=== PATIENT | female | born 1970 | race Caucasian/White ===

== ENCOUNTER 2025-04-30 09:41 | Outpatient (CLI) | payer MEDICARE, SELFPAY ==
--- OUTSIDE RECORDS SUMMARY | 2024-11-13 07:30 | XMS_ITS ---
Author Organization [employer] [facility] Address [address] [place] [address] Care Team Providers Care Food Service Manager Name Role Phone Marvel Grayson MD Unavailable [phone] REASON FOR VISIT B12 Medications Medication SIG [...] Active Encounters Encounter Location Date Provider Diagnosis [address] [address] 11/13/2024 Marvel Grayson Vitamin B12 deficien cy [...] Notes * Tiffanie SHABAZZDOB:1970 (54 yo F)Acc No.[id number]:11/13/2024 Progress Note Patient: Tiffanie Marinelli Provider: Mendoza Grayson M.D. :1970 A ge:54 Y S ex:Female Date:11/13/2024 Address:[address] [place], [place] [id number] Subjective: * Chief Complaints: * B 12 [...] deltoid * Procedure Codes: J 3420 Vitamin B-[id number] Therapeutic Injection * Follow Up: p clinton Billing Information: * Procedure Codes: J3420 Vitamin B-12. 59387 Therapeutic Injection. * Electronic signature of Alisson Grayson MD, MD on 04/30/2025 at 09:50 AM EDT Sign off status: Pending * Provider: Mendoza Grayson M.D. Date: 11/13/2024 Generated for Sarabjit zavala/Taisha/Abelino on: 0 04/30/2025 09:50 AM EDT
--- OUTSIDE RECORDS SUMMARY | 2025-02-07 17:30 | XMS_ITS ---
Author Organization [employer] [facility] Address [address] [place] [address] Care Team Providers Care Reel Repairer Name Role Phone Migration, Provider Unavailable Unavailable [...] Activ e REASON FOR VISIT [facility] Encounter Medications Medication SIG (Take, [...] review and pick correct strength-formulat ion from [facility]. If intended option is not shown, discontinue and re-order from Quick Search* 01/23/2023 Not-Taking/ PRN Vitamin D3 125 MCG CAPSULE 1 CAP(S) ORALLY ONCE A DAY; Duration: 90 DAYS *Please review and pick correct strength-formulat ion from [email or web address] options. If intended option is not shown, [...] review and pick correct strength-formulat ion from [email or web address] options. If intended option is not shown, [...] Active Encounters Encounter Location Date Provider Diagnosis [address] [place] [address] 02/07/2025 Provider Migration Plan Of Treatment No Information Progress Notes * Tiffanie GRANTDOB:1970 (54 yo F)Acc No.[id number]:02/07/2025 Patient: Tiffanie Marinelli Provider: :1970 A ge:54 Y S ex:Female Date:02/07/2025 Address:[address] [place] [address] Subjective: * Chief Complaints: * [facility] En[facility] * Medications: T akingBudesonide [...] *Please review and pick correct strength-formulation from [employer] options. If intended option is not shown, [...] *Please review and pick correct strength-formulation from [employer] options. If intended option is not shown, [...] *Please review and pick correct strength-formulation from [email or web address] options. If intended option is not shown, [...] *Please review and pick correct strength-formulation from [email or web address] options. If intended option is not shown, [...] *Please review and pick correct strength-formulation from [email or web address] options. If intended option is not shown, discontinue and re-order from Quick Search*Albuterol Sulfate (2.5 MG/3ML) 0.083% Nebulization Solution 3 mL by nebulizer every 6 hours Not-Taking/PRN tiZANidine HCl 2 MG Tablet 1 tab orally bedtime prn Not-Taking/PRN Proventil HFA 90 MCG/INH AEROSOL 2 PUFF(S) INHALED EVERY 6 HOURS , Notes to Pharmacist: *Please review and pick correct strength-formulation from [employer] options. If intended option is not shown, discontinue and re-order from Quick Search*Not-Taking/PRN Albuterol Sulfate (2.5 MG/3ML) 0.083% Nebulization Solution 3 mL by nebulizer every 6 hours * Allergies: C odeine: anaphylaxisUltram: anaphylaxisHaldol: anaphylaxisCymbalta: Side EffectsVraylar: Side EffectsDoxycycline: stomach upset * Electronic signature of Prov ider Migration on 04/30/2025 at 09:50 AM EDT Sign off status: Pending * Provider: Date: 0 02/07/2025 Generated for Sarabjit zavala/Taisha/Roseanneitting on: 04/30/2025 09:50 AM EDT
--- NOTE | 2025-04-30 09:47 | MR_ITS ---
FINAL REPORT TECHNIQUE: Multiplanar and multisequence MR imaging was obtained through the thoracic spine. CLINICAL HISTORY: STENT ARCHANA SCREWS L5-S1 THORACIC PAIN FINDINGS: There is normal alignment of the thoracic vertebral bodies in the sagittal plane. Vertebral body height is preserved. There is no bone marrow edema or pathologic marrow replacement. Signal intensity within the substance of the spinal cord is normal. Limited images of the lungs bilaterally show upper lobe predominant pulmonary nodules. Nodule in the left upper lobe measures 10 mm. There is a right paracentral T12-L1 disc protrusion with mild central stenosis and mild right neuroforaminal narrowing. There is a small left paracentral T6-7 disc protrusion with mild central stenosis. There is a right paracentral T7-8 disc protrusion with mass effect upon the thecal sac and right side of the spinal cord. There is mild central stenosis. IMPRESSION: Pulmonary nodules could be infectious, inflammatory, or neoplastic. Recommend chest CT follow-up. Multilevel disc protrusions as detailed above. Reviewed, Interpreted and Dictated by Nory Cobos MD Transcribed by Alise Miller Authenticated and [facility]
--- OUTSIDE RECORDS SUMMARY | 2025-04-30 09:49 | XMS_ITS | Clinical Summary ---
Author Organization [employer] [facility] Address [address] [place] [address] Phone Care Team Providers Care Sales Representative Metals Name Role Phone Becky CORONADO, Amie Primary Care Physician [phone] Conditions or Problems Problem Name Problem Code Onset Date Status Entry Date Provider Comment Standard Description Annotate Counseling for nutrition Z71.3 (ICD-10-CM ) 05/15 Inactive 05/20 Amie Pena MD Dietary counseling and surveillance Body mass index (BMI) 26.0-26.9; adult Z68.26 (ICD-10-CM ) 05/15 Active 05/20 Amie Pena MD Body mass index [BMI] 26.0-26.9, adult Body mass index (BMI) 26.0-26.9; adult Z68.26 (ICD-10-CM ) 05/06 Correction 05/06 Amie Pena MD Body mass index [BMI] 26.0-26.9, adult Body mass index (BMI) 26.0-26.9; adult Z68.26 (ICD-10-CM ) 05/06 Removed 05/06 Rea Saavedra APRN Body mass index [BMI] 26.0-26.9, adult Body mass index (BMI) 27.0-27.9; adult Z68.27 (ICD-10-CM ) 12/26 Correction 12/30 Rea Saavedra APRN Body mass index [BMI] 27.0-27.9, adult Bronchitis, acute 84267230 (SNOMED CT) 05/06 Inactive 05/06 Rea Saavdera APRN Acute bronchitis Herpes simplex, oral 683685619 (SNOMED CT) 05/06 Active 05/06 Rea Saavedra APRN Oral herpes simplex infection Body mass index (BMI) 27.0-27.9; adult Z68.27 (ICD-10-CM ) 12/26 Removed 12/30 Amie Pena MD Body mass index [BMI] 27.0-27.9, adult Body mass index (BMI) 26.0-26.9; adult Z68.26 (ICD-10-CM ) 11/01 Correction 11/01 Amie Pena MD Body mass index [BMI] 26.0-26.9, adult Tobacco User 939175004 (SNOMED CT) 12/26 Active 12/26 Amie Pena MD Tobacco user Body mass index (BMI) 26.0-26.9; adult Z68.26 (ICD-10-CM ) 11/01 Removed 11/01 Amie Pena MD Body mass index [BMI] 26.0-26.9, adult Counseling for nutrition Z71.3 (ICD-10-CM ) 11/01 Inactive 11/01 Amie Pena MD Dietary counseling and surveillance Body mass index (BMI) 28.0-28.9; adult Z68.28 (ICD-10-CM ) Correction Amie Pena MD Body mass index [BMI] 28.0-28.9, adult Hx of STEMI 986732866 (SNOMED CT) 10/24 Active 10/26 Charissa Breen APRN History of artificial heart valve S/P STENT Health maintenance 16549081 (SNOMED CT) Resolved Charissa Breen APRN History AND physical examination Health maintenance 30198224 (SNOMED CT) Removed Amie Pena MD History AND physical examination Body mass index (BMI) 28.0-28.9; adult Z68.28 (ICD-10-CM ) Removed Amie Pena MD Body mass index [BMI] 28.0-28.9, adult Counseling for nutrition Z71.3 (ICD-10-CM ) Inactive Amie Pena MD Dietary counseling and surveillance Body mass index (BMI) 27.0-27.9; adult Z68.27 (ICD-10-CM ) 05/13 Correction 05/14 Amie Pena MD Body mass index [BMI] 27.0-27.9, adult Counseling for nutrition Z71.3 (ICD-10-CM ) 05/13 Inactive 05/14 Nora Borrero APRN PMHNP Dietary counseling and surveillance Body mass index (BMI) 27.0-27.9; adult Z68.27 (ICD-10-CM ) 05/13 Removed 05/14 Nora Borrero APRN PMHNP Body mass index [BMI] 27.0-27.9, adult Body mass index (BMI) 27.0-27.9; adult Z68.27 (ICD-10-CM ) 04/08 Correction 04/08 Nora Borrero APRN, PMHNP Body mass index [BMI] 27.0-27.9, adult Body mass index (BMI) 27.0-27.9; adult Z68.27 (ICD-10-CM ) 04/08 Removed 04/08 Nora Borrero APRN, PMHNP Body mass index [BMI] 27.0-27.9, adult Body mass index (BMI) 28.0-28.9; adult Z68.28 (ICD-10-CM ) 02/08 Correction 02/09 Nora Borrero APRN, PMHNP Body mass index [BMI] 28.0-28.9, adult Vitamin deficiency 87714453 (SNOMED CT) 04/08 Active 04/08 Nora Borrero APRN PMHNP Vitamin deficiency Body mass index (BMI) 28.0-28.9; adult Z68.28 (ICD-10-CM ) 02/08 Removed 02/09 Nora Feck STUDIO OPERATIONS MANAGER, PMHNP Body mass index [BMI] 28.0-28.9, adult Body mass index (BMI) 29.0-29.9; adult Z68.29 (ICD-10-CM ) 10/29 Correction 10/30 Nora Feck STUDIO OPERATIONS MANAGER, PMHNP Body mass index [BMI] 29.0-29.9, adult High risk medication management 026813682 (SNOMED CT) 02/08 Active 02/08 Nora Feck STUDIO OPERATIONS MANAGER, PMHNP High risk drug monitoring Anxiety disorder 733059512 (SNOMED CT) 02/08 Active 02/08 Nora Feck STUDIO OPERATIONS MANAGER, PMHNP Anxiety disorder PTSD 44988276 (SNOMED CT) 02/08 Active 02/08 Nora Feck STUDIO OPERATIONS MANAGER, PMHNP Posttraumatic stress disorder Bipolar 1 disorder, mixed 46615024 (SNOMED CT) 02/08 Active 02/08 Nora Feck STUDIO OPERATIONS MANAGER, PMHNP Mixed bipolar I disorder Axillary mass 763509086 (SNOMED CT) 01/24 Active 01/25 Amie Pena MD Mass of axilla Palpitation s, recurrent 06946532 (SNOMED CT) 10/29 Resolved 10/29 Charissa Breen APRN Palpitations Cough 61063564 (SNOMED CT) 09/18 Resolved 09/18 Charissa Breen APRN Cough Acquired absence of both cervix and uterus 360211119 (SNOMED CT) 03/02 Resolved 02/05 Charissa Breen APRN Total hysterectomy Health maintenance 19024237 (SNOMED CT) 02/05 Resolved 02/05 Charissa Breen APRN History AND physical examination Body mass index (BMI) 29.0-29.9; adult Z68.29 (ICD-10-CM ) 10/29 Removed 10/30 Amie Pena MD Body mass index [BMI] 29.0-29.9, adult Subcutaneou s mass of back 676323410 (SNOMED CT) 10/29 Active 10/30 Amie Pena MD Mass of skin Palpitation s, recurrent 99291531 (SNOMED CT) 10/29 Active 10/30 Amie Pena MD Palpitations Family hx of coronary arterioscle rosis (CAD) 342217513 (SNOMED CT) 10/29 Active 10/29 Amie Pena MD Family history of coronary arterioscleros is Cancer, family hx 207527533 (SNOMED CT) 10/29 Active 10/29 Amie Pena MD Family history of malignant neoplasm Palpitation s, recurrent 70007763 (SNOMED CT) 10/29 Removed 10/29 Amie Pena MD Palpitations Body mass index (BMI) 29.0-29.9; adult Z68.29 (ICD-10-CM ) 09/30 Correction 09/30 Amie Pena MD Body mass index [BMI] 29.0-29.9, adult Joint pain, hand 792379138 (SNOMED CT) 10/29 Active 10/29 Amie Pena MD Pain of joint of hand Localized swelling on back 035914109 (SNOMED CT) 10/29 Active 10/29 Amie Pena MD Finding of back Body mass index (BMI) 29.0-29.9; adult Z68.29 (ICD-10-CM ) 09/30 Removed 09/30 Amie Pena MD Body mass index [BMI] 29.0-29.9, adult Body mass index (BMI) 29.0-29.9; adult Z68.29 (ICD-10-CM ) 05/03 Correction 05/03 Amie Pena MD Body mass index [BMI] 29.0-29.9, adult Cough 52571107 (SNOMED CT) 09/18 Removed 09/18 Amie Pena MD Cough Body mass index (BMI) 29.0-29.9; adult Z68.29 (ICD-10-CM ) 05/03 Removed 05/03 Amie Pena MD Body mass index [BMI] 29.0-29.9, adult Body mass index (BMI) 28.0-28.9; adult Z68.28 (ICD-10-CM ) 02/05 Correction 02/05 Amie Pena MD Body mass index [BMI] 28.0-28.9, adult Chronic pain 89560877 (SNOMED CT) 05/03 Active 05/03 Amie Pena MD Chronic pain 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 05/03 Amie Pena 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 850338298 (SNOMED CT) 03/02 Active 02/05 Amie Pena MD Total hysterectomy Acquired absence of both cervix and uterus 356691525 (SNOMED CT) 03/02 Removed 02/05 Amie Pena MD Total hysterectomy Body mass index (BMI) 28.0-28.9; adult Z68.28 (ICD-10-CM ) 02/05 Removed 02/05 Amie Pena MD Body mass index [BMI] 28.0-28.9, adult Health maintenance 17393006 (SNOMED CT) 02/05 Removed 02/05 Amie Pena MD History AND physical examination Exposure to hepatitis C 057640148 (SNOMED CT) 02/05 Active 02/05 Amie Pena MD Exposure to Hepatitis C virus COPD 41870899 (SNOMED CT) 02/05 Active 02/05 Amie Pena MD Chronic obstructive pulmonary disease Asthma 196031878 (SNOMED CT) 02/05 Active 02/05 Amie Pena MD Asthma Medications Medication Instructions Start Date Stop Date Generic Name NDC Provider CEPHALEXIN 500 MG CAPS Take 1 capsule by mouth three times a day cephalexin 07890730441 Amie Pena MD ACYCLOVIR 5 % CREA Apply 1 a small amount to affected area five times a day for four days. START SOON POSSIBLE AFTER ONSET OF COLD SORES. acyclovir 72251398175 Rea Saavedra APRN ZITHROMAX Z-KISHAN 250 MG TABS Take 2 tablet by mouth once a day as directed 2 tablets for 1 day then 1 tablet once a day for 4 days. TAKE WITH FOOD. azithromycin 18494199991 Rea Saavedra APRN TIZANIDINE HCL 2 MG TABS TAKE 1 TABLET BY MOUTH THREE TIMES A DAY NEEDED FOR MUSCLE PAIN. 02/13 tizanidine 05588011438 Mickie Florence APRN TIZANIDINE HCL 2 MG TABS TAKE 1 TABLET BY MOUTH 3 TIMES A DAY NEEDED FOR MUSCLE PAIN tizanidine 58647213104 Amie Pena MD TIZANIDINE HCL 2 MG TABS TAKE 1 TABLET BY MOUTH THREE TIMES A DAY NEEDED FOR MUSCLE PAIN. tizanidine 77992106814 Amie Pena MD ATIVAN 0.5 MG TABS Take half or 1 tablet twice a day as needed for anxiety. lorazepam 09963541862 Amie Pena MD ISOSORBIDE MONONITRATE ER 60 MG [id number] Take 1 tablet by mouth every morning isosorbide mononitrate 42173658639 Rea Saavedra APRN ALBUTEROL SULFATE HFA 108 (90 Base) MCG/ACT AERS Inhale 2-4 puff every four hours as needed albuterol sulfate 56627105554 Amie Pena MD TRAZODONE HCL 50 MG TABS 0.5-2 tablet by mouth at bedtime as directed : take approx 30min prior to bedtime as needed 11/01 trazodone 26197773974 Nora Borrero APRN, PMHNP LINZESS 145 MCG CAPS Take 1 capsule by mouth once a day 11/01 linaclotide 32326829635 Amie Pena MD SHINGRIX 50 MCG/0.5ML SUSR Inject 1/2 ml intramuscularly single dose 11/01 varicella-zoster ge-as01b (pf) 71040239079 Amie Pena MD LATUDA 40 MG TABS Take 1 tablet by mouth every night with meals take with at least 250 calories 11/01 lurasidone 56168580466 Nora Feck STUDIO OPERATIONS MANAGER, PMHNP ALBUTEROL SULFATE HFA 108 (90 Base) MCG/ACT AERS Take 2 puff every four hours as needed 11/01 albuterol sulfate 77464710944 Erinn Casanova CMA TOPIRAMATE 25 MG TABS topiramate 74506238964 Na Son MA NITROGLYCERIN 0.4 MG SUBL nitroglycerin 39649094927 Na paiz MA IBUPROFEN 800 MG TABS TAKE 1 TABLET BY MOUTH EVERY 8 HOURS NEEDED 10/26 ibuprofen 78644406711 Amie Pena MD METOPROLOL TARTRATE 25 MG TABS metoprolol tartrate 72908201541 Charissa Breen APRN ATORVASTATIN CALCIUM 80 MG TABS atorvastatin 94038584030 Charissa Breen APRN BRILINTA 90 MG TABS BID ticagrelor 16339200107 Charissa Breen APRN TIZANIDINE HCL 2 MG TABS Take 1 tablet by mouth three times a day as needed for pain TAKE 1 TABS THREE TIMES A DAY NEEDED FOR MUSCLE PAIN. 10/23 tizanidine 11463026108 Amie Pena MD TIZANIDINE HCL 2 MG TABS TAKE 1 TABLET BY MOUTH THREE TIMES A DAY NEEDED FOR MUSCLE PAIN. tizanidine 67580063432 Amie Pena MD LORATADINE 10 MG TABS TAKE 1 TABLET BY MOUTH 1 TIME A DAY NEEDED FOR ALLERGIES loratadine 15436434994 Amie Pena MD IBUPROFEN 800 MG TABS TAKE 1 TABLET BY MOUTH EVERY 8 HOURS NEEDED ibuprofen 33276374098 Amie Pena MD IBUPROFEN 800 MG TABS TAKE 1 TABLET BY MOUTH EVERY 8 HOURS NEEDED ibuprofen 02119391756 Amie Pena MD CLARITIN 10 MG TABS Take 1 tablet by mouth once a day as needed 09/25 loratadine 16662386472 Ernin Casanova MICROCOMPUTER SUPPORT SPECIALIST LORATADINE 10 MG TABS TAKE 1 TABLET BY MOUTH 1 TIME A DAY NEEDED FOR ALLERGIES loratadine 23836037290 Amie Pena MD VITAMIN B-12 1000 MCG TABS Take 1 tablet by mouth once a day cyanocobalamin (vitamin b-12) 65680732046 Amie Pena MD TIZANIDINE HCL 2 MG TABS TAKE 1 TABS THREE TIMES A DAY NEEDED FOR MUSCLE PAIN. tizanidine 99488649988 mAie Pena MD SHINGRIX 50 MCG/0.5ML SUSR Inject 1/2 ml intramuscularly single dose varicella-zoster ge-as01b (pf) 26211611630 Amie Pena MD TIZANIDINE HCL 2 MG TABS Take 1 tablet by mouth three times a day as needed for pain TAKE 1 TABS THREE TIMES A DAY NEEDED FOR MUSCLE PAIN. tizanidine 14949343225 Amie Pena MD LINZESS 145 MCG CAPS Take 1 capsule by mouth once a day linaclotide 03896251472 Amie Pena MD VITAMIN B-12 1000 MCG TABS Take 1 tablet by mouth once a day cyanocobalamin (vitamin b-12) 56795145165 Amie Pena MD HYDROCODONE-KIRSTIE TAMINOPHEN 7.5-325 MG TABS Take 1 tablet by mouth every six hours as needed hydrocodone-acet aminophen 33690933207 Garima Fitzpatrick MA GABAPENTIN 300 MG CAPS Take 1 capsule by mouth twice a day as needed for pain gabapentin 21488303295 Garima Fitzpatrick MA TRAZODONE HCL 50 MG TABS 0.5-2 tablet by mouth at bedtime as directed : take approx 30min prior to bedtime as needed trazodone 73485273676 Nora Feck STUDIO OPERATIONS MANAGER, PMHNP QUETIAPINE FUMARATE 50 MG TABS 0.5-2 tablet by mouth at bedtime as needed 05/05 quetiapine 45849153114 Nora Feck STUDIO OPERATIONS MANAGER, PMHNP QUETIAPINE FUMARATE 50 MG TABS TAKE 0.5-2 TABLET BY MOUTH AT BEDTIME NEEDED quetiapine 43147780547 Nora Feck STUDIO OPERATIONS MANAGER, PMHNP GABAPENTIN 300 MG CAPS Take 1 capsule by mouth twice a day as needed for pain gabapentin 69646432455 Allison Wild MA HYDROCODONE-KIRSTIE TAMINOPHEN 7.5-325 MG TABS Take 1 tablet by mouth every six hours as needed hydrocodone-acet aminophen 69729779274 Allison Wild MA TIZANIDINE HCL 2 MG TABS Take 1 tablet by mouth three times a day as needed 03/04 tizanidine 43438542684 Charissa Breen APRN TIZANIDINE HCL 2 MG TABS TAKE 1 TABS THREE TIMES A DAY NEEDED FOR MUSCLE PAIN. tizanidine 12727081885 Amie Pena MD QUETIAPINE FUMARATE 50 MG TABS 0.5-2 tablet by mouth at bedtime as needed quetiapine 41199983694 Nora Jesúskyara STUDIO OPERATIONS MANAGER, PMHNP LATUDA 40 MG TABS Take 1 tablet by mouth every night with meals take with at least 250 calories lurasidone 61951269148 Nora Jesúskyara STUDIO OPERATIONS MANAGER, PMHNP IBUPROFEN 800 MG TABS Take 1 tablet by mouth every eight hours as needed 01/24 ibuprofen 90777678021 Amie Pena MD IBUPROFEN 800 MG TABS TAKE 1 TABLET BY MOUTH EVERY 8 HOURS NEEDED ibuprofen 43689525510 Amie Pena MD INCRUSE ELLIPTA 62.5 MCG/ACT AEPB Use 1 once a day umeclidinium 99379771480 Amie Pena MD TIZANIDINE HCL 2 MG TABS Take 1 tablet by mouth three times a day as needed tizanidine 56050379850 Charissa Breen APRN SYMBICORT 160-4.5 MCG/ACT AERO Use 2 twice a day budesonide-formo terol 03092799911 Amie Pena MD CLARITIN 10 MG TABS Take 1 tablet by mouth once a day as needed loratadine 15622214347 [facility] ALBUTEROL SULFATE HFA 108 (90 Base) MCG/ACT AERS Take 2 puff every four hours as needed albuterol sulfate 95064667492 Erinn Edilberto CMA IBUPROFEN 800 MG TABS Take 1 tablet by mouth every eight hours as needed ibuprofen 07444705902 Amie Pena MD HYDROCODONE-KIRSTIE TAMINOPHEN 5-325 MG TABS Take 1 tablet by mouth every six hours as needed hydrocodone-acet aminophen 24385933373 Amie Pena MD GABAPENTIN 300 MG CAPS Take 1 capsule by mouth at bedtime as needed for pain gabapentin 88026861348 Erinn Casanova [facility] TIZANIDINE HCL 2 MG TABS TAKE 1 TABS THREE TIMES A DAY NEEDED FOR MUSCLE PAIN. TIZANIDINE HCL 03425794058 Amie Pena MD TIZANIDINE HCL 2 MG TABS take 1 capsule three times a day as needed for muscle pain. TIZANIDINE HCL 91909274231 Amie Pena MD IBUPROFEN 800 MG TABS TAKE 1 TABLET BY MOUTH EVERY 8 HOURS NEEDED IBUPROFEN 72511585817 Amie Pena MD ZANAFLEX 4 MG ORAL CAPSULE take 1 capsule three times a day as needed for muscle pain. TIZANIDINE HCL 02849014260 Amie Pena MD SYMBICORT 160-4.5 MCG/ACT AERO USE 2 INHALATIONS TWICE A DAY BUDESONIDE-FORMO TEROL FUMARATE 72051093022 Amie Pena MD INCRUSE ELLIPTA 62.5 MCG/ACT AEPB USE 1 INHALATION ONCE A DAY UMECLIDINIUM BROMIDE 79007916571 Amie Pena MD SPIRIVA HANDIHALER 18 MCG CAPS USE 1 INHALATION ONCE A DAY 09/30 TIOTROPIUM BROMIDE MONOHYDRATE 30864789186 Amie Pena MD BREO ELLIPTA 100-25 MCG/ACT AEPB USE 1 INHALATION ONCE A DAY 09/30 FLUTICASONE FUROATE-VILANTER OL 07660329701 Amie Pena MD ZITHROMAX Z-KISHAN 250 MG TABS TAKE 2 TABLETS BY MOUTH ON DAY 1 THEN 1 TABLET BY MOUTH DAILY FOR 4 DAYS (DAY 2-5) 09/23 AZITHROMYCIN 30531706049 Amie Pena MD HYDROCODONE-KIRSTIE TAMINOPHEN 5-325 MG TABS take 1 tablet every 6 hours as needed for pain. HYDROCODONE-ACET AMINOPHEN 46686356137 Amie Pena MD ALBUTEROL SULFATE HFA 108 (90 Base) MCG/ACT AERS TAKE 2 PUFFS EVERY 4 HOURS NEEDED FOR WHEEZING ALBUTEROL SULFATE 59665185447 Amie Pena MD NYSTATIN 393900 UNIT/GM CREA APPLY THIN FILM 3 TIMES A DAY FOR 2 WEEKS 02/19 NYSTATIN 29640852343 Amie Pena MD CLARITIN 10 MG TABS TAKE 1 TABLET BY MOUTH 1 TIME A DAY NEEDED FOR ALLERGIES LORATADINE 89025196423 Amie Pena MD SPIRIVA HANDIHALER 18 MCG CAPS USE 1 INHALATION ONCE A DAY TIOTROPIUM BROMIDE MONOHYDRATE 79919809531 Amie Pena MD BREO ELLIPTA 100-25 MCG/ACT AEPB USE 1 INHALATION ONCE A DAY FLUTICASONE FUROATE-VILANTER OL 37449792183 Amie Pena MD Medications Administered No information available. Allergies, Adverse Reactions, Alerts Allergy Name Reaction Description Start Date Severity Statu s Provider DOXYCYCLINE Critical Active Amie evans MD PENICILLIN Critical Active Amie angeles MD ULTRAM Critical Active Amie garcia MD VRAYLAR Critical Active Amie garcia MD HALDOL Critical Active Amie garcia MD CODEINE Critical Active Amie garcia MD Results Date Name Value Unit Range Flag Description Lab Report: LIPID PANEL WITH REFLEX TO DIRECT LDL, LIPID PANEL WITH REFL ... HEP C AB NON-REACTIVE NON-REACTIV E N Hepatitis C virus Ab [Presence] in Serum HB CORE IGM NON-REACTIVE NON-REACTIV E N Hepatitis B virus core IgM Ab [Presence] in Serum HBSAG NON-REACTIVE NON-REACTIV E N Hepatitis B virus surface Ag [Units/volume] in Serum ANTI-HAV IGM NON-REACTIVE NON-REACTI V E N Hepatitis A virus IgM Ab [Presence] in Serum Lab Report: COMPREHENSIVE ME TABOLIC PANEL, SED RATE BY MODIFIED WESTERGR ... RA FACTOR <14 IU/mL [iU]/mL <14 N Rheumatoi d factor [Units/volume] in Serum or Plasma TORRES HOMO PAT NEGATIVE NEGATIVE N TORRES (a ntinuclear antibody) pattern, homogeneous ESR 11 mm/h < OR = 30 N Erythrocyte sedimentation rate by Westergren method Lab Report: LIPID PANEL WITH REFLEX TO DIRECT LDL, LIPID PANEL WITH REFL ... HGBA1C 5.5 % OF TOTAL HGB % <5.7 N Hemoglobin A1c/Hemoglobin, total in Blood - % VITAMIN D3 44 pg/mL 1,25-calci trol, serum VIT D 1,25OH 44 18-72 vitamin D 1,25-dihydroxy, serum FOLATE 9.3 ng/mL N Folate [Mass/volume] in Serum or Plasma BILI INDIREC 0.4 MG/DL (CALC) mg/dL 0.2-1.2 N bilirubin, serum , indirect BILI DIRECT 0.1 mg/dL < OR = 0.2 N Biliru bin.direct [Mass/volume] in Serum or Plasma TSH 0.81 u[iU]/m L N Thyrotropin [Units/volume] in Serum or Plasma B12 369 pg/mL 200-1100 N Cobalamin (V itamin B12) [Mass/volume] in Serum or Plasma BASO % MANU 0.5 % N basophils as percent of blood leukocytes, manual count EOS % MANU 2.3 % N eosinophil s as percent of blood leukocytes, manual count MONOCYTE % 6.7 % N Monocytes/ 100 leukocytes in Blood by Automated count LYMPH% P BLD 32.6 % N lymphocy pat as percent of blood leukocytes PMN % 57.9 % N Neutrophils/1 00 leukocytes in Blood by Automated count ABS BASOS 48 {Cells} /uL 0-200 N Basophils [#/volume] in Blood ABS EOS 221 {Cells} /uL 15-500 N Eosinophils [#/volume] in Blood ABS MONOS 643 {Cells} /uL 200-950 N Monocytes [#/volume] in Blood ABSLYMPHCT 3130 {Cells} /uL 850-3900 N Lymphocytes [#/volume] in Blood ABS NEUTROPH 5558 CELLS/UL 10*3/uL 6531-2958 N Neutrophils [#/volume] in Blood MPV 9.8 fL 7.5-12.5 N Platelet anette n volume [Entitic volume] in Blood by Sarah PLATELETK/UL 411 THOUSAND/UL 10*3/uL 140-400 H platelet count RDW 13.2 % 11.0-15.0 N Erythrocyte distribution width [Ratio] by Automated count OL-MCHC 33.3 g/dL 32.0-36.0 N mean corpus cular hemoglobin concentration, rbc MCH 29.6 pg 27.0-33.0 N MCH [Entiti c mass] by Automated count MCV 88.7 fL 80.0-100.0 N MCV [Entit ic volume] by Automated count HCT 40.8 % 35.0-45.0 N Hematocrit [Volume Fraction] of Blood by Automated count HGB 13.6 g/dL 11.7-15.5 N Hemoglobin [Mass/volume] in Blood RBC M/UL 4.60 MILLION/UL 10*6/uL 3.80-5.10 N red blood count WBC CT BLOOD 9.6 10*3/uL 3.8-10.8 N leukocy te count, blood SGPT (ALT) 16 U/L 6-29 N Alanine aminotransferase [Enzymatic activity/volume] in Serum or Plasma SGOT (AST) 19 U/L 10-35 N Aspartate aminotransferase [Enzymatic activity/volume] in Serum or Plasma ALK PHOS 106 U/L 37-153 N Alkaline phosphatase [Enzymatic activity/volume] in Blood BILI TOTAL 0.5 mg/dL 0.2-1.2 N Bilirubin. total [Mass/volume] in Serum or Plasma A/G RATIO 1.7 (calc) 1.0-2.5 N Albumin/ Globulin [Mass Ratio] in Serum or Plasma GLOBULIN TOT 2.5 G/DL (CALC) g/dL 1.9-3.7 N Globulin [Mass/volume] in Serum ALBUMIN EOP 4.3 g/dL 3.6-5.1 N Albumin [Mass/volume] in Serum or Plasma by Electrophoresis PROTEIN, TOT 6.8 g/dL 6.1-8.1 N Protein [Mass/volume] in Serum or Plasma CALCIUM 9.3 mg/dL 8.6-10.4 N Calcium [Moles/volume] in Serum or Plasma CO2 23 mmol/L 20-32 N Carbon dioxid e, total [Moles/volume] in Venous blood CHLORIDE BLD 108 mmol/L 98-110 N chloride , blood POTASSIUM 4.3 mmol/L 3.5-5.3 N Potassium [Moles/volume] in Serum or Plasma SODIUM 140 mmol/L 135-146 N Sodium [Moles/volume] in Serum or Plasma BUN/CREAT NOT APPLICABLE (calc) 6-22 Urea nitrogen/Creatinine [Mass Ratio] in Serum or Plasma EGFR IF AFA 116 mL/min/ 1.73m2 >OR = 60 N Glomerular filtration rate/1.73 sq M.predicted among blacks [Volume Rate/Area] in Serum, Plasma or Blood by Creatinine-based formula (MDRD) EGFR 100 mL/min/ 1.73m2 >OR = 60 N Glomerular filtration rate/1.73 sq M.predicted [Volume Rate/Area] in Serum, Plasma or Blood by Creatinine-based formula (MDRD) CREATININE 0.67 mg/dL 0.50-1.05 N Creatini ne [Mass/volume] in Serum or Plasma BUN 9 mg/dL 7-25 N Urea nitrogen [Mass/volume] in Serum or Plasma GLUCOSE SER 76 mg/dL 65-99 N Glucose [Mass/volume] in Serum or Plasma NON-HDL CHOL 90 MG/DL (CALC) mg/dL <130 N cholesterol, non-HDL, total CHOL/HDL % 3.0 (calc) <5.0 N cholest ja/HDL ratio, serum, percent LDL 70 MG/DL (CALC) mg/dL N Cholesterol in L DL [Mass/volume] in Serum or Plasma - mg/dL TRIGLYC TOT 122 mg/dL <150 N Triglycer margarita [Mass/volume] in Serum or Plasma - mg/dL HDL 46 mg/dL >OR = 50 L Cholesterol in HDL [Mass/volume] in Serum or Plasma - mg/dL CHOLESTEROL 136 mg/dL <200 N Cholester ol [Mass/volume] in Serum or Plasma - mg/dL Lab Report: DRUG MONITOR, PA BRIDGETT 1, SCREEN, URINE, DRUG MONITOR, BUP, SCR ... PHENCYCLIDIN NEGATIVE ng/mL <25 N Phencyc lidine [Presence] in Urine OXYCODONE NEGATIVE <100 N Oxycodone urine screening METHADONEURN NEGATIVE <100 N Methado ne [Presence] in Urine by Screen method MARIJUANAURN POSITIVE <20 A Marijua na, cannabinoid screen Urine COCAINE UR NEGATIVE <150 N cocaine, urine BENZODIAZ UR NEGATIVE <100 N Benzodi azepines [Presence] in Urine AMPHETAMI UR NEGATIVE <500 N Ampheta mines [Presence] in Urine Plan of Care Type Date Detail Referral [employer] ([employer]) Referral General Surgery Referral General Referral excluded fr om report: Referral Cardiology Refer ral General Referral Pain Management Referral General Referral excluded fr om report: Referral Pain Management Referral General Referral excluded fr om report: Pending order T1 Drug Screen S TANDARD-Urine w/o Confirmation Pending order T1 B12 Pending order T1 CBC with diff Pending order T1 CMP Pending order T1 Lipid Panel Pending order T1 TSH reflex to free T4 Pending order T1 B12 Pending order T1 CBC with diff Pending order T1 CMP Pending order T1 Folic Acid Pending order T1 Hepatic Funct ion Panel Pending order T1 HGBA1c Pending order T1 Lipid Panel Pending order T1 TSH reflex to free T4 Pending order T2 Vitamin D 25 Dihydroxy Pending order T1 CBC with diff Pending order T1 CMP Pending order T2 TORRES Pending order T2 Rheumatoid Fa ctor Quant Pending order T1 Sedimentation Rate RBC Pending order X-Ray Thoracic S pine Pending Order exclud ed from report: Pending order T1 CBC with diff Pending order T1 CMP Pending order T1 HGBA1c Pending order T1 Lipid Panel Pending order T1 TSH reflex to free T4 Pending order T1 Acute Hepatit s Panel Pending order Injection(s) Ord ered Pending order Patient Pay- COV [id number] Pending order X-Ray Chest Pending order T1 Drug Screen S TANDARD-Urine w/o Confirmation Pending order T1 CBC with diff Pending order T1 CMP Pending order T1 Acute Hepatit s Panel Pending order T1 Lipid Panel Pending order T1 TSH reflex to free T4 Patient education Patient Educat ion Given Patient education Patient Educat ion Given Patient education Patient Educat ion Given Patient education Patient Educat ion Given Patient education Patient Educat ion Given Patient education Patient Educat ion Given Patient education Patient Educat ion Given Patient education Patient Educat ion Given Patient education Patient Educat ion Given Patient education Patient Educat ion Given Procedures Code Procedure Name Date Entry Date [facility][id number] Medication Reconciliation Inj Order Injection(s) Ordered [id number] 340B Depo medrol 80mg/ml Injection 2021/05/15 CPT-3074F Most recent systolic blood pressure <130 mm Hg CPT-3078F Most recent diastoli c blood pressure <80 mm Hg [id number] Medication Reconciliation CPT-3074F Most recent systolic blood pressure <130 mm Hg CPT-3078F Most recent diastoli c blood pressure <80 mm Hg [id number] Giving encouragement to exercise [id number] Dietary management education/guidance/counseling [place]PT II 4004F Patient screened for tobacco use and received tobacco cessation intervention [id number] Medication Reconciliation CPT-1159F Medication list docu mented in medical record CPT-1160F Review of all medica tions by a prescribing practitioner [facility] G1543 T1 Drug Screen STAND RACHELE-Urine w/o Confirmation [id number] Giving encouragement to exercise SCT-[id number] Medication Reconciliation CPT-3074F Most recent systolic blood pressure <130 mm Hg CPT-3078F Most recent diastoli c blood pressure <80 mm Hg CPT-1159F Medication list docu mented in medical record CPT-1160F Review of all medica tions by a prescribing practitioner [facility] 927 T1 B12 [facility] 6399 T1 CBC with diff [facility] 40922 T1 CMP [facility] 10885 T1 Lipid Panel [facility] 12549 T1 TSH reflex to free T4 202 10/06/00 Inj Order Injection(s) Ordered [id number] 340B Vitamin B-12 Injection CPT-84435 Cologuard 51840 Fluzone Quadrivalent CPT-99129 IMADM >18YR IM ROUTE 1ST VAC/TOXOID 06/17 SCT-[id number] Medication Reconciliation CPT-3074F Most recent systolic blood pressure <130 mm Hg CPT-3078F Most recent diastoli c blood pressure <80 mm Hg CPT-1159F Medication list docu mented in medical record CPT-1160F Review of all medica tions by a prescribing practitioner SCT-[id number] Medication Reconciliation CPT-3075F Most recent systolic blood pressure 130-139 mm Hg CPT-3079F Most recent diastoli c blood pressure 80-89 mm Hg CPT-3075F Most recent systolic blood pressure 130-139 mm Hg CPT-3079F Most recent diastoli c blood pressure 80-89 mm Hg CPT-1159F Medication list docu mented in medical record SCT-[id number] Medication Reconciliation [facility] 927 T1 B12 [facility] 6399 T1 CBC with diff [facility] 69991 T1 CMP [facility] 466 T1 Folic Acid [facility] 32114 T1 Hepatic Function Panel 20 23/04/06 [facility] 496 T1 HGBA1c [facility] 21256 T1 Lipid Panel [facility] 67176 T1 TSH reflex to free T4 202 09/10/05 [facility] 59798 T2 Vitamin D 25 Dihydroxy 20 23/04/06 CPT-3075F Most recent systolic blood pressure 130-139 mm Hg CPT-3078F Most recent diastoli c blood pressure <80 mm Hg SCT-[id number] Medication Reconciliation GEN SX GEN General Surgery Referral General SCT-[id number] Medication Reconciliation CPT-3074F Most recent systolic blood pressure <130 mm Hg CPT-3079F Most recent diastoli c blood pressure 80-89 mm Hg CPT-1159F Medication list docu mented in medical record CPT-1160F Review of all medica tions by a prescribing practitioner SCT-[id number] Giving encouragement to exercise SCT-[id number] Current every day smoker 20 22/01/04 SCT-[id number] Smoking cessation education CPT-3075F Most recent systolic blood pressure 130-139 mm Hg CPT-3079F Most recent diastoli c blood pressure 80-89 mm Hg SCT-[id number] Medication Reconciliation SCT-[id number] Giving encouragement to exercise CPT-1159F Medication list docu mented in medical record X-Ray Hand Right X-Ray Hand Right CPT-1160F Review of all medica tions by a prescribing practitioner PAIN GEN Pain Management Referral General X-Ray Thoracic Spine X-Ray Thoracic Spine [facility] 6399 T1 CBC with diff [facility] 18787 T1 CMP [facility] 249 T2 TORRES [facility] 4418 T2 Rheumatoid Factor Quant 2 [facility] 809 T1 Sedimentation Rate RBC 20 24/10/25 CARD GEN Cardiology Referral General CPT-3075F Most recent systolic blood pressure 130-139 mm Hg CPT-3079F Most recent diastoli c blood pressure 80-89 mm Hg SCT-[id number] Medication Reconciliation SCT-[id number] Giving encouragement to exercise CPT-1159F Medication list docu mented in medical record CPT-1160F Review of all medica tions by a prescribing practitioner SCT-[id number] Current every day smoker 20 23/09/27 SCT-[id number] Smoking cessation education SCT-[id number] Smoking cessation education 55868 Flulaval Quadrivalent 09/30 CPT-39500 IMADM >18YR IM ROUTE 1ST VAC/TOXOID 09/30 [id number] 340B Depo medrol 80mg/ml Injection 09/30 Inj Order Injection(s) Ordered [facility] 6399 T1 CBC with diff [facility] 41903 T1 CMP [facility] 496 T1 HGBA1c [facility] 33543 T1 Lipid Panel [facility] 69909 T1 TSH reflex to free T4 202 09/03/27 [facility] 08282 T1 Acute Hepatits Panel 2020 CPT-1159F Medication list docu mented in medical record SCT-[id number] Medication Reconciliation SCT-[id number] Giving encouragement to exercise [facility] 82592 Patient Pay- COVID-19 09/18 X-Ray Chest X-Ray Chest SCT-[id number] Medication Reconciliation SCT-[id number] Giving encouragement to exercise CPT-3074F Most recent systolic blood pressure <130 mm Hg CPT-3078F Most recent diastoli c blood pressure <80 mm Hg PAIN GEN Pain Management Referral General CPT-1159F Medication list docu mented in medical record CPT-1160F Review of all medica tions by a prescribing practitioner [facility] F8318 T1 Drug Screen STAND RACHELE-Urine w/o Confirmation SCT-[id number] Medication Reconciliation Mammo ANAND Mammogram SCT-[id number] Giving encouragement to exercise [facility] 6399 T1 CBC with diff [facility] 96920 T1 CMP [facility] 32383 T1 Acute Hepatits Panel 2019 [facility] 65690 T1 Lipid Panel [facility] 68679 T1 TSH reflex to free T4 202 [id number] Colonoscopy Vital Signs Date Name Value Unit Description BMI (Body Mass Index) 26.74 kg/m2 Bod y Mass Index (Ratio) Body Temperature 98.0 [degF] temperat ure E&M Body Temperature 36.67 Carmelina temperat ure in centigrade E&M BP Diastolic 76 mm[Hg] blood pressu re, diastolic BP Systolic 113 mm[Hg] blood pressur e, systolic BSA (Body Surface Area) 2.09 b harjit surface area Heart Rate 89 /min pulse rate Height 71 [in_us] height E&M Height 180.34 cm height in cent imeters E&M Respiratory Rate 16 /min respirat ory rate E&M Weight Measured 86.82 kg weight in kilograms E&M Weight Measured 191 [lb_av] weight E& M Weight Measured 191 [lb_av] weight E& M Immunizations Vaccine Administration Date Standard Description CVX Co de Dose PRIVATE Flulaval Quadrivalent Prefilled Syringe 0.5 ML 6 mos - 64 years PRIVATE Flulaval Quadrivalent Prefilled Syringe 0.5 ML 6 mos - 64 years 150 0.5 mL COVID-19 mRNA (MOD) COVID-19 mRNA (MOD) 207 Unknown COVID-19 mRNA (MOD) COVID-19 mRNA (MOD) 207 Unknown Influenza Quad Inj Influenza Quad Inj 150 Unknown PPV23 PPV23 33 Unknown PRIVATE Fluzone Quadrivalent Intramuscular Suspension Prefilled Syringe 0.5 ML 6mos-64yrs PRIVATE Fluzone Quadrivalent Intramuscular Suspension Prefilled Syringe 0.5 ML 6mos-64yrs 150 0.5 mL COVID-19 mRNA (MOD) COVID-19 mRNA (MOD) 207 Unknown PRIVATE Fluzone Quadrivalent Intramuscular Suspension Prefilled Syringe 0.5 ML 6mos-64yrs PRIVATE Fluzone Quadrivalent Intramuscular Suspension Prefilled Syringe 0.5 ML 6mos-64yrs 150 0.5 mL PRIVATE Fluzone Quadrivalent Intramuscular Suspension Prefilled Syringe 0.5 ML 6mos-64yrs PRIVATE Fluzone Quadrivalent Intramuscular Suspension Prefilled Syringe 0.5 ML 6mos-64yrs 150 0.5 mL Advance Directives No information available.
--- OUTSIDE RECORDS SUMMARY | 2025-04-30 09:50 | XMS_ITS | Clinical Summary ---
Author Organization [facility] Address [address] [place] [address] Care Team Providers Care Bar Roller Name Role Phone Marvel Grayson MD Primary Care Provider [phone] Allergies Active Allergy Reactions Criticality Noted Date Comments Adhesive Tape Rash Low 07/03/2023 blisters Codeine Rash Low 07/31/2011 Duloxetine Hcl Mental Status Change Medium 10/25/2016 Doxycycline Nausea Only Low 04/04/2023 Haloperidol Lactate Rash Low 07/31/2011 Levofloxacin Unknown - Low Severity Low 04/04/2023 Nsaids GI Bleeding Medium 04/04/2023 Can tolerate if off blood thinners Penicillins Rash Low 07/31/2011 Tramadol Rash Low 10/02/2012 Cariprazine Unknown - High Severity High 10/25/2016 Medications omeprazole (PriLOSEC) 20 MG capsule Take 1 capsule by mouth As Needed. 09/27/2015 Active albuterol sulfate HFA 108 (90 Base) MCG/ACT inhaler Inhale 1-2 puffs. every 4 to 6 hours as needed 06/25/2014 Active tiZANidine (ZANAFLEX) 2 MG tablet TAKE 1 TO 2 TABLETS BY MOUTH EVERY 6 TO 8 HOURS NEEDED 60 tablet 07/17/2017 Active atorvastatin (LIPITOR) 80 MG tablet Take 1 tablet by mouth Every Night. 03/08/2023 Active gabapentin (NEURONTIN) 300 MG capsule Take 1 capsule by mouth 3 (Three) Times a Day. 03/08/2023 Active loratadine (CLARITIN) 10 MG tablet Take 1 tablet by mouth Daily. 02/05/2023 Active topiramate (TOPAMAX) 25 MG tablet Take 1 tablet by mouth Daily. 03/08/2023 Active metoprolol tartrate (LOPRESSOR) 25 MG tablet Take 1 tablet by mouth 2 (Two) Times a Day. Active HYDROcodone-alyson taminophen (NORCO) 7.5-325 MG per tablet Take 1 tablet by mouth Every 6 (Six) Hours As Needed for Moderate Pain. Active Fluticasone-Ume clidin-Vilant (Trelegy Ellipta) 100-62.5-25 MCG/ACT inhaler Inhale 1 puff Daily. Active varenicline (CHANTIX) 0.5 MG tablet Take 1 tablet by mouth 2 (Two) Times a Day. Active aspirin 81 MG EC tablet Take 1 tablet by mouth Daily. Active nitroglycerin (NITROSTAT) 0.[address] 1 tablet under the tongue Every 5 (Five) Minutes As Needed for Chest Pain. Take no more than 3 doses in 15 minutes. Active doxazosin (Cardura) 2 MG tablet Take 1 tablet by mouth Every Night. 30 tablet 1 04/04/2023 Active Methylnaltrexon e [place] (Relistor) 150 MG tablet Take 1 tablet by mouth Daily. Three tablets Active docusate sodium 100 MG capsule Take 1 capsule by mouth Daily. Active Naloxegol Oxalate (Movantik) 12.5 MG tablet Take 1 tablet by mouth Daily. 06/26/2023 Active ondansetron (ZOFRAN) 4 MG tablet Take 1 tablet by mouth As Needed. 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 04/04/2023 Hyperlipidemia LDL goal <70 04/04/2023 Tobacco use 10/25/2016 Chest pain 01/18/2016 Chronic low back pain 01/18/2016 Fibromyalgia 01/18/2016 Palpitations 01/18/2016 Spasm 01/18/2016 Osteoarthritis 01/18/2016 Sciatica 01/18/2016 Shortness of breath 01/18/2016 Immunizations Immunization Administration Dates Next Due Fluzone (or Fluarix & Flulaval for VFC) >6mos ,07/07/2019 Pneumococcal Polysaccharide (PPSV23) 03/30/2015 Family History Medical History Relation Name Comments Congenital heart disease Brother 1 Heart attack Brother 2 Lung cancer Brother 3 Heart failure Father Stroke Father Congenital heart disease Mother Diabetes Mother Breast cancer Sister 1 Breast cancer Sister 2 Cervical cancer Sister 3 Anuerysm Sister 4 Relation Name Status Comments Brother 1 Brother 2 Brother 3 Father Mother Sister 1 Sister 2 Alive Sister 3 Alive Sister 4 Social History Tobacco Use Types Packs/Day Years Used Date Smoking Tobacco: Every Day Cigarettes 1 49 Passive Smoke Exposure: Current Smokeless Tobacco: Never Alcohol Use Standard Drinks/Week Comments Not Currently 0 (1 standard drink = 0.6 oz pur e alcohol) Abuse Screen Answer Date Recorded Unsafe at Home or Work/School Not on file Feels Threatened by Someone? Not on file 05/2023 Does Anyone Keep You from Co ntacting Others or Doint Things Outside the Home? Not on file 06/11/2023 Physical Sign of Abuse Present Not on file 1 Housing Stability Answer Date Recorded Current Living Arrangements Not on file 05/2023 Potentially Unsafe Housing Conditions Not on wilmer e 06/11/2023 Family and Community Support Answer Desean e Recorded Help with Day-to-Day Activities Not on file 06/11/2023 Lonely or Isolated Not on file 06/11/2023 Employment Answer Date Recorded Do you want help finding or keeping work or a minerva b? Not on file 06/11/2023 Disabilities Answer Date Recorded Concentrating, Remembering, or Making Decisions Difficulty Not on file 06/11/2023 Doing Errands Independently Difficulty Not on fi le 06/11/2023 Education Answer Date Recorded Help with school or training? Not on file Preferred Language Not on file 06/11/2023 Comments Unknown Sex and Gender Information Value Date Recorded Sex Assigned at Not on file Legal Sex Female 11:58 AM EDT Gender Identity Not on file Sexual Orientation Not on file Last Filed Vital Signs Vital Sign Reading Time Taken Comments Blood Pressure 94/58 07/04/2023 2:49 PM EDT Pulse 63 07/04/2023 2:49 PM EDT Temperature 36.7 C (98 F) 10/25/2016 1:16 PM EST Respiratory Rate 18 04/04/2023 8:25 AM EDT Oxygen Saturation 91% 07/04/2023 2:49 PM EDT Inhaled Oxygen Concentration - - Weight 86.3 kg (190 lb 3.2 oz) 07/04/2023 2:49 P M EDT Height 175.3 cm (5' 9.02 ) 07/04/2023 2:49 PM ED T Body Mass Index 28.07 07/04/2023 2:49 PM EDT Plan of Treatment Health Maintenance Due Date Last Done Comments Annual Gynecologic Pelvic an d Breast Exam 1968 TDAP/TD VACCINES (1 - Tdap) 1987 COLOGUARD 2013 COLON CANCER SCREENING 5 YEA R SIGMOIDOSCOPY 2013 COLONOSCOPY 2013 [address]AL CANCER SCREENING 2013 CT COLONOGRAPHY 2013 FECAL OCCULT BLOOD TEST 2013 FIT Testing (1 year) 2013 ANNUAL WELLNESS VISIT 02/03/2016 HEPATITIS C SCREENING 02/03/2016 LIPID PANEL 10/25/2017 10/25/2016 ZOSTER VACCINE (2 of 2) 07/24/2023 05/29/2023 COVID-19 Vaccine (4 - 2023-2 5 season) 2024 07/15/2021, 12/27/2020, 11/30/2020 INFLUENZA VACCINE 06/03/2025 05/29/2023, , 07/07/2019 MAMMOGRAM 11/07/2025 11/08/2023, 07/0 09/2020, 02/26/2020 LUNG CANCER SCREENING Discontinued 05/16/2023 , 02/26/2020, 11/18/2018 Pneumococcal Vaccine 50+ Completed 05/29/2023, 03/04 Procedures Procedure Name Priority Date/Time Associated Diagnosis Comments SCANNED - MAMMO 11/08/2023 LIPID PANEL Routine 10/25/2016 2:01 PM EST Screening for cholesterol level from Last 3 Months or Most Recently Relevant to Health Maintenance Results * MAMMO Scan (11/08/2023) Anatomical Region Laterality Modality Other us Marvel Grayson MD CHART REVIEW TABS Final Resu lt * (ABNORMAL) Lipid Panel (10/25/2016 2:01 PM EST) Total Cholesterol 234(H) 100 - 199 mg/dL [facility] Triglycerides 84 0 - 149 mg/dL [facility] HDL Cholesterol 68 >39 mg/dL [facility] VLDL Cholesterol 17 5 - 40 mg/dL [facility] LDL Cholesterol 149(H) 0 - 99 mg/dL [facility] Blood Left upper arm structure / Unknown 10/25/2016 2:01 PM EST 10/26/2016 Comment:ARM L Narrative [facility] - 10/26/2016 11:12 AM EST Performed at: 01 - [facility] [address] [place] [address] [id number] Assistant Professor Of Education: Dhiraj Awad PhD, Phone: [phone] Iona Craig PA-C LAB BLOOD ORDERABLES Final Result [facility] ([facility]) [address] [place] [address], [place] [phone] [facility] [address] [place] [address], [place] [phone] from Last 3 Months or Most Recently Relevant to Health Maintenance Insurance [employer] ADV[employer]AGE [facility] HMO NON PAR Care Teams Bar Roller Relationship Specialty Start Date End Date Marvel Grayson MD [address] [place] [address] PCP - General Family Medicine 03/14/23
--- OUTSIDE RECORDS SUMMARY | 2025-04-30 09:51 | XMS_ITS | Patient Health Record ---
Author Organization [facility] Address [address] [place] [address] Care Team Providers Care Talent Director Name Role Phone Marvel Grayson MD Unavailable [phone] Belkys Vargas Unavailable [phone] Migration, Provider Unavailable Unavailable Allergies Allergen (clinical drug ingredient) Drug/Non Drug Allergy documented on EMR Reaction Allergy Type Onset Date Status cariprazine Vraylar Unknown Drug Allergy Activ e duloxetine Cymbalta Unknown Drug Allergy Active doxycycline Doxycycline stomach upset Drug Allergy Active codeine Codeine anaphylaxis Drug Allergy Activ e Haldol anaphylaxis Drug Allergy Activ e tramadol Ultram anaphylaxis Drug Allergy Activ e Results Component Value Reference Range Flag Notes CBC (INCLUDES DIFF/PLT) Reviewed date:09/24/2024 09:26:01 AM Interpretation: Performing Lab:, [facility] Yadira Brandt, EjxujjlnwmBN[address] Walter Carias Notes/Report: Received Date: [id number] 0 0 0 0 0 0 0 WHITE BLOOD CELL COUNT 11.0 3.8-10.8 Thousand/uL H RED BLOOD CELL COUNT 4.62 3.80-5.10 Million/uL N HEMOGLOBIN 14.0 11.7-15.5 g/dL N HEMATOCRIT 43.9 35.0-45.0 % N MCV 95.0 80.0-100.0 fL N MCH 30.3 27.0-33.0 pg N MCHC 31.9 32.0-36.0 g/dL L For adults, a slight decrease in the calculated MCHC value (in the range of 30 to 32 g/dL) is most likely not clinically significant; however, it should be interpreted with caution in correlation with other red cell parameters and the patient's clinical condition. RDW 14.1 11.0-15.0 % N PLATELET COUNT 379 140-400 Thousand/uL N MPV 10.2 7.5-12.5 fL N ABSOLUTE NEUTROPHILS 6721 7147-6892 cells/uL N ABSOLUTE LYMPHOCYTES 3465 850-3900 cells/uL N ABSOLUTE MONOCYTES 572 200-950 cells/uL N ABSOLUTE EOSINOPHILS 187 15-500 cells/uL N ABSOLUTE BASOPHILS 55 0-200 cells/uL N NEUTROPHILS 61.1 N LYMPHOCYTES 31.5 N MONOCYTES 5.2 N EOSINOPHILS 1.7 N BASOPHILS 0.5 N URINALYSIS, REFLEX TO MICROS COPIC Reviewed date:09/24/2024 09:26:01 AM Interpretation: Performing Lab:ELODIA [facility]Iowotdtqkm4893 Yadira Brandt, VmryahwxndGB[address] Walter Carias Notes/Report: Received Date: 0 0 0 0 0 0 0 COLOR YELLOW YELLOW N APPEARANCE CLEAR CLEAR N SPECIFIC GRAVITY 1.010 1.001-1.035 N PH 5.5 5.0-8.0 N GLUCOSE NEGATIVE NEGATIVE N BILIRUBIN NEGATIVE NEGATIVE N KETONES NEGATIVE NEGATIVE N OCCULT BLOOD NEGATIVE NEGATIVE N PROTEIN NEGATIVE NEGATIVE N NITRITE NEGATIVE NEGATIVE N LEUKOCYTE ESTERASE NEGATIVE NEGATIVE N BASIC METABOLIC PANEL W/EGFR Reviewed date:09/24/2024 09:26:01 AM Interpretation: Performing Lab:ELODIA [facility] CenterAwdtqslnps4712 Yadira Brandt FcjwaxsdqjDI[address] Walter Carias Notes/Report: Received Date: 0 0 0 0 0 0 0 GLUCOSE 81 65-99 mg/dL N Fasting reference interval UREA NITROGEN (BUN) 10 7-25 mg/dL N CREATININE 0.62 0.50-1.03 mg/dL N EGFR 105 > OR = 60 mL/min/1.73m2 N BUN/CREATININE RATIO SEE NOTE: 6-22 (calc) Not Reported: BUN and Creatinine are within reference range. SODIUM 139 135-146 mmol/L N POTASSIUM 4.7 3.5-5.3 mmol/L N CHLORIDE 107 98-110 mmol/L N CARBON DIOXIDE 21 20-32 mmol/L N CALCIUM 9.7 8.6-10.4 mg/dL N TSH, 3RD GENERATION W/REFLEX TO FT4 Reviewed date:09/24/2024 09:26:01 AM Interpretation: Performing Lab:ELODIA [facility]-Pdbizzcyki0155 Yadira Brandt, EkvusrhhsqVW[address] Walter Jamaal Jv Notes/Report: Received Date: 0 0 0 0 0 0 0 TSH W/REFLEX TO FT4 1.40 N Reference Range > or = 20 Years 0.40-4.50 Ranges First trimester 0.26-2.66 Second trimester 0.55-2.73 Third trimester 0.43-2.91 TORRES SCREEN IFA W/REFL TITER IFA Reviewed date:09/24/2024 09:26:01 AM Interpretation: Performing Lab:LESA [facility] Ithx[address] [employer] [place] QeikUI[address] Sadiq White Notes/Report: Received Date: 0 0 0 0 0 0 0 TORRES SCREEN, IFA NEGATIVE NEGATIVE N TORRES IFA is a first line screen for detecting the presence of up to approximately 150 autoantibodies in various autoimmune diseases. A negative TORRES IFA result suggests an TORRES-associated autoimmune disease is not present at this time, and does not reflex further. If there is high clinical suspicion for Sjogren's syndrome, testing for anti-SS-A/Ro antibody should be considered. Anti-Garima-1 antibody should be considered for clinically suspected inflammatory myopathies. AC-0: Negative International Consensus on TORRES Patterns (https://doi.org/10.1515 /rjop-0859-4011) For additional information, please refer to http://education.[employer]/faq/DEI750 (This link is being provided for informational/ educational purposes only.) C-REACTIVE PROTEIN Reviewed date:09/24/2024 09:26:01 AM Interpretation: Performing Lab:LESA AcustreamMarcial Jaimese[address] [place] RyyoSL[address] Sadiq White Notes/Report: Received Date: [id number] 0 0 0 0 0 0 0 C-REACTIVE PROTEIN <3.0 <8.0 mg/L N Urine Drug Screen Reviewed date:09/16/2024 09:46:32 PM Interpretation: Performing Lab: Notes/Report: benzodiazepine neg cocaine neg opiates pos methadone neg oxycodone neg Suboxone neg Amphetamine neg THC neg barbiturates neg MET (methamphetamines) neg MDMA neg PCP neg TSH, 3RD GENERATION W/REFLEX TO FT4 Reviewed date:06/27/2024 08:22:52 AM Interpretation: Performing Lab:ELODIA, [facility] HospitalQzuyjgbdqd8737 Yadira Brandt, TrjeszxpthJK[address] Walter Carias Notes/Report: Received Date: 0 0 0 0 0 0 0 0 0 0 0 TSH W/REFLEX TO FT4 2.48 N Reference Range > or = 20 Years 0.40-4.50 Ranges First trimester 0.26-2.66 Second trimester 0.55-2.73 Third trimester 0.43-2.91 VITAMIN D, 25-HYDROXY, LC/MS /MS Reviewed date:06/27/2024 08:22:52 AM Interpretation: Performing Lab:ELODIA [facility]reamR[place] [address] Yadira Brandt, RqrcjkjnnpLI[address] Walter Carias Notes/Report: Received Date: 0 0 0 0 0 0 0 0 0 0 0 VITAMIN D,25-OH,TOTAL,IA 10 30-100 ng/mL L Vitamin D Status 25-OH Vitamin D: Deficiency: <20 ng/mL Insufficiency: 20 - 29 ng/mL Optimal: > or = 30 ng/mL For 25-OH Vitamin D testing on patients on D2-supplementation and patients for whom quantitation of D2 and D3 fractions is required, the QuestAssureD() 25-OH VIT D, (D2,D3), LC/MS/MS is recommended: order code [id number] (patients >2yrs). See Note 1 Note 1 For additional information, please refer to http://education.[employer]/faq/BYQ208 (This link is being provided for informational/ educational purposes only.) COMPREHENSIVE METABOLIC PANE L W/EGFR Reviewed date:06/27/2024 08:22:52 AM Interpretation: Performing Lab:ELODIA, [facility]ream[facility] HospitalDkjazsrczk8985 Yadira Brandt, NxgfvrqvmvKR[address] Walter Carias Notes/Report: Received Date: 0 0 0 0 0 0 0 0 0 0 0 GLUCOSE 90 65-99 mg/dL N Fasting reference interval UREA NITROGEN (BUN) 8 7-25 mg/dL N CREATININE 0.65 0.50-1.03 mg/dL N EGFR 104 > OR = 60 mL/min/1.73m2 N BUN/CREATININE RATIO SEE NOTE: 6- (calc) Not Reported: BUN and Creatinine are within reference range. SODIUM 137 135-146 mmol/L N POTASSIUM 4.6 3.5-5.3 mmol/L N CHLORIDE 103 98-110 mmol/L N CARBON DIOXIDE 21 20-32 mmol/L N CALCIUM 9.3 8.6-10.4 mg/dL N PROTEIN, TOTAL 6.8 6.1-8.1 g/dL N ALBUMIN 4.2 3.6-5.1 g/dL N GLOBULIN 2.6 1.9-3.7 g/dL (calc) N ALBUMIN/GLOBULIN RATIO 1.6 1.0-2.5 (calc) N BILIRUBIN, TOTAL 0.5 0.2-1.2 mg/dL N ALKALINE PHOSPHATASE 77 37-153 U/L N AST 16 10-35 U/L N ALT 12 6-29 U/L N LIPID PANEL Reviewed date:06/27/2024 08:22:52 AM Interpretation: Performing Lab:ELODIA, [facility]reamMain[facility]eral Medical CenterVkesgbauez3680 Yadira BrandtMad[place] [address]RgnhfuaoqcOF[address] Walter Carias Notes/Report: Received Date: 0 0 0 0 0 0 0 0 0 0 0 CHOLESTEROL, TOTAL 122 <200 mg/dL N HDL CHOLESTEROL 48 > OR = 50 mg/dL L TRIGLYCERIDES 105 <150 mg/dL N LDL-CHOLESTEROL 55 N Reference range: <100 Desirable range <100 mg/dL for primary prevention; <70 mg/dL for patients with CHD or diabetic patients with > or = 2 CHD risk factors. LDL-C is now calculated using the Adolfo calculation, which is a validated novel method providing better accuracy than the Friedewald equation in the estimation of LDL-C. Robbin VAZQUEZ et al. JULIO. 2013;310(19): 8572-4101 (http://education.[employer]/faq/FAQ16 4) CHOL/HDLC RATIO 2.5 <5.0 (calc) N NON HDL CHOLESTEROL 74 <130 mg/dL (calc) N For patients with diabetes plus 1 major ASCVD risk factor, treating to a non-HDL-C goal of <100 mg/dL (LDL-C of <70 mg/dL) is considered a therapeutic option. VITAMIN B12/FOLATE, SERUM PA BRIDGETT Reviewed date:06/27/2024 08:22:52 AM Interpretation: Performing Lab:ELODIA [facility]reamMainegeneral Medical CenterTidlatfmrj1656 Yadira Brandt, OjzupqwswuEM[address] Walter Carias Notes/Report: Received Date: 0 0 0 0 0 0 0 0 0 0 0 VITAMIN B12 226 970-5224 pg/mL N Please Note: Although the reference range for vitamin B12 is 200-1100 pg/mL, it has been reported that between 5 and 10% of patients with values between 200 and 400 pg/mL may experience neuropsychiatric and hematologic abnormalities due to occult B12 deficiency; less than 1% of patients with values above 400 pg/mL will have symptoms. FOLATE, SERUM 3.7 L Reference Range Low: <3.4 Borderline: 3.4-5.4 Normal: >5.4 CBC (INCLUDES DIFF/PLT) Reviewed date:06/27/2024 08:22:52 AM Interpretation: Performing Lab:ELODIA [facility]reamMain[facility] CenterFajssvqulw7269 Yadira Brandt, OdyyyzbnuwYX[address] Walter Carias Notes/Report: Received Date: 0 0 0 0 0 0 0 0 0 0 0 WHITE BLOOD CELL COUNT 8.5 3.8-10.8 Thousand/uL N RED BLOOD CELL COUNT 4.73 3.80-5.10 Million/uL N HEMOGLOBIN 13.9 11.7-15.5 g/dL N HEMATOCRIT 43.8 35.0-45.0 % N MCV 92.6 80.0-100.0 fL N MCH 29.4 27.0-33.0 pg N MCHC 31.7 32.0-36.0 g/dL L For adults, a slight decrease in the calculated MCHC value (in the range of 30 to 32 g/dL) is most likely not clinically significant; however, it should be interpreted with caution in correlation with other red cell parameters and the patient's clinical condition. RDW 12.2 11.0-15.0 % N PLATELET COUNT 378 140-400 Thousand/uL N MPV 10.6 7.5-12.5 fL N ABSOLUTE NEUTROPHILS 4165 5425-5404 cells/uL N ABSOLUTE LYMPHOCYTES 3494 850-3900 cells/uL N ABSOLUTE MONOCYTES 502 200-950 cells/uL N ABSOLUTE EOSINOPHILS 272 15-500 cells/uL N ABSOLUTE BASOPHILS 68 0-200 cells/uL N NEUTROPHILS 49 N LYMPHOCYTES 41.1 N MONOCYTES 5.9 N EOSINOPHILS 3.2 N BASOPHILS 0.8 N URINALYSIS, COMPLETE W/REFLE X TO CULTURE Reviewed date:06/27/2024 08:22:52 AM Interpretation: Performing Lab:ELODIA, NumberPicture DiagnosticsMary Washington HospitalKvaaygsomi6060 Yadira Brandt, EbwoipzrrcQU[address] Walter Carias Notes/Report: Received Date: 0 0 0 0 0 0 0 0 0 0 0 Received Date: 0 0 0 0 0 0 0 0 0 0 0 COLOR DARK YELLOW YELLOW N APPEARANCE CLEAR CLEAR N SPECIFIC GRAVITY 1.025 1.001-1.035 N PH 5.5 5.0-8.0 N GLUCOSE NEGATIVE NEGATIVE N BILIRUBIN 1+ NEGATIVE A Presumptive positive bilirubin. Consider confirmation by serum bilirubin if clinically indicated. KETONES TRACE NEGATIVE A OCCULT BLOOD NEGATIVE NEGATIVE N PROTEIN NEGATIVE NEGATIVE N NITRITE NEGATIVE NEGATIVE N LEUKOCYTE ESTERASE NEGATIVE NEGATIVE N SQUAMOUS EPITHELIAL CELLS 0-5 < OR = 5 /HPF BACTERIA FEW NONE SEEN /HPF A COMMENTS FEW MUCOUS THREADS NOTE See Note This urine was analyzed for the presence of WBC, RBC, bacteria, casts, and other formed elements. Only those elements seen were reported. REFLEXIVE URINE CULTURE See Note N O CULTURE INDICATED MAGNESIUM Reviewed date:06/27/2024 08:22:52 AM Interpretation: Performing Lab:OW, NumberPicture DiagnosticsMainegeneral Medical CenterCjadnljzne9759 Yadira Brandt, YcawsocdbdLO[address] Walter Carias Notes/Report: Received Date: 0 0 0 0 0 0 0 0 0 0 0 MAGNESIUM 2.1 1.5-2.5 mg/dL N IRON, TOTAL Reviewed date:06/27/2024 08:22:52 AM Interpretation: Performing Lab:CB, [facility] [address], [facility] HospitalIfflCR[address] Sadiq White Notes/Report: Received Date: 0 0 0 0 0 0 0 0 0 0 0 IRON, TOTAL 91 45-160 mcg/dL N Urine Drug Screen Reviewed date:06/27/2024 08:22:52 AM Interpretation: Performing Lab:LESA Gayatri [facility] Hospitale1355 [facility], [facility] HospitalKxfnHC[address] Sadiq White Notes/Report: Received Date: [id number] 0 0 0 0 0 0 0 0 0 0 0 Hemoglobin A1c Reviewed date:06/27/2024 08:22:52 AM Interpretation: Performing Lab:ELODIA [facility]reamMain[facility]eral [facility] CenterBeizxbglsd3552 Yadira Brandt, VilxwkgilwVJ[address] Walter Carias Notes/Report: Received Date: [id number] 0 0 0 0 0 0 0 0 0 0 0 HEMOGLOBIN A1c 6.1 <5.7 % of total Hgb H For someone without known diabetes, a hemoglobin A1c value between 5.7% and 6.4% is consistent with prediabetes and should be confirmed with a follow-up test. For someone with known diabetes, a value <7% indicates that their diabetes is well controlled. A1c targets should be individualized based on duration of diabetes, age, comorbid conditions, and other considerations. This assay result is consistent with an increased risk of diabetes. Currently, no consensus exists regarding use of hemoglobin A1c for diagnosis of diabetes for children. Urine Drug Screen Reviewed date:09/24/2024 09:26:01 AM Interpretation: Performing Lab:LESA [facility]1355 [facility] Sadiq White Notes/Report: Received Date: [id number] 0 0 0 0 0 0 URINALYSIS, REFLEX TO MICROS COPIC Reviewed date:07/08/2024 11:14:31 AM Interpretation: Performing Lab:ELODIA [facility]reamMain[facility]eral Medical CenterGazelznehk5916 Yadira Brandt, OzkntyyypsUJ[address] Walter Carias Notes/Report: Received Date: [id number] 0 0 COLOR YELLOW YELLOW N APPEARANCE CLEAR CLEAR N SPECIFIC GRAVITY 1.015 1.001-1.035 N PH 7.0 5.0-8.0 N GLUCOSE NEGATIVE NEGATIVE N BILIRUBIN NEGATIVE NEGATIVE N KETONES NEGATIVE NEGATIVE N OCCULT BLOOD NEGATIVE NEGATIVE N PROTEIN NEGATIVE NEGATIVE N NITRITE NEGATIVE NEGATIVE N LEUKOCYTE ESTERASE NEGATIVE NEGATIVE N CULTURE, URINE, ROUTINE Reviewed date:07/08/2024 11:14:31 AM Interpretation: Performing Lab:OW, [facility]-Yxictusdwp7353 Yadira Brandt, QvfdrrthbcVI[address] Walter Carias Notes/Report: Received Date: 0 0 CULTURE, URINE, ROUTINE See Note CULTURE, URINE, ROUTINE Micro Number: [id number] Test Status: Final Specimen Source: Urine Specimen Quality: Adequate Result: Mixed genital sigifredo isolated. These superficial bacteria are not indicative of a urinary tract infection. No further organism identification is warranted on this specimen. If clinically indicated, recollect clean-catch, mid-stream urine and transfer immediately to Urine Culture Transport Tube. Reason For Referral No Information Medications Medication SIG (Take, Route, Frequency, Duration) Notes Start Date End Date Status Aspirin 81 MG Tablet Chewable 1 tab(s) chewed once a day; Duration: 30 day(s) Active Atorvastatin Calcium 80 MG Tablet 1 tab(s) orally once a day; Duration: 90 days Active Trelegy Ellipta 100 MCG-62.5 MCG-25 MCG/INH POWDER 1 PUFF(S) INHALED ONCE A DAY; Duration: 90 DAYS *Please review and pick correct strength-formulat ion from Quality Practice options. If intended option is not shown, discontinue and re-order from Quick Search* Active Promethazine-DM 6.25-15 MG/5ML Syrup 5 mL orally every 6 hours; Duration: 15 days 09/16/2024 Active Budesonide 1 MG/2ML Suspension 2 mL by nebulizer 2 times a day; Duration: 30 days 09/16/2024 Active Omeprazole 40 MG Capsule Delayed Release 1 cap(s) orally once a day; Duration: 90 days 10/30/2023 Active Gabapentin 300 MG Capsule 1 cap(s) orally 4 times a day Active tiZANidine HCl 2 MG Tablet 1 tab orally bedtime prn; Duration: 90 days Not-Taking/ PRN Metoprolol Tartrate 25 MG Tablet 1/2 tab(s) orally 2 times a day Active Vitamin D3 125 MCG CAPSULE 1 CAP(S) ORALLY ONCE A DAY; Duration: 90 DAYS *Please review and pick correct strength-formulat ion from Quality Practice options. If intended option is not shown, discontinue and re-order from Quick Search* 06/24/2024 Active Nitrostat 0.4 MG Tablet Sublingual 1 tab(s) sublingually every 5 minutes Active Albuterol Sulfate (2.5 MG/3ML) 0.083% Nebulization Solution 3 mL by nebulizer every 6 hours; Duration: 30 day(s) 02/14/2023 Not-Taking/ PRN Topiramate 25 MG Tablet 1 tab(s) orally once a day Active Proventil HFA 90 MCG/INH AEROSOL 2 PUFF(S) INHALED EVERY 6 HOURS; Duration: 30 DAYS *Please review and pick correct strength-formulat ion from Quality Practice options. If intended option is not shown, discontinue and re-order from Quick Search* 01/23/2023 Not-Taking/ PRN clonazePAM 0.5 MG Tablet 0.5 tab(s) orally 2 times a day; Duration: 28 days 09/16/2024 Active Ondansetron 4 MG Tablet Disintegrating 1 tab(s) orally every 6 hours; Duration: 10 days alternate with the phenergan 07/31/2023 Active Loratadine 10 MG Tablet 1 tab(s) orally once a day; Duration: 90 days Active Meloxicam 15 MG Tablet 1 tab(s) orally once a day Active Folic Acid 1 MG Tablet 1 tab(s) orally once a day; Duration: 90 days 06/24/2024 Active OXYGEN CONCENTRATOR 3 LITER, 1 OVERNIGHT, 2-3 LITERS VIA NC *Please review for potential replacement for e-prescription and drug interaction check* Active HYDROcodone-Acetamin ophen 10-325 MG Tablet 1 tab(s) orally every 6 hours Active Immunizations Vaccine Route Administration Date Status Comme nts FLUZONE SDV 6M-64Y ([id number]) IM Intramuscular 06/19/2024 Administered Influenza IM Intramuscular 05/29/2023 Administered Prevnar 20 IM Intramuscular 05/29/2023 Administered ShingRix IM Intramuscular 05/29/2023 Administered ShingRix IM Intramuscular 06/19/2024 Administered Social History Social History Social History Social Info Question Answer Notes Tobacco Use Current smoking status: Current Smoker How often do you smoke?: Every day PPD < .5 Interested in quitting? Thinking about quitting Number of years? >25 years Additional Details Category Social Info Options Details Social History Occupation disabled Occupational exposure no Travel outside [place] no Alcohol no Sexually active yes Drug use no Exercise no Home smoke detector use: yes Caffeine yes Marital Status Children yes, 1 Pets yes [employer] spiritual Problems Problem Type SNOMED Code ICD Code Onset Dates Problem Status W/U Status Risk Notes Problem Anemia (307736843) Anemia, unspecified (D64.9) Active confirmed Problem Vitamin D deficiency (83708290) Vitamin D deficiency, unspecified (E55.9) Active confirmed Problem Tobacco user (081587873) Nicotine dependence, cigarettes, uncomplicated (F17.210) Active confirmed Problem Anxiety disorder (227602237) Anxiety disorder, unspecified (F41.9) Active confirmed Problem Atherosclerosis of coronary artery (891300202) Coronary atherosclerosis due to calcified coronary lesion (I25.84) Active confirmed Problem Spinal stenosis in cervical region (53673791) 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) Active confirmed Problem Chronic fatigue syndrome (disorder) (55656813) Chronic fatigue, unspecified (R53.82) Active confirmed Problem Solitary pulmonary nodule (009295999) Solitary pulmonary nodule (R91.1) Active confirmed Problem Long-term current use of antiplatelet drug (297463228841457) long term care social worker (current) use of aspirin (Z79.82) Active confirmed Problem Vitamin B>12< deficiency anaemia (31593225) Vitamin B12 deficiency anemia, unspecified (D51.9) Active confirmed Problem Allergic rhinitis caused by pollen (disorder) (87259117) Allergic rhinitis due to pollen (J30.1) Active confirmed Problem Chronic obstructive pulmonary disease (42751257) Chronic obstructive pulmonary disease, unspecified (J44.9) Active confirmed Problem Gastro-esophageal reflux disease without esophagitis (757926655) Gastro-esophageal reflux disease without esophagitis (K21.9) Active confirmed Problem Spasm (42868082) Contracture of muscle, unspecified site (M62.40) Active confirmed Problem Obstructive sleep apnea syndrome (disorder) (64499851) Obstructive sleep apnea (adult) (pediatric) (G47.33) Active confirmed Problem Old myocardial infarction (1259033) Old myocardial infarction (I25.2) Active confirmed Vital Signs Heart Rate 74 /min 09/16/2024 Temperature 97.8 degrees Fahrenheit 09/16/2024 Oximetry 93 09/16/2024 Blood pressure diastolic 70 mm Hg 09/16/2024 Height 71.0 in 09/16/2024 Blood pressure systolic 138 mm Hg 09/16/2024 Weight 168.8 lbs 09/16/2024 BMI 23.54 09/16/2024 Encounters Encounter Location Date Provider Diagnosis [address] [address] 06/26/2024 Marvel Grayson Biliuria R82.2 and Vitamin B12 deficiency 266.[address] [address] 07/02/2024 Marvel Grayson Vitamin B12 deficien cy anemia, unspecified D51.[address] [address] 07/17/2024 Marvel Grayson Vitamin B12 deficien cy anemia due to intrinsic factor deficiency D51.[address] [address] 07/21/2024 Marvel Grayson Vitamin B12 deficien cy anemia, unspecified D51.[address] [address] 11/13/2024 Marvel Grayson Vitamin B12 deficien cy anemia, unspecified D51.[address] [address] 02/07/2025 Provider Migration [address] [address] 06/19/2024 Belkys Vargas Other alf (current) drug therapy Z79.899 ; Anxiety disorder, unspecified F41.9 ; Intervertebral disc stenosis of neural canal of cervical region M99.51 ; Chronic obstructive pulmonary disease, unspecified J44.9 ; Coronary atherosclerosis due to calcified coronary lesion I25.84 ; Solitary pulmonary nodule R91.1 ; Anemia, unspecified D64.9 ; Vitamin D deficiency, unspecified E55.9 ; Hyperglycemia, unspecified R73.9 and Encounter for immunization Z23 [address] [address] 09/16/2024 Marvel Grayson Chronic obstructive pulmonary disease, unspecified J44.9 ; Nicotine dependence, cigarettes, uncomplicated F17.210 ; Coronary atherosclerosis due to calcified coronary lesion I25.84 ; Solitary pulmonary nodule R91.1 ; Other alf (current) drug therapy Z79.899 and Chronic fatigue, unspecified R53.[address] [address] 06/09/2024 Marvel Grayson Old myocardial infarction I25.2 [facility] [address] [place] [address] 06/19/2024 Belkys Vargas [facility] [address] [place] [address] 06/19/2024 Marvel Grayson [facility] [address] [place] [address] 06/24/2024 Belkys Vargas Assessments Encounter Date Diagnosis (ICD Code) Assessment Notes Treatment Notes Treatment Clinical Notes Section Notes 06/09/2024 Old myocardial infarction (ICD-10 - I25.2) 06/19/2024 Anxiety disorder, unspecified (ICD-10 - F41.9) Will discuss med management with Dr. Grayson 06/19/2024 Other ad terminal makeup operator (current) drug therapy (ICD-10 - Z79.899) *dip only 06/26/2024 Vitamin B12 deficiency (ICD9-CM - 266.2) 06/26/2024 Biliuria (ICD-10 - R82.2) 07/02/2024 Vitamin B12 deficiency anemia, unspecified (ICD-10 - D51.9) 07/17/2024 Vitamin B12 deficiency anemia due to intrinsic factor deficiency (ICD-10 - D51.0) 07/21/2024 Vitamin B12 deficiency anemia, unspecified (ICD-10 - D51.9) 09/16/2024 Nicotine dependence, cigarettes, uncomplicated (ICD-10 - F17.210) 09/16/2024 Chronic obstructive pulmonary disease, unspecified (ICD-10 - J44.9) 11/13/2024 Vitamin B12 deficiency anemia, unspecified (ICD-10 - D51.9) 09/16/2024 Coronary atherosclerosis due to calcified coronary lesion (ICD-10 - I25.84) 06/19/2024 Intervertebral disc stenosis of neural canal of cervical region (ICD-10 - M99.51) 06/19/2024 Chronic obstructive pulmonary disease, unspecified (ICD-10 - J44.9) Followed by pulmonology 09/16/2024 Solitary pulmonary nodule (ICD-10 - R91.1) 09/16/2024 Other ad terminal makeup operator (current) drug therapy (ICD-10 - Z79.899) 06/19/2024 Coronary atherosclerosis due to calcified coronary lesion (ICD-10 - I25.84) Followed by cardiology 09/16/2024 Chronic fatigue, unspecified (ICD-10 - R53.82) 06/19/2024 Solitary pulmonary nodule (ICD-10 - R91.1) Followed by pulmonology 06/19/2024 Anemia, unspecified (ICD-10 - D64.9) 06/19/2024 Vitamin D deficiency, unspecified (ICD-10 - E55.9) 06/19/2024 Hyperglycemia, unspecified (ICD-10 - R73.9) 06/19/2024 Encounter for immunization (ICD-10 - Z23) Plan Of Treatment Pending Test Test Name Order Date Renin, Serum 02/27/2023 Aldosterone 02/27/2023 Cologuard 03/11/2024 Insurance Providers Payer Name Payer Address Payer Phone Subscriber Number Group Number Insured Name Patient Relationship to Insured Coverage Start Date Coverage End Date [employer] [address] [address] [place] [address] [id number] Tiffanie Shabazz Self - patient is the insured [employer] Medicaid Attn Claims Department [address] [address] [place] [address] [id number] Tiffanie Shabazz Self - patient is the insured Medications Administered Medication Instructions Date of Administration Dosage Notes Vitamin B 12 Injection 06/26/2024 1 mL Vitamin B 12 Injection 07/02/2024 1 mL Vitamin B 12 Injection 07/17/2024 1 mL Vitamin B 12 Injection 07/21/2024 1 mL Vitamin B 12 Injection 11/13/2024 1 mL Medical (General) History Medical History History ICD Code COPD Asthma Hyperlipidemia Fibromyalgia Degenerative disc disease Neuropathy Migraines Surgical History Surgery Date(Month/Year) L5-S1 Decompression 04/2018 Hysterectomy 2015 BTL 2014 D & C 2014 I & D 2014 Fatty Tumor removed 2014 Ablasion 2014 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
[2025-04-30 11:33] LABS: Cholesterol 148 mg/dl (140-200); HDL Cholesterol 64 mg/dl (40-60); Triglycerides 91 mg/dl (30-150)
== END 2025-04-30 23:59 | disposition home or self-care (01) ==
LOC: RAD 09:42
PROVIDERS: PCP Anesthesiology; Visit Provider Anesthesiology
DX: M51.24 Other intervertebral disc displacement, thoracic region (principal); R91.8 Other nonspecific abnormal finding of lung field; Z98.890 Other specified postprocedural states
CPT/HCPCS: 36415; 72146; 80061

== ENCOUNTER 2025-05-21 16:49 | Outpatient (CLI) | payer MEDICARE, MEDICAID, SELFPAY ==
--- OUTSIDE RECORDS SUMMARY | 2025-05-21 16:51 | XMS_ITS | Clinical Summary ---
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 Inspector Name Role Phone Becky CORONADO, Amie Primary Care Physician [phone] Conditions or Problems Problem Name Problem Code [...] mass index [BMI] 27.0-27.9, adult Bronchitis, acute 50323813 (SNOMED CT) 05/06 Inactive 05/06 Rea Saavedra APRN Acute bronchitis Herpes simplex, oral 661196302 (SNOMED CT) 05/06 Active 05/06 Rea Saavedra APRN Oral herpes simplex infection Body mass index (BMI) 27.0-27.9; adult Z68.27 (ICD-10-CM ) 12/26 Removed 12/30 Amie Pena MD Body mass index [BMI] 27.0-27.9, adult Body mass index (BMI) 26.0-26.9; adult Z68.26 (ICD-10-CM ) 11/01 Correction 11/01 Amie Pena MD Body mass index [BMI] 26.0-26.9, adult Tobacco User 773464374 (SNOMED CT) 12/26 Active 12/26 Amie Pena [...] index [BMI] 28.0-28.9, adult Hx of STEMI 238765820 (SNOMED CT) 10/24 Active 10/26 Charissa Breen APRN History of artificial heart valve S/P STENT Health maintenance 91202892 (SNOMED CT) Resolved Charissa Breen APRN History AND physical examination Health maintenance 85203311 (SNOMED CT) Removed Amie Pena MD History [...] nutrition Z71.3 (ICD-10-CM ) 05/13 Inactive 05/14 oNra Borrero APRN PMHNP Dietary counseling and surveillance [...] mass index [BMI] 28.0-28.9, adult Vitamin deficiency 92307309 (SNOMED CT) 04/08 Active 04/08 Nora Borrero APRN PMHNP Vitamin deficiency Body mass index (BMI) 28.0-28.9; adult Z68.28 (ICD-10-CM ) 02/08 Removed 02/09 Nora Feck RN ANESTHETIST, PMHNP Body mass index [BMI] 28.0-28.9, adult Body mass index (BMI) 29.0-29.9; adult Z68.29 (ICD-10-CM ) 10/29 Correction 10/30 Nora Feck RN ANESTHETIST, PMHNP Body mass index [BMI] 29.0-29.9, adult High risk medication management 542811148 (SNOMED CT) 02/08 Active 02/08 Nora Feck RN ANESTHETIST, PMHNP High risk drug monitoring Anxiety disorder 593095591 (SNOMED CT) 02/08 Active 02/08 Nora Feck RN ANESTHETIST, PMHNP Anxiety disorder PTSD 93818279 (SNOMED CT) 02/08 Active 02/08 Nora Feck RN ANESTHETIST, PMHNP Post-traumatic stress disorder Bipolar 1 disorder, mixed 60283722 (SNOMED CT) 02/08 Active 02/08 Nora Feck RN ANESTHETIST, PMHNP Mixed bipolar I disorder Axillary mass 742735315 (SNOMED CT) 01/24 Active 01/25 Amie Pena MD Mass of axilla Palpitation s, recurrent 75027135 (SNOMED CT) 10/29 Resolved 10/29 Charissa Breen APRN Palpitations Cough 09695421 (SNOMED CT) 09/18 Resolved 09/18 Charissa Breen APRN Cough Acquired absence of both cervix and uterus 690264445 (SNOMED CT) 03/02 Resolved 02/05 Charissa Breen APRN Total hysterectomy Health maintenance 48264833 (SNOMED CT) 02/05 Resolved 02/05 Charissa Breen APRN History AND physical examination Body mass index (BMI) 29.0-29.9; adult Z68.29 (ICD-10-CM ) 10/29 Removed 10/30 Amie Pena MD Body mass index [BMI] 29.0-29.9, adult Subcutaneou s mass of back 932950652 (SNOMED CT) 10/29 Active 10/30 Amie Pena MD Mass of skin Palpitation s, recurrent 84855099 (SNOMED CT) 10/29 Active 10/30 Amie Pena MD Palpitations Family hx of coronary arterioscle rosis (CAD) 312153696 (SNOMED CT) 10/29 Active 10/29 Amie Pena MD Family history of coronary arterioscleros is Cancer, family hx 142392716 (SNOMED CT) 10/29 Active 10/29 Amie Pena MD Family history of malignant neoplasm Palpitation s, recurrent 96165974 (SNOMED CT) 10/29 Removed 10/29 Amie Pena MD Palpitations Body mass index (BMI) 29.0-29.9; adult Z68.29 (ICD-10-CM ) 09/30 Correction 09/30 Amie Pena MD Body mass index [BMI] 29.0-29.9, adult Joint pain, hand 429791279 (SNOMED CT) 10/29 Active 10/29 Amie Pena MD Pain of joint of hand Localized swelling on back 379213044 (SNOMED CT) 10/29 Active 10/29 Amie Pena MD Finding of back Body mass index (BMI) 29.0-29.9; adult Z68.29 (ICD-10-CM ) 09/30 Removed 09/30 Amie Pena MD Body mass index [BMI] 29.0-29.9, adult Body mass index (BMI) 29.0-29.9; adult Z68.29 (ICD-10-CM ) 05/03 Correction 05/03 Amie Pena MD Body mass index [BMI] 29.0-29.9, adult Cough 65489584 (SNOMED CT) 09/18 Removed 09/18 Amie Pena MD Cough Body mass index (BMI) 29.0-29.9; adult Z68.29 (ICD-10-CM ) 05/03 Removed 05/03 Amie Pena MD Body mass index [BMI] 29.0-29.9, adult Body mass index (BMI) 28.0-28.9; adult Z68.28 (ICD-10-CM ) 02/05 Correction 02/05 Amie Pena MD Body mass index [BMI] 28.0-28.9, adult Chronic pain 45955822 (SNOMED CT) 05/03 Active 05/03 Amie Pena MD Chronic pain Fibromyalgi a 23480254 (SNOMED CT) 05/03 Active 05/03 Amie Pena 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 281057469 (SNOMED CT) 03/02 Active 02/05 Amie Pena MD Total hysterectomy Acquired absence of both cervix and uterus 982049707 (SNOMED CT) 03/02 Removed 02/05 Amie Pena MD Total hysterectomy Body mass index (BMI) 28.0-28.9; adult Z68.28 (ICD-10-CM ) 02/05 Removed 02/05 Amie Pena MD Body mass index [BMI] 28.0-28.9, adult Health maintenance 32444989 (SNOMED CT) 02/05 Removed 02/05 Amie Pena MD History AND physical examination Exposure to hepatitis C 860165473 (SNOMED CT) 02/05 Active 02/05 Amie Pena MD Exposure to Hepatitis C virus COPD 98960123 (SNOMED CT) 02/05 Active 02/05 Amie Pena MD Chronic obstructive pulmonary disease Asthma 116118342 (SNOMED CT) 02/05 Active 02/05 Amie Pena MD Asthma Medications Medication Instructions Start Date Stop Date Generic Name NDC Provider CEPHALEXIN 500 MG CAPS Take 1 capsule by mouth three times a day cephalexin 61413500883 Amie Pena MD ACYCLOVIR 5 % CREA Apply 1 a small amount to affected area five times a day for four days. START SOON POSSIBLE AFTER ONSET OF COLD SORES. acyclovir 10826722478 Rea Saavedra APRN ZITHROMAX Z-KISHAN 250 MG TABS Take 2 tablet by mouth once a day as directed 2 tablets for 1 day then 1 tablet once a day for 4 days. TAKE WITH FOOD. azithromycin 74109534498 Rea Saavedra APRN TIZANIDINE HCL 2 MG TABS TAKE 1 TABLET BY MOUTH THREE TIMES A DAY NEEDED FOR MUSCLE PAIN. 02/13 tizanidine 54703230763 Mickie Florence APRN TIZANIDINE HCL 2 MG TABS TAKE 1 TABLET BY MOUTH 3 TIMES A DAY NEEDED FOR MUSCLE PAIN tizanidine 99492058320 Amie Pena MD TIZANIDINE HCL 2 MG TABS TAKE 1 TABLET BY MOUTH THREE TIMES A DAY NEEDED FOR MUSCLE PAIN. tizanidine 34468076042 Amie Pena MD ATIVAN 0.5 MG TABS Take half or 1 tablet twice a day as needed for anxiety. lorazepam 26295283246 Amie Pena MD ISOSORBIDE MONONITRATE ER 60 MG KH86H-PBC Take 1 tablet by mouth every morning isosorbide mononitrate 45992044137 Rea Saavedra APRN ALBUTEROL SULFATE HFA 108 (90 Base) MCG/ACT AERS Inhale 2-4 puff every four hours as needed albuterol sulfate 79352652160 Amie Pena MD TRAZODONE HCL 50 MG TABS 0.5-2 tablet by mouth at bedtime as directed : take approx 30min prior to bedtime as needed 11/01 trazodone 55986266051 Nora Borrero APRN, PMHNP LINZESS 145 MCG CAPS Take 1 capsule by mouth once a day 11/01 linaclotide 05008738919 Amie Pena MD SHINGRIX 50 MCG/0.5ML SUSR Inject 1/2 ml intramuscularly single dose 11/01 varicella-zoster ge-as01b (pf) 81458198861 Amie Pena MD LATUDA 40 MG TABS Take 1 tablet by mouth every night with meals take with at least 250 calories 11/01 lurasidone 39451407133 Nora Feck RN ANESTHETIST, PMHNP ALBUTEROL SULFATE HFA 108 (90 Base) MCG/ACT AERS Take 2 puff every four hours as needed 11/01 albuterol sulfate 66435988465 Erinn Edilberto CORBIN TOPIRAMATE 25 MG TABS topiramate 16114725779 Na Son MA NITROGLYCERIN 0.4 MG SUBL nitroglycerin 97911279840 Na paiz MA IBUPROFEN 800 MG TABS TAKE 1 TABLET BY MOUTH EVERY 8 HOURS NEEDED 10/26 ibuprofen 79237447712 Amie Pena MD METOPROLOL TARTRATE 25 MG TABS metoprolol tartrate 58394241676 Charissa Breen APRN ATORVASTATIN CALCIUM 80 MG TABS atorvastatin 84456535624 Charissa Breen APRN BRILINTA 90 MG TABS BID ticagrelor 62994958540 Charissa Breen APRN TIZANIDINE HCL 2 MG TABS Take 1 tablet by mouth three times a day as needed for pain TAKE 1 TABS THREE TIMES A DAY NEEDED FOR MUSCLE PAIN. 10/23 tizanidine 13669129528 Amie Pena MD TIZANIDINE HCL 2 MG TABS TAKE 1 TABLET BY MOUTH THREE TIMES A DAY NEEDED FOR MUSCLE PAIN. tizanidine 54386670850 Amie Pena MD LORATADINE 10 MG TABS TAKE 1 TABLET BY MOUTH 1 TIME A DAY NEEDED FOR ALLERGIES loratadine 94696353784 Amie Pena MD IBUPROFEN 800 MG TABS TAKE 1 TABLET BY MOUTH EVERY 8 HOURS NEEDED ibuprofen 57899560784 Amie Pena MD IBUPROFEN 800 MG TABS TAKE 1 TABLET BY MOUTH EVERY 8 HOURS NEEDED ibuprofen 66697730595 Amie Pena MD CLARITIN 10 MG TABS Take 1 tablet by mouth once a day as needed 09/25 loratadine 58593722150 Erinn Casanova CMA LORATADINE 10 MG TABS TAKE 1 TABLET BY MOUTH 1 TIME A DAY NEEDED FOR ALLERGIES loratadine 26664656662 Amie Pena MD VITAMIN B-12 1000 MCG TABS Take 1 tablet by mouth once a day cyanocobalamin (vitamin b-12) 45365482889 Amie Pena MD TIZANIDINE HCL 2 MG TABS TAKE 1 TABS THREE TIMES A DAY NEEDED FOR MUSCLE PAIN. tizanidine 71929099096 Amie Pena MD SHINGRIX 50 MCG/0.5ML SUSR Inject 1/2 ml intramuscularly single dose varicella-zoster ge-as01b (pf) 40146733188 Amie Pena MD TIZANIDINE HCL 2 MG TABS Take 1 tablet by mouth three times a day as needed for pain TAKE 1 TABS THREE TIMES A DAY NEEDED FOR MUSCLE PAIN. tizanidine 27578564443 Aime Pena MD LINZESS 145 MCG CAPS Take 1 capsule by mouth once a day linaclotide 39722215876 Amie Pena MD VITAMIN B-12 1000 MCG TABS Take 1 tablet by mouth once a day cyanocobalamin (vitamin b-12) 81702440667 Amie Pena MD HYDROCODONE-KIRSTIE TAMINOPHEN 7.5-325 MG TABS Take 1 tablet by mouth every six hours as needed hydrocodone-acet aminophen 85560402360 Garima Fitzpatrick MA GABAPENTIN 300 MG CAPS Take 1 capsule by mouth twice a day as needed for pain gabapentin 31254646810 Garima Fitzpatrick MA TRAZODONE HCL 50 MG TABS 0.5-2 tablet by mouth at bedtime as directed : take approx 30min prior to bedtime as needed trazodone 66217994688 Nora Feck RN ANESTHETIST, PMHNP QUETIAPINE FUMARATE 50 MG TABS 0.5-2 tablet by mouth at bedtime as needed 05/05 quetiapine 62296827706 Nora Feck RN ANESTHETIST, PMHNP QUETIAPINE FUMARATE 50 MG TABS TAKE 0.5-2 TABLET BY MOUTH AT BEDTIME NEEDED quetiapine 98556747434 Nora Feck RN ANESTHETIST, PMHNP GABAPENTIN 300 MG CAPS Take 1 capsule by mouth twice a day as needed for pain gabapentin 68866773127 Allison Wild MA HYDROCODONE-KIRSTIE TAMINOPHEN 7.5-325 MG TABS Take 1 tablet by mouth every six hours as needed hydrocodone-acet aminophen 63292455229 Allison Wild MA TIZANIDINE HCL 2 MG TABS Take 1 tablet by mouth three times a day as needed 03/04 tizanidine 66798416975 Charissa Breen APRN TIZANIDINE HCL 2 MG TABS TAKE 1 TABS THREE TIMES A DAY NEEDED FOR MUSCLE PAIN. tizanidine 88172775182 Amie Pena MD QUETIAPINE FUMARATE 50 MG TABS 0.5-2 tablet by mouth at bedtime as needed quetiapine 49112886329 Nora Espinosakyara RN ANESTHETIST, PMHNP LATUDA 40 MG TABS Take 1 tablet by mouth every night with meals take with at least 250 calories lurasidone 97925104079 Nora Jesúskyara RN ANESTHETIST, PMHNP IBUPROFEN 800 MG TABS Take 1 tablet by mouth every eight hours as needed 01/24 ibuprofen 29876792892 Amie Pena MD IBUPROFEN 800 MG TABS TAKE 1 TABLET BY MOUTH EVERY 8 HOURS NEEDED ibuprofen 62883049393 Amie Pena MD INCRUSE ELLIPTA 62.5 MCG/ACT AEPB Use 1 once a day umeclidinium 05079055035 Amie Pena MD TIZANIDINE HCL 2 MG TABS Take 1 tablet by mouth three times a day as needed tizanidine 12007725795 Charissa Breen APRN SYMBICORT 160-4.5 MCG/ACT AERO Use 2 twice a day budesonide-formo terol 32148006860 Amie Pena MD CLARITIN 10 MG TABS Take 1 tablet by mouth once a day as needed loratadine 05613082163 Erinn Casanova VACUUM METALIZING SUPERVISOR ALBUTEROL SULFATE HFA 108 (90 Base) MCG/ACT AERS Take 2 puff every four hours as needed albuterol sulfate 31240574486 Erinn Edilberto VACUUM METALIZING SUPERVISOR IBUPROFEN 800 MG TABS Take 1 tablet by mouth every eight hours as needed ibuprofen 53537518501 Amie Pena MD HYDROCODONE-KIRSTIE TAMINOPHEN 5-325 MG TABS Take 1 tablet by mouth every six hours as needed hydrocodone-acet aminophen 75354870164 Amie Pena MD GABAPENTIN 300 MG CAPS Take 1 capsule by mouth at bedtime as needed for pain gabapentin 26445602630 Erinn Casanova VACUUM METALIZING SUPERVISOR TIZANIDINE HCL 2 MG TABS TAKE 1 TABS THREE TIMES A DAY NEEDED FOR MUSCLE PAIN. TIZANIDINE HCL 21454678822 Amie Pena MD TIZANIDINE HCL 2 MG TABS take 1 capsule three times a day as needed for muscle pain. TIZANIDINE HCL 50660440998 Amie Pena MD IBUPROFEN 800 MG TABS TAKE 1 TABLET BY MOUTH EVERY 8 HOURS NEEDED IBUPROFEN 93110957534 Amie Pena MD ZANAFLEX 4 MG ORAL CAPSULE take 1 capsule three times a day as needed for muscle pain. TIZANIDINE HCL 70505650614 Amie Pena MD SYMBICORT 160-4.5 MCG/ACT AERO USE 2 INHALATIONS TWICE A DAY BUDESONIDE-FORMO TEROL FUMARATE 03883778861 Amie Pena MD INCRUSE ELLIPTA 62.5 MCG/ACT AEPB USE 1 INHALATION ONCE A DAY UMECLIDINIUM BROMIDE 55831023351 Amie Pena MD SPIRIVA HANDIHALER 18 MCG CAPS USE 1 INHALATION ONCE A DAY 09/30 TIOTROPIUM BROMIDE MONOHYDRATE 58066218021 Amie Pena MD BREO ELLIPTA 100-25 MCG/ACT AEPB USE 1 INHALATION ONCE A DAY 09/30 FLUTICASONE FUROATE-VILANTER OL 91823845920 Amie Pena MD ZITHROMAX Z-KISHAN 250 MG TABS TAKE 2 TABLETS BY MOUTH ON DAY 1 THEN 1 TABLET BY MOUTH DAILY FOR 4 DAYS (DAY 2-5) 09/23 AZITHROMYCIN 35881354400 Amie Pena MD HYDROCODONE-KIRSTIE TAMINOPHEN 5-325 MG TABS take 1 tablet every 6 hours as needed for pain. HYDROCODONE-ACET AMINOPHEN 73053238998 Amie Pena MD ALBUTEROL SULFATE HFA 108 (90 Base) MCG/ACT AERS TAKE 2 PUFFS EVERY 4 HOURS NEEDED FOR WHEEZING ALBUTEROL SULFATE 31239689894 Amie Pena MD NYSTATIN 251167 UNIT/GM CREA APPLY THIN FILM 3 TIMES A DAY FOR 2 WEEKS 02/19 NYSTATIN 54118725815 Amie Pena MD CLARITIN 10 MG TABS TAKE 1 TABLET BY MOUTH 1 TIME A DAY NEEDED FOR ALLERGIES LORATADINE 71995086585 Amie ePna MD SPIRIVA HANDIHALER 18 MCG CAPS USE 1 INHALATION ONCE A DAY TIOTROPIUM BROMIDE MONOHYDRATE 70238590865 Amie Pena MD BREO ELLIPTA 100-25 MCG/ACT AEPB USE 1 INHALATION ONCE A DAY FLUTICASONE FUROATE-VILANTER OL 07212189325 Amie Pena MD Medications Administered No information [...] NON-REACTIV E N Hepatitis B virus core IgG+IgM Ab [Presence] in Serum or Plasma by Immunoassay HBSAG NON-REACTIVE NON-REACTIV E N Hepatitis B [...] in Blood ABS NEUTROPH 5558 CELLS/UL 10*3/uL 7221-3765 N Neutrophils [#/volume] in Blood MPV 9.8 [...] Plan of Care Type Date Detail Referral [employer] Referral General Surgery Referral General Referral excluded [...] Procedures Code Procedure Name Date Entry Date [facility]-[id number] Medication Reconciliation Inj Order Injection(s) Ordered [id number] 340B Depo medrol 80mg/ml Injection 2021/05/15 CPT-3074F Most recent systolic blood pressure <130 mm Hg CPT-3078F Most recent diastoli c blood pressure <80 mm Hg [facility]-[id number] Medication Reconciliation CPT-3074F Most recent systolic blood pressure <130 mm Hg CPT-3078F Most recent diastoli c blood pressure <80 mm Hg SCT-013369335 Giving encouragement to exercise SCT-346109060 Dietary management education/guidance/counseling [place] 4004F Patient screened for tobacco use and received tobacco cessation intervention SCT-[id number] Medication Reconciliation CPT-1159F Medication list docu mented in medical record CPT-1160F Review of all medica tions by a prescribing practitioner [facility] G1543 T1 Drug Screen STAND RACHELE-Urine w/o Confirmation SCT-771072593 Giving encouragement to exercise SCT-[id number] Medication Reconciliation CPT-3074F Most recent systolic blood pressure <130 mm Hg CPT-3078F Most recent diastoli c blood pressure <80 mm Hg CPT-1159F Medication list docu mented in medical record CPT-1160F Review of all medica tions by a prescribing practitioner [facility] 927 T1 B12 [facility] 6399 T1 CBC with diff [facility] 77451 T1 CMP [facility] 75033 T1 Lipid Panel [facility] 22448 T1 TSH reflex to free T4 202 10/06/00 Inj Order Injection(s) Ordered [id number] 340B Vitamin B-12 Injection CPT-69350 Cologuard 88389 Fluzone Quadrivalent CPT-46346 IMADM >18YR IM ROUTE 1ST VAC/TOXOID 06/17 SCT-[id number] Medication Reconciliation CPT-3074F Most recent systolic blood pressure <130 mm Hg CPT-3078F Most recent diastoli c blood pressure <80 mm Hg CPT-1159F Medication list docu mented in medical record CPT-1160F Review of all medica tions by a prescribing practitioner SCT-[id number] Medication Reconciliation CPT-3075F Most recent systolic blood pressure 130-139 mm Hg CPT-3079F Most recent diastoli c blood pressure 80-89 mm Hg CPT-3075F Most recent systolic blood pressure 130-139 mm Hg CPT-3079F Most recent diastoli c blood pressure 80-89 mm Hg CPT-1159F Medication list docu mented in medical record SCT-[id number] Medication Reconciliation [facility] 927 T1 B12 [facility] 6399 T1 CBC with diff [facility] 57985 T1 CMP [facility] 466 T1 Folic Acid [facility] 44779 T1 Hepatic Function Panel 20 23/04/06 [facility] 496 T1 HGBA1c [facility] 24413 T1 Lipid Panel [facility] 19500 T1 TSH reflex to free T4 202 09/10/05 [facility] 93113 T2 Vitamin D 25 Dihydroxy 20 23/04/06 CPT-3075F Most recent systolic blood pressure 130-139 mm Hg CPT-3078F Most recent diastoli c blood pressure <80 mm Hg SCT-344005210154031 Medication Reconciliation GEN SX GEN General Surgery Referral General SCT-[id number] Medication Reconciliation CPT-3074F Most recent systolic blood pressure <130 mm Hg CPT-3079F Most recent diastoli c blood pressure 80-89 mm Hg CPT-1159F Medication list docu mented in medical record CPT-1160F Review of all medica tions by a prescribing practitioner SCT-203127389 Giving encouragement to exercise SCT-314891455 Current every day smoker 20 22/01/04 SCT-008076707 Smoking cessation education CPT-3075F Most recent systolic blood pressure 130-139 mm Hg CPT-3079F Most recent diastoli c blood pressure 80-89 mm Hg SCT-809008465616492 Medication Reconciliation SCT-987381437 Giving encouragement to exercise CPT-1159F Medication list docu mented in medical record X-Ray Hand Right X-Ray Hand Right CPT-1160F Review of all medica tions by a prescribing practitioner PAIN GEN Pain Management Referral General X-Ray Thoracic Spine X-Ray Thoracic Spine [facility] 6399 T1 CBC with diff [facility] 55453 T1 CMP [facility] 249 T2 TORRES [facility] 4418 T2 Rheumatoid Factor Quant 2 [facility] 809 T1 Sedimentation Rate RBC 20 24/10/25 CARD GEN Cardiology Referral General CPT-3075F Most recent systolic blood pressure 130-139 mm Hg CPT-3079F Most recent diastoli c blood pressure 80-89 mm Hg SCT-938548591375495 Medication Reconciliation SCT-353204320 Giving encouragement to exercise CPT-1159F Medication list docu mented in medical record CPT-1160F Review of all medica tions by a prescribing practitioner SCT-562521873 Current every day smoker 20 23/09/27 SCT-603578576 Smoking cessation education SCT-293078101 Smoking cessation education 35220 Flulaval Quadrivalent 09/30 CPT-45489 IMADM >18YR IM R[address] 1ST VAC/TOXOID 09/30 [id number] 340B Depo medrol 80mg/ml Injection 09/30 Inj Order Injection(s) Ordered [facility] 6399 T1 CBC with diff [facility] 76293 T1 CMP [facility] 496 T1 HGBA1c [facility] 06398 T1 Lipid Panel [facility] 99728 T1 TSH reflex to free T4 09/03/27 [facility] 74264 T1 Acute Hepatits Panel 2020 CPT-1159F Medication list docu mented in medical record SCT-[id number] Medication Reconciliation SCT-255597451 Giving encouragement to exercise [facility] 06685 Patient Pay- COVID-19 09/18 X-Ray Chest X-Ray Chest SCT-[id number] Medication Reconciliation SCT-132049628 Giving encouragement to exercise CPT-3074F Most recent systolic blood pressure <130 mm Hg CPT-3078F Most recent diastoli c blood pressure <80 mm Hg PAIN GEN Pain Management Referral General CPT-1159F Medication list docu mented in medical record CPT-1160F Review of all medica tions by a prescribing practitioner [facility] F8318 T1 Drug Screen STAND RACHELE-Urine w/o Confirmation SCT-[id number] Medication Reconciliation Mammo ANAND Mammogram SCT-127005130 Giving encouragement to exercise [facility] 6399 T1 CBC with diff [facility] 40426 T1 CMP [facility] 38491 T1 Acute Hepatits Panel 2019 [facility] 14127 T1 Lipid Panel [facility] 63574 T1 TSH reflex to free T4 202 [facility]-[id number] [facility] Vital Signs Date Name Value Unit Description [...]
--- OUTSIDE RECORDS SUMMARY | 2025-05-21 16:52 | XMS_ITS | Clinical Summary ---
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 04/04/2023 Hyperlipidemia LDL [...] ZOSTER VACCINE (2 of 2) 07/24/2023 05/29/2023 INFLUENZA VACCINE 04/03/2025 05/29/2023, , 07/07/2019 MAMMOGRAM 11/07/2025 11/08/2023, 07/0 [...] PM EST 10/26/2016 Comment:ARM L Narrative [facility] ([facility]) - 10/26/2016 11:12 AM EST Performed at: 01 - [facility] [address] [place], [place] [id number] Wax Pattern Coater: Dhiraj Awad PhD, Phone: [phone] us Iona Craig PAAmanda LAB BLOOD ORDERABLES Final Result [facility] ([facility]) [address] [place] [address], [place] [phone] [facility] [address] [place] [address], [place] [phone] from Last 3 Months or Most Recently Relevant to Health Maintenance Insurance [employer] [facility] HMO NON PAR Care Teams Solar Energy Systems Designer Relationship Specialty Start Date End Date Marvel Grayson MD [address] [place] [address] PCP - General Family Medicine 03/14/23
--- OUTSIDE RECORDS SUMMARY | 2025-05-21 16:52 | XMS_ITS ---
Author Organization Unknown [facility] Start Date Provider Encounter for Check-up [id number] [facility]
--- NOTE | 2025-05-21 17:00 | MM_ITS ---
PROCEDURE INFORMATION: Exam: MG Bilateral Screening 3D Mammography Exam date and time: 05/21/2025 4:52 PM Age: 54 years old Clinical indication: Pain. Her sister had breast cancer. TECHNIQUE: Imaging protocol: Bilateral Screening tomosynthesis and 2D mammography including computer-aided detection (CAD) when performed. COMPARISON: MG Breast Tomosynthesis Bilateral 11/08/2023 11:24 AM FINDINGS: MAMMOGRAPHY: Breast composition: There are scattered areas of fibroglandular density. Mass: Question 0.5 cm mass/circumscribed asymmetry in the left upper breast posterior 3rd, 9-11 cm from the nipple, better seen in the MLO frame 16 then CC frame 27. Architectural distortion: None. Calcifications: No suspicious calcifications. Asymmetric density: None. Skin thickening: None. Axillary adenopathy: None. IMPRESSION: Patient will be recalled for left diagnostic mammography with spot compression CC and MLO and left sonography for further evaluation of a questionable mass. ASSESSMENT: BI-RADS Category 0: Incomplete: Need Additional Imaging Evaluation.
== END 2025-05-21 23:59 | disposition home or self-care (01) ==
LOC: RAD 16:50
PROVIDERS: PCP Internal Medicine; Visit Provider Internal Medicine
DX: Z12.31 Encounter for screening mammogram for malignant neoplasm of breast (principal); R92.323 Mammographic fibroglandular density, bilateral breasts; R92.8 Other abnormal and inconclusive findings on diagnostic imaging of breast; Z80.3 Family history of malignant neoplasm of breast
CPT/HCPCS: 77063; 77067

== ENCOUNTER 2025-07-02 13:49 | Outpatient (CLI) | payer MEDICARE, MEDICAID, SELFPAY ==
--- OUTSIDE RECORDS SUMMARY | 2024-06-03 12:20 | XMS_ITS ---
Author Organization [facility] Address [address] [place] [address] Care Team Providers Care Cp Bleacher Operator Name Role Phone Kenan CORONADO, Marvel Doyle [phone] REASON FOR VISIT 3 mon f/u Encounters Encounter Location Date Provider Diagnosis [address] [address] 06/03/2024 Marvel Grayson Plan Of Treatment No Information Progress Notes * Tiffanie SHABAZZDOB:1970 (54 yo F)Acc No.[id number]:06/03/2024 Progress Note Patient: Tiffanie Marinelli Provider: Mendoza Grayson M.D. :1970 A ge:53 Y S ex:Female Date:06/03/2024 Address:[address] [place], [place] [phone] Subjective: * Chief Complaints: * 3 mon f/u Care Plan Details* * Electronic signature of Alisson Grayson MD, MD on 07/02/2025 at 02:06 PM EDT Sign off status: Pending * Provider: Mendoza Grayson M.D. Date: Generated for Sarabjit zavala/Taisha/eTransmitting on: 02:06 PM EDT
--- OUTSIDE RECORDS SUMMARY | 2024-06-26 09:30 | XMS_ITS ---
Author Organization [facility] Address [address] [place] [address] Care Team Providers Care Butcher'S Assistant Name Role Phone Kenan CORONADO Marvel Unavailable [phone] Results Component Value Reference Range Flag Notes CULTURE, URINE, ROUTINE Reviewed date:07/08/2024 11:14:31 AM Interpretation: Performing Lab:[id number], [id number] Walter Carias Notes/Report: Received Date: [id number] 0 0 CULTURE, URINE, ROUTINE See Note CULTURE, URINE, ROUTINE Micro Number: [id number] Test Status: Final Specimen Source: Urine Specimen Quality: Adequate Result: Mixed genital sigifredo isolated. These superficial bacteria are not indicative of a urinary tract infection. No further organism identification is warranted on this specimen. If clinically indicated, recollect clean-catch, mid-stream urine and transfer immediately to Urine Culture Transport Tube. URINALYSIS, REFLEX TO MICROS COPIC Reviewed date:07/08/2024 11:14:31 AM Interpretation: Performing Lab:[facility]-[id number], [id number] Walter Carias Notes/Report: Received Date: [id number] 0 0 COLOR YELLOW YELLOW N APPEARANCE [...] Active Encounters Encounter Location Date Provider Diagnosis [address] [address] 06/26/2024 Marvel Grayson Biliuria R82.2 and Vitamin [...] * SHABAZZ Tiffanie ArreguinDOB:1970 (54 yo F)Acc No.[id number]:06/26/2024 Progress Note Patient: Tiffanie Marinelli Provider: Mendoza Grayson M.D. :1970 A ge:53 Y S ex:Female Date:06/26/2024 Address:[address] [place] [address] Subjective: * Chief Complaints: * B 12 [...] - * Procedure Codes: J 3420 Vitamin B-3905405 Therapeutic Injection * Follow Up: [facility] Billing Information: * Procedure Codes: J3420 Vitamin B-12. 18242 Therapeutic Injection. * Electronic signature of Alisson Grayson MD, on 07/02/2025 at 02:04 PM EDT Sign off status: Pending * Provider: Mendoza Grayson M.D. Date: Generated for Sarabjit zavala/Taisha/Angelicaransmitting on: 02:04 PM EDT
--- OUTSIDE RECORDS SUMMARY | 2024-07-02 10:20 | XMS_ITS ---
Author Organization [employer] [facility] Address [address] [place] [address] Care Team Providers Care Matrix Plater Name Role Phone Marvel Grayson MD Unavailable [phone] REASON FOR VISIT B12 Medications Medication SIG [...] Active Encounters Encounter Location Date Provider Diagnosis [address] [address] 07/02/2024 Marvel Grayson Vitamin B12 deficien cy [...] Notes * Tiffanie SHABAZZDOB:1970 (54 yo F)Acc No.[id number]:07/02/2024 Progress Note Patient: Tiffanie Marinelli Provider: Mendoza Grayson M.D. :1970 A ge:53 Y S ex:Female Date:07/02/2024 Address:[address] [place], [place] [phone] Subjective: * Chief Complaints: * B 12 [...] deltoid * Procedure Codes: J 3420 Vitamin B-1792540 Therapeutic Injection * Follow Up: 1 Week Billing Information: * Procedure Codes: J3420 Vitamin B-12. 29580 Therapeutic Injection. * Electronic signature of Alisson Grayson MD, on 07/02/2025 at 02:05 PM EDT Sign off status: Pending * Provider: Mendoza Grayson M.D. Date: Generated for Sarabjit zavala/Taisha/Abelino on: 02:05 PM EDT
--- OUTSIDE RECORDS SUMMARY | 2024-07-17 10:10 | XMS_ITS ---
Author Organization [facility] Address [address] [place] [address] Care Team Providers Care Topper Packer Name Role Phone Marvel Grayson MD Unavailable [phone] REASON FOR VISIT B12 Medications Medication SIG [...] Active Encounters Encounter Location Date Provider Diagnosis [address] [address] 07/17/2024 Marvel Grayson Vitamin B12 deficiency anemia [...] Notes * Tiffanie SHABAZZDOB:1970 (54 yo F)Acc No.[id number]:07/17/2024 Progress Note Patient: Tiffanie Marinelli Provider: Mendoza Grayson M.D. :1970 A ge:53 Y S ex:Female Date:07/17/2024 Address:[address] [place], [place] [phone] Subjective: * Chief Complaints: * B 12 [...] deltoid * Procedure Codes: J 3420 Vitamin B-7042104 Therapeutic Injection * Follow Up: [facility] Billing Information: * Procedure Codes: J3420 Vitamin B-12. 57088 Therapeutic Injection. * Electronic signature of Alisson Grayson MD, on 07/02/2025 at 02:06 PM EDT Sign off status: Pending * Provider: Mendoza Grayson M.D. Date: 09/16/2023 Generated for Sarabjit zavala/Taisha/Abelino on: 02:06 PM EDT
--- OUTSIDE RECORDS SUMMARY | 2024-07-21 11:30 | XMS_ITS ---
Author Organization [employer] [facility] Address [address] [place] [address] Care Team Providers Care Ciaio Counter Molder Name Role Phone Marvel Grayson MD Unavailable [phone] REASON FOR VISIT b12 Medications Medication SIG [...] Risk Notes Problem Vitamin B>12< deficiency anaemia (16820998) Vitamin B12 deficiency anemia, unspecified (D51.9) Active confirmed Encounters Encounter Location Date Provider Diagnosis [address] [address] 07/21/2024 Marvel Grayson Vitamin B12 deficien cy [...] Notes * Tiffanie SHABAZZDOB:1970 (54 yo F)Acc No.[id number]:07/21/2024 Progress Note Patient: Tiffanie Marinelli Provider: Mendoza Grayson M.D. :1970 A ge:53 Y S ex:Female Date:07/21/2024 Address:[address] [place], [place] [id number] Subjective: * Chief Complaints: * B 12 [...] deltoid * Procedure Codes: J 3420 Vitamin B-0201588 Therapeutic Injection * Follow Up: p rn Billing Information: * Procedure Codes: J3420 Vitamin B-12. 99262 Therapeutic Injection. * Electronic signature of Alisson Grayson MD, MD on 07/02/2025 at 02:02 PM EDT Sign off status: Pending * Provider: Mendoza Grayson M.D. Date: 09/20/2023 Generated for Sarabjit zavala/Taisha/Abelino on: 02:02 PM EDT
--- OUTSIDE RECORDS SUMMARY | 2024-11-13 07:30 | XMS_ITS ---
Author Organization [facility] Address [address] [place] [address] Care Team Providers Care Car Wash Attendant Name Role Phone Marvel Grayson MD Unavailable [phone] REASON FOR VISIT B12 Medications Medication SIG [...] Active Encounters Encounter Location Date Provider Diagnosis [address] [address] 11/13/2024 Marvel Grayson Vitamin B12 deficien cy [...] Notes * Tiffanie SHABAZZDOB:1970 (54 yo F)Acc No.[id number]:11/13/2024 Progress Note Patient: Tiffanie Marinelli Provider: Mendoza Grayson M.D. :1970 A ge:54 Y S ex:Female Date:11/13/2024 Address:[address] [place], [place] [id number] Subjective: * Chief Complaints: * B 12 [...] deltoid * Procedure Codes: J 3420 Vitamin B-[id number] Therapeutic Injection * Follow Up: p clinton Billing Information: * Procedure Codes: J3420 Vitamin B-12. 45266 Therapeutic Injection. * Electronic signature of Alisson Grayson MD, MD on 07/02/2025 at 02:06 PM EDT Sign off status: Pending * Provider: Mendoza Grayson M.D. Date: 11/13/2024 Generated for Sarabjit zavala/Taisha/Abelino on: 1 02:06 PM EDT
--- OUTSIDE RECORDS SUMMARY | 2025-02-07 17:30 | XMS_ITS ---
Author Organization [employer] [facility] Address [address] [place] [address] Care Team Providers Care Community Arts Officer Name Role Phone Migration, Provider Unavailable Unavailable [...] Activ e REASON FOR VISIT [facility] Encounter Medications Medication SIG (Take, Route, [...] review and pick correct strength-formulat ion from [facility]. If intended option is not shown, discontinue and re-order from Quick Search* 01/23/2023 Not-Taking/ PRN Vitamin D3 125 MCG CAPSULE 1 CAP(S) ORALLY ONCE A DAY; Duration: 90 DAYS *Please review and pick correct strength-formulat ion from [employer] options. If intended option is not shown, [...] review and pick correct strength-formulat ion from [employer] options. If intended option is not shown, [...] Active Encounters Encounter Location Date Provider Diagnosis [address] [place] [address] 02/07/2025 Provider Migration Plan Of Treatment No Information Progress Notes * Tiffanie GRANTDOB:1970 (54 yo F)Acc No.[id number]:02/07/2025 Patient: Tiffanie Marinelli Provider: :1970 A ge:54 Y S ex:Female Date:02/07/2025 Address:[address] [place] [address] Subjective: * Chief Complaints: * [facility] En[facility] * Medications: T akingBudesonide 1 [...] *Please review and pick correct strength-formulation from [employer] options. If intended option is not shown, [...] *Please review and pick correct strength-formulation from [employer] options. If intended option is not shown, [...] *Please review and pick correct strength-formulation from [employer] options. If intended option is not shown, [...] *Please review and pick correct strength-formulation from [employer] options. If intended option is not shown, [...] *Please review and pick correct strength-formulation from [employer] options. If intended option is not shown, discontinue and re-order from Quick Search*Albuterol Sulfate (2.5 MG/3ML) 0.083% Nebulization Solution 3 mL by nebulizer every 6 hours Not-Taking/PRN tiZANidine HCl 2 MG Tablet 1 tab orally bedtime prn Not-Taking/PRN Proventil HFA 90 MCG/INH AEROSOL 2 PUFF(S) INHALED EVERY 6 HOURS , Notes to Pharmacist: *Please review and pick correct strength-formulation from [employer] options. If intended option is not shown, discontinue and re-order from Quick Search*Not-Taking/PRN Albuterol Sulfate (2.5 MG/3ML) 0.083% Nebulization Solution 3 mL by nebulizer every 6 hours * Allergies: C odeine: anaphylaxisUltram: anaphylaxisHaldol: anaphylaxisCymbalta: Side EffectsVraylar: Side EffectsDoxycycline: stomach upset * Electronic signature of Prov ider Migration on 07/02/2025 at 02:00 PM EDT Sign off status: Pending * Provider: Date: 0 02/07/2025 Generated for Sarabjit zavala/Taisha/Abelino on: 02:00 PM EDT
--- OUTSIDE RECORDS SUMMARY | 2025-05-28 13:45 | XMS_ITS | Encounter Summary ---
Author Organization [employer] ([place], [place], [place], [place]) Address [address] [place] [address] Care Team Providers Care Block Hacker Name Role Phone Marvel Grayson MD Primary Care Provider [phone] Reason for Referral * Diagnostic X-Ray (Routine) - Closed Specialty Diagnoses / Procedures Referred By Cherelle balderas Referred To Contact Radiology Diagnoses Community acquired bacterial pneumonia Procedures X-ray chest PA and lateral Ben Barrios MD [address] [facility] [address] [place] [address] Phone: tel: fax: [facility] Diagnostic Imaging - [facility] [address] [facility] [address] [place] [address] Phone: tel: fax: Referral ID Status Reason Start Date Expiration Date Visits Re quested Visits Authorized [id number] Closed 05/28/2025 05/28/2026 1 1 * CAT Scan (Routine) - New Request Specialty Diagnoses / Procedures Referred By Cherelle balderas Referred To Contact Radiology Diagnoses Pulmonary nodules/lesions, multiple Procedures CT CHEST WITHOUT IV CONTRAST Ben Barrios MD [address] [facility] [address] [place] [address] Phone: tel: fax: [facility] Imaging CT - [facility] [address] [facility] [address] [place] [address] Phone: tel: fax: Referral ID Status Reason Start Date Expiration Date V isits Requested Visits Authorized [id number] New Request 11/02/2025 11/18/2026 1 1 Reason for Visit * Reason Comments Shortness of Breath Cough Chest Pain Patient returns for COPD and nodule f/u. She uses 2 liters of Oxygen at night. Today she isn't feeling well, has cough/soa/chest discomfort/wheezing some. Encounter Details Date Type Department Care Team (Late st Contact Info) Description 05/28/2025 1:45 PM EDT Office Visit [facility] Pulmonology - [facility] [address] [facility] [address] [place] [address] Ben Barrios MD [address] [facility] [address] [place] [address] Solitary pulmonary nodule (Primary Dx); Pulmonary nodules/lesions, [...] Date Thanh rded Speak language other than Danish at home Not on file 09/21/2023 Want [...] 2:19 PM EDT Oxygen Saturation 90% 05/28/2025 2:1 9 PM EDT RA Inhaled Oxygen Concentration - [...] albuterol. - Patient also had history of [place] s/p stent LAD and was on Brilinta and it was stopped recently because she finish for a year. Currently she is only on aspirin. 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 Patient had elective procedure for adrenalectomy with Dr. Avila in [facility] She has tachycardia status post pheochromocytoma resection. She is currently taking metoprolol and will see a new cane loader because of her insurance change. She used to see [facility]. Chamorro at [facility]. She was referred to Dr. White at [...] and I have recommended to follow-up with cane loader. She saw 2 weeks ago ADMITTING CLERK Candy Loredo, was told echo was wnl, [...] discharge from hospital. Patient admitted 08/16/2024) for [facility] for shortness of breath with low-grade fever [...] was treated for acute COPD exacerbation in [facility]. Flu and COVID-negative. Patient just finished prednisone [...] I, Dr. Barrios have personally performed a xyec-xk-hazy diagnostic evaluation on this patient. I have reviewed labs, radiologic data and created the care plan. Clinical condition and plan discussed with patient. Answered all questions. documented in this encounter Plan of Treatment Upcoming Encounters Date Type Department Care Team (Late st Contact Info) Description 11/03/2025 12:45 PM EST Office Visit [facility] Pulmonology - [address] [place] [address] Ben Barrios MD [address] [place] [address] Scheduled Orders Name Type Priority [...] pneumonia documented in this encounter Care Teams Block Hacker Relationship Specialty Start Date End Date Marvel Grayson MD PCP - General Family Medicine 05/17/23 Marvel Grayson [address] [place] [address] Family Practice 04/09/23 documented as of this encounter
--- OUTSIDE RECORDS SUMMARY | 2025-05-28 15:24 | XMS_ITS | Encounter Summary ---
Author Organization [facility] ([place], [place], [place], [place]) Address [address] [place] [address] Care Team Providers Care Electrical Construction Project Manager Name Role Phone Marvel Grayson MD Primary Care Provider [phone] Reason for Referral * Diagnostic X-Ray (Routine) - Closed Specialty Diagnoses / Procedures Referred By Cherelle t Referred To Contact Radiology Diagnoses Community acquired bacterial pneumonia Procedures X-ray chest PA and lateral Ben Barrios MD [address] [facility] [address] [place] [address] Phone: tel: fax: [facility] - [facility] [address] [place] [address] Phone: tel: fax: Referral ID Status Reason Start Date Expiration Date Visits Re quested Visits Authorized [id number] Closed 05/28/2025 05/28/2026 1 1 Reason for Visit * Diagnostic X-Ray (Routine) - Closed Specialty Diagnoses / Procedures Referred By Cherelle t Referred To Contact Radiology Diagnoses Community acquired bacterial pneumonia Procedures X-ray chest PA and lateral Ben Barrios MD [address] [facility] [address] [place] [address] Phone: tel: fax: [facility] - [address] [place] [address] Phone: tel: fax: Referral ID Status Reason Start Date Expiration Date Visits Re quested Visits Authorized [id number] Closed 05/28/2025 05/28/2026 1 1 Encounter Details Date Type Department Care Team (Latest Contact Info) Description 05/28/2025 3:24 PM EDT - 05/28/2025 11:59 PM EDT Hospital Encounter [facility] - [address] [place] [address] Ben Barrios MD [address] [place] [address] Community acquired bacterial pneumonia Discharge Disposition: Home [...] Date Thanh rded Speak language other than Romanian at home Not on file 09/21/2023 Want [...] mcg/actuation inhalerIndications: COPD (chronic obstructive pulmonary disease) ([facility]) Inhale 2 puffs by mouth every 4 [...] (two) times daily. 4 miscellaneous medical supply [facility] 11/13/19 2 5 nitroglycerin (NITROSTAT) 0.4 MG SL tablet 1 Tab, SubLINgual, Tab, Q5Min, PRN Chest Pain, # 100 Tab, 0 Refill(s), Pharmacy: [facility]/pharmacy #[id number], 180.34, cm, 10/23/21 13:50:00 EST, CLINICALHEIGHT, 88.64, kg, 10/23/21 13:50:00 EST, CLINICALWEIGHT 2 ondansetron (ZOFRAN-ODT) 4 MG disintegrating tablet Take 1 tablet (4 mg total) by mouth. 4 promethazine-DM (PROMETHAZINE-DM) 6.25-15 mg/5 mL syrup 5 mL orally every 6 hours for 15 days 5 roflumilast (DALIRESP) 250 mcg tabletIndications:C OPD (chronic obstructive pulmonary disease) (HCC),Chronic bronchitis, unspecified chronic bronchitis type (HCC),Pulmonary emphysema, unspecified emphysema type Take 1 tablet (250 mcg total) by mouth daily. 30 tablet 5 5 tiZANidine (ZANAFLEX) 2 MG tablet 1 [...] onic obstructive pulmonary disease, unspecified COPD type (HCC) Inhale 1 puff by mouth daily. 60 each 2 05/29/20 25 documented as of this encounter Plan of Treatment Upcoming Encounters Date Type Department Care Team (Late st Contact Info) Description 11/03/2025 12:45 PM EST Office Visit [facility] Pulmonology - [address] [place] [address] Ben Barrios MD [address] [place] [address] documented as of this encounter Procedures Procedure [...] pneumonia documented in this encounter Care Teams Electrical Construction Project Manager Relationship Specialty Start Date End Date Marvel Grayson MD PCP - General Family Medicine 05/17/23 Marvel Grayson [address] [place] [address] Family Practice 04/09/23 documented as of this encounter
--- NOTE | 2025-07-02 14:00 | MM_ITS ---
PROCEDURE INFORMATION: Exam: US Left Breast, Complete MG Left Diagnostic Breast Tomosynthesis Exam date and time: 07/02/2025 1:54 PM Age: 54 years old Clinical indication: Patient recalled on the basis of left breast finding on screening. TECHNIQUE: Imaging protocol: Complete ultrasound of all four quadrants of the left breast and the retroareolar regions, including ultrasound of the axilla when performed. Left Diagnostic tomosynthesis and 2D mammography including computer-aided detection (CAD) when performed. Unilateral or bilateral exam. COMPARISON: MG MM DIG SCREENING MAMM BI W/CAD 05/21/2025 4:52 PM FINDINGS: MAMMOGRAPHY: Breast composition: There are scattered areas of fibroglandular density. Breast mammogram findings: Spot compression views demonstrate a 0.7 cm oval asymmetry in the lateral aspect of the left breast at the middle to posterior depth, believed to be in the upper outer quadrant. ULTRASOUND: Breast ultrasound findings: In the left breast 2 o'clock axis, 8 cm from the nipple, there is a questionable indistinct mass measuring 0.5 x 0.5 x 0.5 cm. There is questionable associated shadowing. This appears to correlate to the mammogram finding. There is no lymphadenopathy by size or morphologic criteria. IMPRESSION: Indeterminate mass in the left breast 2 o'clock axis, 8 cm from the nipple that is believed to correlate to the mammogram finding. Ultrasound-guided needle biopsy is recommended. ASSESSMENT: BI-RADS Category 4: Suspicious.
--- OUTSIDE RECORDS SUMMARY | 2025-07-02 14:00 | XMS_ITS | Encounter Summary ---
Author Organization [employer] ([place], [place], [place], [place]) Address [address] [place] [address] Care Team Providers Care Solderer Barrel Ribs Name Role Phone Amie Pena MD Primary Care Provider [phone] Marvel Grayson MD Primary Care Provider [phone] Encounter Details Date Type Department Care Team (Late st Contact Info) Description 07/17/2019 Transcribed Document [facility] [place] [address] [place] [address] ProviderMik MD [address] [place] [address] Social History Tobacco Use Types Packs/Day Years Used Date Smoking Tobacco: Never Assessed Comments Unknown Sex and Gender Information Value Date Recorded Sex Assigned at Not on file Legal Sex Female 6:09 PM CDT Gender Identity Not on file Sexual Orientation Not on file documented as of this encounter Miscellaneous Notes * Cerner Conversion Note - Mik Thorne MD - 07/17/2019 1:53 PM CREDIT INTERVIEWER UM Authorization Entered On: 07/17/2019 13:53 EST Performed On: 07/17/2019 13:53 EST by FREDERIC PHAM RN-Utilization Review Primary Insurance Authorization Authorization and Policy Numbers : Insurance 1 Health Plan: [employer] Policy Number: [id number] Authorization Number: Insurance Primary Name : [employer] Authorization Status-Primary : Awaiting callback Reference Number-Primary : [id number] Number of Days Authorized-Primary : 1 Day(s) Authorized Service Begin Date-Primary : 07/05/2019 EDT Authorized Service End Date-Primary : 07/06/2019 EDT Authorization Comments-Primary : [facility] approved per website Historical Authorization Comments-Primary : Comment 1: UHC auth still pending per website (FREDERIC PHAM RN-Utilization Review 07/15/2019 12:33) Comment 2: [employer]HC auth still pending per website (FREDERIC PHAM RN-Utilization Review 07/11/2019 12:51) Comment 3: Per DM, initial clinicals requested despite clinicals having been attached to auth on [facility] Portal. Clinicals faxed via [employer]. (SHAAN RICHTER Rn-Utilization Review 07/10/2019 15:26) Comment 4: C auth still pending per website (FREDERIC PHAM RN-Utilization Review 07/10/2019 10:04) Comment 5: C auth still pending per website (FREDERIC PHAM RN-Utilization Review 07/09/2019 09:54) Comment 6: C auth still pending per website (FREDERIC PHAM RN-Utilization Review 07/08/2019 13:30) Comment 7: C auth still pending per website (FREDERIC PHAM RN-Utilization Review 07/07/2019 13:48) Comment 8: Clinicals submitted via [facility] portal. (SHAAN RICHTER Rn-Utilization Review 07/06/2019 09:45) Comment 9: Reference number retrieved from [facility] portal. (SHAAN RICHTER Rn-Utilization Review 07/06/2019 09:37) FREDERIC PHAM RN-Utilization Review - 07/17/2019 13:53 EST documented in this encounter Plan of Treatment Upcoming Encounters Date Type Department Care Team (Late st Contact Info) Description 11/03/2025 12:45 PM EST Office Visit [facility] Pulmonology - [address] [place] [address] Ben Barrios MD [address] [place] [address] documented as of this encounter Visit Diagnoses Not on filedocumented in this encounter Care Teams Solderer Barrel Ribs Relationship Specialty Start Date End Date Amie Pena MD [address] [place] [address] [place] [address] PCP - General Family Medicine 10/31/22 04/08/23 Marvel Grayson MD [address] [place] [address] [place] [address] PCP - General Family Medicine 05/17/23 Marvel Grayson [address] [place], [place] [id number] Family Practice 04/09/23 documented as of this encounter
--- OUTSIDE RECORDS SUMMARY | 2025-07-02 14:00 | XMS_ITS | Encounter Summary ---
Author Organization [employer] ([place], [place], [place], [place]) Address [address] [place] [address] Care Team Providers Care Engagement Engineer Name Role Phone Amie Pena MD Primary Care Provider [phone] Marvel Grayson MD Primary Care Provider [phone] Encounter Details Date Type Department Care Team (Late st Contact Info) Description 07/17/2019 Transcribed Document [facility] [place] [address] [place] [address] ProviderMik MD [address] [place] [address] Social History Tobacco Use Types Packs/Day [...] Mik Thorne MD - 07/17/2019 1:53 PM FIRE OFFICIAL UM Authorization Entered On: 07/17/2019 13:53 EST Performed On: 07/17/2019 13:53 EST by FREDERIC PHAM RN-Utilization Review Primary Insurance Authorization Authorization and Policy Numbers : Insurance 1 Health Plan: [employer] Policy Number: [id number] Authorization Number: Insurance Primary Name : [facility] [id number] Authorization Status-Primary : Awaiting callback Reference Number-Primary : [id number] Authorization Number-Primary : [id number] Number of Days Authorized-Primary : 1 Day(s) Authorized Service Begin Date-Primary : 07/05/2019 EDT Authorized Service End Date-Primary : 07/06/2019 EDT Historical Authorization Comments-Primary : Comment 1: [employer] approved per website (FREDERIC PHAM RN-Utilization Review 07/17/2019 13:53) Comment 2: UHC auth still pending per website (FREDERIC PHAM RN-Utilization Review 07/15/2019 12:33) Comment 3: UHC auth still pending per website (FREDERIC PHAM RN-Utilization Review 07/11/2019 12:51) Comment 4: Per DM, initial clinicals requested despite clinicals having been attached to auth on [facility] Portal. Clinicals faxed via [employer]. (SHAAN RICHTER Rn-Utilization Review 07/10/2019 15:26) Comment 5: C auth still pending per website (FREDERIC PHAM RN-Utilization Review 07/10/2019 10:04) Comment 6: UHC auth still pending per website (FREDERIC PHAM RN-Utilization Review 07/09/2019 09:54) Comment 7: UHC auth still pending per website (FREDERIC PHAM RN-Utilization Review 07/08/2019 13:30) Comment 8: UHC auth still pending per website (FREDERIC PHAM RN-Utilization Review 07/07/2019 13:48) Comment 9: Clinicals submitted via [facility] portal. (SHAAN RICHTER Rn-Utilization Review 07/06/2019 09:45) Comment 10: Reference number retrieved from [facility] portal. (SHAAN RICHTER Rn-Utilization Review 07/06/2019 09:37) FREDERIC PHAM RN-Utilization Review - 07/17/2019 13:53 EST documented in this encounter Plan of Treatment Upcoming Encounters Date Type Department Care Team (Late st Contact Info) Description 11/03/2025 12:45 PM EST Office Visit [facility] Pulmonology - [address] [place] [address] Ben Barrios MD [address] [facility] [address] [place] [address] documented as of this encounter Visit Diagnoses Not on filedocumented in this encounter Care Teams Engagement Engineer Relationship Specialty Start Date End Date Amie Pena MD [address] [place] [address] PCP - General Family Medicine 10/31/22 04/08/23 Marvel Grayson MD [address] [place] [address] PCP - General Family Medicine 05/17/23 Marvel Grayson [address] [place] [address] Family Practice 04/09/23 documented as of this encounter
--- OUTSIDE RECORDS SUMMARY | 2025-07-02 14:00 | XMS_ITS | Encounter Summary ---
Author Organization [employer] ([place], [place], [place], [place]) Address [address] [place] [address] Care Team Providers Care Construction Services Technician Name Role Phone Amie Pena MD Primary Care Provider [phone] Marvel Grayson MD Primary Care Provider [phone] Encounter Details Date Type Department Care Team (Late st Contact Info) Description 07/15/2019 Transcribed Document [facility] [place] [address] [place] [address] ProviderMik MD [address] [place] [address] Social History Tobacco Use Types Packs/Day Years Used Date Smoking Tobacco: Never Assessed Comments Unknown Sex and Gender Information Value Date Recorded Sex Assigned at Not on file Legal Sex Female 6:09 PM CDT Gender Identity Not on file Sexual Orientation Not on file documented as of this encounter Miscellaneous Notes * Cerner Conversion Note - Mik Thorne MD - 07/15/2019 12:33 PM PERISHABLE FRUIT INSPECTOR UM Authorization Entered On: 07/15/2019 12:33 EST Performed On: 07/15/2019 12:33 EST by FREDERIC PHAM RN-Utilization Review Primary Insurance Authorization Authorization and Policy Numbers : Insurance 1 Health Plan: [employer] Policy Number: [id number] Authorization Number: Insurance Primary Name : [facility] Authorization Status-Primary : Awaiting callback Reference Number-Primary : [id number] Authorized Service Begin Date-Primary : 07/05/2019 EDT Authorization Comments-Primary : [facility] auth still pending per website Historical Authorization Comments-Primary : Comment 1: C auth still pending per website (FREDERIC PHAM RN-Utilization Review 07/11/2019 12:51) Comment 2: Per DM, initial clinicals requested despite clinicals having been attached to auth on [facility] Portal. Clinicals faxed via [employer]. (SHAAN RICHTER Rn-Utilization Review 07/10/2019 15:26) Comment 3: C auth still pending per website (FREDERIC PHAM RN-Utilization Review 07/10/2019 10:04) Comment 4: C auth still pending per website (FREDERIC PHAM RN-Utilization Review 07/09/2019 09:54) Comment 5: C auth still pending per website (FREDERIC PHAM RN-Utilization Review 07/08/2019 13:30) Comment 6: C auth still pending per website (FREDERIC PHAM RN-Utilization Review 07/07/2019 13:48) Comment 7: Clinicals submitted via [facility] portal. (SHAAN RICHTER Rn-Utilization Review 07/06/2019 09:45) Comment 8: Reference number retrieved from [facility] portal. (SHAAN RICHTER Rn-Utilization Review 07/06/2019 09:37) FREDERIC PHAM RN-Utilization Review - 07/15/2019 12:33 EST documented in this encounter Plan of Treatment Upcoming Encounters Date Type Department Care Team (Late st Contact Info) Description 11/03/2025 12:45 PM EST Office Visit [facility] Pulmonology - [address] [place] [address] Ben Barrios MD [address] [place] [address] documented as of this encounter Visit Diagnoses Not on filedocumented in this encounter Care Teams Construction Services Technician Relationship Specialty Start Date End Date Amie Pena MD [address] [place] [address] [place] [address] PCP - General Family Medicine 10/31/22 04/08/23 Marvel Grayson MD [address] [place] [address] [place] [address] PCP - General Family Medicine 05/17/23 Marvel Grayson [address] [place] [address] Family Practice 04/09/23 documented as of this encounter
--- OUTSIDE RECORDS SUMMARY | 2025-07-02 14:00 | XMS_ITS | Encounter Summary ---
Author Organization [employer] ([place], [place], [place], [place]) Address [address] [place] [address] Care Team Providers Care Senior Data Developer Name Role Phone Amie Pena MD Primary Care Provider [phone] Marvel Grayson MD Primary Care Provider [phone] Encounter Details Date Type Department Care Team (Late st Contact Info) Description 10/29/2019 Transcribed Document [facility] [place] Family Medicine [address] [place] [address] ProviderMik MD [address] [place] [address] Social History Tobacco Use Types Packs/Day Years Used Date Smoking Tobacco: Never Assessed Comments Unknown Sex and Gender Information Value Date Recorded Sex Assigned at Not on file Legal Sex Female 6:09 PM CDT Gender Identity Not on file Sexual Orientation Not on file documented as of this encounter Miscellaneous Notes * Cerner Conversion Note - Historical ProviderMD - 10/29/2019 5:39 PM EMG TECHNICIAN Electronically signed by Karthikeyan Bean Conversion Interventional Neuroradiologist Cerner at 12/16/2022 10:37 AM CDT documented in this encounter Plan of Treatment Upcoming Encounters Date Type Department Care Team (Late st Contact Info) Description 11/03/2025 12:45 PM EST Office Visit [facility] Pulmonology - [address] [place] [address] Ben Barrios MD [address] [facility] [address] [place] [address] documented as of this encounter Visit Diagnoses Not on filedocumented in this encounter Care Teams Senior Data Developer Relationship Specialty Start Date End Date Amie Pena MD [address] [place] [address] PCP - General Family Medicine 10/31/22 04/08/23 Marvel Grayson MD [address] [place] [address] PCP - General Family Medicine 05/17/23 Marvel Grayson [address] [place] [address] Family Practice 04/09/23 documented as of this encounter
--- OUTSIDE RECORDS SUMMARY | 2025-07-02 14:01 | XMS_ITS | Encounter Summary ---
Author Organization [employer] ([place], [place], [place]) Address [address] [place] [address] Care Team Providers Care Material Mixer Name Role Phone Amie Pena MD Primary Care Provider [phone] Marvel Grayson MD Primary Care Provider [phone] Encounter Details Date Type Department Care Team (Late st Contact Info) Description 07/06/2019 Transcribed Document [facility] [place] [address] [place] [address] ProviderMik MD [address] [place] [address] Social History Tobacco Use Types Packs/Day Years Used Date Smoking Tobacco: Never Assessed Comments Unknown Sex and Gender Information Value Date Recorded Sex Assigned at Not on file Legal Sex Female 6:09 PM CDT Gender Identity Not on file Sexual Orientation Not on file documented as of this encounter Miscellaneous Notes * Cerner Conversion Note - Mik ProviderMD - 07/06/2019 2:27 PM HOT DIE PICKER Pain Assessment Entered On: 07/07/2019 12:53 EST Performed On: 07/07/2019 12:26 EST by Vy Salazar RN Intervention Information: acetaminophen-HYDROcodone Performed by Vy Salazar RN on 07/07/2019 11:26:00 EST acetaminophen-HYDROcodone,1Tab Oral,Pain (Moderate 4-6) Pain Assessment Pain Assessment : Follow-up assessment Pain Scale Goal : 4 Pain Scale Used : 0-10 Scale Vy Salazar RN - 07/07/2019 12:53 EST Pain Scale Intensity : 3 Vy Salazar RN - 07/07/2019 12:53 EST Image 4 - Images currently included in the form version of this document have not been included in the text rendition version of the form. Electronically signed by [place], [facility] Conversion Stockroom Selector Cerner at 12/16/2022 10:51 AM CDT documented in this encounter Plan of Treatment Upcoming Encounters Date Type Department Care Team (Late st Contact Info) Description 11/03/2025 12:45 PM EST Office Visit [facility] Pulmonology - [address] [place] [address] Ben Barrios MD [address] [place] [address] documented as of this encounter Visit Diagnoses Not on filedocumented in this encounter Care Teams Material Mixer Relationship Specialty Start Date End Date Amie Pena MD [address] [place] [address] [place] [address] PCP - General Family Medicine 10/31/22 04/08/23 Marvel Grayson MD [address] [place] [address] [place] [address] PCP - General Family Medicine 05/17/23 Marvel Grayson [address] [place] [address] Family Practice 04/09/23 documented as of this encounter
--- OUTSIDE RECORDS SUMMARY | 2025-07-02 14:01 | XMS_ITS | Encounter Summary ---
Author Organization [employer] ([place], [place], [place]) Address [address] [place] [address] Care Team Providers Care Manager Functional Name Role Phone Amie Pena MD Primary Care Provider [phone] Marvel Grayson MD Primary Care Provider [phone] Encounter Details Date Type Department Care Team (Late st Contact Info) Description 07/10/2019 Transcribed Document [facility] [place] [address] [place] [address] ProviderMik MD [address] [place] [address] Social History Tobacco Use Types Packs/Day Years Used Date Smoking Tobacco: Never Assessed Comments Unknown Sex and Gender Information Value Date Recorded Sex Assigned at Not on file Legal Sex Female 6:09 PM CDT Gender Identity Not on file Sexual Orientation Not on file documented as of this encounter Miscellaneous Notes * Cerner Conversion Note - Historical ProviderMD - 07/10/2019 3:25 PM FIRE CHIEF'S AIDE floor cleaner Form Entered On: 07/10/2019 15:25 EST Performed On: 07/10/2019 15:25 EST by SHAAN RICHTER Rn-Utilization Review UM Additional Information UM Additional Comment : REFAX OF CLINICALS. CLINICALS ORIGINALLY ATTACHED TO AUTH REQUEST IN [facility] PORTAL ON 07/06/19 SHAAN RICHTER Rn-Utilization Review - 07/10/2019 15:25 EST documented in this encounter Plan of Treatment Upcoming Encounters Date Type Department Care Team (Late st Contact Info) Description 11/03/2025 12:45 PM EST Office Visit [facility] Pulmonology - [address] [place] [address] Ben Barrios MD [address] [place] [address] documented as of this encounter Visit Diagnoses Not on filedocumented in this encounter Care Teams Manager Functional Relationship Specialty Start Date End Date Amie Pean MD [address] [place], [place] [address] [place] [address] PCP - General Family Medicine 10/31/22 04/08/23 Marvel Grayson MD [facility] [place] [address] PCP - General Family Medicine 05/17/23 Marvel Grayson [address] [place] [address] Family Practice 04/09/23 documented as of this encounter
--- OUTSIDE RECORDS SUMMARY | 2025-07-02 14:01 | XMS_ITS | Encounter Summary ---
Author Organization [employer] ([place], [place], [place], [place]) Address [address] [place] [address] Care Team Providers Care Sound Recording Technician Name Role Phone Amie Pena MD Primary Care Provider [phone] Marvel Grayson MD Primary Care Provider [phone] Encounter Details Date Type Department Care Team (Late st Contact Info) Description 07/06/2019 Transcribed Document [facility] [place] [address] [place] [address] ProviderMik MD [address] [place] [address] Social History Tobacco Use Types Packs/Day Years Used Date Smoking Tobacco: Never Assessed Comments Unknown Sex and Gender Information Value Date Recorded Sex Assigned at Not on file Legal Sex Female 6:09 PM CDT Gender Identity Not on file Sexual Orientation Not on file documented as of this encounter Miscellaneous Notes * Cerner Conversion Note - Mik Thorne MD - 07/06/2019 9:45 AM COTTAGE CHEESE MAKER UM Authorization Entered On: 07/06/2019 9:45 EST Performed On: 07/06/2019 9:45 EST by SHAAN RICHTER Rn-Utilization Review Primary Insurance Authorization Authorization and Policy Numbers : Insurance 1 Health Plan: [employer] Policy Number: [id number] Authorization Number: Insurance Primary Name : [employer] Authorization Status-Primary : Awaiting callback Reference Number-Primary : [id number] Authorized Service Begin Date-Primary : 07/05/2019 EDT Authorization Comments-Primary : Clinicals submitted via [facility] portal. Historical Authorization Comments-Primary : Comment 1: Reference number retrieved from [facility] portal. (SHAAN RICHTER Rn-Utilization Review 07/06/2019 09:37) SHAAN RICHTER Rn-Utilization Review - 07/06/2019 9:45 EST Electronically signed by [facility], [facility] Conversion Holistic Nutritionist Cerner at 12/16/2022 10:49 AM CDT documented in this encounter Plan of Treatment Upcoming Encounters Date Type Department Care Team (Late st Contact Info) Description 11/03/2025 12:45 PM EST Office Visit [facility] Pulmonology - [address] [place] [address] Ben Barrios MD [address] [place], [place] [address] documented as of this encounter Visit Diagnoses Not on filedocumented in this encounter Care Teams Sound Recording Technician Relationship Specialty Start Date End Date Amie Pena MD [address] [place] [address] [place] [address] PCP - General Family Medicine 10/31/22 04/08/23 Marvel Grayson MD [address] [place] [address] PCP - General Family Medicine 05/17/23 Marvel Grayson [address] [place] [address] Family Practice 04/09/23 documented as of this encounter
--- OUTSIDE RECORDS SUMMARY | 2025-07-02 14:01 | XMS_ITS | Encounter Summary ---
Author Organization [employer] ([place], [place]) Address [address] [place] [address] Care Team Providers Care Algorithm Developer Name Role Phone Amie Pena MD Primary Care Provider [phone] Marvel Grayson MD Primary Care Provider [phone] Encounter Details Date Type Department Care Team (Late st Contact Info) Description 10/29/2019 Transcribed Document [facility] [place] [address] [place] [address] ProviderMik MD [address] [place] [address] Social History Tobacco Use Types Packs/Day Years Used Date Smoking Tobacco: Never Assessed Comments Unknown Sex and Gender Information Value Date Recorded Sex Assigned at Not on file Legal Sex Female 6:09 PM CDT Gender Identity Not on file Sexual Orientation Not on file documented as of this encounter Miscellaneous Notes * Cerner Conversion Note - Historical ProviderMD - 10/29/2019 5:47 PM RESIDENT MANAGER CR Chest 1 Vw Portable Ordered: 10/29/2019 Modified Reason for Exam: chest pain 10/29/2019 16:38 10/29/2019 17:47 (WARD NICK) No further action required documented in this encounter Plan of Treatment Upcoming Encounters Date Type Department Care Team (Late st Contact Info) Description 11/03/2025 12:45 PM EST Office Visit [facility] Pulmonology - [address] [place] [address] Ben Barrios MD [address] [place] [address] documented as of this encounter Visit Diagnoses Not on filedocumented in this encounter Care Teams Algorithm Developer Relationship Specialty Start Date End Date Amie Pena MD [address] [place] [address] [place] [address] PCP - General Family Medicine 10/31/22 04/08/23 Marvel Grayson MD [address] [place] [address] [place] [address] PCP - General Family Medicine 05/17/23 Marvel Grayson [address] [place] [address] Family Practice 04/09/23 documented as of this encounter
--- OUTSIDE RECORDS SUMMARY | 2025-07-02 14:01 | XMS_ITS | Encounter Summary ---
Author Organization [employer] ([place], [place], [place], [place]) Address [address] [place] [address] Care Team Providers Care Machine Tool Dresser Name Role Phone Amie Pena MD Primary Care Provider [phone] Marvel Grayson MD Primary Care Provider [phone] Encounter Details Date Type Department Care Team (Late st Contact Info) Description 07/07/2019 Transcribed Document [facility] Family Medicine [address] [place] [address] ProviderMik MD [address] [place] [address] Social History Tobacco Use Types Packs/Day Years Used Date Smoking Tobacco: Never Assessed Comments Unknown Sex and Gender Information Value Date Recorded Sex Assigned at Not on file Legal Sex Female 6:09 PM CDT Gender Identity Not on file Sexual Orientation Not on file documented as of this encounter Miscellaneous Notes * Cerner Conversion Note - Historical ProviderMD - 07/07/2019 5:00 AM WATCH DIAL MAKER Chart Check - Review Order Profile Entered On: 07/07/2019 5:29 EST Performed On: 07/07/2019 5:00 EST by Max Pereyra, RN Chart Check Powerplans Initiated/Discontinued as Appropriate : Yes All Active Orders Reviewed : Yes Max Pereyra, RN - 07/07/2019 5:29 EST Electronically signed by [place] [facility] Conversion Drain Technician Cerner at 12/16/2022 10:46 AM CDT documented in this encounter Plan of Treatment Upcoming Encounters Date Type Department Care Team (Late st Contact Info) Description 11/03/2025 12:45 PM EST Office Visit [facility] Pulmonology - [address] [place] [address] Ben Barrios MD [address] [place] [address] documented as of this encounter Visit Diagnoses Not on filedocumented in this encounter Care Teams Machine Tool Dresser Relationship Specialty Start Date End Date Amie Pena MD [facility] [place] [address] PCP - General Family Medicine 10/31/22 04/08/23 Marvel Grayson MD [address] [place] [address] PCP - General Family Medicine 05/17/23 Marvel Grayson [address] [place] [address] Family Practice 04/09/23 documented as of this encounter
--- OUTSIDE RECORDS SUMMARY | 2025-07-02 14:01 | XMS_ITS | Encounter Summary ---
Author Organization [employer] ([place], [place], [place], [place]) Address [address] [place] [address] Care Team Providers Care Clinical Education Academic Coordinator Name Role Phone Amie Pena MD Primary Care Provider [phone] Marvel Grayson MD Primary Care Provider [phone] Encounter Details Date Type Department Care Team (Late st Contact Info) Description 10/29/2019 Transcribed Document [facility] Family Medicine [address] [place] [address] ProviderMik MD [address] [place] [address] Social History Tobacco Use Types Packs/Day Years Used Date Smoking Tobacco: Never Assessed Comments Unknown Sex and Gender Information Value Date Recorded Sex Assigned at Not on file Legal Sex Female 6:09 PM CDT Gender Identity Not on file Sexual Orientation Not on file documented as of this encounter Miscellaneous Notes * Cerner Conversion Note - Mik ProviderMD - 10/29/2019 5:54 PM ECHO VASCULAR TECH ED Discharge Entered On: 10/29/2019 17:54 EST Performed On: 10/29/2019 17:54 EST by Candy Forman RN Discharge Process Patient Disposition : Discharge Personal Belongings With Patient : Yes Patient Education Completed : Yes Teaching Evaluation : Verbalizes understanding IV Discontinued : Yes Nursing Documentation Completed : Yes Candy Forman RN - 10/29/2019 17:54 EST ED Discharge Discharge To : Home without planned follow-up Mode Of Departure : Private vehicle Accompanied By : Spouse Discharge Instructions Reviewed With, Opportunity For Questions Given : Patient, Spouse Prescriptions Given to Patient : No Medications Given to Patient : Candy Estevez, RN - 10/29/2019 17:54 EST Electronically signed by [place] [facility] Conversion Account Review Specialist Cerner at 12/16/2022 10:40 AM CDT documented in this encounter Plan of Treatment Upcoming Encounters Date Type Department Care Team (Late st Contact Info) Description 11/03/2025 12:45 PM EST Office Visit [facility] Pulmonology - [address] [place] [address] Ben Barrios MD [address] [place] [address] documented as of this encounter Visit Diagnoses Not on filedocumented in this encounter Care Teams Clinical Education Academic Coordinator Relationship Specialty Start Date End Date Amie Pena MD [address] [place] [address] [place] [address] PCP - General Family Medicine 10/31/22 04/08/23 Marvel Grayson MD [address] [place] [address] PCP - General Family Medicine 05/17/23 Marvel Grayson [address] [place] [address] Family Practice 04/09/23 documented as of this encounter
--- OUTSIDE RECORDS SUMMARY | 2025-07-02 14:01 | XMS_ITS | Encounter Summary ---
Author Organization [employer] ([place], [place], [place], [place]) Address [address] [place] [address] Care Team Providers Care Protection Consultant Name Role Phone Amie Pena MD Primary Care Provider Marvel Grayson MD Primary Care Provider [phone] Encounter Details Date Type Department Care Team (Late st Contact Info) Description 07/07/2019 Transcribed Document [facility] [place] [address] [place] [address] ProviderMik MD [address] [place] [address] Social History Tobacco Use Types Packs/Day Years Used Date Smoking Tobacco: Never Assessed Comments Unknown Sex and Gender Information Value Date Recorded Sex Assigned at Not on file Legal Sex Female 6:09 PM CDT Gender Identity Not on file Sexual Orientation Not on file documented as of this encounter Miscellaneous Notes * Cerner Conversion Note - Historical ProviderMD - 07/07/2019 11:23 AM MEDIA RELATIONS SPECIALIST CR Chest 1 Vw Portable Ordered: 07/05/2019 Modified Reason for Exam: SOA 07/06/2019 14:34 CR Spine Lumbar 2 or 3 Vws Ordered: 07/05/2019 Auth (Verified) Reason for Exam: Pain 07/06/2019 13:57 07/07/2019 11:23 (XOCHITL SHIELDS PA-C) Reviewed by Provider, No further action required x1 documented in this encounter Plan of Treatment Upcoming Encounters Date Type Department Care Team (Late st Contact Info) Description 11/03/2025 12:45 PM EST Office Visit [facility] Pulmonology - [address] [place] [id number] Ben Barrios MD [address] [place] [address] documented as of this encounter Visit Diagnoses Not on filedocumented in this encounter Care Teams Protection Consultant Relationship Specialty Start Date End Date Amie Pena MD [address] [place], [place] [address] [address] PCP - General Family Medicine 10/31/22 04/08/23 Marvel Grayson MD [facility] [place] [address] PCP - General Family Medicine 05/17/23 Marvel Grayson [address] [place] [address] Family Practice 04/09/23 documented as of this encounter
--- OUTSIDE RECORDS SUMMARY | 2025-07-02 14:01 | XMS_ITS | Encounter Summary ---
Author Organization [employer] ([place], [place], [place], [place]) Address [address] [place] [address] Care Team Providers Care Regulator Pin Inserter Name Role Phone Amie Pena MD Primary Care Provider [phone] Marvel Grayson MD Primary Care Provider [phone] Encounter Details Date Type Department Care Team (Late st Contact Info) Description 07/07/2019 Transcribed Document [facility] [place] Family Medicine [address] [place] [address] ProviderMik MD [address] [place] [address] Social History Tobacco Use Types Packs/Day Years Used Date Smoking Tobacco: Never Assessed Comments Unknown Sex and Gender Information Value Date Recorded Sex Assigned at Not on file Legal Sex Female 6:09 PM CDT Gender Identity Not on file Sexual Orientation Not on file documented as of this encounter Miscellaneous Notes * Cerner Conversion Note - Mik ProviderMD - 07/07/2019 1:27 PM YARD SWITCH OPERATOR Final Discharge Planning Entered On: 07/07/2019 13:27 EST Performed On: 07/07/2019 13:27 EST by Desiree Bennett, Bottle Selector-Gallery Or Museum Attendant Final Discharge Planning Discharge Arrangements : Patient Post-Acute Information Patient Name: PRATIK SHABAZZ Gender: Female : [birth year] Age: 48 Years No Post-Acute Placement(s) Listed No Post-Acute Service(s) Listed No Cur[place] Referral(s) Listed Transportation Needs : Family/Friend Follow Up Appointment Scheduled : Yes Is Patient High/Moderate Readmission Risk? : Yes Patient/Family Notified of Plan : Yes Is Patient Ready for Discharge? : Yes Physician Notified Patient is Ready for Discharge? : Yes Discharge To Care Management : Home/Residential/Halfway or Self Care -01 Desiree Bennett, Bottle Selector-Gallery Or Museum Attendant - 07/07/2019 13:27 EST Electronically signed by [facility], [facility] Conversion Fitting Room Maintenance Mechanic Cerner at 12/16/2022 10:42 AM CDT documented in this encounter Plan of Treatment Upcoming Encounters Date Type Department Care Team (Late st Contact Info) Description 11/03/2025 12:45 PM EST Office Visit [facility] Pulmonology - [address] [place] [address] Ben Barrios MD [address] [place] [address] documented as of this encounter Visit Diagnoses Not on filedocumented in this encounter Care Teams Regulator Pin Inserter Relationship Specialty Start Date End Date Amie Pena MD [address] [place] [address] [place] [address] PCP - General Family Medicine 10/31/22 04/08/23 Marvel Grayson MD [address] [place] [address] PCP - General Family Medicine 05/17/23 Marvel Grayson [address] [place] [address] Family Practice 04/09/23 documented as of this encounter
--- OUTSIDE RECORDS SUMMARY | 2025-07-02 14:01 | XMS_ITS | Encounter Summary ---
Author Organization [employer] ([place], [place], [place], [place]) Address [address] [place] [address] Care Team Providers Care Education Research Analyst Name Role Phone Amie Pena MD Primary Care Provider [phone] Marvel Grayson MD Primary Care Provider [phone] Encounter Details Date Type Department Care Team (Late st Contact Info) Description 07/07/2019 Transcribed Document [facility] Family Medicine [address] [place] [id number] ProviderMik MD [address] [place] [id number] Social History Tobacco Use Types Packs/Day Years Used Date Smoking Tobacco: Never Assessed Comments Unknown Sex and Gender Information Value Date Recorded Sex Assigned at Not on file Legal Sex Female 6:09 PM CDT Gender Identity Not on file Sexual Orientation Not on file documented as of this encounter Miscellaneous Notes * [employer]ner Conversion Note - Mik Thorne MD - 07/07/2019 12:52 PM [employer] Patient Education Materials Follows: Spinal Fusion, Adult, Care After This sheet gives you information about how to care for yourself after your procedure. Your doctor may also give you more specific instructions. If you have problems or questions, contact your doctor. Follow these instructions at home: Medicines ??? Take vood-xco-qgqykgb and prescription medicines only as told by your doctor. These include any medicines for pain or blood-thinning medicines (anticoagulants). ??? If you were prescribed an antibiotic medicine, take it as told by your doctor. Do not stop taking the antibiotic even if you start to feel better. ??? Do not drive for 24 hours if you were given a medicine to help you relax (sedative) during your procedure. ??? Do not drive or use heavy machinery while taking prescription pain medicine. If you have a brace: ??? Wear the brace as told by your doctor. Take it off only as told by your doctor. ??? Keep the brace clean. Managing pain, stiffness, and swelling ??? If directed, put ice on the surgery area: ? If you have a removable brace, take it off as told by your doctor. ? Put ice in a plastic bag. ? Place a towel between your skin and the bag. ? Leave the ice on for 20 minutes, 2?3 times a day. Surgery cut care ??? Follow instructions from your doctor about how to take care of your cut from surgery (incision). Make sure you: ? Wash your hands with soap and water before you change your bandage (dressing). If you cannot use soap and water, use hand manager training. ? Change your bandage as told by your doctor. ? Leave stitches (sutures), skin glue, or skin tape (adhesive) strips in place. They may need to stay in place for 2 weeks or longer. If tape strips get loose and curl up, you may trim the loose edges. Do not remove tape strips completely unless your doctor says it is okay. ??? Keep your cut from surgery clean and dry. ? Do not take baths, swim, or use a hot tub until your doctor says it is okay. ? Ask your doctor if you can take showers. You may only be allowed to take sponge baths. ??? Every day, check your cut from surgery and the area around it for: ? More redness, swelling, or pain. ? Fluid or blood. ? Warmth. ? Pus or a bad smell. ??? If you have a drain tube, follow instructions from your doctor about caring for it. Do not take out the drain tube or any bandages unless your doctor says it is okay. Physical activity ??? Rest and protect your back as much as possible. ??? Follow instructions from your doctor about how to move. Use good posture to help your spine heal. ??? Do not lift anything that is heavier than 8 lb (3.6 kg), or the limit that you are told, until your doctor says that it is safe. ??? Do not twist or bend at the waist until your doctor says it is okay. ??? It is best if you: ? Do not make pushing and pulling motions. ? Do not sit or lie down in the same position for a long time. ? Do not raise your hands or arms above your head. ??? Return to your normal activities as told by your doctor. Ask your doctor what activities are safe for you. Rest and protect your back as much as you can. ??? Do not start to exercise until your doctor says it is okay. Ask your doctor what kinds of exercise you can do to make your back stronger. General instructions ??? To prevent blood clots and lessen swelling in your legs: ? Wear compression stockings as told. ? Walk one or more times every few hours as told by your doctor. ??? Do not use any products that contain nicotine or tobacco, such as cigarettes and e-cigarettes. These can delay bone healing. If you need help quitting, ask your doctor. ??? To prevent or treat constipation while you are taking prescription pain medicine, your doctor may suggest that you: ? Drink enough fluid to keep your pee (urine) pale yellow. ? Take rwdd-hso-bzmwmpj or prescription medicines. ? Eat foods that are high in fiber. These include fresh fruits and vegetables, whole grains, and beans. ? Limit foods that are high in fat and processed sugars, such as fried and sweet foods. ??? Keep all follow-up visits as told by your doctor. This is important. Contact a doctor if: ??? Your pain gets worse. ??? Your medicine does not help your pain. ??? Your legs or feet get painful or swollen. ??? Your cut from surgery is more red, swollen, or painful. ??? Your cut from surgery feels warm to the touch. ??? You have: ? Fluid or blood coming from your cut from surgery. ? Pus or a bad smell coming from your cut from surgery. ? A fever. ? Weakness or loss of feeling (numbness) in your legs that is new or getting worse. ? Trouble controlling when you pee (urinate) or poop (have a bowel movement). ??? You feel sick to your stomach (nauseous). ??? You throw up (vomit). Get help right away if: ??? Your pain is very bad. ??? You have chest pain. ??? You have trouble breathing. ??? You start to have a cough. These symptoms may be an emergency. Do not wait to see if the symptoms will go away. Get medical help right away. Call your local emergency services (911 in the [place] Do not drive yourself to the hospital. Summary ??? After the procedure, it is common to have pain in your back and pain by your surgery cut(s). ??? Icing and pain medicines may help to control the pain. Follow directions from your doctor. ??? Rest and protect your back as much as possible. Do not twist or bend at the waist. ??? Get up and walk one or more times every few hours as told by your doctor. This information is not intended to replace advice given to you by your health care provider. Make sure you discuss any questions you have with your health care provider. Document Released: 12/14/2011 Document Revised: 12/04/2017 Document Reviewed: 12/04/2017 [employer] Interactive Patient Education ? 2019 [employer] Sciatica Sciatica is pain, numbness, weakness, or tingling along your sciatic nerve. The sciatic nerve starts in the lower back and goes down the back of each leg. Sciatica happens when this nerve is pinched or has pressure put on it. Sciatica usually goes away on its own or with treatment. Sometimes, sciatica may keep coming back (recur). Follow these instructions at home: Medicines ??? Take rsex-oqk-ejmxeyj and prescription medicines only as told by your doctor. ??? Do not drive or use heavy machinery while taking prescription pain medicine. Managing pain ??? If directed, put ice on the affected area. ? Put ice in a plastic bag. ? Place a towel between your skin and the bag. ? Leave the ice on for 20 minutes, 2?3 times a day. ??? After icing, apply heat to the affected area before you exercise or as often as told by your doctor. Use the heat source that your doctor tells you to use, such as a moist heat pack or a heating pad. ? Place a towel between your skin and the heat source. ? Leave the heat on for 20?30 minutes. ? Remove the heat if your skin turns bright red. This is especially important if you are unable to feel pain, heat, or cold. You may have a greater risk of getting burned. Activity ??? Return to your normal activities as told by your doctor. Ask your doctor what activities are safe for you. ? Avoid activities that make your sciatica worse. ??? Take short rests during the day. Rest in a lying or standing position. This is usually better than sitting to rest. ? When you rest for a long time, do some physical activity or stretching between periods of rest. ? Avoid sitting for a long time without moving. Get up and move around at least one time each hour. ??? Exercise and stretch regularly, as told by your doctor. ??? Do not lift anything that is heavier than 10 lb (4.5 kg) while you have symptoms of sciatica. ? Avoid lifting heavy things even when you do not have symptoms. ? Avoid lifting heavy things over and over. ??? When you lift objects, always lift in a way that is safe for your body. To do this, you should: ? Bend your knees. ? Keep the object close to your body. ? Avoid twisting. General instructions ??? Use good posture. ? Avoid leaning forward when you are sitting. ? Avoid hunching over when you are standing. ??? Stay at a healthy weight. ??? Wear comfortable shoes that support your feet. Avoid wearing high heels. ??? Avoid sleeping on a mattress that is too soft or too hard. You might have less pain if you sleep on a mattress that is firm enough to support your back. ??? Keep all follow-up visits as told by your doctor. This is important. Contact a doctor if: ??? You have pain that: ? Wakes you up when you are sleeping. ? Gets worse when you lie down. ? Is worse than the pain you have had in the past. ? Lasts longer than 4 weeks. ??? You lose weight for without trying. Get help right away if: ??? You cannot control when you pee (urinate) or poop (have a bowel movement). ??? You have weakness in any of these areas and it gets worse. ? Lower back. ? Lower belly (pelvis). ? Butt (buttocks). ? Legs. ??? You have redness or swelling of your back. ??? You have a burning feeling when you pee. This information is not intended to replace advice given to you by your health care provider. Make sure you discuss any questions you have with your health care provider. Document Released: 05/29/2009 Document Revised: 01/25/2017 Document Reviewed: 04/28/2016 [employer] Interactive Patient Education ? 2019 [employer] Peripheral Neuropathy Peripheral neuropathy is a type of nerve damage. It affects nerves that carry signals between the spinal cord and the arms, legs, and the rest of the body (peripheral nerves). It does not affect nerves in the spinal cord or brain. In peripheral neuropathy, one nerve or a group of nerves may be damaged. Peripheral neuropathy is a broad category that includes many specific nerve disorders, like diabetic neuropathy, hereditary neuropathy, and carpal tunnel syndrome. What are the causes? This condition may be caused by: ??? Diabetes. This is the most common cause of peripheral neuropathy. ??? Nerve injury. ??? Pressure or stress on a nerve that lasts a long time. ??? Lack (deficiency) of B vitamins. This can result from alcoholism, poor diet, or a restricted diet. ??? Infections. ??? Autoimmune diseases, such as rheumatoid arthritis and systemic lupus erythematosus. ??? Nerve diseases that are passed from parent to child (inherited). ??? Some medicines, such as cancer medicines (chemotherapy). ??? Poisonous (toxic) substances, such as lead and mercury. ??? Too little blood flowing to the legs. ??? Kidney disease. ??? Thyroid disease. In some cases, the cause of this condition is not known. What are the signs or symptoms? Symptoms of this condition depend on which of your nerves is damaged. Common symptoms include: ??? Loss of feeling (numbness) in the feet, hands, or both. ??? Tingling in the feet, hands, or both. ??? Burning pain. ??? Very sensitive skin. ??? Weakness. ??? Not being able to move a part of the body (paralysis). ??? Muscle twitching. ??? Clumsiness or poor coordination. ??? Loss of balance. ??? Not being able to control your bladder. ??? Feeling dizzy. ??? Sexual problems. How is this diagnosed? Diagnosing and finding the cause of peripheral neuropathy can be difficult. Your health care provider will take your medical history and do a physical exam. A neurological exam will also be done. This involves checking things that are affected by your brain, spinal cord, and nerves (nervous system). For example, your health care provider will check your reflexes, how you move, and what you can feel. You may have other tests, such as: ??? Blood tests. ??? Electromyogram (EMG) and nerve conduction tests. These tests check nerve function and how well the nerves are controlling the muscles. ??? Imaging tests, such as CT scans or MRI to rule out other causes of your symptoms. ??? Removing a small piece of nerve to be examined in a lab (nerve biopsy). This is rare. ??? Removing and examining a small amount of the fluid that surrounds the brain and spinal cord (lumbar puncture). This is rare. How is this treated? Treatment for this condition may involve: ??? Treating the underlying cause of the neuropathy, such as diabetes, kidney disease, or vitamin deficiencies. ??? Stopping medicines that can cause neuropathy, such as chemotherapy. ??? Medicine to relieve pain. Medicines may include: ? Prescription or hjzv-qoy-tjxlgjc pain medicine. ? Antiseizure medicine. ? Antidepressants. ? Pain-relieving patches that are applied to painful areas of skin. ??? Surgery to relieve pressure on a nerve or to destroy a nerve that is causing pain. ??? Physical therapy to help improve movement and balance. ??? Devices to help you move around (assistive devices). Follow these instructions at home: Medicines ??? Take jwgp-gao-fbcybcz and prescription medicines only as told by your health care provider. Do not take any other medicines without first asking your health care provider. ??? Do not drive or use heavy machinery while taking prescription pain medicine. Lifestyle ??? Do not use any products that contain nicotine or tobacco, such as cigarettes and e-cigarettes. Smoking keeps blood from reaching damaged nerves. If you need help quitting, ask your health care provider. ??? Avoid or limit alcohol. Too much alcohol can cause a vitamin B deficiency, and vitamin B is needed for healthy nerves. ??? Eat a healthy diet. This includes: ? Eating foods that are high in fiber, such as fresh fruits and vegetables, whole grains, and beans. ? Limiting foods that are high in fat and processed sugars, such as fried or sweet foods. General instructions ??? If you have diabetes, work closely with your health care provider to keep your blood sugar under control. ??? If you have numbness in your feet: ? Check every day for signs of injury or infection. Watch for redness, warmth, and swelling. ? Wear padded socks and comfortable shoes. These help protect your feet. ??? Develop a good support system. Living with peripheral neuropathy can be stressful. Consider talking with a mental health specialist or joining a support group. ??? Use assistive devices and attend physical therapy as told by your health care provider. This may include using a walker or a cane. ??? Keep all follow-up visits as told by your health care provider. This is important. Contact a health care provider if: ??? You have new signs or symptoms of peripheral neuropathy. ??? You are struggling emotionally from dealing with peripheral neuropathy. ??? Your pain is not well-controlled. Get help right away if: ??? You have an injury or infection that is not healing normally. ??? You develop new weakness in an arm or leg. ??? You fall frequently. Summary ??? Peripheral neuropathy is when the nerves in the arms, or legs are damaged, resulting in numbness, weakness, or pain. ??? There are many causes of peripheral neuropathy, including diabetes, pinched nerves, vitamin deficiencies, autoimmune disease, and hereditary conditions. ??? Diagnosing and finding the cause of peripheral neuropathy can be difficult. Your health care provider will take your medical history, do a physical exam, and do tests, including blood tests and nerve function tests. ??? Treatment involves treating the underlying cause of the neuropathy and taking medicines to help control pain. Physical therapy and assistive devices may also help. This information is not intended to replace advice given to you by your health care provider. Make sure you discuss any questions you have with your health care provider. Document Released: 08/10/2003 Document Revised: 10/29/2017 Document Reviewed: 10/29/2017 [employer] Interactive Patient Education ? 2019 [employer] Immunology Asthma Action Plan, Adult Introduction An asthma action plan helps you understand how to manage your asthma and what to do when you have an asthma attack. The action plan is a color-coded plan that lists the symptoms that indicate whether or not your condition is under control and what actions to take. ??? If you have symptoms in the green zone, it means you are doing well. ??? If you have symptoms in the yellow zone, it means you are having problems. ??? If you have symptoms in the red zone, you need medical care right away. Follow the plan that you and your health care provider develop. Review your plan with your health care provider at each visit. What triggers your asthma? Knowing the things that can trigger an asthma attack or make your asthma symptoms worse is very important. Talk to your health care provider about your asthma triggers and how to avoid them. Record your known asthma triggers here: What is your personal best peak flow reading? If you use a peak flow meter, determine your personal best reading. Record it here: Red zone Symptoms in this zone mean that you should get medical help right away. You will likely feel distressed and have symptoms at rest that restrict your activity. You are in the red zone if: ??? You are breathing hard and quickly. ??? Your nose opens wide, your ribs show, and your neck muscles become visible when you breathe in. ??? Your lips, fingers, or toes are a bluish color. ??? You have trouble speaking in full sentences. ??? Your peak flow reading is less than (less than 50% of your personal best). ??? Your symptoms do not improve within 15?20 minutes after you use your reliever or rescue medicine (bronchodilator). If you have any of these symptoms: ??? Call your local emergency services (911 in the [place] or go to the nearest emergency room. ??? Use your reliever or rescue medicine. ? Start a nebulizer treatment or take 2?4 puffs from a metered-dose inhaler with a spacer. ? Repeat this action every 15?20 minutes until help arrives. Yellow zone Symptoms in this zone mean that your condition may be getting worse. You may have symptoms that interfere with exercise, are noticeably worse after exposure to triggers, or are worse at the first sign of a cold (upper respiratory infection). These may include: ??? Waking from sleep. ??? Coughing, especially at night or first thing in the morning. ??? Mild wheezing. ??? Chest tightness. ??? A peak flow reading that is to (50?79% of your personal best). If you have any of these symptoms: ??? Add the following medicine to the ones that you use daily: ? Reliever or rescue medicine and dosage: ? Additional medicine and dosage: Call your health care provider if: ??? You remain in the yellow zone for hours. ??? You are using a reliever or rescue medicine more than 2?3 times a week. Green zone This zone means that your asthma is under control. You may not have any symptoms while you are in the green zone. This means that you: ??? Have no coughing or wheezing, even while you are working or playing. ??? Sleep through the night. ??? Are breathing well. ??? Have a peak flow reading that is above (80% of your personal best or greater). If you are in the green zone, continue to manage your asthma as directed: ??? Take these medicines every day: ? Controller medicine and dosage: ? Controller medicine and dosage: ? Controller medicine and dosage: ? Controller medicine and dosage: ??? Before exercise, use this reliever or rescue medicine: Call your health care provider if you are using a reliever or rescue medicine more than 2?3 times a week. Where to find more information You can find more information about asthma from: ??? Centers for Disease Control and Prevention: www.cdc.gov/asthma ??? [place] [employer]: www.lung.org This information is not intended to replace advice given to you by your health care provider. Make sure you discuss any questions you have with your health care provider. Document Released: 06/17/2010 Document Revised: 05/01/2018 Document Reviewed: 05/01/2018 [employer] Interactive Patient Education ? 2019 [employer] Pulmonary Medicine Chronic Obstructive Pulmonary Disease Chronic obstructive pulmonary disease (COPD) is a long-term (chronic) condition that affects the lungs. COPD is a general term that can be used to describe many different lung problems that cause lung swelling (inflammation) and limit airflow, including chronic bronchitis and emphysema. If you have COPD, your lung function will probably never return to normal. In most cases, it gets worse over time. However, there are steps you can take to slow the progression of the disease and improve your quality of life. What are the causes? This condition may be caused by: ??? Smoking. This is the most common cause. ??? Certain genes passed down through families. What increases the risk? The following factors may make you more likely to develop this condition: ??? Secondhand smoke from cigarettes, pipes, or cigars. ??? Exposure to chemicals and other irritants such as fumes and dust in the work environment. ??? Chronic lung conditions or infections. What are the signs or symptoms? Symptoms of this condition include: ??? Shortness of breath, especially during physical activity. ??? Chronic cough with a large amount of thick mucus. Sometimes the cough may not have any mucus (dry cough). ??? Wheezing. ??? Rapid breaths. ??? [place] or bluish discoloration (cyanosis) of the skin, especially in your fingers, toes, or lips. ??? Feeling tired (fatigue). ??? Weight loss. ??? Chest tightness. ??? Frequent infections. ??? Episodes when breathing symptoms become much worse (exacerbations). ??? Swelling in the ankles, feet, or legs. This may occur in later stages of the disease. How is this diagnosed? This condition is diagnosed based on: ??? Your medical history. ??? A physical exam. You may also have tests, including: ??? Lung (pulmonary) function tests. This may include a spirometry test, which measures your ability to exhale properly. ??? Chest X-ray. ??? CT scan. ??? Blood tests. How is this treated? This condition may be treated with: ??? Medicines. These may include inhaled rescue medicines to treat acute exacerbations as well as long-term, or maintenance, medicines to prevent flare-ups of COPD. ? Bronchodilators help treat COPD by dilating the airways to allow increased airflow and make your breathing more comfortable. ? Steroids can reduce airway inflammation and help prevent exacerbations. ??? Smoking cessation. If you smoke, your health care provider may ask you to quit, and may also recommend therapy or replacement products to help you quit. ??? Pulmonary rehabilitation. This may involve working with a team of health care providers and specialists, such as respiratory, occupational, and physical therapists. ??? Exercise and physical activity. These are beneficial for nearly all people with COPD. ??? Nutrition therapy to gain weight, if you are underweight. ??? Oxygen. Supplemental oxygen therapy is only helpful if you have a low oxygen level in your blood (hypoxemia). ??? Lung surgery or transplant. ??? Palliative care. This is to help people with COPD feel comfortable when treatment is no longer working. Follow these instructions at home: Medicines ??? Take rthd-tie-gpwtmml and prescription medicines (inhaled or pills) only as told by your health care provider. ??? Talk to your health care provider before taking any cough or allergy medicines. You may need to avoid certain medicines that dry out your airways. Lifestyle ??? If you are a smoker, the most important thing that you can do is to stop smoking. Do not use any products that contain nicotine or tobacco, such as cigarettes and e-cigarettes. If you need help quitting, ask your health care provider. Continuing to smoke will cause the disease to progress faster. ??? Avoid exposure to things that irritate your lungs, such as smoke, chemicals, and fumes. ??? Stay active, but balance activity with periods of rest. Exercise and physical activity will help you maintain your ability to do things you want to do. ??? Learn and use relaxation techniques to manage stress and to control your breathing. ??? Get the right amount of sleep and get quality sleep. Most adults need 7 or more hours per night. ??? Eat healthy foods. Eating smaller, more frequent meals and resting before meals may help you maintain your strength. Controlled breathing Learn and use controlled breathing techniques as directed by your health care provider. Controlled breathing techniques include: ??? Pursed lip breathing. Start by breathing in (inhaling) through your nose for 1 second. Then, purse your lips as if you were going to whistle and breathe out (exhale) through the pursed lips for 2 seconds. ??? Diaphragmatic breathing. Start by putting one hand on your abdomen just above your waist. Inhale slowly through your nose. The hand on your abdomen should move out. Then purse your lips and exhale slowly. You should be able to feel the hand on your abdomen moving in as you exhale. Controlled coughing Learn and use controlled coughing to clear mucus from your lungs. Controlled coughing is a series of short, progressive coughs. The steps of controlled coughing are: 1. Lean your head slightly forward. 2. Breathe in deeply using diaphragmatic breathing. 3. Try to hold your breath for 3 seconds. 4. Keep your mouth slightly open while coughing twice. 5. Spit any mucus out into a tissue. 6. Rest and repeat the steps once or twice as needed. General instructions ??? Make sure you receive all the vaccines that your health care provider recommends, especially the pneumococcal and influenza vaccines. Preventing infection and hospitalization is very important when you have COPD. ??? Use oxygen therapy and pulmonary rehabilitation if directed to by your health care provider. If you require home oxygen therapy, ask your health care provider whether you should purchase a pulse oximeter to measure your oxygen level at home. ??? Work with your health care provider to develop a COPD action plan. This will help you know what steps to take if your condition gets worse. ??? Keep other chronic health conditions under control as told by your health care provider. ??? Avoid extreme temperature and humidity changes. ??? Avoid contact with people who have an illness that spreads from person to person (is contagious), such as viral infections or pneumonia. ??? Keep all follow-up visits as told by your health care provider. This is important. Contact a health care provider if: ??? You are coughing up more mucus than usual. ??? There is a change in the color or thickness of your mucus. ??? Your breathing is more labored than usual. ??? Your breathing is faster than usual. ??? You have difficulty sleeping. ??? You need to use your rescue medicines or inhalers more often than expected. ??? You have trouble doing routine activities such as getting dressed or walking around the house. Get help right away if: ??? You have shortness of breath while you are resting. ??? You have shortness of breath that prevents you from: ? Being able to talk. ? Performing your usual physical activities. ??? You have chest pain lasting longer than 5 minutes. ??? Your skin color is more blue (cyanotic) than usual. ??? You measure low oxygen saturations for longer than 5 minutes with a pulse oximeter. ??? You have a fever. ??? You feel too tired to breathe normally. Summary ??? Chronic obstructive pulmonary disease (COPD) is a long-term (chronic) condition that affects the lungs. ??? Your lung function will probably never return to normal. In most cases, it gets worse over time. However, there are steps you can take to slow the progression of the disease and improve your quality of life. ??? Treatment for COPD may include taking medicines, quitting smoking, pulmonary rehabilitation, and changes to diet and exercise. As the disease progresses, you may need oxygen therapy, a lung transplant, or palliative care. ??? To help manage your condition, do not smoke, avoid exposure to things that irritate your lungs, stay up to date on all vaccines, and follow your health care provider's instructions for taking medicines. This information is not intended to replace advice given to you by your health care provider. Make sure you discuss any questions you have with your health care provider. Document Released: 05/30/2006 Document Revised: 02/13/2018 Document Reviewed: 09/24/2017 [employer] Interactive Patient Education ? 2019 [employer] Chronic Obstructive Pulmonary Disease Exacerbation Chronic obstructive pulmonary disease (COPD) is a long-term (chronic) condition that affects the lungs. COPD is a general term that can be used to describe many different lung problems that cause lung swelling (inflammation) and limit airflow, including chronic bronchitis and emphysema. COPD exacerbations are episodes when breathing symptoms become much worse and require extra treatment. COPD exacerbations are usually caused by infections. Without treatment, COPD exacerbations can be severe and even life threatening. Frequent COPD exacerbations can cause further damage to the lungs. What are the causes? This condition may be caused by: ??? Respiratory infections, including viral and bacterial infections. ??? Exposure to smoke. ??? Exposure to air pollution, chemical fumes, or dust. ??? Things that give you an allergic reaction (allergens). ??? Not taking your usual COPD medicines as directed. ??? Underlying medical problems, such as congestive heart failure or infections not involving the lungs. In many cases, the cause (trigger) of this condition is not known. What increases the risk? The following factors may make you more likely to develop this condition: ??? Smoking cigarettes. ??? Old age. ??? Frequent prior COPD exacerbations. What are the signs or symptoms? Symptoms of this condition include: ??? Increased coughing. ??? Increased production of mucus from your lungs (sputum). ??? Increased wheezing. ??? Increased shortness of breath. ??? Rapid or labored breathing. ??? Chest tightness. ??? Less energy than usual. ??? Sleep disruption from symptoms. ??? Confusion or increased sleepiness. Often these symptoms happen or get worse even with the use of medicines. How is this diagnosed? This condition is diagnosed based on: ??? Your medical history. ??? A physical exam. You may also have tests, including: ??? A chest X-ray. ??? Blood tests. ??? Lung (pulmonary) function tests. How is this treated? Treatment for this condition depends on the severity and cause of the symptoms. You may need to be admitted to a hospital for treatment. Some of the treatments commonly used to treat COPD exacerbations are: ??? Antibiotic medicines. These may be used for severe exacerbations caused by a lung infection, such as pneumonia. ??? Bronchodilators. These are inhaled medicines that expand the air passages and allow increased airflow. ??? Steroid medicines. These act to reduce inflammation in the airways. They may be given with an inhaler, taken by mouth, or given through an IV tube inserted into one of your veins. ??? Supplemental oxygen therapy. ??? Airway clearing techniques, such as noninvasive ventilation (NIV) and positive expiratory pressure (PEP). These provide respiratory support through a mask or other noninvasive device. An example of this would be using a continuous positive airway pressure (CPAP) machine to improve delivery of oxygen into your lungs. Follow these instructions at home: Medicines ??? Take [id number] and prescription medicines only as told by your health care provider. It is important to use correct technique with inhaled medicines. ??? If you were prescribed an antibiotic medicine or oral steroid, take it as told by your health care provider. Do not stop taking the medicine even if you start to feel better. Lifestyle ??? Eat a healthy diet. ??? Exercise regularly. ??? Get plenty of sleep. ??? Avoid exposure to all substances that irritate the airway, especially to tobacco smoke. ??? Wash your hands often with soap and water to reduce the risk of infection. If soap and water are not available, use hand manager training. ??? During flu season, avoid enclosed spaces that are crowded with people. General instructions ??? Drink enough fluid to keep your urine clear or pale yellow (unless you have a medical condition that requires fluid restriction). ??? Use a cool mist vaporizer. This humidifies the air and makes it easier for you to clear your chest when you cough. ??? If you have a home nebulizer and oxygen, continue to use them as told by your health care provider. ??? Keep all follow-up visits as told by your health care provider. This is important. How is this prevented? Stay up-to-date on pneumococcal and influenza (flu) vaccines. A flu shot is recommended every year to help prevent exacerbations. ??? Do not use any products that contain nicotine or tobacco, such as cigarettes and e-cigarettes. Quitting smoking is very important in preventing COPD from getting worse and in preventing exacerbations from happening as often. If you need help quitting, ask your health care provider. ??? Follow all instructions for pulmonary rehabilitation after a recent exacerbation. This can help prevent future exacerbations. ??? Work with your health care provider to develop and follow an action plan. This tells you what steps to take when you experience certain symptoms. Contact a health care provider if: ??? You have a worsening of your regular COPD symptoms. Get help right away if: ??? You have worsening shortness of breath, even when resting. ??? You have trouble talking. ??? You have severe chest pain. ??? You cough up blood. ??? You have a fever. ??? You have weakness, vomit repeatedly, or faint. ??? You feel confused. ??? You are not able to sleep because of your symptoms. ??? You have trouble doing daily activities. Summary ??? COPD exacerbations are episodes when breathing symptoms become much worse and require extra treatment above your normal treatment. ??? Exacerbations can be severe and even life threatening. Frequent COPD exacerbations can cause further damage to your lungs. ??? COPD exacerbations are usually triggered by infections such as the flu, colds, and even pneumonia. ??? Treatment for this condition depends on the severity and cause of the symptoms. You may need to be admitted to a hospital for treatment. ??? Quitting smoking is very important to prevent COPD from getting worse and to prevent exacerbations from happening as often. This information is not intended to replace advice given to you by your health care provider. Make sure you discuss any questions you have with your health care provider. Document Released: 06/16/2008 Document Revised: 02/13/2018 Document Reviewed: 09/24/2017 [employer] Interactive Patient Education ? 2019 [employer] documented in this encounter Plan of Treatment Upcoming Encounters Date Type Department Care Team (Late st Contact Info) Description 11/03/2025 12:45 PM EST Office Visit [facility] Pulmonology - [address] [place] [address] Ben Barrios MD [address] [place] [address] documented as of this encounter Visit Diagnoses Not on filedocumented in this encounter Care Teams Education Research Analyst Relationship Specialty Start Date End Date Amie Pena MD [address] [place] [address] [place] [address] PCP - General Family Medicine 10/31/22 04/08/23 Marvel Grayson MD [address] [place] [address] [place] [address] PCP - General Family Medicine 05/17/23 Marvel Grayson [address] [place] [address] Family Practice 04/09/23 documented as of this encounter
--- OUTSIDE RECORDS SUMMARY | 2025-07-02 14:01 | XMS_ITS | Encounter Summary ---
Author Organization [employer] ([place], [place], [place], [place]) Address [address] [place] [address] Care Team Providers Care Medical Billing Clerk Name Role Phone Amie Pena MD Primary Care Provider [phone] Marvel Grayson MD Primary Care Provider [phone] Encounter Details Date Type Department Care Team (Late st Contact Info) Description 10/29/2019 Transcribed Document [facility] [place] [facility] [place] [address] ProviderMik MD [address] [place] [address] Social History Tobacco Use Types Packs/Day Years Used Date Smoking Tobacco: Never Assessed Comments Unknown Sex and Gender Information Value Date Recorded Sex Assigned at Not on file Legal Sex Female 6:09 PM CDT Gender Identity Not on file Sexual Orientation Not on file documented as of this encounter Miscellaneous Notes * [employer] Conversion Note - Historical ProviderMD - 10/29/2019 5:47 PM PORT PATROL OFFICER Javy [address] [address] Visit Date/Time: 10/29/2019 17:47:26 PRATIK SHABAZZ The above patient was seen in the hospital today and needs to be excused from work/school until Return to Work/School Date:10/31/2019 documented in this encounter Plan of Treatment Upcoming Encounters Date Type Department Care Team (Late st Contact Info) Description 11/03/2025 12:45 PM EST Office Visit [facility] Pulmonology - [address] [place] [address] Ben Barrios MD [address] [place] [address] documented as of this encounter Visit Diagnoses Not on filedocumented in this encounter Care Teams Medical Billing Clerk Relationship Specialty Start Date End Date Amie Pena MD [address] [place] [address] [place] [address] PCP - General Family Medicine 10/31/22 04/08/23 Marvel Grayson MD [address] [place] [address] [place] [address] PCP - General Family Medicine 05/17/23 Marvel Grayson [address] [place], [place] [id number] Family Practice 04/09/23 documented as of this encounter
--- OUTSIDE RECORDS SUMMARY | 2025-07-02 14:01 | XMS_ITS | Encounter Summary ---
Author Organization [employer] ([place], [place], [place], [place]) Address [address] [place] [address] Care Team Providers Care Medical Detailist Name Role Phone Amie Pena MD Primary Care Provider [phone] Marvel Grayson MD Primary Care Provider [phone] Encounter Details Date Type Department Care Team (Late st Contact Info) Description 10/29/2019 Transcribed Document [facility] [place] [address] [place] [address] ProviderMik MD [address] [place] [address] Social History Tobacco Use Types Packs/Day Years Used Date Smoking Tobacco: Never Assessed Comments Unknown Sex and Gender Information Value Date Recorded Sex Assigned at Not on file Legal Sex Female 6:09 PM CDT Gender Identity Not on file Sexual Orientation Not on file documented as of this encounter Miscellaneous Notes * [employer] Conversion Note - Historical ProviderMD - 10/29/2019 2:14 PM DRUPAL DEVELOPER [place] Suicide Severity Rating Scale (C-SSRS) Entered On: 10/29/2019 14:30 EST Performed On: 10/29/2019 14:29 EST by Candy Forman RN [place] Suicide Severity Rating Scale (C-SSRS) CSSRS Past Month Wish to be : No CSSRS Past Month Suicidal Thoughts : No CSSRS Lifetime Suicide Behavior : No Suicide Severity Rating Score : 0 Suicide Severity Rating : No Additional Care Required at this time Candy Forman, RN - 10/29/2019 14:29 EST Electronically signed by [facility] Conversion Senior Product Integrity Engineer [employer] at 12/16/2022 10:44 AM CDT documented in this encounter Plan of Treatment Upcoming Encounters Date Type Department Care Team (Late st Contact Info) Description 11/03/2025 12:45 PM EST Office Visit [facility] Pulmonology - [address] [place] [id number] Ben Barrios MD [address] [place] [address] documented as of this encounter Visit Diagnoses Not on filedocumented in this encounter Care Teams Medical Detailist Relationship Specialty Start Date End Date Amie Pena MD [address] [facility] [place] [address] PCP - General Family Medicine 10/31/22 04/08/23 Marvel Grayson MD [address] [place] [address] PCP - General Family Medicine 05/17/23 Marvel Grayson [address] [place] [address] Family Practice 04/09/23 documented as of this encounter
--- OUTSIDE RECORDS SUMMARY | 2025-07-02 14:01 | XMS_ITS | Encounter Summary ---
Author Organization [employer] ([place], [place], [place], [place]) Address [address] [place] [address] Care Team Providers Care Verifying Machine Operator Name Role Phone Amie Pena MD Primary Care Provider [phone] Marvel Grayson MD Primary Care Provider [phone] Encounter Details Date Type Department Care Team (Late st Contact Info) Description 07/07/2019 Transcribed Document [facility] [place] Medicine [address] [place] [address] ProviderMik MD [address] [place] [address] Social History Tobacco Use Types Packs/Day Years Used Date Smoking Tobacco: Never Assessed Comments Unknown Sex and Gender Information Value Date Recorded Sex Assigned at Not on file Legal Sex Female 6:09 PM CDT Gender Identity Not on file Sexual Orientation Not on file documented as of this encounter Miscellaneous Notes * [employer] Conversion Note - Historical ProviderMD - 07/07/2019 12:55 PM FUNERAL DIRECTOR/EMBALMER Event Note Entered On: 07/07/2019 13:06 EST Performed On: 07/07/2019 12:55 EST by Vy Salazar RN Event Note Description of Event : Discharge delay-- Dr Lane brought written Rx for Atrovent to RN, patient discharge paperwork is complete. Patient asked RN to request a couple days continued lortab. Aundrea CORONADO, pending response. Vy Salazar RN - 07/07/2019 13:05 EST Electronically signed by Karthikeyan Bean Conversion Financial Services Counselor [employer] at 12/16/2022 10:47 AM CDT documented in this encounter Plan of Treatment Upcoming Encounters Date Type Department Care Team (Late st Contact Info) Description 11/03/2025 12:45 PM EST Office Visit [facility] Pulmonology - [address] [place] [phone] Ben Barrios MD [address] [place] [address] documented as of this encounter Visit Diagnoses Not on filedocumented in this encounter Care Teams Verifying Machine Operator Relationship Specialty Start Date End Date Amie Pena MD [address] [place] [address] [place] [address] PCP - General Family Medicine 10/31/22 04/08/23 Marvel Grayson MD [address] [place] [address] [place] [address] PCP - General Family Medicine 05/17/23 Marvel Grayson [address] [place] [address] Family Practice 04/09/23 documented as of this encounter
--- OUTSIDE RECORDS SUMMARY | 2025-07-02 14:01 | XMS_ITS | Encounter Summary ---
Author Organization [employer] ([place], [place], [place], [place]) Address [address] [place] [address] Care Team Providers Care Assistant Finance Director Name Role Phone Marbella Pena MD Primary Care Provider [phone] Marvel Grayson MD Primary Care Provider [phone] Encounter Details Date Type Department Care Team (Late st Contact Info) Description 08/06/2020 Transcribed Document [facility] [place] [address] [place] [address] ProviderMik MD [address] [place] [address] Social History Tobacco Use Types Packs/Day Years Used Date Smoking Tobacco: Never Assessed Comments Unknown Sex and Gender Information Value Date Recorded Sex Assigned at Not on file Legal Sex Female 6:09 PM CDT Gender Identity Not on file Sexual Orientation Not on file documented as of this encounter Miscellaneous Notes * Cerner Conversion Note - Mik Thorne MD - 08/06/2020 2:44 PM CONVEYOR WORKER Patient: PRATIK SHABAZZ Age: 49 years Sex: Female : 1970 Associated Diagnoses: Sprain, low back Author: TRISH MICHELLE MD-EMR Basic Information Additional information: Chief Complaint from Nursing Triage Note : Chief Complaint 08/06/2020 14:01 EST Chief Complaint pt co back pain and right arm and shoulder pain after fall yesterday . History of Present Illness The patient presents following fall. The onset was just prior to arrival. The occurrence was single episode. The fall was described as tripped. The location where the incident occurred was at home. Location: Right back upper extremity. The character of symptoms is pain. The degree at present is moderate. The exacerbating factor is movement. The relieving factor is none. Risk factors consist of age. The patient's dominant hand is the right hand. Therapy today: none. Preceding symptoms none. Associated symptoms: none. Review of Systems Constitutional symptoms: Negative except as documented in HPI. Skin symptoms: Negative except as documented in HPI. Eye symptoms: Negative except as documented in HPI. ENMT symptoms: Negative except as documented in HPI. Respiratory symptoms: Negative except as documented in HPI. Cardiovascular symptoms: Negative except as documented in HPI. Gastrointestinal symptoms: Negative except as documented in HPI. Genitourinary symptoms: Negative except as documented in HPI. Musculoskeletal symptoms: Negative except as documented in HPI. Neurologic symptoms: Negative except as documented in HPI. Psychiatric symptoms: Negative except as documented in HPI. Endocrine symptoms: Negative except as documented in HPI. Hematologic/Lymphatic symptoms: Negative except as documented in HPI. Allergy/immunologic symptoms: Negative except as documented in HPI. Additional review of systems information: All other systems reviewed and otherwise negative. Health Status Allergies: Allergic Reactions (Selected) Low Levaquin- No reactions were documented. Severity Not Documented Cymbalta- Suicidal. Doxycycline- Vomiting. Haldol- Hives. Penicillin- Headache. Ultram- Hives. Vraylar- Suicidal thoughts. Nonallergic Reactions (Selected) Severity Not Documented Codeine- Respiratory depression.. Past Medical/ Family/ Social History Surgical history: BTL / uterine ablation in the month of 02/2014 at 43 Years. D&C (sp Ab) in the month of 12/2013 at 43 Years. removal fatty tumor left upper back in 2010 at 40 Years. Removal of ovarian cyst ([id number]). I&D to left finger. Hysterectomy ([id number]).. Family history: No family history items have been selected or recorded.. Social history: Social & Psychosocial Habits Alcohol 04/11/2019 Alcohol Use History, Social Habits No Home/Environment 07/19/2016 Lives with: Significant other Nutrition/Health 02/13/2014 Caffeine intake amount: pot of coffee daily Substance Abuse 04/11/2019 Recreational Drug Use History No Tobacco 03/29/2015 Tobacco Use Within Last Twelve Months Cigarettes Smoking Status Current every day smoker Years of Tobacco Use 30 Packs/Tins Daily 1 . Physical Examination Vital Signs Vital Signs/Vital Measures 08/06/2020 14:01 EST Systolic Blood Pressure 162 mmHg HI Diastolic Blood Pressure 89 mmHg Temperature Source Oral Temperature Mode Fahrenheit Temperature, Fahrenheit 98.7 Deg F Clinical Temperature, C 37.1 Deg C Peripheral Pulse Rate 102 bpm HI Respiratory Rate 16 Breaths/Min Oxygen Saturation 94 % Oxygen Therapy Mode Room air . Measurements 08/06/2020 14:01 EST Height Source Estimated Height Entry Format [place] Height/Length, ISRAELI (ft) 5 ft Height/Length ISRAELI 11 Inch CLINICALHEIGHT 180.34 cm Freedom Body Weight 70.31 kg Weight Source, ED Critical estimated dosing weight Weight Entry Format [place] Weight Malagasy lb 200 lb CLINICALWEIGHT 90.91 kg Body Surface Area (BSA) 2.11 m2 Body Mass Index 28 kg/m2 HI . Oxygen Saturation 08/06/2020 14:01 EST Oxygen Saturation 94 % . General: Alert, mild distress. Meridian coma scale: Total score: Total score: 15. Neurological: Alert and oriented to person, place, time, and situation, No focal neurological deficit observed, CN II-XII intact, normal sensory observed, normal motor observed, normal speech observed, normal coordination observed. Skin: Warm, dry, pink. Head: Normocephalic, atraumatic. Neck: Supple. Eye: Pupils are equal, round and reactive to light, extraocular movements are intact, normal conjunctiva. Cardiovascular: Regular rate and rhythm, No murmur. Respiratory: Lungs are clear to auscultation, respirations are non-labored, breath sounds are equal, Symmetrical chest wall expansion. Gastrointestinal: Soft, Nontender, Non distended, Normal bowel sounds, No organomegaly. Back: Nontender. Musculoskeletal: Normal ROM. Medical Decision Making Differential Diagnosis: Fall, contusion, closed fracture. Chest X-Ray: Time reported 08/06/2020 14:46:00, no acute disease process, interpretation by Emergency Physician. Radiology results: X-ray, shoulder/ L spine, reveals no acute disease process. Impression and Plan Diagnosis Sprain, low back - Discharge, Emergency medicine, Medical Plan Condition: Stable. Disposition: Discharged Admit/Transfer/Discharge: Discharge (Order): Start: 08/06/2020 14:47 EST, Discharge to: Home. Prescriptions: Prescription Capsule Inspector Pharmacy: [facility] 7.5 mg-325 mg oral tablet (Prescribe): 1 Tab, Oral, Q4H, for 3 Day(s), PRN: as needed for pain, 18 Tab, 0 Refill(s). Patient was given the following educational materials: Back Injury Prevention. Limitations: Limited activity. Follow up with: MARBELLA PENA Within 2 to 3 days. Counseled: Patient, Regarding diagnosis, Regarding diagnostic results, Regarding treatment plan, Regarding prescription. documented in this encounter Plan of Treatment Upcoming Encounters Date Type Department Care Team (Late st Contact Info) Description 11/03/2025 12:45 PM EST Office Visit [facility] Pulmonology - [address] [place] [id number] Ben Barrios MD [address] [place] [address] documented as of this encounter Visit Diagnoses Not on filedocumented in this encounter Care Teams Assistant Finance Director Relationship Specialty Start Date End Date Marbella Pena MD [address] [place] [address] [place] [address] PCP - General Family Medicine 10/31/22 04/08/23 Marvel Grayson MD [facility] [place] [address] PCP - General Family Medicine 05/17/23 Marvel Grayson [address] [place] [address] Family Practice 04/09/23 documented as of this encounter
--- OUTSIDE RECORDS SUMMARY | 2025-07-02 14:01 | XMS_ITS | Encounter Summary ---
Author Organization [employer] ([place], [place], [place], [place]) Address [address] [place] [address] Care Team Providers Care Project Admin Name Role Phone Amie Pena MD Primary Care Provider [phone] Marvel Grayson MD Primary Care Provider [phone] Encounter Details Date Type Department Care Team (Late st Contact Info) Description 07/06/2019 Transcribed Document [facility] [place] [address] [place] [address] ProviderMik MD [address] [place] [address] Social History Tobacco Use Types Packs/Day Years Used Date Smoking Tobacco: Never Assessed Comments Unknown Sex and Gender Information Value Date Recorded Sex Assigned at Not on file Legal Sex Female 6:09 PM CDT Gender Identity Not on file Sexual Orientation Not on file documented as of this encounter Miscellaneous Notes * Cerner Conversion Note - Historical ProviderMD - 07/06/2019 5:00 AM NETWORK CABLER Chart Check - Review Order Profile Entered On: 07/06/2019 3:00 EST Performed On: 07/06/2019 5:00 EST by Max Pereyra, RN Chart Check Powerplans Initiated/Discontinued as Appropriate : Yes All Active Orders Reviewed : Yes Max Pereyra, RN - 07/06/2019 3:00 EST Electronically signed by [facility] Conversion Hogshead Inspector Cerner at 12/16/2022 10:47 AM CDT documented in this encounter Plan of Treatment Upcoming Encounters Date Type Department Care Team (Late st Contact Info) Description 11/03/2025 12:45 PM EST Office Visit [facility] Pulmonology - [address] [place] [address] Ben Barrios MD [address] [place] [address] documented as of this encounter Visit Diagnoses Not on filedocumented in this encounter Care Teams Project Admin Relationship Specialty Start Date End Date Amie Pena MD [facility] [place] [address] PCP - General Family Medicine 10/31/22 04/08/23 Marvel Grayson MD [address] [place] [address] PCP - General Family Medicine 05/17/23 Mravel Grayson [address] [place] [address] Family Practice 04/09/23 documented as of this encounter
--- OUTSIDE RECORDS SUMMARY | 2025-07-02 14:01 | XMS_ITS | Encounter Summary ---
Author Organization [employer] ([place], [place], [place], [place]) Address [address] [place] [address] Care Team Providers Care Skein Mercerizing Machine Operator Name Role Phone Amie Pena MD Primary Care Provider [phone] Marvel Grayson MD Primary Care Provider [phone] Encounter Details Date Type Department Care Team (Late st Contact Info) Description 07/07/2019 Transcribed Document [facility] [place] [address] ProviderMik MD [address] [place] [address] Social History Tobacco Use Types Packs/Day Years Used Date Smoking Tobacco: Never Assessed Comments Unknown Sex and Gender Information Value Date Recorded Sex Assigned at Not on file Legal Sex Female 6:09 PM CDT Gender Identity Not on file Sexual Orientation Not on file documented as of this encounter Miscellaneous Notes * Cerner Conversion Note - Historical ProviderMD - 07/07/2019 12:56 PM TAX SPECIALIST Javy [address] [address] Visit Date/Time: 07/07/2019 12:56:55 PRATIK SHABAZZ The above patient was seen in the hospital today and needs to be excused from work/school until Return to Work/School Date: 07/10/2019 documented in this encounter Plan of Treatment Upcoming Encounters Date Type Department Care Team (Late st Contact Info) Description 11/03/2025 12:45 PM EST Office Visit [facility] Pulmonology - [address] [place] [address] Ben Barrios MD [address] [place] [address] documented as of this encounter Visit Diagnoses Not on filedocumented in this encounter Care Teams Skein Mercerizing Machine Operator Relationship Specialty Start Date End Date Amie Pena MD [address] [place] [address] [place] [address] PCP - General Family Medicine 10/31/22 04/08/23 Marvel Grayson MD [address] [place] [address] [place] [address] PCP - General Family Medicine 05/17/23 Marvel Grayson [address], [place] [id number] Family Practice 04/09/23 documented as of this encounter
--- OUTSIDE RECORDS SUMMARY | 2025-07-02 14:01 | XMS_ITS | Clinical Summary ---
Author Organization [facility], [place] Address [address] [place] [address] Phone Care Team Providers Care [employer] 7 And 8 Teacher Name Role Phone Becky CORONADO, Amie Primary Care Physician [phone] Conditions or Problems Problem Name Problem Code [...] mass index [BMI] 27.0-27.9, adult Bronchitis, acute 66685612 (SNOMED CT) 05/06 Inactive 05/06 Rea Saavedra APRN Acute bronchitis Herpes simplex, oral 443937626 (SNOMED CT) 05/06 Active 05/06 Rea Saavedra APRN Oral herpes simplex infection Body mass index (BMI) 27.0-27.9; adult Z68.27 (ICD-10-CM ) 12/26 Removed 12/30 Amie Pena MD Body mass index [BMI] 27.0-27.9, adult Body mass index (BMI) 26.0-26.9; adult Z68.26 (ICD-10-CM ) 11/01 Correction 11/01 Amie Pena MD Body mass index [BMI] 26.0-26.9, adult Tobacco User 426183580 (SNOMED CT) 12/26 Active 12/26 Amie Pena [...] index [BMI] 28.0-28.9, adult Hx of STEMI 661038745 (SNOMED CT) 10/24 Active 10/26 Charissa Breen APRN History of artificial heart valve S/P STENT Health maintenance 57101455 (SNOMED CT) Resolved Charissa Breen APRN History AND physical examination Health maintenance 96834444 (SNOMED CT) Removed Amie Pena MD History [...] mass index [BMI] 28.0-28.9, adult Vitamin deficiency 83899005 (SNOMED CT) 04/08 Active 04/08 Nora Borrero APRN PMHNP Vitamin deficiency Body mass index (BMI) 28.0-28.9; adult Z68.28 (ICD-10-CM ) 02/08 Removed 02/09 Nora Feck EQUIPMENT SERVICES ASSOCIATE, PMHNP Body mass index [BMI] 28.0-28.9, adult Body mass index (BMI) 29.0-29.9; adult Z68.29 (ICD-10-CM ) 10/29 Correction 10/30 Nora Feck EQUIPMENT SERVICES ASSOCIATE, PMHNP Body mass index [BMI] 29.0-29.9, adult High risk medication management 019373376 (SNOMED CT) 02/08 Active 02/08 Nora Feck EQUIPMENT SERVICES ASSOCIATE, PMHNP High risk drug monitoring Anxiety disorder 845807351 (SNOMED CT) 02/08 Active 02/08 Nora Feck EQUIPMENT SERVICES ASSOCIATE, PMHNP Anxiety disorder PTSD 05427468 (SNOMED CT) 02/08 Active 02/08 Nora Feck EQUIPMENT SERVICES ASSOCIATE, PMHNP Post-traumatic stress disorder Bipolar 1 disorder, mixed 93890080 (SNOMED CT) 02/08 Active 02/08 Nora Feck EQUIPMENT SERVICES ASSOCIATE, PMHNP Mixed bipolar I disorder Axillary mass 062146364 (SNOMED CT) 01/24 Active 01/25 Amie Pena MD Mass of axilla Palpitation s, recurrent 61835754 (SNOMED CT) 10/29 Resolved 10/29 Charissa Breen APRN Palpitations Cough 97720791 (SNOMED CT) 09/18 Resolved 09/18 Charissa Breen APRN Cough Acquired absence of both cervix and uterus 529914901 (SNOMED CT) 03/02 Resolved 02/05 Charissa Breen APRN Total hysterectomy Health maintenance 18191650 (SNOMED CT) 02/05 Resolved 02/05 Charissa Breen APRN History AND physical examination Body mass index (BMI) 29.0-29.9; adult Z68.29 (ICD-10-CM ) 10/29 Removed 10/30 Amie Pena MD Body mass index [BMI] 29.0-29.9, adult Subcutaneou s mass of back 131105412 (SNOMED CT) 10/29 Active 10/30 Amie Pena MD Mass of skin Palpitation s, recurrent 50121410 (SNOMED CT) 10/29 Active 10/30 Amie Pena MD Palpitations Family hx of coronary arterioscle rosis (CAD) 093817346 (SNOMED CT) 10/29 Active 10/29 Amie Pena MD Family history of coronary arterioscleros is Cancer, family hx 340647388 (SNOMED CT) 10/29 Active 10/29 Amie Pena MD Family history of malignant neoplasm Palpitation s, recurrent 04101888 (SNOMED CT) 10/29 Removed 10/29 Amie Pena MD Palpitations Body mass index (BMI) 29.0-29.9; adult Z68.29 (ICD-10-CM ) 09/30 Correction 09/30 Amie Pena MD Body mass index [BMI] 29.0-29.9, adult Joint pain, hand 478282786 (SNOMED CT) 10/29 Active 10/29 Amie Pena MD Pain of joint of hand Localized swelling on back 051579164 (SNOMED CT) 10/29 Active 10/29 Amie Pena MD Finding of back Body mass index (BMI) 29.0-29.9; adult Z68.29 (ICD-10-CM ) 09/30 Removed 09/30 Amie Pena MD Body mass index [BMI] 29.0-29.9, adult Body mass index (BMI) 29.0-29.9; adult Z68.29 (ICD-10-CM ) 05/03 Correction 05/03 Amie Pena MD Body mass index [BMI] 29.0-29.9, adult Cough 19161430 (SNOMED CT) 09/18 Removed 09/18 Amie Pena MD Cough Body mass index (BMI) 29.0-29.9; adult Z68.29 (ICD-10-CM ) 05/03 Removed 05/03 Amie Pena MD Body mass index [BMI] 29.0-29.9, adult Body mass index (BMI) 28.0-28.9; adult Z68.28 (ICD-10-CM ) 02/05 Correction 02/05 Amie Pena MD Body mass index [BMI] 28.0-28.9, adult Chronic pain 46786254 (SNOMED CT) 05/03 Active 05/03 Amie Pena MD Chronic pain Fibromyalgi a 83402965 (SNOMED CT) 05/03 Active 05/03 Amie Pena 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 749003285 (SNOMED CT) 03/02 Active 02/05 Amie Pena MD Total hysterectomy Acquired absence of both cervix and uterus 413763235 (SNOMED CT) 03/02 Removed 02/05 Amie Pena MD Total hysterectomy Body mass index (BMI) 28.0-28.9; adult Z68.28 (ICD-10-CM ) 02/05 Removed 02/05 Amie Pena MD Body mass index [BMI] 28.0-28.9, adult Health maintenance 13092184 (SNOMED CT) 02/05 Removed 02/05 Amie Pena MD History AND physical examination Exposure to hepatitis C 462652841 (SNOMED CT) 02/05 Active 02/05 Amie Pena MD Exposure to Hepatitis C virus COPD 47764675 (SNOMED CT) 02/05 Active 02/05 Amie Pena MD Chronic obstructive pulmonary disease Asthma 599748823 (SNOMED CT) 02/05 Active 02/05 Amie Pena MD Asthma Medications Medication Instructions Start Date Stop Date Generic Name NDC Provider CEPHALEXIN 500 MG CAPS Take 1 capsule by mouth three times a day cephalexin 58740204631 Amie Pena MD ACYCLOVIR 5 % CREA Apply 1 a small amount to affected area five times a day for four days. START SOON POSSIBLE AFTER ONSET OF COLD SORES. acyclovir 19578535846 Rea Saavedra APRN ZITHROMAX Z-KISHAN 250 MG TABS Take 2 tablet by mouth once a day as directed 2 tablets for 1 day then 1 tablet once a day for 4 days. TAKE WITH FOOD. azithromycin 07383768779 Rea Saavedra APRN TIZANIDINE HCL 2 MG TABS TAKE 1 TABLET BY MOUTH THREE TIMES A DAY NEEDED FOR MUSCLE PAIN. 02/13 tizanidine 46162387302 Mickie Florence APRN TIZANIDINE HCL 2 MG TABS TAKE 1 TABLET BY MOUTH 3 TIMES A DAY NEEDED FOR MUSCLE PAIN tizanidine 26543286682 Amie Pena MD TIZANIDINE HCL 2 MG TABS TAKE 1 TABLET BY MOUTH THREE TIMES A DAY NEEDED FOR MUSCLE PAIN. tizanidine 12907366079 Amie Pena MD ATIVAN 0.5 MG TABS Take half or 1 tablet twice a day as needed for anxiety. lorazepam 70408825532 Amie Pena MD ISOSORBIDE MONONITRATE ER 60 MG [id number] Take 1 tablet by mouth every morning isosorbide mononitrate 65769431075 Rea Saavedra APRN ALBUTEROL SULFATE HFA 108 (90 Base) MCG/ACT AERS Inhale 2-4 puff every four hours as needed albuterol sulfate 30922162079 Amie Pena MD TRAZODONE HCL 50 MG TABS 0.5-2 tablet by mouth at bedtime as directed : take approx 30min prior to bedtime as needed 11/01 trazodone 66881691663 Nora Borrero APRN, PMHNP LINZESS 145 MCG CAPS Take 1 capsule by mouth once a day 11/01 linaclotide 48824407382 Amie Pena MD SHINGRIX 50 MCG/0.5ML SUSR Inject 1/2 ml intramuscularly single dose 11/01 varicella-zoster ge-as01b (pf) 19426850699 Amie Pena MD LATUDA 40 MG TABS Take 1 tablet by mouth every night with meals take with at least 250 calories 11/01 lurasidone 99715478449 Nora Feck EQUIPMENT SERVICES ASSOCIATE, PMHNP ALBUTEROL SULFATE HFA 108 (90 Base) MCG/ACT AERS Take 2 puff every four hours as needed 11/01 albuterol sulfate 54936709214 Erinn Edilberto CORBIN TOPIRAMATE 25 MG TABS topiramate 64124855550 Na Son MA NITROGLYCERIN 0.4 MG SUBL nitroglycerin 51563920364 Na paiz MA IBUPROFEN 800 MG TABS TAKE 1 TABLET BY MOUTH EVERY 8 HOURS NEEDED 10/26 ibuprofen 67265439295 Amie Pena MD METOPROLOL TARTRATE 25 MG TABS metoprolol tartrate 47117328184 Charissa Breen APRN ATORVASTATIN CALCIUM 80 MG TABS atorvastatin 27230934802 Charissa Breen APRN BRILINTA 90 MG TABS BID ticagrelor 85480707600 Charissa Breen APRN TIZANIDINE HCL 2 MG TABS Take 1 tablet by mouth three times a day as needed for pain TAKE 1 TABS THREE TIMES A DAY NEEDED FOR MUSCLE PAIN. 10/23 tizanidine 89605886571 Amie Pena MD TIZANIDINE HCL 2 MG TABS TAKE 1 TABLET BY MOUTH THREE TIMES A DAY NEEDED FOR MUSCLE PAIN. tizanidine 26660488295 Amie Pena MD LORATADINE 10 MG TABS TAKE 1 TABLET BY MOUTH 1 TIME A DAY NEEDED FOR ALLERGIES loratadine 18309241442 Amie Pena MD IBUPROFEN 800 MG TABS TAKE 1 TABLET BY MOUTH EVERY 8 HOURS NEEDED ibuprofen 92731779315 Amie Pena MD IBUPROFEN 800 MG TABS TAKE 1 TABLET BY MOUTH EVERY 8 HOURS NEEDED ibuprofen 78900159536 Amie Pena MD CLARITIN 10 MG TABS Take 1 tablet by mouth once a day as needed 09/25 loratadine 32326282980 Erinn Casanova CMA LORATADINE 10 MG TABS TAKE 1 TABLET BY MOUTH 1 TIME A DAY NEEDED FOR ALLERGIES loratadine 43064608728 Amie Pena MD VITAMIN B-12 1000 MCG TABS Take 1 tablet by mouth once a day cyanocobalamin (vitamin b-12) 89292671774 Amie Pena MD TIZANIDINE HCL 2 MG TABS TAKE 1 TABS THREE TIMES A DAY NEEDED FOR MUSCLE PAIN. tizanidine 61649715934 Amie Pena MD SHINGRIX 50 MCG/0.5ML SUSR Inject 1/2 ml intramuscularly single dose varicella-zoster ge-as01b (pf) 35973723377 Amie Pena MD TIZANIDINE HCL 2 MG TABS Take 1 tablet by mouth three times a day as needed for pain TAKE 1 TABS THREE TIMES A DAY NEEDED FOR MUSCLE PAIN. tizanidine 75658888049 Amie Pena MD LINZESS 145 MCG CAPS Take 1 capsule by mouth once a day linaclotide 11683391978 Amie Pena MD VITAMIN B-12 1000 MCG TABS Take 1 tablet by mouth once a day cyanocobalamin (vitamin b-12) 90284268424 Amie Pena MD HYDROCODONE-KIRSTIE TAMINOPHEN 7.5-325 MG TABS Take 1 tablet by mouth every six hours as needed hydrocodone-acet aminophen 13768677311 Garima Fitzpatrick MA GABAPENTIN 300 MG CAPS Take 1 capsule by mouth twice a day as needed for pain gabapentin 14533709055 Garima Fitzpatrick MA TRAZODONE HCL 50 MG TABS 0.5-2 tablet by mouth at bedtime as directed : take approx 30min prior to bedtime as needed trazodone 26558675022 Nora Feck EQUIPMENT SERVICES ASSOCIATE, PMHNP QUETIAPINE FUMARATE 50 MG TABS 0.5-2 tablet by mouth at bedtime as needed 05/05 quetiapine 73077582422 Nora Feck EQUIPMENT SERVICES ASSOCIATE, PMHNP QUETIAPINE FUMARATE 50 MG TABS TAKE 0.5-2 TABLET BY MOUTH AT BEDTIME NEEDED quetiapine 88314919338 Nora Feck EQUIPMENT SERVICES ASSOCIATE, PMHNP GABAPENTIN 300 MG CAPS Take 1 capsule by mouth twice a day as needed for pain gabapentin 52081479916 Allison Wild MA HYDROCODONE-KIRSTIE TAMINOPHEN 7.5-325 MG TABS Take 1 tablet by mouth every six hours as needed hydrocodone-acet aminophen 45233116647 Allison Wild MA TIZANIDINE HCL 2 MG TABS Take 1 tablet by mouth three times a day as needed 03/04 tizanidine 70553485899 Charissa Breen APRN TIZANIDINE HCL 2 MG TABS TAKE 1 TABS THREE TIMES A DAY NEEDED FOR MUSCLE PAIN. tizanidine 65208092084 Amie Pena MD QUETIAPINE FUMARATE 50 MG TABS 0.5-2 tablet by mouth at bedtime as needed quetiapine 48403956897 Nora Espinosakyara EQUIPMENT SERVICES ASSOCIATE, PMHNP LATUDA 40 MG TABS Take 1 tablet by mouth every night with meals take with at least 250 calories lurasidone 57424268442 Nora Jesúskyara EQUIPMENT SERVICES ASSOCIATE, PMHNP IBUPROFEN 800 MG TABS Take 1 tablet by mouth every eight hours as needed 01/24 ibuprofen 37564912337 Amie Pena MD IBUPROFEN 800 MG TABS TAKE 1 TABLET BY MOUTH EVERY 8 HOURS NEEDED ibuprofen 79280396127 Amie Pena MD INCRUSE ELLIPTA 62.5 MCG/ACT AEPB Use 1 once a day umeclidinium 69625213133 Amie Pena MD TIZANIDINE HCL 2 MG TABS Take 1 tablet by mouth three times a day as needed tizanidine 85163719503 Charissa Breen APRN SYMBICORT 160-4.5 MCG/ACT AERO Use 2 twice a day budesonide-formo terol 55004741825 Amie Pena MD CLARITIN 10 MG TABS Take 1 tablet by mouth once a day as needed loratadine 19515521441 Erinn Casanova SENIOR WINDOWS SYSTEMS ENGINEER ALBUTEROL SULFATE HFA 108 (90 Base) MCG/ACT AERS Take 2 puff every four hours as needed albuterol sulfate 67238488523 Erinn Edilberto SENIOR WINDOWS SYSTEMS ENGINEER IBUPROFEN 800 MG TABS Take 1 tablet by mouth every eight hours as needed ibuprofen 77608408677 Amie Pena MD HYDROCODONE-KIRSTIE TAMINOPHEN 5-325 MG TABS Take 1 tablet by mouth every six hours as needed hydrocodone-acet aminophen 11274546527 Amie Pena MD GABAPENTIN 300 MG CAPS Take 1 capsule by mouth at bedtime as needed for pain gabapentin 12456021766 Erinn Casanova SENIOR WINDOWS SYSTEMS ENGINEER TIZANIDINE HCL 2 MG TABS TAKE 1 TABS THREE TIMES A DAY NEEDED FOR MUSCLE PAIN. TIZANIDINE HCL 58769528843 Amie Pena MD TIZANIDINE HCL 2 MG TABS take 1 capsule three times a day as needed for muscle pain. TIZANIDINE HCL 09813660513 Amie Pena MD IBUPROFEN 800 MG TABS TAKE 1 TABLET BY MOUTH EVERY 8 HOURS NEEDED IBUPROFEN 04712979768 Amie Pena MD ZANAFLEX 4 MG ORAL CAPSULE take 1 capsule three times a day as needed for muscle pain. TIZANIDINE HCL 45291310475 Amie Pena MD SYMBICORT 160-4.5 MCG/ACT AERO USE 2 INHALATIONS TWICE A DAY BUDESONIDE-FORMO TEROL FUMARATE 51483192475 Amie Pena MD INCRUSE ELLIPTA 62.5 MCG/ACT AEPB USE 1 INHALATION ONCE A DAY UMECLIDINIUM BROMIDE 53106860037 Amie Pena MD SPIRIVA HANDIHALER 18 MCG CAPS USE 1 INHALATION ONCE A DAY 09/30 TIOTROPIUM BROMIDE MONOHYDRATE 27588500401 Amie Pena MD BREO ELLIPTA 100-25 MCG/ACT AEPB USE 1 INHALATION ONCE A DAY 09/30 FLUTICASONE FUROATE-VILANTER OL 90438405085 Amie Pena MD ZITHROMAX Z-KISHAN 250 MG TABS TAKE 2 TABLETS BY MOUTH ON DAY 1 THEN 1 TABLET BY MOUTH DAILY FOR 4 DAYS (DAY 2-5) 09/23 AZITHROMYCIN 58195295721 Amie Pena MD HYDROCODONE-KIRSTIE TAMINOPHEN 5-325 MG TABS take 1 tablet every 6 hours as needed for pain. HYDROCODONE-ACET AMINOPHEN 98274575670 Amie Pena MD ALBUTEROL SULFATE HFA 108 (90 Base) MCG/ACT AERS TAKE 2 PUFFS EVERY 4 HOURS NEEDED FOR WHEEZING ALBUTEROL SULFATE 30022576108 Amie Pena MD NYSTATIN 660297 UNIT/GM CREA APPLY THIN FILM 3 TIMES A DAY FOR 2 WEEKS 02/19 NYSTATIN 10924396567 Amie Pena MD CLARITIN 10 MG TABS TAKE 1 TABLET BY MOUTH 1 TIME A DAY NEEDED FOR ALLERGIES LORATADINE 30358136656 Amie Pena MD SPIRIVA HANDIHALER 18 MCG CAPS USE 1 INHALATION ONCE A DAY TIOTROPIUM BROMIDE MONOHYDRATE 95261225722 Amie Pena MD BREO ELLIPTA 100-25 MCG/ACT AEPB USE 1 INHALATION ONCE A DAY FLUTICASONE FUROATE-VILANTER OL 16437911960 Amie Pena MD Medications Administered No information [...] in Blood ABS NEUTROPH 5558 CELLS/UL 10*3/uL 4504-5484 N Neutrophils [#/volume] in Blood MPV 9.8 [...] Plan of Care Type Date Detail Referral Jaman Referral General Surgery Referral General Referral excluded [...] Procedures Code Procedure Name Date Entry Date [facility]-[id number] Medication Reconciliation Inj Order Injection(s) Ordered [id number] 340B Depo medrol 80mg/ml Injection 2021/05/15 CPT-3074F Most recent systolic blood pressure <130 mm Hg CPT-3078F Most recent diastoli c blood pressure <80 mm Hg [facility]-[id number] Medication Reconciliation CPT-3074F Most recent systolic blood pressure <130 mm Hg CPT-3078F Most recent diastoli c blood pressure <80 mm Hg SCT-123530172 Giving encouragement to exercise SCT-594003636 Dietary management education/guidance/counseling CPT II 4004F Patient screened for tobacco use and received tobacco cessation intervention SCT-[id number] Medication Reconciliation CPT-1159F Medication list docu mented in medical record CPT-1160F Review of all medica tions by a prescribing practitioner [facility] G1543 T1 Drug Screen STAND RACHELE-Urine w/o Confirmation SCT-756028819 Giving encouragement to exercise SCT-[id number] Medication Reconciliation CPT-3074F Most recent systolic blood pressure <130 mm Hg CPT-3078F Most recent diastoli c blood pressure <80 mm Hg CPT-1159F Medication list docu mented in medical record CPT-1160F Review of all medica tions by a prescribing practitioner [facility] 927 T1 B12 [facility] 6399 T1 CBC with diff [facility] 61215 T1 CMP [facility] 80124 T1 Lipid Panel [facility] 49714 T1 TSH reflex to free T4 202 10/06/00 Inj Order Injection(s) Ordered [id number] 340B Vitamin B-12 Injection CPT-33276 Cologuard 59190 Fluzone Quadrivalent CPT-71674 IMADM >18YR IM ROUTE 1ST VAC/TOXOID 06/17 SCT-910103912128430 Medication Reconciliation CPT-3074F Most recent systolic blood pressure <130 mm Hg CPT-3078F Most recent diastoli c blood pressure <80 mm Hg CPT-1159F Medication list docu mented in medical record CPT-1160F Review of all medica tions by a prescribing practitioner SCT-570609944698248 Medication Reconciliation CPT-3075F Most recent systolic blood pressure 130-139 mm Hg CPT-3079F Most recent diastoli c blood pressure 80-89 mm Hg CPT-3075F Most recent systolic blood pressure 130-139 mm Hg CPT-3079F Most recent diastoli c blood pressure 80-89 mm Hg CPT-1159F Medication list docu mented in medical record SCT-528403775227568 Medication Reconciliation [facility] 927 T1 B12 [facility] 6399 T1 CBC with diff [facility] 10028 T1 CMP [facility] 466 T1 Folic Acid [facility] 75904 T1 Hepatic Function Panel 20 23/04/06 [facility] 496 T1 HGBA1c [facility] 22929 T1 Lipid Panel [facility] 50327 T1 TSH reflex to free T4 202 09/10/05 [facility] 67819 T2 Vitamin D 25 Dihydroxy 20 23/04/06 CPT-3075F Most recent systolic blood pressure 130-139 mm Hg CPT-3078F Most recent diastoli c blood pressure <80 mm Hg SCT-544363546107034 Medication Reconciliation GEN SX GEN General Surgery Referral General SCT-[id number] Medication Reconciliation CPT-3074F Most recent systolic blood pressure <130 mm Hg CPT-3079F Most recent diastoli c blood pressure 80-89 mm Hg CPT-1159F Medication list docu mented in medical record CPT-1160F Review of all medica tions by a prescribing practitioner SCT-917045672 Giving encouragement to exercise SCT-964700301 Current every day smoker 20 22/01/04 SCT-363909378 Smoking cessation education CPT-3075F Most recent systolic blood pressure 130-139 mm Hg CPT-3079F Most recent diastoli c blood pressure 80-89 mm Hg SCT-309567101494871 Medication Reconciliation SCT-070108103 Giving encouragement to exercise CPT-1159F Medication list docu mented in medical record X-Ray Hand Right X-Ray Hand Right CPT-1160F Review of all medica tions by a prescribing practitioner PAIN GEN Pain Management Referral General X-Ray Thoracic Spine X-Ray Thoracic Spine [facility] 6399 T1 CBC with diff [facility] 50465 T1 CMP [facility] 249 T2 TORRES [facility] 4418 T2 Rheumatoid Factor Quant 2 [facility] 809 T1 Sedimentation Rate RBC 20 24/10/25 CARD GEN Cardiology Referral General CPT-3075F Most recent systolic blood pressure 130-139 mm Hg CPT-3079F Most recent diastoli c blood pressure 80-89 mm Hg SCT-015118418454710 Medication Reconciliation SCT-019129240 Giving encouragement to exercise CPT-1159F Medication list docu mented in medical record CPT-1160F Review of all medica tions by a prescribing practitioner SCT-825176057 Current every day smoker 20 23/09/27 SCT-027421497 Smoking cessation education SCT-632387458 Smoking cessation education 04905 Flulaval Quadrivalent 09/30 CPT-68570 IMADM >18YR IM R[address]TE 1ST VAC/TOXOID 09/30 [id number] 340B Depo medrol 80mg/ml Injection 09/30 Inj Order Injection(s) Ordered [facility] 6399 T1 CBC with diff [facility] 52411 T1 CMP [facility] 496 T1 HGBA1c [facility] 03308 T1 Lipid Panel [facility] 63638 T1 TSH reflex to free T4 09/03/27 [facility] 04942 T1 Acute Hepatits Panel 2020 CPT-1159F Medication list docu mented in medical record SCT-[id number] Medication Reconciliation SCT-323749388 Giving encouragement to exercise [facility] 71001 Patient Pay- COVID-19 09/18 X-Ray Chest X-Ray Chest SCT-[id number] Medication Reconciliation SCT-217642903 Giving encouragement to exercise CPT-3074F Most recent systolic blood pressure <130 mm Hg CPT-3078F Most recent diastoli c blood pressure <80 mm Hg PAIN GEN Pain Management Referral General CPT-1159F Medication list docu mented in medical record CPT-1160F Review of all medica tions by a prescribing practitioner [facility] F8318 T1 Drug Screen STAND RACHELE-Urine w/o Confirmation SCT-[id number] Medication Reconciliation Mammo ANAND Mammogram SCT-179310525 Giving encouragement to exercise [facility] 6399 T1 CBC with diff [facility] 42905 T1 CMP [facility] 38660 T1 Acute Hepatits Panel 2019 [facility] 96969 T1 Lipid Panel [facility] 70037 T1 TSH reflex to free T4 202 [facility]-[id number] [facility] Vital Signs Date Name Value Unit Description [...]
--- OUTSIDE RECORDS SUMMARY | 2025-07-02 14:01 | XMS_ITS | Encounter Summary ---
Author Organization [employer] ([place], [place], [place], [place]) Address [address] [place] [address] Care Team Providers Care Roadmaster Name Role Phone Amie Pena MD Primary Care Provider [phone] Marvel Grayson MD Primary Care Provider [phone] Encounter Details Date Type Department Care Team (Late st Contact Info) Description 07/08/2019 Transcribed Document [facility] [place] [address] [place] [address] ProviderMik MD [address] [place] [address] Social History Tobacco Use Types Packs/Day Years Used Date Smoking Tobacco: Never Assessed Comments Unknown Sex and Gender Information Value Date Recorded Sex Assigned at Not on file Legal Sex Female 6:09 PM CDT Gender Identity Not on file Sexual Orientation Not on file documented as of this encounter Miscellaneous Notes * [employer]ner Conversion Note - Mik Thorne MD - 07/08/2019 1:30 PM [facility] Authorization Entered On: 07/08/2019 13:30 EST Performed On: 07/08/2019 13:30 EST by FREDERIC PHAM RN-Utilization Review Primary Insurance Authorization Authorization and Policy Numbers : Insurance 1 Health Plan: [employer] Policy Number: [id number] Authorization Number: Insurance Primary Name : [facility] Authorization Status-Primary : Awaiting callback Reference Number-Primary : [id number] Authorized Service Begin Date-Primary : 07/05/2019 EDT Authorization Comments-Primary : [facility] auth still pending per website Historical Authorization Comments-Primary : Comment 1: [facility] auth still pending per website (FREDERIC PHAM RN-Utilization Review 07/07/2019 13:48) Comment 2: Clinicals submitted via [facility] portal. (SHAAN RICHTER Rn-Utilization Review 07/06/2019 09:45) Comment 3: Reference number retrieved from [facility] portal. (SHAAN RICHTER Rn-Utilization Review 07/06/2019 09:37) FREDERIC PHAM RN-Utilization Review - 07/08/2019 13:30 EST Electronically signed by [facility], [facility] Conversion Sales Manager [employer] at 12/16/2022 10:49 AM CDT documented in this encounter Plan of Treatment Upcoming Encounters Date Type Department Care Team (Late st Contact Info) Description 11/03/2025 12:45 PM EST Office Visit [facility] Pulmonology - [address] [place] [id number] Ben Barrios MD [address] [place] [address] documented as of this encounter Visit Diagnoses Not on filedocumented in this encounter Care Teams Roadmaster Relationship Specialty Start Date End Date Amie Pena MD [address] [place], [place] [address] [address] PCP - General Family Medicine 10/31/22 04/08/23 Marvel Grayson MD [address] [place] [address] PCP - General Family Medicine 05/17/23 Marvel Grayson [address] [place] [address] Family Practice 04/09/23 documented as of this encounter
--- OUTSIDE RECORDS SUMMARY | 2025-07-02 14:01 | XMS_ITS | Encounter Summary ---
Author Organization [facility] ([place], [place], [place], [place]) Address [address] [place] [address] Care Team Providers Care Miner Pick Name Role Phone Amie Pena MD Primary Care Provider [phone] Marvel Grayson MD Primary Care Provider [phone] Encounter Details Date Type Department Care Team (Late st Contact Info) Description 10/29/[address] [facility] Family Medicine [address] [place] [id number] ProviderMik MD [address] [place] [address] Social History Tobacco Use Types Packs/Day Years Used Date Smoking Tobacco: Never Assessed Comments Unknown Sex and Gender Information Value Date Recorded Sex Assigned at Not on file Legal Sex Female 6:09 PM CDT Gender Identity Not on file Sexual Orientation Not on file documented as of this encounter Miscellaneous Notes * Cerner Conversion Note - Mik ProviderMD - 10/29/2019 2:14 PM DIRECTOR LIFE ED Triage Entered On: 10/29/2019 14:18 EST Performed On: 10/29/2019 14:15 EST by Candy Forman, RESIDENTIAL INSURANCE INSPECTOR Triage Across the Room ED Vital Signs : Document Candy Forman RN - 10/29/2019 14:19 EST Chief Complaint : pt c/o left sided CP that goes to L shoulder , pt states its a constant dull pain. pt given 324mg ASA + 1 nitro en route Triage Date/Time : 10/29/2019 14:15 EST Candy Forman RN - 10/29/2019 14:15 EST DCP GENERIC CODE Tracking Group : [facility] Tracking Acuity : 2 - Emergent Candy Forman RN - 10/29/2019 14:15 EST Mode of Arrival : Ambulatory Transported to ED by : Ambulance/ALS EMS Service : [facility] [place] To Room Via : Ambulate Accompanied By : Unaccompanied Height & Weight : Document ED Allergies : Document ED Reason for Visit : Document Tetanus Immunization : Greater than 10 years Candy Forman RN - 10/29/2019 14:15 EST Infectious Disease History Physical contact outside [place] in the last 30 days : No Infectious Disease History : Chicken pox/Shingles, Influenza, Measles, Mumps, Other: staph LLF 02/2014 Tuberculosis Symptoms : None Candy Forman RN - 10/29/2019 14:15 EST Vital Signs ED Temperature Source : Oral Temperature Mode : Fahrenheit Temperature, Fahrenheit : 97.7 Deg F Clinical Temperature, C : 36.5 Deg C Oxygen Therapy Mode : Room air Peripheral Pulse Rate : 90 bpm Respiratory Rate : 18 Breaths/Min Systolic Blood Pressure : 121 mmHg Diastolic Blood Pressure : 78 mmHg Oxygen Saturation : 94 % Candy Forman RN - 10/29/2019 14:19 EST Allergy (As Of: 10/29/2019 14:18:32 EST) Allergies (Active) codeine Estimated Onset Date: Unspecified ; Reactions: Respiratory depression ; Comments: Comment 1: Patient has had hydromorphone and tolerated without problem ; Created By: ALBERTO PHELPS, PharmD; Reaction Status: Active ; Category: Drug ; Substance: codeine ; Type: Side Effect ; Updated By: ALBERTO PHELPS, PharmD; Reviewed Date: 10/29/2019 14:17 EST Cymbalta Estimated Onset Date: Unspecified ; Reactions: suicidal ; Created By: Ariella Hammer Rn; Reaction Status: Active ; Category: Drug ; Substance: Cymbalta ; Type: Allergy ; Updated By: Ariella Hammer Rn; Reviewed Date: 10/29/2019 14:17 EST doxycycline Estimated Onset Date: Unspecified ; Reactions: Vomiting ; Created By: ALLA ZAPATA RN; Reaction Status: Active ; Category: Drug ; Substance: doxycycline ; Type: Allergy ; Updated By: ALLA ZAPATA RN; Reviewed Date: 10/29/2019 14:17 EST Haldol Estimated Onset Date: Unspecified ; Reactions: Hives ; Created By: ALBERTO PHELPS PharmD; Reaction Status: Active ; Category: Drug ; Substance: Haldol ; Type: Allergy ; Updated By: ALBERTO PHELPS, PharmJasmine; Reviewed Date: 10/29/2019 14:17 EST Levaquin Estimated Onset Date: <not entered> 07/05/2018 ; Created By: Nasreen Fishman RN; Reaction Status: Active ; Category: Drug ; Substance: Levaquin ; Type: Allergy ; Severity: Low ; Updated By: Nasreen Fishman RN; Source: Patient ; Reviewed Date: 10/29/2019 14:17 EST penicillin Estimated Onset Date: Unspecified ; Reactions: Headache ; Created By: ALLA ZAPATA RN; Reaction Status: Active ; Category: Drug ; Substance: penicillin ; Type: Allergy ; Updated By: ALLA ZAPATA RN; Reviewed Date: 10/29/2019 14:17 EST Ultram Estimated Onset Date: Unspecified ; Reactions: Hives ; Created By: ALLA ZAPATA RN; Reaction Status: Active ; Category: Drug ; Substance: Ultram ; Type: Allergy ; Updated By: ALLA ZAPATA RN; Reviewed Date: 10/29/2019 14:17 EST Vraylar Estimated Onset Date: Unspecified ; Reactions: Suicidal thoughts ; Created By: ALLA ZAPATA RN; Reaction Status: Active ; Category: Drug ; Substance: Vraylar ; Type: Allergy ; Updated By: ALLA ZAPATA RN; Reviewed Date: 10/29/2019 14:17 EST Diagnosis Control ED (As Of: 10/29/2019 14:18:32 EST) Problems(Active) Arthritis (SNOMED CT :8836596 ) Name of Problem: Arthritis ; Recorder: LASHANDA WEBER RN; Confirmation: Confirmed ; Classification: Patient Stated ; Code: [id number] ; Contributor System: PowerChart ; Last Updated: 02/13/2014 15:57 EDT ; Life Cycle Date: 02/13/2014 ; Life Cycle Status: Active ; Vocabulary: SNOMED CT Asthma (SNOMED CT :[id number] ) Name of Problem: Asthma ; Recorder: PANCHO SAEED RN; Confirmation: Confirmed ; Classification: Medical ; Code: [id number] ; Contributor System: PowerChart ; Last Updated: 02/12/2014 19:24 EDT ; Life Cycle Date: 11/28/2013 ; Life Cycle Status: Active ; Vocabulary: SNOMED CT Back pain (SNOMED CT :229746245 ) Name of Problem: Back pain ; Recorder: DENNISE ALVAREZ RN; Confirmation: Confirmed ; Classification: Medical ; Code: [id number] ; Contributor System: PowerChart ; Last Updated: 07/13/2014 14:28 EST ; Life Cycle Date: 07/13/2014 ; Life Cycle Status: Active ; Vocabulary: SNOMED CT COPD (chronic obstructive pulmonary disease) (SNOMED CT :44292384 ) Name of Problem: COPD (chronic obstructive pulmonary disease) ; Recorder: ALLA ZAPATA RN; Confirmation: Confirmed ; Classification: Medical ; Code: [id number] ; Contributor System: PowerChart ; Last Updated: 04/11/2019 13:15 EDT ; Life Cycle Date: 04/11/2019 ; Life Cycle Status: Active ; Vocabulary: SNOMED CT COPD exacerbation (SNOMED CT :379306154 ) Name of Problem: COPD exacerbation ; Recorder: YURIY CASEY MD; Confirmation: Confirmed ; Classification: Medical ; Code: [id number] ; Contributor System: PowerChart ; Last Updated: 07/07/2019 11:33 EST ; Life Cycle Status: Active ; Responsible Provider: YURIY CASEY MD; Vocabulary: SNOMED CT Fibromyalgia (SNOMED CT :[id number] ) Name of Problem: Fibromyalgia ; Recorder: PANCHO SAEED RN; Confirmation: Confirmed ; Classification: Medical ; Code: [id number] ; Contributor System: PowerChart ; Last Updated: 02/12/2014 19:24 EDT ; Life Cycle Date: 11/28/2013 ; Life Cycle Status: Active ; Vocabulary: SNOMED CT H/O: hysterectomy (SNOMED CT :977091201 ) Name of Problem: H/O: hysterectomy ; Recorder: HOWARD HU RN; Confirmation: Confirmed ; Classification: Medical ; Code: [id number] ; Contributor System: PowerChart ; Last Updated: 12/29/2016 21:54 EDT ; Life Cycle Date: 12/29/2016 ; Life Cycle Status: Active ; Vocabulary: SNOMED CT heart burn (SNOMED CT :69816272 ) Name of Problem: heart burn ; Recorder: MARIAN YAO RN; Confirmation: Confirmed ; Classification: Medical ; Code: [id number] ; Contributor System: PowerChart ; Last Updated: 01/20/2019 18:21 EDT ; Life Cycle Date: 03/29/2015 ; Life Cycle Status: Active ; Vocabulary: SNOMED CT Irritable bowel syndrome (SNOMED CT :79544559 ) Name of Problem: Irritable bowel syndrome ; Recorder: Yi Hardy Rn; Confirmation: Confirmed ; Classification: Medical ; Code: [id number] ; Contributor System: PowerChart ; Last Updated: 04/18/2019 6:31 EDT ; Life Cycle Date: 04/18/2019 ; Life Cycle Status: Active ; Vocabulary: SNOMED CT Migraine (SNOMED CT :07097534 ) Name of Problem: Migraine ; Recorder: Yi Hardy Rn; Confirmation: Confirmed ; Classification: Medical ; Code: [id number] ; Contributor System: PowerChart ; Last Updated: 04/18/2019 6:30 EDT ; Life Cycle Date: 04/18/2019 ; Life Cycle Status: Active ; Vocabulary: SNOMED CT Peripheral neuropathy (SNOMED CT :980758621 ) Name of Problem: Peripheral neuropathy ; Recorder: Yi Hardy Rn; Confirmation: Confirmed ; Classification: Medical ; Code: [id number] ; Contributor System: PowerChart ; Last Updated: 04/18/2019 6:32 EDT ; Life Cycle Date: 04/18/2019 ; Life Cycle Status: Active ; Vocabulary: SNOMED CT PTSD (post-traumatic stress disorder) (SNOMED CT :23565495 ) Name of Problem: PTSD (post-traumatic stress disorder) ; Recorder: MARIAN YAO RN; Confirmation: Confirmed ; Classification: Medical ; Code: [id number] ; Contributor System: SyntricityChart ; Last Updated: 03/29/2015 21:19 EDT ; Life Cycle Date: 03/29/2015 ; Life Cycle Status: Active ; Vocabulary: SNOMED CT Sciatica (SNOMED CT :96665866 ) Name of Problem: Sciatica ; Recorder: TRISH MCMAHON RN; Confirmation: Confirmed ; Classification: Medical ; Code: [id number] ; Contributor System: Gourmant ; Last Updated: 05/24/2015 17:38 EDT ; Life Cycle Date: 05/24/2015 ; Life Cycle Status: Active ; Vocabulary: SNOMED CT Diagnoses(Active) Chest pain Date: 10/29/2019 ; Diagnosis Type: Reason For Visit ; Confirmation: Complaint of ; Clinical Dx: Chest pain ; Classification: Medical ; Clinical Service: Non-Specified ; Code: PNED ; Probability: 0 ; Diagnosis Code: [id number] ED Height and Weight Height Source : Estimated Height Entry Format : [place] Height, Feet : 5 ft(Converted to: 152 cm, 60 Inch) Height, Inches : 11 Inch(Converted to: 0 ft 11 Inch, 27.94 cm) Clinical Height : 180.34 cm Weight Source, ED : Critical estimated dosing weight Weight Entry Format : [place] Weight, Pounds : 200 lb Clinical Dosing Weight : 90.91 kg Body Surface Area (BSA) : 2.11 m2 Body Mass Index : 28 kg/m2 (HI) [place] Body Weight (IBW) : 70.31 kg Candy Forman RN - 10/29/2019 14:15 EST ED Influenza/Pneumoccocal Vaccine Influenza Immunization, Current Season : Yes Previous Vaccines from Immunization Schedule : Previous Vaccines and Immunizations influenza virus vaccine, inactivated: 0.5 mL (07/07/19 13:28:00) Candy Forman RN - 10/29/2019 14:15 EST documented in this encounter Plan of Treatment Upcoming Encounters Date Type Department Care Team (Late st Contact Info) Description 11/03/2025 12:45 PM EST Office Visit [facility] Pulmonology - [address] [place] [id number] Ben Barrios MD [address] [place] [address] documented as of this encounter Visit Diagnoses Not on filedocumented in this encounter Care Teams Miner Pick Relationship Specialty Start Date End Date Amie Pena MD [address] [place] [address] [place] [address] PCP - General Family Medicine 10/31/22 04/08/23 Marvel Grayson MD [address] [place] [address] [place] [address] PCP - General Family Medicine 05/17/23 Marvel Grayson [address] [place] [address] Family Practice 04/09/23 documented as of this encounter
--- OUTSIDE RECORDS SUMMARY | 2025-07-02 14:01 | XMS_ITS | Encounter Summary ---
Author Organization [facility] ([place], [place], [place], [place]) Address [address] [place] [address] Care Team Providers Care Hearing Dog Trainer Name Role Phone Amie Pena MD Primary Care Provider [phone] Marvel Grayson MD Primary Care Provider [phone] Encounter Details Date Type Department Care Team (Late st Contact Info) Description 07/07/2019 Transcribed Document [facility] Family Medicine [facility] [place] [address] ProviderMik MD [address] [place] [id number] Social History Tobacco Use Types Packs/Day Years Used Date Smoking Tobacco: Never Assessed Comments Unknown Sex and Gender Information Value Date Recorded Sex Assigned at Not on file Legal Sex Female 6:09 PM CDT Gender Identity Not on file Sexual Orientation Not on file documented as of this encounter Miscellaneous Notes * Cerner Conversion Note - Mik Thorne MD - 07/07/2019 12:59 PM [facility] [address] [address] PRATIK SHABAZZ :1970 Visit Time:07/05/2019 Your Visit Summary Your Care Team Admitting Physician - LI LUEVANO MD-INT Attending Physician - LI LUEVANO MD-INT Primary Care Physician - ELENO, UNKNOWN Referring Physician - RENÉE MIXON MD-EMR Your Diagnosis COPD exacerbation Pneumonia, unspecified organism, Pneumonia, unspecified organism Discharge Vitals Temperature 36.4 ??C Heart Rate (Monitored) 104 Respiratory Rate 18 Blood Pressure 115/70 What to do next Instructions From Your Care Team Discharge Activity: Discharge Activity: Activity as tolerated Diet: Discharge Diet: Resume usual diet as tolerated Follow-Up Appointments Follow Up with TAMARA VICTORIA When 07/16/2019 03:00 PM EST Comments Please arrive 30 minutes before appointment, bring photo ID, proof of insurance, new patient paperwork and your discharge summary. Please confirm appointment with office prior to your arrival date. If you do not call to confirm, or if office cannot reach you to confirm, office may cancel your appointment. Office may charge a fee for not attending scheduled appointment. Any questions please contact the Patient [facility] at [phone]. Where: [address] [place] [address] [facility] (1) Follow Up with Follow up with primary care provider When Within 1 to 2 weeks Medications What How Much When Instructions Next Dose albuterol-ipratropium (DuoNeb 0.5 mg-2.5 mg/ 3 mL inhalation solution) 3 Milliliter(s) Nebulized Inhalation Every 4 Hours this afternoon 07/07/2019, if needed azithromycin (azithromycin 250 mg oral tablet) 1 Tablet(s) Oral Every Day Duration: 3 Day(s) Pickup at [facility] #[id number] tomorrow morning 07/08/2019 cefdinir (cefdinir 300 mg oral capsule) 1 Capsule(s) Oral Every 12 hours Duration: 10 Day(s) Pickup at [facility] #[id number] this evening 07/07/2019 formoterol-mometasone (Dulera 100 mcg-5 mcg/ inh inhalation aerosol) 2 Puff(s) Inhalation Two Times A Day Duration: 21 Day(s) Pickup at [facility] #[id number] this evening 07/07/2019 ipratropium (Atrovent 0.02% inhalation solution) 2.5 Milliliter(s) Nebulized Inhalation Every 4 Hours Printed Prescription this afternoon 07/07/2019, if needed methylPREDNISolone (Medrol 4 mg oral tablet) 1 Packet(s) Oral One Time Order as directed on package labeling Pickup at [facility] #[id number] follow the taper instructions from the pharmacy albuterol (albuterol 2.5 mg/ 3 mL (0.083%) inhalation solution) this afternoon 07/07/2019, if needed gabapentin (gabapentin 300 mg oral capsule) 1 Capsule(s) Two Times A Day this evening 07/07/2019 Pharmacy Information [facility] #[id number]: [address] [place], [place] [id number] [phone] Take your medications faithfully. Do NOT skip medication. Do NOT stop taking medications without the direction of a physician. Carry a list of your medications with you at all times, and take this medication list with you to your first follow up visit. Report any side effects. Avoid herbal remedies unless discussed with your physician. As part of your treatment plan, your physician may have prescribed a limited course of a controlled substance. This medication may be given to help people with moderate or severe pain or for other medical conditions, but there are risks involved with treatment. Common side effects may include nausea, constipation, drowsiness, sweating, itching, dry mouth, and rash. More serious side effects may include cognitive and motor impairment, like problems with thinking, concentrating, alertness, and movement (e.g. slowed reflexes), and driving and operating heavy machinery can be dangerous. It is important for you to talk to your physician if you have these side effects or questions. These controlled substances can produce physical dependence and be habit-forming if taken for an extended period of time, which means that the body has gotten used to them and may experience withdrawal symptoms if they are abruptly stopped. Withdrawal symptoms can include runny nose, sweating, goose bumps, diarrhea, abdominal cramping, rapid heartbeat, difficulty sleeping, and nervousness. Please dispose of unused and medications per your retail pharmacy guidance. Allergies Levaquin Cymbalta (suicidal) Haldol (Hives) Ultram (Hives) Vraylar (Suicidal thoughts) codeine (Respiratory depression) doxycycline (Vomiting) penicillin (Headache) Immunizations This Visit No Immunizations Found Education Materials Spinal Fusion, Adult, Care After This sheet gives you information about how to care for yourself after your procedure. Your doctor may also give you more specific instructions. If you have problems or questions, contact your doctor. Follow these instructions at home: Medicines ??? Take jhdt-unt-juzmbhj and prescription medicines only as told by [...] Leave the ice on for 20 minutes, 2???3 times a day. Surgery cut care ??? Follow instructions from your doctor about how to take care of your cut from surgery (incision). Make sure you: ? Wash your hands with soap and water before you change your bandage (dressing). If you cannot use soap and water, use hand business law instructor. ? Change your bandage as told by [...] your pee (urine) pale yellow. ? Take mpco-ssd-avrjcox or prescription medicines. ? Eat foods that [...] 12/14/2011 Document Revised: 12/04/2017 Document Reviewed: 12/04/2017 [employer] Patient Education ?? 2019 [employer] Sciatica Sciatica is pain, numbness, weakness, [...] these instructions at home: Medicines ??? Take yjqm-hxu-gcudaye and prescription medicines only as told by your doctor. ??? Do not drive or use heavy machinery while taking prescription pain medicine. Managing pain ??? If directed, put ice on the affected area. ? Put ice in a plastic bag. ? Place a towel between your skin and the bag. ? Leave the ice on for 20 minutes, 2???3 times a day. ??? After icing, apply heat to the affected area before you exercise or as often as told by your doctor. Use the heat source that your doctor tells you to use, such as a moist heat pack or a heating pad. ? Place a towel between your skin and the heat source. ? Leave the heat on for 20???30 minutes. ? Remove the heat if your [...] 05/29/2009 Document Revised: 01/25/2017 Document Reviewed: 04/28/2016 [employer] Patient Education ?? 2019 [employer]. Peripheral Neuropathy Peripheral neuropathy is a type [...] pain. Medicines may include: ? Prescription or uegm-jaz-ofgafhs pain medicine. ? Antiseizure medicine. ? Antidepressants. ? Pain-relieving patches that are applied to painful areas of skin. ??? Surgery to relieve pressure on a nerve or to destroy a nerve that is causing pain. ??? Physical therapy to help improve movement and balance. ??? Devices to help you move around (assistive devices). Follow these instructions at home: Medicines ??? Take vwtb-bit-cekmdkj and prescription medicines only as told by [...] 08/10/2003 Document Revised: 10/29/2017 Document Reviewed: 10/29/2017 [employer] Patient Education ?? 2019 [employer] Asthma Action Plan, Adult Introduction An asthma [...] ??? Your symptoms do not improve within 15???20 minutes after you use your reliever or rescue medicine (bronchodilator). If you have any of these symptoms: ??? Call your local emergency services (911 in the [place] or go to the nearest emergency room. ??? Use your reliever or rescue medicine. ? Start a nebulizer treatment or take 2???4 puffs from a metered-dose inhaler with a spacer. ? Repeat this action every 15???20 minutes until help arrives. Yellow zone Symptoms [...] A peak flow reading that is to (50???79% of your personal best). If you have any of these symptoms: ??? Add the following medicine to the ones that you use daily: ? Reliever or rescue medicine and dosage: ? Additional medicine and dosage: Call your health care provider if: ??? You remain in the yellow zone for hours. ??? You are using a reliever or rescue medicine more than 2???3 times a week. Green zone This zone [...] a reliever or rescue medicine more than 2???3 times a week. Where to find more information You can find more information about asthma from: ??? Centers for Disease Control and Prevention: www.cdc.gov/asthma ??? [place] [employer]: www.lung.org This information is not intended to replace advice given to you by your health care provider. Make sure you discuss any questions you have with your health care provider. Document Released: 06/17/2010 Document Revised: 05/01/2018 Document Reviewed: 05/01/2018 [employer] Interactive Patient Education ?? 2019 [employer] Chronic Obstructive Pulmonary Disease Chronic obstructive pulmonary [...] these instructions at home: Medicines ??? Take rgzg-lui-zbrrtgq and prescription medicines (inhaled or pills) only [...] 05/30/2006 Document Revised: 02/13/2018 Document Reviewed: 09/24/2017 [employer] Patient Education ?? 2019 [employer] Chronic Obstructive Pulmonary Disease Exacerbation Chronic [...] these instructions at home: Medicines ??? Take fivm-jbx-iedafrh and prescription medicines only as told by [...] and water are not available, use hand business law instructor. ??? During flu season, avoid enclosed spaces [...] 06/16/2008 Document Revised: 02/13/2018 Document Reviewed: 09/24/2017 [employer] Patient Education ?? 2019 [employer]. formoterol and mometasone (for ÁNGEL tovar and ángel irene) Luz What is the most important information I should know about formoterol and mometasone? Formoterol and mometasone is not a rescue medicine for asthma attacks. Seek medical attention if your breathing problems get worse quickly, or if you think your asthma medications are not working as well. What is formoterol and mometasone? Formoterol is a long-acting bronchodilator. Mometasone is a steroid. Formoterol and mometasone is a combination medicine used to control and prevent the symptoms of asthma in adults and children at least 12 years old. This medicine is not for use in treating an asthma or bronchospasm attack. Formoterol when used alone may increase the risk of in people with asthma. However, this risk is not increased when formoterol and mometasone are used together as a combination product. Formoterol and mometasone may also be used for purposes not listed in this medication guide. What should I discuss with my healthcare provider before using formoterol and mometasone? You should not use this medicine if you are allergic to formoterol or mometasone. Mometasone can weaken your immune system. Tell your doctor about any illness or infection you've had within the past several weeks. Tell your doctor if you have ever had: ?? heart disease, high blood pressure; ?? a seizure; ?? a weak immune system; ?? liver disease; ?? osteoporosis; ?? glaucoma, cataracts, or other vision problems; ?? diabetes; ?? a drug allergy; ?? pheochromocytoma (tumor of the adrenal gland); ?? a thyroid disorder; or ?? an aneurysm (a weakened or damaged blood vessel that could tear and cause severe bleeding). Tell your doctor if you are or . Formoterol and mometasone is not approved for use by anyone younger than 12 years old. How should I use formoterol and mometasone? Follow all directions on your prescription label and read all medication guides. Use the medicine exactly as directed. Using too much of this medicine can cause life-threatening side effects. Formoterol and mometasone is not a rescue medicine for asthma attacks. Use only fast-acting inhalation medicine for an attack. Seek medical attention if your breathing problems get worse quickly, or if you think your asthma medications are not working as well. Read and carefully follow any Instructions for Use provided with your medicine. Ask your doctor or pharmacist if you do not understand these instructions. Rinse your mouth with water after each use of your inhaler. It may take up to 1 week before your symptoms improve. Keep using the medication as directed and tell your doctor if your symptoms do not improve. Your doctor may tell you to stop using formoterol and mometasone once your asthma is well controlled. If you use a peak flow meter at home, tell your doctor if your numbers are lower than normal. Store at room temperature away from moisture and high heat. The canister may explode if it gets too hot. Do not puncture or burn an empty inhaler canister. Store the 60-inhalation canister on its side, or with the mouthpiece down. What happens if I miss a dose? Skip the missed dose and use your next dose at the regular time. Do not use two doses at one time. What happens if I overdose? Seek emergency medical attention or call the Poison Help line at . Overdose symptoms may include chest pain, fast heart rate, and feeling shaky or short of breath. What should I avoid while using formoterol and mometasone? Do not use a second inhaled bronchodilator that contains formoterol or a similar medicine (such as arformoterol, indacaterol, olodaterol, salmeterol, or vilanterol). Avoid being near people who are sick or have infections. Call your doctor for preventive treatment if you are exposed to chickenpox or measles. These conditions can be serious or even fatal in people who are using a medicine that contains mometasone (a steroid). What are the possible side effects of formoterol and mometasone? Get emergency medical help if you have signs of an allergic reaction: hives; difficulty breathing; swelling of your face, lips, tongue, or throat. Call your doctor at once if you have: ?? worsening asthma symptoms; ?? sores or white patches in your mouth and throat, pain when swallowing; ?? tremors, nervousness, chest pain, fast or pounding heartbeats; ?? fever, chills, cough with mucus, feeling short of breath; ?? wheezing, choking, or other breathing problems after using this medication; ?? blurred vision, tunnel vision, eye pain or redness, or seeing halos around lights; ?? high blood sugar--increased thirst, increased urination, dry mouth, fruity breath odor; ?? low potassium level--leg cramps, constipation, irregular heartbeats, fluttering in your chest, numbness or tingling, muscle weakness or limp feeling; or ?? signs of a hormonal disorder--tiredness or weakness, feeling light-headed, nausea, vomiting. Mometasone can affect growth in children. Tell your doctor if your child is not growing at a normal rate while using this medicine. Common side effects may include: ?? runny or stuffy nose, sinus pain; ?? headache; or ?? cough, sore throat. This is not a complete list of side effects and others may occur. Call your doctor for medical advice about side effects. You may report side effects to FDA at 4-467-SQW-7543. What other drugs will affect formoterol and mometasone? Sometimes it is not safe to use certain medications at the same time. Some drugs can affect your blood levels of other drugs you take, which may increase side effects or make the medications less effective. Tell your doctor about all your other medicines, especially: ?? antifungal medicine such as ketoconazole; or ?? medicine to treat HIV (especially if it contains cobicistat, lopinavir, or ritonavir). This list is not complete. Other drugs may affect formoterol and mometasone, including prescription and pkkv-gku-ytmlthr medicines, vitamins, and herbal products. Not all possible drug interactions are listed here. Where can I get more information? Your pharmacist can provide more information about formoterol and mometasone. Remember, keep this and all other medicines out of the reach of children, never share your medicines with others, and use this medication only for the indication prescribed. Every effort has been made to ensure that the information provided by [employer] is accurate, up-to-date, and complete, but no guarantee is made to that effect. Drug information contained herein may be time sensitive. [employer] information has been compiled for use by healthcare practitioners and consumers in the [place] and therefore [employer] does not warrant that uses outside of the [place] are appropriate, unless specifically indicated otherwise. [employer]'s drug information does not endorse drugs, diagnose patients or recommend therapy. [employer] drug information is an informational resource designed to assist licensed healthcare practitioners in caring for their patients and/or to serve consumers viewing this service as a supplement to, and not a substitute for, the expertise, skill, knowledge and judgment of healthcare practitioners. The absence of a warning for a given drug or drug combination in no way should be construed to indicate that the drug or drug combination is safe, effective or appropriate for any given patient. [employer] does not assume any responsibility for any aspect of healthcare administered with the aid of information [facility] provides. The information contained herein is not intended to cover all possible uses, directions, precautions, warnings, drug interactions, allergic reactions, or adverse effects. If you have questions about the drugs you are taking, check with your doctor, nurse or pharmacist. Copyright 3596-1809 [facility]. Version: 07.04. Revision Date: 02/03/2019. azithromycin (oral/injection) (a LAURENSCOTT BEJARANO sin) Azithromycin 3 Day Dose Pack, Azithromycin 5 Day Dose Pack, Zithromax, Zithromax IV, Zithromax TRI-KISHAN, Zithromax Z-Kishan What is the most important information I should know about azithromycin? You should not use azithromycin if you have ever had an allergic reaction, jaundice, or liver problems while taking this medicine. You should not use azithromycin if you have ever had a severe allergic reaction to similar drugs such as clarithromycin, erythromycin, or telithromycin. What is azithromycin? Azithromycin is used to treat many different types of infections caused by bacteria, including infections of the lungs, sinus, throat, tonsils, skin, urinary tract, cervix, or genitals. Azithromycin may also be used for purposes not listed in this medication guide. What should I discuss with my healthcare provider before using azithromycin? You should not use azithromycin if you are allergic to it, or if you have ever had: ?? jaundice or liver problems caused by taking azithromycin; or ?? a severe allergic reaction to similar drugs such as clarithromycin, erythromycin, or telithromycin. Azithromycin oral should not be used to treat pneumonia in people who have: ?? cystic fibrosis; ?? an infection after being in a hospital; ?? an infection in the blood; ?? a weak immune system (caused by diseases such as HIV/AIDS or cancer); or ?? in older adults and those who are ill or debilitated. Tell your doctor if you have ever had: ?? pneumonia; ?? liver or kidney disease; ?? myasthenia gravis; ?? low levels of potassium in your blood; ?? a heart rhythm disorder; or ?? long QT syndrome (in you or a family member). It is not known whether this medicine is effective in treating genital ulcers in women. Tell your doctor if you are or . Taking azithromycin while may cause diarrhea, vomiting, or rash in the nursing baby. Azithromycin is not approved for use by anyone younger than 6 months old. Azithromycin should not be used to treat a throat or tonsil infection in a child younger than 2 years old. How should I take azithromycin? Follow all directions on your prescription label and read all medication guides or instruction sheets. Use the medicine exactly as directed. Azithromycin oral is taken by mouth. Azithromycin injection is given as an infusion into a vein, usually for 2 days before you switch to azithromycin oral. A healthcare provider will give you this injection. You may take azithromycin oral with or without food. Shake the oral suspension (liquid) before you measure a dose. Use the dosing syringe provided, or use a medicine dose-measuring device (not a kitchen spoon). Use this medicine for the full prescribed length of time, even if your symptoms quickly improve. Skipping doses can increase your risk of infection that is resistant to medication. Azithromycin will not treat a viral infection such as the flu or a common cold. Store at room temperature away from moisture and heat. Throw away any unused liquid medicine after 10 days. What happens if I miss a dose? Take the medicine as soon as you can, but skip the missed dose if it is almost time for your next dose. Do not take two doses at one time. What happens if I overdose? Seek emergency medical attention or call the Poison Help line at . What should I avoid while taking azithromycin? Antibiotic medicines can cause diarrhea, which may be a sign of a new infection. If you have diarrhea that is watery or bloody, call your doctor before using anti-diarrhea medicine. Azithromycin could make you sunburn more easily. Avoid sunlight or tanning beds. Wear protective clothing and use sunscreen (SPF 30 or higher) when you are outdoors. What are the possible side effects of azithromycin? Get emergency medical help if you have signs of an allergic reaction (hives, difficult breathing, swelling in your face or throat) or a severe skin reaction (fever, sore throat, burning in your eyes, skin pain, red or purple skin rash that spreads and causes blistering and peeling). Seek medical treatment if you have a serious drug reaction that can affect many parts of your body. Symptoms may include: skin rash, fever, swollen glands, muscle aches, severe weakness, unusual bruising, or yellowing of your skin or eyes. Call your doctor at once if you have: ?? severe stomach pain, diarrhea that is watery or bloody; ?? fast or pounding heartbeats, fluttering in your chest, shortness of breath, and sudden dizziness (like you might pass out); or ?? liver problems--nausea, vomiting, loss of appetite, stomach pain (upper right side), tiredness, itching, dark urine, colby-colored stools, jaundice (yellowing of the skin or eyes); Call your doctor right away if a baby taking azithromycin becomes irritable or vomits while eating or nursing. Older adults may be more likely to have side effects on heart rhythm, including a life-threatening fast heart rate. Common side effects may include: ?? nausea, vomiting; or ?? stomach pain. This is not a complete list of side effects and others may occur. Call your doctor for medical advice about side effects. You may report side effects to FDA at 6-000-FJV-4878. What other drugs will affect azithromycin? Tell your doctor about all your other medicines, especially: ?? colchicine; ?? digoxin; ?? nelfinavir; ?? phenytoin; ?? an antacid that contains aluminum or magnesium--Acid Gone, Gaviscon, Gelusil, Maalox, Milk of Magnesia, Mylanta, Pepcid Complete, Rolaids, Rulox, and others; or ?? a blood thinner--warfarin, Coumadin, Jantoven. This list is not complete. Other drugs may affect azithromycin, including prescription and kbut-hrz-nwxvgqz medicines, vitamins, and herbal products. Not all possible drug interactions are listed here. Where can I get more information? Your pharmacist can provide more information about azithromycin. Remember, keep this and all other medicines out of the reach of children, never share your medicines with others, and use this medication only for the indication prescribed. Every effort has been made to ensure that the information provided by [employer] ('[employer]') is accurate, up-to-date, and complete, but no guarantee is made to that effect. Drug information contained herein may be time sensitive. [employer] information has been compiled for use by healthcare practitioners and consumers in the [place] and therefore [employer] does not warrant that uses outside of the [place] are appropriate, unless specifically indicated otherwise. [employer]'s drug information does not endorse drugs, diagnose patients or recommend therapy. [employer] drug information is an informational resource designed to assist licensed healthcare practitioners in caring for their patients and/or to serve consumers viewing this service as a supplement to, and not a substitute for, the expertise, skill, knowledge and judgment of healthcare practitioners. The absence of a warning for a given drug or drug combination in no way should be construed to indicate that the drug or drug combination is safe, effective or appropriate for any given patient. [facility] does not assume any responsibility for any aspect of healthcare administered with the aid of information [facility] provides. The information contained herein is not intended to cover all possible uses, directions, precautions, warnings, drug interactions, allergic reactions, or adverse effects. If you have questions about the drugs you are taking, check with your doctor, nurse or pharmacist. Copyright 4041-0549 [employer] Version: 18.01. Revision Date: 01/02/2019. cefdinir (SE jennifer maría) Omnicef, Omnicef Omni-Pac What is the most important information I should know about cefdinir? Do not take this medicine if you are allergic to cefdinir, or to similar antibiotics, such as Ceftin, Cefzil, Keflex, and others. What is cefdinir? Cefdinir is a cephalosporin (SEF a low spor in) antibiotic that is used to treat many different types of infections caused by bacteria. Cefdinir may also be used for purposes not listed in this medication guide. What should I discuss with my healthcare provider before taking cefdinir? You should not take this medicine if you are allergic to cefdinir or to other cephalosporin antibiotics, such as: ?? cefaclor; ?? cefadroxil; ?? cefazolin; ?? cefditoren; ?? cefpodoxime; ?? cefprozil; ?? ceftibuten; ?? cefuroxime; ?? cephalexin; or ?? cephradine, and others. Tell your doctor if you have ever had: ?? kidney disease (or if you are on dialysis); ?? intestinal problems, such as colitis; or ?? an allergy to any drugs (especially penicillins). Cefdinir suspension (liquid) contains sucrose. Talk to your doctor before using this form of cefdinir if you have diabetes. It is not known whether this medicine will harm an unborn baby. Tell your doctor if you are . How should I take cefdinir? Follow all directions on your prescription label and read all medicine guides or instruction sheets. Use the medicine exactly as directed. Shake the oral suspension (liquid) before you measure a dose. Use the dosing syringe provided, or use a medicine dose-measuring device (not a kitchen spoon). You may take cefdinir with or without food. Use this medicine for the full prescribed length of time, even if your symptoms quickly improve. Skipping doses can increase your risk of infection that is resistant to medication. Cefdinir will not treat a viral infection such as the flu or a common cold. Cefdinir can affect the results of certain medical tests. Tell any doctor who treats you that you are using cefdinir. Store at room temperature away from moisture and heat. Throw away any unused cefdinir liquid that is older than 10 days. What happens if I miss a dose? Electronically signed by Karthikeyan Bean Conversion Portable Power Tool Repairer Cerner at 12/16/2022 10:40 AM CDT documented in this encounter Plan of Treatment Upcoming Encounters Date Type Department Care Team (Late st Contact Info) Description 11/03/2025 12:45 PM EST Office Visit [facility] Pulmonology - [address] [place] [id number] Ben Barrios MD [address] [place] [address] documented as of this encounter Visit Diagnoses Not on filedocumented in this encounter Care Teams Hearing Dog Trainer Relationship Specialty Start Date End Date Amie Pena MD [facility] [place] [address] PCP - General Family Medicine 10/31/22 04/08/23 Marvel Grayson MD [address] [place] [address] PCP - General Family Medicine 05/17/23 Marvel Grayson [address] [facility], [place] [id number] Family Practice 04/09/23 documented as of this encounter
--- OUTSIDE RECORDS SUMMARY | 2025-07-02 14:01 | XMS_ITS | Encounter Summary ---
Author Organization [employer] ([place], [place], [place], [place]) Address [address] [place] [address] Care Team Providers Care Leasing Professional Name Role Phone Amie Pena MD Primary Care Provider [phone] Marvel Grayson MD Primary Care Provider [phone] Encounter Details Date Type Department Care Team (Late st Contact Info) Description 07/10/2019 Transcribed Document [facility] Radiology [address] [place] [address] Provider, Karthikeyan Houser MD Social History Tobacco Use Types Packs/Day Years Used Date Smoking Tobacco: Never Assessed Comments Unknown Sex and Gender Information Value Date Recorded Sex Assigned at Not on file Legal Sex Female 6:09 PM CDT Gender Identity Not on file Sexual Orientation Not on file documented as of this encounter Miscellaneous Notes * [employer]ner Conversion Note - Karthikeyan Thorne MD - 07/10/2019 4:26 PM EST UM Authorization Entered On: 07/10/2019 15:27 EST Performed On: 07/10/2019 15:26 EST by SHAAN RICHTER Rn-Utilization Review Primary Insurance Authorization Authorization and Policy Numbers : Insurance 1 Health Plan: [employer] Policy Number: [id number] Authorization Number: Insurance Primary Name : [facility] Authorization Status-Primary : Awaiting callback Reference Number-Primary : [id number] Authorized Service Begin Date-Primary : 07/05/2019 EDT Authorization Comments-Primary : Per DM, initial clinicals requested despite clinicals having been attached to auth on [facility] Portal. Clinicals faxed via [employer]. Historical Authorization Comments-Primary : Comment 1: [facility] auth still pending per website (FREDERIC PHAM RN-Utilization Review 07/10/2019 10:04) Comment 2: [facility] auth still pending per website (FREDERIC PHAM RN-Utilization Review 07/09/2019 09:54) Comment 3: [facility] auth still pending per website (FREDERIC PHAM RN-Utilization Review 07/08/2019 13:30) Comment 4: [facility] auth still pending per website (FREDERIC PHAM RN-Utilization Review 07/07/2019 13:48) Comment 5: Clinicals submitted via [facility] portal. (SHAAN RICHTER Rn-Utilization Review 07/06/2019 09:45) Comment 6: Reference number retrieved from [facility] portal. (SHAAN RICHTER Rn-Utilization Review 07/06/2019 09:37) SHAAN RICHTER Rn-Utilization Review - 07/10/2019 15:26 EST Electronically signed by Karthikeyan Bean Conversion Director [employer] Cerner at 01/24/2023 10:58 AM CDT documented in this encounter Plan of Treatment Upcoming Encounters Date Type Department Care Team (Late st Contact Info) Description 11/03/2025 12:45 PM EST Office Visit [facility] Pulmonology - [address] [place] [phone] Ben Barrios MD [address] [place] [address] documented as of this encounter Visit Diagnoses Not on filedocumented in this encounter Care Teams Leasing Professional Relationship Specialty Start Date End Date Amie Pena MD [address] [place] [address] PCP - General Family Medicine 10/31/22 04/08/23 Marvel Grayson MD [address] [place] [address] PCP - General Family Medicine 05/17/23 Marvel rGayson [facility] [place] [address] Family Practice 04/09/23 documented as of this encounter
--- OUTSIDE RECORDS SUMMARY | 2025-07-02 14:01 | XMS_ITS | Encounter Summary ---
Author Organization [employer] ([place], [place], [place], [place]) Address [address] [place] [address] Care Team Providers Care Industrial Relations Specialist Name Role Phone Amie Pena MD Primary Care Provider [phone] Marvel Grayson MD Primary Care Provider [phone] Encounter Details Date Type Department Care Team (Late st Contact Info) Description 07/07/2019 Transcribed Document [facility] [place] [address] [place] [address] ProviderMik MD [address] [place] [address] Social History Tobacco Use Types Packs/Day Years Used Date Smoking Tobacco: Never Assessed Comments Unknown Sex and Gender Information Value Date Recorded Sex Assigned at Not on file Legal Sex Female 6:09 PM CDT Gender Identity Not on file Sexual Orientation Not on file documented as of this encounter Miscellaneous Notes * [employer]ner Conversion Note - Mik ProviderMD - 07/07/2019 2:00 AM CEMENT LOADER Film Rental Clerk Details Entered On: 07/07/2019 0:54 EST Performed On: 07/07/2019 2:00 EST by Max Pereyra RN Order Details Transport Mode Order Detail : Wheelchair Isolation Precautions Order Detail : Contact precautions Order Detail : 0 IV Order Detail : 1 Oxygen Order Detail : 1 Nurse Collect Order Detail : 0 Lift/Transfer : Independent Central Line Order Detail : No Room Service : Appropriate Arterial Line : No Max Pereyra RN - 07/07/2019 0:54 EST Electronically signed by [facility], [facility] Conversion Director [employer] at 12/16/2022 10:36 AM CDT documented in this encounter Plan of Treatment Upcoming Encounters Date Type Department Care Team (Late st Contact Info) Description 11/03/2025 12:45 PM EST Office Visit [facility] Pulmonology - [address] [place] [phone] Ben Barrios MD [address] [place] [address] documented as of this encounter Visit Diagnoses Not on filedocumented in this encounter Care Teams Industrial Relations Specialist Relationship Specialty Start Date End Date Amie Pena MD [address] [place] [address] [place] [address] PCP - General Family Medicine 10/31/22 04/08/23 Marvel Grayson MD [address] [place] [address] [place] [address] PCP - General Family Medicine 05/17/23 Marvel Grayson [address] [place] [address] Family Practice 04/09/23 documented as of this encounter
--- OUTSIDE RECORDS SUMMARY | 2025-07-02 14:01 | XMS_ITS | Encounter Summary ---
Author Organization [employer] ([place], [place], [place], [place]) Address [address] [place] [address] Care Team Providers Care Swing Manager Name Role Phone Amie Pena MD Primary Care Provider [phone] Marvel Grayson MD Primary Care Provider [phone] Encounter Details Date Type Department Care Team (Late st Contact Info) Description 07/10/2019 Transcribed Document [facility] [place] [address] [place] [address] ProviderMik MD [address] [place] [address] Social History Tobacco Use Types Packs/Day Years Used Date Smoking Tobacco: Never Assessed Comments Unknown Sex and Gender Information Value Date Recorded Sex Assigned at Not on file Legal Sex Female 6:09 PM CDT Gender Identity Not on file Sexual Orientation Not on file documented as of this encounter Miscellaneous Notes * [employer]ner Conversion Note - Mik Thorne MD - 07/10/2019 10:04 AM PROVIDER NETWORK MANAGER UM Authorization Entered On: 07/10/2019 10:04 EST Performed On: 07/10/2019 10:04 EST by FREDERIC PHAM RN-Utilization Review Primary Insurance Authorization Authorization and Policy Numbers : Insurance 1 Health Plan: [employer] Policy Number: [id number] Authorization Number: Insurance Primary Name : [facility] Authorization Status-Primary : Awaiting callback Reference Number-Primary : [id number] Authorized Service Begin Date-Primary : 07/05/2019 EDT Authorization Comments-Primary : [facility] auth still pending per website Historical Authorization Comments-Primary : Comment 1: [facility] auth still pending per website (FREDERIC PHAM RN-Utilization Review 07/09/2019 09:54) Comment 2: [facility] auth still pending per website (FREDERIC PHAM RN-Utilization Review 07/08/2019 13:30) Comment 3: [facility] auth still pending per website (FREDERIC PHAM RN-Utilization Review 07/07/2019 13:48) Comment 4: Clinicals submitted via [facility] portal. (SHAAN RICHTER, Rn-Utilization Review 07/06/2019 09:45) Comment 5: Reference number retrieved from [facility] portal. (SHAAN RICHTER, Rn-Utilization Review 07/06/2019 09:37) FREDERIC PHAM RN-Utilization Review - 07/10/2019 10:04 EST Electronically signed by [facility], [facility] Conversion Last Picker Cerner at 12/16/2022 10:41 AM CDT documented in this encounter Plan of Treatment Upcoming Encounters Date Type Department Care Team (Late st Contact Info) Description 11/03/2025 12:45 PM EST Office Visit [facility] Pulmonology - [address] [place] [address] Ben Barrios MD [address] [place] [address] documented as of this encounter Visit Diagnoses Not on filedocumented in this encounter Care Teams Swing Manager Relationship Specialty Start Date End Date Amie Pena MD [facility] [place] [address] PCP - General Family Medicine 10/31/22 04/08/23 Marvel Grayson MD [facility] [place] [address] PCP - General Family Medicine 05/17/23 Marvel Grayson [address] [place] [address] Family Practice 04/09/23 documented as of this encounter
--- OUTSIDE RECORDS SUMMARY | 2025-07-02 14:01 | XMS_ITS | Encounter Summary ---
Author Organization [employer] ([place], [place], [place], [place]) Address [address] [place] [address] Care Team Providers Care Tariff Expert Name Role Phone Amie Pena MD Primary Care Provider [phone] Marvel Grayson MD Primary Care Provider [phone] Encounter Details Date Type Department Care Team (Late st Contact Info) Description 07/07/2019 Transcribed Document [facility] [place] [address] [place] [address] ProviderMik MD [address] [place] [address] Social History Tobacco Use Types Packs/Day Years Used Date Smoking Tobacco: Never Assessed Comments Unknown Sex and Gender Information Value Date Recorded Sex Assigned at Not on file Legal Sex Female 6:09 PM CDT Gender Identity Not on file Sexual Orientation Not on file documented as of this encounter Miscellaneous Notes * [employer]ner Conversion Note - Historical ProviderMD - 07/07/2019 3:13 PM DIRECTOR OF CORPORATE SPONSORSHIPS Nursing Discharge Summary Entered On: 07/07/2019 15:13 EST Performed On: 07/07/2019 15:13 EST by Vy Salazar wrinkle chaser Documentation Discharge Date/Time : 07/07/2019 13:47 EST Patient Disposition, General : Discharge Discharge To : Home with ambulatory/outpatient follow-up Mode Of Departure, General Discharge : Ambulatory Accompanied By, Discharge : Spouse IV Discontinued : Yes Personal Belongings With Patient : Yes Prescriptions Given to Patient : Yes Discharge Instructions Reviewed With, Opportunity For Questions Given : Patient Patient Education Completed : Yes Number of Prescriptions Given : 2 Teaching Method : Demonstration, Explanation, Printed materials Teaching Evaluation : Verbalizes understanding Vy Salazar RN - 07/07/2019 15:13 EST Electronically signed by [facility], [facility] Conversion Biological Sciences Instructor Cerner at 12/16/2022 10:50 AM CDT documented in this encounter Plan of Treatment Upcoming Encounters Date Type Department Care Team (Late st Contact Info) Description 11/03/2025 12:45 PM EST Office Visit [facility] Pulmonology - [address] [place] [phone] Ben Barrios MD [address] [place] [address] documented as of this encounter Visit Diagnoses Not on filedocumented in this encounter Care Teams Tariff Expert Relationship Specialty Start Date End Date Amie Pena MD [address] [place] [address] [place] [address] PCP - General Family Medicine 10/31/22 04/08/23 Marvel Grayson MD [address] [place] [address] [place] [address] PCP - General Family Medicine 05/17/23 Marvel Grayson [address] [place] [address] Family Practice 04/09/23 documented as of this encounter
--- OUTSIDE RECORDS SUMMARY | 2025-07-02 14:01 | XMS_ITS | Encounter Summary ---
Author Organization [employer] ([place], [place], [place], [place]) Address [address] [place] [address] Care Team Providers Care Manager Of Change Name Role Phone Amie Pena MD Primary Care Provider [phone] Marvel Grayson MD Primary Care Provider [phone] Encounter Details Date Type Department Care Team (Late st Contact Info) Description 07/07/2019 Transcribed Document [facility] [place] [address] [place] [address] ProviderMik MD [address] [place] [address] Social History Tobacco Use Types Packs/Day Years Used Date Smoking Tobacco: Never Assessed Comments Unknown Sex and Gender Information Value Date Recorded Sex Assigned at Not on file Legal Sex Female 6:09 PM CDT Gender Identity Not on file Sexual Orientation Not on file documented as of this encounter Miscellaneous Notes * [employer]ner Conversion Note - Mik Thorne MD - 07/07/2019 1:48 PM CHANGE OVER UM Authorization Entered On: 07/07/2019 13:48 EST Performed On: 07/07/2019 13:48 EST by FREDERIC PHAM RN-Utilization Review Primary Insurance Authorization Authorization and Policy Numbers : Insurance 1 Health Plan: [employer] Policy Number: [id number] Authorization Number: Insurance Primary Name : [facility] Authorization Status-Primary : Awaiting callback Reference Number-Primary : [id number] Authorized Service Begin Date-Primary : 07/05/2019 EDT Authorization Comments-Primary : [facility] auth still pending per website Historical Authorization Comments-Primary : Comment 1: Clinicals submitted via [facility] portal. (SHAAN RICHTER, Rn-Utilization Review 07/06/2019 09:45) Comment 2: Reference number retrieved from [facility] portal. (SHAAN RICHTER, Rn-Utilization Review 07/06/2019 09:37) FREDERIC PHAM RN-Utilization Review - 07/07/2019 13:48 EST Electronically signed by [place], [facility] Conversion Log Handling Equipment Operator Cerner at 12/16/2022 10:52 AM CDT documented in this encounter Plan of Treatment Upcoming Encounters Date Type Department Care Team ([facility] st Contact Info) Description 11/03/2025 12:45 PM EST Office Visit [facility] Pulmonology - [address] [place] [phone] Ben Barrios MD [address] [place] [address] documented as of this encounter Visit Diagnoses Not on filedocumented in this encounter Care Teams Manager Of Change Relationship Specialty Start Date End Date Amie Pena MD [address] [place] [address] [place] [address] PCP - General Family Medicine 10/31/22 04/08/23 Marvel Grayson MD [address] [place] [address] [place] [address] PCP - General Family Medicine 05/17/23 Marvel Grayson [address] [place], [place] [phone] Family Practice 04/09/23 documented as of this encounter
--- OUTSIDE RECORDS SUMMARY | 2025-07-02 14:01 | XMS_ITS | Encounter Summary ---
Author Organization [employer] ([place], [place], [place], [place]) Address [address] [place] [address] Care Team Providers Care Facility Manager Name Role Phone Amie Pena MD Primary Care Provider [phone] Marvel Grayson MD Primary Care Provider [phone] Encounter Details Date Type Department Care Team (Late st Contact Info) Description 10/29/2019 Transcribed Document [facility] [place] [address] [place] [address] ProviderMik MD [address] [place] [address] Social History Tobacco Use Types Packs/Day Years Used Date Smoking Tobacco: Never Assessed Comments Unknown Sex and Gender Information Value Date Recorded Sex Assigned at Not on file Legal Sex Female 6:09 PM CDT Gender Identity Not on file Sexual Orientation Not on file documented as of this encounter Miscellaneous Notes * Cerner Conversion Note - Historical ProviderMD - 10/29/2019 2:27 PM CHARGE LPN Patient: PRATIK SHABAZZ Age: 49 years Sex: Female : 1970 Associated Diagnoses: Chest pain Author: EARL STACK, PIPE FOREMAN-EMR Basic Information Time seen: Date & time 10/29/2019 14:24:00. History source: Patient. Arrival mode: Private vehicle. History limitation: None. Additional information: Chief Complaint from Nursing Triage Note : Chief Complaint 10/29/2019 14:15 EST Chief Complaint pt c/o left sided CP that goes to L shoulder , pt states its a constant dull pain. pt given 324mg ASA + 1 nitro en route . History of Present Illness The patient presents with chest pain and see note. 49 year old female with past medical hx of asthma, fibromyalgia, arthritis, and copd presents to ED c/o left sided cp radiating into left shouler and neck. Reports pain at first was sharp but now its like a dull ache. Denies soa or nausea. EMS gave aspirin 324 and 1 SL nitro. States is under a lot of stress. . Review of Systems Constitutional symptoms: No fever, no chills, no weakness. Skin symptoms: No rash, no breakdown, no lesion. Eye symptoms: no recent vision change, no discharge, no blurred vision. ENMT symptoms: No sore throat, no nasal congestion. Respiratory symptoms: No shortness of breath, no cough. Cardiovascular symptoms: Chest pain, no palpitations, no syncope, no diaphoresis, no peripheral edema. Gastrointestinal symptoms: No abdominal pain, no nausea, no vomiting, no diarrhea, no rectal bleeding. Genitourinary symptoms: No dysuria, Musculoskeletal symptoms: No back pain, no Muscle pain, no Joint pain. Neurologic symptoms: No headache, no dizziness, no altered level of consciousness, no numbness, no tingling, no weakness. Psychiatric symptoms: No anxiety, Endocrine symptoms: No polyuria, no polydipsia. Hematologic/Lymphatic symptoms: Bleeding tendency negative, bruising tendency negative. Allergy/immunologic symptoms: No seasonal allergies, Health Status Allergies: Allergic Reactions (Selected) Low Levaquin- No reactions were documented. Severity Not Documented Cymbalta- Suicidal. Doxycycline- Vomiting. Haldol- Hives. Penicillin- Headache. Ultram- Hives. Vraylar- Suicidal thoughts. Nonallergic Reactions (Selected) Severity Not Documented Codeine- Respiratory depression.. Medications: (Selected) Prescriptions Prescribed Atrovent 0.02% inhalation solution: 2.5 mL, Nebulized Inhalation, Q4H, 450 mL, 0 Refill(s) Dulera 100 mcg-5 mcg/inh inhalation aerosol: 2 Puff, Inhalation, RT_BID, for 21 Day(s), 13 Gram, 0 Refill(s) Medrol 4 mg oral tablet: 1 Packet, Oral, 1-Time, as directed on package labeling, 21 Tab, 0 Refill(s) azithromycin 250 mg oral tablet: 1 Tab, Oral, Daily, for 3 Day(s), 3 Tab, 0 Refill(s) Documented Medications Documented DuoNeb 0.5 mg-2.5 mg/3 mL inhalation solution: 3 mL, Nebulized Inhalation, RT_Q4H, 0 Refill(s) albuterol 2.5 mg/3 mL (0.083%) inhalation solution: 0 Refill(s) gabapentin 300 mg oral capsule: 1 Cap, BID, 0 Refill(s), per nurse's notes. Immunizations: Per nurse's notes. Menstrual history: Per nurse's notes. Past Medical/ Family/ Social History Medical history Reviewed as documented in chart. Surgical history: BTL / uterine ablation in the month of 02/2014 at 43 Years. D&C (sp Ab) in the month of 12/2013 at 43 Years. removal fatty tumor left upper back in 2010 at 40 Years. Removal of ovarian cyst ([id number]). I&D to left finger. Hysterectomy ([id number])., Reviewed as documented in chart. Family history: No family history items have been selected or recorded., Reviewed as documented in chart. Social history: Social & Psychosocial Habits Alcohol 04/11/2019 Alcohol Use History, Social Habits No Home/Environment 07/19/2016 Lives with: Significant other Nutrition/Health 02/13/2014 Caffeine intake amount: pot of coffee daily Substance Abuse 04/11/2019 Recreational Drug Use History No Tobacco 03/29/2015 Tobacco Use Within Last Twelve Months Cigarettes Smoking Status Current every day smoker Years of Tobacco Use 30 Packs/Tins Daily 1 , Reviewed as documented in chart. Problem list: Active Problems (13) Arthritis Asthma Back pain COPD (chronic obstructive pulmonary disease) COPD exacerbation Fibromyalgia H/O: hysterectomy heart burn Irritable bowel syndrome Migraine Peripheral neuropathy PTSD (post-traumatic stress disorder) Sciatica . Physical Examination Vital Signs Vital Signs/Vital Measures 10/29/2019 14:15 EST Systolic Blood Pressure 121 mmHg Diastolic Blood Pressure 78 mmHg Temperature Source Oral Temperature Mode Fahrenheit Temperature, Fahrenheit 97.7 Deg F Clinical Temperature, C 36.5 Deg C Peripheral Pulse Rate 90 bpm Respiratory Rate 18 Breaths/Min Oxygen Saturation 94 % Oxygen Therapy Mode Room air . Measurements 10/29/2019 14:15 EST Height Source Estimated Height Entry Format [place] Height/Length, CUBAN (ft) 5 ft Height/Length CUBAN 11 Inch CLINICALHEIGHT 180.34 cm [place] Body Weight 70.31 kg Weight Source, ED Critical estimated dosing weight Weight Entry Format [place] Weight Mexican lb 200 lb CLINICALWEIGHT 90.91 kg Body Surface Area (BSA) 2.11 m2 Body Mass Index 28 kg/m2 HI . Oxygen Saturation 10/29/2019 14:15 EST Oxygen Saturation 94 % . General: Alert, no acute distress. Skin: Warm, intact, no rash. Head: Normocephalic, atraumatic. Neck: Supple, trachea midline. Eye: Pupils are equal, round and reactive to light, vision unchanged. Ears, nose, mouth and throat: Oral mucosa moist, no pharyngeal erythema or exudate. Cardiovascular: Regular rate and rhythm, No murmur, Normal peripheral perfusion, No edema. Respiratory: Lungs are clear to auscultation, respirations are non-labored, breath sounds are equal, Symmetrical chest wall expansion. Chest wall: No deformity. Back: Normal range of motion, Normal alignment. Musculoskeletal: Normal ROM, no swelling, no deformity. Gastrointestinal: Soft, Nontender, Non distended, No organomegaly. Neurological: Alert and oriented to person, place, time, and situation, No focal neurological deficit observed, CN II-XII intact, normal motor observed, normal speech observed. Lymphatics Psychiatric: Cooperative, appropriate mood & affect, normal judgment. Medical Decision Making Differential Diagnosis: Unstable angina, angina, anxiety, pulmonary embolism, atypical chest pain, aortic dissection, pneumonia, gastroesophageal reflux disease, pleurisy. Documents reviewed: Emergency department nurses' notes. Orders Include Previous Orders (Selected) Inpatient Orders Ordered EKG: Cancelled (Canceled) MRI Spine Lumbar WO: MY Digital Screen BILAT: Completed .Automated Differential: CBC w/ Auto Diff: CMP Comprehensive Metabolic Panel: CR Chest 1 Vw Portable: Cardiac Monitoring: ED Adult Fall Risk Assessment: ED Adult Triage: ED C-SSRS: ED Clinical Reconciliation: ED real estate loan processor: PT/INR Prothrombin Time: Saline Lock Insert: Troponin I Ultra: Troponin I Ultra: . Electrocardiogram: Time 10/29/2019 14:18:00, rate 94, normal sinus rhythm, No ST changes. Results review: Lab results : Lab Results 10/29/2019 16:16 EST Troponin I Ultra <0.015 ng/mL 10/29/2019 14:27 EST Sodium Level 142 mmol/L Potassium Level 3.6 mmol/L Chloride Level 106 mmol/L Carbon Dioxide Level 26 mmol/L Anion Gap 14 Glucose Level 94 mg/dL Blood Urea Nitrogen 9 mg/dL Creatinine Level 0.75 mg/dL eGFR >60 mL/min/1.73m2 eGFR NonAfrican >60 mL/min/1.73m2 Bun/Creatinine 12.0 Calcium Level 9.0 mg/dL Protein Total 7.1 Gram/dL Albumin Level 3.7 Gram/dL Globulin 3.4 Gram/dL A/G Ratio 1.1 Bilirubin Total 0.2 mg/dL Alk Phos 87 Units/Liter AST 18 Units/Liter ALT 28 Units/Liter Troponin I Ultra <0.015 ng/mL WBC 9.7 K/uL RBC 4.48 Million/uL Hgb 13.3 Gram/dL Hct 41.0 % MCV 91.5 fL MCH 29.7 pg MCHC 32.4 Gram/dL Platelet Count 339 K/uL MPV 10.5 fL RDW 12.7 % Neut % 42.5 % Neut # 4.13 K/uL Lymph % 44.7 % Lymph # 4.34 K/uL HI [place] % 7.4 % [place] # 0.72 K/uL Eos % 4.3 % Eos # 0.42 K/uL Baso % 0.8 % Baso # 0.08 K/uL Slide Review No IG# 0 x10(3)/uL IG% 0 % PT 10.3 Second(s) INR 1.0 . Radiology results: Radiology Results (Last 48 hours) [id number] -- 10/29/2019 14:14 CR Chest 1 Vw Portable (10/29/2019 15:00) Result: PORTABLE CHEST 10/29/2019 1:22 PMHISTORY: Left-sided chest painCOMPARISON: July 05, 2019FINDINGS: The cardiac silhouette is normal in size. There is ectasiaof the aorta. The lungs are well expanded. There is no pneumothorax.There is no effusion, edema, or infiltrate. The visualized osseousstructures demonstrate no acute abnormalities.IMPRESSION: No acute cardiopulmonary process. Images reviewed, interpreted, and dictated by Dr. Franklin Palafox.Transcribed by Divina Gonzalez (R).I have personally viewed, interpreted and dictated the examination. Ihave read and agree with the above final transcribed report. . Notes: Wells Criteria for Pulmonary Embolism Clinical signs & Symptoms of DVT? Yes+3 PE is #1 Diagnosis, or Equally Likely Yes+3 Heart Rate ?100? Yes+1.5 Immobilization at least 3 days, or Surgery in the previous 4 weeks Yes+1.5 Previous, Objectively diagnosed PE or DVT? Yes +1.5 Hemoptysis? Yes +1 Malignancy w/Treatment within 6 mo, or Palliative? Yes +1 Total Score 0 0-1.5 Low Risk Group: 1.3% chance of PE in ED population. Another study assigned scores ?4 as 'PE Unlikely' and had a 3% incidence of PE. 2-6 Moderate risk group: 16.2% chance of PE in an ED population. Another study assigned scores >4 as 'PE Likely' and had a 28% incidence of PE. 6.5-12 High risk group: 40.6% chance of PE in an ED population. Another study assigned scores >4 as 'PE Likely' and had a 28% incidence of PE. . Reexamination/ Reevaluation Time: 10/29/2019 17:37:00 . Course: resolved. Procedure Heart Score Heart History: Slightly suspicious: Yes 0. EKG: Normal: Yes 0. Age: 45 - 65: Yes +1. Risk Factors: Risk Factors include: Cigarette smoking, 1 - 2 risk factors: Yes +1. Troponin: Less than or equal to normal limit: Yes 0. Scorin to 3: 1.6% risk of MACE. Impression and Plan Diagnosis Chest pain - Discharge, Emergency medicine, Medical Plan Condition: Stable. Disposition: Medically cleared, Discharged Admit/Transfer/Discharge: Discharge (Order): Start: 10/29/2019 17:38 EST, Discharge to: Home. Patient was given the following educational materials: Nonspecific Chest Pain. Follow up with: [facility] As needed Patient stated she was not wanting to be scheduled today with a primary care physician. Patient was provided with printed information on Dr. Candy Swanson and Dr. Tato Hayden as well as a [facility] business card to reach out to us if assistance is needed. Feel free to contact us with any other physician scheduling needs at [phone]. Rest, fluids, follow up with pcp in 1-2 days for recheck. Return to ER as needed. . Counseled: Patient, Regarding diagnosis, Regarding diagnostic results, Regarding treatment plan, Regarding prescription, Patient indicated understanding of instructions. Electronically signed by Geneva, Karthikeyan Conversion Inner Tube Tuber Machine Operator Cerner at 12/16/2022 10:46 AM CDT documented in this encounter Plan of Treatment Upcoming Encounters Date Type Department Care Team (Late st Contact Info) Description 11/03/2025 12:45 PM EST Office Visit [facility] Pulmonology - [address] [place] [id number] Ben Barrios MD [address] [place] [address] documented as of this encounter Visit Diagnoses Not on filedocumented in this encounter Care Teams Facility Manager Relationship Specialty Start Date End Date Amie Pena MD [address] [place] [address] [place] [address] PCP - General Family Medicine 10/31/22 04/08/23 Marvel Grayson MD [address] [place] [address] [place] [address] PCP - General Family Medicine 05/17/23 Marvel Grayson [address] [place] [address] Family Practice 04/09/23 documented as of this encounter
--- OUTSIDE RECORDS SUMMARY | 2025-07-02 14:01 | XMS_ITS | Encounter Summary ---
Author Organization [employer] ([place], [place], [place], [place]) Address [address] [place] [address] Care Team Providers Care Senior Qa Analyst Name Role Phone Amie Pena MD Primary Care Provider [phone] Marvel Grayson MD Primary Care Provider [phone] Encounter Details Date Type Department Care Team (Late st Contact Info) Description 07/13/2019 Transcribed Document [facility] [place] [address] [place] [address] ProviderMik MD [address] [place] [address] Social History Tobacco Use Types Packs/Day Years Used Date Smoking Tobacco: Never Assessed Comments Unknown Sex and Gender Information Value Date Recorded Sex Assigned at Not on file Legal Sex Female 6:09 PM CDT Gender Identity Not on file Sexual Orientation Not on file documented as of this encounter Miscellaneous Notes * Cerner Conversion Note - Mik Thorne MD - 07/13/2019 8:55 AM PHOTO MANAGER Patient: PRATIK SHABAZZ Age: 48 years Sex: Female : 1970 Associated Diagnoses: None Author: YURIY CASEY MD Admit Date 07/05/2019 21:24 Discharge Date 07/07/2019 14:44 Discharge Diagnosis COPD exacerbation 07/07/2019 J44.1 ICD-10-CM Acute hypoxic respiratory failure Likely secondary to known pneumonia and COPD exacerbation Chest x-ray noted Cough, shortness of breath, fever, leukocytosis Breathing treatment IV steroid IV antibiotic Sputum culture Community acquired pneumonia Productive cough, shortness of breath, fever, leukocytosis Respiratory PCR Sputum culture Blood culture Continue IV Levaquin Acute COPD exacerbation Respiratory PCR IV steroid Breathing treatment IV antibiotic Fibromyalgia Continue home medication Discharge Medications (7) Active albuterol 2.5 mg/3 mL (0.083%) inhalation solution Atrovent 0.02% inhalation solution 2.5 mL, Nebulized Inhalation, Q4H azithromycin 250 mg oral tablet 250 mg = 1 Tab, Oral, Daily Dulera 100 mcg-5 mcg/inh inhalation aerosol 2 Puff, Inhalation, RT_BID DuoNeb 0.5 mg-2.5 mg/3 mL inhalation solution 3 mL, Nebulized Inhalation, RT_Q4H gabapentin 300 mg oral capsule 300 mg = 1 Cap, BID Medrol 4 mg oral tablet 1 Packet, Oral, 1-Time Discharge Follow Up Follow up with primary care provider - Within 1 to 2 weeks TAMARA VICTORIA - 07/16/2019 15:00 Hospital Course Ms. Carmen, 48 years old female with past medical history of COPD and fibromyalgia who was transferred from [facility] ER because of pneumonia. Patient states that since she started to have productive cough with thick meza sputum associated with worsening shortness of breath and fever of 103. Also patient was complaining of left pleuritic chest pain. Also she was complaining of hypoxia at home and her oxygen saturation was 80. 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 Patient was in the hospital in April because of back surgery. No recent antibiotic. At [facility], she was tachycardic and sats 88 and 2 L of oxygen which is improved to 92 on 3 L of oxygen. Labs showed a leukocytosis of 14.8. Chest x-ray showed pneumonia. Patient received IV steroids and Levaquin.Patient improved clinially on steroid, dulera, duoneb and antibiotics. Supportive care was provided. she improved gradually to a point where it was felt that she has gained maximum benefit from hospital stay. discharged robert on steroid, antibiotics. she has nebulizer at home and will continue breathing treatment at home for 3 days. Follow up with PCP in 1 week to monitor progress. POC discussed with patient she verbalized understanding and agreed to it. discharged in stable confition back to home. ACC: [id number] ORDER: Culture MRSA Surveillance DATE: 07/06/2019 01:56 SOURCE: Nasal SITE: Reports Final 07/07/2019 11:36 No MRSA isolated For Infection Control surveillance only. == Condition on Discharge Vitals Signs (last 24 hrs) Last Charted Minimum Maximum Temp 97.7 (JUL 06 10:36) 97.7 (JUL 06 10:36) 98.3 (JUL 05 21:35) Mon HR 84 (JUL 06 11:46) 78 (JUL 06 04:06) 97 (JUL 05 21:35) Resp Rate 18 (JUL 06 11:46) 16 (JUL 06 01:09) 20 (JUL 05 21:35) SBP 103 (JUL 06 10:36) 103 (JUL 06 10:36) 112 (JUL 05 21:35) DBP L 57 (JUL 06 10:36) L 57 (JUL 06 10:36) 70 (JUL 05 21:35) MAP 70 (JUL 06 10:36) 70 (JUL 06 10:36) 80 (JUL 05 21:35) SpO2 96 (JUL 06 11:46) L 93 (JUL 06 05:28) 97 (JUL 05 23:36) General: Alert and oriented, No acute distress. Eye: Extraocular movements are intact, Normal conjunctiva. HENT: Normocephalic, Oral mucosa is moist. Neck: Supple, Non-tender, No jugular venous distention. Respiratory: wheezing improved Cardiovascular: Normal rate, Regular rhythm, No murmur, Normal peripheral perfusion, No edema. Gastrointestinal: Soft, Non-tender, Normal bowel sounds. Genitourinary: No costovertebral angle tenderness. Musculoskeletal: Normal range of motion. Integumentary: Intact. Neurologic: Alert, Oriented, No focal deficits. Psychiatric: Cooperative, Appropriate mood & affect. PT/OT Recommended Discharge Location Home independently (07/07/2019) time spent 35 min documented in this encounter Plan of Treatment Upcoming Encounters Date Type Department Care Team (Late st Contact Info) Description 11/03/2025 12:45 PM EST Office Visit [facility] Pulmonology - [address] [place] [phone] Ben Barrios MD [address] [place] [address] documented as of this encounter Visit Diagnoses Not on filedocumented in this encounter Care Teams Senior Qa Analyst Relationship Specialty Start Date End Date Amie Pena MD [address] [place] [address] [place] [address] PCP - General Family Medicine 10/31/22 04/08/23 Marvel Grayson MD [address] [place] [address] [place] [address] PCP - General Family Medicine 05/17/23 Marvel Grayson [address] [place] [address] Family Practice 04/09/23 documented as of this encounter
--- OUTSIDE RECORDS SUMMARY | 2025-07-02 14:01 | XMS_ITS | Encounter Summary ---
Author Organization [employer] ([place], [place], [place], [place]) Address [address] [place] [address] Care Team Providers Care Technical Support Internship Name Role Phone Amie Pena MD Primary Care Provider [phone] Marvel Grayson MD Primary Care Provider [phone] Encounter Details Date Type Department Care Team (Late st Contact Info) Description 07/07/2019 Transcribed Document [facility] [place] [address] [place] [address] ProviderMik MD [address] [place] [address] Social History Tobacco Use Types Packs/Day Years Used Date Smoking Tobacco: Never Assessed Comments Unknown Sex and Gender Information Value Date Recorded Sex Assigned at Not on file Legal Sex Female 6:09 PM CDT Gender Identity Not on file Sexual Orientation Not on file documented as of this encounter Miscellaneous Notes * Cerner Conversion Note - Historical ProviderMD - 07/07/2019 12:52 PM KENO TERMINAL OPERATOR Stroke/Warfarin Instructions Entered On: 07/07/2019 12:52 EST Performed On: 07/07/2019 12:52 EST by Vy Salazar RN Stroke/Warfarin Instructions Stroke/TIA Discharge Ins : N/A Warfarin Discharge Ins : N/A Vy Salazar RN - 07/07/2019 12:52 EST documented in this encounter Plan of Treatment Upcoming Encounters Date Type Department Care Team (Late st Contact Info) Description 11/03/2025 12:45 PM EST Office Visit [facility] Pulmonology - [address] [place] [address] Ben Barrios MD [address] [place] [address] documented as of this encounter Visit Diagnoses Not on filedocumented in this encounter Care Teams Technical Support Internship Relationship Specialty Start Date End Date Amie Pena MD [facility] [address] [place] [address] PCP - General Family Medicine 10/31/22 04/08/23 Marvel Grayson MD [address] [place] [address] PCP - General Family Medicine 05/17/23 Marvel Grayson [address] [place] [address] Family Practice 04/09/23 documented as of this encounter
--- OUTSIDE RECORDS SUMMARY | 2025-07-02 14:01 | XMS_ITS | Encounter Summary ---
Author Organization [employer] ([place], [place], [place], [place]) Address [address] [place] [address] Care Team Providers Care Bench Worker Name Role Phone Amie Pena MD Primary Care Provider [phone] Marvel Grayson MD Primary Care Provider [phone] Encounter Details Date Type Department Care Team (Late st Contact Info) Description 07/07/[address] [facility] [place] Family Medicine [address] [place] [address] ProviderMik MD [address] [place] [address] Social History Tobacco Use Types Packs/Day Years Used Date Smoking Tobacco: Never Assessed Comments Unknown Sex and Gender Information Value Date Recorded Sex Assigned at Not on file Legal Sex Female 6:09 PM CDT Gender Identity Not on file Sexual Orientation Not on file documented as of this encounter Miscellaneous Notes * Cerner Conversion Note - Mik ProviderMD - 07/07/2019 12:30 PM NEON SIGN SERVICER Care Management Assessment/Plan Entered On: 07/07/2019 12:31 EST Performed On: 07/07/2019 12:30 EST by Ana Duran Scheduler Care Management Note Documentation Status Complete : Yes Ana Duran Scheduler - 07/07/2019 12:30 EST Patient History Emergency Contact #1 : rommel Harika Emergency Contact #1 Phone Number : [phone] Emergency Contact #1 Relationship : Emergency Contact #2 : Rebeca Emergency Contact #2 Phone Number : [phone] Emergency Contact #2 Relationship : sister Living Situation : Home Patient Lives With : Sibling(s), Spouse Mobility Assistance Prior to Admission : Independent Professional Skilled Services : None Current Home Treatments : Nebulizer treatments Home Equipment : None 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 Took appt reminder and scruff worker pw to pt's room. Put appt info in discharge summary Follow-up Appointment Date #1 : 07/16/2019 14:00 EST Ana Duran, Plastics Nurse - 07/07/2019 12:30 EST Electronically signed by Geneva [facility] Conversion Joint Cutter Machine Cerner at 12/16/2022 10:37 AM CDT documented in this encounter Plan of Treatment Upcoming Encounters Date Type Department Care Team (Late st Contact Info) Description 11/03/2025 12:45 PM EST Office Visit [facility] Pulmonology - [address] [place] [address] Ben Barrios MD [address] [place] [address] documented as of this encounter Visit Diagnoses Not on filedocumented in this encounter Care Teams Bench Worker Relationship Specialty Start Date End Date Amie Pena MD [facility] [place] [address] PCP - General Family Medicine 10/31/22 04/08/23 Marvel Grayson MD [address] [place] [address] PCP - General Family Medicine 05/17/23 Marvel Grayson [address] [place] [address] Family Practice 04/09/23 documented as of this encounter
--- OUTSIDE RECORDS SUMMARY | 2025-07-02 14:01 | XMS_ITS | Encounter Summary ---
Author Organization [employer] ([place], [place], [place], [place]) Address [address] [place] [address] Care Team Providers Care Press Tender Smoke Signal Name Role Phone Amie Pena MD Primary Care Provider [phone] Marvel Grayson MD Primary Care Provider [phone] Encounter Details Date Type Department Care Team (Late st Contact Info) Description 07/05/2019 Transcribed Document [facility] Family Medicine [address] [place] [address] ProviderMik MD [address] [place] [address] Social History Tobacco Use Types Packs/Day Years Used Date Smoking Tobacco: Never Assessed Comments Unknown Sex and Gender Information Value Date Recorded Sex Assigned at Not on file Legal Sex Female 6:09 PM CDT Gender Identity Not on file Sexual Orientation Not on file documented as of this encounter Miscellaneous Notes * Cerner Conversion Note - Mik Thorne MD - 07/05/2019 8:58 PM CDT ED Discharge Entered On: 07/05/2019 21:02 EDT Performed On: 07/05/2019 20:58 EDT by Marisol Panchal aquatics group fitness instructor Process Patient Disposition : Admit/Observe, Transfer Personal Belongings With Patient : Yes IV Discontinued : No Nursing Documentation Completed : Yes Marisol Panchal RN - 07/05/2019 20:58 EDT ED Discharge Discharge To : Acute care facility Name of Receiving Facility/Provider : [facility] [place] Of Departure : Ambulance/ALS Accompanied By : php website developer, Spouse Prescriptions Given to Patient : No Marisol Panchal RN - 07/05/2019 20:58 EDT Admission, ED Nurse Report Accepted By : Max Pereyra RN/ given by Leah Valentine RN Nurse Report Acceptance Time : 07/05/2019 19:48 EDT `Nurse Report (Hand Off) : Called Accompanied By, Discharge : php website developer Mode Of Departure : Ambulance/ALS Marisol Panchal RN - 07/05/2019 20:58 EDT documented in this encounter Plan of Treatment Upcoming Encounters Date Type Department Care Team (Late st Contact Info) Description 11/03/2025 12:45 PM EST Office Visit [facility] Pulmonology - [address] [place] [id number] Ben Barrios MD [address] [place] [address] documented as of this encounter Visit Diagnoses Not on filedocumented in this encounter Care Teams Press Tender Smoke Signal Relationship Specialty Start Date End Date Amie Pena MD [address] [place] [address] [place] [address] PCP - General Family Medicine 10/31/22 04/08/23 Marvel Grayson MD [address] [place] [address] [place] [address] PCP - General Family Medicine 05/17/23 Marvel Grayson [address] [place] [address] Family Practice 04/09/23 documented as of this encounter
--- OUTSIDE RECORDS SUMMARY | 2025-07-02 14:01 | XMS_ITS | Encounter Summary ---
Author Organization [employer] ([place], [place], [place], [place]) Address [address] [place] [address] Care Team Providers Care Train Conductor Name Role Phone Amie Pena MD Primary Care Provider [phone] Marvel Grayson MD Primary Care Provider [phone] Encounter Details Date Type Department Care Team (Late st Contact Info) Description 09/25/2018 Transcribed Document [facility] Radiology [address] [place] [address] Christina Carmen MD [facility] Dept of [place] [address] Social History Tobacco Use Types Packs/Day Years Used Date Smoking Tobacco: Never Assessed Comments Unknown Sex and Gender Information Value Date Recorded Sex Assigned at Not on file Legal Sex Female 6:09 PM CDT Gender Identity Not on file Sexual Orientation Not on file documented as of this encounter Miscellaneous Notes * Cerner Conversion Note - Christina Carmen MD - 09/25/2018 6:22 PM EST Patient: TIFFANIE SHABAZZ Age: 47 years Sex: Female : 1970 Associated Diagnoses: Acute bacterial tonsillitis Author: PAMELA IRELAND PA Basic Information Additional information: Chief Complaint from Nursing Triage Note : Chief Complaint 09/25/2018 16:55 EST Chief Complaint sorethoat, no fever, nausea. . History of Present Illness 47 yo WF with COPD stage III, on PRN home oxygent presents to ED c/o sudden onset sore throat, swollen tonsils. Pt has an occasional dry cough, denies runny nose; c/o ear pain. Denies fever. VS stable, pt states she has slightly lower RA sats at baseline; states she is compliant with her pulmonary medication; denies recent antibiotics. Review of Systems Constitutional symptoms: Negative except as documented in HPI. Skin symptoms: Negative except as documented in HPI. Eye symptoms: Negative except as documented in HPI. ENMT symptoms: Negative except as documented in HPI. Respiratory symptoms: Negative except as documented in HPI. Cardiovascular symptoms: Negative except as documented in HPI. Gastrointestinal symptoms: Negative except as documented in HPI. Genitourinary symptoms Musculoskeletal symptoms: Negative except as documented in HPI. Neurologic symptoms: Negative except as documented in HPI. Psychiatric symptoms: Negative except as documented in HPI. Health Status Allergies: Allergic Reactions (Selected) Severity Not Documented Cymbalta- Suicidal. Doxycycline- No reactions were documented. Haldol- Hives. Penicillin- No reactions were documented. Ultram- No reactions were documented. Vraylar- No reactions were documented. Nonallergic Reactions (Selected) Severity Not Documented Codeine- Respiratory depression.. Medications: (Selected) Documented Medications Documented Breo Ellipta: Inhalation, Daily, 0 Refill(s) Claritin: Daily, 0 Refill(s) PriLOSEC: 20 mg, Oral, Daily, 0 Refill(s) Spiriva: mcg, Inhalation, Daily, 0 Refill(s). Past Medical/ Family/ Social History Surgical history: BTL / uterine ablation in the month of 02/2014 at 43 Years. D&C (sp Ab) in the month of 12/2013 at 43 Years. removal fatty tumor left upper back in 2010 at 40 Years. Removal of ovarian cyst (SNOMED CT [id number]). I&D to left finger.. Family history: No family history items have been selected or recorded.. Social history: Social & Psychosocial Habits Alcohol 11/28/2013 Alcohol Use in Last Twelve Months No 09/17/2014 Alcohol Use History, Social Habits Yes Alcohol Use Comment states very rarely Home/Environment 07/19/2016 Lives with: Significant other Nutrition/Health 02/13/2014 Caffeine intake amount: pot of coffee daily Substance Abuse 11/28/2013 Recreational Drug Use History No Tobacco 03/29/2015 Tobacco Use Within Last Twelve Months Cigarettes Smoking Status Current every day smoker Years of Tobacco Use 30 Packs/Tins Daily 1 09/25/2018 Smoking Status 10 or more cigarettes (1/ . Problem list: Active Problems (8) Arthritis Asthma Back pain Fibromyalgia H/O: hysterectomy heart burn PTSD (post-traumatic stress disorder) Sciatica . Physical Examination Vital Signs Vital Signs/Vital Measures 09/25/2018 16:55 EST Temperature Source Oral Temperature Mode Fahrenheit Temperature, Fahrenheit 98 Deg F Clinical Temperature, C 36.7 Deg C Peripheral Pulse Rate 103 bpm HI Respiratory Rate 14 Breaths/Min Systolic Blood Pressure 122 mmHg Diastolic Blood Pressure 80 mmHg Oxygen Saturation 94 % Oxygen Therapy Mode Room air . Measurements 09/25/2018 16:55 EST Height Source Stated Height Entry Format Dundy Height/Length, LITHUANIAN (ft) 5 ft Height/Length LITHUANIAN 1 Inch CLINICALHEIGHT 154.94 cm [place] Body Weight 47.45 kg Weight Source, ED Critical estimated dosing weight Weight Entry Format Dundy Weight Mauritian lb 205 lb CLINICALWEIGHT 93.18 kg Body Surface Area (BSA) 1.91 m2 Body Mass Index 38.8 kg/m2 HI . Oxygen Saturation 09/25/2018 16:55 EST Oxygen Saturation 94 % . General: Alert, no acute distress. Skin: Warm, dry, pink. Head: Normocephalic, atraumatic. Eye: Pupils are equal, round and reactive to light, extraocular movements are intact. Ears, nose, mouth and throat: Oral mucosa moist, Tympanic membrane: Right, dullness. Cardiovascular: Regular rate and rhythm. Respiratory: Breath sounds are equal, Breath sounds: Bilateral, diminished, Retractions: None. Gastrointestinal: Soft, Nontender, Non distended, Normal bowel sounds. Back: Nontender, Normal range of motion. Musculoskeletal: Normal ROM, normal strength. Neurological: Alert and oriented to person, place, time, and situation, No focal neurological deficit observed, CN II-XII intact. Psychiatric: Cooperative, appropriate mood & affect. Medical Decision Making Differential Diagnosis: Viral pharyngitis, streptococcal pharyngitis, exudative pharyngitis, viral syndrome. Documents reviewed: Emergency department nurses' notes, emergency department records. Orders Include Previous Orders (Selected) Inpatient Orders Ordered Discharge: Ordered (In Transit) .Strep A Confirmation: Cancelled (Canceled) MY Digital Screen BILAT: Completed ED Adult Fall Risk Assessment: ED Adult Triage: ED Clinical Reconciliation: ED wood flour miller: Rapid Strep Screen: Prescriptions Prescribed azithromycin 500 mg oral tablet: 2 Tab, Oral, Daily, for 5 Day(s), 10 Tab, 0 Refill(s). Results review: Lab results : Lab Results 09/25/2018 17:06 EST Rapid Strep Test See Result . Impression and Plan Diagnosis Acute bacterial tonsillitis - Discharge, Medical Plan Condition: Stable. Disposition: Discharged Admit/Transfer/Discharge: Discharge (Order): Start: 09/25/2018 17:23 EST, Discharge to: Home. Prescriptions: Prescription [facility]: azithromycin 500 mg oral tablet (Prescribe): 2 Tab, Oral, Daily, for 5 Day(s), 10 Tab, 0 Refill(s), Prescription [facility]: azithromycin 500 mg oral tablet (Prescribe): 1 Tab, Oral, Daily, for 5 Day(s), 5 Tab, 0 Refill(s) azithromycin 500 mg oral tablet (Discontinue): 2 Tab, Oral, Daily, for 5 Day(s), 10 Tab, 0 Refill(s). Patient was given the following educational materials: Tonsillitis, Tonsillitis. Follow up with: [facility] Within 2 to 3 days. Counseled: Patient, Family, Regarding diagnosis, Regarding diagnostic results, Regarding treatment plan, Regarding prescription, Patient indicated understanding of instructions. documented in this encounter Plan of Treatment Upcoming Encounters Date Type Department Care Team (Late st Contact Info) Description 11/03/2025 12:45 PM EST Office Visit [facility] Pulmonology - [address] [place] [address] Ben Barrios MD [address] [place] [address] documented as of this encounter Visit Diagnoses Not on filedocumented in this encounter Care Teams Train Conductor Relationship Specialty Start Date End Date Amie Pena MD [address] [place] [address] PCP - General Family Medicine 10/31/22 04/08/23 Marvel Grayson MD [address] [place] [address] PCP - General Family Medicine 05/17/23 Marvel Grayson [address] [place] [address] Family Practice 04/09/23 documented as of this encounter
--- OUTSIDE RECORDS SUMMARY | 2025-07-02 14:01 | XMS_ITS | Encounter Summary ---
Author Organization [employer] ([place], [place], [place], [place]) Address [address] [place] [address] Care Team Providers Care Media/Instructional Designer Name Role Phone Amie Pena MD Primary Care Provider [phone] Marvel Grayson MD Primary Care Provider [phone] Encounter Details Date Type Department Care Team (Late st Contact Info) Description 07/07/2019 Transcribed Document [facility] [place] [address] [place] [address] ProviderMik MD [address] [place] [address] Social History Tobacco Use Types Packs/Day Years Used Date Smoking Tobacco: Never Assessed Comments Unknown Sex and Gender Information Value Date Recorded Sex Assigned at Not on file Legal Sex Female 6:09 PM CDT Gender Identity Not on file Sexual Orientation Not on file documented as of this encounter Miscellaneous Notes * Cerner Conversion Note - Historical ProviderMD - 07/07/2019 3:47 PM RN DIABETES Discharge Summary, PT Entered On: 07/07/2019 15:48 EST Performed On: 07/07/2019 15:47 EST by IKE ARIAS PTA Discharge Summary Discharge Summary Provider Notified : Nursing, Referring provider Reason for Discharge : Discharged from hospital Discharged to, Therapy : Other: Home IKE ARIAS PTA - 07/07/2019 15:47 EST Discharge Summary Comment, PT : At time of discharge, patient was Modified Independent with supine<=>sit and Independent with sit<=>stand transfers. She ambulated ~295' with pushing her own IV pole with CGA/SBA and O2 follow. She met 0/2 acute care PT goals and discharged the day after PT eval to home. I have reviewed this discharge summary and I concur. Tahira Andres, PT TAHIRA ANDRES, PT - 07/07/2019 15:49 EST Snf Goals Other PT LTG Grid Goal #1 Goal #2 Other : Pt to ambulate 200 feet with O2 sats remaining above 92%, and SBA, to allow for home access upon her d/c. Pt to ambulate 200 feet without AD support (including IV pole) with SBA to assist with home access upon d/c. Date to Meet : 07/13/2019 EST 07/13/2019 EST Goal Status : Not met Not met IKE ARIAS, STRAW HAT MACHINE OPERATOR - 07/07/2019 15:47 EST IKE ARIAS STRAW HAT MACHINE OPERATOR - 07/07/2019 15:47 EST Electronically signed by [place] [facility] Conversion Goat Farmer Cerner at 12/16/2022 10:41 AM CDT documented in this encounter Plan of Treatment Upcoming Encounters Date Type Department Care Team (Late st Contact Info) Description 11/03/2025 12:45 PM EST Office Visit [facility] Pulmonology - [address] [place] [address] Ben Barrios MD [address] [place] [address] documented as of this encounter Visit Diagnoses Not on filedocumented in this encounter Care Teams Media/Instructional Designer Relationship Specialty Start Date End Date Amie Pena MD [facility] [place] [address] PCP - General Family Medicine 10/31/22 04/08/23 Marvel Grayson MD [address] [place] [address] PCP - General Family Medicine 05/17/23 Marvel Grayson [address] , [place] [address] Family Practice 04/09/23 documented as of this encounter
--- OUTSIDE RECORDS SUMMARY | 2025-07-02 14:01 | XMS_ITS | Encounter Summary ---
Author Organization [employer] ([place], [place], [place], [place]) Address [address] [place] [address] Care Team Providers Care Senior Statistician Name Role Phone Amie Pena MD Primary Care Provider [phone] Marvel Grayson MD Primary Care Provider [phone] Encounter Details Date Type Department Care Team (Late st Contact Info) Description 07/07/2019 Transcribed Document [facility] Family Medicine [address] [place] [address] ProviderMik MD [address] [place] [address] Social History Tobacco Use Types Packs/Day Years Used Date Smoking Tobacco: Never Assessed Comments Unknown Sex and Gender Information Value Date Recorded Sex Assigned at Not on file Legal Sex Female 6:09 PM CDT Gender Identity Not on file Sexual Orientation Not on file documented as of this encounter Miscellaneous Notes * Cerner Conversion Note - Historical ProviderMD - 07/07/2019 11:16 AM DEHYDROGENATION OPERATOR Initial Discharge Planning Entered On: 07/07/2019 11:21 EST Performed On: 07/07/2019 11:16 EST by Desiree Bennett, Licensed Audiologist-Pediatric Sports Medicine Specialist Initial Assessment I Previously Documented Living Environment : No qualifying data available. Living Situation : Home Patient Lives With : Sibling(s), Spouse Is the Patient a Caregiver at Home? 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 : Yes Does Patient have PCP Listed? : No Legal Guardian : No Desiree Bennett Social Worker-Pediatric Sports Medicine Specialist - 07/07/2019 11:16 EST Initial Assessment II Sensory and Motor Deficits : None Current Home Treatments and Equipment : Cane, Nebulizer, Oxygen therapy Services and Community Resources Addl Comments : [facility] [phone] Desiree Bennett Social Worker-[facility] - 07/07/2019 11:16 EST Discharge Needs I Anticipated Discharge To, CM : Home independently Current Home Treatment/Equipment : Current Home Treatment/Equipment No qualifying data available. Post Acute/Home Treatments : None Documentation Status Complete : Yes Desiree Bennett Social Worker-Pediatric Sports Medicine Specialist - 07/07/2019 11:16 EST Discharge Needs II Professional Skilled Services : Professional Skilled Services No qualifying data available. Needs Assistance with Transportation : No Desiree Bennett Social Worker-Pediatric Sports Medicine Specialist - 07/07/2019 11:16 EST Narrative Note Narrative Note : 07/07 Met with pt at the bedside. Pt reports she resides with her and sister. 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 Pt confirms she has home oxygen with portables provided by [facility]. Pt reports she plans to return home at discharge. Pt was agreeable to [facility] referral for assistance with obtaining PCP. Contacted [facility] and made referral. Desiree Bennett Social Worker-[facility] - 07/07/2019 11:16 EST Electronically signed by Karthikeyan Bean Conversion Semiautomatic Taper Operator Cerner at 12/16/2022 10:44 AM CDT documented in this encounter Plan of Treatment Upcoming Encounters Date Type Department Care Team (Late st Contact Info) Description 11/03/2025 12:45 PM EST Office Visit [facility] Pulmonology - [address] [place] [address] Ben Barrios MD [address] [place] [address] documented as of this encounter Visit Diagnoses Not on filedocumented in this encounter Care Teams Senior Statistician Relationship Specialty Start Date End Date Amie Pena MD [address] [place] [address] [place] [address] PCP - General Family Medicine 10/31/22 04/08/23 Marvel Grayson MD [address] [place] [address] PCP - General Family Medicine 05/17/23 Marvel Grayson [address] [place] [address] Family Practice 04/09/23 documented as of this encounter
--- OUTSIDE RECORDS SUMMARY | 2025-07-02 14:01 | XMS_ITS | Encounter Summary ---
Author Organization [employer] ([place], [place], [place], [place]) Address [address] [place] [address] Care Team Providers Care Munitions Worker Name Role Phone Amie Pena MD Primary Care Provider [phone] Marvel Grayson MD Primary Care Provider [phone] Encounter Details Date Type Department Care Team (Late st Contact Info) Description 07/09/2019 Transcribed Document [facility] [place] [address] [place] [address] ProviderMik MD [address] [place] [address] Social History Tobacco Use Types Packs/Day Years Used Date Smoking Tobacco: Never Assessed Comments Unknown Sex and Gender Information Value Date Recorded Sex Assigned at Not on file Legal Sex Female 6:09 PM CDT Gender Identity Not on file Sexual Orientation Not on file documented as of this encounter Miscellaneous Notes * Cerner Conversion Note - Mik Thorne MD - 07/09/2019 9:54 AM EDUCATIONAL AID UM Authorization Entered On: 07/09/2019 9:54 EST Performed On: 07/09/2019 9:54 EST by FREDERIC PHAM RN-Utilization Review Primary Insurance Authorization Authorization and Policy Numbers : Insurance 1 Health Plan: [employer] Policy Number: [id number] Authorization Number: Insurance Primary Name : [facility] Authorization Status-Primary : Awaiting callback Reference Number-Primary : [id number] Authorized Service Begin Date-Primary : 07/05/2019 EDT Authorization Comments-Primary : [facility] auth still pending per website Historical Authorization Comments-Primary : Comment 1: [facility] auth still pending per website (FREDERIC PHAM RN-Utilization Review 07/08/2019 13:30) Comment 2: [facility] auth still pending per website (FREDERIC PHAM RN-Utilization Review 07/07/2019 13:48) Comment 3: Clinicals submitted via [facility] portal. (SHAAN RICHTER Rn-Utilization Review 07/06/2019 09:45) Comment 4: Reference number retrieved from [facility] portal. (SHAAN RICHTER, Rn-Utilization Review 07/06/2019 09:37) FREDERIC PHAM RN-Utilization Review - 07/09/2019 9:54 EST Electronically signed by [place] [facility] Conversion Gas Plant Technician Cerner at 12/16/2022 10:41 AM CDT documented in this encounter Plan of Treatment Upcoming Encounters Date Type Department Care Team (Late st Contact Info) Description 11/03/2025 12:45 PM EST Office Visit [facility] Pulmonology - [address] [place] [address] Ben Barrios MD [address] [place] [address] documented as of this encounter Visit Diagnoses Not on filedocumented in this encounter Care Teams Munitions Worker Relationship Specialty Start Date End Date Amie Pena MD [facility] [place] [address] PCP - General Family Medicine 10/31/22 04/08/23 Marvel Grayson MD [address] [place] [address] PCP - General Family Medicine 05/17/23 Marvel Grayson [address] [place] [address] Family Practice 04/09/23 documented as of this encounter
--- OUTSIDE RECORDS SUMMARY | 2025-07-02 14:01 | XMS_ITS | Encounter Summary ---
Author Organization [employer] ([place], [place], [place], [place]) Address [address] [place] [address] Care Team Providers Care Manager Reimbursement Name Role Phone Amie Pena MD Primary Care Provider [phone] Marvel Grayson MD Primary Care Provider [phone] Encounter Details Date Type Department Care Team (Late st Contact Info) Description 10/29/2019 Transcribed Document [facility] [address] [place] [address] Provider, Karthikeyan Houser MD Social History Tobacco Use Types Packs/Day Years Used Date Smoking Tobacco: Never Assessed Comments Unknown Sex and Gender Information Value Date Recorded Sex Assigned at Not on file Legal Sex Female 6:09 PM CDT Gender Identity Not on file Sexual Orientation Not on file documented as of this encounter Miscellaneous Notes * Cerner Conversion Note - [facility] Mik Thorne MD - 10/29/2019 6:47 PM EST [facility] [address] [place] [address] PRATIK SHABAZZ :1970 Visit Time:10/29/2019 Your Visit Summary Your Care Team Primary Provider: EARL STACK APRN-EMR Secondary Provider: Your Diagnosis Chest pain, Chest pain Chest pain Medical Information You may obtain a copy of your Emergency Department visit from Medical Records by calling the hospital phone number listed above and asking to be directed to the Medical Records Department. If you had special tests, such as EKG???s or X-rays, the interpretation of your tests given to you by the Emergency Department Physician is a preliminary report. Some fractures and illnesses fail to show up on preliminary tests. These will be reviewed again and we will call you if there are any new suggestions. If your symptoms continue notify your physician. After you leave, you should follow the instructions provided. What to do next Follow-Up Appointments Follow Up with [facility] When Within As needed Comments Patient stated she was not wanting to be scheduled today with a primary care physician. Patient was provided with printed information on Dr. Candy Swanson and Dr. Tato Hayden as well as a [facility] business card to reach out to us if assistance is needed. Feel free to contact us with any other physician scheduling needs at [phone]. Rest, fluids, follow up with pcp in 1-2 days for recheck. Return to ER as needed. Allergies Levaquin Cymbalta (suicidal) Haldol (Hives) Ultram (Hives) Vraylar (Suicidal thoughts) codeine (Respiratory depression) doxycycline (Vomiting) penicillin (Headache) Immunizations This Visit No Immunizations Found Medications What How Much When Instructions Next Dose The home medications listed are only as accurate as the information you provided. Please continue taking all of your medications prescribed by your Primary Care Provider unless specifically told to change or discontinue the medication. Please direct any questions regarding your home medications to your Primary Care Provider. Take your medications faithfully. Do NOT skip [...] Please dispose of unused and medications per pharmacy guidance. Test Results Laboratory or Other Results This Visit (last charted value for your 10/29/2019 visit) Hematology 10/29/2019 2:27 PM WBC: 9.7 K/uL -- Normal range between ( 3.9 and 10.0 ) RBC: 4.48 Million/uL -- Normal range between ( 3.93 and 5.22 ) Hct: 41.0 % -- Normal range between ( 34.1 and 44.9 ) Hgb: 13.3 Gram/dL -- Normal range between ( 11.2 and 15.7 ) Platelet Count: 339 K/uL -- Normal range between ( 163 and 369 ) MCH: 29.7 pg -- Normal range between ( 25.6 and 32.2 ) MCHC: 32.4 Gram/dL -- Normal range between ( 32.3 and 36.5 ) MCV: 91.5 fL -- Normal range between ( 79.0 and 94.8 ) Slide Review: No Eos %: 4.3 % -- Normal range between ( 1.0 and 7.0 ) Ness #: 0.72 K/uL -- Normal range between ( 0.24 and 0.82 ) Eos #: 0.42 K/uL -- Normal range between ( 0.04 and 0.54 ) Ness %: 7.4 % -- Normal range between ( 4.7 and 12.5 ) Baso %: 0.8 % -- Normal range between ( 0.0 and 1.0 ) Baso #: 0.08 K/uL -- Normal range between ( 0.01 and 0.08 ) RDW: 12.7 % -- Normal range between ( 11.6 and 14.4 ) Neut %: 42.5 % -- Normal range between ( 34.0 and 71.0 ) Neut #: 4.13 K/uL -- Normal range between ( 1.56 and 6.13 ) Lymph %: 44.7 % -- Normal range between ( 19.3 and 53.0 ) Lymph #: 4.34 K/uL -- Normal range between ( 1.18 and 3.74 ) MPV: 10.5 fL -- Normal range between ( 9.4 and 12.4 ) IG#: 0 x10(3)/uL IG%: 0 % -- Normal range between ( 0 and 1 ) General Chemistry 10/29/2019 2:27 PM Creatinine Level: 0.75 mg/dL -- Normal range between ( 0.55 and 1.02 ) Sodium Level: 142 mmol/L -- Normal range between ( 136 and 146 ) Potassium Level: 3.6 mmol/L -- Normal range between ( 3.5 and 5.1 ) Chloride Level: 106 mmol/L -- Normal range between ( 102 and 112 ) Carbon Dioxide Level: 26 mmol/L -- Normal range between ( 21 and 32 ) Anion Gap: 14 -- Normal range between ( 9 and 20 ) Bilirubin Total: 0.2 mg/dL -- Normal range between ( 0.2 and 1.3 ) A/G Ratio: 1.1 -- Normal range between ( 1.1 and 2.5 ) ALT: 28 Units/Liter -- Normal range between ( 12 and 78 ) AST: 18 Units/Liter -- Normal range between ( 5 and 37 ) Globulin: 3.4 Gram/dL -- Normal range between ( 1.5 and 4.5 ) Alk Phos: 87 Units/Liter -- Normal range between ( 27 and 136 ) Bun/Creatinine: 12.0 -- Normal range between ( 8.0 and 20.0 ) Calcium Level: 9.0 mg/dL -- Normal range between ( 8.5 and 10.1 ) eGFR : >60 mL/min/1.73m2 eGFR NonAfrican: >60 mL/min/1.73m2 Glucose Level: 94 mg/dL -- Normal range between ( 74 and 106 ) Blood Urea Nitrogen: 9 mg/dL -- Normal range between ( 7 and 22 ) Protein Total: 7.1 Gram/dL -- Normal range between ( 6.4 and 8.2 ) Albumin Level: 3.7 Gram/dL -- Normal range between ( 3.4 and 5.0 ) Cardiac Specific Markers 10/29/2019 4:16 PM Troponin I Ultra: <0.015 ng/mL -- Normal range between ( 0.015 and 0.045 ) Coagulation 10/29/2019 2:27 PM INR: 1.0 -- Normal range between ( 0.9 and 1.1 ) PT: 10.3 Second(s) -- Normal range between ( 9.6 and 11.5 ) Diagnostic Radiology 10/29/2019 3:00 PM CR Chest 1 Vw Portable: CR Chest 1 Vw Portable [employer] Nonspecific Chest Pain Chest pain can be caused by many different conditions. There is always a chance that your pain could be related to something serious, such as a heart attack or a blood clot in your lungs. Chest pain can also be caused by conditions that are not life-threatening. If you have chest pain, it is very important to follow up with your health care provider. What are the causes? Causes of this condition include: ??? Heartburn. ??? Pneumonia or bronchitis. ??? Anxiety or stress. ??? Inflammation around your heart (pericarditis) or lung (pleuritis or pleurisy). ??? A blood clot in your lung. ??? A collapsed lung (pneumothorax). This can develop suddenly on its own (spontaneous pneumothorax) or from trauma to the chest. ??? Shingles infection (varicella-zoster virus). ??? Heart attack. ??? Damage to the bones, muscles, and cartilage that make up your chest wall. This can include: ? Bruised bones due to injury. ? Strained muscles or cartilage due to frequent or repeated coughing or overwork. ? Fracture to one or more ribs. ? Sore cartilage due to inflammation (costochondritis). What increases the risk? Risk factors for this condition may include: ??? Activities that increase your risk for trauma or injury to your chest. ??? Respiratory infections or conditions that cause frequent coughing. ??? Medical conditions or overeating that can cause heartburn. ??? Heart disease or family history of heart disease. ??? Conditions or health behaviors that increase your risk of developing a blood clot. ??? Having had chicken pox (varicella zoster). What are the signs or symptoms? Chest pain can feel like: ??? Burning or tingling on the surface of your chest or deep in your chest. ??? Crushing, pressure, aching, or squeezing pain. ??? Dull or sharp pain that is worse when you move, cough, or take a deep breath. ??? Pain that is also felt in your back, neck, shoulder, or arm, or pain that spreads to any of these areas. Your chest pain may come and go, or it may stay constant. How is this diagnosed? Lab tests or other studies may be needed to find the cause of your pain. Your health care provider may have you take a test called an ECG (electrocardiogram). An ECG records your heartbeat patterns at the time the test is performed. You may also have other tests, such as: ??? Transthoracic echocardiogram (TTE). In this test, sound waves are used to create a picture of the heart structures and to look at how blood flows through your heart. ??? Transesophageal echocardiogram (DANIEL). This is a more advanced imaging test that takes images from inside your body. It allows your health care provider to see your heart in finer detail. ??? Cardiac monitoring. This allows your health care provider to monitor your heart rate and rhythm in real time. ??? Holter monitor. This is a portable device that records your heartbeat and can help to diagnose abnormal heartbeats. It allows your health care provider to track your heart activity for several days, if needed. ??? Stress tests. These can be done through exercise or by taking medicine that makes your heart beat more quickly. ??? Blood tests. ??? Other imaging tests. How is this treated? Treatment depends on what is causing your chest pain. Treatment may include: ??? Medicines. These may include: ? Acid blockers for heartburn. ? Anti-inflammatory medicine. ? Pain medicine for inflammatory conditions. ? Antibiotic medicine, if an infection is present. ? Medicines to dissolve blood clots. ? Medicines to treat coronary artery disease (CAD). ??? Supportive care for conditions that do not require medicines. This may include: ? Resting. ? Applying heat or cold packs to injured areas. ? Limiting activities until pain decreases. Follow these instructions at home: Medicines ??? If you were prescribed an antibiotic, take it as told by your health care provider. Do not stop taking the antibiotic even if you start to feel better. ??? Take [id number] and prescription medicines only as told by your health care provider. Lifestyle ??? Do not use any products that contain nicotine or tobacco, such as cigarettes and e-cigarettes. If you need help quitting, ask your health care provider. ??? Do not drink alcohol. ??? Make lifestyle changes as directed by your health care provider. These may include: ? Getting regular exercise. Ask your health care provider to suggest some activities that are safe for you. ? Eating a heart-healthy diet. A registered dietitian can help you to learn healthy eating options. ? Maintaining a healthy weight. ? Managing diabetes, if necessary. ? Reducing stress, such as with yoga or relaxation techniques. General instructions ??? Avoid any activities that bring on chest pain. ??? If heartburn is the cause for your chest pain, raise (elevate) the head of your bed about 6 inches (15 cm) by putting blocks under the legs. Sleeping with more pillows does not effectively relieve heartburn because it only changes the position of your head. ??? Keep all follow-up visits as told by your health care provider. This is important. This includes any further testing if your chest pain does not go away. Contact a health care provider if: ??? Your chest pain does not go away. ??? You have a rash with blisters on your chest. ??? You have a fever. ??? You have chills. Get help right away if: ??? Your chest pain is worse. ??? You have a cough that gets worse, or you cough up blood. ??? You have severe pain in your abdomen. ??? You have severe weakness. ??? You faint. ??? You have sudden, unexplained chest discomfort. ??? You have sudden, unexplained discomfort in your arms, back, neck, or jaw. ??? You have shortness of breath at any time. ??? You suddenly start to sweat, or your skin gets clammy. ??? You feel nauseous or you vomit. ??? You suddenly feel light-headed or dizzy. ??? Your heart begins to beat quickly, or it feels like it is skipping beats. These symptoms may represent a serious problem that is an emergency. Do not wait to see if the symptoms will go away. Get medical help right away. Call your local emergency services (911 in the [place] Do not drive yourself to the hospital. This information is not intended to replace advice given to you by your health care provider. Make sure you discuss any questions you have with your health care provider. Document Released: 05/30/2006 Document Revised: 05/14/2017 Document Reviewed: 05/14/2017 [employer] Patient Education ?? 2019 [employer]. Emergency Awareness and Preventative Care STROKE is an EMERGENCY Every Minute Counts Act FAST and Check for these signs: FACE Does the face look uneven? ARM Does one arm drift down? SPEECH Does their speech sound strange? TIME Call at any sign of stroke Stroke Risk Factors Atrial Fibrillation (irregular heartbeat) Diabetes Family history of stroke Heart Disease Heavy alcohol use High Blood Pressure High Cholesterol Physical inactivity and obesity Smoking Cigarette Smoking The facts are clear, cigarette smoking will shorten your life. Smoking can cause many illnesses along the way. As a healthcare provider, we recommend that you stop smoking. Assistance with quitting is available by contacting 6-504-OZBC-NOW. This is a free resource providing counseling, support, and referral. Or you may contact your personal physician. National Suicide Prevention Lifeline: The National Suicide Prevention Lifeline is a national network of local crisis centers that provides free and confidential emotional support to people in suicidal crisis or emotional distress 24 hours a day, 7 days a week. Don't Wait! Stop a Heart Attack Before it Starts What is a heart attack? A heart attack is damage or to a part of the heart from severely decreased or lack of blood flow to the heart. Over time, arteries can become narrow from the buildup of fat and cholesterol, which is called plaque. The plaque can rupture causing a blood clot to form. When the blood clot forms, the artery can become severely narrowed or completely blocked, causing a heart attack. Heart attack is the leading cause of in the [place]. 85% of muscle damage occurs within the first 2 hours. Delay in the recognition of heart attack symptoms increases the chances of . Know the early symptoms of a heart attack: Nausea Feeling of fullness in chest Jaw Pain Pain that travels down one or both arms Fatigue/being tired Anxiety Back Pain Chest pressure, squeezing, or discomfort Shortness of breath Sweating, or a cold sweat Feeling of impending doom There are unusual signs of a heart attack, too! Women, the elderly, and diabetics may present with atypical symptoms: Fainting/dizziness Weakness Confusion Risk Factors for a Heart Attack Some heart disease risk factors, such as age and family history, cannot be changed. Others, like smoking and lack of exercise, can be changed. Smoking High Cholesterol High Blood Pressure Family History Obesity Age Gender (Males are at higher risk) Lack of Exercise Diabetes Diet Stress Excessive Alcohol Intake If you or someone you know is experiencing the signs and symptoms of a heart attack, DON???T DELAY. Call immediately and seek help. If someone collapses, perform CPR! Do not attempt to drive if you are having symptoms of heart attack. Hands-Only CPR Why Hands-Only CPR? Hands-Only CPR has been shown to be as effective as conventional CPR for cardiac arrests that occur outside of a hospital. Survival depends on immediately receiving CPR from someone nearby. How do you perform Hands-Only CPR? There are two easy steps: Call if you see a teen or adult collapse Push hard and fast in the center of the chest at a beat of 100 beats per minute. Save a life! 4 WAYS TO GET AHEAD OF SEPSIS SEPSIS is a MEDICAL EMERGENCY. Time matters! Infections put you and your family at risk for a life-threatening condition called sepsis. Sepsis is the body's extreme response to an infection. It is life-threatening, and without timely treatment, sepsis can rapidly lead to tissue damage, organ failure, and . Sepsis happens when an infection you already have-in your skin, lungs, urinary tract or somewhere else-triggers a chain reaction throughout your body. 1 PREVENT INFECTIONS Take good care of chronic conditions. Talk to your doctor about getting the recommended vaccines. 2 PRACTICE GOOD HYGIENE Wash your hands frequently. Keep cuts or open sores clean and covered until they are healed. 3 KNOW THE SYMPTOMS Confusion or disorientation Shortness of breath High heart rate Fever, shivering, or feeling very cold Extreme pain or discomfort Clammy or sweaty skin 4 ACT FAST Get medical care IMMEDIATELY if you suspect sepsis or if you have an infection that is not getting better or is getting worse. To learn more about sepsis and how to prevent infections, visit www.cdc.gov/sepsis. The examination and treatment you have received in the Emergency Department has been done to provide an appropriate evaluation and stabilizing treatment on an emergency basis only. Given the limited resources, it is not meant to be a substitute for complete medical care. The follow-up doctor you named will receive a copy of your records and all test reports. IT IS IMPORTANT THAT YOU SCHEDULE A FOLLOW-UP APPOINTMENT AND ARE RE-EVALUATED. You should report any new complaints, symptoms, or remaining problems at that time. IT IS IMPOSSIBLE FOR THE EMERGENCY DEPARTMENT TO RECOGNIZE AND TREAT ALL ELEMENTS OF INJURY OR ILLNESS IN A SINGLE VISIT. If you have been referred to a specialist physician, it means that we believe you may have a condition that requires the expertise of a specialist. These physicians work in partnership with the hospital and have agreed to see referred patients in their office for further evaluation. KEEP IN MIND THAT THE SPECIALIST HAS HIS/HER OWN OFFICE POLICIES WHICH MAY REQUIRE PROPER INSURANCE OR PAYMENT UP FRONT BEFORE THE SPECIALIST WILL SEE YOU. It is your responsibility to call the specialist physician to make an appointment. We do not have the ability to refer patients to specialists/physicians that work with specific insurance companies. Please be advised that all financial charges or billing practices are determined by that practice, not the hospital. If your insurance company requires that you see a specialist from their approved list, it is your responsibility to contact your insurance company to make those arrangements. It is also your responsibility to follow any other requirements of your insurance company necessary to obtain coverage for claims submitted. We will bill your insurance; however, you are responsible today for any co-pay amounts. You will receive a separate bill for any services you may have received including: emergency, radiology, or pathology physicians. Patient Name:PRATIK SHABAZZ I have received this information and was given the opportunity to ask questions. 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 Date: documented in this encounter Plan of Treatment Upcoming Encounters Date Type Department Care Team (Late st Contact Info) Description 11/03/2025 12:45 PM EST Office Visit [facility] - [address] [place] [address] Ben Barrios MD [address] [place] [address] documented as of this encounter Visit Diagnoses Not on filedocumented in this encounter Care Teams Manager Reimbursement Relationship Specialty Start Date End Date Amie Pena MD [address] [place] [address] PCP - General Family Medicine 10/31/22 04/08/23 Marvel Grayson MD [address] [place] [address] [place] [address] PCP - General Family Medicine 05/17/23 Marvel Grayson [address] [place] [address] Family Practice 04/09/23 documented as of this encounter
--- OUTSIDE RECORDS SUMMARY | 2025-07-02 14:01 | XMS_ITS | Encounter Summary ---
Author Organization [employer] ([place], [place], [place], [place]) Address [address] [place] [address] Care Team Providers Care Auto Refinisher Name Role Phone Amie Pena MD Primary Care Provider [phone] Marvel Grayson MD Primary Care Provider [phone] Encounter Details Date Type Department Care Team (Late st Contact Info) Description 07/06/2019 Transcribed Document [facility] [place] Family Medicine [address] [place] [address] ProviderMik MD [address] [place] [address] Social History Tobacco Use Types Packs/Day Years Used Date Smoking Tobacco: Never Assessed Comments Unknown Sex and Gender Information Value Date Recorded Sex Assigned at Not on file Legal Sex Female 6:09 PM CDT Gender Identity Not on file Sexual Orientation Not on file documented as of this encounter Miscellaneous Notes * Cerner Conversion Note - Mik ProviderMD - 07/06/2019 10:30 AM HEAD PORTER Treatment Intervention, PT Entered On: 07/07/2019 11:10 EST Performed On: 07/07/2019 9:28 EST by IKE ARIAS PTA General Information, PT Visit Type, PT : Treatment Note IKE ARIAS PTA - 07/07/2019 11:06 EST Patient Orders : Order Date Order Ordering 07/05/2019 22:49 PT Evaluation and Treatment Ordered By: LI LUEVANO MD-INT 07/06/2019 10:30 PT Additional Treatment Ordered By: SANCHO POND, PT Active Diagnoses : No Qualifying Diagnoses IKE ARIAS FORESTRY SUPPORT SPECIALIST - 07/07/2019 12:23 EST Therapy Diagnosis, PT : Reduced Mobility IKE ARIAS [facility] - 07/07/2019 11:06 EST Admission Date : 07/05/2019 21:[address] [facility] 07/07/2019 12:23 EST Assisted by, PT : Occupational Therapist JUANA IKE [facility] 07/07/2019 11:06 EST Personal Devices : Personal Devices No Devices Recorded Assistive Devices : Assistive Devices No Devices Recorded IKE ARIAS [facility] 07/07/2019 12:23 EST General Status Patient Received Status : Long sitting in bed, Other: Needs in reach, O2 via nasal cannula 2L, IV, pulse oximeter, visitor present Treatment Start Time : 07/07/2019 9:28 EST Patient Left Status : Long sitting in bed, RN/PCT informed, All needs met and within reach, Other: O2 via nasal cannula 2L, IV, pulse oximeter, visitor present RN/PCT Informed Comment : RICKEY harrell physical therapy. Treatment End Time : 07/07/2019 9:41 EST Treatment Time : 13 Minute(s) JUANA ALEXANDER RAMIRES 07/07/2019 11:06 EST Intervention Summary O2 Pre-Intervention : O2 via nasal cannula 2L SpO2 Pre-Intervention : 95 % O2 During Intervention : O2 via nasal cannula 2L SpO2 During Intervention : 93 % Therapist Assessment During Intervention : 93% after gait. O2 Post-Intervention : O2 via nasal cannula 2L SpO2 Post-Intervention : 96 % IKE ARIAS PTA 07/07/2019 11:06 EST History and Environment Living Situation, Therapy : Home Patient Lives With : Sibling(s), Spouse Professional Skilled Services : None Persons Providing Information : Patient Home Equipment Therapy, PT : Cane Home Setup : Other: duplex Bedroom Location : Main level Bathroom #1 Location : Main level Stairs : Yes Stair Location(s) : Outside Outside Stairs, Number of Steps : 2 Outside Stairs Comment : 2 small steps to enter her home, with a stoop between the steps. Railing Outside : No IKE ARIAS PTA - 07/07/2019 11:06 EST Edu Topics Physical Therapy Education Grid Gait Training : Verbalizes understanding, Returns demonstration, Needs further teaching Safety : Verbalizes understanding, Returns demonstration Transfer Training : Verbalizes understanding, Returns demonstration IKE ARIAS, ALEXANDER - 07/07/2019 11:06 EST Plan of Care, PT PT Tx Plan/Goals Established w Patient : Yes IKE ARIAS, ALEXANDER - 07/07/2019 11:06 EST Mcfp Goals Other PT LTG Grid Goal #1 Goal #2 Other : Pt to ambulate 200 feet with O2 sats remaining above 92%, and SBA, to allow for home access upon her d/c. Pt to ambulate 200 feet without AD support (including IV pole) with SBA to assist with home access upon d/c. Date to Meet : 07/13/2019 EST 07/13/2019 EST Goal Status : Progressing, continue Initial goal IKE ARIASALEXANDER - 07/07/2019 11:06 EST IKE ARIAS FORESTRY SUPPORT SPECIALIST - 07/07/2019 11:06 EST Treatment Note Patient's Response to Treatment : Good Additional Objective Information : Patient was Modified Independent with supine<=>sit with HOB elevated. Sit<=>stand from EOB: Independent. Gait training 295' CGA/SBA with patient pushing own IV pole and O2 follow. She demonstrated an evep step length, reciprocal gait pattern, and verbal cues were given on PLB and rest breaks for energy conservation. SpO2 assessed on 2L via nasal cannula after gait 93% with reports of burning in her chest with rest SpO2 increased to 96%. She was in long sitting following session with needs in reach and visitor present. Assessment : Patient was willing to participate in therapy. She increased her gait distance without loss of balance and SpO2 after gait 93% on 2L via nasal cannula; no rest breaks required despite education on rest breaks for energy conservation with gait. She is making progress towards gait goal. Plan for Treatment : Continue with PT POC Subjective Comment : Patient was agreeable to physical therapy. She reported discomfort from sitting in bed. IKE ARIASALEXANDER - 07/07/2019 12:23 EST Pain Assessment Pain Scaled Used : 0-10 Pain scale Pain Score Pre-Intervention : 0 Pain Score During-Intervention : 0 Pain Score Post-Intervention. : 0 Pain Comment : Discomfort from sitting. IKE ARIASALEXANDER - 07/07/2019 11:06 EST Image 1 - Images currently included in the form version of this document have not been included in the text rendition version of the form. [facility] PT Charges Gait Training Each 15 Min : 1 IKE ARIAS, FORESTRY SUPPORT SPECIALIST - 07/07/2019 11:06 EST documented in this encounter Plan of Treatment Upcoming Encounters Date Type Department Care Team (Late st Contact Info) Description 11/03/2025 12:45 PM EST Office Visit [facility] Pulmonology - [address] [place] [id number] Ben Barrios MD [address] [place] [address] documented as of this encounter Visit Diagnoses Not on filedocumented in this encounter Care Teams Auto Refinisher Relationship Specialty Start Date End Date Amie Pena MD [address] [place] [address] PCP - General Family Medicine 10/31/22 04/08/23 Marvel Grayson MD [address] [place] [address] PCP - General Family Medicine 05/17/23 Marvel Grayson [address] [place] [address] Family Practice 04/09/23 documented as of this encounter
--- OUTSIDE RECORDS SUMMARY | 2025-07-02 14:01 | XMS_ITS | Encounter Summary ---
Author Organization [employer] ([place], [place], [place], [place]) Address [address] [place] [address] Care Team Providers Care Credit Control Administrator Name Role Phone Amie Pena MD Primary Care Provider [phone] Marvel Grayson MD Primary Care Provider [phone] Encounter Details Date Type Department Care Team (Late st Contact Info) Description 10/29/2019 Transcribed Document [facility] [place] [address] [place] [address] ProviderMik MD [address] [place] [address] Social History Tobacco Use Types Packs/Day Years Used Date Smoking Tobacco: Never Assessed Comments Unknown Sex and Gender Information Value Date Recorded Sex Assigned at Not on file Legal Sex Female 6:09 PM CDT Gender Identity Not on file Sexual Orientation Not on file documented as of this encounter Miscellaneous Notes * Cerner Conversion Note - Mik ProviderMD - 10/29/2019 2:14 PM PRESS PIPE INSPECTOR ED Assessment Entered On: 10/29/2019 14:34 EST Performed On: 10/29/2019 14:31 EST by Candy Forman RN ED Quick Look Assessment Level of Consciousness : Alert, Awake Affect/Behavior : Appropriate, Calm, Cooperative Orientation : Oriented x 4 Skin Temperature : Warm Skin Description : Normal for ethnicity, Dry Candy Forman RN - 10/29/2019 14:31 EST ED General-Functional Assess Information Obtained From : Patient Preferred Communication Mode : Verbal Communication Barrier : None Primary Language : Zimbabwean Any Spiritual/Cultural Needs or Requests : No Currently in Unsafe Situation : No Candy Forman RN - 10/29/2019 14:31 EST Social Habits Smoking Status : 10 or more cigarettes (1/2 pack or more)/day in last 30 days Smokeless Tobacco Status : Never Desires Tobacco Cessation Medication : No Reason for No Tobacco Cessation Medication : Refuses FDA approved medications Desires Tobacco Cessation Calc : 1 Candy Forman RN - 10/29/2019 14:31 EST Social History (As Of: 10/29/2019 14:34:02 EST) Tobacco: Use in Last 12 Months: Cigarettes. Smoking Status Current every day smoker. Years of Use: 30. Packs/Tins Daily: 1. (Last Updated: 03/29/2015 21:16:03 EDT by MARIAN YAO, RICKEY) Alcohol: Alcohol Use History No. (Last Updated: 04/11/2019 13:17:27 EDT by ALLA ZAPATA, RN) Substance Abuse: Drug Use Hx: No. (Last Updated: 04/11/2019 13:17:27 EDT by ALLA ZAPATA, RICKEY) Nutrition/Health: Caffeine intake amount: pot of coffee daily. (Last Updated: 02/13/2014 15:40:18 EDT by LASHNADA WEBER, RICKEY) Home/Environment: Lives with Significant other. (Last Updated: 07/19/2016 17:26:14 EST by PANCHO SAEED RN) Cardiovascular ASMT, ED Heart Rhythm : Regular Nail Bed Color : [place] Detailed Cardiovascular Assessment : Open Candy Forman RN - 10/29/2019 14:31 EST Cardiovascular ASMT, Detailed Cardiac Rhythm Comment : pt c/o left sided chest pain that radiates to her L shoulder. pt denies SOA. 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 no cardiac hx per pt. pt aaox4 (Comment: resps even&nonlabored. skinpwd. [Candy Forman RN - 10/29/2019 14:31 EST] ) Candy Forman RN - 10/29/2019 14:31 EST documented in this encounter Plan of Treatment Upcoming Encounters Date Type Department Care Team (Late st Contact Info) Description 11/03/2025 12:45 PM EST Office Visit [facility] Pulmonology - [address] [place] [id number] Ben Barrios MD [address] [place] [address] documented as of this encounter Visit Diagnoses Not on filedocumented in this encounter Care Teams Credit Control Administrator Relationship Specialty Start Date End Date Amie Pena MD [address] [place], [place] [address] [address] PCP - General Family Medicine 10/31/22 04/08/23 Marvel Grayson MD [facility] [place] [address] PCP - General Family Medicine 05/17/23 Marvel Grayson [address] [place] [address] Family Practice 04/09/23 documented as of this encounter
--- OUTSIDE RECORDS SUMMARY | 2025-07-02 14:01 | XMS_ITS | Encounter Summary ---
Author Organization [employer] ([place], [place], [place], [place]) Address [address] [place] [address] Care Team Providers Care School Physical Therapist Name Role Phone Marbella Pena MD Primary Care Provider [phone] Marvel Grayson MD Primary Care Provider [phone] Encounter Details Date Type Department Care Team (Late st Contact Info) Description 08/06/2020 Transcribed Document [facility] [place] [address] [place] [address] ProviderMik MD [address] [place] [address] Social History Tobacco Use Types Packs/Day Years Used Date Smoking Tobacco: Never Assessed Comments Unknown Sex and Gender Information Value Date Recorded Sex Assigned at Not on file Legal Sex Female 6:09 PM CDT Gender Identity Not on file Sexual Orientation Not on file documented as of this encounter Miscellaneous Notes * Cerner Conversion Note - Mik ProviderMD - 08/06/2020 2:52 PM SPECIAL WEAPONS UNIT OFFICER CHARAN Lowery [address] [place] [address] PRATIK SHABAZZ :1970 Visit Time:08/06/2020 Your Visit Summary Your Care Team Primary Provider: TRISH MICHELLE Secondary Provider: Your Diagnosis Fall Sprain, low back Medical Information You may obtain a copy [...] do next Follow-Up Appointments Follow Up with MARBELLA PENA When Within 2 to 3 days Where: [place] [address] Business (1) Allergies Levaquin Cymbalta (suicidal) Haldol (Hives) Ultram (Hives) Vraylar (Suicidal thoughts) codeine (Respiratory depression) doxycycline (Vomiting) penicillin (Headache) Immunizations This Visit No Immunizations Found Medications What How Much When Instructions Next Dose acetaminophen-hydrocodone (Lortab 5/ 325 oral tablet) Oral Every 6 Hours acetaminophen-hydrocodone (Coppell 7.5 mg-325 mg oral tablet) 1 Tablet(s) Oral Every 4 Hours as needed for as needed for pain Duration: 3 Day(s) Printed Prescription albuterol (albuterol 2.5 mg/ 3 mL (0.083%) inhalation solution) albuterol-ipratropium (DuoNeb 0.5 mg-2.5 mg/ 3 mL inhalation solution) 3 Milliliter(s) Nebulized Inhalation Every 4 Hours gabapentin (gabapentin 300 mg oral capsule) 1 Capsule(s) Two Times A Day The home medications listed are only as [...] This Visit (last charted value for your 08/06/2020 visit) No Laboratory or Other Results This Visit Education Materials Back Injury Prevention Back injuries can be very painful. They can also be difficult to heal. After having one back injury, you are more likely to have another one again. It is important to learn how to avoid injuring or re-injuring your back. The following tips can help you to prevent a back injury. What actions can I take to prevent back injuries? Nutrition changes Talk with your health care provider about your overall diet, and especially about foods that strengthen your bones. ??? Ask your health care provider how much calcium and vitamin D you need each day. These nutrients help to prevent weakening of the bones (osteoporosis). Osteoporosis can cause broken (fractured) bones, which lead to back pain. ??? Eat foods that are good sources of calcium. These include dairy products, green leafy vegetables, and products that have had calcium added to them (fortified). ??? Eat foods that are good sources of vitamin D. These include milk and foods that are fortified with vitamin D. ??? If needed, take supplements and vitamins as directed by your health care provider. Physical fitness Physical fitness strengthens your bones and your muscles. It also increases your balance and strength. ??? Exercise for 30 minutes per day on most days of the week, or as directed by your health care provider. Make sure to: ? Do aerobic exercises, such as walking, jogging, biking, or swimming. ? Do exercises that increase balance and strength, such as mukesh chi and yoga. These can decrease your risk of falling and injuring your back. ? Do stretching exercises to help with flexibility. ? Develop strong abdominal muscles. Your abdominal muscles provide a lot of the support that your back needs. ??? Maintain a healthy weight. This helps to decrease your risk of a back injury. Good posture Prevent back injuries by developing and maintaining a good posture. To do this successfully: ??? Sit up and stand up straight. Avoid leaning forward when you sit or hunching over when you stand. ??? Choose chairs that have good low-back (lumbar) support. ??? If you work at a desk, sit close to it so you do not need to lean over. Keep your chin tucked in. Keep your neck drawn back, and keep your elbows bent at a right angle. ??? Sit high and close to the steering wheel when you drive. Add a lumbar support to your car seat, if needed. ??? Avoid sitting or standing in one position for very long. Take breaks to get up, stretch, and walk around at least one time every hour. Take breaks every hour if you are driving for long periods of time. ??? Sleep on your side with your knees slightly bent, or sleep on your back with a pillow under your knees. Lifting, twisting, and reaching Back injuries are more likely to occur when carrying loads and twisting at the same time. When you bend and lift, or reach for items that are high up in shelves, use positions that put less stress on your back. ??? Heavy lifting ? Avoid heavy lifting, especially the kind of heavy lifting that is repetitive. If you must do heavy lifting: ? Stretch before lifting. ? Work slowly. ? Rest between lifts. ? Use a tool such as a cart or a eulogio to move objects. ? Make several small trips instead of carrying one heavy load. ? Ask for help when you need it, especially when moving big or heavy objects. ? Follow these steps when lifting: ? Stand with your feet shoulder-width apart. ? Get as close to the object as you can. Do not try to chicken picker a heavy object that is far from your body. ? Use handles or lifting straps if they are available. ? Bend at your knees. Squat down, but keep your heels off the floor. ? Keep your shoulders pulled back, your chin tucked in, and your back straight. ? Lift the object slowly while you tighten the muscles in your legs, abdomen, and buttocks. Keep the object as close to the center of your body as possible. ? Follow these steps when putting down a heavy load: ? Stand with your feet shoulder-width apart. ? Lower the object slowly while you tighten the muscles in your legs, abdomen, and buttocks. Keep the object as close to the center of your body as possible. ? Keep your shoulders pulled back, your chin tucked in, and your back straight. ? Bend at your knees. Squat down, but keep your heels off the floor. ? Use handles or lifting straps if they are available. ??? Twisting and reaching ? Avoid lifting heavy objects above your waist. ? Do not twist at your waist while you are lifting or carrying a load. If you need to turn, move your feet. ? Do not bend over without bending at your knees. ? Avoid reaching over your head, across a table, or for an object on a high surface. Other changes ??? Avoid wet floors and icy ground. Keep sidewalks clear of ice to prevent falls. ??? Do not sleep on a mattress that is too soft or too hard. ??? Put heavier objects on shelves at waist level, and put sustainable products marketing manager objects on lower or higher shelves. ??? Find ways to decrease your stress, such as by exercising, getting a massage, or practicing relaxation techniques. Stress can build up in your muscles. Tense muscles are more vulnerable to injury. ??? Talk with your health care provider if you feel anxious or depressed. These conditions can make back pain worse. ??? Wear flat heel shoes with cushioned soles. ??? Use both shoulder straps when carrying a backpack. ??? Do not use any products that contain nicotine or tobacco, such as cigarettes and e-cigarettes. If you need help quitting, ask your health care provider. Summary ??? Back injuries can be very painful and difficult to heal. ??? You can prevent injuring or re-injuring your back by making nutrition changes, working on being physically fit, developing a good posture, and lifting heavy objects in a safe way. ??? Making other changes can also help to prevent back injuries. These include eating a healthy diet, exercising regularly and maintaining a healthy weight. This information is not intended to replace advice given to you by your health care provider. Make sure you discuss any questions you have with your health care provider. Document Released: 09/27/2005 Document Revised: 10/05/2018 Document Reviewed: 10/05/2018 [employer] Patient Education ?? 2020 [employer]. Emergency Awareness and Preventative Care [employer]OKE is [...] Assistance with quitting is available by contacting 9-008-NTKS-NOW. This is a free resource providing counseling, [...] was given the opportunity to ask questions. Patient/Unbundler Name: Patient/Unbundler Signature: Relationship to Patient: Clinician/Hospital Unbundler Signature: Please Provide a Telephone Number Where You Can Be Reached: Is it Permissible To Leave a Message? Date: documented in this encounter Plan of Treatment Upcoming Encounters Date Type Department Care Team (Late st Contact Info) Description 11/03/2025 12:45 PM EST Office Visit [facility] Pulmonology - [address] [place] [address] Ben Barrios MD [address] [place] [address] documented as of this encounter Visit Diagnoses Not on filedocumented in this encounter Care Teams School Physical Therapist Relationship Specialty Start Date End Date Marbella Pena MD [address] [place] [address] [place] [address] PCP - General Family Medicine 10/31/22 04/08/23 Marvel Grayson MD [address] [place] [address] [place] [address] PCP - General Family Medicine 05/17/23 Marvel Grayson [address] [place] [address] Family Practice 04/09/23 documented as of this encounter
--- OUTSIDE RECORDS SUMMARY | 2025-07-02 14:01 | XMS_ITS | Encounter Summary ---
Author Organization [employer] ([place], [place], [place], [place]) Address [address] [place] [address] Care Team Providers Care Billboard Poster Name Role Phone Amie Pena MD Primary Care Provider [phone] Marvel Grayson MD Primary Care Provider [phone] Encounter Details Date Type Department Care Team (Late st Contact Info) Description 07/11/2019 Transcribed Document [facility] [place] Family Medicine [address] [place] [address] ProviderMik MD [address] [place] [address] Social History Tobacco Use Types Packs/Day Years Used Date Smoking Tobacco: Never Assessed Comments Unknown Sex and Gender Information Value Date Recorded Sex Assigned at Not on file Legal Sex Female 6:09 PM CDT Gender Identity Not on file Sexual Orientation Not on file documented as of this encounter Miscellaneous Notes * [employer]ner Conversion Note - Mik Thorne MD - 07/11/2019 12:51 PM SCREENING UNIT REGISTERED NURSE UM Authorization Entered On: 07/11/2019 12:52 EST Performed On: 07/11/2019 12:51 EST by FREDERIC PHAM RN-Utilization Review Primary Insurance Authorization Authorization and Policy Numbers : Insurance 1 Health Plan: [email or web address] Policy Number: [id number] Authorization Number: Insurance Primary Name : [facility] Authorization Status-Primary : Awaiting callback Reference Number-Primary : [id number] Authorized Service Begin Date-Primary : 07/05/2019 EDT Authorization Comments-Primary : [facility] auth still pending per website Historical Authorization Comments-Primary : Comment 1: Per DM, initial clinicals requested despite clinicals having been attached to auth on [facility] Portal. Clinicals faxed via [employer]. (SHAAN RICHTER Rn-Utilization Review 07/10/2019 15:26) Comment 2: [facility] auth still pending per website (FREDERIC PHAM RN-Utilization Review 07/10/2019 10:04) Comment 3: [facility] auth still pending per website (FREDERIC PHAM RN-Utilization Review 07/09/2019 09:54) Comment 4: [facility] auth still pending per website (FREDERIC PHAM RN-Utilization Review 07/08/2019 13:30) Comment 5: [facility] auth still pending per website (FREDERIC PHAM RN-Utilization Review 07/07/2019 13:48) Comment 6: Clinicals submitted via [facility] portal. (SHAAN RICHTER Rn-Utilization Review 07/06/2019 09:45) Comment 7: Reference number retrieved from [facility] portal. (SHAAN RICHTER Rn-Utilization Review 07/06/2019 09:37) FREDERIC PHAM RN-Utilization Review - 07/11/2019 12:51 EST documented in this encounter Plan of Treatment Upcoming Encounters Date Type Department Care Team (Late st Contact Info) Description 11/03/2025 12:45 PM EST Office Visit [facility] Pulmonology - [address] [place] [address] Ben Barrios MD [address] [place] [address] documented as of this encounter Visit Diagnoses Not on filedocumented in this encounter Care Teams Billboard Poster Relationship Specialty Start Date End Date Amie Pena MD [address] [place] [address] [place] [address] PCP - General Family Medicine 10/31/22 04/08/23 Marvel Grayson MD [address] [place] [address] [place] [address] PCP - General Family Medicine 05/17/23 Marvel Grayson [address] [place] [address] Family Practice 04/09/23 documented as of this encounter
--- OUTSIDE RECORDS SUMMARY | 2025-07-02 14:02 | XMS_ITS | Encounter Summary ---
Author Organization [employer] ([place], [place], [place], [place]) Address [address] [place] [address] Care Team Providers Care Gift Manager Name Role Phone Amie Pena MD Primary Care Provider [phone] Marvel Grayson MD Primary Care Provider [phone] Encounter Details Date Type Department Care Team (Late st Contact Info) Description 04/18/2019 Transcribed Document [facility] [place] Family Medicine [address] [place] [address] ProviderMik MD [address] [place] [address] Social History Tobacco Use Types Packs/Day Years Used Date Smoking Tobacco: Never Assessed Comments Unknown Sex and Gender Information Value Date Recorded Sex Assigned at Not on file Legal Sex Female 6:09 PM CDT Gender Identity Not on file Sexual Orientation Not on file documented as of this encounter Miscellaneous Notes * Cerner Conversion Note - Historical ProviderMD - 04/18/2019 6:33 AM CDT Pre Procedure Adult Entered On: 04/18/2019 6:37 EDT Performed On: 04/18/2019 6:33 EDT by Yi Hardy, Rn Height and Weight, Clinical Dosing Height Source : Stated Height Entry Format : [place] Height, Feet : 5 ft(Converted to: 152 cm, 60 Inch) Height, Inches : 11 Inch(Converted to: 0 ft 11 Inch, 27.94 cm) Clinical Height : 180.34 cm Weight Source : Standing scale Weight Entry Format : [place] Clinical Dosing Weight : 91.36 kg Weight, Pounds : 201 lb Body Surface Area (BSA) : 2.12 m2 Body Mass Index : 28.1 kg/m2 ([place]) [place] Body Weight : 70 kg Yi Hardy Rn - 04/18/2019 6:33 EDT Health Histories Smoking Status : 10 or more cigarettes (1/2 pack or more)/day in last 30 days Smokeless Tobacco Status : Never Desires Tobacco Cessation Medication : No Reason for No Tobacco Cessation Medication : Refuses FDA approved medications Implant/Device Type, Pile Trimmer and Model : none Yi Hardy Rn - 04/18/2019 6:33 EDT Social History (As Of: 04/18/2019 06:37:35 EDT) Tobacco: Use in Last 12 Months: Cigarettes. Smoking Status Current every day smoker. Years of Use: 30. Packs/Tins Daily: 1. (Last Updated: 03/29/2015 21:16:03 EDT by MARIAN YAO, RICKEY) 10 or more cigarettes (1/2 pack or more)/day in last 30 days Smoking Status. (Last Updated: 09/25/2018 17:08:54 EST by Tahira Coffey Rn) 10 or more cigarettes (1/2 pack or more)/day in last 30 days Smoking Status. Never Smokeless Tobacco Status. e-Cigarettes Alternative Nicotine Product Use. (Last Updated: 04/11/2019 13:17:27 EDT by ALLA ZAPATA RN) Alcohol: Use in Last 12 Months: No. (Last Updated: 11/28/2013 12:39:53 EDT by DIALLO MCKEON RN) Alcohol Use History Yes. Alcohol Use Comment states very rarely. (Last Updated: 09/17/2014 18:20:29 EST by Tyrone Lennon REGISTERED_NURSE_EMERGENCY_ROO) Alcohol Use History No. (Last Updated: 04/11/2019 13:17:27 EDT by ALLA ZAPATA RN) Substance Abuse: Drug Use Hx: No. (Last Updated: 11/28/2013 12:39:50 EDT by DIALLO MCKEON RN) Drug Use Hx: No. (Last Updated: 04/11/2019 13:17:27 EDT by ALLA ZAPATA, RN) Nutrition/Health: Caffeine intake amount: pot of coffee daily. (Last Updated: 02/13/2014 15:40:18 EDT by LASHANDA WEBER RN) Home/Environment: Lives with Significant other. (Last Updated: 07/19/2016 17:26:14 EST by PANCHO SAEED RN) Infectious Disease History Infectious Disease History : Chicken pox/Shingles, Influenza, Measles, Mumps, Other: staph LLF 02/2014 Fever/Chills Last 48 Hours : No Travel To Regions with Travel Advisories : No Travel Outside [place] Within Last 30 Days : No Contact With Traveler to Advisory Region : No Tuberculosis Symptoms : None Yi Hardy Rn - 04/18/2019 6:33 EDT Anesthesia/Transfusion History Family History of Anesthesia Reaction : No prior transfusion(s) Transfusion History : Prior anesthesia without reaction Family History of Anesthesia Reaction : None Yi Hardy Rn - 04/18/2019 6:33 EDT Functional Assessment Living Situation : Home Patient Lives With : Spouse Persons Assisting Patient at Home : Spouse Current Daily Living Assistance : None Sensory Deficits : None Mobility Assistance Prior to Admission : Independent ANDRADE Hx Falls Immediate/Within 3 Months : Yes Current Home Treatments : None Yi Hardy Rn - 04/18/2019 6:33 EDT Psychosocial History Do You Have a History of the Following? : Post Traumatic Stress Disorder Currently in Unsafe Situation : No Tried to Harm Yourself in the Past? : Yes Thoughts of Harming/Killing Yourself : No Yi Hardy Rn - 04/18/2019 6:33 EDT Advance Directive Patient has Advance Directive *Q : No, patient refuses Advance Directive information Yi Hardy Rn - 04/18/2019 6:33 EDT Spiritual/Cultural Needs Any Spiritual/Cultural Needs or Requests : No Spiritual/Cultural Needs Comment : pre-op prayer OR 03/30 Yi Hardy Rn - 04/18/2019 6:33 EDT Teaching/Learning Assessment Barriers To Learning : None evident Individuals Taught : Patient Readiness to Learn : Cooperative Readiness to Learn : Explanation Yi Hardy Rn - 04/18/2019 6:33 EDT Education Topics, Periop Preadmission Perioperative Education Grid Infection Control : Verbalizes understanding IV's : Verbalizes understanding NPO Status/Directions : Verbalizes understanding Pain Management : Verbalizes understanding Preprocedure Preparations : Verbalizes understanding Responsible Adult : Verbalizes understanding Yi Hardy Rn - 04/18/2019 6:33 EDT General Info Preferred Name : Tiffanie Dunn Arrived From : Home Mode of Arrival on Unit : Ambulatory Patient Arrival Date/Time : 04/18/2019 5:45 EDT Legal Guardian : Spouse Want Family/Rep/Phys Notified of Admit : No Emergency Contact #1 : rommel Emergency Contact #1 Emergency Contact #1 Relationship : spouse Emergency Contact #2 : - Emergency Contact #2 Phone Number : - Emergency Contact #2 Relationship : - Chief Complaint : none Information Obtained From : Patient Primary Language : Irish Preferred Communication Mode : Verbal Communication Barrier : None Status : Hysterectomy Yi Hardy Rn - 04/18/2019 6:33 EDT Sleep Apnea Risk Assmt Hx of Obstructive Sleep Apnea Diagnosis : No Snore Loudly : No Tired, Fatigued, or Sleepy During Day : No Observed Stopping Breathing During Sleep : No Have/Are Being Treated for Hypertension : No BMI Greater Than 35 kg/m2 : No Age over 50 Years Old : Yes Neck Circumference Greater Than 40 cm : No Gender Male : No STOP-BANG Sleep Apnea Risk Level Score : 1 Yi Hardy Rn - 04/18/2019 6:33 EDT Abdoulaye Scale Abdoulaye Sensory Perception : No impairment Abdoulaye Moisture : Rarely moist Abdoulaye Activity : Walks frequently Abdoulaye Mobility : No limitation Abdoulaye Nutrition : Adequate Abdoulaye Friction and Shear : No apparent problem Abdoulaye Score : 22 Yi Hardy Rn - 04/18/2019 6:33 EDT Oxygen Therapy Oxygen Therapy Mode : Room air Yi Hardy Rn - 04/18/2019 6:33 EDT Pain Assessment Pain Assessment : Initial assessment Pain Scale Goal : 4 Pain Scale Used : 0-10 Scale Location : Back, lower, Hip, left Onset : Chronic Yi Hardy Rn - 04/18/2019 6:33 EDT Fall Risk Scales ABCs Fall Injury Risk Identification : None ANDRADE Hx Falls Immediate/Within 3 Months : No Andrade Secondary Diagnosis : No ANDRADE Use of Ambulatory Aid : None ANDRADE IV Therapy or IV Access : Yes Andrade Gait/Transferring : Normal, bedrest, immobile Andrade Mental Status : Oriented to own ability Andrade Fall Risk Score : 20 ANDRADE Fall Scale Risk Level : 0-24 Low Risk [place] Fall Interventions : Adequate lighting, Bed in low position, Call device within reach, Non-slip footwear, Personal items within reach, Wheels locked Yi Hardy Rn - 04/18/2019 6:33 EDT Fall Risk Education Grid Call light use : Verbalizes understanding Night Light Use : Verbalizes understanding Nonskid Footwear Use : Verbalizes understanding Yi Hardy Rn - 04/18/2019 6:33 EDT Barriers to Learning : None evident Individuals Taught : Patient Readiness to Learn : Cooperative Teaching Method : Explanation Yi Hardy Rn - 04/18/2019 6:33 EDT Education Topics, Day of Surgery DayofSurgery Education Grid Anesthesia/Sedation : Verbalizes understanding IV's : Verbalizes understanding Pain Management : Verbalizes understanding Plan of Care : Verbalizes understanding Responsible Adult : Verbalizes understanding Yi Hardy Rn - 04/18/2019 6:33 EDT Valuables and Belongings Valuables and Belongings : Clothing, Personal items Clothing : Common streetwear Clothing Disposition : With family Personal Items : Cell phone Personal Items Disposition : With family Belongings Sent Home With : Yi Hardy Rn - 04/18/2019 6:33 EDT Pain Scale Intensity : 5 Yi Hardy Rn - 04/18/2019 6:33 EDT Image 4 - Images currently included in the form version of this document have not been included in the text rendition version of the form. Grant Coma Grant Best Motor Response : Obey commands Grant Best Verbal Response : Oriented Grant Eye Opening Response : Spontaneous Grant Coma Score : 15 Yi Hardy Rn - 04/18/2019 6:33 EDT documented in this encounter Plan of Treatment Upcoming Encounters Date Type Department Care Team (Late st Contact Info) Description 11/03/2025 12:45 PM EST Office Visit [facility] Pulmonology - [address] [place] [address] Ben Barrios MD [address] [facility] [address] [place] [address] documented as of this encounter Visit Diagnoses Not on filedocumented in this encounter Care Teams Gift Manager Relationship Specialty Start Date End Date Amie Pena MD [address] [place] [address] PCP - General Family Medicine 10/31/22 04/08/23 Marvel Grayson MD [address] [place] [address] PCP - General Family Medicine 05/17/23 Marvel Grayson [address] [place] [address] Family Practice 04/09/23 documented as of this encounter
--- OUTSIDE RECORDS SUMMARY | 2025-07-02 14:02 | XMS_ITS | Encounter Summary ---
Author Organization [employer] ([place], [place], [place], [place]) Address [address] [place] [address] Care Team Providers Care Pneumatic Tool Operator Name Role Phone Amie Pena MD Primary Care Provider [phone] Marvel Grayson MD Primary Care Provider [phone] Encounter Details Date Type Department Care Team (Late st Contact Info) Description 07/05/2019 Transcribed Document [facility] [place] [address] [place] [address] ProviderMik MD [address] [place] [address] Social History Tobacco Use Types Packs/Day Years Used Date Smoking Tobacco: Never Assessed Comments Unknown Sex and Gender Information Value Date Recorded Sex Assigned at Not on file Legal Sex Female 6:09 PM CDT Gender Identity Not on file Sexual Orientation Not on file documented as of this encounter Miscellaneous Notes * Cerner Conversion Note - Mik Thorne MD - 07/05/2019 5:31 PM CDT Patient: PRATIK SHABAZZ Age: 48 years Sex: Female : 1970 Associated Diagnoses: Pneumonia; Hypoxia Author: RENÉE MIXON MD-EMR Basic Information Time seen: Date 07/05/2019, Immediately upon arrival. History source: Patient. Arrival mode: Private vehicle, walking. History limitation: None. Additional information: Chief Complaint from Nursing Triage Note : Chief Complaint 07/05/2019 16:53 EDT Chief Complaint Pt states on she started having flu like sx and productive cough. . History of Present Illness The patient presents with difficulty breathing, cough and wheezing. The onset was 2 days ago. The course/duration of symptoms is constant. Degree at onset mild. Degree at present moderate. There are Exacerbating factorss including exertion and lying flat. There are Relieving factorss including sitting upright and oxygen. Risk factors consist of chronic obstructive pulmonary disease and pneumonia. Prior episodes: occasional. Therapy today: beta-agonist albuterol. Associated symptoms: fever, chills and cough. Review of Systems Constitutional symptoms: Fever, chills. Skin symptoms: Negative except as documented in HPI. Eye symptoms: Negative except as documented in HPI. ENMT symptoms: Negative except as documented in HPI. Respiratory symptoms: Shortness of breath, orthopnea, cough, Sputum production: Green. Cardiovascular symptoms: Negative except as documented in [...] negative. Health Status Allergies: Allergic Reactions (Selected) Severity Not Documented Cymbalta- Suicidal. Doxycycline- Vomiting. Haldol- Hives. Penicillin- Headache. Ultram- Hives. Vraylar- Suicidal thoughts. Nonallergic Reactions (Selected) Severity Not Documented Codeine- Respiratory depression.. Medications: (Selected) Inpatient Medications Ordered DuoNeb 0.5 mg-2.5 mg/3 mL inhalation solution: 3 mL, Nebulized Inhalation, 1-Time Sodium Chloride 0.9% bolus: 1,000 mL, 1,000 mL/Hr, IV Piggyback, 1-Time. Past Medical/ Family/ Social History Surgical history: BTL / uterine ablation in the month of 02/2014 at 43 Years. D&C (sp Ab) in the month of 12/2013 at 43 Years. removal fatty tumor left upper back in 2010 at 40 Years. Removal of ovarian cyst ([id number]). I&D to left finger. Hysterectomy ([id number]).. Family history: No family history items have been selected or recorded.. Social history: Social & Psychosocial Habits Alcohol 11/28/2013 Alcohol Use in Last Twelve Months No 09/17/2014 Alcohol Use History, Social Habits Yes Alcohol Use Comment states very rarely 04/11/2019 Alcohol Use History, Social Habits No Home/Environment 07/19/2016 Lives with: Significant other Nutrition/Health 02/13/2014 Caffeine intake amount: pot of coffee daily Substance Abuse 11/28/2013 Recreational Drug Use History No 04/11/2019 Recreational Drug Use History No Tobacco 03/29/2015 Tobacco Use Within Last Twelve Months Cigarettes Smoking Status Current every day smoker Years of Tobacco Use 30 Packs/Tins Daily 1 09/25/2018 Smoking Status 10 or more cigarettes (04/11/2019 Smoking Status 10 or more cigarettes (1/ Smokeless Tobacco Status Never Alternative Nicotine Product Use e-Cigarettes . Problem list: Active Problems (12) Arthritis Asthma Back pain COPD (chronic obstructive pulmonary disease) Fibromyalgia H/O: hysterectomy heart burn Irritable bowel syndrome Migraine Peripheral neuropathy PTSD (post-traumatic stress disorder) Sciatica . Physical Examination Vital Signs Vital Signs/Vital Measures 07/05/2019 17:02 EDT Peripheral Pulse Rate 120 bpm HI Respiratory Rate 20 Breaths/Min Oxygen Saturation 93 % LOW Oxygen Therapy Mode Nasal cannula 07/05/2019 16:53 EDT Systolic Blood Pressure 118 mmHg Diastolic Blood Pressure 77 mmHg Temperature Source Oral Temperature Mode Fahrenheit Temperature, Fahrenheit 99.3 Deg F Clinical Temperature, C 37.4 Deg C Peripheral Pulse Rate 124 bpm HI Respiratory Rate 20 Breaths/Min Oxygen Saturation 88 % LOW Oxygen Therapy Mode Room air . Measurements 07/05/2019 16:53 EDT Height Source Estimated Height Entry Format [place] Height/Length, RUSSIAN (ft) 5 ft Height/Length [place] 11 Inch CLINICALHEIGHT 180.34 cm [place] Body Weight 70.31 kg Weight Source, ED Critical estimated dosing weight Weight Entry Format [place] Weight [place] lb 200 lb CLINICALWEIGHT 90.91 kg Body Surface Area (BSA) 2.11 m2 Body Mass Index 28 kg/m2 HI . Oxygen Saturation 07/05/2019 17:02 EDT Oxygen Saturation 93 % LOW 07/05/2019 16:53 EDT Oxygen Saturation 88 % LOW . General: Alert, mild distress. Skin: Warm, dry, pink, intact. Head: Normocephalic, atraumatic. Neck: Supple, trachea midline, no tenderness, no JVD, no carotid bruit. Cardiovascular: No murmur, Normal peripheral perfusion, No edema, Tachycardia. Respiratory: Respirations: Tachypneic, respiratory distress mild, Breath sounds: Bilateral, anterior, posterior, wheezes present mild. Chest wall: No tenderness, No deformity. Musculoskeletal: Normal ROM, normal strength, no tenderness, no swelling, no deformity. Gastrointestinal: Soft, Nontender, Non distended, Normal bowel sounds, No organomegaly. Neurological: Alert and oriented to person, place, time, and situation, No focal neurological deficit observed. Lymphatics: No lymphadenopathy. Psychiatric: Cooperative. Medical Decision Making Differential Diagnosis: Pneumonia, congestive heart failure, chronic obstructive pulmonary disease, pulmonary edema, influenza. Documents reviewed: Emergency department nurses' notes. Electrocardiogram: Time 07/05/2019 17:34:00, rate 113, The Rhythm is sinus tachycardia. , The [place] is normal. , T wave No changes, Ectopy None, P wave and GA interval WNL, QT interval WNL, QRS interval WNL, Interpretation by Emergency Physician Interpreted by me contemporaneously with care. Results review: Lab results : Lab Results 07/05/2019 17:23 EDT Sodium Level 136 mmol/L Potassium Level 3.7 mmol/L Chloride Level 99 mmol/L Carbon Dioxide Level 27 mmol/L Anion Gap 14 Glucose Level 110 mg/dL HI Blood Urea Nitrogen 5 mg/dL LOW Creatinine Level 0.77 mg/dL eGFR 96 mL/min/1.73m2 eGFR NonAfrican 79 mL/min/1.73m2 Bun/Creatinine 6.494 NA Calcium Level 8.6 mg/dL Protein Total 7.2 Gram/dL Albumin Level 3.4 Gram/dL Globulin 3.8 Gram/dL A/G Ratio 0.9 LOW Bilirubin Total 0.5 mg/dL Alk Phos 74 Units/Liter AST 15 Units/Liter ALT 17 Units/Liter Lactic Acid Level 0.9 mmol/L Troponin I Ultra <0.017 ng/mL ProBNP 396 pg/mL HI WBC 14.8 K/uL HI RBC 4.43 Million/uL Hgb 13.4 Gram/dL Hct 40.7 % MCV 91.9 fL MCH 30.2 pg MCHC 32.9 Gram/dL Platelet Count 317 K/uL MPV 9.8 fL RDW 13.0 % Neut % 71.7 % HI Neut # 10.65 K/uL HI Lymph % 14.4 % LOW Lymph # 2.14 K/uL Piatt % 12.6 % HI [place] # 1.87 K/uL HI Eos % 0.6 % Eos # 0.09 K/uL Baso % 0.4 % Baso # 0.06 K/uL Slide Review No IG# 0 x10(3)/uL IG% 0 % Urine Type. U CleanCatch Urine Color Yellow Urine Appearance Hazy Urine Specific [place] 1.025 Urine pH Dipstick 5.5 LOW Urine Leukocyte Esterase Negative Urine Nitrite Negative Urine Protein Dipstick 30 Urine Glucose Dipstick Negative Urine Ketones Dipstick Trace Urine Urobilinogen Dipstick 0.2 EU/dL Urine Bilirubin Dipstick Small Urine Blood Dipstick Moderate Ur RBC 2-5 /HPF Ur WBC 2-5 /HPF Ur Bacteria Trace Ur Mucous 2+ Ur Squamous Epithelial Cells 5-10 /HPF . Chest X-Ray: Time reported 07/05/2019 18:56:00, interpretation by Emergency Physician, L perihilar infiltrate. Reexamination/ Reevaluation Time: 07/05/2019 18:57:00 . Notes: Evidence of pna on XR - given IV steroids, abx, IVF. Hospitalist at [facility] to accept. Impression and Plan Diagnosis Pneumonia - Discharge, Medical Hypoxia - Discharge, Medical Plan Condition: Stable. Disposition: Admit Admit/Transfer/Discharge: ED Transfer (Order): Start: 07/05/2019 19:00 EDT, For pneumonia, hypoxia, Unit Type: Other (use Special Instructions), [facility] Darci. Electronically signed by [place] [facility] [employer] Ii Assembler Cerner at 12/16/2022 10:50 AM CDT documented in this encounter Plan of Treatment Upcoming Encounters Date Type Department Care Team (Late st Contact Info) Description 11/03/2025 12:45 PM EST Office Visit [facility] Pulmonology - [address] [place] [address] Ben Barrios MD [address] [place] [address] documented as of this encounter Visit Diagnoses Not on filedocumented in this encounter Care Teams Pneumatic Tool Operator Relationship Specialty Start Date End Date Amie Pena MD [address] [place] [address] [place] [address] PCP - General Family Medicine 10/31/22 04/08/23 Marvel Grayson MD [address] [place] [address] [place] [address] PCP - General Family Medicine 05/17/23 Marvel Grayson [address] [place] [address] Family Practice 04/09/23 documented as of this encounter
--- OUTSIDE RECORDS SUMMARY | 2025-07-02 14:02 | XMS_ITS | Encounter Summary ---
Author Organization [employer] ([place], [place], [place], [place]) Address [address] [place] [address] Care Team Providers Care Lead Fabricator Name Role Phone Amie Pena MD Primary Care Provider [phone] Marvel Grayson MD Primary Care Provider [phone] Encounter Details Date Type Department Care Team (Late st Contact Info) Description 07/05/2019 Transcribed Document [facility] [place] Family Medicine [address] [place] [address] ProviderMik MD [address] [place] [address] Social History Tobacco Use Types Packs/Day Years Used Date Smoking Tobacco: Never Assessed Comments Unknown Sex and Gender Information Value Date Recorded Sex Assigned at Not on file Legal Sex Female 6:09 PM CDT Gender Identity Not on file Sexual Orientation Not on file documented as of this encounter Miscellaneous Notes * Cerner Conversion Note - Mik Thorne MD - 07/05/2019 10:38 PM CDT Patient: PRATIK SHABAZZ Age: 48 years Sex: Female : 1970 Associated Diagnoses: None Author: LI LUEVANO MD-INT Basic Information Source of history: Self. History limitation: None. Chief Complaint She transferred from [facility] because of shortness of breath, productive cough and fever History of Present Illness Ms. Carmen, 48 years old female with past medical history of COPD and fibromyalgia who was transferred from [facility] because of pneumonia. Patient states that since [...] of back surgery. No recent antibiotic. At [facility], she was tachycardic and sats 88 and 2 L of oxygen which is improved to 92 on 3 L of oxygen. Labs showed a leukocytosis of 14.8. Chest x-ray showed pneumonia. Patient received IV steroids and Levaquin. Review of Systems Constitutional: Fever, Chills, No sweats. Eye: No double vision. Ear/Nose/Mouth/Throat: No nasal congestion, No sore throat. Respiratory: Shortness of breath, Cough, Sputum production, Wheezing, No hemoptysis. Cardiovascular: Tachycardia, No chest pain, No palpitations, No bradycardia, No peripheral edema, No syncope. Gastrointestinal: No nausea, No vomiting, No diarrhea, No constipation, No heartburn, No abdominal pain. Genitourinary: No dysuria, No change in urine stream. Immunologic: No recurrent fevers. Musculoskeletal: No back pain, No neck pain, No joint pain. Integumentary: No rash, No pruritus, No petechiae. Neurologic: Alert and oriented X4, No confusion. Psychiatric: No anxiety, No depression. Health Status Current medications: Medications (1) Active Scheduled: (1) influenza virus vaccine, inactivated 0.5 mL, IntraMuscular, [id number] Continuous: (0) PRN: (0) Histories Past medical history COPD, she is on oxygen as needed Fibromyalgia Past surgical history Back surgery Hysterectomy D&C Family history Positive for heart disease Social history Smoker one packs per day for 41 years No alcohol or illicit drug use Physical Examination VS/Measurements Vital Signs/Vital Measures 07/05/2019 21:35 EDT Systolic Blood Pressure 112 mmHg Diastolic Blood Pressure 70 mmHg Mean Arterial Pressure (MAP)-BMDI 80 Temperature Source Oral Temperature Mode Fahrenheit Temperature, Fahrenheit 98.3 Deg F Clinical Temperature, C 36.8 Deg C Heart Rate Monitored 97 bpm Respiratory Rate 20 Breaths/Min Oxygen Saturation 95 % Oxygen Therapy Mode Nasal cannula Oxygen Flow Rate 3 Liter/Min 07/05/2019 19:44 EDT Systolic Blood Pressure 112 mmHg Diastolic Blood Pressure 59 mmHg LOW Peripheral Pulse Rate 103 bpm HI Heart Rate Monitored 103 bpm HI Respiratory Rate 18 Breaths/Min Oxygen Saturation 93 % LOW Oxygen Therapy Mode Nasal cannula Oxygen Flow Rate 3 Liter/Min 07/05/2019 19:00 EDT Peripheral Pulse Rate 118 bpm HI Heart Rate Monitored 118 bpm HI Oxygen Saturation 94 % Oxygen Therapy Mode Nasal cannula Oxygen Flow Rate 3 Liter/Min 07/05/2019 18:30 EDT Temperature Source Oral Temperature Mode Fahrenheit Temperature, Fahrenheit 99.0 Deg F Clinical Temperature, C 37.2 Deg C Peripheral Pulse Rate 114 bpm HI Heart Rate Monitored 118 bpm HI Oxygen Saturation 93 % LOW Oxygen Therapy Mode Nasal cannula Oxygen Flow Rate 3 Liter/Min 07/05/2019 18:00 EDT Systolic Blood Pressure 109 mmHg Diastolic Blood Pressure 61 mmHg Mean Arterial Pressure (MAP)-BMDI 80 Peripheral Pulse Rate 117 bpm HI Heart Rate Monitored 117 bpm HI Oxygen Saturation 95 % Oxygen Therapy Mode Nasal cannula Oxygen Flow Rate 3 Liter/Min 07/05/2019 17:30 EDT Systolic Blood Pressure 109 mmHg Diastolic Blood Pressure 61 mmHg Mean Arterial Pressure (MAP)-BMDI 80 Peripheral Pulse Rate 122 bpm HI Heart Rate Monitored 117 bpm HI Oxygen Saturation 91 % LOW Oxygen Flow Rate 3 Liter/Min 07/05/2019 17:02 EDT Peripheral Pulse Rate 120 [...] % LOW Oxygen Therapy Mode Room air General: Alert and oriented, Mild distress. Eye: Normal conjunctiva, Vision unchanged. HENT: Normocephalic. Neck: Supple. Respiratory: Respirations are non-labored, Symmetrical chest wall expansion, Decrease air entry bilateral.. Cardiovascular: Normal rate, Regular rhythm, No murmur, No edema. Gastrointestinal: Soft, Non-tender, Non-distended, Normal bowel sounds. Musculoskeletal: Normal range of motion, Normal strength, No swelling. Integumentary: Warm, No pallor, No rash. Neurologic: Alert, Oriented, No focal deficits. Cognition and Speech: Oriented, Speech clear and coherent. Psychiatric: Cooperative, Appropriate mood & affect. Review / Management Results review: No qualifying data available. No Radiology Results Found Impression and Plan Acute hypoxic respiratory failure Likely secondary to known pneumonia and COPD exacerbation Chest x-ray noted Cough, shortness of breath, fever, leukocytosis Breathing treatment IV steroid IV antibiotic Sputum culture Check pro-calcitonin Community acquired pneumonia Productive cough, shortness of breath, fever, leukocytosis Respiratory PCR Sputum culture Blood culture Continue IV Levaquin Acute COPD exacerbation Respiratory PCR IV steroid Breathing treatment IV antibiotic Fibromyalgia Continue home medication DVT prophylaxis, Lovenox She is full code Chart reviewed Labs reviewed Discussed with the patient Time spent is 47 minutes documented in this encounter Plan of Treatment Upcoming Encounters Date Type Department Care Team (Late st Contact Info) Description 11/03/2025 12:45 PM EST Office Visit [facility] Pulmonology - [address] [place] [id number] Ben Barrios MD [address] [place] [address] documented as of this encounter Visit Diagnoses Not on filedocumented in this encounter Care Teams Lead Fabricator Relationship Specialty Start Date End Date Amie Pena MD [facility] [place] [address] PCP - General Family Medicine 10/31/22 04/08/23 Marvel Grasyon MD [address] [place] [address] PCP - General Family Medicine 05/17/23 Marevl Grayson [address] [place] [address] Family Practice 04/09/23 documented as of this encounter
--- OUTSIDE RECORDS SUMMARY | 2025-07-02 14:02 | XMS_ITS | Encounter Summary ---
Author Organization [employer] ([place], [place], [place], [place]) Address [address] [place] [address] Care Team Providers Care Correctional Substance Abuse Counselor Name Role Phone Amie Pena MD Primary Care Provider [phone] Marvel Grayson MD Primary Care Provider [phone] Encounter Details Date Type Department Care Team (Late st Contact Info) Description 07/05/2019 Transcribed Document [facility] [place] [facility] [place] [address] ProviderMik MD [address] [place] [address] Social History Tobacco Use Types Packs/Day Years Used Date Smoking Tobacco: Never Assessed Comments Unknown Sex and Gender Information Value Date Recorded Sex Assigned at Not on file Legal Sex Female 6:09 PM CDT Gender Identity Not on file Sexual Orientation Not on file documented as of this encounter Miscellaneous Notes * Cerner Conversion Note - Mik ProviderMD - 07/05/2019 9:23 PM CDT Admission History, Adult Entered On: 07/05/2019 21:58 EDT Performed On: 07/05/2019 21:23 EDT by Max Pereyra, RN Advance Directive Patient has Advance Directive *Q : No, patient refuses Advance Directive information Max Pereyra RN - 07/05/2019 21:50 EDT Anesthesia/Transfusion History Family History of Anesthesia Reaction : No prior transfusion(s) Transfusion History : Prior anesthesia without reaction Family History of Anesthesia Reaction : None Max Pereyra RN - 07/05/2019 21:50 EDT Anticipated Discharge Needs Discharge To, Anticipated : Home Max Pereyra RN - 07/05/2019 21:50 EDT Education Topics, Admission Orientation DCP GENERIC CODE Advance Directives : Verbalizes understanding Assessment/Vital Signs : Verbalizes understanding Bed Control : Verbalizes understanding Call Light : Verbalizes understanding Diet/Room Service : Verbalizes understanding Rounding : Verbalizes understanding Siderails use/risks : Verbalizes understanding Television/Phone : Verbalizes understanding Max Pereyra RN - 07/05/2019 21:50 EDT Functional Assessment Living Situation : Home Patient Lives With : Sibling(s), Spouse Mobility Assistance Prior to Admission : Independent ANDRADE Hx Falls Immediate/Within 3 Months : No Current Home Treatments : Nebulizer treatments Home Equipment : None Max Pereyra RN - 07/05/2019 21:50 EDT General Info Preferred Name : Tiffanie or Tiffanie Dunn William Family/Rep/Phys Notified of Admit : No Emergency Contact #1 : rommel Shabazz Emergency Contact #1 Phone Number : [phone] Emergency Contact #1 Relationship : Emergency Contact #2 : Rebeca Emergency Contact #2 Phone Number : [phone] Emergency Contact #2 Relationship : sister Primary Language : Spanish Preferred Communication Mode : Verbal Communication Barrier : None Max Pereyra RN - 07/05/2019 21:50 EDT Fall Risk Scales ABCs Fall Injury Risk Identification : None ANDRADE Hx Falls Immediate/Within 3 Months : No Andrade Secondary Diagnosis : Yes ANDRADE Use of Ambulatory Aid : None ANDRADE IV Therapy or IV Access : Yes Andrade Gait/Transferring : Weak Andrade Mental Status : Oriented to own ability Andrade Fall Risk Score : 45 ANDRADE Fall Scale Risk Level : 25-45 Medium Risk [place] Fall Interventions : Adequate lighting, Assistive devices within reach, Bed in low position, Call device within reach, Fall prevention handout/education per facility policy, Frequent orientation to call device, Frequent orientation to surroundings, Hourly comfort/safety rounds, Non-slip footwear, Personal items within reach, Reinforced to call for assistance before getting out of bed, Room free of clutter/spills, Upper side-rails up, Wheels locked, Wires/Cords secured Max Pereyra RN - 07/05/2019 21:50 EDT Fall Risk Education Grid Alarms : Verbalizes understanding Assistive Equipment Use : Verbalizes understanding Bed Height/Stabilization : Verbalizes understanding Call light use : Verbalizes understanding Safety Aids : Verbalizes understanding Siderails use/risks : Verbalizes understanding Wait for Assistance : Verbalizes understanding Max Pereyra RN - 07/05/2019 21:50 EDT Health Histories Smoking Status : 10 or more cigarettes (1/2 pack or more)/day in last 30 days Smokeless Tobacco Status : Never Desires Tobacco Cessation Medication : No Reason for No Tobacco Cessation Medication : Refuses FDA approved medications Implant/Device Type, Manager Loss Prevention and Model : none Max Pereyra RN - 07/05/2019 21:50 EDT Social History (As Of: 07/05/2019 21:58:37 EDT) Tobacco: Use in Last 12 Months: Cigarettes. Smoking Status Current every day smoker. Years of Use: 30. Packs/Tins Daily: 1. (Last Updated: 03/29/2015 21:16:03 EDT by MARIAN YAO, RICKEY) 10 or more cigarettes (1/2 pack or more)/day in last 30 days Smoking Status. (Last Updated: 09/25/2018 17:08:54 EST by Tahira Coffey RN) 10 or more cigarettes (1/2 pack or [...] 04/11/2019 13:17:27 EDT by ALLA ZAPATA, RICKEY) Substance Abuse: Drug Use Hx: No. (Last Updated: 11/28/2013 12:39:50 EDT by DIALLO MCKEON RN) Drug Use Hx: No. (Last Updated: 04/11/2019 13:17:27 EDT by ALLA ZAPATA, RN) Nutrition/Health: Caffeine intake amount: pot of coffee daily. (Last Updated: 02/13/2014 15:40:18 EDT by LASHANDA WEBER RN) Home/Environment: Lives with Significant other. (Last Updated: 07/19/2016 17:26:14 EST by PANCHO SAEED RN) Height and Weight, Clinical Dosing Height Source : Chart Height Entry Format : Mathews Height, Feet : 5 ft(Converted to: 152 cm, 60 Inch) Height, Inches : 11 Inch(Converted to: 0 ft 11 Inch, 27.94 cm) Clinical Height : 180.34 cm Weight Source : Bed scale Weight Entry Format : Mathews Clinical Dosing Weight : 90.91 kg Weight, Pounds : 200 lb Body Surface Area (BSA) : 2.11 m2 Body Mass Index : 28 kg/m2 (HI) [place] Body Weight : 70 kg Max Pereyra RN - 07/05/2019 21:50 EDT Infectious Disease History Infectious Disease History : Chicken pox/Shingles, Influenza, Measles, Mumps, Other: staph LLF 02/2014 Fever/Chills Last 48 Hours : Yes Experiencing Infectious Disease Symptoms : Severe headache, Muscle pain, Weakness, Cough, Sore throat Travel To Regions with Travel Advisories : No Travel Outside [place] Within Last 30 Days : No Contact With Traveler to Advisory Region : No Tuberculosis Symptoms : Fever Max Pereyra RN - 07/05/2019 21:50 EDT Tetanus Immunization Status Previous Tetanus Immunizations : No qualifying data available. Tetanus Immunization : Greater than 10 years Max Pereyra RN - 07/05/2019 22:31 EDT Influenza Vaccine Asmt, Adult Previous Vaccines from Immunization Schedule : No qualifying data available. Influenza Immunization, Current Season : No Inactivated Flu Vaccine Contraindications : No contraindications to inactivated influenza vaccine Transplant Workup/Recent Transplant : No Order for Influenza Vaccine : Order for influenza vaccine sent to pharmacy Max Pereyra RN - 07/05/2019 22:31 EDT Pneumococcal Vaccine Previous Vaccines from Immunization Schedule : No qualifying data available. Pneumonia Immunization Received : Yes Max Pereyra RN - 07/05/2019 22:31 EDT Order Details Transport Mode Order Detail : Wheelchair Isolation Precautions Order Detail : Contact precautions Order Detail : 0 IV Order Detail : 1 Oxygen Order Detail : 1 Nurse Collect Order Detail : 0 Lift/Transfer : Independent Central Line Order Detail : No Room Service : Appropriate Arterial Line : No Max Pereyra RN - 07/05/2019 22:31 EDT Nutrition History Feeding Ability : Independent Adaptive Feeding Equipment : Regular Oral Medication Administration : By mouth Eating Poorly Due to Decreased Appetite : Yes Unplanned Weight Loss in Past 3-6 Months : No Malnutrition Screening Tool Total(mal) : 1 Malnutrition Screening Tool Risk Level : Patient not at risk Max Pereyra RN - 07/05/2019 22:31 EDT Psychosocial History Do You Have a History of the Following? : Anxiety, Depression, Post Traumatic Stress Disorder Currently in Unsafe Situation : No Tried to Harm Yourself in the Past? : No Thoughts of Harming/Killing Yourself : No Max Pereyra RN - 07/05/2019 22:31 EDT Sleep Apnea Risk Assmt Hx of [...] Sleep Apnea Risk Level Score : 1 Max Pereyra RN - 07/05/2019 22:31 EDT Valuables and Belongings Valuables and Belongings : Clothing, Personal items Clothing : Common streetwear Clothing Disposition : Bedside Personal Items : Cell phone Personal Items Disposition : Bedside Max Pereyra RN - 07/05/2019 22:31 EDT documented in this encounter Plan of Treatment Upcoming Encounters Date Type Department Care Team (Late st Contact Info) Description 11/03/2025 12:45 PM EST Office Visit [facility] Pulmonology - [address] [place] [address] Ben Barrios MD [address] [place] [address] documented as of this encounter Visit Diagnoses Not on filedocumented in this encounter Care Teams Correctional Substance Abuse Counselor Relationship Specialty Start Date End Date Amie Pena MD [address] [place] [address] PCP - General Family Medicine 10/31/22 04/08/23 Marvel Grayson MD [address] [place] [address] PCP - General Family Medicine 05/17/23 Marvel Grayson [address] [place] [address] Family Practice 04/09/23 documented as of this encounter
--- OUTSIDE RECORDS SUMMARY | 2025-07-02 14:02 | XMS_ITS | Encounter Summary ---
Author Organization [employer] ([place], [place], [place], [place]) Address [address] [place] [address] Care Team Providers Care Quality Control Inspector Heading Name Role Phone Amie Pena MD Primary Care Provider [phone] Marvel Grayson MD Primary Care Provider [phone] Encounter Details Date Type Department Care Team (Late st Contact Info) Description 07/06/2019 Transcribed Document [facility] [place] [address] [place] [address] ProviderMik MD [address] [place] [address] Social History Tobacco Use Types Packs/Day Years Used Date Smoking Tobacco: Never Assessed Comments Unknown Sex and Gender Information Value Date Recorded Sex Assigned at Not on file Legal Sex Female 6:09 PM CDT Gender Identity Not on file Sexual Orientation Not on file documented as of this encounter Miscellaneous Notes * Cerner Conversion Note - Historical ProviderMD - 07/06/2019 5:00 PM CONICAL MIXER Chart Check - Review Order Profile Entered On: 07/06/2019 17:44 EST Performed On: 07/06/2019 17:00 EST by Nasreen Fishman, RN Chart Check Powerplans Initiated/Discontinued as Appropriate : Yes All Active Orders Reviewed : Yes Nasreen Fishman RN - 07/06/2019 17:44 EST Electronically signed by Geneva Freeman [facility] Conversion Registered Art Therapist Cerner at 12/16/2022 10:40 AM CDT documented in this encounter Plan of Treatment Upcoming Encounters Date Type Department Care Team (Late st Contact Info) Description 11/03/2025 12:45 PM EST Office Visit [facility] Pulmonology - [address] [place] [address] Ben Barrios MD [address] [place] [address] documented as of this encounter Visit Diagnoses Not on filedocumented in this encounter Care Teams Quality Control Inspector Heading Relationship Specialty Start Date End Date Amie Pena MD [facility] [place] [address] PCP - General Family Medicine 10/31/22 04/08/23 Marvel Grayson MD [address] [place] [address] PCP - General Family Medicine 05/17/23 Marvel Grayson [address] [place] [address] Family Practice 04/09/23 documented as of this encounter
--- OUTSIDE RECORDS SUMMARY | 2025-07-02 14:02 | XMS_ITS | Patient Health Record ---
Author Organization [facility] Address [address] [place] [address] Care Team Providers Care Line O Scribe Operator Name Role Phone Marvel Grayson MD Unavailable [phone] Migration, Provider Unavailable Unavailable Allergies Allergen (clinical [...] Results Component Value Reference Range Flag Notes Urine Drug Screen Reviewed date:09/24/2024 09:26:01 AM Interpretation: Performing Lab:CB, [facility] [address], [facility] Sadiq White Notes/Report: Received Date: 0 0 0 0 0 0 0 TSH, 3RD GENERATION W/REFLEX TO FT4 Reviewed date:09/24/2024 09:26:01 AM Interpretation: Performing Lab:OW, [facility]Ogyvnwvjpf9769 Yadira Brandt, IqywvtfopfUD[address] Walter Carias Notes/Report: Received Date: 0 0 0 0 0 0 0 TSH W/REFLEX TO FT4 1.40 N Reference Range > or = 20 Years 0.40-4.50 Ranges First trimester 0.26-2.66 Second trimester 0.55-2.73 Third trimester 0.43-2.91 BASIC METABOLIC PANEL W/EGFR Reviewed date:09/24/2024 09:26:01 AM Interpretation: Performing Lab:[facility]ju2028 Yadira Brandt, CphyzbemorSP[address] Walter Carias Notes/Report: Received Date: 0 0 0 0 0 0 0 GLUCOSE 81 65-99 mg/dL N Fasting reference interval UREA NITROGEN (BUN) 10 7-25 mg/dL N CREATININE 0.62 0.50-1.03 mg/dL N EGFR 105 > OR = 60 mL/min/1.73m2 N BUN/CREATININE RATIO SEE NOTE: - (calc) Not Reported: BUN and Creatinine are within reference range. SODIUM 139 135-146 mmol/L N POTASSIUM 4.7 3.5-5.3 mmol/L N CHLORIDE 107 98-110 mmol/L N CARBON DIOXIDE 21 20-32 mmol/L N CALCIUM 9.7 8.6-10.4 mg/dL N CBC (INCLUDES DIFF/PLT) Reviewed date:09/24/2024 09:26:01 AM Interpretation: Performing Lab:[facility]Xijppihfjs9710 Yadira Brandt, CtdiaqfiueNZ[address] Walter Carias Notes/Report: Received Date: [id number] 0 0 0 0 0 0 0 [...] 10.2 7.5-12.5 fL N ABSOLUTE NEUTROPHILS 6721 0485-3649 cells/uL N ABSOLUTE LYMPHOCYTES 3465 850-3900 cells/uL N ABSOLUTE MONOCYTES 572 200-950 cells/uL N ABSOLUTE EOSINOPHILS 187 15-500 cells/uL N ABSOLUTE BASOPHILS 55 0-200 cells/uL N NEUTROPHILS 61.1 N LYMPHOCYTES 31.5 N MONOCYTES 5.2 N EOSINOPHILS 1.7 N BASOPHILS 0.5 N Urine Drug Screen Reviewed date:09/16/2024 09:46:32 PM Interpretation: Performing Lab: Notes/Report: benzodiazepine neg cocaine neg opiates pos methadone neg oxycodone neg Suboxone neg Amphetamine neg THC neg barbiturates neg MET (methamphetamines) neg MDMA neg PCP neg C-REACTIVE PROTEIN Reviewed date:09/24/2024 09:26:01 AM Interpretation: Performing Lab:, [facility]The [facility], [facility] ClinicAgghVP[address] Sadiq White Notes/Report: Received Date: [id number] 0 0 0 0 0 0 0 C-REACTIVE PROTEIN <3.0 <8.0 mg/L N URINALYSIS, REFLEX TO MICROS COPIC Reviewed date:09/24/2024 09:26:01 AM Interpretation: Performing Lab: [facility] Yadira Brandt, BgnjpbustcZA[address] Walter Carias Notes/Report: Received Date: [id number] 0 0 0 0 0 0 0 COLOR YELLOW YELLOW N APPEARANCE CLEAR CLEAR N SPECIFIC GRAVITY 1.010 1.001-1.035 N PH 5.5 5.0-8.0 N GLUCOSE NEGATIVE NEGATIVE N BILIRUBIN NEGATIVE NEGATIVE N KETONES NEGATIVE NEGATIVE N OCCULT BLOOD NEGATIVE NEGATIVE N PROTEIN NEGATIVE NEGATIVE N NITRITE NEGATIVE NEGATIVE N LEUKOCYTE ESTERASE NEGATIVE NEGATIVE N TORRES SCREEN IFA W/REFL TITER IFA Reviewed date:09/24/2024 09:26:01 AM Interpretation: Performing Lab: [facility] [place] [id number] [facility], [facility] ClinicNkvrYJ[address] Sadiq White Notes/Report: Received Date: [id number] 0 0 0 0 0 0 0 [...] AC-0: Negative International Consensus on TORRES Patterns (https://doi.org/10.1515/ jbrf-4066-6711) For additional information, please refer to http://SkyKick.BillGuard/faq/NHD374 (This link is being provided for informational/ educational purposes only.) Reason For Referral No Information Medications Medication [...] review and pick correct strength-formulat ion from Taaz options. If intended option is not shown, [...] review and pick correct strength-formulat ion from Taaz options. If intended option is not shown, [...] review and pick correct strength-formulat ion from Medispan options. If intended option is not shown, [...] Date Status Comme nts FLUZONE SDV 6M-64Y (3441-8302) IM Intramuscular 06/19/2024 Administered Influenza IM Intramuscular [...] Marital Status Children yes, 1 Pets yes [employer] Problems Problem Type SNOMED Code ICD Code Onset Dates Problem Status W/U Status Risk Notes Problem Anemia (491877135) Anemia, unspecified (D64.9) Active confirmed Problem Vitamin D deficiency (74315331) Vitamin D deficiency, unspecified (E55.9) Active confirmed Problem Tobacco user (399582397) Nicotine dependence, cigarettes, uncomplicated (F17.210) Active confirmed Problem Anxiety disorder (343731117) Anxiety disorder, unspecified (F41.9) Active confirmed Problem Atherosclerosis of coronary artery (527481407) Coronary atherosclerosis due to calcified coronary lesion (I25.84) Active confirmed Problem Spinal stenosis in cervical region (69495218) 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) Active confirmed Problem Chronic fatigue syndrome (disorder) (72985730) Chronic fatigue, unspecified (R53.82) Active confirmed Problem Solitary pulmonary nodule (829691456) Solitary pulmonary nodule (R91.1) Active confirmed Problem Long-term current use of antiplatelet drug (076425437336915) FDC (current) use of aspirin (Z79.82) Active confirmed Problem Vitamin B>12< deficiency anaemia (99031634) Vitamin B12 deficiency anemia, unspecified (D51.9) Active confirmed Problem Allergic rhinitis caused by pollen (disorder) (14305093) Allergic rhinitis due to pollen (J30.1) Active confirmed Problem Chronic obstructive pulmonary disease (55822703) Chronic obstructive pulmonary disease, unspecified (J44.9) Active confirmed Problem Gastro-esophageal reflux disease without esophagitis (640488603) Gastro-esophageal reflux disease without esophagitis (K21.9) Active confirmed Problem Spasm (52564408) Contracture of muscle, unspecified site (M62.40) Active confirmed Problem Obstructive sleep apnea syndrome (disorder) (90010746) Obstructive sleep apnea (adult) (pediatric) (G47.33) Active confirmed Problem Old myocardial infarction (1746337) Old myocardial infarction (I25.2) Active confirmed Vital Signs Heart Rate 74 /min 09/16/2024 Temperature 97.8 degrees Fahrenheit 09/16/2024 Oximetry 93 09/16/2024 Blood pressure diastolic 70 mm Hg 09/16/2024 Height 71.0 in 09/16/2024 Blood pressure systolic 138 mm Hg 09/16/2024 Weight 168.8 lbs 09/16/2024 BMI 23.54 09/16/2024 Encounters Encounter Location Date Provider Diagnosis [address] [address] 07/02/2024 Marvel Grayson Vitamin B12 deficien cy anemia, unspecified D51.9 [facility] [address] [place] [address] 07/17/2024 Marvel Grayson Vitamin B12 deficien cy anemia due to intrinsic factor deficiency D51.0 [facility] [address] [place] [address] 07/21/2024 Marvel Grayson Vitamin B12 deficien cy anemia, unspecified D51.9 [facility] [address] [place] [address] 11/13/2024 Marvel Grayson Vitamin B12 deficien cy anemia, unspecified D51.[address] [address] 02/07/2025 Provider Migration [facility] [address] [place] [address] 09/16/2024 Marvel Grayson Chronic obstructive pulmonary disease, unspecified J44.9 ; Nicotine dependence, cigarettes, uncomplicated F17.210 ; Coronary atherosclerosis due to calcified coronary lesion I25.84 ; Solitary pulmonary nodule R91.1 ; Other retirement (current) drug therapy Z79.899 and Chronic fatigue, unspecified R53.82 Assessments Encounter Date Diagnosis (ICD Code) Assessment [...] to calcified coronary lesion (ICD-10 - I25.84) 09/16/2024 Solitary pulmonary nodule (ICD-10 - R91.1) 09/16/2024 Other retirement (current) drug therapy (ICD-10 - Z79.899) 09/16/2024 Chronic fatigue, unspecified (ICD-10 - R53.82) Plan Of Treatment Pending Test Test Name Order Date Renin, Serum 02/27/2023 Aldosterone 02/27/2023 Cologuard 03/11/2024 Insurance Providers Payer Name Payer Address Payer Phone Subscriber Number Group Number Insured Name Patient Relationship to Insured Coverage Start Date Coverage End Date [employer] [address] [address] [place] [address] [id number] Tiffanie Shabazz Self - patient is the insured [employer] Attn Claims Department [address] [address] [place] [address] [id number] Tiffanie Shabazz Self - patient is the [...]
--- OUTSIDE RECORDS SUMMARY | 2025-07-02 14:02 | XMS_ITS | Encounter Summary ---
Author Organization [employer] ([place], [place], [place], [place]) Address [address] [place] [address] Care Team Providers Care Teamcenter Solution Architect Name Role Phone Amie Pena MD Primary Care Provider [phone] Marvel Grayson MD Primary Care Provider [phone] Encounter Details Date Type Department Care Team (Late st Contact Info) Description 07/05/2019 Transcribed Document [facility] Family Medicine [address] [place] [address] ProviderMik MD [address] [place] [address] Social History Tobacco Use Types Packs/Day Years Used Date Smoking Tobacco: Never Assessed Comments Unknown Sex and Gender Information Value Date Recorded Sex Assigned at Not on file Legal Sex Female 6:09 PM CDT Gender Identity Not on file Sexual Orientation Not on file documented as of this encounter Miscellaneous Notes * Cerner Conversion Note - Mik Thorne MD - 07/05/2019 8:38 PM CDT ED Event Note Entered On: 07/05/2019 20:39 EDT Performed On: 07/05/2019 20:38 EDT by Leah Valentine RN ED Event Note ED Event Date/Time : 07/05/2019 20:38 EDT ED Event Location : Assigned room ED Description of Event : Right arm became red, painful and itching while LEvaquin infusing. notified. Benadryl given. some improvement but pain, swelling and redness returned. MD notified. Order to stop Levaquin given. Leah Valentine RN - 07/05/2019 20:38 EDT Electronically signed by [place] [facility] Conversion Ingot Stripper Cerner at 12/16/2022 10:38 AM CDT documented in this encounter Plan of Treatment Upcoming Encounters Date Type Department Care Team (Late st Contact Info) Description 11/03/2025 12:45 PM EST Office Visit [facility] Pulmonology - [address] [place] [phone] Ben Barrios MD [address] [place] [address] documented as of this encounter Visit Diagnoses Not on filedocumented in this encounter Care Teams Teamcenter Solution Architect Relationship Specialty Start Date End Date Amie Pena MD [address] [place] [address] PCP - General Family Medicine 10/31/22 04/08/23 Marvel Grayson MD [address] [place] [address] PCP - General Family Medicine 05/17/23 Marvel Grayson [address] [place] [address] Family Practice 04/09/23 documented as of this encounter
--- OUTSIDE RECORDS SUMMARY | 2025-07-02 14:02 | XMS_ITS | Encounter Summary ---
Author Organization [employer] ([place], [place], [place], [place]) Address [address] [place] [address] Care Team Providers Care Fixture Relamper Name Role Phone Amie Pena MD Primary Care Provider [phone] Marvel Grayson MD Primary Care Provider [phone] Encounter Details Date Type Department Care Team (Late st Contact Info) Description 07/05/2019 Transcribed Document [facility] Family Medicine [address] [place] [address] ProviderMik MD [address] [place] [address] Social History Tobacco Use Types Packs/Day Years Used Date Smoking Tobacco: Never Assessed Comments Unknown Sex and Gender Information Value Date Recorded Sex Assigned at Not on file Legal Sex Female 6:09 PM CDT Gender Identity Not on file Sexual Orientation Not on file documented as of this encounter Miscellaneous Notes * Cerner Conversion Note - Historical ProviderMD - 07/05/2019 10:49 PM CDT Education-(VTE) / (DVT) Entered On: 07/06/2019 3:01 EST Performed On: 07/05/2019 22:49 EDT by Max Pereyra, RN Teaching/Learning Assessment Barriers To Learning : None evident Individuals Taught : Patient Readiness to Learn : Cooperative Readiness to Learn : Demonstration, Explanation Max Pereyra RN - 07/06/2019 3:01 EST Electronically signed by [facility] Conversion Bale Tie Machine Operator Cerner at 12/16/2022 10:37 AM CDT documented in this encounter Plan of Treatment Upcoming Encounters Date Type Department Care Team (Late st Contact Info) Description 11/03/2025 12:45 PM EST Office Visit [facility] Pulmonology - [address] [place] [phone] Ben Barrios MD [address] [place] [address] documented as of this encounter Visit Diagnoses Not on filedocumented in this encounter Care Teams Fixture Relamper Relationship Specialty Start Date End Date Amie Pena MD [address] [place] [address] [place] [address] PCP - General Family Medicine 10/31/22 04/08/23 Marvel Grayson MD [address] [place] [address] [place] [address] PCP - General Family Medicine 05/17/23 Marvel Grayson [address] [place] [address] Family Practice 04/09/23 documented as of this encounter
--- OUTSIDE RECORDS SUMMARY | 2025-07-02 14:02 | XMS_ITS | Encounter Summary ---
Author Organization [employer] ([place], [place], [place], [place]) Address [address] [place] [address] Care Team Providers Care Supervisor Last Model Department Name Role Phone Amie Pena MD Primary Care Provider [phone] Marvel Grayson MD Primary Care Provider [phone] Encounter Details Date Type Department Care Team (Late st Contact Info) Description 04/18/2019 Transcribed Document [facility] Radiology [address] [place] [address] Provider, Karthikeyan Houser MD Social History Tobacco Use Types Packs/Day Years Used Date Smoking Tobacco: Never Assessed Comments Unknown Sex and Gender Information Value Date Recorded Sex Assigned at Not on file Legal Sex Female 6:09 PM CDT Gender Identity Not on file Sexual Orientation Not on file documented as of this encounter Miscellaneous Notes * Cerner Conversion Note - oralia Thorne MD - 04/18/2019 3:22 PM EDT Patient Education Materials Follows: What to expect after the Procedure: After the procedure, it is common to have: ?? Pain and swelling. ?? A small amount of blood or clear fluid coming from your incision for up to 7 days ?? It is normal to have a moderate amount of bleeding from the site of the drain that was pulled on the morning after surgery. You can hold pressure on the area for 3-5 minutes and cover with a bandage as needed. Diet: ?? Resume usual diet ?? No alcoholic beverages while taking pain medication ?? Drink 8-10 glasses of water a day to prevent constipation from pain medication ?? Increase fiber to help prevent constipation. Straining can cause increased pressure and pain in your incision area ?? Increase protein to promote healing Driving: ?? Do not drive until your health care provider approves. Ask your health care provider when it is safe to drive if you have an immobilizer on your knee. ?? Do not drive or operate heavy machinery while taking prescription pain medicine. ?? Do not drive for 24 hours if you received a sedative. Activity: ??? No strenuous activity ??? Avoid high-impact activities, including running, jumping rope, and jumping jacks. ??? Avoid sitting for a long time without moving. Get up and move around at least every few hours. ?? Keep legs elevated while seated and place surgery leg on 2-3 pillows, this will decrease swelling ?? Continue using walker until cleared by physical therapy Back Activity ?? Minimize bending, twisting, and lifting. Bathing: ??? May shower ?? Do not take baths, swim, or use a hot tub for one month after surgery. Other: ?? Use ice therapy for 20-30 minutes at a time and leave off for 20-30 minutes at a time. Always keep a towel or cloth between the ice pack and your skin ?? Continue to use Incentive Spirometer 10 times an hour while awake for one month to help prevent pneumonia Contact a health care provider if: ??? You have more redness, swelling, or pain around your incision. ??? You have more fluid or blood coming from your incision. ??? Your incision or drain site feels warm to the touch. ??? You have pus or a bad smell coming from your incision. ??? You have a fever. ??? Your incision breaks open after your health care provider removes your sutures, skin glue, or adhesive tape. ??? Your prosthesis feels loose. ??? You have knee pain that does not go away. DVT: Blood Clot Blood clots are a common risk after an orthopedic surgery Symptoms: ?? Swelling of your leg or arm, especially if one side is much worse. ?? Warmth and redness of your leg or arm, especially if one side is much worse. ?? Pain in your arm or leg. If the clot is in your leg, symptoms may be more noticeable or worse when you stand or walk. ?? A feeling of pins and needles, if the clot is in the arm. The symptoms of a DVT that has traveled to the lungs (pulmonary embolism, PE) usually start suddenly and include: ??? Shortness of breath while active or at rest. ??? Coughing or coughing up blood or blood-tinged mucus. ??? Chest pain that is often worse with deep breaths. ??? Rapid or irregular heartbeat. ??? Feeling light-headed or dizzy. ??? Fainting. ??? Feeling anxious. ??? Sweating. There may also be pain and swelling in a leg if that is where the blood clot started. How is this prevented? Exercise regularly. For at least 30 minutes every day, engage in: ? Activity that involves moving your arms and legs. ? Activity that encourages good blood flow through your body by increasing your heart rate. ??? Exercise your arms and legs every hour during long-distance travel (over 4 hours). Drink plenty of water and avoid drinking alcohol while traveling. ??? Avoid sitting or lying in bed for long periods of time without moving your legs. ??? Maintain a weight that is appropriate for your height. Ask your health care provider what weight is healthy for you. ??? If you are a woman who is over 35 years of age, avoid unnecessary use of medicines that contain estrogen. These include control pills. ??? Do not smoke, especially if you take estrogen medicines. If you need help quitting, ask your health care provider. ??? Wear compression stockings (if told by your health care provider) to help prevent blood clots from forming. High Fiber/High Protein Diet High fiber foods: To prevent constipation ?? Grains Whole-grain breads. Multigrain cereal. Oats and oatmeal. Brown rice. Barley. Bulgur wheat. Millet. Bran muffins. Popcorn. Malott wafer crackers. ?? Vegetables Sweet potatoes. Spinach. Kale. Artichokes. Cabbage. Broccoli. Green peas. Carrots. Squash. ?? Fruits Berries. Pears. Apples. Oranges. Avocados. Prunes and raisins. Dried figs. ?? Meats and Other Protein Sources [place], kidney, preciado, and soy beans. Split peas. Lentils. Nuts and seeds. ?? Dairy Fiber-fortified yogurt. ?? Beverages Fiber-fortified soy milk. Fiber-fortified orange juice. ?? Other Fiber bars. High-protein foods: To promote healing High-protein foods contain 4 grams (4 g) or more of protein per serving. They include: ??? Beef, ground sirloin (cooked) - 3 oz have 24 g of protein. ??? Cheese (hard) - 1 oz has 7 g of protein. ??? Chicken breast, boneless and skinless (cooked) - 3 oz have 13.4 g of protein. ??? Cottage cheese - 1/2 cup has 13.4 g of protein. ??? Egg - 1 egg has 6 g of protein. ??? Fish, filet (cooked) - 1 oz has 6-7 g of protein. ??? Garbanzo beans (canned or cooked) - 1/2 cup has 6-7 g of protein. ??? Kidney beans (canned or cooked) - 1/2 cup has 6-7 g of protein. ??? Catherine (cooked) - 3 oz has 24 g of protein. ??? Milk - 1 cup (8 oz) has 8 g of protein. ??? Nuts (peanuts, pistachios, almonds) - 1 oz has 6 g of protein. ??? Peanut butter - 1 oz has 7-8 g of protein. ??? Pork tenderloin (cooked) - 3 oz has 18.4 g of protein. ??? Pumpkin seeds - 1 oz has 8.5 g of protein. ??? Soybeans (roasted) - 1 oz has 8 g of protein. ??? Soybeans (cooked) - 1/2 cup has 11 g of protein. ??? Soy milk - 1 cup (8 oz) has 5-10 g of protein. ??? Soy or vegetable analilia - 1 analilia has 11 g of protein. ??? Morton seeds - 1 oz has 5.5 g of protein. ??? Tofu (firm) - 1/2 cup has 20 g of protein. ??? Tuna (canned in water) - 3 oz has 20 g of protein. ?? Yogurt - 6 oz has 8 g of protein. Fall Prevention ?? Use night lights. ?? Install grab bars by the toilet and in the tub and shower. Do not use towel bars as grab bars. ?? Use non-skid mats or decals on the floor of the tub or shower. ?? If you need to sit down while you are in the shower, use a plastic, non-slip stool. ?? Keep the floor dry. Immediately clean up any water that spills on the floor. ?? Remove soap buildup in the tub or shower on a regular basis. ?? Remove throw rugs and other tripping hazards from the floor. ?? Place frequently used items in [id number] places ?? Keep electrical cables out of the way. ?? Do not leave any items on the stairs. ?? Make sure that there are handrails on both sides of the stairs. Fix handrails that are broken or loose. Make sure that handrails are as long as the stairways. ?? Check any carpeting to make sure that it is firmly attached to the stairs. Fix any carpet that is loose or worn. ?? Avoid having throw rugs at the top or bottom of stairways, or secure the rugs with carpet tape to prevent them from moving. ?? Wear closed-toe shoes that fit well and support your feet. Wear shoes that have rubber soles or low heels. ?? Use mobility aids as needed, such as canes, walkers, scooters, and crutches. ?? Turn on lights if it is dark. Replace any light bulbs that burn out. ?? Set up furniture so that there are clear paths. Keep the furniture in the same spot. ?? Be aware of any and all pets. ?? Review your medicines with your healthcare provider. Some medicines can cause dizziness or changes in blood pressure, which increase your risk of falling. Hand Washing You should wash your hands whenever you think they are dirty. You should also wash your hands: ??? After: ? Working or playing outside. ? Touching an animal or its toys or leash. ? Handling livestock. ? Using the bathroom. ? Using household sew on operator or toxic chemicals. ? Touching or taking out the garbage. ? Touching anything dirty around your home. ? Handling soiled clothes or rags. ? Taking care of a sick child. This includes touching used tissues, toys, and clothes. ? Sneezing, coughing, or blowing your nose. ? Using public transportation. ? Shaking hands. ? Using a phone, including your mobile phone. ? Touching money. ??? Before and after: ? Preparing food. ? Feeding a baby or young child. ? Eating. ? Visiting or taking care of someone who is sick. ? Changing a diaper. ? Changing a bandage (dressing) or taking care of an injury or wound. ? Giving or taking medicine. If soap and clean water are not available, use an alcohol-based wipe, spray, or hand gel. Use a hand-sanitizing agent that contains at least 60% alcohol. If you are preparing food, hand sanitizers are not recommended as a substitute for hand washing. documented in this encounter Plan of Treatment Upcoming Encounters Date Type Department Care Team (Late st Contact Info) Description 11/03/2025 12:45 PM EST Office Visit [facility] Pulmonology - [address] [place] [id number] Ben Barrios MD [address] [place] [address] documented as of this encounter Visit Diagnoses Not on filedocumented in this encounter Care Teams Supervisor Last Model Department Relationship Specialty Start Date End Date Amie Pena MD [facility] [address] [place] [address] PCP - General Family Medicine 10/31/22 04/08/23 Marvel Grayson MD [address] [place] [address] PCP - General Family Medicine 05/17/23 Marvel Grayson [address] [id number] Family Practice 04/09/23 documented as of this encounter
--- OUTSIDE RECORDS SUMMARY | 2025-07-02 14:02 | XMS_ITS | Encounter Summary ---
Author Organization [employer] ([place], [place], [place], [place]) Address [address] [place] [address] Care Team Providers Care Therapeutic Recreation Specialist Name Role Phone Amie Pena MD Primary Care Provider [phone] Marvel Grayson MD Primary Care Provider [phone] Encounter Details Date Type Department Care Team (Late st Contact Info) Description 07/05/2019 Transcribed Document [facility] Family Medicine [address] [place] [address] ProviderMik MD [address] [place] [address] Social History Tobacco Use Types Packs/Day Years Used Date Smoking Tobacco: Never Assessed Comments Unknown Sex and Gender Information Value Date Recorded Sex Assigned at Not on file Legal Sex Female 6:09 PM CDT Gender Identity Not on file Sexual Orientation Not on file documented as of this encounter Miscellaneous Notes * Cerner Conversion Note - Mik ProviderMD - 07/05/2019 10:49 PM CDT Evaluation, Physical Therapy Entered On: 07/06/2019 9:13 EST Performed On: 07/06/2019 9:05 EST by SANCHO POND, PT General Information, PT Visit Type, PT : Initial evaluation SANCHO POND, PT - 07/06/2019 9:09 EST Patient Orders : Order Date Order Ordering 07/05/2019 22:49 PT Evaluation and Treatment Ordered By: LI LUEVANO MD-INT Active Diagnoses : No Qualifying Diagnoses DEJAH SANCHO Cowart, PT - 07/06/2019 10:21 EST Therapy Diagnosis, PT : reduced mobility JOSE ALEJANDRO PONDACE ChuyitaZach, PT - 07/06/2019 9:09 EST Admission Date : 07/05/2019 21:24 Personal Devices : Personal Devices No Devices Recorded Assistive Devices : Assistive Devices No Devices Recorded SANCHO PONDZach, PT - 07/06/2019 10:21 EST General Information Comment, PT : Pt was admitted due to PNA. She also struggles with back pain, arthritis, COPD, Fibromyalgia, PTSD, and notes a lumbar fusion (by pt description) in April which remains tender on the L side. SANCHO POND, PT - 07/06/2019 9:09 EST General Status Patient Left Status : Up in chair, RN/PCT informed, Family/Visitors at bedside, Communication board completed, All needs met and within reach, Other: IV pole, O2 donned, Tele, O2 sat. Treatment End Time : 07/06/2019 9:28 EST Treatment Time : 23 Minute(s) Actual Treatment Time : 23 Minute(s) Patient Received Status : Supine in bed, Other: IV pole, O2 not donned, Tele, O2 sat. SANCHO POND, PT - 07/06/2019 10:21 EST Treatment Start Time : 07/06/2019 9:05 EST SANCHO POND, PT - 07/06/2019 9:09 EST History and Environment Living Situation, Therapy : Home Patient Lives With : Sibling(s), Spouse Professional Skilled Services : None Persons Providing Information : Patient Home Equipment Therapy, PT : Cane Cane : Cane, single point Home Setup : Other: duplex Bedroom Location : Main level Bathroom #1 Location : Main level Stairs : Yes Stair Location(s) : Outside Outside Stairs, Number of Steps : 2 Outside Stairs Comment : 2 small steps to enter her home, with a stoop between the steps. 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 Only uses the cane on days when she feels weak or unstable as if she might fall. Has home O2, and uses a O2 sat monitor at home to assess her O2 levels. SANCHO POND, PT - 07/06/2019 9:09 EST Intervention Summary Heart Rate/Pulse Pre-intervention : 110 bpm SpO2 Pre-Intervention : 90 % Therapist Assessment Pre-intervention : Pt on RA not wearing her O2. Heart Rate/Pulse During Intervention : 117 bpm SpO2 During Intervention : 90 % Therapist Assessment During Intervention : 2 L O2 via NC throughout gait. Heart Rate/Pulse Post-intervention : 104 bpm SpO2 Post-Intervention : 94 % Therapist Assessment Post-intervention : On NC at 2L at wall. SANCHO POND, PT - 07/06/2019 10:21 EST Upper Extremity Right UE Active ROM : WFL Right UE Strength : WFL Left UE Active ROM : WFL Left UE Strength : WFL SANCHO POND, PT - 07/06/2019 10:21 EST Lower Extremity RLE Active ROM : WFL Right LE Strength : WFL LLE Active ROM : WFL Left LE Strength : WFL SANCHO POND, PT - 07/06/2019 10:21 EST Functional Mobility Mobility Grid Supine to Sit : Supervision/set-up Sit to Stand : Rehab Minimal assistance (Comment: CGA [SANCHO POND, PT - 07/06/2019 10:21 EST] ) Stand to Sit : Rehab Minimal assistance (Comment: CGA [SANCHO POND, PT - 07/06/2019 10:21 EST] ) SANCHO POND, PT - 07/06/2019 10:21 EST Functional MobilityComment : O2 sats remained at 90% at EOB until pt donned O2 when they quickly improved to 95% at EOB. SANCHO POND, PT - 07/06/2019 10:21 EST Gait Training/Assessment, PT Gait Assistance Level : Assist, minimal Walking Distance : Pt using IV pole for support, PT with O2 and O2 sat monitor. Pt ambulated 75 feet with CGA, O2 sats slowly reducing from 95% at EOB to 90% as she ambulated (pt was also talking during ambulation depsite cuing to focus on breathing). Ambulatory Devices : Gait belt Left Lower Gait Deviation : Step length, decreased, Other: ER at B hip Right Lower Gait Deviation : Step length, decreased, Other: ER at B hips SANCHO POND, PT - 07/06/2019 10:21 EST Neurological/Sensory Light Touch Response : Intact Light Touch Comment : SANCHO WILSON, PT - 07/06/2019 10:21 EST Cognition Assessment, PT Orientation : Oriented x 4 SANCHO POND, PT - 07/06/2019 9:09 EST Plan of Care, PT PT Tx Plan/Goals Established w Patient : Yes PT Frequency Rehab : Daily PT Duration Rehab : Seven Days PT Treatments Planned : Gait training, Safety education, Therapeutic exercises, Transfer training SANCHO POND, PT - 07/06/2019 10:21 EST Senior Living Goals Other PT LTG Grid Goal #1 Goal #2 Other : Pt to ambulate 200 feet with O2 sats remaining above 92%, and SBA, to allow for home access upon her d/c. Pt to ambulate 200 feet without AD support (including IV pole) with SBA to assist with home access upon d/c. Date to Meet : 07/13/2019 EST 07/13/2019 EST Goal Status : Initial goal Initial goal SANCHO POND, PT - 07/06/2019 10:21 EST SANCHO POND, PT - 07/06/2019 10:21 EST Treatment Note Subjective Comment : Agreeable to PT treatment. Patient's Response to Treatment : Good Additional Objective Information : Pt educated on goals and PT treatment [place] [facility] Advised pt remain in chair until staff assistance with activity due to lines/tubes and fall risk. Pt with family present. No bed alarm activated before or after therapy. Educated on pursed lips breathing during gait. Assessment : Pt is a good rehab candidate to improve safe mobility impaired by her current cardiopulmonary status. Goals have been established. Increasing focus more on O2 sats with mobility than gait distance. Plan for Treatment : Begin daily therapy. SANCHO POND, PT - 07/06/2019 10:21 EST Pain Assessment Pain Score Post-Intervention. : 4 SANCHO POND, PT - 07/06/2019 9:09 EST Image 1 - Images currently included in the form version of this document have not been included in the text rendition version of the form. [facility] PT Charges PT Eval Moderate Complexity : 1 SANCHO POND, PT - 07/06/2019 10:21 EST documented in this encounter Plan of Treatment Upcoming Encounters Date Type Department Care Team (Late st Contact Info) Description 11/03/2025 12:45 PM EST Office Visit [facility] Pulmonology - [address] [place] [phone] Ben Barrios MD [address] [place] [address] documented as of this encounter Visit Diagnoses Not on filedocumented in this encounter Care Teams Therapeutic Recreation Specialist Relationship Specialty Start Date End Date Amie Pena MD [address] [place] [address] [place] [address] PCP - General Family Medicine 10/31/22 04/08/23 Marvel Grayson MD [address] [place] [address] PCP - General Family Medicine 05/17/23 Marvel Grayson [address] [place] [address] Family Practice 04/09/23 documented as of this encounter
--- OUTSIDE RECORDS SUMMARY | 2025-07-02 14:02 | XMS_ITS | Encounter Summary ---
Author Organization [employer] ([place], [place], [place], [place]) Address [address] [place] [address] Care Team Providers Care Top Lift Scourer Name Role Phone Amie Pena MD Primary Care Provider [phone] Marvel Grayson MD Primary Care Provider [phone] Encounter Details Date Type Department Care Team (Late st Contact Info) Description 07/05/2019 Transcribed Document [facility] Family Medicine [address] [place] [address] ProviderMik MD [address] [place] [address] Social History Tobacco Use Types Packs/Day Years Used Date Smoking Tobacco: Never Assessed Comments Unknown Sex and Gender Information Value Date Recorded Sex Assigned at Not on file Legal Sex Female 6:09 PM CDT Gender Identity Not on file Sexual Orientation Not on file documented as of this encounter Miscellaneous Notes * Cerner Conversion Note - Historical ProviderMD - 07/05/2019 7:06 PM CDT documented in this encounter Plan of Treatment Upcoming Encounters Date Type Department Care Team (Late st Contact Info) Description 11/03/2025 12:45 PM EST Office Visit [facility] Pulmonology - [address] [place] [phone] Ben Barrios MD [address] [place] [address] documented as of this encounter Visit Diagnoses Not on filedocumented in this encounter Care Teams Top Lift Scourer Relationship Specialty Start Date End Date Amie Pena MD [address] [place] [address] PCP - General Family Medicine 10/31/22 04/08/23 Marvel Grayson MD [address] [place] [address] PCP - General Family Medicine 05/17/23 Marvel Grayson [address] [place] [address] Family Practice 04/09/23 documented as of this encounter
--- OUTSIDE RECORDS SUMMARY | 2025-07-02 14:02 | XMS_ITS | Encounter Summary ---
Author Organization [employer] ([place], [place], [place], [place]) Address [address] [place] [address] Care Team Providers Care Audio/Visual Manager Name Role Phone Amie Pena MD Primary Care Provider [phone] Marvel Grayson MD Primary Care Provider [phone] Encounter Details Date Type Department Care Team (Late st Contact Info) Description 07/06/2019 Transcribed Document [facility] [place] [address] [place] [address] ProviderMik MD [address] [place] [address] Social History Tobacco Use Types Packs/Day Years Used Date Smoking Tobacco: Never Assessed Comments Unknown Sex and Gender Information Value Date Recorded Sex Assigned at Not on file Legal Sex Female 6:09 PM CDT Gender Identity Not on file Sexual Orientation Not on file documented as of this encounter Miscellaneous Notes * Cerner Conversion Note - Mik Thorne MD - 07/06/2019 9:37 AM [employer] Authorization Entered On: 07/06/2019 9:38 EST Performed On: 07/06/2019 9:37 EST by SHAAN RICHTER Rn-Utilization Review Primary Insurance Authorization Authorization and Policy Numbers : Insurance 1 Health Plan: [employer] Policy Number: [id number] Authorization Number: Insurance Primary Name : [employer] Authorization Status-Primary : Awaiting callback Reference Number-Primary : [id number] Authorized Service Begin Date-Primary : 07/05/2019 EDT Authorization Comments-Primary : Reference number retrieved from [facility] portal. Historical Authorization Comments-Primary : No Authorization Comments Found SHAAN RICHTER Rn-Utilization Review - 07/06/2019 9:37 EST Electronically signed by [place], [facility] Conversion Farmworker [employer] at 12/16/2022 10:37 AM CDT documented in this encounter Plan of Treatment Upcoming Encounters Date Type Department Care Team (Late st Contact Info) Description 11/03/2025 12:45 PM EST Office Visit [facility] Pulmonology - [address] [place] [phone] Ben Barrios MD [address] [place] [address] documented as of this encounter Visit Diagnoses Not on filedocumented in this encounter Care Teams Audio/Visual Manager Relationship Specialty Start Date End Date Amie Pena MD [address] [place], [place] [address] [address] PCP - General Family Medicine 10/31/22 04/08/23 Marvel Grayson MD [address] [place] [address] [place] [address] PCP - General Family Medicine 05/17/23 Marvel Grayson [address] [place] [address] Family Practice 04/09/23 documented as of this encounter
--- OUTSIDE RECORDS SUMMARY | 2025-07-02 14:02 | XMS_ITS | Encounter Summary ---
Author Organization [employer] ([place], [place], [place], [place]) Address [address] [place] [address] Care Team Providers Care Chief Scientist Name Role Phone Amie Pena MD Primary Care Provider [phone] Marvel Grayson MD Primary Care Provider [phone] Encounter Details Date Type Department Care Team (Late st Contact Info) Description 07/06/2019 Transcribed Document [facility] [place] Family Medicine [address] [place] [address] ProviderMik MD [address] [place] [address] Social History Tobacco Use Types Packs/Day Years Used Date Smoking Tobacco: Never Assessed Comments Unknown Sex and Gender Information Value Date Recorded Sex Assigned at Not on file Legal Sex Female 6:09 PM CDT Gender Identity Not on file Sexual Orientation Not on file documented as of this encounter Miscellaneous Notes * Cerner Conversion Note - Mik Thorne MD - 07/06/2019 12:03 PM BUYER AGENT Patient: PRATIK SHABAZZ Age: 48 years Sex: Female : 1970 Associated Diagnoses: None Author: YURIY CASEY MD Basic Information feels better this am still wheezing audibly family at bedside Review of Systems Constitutional: No fever, No chills. Eye: No visual disturbances. Ear/Nose/Mouth/Throat: No sore throat. Respiratory: Shortness of breath, Cough, Sputum production, Wheezing. Cardiovascular: No chest pain. Gastrointestinal: No nausea. Genitourinary: No dysuria. Endocrine: No cold intolerance. Immunologic: No recurrent fevers. Musculoskeletal: No back pain. Integumentary: No rash. Neurologic: Alert and oriented X4. Psychiatric: No anxiety. Health Status Current medications: Medications by Classification Antimicrobials cefTRIAXone + Sodium Chloride 0.9% intravenous solution 50 m - 1 Gram, IV Piggyback, [id number], infuse over 30 Minute(s), Routine azithromycin + Sodium Chloride 0.9% intravenous solution 250 - 500 mg, IV Piggyback, [id number], infuse over 120 Minute(s), Routine Immunology methylPREDNISolone (SOLU-Medrol) - 40 mg, IV Push, Inj, Q6H, Routine Anticoagulant enoxaparin (Lovenox) - 40 mg, SubCutaneous, Inj, [id number], Routine Respiratory albuterol-ipratropium (DuoNeb 0.5 mg-2.5 mg/3 mL inhalation - 3 mL, Nebulized Inhalation, Inh, RT_Q4H, Routine GI ondansetron (Zofran) - 4 mg, IV Push, Inj, Q4H, PRN for Nausea, Routine docusate (Colace) - 100 mg, Oral, Cap, BID, Routine polyethylene glycol 3350 (MiraLax) - 17 Gram, Oral, Powder, Daily, PRN for Constipation, Routine Pain Meds acetaminophen (Tylenol) - 650 mg, Oral, Tab, Q4H, PRN for Pain (Mild 1-3), Routine Problem list: Active Problems (12) Arthritis Asthma Back pain COPD (chronic obstructive pulmonary disease) Fibromyalgia H/O: hysterectomy heart burn Irritable bowel syndrome Migraine Peripheral neuropathy PTSD (post-traumatic stress disorder) Sciatica Physical Examination VS/Measurements Vitals Signs (last 24 hrs) Last Charted [...] Non-tender, No jugular venous distention. Respiratory: wheezing bilaterally. poor air entry. Cardiovascular: Normal rate, Regular rhythm, No murmur, Normal peripheral perfusion, No edema. Gastrointestinal: Soft, Non-tender, Normal bowel sounds. Genitourinary: No costovertebral angle tenderness. Musculoskeletal: Normal range of motion. Integumentary: Intact. Neurologic: Alert, Oriented, No focal deficits. Psychiatric: Cooperative, Appropriate mood & affect. Review / Management Results review: Labs (Last four charted values) WBC H 10.6 (JUL 06) HB 12.3 (JUL 06) HCT 39.4 (JUL 06) Plt 282 (JUL 06) Na 141 (JUL 06) K 4.4 (JUL 06) Cl 109 (JUL 06) CO2 25 (JUL 06) BUN 9 (JUL 06) Cr 0.64 (JUL 06) Glu R H 152 (JUL 06) Ca 8.7 (JUL 06) . Radiology results No Radiology Results Found Impression and Plan [...] reviewed Labs reviewed Discussed with the patient anticipate discharge soon in 1-2 days recommended to ambulate more and OOB in chair dulera added will monitor for improvement Time spent 35 minutes documented in this encounter Plan of Treatment Upcoming Encounters Date Type Department Care Team (Late st Contact Info) Description 11/03/2025 12:45 PM EST Office Visit [facility] Pulmonology - [address] [place] [id number] Ben Barrios MD [address] [place] [address] documented as of this encounter Visit Diagnoses Not on filedocumented in this encounter Care Teams Chief Scientist Relationship Specialty Start Date End Date Amie Pena MD [address] [place] [address] [place] [address] PCP - General Family Medicine 10/31/22 04/08/23 Marvel Grayson MD [facility] [place] [address] PCP - General Family Medicine 05/17/23 Marvel Grayson [address] [place] [address] Family Practice 04/09/23 documented as of this encounter
--- OUTSIDE RECORDS SUMMARY | 2025-07-02 14:02 | XMS_ITS | Encounter Summary ---
Author Organization [employer] ([place], [place], [place], [place]) Address [address] [place] [address] Care Team Providers Care Quality Measurement Specialist Name Role Phone Amie Pena MD Primary Care Provider [phone] Marvel Grayson MD Primary Care Provider [phone] Encounter Details Date Type Department Care Team (Late st Contact Info) Description 07/05/2019 Transcribed Document [facility] [place] [address] [place] [address] ProviderMik MD [address] [place] [address] Social History Tobacco Use Types Packs/Day [...] Mik ProviderMD - 07/05/2019 10:49 PM CDT Pain Assessment Entered On: 07/06/2019 10:58 EST Performed On: 07/06/2019 10:36 EST by Nasreen Fishman RN Intervention Information: acetaminophen Performed by Nasreen Fishman, RN on 07/06/2019 09:36:00 EST acetaminophen,650mg Oral,Pain (Mild 1-3) Pain Assessment Pain Assessment : Follow-up assessment Pain Scale Goal : 4 Pain Scale Used : 0-10 Scale Nasreen Fishman RN - 07/06/2019 10:58 EST Pain Scale Intensity : 3 Nasreen Fishman RN - 07/06/2019 10:58 EST Image 4 - Images currently included in the form version of this document have not been included in the text rendition version of the form. documented in this encounter Plan of Treatment Upcoming Encounters Date Type Department Care Team (Late st Contact Info) Description 11/03/2025 12:45 PM EST Office Visit [facility] Pulmonology - [address] [place] [address] Ben Barrios MD [address] [place] [address] documented as of this encounter Visit Diagnoses Not on filedocumented in this encounter Care Teams Quality Measurement Specialist Relationship Specialty Start Date End Date Amie Pena MD [address] [place] [address] [place] [address] PCP - General Family Medicine 10/31/22 04/08/23 Marvel Grayson MD [address] [place] [address] [place] [address] PCP - General Family Medicine 05/17/23 Marvel Grayson [address] [place] [address] Family Practice 04/09/23 documented as of this encounter
--- OUTSIDE RECORDS SUMMARY | 2025-07-02 14:02 | XMS_ITS | Encounter Summary ---
Author Organization [employer] ([place], [place], [place], [place]) Address [address] [place] [address] Care Team Providers Care Placement Manager Name Role Phone Amie Pena MD Primary Care Provider [phone] Marvel Grayson MD Primary Care Provider [phone] Encounter Details Date Type Department Care Team (Late st Contact Info) Description 04/19/2019 Transcribed Document [facility] [place] [address] [place] [address] ProviderMik MD [address] [place] [address] Social History Tobacco Use Types Packs/Day Years Used Date Smoking Tobacco: Never Assessed Comments Unknown Sex and Gender Information Value Date Recorded Sex Assigned at Not on file Legal Sex Female 6:09 PM CDT Gender Identity Not on file Sexual Orientation Not on file documented as of this encounter Miscellaneous Notes * Cerner Conversion Note - Mik ProviderMD - 04/19/2019 7:42 AM CDT UM Authorization Entered On: 04/19/2019 7:42 EDT Performed On: 04/19/2019 7:42 EDT by LESLY LEOS RN-Utilization Review Primary Insurance Authorization Authorization and Policy Numbers : Insurance 1 Health Plan: [employer] Policy Number: [id number] Authorization Number: [id number] Insurance Primary Name : [employer] Policy Number: [id number] Authorization Status-Primary : Admit approved Authorization Number-Primary : [id number] Number of Days Authorized-Primary : 1 Authorized Service Begin Date-Primary : 04/18/2019 EDT Authorized Service End Date-Primary : 04/18/2019 EDT Historical Authorization Comments-Primary : Comment 1: [employer] approved per availity for inpt 1 day -- Jesenia will f/u for clinicals herself (FREDERIC PHAM, RN-Utilization Review 04/09/2019 16:00) LESLY LEOS, RICKEY-Utilization Review - 04/19/2019 7:42 EDT Electronically signed by [facility] Conversion Seed Corn Manager Production Cerner at 12/16/2022 10:37 AM CDT documented in this encounter Plan of Treatment Upcoming Encounters Date Type Department Care Team (Late st Contact Info) Description 11/03/2025 12:45 PM EST Office Visit [facility] Pulmonology - [address] [place] [phone] Ben Barrios MD [address] [place] [address] documented as of this encounter Visit Diagnoses Not on filedocumented in this encounter Care Teams Placement Manager Relationship Specialty Start Date End Date Amie Pena MD [address] [place] [address] [place] [address] PCP - General Family Medicine 10/31/22 04/08/23 Marvel Grayson MD [address] [place] [address] PCP - General Family Medicine 05/17/23 Marvel Grayson [address] [place] [address] Family Practice 04/09/23 documented as of this encounter
--- OUTSIDE RECORDS SUMMARY | 2025-07-02 14:02 | XMS_ITS | Encounter Summary ---
Author Organization [employer] ([place], [place], [place], [place]) Address [address] [place] [address] Care Team Providers Care Tenon Machine Operator Name Role Phone Amie Pena MD Primary Care Provider [phone] Marvel Grayson MD Primary Care Provider [phone] Encounter Details Date Type Department Care Team (Late st Contact Info) Description 07/05/2019 Transcribed Document [facility] [place] [address] [place] [address] ProviderMik MD [address] [place] [address] Social History Tobacco Use Types Packs/Day Years Used Date Smoking Tobacco: Never Assessed Comments Unknown Sex and Gender Information Value Date Recorded Sex Assigned at Not on file Legal Sex Female 6:09 PM CDT Gender Identity Not on file Sexual Orientation Not on file documented as of this encounter Miscellaneous Notes * Cerner Conversion Note - Mik ProviderMD - 07/05/2019 4:49 PM CDT ED Assessment Entered On: 07/05/2019 17:21 EDT Performed On: 07/05/2019 17:18 EDT by Leah Valentine SUPERVISOR [employer]ANTS Quick Look Assessment Level of Consciousness : Alert, Awake Affect/Behavior : Appropriate, Calm, Cooperative Orientation : Oriented x 4 Skin Temperature : Warm Skin Description : Normal for ethnicity, Dry Leah Valentine RN - 07/05/2019 17:18 EDT ED General-Functional Assess Information Obtained From : Patient Preferred Communication Mode : Verbal Communication Barrier : None Primary Language : Austrian Any Spiritual/Cultural Needs or Requests : No Currently in Unsafe Situation : No Leah Valentine RN - 07/05/2019 17:18 EDT Patient/Family Door Manager Communication Primary Language : Austrian Leah Valentine RN - 07/05/2019 17:18 EDT Social Habits Smoking Status : 10 or more cigarettes (1/2 pack or more)/day in last 30 days Smokeless Tobacco Status : Never Desires Tobacco Cessation Medication : No Reason for No Tobacco Cessation Medication : Refuses FDA approved medications Desires Tobacco Cessation Calc : 1 Leah Valentine RN - 07/05/2019 17:18 EDT Social History (As Of: 07/05/2019 17:21:23 EDT) Tobacco: Use in Last 12 Months: Cigarettes. Smoking Status Current every day smoker. Years of Use: 30. Packs/Tins Daily: 1. (Last Updated: 03/29/2015 21:16:03 EDT by MARIAN YAO, RN) 10 or more cigarettes (1/2 pack [...] (Last Updated: 02/13/2014 15:40:18 EDT by LASHANDA WEBER, RN) Home/Environment: Lives with Significant other. (Last Updated: 07/19/2016 17:26:14 EST by PANCHO SAEED, RN) Respiratory Respiratory Assessment WDL : WDL with exceptions Cough : Congested Leah Valentine RN - 07/05/2019 17:18 EDT Breath Sounds Assessment Grid RAJAN : Clear LLL : Diminished RUL : Clear RML : Diminished RLL : Diminished Leah Valentine RN - 07/05/2019 17:18 EDT Respiratory Pattern Description : Regular Respiratory Assessment Comment : Pt c/o fever at home and low O2 saturations. Pt denies wearing O2 at home. C/o SOA. breathing even nonlabored.skinwdp. diminished bases noted.CTA upper lobes. HR reg.Pt requirin O2 via nasal cannula. states pain in chest with deep breath, Leah Valentine RN - 07/05/2019 17:18 EDT documented in this encounter Plan of Treatment Upcoming Encounters Date Type Department Care Team (Late st Contact Info) Description 11/03/2025 12:45 PM EST Office Visit [facility] Pulmonology - [address] [place] [phone] Ben Barrios MD [address] [place] [address] documented as of this encounter Visit Diagnoses Not on filedocumented in this encounter Care Teams Tenon Machine Operator Relationship Specialty Start Date End Date Amie Pena MD [address] [place] [address] PCP - General Family Medicine 10/31/22 04/08/23 Marvel Grayson MD [address] [place] [address] [place] [address] PCP - General Family Medicine 05/17/23 Marvel Grayson [address] [place] [address] Family Practice 04/09/23 documented as of this encounter
--- OUTSIDE RECORDS SUMMARY | 2025-07-02 14:02 | XMS_ITS | Encounter Summary ---
Author Organization [employer] ([place], [place], [place], [place]) Address [address] [place] [address] Care Team Providers Care Drive Thru Order Taker Name Role Phone Amie Pena MD Primary Care Provider [phone] Marvel Grayson MD Primary Care Provider [phone] Encounter Details Date Type Department Care Team (Late st Contact Info) Description 07/06/2019 Transcribed Document [facility] [place] Family Medicine [address] [place] [address] ProviderMik MD [address] [place] [address] Social History Tobacco Use Types Packs/Day Years Used Date Smoking Tobacco: Never Assessed Comments Unknown Sex and Gender Information Value Date Recorded Sex Assigned at Not on file Legal Sex Female 6:09 PM CDT Gender Identity Not on file Sexual Orientation Not on file documented as of this encounter Miscellaneous Notes * Cerner Conversion Note - Mik ProviderMD - 07/06/2019 2:00 AM SOLUTIONS OPERATOR Fruit And Vegetable Packer Details Entered On: 07/06/2019 2:59 EST Performed On: 07/06/2019 2:00 EST by Max Pereyra RN Order Details Transport Mode Order Detail : Wheelchair Isolation Precautions Order Detail : Contact precautions Order Detail : 0 IV Order Detail : 1 Oxygen Order Detail : 1 Nurse Collect Order Detail : 0 Lift/Transfer : Independent Central Line Order Detail : No Room Service : Appropriate Arterial Line : No Max Pereyra RN - 07/06/2019 2:59 EST Electronically signed by [facility] Conversion Force Variation Equipment Tender Cerner at 12/16/2022 10:46 AM CDT documented in this encounter Plan of Treatment Upcoming Encounters Date Type Department Care Team (Late st Contact Info) Description 11/03/2025 12:45 PM EST Office Visit [facility] Pulmonology - [address] [place] [phone] Ben Barrios MD [address] [place] [address] documented as of this encounter Visit Diagnoses Not on filedocumented in this encounter Care Teams Drive Thru Order Taker Relationship Specialty Start Date End Date Amie Pena MD [address] [place] [address] [place] [address] PCP - General Family Medicine 10/31/22 04/08/23 Marvel Grayson MD [address] [place] [address] [place] [address] PCP - General Family Medicine 05/17/23 Marvel Grayson [address] [place] [address] Family Practice 04/09/23 documented as of this encounter
--- OUTSIDE RECORDS SUMMARY | 2025-07-02 14:02 | XMS_ITS | Encounter Summary ---
Author Organization [employer] ([place], [place], [place], [place]) Address [address] [place] [address] Care Team Providers Care Jde Developer Name Role Phone Amie Pena MD Primary Care Provider [phone] Marvel Grayson MD Primary Care Provider [phone] Encounter Details Date Type Department Care Team (Late st Contact Info) Description 04/22/2019 Transcribed Document [facility] [place] Family [place] [address] [place] [address] ProviderMik MD [address] [place] [address] Social History Tobacco Use Types Packs/Day Years Used Date Smoking Tobacco: Never Assessed Comments Unknown Sex and Gender Information Value Date Recorded Sex Assigned at Not on file Legal Sex Female 6:09 PM CDT Gender Identity Not on file Sexual Orientation Not on file documented as of this encounter Miscellaneous Notes * Cerner Conversion Note - Mik ProviderMD - 04/22/2019 12:14 PM CDT Post Visit Phone Call Entered On: 04/22/2019 12:15 EDT Performed On: 04/22/2019 12:14 EDT by Nora Jha Rn Post Visit Phone Call Post Visit Phone Call History : First call, No answer Nora Jha Rn - 04/22/2019 12:14 EDT documented in this encounter Plan of Treatment Upcoming Encounters Date Type Department Care Team (Late st Contact Info) Description 11/03/2025 12:45 PM EST Office Visit [facility] Pulmonology - [address] [place] [phone] Ben Barrios MD [address] [place] [address] documented as of this encounter Visit Diagnoses Not on filedocumented in this encounter Care Teams Jde Developer Relationship Specialty Start Date End Date Amie Pena MD [address] [place], [place] [address] [address] PCP - General Family Medicine 10/31/22 04/08/23 Marvel Gryason MD [facility] [place] [address] PCP - General Family Medicine 05/17/23 Marvel Grayson [address] [place] [address] Family Practice 04/09/23 documented as of this encounter
--- OUTSIDE RECORDS SUMMARY | 2025-07-02 14:02 | XMS_ITS | Encounter Summary ---
Author Organization [employer] ([place], [place], [place], [place]) Address [address] [place] [address] Care Team Providers Care Chief Operator Name Role Phone Amie Pena MD Primary Care Provider [phone] Marvel Grayson MD Primary Care Provider [phone] Encounter Details Date Type Department Care Team (Late st Contact Info) Description 07/05/2019 Transcribed Document [facility] [place] [facility] [address] [place] [id number] ProviderMik MD [address] [place] [id number] Social History Tobacco Use Types Packs/Day [...] Historical ProviderMD - 07/05/2019 10:49 PM CDT Evaluation, Occupational Therapy Entered On: 07/07/2019 12:07 EST Performed On: 07/07/2019 12:03 EST by SOLA SHEARER OTR/Kevan General Information, OT Visit Type, OT : Initial evaluation SOLA SHEARER OTR/L - 07/07/2019 12:03 EST Patient Orders : Order Date Order Ordering 07/05/2019 22:49 OT Evaluation and Treatment Ordered By: LI LUEVANO MD-INT Active Diagnoses : 07/07/2019 12:00 Chronic obstructive pulmonary disease with (acute) exacerbation SOLA SHEARER OTR/Kevan - 07/07/2019 12:08 EST Therapy Diagnosis, OT : generalized weakness SOLA SHEARER OTR/Kevan - 07/07/2019 12:03 EST Admission Date : 07/05/2019 21:24 SOLA SHEARER OTR/Kevan - 07/07/2019 12:08 EST Assisted by, OT : Physical Therapist, Other: PT student SOLA SHEARER OTR/Kevan - 07/07/2019 12:03 EST Personal Devices : Personal Devices No Devices Recorded Assistive Devices : Assistive Devices No Devices Recorded SOLA SHEARER OTR/Kevan - 07/07/2019 12:08 EST General Information Comment, OT : pt is a pleasant 48 y.o. female admitted with acute hypoxic respiratory failure, pneumonia, COPD exacerbation, fibromyalgia. SOLA SHEARER OTR/Kevan - 07/07/2019 12:03 EST General Status Patient Received Status : Long sitting in bed, Other: O2, tele , IV Treatment Start Time : 07/07/2019 9:25 EST Patient Left Status : Up in chair, All needs met and within reach, Other: O2, tele, PILLOW FILLER/PCT Informed Comment : RN Ok'd to tx, ID and verified Treatment End Time : 07/07/2019 9:41 EST Treatment Time : 16 Minute(s) SOLA SHEARER OTR/Kevan - 07/07/2019 12:03 EST History and Environment, OT Home Equipment, Therapy : Cane Cane : Cane, single point SOLA SHEARER OTR/Kevan - 07/07/2019 12:08 EST Prior LOF Bathing, OT : Independent Prior LOF Bed Mobility : Independent Prior LOF Upper Body Dressing, OT : Independent Prior LOF Lower Body Dressing, OT : Independent Prior LOF Toileting : Independent Prior LOF Transfer : Independent Prior LOF Grooming, OT : Independent Prior LOF for IADLs, OT : Independent SOLA SHEARER OTR/Kevan - 07/07/2019 12:08 EST History and Environment Comment, OT : 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 Railing Outside : No SOLA SHEARER OTR/Kevan - 07/07/2019 12:03 EST Upper Extremity Right UE Active ROM : WFL Right UE Strength : WFL Left UE Active ROM : WFL Left UE Strength : WFL SOLA SHEARER OTR/Kevan 07/07/2019 12:08 EST Self Care/Home Management, OT Upper Body Dressing Assist Level, OT : Independent, complete Lower Body Dressing Assist Level, OT : Independent, modified Lower Body Dressing Device Comment, OT : seated to don socks Bed/Chair/WC Transfer Assist Level : Independent, modified Bed/Chair/WC Transfer Device : Belt, gait Bed/Chair/WC Device Comment : pushing IV pole SOLA SHEARER OTR/Kevan 07/07/2019 12:08 EST Mobility Device/Prosthesis/Wt Bearing Weight Bearing Status : As tolerated SOLA SHEARER OTR/Kevan 07/07/2019 12:08 EST Functional Mobility Mobility Grid Supine to Sit : Rehab Modified independence (Comment: HOB raised [SOLA SHEARER OTR/Kevan 07/07/2019 12:08 EST] ) Sit to Stand : Rehab Modified independence Bed to Chair : Rehab Modified independence Stand to Sit : Rehab Modified independence SOLA SHEARER OTR/Kevan 07/07/2019 12:08 EST Functional MobilityComment : gait belt, pt pushing IV pole mod I/S around unit, no LOB observed, pt demo good use of pacing self with activity and reports she monitors her O2 levels at home . mod I transfer back to bed SOLA SHEARER OTR/Kevan 07/07/2019 12:08 EST Activity Tolerance, OT Activity Comment : >2 minutes standing tolerance , paces self, O2 sats >90% throughout SOLA SHEARER OTR/Kevan - 07/07/2019 12:08 EST Intervention Summary O2 Pre-Intervention : on O2 SpO2 Pre-Intervention : 95 % O2 Post-Intervention : on O2 SpO2 Post-Intervention : 96 % SOLA SHEARER DORA/Kevan - 07/07/2019 12:08 EST Neurological/Sensory Overall Sensory Response : Intact SOLA SHEARER DORA/Kevan - 07/07/2019 12:08 EST Cognition Assessment, OT Orientation : Oriented x 4 SOLA SHEARER DORA/Kevan - 07/07/2019 12:08 EST Education OT Occupational Therapy Education Grid Activity of Daily Living Training : Verbalizes understanding, Returns demonstration Functional Mobility Training : Verbalizes understanding, Returns demonstration SOLA SHEARER DORA/Kevan - 07/07/2019 12:08 EST Indication Assessment, OT Occupational Therapy Indicated : No Occupational Therapy Not Indicated : No skilled services indicated SOLA SHEARER DORA/Kevan - 07/07/2019 12:08 EST Plan of Care, OT OT Tx Plan/Goals Established w Patient : No Reason OT Treatment/Plan Not Established : no further acute care OT needs at this time Other OT Treatment Provided This Date : ADL, pt education SOLA SHEARERDORA/Kevan - 07/07/2019 12:08 EST Treatment Note Subjective Comment : pt agrees to tx Additional Objective Information : eval 8 ADL 8 minutes Assessment : no further acute care OT needs at this time, pt close to her functional baseline, demo good understanding of energy conservation techniques for ADL/mobility Plan for Treatment : no further acute care Ot needs at this time, followed by PT SOLA SHEARERDORA/Kevan - 07/07/2019 12:08 EST Pain Assessment Pain Scaled Used : FACES Pain Score Pre-Intervention : 0 SOLA SHEARERDORA/Kevan - 07/07/2019 12:08 EST Image 1 - Images currently included in the form version of this document have not been included in the text rendition version of the form. [facility] OT Charges OT Selfcare/Hm Mgmt Ea 15 Min : 1 OT Eval Low Complexity : 1 SOLA SHEARERDORA/L - 07/07/2019 12:08 EST documented in this encounter Plan of Treatment Upcoming Encounters Date Type Department Care Team (Late st Contact Info) Description 11/03/2025 12:45 PM EST Office Visit [facility] Pulmonology - [address] [place] [address] Ben Barrios MD [address] [place], [place] [id number] documented as of this encounter Visit Diagnoses Not on filedocumented in this encounter Care Teams Chief Operator Relationship Specialty Start Date End Date Amie Pena MD [address] [place] [address] PCP - General Family Medicine 10/31/22 04/08/23 Marvel Grayson MD [address] [place] [address] [place] [address] PCP - General Family Medicine 05/17/23 Marvel Grayson [address] [place] [address] Family Practice 04/09/23 documented as of this encounter
--- OUTSIDE RECORDS SUMMARY | 2025-07-02 14:03 | XMS_ITS | Encounter Summary ---
Author Organization [employer] ([place], [place], [place], [place]) Address [address] [place] [address] Care Team Providers Care Deputy Assessor Name Role Phone Amie Pena MD Primary Care Provider [phone] Marvel Grayson MD Primary Care Provider [phone] Encounter Details Date Type Department Care Team (Late st Contact Info) Description 04/18/2019 Transcribed Document [facility] Family Medicine [address] [place] [id number] ProviderMik MD [address] [place] [id number] Social History Tobacco Use Types Packs/Day Years Used Date Smoking Tobacco: Never Assessed Comments Unknown Sex and Gender Information Value Date Recorded Sex Assigned at Not on file Legal Sex Female 6:09 PM CDT Gender Identity Not on file Sexual Orientation Not on file documented as of this encounter Miscellaneous Notes * Cerner Conversion Note - Historical ProviderMD - 04/18/2019 8:10 AM CDT SE[facility] Main OR IntraOp Summary Primary Physician: VU HAYS MD-ORT Finalized Date/Time: 07/16/20 14:19:44 Pt. Name: SHABAZZ TIFFANIE /Sex: 1970 Female Med Rec #: [id number] Physician: TASHA ROLDAN MD-INT Financial #: [id number] Pt. Type: I Room/Bed: [facility] Admit/Disch: 04/18/19 04:50:00 - 04/18/19 15:04:00 Institution: [facility] IntraOp Case Attendance Entry 1 Entry 2 Entry 3 Case Attendee VU HAYS MD-CARITO MEJIA PA ABNEY, MARSHALL, AIRCRAFT SKIN BURNISHER Role Performed Surgeon/Proceduralist, Physician front end assistant AIRCRAFT SKIN BURNISHER/Nurse Hair Or Beauty Salon Assistant First Time In 04/18/19 07:36:00 04/18/19 07:36:00 04/18/19 07:36:00 Time Out 04/18/19 09:19:00 04/18/19 09:19:00 04/18/19 09:19:00 Procedure Lumbar Fusion Posterior Lumbar Fusion Posterior Lumbar Fusion Posterior Other Attendee Superficial Wound Closed By: Last Modified By: GERMAIN CHRISTIAN, GERMAIN FOY, GERMAIN FOY RN 04/18/19 09:19:38 04/18/19 09:19:38 04/18/19 09:19:38 Entry 4 Entry 5 Entry 6 Case Attendee GERMAIN CHRISTIAN, BARRY CLAY, OR OTHER, ATTENDEE #1 TECH Role Performed Gunstock Spray Unit Adjuster, First Scrub, First Border Inspector, Ancillary Time In 04/18/19 07:36:00 04/18/19 07:36:00 04/18/19 07:36:00 Time Out 04/18/19 09:19:00 04/18/19 09:19:00 04/18/19 09:19:00 Procedure Lumbar Fusion Posterior Lumbar Fusion Posterior Lumbar Fusion Posterior Other Attendee NAILA PFLUGHAUPT Superficial Wound Closed By: Last Modified By: GERMAIN CHRISTIAN, GERMAIN FOY, GERMAIN FOY RN 04/18/19 09:19:38 04/18/19 09:19:38 04/18/19 09:19:38 Entry 7 Entry 8 Entry 9 Case Attendee OTHER, ATTENDEE #2 Iona Landa, OTHER, ATTENDEE #3 Sales And Operations Trainee Role Performed Vendor Lead Pressman Vendor Time In 04/18/19 07:36:00 04/18/19 07:36:00 04/18/19 07:36:00 Time Out 04/18/19 09:19:00 04/18/19 09:19:00 04/18/19 09:19:00 Procedure Lumbar Fusion Posterior Lumbar Fusion Posterior Lumbar Fusion Posterior Other Attendee JIMMIE MENDOZA Superficial Wound Closed By: Last Modified By: GERMAIN CHRISTIAN, GERMAIN FOY, GERMAIN FOY RN 04/18/19 09:19:38 04/18/19 09:19:38 04/18/19 09:19:38 Entry 10 Entry 11 Case Attendee OMA BRAVO CRNA Warner, Missy M, Rn Role Performed AIRCRAFT SKIN BURNISHER/Nurse Hair Or Beauty Salon Assistant Gunstock Spray Unit Adjuster, First Time In 04/18/19 08:40:00 04/18/19 08:55:00 Time Out 04/18/19 08:55:00 04/18/19 09:19:00 Procedure Lumbar Fusion Posterior Lumbar Fusion Posterior Other Attendee BREAK BREAK Superficial Wound Closed By: Last Modified By: GERMAIN CHRISTIAN, GERMAIN FOY RN 04/18/19 09:19:38 04/18/19 09:19:38 [facility] IntraOp Case Attendance Audit 04/18/19 09:19:38 Eyeglass Frames Inspector: CRMOSS Modifier: CRMOSS 1 <+> Time Out 1 <*> Procedure Lumbar Fusion Posterior 2 <+> Time Out 2 <*> Procedure Lumbar Fusion Posterior 3 <+> Time Out 3 <*> Procedure Lumbar Fusion Posterior 4 <+> Time Out 4 <*> Procedure Lumbar Fusion Posterior 5 <+> Time Out 5 <*> Procedure Lumbar Fusion Posterior 6 <+> Time Out 6 <*> Procedure Lumbar Fusion Posterior 7 <+> Time Out 7 <*> Procedure Lumbar Fusion Posterior 8 <+> Time Out 8 <*> Procedure Lumbar Fusion Posterior 9 <+> Time Out 9 <*> Procedure Lumbar Fusion Posterior 10 <*> Procedure Lumbar Fusion Posterior 11 <+> Time Out 11 <*> Procedure Lumbar Fusion Posterior 04/18/19 08:55:27 Eyeglass Frames Inspector: CRMOSS Modifier: CRMOSS 10 <+> Time Out 10 <*> Procedure Lumbar Fusion Posterior <+> 11 Case Attendee <+> 11 Role Performed <+> 11 Time In <+> 11 Procedure <+> 11 Other Attendee 04/18/19 08:44:23 Eyeglass Frames Inspector: CRMOSS Modifier: CRMOSS 1 <*> Procedure Lumbar Fusion Posterior 2 <*> Procedure Lumbar Fusion Posterior 3 <*> Procedure Lumbar Fusion Posterior 4 <*> Procedure Lumbar Fusion Posterior 5 <*> Procedure Lumbar Fusion Posterior 6 <*> Procedure Lumbar Fusion Posterior 7 <*> Procedure Lumbar Fusion Posterior 8 <*> Procedure Lumbar Fusion Posterior 9 <+> Time In 9 <*> Procedure Lumbar Fusion Posterior <+> 10 Case Attendee <+> 10 Role Performed <+> 10 Time In <+> 10 Procedure <+> 10 Other Attendee 04/18/19 08:04:43 Eyeglass Frames Inspector: CRMOSS Modifier: CRMOSS 1 <*> Procedure Lumbar Fusion Posterior 2 <*> Procedure Lumbar Fusion Posterior 3 <*> Procedure Lumbar Fusion Posterior 4 <*> Procedure Lumbar Fusion Posterior 5 <*> Procedure Lumbar Fusion Posterior 6 <*> Procedure Lumbar Fusion Posterior 7 <*> Procedure Lumbar Fusion Posterior 8 <+> Time In 8 <*> Procedure Lumbar Fusion Posterior <+> 9 Case Attendee <+> 9 Role Performed <+> 9 Procedure <+> 9 Other Attendee 04/18/19 07:58:01 Eyeglass Frames Inspector: CRMOSS Modifier: CRMOSS 1 <+> Time In 1 <*> Procedure Lumbar Fusion Posterior 2 <+> Time In 2 <*> Procedure Lumbar Fusion Posterior 3 <+> Time In 3 <*> Procedure Lumbar Fusion Posterior 4 <+> Time In 4 <*> Procedure Lumbar Fusion Posterior 5 <+> Time In 5 <*> Procedure Lumbar Fusion Posterior 6 <+> Time In 6 <*> Procedure Lumbar Fusion Posterior 7 <+> Time In 7 <*> Procedure Lumbar Fusion Posterior <+> 8 Case Attendee <+> 8 Role Performed <+> 8 Procedure [facility] IntraOp Case Times Entry 1 Patient In Room Time 04/18/19 07:36:00 Out Room Time 04/18/19 09:19:00 Anesthesia Start Time 04/18/19 07:36:00 Stop Time 04/18/19 09:19:00 Anesthesia Ready 04/18/19 07:36:00 Surgery / Procedure Times Start Time 04/18/19 08:10:00 Stop Time 04/18/19 09:08:00 Last Modified By: GERMAIN CHRISTIAN RN 04/18/19 09:19:33 [facility] IntraOp Case Times Audit 04/18/19 09:19:33 Eyeglass Frames Inspector: CRMOSS Modifier: CRMOSS <+> 1 Out Room Time <+> 1 Stop Time 04/18/19 09:12:31 Eyeglass Frames Inspector: CRMOSS Modifier: CRMOSS <+> 1 Stop Time 04/18/19 08:11:46 Eyeglass Frames Inspector: CRMOSS Modifier: CRMOSS <+> 1 Start Time [facility] IntraOp Communication Entry 1 Communication To Family/Significant other Comment START OF PROCEDURE Communication By GERMAIN CHRISTIAN RN Date and Time 04/18/19 08:12:00 Last Modified By: GERMAIN CHRISTIAN RN 04/18/19 08:12:18 [facility] IntraOp Communication Audit 04/18/19 08:12:18 Eyeglass Frames Inspector: CRMOSS Modifier: CRMOSS <+> 1 Date and Time [facility] IntraOp Counts Verification Entry 1 Procedure Lumbar Fusion Posterior Count Info Count Type Sponge, Sharps, Miscellaneous Counts Verification Baseline/pre-procedure Sequence Count Results Correct, surgeon notified Counts Performed By Count Performed By BARRY MOYER, OR (Scrub) TECH Count Performed By GERMAIN CHRISTIAN RN (RN) Last Modified By: GERMAIN CHRISTIAN RN 04/18/19 07:58:24 [facility] IntraOp Counts Final Entry 1 Procedure Lumbar Fusion Posterior Final Count Info Count Type Sponge, Sharps Counts Verification Skin Closure/end of Sequence procedure Count Results Correct, surgeon notified Counts Performed By Count Performed By BARRY MOYER, OR (Scrub) TECH Count Performed By Maria Krishna Rn (RN) Last Modified By: GERMAIN CHRISTIAN RN 04/18/19 09:03:42 [facility] IntraOp Cultures and Spec Summary Entry 1 Cultrures and Specimens Specimen Ordered: Yes Test(s) Routine/Path-Lab Requested/Final Disposition Last Modified By: GERMAIN CHRISTIAN RN 04/18/19 08:55:39 [facility] IntraOp Delays Entry 1 Delay Reason Other Duration 6 Minute(s) Comment SURGEON TALKING WITH PATIENT Last Modified By: GERMAIN CHRISTIAN RN 04/18/19 07:58:58 [facility] IntraOp Departure from OR Entry 1 Integumentary Assessment Integumentary WDL Assessment WDL Transfer/Handoff Transfer to PACU Phase I Handoff Method Bedside/Face to face Post-op Transport Bed (including Via specialty) Patient Transport GERMAIN CHRISTIAN RN, Accompanied by JODI FLORES CRNA Last Modified By: GERMAIN CHRISTIAN RN 04/18/19 07:59:05 [facility] IntraOp Dressing and Packing Entry 1 Type Dressing Wound Dressing Item Occlusive dressing, Skin Closure Glue Applied By CARITO WONG PA Other Comments AQUACEL AND COVADERM DRESSINGS APPLIED, DERMABOND PRINEO APPLIED Last Modified By: GERMAIN CHRISTIAN RN 04/18/19 07:59:17 [facility] IntraOp Fire Risk Assessment Entry 1 Fire Info Surgical Site or 0- No Incision Above the Xyphoid Open O2 Source 0- No (Mask or Cannula) Available Ignition 1- Yes (ESU, Laser, Light Source) Fire Risk 1 Assessment Score Fire Score Fire Risk Yes Assessment Complete Fire Risk GERMAIN CHRISTIAN RN Assessment Verified By Fire Risk 04/18/19 07:36:00 Assessment Verified Date/Time Fire Risk Standard Fire Yes Safety Precautions Followed Last Modified By: GERMAIN CHRISTIAN RN 04/18/19 07:59:46 [facility] IntraOp General Case Steel Placer 1 Case Information OR OR 01 [facility] Case Level 1 Room Verified Yes Wound Class I - Clean Specialty SN Neurosurgery Anesthesia Type General ASA Class 3 Diagnosis Preop Diagnosis L5-S1 STENOSIS, DDD Postop Same As Preop No Postop Diagnosis DICTATED BY MD Last Modified By: GERMAIN CHRISTIAN RN 04/18/19 08:04:09 [facility] IntraOp Implant Log Entry 1 Entry 2 Entry 3 Type Implant (Synthetic) Implant (Synthetic) Implant (Synthetic) Implant Log Implant Type Other Other Other Tissue Implant Type Implant TB DIVERTED 1 ALLGRFT TB DIVERTED 1 ALLGRFT TB STRAIGHT 1 ALLGRFT Identification [id number] Description Implant Quantity 2 1 1 Implant Site L5-S1 L5-S1 L5-S1 Implant Identification Model Number Implant [id number] Identification Serial Number Implant Identification Lot Number Implant Musculoskeletal Musculoskeletal Musculoskeletal Identification Transplant Fnd Transplant Fnd Transplant Fnd Ordnance Truck Installation Supervisor Name: Implant [id number] Identification Catalog Number Implant Size Implant Has an Yes Yes Yes Expiration Date Implant Expiration 11/14/20 10/16/20 06/29/20 Date Wasted Radioactive Material Time Implanted Tissue Implant Continue for Tissue Implant Documentation Tissue Identification Number Graft Prep Per Ordnance Truck Installation Supervisor Instructions: Tissue Preparation Method: Reconstitution Solution: Reconstitution Solution Lot Number Reconstitution Solution Expiration Date: Thawing Solution Thawing Solution Lot Number Thawing Solution Expiration Date Preparation Materials, Other Preparation Materials, Other Lot Number Preparation Materials, Other Expiration Date Tissue Prepared/Processed By Ordnance Truck Installation Supervisor Paperwork Completed Implant Type Comment Last Modified By: GERMAIN CHRISTIAN RN MOSS, CHRISTY, RN MOSS, CHRISTY, RN 04/18/19 08:25:52 04/18/19 09:12:10 04/18/19 09:12:10 Entry 4 Entry 5 Entry 6 Type Implant (Synthetic) Implant (Synthetic) Implant (Synthetic) Implant Log Implant Type Mesh Hardware Hardware Tissue Implant Type Implant IMP OPTIMESH SCR PEDICLE SCR SET [id number] Identification [id number] Description Implant Quantity 1 3 3 Implant Site L5-S1 L5 -S1 L5 - S1 Implant Identification Model Number Implant Identification Serial Number Implant [id number] Identification Lot Number Implant Spineology Spineology Spineology Identification Ordnance Truck Installation Supervisor Name: Implant [id number] Identification Catalog Number Implant Size Implant Has an Yes Yes Yes Expiration Date Implant Expiration 01/02/24 08/03/23 08/03/23 Date Wasted Radioactive Material Time Implanted Tissue Implant Continue for Tissue Implant Documentation Tissue Identification Number Graft Prep Per Ordnance Truck Installation Supervisor Instructions: Tissue Preparation Method: Reconstitution Solution: Reconstitution Solution Lot Number Reconstitution Solution Expiration Date: Thawing Solution Thawing Solution Lot Number Thawing Solution Expiration Date Preparation Materials, Other Preparation Materials, Other Lot Number Preparation Materials, Other Expiration Date Tissue Prepared/Processed By Ordnance Truck Installation Supervisor Paperwork Completed Implant Type Comment Last Modified By: GERMAIN CHRISTIAN RN MOSS, CHRISTY, RN MOSS, CHRISTY, RN 04/18/19 08:25:52 04/18/19 08:25:52 04/18/19 08:53:45 Entry 7 Entry 8 Entry 9 Type Implant (Synthetic) Implant (Synthetic) Implant (Synthetic) Implant Log Implant Type Hardware Hardware Hardware Tissue Implant Type Implant SCR SET [id number] SCR PEDICLE ARCHANA PERC FIX [id number] Identification [id number] Description Implant Quantity 1 1 1 Implant Site L5 - S1 L5- S1 L 5- S1 Implant Identification Model Number Implant Identification Serial Number Implant [id number] Identification Lot Number Implant Spineology Spineology Spineology Identification Ordnance Truck Installation Supervisor Name: Implant [id number] Identification Catalog Number Implant Size Implant Has an Yes Yes Yes Expiration Date Implant Expiration 1107/04/23 03/03/23 Date Wasted Radioactive Material Time Implanted Tissue Implant Continue for Tissue Implant Documentation Tissue Identification Number Graft Prep Per Ordnance Truck Installation Supervisor Instructions: Tissue Preparation Method: Reconstitution Solution: Reconstitution Solution Lot Number Reconstitution Solution Expiration Date: Thawing Solution Thawing Solution Lot Number Thawing Solution Expiration Date Preparation Materials, Other Preparation Materials, Other Lot Number Preparation Materials, Other Expiration Date Tissue Prepared/Processed By Ordnance Truck Installation Supervisor Paperwork Completed Implant Type Comment Last Modified By: GERMAIN CHRISTIAN RN MOSS, CHRISTY, RN MOSS, CHRISTY, RN 04/18/19 09:02:46 04/18/19 09:02:46 04/18/19 09:02:46 Entry 10 Entry 11 Type Implant (Synthetic) Implant (Synthetic) Implant Log Implant Type Hardware Hardware Tissue Implant Type Implant ARCHANA PERC FIX [id number] ARCHANA PERC FIX [id number] Identification Description Implant Quantity 1 1 Implant Site L 5- S1 L 5- S1 Implant Identification Model Number Implant Identification Serial Number Implant [id number] Identification Lot Number Implant Spineology Spineology Identification Ordnance Truck Installation Supervisor Name: Implant [id number] Identification Catalog Number Implant Size Implant Has an Yes Yes Expiration Date Implant Expiration 07/04/23 09/03/23 Date Wasted Radioactive Material Time Implanted Tissue Implant Continue for Tissue Implant Documentation Tissue Identification Number Graft Prep Per Ordnance Truck Installation Supervisor Instructions: Tissue Preparation Method: Reconstitution Solution: Reconstitution Solution Lot Number Reconstitution Solution Expiration Date: Thawing Solution Thawing Solution Lot Number Thawing Solution Expiration Date Preparation Materials, Other Preparation Materials, Other Lot Number Preparation Materials, Other Expiration Date Tissue Prepared/Processed By Ordnance Truck Installation Supervisor Paperwork Completed Implant Type Comment Last Modified By: GERMAIN CHRISTIAN RN MOSS, CHRISTY, RN 04/18/19 09:02:46 04/18/19 09:12:10 [facility] IntraOp Implant Log Audit 04/18/19 09:12:10 Eyeglass Frames Inspector: CRMOSS Modifier: CRMOSS <+> 9 Implant Identification Description <+> 9 Implant Identification Lot Number <+> 9 Implant Identification Ordnance Truck Installation Supervisor Name: <+> 9 Implant Expiration Date <+> 9 Implant Site <+> 9 Implant Quantity <+> 9 Implant Identification Catalog Number <+> 9 Implant Type <+> 9 Implant Has an Expiration Date <+> 9 Type <+> 10 Implant Identification Description <+> 10 Implant Identification Lot Number <+> 10 Implant Identification Ordnance Truck Installation Supervisor Name: <+> 10 Implant Expiration Date <+> 10 Implant Site <+> 10 Implant Quantity <+> 10 Implant Identification Catalog Number <+> 10 Implant Type <+> 10 Implant Has an Expiration Date <+> 10 Type <+> 11 Implant Identification Description <+> 11 Implant Identification Lot Number <+> 11 Implant Identification Ordnance Truck Installation Supervisor Name: <+> 11 Implant Expiration Date <+> 11 Implant Site <+> 11 Implant Quantity <+> 11 Implant Identification Catalog Number <+> 11 Implant Type <+> 11 Implant Has an Expiration Date <+> 11 Type 04/18/19 09:02:46 Eyeglass Frames Inspector: CRMOSS Modifier: CRMOSS <+> 5 Implant Identification Description <+> 5 Implant Identification Lot Number <+> 5 Implant Identification Ordnance Truck Installation Supervisor Name: <+> 5 Implant Expiration Date <+> 5 Implant Site <+> 5 Implant Quantity <+> 5 Implant Identification Catalog Number <+> 5 Implant Type <+> 5 Implant Has an Expiration Date <+> 5 Type <+> 6 Implant Identification Description <+> 6 Implant Identification Lot Number <+> 6 Implant Identification Ordnance Truck Installation Supervisor Name: <+> 6 Implant Expiration Date <+> 6 Implant Site <+> 6 Implant Quantity <+> 6 Implant Identification Catalog Number <+> 6 Implant Type <+> 6 Implant Has an Expiration Date <+> 6 Type <+> 7 Implant Identification Description <+> 7 Implant Identification Lot Number <+> 7 Implant Identification Ordnance Truck Installation Supervisor Name: <+> 7 Implant Expiration Date <+> 7 Implant Site <+> 7 Implant Quantity <+> 7 Implant Identification Catalog Number <+> 7 Implant Type <+> 7 Implant Has an Expiration Date <+> 7 Type <+> 8 Implant Identification Description <+> 8 Implant Identification Lot Number <+> 8 Implant Identification Ordnance Truck Installation Supervisor Name: <+> 8 Implant Expiration Date <+> 8 Implant Site <+> 8 Implant Quantity <+> 8 Implant Identification Catalog Number <+> 8 Implant Type <+> 8 Implant Has an Expiration Date <+> 8 Type 04/18/19 08:53:45 Eyeglass Frames Inspector: CRMOSS Modifier: CRMOSS <+> 4 Implant Identification Description <+> 4 Implant Identification Lot Number <+> 4 Implant Identification Ordnance Truck Installation Supervisor Name: <+> 4 Implant Expiration Date <+> 4 Implant Site <+> 4 Implant Quantity <+> 4 Implant Identification Catalog Number <+> 4 Implant Type <+> 4 Implant Has an Expiration Date <+> 4 Type [facility] IntraOp Intraoperative Assessment Entry 1 Handoff Method Bedside/Face to face Valid History / Yes Physical in Chart Preoperative Yes Checklist Reviewed/Evaluated Allergies Reviewed Yes Patient is Latex No Sensitive Isolation Not applicable Precautions Noted Level of WDL Consciousness (WDL = Alert, Oriented to Person, Place, and Time) Skin Assessment Yes Verified Present Upon IVs Arrival to OR Last Modified By: GERMAIN CHRISTIAN RN 04/18/19 08:04:50 [facility] IntraOp Intraoperative Equipment Entry 1 Type Equipment Equipment Equipment Gonzalez Suction System ID Number [id number] Setting HIGH Intraop Monitoring Electrocardiogram Three lead placement (ECG) Electrode Placement Blood Pressure Non-Invasive BP Device Source Blood Pressure Arm, left upper Location Pulse Oximeter Hand, right Probe Site Antiembolic Devices Antiembolic Devices Sequential compression device, knee high Antiembolic Device Bilateral Location Antiembolic Device 5750 ID Number Scopes Photo/Video Documentation Last Modified By: GERMAIN CHRISTIAN RN 04/18/19 08:11:18 [facility] IntraOp Medication Admin Entry 1 Entry 2 Medication/Irrigant PB irrigation 1000ml ANESTHETIC solution - [id number] JAVY-LIS Combo Med List Time Administered Route of IRRIGANT LOCAL Administration Dose Dose 1000 120 Unit of Measure ml ml Volume 1000ML Administered By VU HAYS MD-ORT VU HAYS MD-ORT Procedure Irrigation Irrigant Volume In Irrigant Volume Out Last Modified By: GERMAIN CHRISTIAN RN MOSS, CHRISTY, RN 04/18/19 08:12:51 04/18/19 08:12:51 [facility] IntraOp Patient Positioning Entry 1 Procedure Lumbar Fusion Posterior Body Position Prone Left Arm Position Secured on padded arm board Right Arm Position Secured on padded arm board Left Leg Position Uncrossed, parallel Right Leg Position Uncrossed, parallel Feet Uncrossed Yes Pressure Points Yes Checked Positioning Devices Jassi Table, Asher Frame, Arm Board, Safety Strap, Leg(s), Pillows, Head Rest Device Position PRONE VIEW HEAD REST USED BY ANESTHESIA, GEL PADS TO BOTH ARMS, PILLOWS UNDER LOWER LEGS Positioned By GERMAIN CHRISTIAN, RICKEY, JODI FLORES, GIANNI, CARTIO WONG PA, VU HAYS MD-ORT Position Verified Positioning Yes Verified by Anesthesia Positioning Yes Verified by Surgeon Last Modified By: GERMAIN CHRISTIAN RN 04/18/19 08:13:15 [facility] IntraOp Sign In Entry 1 Patient, Site, Yes Procedure Identified Surgical Consent Yes Confirmed Relevant Surgical Yes Documents Available Surgical Site Yes Marked by person performing procedure Anesthesia Machine Yes Check Completed Medication Checks Yes Completed Allergies Yes Airway Difficult No Airway/Aspiration Risk Difficult Yes Airway/Aspiration Intervention Equipment Available Blood Loss Risk No Blood Loss Yes Intervention Equipment Prepared and Ready Blood Identifiers Not applicable Verified Per Policy Hypothermia Risk Yes Warming Measures Yes Taken Last Modified By: GERMAIN CHRISTIAN RN 04/18/19 08:13:23 [facility] Intra Op Sign Out Entry 1 RN Confirmation Surgical Yes Procedure(s) Identified Instrument, Sponge Yes and Sharps Counts Correct/Documented Equipment Problems N/A Documented Specimen Labeled Yes Correctly Urinary Catheter N/A Documented in IView Safety Checklist Yes Elements Complete? RN Sign Out GERMAIN CHRISTIAN RN Signature RN Sign Out 04/18/19 09:19:00 Signature Date/Time Plan of Care Outcome - Fire Risk OUTCOME STATEMENT: Goal met Patient is free from injury related to surgical fire Plan of Care Outcome - Pt Positioning OUTCOME STATEMENT: Goal met Absence of signs and symptoms of positioning injury. Plan of Care Outcome - Skin Prep OUTCOME STATEMENT: Goal met Intraoperative care is consistent with measures to prevent infection Plan of Care Outcome - Xray/Images OUTCOME STATEMENT: Goal met Absence of observable signs or symptoms of radiation injury Plan of Care Outcome - Counts OUTCOME STATEMENT: Goal met Absence of signs and symptoms of injury related to extraneous objects Last Modified By: GERMAIN CHRISTIAN RN 04/18/19 09:19:28 [facility] IntraOp Skin Prep Entry 1 Procedure Lumbar Fusion Posterior Prescribed Yes Pre-Surgical Prep Completed Prep Area L5-S1 Intraop Prep Integumentary WDL Assessment WDL Prep Agents Chloraprep Prep by GERMAIN CHRISTIAN RN Hair Removal Methods No hair removal performed Last Modified By: GERMAIN CHRISTIAN RN 04/18/19 08:13:39 [facility] IntraOp Surgical Procedures Entry 1 Procedure Lumbar Fusion Posterior Additional L5-S1 LUMBAR POSTERIOR Procedure FUSION DECOMPRESSION Description Primary Procedure Yes Primary Surgeon VU HAYS MD-ORT Start 04/18/19 08:10:00 Stop 04/18/19 09:08:00 Anesthesia Type General Specialty SN Neurosurgery Wound Class I - Clean Last Modified By: GERMAIN CHRISTIAN RN 04/18/19 09:12:42 [facility] IntraOp Temp Regulation Devices Entry 1 Temp Regulation Temperature Forced Air Warming Regulation Device device Temperature Upper body Regulation Site Temperature JODI FLORES CRNA Regulation Device Applied by Last Modified By: GERMAIN CHRISTIAN RN 04/18/19 08:13:46 [facility] IntraOp Time Out Entry 1 Procedure to be Lumbar Fusion Posterior Performed Time Out Time Out Pause Time 04/18/19 08:09:00 All activity Yes suspended (unless life threatening emergency) Team Verbally Correct patient Confirms Information identity, Correct side and site are marked, Consent form is present and accurate, Agreement on the procedure to be done, Correct patient position, Relevant images/results properly labeled/appropriately displayed, Confirm antibiotics have been administered, Confirm the skin prep has dried, Confirm prosthesis/implant/devic e is present, Performed in location of procedure after prepped/draped Antibiotic Yes Prophylaxis Administered Or In Progress Within the Last 60 Minutes Beta Delaney N/A Administered Venous Yes Thromboembolism Prophylaxis Required Anticipated Critical Events Surgeon None expected Anesthesia Provider None expected Nursing Assures Sterility of instruments, Equipment concerns or issues, Implant Availability Essential Imaging Yes Labeled and Displayed Last Modified By: GERMAIN CHRISTIAN RN 04/18/19 08:14:32 [facility] IntraOp X-Ray and Images Entry 1 X-Ray/Imaging Type Fluoroscopy Fluoroscopy Type C-Arm Site L5-S1 Paranormal Investigator Name Gabriel Landasspat Snider, Sales And Operations Trainee Protective Devices Yes Used Last Modified By: GERMAIN CHRISTIAN RN 04/18/19 08:16:54 Case Comments <None> Finalized By: Ariella Desouza RN Document Signatures Signed By: GERMAIN CHRISTIAN RN 04/18/19 09:20 Ariella Desouza RN 07/16/20 14:19 Unfinalized History Date/Time Username Reason for Unfinalizing F[employer]ext Reason for Unfinalizing 07/16/20 14:19 REGINA Chart Audit Electronically signed by Karthikeyan Bean Conversion Health And Safety Coordinator Cerner at 12/16/2022 10:44 AM CDT documented in this encounter Plan of Treatment Upcoming Encounters Date Type Department Care Team (Late st Contact Info) Description 11/03/2025 12:45 PM EST Office Visit [facility] Pulmonology - [address] [place] [address] Ben Barrios MD [address] [place] [address] documented as of this encounter Visit Diagnoses Not on filedocumented in this encounter Care Teams Deputy Assessor Relationship Specialty Start Date End Date Amie Pena MD [address] [place] [address] PCP - General Family Medicine 10/31/22 04/08/23 Marvel Grayson MD [address] [place] [address] PCP - General Family Medicine 05/17/23 Marvel Grayson [address] [place] [address] Family Practice 04/09/23 documented as of this encounter
--- OUTSIDE RECORDS SUMMARY | 2025-07-02 14:03 | XMS_ITS | Encounter Summary ---
Author Organization [employer] ([place], [place], [place], [place]) Address [address] [place] [address] Care Team Providers Care Optical Model Maker And Tester Name Role Phone Amie Pena MD Primary Care Provider [phone] Marvel Grayson MD Primary Care Provider [phone] Encounter Details Date Type Department Care Team (Late st Contact Info) Description 04/14/2019 Transcribed Document [facility] [place] Medicine [address] [place] [address] ProviderMik MD [address] [place] [address] Social History Tobacco Use Types Packs/Day Years Used Date Smoking Tobacco: Never Assessed Comments Unknown Sex and Gender Information Value Date Recorded Sex Assigned at Not on file Legal Sex Female 6:09 PM CDT Gender Identity Not on file Sexual Orientation Not on file documented as of this encounter Miscellaneous Notes * Cerner Conversion Note - Mik ProviderMD - 04/14/2019 8:03 PM CDT ED Assessment Entered On: 04/14/2019 20:37 EDT Performed On: 04/14/2019 20:36 EDT by Radha Sherwood RN ED Quick Look Assessment Level of Consciousness : Alert Affect/Behavior : Appropriate Orientation : Oriented x 4 Skin Temperature : Warm Skin Description : Dry Radha Sherwood RN - 04/14/2019 20:36 EDT ED General-Functional Assess Information Obtained From : Patient Preferred Communication Mode : Verbal Communication Barrier : None Primary Language : Georgian Any Spiritual/Cultural Needs or Requests : No Currently in Unsafe Situation : No Radha Sherwood RN - 04/14/2019 20:36 EDT Social Habits Smoking Status : 10 or more cigarettes (1/2 pack or more)/day in last 30 days Smokeless Tobacco Status : Never Desires Tobacco Cessation Medication : No Reason for No Tobacco Cessation Medication : ED/procedural patient only Desires Tobacco Cessation Calc : 1 Radha Sherwood RN - 04/14/2019 20:36 EDT Social History (As Of: 04/14/2019 20:37:22 EDT) Tobacco: Use in Last 12 Months: [...] Updated: 07/19/2016 17:26:14 EST by PANCHO SAEED, RICKEY) documented in this encounter Plan of Treatment Upcoming Encounters Date Type Department Care Team (Late st Contact Info) Description 11/03/2025 12:45 PM EST Office Visit [facility] Pulmonology - [address] [place] [id number] Ben Barrios MD [address] [place] [address] documented as of this encounter Visit Diagnoses Not on filedocumented in this encounter Care Teams Optical Model Maker And Tester Relationship Specialty Start Date End Date Amie Pena MD [address] [place] [address] [place] [address] PCP - General Family Medicine 10/31/22 04/08/23 Marvel Grayson MD [address] [place] [address] [place] [address] PCP - General Family Medicine 05/17/23 Marvel Grayson [address] [place] [address] Family Practice 04/09/23 documented as of this encounter
--- OUTSIDE RECORDS SUMMARY | 2025-07-02 14:03 | XMS_ITS | Encounter Summary ---
Author Organization [employer] ([place], [place], [place], [place]) Address [address] [place] [address] Care Team Providers Care Land Reclamation Specialist Name Role Phone Amie Pena MD Primary Care Provider [phone] Marvel Grayson MD Primary Care Provider [phone] Encounter Details Date Type Department Care Team (Late st Contact Info) Description 04/18/2019 Transcribed Document [facility] [place] Family Medicine [address] [place] [address] ProviderMik MD [address] [place] [address] Social History Tobacco Use Types Packs/Day Years Used Date Smoking Tobacco: Never Assessed Comments Unknown Sex and Gender Information Value Date Recorded Sex Assigned at Not on file Legal Sex Female 6:09 PM CDT Gender Identity Not on file Sexual Orientation Not on file documented as of this encounter Miscellaneous Notes * Cerner Conversion Note - Mik ProviderMD - 04/18/2019 8:10 AM CDT [facility] Main OR PACU Summary Primary Physician: VU HAYS MD-ROCIO Finalized Date/Time: 04/18/19 10:33:55 Pt. Name: PRATIK SHABAZZ D.O.B./Sex: 1970 Female Med Rec #: [id number] Physician: VU HAYS MD-ORAgatha Financial #: [id number] Pt. Type: I Room/Bed: [facility] Admit/Disch: 04/18/19 04:50:00 - Institution: E Main OR PACU Case Times Entry 1 In PACU I 04/18/19 09:20:00 Ready for PACU 04/18/19 09:50:00 Discharge Discharge from PACU 04/18/19 10:30:00 I Last Modified By: Tati Galvez Rn 04/18/19 10:33:37 [facility] Main OR PACU Case Times Audit 04/18/19 10:33:37 Director Of Mobile Marketing: HALLEY Modifier: CARRIEC <+> 1 Discharge from PACU I [facility] Main OR PACU Acuity Entry 1 Start Time 04/18/19 09:50:00 Stop Time 04/18/19 10:30:00 Acuity Level [facility] PACU Acuity I Last Modified By: Tati Galvez Rn 04/18/19 10:33:54 [facility] Main OR PACU Acuity Audit 04/18/19 10:33:54 Director Of Mobile Marketing: CARRIEC Modifier: CARRIEC 1 <+> Start Time 1 <+> Stop Time 1 <*> Acuity Level [facility] PACU Acuity I 2 <-> Start Time 04/18/19 09:50:00 2 <-> Stop Time 04/18/19 10:30:00 2 <-> Acuity Level [facility] PACU Acuity I 04/18/19 10:33:49 Director Of Mobile Marketing: CARRIEC Modifier: CARRIEC <+> 2 Start Time <+> 2 Stop Time <+> 2 Acuity Level Finalized By: Tati Galvez Rn Document Signatures Signed By: Tati Galvez Rn 04/18/19 10:33 documented in this encounter Plan of Treatment Upcoming Encounters Date Type Department Care Team (Late st Contact Info) Description 11/03/2025 12:45 PM EST Office Visit [facility] Pulmonology - [address] [place] [id number] Ben Barrios MD [address] [place] [address] documented as of this encounter Visit Diagnoses Not on filedocumented in this encounter Care Teams Land Reclamation Specialist Relationship Specialty Start Date End Date Amie Pena MD [address] [place] [address] [place] [address] PCP - General Family Medicine 10/31/22 04/08/23 Marvel Grayson MD [address] [place] [address] [place] [address] PCP - General Family Medicine 05/17/23 Marvel Grayson [address], [place] [id number] Family Practice 04/09/23 documented as of this encounter
--- OUTSIDE RECORDS SUMMARY | 2025-07-02 14:03 | XMS_ITS | Encounter Summary ---
Author Organization [employer] ([place], [place], [place], [place]) Address [address] [place] [address] Care Team Providers Care Assistive Technology Trainer Name Role Phone Amie Pena MD Primary Care Provider [phone] Marvel Grayson MD Primary Care Provider [phone] Encounter Details Date Type Department Care Team (Late st Contact Info) Description 04/14/2019 Transcribed Document [facility] [place] [address] [place] [address] ProviderMik MD [address] [place] [address] Social History Tobacco Use Types Packs/Day Years Used Date Smoking Tobacco: Never Assessed Comments Unknown Sex and Gender Information Value Date Recorded Sex Assigned at Not on file Legal Sex Female 6:09 PM CDT Gender Identity Not on file Sexual Orientation Not on file documented as of this encounter Miscellaneous Notes * Cerner Conversion Note - Mik ProviderMD - 04/14/2019 9:39 PM CDT Patient: PRATIK SHABAZZ Age: 48 years Sex: Female : 1970 Associated Diagnoses: Swelling of joint, wrist, right; Phlebitis of left upper extremity Author: XOCHITL SHIELDS PA Basic Information Time seen: Date 04/14/2019. History source: Patient. Arrival mode: Private vehicle. History limitation: None. Additional information: Chief Complaint from Nursing Triage Note : Chief Complaint 04/14/2019 20:14 EDT Chief Complaint Pt had bllod drawn on 04/11/2019 on left hand/ wrist area and has noticed a knot below draw site. Pt states it hurt really bad when the needle was removed. . History of Present Illness The patient presents with left, wrist swelling. The character of symptoms is swelling. The patient's dominant hand is the right hand. Therapy today: none. Additional history: Patient underwent a blood draw 3 days ago because she is to undergo surgery on her back on Sunday by Dr. Herrera she complains of swelling to a vein on the dorsum of her left wrist where blood was drawn. She states that she is concerned that there is something in there. She states that the site is not painful but just feels swollen. She denies any pain in her left hand or proximal aspect of the arm. No chest pain or shortness of air.. Review of Systems Constitutional symptoms: Negative except [...] Medications: (Selected) Documented Medications Documented Breo Ellipta: 1 Puff, Inhalation, Daily, 0 Refill(s) Winchester 5 mg-325 mg oral tablet: 1 Tab, Oral, BID, 0 Refill(s) Spiriva Respimat 2.5 mcg/inh inhalation aerosol: 2 Puff, Inhalation, At Bedtime, 0 Refill(s) Ventolin HFA 90 mcg/inh inhalation aerosol: 2 Puff, Inhalation, QID, 0 Refill(s) albuterol continuous neb: 2.5 mg, Inhalation, At Bedtime, 0 Refill(s) gabapentin 300 mg oral capsule: 1 Cap, Oral, TID, 0 Refill(s). Past Medical/ Family/ Social History Medical history Reviewed as documented in chart. Surgical history: BTL / uterine ablation in the month of 02/2014 at 43 Years. D&C (sp Ab) in the month of 12/2013 at 43 Years. removal fatty tumor left upper back in 2010 at 40 Years. Removal of ovarian cyst (SNOMED CT 6822024249). I&D to left finger. Hysterectomy (SNOMED CT 061948018).. Family history: No family history items have [...] Use e-Cigarettes . Problem list: Active Problems (9) Arthritis Asthma Back pain COPD (chronic obstructive pulmonary disease) Fibromyalgia H/O: hysterectomy heart burn PTSD (post-traumatic stress disorder) Sciatica . Physical Examination Vital Signs Vital Signs/Vital Measures 04/14/2019 20:14 EDT Blood Pressure Location Arm, right upper Blood Pressure Source Non-Invasive BP Device Systolic Blood Pressure 140 mmHg Diastolic Blood Pressure 75 mmHg Temperature Source Oral Temperature Mode Fahrenheit Temperature, Fahrenheit 97.8 Deg F Clinical Temperature, C 36.6 Deg C Peripheral Pulse Rate 100 bpm Respiratory Rate 20 Breaths/Min Oxygen Saturation 94 % Oxygen Therapy Mode Room air . Measurements 04/14/2019 20:14 EDT Height Source Stated Height Entry Format [place] Height/Length, GAMBIAN (ft) 5 ft Height/Length GAMBIAN 11 Inch CLINICALHEIGHT 180.34 cm [place] Body Weight 70.31 kg Weight Source, ED Standing scale Weight Entry Format [place] Weight Yemeni lb 210 lb CLINICALWEIGHT 95.45 kg Body Surface Area (BSA) 2.15 m2 Body Mass Index 29.3 kg/m2 HI . Oxygen Saturation 04/14/2019 20:14 EDT Oxygen Saturation 94 % . General: Alert, no acute distress. Skin: Warm, dry. Cardiovascular: Regular rate and rhythm, No murmur, Arterial pulses: Left, radial, ulnar, normal, Capillary refill: Left, upper extremity, < 2 seconds. Respiratory: Lungs are clear to auscultation, respirations are non-labored, breath sounds are equal, Symmetrical chest wall expansion. Musculoskeletal: No tenderness or swelling noted to proximal aspect of right arm, Distal upper extremity: Left, wrist, range of motion normal, no tenderness, no erythema, no ecchymosis. Neurological: Alert and oriented to person, place, time, and situation. Psychiatric: Cooperative, appropriate mood & affect. Medical Decision Making Differential Diagnosis: Wrist pain, Superficial thrombophlebitis. Documents reviewed: Emergency department nurses' notes. Wrist x-ray findings No fracture, interpretation by Emergency Physician (No FB, reviewed by Dr Deleon). Notes: Disposition discussed with Dr. Deleon who agrees with plan of care.. Impression and Plan Diagnosis Phlebitis of left upper extremity - Discharge, Emergency medicine, Medical Plan Condition: Stable. Disposition: Medically cleared, Discharged Admit/Transfer/Discharge: Discharge (Order): Start: 04/14/2019 22:04 EDT, Discharge to: Home. Patient was given the following educational materials: Phlebitis. Follow up with: ; Follow up with primary care provider Within 2 to 3 days Apply warm compresses to site.; Return to Emergency Department Within As needed, Return to Emergency Department Within As needed; Follow up with primary care provider Within 2 to 3 days Apply warm compresses to site.; NO PRIM DR JOHANSEN Within 2 to 3 days. Counseled: Patient, Regarding diagnosis, Regarding diagnostic results, Regarding treatment plan, Patient indicated understanding of instructions. Notes: I certify that the MLP/PARA PROFESSIONAL performed the services as delegated. I agree with the assessment, treatment plan and disposition of the patient as recorded by the MLP.. documented in this encounter Plan of Treatment Upcoming Encounters Date Type Department Care Team (Late st Contact Info) Description 11/03/2025 12:45 PM EST Office Visit [facility] Pulmonology - [address] [place] [address] Ben Barrios MD [address] [place] [address] documented as of this encounter Visit Diagnoses Not on filedocumented in this encounter Care Teams Assistive Technology Trainer Relationship Specialty Start Date End Date Amie Pena MD [address] [facility] [address] PCP - General Family Medicine 10/31/22 04/08/23 Marvel Grayson MD [address] [place] [address] PCP - General Family Medicine 05/17/23 Marvel Grayson [address] [place] [address] Family Practice 04/09/23 documented as of this encounter
--- OUTSIDE RECORDS SUMMARY | 2025-07-02 14:03 | XMS_ITS | Encounter Summary ---
Author Organization [employer] ([place], [place], [place], [place]) Address [address] [place] [address] Care Team Providers Care Spray Drier Name Role Phone Amie Pena MD Primary Care Provider [phone] Marvel Grayson MD Primary Care Provider [phone] Encounter Details Date Type Department Care Team (Late st Contact Info) Description 04/14/2019 Transcribed Document [facility] [place] [address] [place] [address] ProviderMik MD [address] [place] [address] Social History Tobacco Use Types Packs/Day [...] ProviderMD - 04/14/2019 8:03 PM CDT ED Triage Entered On: 04/14/2019 20:20 EDT Performed On: 04/14/2019 20:14 EDT by GURDEEP HIGGINS RN ED Triage Across the Room Triage Date/Time : 04/14/2019 20:14 EDT Trauma Room Arrival Date and Time : 04/14/2019 20:14 EDT Chief Complaint : Pt had bllod drawn on 04/11/2019 on left hand/ wrist area and has noticed a knot below draw site. Pt states it hurt really bad when the needle was removed. GURDEEP HIGGINS RN - 04/14/2019 20:14 EDT DCP GENERIC CODE Tracking Acuity : 5 - Minor Tracking Group : [facility] ED [place] GURDEEP HIGGINS RN - 04/14/2019 20:14 EDT Mode of Arrival : Ambulatory Transported to ED by : Private vehicle To Room Via : Ambulate Accompanied By : Sibling ED Vital Signs : Document Height & Weight : Document ED Allergies : Document ED Infection Control : No ED Reason for Visit : Document Status : Hysterectomy Tetanus Immunization : Greater than 10 years GURDEEP HIGGINS RN - 04/14/2019 20:14 EDT Infectious Disease History Infectious Disease History : Chicken pox/Shingles, Influenza, Measles, Mumps, Other: staph LLF 02/2014 Fever/Chills Last 48 Hours : No Travel To Regions with Travel Advisories : No Travel Outside [place] Within Last 30 Days : No Contact With Traveler to Advisory Region : No Tuberculosis Symptoms : None GURDEEP HIGGINS RN - 04/14/2019 20:14 EDT Vital Signs ED Temperature Source : Oral Temperature Mode : Fahrenheit Temperature, Fahrenheit : 97.8 Deg F ED Pain : Yes Clinical Temperature, C : 36.6 Deg C Oxygen Therapy Mode : Room air Peripheral Pulse Rate : 100 bpm Respiratory Rate : 20 Breaths/Min Blood Pressure Location : Arm, right upper Blood Pressure Source : Non-Invasive BP Device Systolic Blood Pressure : 140 mmHg Diastolic Blood Pressure : 75 mmHg Oxygen Saturation : 94 % GURDEEP HIGGINS RN - 04/14/2019 20:14 EDT Allergy (As Of: 04/14/2019 20:20:52 EDT) Allergies (Active) codeine Estimated Onset Date: Unspecified ; Reactions: Respiratory depression ; Comments: Comment 1: Patient has had hydromorphone and tolerated without problem ; Created By: ALBERTO PHELPS, PharmD; Reaction Status: Active ; Category: Drug ; Substance: codeine ; Type: Side Effect ; Updated By: ALBERTO PHELPS, PharmD; Reviewed Date: 04/14/2019 20:19 EDT Cymbalta Estimated Onset Date: Unspecified ; Reactions: suicidal ; Created By: Ariella Hammer Rn; Reaction Status: Active ; Category: Drug ; Substance: Cymbalta ; Type: Allergy ; Updated By: Ariella Hammer Rn; Reviewed Date: 04/14/2019 20:19 EDT doxycycline Estimated Onset Date: Unspecified ; Reactions: Vomiting ; Created By: ALLA ZAPATA RN; Reaction Status: Active ; Category: Drug ; Substance: doxycycline ; Type: Allergy ; Updated By: ALLA ZAPATA RN; Reviewed Date: 04/14/2019 20:19 EDT Haldol Estimated Onset Date: Unspecified ; Reactions: Hives ; Created By: ALBERTO PHELPS, PharmJasmine; Reaction Status: Active ; Category: Drug ; Substance: Haldol ; Type: Allergy ; Updated By: ALBERTO PHELPS, PharmJasmine; Reviewed Date: 04/14/2019 20:19 EDT penicillin Estimated Onset Date: Unspecified ; Reactions: Headache ; Created By: ALLA ZAPATA RN; Reaction Status: Active ; Category: Drug ; Substance: penicillin ; Type: Allergy ; Updated By: ALLA ZAPATA RN; Reviewed Date: 04/14/2019 20:19 EDT Ultram Estimated Onset Date: Unspecified ; Reactions: Hives ; Created By: ALLA ZAPATA RN; Reaction Status: Active ; Category: Drug ; Substance: Ultram ; Type: Allergy ; Updated By: ALLA ZAPATA RN; Reviewed Date: 04/14/2019 20:19 EDT Vraylar Estimated Onset Date: Unspecified ; Reactions: Suicidal thoughts ; Created By: ALLA ZAPATA RN; Reaction Status: Active ; Category: Drug ; Substance: Vraylar ; Type: Allergy ; Updated By: ALLA ZAPATA RN; Reviewed Date: 04/14/2019 20:19 EDT Diagnosis Control ED (As Of: 04/14/2019 20:20:52 EDT) Problems(Active) Arthritis (SNOMED CT :7899045 ) Name of Problem: Arthritis ; Recorder: LASHANDA WEBER RN; Confirmation: Confirmed ; Classification: Patient Stated ; Code: [id number] ; Contributor System: Profig ; Last Updated: 02/13/2014 15:57 EDT ; Life Cycle Date: 02/13/2014 ; Life Cycle Status: Active ; Vocabulary: SNOMED CT Asthma (SNOMED CT :[id number] ) Name of Problem: Asthma ; Recorder: PANCHO SAEED RN; Confirmation: Confirmed ; Classification: Medical ; Code: [id number] ; Contributor System: PowerChart ; Last Updated: 02/12/2014 19:24 EDT ; Life Cycle Date: 11/28/2013 ; Life Cycle Status: Active ; Vocabulary: SNOMED CT Back pain (SNOMED CT :514754446 ) Name of Problem: Back pain ; Recorder: DENNISE ALVAREZ RN; Confirmation: Confirmed ; Classification: Medical ; Code: [id number] ; Contributor System: PowerChart ; Last Updated: 07/13/2014 14:28 EST ; Life Cycle Date: 07/13/2014 ; Life Cycle Status: Active ; Vocabulary: SNOMED CT COPD (chronic obstructive pulmonary disease) (SNOMED CT :68227061 ) Name of Problem: COPD (chronic obstructive pulmonary disease) ; Recorder: ALLA ZAPATA RN; Confirmation: Confirmed ; Classification: Medical ; Code: [id number] ; Contributor System: PowerChart ; Last Updated: 04/11/2019 13:15 EDT ; Life Cycle Date: 04/11/2019 ; Life Cycle Status: Active ; Vocabulary: SNOMED CT Fibromyalgia (SNOMED CT :[id number] ) Name of Problem: Fibromyalgia ; Recorder: PANCHO SAEED RN; Confirmation: Confirmed ; Classification: Medical ; Code: [id number] ; Contributor System: PowerChart ; Last Updated: 02/12/2014 19:24 EDT ; Life Cycle Date: 11/28/2013 ; Life Cycle Status: Active ; Vocabulary: SNOMED CT H/O: hysterectomy (SNOMED CT :453739124 ) Name of Problem: H/O: hysterectomy ; Recorder: HOWARD HU RN; Confirmation: Confirmed ; Classification: Medical ; Code: [id number] ; Contributor System: PowerChart ; Last Updated: 12/29/2016 21:54 EDT ; Life Cycle Date: 12/29/2016 ; Life Cycle Status: Active ; Vocabulary: SNOMED CT heart burn (SNOMED CT :59541821 ) Name of Problem: heart burn ; Recorder: MARIAN YAO, RICKEY; Confirmation: Confirmed ; Classification: Medical ; Code: [id number] ; Contributor System: Profig ; Last Updated: 01/20/2019 18:21 EDT ; Life Cycle Date: 03/29/2015 ; Life Cycle Status: Active ; Vocabulary: SNOMED CT PTSD (post-traumatic stress disorder) (SNOMED CT :15101628 ) Name of Problem: PTSD (post-traumatic stress disorder) ; Recorder: MARIAN YAO RN; Confirmation: Confirmed ; Classification: Medical ; Code: 46138203 ; Contributor System: Profig ; Last Updated: 03/29/2015 21:19 EDT ; Life Cycle Date: 03/29/2015 ; Life Cycle Status: Active ; Vocabulary: SNOMED CT Sciatica (SNOMED CT :84091146 ) Name of Problem: Sciatica ; Recorder: TRISH MCMAHON RN; Confirmation: Confirmed ; Classification: Medical ; Code: 75326500 ; Contributor System: Profig ; Last Updated: 05/24/2015 17:38 EDT ; Life Cycle Date: 05/24/2015 ; Life Cycle Status: Active ; Vocabulary: SNOMED CT Diagnoses(Active) Medical problem - minor Date: 04/14/2019 ; Diagnosis Type: Reason For Visit ; Confirmation: Complaint of ; Clinical Dx: Medical problem - minor ; Classification: Medical ; Clinical Service: Non-Specified ; Code: PNED ; Probability: 0 ; Diagnosis Code: [id number] ED Height and Weight Height Source : Stated Height Entry Format : Tyrrell Height, Feet : 5 ft(Converted to: 152 cm, 60 Inch) Height, Inches : 11 Inch(Converted to: 0 ft 11 Inch, 27.94 cm) Clinical Height : 180.34 cm Weight Source, ED : Standing scale Weight Entry Format : Tyrrell Weight, Pounds : 210 lb Clinical Dosing Weight : 95.45 kg Body Surface Area (BSA) : 2.15 m2 Body Mass Index : 29.3 kg/m2 (HI) Rebuck Body Weight (IBW) : 70.31 kg GURDEEP HIGGINS RN - 04/14/2019 20:14 EDT Pain Assessment Pain Assessment : Initial assessment Pain Scale Used : 0-10 Scale Location : Hand, right Onset : Constant Quality : Aching Pain Radiation : No GURDEEP HIGGINS RN - 04/14/2019 20:14 EDT Pain Scale Intensity : 2 GURDEEP HIGGINSRICKEY - 04/14/2019 20:14 EDT Image 4 - Images currently included in the form version of this document have not been included in the text rendition version of the form. documented in this encounter Plan of Treatment Upcoming Encounters Date Type Department Care Team (Late st Contact Info) Description 11/03/2025 12:45 PM EST Office Visit [facility] Pulmonology - [address] [place] [id number] Ben Barrios MD [address] [place] [address] documented as of this encounter Visit Diagnoses Not on filedocumented in this encounter Care Teams Spray Drier Relationship Specialty Start Date End Date Amie Pena MD [address] [place] [address] [place] [address] PCP - General Family Medicine 10/31/22 04/08/23 Marvel Gryason MD [facility] [place] [address] PCP - General Family Medicine 05/17/23 Marvel Grayson [address] [place] [address] Family Practice 04/09/23 documented as of this encounter
--- OUTSIDE RECORDS SUMMARY | 2025-07-02 14:03 | XMS_ITS | Encounter Summary ---
Author Organization [employer] ([place], [place], [place], [place]) Address [address] [place] [address] Care Team Providers Care Programmer Analyst Name Role Phone Amie Pena MD Primary Care Provider [phone] Marvel Grayson MD Primary Care Provider [phone] Encounter Details Date Type Department Care Team (Late st Contact Info) Description 04/18/2019 Transcribed Document [facility] [place] [address] [place] [address] ProviderMik MD [address] [place] [address] Social History Tobacco Use Types Packs/Day Years Used Date Smoking Tobacco: Never Assessed Comments Unknown Sex and Gender Information Value Date Recorded Sex Assigned at Not on file Legal Sex Female 6:09 PM CDT Gender Identity Not on file Sexual Orientation Not on file documented as of this encounter Miscellaneous Notes * Cerner Conversion Note - Mik ProviderMD - 04/18/2019 2:05 PM CDT Final Discharge Planning Entered On: 04/18/2019 14:05 EDT Performed On: 04/18/2019 14:05 EDT by GENNARO THOMAS, Care Management-Insurance Administrator Final Discharge Planning Discharge Arrangements : Patient Post-Acute Information Patient Name: PRATIK SHABAZZ Gender: Female : [birth year] Age: 48 Years No Post-Acute Placement(s) Listed No Post-Acute Service(s) Listed No [place] Referral(s) Listed Discharge To Care Management : Home/Residential/Residential or Self Care -01 GENNARO THOMAS, Care Management-Insurance Administrator - 04/18/2019 14:05 EDT documented in this encounter Plan of Treatment Upcoming Encounters Date Type Department Care Team (Late st Contact Info) Description 11/03/2025 12:45 PM EST Office Visit [facility] Pulmonology - [address] [place] [address] Ben Barrios MD [address] [place] [address] documented as of this encounter Visit Diagnoses Not on filedocumented in this encounter Care Teams Programmer Analyst Relationship Specialty Start Date End Date Amie Pena MD [address] [place], [place] [address]al[place] [address] PCP - General Family Medicine 10/31/22 04/08/23 Marvel Grayson MD [address] [place] [address] PCP - General Family Medicine 05/17/23 Marvel Grayson [address] [place] [address] Family Practice 04/09/23 documented as of this encounter
--- OUTSIDE RECORDS SUMMARY | 2025-07-02 14:03 | XMS_ITS | Clinical Summary ---
Author Organization [employer] ([place], [place], [place], [place]) Address [address] [place] [address] Care Team Providers Care Retail Warehouse Associate Name Role Phone Marvel Grayson MD Primary Care Provider [phone] Allergies Active Allergy Reactions Criticality Noted Date Comments Adhesive Other (See Comments) 07/03/2023 blisters Adhesive Tape Rash Low 07/03/2023 blisters Capsaicin-Methyl Bryce-Menthol Other (See Comments) 05/28/2025 Cariprazine High 10/25/2016 Other reaction(s): Suicidal thoughts Codeine Rash High 07/31/2011 Other reaction(s): Respiratory depression 1Patient has had hydromorphone and tolerated without problem Doxycycline Nausea And Vomiting High 02/05/2020 Duloxetine Other (See Comments) 10/25/2016 Other reaction(s): suicidal Haloperidol Rash,Anaphylaxis High 07/31/2011 Other reaction(s): Hives Levofloxacin Low 07/05/2018 Other reaction(s): Unknown - Low Severity Penicillins Other (See Comments) High 07/31/2011 Other reaction(s): Headache Tramadol Rash High 10/02/2012 Other reaction(s): Hives Medications aspirin 81 MG EC tablet 1 Tab, Oral, Chew Tab, Daily, 0 Refill(s) 10/25/19 Active nitroglycerin (NITROSTAT) 0.4 MG SL tablet 1 Tab, SubLINgual, Tab, Q5Min, PRN Chest Pain, # 100 Tab, 0 Refill(s), Pharmacy: [facility]/pharmacy #[id number], 180.34, cm, 10/23/21 13:50:00 EST, CLINICALHEIGHT, 88.64, kg, 10/23/21 13:50:00 EST, CLINICALWEIGHT 10/25/19 22 Active tiZANidine (ZANAFLEX) 2 MG tablet 1 Tab, Oral, Tab, Q8H, PRN as needed for muscle spasm, # 90 Tab, 0 Refill(s) 10/24/19 22 Active gabapentin (NEURONTIN) 300 MG capsule Take 1 capsule (300 mg total) by mouth 4 (four) times daily. Active loratadine (CLARITIN) 10 mg tablet TAKE 1 TABLET BY MOUTH EVERY DAY 30 tablet 1 02/06/20 23 Active HYDROcodone-aceta minophen (NORCO 7.5-325) 7.5-325 mg per tablet Take 1 tablet by mouth every 4 (four) hours as needed. 03/24/20 21 Active topiramate (TOPAMAX) 25 MG tablet Take 1 tablet (25 mg total) by mouth daily. 07/30/20 23 Active clonazePAM (KlonoPIN) 0.5 MG tablet 0.5 tab(s) orally 2 times a day for 28 days 06/20/20 24 Active metoprolol tartrate (LOPRESSOR) 25 MG tablet Take 1 tablet (25 mg total) by mouth 2 (two) times daily. 06/11/20 24 Active ondansetron (ZOFRAN-ODT) 4 MG disintegrating tablet Take 1 tablet (4 mg total) by mouth. 06/19/20 24 Active folic acid (FOLVITE) 1 MG tablet 1 tab(s) orally once a day for 90 days 06/24/20 24 Active cholecalciferol (Vitamin D3) 125 mcg (5,000 unit) tablet 1 cap(s) orally once a day for 90 days 06/24/20 24 Active meloxicam (MOBIC) 15 MG tablet Take 1 tablet (15 mg total) by mouth daily. 09/05/19 25 Active miscellaneous medical supply [facility] 11/13/19 25 Active budesonide (PULMICORT) 1 mg/2 mL nebulizer solution 2 mL by nebulizer 2 times a day for 30 days 09/16/19 25 Active promethazine-DM (PROMETHAZINE-DM) 6.25-15 mg/5 mL syrup 5 mL orally every 6 hours for 15 days 09/16/19 25 Active albuterol 90 mcg/actuation inhalerIndication s:COPD (chronic obstructive pulmonary disease) (HCC) Inhale 2 puffs by mouth every 4 (four) hours as needed for wheezing. 1 Inhaler 11/28/19 25 026 Active ipratropium-albut [place] (DUO-NEB) 0.5 mg-3 mg(2.5 mg base)/3 mL nebulizer solutionIndicatio ns:COPD with acute exacerbation (HCC) Inhale 3 mLs by nebulization every 4 (four) hours as needed for wheezing or shortness of breath. 240 mL 11/28/19 25 026 Active roflumilast (DALIRESP) 250 mcg tabletIndications :COPD (chronic obstructive pulmonary disease) (HCC),Chronic bronchitis, unspecified chronic bronchitis type (HCC),Pulmonary emphysema, unspecified emphysema type Take 1 tablet (250 mcg total) by mouth daily. 30 tablet 01/13/20 25 Active HYDROcodone-aceta minophen (NORCO) 10-325 mg per tablet Take 1 tablet by mouth every 6 (six) hours EVERY 6 HOURS. Active atorvastatin (LIPITOR) 40 MG tablet Take 1 tablet (40 mg total) by mouth daily ONCE A. Active cefdinir (OMNICEF) 300 mg capsuleIndication s:Community acquired bacterial pneumonia Take 1 capsule (300 mg total) by mouth 2 (two) times daily. 14 capsule 05/28/20 25 Active fluticasone-umecl idin-vilanter (Trelegy Ellipta) 100-62.5-25 mcg dsdvIndications:C hronic obstructive pulmonary disease, unspecified COPD type (HCC) Inhale 1 puff by mouth daily. 60 each 05/29/20 25 Active predniSONE (DELTASONE) 20 MG tabletIndications :Community acquired bacterial pneumonia Take 3 tablets (60 mg total) by mouth daily for 7 days Look-alike/Soun d-alike medication. 21 tablet 05/28/20 25 025 Active Problems Problem Noted Date Diagnosed Date Megaloblastic anemia due to vitamin B12 deficien cy 08/21/2024 Acute exacerbation of chronic obstructive airway s disease 08/17/2024 Acute exacerbation of chronic obstructive pulmon sarah disease 08/17/2024 Cervical stenosis of spinal canal 03/14/2024 03/14/2024 Gastro-esophageal reflux disease without esophag itis 03/10/2024 03/10/2024 Malignant tumor of adrenal gland 08/29/2023 08/29/2023 Pheochromocytoma of right adrenal gland 07/24/20 Righttotal adrenalectomy 07/24/2023 Tobacco use disorder, continuous 07/24/2023 Coronary artery disease invo lving coronary bypass 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 04/04/2023 Hyperlipidemia LDL goal <70 04/04/2023 History of chronic obstructive airway disease Dyspnea 02/13/2023 At risk for sleep apnea 10/24/2022 Fibromyositis 10/24/2022 H/O: hysterectomy 10/24/2022 Heart burn 10/24/2022 Irritable bowel syndrome 10/24/2022 Migraine 10/24/2022 Peripheral neuropathy 10/24/2022 Adult body mass index 26.0-26.9 05/14/2022 Oral herpes simplex infection 05/05/2022 Old myocardial infarction 10/23/2021 Vitamin deficiency 04/07/2021 Posttraumatic stress disorder 02/07/2021 Other correction (current) drug therapy 08/29/2023 Axillary mass 01/23/2021 Family history of ischemic heart disease (IHD) 0 10/28/2020 Family history of malignant neoplasm 10/28/2020 Localized swelling, mass and lump, trunk 021 Pain in joint involving hand 10/28/2020 Subcutaneous mass of back 10/28/2020 Solitary pulmonary nodule 03/02/2020 Tobacco abuse counseling 03/02/2020 Asthma 02/05/2020 Other specified chronic obstructive pulmonary di sease 02/05/2020 Absence of both cervix and uterus, acquired 02/02 Tobacco user 10/25/2016 Chest pain 01/18/2016 Sciatica 01/18/2016 Palpitations 01/18/2016 Shortness of breath 01/18/2016 Spasm 01/18/2016 Osteoarthritis 10/31/2011 Fibromyalgia 10/31/2011 Resolved Problems Problem Noted Date Diagnosed Date Resolved Date Suicide risk 10/24/2022 08/29/2023 Bipolar 1 disorder, mixed 02/07/2021 Encounters Date Type Department Care Team Description 05/29/2025 Refill [facility] [address] [place] [address] Ben Barrios MD Chronic obstructive pulmonary disease, unspecified COPD type (HCC) 05/29/2025 Orders Only [facility] [address] [place] [address] Alejandra Giraldo, PAD CUTTER Chronic obstructive pulmonary disease, unspecified COPD type (HCC) 05/28/2025 3:24 PM EDT - 05/28/2025 11:59 PM EDT Hospital Encounter [facility] Diagnostic Imaging - [address] [place] [address] Ben Barrios MD Community acquired bacterial pneumonia Discharge Disposition: Home or Self Care 05/28/2025 1:45 PM EDT Office Visit [facility] [address] [place] [address] Ben Barrios MD Solitary pulmonary nodule (Primary Dx); Pulmonary nodules/lesions, multiple; Community acquired bacterial pneumonia 05/28/2025 Travel 04/16/2025 Telephone [facility] [address] [place] [address] Ben Barrios MD Illness from Last 3 Months Family History Medical History Relation Name Comments Cancer Brother Lung cancer Brother Coronary artery disease Mother Cancer Other COPD Sister Relation Name Status Comments Brother Mother Other Sister Social History Tobacco Use Types Packs/Day Years [...] Date Thanh rded Speak language other than [place] at home Not on file 09/21/2023 Want [...] Pulse 101 05/28/2025 2:19 PM EDT Temperature 36.4 C (97.6 F) 11/27/2024 2:36 PM EDT Respiratory Rate 16 05/28/2025 2:19 PM EDT Oxygen Saturation 90% 05/28/2025 2:1 9 PM EDT RA Inhaled Oxygen Concentration - - Weight 68 kg (150 lb) 05/28/2025 2:19 PM EDT down 20 lbs in six months Height 180.3 cm (5' 11 ) 05/28/2025 2:1 9 PM EDT Body Mass Index 20.92 05/28/2025 2:19 PM EDT Plan of Treatment Upcoming Encounters Date Type Department Care Team (Late st Contact Info) Description 11/03/2025 12:45 PM EST Office Visit [facility] Pulmonology - [address] [place] [address] Ben Barrios MD [address] [place] [address] Health Maintenance Due Date Last Done Comments CT Colonography 1968 Colonoscopy 1968 Colorectal Cancer Screening 1968 FOBT/FIT 1968 Fit-DNA (Cologuard) 1968 Sigmoidoscopy 1968 Depression Screening (12+) 1980 HIV Screening 1983 Hepatitis C Screening 1986 DTAP/TDAP/TD VACCINES (1 - Tdap) 1987 Breast Cancer Screening 03/03/2023 03/03/2021, 02/25 Medicare Initial AWV [id number] 05/05/2023 Tobacco Cessation Counseling and Screening (12+) 07/30/2024 07/30/2023 Lipid Panel 01/24/2025 01/24/2022, 10/24/2021 COVID-19 VACCINE (4 - 2024-2 6 season) 2025 07/15/2021, 12/27/2020, 11/30/2020 Influenza Vaccine (#1) 2025 Lung Cancer Screening 11/25/2025 11/25/2024 , 06/23/2024, 03/13/2024, Additional history exists Pneumococcal 50+ years Completed , 03/30/2015, 03/29/2015 Shingles Vaccine (Zoster) Completed 06/19/2024, Procedures Procedure Name Priority Date/Time Associated Diagnosis Comments XR CHEST PA AND LATERAL Routine 05/28/2025 3:35 PM EDT Community acquired bacterial pneumonia CT CHEST WITHOUT IV CONTRAST Routine 11/25/2024 12:06 PM EDT Pulmonary nodules/lesions, multiple LIPID PANEL Routine 01/24/2022 2:40 PM EDT MM DIGITAL MAMMO SCREEN BILATERAL Routine 03/03/2021 5:10 PM EDT from Last 3 Months or Most Recently Relevant to Health Maintenance Results * X-ray chest PA and lateral [...] by Chen Graves PA-C. Ben Barrios MD IM DIAGNOSTIC IMAGING ORDERABLE S Final Result * CT chest without contrast (11/25/2024 12:06 PM EDT) Anatomical Region Laterality Modality Chest, Lung Computed Tomogra phy (CT) 11/25/2024 12:5 4 PM EDT Impressions 11/25/2024 1:11 PM EDT Multiple nodules are either improved or stable. Recommend 6 month follow-up chest CT. Images reviewed, interpreted, and dictated by Dr. Lin Dhillon. Transcribed by Mabel Stokes PA-C. Narrative 11/25/2024 1:[address] SCAN OF THE CHEST WITHOUT CONTRAST. [...] images of the upper abdomen are unremarkable. Procedure Note Jamaal Dhillon MD - 11/25/2024 CT SCAN OF THE CHEST WITHOUT CONTRAST. [...] images of the upper abdomen are unremarkable. IMPRESSION: Multiple nodules are either improved or stable. Recommend 6 month follow-up chest CT. Images reviewed, interpreted, and dictated by Dr. Lin Dhillon. Transcribed by Mabel Stokes PA-C. Ben Barrios MD IMG CT ORDERABLES Final Result * LIPID PANEL (01/24/2022 2:40 PM EDT) Triglyceride 127 0 - 249 mg/dL 01/25/2022 12:53 AM EDT Cholesterol HDL 53.0 mg/dL 12:53 AM EDT Comment: Desirable > 60 mg/dl Increased Risk < 40 mg/dl Cholesterol Total 164 0 - 199 mg/dL 01/25/2022 12:53 AM EDT Comment: 200 to 239 mg/dL Moderate (borderline) >239 mg/dL High Cholesterol VLDL Calculation 25.4 5.0 - 40.0 mg/dL 01/25/2022 12:58 AM EDT Comment:Calculated by Discer n Rule GL_CHEM_TRIG_CMNT Cholesterol LDL Calculation 85.6 0.0 - 99.0 mg/dL 01/25/2022 12:58 AM EDT Comment: Calculated by Discern Rule GL_CHEM_TRIG_CMNTDESIRABLE <130 BORDERLINE 130 to 159 HIGH >=160 Cholesterol/HDL Ratio 3.1 0.0 - 3.2 01/25/2022 12:53 AM EDT LDL/HDL Ratio 1.6 0.0 - 3.2 01/25/2022 12:58 AM EDT Comment:Calculated by Discer n Rule GL_CHEM_TRIG_CMNT Blood 01/24/2022 2:40 PM EDT 01/25/2022 12:28 AM EDT [facility] Historical Provider PATHOLOGY/CYTOLOGY MAURICIO THOMAS Edited Result - Final [facility] [address] [phone] * MM digital mammo screen bilateral (03/03/2021 5:10 PM EDT) Anatomical Region Laterality Modality Breast Bilateral Mammography 03/03/2021 5:10 PM EDT Narrative 03/04/2021 2:22 PM EDT PROCEDURE: Bilateral digital screening mammogram. REASON FOR EXAM: Routine screening. FAMILY HISTORY: Intermediate family history of breast cancer COMPARISON STUDY: [facility] 2015 and 2019 FINDINGS: Craniocaudal and mediolateral oblique images of both breasts were obtained. There are scattered areas of fibroglandular density. There is no evidence of dominant mass, architectural distortion, or suspicious calcifications. No significant interval change noted. This examination was reviewed with the benefit of computer-aided detection (CAD). FINAL IMPRESSION: ACR BI-RADS 1: Negative. RECOMMENDATIONS: Routine annual screening mammography. A letter including results and recommendations was sent to the patient. Density notification was provided to patients with type 3 or 4 breast tissue pattern. Patient information entered into a reminder system with a target due date for the next mammogram. At our facility, a bill moore[place] slough marker is positioned over a visible skin lesion and a linear marker is used to indicate a scar. A triangular marker is placed on a self reported palpable finding. cc: Procedure Note Oscar Elizondo MD - 12/19/2022 PROCEDURE: Bilateral digital screening mammogram. REASON FOR EXAM: Routine screening. FAMILY HISTORY: Intermediate family history of breast cancer COMPARISON STUDY: [facility] 2015 and 2019 FINDINGS: Craniocaudal and mediolateral oblique images of both breasts were obtained. There are scattered areas of fibroglandular density. There is no evidence of dominant mass, architectural distortion, or suspicious calcifications. No significant interval change noted. This examination was reviewed with the benefit of computer-aided detection (CAD). FINAL IMPRESSION: ACR BI-RADS 1: Negative. RECOMMENDATIONS: Routine annual screening mammography. A letter including results and recommendations was sent to the patient. Density notification was provided to patients with type 3 or 4 breast tissue pattern. Patient information entered into a reminder system with a target due date for the next mammogram. At our facility, a bill moore's slough marker is positioned over a visible skin lesion and a linear marker is used to indicate a scar. A triangular marker is placed on a self reported palpable finding. cc: Oscar Elizondo MD [facility] MAMMOGRAPHY ORDERABLES Kesiha l Result from Last 3 Months or Most Recently Relevant to Health Maintenance Insurance [facility] ADV Advance Directives For more information, please contact: [phone] * Full Code (Latest Code Status on File) Date Activated Date Inactivated Comments 07/24/2023 1:02 PM 07/25/2023 2:38 PM If no puls e: No intervention If has pulse: Use intubation, mechanical ventilation, defibrillation, ACLS medications, or cardioversion as indicated. Call CAR REPAIRER * Full Code Date Activated Date Inactivated Comments 07/24/2023 11:31 AM 07/24/2023 1:02 PM * Full Code Date Activated Date Inactivated Comments 07/24/2023 7:21 AM 07/24/2023 11:31 AM Care Teams Retail Warehouse Associate Relationship Specialty Start Date End Date Marvel Grayson MD PCP - General Family Medicine 05/17/23 Marvel Grayson [address] [place] [address] Family Practice 04/09/23
--- OUTSIDE RECORDS SUMMARY | 2025-07-02 14:03 | XMS_ITS | Referral Summary ---
Author Organization [employer] ([place], [place], [place], [place]) Address [address] [place] [address] Care Team Providers Care Text Transcriber Name Role Phone Marvel Grayson MD Primary Care Provider [phone] Encounters Date Type Department Care Team Description 05/29/2025 Refill [facility] Pul[facility] - [facility] [address] [place] [address] Ben Barrios MD Chronic obstructive pulmonary disease, unspecified COPD type (HCC) 05/29/2025 Orders Only [facility] Pulmonology - [facility] [address] [place] [address] Alejandra Giraldo, SHEEP AND WHEAT FARMER Chronic obstructive pulmonary disease, unspecified COPD type (HCC) 05/28/2025 3:24 PM EDT - 05/28/2025 11:59 PM EDT Hospital Encounter [facility] - [facility] [address] [place] [address] Ben Barrios MD Community acquired bacterial pneumonia Discharge Disposition: Home or Self Care 05/28/2025 Travel 05/28/2025 1:45 PM EDT Office Visit [facility] [address] [place] [address] Ben Barrios MD Solitary pulmonary nodule (Primary Dx); Pulmonary nodules/lesions, multiple; Community acquired bacterial pneumonia 04/16/2025 Telephone [facility] Pulmonology - [address] [place] [address] Ben Barrios MD Illness from Last 3 Months Allergies Active Allergy Reactions Criticality Noted Date [...] Pain, # 100 Tab, 0 Refill(s), Pharmacy: [facility]/pharmacy #[id number], 180.34, cm, 10/23/21 13:50:00 EST, CLINICALHEIGHT, 88.64, kg, 10/23/21 13:50:00 EST, CLINICALWEIGHT 10/25/19 Active tiZANidine (ZANAFLEX) 2 MG tablet 1 Tab, Oral, Tab, Q8H, PRN as needed for muscle spasm, # 90 Tab, 0 Refill(s) 10/24/19 Active gabapentin (NEURONTIN) 300 MG capsule Take [...] daily. 09/05/19 25 Active miscellaneous medical supply mis 11/13/19 25 Active budesonide (PULMICORT) 1 mg/2 [...] as needed for wheezing. 1 Inhaler 11 11/28/19 25 026 Active ipratropium-albut Svaana (DUO-NEB) 0.5 mg-3 mg(2.5 mg base)/3 mL nebulizer solutionIndicatio ns:COPD with acute exacerbation (HCC) Inhale 3 mLs by nebulization every 4 (four) hours as needed for wheezing or shortness of breath. 240 mL 6 11/28/19 25 026 Active roflumilast (DALIRESP) 250 mcg tabletIndications :COPD (chronic obstructive pulmonary disease) (HCC),Chronic bronchitis, unspecified chronic bronchitis type (HCC),Pulmonary emphysema, unspecified emphysema type Take 1 tablet (250 mcg total) by mouth daily. 30 tablet 5 01/13/20 25 Active HYDROcodone-aceta minophen (NORCO) 10-325 [...] 1 puff by mouth daily. 60 each 11 05/29/20 25 Active predniSONE (DELTASONE) 20 MG [...] 08/29/2023 Pheochromocytoma of right adrenal gland 07/24/20 23 Righttotal adrenalectomy 07/24/2023 Tobacco use disorder, continuous 07/24/2023 Coronary artery disease invo lving coronary bypass graft of [place] heart with angina pectoris 04/04/2023 Hyperlipidemia LDL [...] deficiency 04/07/2021 Posttraumatic stress disorder 02/07/2021 Other fdc (current) drug therapy 08/29/2023 Axillary mass 01/23/2021 [...] 10/24/2022 08/29/2023 Bipolar 1 disorder, mixed 02/07/2021 Social History Tobacco Use Types Packs/Day Years [...] Date Thanh rded Speak language other than [place] Citizen at home Not on file 09/21/2023 Want [...] Description 11/03/2025 12:45 PM EST Office Visit [facility] Pulmonology - [address] [address] [place] [address] Ben Barrios MD [address] [place] [address] Procedures Procedure Name Priority Date/Time Associated Diagnosis [...] IMG DIAGNOSTIC IMAGING ORDERABLE S Final Result * [...] by Mabel Stokes PA-C. Ben Barrios MD IM CT ORDERABLES Final Result * LIPID PANEL [...] 2:40 PM EDT 01/25/2022 12:28 AM EDT [facility] Historical Provider PATHOLOGY/CYTOLOGY KRISTALJavy THOMAS Edited Result - Final [facility] [id number], [facility] [phone] * MM digital mammo screen bilateral (03/03/2021 5:10 PM EDT) Anatomical Region Laterality Modality Breast Bilateral Mammography 03/03/2021 5:10 PM EDT Narrative 03/04/2021 2:22 PM EDT PROCEDURE: Bilateral digital screening mammogram. REASON FOR EXAM: Routine screening. FAMILY HISTORY: Intermediate family history of breast cancer COMPARISON STUDY: [facility] 2015 and 2019 FINDINGS: Craniocaudal and [...] the next mammogram. At our facility, a [place] marker is positioned over a visible skin lesion and a linear marker is used to indicate a scar. A triangular marker is placed on a self reported palpable finding. cc: Procedure Note Oscar Elizondo MD - 12/19/2022 PROCEDURE: Bilateral digital screening mammogram. REASON FOR EXAM: Routine screening. FAMILY HISTORY: Intermediate family history of breast cancer COMPARISON STUDY: [facility] 2015 and 2019 FINDINGS: Craniocaudal and [...] the next mammogram. At our facility, a [place] marker is positioned over a visible skin lesion and a linear marker is used to indicate a scar. A triangular marker is placed on a self reported palpable finding. cc: Oscar Elizondo MD IMG MAMMOGRAPHY ORDERABLES Keshia l Result from Last 3 Months or Most Recently Relevant to Health Maintenance Insurance [employer] [facility] ADV Advance Directives For more information, please contact: [phone] * Full Code (Latest Code Status on File) Date Activated Date Inactivated Comments 07/24/2023 1:02 PM 07/25/2023 2:38 PM If no puls e: No intervention If has pulse: Use intubation, mechanical ventilation, defibrillation, ACLS medications, or cardioversion as indicated. Call RESIDENTIAL LEASING AGENT * Full Code Date Activated Date Inactivated Comments 07/24/2023 11:31 AM 07/24/2023 1:02 PM * Full Code Date Activated Date Inactivated Comments 07/24/2023 7:21 AM 07/24/2023 11:31 AM Care Teams Text Transcriber Relationship Specialty Start Date End Date Marvel Grayson MD PCP - General Family Medicine 05/17/23 Marvel Grayson [address] [place] [address] Family Practice 04/09/23
--- OUTSIDE RECORDS SUMMARY | 2025-07-02 14:03 | XMS_ITS | Encounter Summary ---
Author Organization [employer] ([place], [place], [place], [place]) Address [address] [place] [address] Care Team Providers Care Endless Belt Finisher Name Role Phone Amie Pena MD Primary Care Provider [phone] Marvel Grayson MD Primary Care Provider [phone] Encounter Details Date Type Department Care Team (Late st Contact Info) Description 04/14/2019 Transcribed Document [facility] [place] [address] [place] [address] ProviderMik MD [address] [place] [address] Social History Tobacco Use Types Packs/Day Years Used Date Smoking Tobacco: Never Assessed Comments Unknown Sex and Gender Information Value Date Recorded Sex Assigned at Not on file Legal Sex Female 6:09 PM CDT Gender Identity Not on file Sexual Orientation Not on file documented as of this encounter Miscellaneous Notes * Cerner Conversion Note - Mik ProviderMD - 04/14/2019 10:23 PM CDT ED Discharge Entered On: 04/14/2019 22:23 EDT Performed On: 04/14/2019 22:23 EDT by Leah Valentine it consulting director Process Patient Disposition : Discharge Personal Belongings With Patient : Yes Patient Education Completed : Yes Teaching Evaluation : Verbalizes understanding IV Discontinued : Not applicable Nursing Documentation Completed : Yes Leah Valentine RN - 04/14/2019 22:23 EDT ED Discharge Discharge To : Home with ambulatory/outpatient follow-up Mode Of Departure : Ambulatory, Private vehicle Accompanied By : Friend Discharge Instructions Reviewed With, Opportunity For Questions Given : Patient Prescriptions Given to Patient : Karli Leah Valentine RN - 04/14/2019 22:23 EDT Electronically signed by [facility] Conversion Audiovisual Lead Technician Cerner at 12/16/2022 10:45 AM CDT documented in this encounter Plan of Treatment Upcoming Encounters Date Type Department Care Team (Late st Contact Info) Description 11/03/2025 12:45 PM EST Office Visit [facility] Pulmonology - [address] [place] [address] Ben Barrios MD [address] [place] [address] documented as of this encounter Visit Diagnoses Not on filedocumented in this encounter Care Teams Endless Belt Finisher Relationship Specialty Start Date End Date Amie Pena MD [address] [place] [address] [place] [address] PCP - General Family Medicine 10/31/22 04/08/23 Marvel Grayson MD [address] [place] [address] [place] [address] PCP - General Family Medicine 05/17/23 Marvel Grayson [address] [place] [address] Family Practice 04/09/23 documented as of this encounter
--- OUTSIDE RECORDS SUMMARY | 2025-07-02 14:03 | XMS_ITS | Encounter Summary ---
Author Organization [employer] ([place], [place], [place], [place]) Address [address] [place] [address] Care Team Providers Care Customer Service Officer Name Role Phone Marbella Pena MD Primary Care Provider [phone] Marvel Grayson MD Primary Care Provider [phone] Encounter Details Date Type Department Care Team (Late st Contact Info) Description 04/18/2019 Transcribed Document [facility] [place] [address] [place] [address] ProviderMik MD [address] [place] [address] Social History Tobacco Use Types Packs/Day Years Used Date Smoking Tobacco: Never Assessed Comments Unknown Sex and Gender Information Value Date Recorded Sex Assigned at Not on file Legal Sex Female 6:09 PM CDT Gender Identity Not on file Sexual Orientation Not on file documented as of this encounter Miscellaneous Notes * Cerner Conversion Note - Mik ProviderMD - 04/18/2019 10:48 AM CDT Evaluation, Occupational Therapy Entered On: 04/18/2019 12:03 EDT Performed On: 04/18/2019 11:42 EDT by MARBELLA MARIANO, OTR/L General Information, OT Visit Type, OT : Initial evaluation Patient Orders : Order Date Order Ordering 04/18/2019 10:48 OT Evaluation and Treatment Ordered By: VU HAYS MD-ORT Active Diagnoses : No Qualifying Diagnoses Therapy Diagnosis, OT : reduced moblity Admission Date : 04/18/2019 04:50 Assisted by, OT : Physical Therapist Personal Devices : Personal Devices No Devices Recorded Assistive Devices : Assistive Devices No Devices Recorded Precautions in Place : Fall prevention measures MARBELLA MARIANO OTR/Kevan - 04/18/2019 11:58 EDT General Status Patient Received Status : Long sitting in bed, Bed alarm activated, HOB elevated Treatment Start Time : 04/18/2019 11:42 EDT Patient Left Status : Up in chair, Chair alarm activated, RN/PCT informed, Family/Visitors at bedside, Communication board completed, All needs met and within reach RN/PCT Informed Comment : nursing ok'd tx. id and verified. Treatment End Time : 04/18/2019 11:58 EDT Treatment Time : 16 Minute(s) MARBELLA MARIANO OTR/Kevan - 04/18/2019 11:58 EDT History and Environment, OT Living Situation, Therapy : Home Patient Lives With : Spouse Persons Assisting Patient at Home : Spouse Persons Providing Information : Patient Home Equipment, Therapy : Walker Walker : Walker, standard Home Setup : One story Stairs : Yes Stair Location(s) : Outside Outside Stairs, Number of Steps : 2 Railing Outside : No MARBELLA MARIANO OTR/Kevan - 04/18/2019 11:58 EDT Prior LOF Bathing, OT : Independent Prior LOF Bed Mobility : Independent Prior LOF Upper Body Dressing, OT : Independent Prior LOF Lower Body Dressing, OT : Independent Prior LOF Toileting : Independent Prior LOF Transfer : Independent Prior LOF Grooming, OT : Independent Prior LOF for IADLs, OT : Independent MARBELLA MARIANO OTR/Kevan - 04/18/2019 11:58 EDT Upper Extremity Upper Extremity Dominance : Right Right UE Active ROM : WFL Right UE Strength : WFL Left UE Active ROM : WFL Left UE Strength : WFL Upper Extremity Strength Impaired : No Fine Motor Coordination Impaired : No MARBELLA MARIANO OTR/Kevan - 04/18/2019 11:58 EDT Self Care/Home Management, OT Self Feeding Assist Level, OT : Independent, complete Grooming Assist Level, OT : Independent, complete Bathing Assist Level, OT : Supervision or set-up Upper Body Dressing Assist Level, OT : Independent, complete Lower Body Dressing Assist Level, OT : Independent, modified Toileting Assist Level : Independent, modified Toileting Device : [id number] commode Toilet Transfer Assist Level : Independent, modified Toilet Transfer Device : Belt, gait MARBELLA MARIANO OTR/Kevan Macias 04/18/2019 11:58 EDT Mobility Device/Prosthesis/Wt Bearing Weight Bearing Status Maintained : Yes Weight Bearing Status : As tolerated Functional Mobility Device : Gait belt MARBELLA MARIANO OTR/Kevan 04/18/2019 11:58 EDT Functional Mobility Mobility Grid Supine to Sit : Rehab Modified independence Sit to Stand : Supervision/set-up Bed to Chair : Supervision/set-up Stand to Sit : Supervision/set-up MARBELLA MARIANO OTR/Kevan 04/18/2019 11:58 EDT AM PAC Daily Activity Putting On/Taking Off Lower Body Clothes : None Bathing (Washing, Rinsing, Drying) : A little Toileting Includes Toilet, Bedpan, Urinal : None Putting On/Taking Off Upper Clothing : None Taking Care of Grooming : None Eating Meals : None AM-PAC Daily Activity Raw Score : 23 MARBELLA MARIANO OTR/Kevan 04/18/2019 11:58 EDT Image 3 - Images currently included in the form version of this document have not been included in the text rendition version of the form. Activity Tolerance, OT Activity Comment : GOOD MARBELLA MARIANO OTR/Kevan 04/18/2019 11:58 EDT Cognition Assessment, OT Orientation : Oriented x 4 MARBELLA MARIANO OTR/Kevan 04/18/2019 11:58 EDT Education OT Occupational Therapy Education Grid Activity of Daily Living Training : Verbalizes understanding, Returns demonstration Functional Mobility Training : Verbalizes understanding, Returns demonstration Role of Occupational Therapy : Verbalizes understanding MARBELLA MARIANO OTR/Kevan 04/18/2019 11:58 EDT Indication Assessment, OT Occupational Therapy Indicated : No Occupational Therapy Not Indicated : Other: pt is scheduled to DC home today. MARBELLA MARIANO OTR/Kevan Macias 04/18/2019 11:58 EDT Plan of Care, OT OT Tx Plan/Goals Established w Patient : No Reason OT Treatment/Plan Not Established : see OT eval. Plan of Care Comment, OT : see OT eval. MARBELLA MARIANO OTR/L - 04/18/2019 11:58 EDT Treatment Note Subjective Comment : pt ok'd tx. Additional Objective Information : EVAL = 8 min ADL = 8 min Pt educated on back precautions in relation to ADL performance: no bending/lifting/twisting. Assessment : Pt is I/supervision with ADL transfers and LB self care tasks. Pt is scheduled to DC home today. No further skilled OT needs at this level of care. Plan for Treatment : OT eval only. MARBELLA MARIANO OTR/Kevan - 04/18/2019 11:58 EDT Pain Assessment Pain Scaled Used : 0-10 Pain scale Pain Score Pre-Intervention : 8 Pain Score During-Intervention : 8 Pain Score Post-Intervention. : 8 Location : Incisional Pain Comment : nurse aware MARBELLA MARIANO OTR/Kevan - 04/18/2019 11:58 EDT Image 1 - Images currently included in the form version of this document have not been included in the text rendition version of the form. Anticipated Discharge Needs, OT/PT Anticipated Discharge to : Home, with home health Recommend Continued Therapy at Discharge : No MARBELLA MARIANO OTR/Kevan - 04/18/2019 11:[address] [facility] OT Charges OT Selfcare/Hm Mgmt Ea 15 Min : 1 OT Eval Low Complexity : 1 MARBELLA MARIANO OTR/Kevan - 04/18/2019 11:58 EDT documented in this encounter Plan of Treatment Upcoming Encounters Date Type Department Care Team (Late st Contact Info) Description 11/03/2025 12:45 PM EST Office Visit [facility] Pulmonology - [address] [place] [address] Ben Barrios MD [address] [place] [address] documented as of this encounter Visit Diagnoses Not on filedocumented in this encounter Care Teams Customer Service Officer Relationship Specialty Start Date End Date Marbella Pena MD [address] [place] [address] [place] [address] PCP - General Family Medicine 10/31/22 04/08/23 Marvel Grayson MD [address] [place] [address] PCP - General Family Medicine 05/17/23 Marvel Grayson [address] [place] [address] Family Practice 04/09/23 documented as of this encounter
--- OUTSIDE RECORDS SUMMARY | 2025-07-02 14:03 | XMS_ITS | Encounter Summary ---
Author Organization [employer] ([place], [place], [place], [place]) Address [address] [place] [address] Care Team Providers Care Infantry Senior Sergeant Name Role Phone Amie Pena MD Primary Care Provider [phone] Marvel Grayson MD Primary Care Provider [phone] Encounter Details Date Type Department Care Team (Late Contact Info) Description 04/15/2019 Transcribed Document [facility] [place] [address] [place] [address] ProviderMik MD [address] [place] [address] Social History Tobacco Use Types Packs/Day Years Used Date Smoking Tobacco: Never Assessed Comments Unknown Sex and Gender Information Value Date Recorded Sex Assigned at Not on file Legal Sex Female 6:09 PM CDT Gender Identity Not on file Sexual Orientation Not on file documented as of this encounter Miscellaneous Notes * Cerner Conversion Note - Historical ProviderMD - 04/15/2019 9:30 AM CDT CR Wrist Min 3 Vws LT Ordered: 04/14/2019 Auth (Verified) Reason for Exam: Rule out foreign body 04/15/2019 08:47 04/15/2019 09:30 (IRLANDA ALVAREZ) No further action required documented in this encounter Plan of Treatment Upcoming Encounters Date Type Department Care Team (Late st Contact Info) Description 11/03/2025 12:45 PM EST Office Visit [facility] Pulmonology - [address] [place] [address] Ben Barrios MD [address] [place] [address] documented as of this encounter Visit Diagnoses Not on filedocumented in this encounter Care Teams Infantry Senior Sergeant Relationship Specialty Start Date End Date Amie Pena MD [address] [place] [address] PCP - General Family Medicine 10/31/22 04/08/23 Marvel Grayson MD [address] [place] [address] PCP - General Family Medicine 05/17/23 Marvel Grayson [address] [place] [address] Family Practice 04/09/23 documented as of this encounter
--- OUTSIDE RECORDS SUMMARY | 2025-07-02 14:03 | XMS_ITS | Encounter Summary ---
Author Organization [employer] ([place], [place], [place], [place]) Address [address] [place] [address] Care Team Providers Care School Psychologist Assistant Name Role Phone Amie Pena MD Primary Care Provider [phone] Marvel Grayson MD Primary Care Provider [phone] Encounter Details Date Type Department Care Team (Late st Contact Info) Description 04/18/2019 Transcribed Document [facility] [place] [address] [place] [address] ProviderMik MD [address] [place] [address] Social History Tobacco Use Types Packs/Day Years Used Date Smoking Tobacco: Never Assessed Comments Unknown Sex and Gender Information Value Date Recorded Sex Assigned at Not on file Legal Sex Female 6:09 PM CDT Gender Identity Not on file Sexual Orientation Not on file documented as of this encounter Miscellaneous Notes * Cerner Conversion Note - Mik ProviderMD - 04/18/2019 6:41 PM CDT Nursing Discharge Summary Entered On: 04/18/2019 18:42 EDT Performed On: 04/18/2019 18:41 EDT by Nasreen Fishman, burlap spreader Documentation Patient Disposition, General : Discharge Discharge To : Home with ambulatory/outpatient follow-up Mode Of Departure, General Discharge : Private vehicle Accompanied By, Discharge : Spouse IV Discontinued : Yes Personal Belongings With Patient : Yes Prescriptions Given to Patient : Yes Discharge Instructions Reviewed With, Opportunity For Questions Given : Patient Patient Education Completed : Yes Number of Prescriptions Given : 3 Teaching Method : Explanation Teaching Evaluation : Verbalizes understanding Nasreen Fishman, RN - 04/18/2019 18:41 EDT documented in this encounter Plan of Treatment Upcoming Encounters Date Type Department Care Team (Late st Contact Info) Description 11/03/2025 12:45 PM EST Office Visit [facility] Pulmonology - [address] [place] [id number] Ben Barrios MD [address] [place] [address] documented as of this encounter Visit Diagnoses Not on filedocumented in this encounter Care Teams School Psychologist Assistant Relationship Specialty Start Date End Date Amie Pena MD [address] [place] [address] PCP - General Family Medicine 10/31/22 04/08/23 Marvel Grayson MD [address] [place] [address] PCP - General Family Medicine 05/17/23 Marvel Grayson [address] [place] [address] Family Practice 04/09/23 documented as of this encounter
--- OUTSIDE RECORDS SUMMARY | 2025-07-02 14:03 | XMS_ITS | Encounter Summary ---
Author Organization [employer] ([place], [place], [place], [place]) Address [address] [place] [address] Care Team Providers Care Assembly Line Leader Name Role Phone Marvel Grayson MD Primary Care Provider [phone] Encounter Details Date Type Department Care Team (Late st Contact Info) Description 05/29/2025 Orders Only [facility] Pulmonology - [address] [place] [address] Alejandra Giraldo Y, LUSTER APPLICATOR Chronic obstructive pulmonary disease, unspecified COPD type (HCC) Social History Tobacco Use Types Packs/Day Years [...] Date Thanh rded Speak language other than Israeli at home Not on file 09/21/2023 Want [...] on file documented as of this encounter Plan of Treatment Upcoming Encounters Date Type Department Care Team (Late st Contact Info) Description 11/03/2025 12:45 PM EST Office Visit [facility] Pulmonology - [address] [place] [address] Ben Barrios MD [address] [place] [address] documented as of this encounter Visit Diagnoses Diagnosis Chronic obstructive pulmonary disease, unspecified COPD type (HCC) documented in this encounter Care Teams Assembly Line Leader Relationship Specialty Start Date End Date Marvel Grayson MD PCP - General Family Medicine 05/17/23 Marvel Grayson [address] [place] [address] Family Practice 04/09/23 documented as of this encounter
--- OUTSIDE RECORDS SUMMARY | 2025-07-02 14:03 | XMS_ITS | Encounter Summary ---
Author Organization [employer] ([place], [place], [place], [place]) Address [address] [place] [address] Care Team Providers Care Paper Cup Machine Operator Name Role Phone Marvel Grayson MD Primary Care Provider [phone] Reason for Visit * Reason Onset Date Comments Medication Refill 05/29/2025 Encounter Details Date Type Department Care Team (Late st Contact Info) Description 05/29/2025 Refill [facility] Pulmonology - [address] [place] [address] Ben Barrios MD [address] [place] [address] Chronic obstructive pulmonary disease, unspecified COPD type [...] Date Thanh rded Speak language other than Italian at home Not on file 09/21/2023 Want [...] as of this encounter Miscellaneous Notes * Telephone Encounter - Lv Barrygis - 05/29/2025 11:31 AM EDT Re-sending Trelegy to correct pharmacy. documented in this encounter Plan of Treatment Upcoming Encounters Date Type Department Care Team (Late st Contact Info) Description 11/03/2025 12:45 PM EST Office Visit [facility] Pulmonology - [address] [place] [address] Ben Barrios MD [address] [place] [address] documented as of this encounter Visit Diagnoses Diagnosis Chronic obstructive pulmonary disease, unspecified COPD type (HCC) documented in this encounter Care Teams Paper Cup Machine Operator Relationship Specialty Start Date End Date Marvel Grayson MD PCP - General Family Medicine 05/17/23 Marvel Grayson [address] [place] [address] Family Practice 04/09/23 documented as of this encounter
--- OUTSIDE RECORDS SUMMARY | 2025-07-02 14:04 | XMS_ITS | Encounter Summary ---
Author Organization [employer] ([place], [place], [place], [place]) Address [address] [place] [address] Care Team Providers Care Clinical Resource Nurse Name Role Phone Amie Pena MD Primary Care Provider [phone] Marvel Grayson MD Primary Care Provider [phone] Encounter Details Date Type Department Care Team (Late st Contact Info) Description 04/18/2019 Transcribed Document [facility] [place] [address] [place] [address] ProviderMik MD [address] [place] [address] Social History Tobacco Use Types Packs/Day [...] Mik ProviderMD - 04/18/2019 10:48 AM CDT Education-Smoking Cessation Entered On: 04/18/2019 11:01 EDT Performed On: 04/18/2019 10:48 EDT by Nasreen Fishman, RN Teaching/Learning Assessment Barriers To Learning : None evident Nasreen Fishman, RN - 04/18/2019 11:01 EDT Education: Smoking/Tobacco Cessation Topics Smoking Cess Educatin Grid Advice Given to Stop Smoking : Verbalizes understanding Risks/Benefits of Smoking : Verbalizes understanding Second Hand Smoke : Verbalizes understanding Ed-Smoking Cessation Programs : Verbalizes understanding Ed-Smoking Cessation, Other : Verbalizes understanding Nasreen Fishman RN - 04/18/2019 11:01 EDT Tobacco Cessation Counseling Grid Recognizing Danger Situations : Verbalizes understanding Negative Moods and/or Stress : Verbalizes understanding Being Around Other Tobacco Users : Verbalizes understanding Drinking Alcohol : Verbalizes understanding Experiencing Urges : Verbalizes understanding Tobacco Cues and Availability : Verbalizes understanding Developing Coping Skills : Verbalizes understanding Anticipate/Avoid Temptation/Triggers : Verbalizes understanding Strategies to Reduce Negative Moods : Verbalizes understanding Reduce Stress/Exposure to Tobacco Cues : Verbalizes understanding Activities to Dupo With Smoking Urges : Verbalizes understanding Basic Information About Quitting : Verbalizes understanding Tobacco Use Increases Chance of Relapse : Verbalizes understanding Withdrawal Symptoms Peak After Quitting : Verbalizes understanding Addictive Nature of Tobacco : Verbalizes understanding Nasreen Fishman RN - 04/18/2019 11:01 EDT documented in this encounter Plan of Treatment Upcoming Encounters Date Type Department Care Team (Late st Contact Info) Description 11/03/2025 12:45 PM EST Office Visit [facility] Pulmonology - [address] [place] [address] Ben Barrios MD [address] [place] [address] documented as of this encounter Visit Diagnoses Not on filedocumented in this encounter Care Teams Clinical Resource Nurse Relationship Specialty Start Date End Date Amie Pena MD [facility] [place] [address] PCP - General Family Medicine 10/31/22 04/08/23 Marvel Grayson MD [facility] [place] [address] PCP - General Family Medicine 05/17/23 Marvel Grayson [facility] [address] Family Practice 04/09/23 documented as of this encounter
--- OUTSIDE RECORDS SUMMARY | 2025-07-02 14:04 | XMS_ITS | Encounter Summary ---
Author Organization [employer] ([place], [place], [place], [place]) Address [address] [place] [address] Care Team Providers Care [employer] Name Role Phone Amie Pena MD Primary Care Provider [phone] Marvel Grayson MD Primary Care Provider [phone] Encounter Details Date Type Department Care Team (Late st Contact Info) Description 04/18/2019 Transcribed Document [facility] Family Medicine [address] [place] [id number] ProviderMik MD [address] [place] [id number] Social History Tobacco Use Types Packs/Day Years Used Date Smoking Tobacco: Never Assessed Comments Unknown Sex and Gender Information Value Date Recorded Sex Assigned at Not on file Legal Sex Female 6:09 PM CDT Gender Identity Not on file Sexual Orientation Not on file documented as of this encounter Miscellaneous Notes * Cerner Conversion Note - Mik Thorne MD - 04/18/2019 9:41 AM CDT Patient: PRATIK SHABAZZ Age: 48 years Sex: Female : 1970 Associated Diagnoses: None Author: VU HAYS MD-ORT Operative Report DATE OF PROCEDURE. April 18, 2019 PROCEDURE: [id number] level interbody arthrodesis, posterolateral technique, single space, including [id number] placement of interbody mechanical structural bone graft, structural bone,-L5-S1, additional primary procedure [id number] level, segmental instrumentation, L5-S1, dual rods and screws. Additional primary procedure [id number] graft harvest for spine surgery, autograft, right iliac crest, structural graft. [id number], structural bone graft, for spine surgery. PREOPERATIVE DIAGNOSIS(ES): Spinal stenosis. Posterior spondylolisthesis. Disc degeneration. Facet joint spondylosis. L5-S1 POSTOPERATIVE DIAGNOSIS(ES): Posterior Spondylolisthesis. Spinal stenosis. Disc degeneration. Facet joint spondylosis. L5-S1 SURGEON: Vu Hays MD. CONTROL PANEL OPERATOR CRUDE UNIT: Mr. Johnny Flores The duties of the assistant professor of education are to assist in transferring the patient in the preoperative stretcher, onto the operating room table. Carefully positioning the patient, padding, During surgery, assisting with careful retraction, suctioning, allowing for safe visualization of the neurovascular structures. At the end of surgery, assistance with closure, and then transfer the patient off the operating room table onto the postoperative stretcher. ANESTHESIA: General. ESTIMATED BLOOD LOSS: Less than 20 mL COMPLICATIONS: None. Intraoperative EMG nerve conduction studies normal FINDINGS: Severe spinal stenosis, L5-S1, severe foraminal stenosis Spondylolisthesis, 5 mm [id number], posteriorly, L5 and S1 SURGICAL INDICATORS: Symptoms-severe pain, pleuritic constantly at 8 out of 10, with activity becomes 10 out of 10. Back pain with leg pain. Intermittent numbness and weakness. Symptom duration-progressive times years, severe ??1 year, L5 and S1 radiculopathy both lower extremities. Numbness and weakness. Function-symptoms of numbness so severe that the patient has not been able to work. Has been off work, for nearly 6 months now. Cannot work secondary to severe pain numbness and weakness. Previous treatment-physical therapy, nonsteroidals. Exercise program. Pain medication. Cortisone injections. Neurontin. High-dose pain medication. Epidural injection. Neuropathic agents. Modification of activity, weight loss, IMAGING STUDIES T-hvwq-iyumf 1 spondylolisthesis L5-S1, slippage L5 on S1, 5 mm. Severe foraminal stenosis L5-S1 MRI study--L5-S1, complete loss of disc space, resulting in severe L5-S1 neural foraminal stenosis, compressing the exiting nerve roots. Spondylolisthesis, resulting in severe compression of the S1 nerve root. CT scan-CT scan confirming grade 1 spondylolisthesis L5 on S1, slippage of at least 4 mm. Diagnostic block-epidural injection temporary improvement, spondylolytic block-relieving symptoms temporarily, Diagnostic SI blocks-no improvement in symptoms. Surgical otoyrbmb-ofnnnc-urg evidence is consistent that the patient's symptoms are coming from the spondylolisthesis. Failing conservative management. Surgical intervention is appropriate, to open up the neural foramina at L5-S1 right and left side, with decompression, allowing for decompression of the L5 nerve root. Decompression of the traversing S1 nerve roots. RECOMMENDATION: As the patient has failed conservative management, the next logical treatment would be separation for some form of snf, institutionalization patient etc., or surgical treatment. I believe there is a reasonable chance that surgical treatment should help this patient. Pain medication. Epidural injection, anti-inflammatory medication, neuropathic agents, weight loss, physical therapy, has failed. The patient pain has become unbearable. . Alternative treatments including chronic pain medication, epidural pump, pain management. Patient states, that he does not want to use those treatments at this time. The plan is to decompress and fuse L5-S1 RISKS Risk will be minimized. These were reviewed with the patient, minimize sedation of risk with the following, not limited just these. Infection-sterile technique, superficial surgical technique, antibiotics. Antibiotic dressing antibiotic and wounds. Nerve damage-use of x-ray to identify correct level, biplane, EMG nerve conduction studies. 4 power magnification were needed. Repeat surgery-minimized that using minimal invasive surgical techniques, to minimize the chance of damaging structural support. Bleeding and transfusion-rarely occurs with this operation. Meticulous hemostasis. Nonunion-delayed union-patient will avoid any type of tobacco products, and nonsteroidals. CSF leakage-staying away as much as possible from the dural structures. Careful retraction. COMORBIDITIES Chronic pain Asthma Chronic back pain COPD Discontinuation of smoking GERD Irritable bowel syndrome Migraines Peripheral neuropathy PTSD Sciatica FLUOROSCOPY TIME- 2.1 minutes SPECIMEN: Degenerative disc, L5-S1. ESTIMATED BLOOD LOSS: Less than 20 mL COMPLICATIONS: None. Intraoperative EMG nerve conduction studies normal FINDINGS: Spondylolisthesis, spondylolysis, L5-S1 PHYSICIAN QUALITY REPORTING SYSTEM,/PAYMENT FOR PERFORMANCE SERVICES. Antibiotics administered within 1 hour of incision Antibiotics [id number]-[id number]-tjtyaqjwmw cephalosporin, Ancef Antibiotics are discontinued within 24 hours of surgery Mechanical DVT prophylaxis Catheter not placed. DESCRIPTION OF PROCEDURE: Patient brought into the operating room. General anesthesia. Catheter. DVT protocol. Teds and sequential compression devices legs. The patient was transferred onto the operating table onto the Asher frame. Very carefully, padding all pressure areas. careful positioning. With the patient appropriate position, 2 plane fluoroscopy was brought into the operating room. Preoperative MRI and imaging evaluation, creating blueprint for the patient. This blueprint, with 2 plane fluoroscopy was carefully transferred onto the patient skin. Wash and prep. sterile prep. Sterile draping. Sterile draping. Neurophysiological monitoring. EMG nerve conduction studies. Timeout., antibiotics Approach to the spine-the disc space was approached to the far lateral approach, approximately 13 cm off the midline. Through a separate incision, right and left side, posterior instrumentation and posterior fusion performed. Level of the spine identified radiographically. Local filtration, L5-S1, both on the right and on the left side, with long-acting anesthetic, and to the far lateral incision. Infiltration, from L3 down to S1 right and left side, and discectomy site. Interbody arthrodesis L5-S1, TLIF approach-[id number] far lateral approach, 12 cm off the midline. Far lateral incision was made, approximately 11 centimeters off the midline. Through this small incision, history of plane fluoroscopy, EMG nerve conduction studies, very carefully directing the guide pin, towards the pedicle of S1. Once encountering the pedicle of S1, gently walking the guidepin, and a cephalad direction, to come into the safe zone, and then walking this anteriorly, entering the guidepin into the disc. Careful monitoring with x-ray, EMG nerve conduction study. Carefully avoiding any irritation to the lumbosacral plexus. The guide was advanced 6 very slowly being very careful, that if any firing occurred on neural monitoring, the guide was immediately moved away from that position to the spot where there was no firing. With careful positioning of the guidepin, and monitoring of the EMG nerve conduction studies. If there was any activity on EMG nerve conduction studies, the probe was gently moved, away from the irritable source until the EMG nerve conduction studies returned to normal. And then gentle progression on with the surgery after that. Entry point is anterior and lateral to the facet joint and to the transverse process. With this properly docked in this position incision was enlarged, the soft tissue dilators were used to dilate the soft tissues, and she would create a working channel with the place a tubular retractor through the soft tissues, onto the surface of the disc, and advancing into the disc. This allowed for very careful visualization, and for careful protection of the exiting exiting L5 nerve root traversing S1 nerve An aggressive discectomy for arthrodesis was then performed by drilling across the disc with 6 mm drill bit followed with the articulating curettes and straight curettes, and aggressively remove the disc material scraping the endplates. This was followed with a wire brushes, cleaning out the endplates. Multiple passes were made to make certain that there is no more disc material on the endplates for arthrodesis preparation. . And the cartilaginous endplate had been removed. The disc space and washed out with pulse lavage. Suctioning. Being very carefully not to disrupt the stability of the endplate. Making special effort, to keep the annulus intact. This allowing for opening up of the neural foramina, increasing foraminal size by at least 50%, confirmation with x-ray, achieving decompression of the exiting L5 nerve root and the traversing S1 nerve root, right and left side. Autograft harvest iliac crest right side- Separate incision was made over the right posterior superior iliac crest. Through this small incision, carefully dissecting onto the posterior suprailiac spine. Osteotomizing the posterior superior iliac spine. A cone of bone was removed, which measured 5 mm, proximally, 1.5 cm distally, by 1.2 cm in length. This bone was taken and mixed with the allograft bone on the back table. This was taken through the left iliac crest Allograft preparation- The allograft products-division, was opened on the back table, and soaked with normal saline. The autograft, there was taken with the allograft, and mixed together to create an autograft allograft mixture. This mixture, was used. Fusion, within the disc space. Further augmented, with compact bone grafting. Interbody fusion-with placement of interbody structural bone graft -[id number] Interbody fusion was performed by placement of the structural autograft allograft mixture, into the disc space. With the tubular retractor, carefully protecting the neural elements, L5 root and S1 root. Compact bone graft this into the disc and into the periphery of the disc. Allowing for good contact, between the structural auto/allograft mixture against the endplates. L5 above, and S1 below. Compact bone grafting. Structural grafting. The bone graft was contained within the synthetic mesh device, the mesh device keeps the bone graft from migrating into the canal L5-S1 disc space. The mesh device is not is not a fusion device, areas of bone graft containment device. The bone graft is what does the fusion. The structural bone graft also give stability within the disc space. Bone graft was taken, placed into the working channel, and the tubular retractor. This then was placed into the interbody mesh device, and compact bone grafting, with with bone into the disc space, until the disc space was elevated, and structural stability was given, to stabilize the disc space,, and getting a good solid surface of structural support, in the interbody space. This allowed for some reduction of the spondylolisthesis. I also allow me to visualize and neural foramina, and make certain that the neural foramen were noted were decompression of the exiting traversing nerve root. Neural foraminal decompression and spinal canal decompression. With placement of the interbody mesh device and the structural graft, and reduction of the spondylolisthesis, this allowed for decompression of the exiting nerve root, and the traversing nerve roots. This was carefully confirmed, with fluoroscopy. An direct visualization.Exiting and traversing nerve root. Confirming EMG nerve conduction studies, normal. Confirming, that the neural foraminal decompressed at least 50% compared to the preoperative evaluation. With placement of the screws, and distraction, further decompression of the nerve roots. Decompression exiting L5 nerve root, and traversing S1 nerve root. Posterior instrumentation L5-S1 nonsegmental.-[id number] screw instrumentation through separate incisions, right and left side, L5-S1. Small incisions were made, approximately 1-1/2 inches right and left side overlying the L5-S1 level, approximately 6 cm off the midline. Very carefully dissected the skin and subcutaneous tissue, down onto the juncture of the transverse process with the pedicle, L5 and S1, right and left side. Jamshidi needle and placed down the longitudinal axis, L5 and S1 right and left side. Follow with the guidewire, 2 plane fluoroscopy. Tapping, each pedicle, with the tap, and measured for screw length. Pedicle screws and placed into L5 and S1. S1 pedicle screw kept proud compared to L5. Neuroforaminal visualization. subsequent placement of posterior lateral bone graft, along the lateral margins of the instrumentation. Then carefully measured and the interpedicular distance of the screws, between L5-S1. Talon lenghth was measured, and corrective mathematics used to select talon length. The talon then was very carefully placed to L5-S1 with direct visualization, an fluoroscopy. The talon was set screw locked into position, at S1, leaving it proud at L5 Then slowly tightening the screw, L5 right and left side to help reduced the spondylolisthesis.Furthe canal and foramen decompression. With the screws locked in position and the rods locked in position, grasping the talon, again stressing of the L4-5 disc space through the L5-S1 construct, show that no motion occurred through L4-5, confirming the L4-5 is stable at this time. Wound closure The wound was closed in the standard fashion. This was done by first irrigation of the wound with antibiotic solution. Deep fascia repaired with #1 Vicryl subcutaneous tissue with 2 Vicryl. The skin was closed, with azucena, followed by antibiotic ointment, and antibiotic dressing.Wound sealed with dermabond. Sponge count was correct. Postoperative x-ray showing placement of the interbody spacer, rods and screws, decompression. Transferred to recovery room The patient was very gently transferred on postop recovery bed, and to recovery room. Sincerely, Dr. Vu Hays, April 18, 2019, 947 Eastern standard time Vu Hays M.D. Electronically signed by [facility] Conversion Health Science Specialist Cerner at 12/16/2022 10:48 AM CDT documented in this encounter Plan of Treatment Upcoming Encounters Date Type Department Care Team (Late st Contact Info) Description 11/03/2025 12:45 PM EST Office Visit [facility] Pulmonology - [address] [place] [address] Ben Barrios MD [address] [place] [address] documented as of this encounter Visit Diagnoses Not on filedocumented in this encounter Care Teams [employer] Relationship Specialty Start Date End Date Amie Pena MD [address] [place] [address] [place] [address] PCP - General Family Medicine 10/31/22 04/08/23 Marvel Grayson MD [address] [place] [address] [place] [address] PCP - General Family Medicine 05/17/23 Marvel Grayson [address] [place] [address] Family Practice 04/09/23 documented as of this encounter
--- OUTSIDE RECORDS SUMMARY | 2025-07-02 14:04 | XMS_ITS | Encounter Summary ---
Author Organization [employer] ([place], [place], [place], [place]) Address [address] [place] [address] Care Team Providers Care Resident Advisor Name Role Phone Amie Pena MD Primary Care Provider [phone] Marvel Grayson MD Primary Care Provider [phone] Encounter Details Date Type Department Care Team (Late st Contact Info) Description 03/10/2019 Transcribed Document [facility] [place] [address] [place] [id number] ProviderMik MD [address] [place] [id number] Social History Tobacco Use Types Packs/Day Years Used Date Smoking Tobacco: Never Assessed Comments Unknown Sex and Gender Information Value Date Recorded Sex Assigned at Not on file Legal Sex Female 6:09 PM CDT Gender Identity Not on file Sexual Orientation Not on file documented as of this encounter Miscellaneous Notes * Cerner Conversion Note - Mik ProviderMD - 03/10/2019 4:18 PM CDT [address] [address] PRATIK SHABAZZ :1970 Visit Time:03/10/2019 Your Visit Summary Your Care Team Admitting Physician - BERNABE NOBLE MD-EMR Attending Physician - BERNABE NOBLE MD-EMR Primary Care Physician - ELENO, ELOY JENKINS Referring Physician - ELENO, SELF REFERRED Your Diagnosis Back pain Sacroiliitis Medical Information You may obtain a copy [...] do next Follow-Up Appointments Follow Up with [facility] When Within 2 to 3 days Where: [address] [place] [address] [address] [place] [address]- Business (1) Follow Up with FOLLOW UP WITH DR [facility] LIGHT DUTY NO LIFTING/TWISTING TILL SEEN BY MD ON SUNDAY. FURTHER RESTRICTION PER HIS ORDER. When Within 2 to 3 days Follow Up with [facility] When Within As needed Comments Patient stated she would like to wait until after her procedure to establish a primary care physician. Whenever you are ready, feel free to contact our Patient [facility] at [phone] for assistance establishing with a primary care physician. Follow Up with NO [facility] DR JOHANSEN When Within 2 to 3 days Allergies Cymbalta (suicidal) Haldol (Hives) Ultram Vraylar codeine (Respiratory depression) doxycycline penicillin Immunizations This Visit No Immunizations Found Medications What How Much When Instructions Next Dose New acetaminophen-hydrocodone (Daisetta 5 mg-325 mg oral tablet) 1 Tablet(s) Oral Every 6 Hours as needed for for pain Duration: 3 Day(s) Printed Prescription New lidocaine topical (Lidoderm 5% topical film) 1 Patch(es) TransDermal Every Day as needed for BACK PAIN Duration: 5 Day(s) remove patches after 12 hours Printed Prescription New tiZANidine (Zanaflex 4 mg oral capsule) 1 Capsule(s) Oral Three Times A Day as needed for 15 Duration: 5 Day(s) not to exceed 3 doses/ day Printed Prescription The home medications listed are only as [...] This Visit (last charted value for your 03/10/2019 visit) No Laboratory or Other Results This Visit Education Materials Sacroiliac Joint Dysfunction Sacroiliac joint dysfunction is a condition that causes inflammation on one or both sides of the sacroiliac (SI) joint. The SI joint connects the lower part of the spine (sacrum) with the two upper portions of the pelvis (ilium). This condition causes deep aching or burning pain in the low back. In some cases, the pain may also spread into one or both buttocks or hips or spread down the legs. What are the causes? This condition may be caused by: ??? . During , extra stress is put on the SI joints because the pelvis widens. ??? Injury, such as: ? Car accidents. ? Sport-related injuries. ? Work-related injuries. ??? Having one leg that is shorter than the other. ??? Conditions that affect the joints, such as: ? Rheumatoid arthritis. ? Gout. ? Psoriatic arthritis. ? Joint infection (septic arthritis). Sometimes, the cause of SI joint dysfunction is not known. What are the signs or symptoms? Symptoms of this condition include: ??? Aching or burning pain in the lower back. The pain may also spread to other areas, such as: ? Buttocks. ? Groin. ? Thighs and legs. ??? Muscle spasms in or around the painful areas. ??? Increased pain when standing, walking, running, stair climbing, bending, or lifting. How is this diagnosed? Your health care provider will do a physical exam and take your medical history. During the exam, the health care provider may move one or both of your legs to different positions to check for pain. Various tests may be done to help verify the diagnosis, including: ??? Imaging tests to look for other causes of pain. These may include: ? MRI. ? CT scan. ? Bone scan. ??? Diagnostic injection. A numbing medicine is injected into the SI joint using a needle. If the pain is temporarily improved or stopped after the injection, this can indicate that SI joint dysfunction is the problem. How is this treated? Treatment may vary depending on the cause and severity of your condition. Treatment options may include: ??? Applying ice or heat to the lower back area. This can help to reduce pain and muscle spasms. ??? Medicines to relieve pain or inflammation or to relax the muscles. ??? Wearing a back brace (sacroiliac brace) to help support the joint while your back is healing. ??? Physical therapy to increase muscle strength around the joint and flexibility at the joint. This may also involve learning proper body positions and ways of moving to relieve stress on the joint. ??? Direct manipulation of the SI joint. ??? Injections of steroid medicine into the joint in order to reduce pain and swelling. ??? Radiofrequency ablation to burn away nerves that are carrying pain messages from the joint. ??? Use of a device that provides electrical stimulation in order to reduce pain at the joint. ??? Surgery to put in screws and plates that limit or prevent joint motion. This is rare. Follow these instructions at home: ??? Rest as needed. Limit your activities as directed by your health care provider. ??? Take medicines only as directed by your health care provider. ??? If directed, apply ice to the affected area: ? Put ice in a plastic bag. ? Place a towel between your skin and the bag. ? Leave the ice on for 20 minutes, 2???3 times per day. ??? Use a heating pad or a moist heat pack as directed by your health care provider. ??? Exercise as directed by your health care provider or physical therapist. ??? Keep all follow-up visits as directed by your health care provider. This is important. Contact a health care provider if: ??? Your pain is not controlled with medicine. ??? You have a fever. ??? You have increasingly severe pain. Get help right away if: ??? You have weakness, numbness, or tingling in your legs or feet. ??? You lose control of your bladder or bowel. This information is not intended to replace advice given to you by your health care provider. Make sure you discuss any questions you have with your health care provider. Document Released: 11/16/2009 Document Revised: 01/25/2017 Document Reviewed: 04/27/2015 [employer] Interactive Patient Education ?? 2019 [employer]. Emergency Awareness and Preventative Care STROKE is [...] Assistance with quitting is available by contacting 1-503-VGKS-NOW. This is a free resource providing counseling, [...] was given the opportunity to ask questions. Patient/Consulting Sales Manager Name: Patient/Consulting Sales Manager Signature: Relationship to Patient: Clinician/Hospital Consulting Sales Manager Signature: Please Provide a Telephone Number Where You Can Be Reached: Is it Permissible To Leave a Message? Date: Electronically signed by Karthikeyan Bean Conversion Soil Conservation Teacher [place] at 12/16/2022 10:36 AM CDT documented in this encounter Plan of Treatment Upcoming Encounters Date Type Department Care Team (Late st Contact Info) Description 11/03/2025 12:45 PM EST Office Visit [facility] Pulmonology - [address] [place] [id number] Ben Barrios MD [address] [place] [address] documented as of this encounter Visit Diagnoses Not on filedocumented in this encounter Care Teams Resident Advisor Relationship Specialty Start Date End Date Amie Pena MD [address] [place] [address] [place] [address] PCP - General Family Medicine 10/31/22 04/08/23 Marvel Grayson MD [address] [place] [address] [place] [address] PCP - General Family Medicine 05/17/23 Marvel Grayson [address] [place] [address] Family Practice 04/09/23 documented as of this encounter
--- OUTSIDE RECORDS SUMMARY | 2025-07-02 14:04 | XMS_ITS | Encounter Summary ---
Author Organization [employer] ([place], [place], [place], [place]) Address [address] [place] [address] Care Team Providers Care Medical Detail Representative Name Role Phone Amie Pena MD Primary Care Provider [phone] Marvel Grayson MD Primary Care Provider [phone] Encounter Details Date Type Department Care Team (Late st Contact Info) Description 04/18/2019 Transcribed Document [facility] [address] [place] [id number] ProviderMik MD [address] [place] [id number] Social History Tobacco Use Types Packs/Day Years Used Date Smoking Tobacco: Never Assessed Comments Unknown Sex and Gender Information Value Date Recorded Sex Assigned at Not on file Legal Sex Female 6:09 PM CDT Gender Identity Not on file Sexual Orientation Not on file documented as of this encounter Miscellaneous Notes * Cerner Conversion Note - Mik Thorne MD - 04/18/2019 2:31 PM CDT [address] [address] PRATIK SHABAZZ :1970 Visit Time:04/18/2019 Your Visit Summary Your Care Team Admitting Physician - TASHA ORLDAN MD-[facility] Attending Physician - VU HAYS MD-ORT Primary Care Physician - ELOY JOHANSEN DR Referring Physician - COLLEEN SHEPARD MD-[facility] Your Diagnosis Other intervertebral disc degeneration, lumbar region, Other intervertebral disc degeneration, lumbar region Discharge Vitals Temperature 36.3 ??C Heart Rate (Monitored) 85 Respiratory Rate 18 Blood Pressure 101/58 What to do next Instructions From Your Care Team Discharge Follow Up Instructions: as per sx. booking sheet/order on chart- office, [facility], 10-14 days Activity: , minimize bending and twisting. Discharge Activity: No strenuous activities, no heavy lifting over 10 lbs Diet: Discharge Diet: Regular diet as tolerated Wound/Incision Care Instructions: Keep operative site/wound clean and dry, patient may shower daily, if has waterproof dressing.Check dressing prior to discharge, if any soiling, change dressing. Showering/Bathing Instructions: May shower, has waterproof dressing. Follow-Up Appointments Follow Up with VU HAYS MD-ORAgatha When 05/01/2019 09:15 AM EDT Comments Appointment has been made Where: [address] [place] [address]- Medications Take your medications faithfully. Do NOT skip [...] medications per your retail pharmacy guidance. Allergies Cymbalta (suicidal) Haldol (Hives) Ultram (Hives) Vraylar (Suicidal thoughts) codeine (Respiratory depression) doxycycline (Vomiting) penicillin (Headache) Education Materials What to expect after the Procedure: After the procedure, it is common to have: ??? Pain and swelling. ??? A small amount of blood or clear fluid coming from your incision for up to 7 days ??? It is normal to have a moderate amount of bleeding from the site of the drain that was pulled on the morning after surgery. You can hold pressure on the area for 3-5 minutes and cover with a bandage as needed. Diet: ??? Resume usual diet ??? No alcoholic beverages while taking pain medication ??? Drink 8-10 glasses of water a day to prevent constipation from pain medication ??? Increase fiber to help prevent constipation. Straining can cause increased pressure and pain in your incision area ??? Increase protein to promote healing Driving: ??? Do not drive until your health care provider approves. Ask your health care provider when it is safe to drive if you have an immobilizer on your knee. ??? Do not drive or operate heavy machinery while taking prescription pain medicine. ??? Do not drive for 24 hours if you received a sedative. Activity: ??? No strenuous activity ??? Avoid high-impact activities, including running, jumping rope, and jumping jacks. ??? Avoid sitting for a long time without moving. Get up and move around at least every few hours. ??? Keep legs elevated while seated and place surgery leg on 2-3 pillows, this will decrease swelling ??? Continue using walker until cleared by physical therapy Back Activity ??? Minimize bending, twisting, and lifting. Bathing: ??? May shower ??? Do not take baths, swim, or use a hot tub for one month after surgery. Other: ??? Use ice therapy for 20-30 minutes at a time and leave off for 20-30 minutes at a time. Always keep a towel or cloth between the ice pack and your skin ??? Continue to use Incentive Spirometer 10 times [...] common risk after an orthopedic surgery Symptoms: ??? Swelling of your leg or arm, especially if one side is much worse. ??? Warmth and redness of your leg or arm, especially if one side is much worse. ??? Pain in your arm or leg. If the clot is in your leg, symptoms may be more noticeable or worse when you stand or walk. ??? A feeling of pins and needles, if [...] Diet High fiber foods: To prevent constipation ??? Grains Whole-grain breads. Multigrain cereal. Oats and oatmeal. Brown rice. Barley. Bulgur wheat. Millet. Bran muffins. Popcorn. [place] wafer crackers. ??? Vegetables Sweet potatoes. Spinach. Kale. Artichokes. Cabbage. Broccoli. Green peas. Carrots. Squash. ??? Fruits Berries. Pears. Apples. Oranges. Avocados. Prunes and raisins. Dried figs. ??? Meats and Other Protein Sources [place], kidney, preciado, and soy beans. Split peas. Lentils. Nuts and seeds. ??? Dairy Fiber-fortified yogurt. ??? Beverages Fiber-fortified soy milk. Fiber-fortified orange juice. ??? Other Fiber bars. High-protein foods: To promote healing High-protein foods contain 4 grams (4 g) or more of protein per serving. They include: ??? Beef, ground sirloin (cooked) ??? 3 oz have 24 g of protein. ??? Cheese (hard) ??? 1 oz has 7 g of protein. ??? Chicken breast, boneless and skinless (cooked) ??? 3 oz have 13.4 g of protein. ??? Cottage cheese ??? 1/2 cup has 13.4 g of protein. ??? Egg ??? 1 egg has 6 g of protein. ??? Fish, filet (cooked) ??? 1 oz has 6???7 g of protein. ??? Garbanzo beans (canned or cooked) ??? 1/2 cup has 6???7 g of protein. ??? Kidney beans (canned or cooked) ??? 1/2 cup has 6???7 g of protein. ??? Catherine (cooked) ??? 3 oz has 24 g of protein. ??? Milk ??? 1 cup (8 oz) has 8 g of protein. ??? Nuts (peanuts, pistachios, almonds) ??? 1 oz has 6 g of protein. ??? Peanut butter ??? 1 oz has 7???8 g of protein. ??? Pork tenderloin (cooked) ??? 3 oz has 18.4 g of protein. ??? Pumpkin seeds ??? 1 oz has 8.5 g of protein. ??? Soybeans (roasted) ??? 1 oz has 8 g of protein. ??? Soybeans (cooked) ??? 1/2 cup has 11 g of protein. ??? Soy milk ??? 1 cup (8 oz) has 5???10 g of protein. ??? Soy or vegetable analilia ??? 1 analilia has 11 g of protein. ??? [place] seeds ??? 1 oz has 5.5 g of protein. ??? Tofu (firm) ??? 1/2 cup has 20 g of protein. ??? Tuna (canned in water) ??? 3 oz has 20 g of protein. ??? Yogurt ??? 6 oz has 8 g of protein. Fall Prevention ??? Use night lights. ??? Install grab bars by the toilet and in the tub and shower. Do not use towel bars as grab bars. ??? Use non-skid mats or decals on the floor of the tub or shower. ??? If you need to sit down while you are in the shower, use a plastic, non-slip stool. ??? Keep the floor dry. Immediately clean up any water that spills on the floor. ??? Remove soap buildup in the tub or shower on a regular basis. ??? Remove throw rugs and other tripping hazards from the floor. ??? Place frequently used items in [id number] places ??? Keep electrical cables out of the way. ??? Do not leave any items on the stairs. ??? Make sure that there are handrails on both sides of the stairs. Fix handrails that are broken or loose. Make sure that handrails are as long as the stairways. ??? Check any carpeting to make sure that it is firmly attached to the stairs. Fix any carpet that is loose or worn. ??? Avoid having throw rugs at the top or bottom of stairways, or secure the rugs with carpet tape to prevent them from moving. ??? Wear closed-toe shoes that fit well and support your feet. Wear shoes that have rubber soles or low heels. ??? Use mobility aids as needed, such as canes, walkers, scooters, and crutches. ??? Turn on lights if it is dark. Replace any light bulbs that burn out. ??? Set up furniture so that there are clear paths. Keep the furniture in the same spot. ??? Be aware of any and all pets. ??? Review your medicines with your healthcare provider. [...] ? Using the bathroom. ? Using household assistant hvac mechanic or toxic chemicals. ? Touching or taking [...] recommended as a substitute for hand washing. acetaminophen and oxycodone (a SEET a MIN oh fen and OX i KOE done) Endocet 10/325, Endocet 2.5/325, Endocet 5/325, Endocet 7.5/325, Nalocet, Percocet 10/325, Percocet 2.5/325, Percocet 5/325, Percocet 7.5/325, Primalev, Primlev, Roxicet, Xartemis XR What is the most important information I should know about acetaminophen and oxycodone? MISUSE OF OPIOID MEDICINE CAN CAUSE ADDICTION, OVERDOSE, OR . Keep the medication in a place where others cannot get to it. An overdose of acetaminophen can damage your liver or cause . Call your doctor at once if you have pain in your upper stomach, loss of appetite, dark urine, or jaundice (yellowing of your skin or eyes). Taking opioid medicine during may cause life-threatening withdrawal symptoms in the . Fatal side effects can occur if you use opioid medicine with alcohol, or with other drugs that cause drowsiness or slow your breathing. Stop taking this medicine and call your doctor right away if you have skin redness or a rash that spreads and causes blistering and peeling. What is acetaminophen and oxycodone? Oxycodone is an opioid pain medication, sometimes called a narcotic. Acetaminophen is a less potent pain reliever that increases the effects of oxycodone. Acetaminophen and oxycodone is a combination medicine used to relieve moderate to severe pain. Acetaminophen and oxycodone may also be used for purposes not listed in this medication guide. What should I discuss with my healthcare provider before taking acetaminophen and oxycodone? You should not use this medicine if you are allergic to acetaminophen or oxycodone, or if you have: ?? severe asthma or breathing problems; or ?? a blockage in your stomach or intestines. Tell your doctor if you have ever had: ?? liver disease; ?? a drug or alcohol addiction; ?? kidney disease; ?? a head injury or seizures; ?? urination problems; or ?? problems with your thyroid, pancreas, or gallbladder. If you use opioid medicine while you are , your baby could become dependent on the drug. This can cause life-threatening withdrawal symptoms in the baby after it is born. Babies born dependent on opioids may need medical treatment for several weeks. Do not breast-feed. This medicine can pass into breast milk and cause drowsiness, breathing problems, or in a nursing baby. How should I take acetaminophen and oxycodone? Follow all directions on your prescription label. Never take this medicine in larger amounts, or for longer than prescribed. An overdose can damage your liver or cause . Tell your doctor if the medicine seems to stop working as well in relieving your pain. Never share this medicine with another person, especially someone with a history of drug abuse or addiction. MISUSE CAN CAUSE ADDICTION, OVERDOSE, OR . Keep the medicine in a place where others cannot get to it. Selling or giving away acetaminophen and oxycodone is against the law. Measure liquid medicine carefully. Use the dosing syringe provided, or use a medicine dose-measuring device (not a kitchen spoon). If you need surgery or medical tests, tell the doctor ahead of time that you are using this medicine. You should not stop using this medicine suddenly. Follow your doctor's instructions about tapering your dose. Store at room temperature away from moisture and heat. Keep track of your medicine. You should be aware if anyone is using it improperly or without a prescription. Do not keep leftover opioid medication. Just one dose can cause in someone using this medicine accidentally or improperly. Ask your pharmacist where to locate a drug take-back disposal program. If there is no take-back program, flush the unused medicine down the toilet. What happens if I miss a dose? Since this medicine is used for pain, you are not likely to miss a dose. Skip any missed dose if it is almost time for your next dose. Do not use two doses at one time. What happens if I overdose? Seek emergency medical attention or call the Poison Help line at . An overdose of acetaminophen and oxycodone can be fatal. The first signs of an acetaminophen overdose include loss of appetite, nausea, vomiting, stomach pain, sweating, and confusion or weakness. Later symptoms may include pain in your upper stomach, dark urine, and yellowing of your skin or the whites of your eyes. Overdose can also cause severe muscle weakness, pinpoint pupils, very slow breathing, extreme drowsiness, or coma. What should I avoid while taking acetaminophen and oxycodone? Avoid driving or operating machinery until you know how this medicine will affect you. Dizziness or drowsiness can cause falls, accidents, or severe injuries. Do not drink alcohol. Dangerous side effects or could occur. Ask a doctor or pharmacist before using any other medicine that may contain acetaminophen (sometimes abbreviated as APAP). Taking certain medications together can lead to a fatal overdose. What are the possible side effects of acetaminophen and oxycodone? Get emergency medical help if you have signs of an allergic reaction: hives; difficulty breathing; swelling of your face, lips, tongue, or throat. Opioid medicine can slow or stop your breathing, and may occur. A person caring for you should seek emergency medical attention if you have slow breathing with long pauses, blue colored lips, or if you are hard to wake up. In rare cases, acetaminophen may cause a severe skin reaction that can be fatal. This could occur even if you have taken acetaminophen in the past and had no reaction. Stop taking this medicine and call your doctor right away if you have skin redness or a rash that spreads and causes blistering and peeling. Call your doctor at once if you have: ?? noisy breathing, sighing, shallow breathing; ?? a light-headed feeling, like you might pass out; ?? weakness, tiredness, fever, unusual bruising or bleeding; ?? confusion, unusual thoughts or behavior; ?? problems with urination; ?? liver problems--nausea, upper stomach pain, tiredness, loss of appetite, dark urine, colby-colored stools, jaundice (yellowing of the skin or eyes); or ?? low cortisol levels-- nausea, vomiting, loss of appetite, dizziness, worsening tiredness or weakness. Seek medical attention right away if you have symptoms of serotonin syndrome, such as: agitation, hallucinations, fever, sweating, shivering, fast heart rate, muscle stiffness, twitching, loss of coordination, nausea, vomiting, or diarrhea. Serious side effects may be more likely in older adults and those who are overweight, malnourished, or debilitated. Long-term use of opioid medication may affect fertility (ability to have children) in men or women. It is not known whether opioid effects on fertility are permanent. Common side effects include: ?? dizziness, drowsiness, feeling tired; ?? feelings of extreme happiness or sadness; ?? nausea, vomiting, stomach pain; ?? constipation; or ?? headache. This is not a complete list of side effects and others may occur. Call your doctor for medical advice about side effects. You may report side effects to FDA at 8-647-MTX-2320. What other drugs will affect acetaminophen and oxycodone? You may have breathing problems or withdrawal symptoms if you start or stop taking certain other medicines. Tell your doctor if you also use an antibiotic, antifungal medication, heart or blood pressure medication, seizure medication, or medicine to treat HIV or hepatitis C. Opioid medication can interact with many other drugs and cause dangerous side effects or . Be sure your doctor knows if you also use: ?? cold or allergy medicines, bronchodilator asthma/COPD medication, or a diuretic ('water pill'); ?? medicines for motion sickness, irritable bowel syndrome, or overactive bladder; ?? other narcotic medications--opioid pain medicine or prescription cough medicine; ?? a sedative like Valium--diazepam, alprazolam, lorazepam, Xanax, Klonopin, Versed, and others; ?? drugs that make you sleepy or slow your breathing--a sleeping pill, muscle relaxer, medicine to treat mood disorders or mental illness; ?? drugs that affect serotonin levels in your body--a stimulant, or medicine for depression, Parkinson's disease, migraine headaches, serious infections, or nausea and vomiting. This list is not complete. Other drugs may affect acetaminophen and oxycodone, including prescription and qpbr-doj-abhamuc medicines, vitamins, and herbal products. Not all possible interactions are listed here. Where can I get more information? Your doctor or pharmacist can provide more information about acetaminophen and oxycodone. Remember, keep this and all other medicines out of the reach of children, never share your medicines with others, and use this medication only for the indication prescribed. Every effort has been made to ensure that the information provided by [employer]. ('[employer]') is accurate, up-to-date, and complete, but no guarantee is made to that effect. Drug information contained herein may be time sensitive. [employer] information has been compiled for use by healthcare practitioners and consumers in the [place] and therefore [employer] does not warrant that uses outside of the [place] are appropriate, unless specifically indicated otherwise. [employer] drug information does not endorse drugs, diagnose patients or recommend therapy. [employer] drug information is an informational resource designed [...] effective or appropriate for any given patient. [employer] does not assume any responsibility for any aspect of healthcare administered with the aid of information [employer] provides. The information contained herein is not intended to cover all possible uses, directions, precautions, warnings, drug interactions, allergic reactions, or adverse effects. If you have questions about the drugs you are taking, check with your doctor, nurse or pharmacist. Copyright 3205-2058 [employer]. Version: 18.02. Revision Date: 07/31/2018. acetaminophen and oxycodone (a SEET a MIN oh fen and OX i KOE done) Endocet 10/325, Endocet 2.5/325, Endocet 5/325, Endocet 7.5/325, Nalocet, Percocet 10/325, Percocet 2.5/325, Percocet 5/325, Percocet 7.5/325, Primalev, Primlev, Roxicet, Xartemis XR What is the most important information I should know about acetaminophen and oxycodone? MISUSE OF OPIOID MEDICINE CAN CAUSE ADDICTION, OVERDOSE, OR . Keep the medication in a place where others cannot get to it. An overdose of acetaminophen can damage your liver or cause . Call your doctor at once if you have pain in your upper stomach, loss of appetite, dark urine, or jaundice (yellowing of your skin or eyes). Taking opioid medicine during may cause life-threatening withdrawal symptoms in the . Fatal side effects can occur if you use opioid medicine with alcohol, or with other drugs that cause drowsiness or slow your breathing. Stop taking this medicine and call your doctor right away if you have skin redness or a rash that spreads and causes blistering and peeling. What is acetaminophen and oxycodone? Oxycodone is an opioid pain medication, sometimes called a narcotic. Acetaminophen is a less potent pain reliever that increases the effects of oxycodone. Acetaminophen and oxycodone is a combination medicine used to relieve moderate to severe pain. Acetaminophen and oxycodone may also be used for purposes not listed in this medication guide. What should I discuss with my healthcare provider before taking acetaminophen and oxycodone? You should not use this medicine if you are allergic to acetaminophen or oxycodone, or if you have: ?? severe asthma or breathing problems; or ?? a blockage in your stomach or intestines. Tell your doctor if you have ever had: ?? liver disease; ?? a drug or alcohol addiction; ?? kidney disease; ?? a head injury or seizures; ?? urination problems; or ?? problems with your thyroid, pancreas, or gallbladder. If you use opioid medicine while you are , your baby could become dependent on the drug. This can cause life-threatening withdrawal symptoms in the baby after it is born. Babies born dependent on opioids may need medical treatment for several weeks. Do not breast-feed. This medicine can pass into breast milk and cause drowsiness, breathing problems, or in a nursing baby. How should I take acetaminophen and oxycodone? Follow all directions on your prescription label. Never take this medicine in larger amounts, or for longer than prescribed. An overdose can damage your liver or cause . Tell your doctor if the medicine seems to stop working as well in relieving your pain. Never share this medicine with another person, especially someone with a history of drug abuse or addiction. MISUSE CAN CAUSE ADDICTION, OVERDOSE, OR . Keep the medicine in a place where others cannot get to it. Selling or giving away acetaminophen and oxycodone is against the law. Measure liquid medicine carefully. Use the dosing syringe provided, or use a medicine dose-measuring device (not a kitchen spoon). If you need surgery or medical tests, tell the doctor ahead of time that you are using this medicine. You should not stop using this medicine suddenly. Follow your doctor's instructions about tapering your dose. Store at room temperature away from moisture and heat. Keep track of your medicine. You should be aware if anyone is using it improperly or without a prescription. Do not keep leftover opioid medication. Just one dose can cause in someone using this medicine accidentally or improperly. Ask your pharmacist where to locate a drug take-back disposal program. If there is no take-back program, flush the unused medicine down the toilet. What happens if I miss a dose? Since this medicine is used for pain, you are not likely to miss a dose. Skip any missed dose if it is almost time for your next dose. Do not use two doses at one time. What happens if I overdose? Seek emergency medical attention or call the Poison Help line at . An overdose of acetaminophen and oxycodone can be fatal. The first signs of an acetaminophen overdose include loss of appetite, nausea, vomiting, stomach pain, sweating, and confusion or weakness. Later symptoms may include pain in your upper stomach, dark urine, and yellowing of your skin or the whites of your eyes. Overdose can also cause severe muscle weakness, pinpoint pupils, very slow breathing, extreme drowsiness, or coma. What should I avoid while taking acetaminophen and oxycodone? Avoid driving or operating machinery until you know how this medicine will affect you. Dizziness or drowsiness can cause falls, accidents, or severe injuries. Do not drink alcohol. Dangerous side effects or could occur. Ask a doctor or pharmacist before using any other medicine that may contain acetaminophen (sometimes abbreviated as APAP). Taking certain medications together can lead to a fatal overdose. What are the possible side effects of acetaminophen and oxycodone? Get emergency medical help if you have signs of an allergic reaction: hives; difficulty breathing; swelling of your face, lips, tongue, or throat. Opioid medicine can slow or stop your breathing, and may occur. A person caring for you should seek emergency medical attention if you have slow breathing with long pauses, blue colored lips, or if you are hard to wake up. In rare cases, acetaminophen may cause a severe skin reaction that can be fatal. This could occur even if you have taken acetaminophen in the past and had no reaction. Stop taking this medicine and call your doctor right away if you have skin redness or a rash that spreads and causes blistering and peeling. Call your doctor at once if you have: ?? noisy breathing, sighing, shallow breathing; ?? a light-headed feeling, like you might pass out; ?? weakness, tiredness, fever, unusual bruising or bleeding; ?? confusion, unusual thoughts or behavior; ?? problems with urination; ?? liver problems--nausea, upper stomach pain, tiredness, loss of appetite, dark urine, colby-colored stools, jaundice (yellowing of the skin or eyes); or ?? low cortisol levels-- nausea, vomiting, loss of appetite, dizziness, worsening tiredness or weakness. Seek medical attention right away if you have symptoms of serotonin syndrome, such as: agitation, hallucinations, fever, sweating, shivering, fast heart rate, muscle stiffness, twitching, loss of coordination, nausea, vomiting, or diarrhea. Serious side effects may be more likely in older adults and those who are overweight, malnourished, or debilitated. Long-term use of opioid medication may affect fertility (ability to have children) in men or women. It is not known whether opioid effects on fertility are permanent. Common side effects include: ?? dizziness, drowsiness, feeling tired; ?? feelings of extreme happiness or sadness; ?? nausea, vomiting, stomach pain; ?? constipation; or ?? headache. This is not a complete list of side effects and others may occur. Call your doctor for medical advice about side effects. You may report side effects to FDA at 1-911-NKI-1841. What other drugs will affect acetaminophen and oxycodone? You may have breathing problems or withdrawal symptoms if you start or stop taking certain other medicines. Tell your doctor if you also use an antibiotic, antifungal medication, heart or blood pressure medication, seizure medication, or medicine to treat HIV or hepatitis C. Opioid medication can interact with many other drugs and cause dangerous side effects or . Be sure your doctor knows if you also use: ?? cold or allergy medicines, bronchodilator asthma/COPD medication, or a diuretic ('water pill'); ?? medicines for motion sickness, irritable bowel syndrome, or overactive bladder; ?? other narcotic medications--opioid pain medicine or prescription cough medicine; ?? a sedative like Valium--diazepam, alprazolam, lorazepam, Xanax, Klonopin, Versed, and others; ?? drugs that make you sleepy or slow your breathing--a sleeping pill, muscle relaxer, medicine to treat mood disorders or mental illness; ?? drugs that affect serotonin levels in your body--a stimulant, or medicine for depression, Parkinson's disease, migraine headaches, serious infections, or nausea and vomiting. This list is not complete. Other drugs may affect acetaminophen and oxycodone, including prescription and kaaf-ibh-xarqkkl medicines, vitamins, and herbal products. Not all possible interactions are listed here. Where can I get more information? Your doctor or pharmacist can provide more information about acetaminophen and oxycodone. Remember, keep this and all other medicines out of the reach of children, never share your medicines with others, and use this medication only for the indication prescribed. Every effort has been made to ensure that the information provided by [employer]. ('[employer]') is accurate, up-to-date, and complete, but no guarantee is made to that effect. Drug information contained herein may be time sensitive. [employer] information has been compiled for use by healthcare practitioners and consumers in the [place] and therefore [employer] does not warrant that uses outside of the [place] are appropriate, unless specifically indicated otherwise. [employer] drug information does not endorse drugs, diagnose patients or recommend therapy. [employer] drug information is an informational resource designed [...] effective or appropriate for any given patient. [employer] does not assume any responsibility for any aspect of healthcare administered with the aid of information [employer]You provides. The information contained herein is not intended to cover all possible uses, directions, precautions, warnings, drug interactions, allergic reactions, or adverse effects. If you have questions about the drugs you are taking, check with your doctor, nurse or pharmacist. Copyright 8835-4551 [employer]. Version: 18.02. Revision Date: 07/31/2018. gabapentin (GA ba PEN tin) Gralise, Horizant, Neurontin What is the most important information I should know about gabapentin? Some people have thoughts about suicide while taking this medicine. Children taking gabapentin may have behavior changes. Stay alert to changes in your mood or symptoms. Report any new or worsening symptoms to your doctor. Do not stop using gabapentin suddenly, even if you feel fine. What is gabapentin? Gabapentin is an anti-epileptic drug, also called an anticonvulsant. It affects chemicals and nerves in the body that are involved in the cause of seizures and some types of pain. Gabapentin is used in adults to treat nerve pain caused by herpes virus or shingles (herpes zoster). The Horizant brand of gabapentin is also used to treat restless legs syndrome (RLS). The Neurontin brand of gabapentin is also used to treat seizures in adults and children who are at least 3 years old. Use only the brand and form of gabapentin your doctor has prescribed. Check your medicine each time you get a refill to make sure you receive the correct form. Gabapentin may also be used for purposes not listed in this medication guide. What should I discuss with my healthcare provider before taking gabapentin? You should not use gabapentin if you are allergic to it. To make sure gabapentin is safe for you, tell your doctor if you have ever had: ?? kidney disease (or if you are on dialysis); ?? diabetes; ?? depression, a mood disorder, or suicidal thoughts or actions; ?? a seizure (unless you take gabapentin to treat seizures); ?? liver disease; ?? heart disease; or ?? (for patients with RLS) if you are a day sleeper or work a assembler 1st shift. Some people have thoughts about suicide while taking this medicine. Your doctor should check your progress at regular visits. Your family or other caregivers should also be alert to changes in your mood or symptoms. It is not known whether this medicine will harm an unborn baby. Tell your doctor if you are or plan to become . Seizure control is very important during , and having a seizure could harm both mother and baby. Do not start or stop taking gabapentin for seizures without your doctor's advice, and tell your doctor right away if you become . Gabapentin can pass into breast milk, but effects on the nursing baby are not known. Tell your doctor if you are breast-feeding. How should I take gabapentin? Follow all directions on your prescription label. Do not take this medicine in larger or smaller amounts or for longer than recommended. The Horizant brand of gabapentin should not be taken during the day. For best results, take Horizant with food at about 5:00 in the evening. Both Gralise and Horizant should be taken with food. Neurontin can be taken with or without food. If you break a Neurontin tablet and take only half of it, take the other half at your next dose. Any tablet that has been broken should be used as soon as possible or within a few days. Do not crush, chew, or break an extended-release tablet. Swallow it whole. Measure liquid medicine with the dosing syringe provided, or with a special dose-measuring spoon or medicine cup. If you do not have a dose-measuring device, ask your pharmacist for one. If your doctor changes your brand, strength, or type of gabapentin, your dosage needs may change. Ask your pharmacist if you have any questions about the new kind of gabapentin you receive at the pharmacy. Do not stop using gabapentin suddenly, even if you feel fine. Stopping suddenly may cause increased seizures. Follow your doctor's instructions about tapering your dose. Wear a medical alert tag or carry an ID card stating that you have seizures. Any medical care provider who treats you should know that you take seizure medication. This medicine can cause unusual results with certain medical tests. Tell any doctor who treats you that you are using gabapentin. Store gabapentin tablets and capsules at room temperature away from light and moisture. Store the liquid medicine in the refrigerator. Do not freeze. What happens if I miss a dose? Take the missed dose as soon as you remember. Be sure to take the medicine with food. Skip the missed dose if it is almost time for your next scheduled dose. Do not take extra medicine to make up the missed dose. What happens if I overdose? Seek emergency medical attention or call the Poison Help line at . What should I avoid while taking gabapentin? This medicine may impair your thinking or reactions. Be careful if you drive or do anything that requires you to be alert. Avoid taking an antacid within 2 hours before or after you take gabapentin. Antacids can make it harder for your body to absorb gabapentin. Drinking alcohol with this medicine can cause side effects. What are the possible side effects of gabapentin? Get emergency medical help if you have signs of an allergic reaction: hives; difficult breathing; swelling of your face, lips, tongue, or throat. Seek medical treatment if you have a serious drug reaction that can affect many parts of your body. Symptoms may include: skin rash, fever, swollen glands, flu-like symptoms, muscle aches, severe weakness, unusual bruising, or yellowing of your skin or eyes. This reaction may occur several weeks after you began using gabapentin. Report any new or worsening symptoms to your doctor, such as: mood or behavior changes, anxiety, panic attacks, trouble sleeping, or if you feel impulsive, irritable, agitated, hostile, aggressive, restless, hyperactive (mentally or physically), depressed, or have thoughts about suicide or hurting yourself. Call your doctor at once if you have: ?? increased seizures; ?? severe weakness or tiredness; ?? problems with balance or muscle movement; ?? upper stomach pain; ?? chest pain, new or worsening cough with fever, trouble breathing; ?? severe tingling or numbness; ?? rapid eye movement; or ?? kidney problems--little or no urination, painful or difficult urination, swelling in your feet or ankles. Some side effects are more likely in children taking gabapentin. Contact your doctor if the child taking this medicine has any of the following side effects: ?? changes in behavior; ?? memory problems; ?? trouble concentrating; or ?? acting restless, hostile, or aggressive. Common side effects may include: ?? headache, dizziness, drowsiness, tiredness; ?? swelling in your hands or feet; ?? problems with your eyes; ?? coordination problems; or ?? (in children) fever, nausea, vomiting. This is not a complete list of side effects and others may occur. Call your doctor for medical advice about side effects. You may report side effects to FDA at 7-518-FOZ-7490. What other drugs will affect gabapentin? Taking gabapentin with other drugs that make you sleepy can worsen this effect. Ask your doctor before taking a sleeping pill, narcotic medication, muscle relaxer, or medicine for anxiety, depression, or seizures. Other drugs may interact with gabapentin, including prescription and dzkr-din-zkgvlqg medicines, vitamins, and herbal products. Tell your doctor about all your current medicines and any medicine you start or stop using. Where can I get more information? Your pharmacist can provide more information about gabapentin. Remember, keep this and all other medicines out of the reach of children, never share your medicines with others, and use this medication only for the indication prescribed. Every effort has been made to ensure that the information provided by [employer]. ('[employer]') is accurate, up-to-date, and complete, but no guarantee is made to that effect. Drug information contained herein may be time sensitive. [employer] information has been compiled for use by healthcare practitioners and consumers in the [place] and therefore [employer]You does not warrant that uses outside of the [place] are appropriate, unless specifically indicated otherwise. [employer] drug information does not endorse drugs, diagnose patients or recommend therapy. [employer] drug information is an informational resource designed [...] effective or appropriate for any given patient. [employer] does not assume any responsibility for any aspect of healthcare administered with the aid of information BetterYou provides. The information contained herein is not intended to cover all possible uses, directions, precautions, warnings, drug interactions, allergic reactions, or adverse effects. If you have questions about the drugs you are taking, check with your doctor, nurse or pharmacist. Copyright 7946-4877 [employer]. Version: 14.01. Revision Date: 06/12/2017. Emergency Awareness and Preventative Care STROKE is [...] Assistance with quitting is available by contacting 3-761-MCGO-NOW. This is a free resource providing counseling, [...] and how to prevent infections, visit www.cdc.gov/sepsis. Test Results Laboratory or Other Results This Visit (last charted value for your 04/18/2019 visit) Hematology 04/11/19 13:15:00 WBC: 10.0 K/uL -- Normal range between ( 3.9 and 10.0 ) RBC: 4.40 Million/uL -- Normal range between ( 3.93 and 5.22 ) Hct: 41.0 % -- Normal range between ( 34.1 and 44.9 ) Hgb: 13.4 Gram/dL -- Normal range between ( 11.2 and 15.7 ) Platelet Count: 344 K/uL -- Normal range between ( 163 and 369 ) MCH: 30.5 pg -- Normal range between ( 25.6 and 32.2 ) MCHC: 32.7 Gram/dL -- Normal range between ( 32.3 and 36.5 ) MCV: 93.2 fL -- Normal range between ( 79.0 and 94.8 ) Slide Review: No Eos %: 4.6 % -- Normal range between ( 1.0 and 7.0 ) [place] #: 0.78 K/uL -- Normal range between ( 0.24 and 0.82 ) Eos #: 0.46 K/uL -- Normal range between ( 0.04 and 0.54 ) [place] %: 7.8 % -- Normal range between ( 4.7 and 12.5 ) Baso %: 0.8 % -- Normal range between ( 0.0 and 1.0 ) Baso #: 0.08 K/uL -- Normal range between ( 0.01 and 0.08 ) RDW: 12.9 % -- Normal range between ( 11.6 and 14.4 ) Neut %: 51.1 % -- Normal range between ( 34.0 and 71.0 ) Neut #: 5.14 K/uL -- Normal range between ( 1.56 and 6.13 ) Lymph %: 35.5 % -- Normal range between ( 19.3 and 53.0 ) Lymph #: 3.57 K/uL -- Normal range between ( 1.18 and 3.74 ) MPV: 11.3 fL -- Normal range between ( 9.4 and 12.4 ) IG#: 0 x10(3)/uL IG%: 0 % -- Normal range between ( 0 and 1 ) Urinalysis 04/11/19 13:15:00 Ur RBC: 0-2 /HPF Urine Nitrite: Negative Urine Leukocyte Esterase: Negative Urine Appearance: Clear Urine Glucose Dipstick: Negative Urine Blood Dipstick: Negative Urine Urobilinogen Dipstick: 0.2 EU/dL -- Normal range between ( 0.2 and 1.0 ) Urine Protein Dipstick: Negative Ur Squamous Epithelial Cells: 2-5 /HPF Urine Color: Yellow Ur WBC: None Seen Urine Ketones Dipstick: Negative Ur Mucous: Trace Urine pH Dipstick: 6.0 -- Normal range between ( 6.0 and 8.0 ) Urine Bilirubin Dipstick: Negative mg/dL Urine Specific [place]: 1.019 -- Normal range between ( 1.005 and 1.030 ) [facility] Type.: [facility] 04/11/19 13:15:00 Creatinine Level: 0.64 mg/dL -- Normal range between ( 0.55 and 1.02 ) Sodium Level: 138 mmol/L -- Normal range between ( 136 and 146 ) Potassium Level: 4.0 mmol/L -- Normal range between ( 3.5 and 5.1 ) Chloride Level: 105 mmol/L -- Normal range between ( 102 and 112 ) Carbon Dioxide Level: 26 mmol/L -- Normal range between ( 21 and 32 ) Anion Gap: 11 -- Normal range between ( 9 and 20 ) Bilirubin Total: 0.2 mg/dL -- Normal range between ( 0.2 and 1.3 ) A/G Ratio: 1.1 -- Normal range between ( 1.1 and 2.5 ) ALT: 26 Units/Liter -- Normal range between ( 12 and 78 ) AST: 20 Units/Liter -- Normal range between ( 5 and 37 ) Globulin: 3.3 Gram/dL -- Normal range between ( 1.5 and 4.5 ) Alk Phos: 81 Units/Liter -- Normal range between ( 27 and 136 ) Bun/Creatinine: 17.2 -- Normal range between ( 8.0 and 20.0 ) Calcium Level: 8.7 mg/dL -- Normal range between ( 8.5 and 10.1 ) eGFR : >60 mL/min/1.73m2 eGFR NonAfrican: >60 mL/min/1.73m2 Glucose Level: 95 mg/dL -- Normal range between ( 74 and 106 ) Blood Urea Nitrogen: 11 mg/dL -- Normal range between ( 7 and 22 ) Protein Total: 6.9 Gram/dL -- Normal range between ( 6.4 and 8.2 ) Albumin Level: 3.6 Gram/dL -- Normal range between ( 3.4 and 5.0 ) Coagulation 04/11/19 13:15:00 INR: 1.0 -- Normal range between ( 0.9 and 1.1 ) PT: 10.0 Second(s) -- Normal range between ( 9.6 and 11.5 ) Patient Name:PRATIK SHABAZZ I have received and understand this information and was given the opportunity to ask questions. Patient/Leather Belt Shaper Name: Patient/Leather Belt Shaper Signature: Relationship to Patient: Clinician/Hospital Leather Belt Shaper Signature: Date: documented in this encounter Plan of Treatment Upcoming Encounters Date Type Department Care Team (Late st Contact Info) Description 11/03/2025 12:45 PM EST Office Visit [facility] Pulmonology - [address] [place] [address] Ben Barrios MD [address] [place], [place] [id number] documented as of this encounter Visit Diagnoses Not on filedocumented in this encounter Care Teams Medical Detail Representative Relationship Specialty Start Date End Date Amie Pena MD [facility] [place] [address] PCP - General Family Medicine 10/31/22 04/08/23 Marvle Grayson MD [address] [place] [address] PCP - General Family Medicine 05/17/23 Marvel Grayson [address] [place] [address] Family Practice 04/09/23 documented as of this encounter
--- OUTSIDE RECORDS SUMMARY | 2025-07-02 14:04 | XMS_ITS | Encounter Summary ---
Author Organization [employer] ([place], [place], [place], [place]) Address [address] [place] [address] Care Team Providers Care Ornamental Iron Worker Name Role Phone Amie Pena MD Primary Care Provider [phone] Marvel Grayson MD Primary Care Provider [phone] Encounter Details Date Type Department Care Team (Late st Contact Info) Description 03/10/2019 Transcribed Document [facility] Family Medicine [address] [place] [address] ProviderMik MD [address] [place] [address] Social History Tobacco Use Types Packs/Day Years Used Date Smoking Tobacco: Never Assessed Comments Unknown Sex and Gender Information Value Date Recorded Sex Assigned at Not on file Legal Sex Female 6:09 PM CDT Gender Identity Not on file Sexual Orientation Not on file documented as of this encounter Miscellaneous Notes * Cerner Conversion Note - Mik ProviderMD - 03/10/2019 4:00 PM CDT [address] [address] PRATIK SHABAZZ :1970 Visit Time:03/10/2019 [...] When Within 2 to 3 days Where: [address] [place] [address] [address] [place] [address]- Business (1) Follow Up with FOLLOW UP [...] to contact our Patient Resource Center at [phone] for assistance establishing with a primary care physician. Follow Up with NO [facility] DR JOHANSEN When Within 2 to 3 days Allergies Cymbalta (suicidal) Haldol (Hives) Ultram Vraylar codeine (Respiratory depression) doxycycline penicillin Immunizations This Visit No Immunizations Found Medications What How Much When Instructions Next Dose New acetaminophen-hydrocodone (Register 5 mg-325 mg oral tablet) 1 Tablet(s) [...] 11/16/2009 Document Revised: 01/25/2017 Document Reviewed: 04/27/2015 [employer] Patient Education ?? 2019 [employer]. Emergency Awareness and Preventative Care STROKE is [...] Assistance with quitting is available by contacting 4-707-GQPO-NOW. This is a free resource providing counseling, [...] was given the opportunity to ask questions. Patient/Corporate Legal Manager Name: Patient/Corporate Legal Manager Signature: Relationship to Patient: Clinician/Hospital Corporate Legal Manager Signature: Please Provide a Telephone Number Where You Can Be Reached: Is it Permissible To Leave a Message? Date: documented in this encounter Plan of Treatment Upcoming Encounters Date Type Department Care Team (Late st Contact Info) Description 11/03/2025 12:45 PM EST Office Visit [facility] Pulmonology - [address] [place] [id number] Ben Barrios MD [address] [place] [address] documented as of this encounter Visit Diagnoses Not on filedocumented in this encounter Care Teams Ornamental Iron Worker Relationship Specialty Start Date End Date Amie Pena MD [address] [place] [address] [place] [address] PCP - General Family Medicine 10/31/22 04/08/23 Marvel Grayson MD [address] [place] [address] [place] [address] PCP - General Family Medicine 05/17/23 Marvel Grayson [address] [place] [address] Family Practice 04/09/23 documented as of this encounter
--- OUTSIDE RECORDS SUMMARY | 2025-07-02 14:04 | XMS_ITS | Encounter Summary ---
Author Organization [employer] ([place], [place], [place], [place]) Address [address] [place] [address] Care Team Providers Care Supervisor Sign Shop Name Role Phone Amie Pena MD Primary Care Provider [phone] Marvel Grayson MD Primary Care Provider [phone] Encounter Details Date Type Department Care Team (Late st Contact Info) Description 04/09/2019 Transcribed Document [facility] [place] [address] [place] [address] ProviderMik MD [address] [place] [address] Social History Tobacco Use Types Packs/Day Years Used Date Smoking Tobacco: Never Assessed Comments Unknown Sex and Gender Information Value Date Recorded Sex Assigned at Not on file Legal Sex Female 6:09 PM CDT Gender Identity Not on file Sexual Orientation Not on file documented as of this encounter Miscellaneous Notes * Cerner Conversion Note - Mik ProviderMD - 04/09/2019 4:00 PM CDT UM Authorization Entered On: 04/09/2019 16:04 EDT Performed On: 04/09/2019 16:00 EDT by FREDERIC PHAM RN-Utilization Review Primary Insurance Authorization Authorization and Policy Numbers : Insurance 1 Health Plan: [employer] Policy Number: [id number] Authorization Number: Insurance Primary Name : [employer] Policy Number: [id number] Authorization Status-Primary : Admit approved Authorization Number-Primary : [id number] Number of Days Authorized-Primary : 1 Authorized Service Begin Date-Primary : 04/18/2019 EDT Authorized Service End Date-Primary : 04/18/2019 EDT Authorization Comments-Primary : [employer] approved per availity for inpt 1 day -- Jesenia will f/u for clinicals herself Historical Authorization Comments-Primary : No Authorization Comments Found FREDERIC PHAM RN-Utilization Review - 04/09/2019 16:00 EDT Electronically signed by [facility] Conversion Slurry Man Cerner at 12/16/2022 10:42 AM CDT documented in this encounter Plan of Treatment Upcoming Encounters Date Type Department Care Team (Late st Contact Info) Description 11/03/2025 12:45 PM EST Office Visit [facility] Pulmonology - [address] [place] [address] Ben Barrios MD [address] [place] [address] documented as of this encounter Visit Diagnoses Not on filedocumented in this encounter Care Teams Supervisor Sign Shop Relationship Specialty Start Date End Date Amie Pena [facility] [address] [facility] [place] [address] PCP - General Family Medicine 10/31/22 04/08/23 Marvel Grayson MD [address] [place] [address] PCP - General Family Medicine 05/17/23 Marvel Grayson [address] [place], [place] [id number] Family Practice 04/09/23 documented as of this encounter
--- OUTSIDE RECORDS SUMMARY | 2025-07-02 14:04 | XMS_ITS | Encounter Summary ---
Author Organization [employer] ([place], [place], [place], [place]) Address [address] [place] [address] Care Team Providers Care Polymer Engineer Name Role Phone Amie Pena MD Primary Care Provider [phone] Marvel Grayson MD Primary Care Provider [phone] Encounter Details Date Type Department Care Team (Late st Contact Info) Description 09/25/2018 Transcribed Document [facility] [place] Family [place] [address] [place] [address] ProviderMik MD [address] [place] [address] Social History Tobacco Use Types Packs/Day Years Used Date Smoking Tobacco: Never Assessed Comments Unknown Sex and Gender Information Value Date Recorded Sex Assigned at Not on file Legal Sex Female 6:09 PM CDT Gender Identity Not on file Sexual Orientation Not on file documented as of this encounter Miscellaneous Notes * Cerner Conversion Note - Mik ProviderMD - 09/25/2018 4:52 PM TRANSIT PLANNER ED Triage Entered On: 09/25/2018 16:58 EST Performed On: 09/25/2018 16:55 EST by PANCHO SAEED BEAD STRINGER Triage Across the Room Triage Date/Time : 09/25/2018 16:52 EST Chief Complaint : sorethoat, no fever, nausea. PANCHO SAEED RN - 09/25/2018 16:55 EST DCP GENERIC CODE Tracking Acuity : 4 - Non - Urgent Tracking Group : [facility] ED Sebastián PANCHO SAEED RN - 09/25/2018 16:55 EST Mode of Arrival : Ambulatory Transported to ED by : Private vehicle To Room Via : Ambulate Accompanied By : Spouse ED Vital Signs : Document Height & Weight : Document ED Allergies : Document ED Reason for Visit : Document Tetanus Immunization : Greater than 10 years PANCHO SAEED RN - 09/25/2018 16:55 EST Infectious Disease History Infectious Disease History : Chicken pox/Shingles, Measles, Mumps, Other: staph LLF 02/2014 Fever/Chills Last 48 Hours : No Travel To Regions with Travel Advisories : No Travel Outside [place] Within Last 30 Days : No Contact With Traveler to Advisory Region : No Tuberculosis Symptoms : None PANCHO SAEED RN - 09/25/2018 16:55 EST Vital Signs ED Temperature Source : Oral Temperature Mode : Fahrenheit Temperature, Fahrenheit : 98 Deg F Clinical Temperature, C : 36.7 Deg C Oxygen Therapy Mode : Room air Peripheral Pulse Rate : 103 bpm (HI) Respiratory Rate : 14 Breaths/Min Systolic Blood Pressure : 122 mmHg Diastolic Blood Pressure : 80 mmHg Oxygen Saturation : 94 % PANCHO SAEED RN - 09/25/2018 16:55 EST Allergy (As Of: 09/25/2018 16:58:08 EST) Allergies (Active) codeine Estimated Onset Date: Unspecified ; Reactions: Respiratory depression ; Comments: Comment 1: Patient has had hydromorphone and tolerated without problem ; Created By: ALBERTO PHELPS PharmD; Reaction Status: Active ; Category: Drug ; Substance: codeine ; Type: Side Effect ; Updated By: ALBERTO PHELPS, [place]; Reviewed Date: 09/25/2018 16:57 EST Cymbalta Estimated Onset Date: Unspecified ; Reactions: suicidal ; Created By: Ariella Hammer Rn; Reaction Status: Active ; Category: Drug ; Substance: Cymbalta ; Type: Allergy ; Updated By: Ariella Hammer Rn; Reviewed Date: 09/25/2018 16:57 EST doxycycline Estimated Onset Date: Unspecified ; Created By: RACHELLE LEA Rn; Reaction Status: Active ; Category: Drug ; Substance: doxycycline ; Type: Allergy ; Updated By: RACHELLE LEA Rn; Reviewed Date: 09/25/2018 16:57 EST Haldol Estimated Onset Date: Unspecified ; Reactions: Hives ; Created By: ALBERTO PHELPS, PharmJasmine; Reaction Status: Active ; Category: Drug ; Substance: Haldol ; Type: Allergy ; Updated By: ALBERTO PHELPS, PharmD; Reviewed Date: 09/25/2018 16:57 EST penicillin Estimated Onset Date: Unspecified ; Created By: CARLOS RAMOS; Reaction Status: Active ; Category: Drug ; Substance: penicillin ; Type: Allergy ; Updated By: CARLOS RAMOS; Reviewed Date: 09/25/2018 16:57 EST Ultram Estimated Onset Date: Unspecified ; Created By: CARLOS RAMOS; Reaction Status: Active ; Category: Drug ; Substance: Ultram ; Type: Allergy ; Updated By: CARLOS RAMOS; Reviewed Date: 09/25/2018 16:57 EST Vraylar Estimated Onset Date: Unspecified ; Created By: Ariella Hammer Rn; Reaction Status: Active ; Category: Drug ; Substance: Vraylar ; Type: Allergy ; Updated By: Ariella Hammer Rn; Reviewed Date: 09/25/2018 16:57 EST Diagnosis Control ED (As Of: 09/25/2018 16:58:08 EST) Problems(Active) Arthritis (SNOMED CT :9488658 ) Name of Problem: Arthritis ; Recorder: LASHANDA WEBER RN; Confirmation: Confirmed ; Classification: Patient Stated ; Code: [id number] ; Contributor System: [employer] ; Last Updated: 02/13/2014 15:57 EDT ; Life Cycle Date: 02/13/2014 ; Life Cycle Status: Active ; Vocabulary: SNOMED CT Asthma (SNOMED CT :[id number] ) Name of Problem: Asthma ; Recorder: PANCHO SAEED RN; Confirmation: Confirmed ; Classification: Medical ; Code: [id number] ; Contributor System: [employer] ; Last Updated: 02/12/2014 19:24 EDT ; Life Cycle Date: 11/28/2013 ; Life Cycle Status: Active ; Vocabulary: SNOMED CT Back pain (SNOMED CT :715339590 ) Name of Problem: Back pain ; Recorder: DENNISE ALVAREZ RN; Confirmation: Confirmed ; Classification: Medical ; Code: [id number] ; Contributor System: [employer] ; Last Updated: 07/13/2014 14:28 EST ; Life Cycle Date: 07/13/2014 ; Life Cycle Status: Active ; Vocabulary: SNOMED CT Fibromyalgia (SNOMED CT :[id number] ) Name of Problem: Fibromyalgia ; Recorder: PANCHO SAEED RN; Confirmation: Confirmed ; Classification: Medical ; Code: [id number] ; Contributor System: [employer] ; Last Updated: 02/12/2014 19:24 EDT ; Life Cycle Date: 11/28/2013 ; Life Cycle Status: Active ; Vocabulary: SNOMED CT H/O: hysterectomy (SNOMED CT :201331570 ) Name of Problem: H/O: hysterectomy ; Recorder: HOWARD HU RN; Confirmation: Confirmed ; Classification: Medical ; Code: [id number] ; Contributor System: [employer] ; Last Updated: 12/29/2016 21:54 EDT ; Life Cycle Date: 12/29/2016 ; Life Cycle Status: Active ; Vocabulary: SNOMED CT heart burn ( : ) Name of Problem: heart burn ; Recorder: MARIAN YAO RN; Confirmation: Confirmed ; Classification: Medical ; Contributor System: [employer] ; Last Updated: 03/29/2015 21:11 EDT ; Life Cycle Date: 03/29/2015 ; Life Cycle Status: Active PTSD (post-traumatic stress disorder) (SNOMED CT :07507327 ) Name of Problem: PTSD (post-traumatic stress disorder) ; Recorder: MARIAN YAO RN; Confirmation: Confirmed ; Classification: Medical ; Code: [id number] ; Contributor System: [employer] ; Last Updated: 03/29/2015 21:19 EDT ; Life Cycle Date: 03/29/2015 ; Life Cycle Status: Active ; Vocabulary: SNOMED CT Sciatica (SNOMED CT :29641270 ) Name of Problem: Sciatica ; Recorder: TRISH MCMAHON RN; Confirmation: Confirmed ; Classification: Medical ; Code: [id number] ; Contributor System: [employer] ; Last Updated: 05/24/2015 17:38 EDT ; Life Cycle Date: 05/24/2015 ; Life Cycle Status: Active ; Vocabulary: SNOMED CT Diagnoses(Active) Nausea Date: 09/25/2018 ; Diagnosis Type: Reason For Visit ; Confirmation: Complaint of ; Clinical Dx: Nausea ; Classification: Medical ; Clinical Service: Emergency medicine ; Code: PNED ; Probability: 0 ; Diagnosis Code: [id number] Throat pain - Adult Date: 09/25/2018 ; Diagnosis Type: Reason For Visit ; Confirmation: Complaint of ; Clinical Dx: Throat pain - Adult ; Classification: Medical ; Clinical Service: Emergency medicine ; Code: PNED ; Probability: 0 ; Diagnosis Code: [id number] ED Height and Weight Height Source : Stated Height Entry Format : [place] Height, Feet : 5 ft(Converted to: 152 cm, 60 Inch) Height, Inches : 1 Inch(Converted to: 0 ft 1 Inch, 2.54 cm) Clinical Height : 154.94 cm Weight Source, ED : Critical estimated dosing weight Weight Entry Format : [place] Weight, Pounds : 205 lb Clinical Dosing Weight : 93.18 kg Body Surface Area (BSA) : 1.91 m2 Body Mass Index : 38.8 kg/m2 (HI) Brick Body Weight (IBW) : 47.45 kg PANCHO SAEED RN - 09/25/2018 16:55 EST documented in this encounter Plan of Treatment Upcoming Encounters Date Type Department Care Team (Late st Contact Info) Description 11/03/2025 12:45 PM EST Office Visit [facility] Pulmonology - [address] [place] [address] Ben Barrios MD [address] [place] [address] documented as of this encounter Visit Diagnoses Not on filedocumented in this encounter Care Teams Polymer Engineer Relationship Specialty Start Date End Date Amie Pena MD [address] [place] [address] [place] [address] PCP - General Family Medicine 10/31/22 04/08/23 Marvel Grayson MD [address] [place] [address] [place] [address] PCP - General Family Medicine 05/17/23 Marvel Grayson [address] [place], [place] [id number] Family Practice 04/09/23 documented as of this encounter
--- OUTSIDE RECORDS SUMMARY | 2025-07-02 14:04 | XMS_ITS | Encounter Summary ---
Author Organization [employer] ([place], [place], [place], [place]) Address [address] [place] [address] Care Team Providers Care Director Of Health Care Marketing Name Role Phone Amie Pena MD Primary Care Provider [phone] Marvel Grayson MD Primary Care Provider [phone] Encounter Details Date Type Department Care Team (Late st Contact Info) Description 03/10/2019 Transcribed Document [facility] [place] [address] [place] [address] ProviderMik MD [address] [place] [address] Social History Tobacco Use Types Packs/Day Years Used Date Smoking Tobacco: Never Assessed Comments Unknown Sex and Gender Information Value Date Recorded Sex Assigned at Not on file Legal Sex Female 6:09 PM CDT Gender Identity Not on file Sexual Orientation Not on file documented as of this encounter Miscellaneous Notes * Cerner Conversion Note - Historical ProviderMD - 03/10/2019 3:54 PM CDT documented in this encounter Plan of Treatment Upcoming Encounters Date Type Department Care Team (Late st Contact Info) Description 11/03/2025 12:45 PM EST Office Visit [facility] Pulmonology - [address] [place] [phone] Ben Barrios MD [address] [place] [address] documented as of this encounter Visit Diagnoses Not on filedocumented in this encounter Care Teams Director Of Health Care Marketing Relationship Specialty Start Date End Date Amie Pena MD [address] [place] [address] PCP - General Family Medicine 10/31/22 04/08/23 Marvel Grayson MD [address] [place] [address] PCP - General Family Medicine 05/17/23 Marvel Grayson [address] [place] [address] Family Practice 04/09/23 documented as of this encounter
--- OUTSIDE RECORDS SUMMARY | 2025-07-02 14:04 | XMS_ITS | Encounter Summary ---
Author Organization [employer] ([place], [place], [place], [place]) Address [address] [place] [address] Care Team Providers Care Hand Alterations Seamstress Name Role Phone Amie Pena MD Primary Care Provider [phone] Marvel Grayson MD Primary Care Provider [phone] Encounter Details Date Type Department Care Team (Late st Contact Info) Description 03/10/2019 Transcribed Document [facility] [place] [address] [place] [address] ProviderMik MD [address] [place] [address] Social History Tobacco Use Types Packs/Day Years Used Date Smoking Tobacco: Never Assessed Comments Unknown Sex and Gender Information Value Date Recorded Sex Assigned at Not on file Legal Sex Female 6:09 PM CDT Gender Identity Not on file Sexual Orientation Not on file documented as of this encounter Miscellaneous Notes * Cerner Conversion Note - Mik ProviderMD - 03/10/2019 12:23 PM CDT ED Assessment Entered On: 03/10/2019 15:55 EDT Performed On: 03/10/2019 15:51 EDT by David Rivas, cd mixer Quick Look Assessment Level of Consciousness : Alert, Awake Affect/Behavior : Appropriate, Calm, Cooperative Orientation : Oriented x 4 Skin Temperature : Warm Skin Description : Normal for ethnicity, [place] David Rivas, Rn - 03/10/2019 15:51 EDT ED General-Functional Assess Information Obtained From : Patient Preferred Communication Mode : Verbal Communication Barrier : None Primary Language : Sammarinese Any Spiritual/Cultural Needs or Requests : No Currently in Unsafe Situation : No David Rivas Rn - 03/10/2019 15:51 EDT Social Habits Smoking Status : 10 or more cigarettes (1/2 pack or more)/day in last 30 days Smokeless Tobacco Status : Never Desires Tobacco Cessation Medication : No Reason for No Tobacco Cessation Medication : ED/procedural patient only Desires Tobacco Cessation Calc : 1 David Rivas Rn - 03/10/2019 15:51 EDT Social History (As Of: 03/10/2019 15:55:25 EDT) Tobacco: Use in Last 12 Months: Cigarettes. Smoking Status Current every day smoker. Years of Use: 30. Packs/Tins Daily: 1. (Last Updated: 03/29/2015 21:16:03 EDT by MARIAN YAO, RN) 10 or more cigarettes (1/2 pack or more)/day in last 30 days Smoking Status. (Last Updated: 09/25/2018 17:08:54 EST by Tahira Coffey, Rickey) Alcohol: Use in Last 12 Months: No. (Last Updated: 11/28/2013 12:39:53 EDT by DIALLO MCKEON RN) Alcohol Use History Yes. Alcohol Use Comment states very rarely. (Last Updated: 09/17/2014 18:20:29 EST by Tyrone Lennon REGISTERED_NURSE_EMERGENCY_ROO) Substance Abuse: Drug Use Hx: No. (Last Updated: 11/28/2013 12:39:50 EDT by DIALLO MCKEON RN) Nutrition/Health: Caffeine intake amount: pot of coffee daily. (Last Updated: 02/13/2014 15:40:18 EDT by LASHANDA WEBER, RICKEY) Home/Environment: Lives with Significant other. (Last Updated: 07/19/2016 17:26:14 EST by PANCHO SAEED RN) Pain Assessment Pain Assessment : Initial assessment Pain Scale Used : 0-10 Scale Location : Back, lower Quality : Aching, Shooting Pain Radiation : Yes Pain Radiation Location : Other: Leg Pain Improved by : Repositioning Pain Worsened by : Movement Pain Intervention, Drug : Medicated David Rivas Rn - 03/10/2019 15:51 EDT Pain Scale Intensity : 7 David Rivas Rn - 03/10/2019 15:51 EDT Image 4 - Images currently included in the form version of this document have not been included in the text rendition version of the form. Electronically signed by Karthikeyan Bean Conversion Business Services Associate Cerner at 12/16/2022 10:45 AM CDT documented in this encounter Plan of Treatment Upcoming Encounters Date Type Department Care Team (Late st Contact Info) Description 11/03/2025 12:45 PM EST Office Visit [facility] Pulmonology - [address] [place] [address] Ben Barrios MD [address] [place] [address] documented as of this encounter Visit Diagnoses Not on filedocumented in this encounter Care Teams Hand Alterations Seamstress Relationship Specialty Start Date End Date Amie Pena MD [address] [place] [address] [place] [address] PCP - General Family Medicine 10/31/22 04/08/23 Marvel Grayson MD [address] [place] [address] [place] [address] PCP - General Family Medicine 05/17/23 Marvel Grayson [address] [place] [address] Family Practice 04/09/23 documented as of this encounter
--- OUTSIDE RECORDS SUMMARY | 2025-07-02 14:04 | XMS_ITS | Encounter Summary ---
Author Organization [employer] ([place], [place], [place], [place]) Address [address] [place] [address] Care Team Providers Care Hospital Admissions Officer Name Role Phone Amie Pena MD Primary Care Provider [phone] Marvel Grayson MD Primary Care Provider [phone] Encounter Details Date Type Department Care Team (Late st Contact Info) Description 09/25/[address] [facility] [place] Family Medicine [address] [place] [address] ProviderMik MD [address] [place] [address] Social History Tobacco Use Types Packs/Day Years Used Date Smoking Tobacco: Never Assessed Comments Unknown Sex and Gender Information Value Date Recorded Sex Assigned at Not on file Legal Sex Female 6:09 PM CDT Gender Identity Not on file Sexual Orientation Not on file documented as of this encounter Miscellaneous Notes * Cerner Conversion Note - Mik ProviderMD - 09/25/2018 4:52 PM CONTAINER FILLER ED Assessment Entered On: 09/25/2018 17:09 EST Performed On: 09/25/2018 17:08 EST by Tahira Coffey Rn ED Quick Look Assessment Level of Consciousness : Alert, Awake Affect/Behavior : Appropriate Orientation : Oriented x 4 Skin Temperature : Warm Skin Description : Dry Thaira Coffey Rn - 09/25/2018 17:08 EST ED General-Functional Assess Information Obtained From : Patient Preferred Communication Mode : Verbal Communication Barrier : None Primary Language : Barbadian Any Spiritual/Cultural Needs or Requests : No Currently in Unsafe Situation : No Tahira Coffey Rn - 09/25/2018 17:08 EST Social Habits Smoking Status : 10 or more cigarettes (1/2 pack or more)/day in last 30 days Smokeless Tobacco Status : Never Desires Tobacco Cessation Medication : No Reason for No Tobacco Cessation Medication : Refuses FDA approved medications Desires Tobacco Cessation Calc : 1 Tahira Coffey Rn - 09/25/2018 17:08 EST Social History (As Of: 09/25/2018 17:09:03 EST) Tobacco: Use in Last 12 Months: Cigarettes. Smoking Status Current every day smoker. Years of Use: 30. Packs/Tins Daily: 1. (Last Updated: 03/29/2015 21:16:03 EDT by MARIAN YAO, RN) 10 or more cigarettes (1/2 pack or more)/day in last 30 days Smoking Status. (Last Updated: 09/25/2018 17:08:54 EST by Tahira Coffey, Rn) Alcohol: Use in Last 12 Months: No. (Last Updated: 11/28/2013 12:39:53 EDT by DIALLO MCKEON RN) Alcohol Use History Yes. Alcohol Use Comment states very rarely. (Last Updated: 09/17/2014 18:20:29 EST by Tyrone Lennon, REGISTERED_NURSE_EMERGENCY_ROO) Substance Abuse: Drug Use Hx: No. (Last Updated: 11/28/2013 12:39:50 EDT by DIALLO MCKEON, RN) Nutrition/Health: Caffeine intake amount: pot of coffee daily. (Last Updated: 02/13/2014 15:40:18 EDT by LASHANDA WEBER, RN) Home/Environment: Lives with Significant other. (Last Updated: 07/19/2016 17:26:14 EST by PANCHO SAEED RN) documented in this encounter Plan of Treatment Upcoming Encounters Date Type Department Care Team (Late st Contact Info) Description 11/03/2025 12:45 PM EST Office Visit [facility] Pulmonology - [address] [place] [phone] Ben Barrios MD [address] [place] [address] documented as of this encounter Visit Diagnoses Not on filedocumented in this encounter Care Teams Hospital Admissions Officer Relationship Specialty Start Date End Date Amie Pena MD [address] [place] [address] PCP - General Family Medicine 10/31/22 04/08/23 Marvel Grayson MD [address] [place] [address] PCP - General Family Medicine 05/17/23 Marvel Grayson [address] [place] [address] Family Practice 04/09/23 documented as of this encounter
--- OUTSIDE RECORDS SUMMARY | 2025-07-02 14:04 | XMS_ITS | Encounter Summary ---
Author Organization [employer] ([place], [place], [place], [place]) Address [address] [place] [address] Care Team Providers Care Reproduction Technician Name Role Phone Amie Pena MD Primary Care Provider [phone] Marvel Grayson MD Primary Care Provider [phone] Encounter Details Date Type Department Care Team (Late st Contact Info) Description 04/18/2019 Transcribed Document [facility] [place] [address] [place] [address] ProviderMik MD [address] [place] [address] Social History Tobacco Use Types Packs/Day [...] ProviderMD - 04/18/2019 10:48 AM CDT Evaluation, Physical Therapy Entered On: 04/18/2019 12:18 EDT Performed On: 04/18/2019 12:10 EDT by CECILIO MUÑOZ PT General Information, PT Visit Type, PT : Initial evaluation Patient Orders : Order Date Order Ordering 04/18/2019 10:48 PT Evaluation and Treatment Ordered By: VU HAYS MD-ORT Active Diagnoses : No Qualifying Diagnoses Therapy Diagnosis, PT : aftercare following lumbar fusion Admission Date : 04/18/2019 04:50 Personal Devices : Personal Devices No Devices Recorded Assistive Devices : Assistive Devices No Devices Recorded Precautions in Place : Fall prevention measures CECILIO MUÑOZ, PT - 04/18/2019 12:10 EDT General Status Patient Received Status : Supine in bed, Bed alarm activated, Other: SCDs applied. Treatment Start Time : 04/18/2019 11:45 EDT Patient Left Status : Up in chair, Chair alarm activated, RN/PCT informed, Family/Visitors at bedside, Communication board completed, All needs met and within reach, Other: SCDs applied. RN/PCT Informed Comment : RN and patient consenting to treatment this date. Treatment End Time : 04/18/2019 12:05 EDT Treatment Time : 20 Minute(s) CECILIO MUÑOZ, PT - 04/18/2019 12:10 EDT History and Environment Living Situation, Therapy : Home Patient Lives With : Spouse Persons Assisting Patient at Home : Spouse Persons Providing Information : Patient Home Setup : One story Stairs : Yes Stair Location(s) : Outside Outside Stairs, Number of Steps : 2 Railing Outside : No Prior LOF Assist with ADL Comment : Patient was fully independent without AD prior to surgery. History and Environment Comment, PT : Patient lives with and sister in single story home with 1 step to enter. Owns no DME. CECILIO MUÑOZ, PT - 04/18/2019 12:10 EDT Upper Extremity Upper Extremity Dominance : Right Right UE Active ROM : WFL Right UE Strength : WFL Left UE Active ROM : WFL Left UE Strength : [facility] CECILIO MUÑOZ, PT - 04/18/2019 12:10 EDT Lower Extremity RLE Active ROM : WFL Right LE Strength : WF LLE Active ROM : WFL Left LE Strength : [facility] CECILIO MUÑOZ PT - 04/18/2019 12:10 EDT Functional Mobility Mobility Grid Bed Roll Left : Rehab Complete independence Bed Roll Right : Rehab Complete independence Bed Scooting : Rehab Complete independence Supine to Sit : Rehab Complete independence Sit to Stand : Supervision/set-up Bed to Chair : Supervision/set-up Chair to Bed : Supervision/set-up Stand to Sit : Supervision/set-up Sit to Supine : Rehab Complete independence CECILIO MUÑOZ PT - 04/18/2019 12:10 EDT AM PAC Basic Mobility Turning Over in Bed : None Sit Down On/Stand Up From Chair w/ Arms : None Move Back Lying to Sitting Side of Bed : None Moving To/From a Bed to Chair : A little Need to Walk in Hospital Room : A little Climbing 3-5 Steps with a Railing : A little AM[facility] Basic Mobility Raw Score : 21 AM-[facility] Basic Mobility Standardized Score : 50.25 AM-[facility] Basic Mobility CMS 0-100% Score : 28.97 % CECILIO MUÑOZ PT - 04/18/2019 12:10 EDT Image 1 - Images currently included in the form version of this document have not been included in the text rendition version of the form. Gait Training/Assessment, PT Weight Bearing Order Status : WBAT Gait Assistance Level : Supervision Walking Distance : 150 feet Ambulatory Devices : None Gait Deviations : No Stair(s) Ascend/Descend Training : Yes Number of Stairs : 4 steps Stair Height : 6 inches Stair(s) Assist Devices : Rails, one Stair Assist : Supervision CECILIO MUÑOZ PT - 04/18/2019 12:10 EDT Neuromuscular Reeducation, PT Balance Comment : Normal sitting balance and Fair + standing balance without AD. CECILIO MUÑOZ PT - 04/18/2019 12:10 EDT Neurological/Sensory Overall Sensory Response : Intact Response to Pain : Intact CECILIO MUÑOZ PT - 04/18/2019 12:10 EDT Cognition Assessment, PT Orientation : Oriented x 4 CECILIO MUÑOZ PT - 04/18/2019 12:10 EDT [facility] Topics Physical Therapy Education Grid Balance Training : Verbalizes understanding Bed Mobility Training : Verbalizes understanding Caregiver Training : Verbalizes understanding Gait Training : Verbalizes understanding Home Program/Exercises : Verbalizes understanding Home Safety : Verbalizes understanding Role of Physical Therapy : Verbalizes understanding Safety : Verbalizes understanding Stair Training : Verbalizes understanding Transfer Training : Verbalizes understanding Use of Assistive Device : Verbalizes understanding CECILIO MUÑOZ PT - 04/18/2019 12:10 EDT Indication Assesessment, PT Physical Therapy Indicated : No Physical Therapy Not Indicated : No skilled services ind. Interdisciplinary Consultation(s) Needed : No CECILIO MUÑOZ PT - 04/18/2019 12:10 EDT Plan of Care, PT PT Tx Plan/Goals Established w Patient : No Reason Tx/Plan Not Established W/ Pt PT : Evaluation only. CECILIO MUÑOZ, PT - 04/18/2019 12:10 EDT Treatment Note Subjective Comment : Patient was pleasant and cooperative with treatment this date. Patient's Response to Treatment : No adverse reactions to treatment this date. Additional Objective Information : See Evaluaiton. Assessment : Safe to DC home with family to assist. Plan for Treatment : Family to assist x 2-3 days for safety. CECILIO UMÑOZ, PT - 04/18/2019 12:10 EDT Pain Assessment Pain Scaled Used : 0-10 Pain scale Pain Goal, Rehab PT : 3 Pain Score Pre-Intervention : 5 Pain Score During-Intervention : 6 Pain Score Post-Intervention. : 5 Pain Comment : RN notified. CECILIO MUÑOZ, PT - 04/18/2019 12:10 EDT Image 1 - Images currently included in the form version of this document have not been included in the text rendition version of the form. Anticipated Discharge Needs, OT/PT Anticipated Discharge to : Home, with family care Anticipated Home Equipment : None Anticipated D/C Provider Notified : Nursing CECILIO MUÑOZ, PT - 04/18/2019 12:[address] [facility] PT Charges Gait Training Each 15 Min : 1 PT Eval Low Complexity : 1 TONI CECILIO, PT - 04/18/2019 12:10 EDT documented in this encounter Plan of Treatment Upcoming Encounters Date Type Department Care Team (Late st Contact Info) Description 11/03/2025 12:45 PM EST Office Visit [facility] Pulmonology - [address] [place] [address] Ben Barrios MD [address] [place] [address] documented as of this encounter Visit Diagnoses Not on filedocumented in this encounter Care Teams Reproduction Technician Relationship Specialty Start Date End Date Amie Pena MD [address] [place] [address] PCP - General Family Medicine 10/31/22 04/08/23 Marvel Grayson MD [address] [place] [address] PCP - General Family Medicine 05/17/23 Marvel Grayson [address] [place] [address] Family Practice 04/09/23 documented as of this encounter
--- OUTSIDE RECORDS SUMMARY | 2025-07-02 14:04 | XMS_ITS | Encounter Summary ---
Author Organization [employer] ([place], [place], [place], [place]) Address [address] [place] [address] Care Team Providers Care Post Acute Care Registered Nurse Name Role Phone Amie Pena MD Primary Care Provider [phone] Marvel Grayson MD Primary Care Provider [phone] Encounter Details Date Type Department Care Team (Late st Contact Info) Description 04/18/2019 Transcribed Document [facility] [place] Medicine [address] [place] [address] ProviderMik MD [address] [place] [address] Social History Tobacco Use Types Packs/Day Years Used Date Smoking Tobacco: Never Assessed Comments Unknown Sex and Gender Information Value Date Recorded Sex Assigned at Not on file Legal Sex Female 6:09 PM CDT Gender Identity Not on file Sexual Orientation Not on file documented as of this encounter Miscellaneous Notes * [employer] Conversion Note - Historical ProviderMD - 04/18/2019 6:17 AM CDT Pediatric Growth Entered On: 04/18/2019 6:17 EDT Performed On: 04/18/2019 6:17 EDT by Terri Jon Care Asst-Health Unit Coord Height and Weight, Clinical Dosing Height Source : Stated Height Entry Format : [place] Height, Feet : 5 ft(Converted to: 152 cm, 60 Inch) Height, Inches : 11 Inch(Converted to: 0 ft 11 Inch, 27.94 cm) Clinical Height : 180.34 cm Weight Source : Standing scale Weight Entry Format : [place] Clinical Dosing Weight : 91.36 kg Weight, Pounds : 201 lb Body Surface Area (BSA) : 2.12 m2 Body Mass Index : 28.1 kg/m2 (HI) [place] Body Weight : 70 kg Terri Jon Care Asst-Health Unit Coord - 04/18/2019 6:17 EDT Electronically signed by [facility], [facility] Conversion Warehouse Person Cerner at 12/16/2022 10:48 AM CDT documented in this encounter Plan of Treatment Upcoming Encounters Date Type Department Care Team (Late st Contact Info) Description 11/03/2025 12:45 PM EST Office Visit [facility] Pulmonology - [address] [place] [address] Ben Barrios MD [address] [place] [address] documented as of this encounter Visit Diagnoses Not on filedocumented in this encounter Care Teams Post Acute Care Registered Nurse Relationship Specialty Start Date End Date Amie Pena MD [address] [place] [address] PCP - General Family Medicine 10/31/22 04/08/23 Marvel Grayson MD [address] [place] [address] PCP - General Family Medicine 05/17/23 Marvel Grayson [address] [place] [address] Family Practice 04/09/23 documented as of this encounter
--- OUTSIDE RECORDS SUMMARY | 2025-07-02 14:04 | XMS_ITS | Encounter Summary ---
Author Organization [employer] ([place], [place], [place], [place]) Address [address] [place] [address] Care Team Providers Care Ups Driver Name Role Phone Amie Pena MD Primary Care Provider [phone] Marvel Grayson MD Primary Care Provider [phone] Encounter Details Date Type Department Care Team (Late st Contact Info) Description 04/18/2019 Transcribed Document [facility] [place] [address] [place] [address] ProviderMik MD [address] [place] [address] Social History Tobacco Use Types Packs/Day Years Used Date Smoking Tobacco: Never Assessed Comments Unknown Sex and Gender Information Value Date Recorded Sex Assigned at Not on file Legal Sex Female 6:09 PM CDT Gender Identity Not on file Sexual Orientation Not on file documented as of this encounter Miscellaneous Notes * [employer]ner Conversion Note - Mik ProviderMD - 04/18/2019 11:40 AM CDT Pain Assessment Entered On: 04/18/2019 18:24 EDT Performed On: 04/18/2019 13:07 EDT by Nasreen Fishman, RN Intervention Information: acetaminophen-oxyCODONE Performed by Nasreen Fishman, RICKEY on 04/18/2019 12:07:00 EDT acetaminophen-oxyCODONE,1.5Tab Oral,Pain (Moderate 4-6) Pain Assessment Pain Assessment : Follow-up assessment Pain Scale Goal : 4 Pain Scale Used : 0-10 Scale Nasreen Fishman RN - 04/18/2019 18:23 EDT Pain Scale Intensity : 4 Nasreen Fishman RN - 04/18/2019 18:23 EDT Image 4 - Images currently included in the form version of this document have not been included in the text rendition version of the form. documented in this encounter Plan of Treatment Upcoming Encounters Date Type Department Care Team (Late st Contact Info) Description 11/03/2025 12:45 PM EST Office Visit [facility] Pulmonology - [address] [place] [address] Ben Barrios MD [address] [place], [place] [id number] documented as of this encounter Visit Diagnoses Not on filedocumented in this encounter Care Teams Ups Driver Relationship Specialty Start Date End Date Amie Pena MD [address] [place] [address] [place] [address] PCP - General Family Medicine 10/31/22 04/08/23 Marvel Grayson MD [address] [place] [address] PCP - General Family Medicine 05/17/23 Marvel Grayson [address] [place] [address] Family Practice 04/09/23 documented as of this encounter
--- OUTSIDE RECORDS SUMMARY | 2025-07-02 14:04 | XMS_ITS | Encounter Summary ---
Author Organization [employer] ([place], [place], [place], [place]) Address [address] [place] [address] Care Team Providers Care Aircraft Technician Name Role Phone Amie Pena MD Primary Care Provider [phone] Marvel Grayson MD Primary Care Provider [phone] Encounter Details Date Type Department Care Team (Late st Contact Info) Description 04/18/[address] [facility] [place] [address] [place] [address] ProviderMik MD [address] [place] [address] Social History Tobacco Use Types Packs/Day [...] Mik ProviderMD - 04/18/2019 8:10 AM CDT [facility] OR PreOp Summary Primary Physician: VU HAYS MD-ORT Finalized Date/Time: 04/22/19 10:37:16 Pt. Name: PRATIK SHABAZZ Kallie Gonsales/Sex: 1970 Female Med Rec #: [id number] Physician: TASHA ROLDAN MD-INT Financial #: [id number] Pt. Type: I Room/Bed: 526/1 Admit/Disch: 04/18/19 04:50:00 - 04/18/19 15:04:00 Institution: [facility] PreOp Case Times Entry 1 In Preop 04/18/19 06:00:00 Ready for Holding n/a Room Patient Ready for 04/18/19 06:54:00 Surgery Patient Out of Preop 04/18/19 07:28:00 Patient Out of n/a Holding Room Last Modified By: LACEY VELAZQUEZ 04/22/19 10:37:14 [facility] PreOp Case Times Audit 04/22/19 10:37:14 Disk Sharpener: [id number] Modifier: [id number] <+> 1 Patient Out of Preop 04/18/19 06:54:36 Disk Sharpener: [id number] Modifier: [id number] <+> 1 Patient Ready for Surgery Finalized By: LACEY VELAZQUEZ Document Signatures Signed By: LACEY VELAZQUEZ 04/22/19 10:37 documented in this encounter Plan of Treatment Upcoming Encounters Date Type Department Care Team (Late st Contact Info) Description 11/03/2025 12:45 PM EST Office Visit [facility] Pulmonology - [address] [place] [id number] Ben Barrios MD [address] [place] [address] documented as of this encounter Visit Diagnoses Not on filedocumented in this encounter Care Teams Aircraft Technician Relationship Specialty Start Date End Date Amie Pena MD [facility] [place] [address] PCP - General Family Medicine 10/31/22 04/08/23 Marvel Grayson MD [facility] [place] [address] PCP - General Family Medicine 05/17/23 Marvel Grayson [address] [facility] [place] [id number] Family Practice 04/09/23 documented as of this encounter
--- OUTSIDE RECORDS SUMMARY | 2025-07-02 14:04 | XMS_ITS | Encounter Summary ---
Author Organization [employer] ([place], [place], [place], [place]) Address [address] [place] [address] Care Team Providers Care Direct Of Real Estate Name Role Phone Amie Pena MD Primary Care Provider [phone] Marvel Grayson MD Primary Care Provider [phone] Encounter Details Date Type Department Care Team (Late st Contact Info) Description 08/06/2020 Transcribed Document [facility] [place] [address] [place] [address] ProviderMik MD [address] [place] [address] Social History Tobacco Use Types Packs/Day Years Used Date Smoking Tobacco: Never Assessed Comments Unknown Sex and Gender Information Value Date Recorded Sex Assigned at Not on file Legal Sex Female 6:09 PM CDT Gender Identity Not on file Sexual Orientation Not on file documented as of this encounter Miscellaneous Notes * Cerner Conversion Note - Mik ProviderMD - 08/06/2020 1:53 PM METAL MINE INSPECTOR ED Triage Entered On: 08/06/2020 14:04 EST Performed On: 08/06/2020 14:01 EST by RADHA BROOKS, TRANSFER WORKER Triage Across the Room Chief Complaint : pt co back pain and right arm and shoulder pain after fall yesterday Triage Date/Time : 08/06/2020 14:01 EST RADHA BROOKS RN - 08/06/2020 14:01 EST DCP GENERIC CODE Tracking Acuity : 4 - Non - Urgent Tracking Group : [facility] ED Sebastián RADHA BROOKS RN - 08/06/2020 14:01 EST Mode of Arrival : Ambulatory Transported to ED by : Private vehicle To Room Via : Ambulate Accompanied By : Unaccompanied ED Vital Signs : Document Height & Weight : Document ED Allergies : Document ED Reason for Visit : Document Tetanus Immunization : Greater than 10 years RADHA BROOKS RN - 08/06/2020 14:01 EST Infectious Disease History Has the patient ever been tested for COVID-19? : Yes, Patient stated results Negative Date of COVID-19 test known? : No Does patient have symptoms of COVID-19? : No COVID19 Screening : No Experiencing Infectious Disease Symptoms : No symptoms Physical contact outside [place] in the last 30 days : No Infectious Disease History : Chicken pox/Shingles, Influenza, Measles, Mumps, Other: staph LLF 02/2014 Tuberculosis Symptoms : None RADHA BROOKS RN - 08/06/2020 14:01 EST Vital Signs ED Temperature Source : Oral Temperature Mode : Fahrenheit Temperature, Fahrenheit : 98.7 Deg F Clinical Temperature, C : 37.1 Deg C Oxygen Therapy Mode : Room air Peripheral Pulse Rate : 102 bpm (HI) Respiratory Rate : 16 Breaths/Min Systolic Blood Pressure : 162 mmHg (HI) Diastolic Blood Pressure : 89 mmHg Oxygen Saturation : 94 % RADHA BROOKS RN - 08/06/2020 14:01 EST Allergy (As Of: 08/06/2020 14:04:52 EST) Allergies (Active) codeine Estimated Onset Date: Unspecified ; Reactions: Respiratory depression ; Comments: Comment 1: Patient has had hydromorphone and tolerated without problem ; Created By: ALBERTO PHELPS, PharmD; Reaction Status: Active ; Category: Drug ; Substance: codeine ; Type: Side Effect ; Updated By: ALBERTO PHELPS, PharmD; Reviewed Date: 08/06/2020 14:04 EST Cymbalta Estimated Onset Date: Unspecified ; Reactions: suicidal ; Created By: Ariella Hammer Rn; Reaction Status: Active ; Category: Drug ; Substance: Cymbalta ; Type: Allergy ; Updated By: Ariella Hammer Rn; Reviewed Date: 08/06/2020 14:04 EST doxycycline Estimated Onset Date: Unspecified ; Reactions: Vomiting ; Created By: ALLA ZAPATA RN; Reaction Status: Active ; Category: Drug ; Substance: doxycycline ; Type: Allergy ; Updated By: ALLA ZAPATA RN; Reviewed Date: 08/06/2020 14:04 EST Haldol Estimated Onset Date: Unspecified ; Reactions: Hives ; Created By: ALBERTO PHELPS PharmD; Reaction Status: Active ; Category: Drug ; Substance: Haldol ; Type: Allergy ; Updated By: ALBERTO PHELPS, PharmD; Reviewed Date: 08/06/2020 14:04 EST Levaquin Estimated Onset Date: <not entered> 07/05/2018 ; Created By: Nasreen Fishman RN; Reaction Status: Active ; Category: Drug ; Substance: Levaquin ; Type: Allergy ; Severity: Low ; Updated By: Nasreen Fishman RN; Source: Patient ; Reviewed Date: 08/06/2020 14:04 EST penicillin Estimated Onset Date: Unspecified ; Reactions: Headache ; Created By: ALLA ZAPATA RN; Reaction Status: Active ; Category: Drug ; Substance: penicillin ; Type: Allergy ; Updated By: ALLA ZAPATA RN; Reviewed Date: 08/06/2020 14:04 EST Ultram Estimated Onset Date: Unspecified ; Reactions: Hives ; Created By: ALLA ZAPATA RN; Reaction Status: Active ; Category: Drug ; Substance: Ultram ; Type: Allergy ; Updated By: ALLA ZAPATA RN; Reviewed Date: 08/06/2020 14:04 EST Vraylar Estimated Onset Date: Unspecified ; Reactions: Suicidal thoughts ; Created By: ALLA ZAPATA RN; Reaction Status: Active ; Category: Drug ; Substance: Vraylar ; Type: Allergy ; Updated By: ALLA ZAPATA RN; Reviewed Date: 08/06/2020 14:04 EST Diagnosis Control ED (As Of: 08/06/2020 14:04:52 EST) Problems(Active) Arthritis (SNOMED CT :5744213 ) Name of Problem: Arthritis ; Recorder: LASHANDA WEBER RN; Confirmation: Confirmed ; Classification: Patient Stated ; Code: [id number] ; Contributor System: PowerChart ; Last Updated: 02/13/2014 15:57 EDT ; Life Cycle Date: 02/13/2014 ; Life Cycle Status: Active ; Vocabulary: SNOMED CT Asthma (SNOMED CT :[id number] ) Name of Problem: Asthma ; Recorder: PANCHO SAEED RN; Confirmation: Confirmed ; Classification: Medical ; Code: [id number] ; Contributor System: PowerChart ; Last Updated: 02/12/2014 19:24 EDT ; Life Cycle Date: 11/28/2013 ; Life Cycle Status: Active ; Vocabulary: SNOMED CT Back pain (SNOMED CT :244124454 ) Name of Problem: Back pain ; Recorder: DENNISE ALVAREZ RN; Confirmation: Confirmed ; Classification: Medical ; Code: [id number] ; Contributor System: PowerChart ; Last Updated: 07/13/2014 14:28 EST ; Life Cycle Date: 07/13/2014 ; Life Cycle Status: Active ; Vocabulary: SNOMED CT COPD (chronic obstructive pulmonary disease) (SNOMED CT :02477635 ) Name of Problem: COPD (chronic obstructive pulmonary disease) ; Recorder: ALLA ZAPATA RN; Confirmation: Confirmed ; Classification: Medical ; Code: [id number] ; Contributor System: [employer] ; Last Updated: 04/11/2019 13:15 EDT ; Life Cycle Date: 04/11/2019 ; Life Cycle Status: Active ; Vocabulary: SNOMED CT COPD exacerbation (SNOMED CT :506200690 ) Name of Problem: COPD exacerbation ; Recorder: YURIY CASEY; Confirmation: Confirmed ; Classification: Medical ; Code: [id number] ; Contributor System: PowerChart ; Last Updated: 07/07/2019 11:33 EST ; Life Cycle Status: Active ; Responsible Provider: YURIY CASEY; Vocabulary: SNOMED CT Fibromyalgia (SNOMED CT :[id number] ) Name of Problem: Fibromyalgia ; Recorder: PANCHO SAEED RN; Confirmation: Confirmed ; Classification: Medical ; Code: [id number] ; Contributor System: PowerChart ; Last Updated: 02/12/2014 19:24 EDT ; Life Cycle Date: 11/28/2013 ; Life Cycle Status: Active ; Vocabulary: SNOMED CT H/O: hysterectomy (SNOMED CT :552145337 ) Name of Problem: H/O: hysterectomy ; Recorder: HOWARD HU RN; Confirmation: Confirmed ; Classification: Medical ; Code: [id number] ; Contributor System: PowerChart ; Last Updated: 12/29/2016 21:54 EDT ; Life Cycle Date: 12/29/2016 ; Life Cycle Status: Active ; Vocabulary: SNOMED CT heart burn (SNOMED CT :06226255 ) Name of Problem: heart burn ; Recorder: MARIAN YAO RN; Confirmation: Confirmed ; Classification: Medical ; Code: 94031212 ; Contributor System: PowerChart ; Last Updated: 01/20/2019 18:21 EDT ; Life Cycle Date: 03/29/2015 ; Life Cycle Status: Active ; Vocabulary: SNOMED CT Irritable bowel syndrome (SNOMED CT :88226840 ) Name of Problem: Irritable bowel syndrome ; Recorder: Yi Hardy Rn; Confirmation: Confirmed ; Classification: Medical ; Code: 64477456 ; Contributor System: PowerChart ; Last Updated: 04/18/2019 6:31 EDT ; Life Cycle Date: 04/18/2019 ; Life Cycle Status: Active ; Vocabulary: SNOMED CT Migraine (SNOMED CT :62441620 ) Name of Problem: Migraine ; Recorder: Yi Hardy Rn; Confirmation: Confirmed ; Classification: Medical ; Code: [id number] ; Contributor System: PowerChart ; Last Updated: 04/18/2019 6:30 EDT ; Life Cycle Date: 04/18/2019 ; Life Cycle Status: Active ; Vocabulary: SNOMED CT Peripheral neuropathy (SNOMED CT :650223256 ) Name of Problem: Peripheral neuropathy ; Recorder: Yi Hardy Rn; Confirmation: Confirmed ; Classification: Medical ; Code: [id number] ; Contributor System: PowerChart ; Last Updated: 04/18/2019 6:32 EDT ; Life Cycle Date: 04/18/2019 ; Life Cycle Status: Active ; Vocabulary: SNOMED CT PTSD (post-traumatic stress disorder) (SNOMED CT :80096549 ) Name of Problem: PTSD (post-traumatic stress disorder) ; Recorder: MARIAN YAO RN; Confirmation: Confirmed ; Classification: Medical ; Code: 75897037 ; Contributor System: [employer] ; Last Updated: 03/29/2015 21:19 EDT ; Life Cycle Date: 03/29/2015 ; Life Cycle Status: Active ; Vocabulary: SNOMED CT Sciatica (SNOMED CT :07262116 ) Name of Problem: Sciatica ; Recorder: TRISH MCMAHON RN; Confirmation: Confirmed ; Classification: Medical ; Code: 47923002 ; Contributor System: PowerChart ; Last Updated: 05/24/2015 17:38 EDT ; Life Cycle Date: 05/24/2015 ; Life Cycle Status: Active ; Vocabulary: SNOMED CT Diagnoses(Active) Fall Date: 08/06/2020 ; Diagnosis Type: Reason For Visit ; Confirmation: Complaint of ; Clinical Dx: Fall ; Classification: Medical ; Clinical Service: Emergency medicine ; Code: PNED ; Probability: 0 ; Diagnosis Code: [id number] ED Height and Weight Height Source : Estimated Height Entry Format : [place] Height, Feet : 5 ft(Converted to: 152 cm, 60 Inch) Height, Inches : 11 Inch(Converted to: 0 ft 11 Inch, 27.94 cm) Clinical Height : 180.34 cm Weight Source, ED : Critical estimated dosing weight Weight Entry Format : [place] Weight, Pounds : 200 lb Clinical Dosing Weight : 90.91 kg Body Surface Area (BSA) : 2.11 m2 Body Mass Index : 28 kg/m2 (HI) [place] Body Weight (IBW) : 70.31 kg RADHA BROOKS RN - 08/06/2020 14:01 EST documented in this encounter Plan of Treatment Upcoming Encounters Date Type Department Care Team (Late st Contact Info) Description 11/03/2025 12:45 PM EST Office Visit [facility] Pulmonology - [address] [place] [address] Ben Barrios MD [address] [place] [address] documented as of this encounter Visit Diagnoses Not on filedocumented in this encounter Care Teams Direct Of Real Estate Relationship Specialty Start Date End Date Amie Pena MD [address] [place] [address] PCP - General Family Medicine 10/31/22 04/08/23 Marvel Grayson MD [address] [place] [address] PCP - General Family Medicine 05/17/23 Marvel Grayson [address] [place] [address] Family Practice 04/09/23 documented as of this encounter
--- OUTSIDE RECORDS SUMMARY | 2025-07-02 14:04 | XMS_ITS | Encounter Summary ---
Author Organization [employer] ([place], [place], [place], [place]) Address [address] [place] [address] Care Team Providers Care Sharepoint Specialist Name Role Phone Amie Pena MD Primary Care Provider [phone] Marvel Grayson MD Primary Care Provider [phone] Encounter Details Date Type Department Care Team (Late st Contact Info) Description 04/18/2019 Transcribed Document [facility] [place] [address] [place] [address] ProviderMik MD [address] [place] [address] Social History Tobacco Use Types Packs/Day Years Used Date Smoking Tobacco: Never Assessed Comments Unknown Sex and Gender Information Value Date Recorded Sex Assigned at Not on file Legal Sex Female 6:09 PM CDT Gender Identity Not on file Sexual Orientation Not on file documented as of this encounter Miscellaneous Notes * Cerner Conversion Note - Mik ProviderMD - 04/18/2019 2:31 PM CDT Stroke/Warfarin Instructions Entered On: 04/18/2019 14:31 EDT Performed On: 04/18/2019 14:31 EDT by Nasreen Fishman RN Stroke/Warfarin Instructions Stroke/TIA Discharge Ins : N/A Warfarin Discharge Ins : N/A Nasreen Fishman RN - 04/18/2019 14:31 EDT documented in this encounter Plan of Treatment Upcoming Encounters Date Type Department Care Team (Late st Contact Info) Description 11/03/2025 12:45 PM EST Office Visit [facility] Pulmonology - [address] [place] [id number] Ben Barrios MD [address] [place] [address] documented as of this encounter Visit Diagnoses Not on filedocumented in this encounter Care Teams Sharepoint Specialist Relationship Specialty Start Date End Date Amie Pena MD [address] [place] [address] [place] [address] PCP - General Family Medicine 10/31/22 04/08/23 Marvel Grayson MD [address] [place] [address] [place] [address] PCP - General Family Medicine 05/17/23 Marvel Grayson [address] [place] [address] Family Practice 04/09/23 documented as of this encounter
--- OUTSIDE RECORDS SUMMARY | 2025-07-02 14:04 | XMS_ITS | Encounter Summary ---
Author Organization [employer] ([place], [place], [place], [place]) Address [address] [place] [address] Care Team Providers Care Adolescent Specialist Name Role Phone Amie Pena MD Primary Care Provider [phone] Marvel Grayson MD Primary Care Provider [phone] Encounter Details Date Type Department Care Team (Late st Contact Info) Description 03/10/2019 Transcribed Document [facility] [place] [address] [place] [address] ProviderMik MD [address] [place] [address] Social History Tobacco Use Types Packs/Day Years Used Date Smoking Tobacco: Never Assessed Comments Unknown Sex and Gender Information Value Date Recorded Sex Assigned at Not on file Legal Sex Female 6:09 PM CDT Gender Identity Not on file Sexual Orientation Not on file documented as of this encounter Miscellaneous Notes * Cerner Conversion Note - Historical ProviderMD - 03/10/2019 12:23 PM CDT ED Triage Entered On: 03/10/2019 12:29 EDT Performed On: 03/10/2019 12:26 EDT by FARIDA MARSH RAIL SWITCH OPERATOR Triage Across the Room Triage Date/Time : 03/10/2019 12:26 EDT Chief Complaint : c/o lower back pain , pt with hx of chronic back, has an injection scheduled for , pt slow to ambulate FARIDA MARSH RN - 03/10/2019 12:26 EDT DCP GENERIC CODE Tracking Acuity : 4 - Non - Urgent Tracking Group : [facility] [place] FARIDA MARSH RN - 03/10/2019 12:26 EDT Mode of Arrival : Ambulatory Transported to ED by : Private vehicle To Room Via : Ambulate Accompanied By : Unaccompanied ED Vital Signs : Document Height & Weight : Document ED Allergies : Document ED Reason for Visit : Document Tetanus Immunization : Greater than 10 years FARIDA MARSH RN - 03/10/2019 12:26 EDT Infectious Disease History Infectious Disease History : Chicken pox/Shingles, Measles, Mumps, Other: staph LLF 02/2014 Fever/Chills Last 48 Hours : No Travel To Regions with Travel Advisories : No Travel Outside [place] Within Last 30 Days : No Contact With Traveler to Advisory Region : No Tuberculosis Symptoms : None FARIDA MARSH RN - 03/10/2019 12:26 EDT Vital Signs ED Temperature Source : Tympanic Temperature Mode : Fahrenheit Temperature, Fahrenheit : 98.4 Deg F ED Pain : Yes Clinical Temperature, C : 36.9 Deg C Oxygen Therapy Mode : Room air Peripheral Pulse Rate : 95 bpm Respiratory Rate : 18 Breaths/Min Systolic Blood Pressure : 126 mmHg Diastolic Blood Pressure : 84 mmHg Oxygen Saturation : 95 % FARIDA MARSH RN - 03/10/2019 12:26 EDT Allergy (As Of: 03/10/2019 12:29:35 EDT) Allergies (Active) codeine Estimated Onset Date: Unspecified ; Reactions: Respiratory depression ; Comments: Comment 1: Patient has had hydromorphone and tolerated without problem ; Created By: ALBERTO PHELPS, [place]; Reaction Status: Active ; Category: Drug ; Substance: codeine ; Type: Side Effect ; Updated By: ALBERTO PHELPS, Xnea; Reviewed Date: 03/10/2019 12:27 EDT Cymbalta Estimated Onset Date: Unspecified ; Reactions: suicidal ; Created By: Ariella Hammer Rn; Reaction Status: Active ; Category: Drug ; Substance: Cymbalta ; Type: Allergy ; Updated By: Ariella Hammer Rn; Reviewed Date: 03/10/2019 12:27 EDT doxycycline Estimated Onset Date: Unspecified ; Created By: RACHELLE LEA Rn; Reaction Status: Active ; Category: Drug ; Substance: doxycycline ; Type: Allergy ; Updated By: RACHELLE LEA Rn; Reviewed Date: 03/10/2019 12:27 EDT Haldol Estimated Onset Date: Unspecified ; Reactions: Hives ; Created By: ALBERTO PHELPS, PharmD; Reaction Status: Active ; Category: Drug ; Substance: Haldol ; Type: Allergy ; Updated By: ALBERTO PHELPS, PharmD; Reviewed Date: 03/10/2019 12:27 EDT penicillin Estimated Onset Date: Unspecified ; Created By: CARLOS RAMOS; Reaction Status: Active ; Category: Drug ; Substance: penicillin ; Type: Allergy ; Updated By: CARLOS RAMOS; Reviewed Date: 03/10/2019 12:27 EDT Ultram Estimated Onset Date: Unspecified ; Created By: CARLOS RAMOS; Reaction Status: Active ; Category: Drug ; Substance: Ultram ; Type: Allergy ; Updated By: CARLOS RAMOS; Reviewed Date: 03/10/2019 12:27 EDT Vraylar Estimated Onset Date: Unspecified ; Created By: Ariella Hammer Rn; Reaction Status: Active ; Category: Drug ; Substance: Vraylar ; Type: Allergy ; Updated By: Ariella Hammer Rn; Reviewed Date: 03/10/2019 12:27 EDT Diagnosis Control ED (As Of: 03/10/2019 12:29:35 EDT) Problems(Active) Arthritis (SNOMED CT :0565353 ) Name of Problem: Arthritis ; Recorder: LASHANDA WEBER RN; Confirmation: Confirmed ; Classification: Patient Stated ; Code: 4130849 ; Contributor System: ByteActive ; Last Updated: 02/13/2014 15:57 EDT ; Life Cycle Date: 02/13/2014 ; Life Cycle Status: Active ; Vocabulary: SNOMED CT Asthma (SNOMED CT :[id number] ) Name of Problem: Asthma ; Recorder: PANCHO SAEED RN; Confirmation: Confirmed ; Classification: Medical ; Code: [id number] ; Contributor System: PowerChart ; Last Updated: 02/12/2014 19:24 EDT ; Life Cycle Date: 11/28/2013 ; Life Cycle Status: Active ; Vocabulary: SNOMED CT Back pain (SNOMED CT :629762493 ) Name of Problem: Back pain ; Recorder: DENNISE ALVAREZ RN; Confirmation: Confirmed ; Classification: Medical ; Code: 765698236 ; Contributor System: PowerChart ; Last Updated: 07/13/2014 14:28 EST ; Life Cycle Date: 07/13/2014 ; Life Cycle Status: Active ; Vocabulary: SNOMED CT Fibromyalgia (SNOMED CT :[id number] ) Name of Problem: Fibromyalgia ; Recorder: PANCHO SAEED RN; Confirmation: Confirmed ; Classification: Medical ; Code: [id number] ; Contributor System: PowerChart ; Last Updated: 02/12/2014 19:24 EDT ; Life Cycle Date: 11/28/2013 ; Life Cycle Status: Active ; Vocabulary: SNOMED CT H/O: hysterectomy (SNOMED CT :591219380 ) Name of Problem: H/O: hysterectomy ; Recorder: HOWARD HU RN; Confirmation: Confirmed ; Classification: Medical ; Code: [id number] ; Contributor System: [employer] ; Last Updated: 12/29/2016 21:54 EDT ; Life Cycle Date: 12/29/2016 ; Life Cycle Status: Active ; Vocabulary: SNOMED CT heart burn (SNOMED CT :12304513 ) Name of Problem: heart burn ; Recorder: MARIAN YAO RN; Confirmation: Confirmed ; Classification: Medical ; Code: 36354744 ; Contributor System: PowerChart ; Last Updated: 01/20/2019 18:21 EDT ; Life Cycle Date: 03/29/2015 ; Life Cycle Status: Active ; Vocabulary: SNOMED CT PTSD (post-traumatic stress disorder) (SNOMED CT :55480136 ) Name of Problem: PTSD (post-traumatic stress disorder) ; Recorder: MARIAN YAO RN; Confirmation: Confirmed ; Classification: Medical ; Code: 94663090 ; Contributor System: ByteActive ; Last Updated: 03/29/2015 21:19 EDT ; Life Cycle Date: 03/29/2015 ; Life Cycle Status: Active ; Vocabulary: SNOMED CT Sciatica (SNOMED CT :42740662 ) Name of Problem: Sciatica ; Recorder: TRISH MCMAHON RN; Confirmation: Confirmed ; Classification: Medical ; Code: 04888242 ; Contributor System: ByteActive ; Last Updated: 05/24/2015 17:38 EDT ; Life Cycle Date: 05/24/2015 ; Life Cycle Status: Active ; Vocabulary: SNOMED CT Diagnoses(Active) Back pain Date: 03/10/2019 ; Diagnosis Type: Reason For Visit ; Confirmation: Complaint of ; Clinical Dx: Back pain ; Classification: Medical ; Clinical Service: Emergency medicine ; Code: PNED ; Probability: 0 ; Diagnosis Code: [id number] ED Height and Weight Height Source : Stated Height Entry Format : [place] Height, Feet : 5 ft(Converted to: 152 cm, 60 Inch) Height, Inches : 11 Inch(Converted to: 0 ft 11 Inch, 27.94 cm) Clinical Height : 180.34 cm Weight Source, ED : Standing scale Weight Entry Format : [place] Weight, Pounds : 200 lb Clinical Dosing Weight : 90.91 kg Body Surface Area (BSA) : 2.11 m2 Body Mass Index : 28 kg/m2 (HI) [place] Body Weight (IBW) : 70.31 kg FARIDA MARSH RN - 03/10/2019 12:26 EDT Pain Assessment Pain Assessment : Initial assessment Pain Scale Used : 0-10 Scale Location : Back, lower FARIDA MARSH RN - 03/10/2019 12:26 EDT Pain Scale Intensity : 8 SALMAFARIDA Mena RN - 03/10/2019 12:26 EDT Image 4 - Images currently included in the form version of this document have not been included in the text rendition version of the form. documented in this encounter Plan of Treatment Upcoming Encounters Date Type Department Care Team (Late st Contact Info) Description 11/03/2025 12:45 PM EST Office Visit [facility] Pulmonology - [address] [place] [address] Ben Barrios MD [address] [place] [address] documented as of this encounter Visit Diagnoses Not on filedocumented in this encounter Care Teams Adolescent Specialist Relationship Specialty Start Date End Date Amie Pena MD [address] [place] [address] [place] [address] PCP - General Family Medicine 10/31/22 04/08/23 Marvel Grasyon MD [address] [place] [address] [place] [address] PCP - General Family Medicine 05/17/23 Marvel Grayson [address] [place] [address] Family Practice 04/09/23 documented as of this encounter
--- OUTSIDE RECORDS SUMMARY | 2025-07-02 14:05 | XMS_ITS | Encounter Summary ---
Author Organization [employer] ([place], [place], [place], [place]) Address [address] [place] [address] Care Team Providers Care Therapist Physical Name Role Phone Amie Pena MD Primary Care Provider [phone] Marvel Grayson MD Primary Care Provider [phone] Encounter Details Date Type Department Care Team (Late st Contact Info) Description 09/25/2018 Transcribed Document [facility] [place] [address] [place] [address] ProviderMik MD [address] [place] [address] Social History Tobacco Use Types Packs/Day Years Used Date Smoking Tobacco: Never Assessed Comments Unknown Sex and Gender Information Value Date Recorded Sex Assigned at Not on file Legal Sex Female 6:09 PM CDT Gender Identity Not on file Sexual Orientation Not on file documented as of this encounter Miscellaneous Notes * Cerner Conversion Note - Mik ProviderMD - 09/25/2018 5:36 PM LANDSCAPE NURSERYMAN ED Discharge Entered On: 09/25/2018 17:36 EST Performed On: 09/25/2018 17:36 EST by Tahira Coffey Rn Discharge Process Patient Disposition : Discharge Personal Belongings With Patient : Yes Patient Education Completed : Yes Teaching Evaluation : Verbalizes understanding IV Discontinued : Not applicable Nursing Documentation Completed : Yes Tahira Coffey Rn - 09/25/2018 17:36 EST ED Discharge Discharge To : Home with ambulatory/outpatient follow-up Mode Of Departure : Private vehicle Accompanied By : Significant other Discharge Instructions Reviewed With, Opportunity For Questions Given : Patient Prescriptions Given to Patient : Yes Number of Prescriptions Given : 1 Tahira Coffey, Rn - 09/25/2018 17:36 EST Electronically signed by [place], [facility] Conversion Cnmt Cerner at 12/16/2022 10:39 AM CDT documented in this encounter Plan of Treatment Upcoming Encounters Date Type Department Care Team (Late st Contact Info) Description 11/03/2025 12:45 PM EST Office Visit [facility] Pulmonology - [address] [place] [address] Ben Barrios MD [address] [place] [address] documented as of this encounter Visit Diagnoses Not on filedocumented in this encounter Care Teams Therapist Physical Relationship Specialty Start Date End Date Amie Pena MD [address] [place] [address] [place] [address] PCP - General Family Medicine 10/31/22 04/08/23 Marvel Grayson MD [address] [place] [address] [place] [address] PCP - General Family Medicine 05/17/23 Marvel Grayson [address] [place] [address] Family Practice 04/09/23 documented as of this encounter
--- OUTSIDE RECORDS SUMMARY | 2025-07-02 14:05 | XMS_ITS | Encounter Summary ---
Author Organization [employer] ([place], [place], [place], [place]) Address [address] [place] [address] Care Team Providers Care Purler Name Role Phone Amie Pena MD Primary Care Provider [phone] Marvel Grayson MD Primary Care Provider [phone] Encounter Details Date Type Department Care Team (Late st Contact Info) Description 09/25/2018 Transcribed Document [facility] [place] [address] ProviderMik MD [address] [place] [address] Social History Tobacco Use Types Packs/Day Years Used Date Smoking Tobacco: Never Assessed Comments Unknown Sex and Gender Information Value Date Recorded Sex Assigned at Not on file Legal Sex Female 6:09 PM CDT Gender Identity Not on file Sexual Orientation Not on file documented as of this encounter Miscellaneous Notes * Cerner Conversion Note - Mik ProviderMD - 09/25/2018 5:36 PM SUPERVISOR BROAD[employer] [facility] [address] [place] [address] PERSON INFORMATION Name PRATIK SHABAZZ Age 47 Years 1970 Sex Female Language Canadian PCP COLLEEN SHEPARD [facility] Marital Status Med Service Emergency Medicine Acct# Arrival 09/25/2018 16:52:00 Visit Reason Nausea; Throat pain - Adult; PT STATES POSS STREP Acuity 4 - Non - Urgent LOS 000 00:44 Depart Date: 09/25/18 05:35 PM [facility] [address] Comment: PROVIDER INFORMATION Provider Role Assigned Unassigned Tahira Coffey, chief radiation therapist Nurse 09/25/2018 16:58:53 PAMELA IRELAND PA ED Physician 09/25/2018 16:59:37 DIAGNOSIS Acute bacterial tonsillitis PHYS DOC NOTES VITALS INFORMATION Vital Sign Triage Latest Temp Source Oral Oral Temp Mode Fahrenheit Fahrenheit Temp Fahrenheit 98 Deg F 98 Deg F Temp Celsius 02 Sat 94 % 94 % Respiratory Rate 14 Breaths/Min 14 Breaths/Min Peripheral Pulse Rate 103 bpm 103 bpm Apical Heart Rate Blood Pressure 122 mmHg / 80 mmHg 122 mmHg / 80 mmHg Comment: MEDICAL INFORMATION Allergy Info: Vraylar; Cymbalta; Ultram; Haldol; penicillin; doxycycline; codeine Medications: Prescription Display azithromycin (azithromycin 500 mg oral tablet) 1 Tab, Oral, Tab, Daily, # 5 Tab, 0 Refill(s), Pharmacy: [facility] [id number] Comment: DISCHARGE INFORMATION Discharge Disposition: Home Discharge Location: PATIENT EDUCATION INFORMATION Instructions: Tonsillitis Follow up: With: Address: When: COLLEEN SHEPARD [address] [place] [address], [address] [place] [address] [facility] () Within 2 to 3 days Comment: documented in this encounter Plan of Treatment Upcoming Encounters Date Type Department Care Team (Late st Contact Info) Description 11/03/2025 12:45 PM EST Office Visit [facility] Pulmonology - [address] [place] [address] Ben Barrios MD [address] [place] [address] documented as of this encounter Visit Diagnoses Not on filedocumented in this encounter Care Teams Purler Relationship Specialty Start Date End Date Amie Pena MD [address] [place] [address] PCP - General Family Medicine 10/31/22 04/08/23 Marvel Grayson MD [address] [place] [address] PCP - General Family Medicine 05/17/23 Marvel Grayson [address] [place] [address] Family Practice 04/09/23 documented as of this encounter
--- OUTSIDE RECORDS SUMMARY | 2025-07-02 14:05 | XMS_ITS | Encounter Summary ---
Author Organization [employer] ([place], [place], [place], [place]) Address [address] [place] [address] Care Team Providers Care Health Services Manager Name Role Phone Amie Pena MD Primary Care Provider [phone] Marvel Grayson MD Primary Care Provider [phone] Encounter Details Date Type Department Care Team (Late st Contact Info) Description 11/22/2018 Transcribed Document [facility] [place] [address] ProviderMik MD [address] [place] [address] Social History Tobacco Use Types Packs/Day Years Used Date Smoking Tobacco: Never Assessed Comments Unknown Sex and Gender Information Value Date Recorded Sex Assigned at Not on file Legal Sex Female 6:09 PM CDT Gender Identity Not on file Sexual Orientation Not on file documented as of this encounter Miscellaneous Notes * Cerner Conversion Note - Historical ProviderMD - 11/22/2018 2:04 PM CDT [place] [address] [place] [address] PERSON INFORMATION Name PRATIK SHABAZZ Age 48 Years 1970 Sex Female Language Montenegrin PCP PHY, NOT LISTED Marital Status Med Service Emergency Medicine Acct# Arrival 11/22/2018 12:43:00 Visit Reason Back pain; SCIATICA OUT AGAIN Acuity 4 - Non - Urgent LOS 000 01:21 Depart Date: 11/22/18 02:03 PM Address: [place] [address] Comment: PROVIDER INFORMATION Provider Role Assigned Unassigned BRAYDEN MEDEIROS PA-[facility] ED Physician 11/22/2018 13:15:23 CATHIE ECHAVARRIA, CLOTH WASHER OPERATOR Nurse 11/22/2018 13:17:57 DIAGNOSIS Elevated blood pressure; Sciatica PHYS DOC NOTES VITALS INFORMATION Vital Sign Triage Latest Temp Source Oral Oral Temp Mode Fahrenheit Fahrenheit Temp Fahrenheit 97.8 Deg F 97.8 Deg F Temp Celsius 02 Sat 97 % 97 % Respiratory Rate 16 Breaths/Min 16 Breaths/Min Peripheral Pulse Rate 105 bpm 105 bpm Apical Heart Rate Blood Pressure 171 mmHg / 81 mmHg 171 mmHg / 81 mmHg Comment: MEDICAL INFORMATION Allergy Info: Vraylar; Cymbalta; Ultram; Haldol; penicillin; doxycycline; codeine Medications: Prescription Display baclofen (baclofen 10 mg oral tablet) 1 Tab, Oral, Tab, TID, # 20 Tab, 0 Refill(s), Pharmacy: [facility] [id number] diclofenac (diclofenac potassium 50 mg oral tablet) 1 Tab, Oral, Tab, TID, PRN as needed for pain, # 20 Tab, 0 Refill(s), Pharmacy: [facility] [id number] methylPREDNISolone (Medrol Dosepak 4 mg oral tablet) 1 Packet, Oral, Tab, Daily, as directed on package labeling, # 21 Tab, 0 Refill(s), Pharmacy: [facility] [id number] Comment: DISCHARGE INFORMATION Discharge Disposition: Home Discharge Location: PATIENT EDUCATION INFORMATION Instructions: Sciatica Follow up: With: Address: When: [facility] [address] [facility], [address] [place] [address] Business (1) Within 2 to 3 days With: Address: When: [facility] As needed Comments: Patient Has a primary care physician with [facility] For assistance in the future with finding a new primary care physician please contact the Patient Resource Center at [phone]. Comment: documented in this encounter Plan of Treatment Upcoming Encounters Date Type Department Care Team (Late st Contact Info) Description 11/03/2025 12:45 PM EST Office Visit [facility] Pulmonology - [address] [place] [address] Ben Barrios MD [address] [place] [address] documented as of this encounter Visit Diagnoses Not on filedocumented in this encounter Care Teams Health Services Manager Relationship Specialty Start Date End Date Amie Pena MD [address] [place] [address] [place] [address] PCP - General Family Medicine 10/31/22 04/08/23 Marvel Grayson MD [address] [place] [address] [place] [address] PCP - General Family Medicine 05/17/23 Marvel Grayson [address] [place] [address] Family Practice 04/09/23 documented as of this encounter
--- OUTSIDE RECORDS SUMMARY | 2025-07-02 14:05 | XMS_ITS | Encounter Summary ---
Author Organization [employer] ([place], [place], [place], [place]) Address [address] [place] [address] Care Team Providers Care Broker In Charge Name Role Phone Amie Pena MD Primary Care Provider [phone] Marvel Grayson MD Primary Care Provider [phone] Encounter Details Date Type Department Care Team (Late st Contact Info) Description 08/06/2020 Transcribed Document [facility] [place] [address] [place] [address] ProviderMik MD [address] [place] [address] Social History Tobacco Use Types Packs/Day Years Used Date Smoking Tobacco: Never Assessed Comments Unknown Sex and Gender Information Value Date Recorded Sex Assigned at Not on file Legal Sex Female 6:09 PM CDT Gender Identity Not on file Sexual Orientation Not on file documented as of this encounter Miscellaneous Notes * Cerner Conversion Note - Mik Thorne MD - 08/06/2020 2:59 PM HEAD MECHANIC ED Discharge Entered On: 08/06/2020 15:00 EST Performed On: 08/06/2020 14:59 EST by RADHA BROOKS, party demonstrator Process Patient Disposition : Discharge Personal Belongings With Patient : Yes Patient Education Completed : Yes Teaching Evaluation : Verbalizes understanding IV Discontinued : Not applicable Nursing Documentation Completed : Yes RADHA BROOKS RN - 08/06/2020 14:59 EST ED Discharge Vital Signs Peripheral Pulse Rate : 91 bpm Respiratory Rate : 16 Breaths/Min Systolic Blood Pressure : 144 mmHg (HI) Diastolic Blood Pressure : 76 mmHg Oxygen Saturation : 92 % (LOW) RADHA BROOKS RN - 08/06/2020 14:59 EST ED Discharge Discharge To : Home without planned follow-up Mode Of Departure : Ambulatory Accompanied By : Unaccompanied Discharge Instructions Reviewed With, Opportunity For Questions Given : Patient Prescriptions Given to Patient : Yes Number of Prescriptions Given : 1 RADHA BROOKS RN - 08/06/2020 14:59 EST Electronically signed by [facility], [facility] Conversion Digital Music Instructor Cerner at 12/16/2022 10:44 AM CDT documented in this encounter Plan of Treatment Upcoming Encounters Date Type Department Care Team (Late st Contact Info) Description 11/03/2025 12:45 PM EST Office Visit [facility] Pulmonology - [address] [place] [address] Ben Barrios MD [address] [place] [address] documented as of this encounter Visit Diagnoses Not on filedocumented in this encounter Care Teams Broker In Charge Relationship Specialty Start Date End Date Amie Pena MD [address] [place], [place] [address] [address] PCP - General Family Medicine 10/31/22 04/08/23 Marvel Grayson MD [address] [place] [address] PCP - General Family Medicine 05/17/23 Marvel Grayson [address] [place] [address] Family Practice 04/09/23 documented as of this encounter
--- OUTSIDE RECORDS SUMMARY | 2025-07-02 14:05 | XMS_ITS | Encounter Summary ---
Author Organization [employer] ([place], [place], [place], [place]) Address [address] [place] [address] Care Team Providers Care Shipping Agent Name Role Phone Amie Pena MD Primary Care Provider [phone] Marvel Grayson MD Primary Care Provider [phone] Encounter Details Date Type Department Care Team (Late st Contact Info) Description 08/06/2020 Transcribed Document [facility] [place] Family Medicine [address] [place] [address] ProviderMik MD [address] [place] [address] Social History Tobacco Use Types Packs/Day Years Used Date Smoking Tobacco: Never Assessed Comments Unknown Sex and Gender Information Value Date Recorded Sex Assigned at Not on file Legal Sex Female 6:09 PM CDT Gender Identity Not on file Sexual Orientation Not on file documented as of this encounter Miscellaneous Notes * Cerner Conversion Note - Historical ProviderMD - 08/06/2020 2:48 PM PETROLEUM REFINERY WORKER Electronically signed by Karthikeyan Bean Conversion Adjunct Psychology Instructor Cerner at 12/16/2022 10:48 AM CDT documented in this encounter Plan of Treatment Upcoming Encounters Date Type Department Care Team (Late st Contact Info) Description 11/03/2025 12:45 PM EST Office Visit [facility] Pulmonology - [address] [place] [address] Ben Barrios MD [address] [place] [address] documented as of this encounter Visit Diagnoses Not on filedocumented in this encounter Care Teams Shipping Agent Relationship Specialty Start Date End Date Amie Pena MD [address] [place] [address] PCP - General Family Medicine 10/31/22 04/08/23 Marvel Grayson MD [address] [place] [address] PCP - General Family Medicine 05/17/23 Marvel Grayson [address] [place] [address] Family Practice 04/09/23 documented as of this encounter
--- OUTSIDE RECORDS SUMMARY | 2025-07-02 14:05 | XMS_ITS | Encounter Summary ---
Author Organization [employer] ([place], [place], [place], [place]) Address [address] [place] [address] Care Team Providers Care Financial Examiner Name Role Phone Amie Pena MD Primary Care Provider [phone] Marvel Grayson MD Primary Care Provider [phone] Encounter Details Date Type Department Care Team (Late st Contact Info) Description 09/25/2018 Transcribed Document [facility] [place] [address] [place] [address] ProviderMik MD [address] [place] [address] Social History Tobacco Use Types Packs/Day Years Used Date Smoking Tobacco: Never Assessed Comments Unknown Sex and Gender Information Value Date Recorded Sex Assigned at Not on file Legal Sex Female 6:09 PM CDT Gender Identity Not on file Sexual Orientation Not on file documented as of this encounter Miscellaneous Notes * Cerner Conversion Note - Historical ProviderMD - 09/25/2018 5:36 PM DOOR LINER [address] [address] Patient Information Name: PRATIK SHABAZZ Age: 47 Years Date of : 1970 Arrival Time: 09/25/2018 16:52:00 Diagnosis Acute bacterial tonsillitis Primary Care Physician: COLLEEN SHEPARD [facility] Provider Information Primary Provider: PAMELA IRELAND Secondary Provider: PRATIK SHABAZZ has been given the following list of patient education materials, prescriptions and follow-up instructions: Follow-up Instructions: With: Address: When: COLLEEN SHEPARD [address] [facility], [address] [place], [place] [id number] Business (1) Within 2 to 3 days Patient Education Materials: Tonsillitis Tonsillitis is an infection of the throat that causes the tonsils to become red, tender, and swollen. Tonsils are collections of lymphoid tissue at the back of the throat. Each tonsil has crevices (crypts). Tonsils help fight nose and throat infections and keep infection from spreading to other parts of the body for the first 18 months of life. What are the causes? Sudden (acute) tonsillitis is usually caused by infection with streptococcal bacteria. Long-lasting (chronic) tonsillitis occurs when the crypts of the tonsils become filled with pieces of food and bacteria, which makes it easy for the tonsils to become repeatedly infected. What are the signs or symptoms? Symptoms of tonsillitis include: ??? A sore throat, with possible difficulty swallowing. ??? White patches on the tonsils. ??? Fever. ??? Tiredness. ??? New episodes of snoring during sleep, when you did not snore before. ??? Small, foul-smelling, yellowish-white pieces of material (tonsilloliths) that you occasionally cough up or spit out. The tonsilloliths can also cause you to have bad breath. How is this diagnosed? Tonsillitis can be diagnosed through a physical exam. Diagnosis can be confirmed with the results of lab tests, including a throat culture. How is this treated? The goals of tonsillitis treatment include the reduction of the severity and duration of symptoms and prevention of associated conditions. Symptoms of tonsillitis can be improved with the use of steroids to reduce the swelling. Tonsillitis caused by bacteria can be treated with antibiotic medicines. Usually, treatment with antibiotic medicines is started before the cause of the tonsillitis is known. However, if it is determined that the cause is not bacterial, antibiotic medicines will not treat the tonsillitis. If attacks of tonsillitis are severe and frequent, your health care provider may recommend surgery to remove the tonsils (tonsillectomy). Follow these instructions at home: ??? Rest as much as possible and get plenty of sleep. ??? Drink plenty of fluids. While the throat is very sore, eat soft foods or liquids, such as sherbet, soups, or instant breakfast drinks. ??? Eat frozen ice pops. ??? Gargle with a warm or cold liquid to help soothe the throat. Mix 1/4 teaspoon of salt and 1/4 teaspoon of baking soda in 8 oz of water. Contact a health care provider if: ??? Large, tender lumps develop in your neck. ??? A rash develops. ??? A green, yellow-brown, or bloody substance is coughed up. ??? You are unable to swallow liquids or food for 24 hours. ??? You notice that only one of the tonsils is swollen. Get help right away if: ??? You develop any new symptoms such as vomiting, severe headache, stiff neck, chest pain, or trouble breathing or swallowing. ??? You have severe throat pain along with drooling or voice changes. ??? You have severe pain, unrelieved with recommended medications. ??? You are unable to fully open the mouth. ??? You develop redness, swelling, or severe pain anywhere in the neck. ??? You have a fever. This information is not intended to replace advice given to you by your health care provider. Make sure you discuss any questions you have with your health care provider. Document Released: 05/30/2006 Document Revised: 01/25/2017 Document Reviewed: 02/06/2014 [employer] Patient Education ? 2017 [employer] Allergies: Vraylar; Cymbalta; Ultram; Haldol; penicillin; doxycycline; codeine Medication Information: Prescription Display azithromycin (azithromycin 500 mg oral tablet) 1 Tab, Oral, Tab, Daily, # 5 Tab, 0 Refill(s), [facility] [id number] Laboratory or Other Results This Visit (last charted value for your 09/25/2018 visit) Microbiology 09/25/18 17:06:05 Rapid Strep Test: See Result Medication Comment: Procedures: Laboratory Orders Name Status .STREP A CONF Ordered RAPID STREP Completed Radiology Orders No radiology orders were placed. Cardiology Orders No cardiology orders were placed. This statement is to verify that PRATIK SHABAZZ was seen at [facility] on ,09/25/2018 17:36:53. This is not a work excuse, if a work excuse was needed it will be in addition to this statement as a separate form. IMPORTANT: The examination and treatment you have received [...] that requires the expertise of a specialist. KEEP IN MIND THAT THE SPECIALIST HAS HIS/HER OWN OFFICE POLICIES WHICH MAY REQUIRE PROPER INSURANCE OR PAYMENT UP FRONT BEFORE THE SPECIALIST WILL SEE YOU. It is your responsibility to call the specialist physician to make an appointment. We do not have the ability to identify specialists/physicians that work with specific insurance companies. [...] necessary to obtain coverage for claims submitted. If you had special tests, such as EKG???s or X-rays, the interpretation of your tests given to you by the Emergency Dept. Physician is a preliminary report. Some fractures and illnesses fail to show up on preliminary tests. We will review them again within 24-48 hours. We will call you if there are any new suggestions. If your symptoms continue notify your physician. After you leave, you should follow the instructions below. In all events, you may obtain a copy of your Emergency Department visit from Medical Records. Please call to be directed to this department. We will bill your insurance; however, you are responsible today for any co-pay amounts. You will receive a separate bill for any services you may have received including: emergency, radiology, or pathology physicians. Please be sure we have an accurate contact phone number and address, should we need to call you for any reason. CIGARETTE SMOKING: The facts are clear; cigarette smoking will shorten your life. Smoking can cause many illnesses along the way. As a healthcare provider, CHARAN recommends that you stop smoking. Assistance with quitting is available by contacting 2-131-WJDF-NOW. This is a free resource providing counseling, support, and referral. Or you may contact your personal physician. As part of your treatment plan, [...] cramping, rapid heartbeat, difficulty sleeping, and nervousness. The home medications listed are only as accurate as the information you provided. Please continue taking all of your medications prescribed by your Primary Care Provider unless specifically told to change or discontinue the medication. Please direct any questions regarding your home medications to your Primary Care Provider. YOU ARE THE MOST IMPORTANT FACTOR IN YOUR RECOVERY. ?? Follow your instructions carefully ?? Take your medicines as prescribed ?? Most important, see a provider as discussed. If you do not have a provider, we can provide a list of clinics Confidential This message and accompanying documents are covered by Electronic Communications Privacy Act 18 U.S.C. ???Sections 6965-8409,?? and contain information intended for the specified individual(s) only. This information is confidential. If you are not the intended recipient or an agent responsible for delivering it to the intended recipient, you are hereby notified that you have received the document in error and that any review, dissemination, copying, or the taking of any action based on the contents of this information is strictly prohibited. If you have received this communication in error, please notify us immediately by email, and delete the original message. STROKE is an EMERGENCY [employer] F.A.S.T! FACE ?? Facial droop ?? Uneven smile ARM ?? Arm numbness ?? Arm weakness SPEECH ?? Slurred speech ?? Difficulty speaking or understanding TIME ?? Call 911 and get to the hospital immediately Have the ambulance go to the nearest stroke center. STROKE Risk Factors High blood pressure High cholesterol Heart Disease Diabetes Smoking Heavy alcohol use Physical inactivity and obesity Atrial Fibrillation (irregular heartbeat) Family history of stroke Reminder: Be sure to sign up for the [facility] patient portal, which gives you 26/03 access to your medical information ??? including these discharge instructions ??? using your computer, smartphone, or tablet. Just go to [employer] to get started. Questions? Call . Acknowledgment I hereby acknowledge receipt of these instructions and information above. I understand that I have received Emergency Treatment only which is not a substitute for complete medical care and acknowledge that all of my medical problems may not be known, identified, or treated prior to my release. I UNDERSTAND THE NEED TO ARRANGE FOLLOW-UP CARE WITH THE PHYSICIAN INDICATED. I UNDERSTAND THAT I SHOULD CONTACT MY PHYSICIAN IMMEDIATELY OR RETURN TO THE EMERGENCY DEPARTMENT IF MY CONDITION WORSENS, FAILS TO IMPROVE, OR NEW SYMPTOMS APPEAR. Vital Signs B/P PULSE RESP. RATE TEMPERATURE PULSE OX Signature of Emergency Provider Date / Time Signature of Emergency Nurse Date / Time Acknowledgment I hereby acknowledge receipt of these instructions and information above. I understand that I have received Emergency Treatment only which is not a substitute for complete medical care and acknowledge that all of my medical problems may not be known, identified, or treated prior to my release. I UNDERSTAND THE NEED TO ARRANGE FOLLOW-UP CARE WITH THE PHYSICIAN INDICATED. I UNDERSTAND THAT I SHOULD CONTACT MY PHYSICIAN IMMEDIATELY OR RETURN TO THE EMERGENCY DEPARTMENT IF MY CONDITION WORSENS, FAILS TO IMPROVE, OR NEW SYMPTOMS APPEAR. Signature of Patient / Responsible Person Date / Time Please provide a telephone number where you can be reached. The best time to call is between: It is permissible to leave a message if no answer: Yes____ No____ Nurse Providing Instructions: Emergency Physician: documented in this encounter Plan of Treatment Upcoming Encounters Date Type Department Care Team (Late st Contact Info) Description 11/03/2025 12:45 PM EST Office Visit [facility] Pulmonology - [address] [place] [phone] Ben Barrios MD [address] [place] [address] documented as of this encounter Visit Diagnoses Not on filedocumented in this encounter Care Teams Financial Examiner Relationship Specialty Start Date End Date Amie Pena MD [address] [place] [address] [place] [address] PCP - General Family Medicine 10/31/22 04/08/23 Marvel Grayson MD [address] [place] [address] [place] [address] PCP - General Family Medicine 05/17/23 Marvel Grayson [address] [place] [address] Family Practice 04/09/23 documented as of this encounter
--- OUTSIDE RECORDS SUMMARY | 2025-07-02 14:05 | XMS_ITS | Encounter Summary ---
Author Organization [employer] ([place], [place], [place], [place]) Address [address] [place] [address] Care Team Providers Care Bell Staff Name Role Phone Amie Pena MD Primary Care Provider [phone] Marvel Grayson MD Primary Care Provider [phone] Encounter Details Date Type Department Care Team (Late st Contact Info) Description 11/28/2018 Transcribed Document [facility] [place] [address] [place] [address] ProviderMik MD [address] [place] [address] Social History Tobacco Use Types Packs/Day Years Used Date Smoking Tobacco: Never Assessed Comments Unknown Sex and Gender Information Value Date Recorded Sex Assigned at Not on file Legal Sex Female 6:09 PM CDT Gender Identity Not on file Sexual Orientation Not on file documented as of this encounter Miscellaneous Notes * Cerner Conversion Note - Historical ProviderMD - 11/28/2018 1:04 PM CDT ED Triage Entered On: 11/28/2018 13:22 EDT Performed On: 11/28/2018 13:19 EDT by CATHIE ECHAVARRIA PANTOGRAPHER Triage Across the Room Triage Date/Time : 11/28/2018 13:19 EDT Chief Complaint : PT states, I have a migraine , started getting floaters in eyes last week w/o pain but pain started last night, resp even and unlabored CATHIE ECHAVARRIA RN - 11/28/2018 13:19 EDT DCP GENERIC CODE Tracking Acuity : 3 - Urgent Tracking Group : [facility] CATHIE ECHAVARRIA RN - 11/28/2018 13:19 EDT Mode of Arrival : Ambulatory Transported to ED by : Private vehicle To Room Via : Ambulate Accompanied By : Friend ED Vital Signs : Document Height & Weight : Document ED Allergies : Document ED Reason for Visit : Document Tetanus Immunization : Greater than 10 years CATHIE ECHAVARRIA RN - 11/28/2018 13:19 EDT Infectious Disease History Infectious Disease History : Chicken pox/Shingles, Measles, Mumps, Other: staph LLF 02/2014 Fever/Chills Last 48 Hours : No Travel To Regions with Travel Advisories : No Travel Outside [place] Within Last 30 Days : No Contact With Traveler to Advisory Region : No Tuberculosis Symptoms : None CATHIE ECHAVARRIA RN - 11/28/2018 13:19 EDT Vital Signs ED Temperature Source : Oral Temperature Mode : Fahrenheit Temperature, Fahrenheit : 97.8 Deg F Clinical Temperature, C : 36.6 Deg C Peripheral Pulse Rate : 92 bpm Respiratory Rate : 18 Breaths/Min Systolic Blood Pressure : 156 mmHg (HI) Diastolic Blood Pressure : 84 mmHg Oxygen Saturation : 97 % CATHIE ECHAVARRIA RN - 11/28/2018 13:19 EDT Allergy (As Of: 11/28/2018 13:22:54 EDT) Allergies (Active) codeine Estimated Onset Date: Unspecified ; Reactions: Respiratory depression ; Comments: Comment 1: Patient has had hydromorphone and tolerated without problem ; Created By: ALBERTO PHELPS, PharmJasmine; Reaction Status: Active ; Category: Drug ; Substance: codeine ; Type: Side Effect ; Updated By: ALBERTO PHELPS, PharmD; Reviewed Date: 11/28/2018 13:22 EDT Cymbalta Estimated Onset Date: Unspecified ; Reactions: suicidal ; Created By: Ariella Hammer Rn; Reaction Status: Active ; Category: Drug ; Substance: Cymbalta ; Type: Allergy ; Updated By: Ariella Hammer Rn; Reviewed Date: 11/28/2018 13:22 EDT doxycycline Estimated Onset Date: Unspecified ; Created By: RACHELLE LEA Rn; Reaction Status: Active ; Category: Drug ; Substance: doxycycline ; Type: Allergy ; Updated By: RACHELLE LEA Rn; Reviewed Date: 11/28/2018 13:22 EDT Haldol Estimated Onset Date: Unspecified ; Reactions: Hives ; Created By: ALBERTO PHELPS, PharmJasmine; Reaction Status: Active ; Category: Drug ; Substance: Haldol ; Type: Allergy ; Updated By: ALBERTO PHELPS, PharmD; Reviewed Date: 11/28/2018 13:22 EDT penicillin Estimated Onset Date: Unspecified ; Created By: CARLOS RAMOS; Reaction Status: Active ; Category: Drug ; Substance: penicillin ; Type: Allergy ; Updated By: CARLOS RAMOS; Reviewed Date: 11/28/2018 13:22 EDT Ultram Estimated Onset Date: Unspecified ; Created By: CARLOS RAMOS; Reaction Status: Active ; Category: Drug ; Substance: Ultram ; Type: Allergy ; Updated By: CARLOS RAMOS; Reviewed Date: 11/28/2018 13:22 EDT Vraylar Estimated Onset Date: Unspecified ; Created By: Ariella Hammer Rn; Reaction Status: Active ; Category: Drug ; Substance: Vraylar ; Type: Allergy ; Updated By: Ariella Hammer Rn; Reviewed Date: 11/28/2018 13:22 EDT Diagnosis Control ED (As Of: 11/28/2018 13:22:54 EDT) Problems(Active) Arthritis (SNOMED CT :4688222 ) Name of Problem: Arthritis ; Recorder: LASHANDA WEBER RN; Confirmation: Confirmed ; Classification: Patient Stated ; Code: [id number] ; Contributor System: [employer] ; Last Updated: 02/13/2014 15:57 EDT ; Life Cycle Date: 02/13/2014 ; Life Cycle Status: Active ; Vocabulary: SNOMED CT Asthma (SNOMED CT :[id number] ) Name of Problem: Asthma ; Recorder: PANCHO SAEED RN; Confirmation: Confirmed ; Classification: Medical ; Code: [id number] ; Contributor System: Power[employer] ; Last Updated: 02/12/2014 19:24 EDT ; Life Cycle Date: 11/28/2013 ; Life Cycle Status: Active ; Vocabulary: SNOMED CT Back pain (SNOMED CT :837325451 ) Name of Problem: Back pain ; Recorder: DENNISE ALVAREZ RN; Confirmation: Confirmed ; Classification: Medical ; Code: [id number] ; Contributor System: PowerChart ; Last Updated: 07/13/2014 14:28 EST ; Life Cycle Date: 07/13/2014 ; Life Cycle Status: Active ; Vocabulary: SNOMED CT Fibromyalgia (SNOMED CT :[id number] ) Name of Problem: Fibromyalgia ; Recorder: PANCHO SAEED RN; Confirmation: Confirmed ; Classification: Medical ; Code: [id number] ; Contributor System: PowerChart ; Last Updated: 02/12/2014 19:24 EDT ; Life Cycle Date: 11/28/2013 ; Life Cycle Status: Active ; Vocabulary: SNOMED CT H/O: hysterectomy (SNOMED CT :590804623 ) Name of Problem: H/O: hysterectomy ; Recorder: HOWARD HU RN; Confirmation: Confirmed ; Classification: Medical ; Code: [id number] ; Contributor System: PowerChart ; Last Updated: [...] Active PTSD (post-traumatic stress disorder) (SNOMED CT :08527681 ) Name of Problem: PTSD (post-traumatic stress disorder) ; Recorder: MARIAN YAO RN; Confirmation: Confirmed ; Classification: Medical ; Code: [id number] ; Contributor System: PowerChart ; Last Updated: 03/29/2015 21:19 EDT ; Life Cycle Date: 03/29/2015 ; Life Cycle Status: Active ; Vocabulary: SNOMED CT Sciatica (SNOMED CT :00749386 ) Name of Problem: Sciatica ; Recorder: TRISH MCMAHON RN; Confirmation: Confirmed ; Classification: Medical ; Code: [id number] ; Contributor System: [employer] ; Last Updated: 05/24/2015 17:38 EDT ; Life Cycle Date: 05/24/2015 ; Life Cycle Status: Active ; Vocabulary: SNOMED CT Diagnoses(Active) GRIJALVA - Headache Date: 11/28/2018 ; Diagnosis Type: Reason For Visit ; Confirmation: Complaint of ; Clinical Dx: GRIJALVA - Headache ; Classification: Medical ; Clinical Service: Emergency medicine ; Code: PNED ; Probability: 0 ; Diagnosis Code: [id number] ED Height and Weight Height Source : Stated Height Entry Format : [place] Height, Feet : 5 ft(Converted to: 152 cm, 60 Inch) Height, Inches : 10 Inch(Converted to: 0 ft 10 Inch, 25.40 cm) Clinical Height : 177.8 cm Weight Source, ED : Standing scale Weight Entry Format : [place] Weight, Pounds : 203 lb Clinical Dosing Weight : 92.27 kg Body Surface Area (BSA) : 2.1 m2 Body Mass Index : 29.2 kg/m2 (HI) [place] Body Weight (IBW) : 68.02 kg CATHIE ECHAVARRIA RN - 11/28/2018 13:19 EDT ED Influenza/Pneumoccocal Vaccine Influenza Immunization, Current Season : No Previous Vaccines from Immunization Schedule : No qualifying data available. CATHIE ECHAVARRIA RN - 11/28/2018 13:19 EDT documented in this encounter Plan of Treatment Upcoming Encounters Date Type Department Care Team (Late st Contact Info) Description 11/03/2025 12:45 PM EST Office Visit [facility] Pulmonology - [address] [place] [address] Ben Barrios MD [address] [place] [address] documented as of this encounter Visit Diagnoses Not on filedocumented in this encounter Care Teams Bell Staff Relationship Specialty Start Date End Date Amie Pena MD [address] [place] [address] [place] [address] PCP - General Family Medicine 10/31/22 04/08/23 Marvel Grayson MD [address] [place] [address] [place] [address] PCP - General Family Medicine 05/17/23 Marvel Grayson [address] [place], [place] [id number] Family Practice 04/09/23 documented as of this encounter
--- OUTSIDE RECORDS SUMMARY | 2025-07-02 14:05 | XMS_ITS | Encounter Summary ---
Author Organization [employer] ([place], [place], [place], [place]) Address [address] [place] [address] Care Team Providers Care Spa Director Name Role Phone Amie Pena MD Primary Care Provider [phone] Marvel Grayson MD Primary Care Provider [phone] Encounter Details Date Type Department Care Team (Late st Contact Info) Description 11/22/2018 Transcribed Document [facility] [place] [address] [place] [address] ProviderMik MD [address] [place] [address] Social History Tobacco Use Types Packs/Day Years Used Date Smoking Tobacco: Never Assessed Comments Unknown Sex and Gender Information Value Date Recorded Sex Assigned at Not on file Legal Sex Female 6:09 PM CDT Gender Identity Not on file Sexual Orientation Not on file documented as of this encounter Miscellaneous Notes * Cerner Conversion Note - Mik ProviderMD - 11/22/2018 2:02 PM CDT ED Discharge Entered On: 11/22/2018 14:03 EDT Performed On: 11/22/2018 14:02 EDT by CATHIE ECHAVARRIA fishing lure assembler Process Patient Disposition : Discharge Personal Belongings With Patient : Yes Patient Education Completed : Yes Teaching Evaluation : Verbalizes understanding Link to Valuables and Belongings form : No IV Discontinued : Not applicable Nursing Documentation Completed : No CATHIE ECHAVARRIA RN - 11/22/2018 14:02 EDT ED Discharge Discharge To : Home with ambulatory/outpatient follow-up Mode Of Departure : Ambulatory, Private vehicle Accompanied By : Son Discharge Instructions Reviewed With, Opportunity For Questions Given : Patient Prescriptions Given to Patient : Electronically sent Number of Prescriptions Given : 2 Work/school Release Given : Yes CATHIE ECHAVARRIA RN - 11/22/2018 14:02 EDT Electronically signed by [facility] Conversion Pipe Maker Cerner at 12/16/2022 10:43 AM CDT documented in this encounter Plan of Treatment Upcoming Encounters Date Type Department Care Team (Late st Contact Info) Description 11/03/2025 12:45 PM EST Office Visit [facility] Pulmonology - [address] [place] [address] Ben Barrios MD [address] [place] [address] documented as of this encounter Visit Diagnoses Not on filedocumented in this encounter Care Teams Spa Director Relationship Specialty Start Date End Date Amie Pena MD [address] [place] [address] [place], [place] [id number] PCP - General Family Medicine 10/31/22 04/08/23 Marvel Grayson MD [address] [place] [address] PCP - General Family Medicine 05/17/23 Marvel Grayson [address] [place] [address] Family Practice 04/09/23 documented as of this encounter
--- OUTSIDE RECORDS SUMMARY | 2025-07-02 14:05 | XMS_ITS | Encounter Summary ---
Author Organization [employer] ([place], [place], [place], [place]) Address [address] [place] [address] [address] Care Ct Scan Special Procedures Technologist Name Role Phone Amie Pena MD Primary Care Provider [phone] Marvel Grayson MD Primary Care Provider [phone] Encounter Details Date Type Department Care Team (Late st Contact Info) Description 11/28/2018 Transcribed Document [facility] [place] Family Medicine Formerly [facility] [place] [address] ProviderMik MD [address] [place] [address] Social History Tobacco Use Types Packs/Day Years Used Date Smoking Tobacco: Never Assessed Comments Unknown Sex and Gender Information Value Date Recorded Sex Assigned at Not on file Legal Sex Female 6:09 PM CDT Gender Identity Not on file Sexual Orientation Not on file documented as of this encounter Miscellaneous Notes * Cerner Conversion Note - Historical ProviderMD - 11/28/2018 3:01 PM CDT [place] [address] [place] [address] PERSON INFORMATION Name PRATIK SHABAZZ Age 48 Years 1970 Sex Female Language Kenyan PCP PHY, UNKNOWN Marital Status Med Service Emergency Medicine Acct# Arrival 11/28/2018 13:04:00 Visit Reason GRIJALVA - Headache; HEADACHE Acuity 3 - Urgent LOS 000 01:57 Depart Date: 11/28/18 03:01 PM Address: [place] [address] Comment: PROVIDER INFORMATION Provider Role Assigned Unassigned EARL STACK NURSE PRACT-EMERGENCY MEDICINE ED Physician 11/28/2018 13:29:51 Melonie Castaneda, SALES INTERN Nurse 11/28/2018 13:43:13 DIAGNOSIS Generalized headache PHYS DOC NOTES VITALS INFORMATION Vital Sign Triage Latest Temp Source Oral Oral Temp Mode Fahrenheit Fahrenheit Temp Fahrenheit 97.8 Deg F 97.8 Deg F Temp Celsius 02 Sat 97 % 97 % Respiratory Rate 18 Breaths/Min 18 Breaths/Min Peripheral Pulse Rate 92 bpm 92 bpm Apical Heart Rate Blood Pressure 156 mmHg / 84 mmHg 156 mmHg / 84 mmHg Comment: MEDICAL INFORMATION Allergy Info: Vraylar; Cymbalta; Ultram; Haldol; penicillin; doxycycline; codeine Medications: Prescription Display cyclobenzaprine (cyclobenzaprine 10 mg oral tablet) 1 Tab, Oral, Tab, TID, PRN as needed for spasm, # 30 Tab, 0 Refill(s), Pharmacy: [facility] [id number] Comment: DISCHARGE INFORMATION Discharge Disposition: Home Discharge Location: PATIENT EDUCATION INFORMATION Instructions: General Headache Without Cause Follow up: With: Address: When: LUBNA DANIELS [address] [place] [address], [address] [place] [address] [facility] (9) Within 2 to 3 days Comments: Please continue to monitor symptoms. If migraines continue follow up with dr. daniels. Return to ER as needed. Comment: documented in this encounter Plan of Treatment Upcoming Encounters Date Type Department Care Team (Late st Contact Info) Description 11/03/2025 12:45 PM EST Office Visit [facility] Pulmonology - [address] [place] [address] Ben Barrios MD [address] [place], [place] [id number] documented as of this encounter Visit Diagnoses Not on filedocumented in this encounter Care Teams Ct Scan Special Procedures Technologist Relationship Specialty Start Date End Date Amie Pena MD [address] [place] [address] [place] [address] PCP - General Family Medicine 10/31/22 04/08/23 Marvel Grayson MD [address] [place] [address] [place] [address] PCP - General Family Medicine 05/17/23 Marvel Grayson [address] [place], [place] [id number] Family Practice 04/09/23 documented as of this encounter
--- OUTSIDE RECORDS SUMMARY | 2025-07-02 14:05 | XMS_ITS | Encounter Summary ---
Author Organization [employer] ([place], [place], [place], [place]) Address [address] [place] [address] Care Team Providers Care Marine Designer Name Role Phone Amie Pena MD Primary Care Provider [phone] Marvel Grayson MD Primary Care Provider [phone] Encounter Details Date Type Department Care Team (Late st Contact Info) Description 11/22/2018 Transcribed Document [facility] [place] Family Medicine [address] [place] [address] ProviderMik MD [address] [place] [address] Social History Tobacco Use Types Packs/Day [...] Historical ProviderMD - 11/22/2018 2:04 PM CDT [address] [place] [address] Patient Information Name: PRATIK SHABAZZ Age: 48 Years Date of : 1970 Arrival Time: 11/22/2018 12:43:00 Diagnosis Elevated blood pressure; Sciatica Primary Care Physician: ELENO, NOT LISTED Provider Information Primary Provider: BRAYDEN MEDEIROS Secondary Provider: PRATIK SHABAZZ has been given the following list of patient education materials, prescriptions and follow-up instructions: Follow-up Instructions: With: Address: When: VU HAYS [address] [facility], [address] [place] [address] Business (1) Within 2 to 3 days With: Address: When: Patient Resource Center Within As needed Comments: Patient Has a primary care physician with [facility] For assistance in the future with finding a new primary care physician please contact the Patient Resource Center at [phone]. Patient Education Materials: Sciatica Sciatica is pain, numbness, weakness, or tingling along the path of the sciatic nerve. The sciatic nerve starts in the lower back and runs down the back of each leg. The nerve controls the muscles in the lower leg and in the back of the knee. It also provides feeling (sensation) to the back of the thigh, the lower leg, and the sole of the foot. Sciatica is a symptom of another medical condition that pinches or puts pressure on the sciatic nerve. Generally, sciatica only affects one side of the body. Sciatica usually goes away on its own or with treatment. In some cases, sciatica may keep coming back (recur). What are the causes? This condition is caused by pressure on the sciatic nerve, or pinching of the sciatic nerve. This may be the result of: ??? A disk in between the bones of the spine (vertebrae) bulging out too far (herniated disk). ??? Age-related changes in the spinal disks (degenerative disk disease). ??? A pain disorder that affects a muscle in the buttock (piriformis syndrome). ??? Extra bone growth (bone spur) near the sciatic nerve. ??? An injury or break (fracture) of the pelvis. ??? . ??? Tumor (rare). What increases the risk? The following factors may make you more likely to develop this condition: ??? Playing sports that place pressure or stress on the spine, such as football or weight lifting. ??? Having poor strength and flexibility. ??? A history of back injury. ??? A history of back surgery. ??? Sitting for long periods of time. ??? Doing activities that involve repetitive bending or lifting. ??? Obesity. What are the signs or symptoms? Symptoms can vary from mild to very severe, and they may include: ??? Any of these problems in the lower back, leg, hip, or buttock: ? Mild tingling or dull aches. ? Burning sensations. ? Sharp pains. ??? Numbness in the back of the calf or the sole of the foot. ??? Leg weakness. ??? Severe back pain that makes movement difficult. These symptoms may get worse when you cough, sneeze, or laugh, or when you sit or stand for long periods of time. Being overweight may also make symptoms worse. In some cases, symptoms may recur over time. How is this diagnosed? This condition may be diagnosed based on: ??? Your symptoms. ??? A physical exam. Your health care provider may ask you to do certain movements to check whether those movements trigger your symptoms. ??? You may have tests, including: ? Blood tests. ? X-rays. ? MRI. ? CT scan. How is this treated? In many cases, this condition improves on its own, without any treatment. However, treatment may include: ??? Reducing or modifying physical activity during periods of pain. ??? Exercising and stretching to strengthen your abdomen and improve the flexibility of your spine. ??? Icing and applying heat to the affected area. ??? Medicines that help: ? To relieve pain and swelling. ? To relax your muscles. ??? Injections of medicines that help to relieve pain, irritation, and inflammation around the sciatic nerve (steroids). ??? Surgery. Follow these instructions at home: Medicines ??? Take lyga-prp-aryxegt and prescription medicines only as told by your health care provider. ??? Do notdrive or operate heavy machinery while taking prescription pain medicine. Managing pain ??? If directed, apply ice to the affected area. ? Put ice in a plastic bag. ? Place a towel between your skin and the bag. ? Leave the ice on for 20 minutes, 2?3 times a day. ??? After icing, apply heat to the affected area before you exercise or as often as told by your health care provider. Use the heat source that your health care provider recommends, such as a moist heat pack or [...] your normal activities as told by your health care provider. Ask your health care provider what activities are safe for you. ? Avoid activities that make your symptoms worse. ??? Take brief periods of rest throughout the day. Resting in a lying or standing position is usually better than sitting to rest. ? When you rest for longer periods, mix in some mild activity or stretching between periods of rest. This will help to prevent stiffness and pain. ? Avoid sitting for long periods of time without moving. Get up and move around at least one time each hour. ??? Exercise and stretch regularly, as told by your health care provider. ??? Do notlift anything that is heavier than 10 lb (4.5 kg) while you have symptoms of sciatica. When you do not have symptoms, you should still avoid heavy lifting, especially repetitive heavy lifting. ??? When you lift objects, always use proper lifting technique, which includes: ? Bending your knees. ? Keeping the load close to your body. ? Avoiding twisting. General instructions ??? Use good posture. ? Avoid leaning forward while sitting. ? Avoid hunching over while standing. ??? Maintain a healthy weight. Excess weight puts extra stress on your back and makes it difficult to maintain good posture. ??? Wear supportive, comfortable shoes. Avoid wearing high heels. ??? Avoid sleeping on a mattress that is too soft or too hard. A mattress that is firm enough to support your back when you sleep may help to reduce your pain. ??? Keep all follow-up visits as told by your health care provider. This is important. Contact a health care provider if: ??? You have pain that wakes you up when you are sleeping. ??? You have pain that gets worse when you lie down. ??? Your pain is worse than you have experienced in the past. ??? Your pain lasts longer than 4 weeks. ??? You experience unexplained weight loss. Get help right away if: ??? You lose control of your bowel or bladder (incontinence). ??? You have: ? Weakness in your lower back, pelvis, buttocks, or legs that gets worse. ? Redness or swelling of your back. ? A burning sensation when you urinate. This information is not intended to replace advice given to you by your health care provider. Make sure you discuss any questions you have with your health care provider. Document Released: 08/14/2002 Document Revised: 01/23/2017 Document Reviewed: 04/28/2016 [employer] Interactive Patient Education ? 2017 [place]. Allergies: Vraylar; Cymbalta; Ultram; Haldol; penicillin; doxycycline; codeine Medication Information: Prescription Display baclofen (baclofen 10 mg oral tablet) 1 Tab, Oral, Tab, TID, # 20 Tab, 0 Refill(s), Pharmacy: [facility] [id number] diclofenac (diclofenac potassium 50 mg oral tablet) 1 Tab, Oral, Tab, TID, PRN as needed for pain, # 20 Tab, 0 Refill(s), Pharmacy: [facility] [id number] methylPREDNISolone (Medrol Dosepak 4 mg oral tablet) 1 Packet, Oral, Tab, Daily, as directed on package labeling, # 21 Tab, 0 Refill(s), Pharmacy: [facility] [id number] Laboratory or Other Results This Visit (last charted value for your 11/22/2018 visit) No Laboratory or Other Results This Visit Medication Comment: Procedures: Laboratory Orders No laboratory orders were placed. Radiology Orders No radiology orders were placed. Cardiology Orders No cardiology orders were placed. This statement is to verify that PRATIK SHABAZZ was seen at [facility] Emergency Department on ,11/22/2018 14:04:05. This is not a work excuse, if [...] along the way. As a healthcare provider, [facility] recommends that you stop smoking. Assistance with quitting is available by contacting 0-244-RKFH-NOW. This is a free resource providing counseling, [...] Electronic Communications Privacy Act 18 U.S.C. ???Sections 4390-6753,?? and contain information intended for the specified [...] by email, and delete the original message. 4 WAYS TO GET AHEAD OF SEPSIS SEPSIS is a MEDICAL EMERGENCY. Time matters! Infections put you and your family at risk for a life-threatening condition called sepsis. Sepsis is the body???s extreme response to an infection. It is life-threatening, and without timely treatment, sepsis can rapidly lead to tissue damage, organ failure, and . Sepsis happens when an infection you already have???in your skin, lungs, urinary tract or somewhere else???triggers a chain reaction throughout your body. 1 [...] sepsis or if you have an infection that???s not getting better or is getting worse. To learn more about sepsis and how to prevent infections, visit www.cdc.gov/sepsis. STROKE is an EMERGENCY Every Minute Counts [...] Fibrillation (irregular heartbeat) Family history of stroke Acknowledgment I hereby acknowledge receipt of these [...] Signature of Emergency Nurse Date / Time Reminder: Be sure to sign up for the [facility] patient portal, which gives you 26/03 access to your medical information ??? including these discharge instructions ??? using your computer, smartphone, or tablet. Just go to [employer] to get started. Questions? Call . Acknowledgment [...] Description 11/03/2025 12:45 PM EST Office Visit [facility] Pulmonology - [address] [place] [address] Ben Barrios MD [address] [place], [place] [id number] documented as of this encounter Visit Diagnoses Not on filedocumented in this encounter Care Teams Marine Designer Relationship Specialty Start Date End Date Amie Pena MD [address] [place] [address] PCP - General Family Medicine 10/31/22 04/08/23 Marvel Grayson MD [address] [place] [address] PCP - General Family Medicine 05/17/23 Marvel Grayson [address] [place] [address] Family Practice 04/09/23 documented as of this encounter
--- OUTSIDE RECORDS SUMMARY | 2025-07-02 14:05 | XMS_ITS | Encounter Summary ---
Author Organization [employer] ([place], [place], [place], [place]) Address [address] [place] [address] Care Team Providers Care Facilities Assistant Name Role Phone Amie Pena MD Primary Care Provider [phone] Marvel Grayson MD Primary Care Provider [phone] Encounter Details Date Type Department Care Team (Late st Contact Info) Description 11/28/2018 Transcribed Document [facility] Radiology [address] [place] [address] Provider, Karthikeyan Houser MD Social [...] Conversion Note - Karthikeyan Thorne MD - 11/28/2018 2:04 PM EDT ED Assessment Entered On: 11/28/2018 14:06 EDT Performed On: 11/28/2018 14:05 EDT by Melonie Castaneda RN ED Quick Look Assessment Level of Consciousness : Alert, Awake Affect/Behavior : Appropriate, Calm, Cooperative Orientation : Oriented x 4 Skin Temperature : Warm Melonie Castaneda RN - 11/28/2018 14:05 EDT ED General-Functional Assess Information Obtained From : Patient Preferred Communication Mode : Verbal Communication Barrier : None Primary Language : Honduran Any Spiritual/Cultural Needs or Requests : No Currently in Unsafe Situation : No Melonie Castaneda RN - 11/28/2018 14:05 EDT Social Habits Smoking Status : 10 or more cigarettes (1/2 pack or more)/day in last 30 days Smokeless Tobacco Status : Never Desires Tobacco Cessation Medication : No Reason for No Tobacco Cessation Medication : Refuses FDA approved medications Desires Tobacco Cessation Calc : 1 Melonie Castaneda RN - 11/28/2018 14:05 EDT Social History (As Of: 11/28/2018 14:06:10 EDT) Tobacco: Use in Last 12 Months: [...] 07/19/2016 17:26:14 EST by PANCHO SAEED RN) Gastrointestinal ED Gastrointestinal Assessment WDL : WDL with exceptions Gastrointestinal Symptoms : Nausea Melonie Castaneda RN - 11/28/2018 14:05 EDT Neurologic ASMT, ED Neurologic Assessment WDL : WDL with exceptions Neurological Symptoms : Headache Melonie Castaneda RN - 11/28/2018 14:05 EDT Electronically signed by [facility] Conversion Softball Core Molder Cerner at 01/24/2023 10:58 AM CDT documented in this encounter Plan of Treatment Upcoming Encounters Date Type Department Care Team (Late st Contact Info) Description 11/03/2025 12:45 PM EST Office Visit [facility] Pulmonology - [address] [place] [id number] Ben Barrios MD [address] [place] [address] documented as of this encounter Visit Diagnoses Not on filedocumented in this encounter Care Teams Facilities Assistant Relationship Specialty Start Date End Date Amie Pena MD [address] [place] [address] [place] [address] PCP - General Family Medicine 10/31/22 04/08/23 Marvel Grayson MD [address] [place] [address] [place] [address] PCP - General Family Medicine 05/17/23 Marvel Grayson [address] [place] [address] Family Practice 04/09/23 documented as of this encounter
--- OUTSIDE RECORDS SUMMARY | 2025-07-02 14:05 | XMS_ITS | Encounter Summary ---
Author Organization [employer] ([place], [place], [place], [place]) Address [address] [place] [address] Care Team Providers Care Twisting Frame Changer Name Role Phone Amie Pena MD Primary Care Provider [phone] Marvel Grayson MD Primary Care Provider [phone] Encounter Details Date Type Department Care Team (Late st Contact Info) Description 08/06/2020 Transcribed Document [facility] [place] [address] [place] [address] ProviderMik MD [address] [place] [address] Social History Tobacco Use Types Packs/Day Years Used Date Smoking Tobacco: Never Assessed Comments Unknown Sex and Gender Information Value Date Recorded Sex Assigned at Not on file Legal Sex Female 6:09 PM CDT Gender Identity Not on file Sexual Orientation Not on file documented as of this encounter Miscellaneous Notes * Cerner Conversion Note - Historical ProviderMD - 08/06/2020 6:13 PM TOLL RELIEF OPERATOR CR Spine Lumbar 2 or 3 Vws Ordered: 08/06/2020 Auth (Verified) Reason for Exam: trauma 08/06/2020 18:09 CR Shoulder Comp Min 2 Vws RT Ordered: 08/06/2020 Auth (Verified) Reason for Exam: trauma 08/06/2020 18:09 CR Chest 2 Vws Ordered: 08/06/2020 Auth (Verified) Reason for Exam: trauma 08/06/2020 18:09 08/06/2020 18:13 (XOCHITL SHIELDS PA) Reviewed by Provider, No further action required x1 documented in this encounter Plan of Treatment Upcoming Encounters Date Type Department Care Team (Late st Contact Info) Description 11/03/2025 12:45 PM EST Office Visit [facility] Pulmonology - [address] [place] [id number] Ben Barrios MD [address] [place] [address] documented as of this encounter Visit Diagnoses Not on filedocumented in this encounter Care Teams Twisting Frame Changer Relationship Specialty Start Date End Date Amie Pena MD [address] [place] [address] [place] [address] PCP - General Family Medicine 10/31/22 04/08/23 Marvel Grayson MD [address] [place] [address] [place] [address] PCP - General Family Medicine 05/17/23 Marvel Grayson [address] [place] [address] Family Practice 04/09/23 documented as of this encounter
--- OUTSIDE RECORDS SUMMARY | 2025-07-02 14:05 | XMS_ITS | Encounter Summary ---
Author Organization [employer] ([place], [place], [place], [place]) Address [address] [place] [address] Care Team Providers Care Dredge Captain Name Role Phone Amie Pena MD Primary Care Provider [phone] Marvel Grayson MD Primary Care Provider [phone] Encounter Details Date Type Department Care Team (Late st Contact Info) Description 09/25/2018 Transcribed Document [facility] [place] Family Medicine [address] [place] [address] ProviderMik MD [address] [place] [address] Social History Tobacco Use Types Packs/Day Years Used Date Smoking Tobacco: Never Assessed Comments Unknown Sex and Gender Information Value Date Recorded Sex Assigned at Not on file Legal Sex Female 6:09 PM CDT Gender Identity Not on file Sexual Orientation Not on file documented as of this encounter Miscellaneous Notes * Cerner Conversion Note - Historical ProviderMD - 09/25/2018 5:29 PM TEACHER EARLY CHILDHOOD DEVELOPMENT Electronically signed by Karthikeyan Bean Conversion Manager Business Intelligence Cerner at 12/16/2022 10:41 AM CDT documented in this encounter Plan of Treatment Upcoming Encounters Date Type Department Care Team (Late st Contact Info) Description 11/03/2025 12:45 PM EST Office Visit [facility] Pulmonology - [address] [place] [address] Ben Barrios MD [address] [facility] [address] [place] [address] documented as of this encounter Visit Diagnoses Not on filedocumented in this encounter Care Teams Dredge Captain Relationship Specialty Start Date End Date Amie Pena MD [address] [place] [address] PCP - General Family Medicine 10/31/22 04/08/23 Marvel Grayson MD [address] [place] [address] PCP - General Family Medicine 05/17/23 Marvel Grayson [address] [place] [address] Family Practice 04/09/23 documented as of this encounter
--- OUTSIDE RECORDS SUMMARY | 2025-07-02 14:05 | XMS_ITS | Encounter Summary ---
Author Organization [employer] ([place], [place], [place], [place]) Address [address] [place] [address] Care Team Providers Care Base Loader Name Role Phone Amie Pena MD Primary Care Provider Marvel Grayson MD Primary Care Provider [phone] Encounter Details Date Type Department Care Team (Late st Contact Info) Description 11/28/2018 Transcribed Document [facility] [place] [address] [place] [address] ProviderMik MD [address] [place] [address] Social History Tobacco Use Types Packs/Day Years Used Date Smoking Tobacco: Never Assessed Comments Unknown Sex and Gender Information Value Date Recorded Sex Assigned at Not on file Legal Sex Female 6:09 PM CDT Gender Identity Not on file Sexual Orientation Not on file documented as of this encounter Miscellaneous Notes * Cerner Conversion Note - Mik ProviderMD - 11/28/2018 1:43 PM CDT Patient: PRATIK SHABAZZ Age: 48 years Sex: Female : 1970 Associated Diagnoses: Generalized headache Author: EARL STACK, NURSE PRACT-EMERGENCY MEDICINE Basic Information Time seen: Date & time 11/28/2018 13:44:00. History source: Patient. Arrival mode: Private vehicle. History limitation: None. Additional information: Chief Complaint from Nursing Triage Note : Chief Complaint 11/28/2018 13:19 EDT Chief Complaint PT states, I have a migraine , started getting floaters in eyes last week w/o pain but pain started last night, resp even and unlabored . History of Present Illness The patient presents with headache and migraine . The onset was 1 weeks ago. The course/duration of symptoms is constant. Location: Left frontal. Radiating pain: left side of the neck. The character of symptoms is achy and pressure. The degree at onset was moderate. The degree at maximum was moderate. The degree at present is moderate. There are exacerbating factors including light, noise and neck motion. There are relieving factors including light avoidance and noise avoidance. Risk factors consist of none. Prior episodes: occasional. Therapy today: none. Preceding symptoms: visual disturbance. Associated symptoms: nausea. 48 year old female presents to ED complaining of migraine headache. hx of migraines. States started gettingeye floaters last week and could feel headache comingon. started today. complaints of light sensitivity and pain in left side of neck that is worse with movement. mild nausea but not vomiting. denies injury. Review of Systems Constitutional symptoms: No fever, no chills, no weakness. Skin symptoms: No rash, no breakdown, no lesion. Eye symptoms: no recent vision change, no discharge, no blurred vision. ENMT symptoms: No sore throat, no nasal congestion. Respiratory symptoms: No shortness of breath, no cough. Cardiovascular symptoms: No chest pain, no palpitations, no syncope, no diaphoresis, no peripheral edema. Gastrointestinal symptoms: Nausea, no abdominal pain, no vomiting, no diarrhea, no rectal bleeding. Genitourinary symptoms: No dysuria, Musculoskeletal symptoms: Muscle pain, no back pain, no Joint pain. Neurologic symptoms: Headache, no dizziness, no altered level of consciousness, no numbness, no tingling, no weakness. Psychiatric symptoms: No anxiety, Endocrine symptoms: No polyuria, no polydipsia. Hematologic/Lymphatic symptoms: Bleeding tendency negative, bruising tendency negative. Allergy/immunologic symptoms: No seasonal allergies, Health Status Allergies: Allergic Reactions (Selected) Severity Not Documented Cymbalta- Suicidal. Doxycycline- No reactions were documented. Haldol- Hives. Penicillin- No reactions were documented. Ultram- No reactions were documented. Vraylar- No reactions were documented. Nonallergic Reactions (Selected) Severity Not Documented Codeine- Respiratory depression.. Medications: (Selected) Inpatient Medications Ordered Benadryl: 12.5 mg, IV Push, 1-Time Pepcid: 20 mg, IV Push, 1-Time Sodium Chloride 0.9% bolus: 500 mL, 500 mL/Hr, IV Piggyback, 1-Time Toradol: 30 mg, IV Push, 1-Time Documented Medications Documented Breo Ellipta: Inhalation, Daily, 0 Refill(s) Claritin: Daily, 0 Refill(s) PriLOSEC: 20 mg, Oral, Daily, 0 Refill(s) Spiriva: mcg, Inhalation, Daily, 0 Refill(s), per nurse's notes. Immunizations: Per [...] at 40 Years. Removal of ovarian cyst ([id number]). I&D to left finger., Reviewed as documented in chart. Family history: [...] 09/25/2018 Smoking Status 10 or more cigarettes (/ , Reviewed as documented in chart. Problem list: Active Problems (8) Arthritis Asthma Back pain Fibromyalgia H/O: hysterectomy heart burn PTSD (post-traumatic stress disorder) Sciatica . Physical Examination Vital Signs Vital Signs/Vital Measures 11/28/2018 13:19 EDT Temperature Source Oral Temperature Mode Fahrenheit Temperature, Fahrenheit 97.8 Deg F Clinical Temperature, C 36.6 Deg C Peripheral Pulse Rate 92 bpm Respiratory Rate 18 Breaths/Min Systolic Blood Pressure 156 mmHg HI Diastolic Blood Pressure 84 mmHg Oxygen Saturation 97 % . Measurements 11/28/2018 13:19 EDT Height Source Stated Height Entry Format [place] Height/Length, LATVIAN (ft) 5 ft Height/Length LATVIAN 10 Inch CLINICALHEIGHT 177.8 cm Wilson Body Weight 68.02 kg Weight Source, ED Standing scale Weight Entry Format [place] Weight Vincentian lb 203 lb CLINICALWEIGHT 92.27 kg Body Surface Area (BSA) 2.1 m2 Body Mass Index 29.2 kg/m2 HI . Oxygen Saturation 11/28/2018 13:19 EDT Oxygen Saturation 97 % . General: Alert, no acute distress. [...] observed, normal speech observed, normal coordination observed. Lymphatics Psychiatric: Cooperative, appropriate mood & affect, normal judgment. Medical Decision Making Differential Diagnosis: Migraine, tension headache, sinusitis, subarachnoid hemorrhage, hypertension, cerebral vascular accident, transient ischemic attack, intracranial hemorrhage, not temporal arteritis. Documents reviewed: Emergency department nurses' notes. Orders Include Previous Orders (Selected) Inpatient Orders Cancelled (Canceled) MY Digital Screen BILAT: Completed Benadryl: 12.5 mg, IV Push, 1-Time ED Adult Fall Risk Assessment: ED Adult Triage: ED Clinical Reconciliation: ED endoscopy registered nurse: Pepcid: 20 mg, IV Push, 1-Time Saline Lock Insert: Sodium Chloride 0.9% bolus: 500 mL, 500 mL/Hr, IV Piggyback, 1-Time Toradol: 30 mg, IV Push, 1-Time Zofran: 4 mg, IV Push, 1-Time. Reexamination/ Reevaluation Time: 11/28/2018 14:53:00 . Course: improving. Impression and Plan Diagnosis Generalized headache - Discharge, Emergency medicine, Medical Plan Condition: Stable. Disposition: Medically cleared, Discharged Admit/Transfer/Discharge: Discharge (Order): Start: 11/28/2018 14:53 EDT, Discharge to: Home. Prescriptions: Prescription Casing Wringer Operator Pharmacy: cyclobenzaprine 10 mg oral tablet (Prescribe): 1 Tab, Oral, TID, PRN: as needed for spasm, 30 Tab, 0 Refill(s). Patient was given the following educational materials: General Headache Without Cause. Follow up with: ; LUBNA DANIELS Within 2 to 3 days Please continue to monitor symptoms. If migraines continue follow up with dr. daniels. Return to ER as needed. . Counseled: Patient, Regarding diagnosis, Regarding diagnostic results, Regarding treatment plan, Regarding prescription, Patient indicated understanding of instructions. documented in this encounter Plan of Treatment Upcoming Encounters Date Type Department Care Team (Late st Contact Info) Description 11/03/2025 12:45 PM EST Office Visit [facility] Pulmonology - [address] [place] [id number] Ben Barrios MD [address] [place] [address] documented as of this encounter Visit Diagnoses Not on filedocumented in this encounter Care Teams Base Loader Relationship Specialty Start Date End Date Amie Pena MD [facility] [place]note 2] [place] [address] PCP - General Family Medicine 10/31/22 04/08/23 Marvel Grayson MD [address] [place] [address] PCP - General Family Medicine 05/17/23 Marvel Grayson [address] [id number] Family Practice 04/09/23 documented as of this encounter
--- OUTSIDE RECORDS SUMMARY | 2025-07-02 14:05 | XMS_ITS | Encounter Summary ---
Author Organization [employer] ([place], [place], [place], [place]) Address [address] [place] [address] Care Team Providers Care Campaign Director Name Role Phone Amie Pena MD Primary Care Provider [phone] Marvel Grayson MD Primary Care Provider [phone] Encounter Details Date Type Department Care Team (Late st Contact Info) Description 11/28/[address] [facility] [place] [address] [place] [address] ProviderMik MD [address] [place] [address] Social History Tobacco Use Types Packs/Day Years Used Date Smoking Tobacco: Never Assessed Comments Unknown Sex and Gender Information Value Date Recorded Sex Assigned at Not on file Legal Sex Female 6:09 PM CDT Gender Identity Not on file Sexual Orientation Not on file documented as of this encounter Miscellaneous Notes * Cerner Conversion Note - Mik ProviderMD - 11/28/2018 3:00 PM CDT ED Discharge Entered On: 11/28/2018 15:00 EDT Performed On: 11/28/2018 15:00 EDT by Melonie Castaneda RN Discharge Process Patient Disposition : Discharge Personal Belongings With Patient : Yes Patient Education Completed : Yes Teaching Evaluation : Verbalizes understanding IV Discontinued : Yes Nursing Documentation Completed : Yes Melonie Castaneda RN - 11/28/2018 15:00 EDT ED Discharge Discharge To : Home with ambulatory/outpatient follow-up Mode Of Departure : Ambulatory Accompanied By : Friend Discharge Instructions Reviewed With, Opportunity For Questions Given : Patient Prescriptions Given to Patient : Electronically sent Melonie Castaneda RN - 11/28/2018 15:00 EDT Electronically signed by Karthikeyan Bean Conversion Track Inspecting Supervisor Cerner at 12/16/2022 10:40 AM CDT documented in this encounter Plan of Treatment Upcoming Encounters Date Type Department Care Team (Late st Contact Info) Description 11/03/2025 12:45 PM EST Office Visit [facility] Pulmonology - [address] [place] [address] Ben Barrios MD [address] [place] [address] documented as of this encounter Visit Diagnoses Not on filedocumented in this encounter Care Teams Campaign Director Relationship Specialty Start Date End Date Amie Pena MD [address] [place], [place] [address] [address] PCP - General Family Medicine 10/31/22 04/08/23 Marvel Grayson MD [address] [place] [address] [place] [address] PCP - General Family Medicine 05/17/23 Marvel Grayson [address] [place] [address] Family Practice 04/09/23 documented as of this encounter
--- OUTSIDE RECORDS SUMMARY | 2025-07-02 14:05 | XMS_ITS | Encounter Summary ---
Author Organization [employer] ([place], [place], [place], [place]) Address [address] [place] [address] Care Team Providers Care Station Engineer Main Line Name Role Phone Amie Pena MD Primary Care Provider [phone] Marvel Grayson MD Primary Care Provider [phone] Encounter Details Date Type Department Care Team (Late st Contact Info) Description 08/06/2020 Transcribed Document [facility] [place] [address] ProviderMik MD [address] [place] [address] Social History Tobacco Use Types Packs/Day Years Used Date Smoking Tobacco: Never Assessed Comments Unknown Sex and Gender Information Value Date Recorded Sex Assigned at Not on file Legal Sex Female 6:09 PM CDT Gender Identity Not on file Sexual Orientation Not on file documented as of this encounter Miscellaneous Notes * Cerner Conversion Note - Mik ProviderMD - 08/06/2020 1:53 PM SCRUM PRODUCT OWNER ED Assessment Entered On: 08/06/2020 14:05 EST Performed On: 08/06/2020 14:01 EST by RADHA BROOKS, LEGAL SUPPORT ASSISTANT Quick Look Assessment Level of Consciousness : Alert Affect/Behavior : Calm, Cooperative Orientation : Oriented x 4 Skin Temperature : Warm Skin Description : Dry RADHA BROOKS RN - 08/06/2020 14:01 EST ED General-Functional Assess Information Obtained From : Patient Preferred Communication Mode : Verbal Communication Barrier : None Primary Language : [place] Any Spiritual/Cultural Needs or Requests : No Currently in Unsafe Situation : No RADHA BROOKS RN - 08/06/2020 14:01 EST Social Habits Smoking Status : 10 or more cigarettes (1/2 pack or more)/day in last 30 days Smokeless Tobacco Status : Never Desires Tobacco Cessation Medication : No Reason for No Tobacco Cessation Medication : ED/procedural patient only Desires Tobacco Cessation Calc : 1 RADHA BROOKS RN - 08/06/2020 14:01 EST Social History (As Of: 08/06/2020 14:05:48 EST) Tobacco: Use in Last 12 Months: [...] 07/19/2016 17:26:14 EST by PANCHO SAEED RN) Musculoskeletal Musculoskeletal Assessment Comment : pt co right shoulder pain radiating into fingers, and back pain after fall yesterday pt ambulated to room with steady gait RADHA BROOKS RN - 08/06/2020 14:01 EST documented in this encounter Plan of Treatment Upcoming Encounters Date Type Department Care Team (Late st Contact Info) Description 11/03/2025 12:45 PM EST Office Visit [facility] Pulmonology - [address] [place] [address] Ben Barrios MD [address] [place] [address] documented as of this encounter Visit Diagnoses Not on filedocumented in this encounter Care Teams Station Engineer Main Line Relationship Specialty Start Date End Date Amie Pena MD [address] [place] [address] [place] [address] PCP - General Family Medicine 10/31/22 04/08/23 Marvel Grayson MD [address] [place] [address] [place] [address] PCP - General Family Medicine 05/17/23 Marvel Grayson [address] [place] [address] Family Practice 04/09/23 documented as of this encounter
--- OUTSIDE RECORDS SUMMARY | 2025-07-02 14:05 | XMS_ITS | Encounter Summary ---
Author Organization [employer] ([place], [place], [place], [place]) Address [address] [place] [address] Care Team Providers Care Wool Hat Sanding Machine Operator Name Role Phone Amie Pena MD Primary Care Provider [phone] Marvel Grayson MD Primary Care Provider [phone] Encounter Details Date Type Department Care Team (Late st Contact Info) Description 11/22/2018 Transcribed Document [facility] [place] [address] [place] [address] ProviderMik MD [address] [place] [address] Social History Tobacco Use Types Packs/Day Years Used Date Smoking Tobacco: Never Assessed Comments Unknown Sex and Gender Information Value Date Recorded Sex Assigned at Not on file Legal Sex Female 6:09 PM CDT Gender Identity Not on file Sexual Orientation Not on file documented as of this encounter Miscellaneous Notes * Cerner Conversion Note - Historical ProviderMD - 11/22/2018 1:52 PM CDT documented in this encounter Plan of Treatment Upcoming Encounters Date Type Department Care Team (Late st Contact Info) Description 11/03/2025 12:45 PM EST Office Visit [facility] Pulmonology - [address] [place] [phone] Ben Barrios MD [address] [place] [address] documented as of this encounter Visit Diagnoses Not on filedocumented in this encounter Care Teams Wool Hat Sanding Machine Operator Relationship Specialty Start Date End Date Amie Pena MD [address] [place] [address] PCP - General Family Medicine 10/31/22 04/08/23 Marvel Grayson MD [address] [place] [address] PCP - General Family Medicine 05/17/23 Marvel Grayson [address] [place] [address] Family Practice 04/09/23 documented as of this encounter
--- OUTSIDE RECORDS SUMMARY | 2025-07-02 14:05 | XMS_ITS | Encounter Summary ---
Author Organization [employer] ([place], [place], [place], [place]) Address [address] [place] [address] Care Team Providers Care Manager Commercial Sales Name Role Phone Amie Pena MD Primary Care Provider [phone] Marvel Grayson MD Primary Care Provider [phone] Encounter Details Date Type Department Care Team (Late st Contact Info) Description 11/28/2018 Transcribed Document [facility] [place] [address] [place] [address] ProviderMik MD [address] [place] [address] Social History Tobacco Use Types Packs/Day Years Used Date Smoking Tobacco: Never Assessed Comments Unknown Sex and Gender Information Value Date Recorded Sex Assigned at Not on file Legal Sex Female 6:09 PM CDT Gender Identity Not on file Sexual Orientation Not on file documented as of this encounter Miscellaneous Notes * Cerner Conversion Note - Mik ProviderMD - 11/28/2018 1:36 PM CDT Pain Assessment Entered On: 11/28/2018 14:46 EDT Performed On: 11/28/2018 14:46 EDT by Melonie Castaneda, RN Intervention Information: ketorolac Performed by Melonie Castaneda RN on 11/28/2018 13:56:00 EDT ketorolac,30mg IV Push,Peripheral Line 1 Pain Assessment Pain Assessment : Follow-up assessment Pain Scale Used : 0-10 Scale Melonie Castaneda RN - 11/28/2018 14:46 EDT Pain Scale Intensity : 4 Melonie Castaneda RN - 11/28/2018 14:46 EDT Image 4 - Images currently included in the form version of this document have not been included in the text rendition version of the form. Electronically signed by [place], [facility] Conversion Earth Science Laboratory Technician Cerner at 12/16/2022 10:37 AM CDT documented in this encounter Plan of Treatment Upcoming Encounters Date Type Department Care Team (Late st Contact Info) Description 11/03/2025 12:45 PM EST Office Visit [facility] Pulmonology - [address] [place] [address] Ben Barrios MD [address] [place] [address] documented as of this encounter Visit Diagnoses Not on filedocumented in this encounter Care Teams Manager Commercial Sales Relationship Specialty Start Date End Date Amie Pena MD [address] [place] [address] [place] [address] PCP - General Family Medicine 10/31/22 04/08/23 Marvel Grayson MD [address] [place] [address] [place] [address] PCP - General Family Medicine 05/17/23 Marvel Grayson [address] [place] [address] Family Practice 04/09/23 documented as of this encounter
--- OUTSIDE RECORDS SUMMARY | 2025-07-02 14:05 | XMS_ITS | Encounter Summary ---
Author Organization [employer] ([place], [place], [place], [place]) Address [address] [place] [address] Care Team Providers Care Run Lead Name Role Phone Amie Pena MD Primary Care Provider [phone] Marvel Grayson MD Primary Care Provider [phone] Encounter Details Date Type Department Care Team (Late st Contact Info) Description 08/06/2020 Transcribed Document [facility] [place] [facility] [place] [address] ProviderMik MD [address] [place] [address] Social History Tobacco Use Types Packs/Day Years Used Date Smoking Tobacco: Never Assessed Comments Unknown Sex and Gender Information Value Date Recorded Sex Assigned at Not on file Legal Sex Female 6:09 PM CDT Gender Identity Not on file Sexual Orientation Not on file documented as of this encounter Miscellaneous Notes * Cerner Conversion Note - Historical ProviderMD - 08/06/2020 1:53 PM SNOWBOARDER [place] Suicide Severity Rating Scale (C-SSRS) Entered On: 08/06/2020 14:06 EST Performed On: 08/06/2020 14:06 EST by RADHA BROOKS RN [place] Suicide Severity Rating Scale (C-SSRS) CSSRS Past Month Wish to be : No CSSRS Past Month Suicidal Thoughts : No CSSRS Lifetime Suicide Behavior : No Suicide Severity Rating Score : 0 Suicide Severity Rating : No Additional Care Required at this time RADHA BROOKS, RN - 08/06/2020 14:06 EST Electronically signed by [place] [facility] Conversion Theatrical Scenic Designer Cerner at 12/16/2022 10:43 AM CDT documented in this encounter Plan of Treatment Upcoming Encounters Date Type Department Care Team (Late st Contact Info) Description 11/03/2025 12:45 PM EST Office Visit [facility] Pulmonology - [address] [place] [phone] Ben Barrios MD [address] [place] [address] documented as of this encounter Visit Diagnoses Not on filedocumented in this encounter Care Teams Run Lead Relationship Specialty Start Date End Date Amie Pena MD [address] [place] [address] [place] [address] PCP - General Family Medicine 10/31/22 04/08/23 Marvel Grayson MD [address] [place] [address] PCP - General Family Medicine 05/17/23 Marvel Grayson [address] [place] [address] Family Practice 04/09/23 documented as of this encounter
--- OUTSIDE RECORDS SUMMARY | 2025-07-02 14:05 | XMS_ITS | Encounter Summary ---
Author Organization [employer] ([place], [place], [place], [place]) Address [address] [place] [address] Care Team Providers Care Banquet Waiter/Waitress Name Role Phone Amie Pena MD Primary Care Provider [phone] Marvel Grayson MD Primary Care Provider [phone] Encounter Details Date Type Department Care Team (Late st Contact Info) Description 11/28/2018 Transcribed Document [facility] [place] [facility] [place] [address] [place] [address] ProviderMik MD [address] [place] [address] Social History Tobacco Use Types Packs/Day Years Used Date Smoking Tobacco: Never Assessed Comments Unknown Sex and Gender Information Value Date Recorded Sex Assigned at Not on file Legal Sex Female 6:09 PM CDT Gender Identity Not on file Sexual Orientation Not on file documented as of this encounter Miscellaneous Notes * Cerner Conversion Note - Historical ProviderMD - 11/28/2018 2:54 PM CDT documented in this encounter Plan of Treatment Upcoming Encounters Date Type Department Care Team (Late st Contact Info) Description 11/03/2025 12:45 PM EST Office Visit [facility] Pulmonology - [address] [place] [phone] Ben Barrios MD [address] [place] [address] documented as of this encounter Visit Diagnoses Not on filedocumented in this encounter Care Teams Banquet Waiter/Waitress Relationship Specialty Start Date End Date Amie Pena MD [address] [place] [address] PCP - General Family Medicine 10/31/22 04/08/23 Marvel Grayson MD [address] [place] [address] PCP - General Family Medicine 05/17/23 Marvel Grayson [address] [place] [address] Family Practice 04/09/23 documented as of this encounter
--- OUTSIDE RECORDS SUMMARY | 2025-07-02 14:05 | XMS_ITS | Encounter Summary ---
Author Organization [facility] ([place], [place], [place], [place]) Address [address] [place] [address] Care Team Providers Care Engineer Assistant Name Role Phone Amie Pena MD Primary Care Provider [phone] Marvel Grayson MD Primary Care Provider [phone] Encounter Details Date Type Department Care Team (Late st Contact Info) Description 11/22/2018 Transcribed Document [facility] Family Medicine [address] [place] [address] ProviderMik MD [address] [place] [address] Social History Tobacco Use Types Packs/Day Years Used Date Smoking Tobacco: Never Assessed Comments Unknown Sex and Gender Information Value Date Recorded Sex Assigned at Not on file Legal Sex Female 6:09 PM CDT Gender Identity Not on file Sexual Orientation Not on file documented as of this encounter Miscellaneous Notes * Cerner Conversion Note - Mik ProviderMD - 11/22/2018 12:43 PM CDT ED Triage Entered On: 11/22/2018 13:00 EDT Performed On: 11/22/2018 12:57 EDT by Kimmie Avila, OPHTHALMIC MEDICAL TECHNICIAN Triage Across the Room Triage Date/Time : 11/22/2018 12:57 EDT Chief Complaint : pt c/o lower back pain, left hip pain, going down leg, pt HX of chronic back pain, with therapy, took muscle relaxer yesterday with no relief, Kimmie Avila RN - 11/22/2018 12:57 EDT DCP GENERIC CODE Tracking Acuity : 4 - Non - Urgent Tracking Group : [facility] Kimmie Avila RN - 11/22/2018 12:57 EDT Mode of Arrival : Ambulatory Transported to ED by : Private vehicle To Room Via : Wheelchair Accompanied By : Unaccompanied ED Vital Signs : Document Height & Weight : Document ED Allergies : Document ED Reason for Visit : Document Tetanus Immunization : Greater than 10 years Tried to Harm Yourself in the Past? : No Thoughts of Harming/Killing Yourself : No Kimmie Avila RN - 11/22/2018 12:57 EDT Infectious Disease History Infectious Disease History : Chicken pox/Shingles, Measles, Mumps, Other: staph LLF 02/2014 Fever/Chills Last 48 Hours : No Travel To Regions with Travel Advisories : No Travel Outside [place] Within Last 30 Days : No Contact With Traveler to Advisory Region : No Tuberculosis Symptoms : None Kimmie Avila RN - 11/22/2018 12:57 EDT Vital Signs ED Temperature Source : Oral Temperature Mode : Fahrenheit Temperature, Fahrenheit : 97.8 Deg F ED Pain : Yes Clinical Temperature, C : 36.6 Deg C Oxygen Therapy Mode : Room air Peripheral Pulse Rate : 105 bpm (HI) Respiratory Rate : 16 Breaths/Min Systolic Blood Pressure : 171 mmHg (HI) Diastolic Blood Pressure : 81 mmHg Oxygen Saturation : 97 % Kimmie Avila RN - 11/22/2018 12:57 EDT Allergy (As Of: 11/22/2018 13:00:05 EDT) Allergies (Active) codeine Estimated Onset Date: Unspecified ; Reactions: Respiratory depression ; Comments: Comment 1: Patient has had hydromorphone and tolerated without problem ; Created By: ALBERTO PHELPS, PharmD; Reaction Status: Active ; Category: Drug ; Substance: codeine ; Type: Side Effect ; Updated By: ALBERTO PHELPS, PharmD; Reviewed Date: 11/22/2018 12:59 EDT Cymbalta Estimated Onset Date: Unspecified ; Reactions: suicidal ; Created By: Ariella Hammer Rn; Reaction Status: Active ; Category: Drug ; Substance: Cymbalta ; Type: Allergy ; Updated By: Ariella Hammer Rn; Reviewed Date: 11/22/2018 12:59 EDT doxycycline Estimated Onset Date: Unspecified ; Created By: RACHELLE LEA Rn; Reaction Status: Active ; Category: Drug ; Substance: doxycycline ; Type: Allergy ; Updated By: RACHELLE LEA Rn; Reviewed Date: 11/22/2018 12:59 EDT Haldol Estimated Onset Date: Unspecified ; Reactions: Hives ; Created By: ALBERTO PHELPS, PharmD; Reaction Status: Active ; Category: Drug ; Substance: Haldol ; Type: Allergy ; Updated By: ALBERTO PHELPS, PharmD; Reviewed Date: 11/22/2018 12:59 EDT penicillin Estimated Onset Date: Unspecified ; Created By: CARLOS RAMOS; Reaction Status: Active ; Category: Drug ; Substance: penicillin ; Type: Allergy ; Updated By: CARLOS RAMOS; Reviewed Date: 11/22/2018 12:59 EDT Ultram Estimated Onset Date: Unspecified ; Created By: CARLOS RAMOS; Reaction Status: Active ; Category: Drug ; Substance: Ultram ; Type: Allergy ; Updated By: CARLOS RAMOS; Reviewed Date: 11/22/2018 12:59 EDT Vraylar Estimated Onset Date: Unspecified ; Created By: Ariella Hammer Rn; Reaction Status: Active ; Category: Drug ; Substance: Vraylar ; Type: Allergy ; Updated By: Ariella Hammer Rn; Reviewed Date: 11/22/2018 12:59 EDT Diagnosis Control ED (As Of: 11/22/2018 13:00:05 EDT) Problems(Active) Arthritis (SNOMED CT :6364843 ) Name of Problem: Arthritis ; Recorder: LASHANDA WEBER RN; Confirmation: Confirmed ; Classification: Patient Stated ; Code: [id number] ; Contributor System: Moodlerooms ; Last Updated: 02/13/2014 15:57 EDT ; Life Cycle Date: 02/13/2014 ; Life Cycle Status: Active ; Vocabulary: SNOMED CT Asthma (SNOMED CT :[id number] ) Name of Problem: Asthma ; Recorder: PANCHO SAEED RN; Confirmation: Confirmed ; Classification: Medical ; Code: [id number] ; Contributor System: PowerChart ; Last Updated: 02/12/2014 19:24 EDT ; Life Cycle Date: 11/28/2013 ; Life Cycle Status: Active ; Vocabulary: SNOMED CT Back pain (SNOMED CT :918199378 ) Name of Problem: Back pain ; Recorder: DENNISE ALVAREZ RN; Confirmation: Confirmed ; Classification: Medical ; Code: [id number] ; Contributor System: PowerChart ; Last Updated: 07/13/2014 14:28 EST ; Life Cycle Date: 07/13/2014 ; Life Cycle Status: Active ; Vocabulary: SNOMED CT Fibromyalgia (SNOMED CT :[id number] ) Name of Problem: Fibromyalgia ; Recorder: PANCHO SAEED RN; Confirmation: Confirmed ; Classification: Medical ; Code: [id number] ; Contributor System: PowerChart ; Last Updated: 02/12/2014 19:24 EDT ; Life Cycle Date: 11/28/2013 ; Life Cycle Status: Active ; Vocabulary: SNOMED CT H/O: hysterectomy (SNOMED CT :455559213 ) Name of Problem: H/O: hysterectomy ; Recorder: HOWARD HU RN; Confirmation: Confirmed ; Classification: Medical ; Code: [id number] ; Contributor System: PowerChart ; Last Updated: [...] Active PTSD (post-traumatic stress disorder) (SNOMED CT :07415250 ) Name of Problem: PTSD (post-traumatic stress disorder) ; Recorder: MARIAN YAO RN; Confirmation: Confirmed ; Classification: Medical ; Code: [id number] ; Contributor System: Moodlerooms ; Last Updated: 03/29/2015 21:19 EDT ; Life Cycle Date: 03/29/2015 ; Life Cycle Status: Active ; Vocabulary: SNOMED CT Sciatica (SNOMED CT :79277805 ) Name of Problem: Sciatica ; Recorder: TRISH MCMAHON RN; Confirmation: Confirmed ; Classification: Medical ; Code: [id number] ; Contributor System: Moodlerooms ; Last Updated: 05/24/2015 17:38 EDT ; Life Cycle Date: 05/24/2015 ; Life Cycle Status: Active ; Vocabulary: SNOMED CT Diagnoses(Active) Back pain Date: 11/22/2018 ; Diagnosis Type: Reason For Visit ; Confirmation: Complaint of ; Clinical Dx: Back pain ; Classification: Medical ; Clinical Service: Emergency medicine ; Code: PNED ; Probability: 0 ; Diagnosis Code: [id number] ED Height and Weight Height Source : Stated Height Entry Format : [place] Height, Feet : 5 ft(Converted to: 152 cm, 60 Inch) Height, Inches : 9 Inch(Converted to: 0 ft 9 Inch, 22.86 cm) Clinical Height : 175.26 cm Weight Source, ED : Critical estimated dosing weight Weight Entry Format : [place] Weight, Pounds : 203 lb Clinical Dosing Weight : 92.27 kg Body Surface Area (BSA) : 2.08 m2 Body Mass Index : 30 kg/m2 (HI) Garber Body Weight (IBW) : 65.73 kg Kimmie Avila RN - 11/22/2018 12:57 EDT Pain Assessment Pain Assessment : Initial assessment Pain Scale Used : 0-10 Scale Location : Back, lower Kimmie Avila RN - 11/22/2018 12:57 EDT Pain Scale Intensity : 8 Kimmie Avila RN - 11/22/2018 12:57 EDT Image 4 - Images currently included in the form version of this document have not been included in the text rendition version of the form. Electronically signed by Karthikeyan Bean Conversion Vehicle Calibration Engineer Cerner at 12/16/2022 10:46 AM CDT documented in this encounter Plan of Treatment Upcoming Encounters Date Type Department Care Team (Late st Contact Info) Description 11/03/2025 12:45 PM EST Office Visit [facility] Pulmonology - [address] [place] [address] Ben Barrios MD [address] [place], [place] [id number] documented as of this encounter Visit Diagnoses Not on filedocumented in this encounter Care Teams Engineer Assistant Relationship Specialty Start Date End Date Amie Pena MD [address] [place] [address] PCP - General Family Medicine 10/31/22 04/08/23 Marvel Grayson MD [address] [place] [address] [place] [address] PCP - General Family Medicine 05/17/23 Marvel Grayson [address] [place] [address] Family Practice 04/09/23 documented as of this encounter
--- OUTSIDE RECORDS SUMMARY | 2025-07-02 14:05 | XMS_ITS | Encounter Summary ---
Author Organization [employer] ([place], [place], [place], [place]) Address [address] [place] [address] Care Team Providers Care Correspondence School Teacher Name Role Phone Amie Pena MD Primary Care Provider [phone] Marvel Grayson MD Primary Care Provider [phone] Encounter Details Date Type Department Care Team (Late st Contact Info) Description 11/28/[address] [facility] Family [place] [facility] [place] [address] ProviderMik MD [address] [place] [address] Social History Tobacco Use Types Packs/Day [...] Historical ProviderMD - 11/28/2018 3:01 PM CDT [address] [place] [address] Patient Information Name: PRATIK SHABAZZ Age: 48 Years Date of : 1970 Arrival Time: 11/28/2018 13:04:00 Diagnosis Generalized headache Primary Care Physician: FRANCISCO JOHANSEN Provider Information Primary Provider: EARL STACK, NURSE PRACT-EMERGENCY MEDICINE Secondary Provider: PRATIK SHABAZZ has been given the following list of patient education materials, prescriptions and follow-up instructions: Follow-up Instructions: With: Address: When: LUBNA ROEL [address], [address] [place], [place] [id number] Business (1) Within 2 to 3 days Comments: Please continue to monitor symptoms. If migraines continue follow up with dr. daniels. Return to ER as needed. Patient Education Materials: General Headache Without Cause A headache is pain or discomfort felt around the head or neck area. The specific cause of a headache may not be found. There are many causes and types of headaches. A few common ones are: ??? Tension headaches. ??? Migraine headaches. ??? Cluster headaches. ??? Chronic daily headaches. Follow these instructions at home: Watch your condition for any changes. Take these steps to help with your condition: Managing pain ??? Take nlgn-pet-bfbnjjn and prescription medicines only as told by your health care provider. ??? Lie down in a dark, quiet room when you have a headache. ??? If directed, apply ice to the head and neck area: ? Put ice in a plastic bag. ? Place a towel between your skin and the bag. ? Leave the ice on for 20 minutes, 2?3 times per day. ??? Use a heating pad or hot shower to apply heat to the head and neck area as told by your health care provider. ??? Keep lights dim if bright lights bother you or make your headaches worse. Eating and drinking ??? Eat meals on a regular schedule. ??? Limit alcohol use. ??? Decrease the amount of caffeine you drink, or stop drinking caffeine. General instructions ??? Keep all follow-up visits as told by your health care provider. This is important. ??? Keep a headache journal to help find out what may trigger your headaches. For example, write down: ? What you eat and drink. ? How much sleep you get. ? Any change to your diet or medicines. ??? Try massage or other relaxation techniques. ??? Limit stress. ??? Sit up straight, and do not tense your muscles. ??? Do notuse tobacco products, including cigarettes, chewing tobacco, or e-cigarettes. If you need help quitting, ask your health care provider. ??? Exercise regularly as told by your health care provider. ??? Sleep on a regular schedule. Get 7?9 hours of sleep, or the amount recommended by your health care provider. Contact a health care provider if: ??? Your symptoms are not helped by medicine. ??? You have a headache that is different from the usual headache. ??? You have nausea or you vomit. ??? You have a fever. Get help right away if: ??? Your headache becomes severe. ??? You have repeated vomiting. ??? You have a stiff neck. ??? You have a loss of vision. ??? You have problems with speech. ??? You have pain in the eye or ear. ??? You have muscular weakness or loss of muscle control. ??? You lose your balance or have trouble walking. ??? You feel faint or pass out. ??? You have confusion. This information is not intended to replace advice given to you by your health care provider. Make sure you discuss any questions you have with your health care provider. Document Released: 08/20/2006 Document Revised: 01/25/2017 Document Reviewed: 12/13/2015 [employer] Patient Education ? 2017 [employer] Allergies: Vraylar; Cymbalta; Ultram; Haldol; penicillin; doxycycline; codeine Medication Information: Prescription Display cyclobenzaprine (cyclobenzaprine 10 mg oral tablet) 1 Tab, Oral, Tab, TID, PRN as needed for spasm, # 30 Tab, 0 Refill(s), [facility] [id number] Laboratory or Other Results This Visit (last charted value for your 11/28/2018 visit) No Laboratory or Other Results This Visit Medication Comment: Procedures: Laboratory Orders No laboratory orders were placed. Radiology Orders No radiology orders were placed. Cardiology Orders No cardiology orders were placed. This statement is to verify that PRATKI SHABAZZ was seen at [facility] Emergency Department on ,11/28/2018 15:01:11. This is not a work excuse, if [...] along the way. As a healthcare provider, [facility] recommends that you stop smoking. Assistance with quitting is available by contacting 3-980-WZER-NOW. This is a free resource providing counseling, [...] Electronic Communications Privacy Act 18 U.S.C. ???Sections 8211-9288,?? and contain information intended for the specified [...] sure to sign up for the My [facility] patient portal, which gives you 26/03 access to your medical information ??? including these discharge instructions ??? using your computer, smartphone, or tablet. Just go to [employer] to get started. Questions? Call . Acknowledgment [...] Office Visit [facility] Pulmonology - [address] [place] [id number] Ben Barrios MD [address] [place] [address] documented as of this encounter Visit Diagnoses Not on filedocumented in this encounter Care Teams Correspondence School Teacher Relationship Specialty Start Date End Date Amie Pena MD [address] [place] [address] [place] [address] PCP - General Family Medicine 10/31/22 04/08/23 Marvel Grayson MD [address] [place] [address] [place] [address] PCP - General Family Medicine 05/17/23 Marvel Grayson [address] [place] [address] Family Practice 04/09/23 documented as of this encounter
--- OUTSIDE RECORDS SUMMARY | 2025-07-02 14:06 | XMS_ITS | Encounter Summary ---
Author Organization [employer] ([place], [place], [place], [place]) Address [address] [place] [address] Care Team Providers Care Academic Director Name Role Phone Amie Pena MD Primary Care Provider [phone] Marvel Grayson MD Primary Care Provider [phone] Encounter Details Date Type Department Care Team (Late st Contact Info) Description 11/30/2020 Transcribed Document [facility] Family Medicine [address] [place] [address] ProviderMik MD [address] [place] [address] Social History [...] Cerner Conversion Note - Historical ProviderMD - 11/30/2020 4:11 PM CDT ED Triage Entered On: 11/30/2020 16:17 EDT Performed On: 11/30/2020 16:14 EDT by Erinn Powell, CEPHALOMETRIC ANALYST Triage Across the Room Chief Complaint : pt c/o back pain between shoulder blades since late last night, pt states has chronic back pain and is scheduled for pain management December 06 Triage Date/Time : 11/30/2020 16:14 EDT Erinn Powell RN - 11/30/2020 16:14 EDT DCP GENERIC CODE Tracking Acuity : 4 - Non - Urgent Tracking Group : [facility] ED Sebastián Erinn Powell RN - 11/30/2020 16:14 EDT Mode of Arrival : Ambulatory Transported to ED by : Private vehicle To Room Via : Ambulate Accompanied By : Unaccompanied ED Vital Signs : Document Height & Weight : Document ED Allergies : Document ED Reason for Visit : Document Tetanus Immunization : Greater than 10 years Erinn Powell RN - 11/30/2020 16:14 EDT Infectious Disease History Has the patient ever [...] staph LLF 02/2014 Tuberculosis Symptoms : None Erinn Powell RN - 11/30/2020 16:14 EDT Vital Signs ED Temperature Source : Oral Temperature Mode : Fahrenheit Temperature, Fahrenheit : 98.5 Deg F Clinical Temperature, C : 36.9 Deg C Oxygen Therapy Mode : Room air Peripheral Pulse Rate : 88 bpm Respiratory Rate : 18 Breaths/Min Systolic Blood Pressure : 155 mmHg (HI) Diastolic Blood Pressure : 95 mmHg (HI) Oxygen Saturation : 97 % Erinn Powell RN - 11/30/2020 16:14 EDT Allergy (As Of: 11/30/2020 16:17:28 EDT) Allergies (Active) codeine Estimated Onset Date: Unspecified ; Reactions: Respiratory depression ; Comments: Comment 1: Patient has had hydromorphone and tolerated without problem ; Created By: ALBERTO PHELPS, PharmD; Reaction Status: Active ; Category: Drug ; Substance: codeine ; Type: Side Effect ; Updated By: ALBERTO PHELPS, PharmD; Reviewed Date: 11/30/2020 16:16 EDT Cymbalta Estimated Onset Date: Unspecified ; Reactions: suicidal ; Created By: Ariella Hammer RN; Reaction Status: Active ; Category: Drug ; Substance: Cymbalta ; Type: Allergy ; Updated By: Ariella Hammer RN; Reviewed Date: 11/30/2020 16:16 EDT doxycycline Estimated Onset Date: Unspecified ; Reactions: Vomiting ; Created By: ALLA ZAPATA RN; Reaction Status: Active ; Category: Drug ; Substance: doxycycline ; Type: Allergy ; Updated By: ALLA ZAPATA RN; Reviewed Date: 11/30/2020 16:16 EDT Haldol Estimated Onset Date: Unspecified ; Reactions: Hives ; Created By: ALBERTO PHELPS, PharmD; Reaction Status: Active ; Category: Drug ; Substance: Haldol ; Type: Allergy ; Updated By: ALBERTO PHELPS, PharmD; Reviewed Date: 11/30/2020 16:16 EDT Levaquin Estimated Onset Date: <not entered> 07/05/2018 ; Created By: Nasreen Fishman RN; Reaction Status: Active ; Category: Drug ; Substance: Levaquin ; Type: Allergy ; Severity: Low ; Updated By: Nasreen Fishman RN; Source: Patient ; Reviewed Date: 11/30/2020 16:16 EDT penicillin Estimated Onset Date: Unspecified ; Reactions: Headache ; Created By: ALLA ZAPATA RN; Reaction Status: Active ; Category: Drug ; Substance: penicillin ; Type: Allergy ; Updated By: ALLA ZAPATA RN; Reviewed Date: 11/30/2020 16:16 EDT Ultram Estimated Onset Date: Unspecified ; Reactions: Hives ; Created By: ALLA ZAPATA RN; Reaction Status: Active ; Category: Drug ; Substance: Ultram ; Type: Allergy ; Updated By: ALLA ZAPATA RN; Reviewed Date: 11/30/2020 16:16 EDT Vraylar Estimated Onset Date: Unspecified ; Reactions: Suicidal thoughts ; Created By: ALLA ZAPATA RN; Reaction Status: Active ; Category: Drug ; Substance: Vraylar ; Type: Allergy ; Updated By: ALLA ZAPATA RN; Reviewed Date: 11/30/2020 16:16 EDT Diagnosis Control ED (As Of: 11/30/2020 16:17:28 EDT) Problems(Active) Arthritis (SNOMED CT :6692393 ) Name of Problem: Arthritis ; Recorder: LASHANDA WEBER RN; Confirmation: Confirmed ; Classification: Patient Stated ; Code: [id number] ; Contributor System: [employer] ; Last Updated: 02/13/2014 15:57 EDT ; Life Cycle Date: 02/13/2014 ; Life Cycle Status: Active ; Vocabulary: SNOMED CT Asthma (SNOMED CT :[id number] ) Name of Problem: Asthma ; Recorder: PANCHO SAEED RN; Confirmation: Confirmed ; Classification: Medical ; Code: [id number] ; Contributor System: [employer] ; Last Updated: 02/12/2014 19:24 EDT ; Life Cycle Date: 11/28/2013 ; Life Cycle Status: Active ; Vocabulary: SNOMED CT Back pain (SNOMED CT :019387669 ) Name of Problem: Back pain ; Recorder: DENNISE ALVAREZ RN; Confirmation: Confirmed ; Classification: Medical ; Code: [id number] ; Contributor System: PowerChart ; Last Updated: 07/13/2014 14:28 EST ; Life Cycle Date: 07/13/2014 ; Life Cycle Status: Active ; Vocabulary: SNOMED CT COPD (chronic obstructive pulmonary disease) (SNOMED CT :76740671 ) Name of Problem: COPD (chronic obstructive pulmonary disease) ; Recorder: ALLA ZAPATA RN; Confirmation: Confirmed ; Classification: Medical ; Code: [id number] ; Contributor System: PowerChart ; Last Updated: 04/11/2019 13:15 EDT ; Life Cycle Date: 04/11/2019 ; Life Cycle Status: Active ; Vocabulary: SNOMED CT COPD exacerbation (SNOMED CT :942352558 ) Name of Problem: COPD exacerbation ; Recorder: YURIY CASEY; Confirmation: Confirmed ; Classification: Medical ; Code: [id number] ; Contributor System: PowerChart ; Last Updated: 07/07/2019 11:33 EST ; Life Cycle Status: Active ; Responsible Provider: YURIY CASEY; Vocabulary: SNOMED CT Fibromyalgia (SNOMED CT :[id number] ) Name of Problem: Fibromyalgia ; Recorder: PANCHO SAEED RN; Confirmation: Confirmed ; Classification: Medical ; Code: [id number] ; Contributor System: PowerChart ; Last Updated: 02/12/2014 19:24 EDT ; Life Cycle Date: 11/28/2013 ; Life Cycle Status: Active ; Vocabulary: SNOMED CT H/O: hysterectomy (SNOMED CT :550521888 ) Name of Problem: H/O: hysterectomy ; Recorder: HOWARD HU RN; Confirmation: Confirmed ; Classification: Medical ; Code: 753403864 ; Contributor System: PowerChart ; Last Updated: 12/29/2016 21:54 EDT ; Life Cycle Date: 12/29/2016 ; Life Cycle Status: Active ; Vocabulary: SNOMED CT heart burn (SNOMED CT :13871355 ) Name of Problem: heart burn ; Recorder: MRAIAN YAO RN; Confirmation: Confirmed ; Classification: Medical ; Code: 78142737 ; Contributor System: PowerChart ; Last Updated: 01/20/2019 18:21 EDT ; Life Cycle Date: 03/29/2015 ; Life Cycle Status: Active ; Vocabulary: SNOMED CT Irritable bowel syndrome (SNOMED CT :16121814 ) Name of Problem: Irritable bowel syndrome ; Recorder: Yi Hardy Rn; Confirmation: Confirmed ; Classification: Medical ; Code: 96110061 ; Contributor System: PowerChart ; Last Updated: 04/18/2019 6:31 EDT ; Life Cycle Date: 04/18/2019 ; Life Cycle Status: Active ; Vocabulary: SNOMED CT Migraine (SNOMED CT :30785095 ) Name of Problem: Migraine ; Recorder: Yi Hardy Rn; Confirmation: Confirmed ; Classification: Medical ; Code: [id number] ; Contributor System: PowerChart ; Last Updated: 04/18/2019 6:30 EDT ; Life Cycle Date: 04/18/2019 ; Life Cycle Status: Active ; Vocabulary: SNOMED CT Peripheral neuropathy (SNOMED CT :402532056 ) Name of Problem: Peripheral neuropathy ; Recorder: Yi Hardy Rn; Confirmation: Confirmed ; Classification: Medical ; Code: 050939959 ; Contributor System: [employer] ; Last Updated: 04/18/2019 6:32 EDT ; Life Cycle Date: 04/18/2019 ; Life Cycle Status: Active ; Vocabulary: SNOMED CT PTSD (post-traumatic stress disorder) (SNOMED CT :16355527 ) Name of Problem: PTSD (post-traumatic stress disorder) ; Recorder: MARIAN YAO RN; Confirmation: Confirmed ; Classification: Medical ; Code: 31813319 ; Contributor System: [employer] ; Last Updated: 03/29/2015 21:19 EDT ; Life Cycle Date: 03/29/2015 ; Life Cycle Status: Active ; Vocabulary: SNOMED CT Sciatica (SNOMED CT :34436278 ) Name of Problem: Sciatica ; Recorder: TRISH MCMAHON RN; Confirmation: Confirmed ; Classification: Medical ; Code: 48818885 ; Contributor System: [employer] ; Last Updated: 05/24/2015 17:38 EDT ; Life Cycle Date: 05/24/2015 ; Life Cycle Status: Active ; Vocabulary: SNOMED CT Diagnoses(Active) Back pain Date: 11/30/2020 ; Diagnosis Type: Reason For Visit ; Confirmation: Complaint of ; Clinical Dx: Back pain ; Classification: Medical ; Clinical Service: Emergency medicine ; Code: PNED ; Probability: 0 ; Diagnosis Code: [id number] ED Height and Weight Height Source : Stated Height Entry Format : Erin Height, Feet : 5 ft(Converted to: 152 cm, 60 Inch) Height, Inches : 11 Inch(Converted to: 0 ft 11 Inch, 27.94 cm) Clinical Height : 180.34 cm Weight Source, ED : Critical estimated dosing weight Weight Entry Format : Erin Weight, Pounds : 220 lb Clinical Dosing Weight : 100 kg Body Surface Area (BSA) : 2.2 m2 Body Mass Index : 30.7 kg/m2 (HI) [place] Body Weight (IBW) : 70.31 kg Erinn Powell RN - 11/30/2020 16:14 EDT Electronically signed by [facility] Conversion Delicatessen Clerk Cerner at 12/16/2022 10:41 AM CDT documented in this encounter Plan of Treatment Upcoming Encounters Date Type Department Care Team (Late st Contact Info) Description 11/03/2025 12:45 PM EST Office Visit [facility] Pulmonology - [address] [place] [address] Ben Barrios MD [address] [place] [address] documented as of this encounter Visit Diagnoses Not on filedocumented in this encounter Care Teams Academic Director Relationship Specialty Start Date End Date Amie Pena MD [facility] [place] [address] PCP - General Family Medicine 10/31/22 04/08/23 Marvel Grayson MD [address] [place] [address] PCP - General Family Medicine 05/17/23 Marvel Grayson [address] [place] [address] Family Practice 04/09/23 documented as of this encounter
--- OUTSIDE RECORDS SUMMARY | 2025-07-02 14:06 | XMS_ITS | Encounter Summary ---
Author Organization [employer] ([place], [place], [place], [place]) Address [address] [place] [address] Care Team Providers Care Siene Maker Name Role Phone Amie Pena MD Primary Care Provider [phone] Marvel Grayson MD Primary Care Provider [phone] Encounter Details Date Type Department Care Team (Late st Contact Info) Description 09/11/2020 Transcribed Document [facility] Family Medicine [facility] [place] [address] ProviderMik MD [address] [place] [address] Social History Tobacco Use Types Packs/Day Years Used Date Smoking Tobacco: Never Assessed Comments Unknown Sex and Gender Information Value Date Recorded Sex Assigned at Not on file Legal Sex Female 6:09 PM CDT Gender Identity Not on file Sexual Orientation Not on file documented as of this encounter Miscellaneous Notes * Cerner Conversion Note - Historical ProviderMD - 09/11/2020 4:31 PM RETAIL ANALYTICS MANAGER Broset Violence Assessment Entered On: 09/11/2020 16:57 EST Performed On: 09/11/2020 16:53 EST by Yesika Caicedo RN Broset Violence Assessment Broset Violence Checklist of Symptoms : None Broset Violence Symptoms Subtotal : 0 Broset Violence Symptoms Indicator : Low risk (0) Yesika Caicedo RN - 09/11/2020 16:53 EST documented in this encounter Plan of Treatment Upcoming Encounters Date Type Department Care Team (Late st Contact Info) Description 11/03/2025 12:45 PM EST Office Visit [facility] Pulmonology - [address] [place] [id number] Ben Barrios MD [address] [place] [address] documented as of this encounter Visit Diagnoses Not on filedocumented in this encounter Care Teams Siene Maker Relationship Specialty Start Date End Date Amie Pena MD [address] [place], [place] [address] [address] PCP - General Family Medicine 10/31/22 04/08/23 Marvel Grayson MD [facility] [address] PCP - General Family Medicine 05/17/23 Marvel Grayson [address] [place] [address] Family Practice 04/09/23 documented as of this encounter
--- OUTSIDE RECORDS SUMMARY | 2025-07-02 14:06 | XMS_ITS | Encounter Summary ---
Author Organization [employer] ([place], [place], [place], [place]) Address [address] [place] [address] Care Team Providers Care Sole Rounding Machine Operator Name Role Phone Marbella Pena MD Primary Care Provider [phone] Marvel Grayson MD Primary Care Provider [phone] Encounter Details Date Type Department Care Team (Late st Contact Info) Description 11/30/2020 Transcribed Document [facility] [place] Family Medicine [facility] [place] [address] ProviderMik MD [address] [place] [address] Social History Tobacco Use Types Packs/Day Years Used Date Smoking Tobacco: Never Assessed Comments Unknown Sex and Gender Information Value Date Recorded Sex Assigned at Not on file Legal Sex Female 6:09 PM CDT Gender Identity Not on file Sexual Orientation Not on file documented as of this encounter Miscellaneous Notes * Cerner Conversion Note - Mik ProviderMD - 11/30/2020 5:10 PM CDT CHARAN Lowery [address] [place] [address] PRATIK SHABAZZ :1970 Visit Time:11/30/2020 Your Visit Summary Your Care Team Primary Provider: XOCHITL SHIELDS Secondary Provider: Your Diagnosis Back pain Thoracic back pain Medical Information You may obtain a [...] When Within 2 to 3 days Where: [facility] [place] [address]- Business (1) Allergies Levaquin Cymbalta (suicidal) Haldol (Hives) Ultram (Hives) Vraylar (Suicidal thoughts) codeine (Respiratory depression) doxycycline (Vomiting) penicillin (Headache) Immunizations This Visit No Immunizations Found Medications What How Much When Instructions Next Dose acetaminophen-hydrocodone (Lortab 5/ 325 oral tablet) Oral Every 6 Hours acetaminophen-hydrocodone (Joes 7.5 mg-325 mg oral tablet) 1 Tablet(s) Oral Every 4 Hours as needed for as needed for pain Duration: 3 Day(s) Pickup at [facility]/pharmacy #[id number] albuterol (albuterol 2.5 mg/ 3 mL (0.083%) inhalation solution) albuterol-ipratropium (DuoNeb 0.5 mg-2.5 mg/ 3 mL inhalation solution) 3 Milliliter(s) Nebulized Inhalation Every 4 Hours budesonide-formoterol (Symbicort 80 mcg-4.5 mcg/ inh inhalation aerosol) Inhalation Two Times A Day gabapentin (gabapentin 300 mg oral capsule) 1 Capsule(s) Two Times A Day ibuprofen loratadine Every Day tiZANidine Oral Pharmacy Information [facility]/pharmacy #[id number]: [address], [place] [phone] The home medications listed are only as [...] This Visit (last charted value for your 11/30/2020 visit) No Laboratory or Other Results This Visit Education Materials Acute Back Pain, Adult Acute back pain is sudden and usually short-lived. It is often caused by an injury to the muscles and tissues in the back. The injury may result from: ??? A muscle or ligament getting overstretched or torn (strained). Ligaments are tissues that connect bones to each other. Lifting something improperly can cause a back strain. ??? Wear and tear (degeneration) of the spinal disks. Spinal disks are circular tissue that provides cushioning between the bones of the spine (vertebrae). ??? Twisting motions, such as while playing sports or doing yard work. ??? A hit to the back. ??? Arthritis. You may have a physical exam, lab tests, and imaging tests to find the cause of your pain. Acute back pain usually goes away with rest and home care. Follow these instructions at home: Managing pain, stiffness, and swelling ??? Take pgvw-maf-bfnrnyi and prescription medicines only as told by your health care provider. ??? Your health care provider may recommend applying ice during the first 24???48 hours after your pain starts. To do this: ? Put ice in a plastic bag. ? Place a towel between your skin and the bag. ? Leave the ice on for 20 minutes, 2???3 times a day. ??? If directed, apply heat to the affected area as often as told by your health [...] to feel pain, heat, or cold. You have a greater risk of getting burned. Activity ??? Do not stay in bed. Staying in bed for more than 1???2 days can delay your recovery. ??? Sit up and stand up straight. Avoid leaning forward when you sit, or hunching over when you stand. ? If you work at a desk, sit close to it so you do not need to lean over. Keep your chin tucked in. Keep your neck drawn back, and keep your elbows bent at a right angle. Your arms should look like the letter L. ? Sit high and close to the steering wheel when you drive. Add lower back (lumbar) support to your car seat, if needed. ??? Take short walks on even surfaces as soon as you are able. Try to increase the length of time you walk each day. ??? Do not sit, drive, or lead refinery supervisor one place for more than 30 minutes at a time. Sitting or standing for long periods of time can put stress on your back. ??? Do not drive or use heavy machinery while taking prescription pain medicine. ??? Use proper lifting techniques. When you bend and lift, use positions that put less stress on your back: ? Bend your knees. ? Keep the load close to your body. ? Avoid twisting. ??? Exercise regularly as told by your health care provider. Exercising helps your back heal faster and helps prevent back injuries by keeping muscles strong and flexible. ??? Work with a physical therapist to make a safe exercise program, as recommended by your health care provider. Do any exercises as told by your physical therapist. Lifestyle ??? Maintain a healthy weight. Extra weight puts stress on your back and makes it difficult to have good posture. ??? Avoid activities or situations that make you feel anxious or stressed. Stress and anxiety increase muscle tension and can make back pain worse. Learn ways to manage anxiety and stress, such as through exercise. General instructions ??? Sleep on a firm mattress in a comfortable position. Try lying on your side with your knees slightly bent. If you lie on your back, put a pillow under your knees. ??? Follow your treatment plan as told by your health care provider. This may include: ? Cognitive or behavioral therapy. ? Acupuncture or massage therapy. ? Meditation or yoga. Contact a health care provider if: ??? You have pain that is not relieved with rest or medicine. ??? You have increasing pain going down into your legs or buttocks. ??? Your pain does not improve after 2 weeks. ??? You have pain at night. ??? You lose weight without trying. ??? You have a fever or chills. Get help right away if: ??? You develop new bowel or bladder control problems. ??? You have unusual weakness or numbness in your arms or legs. ??? You develop nausea or vomiting. ??? You develop abdominal pain. ??? You feel faint. Summary ??? Acute back pain is sudden and usually short-lived. ??? Use proper lifting techniques. When you bend and lift, use positions that put less stress on your back. ??? Take wesq-ozb-egbfmfd and prescription medicines and apply heat or ice as directed by your health care provider. This information is not intended to replace advice given to you by your health care provider. Make sure you discuss any questions you have with your health care provider. Document Revised: 12/09/2019 Document Reviewed: 04/03/2018 Elsevier Patient Education ?? 2020 [employer] Emergency Awareness and Preventative Care STROKE is [...] Assistance with quitting is available by contacting 2-728-FAWM-NOW. This is a free resource providing counseling, support, and referral. Or you may contact your personal physician. [employer] Suicide Prevention Lifeline: The National Suicide Prevention [...] CPR? There are two easy steps: Call 9-1-1 if you see a teen or adult [...] emergency, radiology, or pathology physicians. Patient Name:PRATIK SAHBAZZ I have received this information and was given the opportunity to ask questions. Patient/Bottle Feeder Name: Patient/Bottle Feeder Signature: Relationship to Patient: Clinician/Hospital Bottle Feeder Signature: Please Provide a Telephone Number Where You Can Be Reached: Is it Permissible To Leave a Message? Date: documented in this encounter Plan of Treatment Upcoming Encounters Date Type Department Care Team (Late st Contact Info) Description 11/03/2025 12:45 PM EST Office Visit [facility] Pulmonology - [address] [place] [address] Ben Barrios MD [address] [place] [address] documented as of this encounter Visit Diagnoses Not on filedocumented in this encounter Care Teams Sole Rounding Machine Operator Relationship Specialty Start Date End Date Marbella Pena MD [facility] [address] PCP - General Family Medicine 10/31/22 04/08/23 Marvel Grayson MD [address] [place] [address] PCP - General Family Medicine 05/17/23 Marvel Grayson [address] [place], [place] [id number] Family Practice 04/09/23 documented as of this encounter
--- OUTSIDE RECORDS SUMMARY | 2025-07-02 14:06 | XMS_ITS | Encounter Summary ---
Author Organization [employer] ([place], [place], [place], [place]) Address [address] [place] [address] Care Team Providers Care Software Engineer Backend Name Role Phone Marvel Grayson MD Primary Care Provider [phone] Reason for Visit * Reason Comments Medication Refill Encounter Details Date Type Department Care Team (Late st Contact Info) Description 10/31/2023 Refill [facility] Pulmonology - [address] [place] [address] Mickie Muniz, VIVIAN [address] [place] [address] Chronic obstructive pulmonary disease, unspecified COPD type [...] Date Thanh rded Speak language other than Bahraini at home Not on file 09/21/2023 Want [...] 11/03/2025 12:45 PM EST Office Visit [facility] Pulmonology - [address] [place] [address] Ben Barrios MD [address] [place] [address] documented as of this encounter Visit Diagnoses Diagnosis Chronic obstructive pulmonary disease, unspecified COPD type (HCC) documented in this encounter Care Teams Software Engineer Backend Relationship Specialty Start Date End Date Marvel Grayson MD PCP - General Family Medicine 05/17/23 Marvel Grayson [address] [place] [address] Family Practice 04/09/23 documented as of this encounter
--- OUTSIDE RECORDS SUMMARY | 2025-07-02 14:06 | XMS_ITS | Encounter Summary ---
Author Organization [employer] ([place], [place], [place], [place]) Address [address] [place] [address] Care Team Providers Care Subcontract Administrator Name Role Phone Marbella Pena MD Primary Care Provider [phone] Marvel Grayson MD Primary Care Provider [phone] Encounter Details Date Type Department Care Team (Late st Contact Info) Description 11/30/2020 Transcribed Document [facility] Family Medicine [address] [place] [address] ProviderMik MD [address] [place] [address] Social History Tobacco Use Types Packs/Day Years Used Date Smoking Tobacco: Never Assessed Comments Unknown Sex and Gender Information Value Date Recorded Sex Assigned at Not on file Legal Sex Female 6:09 PM CDT Gender Identity Not on file Sexual Orientation Not on file documented as of this encounter Miscellaneous Notes * Cerner Conversion Note - Historical ProviderMD - 11/30/2020 4:35 PM CDT Patient: PRATIK SHABAZZ Age: 50 years Sex: Female : 1970 Associated Diagnoses: Thoracic back pain Author: XOCHITL SHIELDS PA Basic Information Time seen: Immediately upon arrival. History source: Patient. Arrival mode: Private vehicle. History limitation: None. Additional information: Chief Complaint from Nursing Triage Note : Chief Complaint 11/30/2020 16:14 EDT Chief Complaint pt c/o back pain between shoulder blades since late last night, pt states has chronic back pain and is scheduled for pain management December 06 . History of Present Illness The patient presents with thoracic pain. The onset was 1 days ago. The course/duration of symptoms is constant. The character of symptoms is achy. Therapy today: prescription medications including Tizanidine, ibuprofen. Associated symptoms: denies bowel dysfunction, denies bladder dysfunction, denies focal weakness and denies fever. Additional history: Patient complains of diffuse thoracic pain between her shoulder blades. She denies any recent injury. She states that it may be related to chronic cough secondary to COPD. She states that she is scheduled to see pain management on December 06 regarding chronic lumbar pain.. Review of Systems Constitutional symptoms: Negative except [...] HPI. Health Status Allergies: Allergic Reactions (Selected) Low Levaquin- No reactions were documented. Severity Not Documented Cymbalta- Suicidal. Doxycycline- Vomiting. Haldol- Hives. Penicillin- Headache. Ultram- Hives. Vraylar- Suicidal thoughts. Nonallergic Reactions (Selected) Severity Not Documented Codeine- Respiratory depression.. Medications: (Selected) Documented Medications Documented DuoNeb 0.5 mg-2.5 mg/3 mL inhalation solution: 3 mL, Nebulized Inhalation, RT_Q4H, 0 Refill(s) Lortab 5/325 oral tablet: Tab, Oral, Q6H, 0 Refill(s) Symbicort 80 mcg-4.5 mcg/inh inhalation aerosol: Puff, Inhalation, BID, 0 Refill(s) albuterol 2.5 mg/3 mL (0.083%) inhalation solution: 0 Refill(s) gabapentin 300 mg oral capsule: 1 Cap, BID, 0 Refill(s) ibuprofen: 0 Refill(s) loratadine: Daily, 0 Refill(s) tiZANidine: Oral, 0 Refill(s). Past Medical/ Family/ Social History Medical history Reviewed as documented in chart. Surgical history: BTL / uterine ablation in the month of 02/2014 at 43 Years. D&C (sp Ab) in the month of 12/2013 at 43 Years. removal fatty tumor left upper back in 2010 at 40 Years. Removal of ovarian cyst (SNOMED CT [id number]). I&D to left finger. Hysterectomy (SNOMED CT [id number]).. Family history: No family history items have [...] Tobacco Use 30 Packs/Tins Daily 1 . Problem list: Active Problems (14) Arthritis Asthma Back pain COPD (chronic obstructive pulmonary disease) COPD exacerbation Fibromyalgia H/O: hysterectomy heart burn Irritable bowel syndrome Migraine Peripheral neuropathy PTSD (post-traumatic stress disorder) Sciatica Suicide risk . Physical Examination Vital Signs Vital Signs/Vital Measures 11/30/2020 16:14 EDT Systolic Blood Pressure 155 mmHg HI Diastolic Blood Pressure 95 mmHg HI Temperature Source Oral Temperature Mode Fahrenheit Temperature, Fahrenheit 98.5 Deg F Clinical Temperature, C 36.9 Deg C Peripheral Pulse Rate 88 bpm Respiratory Rate 18 Breaths/Min Oxygen Saturation 97 % Oxygen Therapy Mode Room air . Measurements 11/30/2020 16:14 EDT Height Source Stated Height Entry Format Carriere Height/Length, MARSHALLESE (ft) 5 ft Height/Length MARSHALLESE 11 Inch CLINICALHEIGHT 180.34 cm [place] Body Weight 70.31 kg Weight Source, ED Critical estimated dosing weight Weight Entry Format Carriere Weight Tajik lb 220 lb CLINICALWEIGHT 100 kg Body Surface Area (BSA) 2.2 m2 Body Mass Index 30.7 kg/m2 HI . Oxygen Saturation 11/30/2020 16:14 EDT Oxygen Saturation 97 % . General: Alert, no acute distress. Skin: Warm, dry. Neck: Supple, no tenderness. Cardiovascular: Regular rate and rhythm. Respiratory: Lungs are clear to auscultation, respirations are non-labored, breath sounds are equal, Symmetrical chest wall expansion. Back: Normal alignment, no step-offs, Thoracic: Diffuse, tenderness, no swelling, no vertebral point tenderness. Neurological: Alert and oriented to person, place, time, and situation. Psychiatric: Cooperative. Medical Decision Making Differential Diagnosis: Chronic back pain, thoracic strain. Documents reviewed: Emergency department nurses' notes. Radiology results: X-ray, 2 view chest, emergency physician interpretation: No infiltrate, degenerative changes to thoracic spine, no fracture, reviewed by Dr Davidson. Notes: ERIC ([place] All Schedule Prescription Electronic Reporting) query complete. Treatment plan to include limited course of prescribed OCCS. Risks (including addiction, benefits, and alternatives) presented to patient. #[id number]. Impression and Plan Diagnosis Thoracic back pain - Discharge, Emergency medicine, Medical Plan Condition: Stable. Disposition: Medically cleared, Discharged Admit/Transfer/Discharge: Discharge (Order): Start: 11/30/2020 16:57 EDT, Discharge to: Home. Prescriptions: Launch Meds List (Selected) Prescriptions Prescribed [place] 7.5 mg-325 mg oral tablet: 1 Tab, Oral, Q4H, for 3 Day(s), PRN: as needed for pain, 12 Tab, 0 Refill(s). Patient was given the following educational materials: Acute Back Pain, Adult. Follow up with: MARBELLA PENA Within 2 to 3 days. Counseled: Patient, Regarding diagnosis, Regarding diagnostic results, Regarding treatment plan, Regarding prescription, Patient indicated understanding of instructions. Notes: I certify that the MLP/FOOD AND BEVERAGE ASSISTANT performed the services as delegated. I agree with the assessment, treatment plan and disposition of the patient as recorded by the MLP.. Electronically signed by Karthikeyan Bean Conversion Aircraft Maintenance Technician Cerner at 12/16/2022 10:45 AM CDT documented in this encounter Plan of Treatment Upcoming Encounters Date Type Department Care Team (Late st Contact Info) Description 11/03/2025 12:45 PM EST Office Visit [facility] Pulmonology - [address] [place] [id number] Ben Barrios MD [address] [place] [address] documented as of this encounter Visit Diagnoses Not on filedocumented in this encounter Care Teams Subcontract Administrator Relationship Specialty Start Date End Date Marbella Pena MD [address] [place] [address] [place] [address] PCP - General Family Medicine 10/31/22 04/08/23 Marvel Grayson MD [address] [place] [address] [place] [address] PCP - General Family Medicine 05/17/23 Marvel Grayson [address] [place], [place] [id number] Family Practice 04/09/23 documented as of this encounter
--- OUTSIDE RECORDS SUMMARY | 2025-07-02 14:06 | XMS_ITS | Encounter Summary ---
Author Organization [employer] ([place], [place], [place], [place]) Address [address] [place] [address] Care Team Providers Care Painter Apprentice Name Role Phone Amie Pena MD Primary Care Provider [phone] Marvel Grayson MD Primary Care Provider [phone] Encounter Details Date Type Department Care Team (Late st Contact Info) Description 11/30/2020 Transcribed Document [facility] Family [place] [facility] [place] [address] ProviderMik MD [address] [place] [address] Social History Tobacco Use Types Packs/Day [...] ProviderMD - 11/30/2020 4:11 PM CDT ED Assessment Entered On: 11/30/2020 16:22 EDT Performed On: 11/30/2020 16:21 EDT by Erinn Powell RN ED Quick Look Assessment Level of Consciousness : Alert, Awake Affect/Behavior : Appropriate, Calm, Cooperative Orientation : Oriented x 4 Skin Temperature : Warm Skin Description : Dry Erinn Powell RN - 11/30/2020 16:21 EDT ED General-Functional Assess Information Obtained From : Patient Preferred Communication Mode : Verbal Communication Barrier : None Primary Language : Maldivian Any Spiritual/Cultural Needs or Requests : No Currently in Unsafe Situation : No Erinn Powell RN - 11/30/2020 16:21 EDT Social Habits Smoking Status : 10 or more cigarettes (1/2 pack or more)/day in last 30 days Smokeless Tobacco Status : Never Desires Tobacco Cessation Medication : No Reason for No Tobacco Cessation Medication : ED/procedural patient only Desires Tobacco Cessation Calc : 1 Erinn Powell RN - 11/30/2020 16:21 EDT Social History (As Of: 11/30/2020 16:22:56 EDT) Tobacco: Use in Last 12 Months: Cigarettes. Smoking Status Current every day smoker. Years of Use: 30. Packs/Tins Daily: 1. (Last Updated: 03/29/2015 21:16:03 EDT by MARIAN YAO, RN) Alcohol: Alcohol Use History No. (Last Updated: 04/11/2019 13:17:27 EDT by ALLA ZAPATA, RN) Substance Abuse: Drug Use Hx: No. (Last Updated: 04/11/2019 13:17:27 EDT by ALLA ZAPATA, RN) Nutrition/Health: Caffeine intake amount: pot of coffee daily. (Last Updated: 02/13/2014 15:40:18 EDT by LASHANDA WEBER, RICKEY) Home/Environment: Lives with Significant other. (Last Updated: 07/19/2016 17:26:14 EST by PANCHO SAEED, RN) Musculoskeletal Musculoskeletal Assessment Comment : pain between shoulder blades and neck stiffness since last night, pt states has chronic back pain Erinn Powell RN - 11/30/2020 16:21 EDT documented in this encounter Plan of Treatment Upcoming Encounters Date Type Department Care Team (Late st Contact Info) Description 11/03/2025 12:45 PM EST Office Visit [facility] Pulmonology - [address] [place] [address] Ben Barrios MD [address] [place] [address] documented as of this encounter Visit Diagnoses Not on filedocumented in this encounter Care Teams Painter Apprentice Relationship Specialty Start Date End Date Amie Pena MD [address] [place] [address] PCP - General Family Medicine 10/31/22 04/08/23 Marvel Grayson MD [address] [place] [address] PCP - General Family Medicine 05/17/23 Marvel Grayson [address] [place] [address] Family Practice 04/09/23 documented as of this encounter
--- OUTSIDE RECORDS SUMMARY | 2025-07-02 14:06 | XMS_ITS | Encounter Summary ---
Author Organization [employer] ([place], [place], [place], [place]) Address [address] [place] [address] Care Team Providers Care Mortar Maker Name Role Phone Amie Pena MD Primary Care Provider [phone] Marvel Grayson MD Primary Care Provider [phone] Encounter Details Date Type Department Care Team (Late st Contact Info) Description 11/30/2020 Transcribed Document [facility] Family [place] [address] ProviderMik MD [address] [place] [address] Social History Tobacco Use Types Packs/Day [...] Historical ProviderMD - 11/30/2020 4:11 PM CDT [place] Suicide Severity Rating Scale (C-SSRS) Entered On: 11/30/2020 16:17 EDT Performed On: 11/30/2020 16:17 EDT by Erinn Powell RN [place] Suicide Severity Rating Scale (C-SSRS) CSSRS Past Month Wish to be : No CSSRS Past Month Suicidal Thoughts : No CSSRS Lifetime Suicide Behavior : Yes YES, was this within the past 3 months? : No Suicide Severity Rating Score : 3 Suicide Severity Rating : Moderate Erinn Powell RN - 11/30/2020 16:17 EDT documented in this encounter Plan of Treatment Upcoming Encounters Date Type Department Care Team (Late st Contact Info) Description 11/03/2025 12:45 PM EST Office Visit [facility] Pulmonology - [address] [place] [address] Ben Barrios MD [address] [place] [address] documented as of this encounter Visit Diagnoses Not on filedocumented in this encounter Care Teams Mortar Maker Relationship Specialty Start Date End Date Amie Pena MD [address] [place] [address] PCP - General Family Medicine 10/31/22 04/08/23 Marvel Grayson MD [address] [place] [address] PCP - General Family Medicine 05/17/23 Marvel Grayson [address] [place] [address] Family Practice 04/09/23 documented as of this encounter
--- OUTSIDE RECORDS SUMMARY | 2025-07-02 14:06 | XMS_ITS | Encounter Summary ---
Author Organization [employer] ([place], [place], [place], [place]) Address [address] [place] [address] Care Team Providers Care Insurance Commissioner Name Role Phone Marbella Pena MD Primary Care Provider [phone] Marvel Grayson MD Primary Care Provider [phone] Encounter Details Date Type Department Care Team (Late st Contact Info) Description 09/11/2020 Transcribed Document [facility] Family Medicine [address] [place] [address] ProviderMik MD [address] [place] [address] Social History Tobacco Use Types Packs/Day Years Used Date Smoking Tobacco: Never Assessed Comments Unknown Sex and Gender Information Value Date Recorded Sex Assigned at Not on file Legal Sex Female 6:09 PM CDT Gender Identity Not on file Sexual Orientation Not on file documented as of this encounter Miscellaneous Notes * Cerner Conversion Note - Mik ProviderMD - 09/11/2020 5:33 PM TIMBER FRAMER HELPER Kallie Lowery [address] [place] [address] PRATIK SHABAZZ :1970 Visit Time:09/11/2020 Your Visit Summary Your Care Team Primary Provider: JUAN MEZA MD-EMR Secondary Provider: Your Diagnosis Back pain Exacerbation of chronic back pain Medical Information You may obtain [...] Follow Up with [facility] When Within 3 to 5 days Where: [address] [place] [address] [address] [place] [address]- Business (1) Follow Up with MARBELLA PENA When Within 2 to 3 days Where: [address] [place] [address]- Business (1) Follow Up with Follow up with primary care provider When Within 2 to 3 days Allergies Levaquin Cymbalta (suicidal) Haldol (Hives) Ultram (Hives) Vraylar (Suicidal thoughts) codeine (Respiratory depression) doxycycline (Vomiting) penicillin (Headache) Immunizations This Visit No Immunizations Found Medications What How Much When Instructions Next Dose acetaminophen-oxyCODONE (Percocet 5/ 325 oral tablet) 1 Tablet(s) Oral Every 4 Hours as needed for for pain Pickup at [facility]pharmacy #[id number] acetaminophen-hydrocodone (Lortab 5/ 325 oral tablet) Oral Every 6 Hours albuterol (albuterol 2.5 mg/ 3 mL (0.083%) inhalation solution) albuterol-ipratropium (DuoNeb 0.5 mg-2.5 mg/ 3 mL inhalation solution) 3 Milliliter(s) Nebulized Inhalation Every 4 Hours gabapentin (gabapentin 300 mg oral capsule) 1 Capsule(s) Two Times A Day Pharmacy Information [facility]/pharmacy #[id number]: [address], [place] [id number] [phone] The home medications listed are only as [...] This Visit (last charted value for your 09/11/2020 visit) No Laboratory or Other Results This [...] as you can. Do not try to crab picker a heavy object that is far [...] on shelves at waist level, and put bookmobile driver objects on lower or higher shelves. ??? [...] 09/27/2005 Document Revised: 10/05/2018 Document Reviewed: 10/05/2018 [employer] Patient Education ?? 2020 [employer]. Chronic Back Pain When back pain lasts longer than 3 months, it is called chronic back pain. The cause of your back pain may not be known. Some common causes include: ??? Wear and tear (degenerative disease) of the bones, ligaments, or disks in your back. ??? Inflammation and stiffness in your back (arthritis). People who have chronic back pain often go through certain periods in which the pain is more intense (flare-ups). Many people can learn to manage the pain with home care. Follow these instructions at home: Pay attention to any changes in your symptoms. Take these actions to help with your pain: Activity ??? Avoid bending and other activities that make the problem worse. ??? Maintain a proper position when standing or sitting: ? When standing, keep your upper back and neck straight, with your shoulders pulled back. Avoid slouching. ? When sitting, keep your back straight and relax your shoulders. Do not round your shoulders or pull them backward. ??? Do not sit or coating mixer supervisor one place for long periods of time. ??? Take brief periods of rest throughout the day. This will reduce your pain. Resting in a lying or standing position is usually better than sitting to rest. ??? When you are resting for longer periods, mix in some mild activity or stretching between periods of rest. This will help to prevent stiffness and pain. ??? Get regular exercise. Ask your health care provider what activities are safe for you. ??? Do not lift anything that is heavier than 10 lb (4.5 kg). Always use proper lifting technique, which includes: ? Bending your knees. ? Keeping the load close to your body. ? Avoiding twisting. ??? Sleep on a firm mattress in a comfortable position. Try lying on your side with your knees slightly bent. If you lie on your back, put a pillow under your knees. Managing pain ??? If directed, apply ice to the painful area. Your health care provider may recommend applying ice during the first 24???48 hours after a flare-up begins. ? Put ice in a plastic bag. ? Place a towel between your skin and the bag. ? Leave the ice on for 20 minutes, 2???3 times per day. ??? If directed, apply heat to [...] have a greater risk of getting burned. ??? Try soaking in a warm tub. ??? Take rbph-zpb-ffoslkv and prescription medicines only as told by your health care provider. ??? Keep all follow-up visits as told by your health care provider. This is important. Contact a health care provider if: ??? You have pain that is not relieved with rest or medicine. Get help right away if: ??? You have weakness or numbness in one or both of your legs or feet. ??? You have trouble controlling your bladder or your bowels. ??? You have nausea or vomiting. ??? You have pain in your abdomen. ??? You have shortness of breath or you faint. This information is not intended to replace advice given to you by your health care provider. Make sure you discuss any questions you have with your health care provider. Document Released: 09/27/2005 Document Revised: 12/11/2019 Document Reviewed: 02/27/2018 Elsevier Patient Education ?? 2020 [employer] Chronic Back Pain When back pain lasts longer than 3 months, it is called chronic back pain. Pain may get worse at certain times (flare-ups). There are things you can do at home to manage your pain. Follow these instructions at home: Activity ??? Avoid bending and other activities that make pain worse. ??? When standing: ? Keep your upper back and neck straight. ? Keep your shoulders pulled back. ? Avoid slouching. ??? When sitting: ? Keep your back straight. ? Relax your shoulders. Do not round your shoulders or pull them backward. ??? Do not sit or coating mixer supervisor one place for long periods of time. ??? Take short rest breaks during the day. Lying down or standing is usually better than sitting. Resting can help relieve pain. ??? When sitting or lying down for a long time, do some mild activity or stretching. This will help to prevent stiffness and pain. ??? Get regular exercise. Ask your doctor what activities are safe for you. ??? Do not lift anything that is heavier than 10 lb (4.5 kg). To prevent injury when you lift things: ? Bend your knees. ? Keep the weight close to your body. ? Avoid twisting. Managing pain ??? If told, put ice on the painful area. Your doctor may tell you to use ice for 24???48 hours after a flare-up starts. ? Put ice in a plastic bag. ? Place a towel between your skin and the bag. ? Leave the ice on for 20 minutes, 2???3 times a day. ??? If told, put heat on the painful area as often as told by your doctor. Use the heat source that your doctor recommends, such as a moist heat pack or a heating pad. ? Place a towel between your skin and the heat source. ? Leave the heat on for 20???30 minutes. ? Remove the heat if your skin turns bright red. This is especially important if you are unable to feel pain, heat, or cold. You may have a greater risk of getting burned. ??? Soak in a warm bath. This can help relieve pain. ??? Take mxna-ovg-muzuwic and prescription medicines only as told by your doctor. General instructions ??? Sleep on a firm mattress. Try lying on your side with your knees slightly bent. If you lie on your back, put a pillow under your knees. ??? Keep all follow-up visits as told by your doctor. This is important. Contact a doctor if: ??? You have pain that does not get better with rest or medicine. Get help right away if: ??? One or both of your arms or legs feel weak. ??? One or both of your arms or legs lose feeling (numbness). ??? You have trouble controlling when you poop (bowel movement) or pee (urinate). ??? You feel sick to your stomach (nauseous). ??? You throw up (vomit). ??? You have belly (abdominal) pain. ??? You have shortness of breath. ??? You pass out (faint). Summary ??? When back pain lasts longer than 3 months, it is called chronic back pain. ??? Pain may get worse at certain times (flare-ups). ??? Use ice and heat as told by your doctor. Your doctor may tell you to use ice after flare-ups. This information is not intended to replace advice given to you by your health care provider. Make sure you discuss any questions you have with your health care provider. Document Released: 02/05/2009 Document Revised: 12/11/2019 Document Reviewed: 04/04/2018 [employer] Patient Education ?? 2020 [employer] Emergency Awareness and Preventative Care STROKE [...] Assistance with quitting is available by contacting 8-982-QYLN-NOW. This is a free resource providing counseling, [...] was given the opportunity to ask questions. Patient/Crown Ironer Name: Patient/Crown Ironer Signature: Relationship to Patient: Clinician/Hospital Crown Ironer Signature: Please Provide a Telephone Number Where You Can Be Reached: Is it Permissible To Leave a Message? Date: Electronically signed by [place], [facility] Conversion Ag Service Manager Cerner at 12/16/2022 10:37 AM CDT documented in this encounter Plan of Treatment Upcoming Encounters Date Type Department Care Team (Late st Contact Info) Description 11/03/2025 12:45 PM EST Office Visit [facility] Pulmonology - [address] [place] [address] Ben Barrios MD [address] [place] [address] documented as of this encounter Visit Diagnoses Not on filedocumented in this encounter Care Teams Insurance Commissioner Relationship Specialty Start Date End Date Marbella Pena MD [address] [place] [address] [place] [address] PCP - General Family Medicine 10/31/22 04/08/23 Marvel Grayson MD [address] [place] [address] [place] [address] PCP - General Family Medicine 05/17/23 Marvel Grayson [address] [place] [address] Family Practice 04/09/23 documented as of this encounter
--- OUTSIDE RECORDS SUMMARY | 2025-07-02 14:06 | XMS_ITS | Encounter Summary ---
Author Organization [employer] ([place], [place], [place], [place]) Address [address] [place] [address] Care Team Providers Care Animal Handler Name Role Phone Amie Pena MD Primary Care Provider [phone] Marvel Grayson MD Primary Care Provider [phone] Encounter Details Date Type Department Care Team (Late st Contact Info) Description 04/14/2019 Transcribed Document [facility] [place] [address] [place] [address] ProviderMik MD [address] [place] [address] Social History Tobacco Use Types Packs/Day Years Used Date Smoking Tobacco: Never Assessed Comments Unknown Sex and Gender Information Value Date Recorded Sex Assigned at Not on file Legal Sex Female 6:09 PM CDT Gender Identity Not on file Sexual Orientation Not on file documented as of this encounter Miscellaneous Notes * Cerner Conversion Note - Historical ProviderMD - 04/14/2019 10:19 PM CDT documented in this encounter Plan of Treatment Upcoming Encounters Date Type Department Care Team (Late st Contact Info) Description 11/03/2025 12:45 PM EST Office Visit [facility] Pulmonology - [address] [place] [id number] Ben Barrios MD [address] [place] [address] documented as of this encounter Visit Diagnoses Not on filedocumented in this encounter Care Teams Animal Handler Relationship Specialty Start Date End Date Amie Pena MD [address] [place] [address] PCP - General Family Medicine 10/31/22 04/08/23 Marvel Grayson MD [address] [place] [address] PCP - General Family Medicine 05/17/23 Marvel Grayson [address] [place] [address] Family Practice 04/09/23 documented as of this encounter
--- OUTSIDE RECORDS SUMMARY | 2025-07-02 14:06 | XMS_ITS | Encounter Summary ---
Author Organization [employer] ([place], [place], [place], [place]) Address [address] [place] [address] Care Team Providers Care Culinary Worker Name Role Phone Amie Pena MD Primary Care Provider [phone] Marvel Grayson MD Primary Care Provider [phone] Encounter Details Date Type Department Care Team (Late st Contact Info) Description 04/11/2019 Transcribed Document [facility] [place] [address] [place] [address] ProviderMik MD [address] [place] [address] Social History Tobacco Use Types Packs/Day Years Used Date Smoking Tobacco: Never Assessed Comments Unknown Sex and Gender Information Value Date Recorded Sex Assigned at Not on file Legal Sex Female 6:09 PM CDT Gender Identity Not on file Sexual Orientation Not on file documented as of this encounter Miscellaneous Notes * Cerner Conversion Note - Historical ProviderMD - 04/11/2019 10:09 AM CDT Patient: PRATIK SHABAZZ Age: 48 Years Sex: Female : 1970 Chief Complaint Low Back Pain Primary Care Provider None History of Present Illness This patient is a pleasant 48 yo WF who presents with low back pain. The pain has been going on for 4 years but has gotten progressively worse. She describes it as a sharp pain. It is now to the point that it is affecting her ADLs. She has tried NSAIDs, injections, and PT without relief of her pain. She has not fallen. She has not used an assistive device. She saw Dr Herrera who evaluated her and she was offered a L5/S1 Lumbar Posterior Fusion Decompression and agreed to the procedure. Pt denies a h/o DVT/PE. No trouble with anesthesia in the past. Pt has a h/o COPD but no DAVID or asthma. Review of Systems Constitutional: Neg for fevers or chills. Eyes: Neg for blurry vision or change in vision. ENT: Neg for sore throat, ear pain, or dizziness. Cardiac: Neg for chest pain or dyspnea on exertion. Respiratory: Neg for shortness of breath. Gastrointestinal: Neg for nausea, vomiting, diarrhea, or constipation. Musculoskeletal: Pos for low back pain. Neurologic: Neg for headaches or seizures. Psychiatric: Neg for anxiety and depression. Integumentary: Neg for rash. Vital Signs Oxygen Settings (Last) Oxygen Therapy Mode: Room air (04/11/19 13:19:00) Physical Exam Constitutional: This is a pleasant 48 yo WF in no acute distress. HEENT: Normocephalic, atraumatic. PEERLA. Extraocular muscles intact. Conjunctiva pink without exudate. Oropharynx pink and moist. Neck supple. No JVD. Cardiac: SI, S2. RRR. No M/R/G. Respiratory: Lungs CTA bilaterally. No wheezes, rales, or rhonchi. Abdomen: Soft, nontender, nondistended. Active bowel sounds. No visible masses. Musculoskeletal: Bilateral LE without clubbing, cyanosis or edema. Integumentary: Skin is pink, warm and dry. No rashes. Neurologic: CN II-XII grossly intact. Psychiatric: Judgment and affect appropriate. Assessment/Plan 1. Preoperative Evaluation- Pt underwent preoperative laboratory workup and diagnostic studies. 2. Low Back Pain- Proceed with surgery as scheduled with Dr Herrera on 04/18/2019. 3. COPD- Nebs/Inhalers. Problem List/Past Medical History Ongoing Arthritis Asthma Back pain COPD (chronic obstructive pulmonary disease) Fibromyalgia H/O: hysterectomy heart burn PTSD (post-traumatic stress disorder) Sciatica Procedure/Surgical History BTL / uterine ablation (02/2014), D&C (sp Ab) (12/2013), removal fatty tumor left upper back (2010), Hysterectomy, I&D to left finger, Removal of ovarian cyst. Home Medications (7) Active albuterol continuous neb 2.5 mg, Inhalation, At Bedtime Breo Ellipta 1 Puff, Inhalation, Daily gabapentin 300 mg oral capsule 300 mg = 1 Cap, Oral, TID ibuprofen 100 mg oral tablet 200 mg = 2 Tab, PRN, Oral, Q6H [place] 5 mg-325 mg oral tablet 1 Tab, Oral, BID Spiriva Respimat 2.5 mcg/inh inhalation aerosol 2 Puff, Inhalation, At Bedtime Ventolin HFA 90 mcg/inh inhalation aerosol 2 Puff, Inhalation, QID Allergies Cymbalta (suicidal) Haldol (Hives) Ultram (Hives) Vraylar (Suicidal thoughts) codeine (Respiratory depression) doxycycline (Vomiting) penicillin (Headache) Social History Alcohol Alcohol Use History No. Alcohol Use History Yes. Alcohol Use Comment states very rarely. Use in Last 12 Months: No. Home/Environment Lives with Significant other. Nutrition/Health Caffeine intake amount: pot of coffee daily. Substance Abuse Drug Use Hx: No. Drug Use Hx: No. Tobacco 10 or more cigarettes (1/2 pack or more)/day in last 30 days Smoking Status. Never Smokeless Tobacco Status. e-Cigarettes Alternative Nicotine Product Use. 10 or more cigarettes (1/2 pack or more)/day in last 30 days Smoking Status. Use in Last 12 Months: Cigarettes. Smoking Status Current every day smoker. Years of Use: 30. Packs/Tins Daily: 1. Family History Pt mother from a PE at 79. Pt father from Black Lung at 83. Diagnostic Results EKG- NSR, 82 CT chest- stable right lung nodule. F/u one year. Lab Results WBCs- 10.0 Hbg- 13.4 Hct- 41.0 Plts- 344 Glucose- 95 Na- 138 K- 4.0 BUN- 11 Cr- 0.64 GFR- >60 Albumin- 3.6 PT- 10.0 INR- 1.0 UA is neg for nitrites and LE Electronically signed by [place], [facility] Conversion Special Education Math Teacher Cerner at 12/16/2022 10:47 AM CDT documented in this encounter Plan of Treatment Upcoming Encounters Date Type Department Care Team (Late st Contact Info) Description 11/03/2025 12:45 PM EST Office Visit [facility] Pulmonology - [address] [place] [address] Ben Barrios MD [address] [place] [address] documented as of this encounter Visit Diagnoses Not on filedocumented in this encounter Care Teams Culinary Worker Relationship Specialty Start Date End Date Amie Pena MD [address] [place] [address] [place] [address] PCP - General Family Medicine 10/31/22 04/08/23 Marvel Grayson MD [address] [place] [address] [place] [address] PCP - General Family Medicine 05/17/23 Marvel Grayson [address] [place] [address] Family Practice 04/09/23 documented as of this encounter
--- OUTSIDE RECORDS SUMMARY | 2025-07-02 14:06 | XMS_ITS | Encounter Summary ---
Author Organization [employer] ([place], [place], [place], [place]) Address [address] [place] [address] Care Team Providers Care Tugger Operator Name Role Phone Amie Pena MD Primary Care Provider [phone] Marvel Grayson MD Primary Care Provider [phone] Encounter Details Date Type Department Care Team (Late st Contact Info) Description 09/11/2020 Transcribed Document [facility] [place] [address] [place] [address] ProviderMik MD [address] [place] [address] Social History Tobacco Use Types Packs/Day Years Used Date Smoking Tobacco: Never Assessed Comments Unknown Sex and Gender Information Value Date Recorded Sex Assigned at Not on file Legal Sex Female 6:09 PM CDT Gender Identity Not on file Sexual Orientation Not on file documented as of this encounter Miscellaneous Notes * Cerner Conversion Note - Historical ProviderMD - 09/11/2020 4:31 PM LEAD TEACHER ED Assessment Entered On: 09/11/2020 16:57 EST Performed On: 09/11/2020 16:53 EST by Yesika Caicedo RN ED Quick Look Assessment Level of Consciousness : Alert, Awake Orientation : Oriented x 4 Skin Temperature : Warm Skin Description : Normal for ethnicity Yesika Caicedo RN - 09/11/2020 16:53 EST ED General-Functional Assess Preferred Communication Mode : Verbal Communication Barrier : None Primary Language : [place] Any Spiritual/Cultural Needs or Requests : No Currently in Unsafe Situation : No Yesika Caicedo RN - 09/11/2020 16:53 EST Social Habits Smoking Status : Never (less than 100 in lifetime; none in last 30 days) Smokeless Tobacco Status : Never Desires Tobacco Cessation Calc : 0 Yesika Caicedo RN - 09/11/2020 16:53 EST Social History (As Of: 09/11/2020 16:57:54 EST) Tobacco: Use in Last 12 Months: [...] by PANCHO SAEED RN) Cardiovascular ASMT, ED Cardiovascular Assessment WDL : Yesika Weinstein RN - 09/11/2020 16:53 EST Respiratory Respiratory Assessment WDL : Yesika Weinstein RN - 09/11/2020 16:53 EST Gastrointestinal ED Gastrointestinal Assessment WDL : Yesika Weinstein RN - 09/11/2020 16:53 EST Genitourinary Assessment, ED Genitourinary Assessment WDL : Yesika Weinstein RN - 09/11/2020 16:53 EST Musculoskeletal Musculoskeletal Assessment WDL : SERGE with exceptions Musculoskeletal Assessment Comment : back pain Yesika Caicedo RN - 09/11/2020 16:53 EST Electronically signed by [place] [facility] Conversion Parts Counter Clerk Cerner at 12/16/2022 10:45 AM CDT documented in this encounter Plan of Treatment Upcoming Encounters Date Type Department Care Team (Late st Contact Info) Description 11/03/2025 12:45 PM EST Office Visit [facility] Pulmonology - [address] [place] [address] Ben Barrios MD [address] [place], [place] [id number] documented as of this encounter Visit Diagnoses Not on filedocumented in this encounter Care Teams Tugger Operator Relationship Specialty Start Date End Date Amie Pena MD [facility] [place] [address] PCP - General Family Medicine 10/31/22 04/08/23 Marvel Grayson MD [address] [place] [address] PCP - General Family Medicine 05/17/23 Marvel Grayson [address] [place] [address] Family Practice 04/09/23 documented as of this encounter
--- OUTSIDE RECORDS SUMMARY | 2025-07-02 14:06 | XMS_ITS | Data Portability ---
Author Organization [facility] - [place] & [place]ALIA Mckeon ADMIN Address [address] [place] [address] Care Team Providers Care Emd Special Education Teacher Name Role Phone WADE GRAYSON Primary Care Provider WADE GRAYSON Referring Provider [phone] Assessment No assessment recorded. Plan of Treatment Reminders Order Date Submit Date Provider Last Modified By Organization Details Last Modified Time Details Appointments OV EST 15 2024 11:00A M MAURICE ZAVALA NP Not available Not available Not available Lab lipid panel, serum 2024 025 [facility] (Lab), [address] [place] [address] [address], [place], [address], 05/26/2025 10:08:49 Referral None recorded. Procedures event monitor placement (PROC) 2023 024 [place] Not available 06/20/2024 14:38:32 Surgeries None recorded. Imaging electroca rdiogram [address] [facility] [id number]-[id number] , [address], [place], [address], Ph [phone] 12/26/2024 14:46:19 US, chris londono, chapis bardales, complete, w/ color flow 2023 024 [facility] Central Scheduling, [address], [place], [address], 04/02/2024 15:17:40 [address]ca [address]diogram [address] [facility] [id number] , [address], [address], [place], [address], Ph [phone] 03/31/2024 08:50:49 Medication Orders metoprolo l tartrate 25 mg tablet 2024 025 [facility], [address] [place] [address], [id number], 12/22/2024 15:42:14 atorvasta tin 40 mg tablet 2024 025 [facility], [address] [place] [address], [id number], 12/22/2024 15:42:14 nitroglyc ana 0.4 mg sublingua l tablet 2024 025 [facility], [address] [place] [address], [id number], 12/22/2024 15:42:14 nitroglyc ana 0.4 mg sublingua l tablet 2023 024 [facility], [address], [place], [address], 03/25/2024 15:10:00 Patient TargetsNo targets recorded. Patient Instructions Encounter Date Encounter Id Patient Instructions Last Modified By Organization Details Last Modified Time 12/22/2024 [id number] smoking cessatio n counseling, greater than 3 minutes up to 10 minutes* [email or web address] Not available 01/05/2025 15:57:02 Reason for Referral None Reported. Results Created Date Observation Date Name Description Value Unit Range Abnormal Flag Note LastModifiedBy Organization Detail LastModifiedTime 03/25/20 24 03/28/2024 elect leticia diogr am No observ ation record ed. [facility] [id number] [address], [place], [address], Ph [id number] 03/31/2024 08:50:49 04/02/20 24 03/31/2024 US, echoc ardio gram, trans thora cic, compl ete, w/ color flow No observ ation record ed. [facility] [address], [place], [address], 04/10/2024 14:58:38 06/20/20 24 06/02/[address] ment (PROC ) No observ ation record ed. [email or web address] Not Available 10:32:13 06/20/[address] (PROC ) No observ ation record ed. [email or web address] Not Available 2023 13:41:07 07/14/20 24 06/02/[address] (PROC ) No observ ation record ed. [email or web address] Not Available 15:13:41 08/12/20 24 03/25/2024 elect rocar diogr am No observ ation record ed. [facility] [id number] [address] [facility] [address] [facility], [place], [address], Ph [phone] 08/12/2024 10:52:32 12/23/1911/20/2024 XR, chest No observ ation record ed. [email or web address] Not Available 14:46:05 12/23/19 25 12/26/2024 elect rocar diogr am No observ ation record ed. [facility] [id number]-[id number] [address], [place], [address], Ph [phone] 12/26/2024 14:46:32 12/27/19 25 12/22/2024 elect rocar diogr am No observ ation record ed. [facility]-1807 [address], [place], [address], Ph [phone] 12/26/2024 14:46:19 Result Notes None recorded. Problems Name Problem SNOMED Code Status Onset Date Resolution Date Notes Provider Name and Address Organization Details Recorded Time Tobacco user 601776433 Active 2023 MAURICE ZAVALA NP [address], [place], [address] , [place] - [facility] - [place] & [place] 4 13:30:55 Chronic obstructive pulmonary disease 34447094 Active 2023 MAURICE ZAVALA NP [address], [place], [address] , [place] - [facility] - [place] & [place] 4 13:31:10 Degeneration of intervertebra l disc 26319373 Active 2023 MAURICE ZAVALA NP [address], [place], [address] , [place] [facility] [place] & [place] 4 13:31:32 Chest pain 80884436 Active 2023 MAURICE ZAVALA NP [address], [place], [address] , [place] [facility] [place] & [place] 4 13:31:49 Migraine 06169285 Active 2023 MAURICE ZAVALA NP [address], [place], [address] , [place] [facility] [place] & [place] 4 13:32:15 Hyperlipidemi a 42550817 Active 2023 MAURICE ZAVALA NP [address], [place], [address] , [place] [facility] [place] & [place] 4 13:39:32 Coronary arteriosclero sis 20290439 Active 2023 MAURICE ZAVALA NP [address], [place], [address] , [place] [facility] [place] & [place] 4 13:39:38 Old myocardial infarction 9493237 Active 2023 MAURICE ZAVALA NP [address], [place], [address] , [place] [facility] [place] & [place] 4 13:39:44 Palpitations 90895092 Active 2024 MAURICE ZAVALA NP [address], [place], [address] , [place] - [facility] - [place] & [place] 5 14:32:35 Dyspnea on exertion 26432997 Active 2024 MAURICE ZAVALA NP [address], [place], [address] , [place] - [facility] - [place] & [place] 5 16:17:21 Problem Notes None recorded. Medical Equipment None Reported. Allergies Allergen ID Allergen Name Allergen Category Reaction Reaction Severity Criticality Documentation Date Start Date Code Code System Note Provider Name and Address Organization Details Recorded Time 117454 pholcodin e Not available Not available Not available Not available 03/25/2024 66145 RxNorm Aura isbell, [place] [facility] - [place] & [place] 4 13:50:13 373789 Haldol medicatio n Not available Not available Not available 03/25/2024 70198 9 RxNorm Aura isbell, [place] - [facility] - [place] & [place] 4 13:50:26 958208 Vraylar medicatio n Not available Not available Not available 03/25/2024 62567 61 RxNorm Aura isbell, [place] - [facility] - [place] & [place] 4 13:50:36 581205 doxycycli ne Not available Not available Not available Not available 03/25/2024 3640 RxNorm Aura isbell, [place] - [facility] - [place] & [place] 4 13:50:46 558903 Cymbalta medicatio n Not available Not available Not available 03/25/2024 67965 4 RxNorm Aura isbell, [place] - [facility] - [place] & [place] 4 13:50:59 189355 capsaicin / menthol / methyl salicylat e medicatio n Not available Not available Not available 03/25/2024 73108 48 RxNorm Aura isbell, [place] - [facility] - [place] & [place] 4 13:51:20 Medications Name Sig Start Date Stop Date Status Note LastModified by Organization Details LastModified Time amoxicillin 500 mg capsule 12/22 completed Not Available Not Available Not Available atorvastati n 40 mg tablet TAKE 1 TABLET BY MOUTH ONCE A DAY active Not Available Not Available No t Available promethazin e-DM 6.25 mg-15 mg/5 mL oral syrup take 5 ML BY MOUTH EVERY 6 HOURS NEEDED FOR cough active Not Available Not Available No t Available atorvastati n 80 mg tablet 04/23 completed Not Available Not Available Not Available ipratropium 0.5 mg-albutero l 3 mg (2.5 mg base)/3 mL nebulizatio n soln INHALE 3 ML (1 VIAL) BY NEBULIZER EVERY 4 HOURS NEEDED FOR SHORTNESS OF BREATH OR WHEEZING 12/22 completed Not Available Not Available Not Available tizanidine 2 mg tablet Take 1 tablet every 6 hours by oral route as needed. active Not Available Not Available No t Available meloxicam 15 mg tablet TAKE 1 TABLET BY MOUTH ONCE A DAY active Not Available Not Available No t Available ondansetron HCl 4 mg tablet TAKE 1 TABLET BY MOUTH EVERY 8 HOURS NEEDED FOR nausea AND vomitting active Not Available Not Available No t Available prednisone 20 mg tablet TAKE 2 TABLETS BY MOUTH ONCE A DAY FOR 5 DAYS 04/23 completed Not Available Not Available Not Available clonazepam 0.5 mg tablet TAKE 1/2 TABLET BY MOUTH TWICE DAILY active Not Available Not Available No t Available topiramate 25 mg tablet TAKE 1 TABLET BY MOUTH AT BEDTIME active Not Available Not Available No t Available sulfamethox azole 800 mg-trimetho prim 160 mg tablet TAKE 1 TABLET BY MOUTH TWICE A DAY FOR 10 DAYS 12/22 completed Not Available Not Available Not Available hydrocodone 10 mg-acetamin ophen 325 mg tablet TAKE 1 TABLET BY MOUTH EVERY 6 HOURS active Not Available Not Available No t Available omeprazole 40 mg capsule,del ayed release Take 1 capsule every day by oral route as needed for 30 days. active Not Available Not Available No t Available hydrocodone 7.5 mg-acetamin ophen 325 mg tablet Take 5 tablets every 6 hours by oral route. 12/22 completed Not Available Not Available Not Available promethazin e 25 mg tablet Take by oral route as needed for 10 days. active Not Available Not Available No t Available nitroglycer in 0.4 mg sublingual tablet DISSOLVE 1 TABLET UNDER THE TONGUE EVERY 5 MINUTES NEEDED FOR CHEST PAIN. DO NOT EXCEED A TOTAL OF 3 DOSES IN 15 MINUTES. active Not Available Not Available No t Available gabapentin 300 mg capsule TAKE 1 CAPSULE BY MOUTH EVERY 6 HOURS active Not Available Not Available No t Available omeprazole 20 mg capsule,del ayed release TAKE 1 TABLET BY MOUTH ONCE A DAY active Not Available Not Available No t Available folic acid 1 mg tablet TAKE 1 TABLET BY MOUTH ONCE A DAY active Not Available Not Available No t Available metoprolol succinate ER 25 mg tablet,exte nded release 24 hr 12/22 completed Not Available Not Available Not Available albuterol sulfate HFA 90 mcg/actuati on aerosol inhaler active Not Available Not Available Not Available ondansetron 4 mg disintegrat ing tablet active PRN Not Available Not Available N ot Available cholecalcif ja (vitamin D3) 125 mcg (5,000 unit) capsule TAKE 1 CAPSULE BY MOUTH ONCE A DAY active Not Available Not Available No t Available loratadine 10 mg tablet TAKE 1 TABLET BY MOUTH ONCE A DAY active Not Available Not Available No t Available doxazosin 2 mg tablet 03/25 completed Not Available Not Available Not Available buspirone 15 mg tablet 04/23 completed Not Available Not Available Not Available Asprin Ec Low Dose 81 mg tablet,rizwana yed release Take 1 tablet every day by oral route. active Not Available Not Available No t Available metoprolol tartrate 25 mg tablet TAKE 1/2 TABLET BY MOUTH 2 TIMES A DAY active Not Available Not Available No t Available varenicline tartrate 1 mg tablet 12/22 completed Not Available Not Available Not Available Movantik 12.5 mg tablet TAKE 1 TABLET BY MOUTH EVERY DAY 12/22 completed Not Available Not Available Not Available Relistor 150 mg tablet 12/22 completed Not Available Not Available Not Available Trelegy Ellipta 100 mcg-62.5 mcg-25 mcg powder for inhalation INHALE 1 PUFF BY MOUTH ONCE A DAY active Not Available Not Available No t Available roflumilast 250 mcg tablet TAKE 1 TABLET BY MOUTH ONCE A DAY active Not Available Not Available No t Available Vitals Date Recorded Body height Body mass index (BMI) Body weight Oxygen saturation Oxygen saturation in Arterial blood by Pulse oximetry Heart rate Systolic And Diastolic Provider Name and Address Organization Details Last Updated DateTime 5 177.8 cm 24 kg/m2 41009.9 3 g 95 % 95 % 80 /min 98/64 mm[Hg] Aura MUSTAFA [facility] & [place] 5 15:10:08 Date Recorded Body height Body mass index (BMI) Body weight Oxygen saturation Oxygen saturation in Arterial blood by Pulse oximetry Heart rate Systolic And Diastolic Provider Name and Address Organization Details Last Updated DateTime 4 177.8 cm 25.4 kg/m2 53289.8 5 g 92 % 92 % 96 /min 96/71 mm[Hg] Aura MUSTAFA [facility] & [place] 4 13:49:43 Date Recorded Body height Body mass index (BMI) Body weight Oxygen saturation Oxygen saturation in Arterial blood by Pulse oximetry Heart rate Systolic And Diastolic Provider Name and Address Organization Details Last Updated DateTime 5 177.8 cm 21.8 kg/m2 23260.0 4 g 96 % 96 % 72 /min 90/60 mm[Hg] Joann Ornelas [facility] & [place] 5 11:00:47 Social History Question Answer Notes LastModified by Organizat ion Details LastModified Time Tobacco Smoking Status Current Every Day Smoker Aura Dukes [facility] & [place] 03/25/2024 13:54:29 What Is Your Level Of Caffeine Consumption? Occasional [email or web address] Information not available 03/25/2024 What Was The Date Of Your Most Recent Tobacco Screening? 04/23/2025 [email or web address] Information not available 04/23/2025 What Is Your Current Pack Years? 10-19packyears [email or web address] Information not available 03/25/2024 How Much Tobacco Do You Smoke? 0.5 PPD [email or web address] Information not available 03/25/2024 Sex: Unknown Functional Status Question Answer Note LastModified by Organization D etails LastModified Time What is your level of alcohol consumption? None [email or web address] Information not available 03/25/2024 Mental Status None recorded. Family History Nothing Reported. Medical History No medical history recorded. Gynecological HistoryNo gynecological history recorded. Obstetrics History GPAL:G 0 P 0 0 0 0 Past Encounters Encounter ID Performer Location Encounter Start Date Encounter Closed Date Diagnosis/Indication Diagnosis SNOMED-CT Code Diagnosis ICD10 Code Diagnosis IMO Codes Diagnosis Note [id number] Tato White MD [address] [facility] [place] [address] 03/25/2024 13:07:00 03/25/2024 14:32:37 Tobacco user 903725525 Z72.0 Complete smoking cessation strongly urged.Risk s associated with smoking including cardiovasc ular affects of NV stroke in addition to high risk of long bladder and other cancers were discussed. Tips and resources provided as noted below We discuss many products that can help you quit smoking. These products include a nicotine patch, gum, lozenge, nasal spray, and inhaler or other prescripti on medication s For more helpful tips and resources, visit:Poornima Lloydgoff[employer]in [facility] [place]' s smoke-free programs at www.GranData.gov 611-22U-QU IT ) Total of 7 minutes were spent discussing the above Pt is not interested in setting a quit date Chest pain 52340366 R07. 9 Echo to evaluate EF, diastolic function, valves and pulmonary pressures Hyperlipidemia 79940626 E78.5 Continue statinLow fat/carboh ydrate dietIncrea se exerciseLo se weight Coronary arteriosclerosis 14591138 I25.10 SL Nitro PRNCont ASA/STATIN /BBContinu e aggressive risk factor modificati on.Continu e current cardiac regimen. [id number] Tato White MD [place] [address] [place] [address],[address] [place] [address] 06/02/2024 11:46:14 06/02/2024 13:15:25 Tobacco user 323922887 Z72.0 Complete smoking cessation strongly urged.Risk s associated with smoking including cardiovasc ular affects of NV stroke in addition to high risk of long bladder and other cancers were discussed. Tips and resources provided as noted below We discuss many products that can help you quit smoking. These products include a nicotine patch, gum, lozenge, nasal spray, and inhaler or other prescripti on medication s For more helpful tips and resources, visit:Poornima Lloydgoff[employer]comin [employer] [place]' s smoke-free programs at www.GranData.gov 403-64U-QU IT ) Total of 7 minutes were spent discussing the above Pt is not interested in setting a quit date Chest pain 25545115 R07. 9 NOC on ECHO 03/2024 - see HPIMPS in 05/2023 - neg for ischemiaat ypical in naturesusp ect from DDD and other ongoing health issues Hyperlipidemia 31119900 E78.5 Continue statinLow fat/carboh ydrate dietIncrea se exerciseLo se weight Coronary arteriosclerosis 55490274 I25.10 SL Nitro PRNCont ASA/STATIN /BBContinu e aggressive risk factor modificati on.Continu e current cardiac regimen. Palpitations 03685387 R0 0.2 Patient advised to call if palpitatio ns get worse or there are any associated chest pain, shortness of breath and/or dizziness. will give event monitor.Mo derate alcohol and caffeine intake.Sta y well-hydra tedMake sure electrolyt es especially potassium and magnesium are repleteinc rease BB as tolerates [id number] Tato White MD [facility] M- [address] [place] [address],[address] [address] 12/22/2024 14:30:35 12/22/2024 15:54:15 Tobacco user 234070179 Z72.0 Complete smoking cessation strongly urged.Risk s associated with smoking including cardiovasc ular affects of NV stroke in addition to high risk of long bladder and other cancers were discussed. Tips and resources provided as noted below We discuss many products that can help you quit smoking. These products include a nicotine patch, gum, lozenge, nasal spray, and inhaler or other prescripti on medication s For more helpful tips and resources, visit:Po[facility] onin [facility] [place]' s smoke-free programs at www.smokef ree.gov 877-44U-QU IT ) Total of 7 minutes were spent discussing the above Pt is not interested in setting a quit date Chest pain 58071223 R07. 9 NOC on ECHO 03/2024 - see HPIMPS in 05/2023 - neg for ischemiaat ypical in naturesusp ect from DDD and other ongoing health issueshas nitro SLcould repeat MPS - pt declinesEK G completed in office and personally reviewed and interprete d by me.Finding s in note Hyperlipidemia 02888160 E78.5 Continue statin at reduced dsoe per pt rerquest, recheck in 3mthsLow fat/carboh ydrate dietIncrea se exerciseLo se weight Coronary arteriosclerosis 93183296 I25.10 SL Nitro PRNCont ASA/STATIN /BBContinu e aggressive risk factor modificati on.Continu e current cardiac regimen. Palpitations 53501791 R0 0.2 Patient advised to call if palpitatio ns get worse or there are any associated chest pain, shortness of breath and/or dizziness. Moderate alcohol and caffeine intake.Sta y well-hydra tedMake sure electrolyt es especially potassium and magnesium are repletecon t bbEvent monitor NOC [id number] Tato White MD [facility] [address] [place] [address] 04/23/2025 10:52:09 04/23/2025 11:17:04 Hyperlipidemia 54934725 E78.5 Continue statinlipi d panel pendLow fat/carboh ydrate dietIncrea se exerciseLo se weight Coronary arteriosclerosis 25631785 I25.10 SL Nitro PRNCont ASA/STATIN /BBContinu e aggressive risk factor modificati on.Continu e current cardiac regimen.co nt medically manageNeg MPS in 2022 and SOA cont to respond to COPD exacerbati on treatmentm onitor Dyspnea on exertion 6084 5006 R06.09 276670 COPD Health Concerns Section Related Observation LastModified by Organization Detai ls LastModified Time None Recorded Concern Status LastModified by Organization Details LastModified Time None Recorded Advance Directives Directive None Recorded Payers Insurance Date Sequence Insurance Name Policy Number Policy Arevalo Covered Member ID Areavlo Member ID Guarantor Name 05/01/2025 2 [employer] [place] (MEDICAID HMO) Tiffanie Shabazz [id number] Tiffanie Shabazz 05/01/2025 1 [facility]/A DVANTAGE - HMO) Tiffanie Shabazz [id number] Tiffanie Shabazz Notes Date Note Type Note Provider Name and Address Organization Details Recorded Time 03/25/2024 text/html ROS as noted in the HPI 53yo with Pmhx significant for HLD, CAD s/p Stent to LAD in 2021, here today for atypical CP and [place] PCP/Referral: Dr. Wade Grayson ([place]) Needing a new rn telephone triage s/t insurance concern. Intermittent left arm pain that occur with activity and rest. Has known DDD in cervical region being worked up. CAD in 2021 and was [address] Chamorro at [facility]. Had stent placed in LAD per pt. Reports concern for 25% blockage in LCx. Reports intermittent central CP that can radiate to her back. Reports pulmonary nodule in RLL. Prior to [place] was having [place]EN[place]. Did not have Cardiac rehab. Reports worsening of SOA with activity again and HR racing, only on BB. Worsening fatigue. Reports tried SL Nitro 2 wks ago and it did not help with the s/s. 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 Outside records personally reviewed - see detailed results below. Will need to review records from previous [facility] +HTN: Cont current regimen: Metoprolol 12.5mg BID,+CAD: Statin and ASA, BB and Nitro SL+HLD: Cont Statin+DAVID: Supposed to use Bi-Pap but currently use 2l o2 HS+COPD:+Tobacco user EK03/25/24: NSR 96bpm 140/82/429 non-specific t wave v3-v4 ECHO: Order October 2021:Proximal LAD PCI, 3 x 22 mm resolute Vance stent. Luminal irregularities noted in left circumflex.TTE: EF 55%, mild LVH. May 2023 myocardial perfusion imagingLeft ventricular ejection fraction is hyperdynamic (Calculated EF > 70%).Myocardial perfusion imaging indicates a normal myocardial perfusion study with no evidence of ischemia. Significant Family hx: Dad : CVA, Mom: CVA Tobacco:Down to 0.5ppd MAURICE ZAVALA, PROCUREMENT COORDINATOR [address] [facility], [place], [address], [place] [facility] - [place] & [place] 03/25/2024 15:11:18 06/02/2024 text/html ROS as noted in the HPI 53yo with Pmhx significant for HLD, CAD s/p Stent to LAD in 2021, here today for f/u eval atypical CP and [place]EN[place] PCP/Referral: Dr. Wade Grayson ([place]) Pt reports she gets tachycardic with minimal activity but has also has had a fear of having another NV so has done little activity since 05/2023. Encouraged slowly exercising and that we will place HM to evaluate tachycardia. Pt will attempt to increase BB to 25mg BID but her b/p runs low. Has known DDD in cervical region being worked up, Intermittent left arm pain that occur with activity and rest. CAD in 2021 and was seen by Dr[address] Chamorro at [facility]. Had stent placed in LAD. Reports concern for 25% blockage in LCx. with MPS in 05/2023 that was neg for ischemia. Reports pulmonary nodule in RLL. Worsening fatigue. 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 Outside records personally reviewed - see detailed results below. Will need to review records from previous [facility] +HTN: Cont current regimen: Metoprolol 12.5mg BID,+CAD: Statin and ASA, BB and Nitro SL+HLD: Cont Statin+DAVID: Supposed to use Bi-Pap but currently use 2l o2 HS+COPD:+Tobacco user+Palpitations:HM EK03/25/24: NSR 96bpm 140/82/429 non-specific t wave v3-v4 ECHO: 03/31/24: NML EF and wall motion. No valvular concerns HM: 1 week October 2021:Proximal LAD PCI, 3 x 22 mm resolute Vance stent. Luminal irregularities noted in left circumflex.TTE: EF 55%, mild LVH. May 2023 myocardial perfusion imagingLeft ventricular ejection fraction is hyperdynamic (Calculated EF > 70%).Myocardial perfusion imaging indicates a normal myocardial perfusion study with no evidence of ischemia. Significant Family hx: Dad : CVA, Mom: CVA Tobacco:Down to 0.5ppd MAURICE ZAVALA, SONNY [address] , [place], [address], [facility] - [place] & [place] 06/02/2024 14:50:37 12/22/2024 text/html ROS as noted in the HPI 53yo with Pmhx significant for HLD, CAD s/p Stent to LAD in 2021, here today for f/u eval atypical CP and GREEN[place] PCP/Referral: Dr. Wade Grayson ([place]) Went to ER 11/20/24 with central atypical CP and some nausea. troponin, pbnp, and all other labs were WNL at ER visit. She was supposed to f/u as an outpt but has been busy. Has not reoccured again. Unfortunately continues to smoke.Attempted to go up on metoprolol to 25mg BID and did not tolerate - continues on 12.5mg BIDCont to report chronic GREENFIELD from COPD Can always consider a repeat MPS - pt declines at this time. Pt would like to decrease statin to 40mg daily, we will recheck lipids in 3mths at f/u appt in [facility] as moved to [place]. Has known DDD in cervical region being worked up, Intermittent left arm pain that occur with activity and rest. CAD in 2021 and was seen [address] Dr[address] Chamorro at [facility].Had stent placed in LAD. Reports concern for 25% blockage in LCx. with MPS in 05/2023 that was neg for ischemia. Reports pulmonary nodule in RLL. 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 Outside records personally reviewed - see detailed results below. Will need to review records from previous [facility] +HTN: Cont current regimen: Metoprolol 12.5mg BID,+CAD: Statin and ASA, BB and Nitro SL+HLD: Cont Statin+DAVID: Supposed to use Bi-Pap but currently use 2l o2 HS+COPD:+Tobacco user+Palpitations:HM- NOC, on BB EKG 12/22/24: NSR w/ sinus arrhythmia 72bpm low voltage QRS , 148/80/407 NML axis/intervalsEK03/25/24: NSR 96bpm 140/82/429 non-specific t wave v3-v4 ECHO: 03/31/24: NML EF and wall motion. No valvular concerns HM: 1 week 06/02/24: SVE and PVC <1% AVG HR 83bpm no arrhythmia , range 60-147bpm October 2021:Proximal LAD PCI, 3 x 22 mm resolute Daniel stent. Luminal irregularities noted in left circumflex.TTE: EF 55%, mild LVH. May 2023 myocardial perfusion imagingLeft ventricular ejection fraction is hyperdynamic (Calculated EF > 70%).Myocardial perfusion imaging indicates a normal myocardial perfusion study with no evidence of ischemia. Significant Family hx: Dad : CVA, Mom: CVA Tobacco:Down to 0.5ppd MAURICE ZAVALA, PROCUREMENT COORDINATOR [address], [place], [address], [place] - [facility] - [place] & [place] 12/30/2024 17:02:47 04/23/2025 text/html ROS as noted in the HPI 54yoF with Pmhx significant for HLD, CAD s/p Stent to LAD in 2021, here today for f/u s/t atypical CP and GREENFIELD PCP/Referral:needs PCP - moved to [place] lipid panel pend at [facility], will provide with ordercont with GREENFIELD but unfortunately continues to smoke and has COPD and wt loss. Would rec to establish care with PCP. Reports following with a manager surgical. Last MPS in 2022 negative.hx of going to ER 11/20/24 with central atypical CP and some nausea. troponin, pbnp, and all other labs were WNL at ER visit. She was supposed to f/u as an outpt but has been busy. Has not reoccurred again. Unfortunately continues to smoke.Cont to report chronic GREENFIELD from COPD requiring steroids noting resolution. If reuirees MPS will need to complete at MPS. Has known DDD in cervical region being worked up, Intermittent left arm pain that occur with activity and rest. Reports pulmonary nodule in RLL. 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 Outside records personally reviewed - see detailed results below. Will need to review records from previous [facility] +HTN: Cont current regimen: Metoprolol 12.5mg BID,+CAD: Statin and ASA, BB and Nitro SL+HLD: Cont Statin+DAVID: Supposed to use Bi-Pap but currently use 2l o2 HS+COPD:+Tobacco user+Palpitations:HM- NOC, on BB CAD in [address] Chamorro at [facility].Had stent placed in LAD. Reports concern for 25% blockage in LCx. with MPS in 05/2023 that was neg for ischemia. EKG 12/22/24: NSR w/ sinus arrhythmia 72bpm low voltage QRS , 148/80/407 NML axis/intervalsEK03/25/24: NSR 96bpm 140/82/429 non-specific t wave v3-v4 ECHO: 03/31/24: NML EF and wall motion. No valvular concerns HM: 1 week 06/02/24: SVE and PVC <1% AVG HR 83bpm no arrhythmia , range 60-147bpm October 2021:Proximal LAD PCI, 3 x 22 mm resolute Daniel stent. Luminal irregularities noted in left circumflex.TTE: EF 55%, mild LVH. May 2023 myocardial perfusion imagingLeft ventricular ejection fraction is hyperdynamic (Calculated EF > 70%).Myocardial perfusion imaging indicates a normal myocardial perfusion study with no evidence of ischemia. Significant Family hx: Dad : CVA, Mom: CVA Tobacco:Down to 0.5ppd MAURICE ZAVALA, PROCUREMENT COORDINATOR [address] , [place], [address], [facility] - [place] & [place] 04/27/2025 17:47:21 OBGyn Episode No OBEpisode recorded.
--- OUTSIDE RECORDS SUMMARY | 2025-07-02 14:06 | XMS_ITS | Encounter Summary ---
Author Organization [employer] ([place], [place], [place], [place]) Address [address] [place] [address] Care Team Providers Care Cigar Roller Name Role Phone Amie Pena MD Primary Care Provider [phone] Marvel Grayson MD Primary Care Provider [phone] Encounter Details Date Type Department Care Team (Late st Contact Info) Description 11/30/2020 Transcribed Document [facility] Family Medicine [address] [place] [address] ProviderMik MD [address] [place] [address] Social History Tobacco Use Types Packs/Day Years Used Date Smoking Tobacco: Never Assessed Comments Unknown Sex and Gender Information Value Date Recorded Sex Assigned at Not on file Legal Sex Female 6:09 PM CDT Gender Identity Not on file Sexual Orientation Not on file documented as of this encounter Miscellaneous Notes * Cerner Conversion Note - Historical ProviderMD - 11/30/2020 4:57 PM CDT documented in this encounter Plan of Treatment Upcoming Encounters Date Type Department Care Team (Late st Contact Info) Description 11/03/2025 12:45 PM EST Office Visit [facility] Pulmonology - [address] [place] [address] Ben Barrios MD [address] [place] [address] documented as of this encounter Visit Diagnoses Not on filedocumented in this encounter Care Teams Cigar Roller Relationship Specialty Start Date End Date Amie Pena MD [address] [facility] [place] [address] PCP - General Family Medicine 10/31/22 04/08/23 Marvel Grayson MD [address] [address] PCP - General Family Medicine 05/17/23 Marvel Grayson [address] [place] [address] Family Practice 04/09/23 documented as of this encounter
--- OUTSIDE RECORDS SUMMARY | 2025-07-02 14:06 | XMS_ITS | Encounter Summary ---
Author Organization [employer] ([place], [place], [place], [place]) Address [address] [place] [address] Care Team Providers Care Metaphysician Name Role Phone Amie Pena MD Primary Care Provider [phone] Marvel Grayson MD Primary Care Provider [phone] Encounter Details Date Type Department Care Team (Late st Contact Info) Description 04/11/2019 Transcribed Document [facility] [place] [address] [place] [address] ProviderMik MD [address] [place] [address] Social History Tobacco Use Types Packs/Day Years Used Date Smoking Tobacco: Never Assessed Comments Unknown Sex and Gender Information Value Date Recorded Sex Assigned at Not on file Legal Sex Female 6:09 PM CDT Gender Identity Not on file Sexual Orientation Not on file documented as of this encounter Miscellaneous Notes * Cerner Conversion Note - Historical ProviderMD - 04/11/2019 1:19 PM CDT PAT Adult Entered On: 04/11/2019 13:23 EDT Performed On: 04/11/2019 13:19 EDT by ALLA ZAPATA, RN Vital Measurements Temperature Mode : Fahrenheit Temperature, Fahrenheit : 97.3 Deg F Clinical Temperature, C : 36.3 Deg C Peripheral Pulse Rate : 92 bpm Respiratory Rate : 18 Breaths/Min Systolic Blood Pressure : 115 mmHg Diastolic Blood Pressure : 70 mmHg Oxygen Saturation : 93 % (LOW) Oxygen Therapy Mode : Room air ALLA ZAPATA RN - 04/11/2019 13:19 EDT Height and Weight, Clinical Dosing Height Source : Stated Height Entry Format : Hardy Height, Feet : 5 ft(Converted to: 152 cm, 60 Inch) Height, Inches : 11 Inch(Converted to: 0 ft 11 Inch, 27.94 cm) Clinical Height : 180.34 cm Weight Source : Standing scale Weight Entry Format : Hardy Clinical Dosing Weight : 93.18 kg Weight, Pounds : 205 lb Body Surface Area (BSA) : 2.13 m2 Body Mass Index : 28.7 kg/m2 (HI) Cucumber Body Weight : 70 kg ALLA ZAPATA RN - 04/11/2019 13:19 EDT Health Histories Smoking Status : 10 or more cigarettes (1/2 pack or more)/day in last 30 days Smokeless Tobacco Status : Never Desires Tobacco Cessation Medication : No Reason for No Tobacco Cessation Medication : Refuses FDA approved medications ALLA ZAPATA RN - 04/11/2019 13:19 EDT Social History (As Of: 04/11/2019 13:23:26 EDT) Tobacco: Use in Last 12 Months: Cigarettes. Smoking Status Current every day smoker. Years of Use: 30. Packs/Tins Daily: 1. (Last Updated: 03/29/2015 21:16:03 EDT by MARIAN YAO, RN) 10 or more cigarettes (1/2 pack or more)/day in last 30 days Smoking Status. (Last Updated: 09/25/2018 17:08:54 EST by Tahira Coffey, Russ) 10 or more cigarettes (1/2 pack or more)/day in last 30 days Smoking Status. Never Smokeless Tobacco Status. e-Cigarettes Alternative Nicotine Product Use. (Last Updated: 04/11/2019 13:17:27 EDT by ALLA ZAPATA, RN) Alcohol: Use in Last 12 Months: No. (Last Updated: 11/28/2013 12:39:53 EDT by DIALLO MCKEON, RN) Alcohol Use History Yes. Alcohol Use Comment states very rarely. (Last Updated: 09/17/2014 18:20:29 EST by Tyrone Lennon REGISTERED_NURSE_EMERGENCY_ROO) Alcohol Use History No. (Last Updated: 04/11/2019 13:17:27 EDT by ALLA ZAPATA, RN) Substance Abuse: Drug Use Hx: No. (Last Updated: 11/28/2013 12:39:50 EDT by DIALLO MCKEON, RN) Drug Use Hx: No. (Last Updated: 04/11/2019 13:17:27 EDT by ALLA ZAPTAA, RN) Nutrition/Health: Caffeine intake amount: pot of [...] Region : No Tuberculosis Symptoms : None ALLA ZAPATA RN - 04/11/2019 13:19 EDT Anesthesia/Transfusion History Family History of Anesthesia Reaction : No prior transfusion(s) Transfusion History : Prior anesthesia without reaction Family History of Anesthesia Reaction : None ALLA ZAPATA RN - 04/11/2019 13:19 EDT Functional Assessment Functional ADL Evaluation Index EBN Bathing : Independent (2) Dressing : Independent (2) Toileting : Independent (2) Transferring Bed or Chair : Independent (2) Continence : Independent (2) Feeding : Independent (2) ALLA ZAPATA RN - 04/11/2019 13:19 EDT ADL Index Score : 12 ALLA ZAPATA RN - 04/11/2019 13:19 EDT Advance Directive Patient has Advance Directive *Q : No, patient refuses Advance Directive information ALLA ZAPATA RN - 04/11/2019 13:19 EDT Spiritual/Cultural Needs Spiritual/Cultural Needs Comment : pre-op prayer OR 03/30 ALLA ZAPATA RN - 04/11/2019 13:19 EDT Psychosocial History Do You Have a History of the Following? : Post Traumatic Stress Disorder Currently in Unsafe Situation : No Tried to Harm Yourself in the Past? : Yes Thoughts of Harming/Killing Yourself : No ALLA ZAPATA RN - 04/11/2019 13:19 EDT Teaching/Learning Assessment Barriers To Learning : None evident Individuals Taught : Patient Readiness to Learn : Cooperative Readiness to Learn : Explanation ALLA ZAPATA RN - 04/11/2019 13:19 EDT Education Topics, Periop Preadmission Perioperative Education Grid Arrival Time/Place : Verbalizes understanding Infection Control : Verbalizes understanding NPO Status/Directions : Verbalizes understanding Preprocedure Preparations : Verbalizes understanding Preprocedure Tests/Labs : Verbalizes understanding Remove Body Piercings : Verbalizes understanding Responsible Adult : Verbalizes understanding Take/Hold Medications Pre-Procedure : Verbalizes understanding ALLA ZAPATA RN - 04/11/2019 13:19 EDT General Info Preferred Name : Tiffanie Thomas Family/Rep/Phys Notified of Admit : No Emergency Contact #1 : rommel Emergency Contact #1 Emergency Contact #1 Relationship : spouse Emergency Contact #2 : - Emergency Contact #2 Phone Number : - Emergency Contact #2 Relationship : - Primary Language : Czech Preferred Communication Mode : Verbal Communication Barrier : None ALLA ZAPATA RN - 04/11/2019 13:19 EDT Abdoulaye Scale Abdoulaye Sensory Perception : No impairment Abdoulaye Moisture : Rarely moist Abdoulaye Activity : Walks occasionally Abdoulaye Mobility : Slightly limited Abdoulaye Nutrition : Adequate Abdoulaye Friction and Shear : No apparent problem Abdoulaye Score : 20 ALLA ZAPATA RN - 04/11/2019 13:19 EDT Sleep Apnea Risk Assmt Hx of [...] Sleep Apnea Risk Level Score : 1 ALLA ZAPATA RN - 04/11/2019 13:19 EDT documented in this encounter Plan of Treatment Upcoming Encounters Date Type Department Care Team (Late st Contact Info) Description 11/03/2025 12:45 PM EST Office Visit [facility] Pulmonology - [address] [place] [address] Ben Barrios MD [address] [place] [address] documented as of this encounter Visit Diagnoses Not on filedocumented in this encounter Care Teams Metaphysician Relationship Specialty Start Date End Date Amie Pena MD [address] [place] [address] [place] [address] PCP - General Family Medicine 10/31/22 04/08/23 Marvel Grayson MD [address] [place] [address] [place] [address] PCP - General Family Medicine 05/17/23 Marvel Grayson [address] [place] [address] Family Practice 04/09/23 documented as of this encounter
--- OUTSIDE RECORDS SUMMARY | 2025-07-02 14:06 | XMS_ITS | Encounter Summary ---
Author Organization [employer] ([place], [place], [place], [place]) Address [address] [place] [address] Care Team Providers Care Liquor Stores And Agencies Supervisor Name Role Phone Amie Pena MD Primary Care Provider [phone] Marvel Grayson MD Primary Care Provider [phone] Encounter Details Date Type Department Care Team (Late st Contact Info) Description 11/30/2020 Transcribed Document [facility] [place] Family Medicine [address] [place] [address] ProviderMik MD [address] [place] [address] Social History Tobacco Use Types Packs/Day Years Used Date Smoking Tobacco: Never Assessed Comments Unknown Sex and Gender Information Value Date Recorded Sex Assigned at Not on file Legal Sex Female 6:09 PM CDT Gender Identity Not on file Sexual Orientation Not on file documented as of this encounter Miscellaneous Notes * Cerner Conversion Note - Mik ProviderMD - 11/30/2020 5:16 PM CDT ED Discharge Entered On: 11/30/2020 17:17 EDT Performed On: 11/30/2020 17:16 EDT by RADHA BROOKS metal forger's assistant Process Patient Disposition : Discharge Personal Belongings With Patient : Yes Patient Education Completed : Yes Teaching Evaluation : Verbalizes understanding RADHA BROOKS RN - 11/30/2020 17:16 EDT ED Discharge Vital Signs Peripheral Pulse Rate : 95 bpm Respiratory Rate : 16 Breaths/Min Systolic Blood Pressure : 128 mmHg Diastolic Blood Pressure : 75 mmHg Oxygen Saturation : 96 % RADHA BROOKS RN - 11/30/2020 17:16 EDT ED Discharge Discharge To : Home without planned follow-up Mode Of Departure : Ambulatory Accompanied By : Unaccompanied Discharge Instructions Reviewed With, Opportunity For Questions Given : Patient Prescriptions Given to Patient : Electronically sent Number of Prescriptions Given : 1 RADHA BROOKS RN - 11/30/2020 17:16 EDT Electronically signed by [facility] Conversion Outpatient Scheduler Cerner at 12/16/2022 10:51 AM CDT documented in this encounter Plan of Treatment Upcoming Encounters Date Type Department Care Team (Late st Contact Info) Description 11/03/2025 12:45 PM EST Office Visit [facility] Pulmonology - [address] [place] [address] Ben Barrios MD [address] [place] [address] documented as of this encounter Visit Diagnoses Not on filedocumented in this encounter Care Teams Liquor Stores And Agencies Supervisor Relationship Specialty Start Date End Date Amie Pena MD [address] [place], [place] [address] [address] PCP - General Family Medicine 10/31/22 04/08/23 Marvel Grayson MD [address] [place] [address] PCP - General Family Medicine 05/17/23 Marvel Grayson [address] [place], [place] [id number] Family Practice 04/09/23 documented as of this encounter
--- OUTSIDE RECORDS SUMMARY | 2025-07-02 14:06 | XMS_ITS | Encounter Summary ---
Author Organization [employer] ([place], [place], [place], [place]) Address [address] [place] [address] Care Team Providers Care Timber Bucker Name Role Phone Marvel Grayson MD Primary Care Provider [phone] Encounter Details Date Type Department Care Team (Latest Contact Info) Description 05/28/2025 Travel Social History Tobacco Use Types Packs/Day Years [...] Date Thanh rded Speak language other than Tajik at home Not on file 09/21/2023 Want [...] Visit [facility] Pulmonology - [address] [place] [address] Ben Barrios MD [address] [place] [address] documented as of this encounter Visit Diagnoses Not on filedocumented in this encounter Care Teams Timber Bucker Relationship Specialty Start Date End Date Marvel Grayson MD PCP - General Family Medicine 05/17/23 Marvel Grayson [address] [place] [address] Family Practice 04/09/23 documented as of this encounter
--- OUTSIDE RECORDS SUMMARY | 2025-07-02 14:06 | XMS_ITS | Encounter Summary ---
Author Organization [employer] ([place], [place], [place], [place]) Address [address] [place] [address] Care Team Providers Care Construction Coordinator Name Role Phone Marbella Pena MD Primary Care Provider [phone] Marvel Grayson MD Primary Care Provider [phone] Encounter Details Date Type Department Care Team (Late st Contact Info) Description 09/11/2020 Transcribed Document [facility] [place] Family Medicine [address] [place] [address] ProviderMik MD [address] [place] [address] Social History Tobacco Use Types Packs/Day Years Used Date Smoking Tobacco: Never Assessed Comments Unknown Sex and Gender Information Value Date Recorded Sex Assigned at Not on file Legal Sex Female 6:09 PM CDT Gender Identity Not on file Sexual Orientation Not on file documented as of this encounter Miscellaneous Notes * Cerner Conversion Note - Historical ProviderMD - 09/11/2020 5:28 PM MANDOLIN REPAIRER Patient: PRATIK SHABAZZ Age: 49 years Sex: Female : 1970 Associated Diagnoses: Exacerbation of chronic back pain Author: JUAN MEZA MD-EMR Basic Information Additional information: Chief Complaint from Nursing Triage Note : Chief Complaint 09/11/2020 16:53 EST Chief Complaint back pain for last two days. states she has taken her Lortabs but not working . History of Present Illness The patient presents with lumbar pain. The onset was 2 days ago. The course/duration of symptoms is constant. Type of injury: Coughing a lot. The location where the incident occurred was at home. Location: lumbar. Radiating pain: left lower extremity. Lateral thigh and medial proximal thigh. The character of symptoms is sharp and burning. The degree at present is moderate. There are exacerbating factors including movement and walking. The relieving factor is none. Risk factors consist of smoking. Prior episodes: none. Associated symptoms: denies bowel dysfunction and denies bladder dysfunction. Review of Systems Constitutional symptoms: No fever, no chills. Skin symptoms: No jaundice, Eye symptoms: Vision unchanged. ENMT symptoms: No ear pain, Respiratory symptoms: No shortness of breath, Cardiovascular symptoms: No chest pain, Gastrointestinal symptoms: No abdominal pain, Genitourinary symptoms: No dysuria, Musculoskeletal symptoms: No back pain, Neurologic symptoms: No dizziness, Endocrine symptoms: No polyuria, Additional review of systems information: All other [...] at 40 Years. Removal of ovarian cyst ([id number]). I&D to left finger. Hysterectomy ([id number]).. Family history: No family history items have [...] Daily 1 . Physical Examination Vital Signs Measurements 09/11/2020 16:53 EST Height Source Estimated Height Entry Format [place] Height/Length, MEXICAN (ft) 5 ft Height/Length MEXICAN 11 Inch CLINICALHEIGHT 180.34 cm [place] Body Weight 70.31 kg Weight Source, ED Critical estimated dosing weight Weight Entry Format [place] Weight Moroccan lb 200 lb CLINICALWEIGHT 90.91 kg Body Surface Area (BSA) 2.11 m2 Body Mass Index 28 kg/m2 HI . Oxygen Saturation 09/11/2020 16:53 EST Oxygen Saturation 98 % . General: Alert, moderate distress. Skin: Warm, dry. Eye: Pupils are equal, round and reactive to light, extraocular movements are intact, normal conjunctiva. Cardiovascular: Regular rate and rhythm, No murmur. Respiratory: Breath sounds: Bilateral, wheezes present mild. Gastrointestinal: Soft, Nontender, Non distended. Back: Nontender, Normal range of motion. Neurological: Alert and oriented to person, place, time, and situation, No focal neurological deficit observed. Psychiatric: Cooperative. Medical Decision Making Orders Include Previous Orders (Selected) Inpatient Orders Ordered ED Fall Risk Documented: Cancelled (Canceled) MRI Spine Lumbar WO: MY Digital Screen BILAT: Completed [place] Violence Assessment: ED Adult Fall Risk Assessment: ED Adult Triage: ED C-SSRS: ED Clinical Reconciliation: ED small electric engine technician: Future (On Hold) MY Digital Screen BILAT: . Impression and Plan Diagnosis Exacerbation of chronic back pain - Discharge, Emergency medicine, Medical Plan Condition: Unchanged. Disposition: Discharged Admit/Transfer/Discharge: Discharge (Order): Start: 09/11/2020 17:31 EST, Discharge to: Home. Prescriptions: Prescription [facility]: Percocet 5/325 oral tablet (Prescribe): 1 Tab, Oral, Q4H, PRN: for pain, 10 Tab, 0 Refill(s). Patient was given the following educational materials: Chronic Back Pain. Follow up with: MARBELLA PENA Within 2 to 3 days; [facility]U [facility]YS Within 3 to 5 days. Counseled: Patient. documented in this encounter Plan of Treatment Upcoming Encounters Date Type Department Care Team (Late st Contact Info) Description 11/03/2025 12:45 PM EST Office Visit [facility] Pulmonology - [address] [place] [address] Ben Barrios MD [address] [place], [place] [id number] documented as of this encounter Visit Diagnoses Not on filedocumented in this encounter Care Teams Construction Coordinator Relationship Specialty Start Date End Date Mrabella Pena MD [address] [place], [place] [address] [address] PCP - General Family Medicine 10/31/22 04/08/23 Marvel Grayson MD [address] [place] [address] [place] [address] PCP - General Family Medicine 05/17/23 Marvel Grayson [address] [place] [address] Family Practice 04/09/23 documented as of this encounter
--- OUTSIDE RECORDS SUMMARY | 2025-07-02 14:06 | XMS_ITS | Encounter Summary ---
Author Organization [employer] ([place], [place], [place], [place]) Address [address] [place] [address] Care Team Providers Care Anesthesiologists' Assistant Name Role Phone Amie Pena MD Primary Care Provider [phone] Marvel Grayson MD Primary Care Provider [phone] Encounter Details Date Type Department Care Team (Late st Contact Info) Description 09/11/2020 Transcribed Document [facility] [place] [address] [place] [address] ProviderMik MD [address] [place] [address] Social History Tobacco Use Types Packs/Day Years Used Date Smoking Tobacco: Never Assessed Comments Unknown Sex and Gender Information Value Date Recorded Sex Assigned at Not on file Legal Sex Female 6:09 PM CDT Gender Identity Not on file Sexual Orientation Not on file documented as of this encounter Miscellaneous Notes * Cerner Conversion Note - Mik ProviderMD - 09/11/2020 6:16 PM FOREST [employer]RE FIGHTER ED Discharge Entered On: 09/11/2020 18:17 EST Performed On: 09/11/2020 18:16 EST by mAber Lobato RN Discharge Process Patient Disposition : Discharge Personal Belongings With Patient : Yes Patient Education Completed : Yes Teaching Evaluation : Verbalizes understanding IV Discontinued : Not applicable Nursing Documentation Completed : Yes Amber Lobato RN - 09/11/2020 18:16 EST ED Discharge Discharge To : Home with ambulatory/outpatient follow-up Mode Of Departure : Private vehicle Accompanied By : Unaccompanied Discharge Instructions Reviewed With, Opportunity For Questions Given : Patient Prescriptions Given to Patient : Electronically sent Number of Prescriptions Given : 1 Amber Lobato, RN - 09/11/2020 18:16 EST Electronically signed by [facility], [facility] Conversion Employment Coordinator Cerner at 12/16/2022 10:46 AM CDT documented in this encounter Plan of Treatment Upcoming Encounters Date Type Department Care Team (Late st Contact Info) Description 11/03/2025 12:45 PM EST Office Visit [facility] Pulmonology - [address] [place] [address] Ben Barrios MD [address] [place] [address] documented as of this encounter Visit Diagnoses Not on filedocumented in this encounter Care Teams Anesthesiologists' Assistant Relationship Specialty Start Date End Date Amie Pena MD [address] [place] [address] [place] [address] PCP - General Family Medicine 10/31/22 04/08/23 Marvel Grayson MD [address] [place] [address] [place] [address] PCP - General Family Medicine 05/17/23 Marvel Grayson [address] [place] [address] Family Practice 04/09/23 documented as of this encounter
--- OUTSIDE RECORDS SUMMARY | 2025-07-02 14:06 | XMS_ITS | Encounter Summary ---
Author Organization [employer] ([place], [place], [place], [place]) Address [address] [place] [address] Care Team Providers Care Cook Sauce Name Role Phone Amie Pena MD Primary Care Provider [phone] Marvel Grayson MD Primary Care Provider [phone] Encounter Details Date Type Department Care Team (Late st Contact Info) Description 04/14/2019 Transcribed Document [facility] [place] [address] [place] [address] ProviderMik MD [address] [place] [address] Social History Tobacco Use Types Packs/Day Years Used Date Smoking Tobacco: Never Assessed Comments Unknown Sex and Gender Information Value Date Recorded Sex Assigned at Not on file Legal Sex Female 6:09 PM CDT Gender Identity Not on file Sexual Orientation Not on file documented as of this encounter Miscellaneous Notes * Cerner Conversion Note - Mik Thorne MD - 04/14/2019 10:21 PM CDT [facility] [address] [place] [address] PRATIK SHABAZZ :1970 Visit Time:04/14/2019 Your Visit Summary Your Care Team Admitting Physician - BRAYDEN GARIBAY MD-EMR Attending Physician - BRAYDEN GARIBAY MD-EMR Primary Care Physician - ELOY JOHANSEN DR Referring Physician - BRAYDEN GARIBAY MD-EMR Your Diagnosis Medical problem - minor Phlebitis of left upper extremity Swelling of joint, wrist, right Wrist injury - Minor Medical Information You may obtain a copy [...] do next Follow-Up Appointments Follow Up with NO PRIM DR JOHANSEN When Within 2 to 3 days Follow Up with Return to Emergency Department When Within As needed Follow Up with Follow up with primary care provider When Within 2 to 3 days Comments Apply warm compresses to site. Allergies Cymbalta (suicidal) Haldol (Hives) Ultram (Hives) [...] This Visit (last charted value for your 04/14/2019 visit) No Laboratory or Other Results This Visit Education Materials Phlebitis Phlebitis is soreness and swelling (inflammation) of a vein. This can occur in your arms, legs, or torso (trunk), as well as deeper inside your body. Phlebitis is usually not serious when it occurs close to the surface of the body. However, it can cause serious problems when it occurs deeper inside the body. What are the causes? Phlebitis can be caused by: ??? Having a needle, IV tube, or long, thin tube (catheter) put in the vein. ??? Getting certain medicines or solutions through an IV tube. Some medicines or solutions, such as antibiotics and cancer medicines, can irritate the vein. ??? Having an IV tube for a long period of time. ??? Having an IV placed on the part of the arm or hand that moves a lot. ??? A blood clot. ??? Infection of the vein. ??? Surgery on a vein. What increases the risk? The following factors may make you more likely to develop this condition: ??? Being overweight or obese. ??? . ??? Cancer. ??? Reduced or slowing of blood flow through your veins. This can be caused by: ? Bed rest over a long period of time. ? Long distance travel. ? Injury. ? Surgery. ? Congestive heart failure. ? Inactivity. ??? Smoking. ??? Taking control pills or hormone replacement therapy. ??? Varicose veins. ??? Inflammatory diseases or blood disorders that increase clotting. ??? Taking illegal drugs through the vein. ??? Having a history of blood clots. What are the signs or symptoms? Symptoms of this condition include: ??? A red, tender, swollen, and painful area on your skin. Usually, the area is long and narrow, and may spread. ??? The affected area feeling warm to the touch. ??? Firmness along the center of the affected area. ??? Low fever. How is this diagnosed? This condition is diagnosed based on: ??? Your symptoms. ??? A physical exam. ??? Your medical history, including your family history. Other tests may be done to rule out other conditions, such as blood clots, especially if you have a history of blood clots or are at higher risk of developing blood clots. These may include: ??? Blood tests. ??? Ultrasound exam. ??? Genetic tests. ??? Biopsy. This is when a tissue is taken from the body for examination. This is rare. How is this treated? Treatment depends on the severity of the condition as well as the location of the inflammation. In most cases, the condition is minor and gets better quickly. Treatment may include: ??? Applying a warm compress or heating pad. ??? Wearing compression stockings or bandages. ??? Medicines, such as: ? Anti-inflammatory medicines. ? Antibiotic medicines if an infection is present. ? Blood-thinning medicines if a blood clot is suspected or present, or if you have a history of blood clots or a blood disorder. ??? Removing an IV tube that may be causing the problem. ??? Using a different medicine or solution that will not irritate the vein. In rare cases, surgery may be needed to remove a damaged section of a vein. Follow these instructions at home: Managing pain, stiffness, and swelling ??? If directed, apply heat to the [...] a greater risk of getting burned. ??? Raise (elevate) the affected area above the level of your heart while you are sitting or lying down. Medicines ??? Take [id number] and prescription medicines only as told by your health care provider. ??? If you were prescribed an antibiotic, take it as told by your health care provider. Do not stop using the antibiotic even if you start to feel better. ??? Carry a medical alert card or wear your medical alert jewelry to show that you are on blood thinners, if this applies. General instructions ??? If you have phlebitis in your legs: ? Avoid sitting or standing for a long time. ? Keep your legs moving. ? Try to take short walks to break up long periods of sitting. ? Try to avoid bed rest that lasts for long periods of time. Regular sleep is not part of bed rest. ??? Wear compression stockings as told by your health care provider. These stockings reduce swelling in your legs and help to prevent blood clots. They also help to prevent the condition from coming back. ??? Do not use any products that contain nicotine or tobacco, such as cigarettes and e-cigarettes. If you need help quitting, ask your health care provider. ??? Keep all follow-up visits as told by your health care provider. This is important. This may include any follow-up blood tests. Contact a health care provider if: ??? You have unusual bruising or any bleeding problems. ??? Your symptoms do not get better, or your symptoms get worse. ??? You are on anti-inflammatory medicines and you develop abdominal pain. Get help right away if: ??? You suddenly have chest pain or trouble breathing. ??? You have a fever and your symptoms suddenly get worse. ??? You cough up blood. ??? You feel lightheaded or pass out. ??? You have severe pain and swelling in the affected arm or leg. These symptoms may represent a serious problem that is an emergency. Do not wait to see if the symptoms will go away. Get medical help right away. Call your local emergency services (911 in the [place] Do not drive yourself to the hospital. Summary ??? Phlebitis is soreness and swelling (inflammation) of a vein. ??? Phlebitis is usually not serious when it occurs close to the surface of the body. However, it can cause serious problems when it occurs deeper inside the body. ??? Treatment depends on the severity of the condition and the location of the inflammation. ??? Raise (elevate) the affected area above the level of your heart while you are sitting or lying down. This information is not intended to replace advice given to you by your health care provider. Make sure you discuss any questions you have with your health care provider. Document Released: 08/14/2002 Document Revised: 09/25/2017 Document Reviewed: 09/25/2017 [employer] Interactive Patient Education ?? 2019 [employer]. Emergency Awareness and Preventative Care STROKE is [...] Assistance with quitting is available by contacting 8-452-JAETArbor PhotonicsNOW. This is a free resource providing counseling, [...] was given the opportunity to ask questions. Patient/High School Special Education Teacher Name: Patient/High School Special Education Teacher Signature: Relationship to Patient: Clinician/Hospital High School Special Education Teacher Signature: Please Provide a Telephone Number Where You Can Be Reached: Is it Permissible To Leave a Message? Date: Electronically signed by [place], [facility] Conversion Title Abstractor Cerner at 12/16/2022 10:36 AM CDT documented in this encounter Plan of Treatment Upcoming Encounters Date Type Department Care Team (Late st Contact Info) Description 11/03/2025 12:45 PM EST Office Visit [facility] Pulmonology - [address] [place] [id number] Ben Barrios MD [address] [place] [address] documented as of this encounter Visit Diagnoses Not on filedocumented in this encounter Care Teams Cook Sauce Relationship Specialty Start Date End Date Amie Pena MD [address] [place], [place] [address] PCP - General Family Medicine 10/31/22 04/08/23 Marvel Grayson MD [address] [place] [address] PCP - General Family Medicine 05/17/23 Marvel Grayson [facility] [place] [address] Family Practice 04/09/23 documented as of this encounter
--- OUTSIDE RECORDS SUMMARY | 2025-07-02 14:06 | XMS_ITS | Encounter Summary ---
Author Organization [employer] ([place], [place], [place], [place]) Address [address] [place] [address] Care Team Providers Care Bonding Machine Tender Name Role Phone Amie Pena MD Primary Care Provider [phone] Marvel Grayson MD Primary Care Provider [phone] Encounter Details Date Type Department Care Team (Late st Contact Info) Description 11/30/2020 Transcribed Document [facility] [place] [address] ProviderMik MD [address] [place] [address] Social History Tobacco Use Types Packs/Day [...] Historical ProviderMD - 11/30/2020 4:11 PM CDT Broset Violence Assessment Entered On: 11/30/2020 16:17 EDT Performed On: 11/30/2020 16:17 EDT by Erinn Powell RN Broset Violence Assessment Broset Violence Checklist of Symptoms : None Broset Violence Symptoms Subtotal : 0 Broset Violence Symptoms Indicator : Low risk (0) Broset Interventions : [place] precautions for safety used Erinn Powell RN - 11/30/2020 16:17 EDT Electronically signed by [place], [facility] Conversion Senior Wind Turbine Technician Cerner at 12/16/2022 10:50 AM CDT documented in this encounter Plan of Treatment Upcoming Encounters Date Type Department Care Team (Late st Contact Info) Description 11/03/2025 12:45 PM EST Office Visit [facility] Pulmonology - [address] [place] [phone] Ben Barrios MD [address] [place] [address] documented as of this encounter Visit Diagnoses Not on filedocumented in this encounter Care Teams Bonding Machine Tender Relationship Specialty Start Date End Date Amie Pena MD [address] [place] [address] [place] [address] PCP - General Family Medicine 10/31/22 04/08/23 Marvel Grayson MD [address] [place] [address] [place] [address] PCP - General Family Medicine 05/17/23 Marvel Grayson [address] [place] [address] Family Practice 04/09/23 documented as of this encounter
--- OUTSIDE RECORDS SUMMARY | 2025-07-02 14:06 | XMS_ITS | Encounter Summary ---
Author Organization [email or web address] ([place], [place], [place], [place]) Address [address] [place] [address] Care Team Providers Care Director Of Curriculum And Instruction Name Role Phone Amie Pena MD Primary Care Provider [phone] Marvel Grayson MD Primary Care Provider [phone] Encounter Details Date Type Department Care Team (Late st Contact Info) Description 09/11/2020 Transcribed Document [facility] [place] [facility] [place] [address] ProviderMik MD [address] [place] [address] Social History Tobacco Use Types Packs/Day Years Used Date Smoking Tobacco: Never Assessed Comments Unknown Sex and Gender Information Value Date Recorded Sex Assigned at Not on file Legal Sex Female 6:09 PM CDT Gender Identity Not on file Sexual Orientation Not on file documented as of this encounter Miscellaneous Notes * [employer]ner Conversion Note - Historical ProviderMD - 09/11/2020 4:31 PM DIMENSION QUARRY SUPERVISOR [place] Suicide Severity Rating Scale (C-SSRS) Entered On: 09/11/2020 16:58 EST Performed On: 09/11/2020 16:53 EST by Yesika Caicedo RN [place] Suicide Severity Rating Scale (C-SSRS) CSSRS Past Month Wish to be : No CSSRS Past Month Suicidal Thoughts : No CSSRS Lifetime Suicide Behavior : No Suicide Severity Rating Score : 0 Suicide Severity Rating : No Additional Care Required at this time Yesika Caicedo, RN - 09/11/2020 16:53 EST documented in this encounter Plan of Treatment Upcoming Encounters Date Type Department Care Team (Late st Contact Info) Description 11/03/2025 12:45 PM EST Office Visit [facility] Pulmonology - [address] [place] [address] Ben Barrios MD [address] [place] [address] documented as of this encounter Visit Diagnoses Not on filedocumented in this encounter Care Teams Director Of Curriculum And Instruction Relationship Specialty Start Date End Date Amie Pena MD [address] [place] [address] [place] [address] PCP - General Family Medicine 10/31/22 04/08/23 Marvel Grayson MD [address] [place] [address] [place] [address] PCP - General Family Medicine 05/17/23 Marvel Grayson [address] [place] [address] Family Practice 04/09/23 documented as of this encounter
--- OUTSIDE RECORDS SUMMARY | 2025-07-02 14:06 | XMS_ITS | Encounter Summary ---
Author Organization [employer] ([place], [place], [place], [place]) Address [address] [place] [address] Care Team Providers Care Lower In Supervisor Name Role Phone Amie Pena MD Primary Care Provider [phone] Marvel Grayson MD Primary Care Provider [phone] Encounter Details Date Type Department Care Team (Late st Contact Info) Description 11/30/2020 Transcribed Document [facility] [place] [address] [place] [address] ProviderMik MD [address] [place] [address] Social History Tobacco Use Types Packs/Day Years Used Date Smoking Tobacco: Never Assessed Comments Unknown Sex and Gender Information Value Date Recorded Sex Assigned at Not on file Legal Sex Female 6:09 PM CDT Gender Identity Not on file Sexual Orientation Not on file documented as of this encounter Miscellaneous Notes * [employer]ner Conversion Note - Historical ProviderMD - 11/30/2020 6:30 PM CDT CR Chest 2 Vws Ordered: 11/30/2020 Auth (Verified) Reason for Exam: cough, back pain 11/30/2020 17:17 11/30/2020 18:30 (WARD NICK) No further action required Electronically signed by [place] [facility] Conversion Drilling Inspector Cerner at 12/16/2022 10:49 AM CDT documented in this encounter Plan of Treatment Upcoming Encounters Date Type Department Care Team (Late st Contact Info) Description 11/03/2025 12:45 PM EST Office Visit [facility] Pulmonology - [address] [place] [address] Ben Barrios MD [address] [place], [place] [id number] documented as of this encounter Visit Diagnoses Not on filedocumented in this encounter Care Teams Lower In Supervisor Relationship Specialty Start Date End Date Amie Pena MD [address] [place] [address] [place] [address] PCP - General Family Medicine 10/31/22 04/08/23 Marvel Grayson MD [address] [place] [address] [place] [address] PCP - General Family Medicine 05/17/23 Marvel Grayson [address] [place] [address] Family Practice 04/09/23 documented as of this encounter
--- OUTSIDE RECORDS SUMMARY | 2025-07-02 14:07 | XMS_ITS | Clinical Summary ---
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 04/04/2023 Hyperlipidemia LDL [...] AM EST Performed at: 01 - [facility] [address] [place], [place] [id number] Garment Patternmaker: Dhiraj Awad PhD, Phone: [phone] us Iona Craig PAAmand[facility] LAB BLOOD ORDERABLES Final Result [facility] ([facility]) [address] [place] [address], [place] [phone] [facility] [address] [place] [address], [place] [phone] from Last 3 Months or Most Recently Relevant to Health Maintenance Insurance [employer] [facility] HMO NON PAR Care Teams Assistant Professor Of Chemistry Relationship Specialty Start Date End Date Marvel Grayson MD [address] [place] [address] PCP - General Family Medicine 03/14/23
--- OUTSIDE RECORDS SUMMARY | 2025-07-02 14:07 | XMS_ITS | Encounter Summary ---
Author Organization [employer] ([place], [place], [place], [place]) Address [address] [place] [address] Care Team Providers Care Environment Friendly Landscape Designer Name Role Phone Amie Pena MD Primary Care Provider [phone] Marvel Grayson MD Primary Care Provider [phone] Encounter Details Date Type Department Care Team (Late st Contact Info) Description 08/06/2020 Transcribed Document [facility] [place] [address] [place] [address] ProviderMik MD [address] [place] [address] Social History Tobacco Use Types Packs/Day Years Used Date Smoking Tobacco: Never Assessed Comments Unknown Sex and Gender Information Value Date Recorded Sex Assigned at Not on file Legal Sex Female 6:09 PM CDT Gender Identity Not on file Sexual Orientation Not on file documented as of this encounter Miscellaneous Notes * [employer] Conversion Note - Historical ProviderMD - 08/06/2020 1:53 PM DIRECTOR OF GRADUATE MEDICAL EDUCATION Broset Violence Assessment Entered On: 08/06/2020 14:05 EST Performed On: 08/06/2020 14:01 EST by RADHA BROOKS RN Broset Violence Assessment Broset Violence Checklist of Symptoms : None Broset Violence Symptoms Subtotal : 0 Broset Violence Symptoms Indicator : Low risk (0) RADHA BROOKS RN - 08/06/2020 14:01 EST documented in this encounter Plan of Treatment Upcoming Encounters Date Type Department Care Team (Late st Contact Info) Description 11/03/2025 12:45 PM EST Office Visit [facility] Pulmonology - [address] [place] [phone] Ben Barrios MD [address] [place] [address] documented as of this encounter Visit Diagnoses Not on filedocumented in this encounter Care Teams Environment Friendly Landscape Designer Relationship Specialty Start Date End Date Amie Pena MD [address] [place], [place] [address] [address] PCP - General Family Medicine 10/31/22 04/08/23 Marvel Grayson MD [facility] [place] [address] PCP - General Family Medicine 05/17/23 Marvel Grayson [address] [place] [address] Family Practice 04/09/23 documented as of this encounter
--- OUTSIDE RECORDS SUMMARY | 2025-07-02 14:07 | XMS_ITS | Encounter Summary ---
Author Organization [employer] ([place], [place], [place], [place]) Address [address] [place] [address] Care Team Providers Care Certified Pediatric Nurse Practitioner Name Role Phone Amie Pena MD Primary Care Provider [phone] Marvel Grayson MD Primary Care Provider [phone] Encounter Details Date Type Department Care Team (Late st Contact Info) Description 09/11/2020 Transcribed Document [facility] Family Medicine [address] [place] [address] ProviderMik MD [address] [place] [address] Social History Tobacco Use Types Packs/Day Years Used Date Smoking Tobacco: Never Assessed Comments Unknown Sex and Gender Information Value Date Recorded Sex Assigned at Not on file Legal Sex Female 6:09 PM CDT Gender Identity Not on file Sexual Orientation Not on file documented as of this encounter Miscellaneous Notes * Cerner Conversion Note - Historical ProviderMD - 09/11/2020 5:33 PM SUPERVISOR FARM EQUIPMENT MAINTENANCE Electronically signed by [place] [facility] Conversion Manager Market Development Cerner at 12/16/2022 10:39 AM CDT documented in this encounter Plan of Treatment Upcoming Encounters Date Type Department Care Team (Late st Contact Info) Description 11/03/2025 12:45 PM EST Office Visit [facility] Pulmonology - [address] [place] [address] Ben Barrios MD [address] [place] [address] documented as of this encounter Visit Diagnoses Not on filedocumented in this encounter Care Teams Certified Pediatric Nurse Practitioner Relationship Specialty Start Date End Date Amie Pena MD [address] [facility] [place] [address] PCP - General Family Medicine 10/31/22 04/08/23 Marvel Grayson MD [address] [place] [address] PCP - General Family Medicine 05/17/23 Marvel Grayson [address] [place] [address] Family Practice 04/09/23 documented as of this encounter
--- OUTSIDE RECORDS SUMMARY | 2025-07-02 14:07 | XMS_ITS | Encounter Summary ---
Author Organization [email or web address] ([place], [place], [place], [place]) Address [address] [place] [address] Care Team Providers Care Telephonic Nurse Case Manager Name Role Phone Amie Pena MD Primary Care Provider [phone] Marvel Grayson MD Primary Care Provider [phone] Encounter Details Date Type Department Care Team (Late st Contact Info) Description 09/11/2020 Transcribed Document [facility] Family Medicine [address] [place] [address] ProviderMik MD [address] [place] [address] Social History Tobacco Use Types Packs/Day Years Used Date Smoking Tobacco: Never Assessed Comments Unknown Sex and Gender Information Value Date Recorded Sex Assigned at Not on file Legal Sex Female 6:09 PM CDT Gender Identity Not on file Sexual Orientation Not on file documented as of this encounter Miscellaneous Notes * Cerner Conversion Note - Historical ProviderMD - 09/11/2020 5:33 PM SPLICING MACHINE OPERATOR AUTOMATIC Electronically signed by Geneva [facility] Conversion News Clerk Cerner at 12/16/2022 10:52 AM CDT documented in this encounter Plan of Treatment Upcoming Encounters Date Type Department Care Team (Late st Contact Info) Description 11/03/2025 12:45 PM EST Office Visit [facility] Pulmonology - [address] [place] [address] Ben Barrios MD [address] [place] [address] documented as of this encounter Visit Diagnoses Not on filedocumented in this encounter Care Teams Telephonic Nurse Case Manager Relationship Specialty Start Date End Date Amie Pena MD [address] [facility] [place] [address] PCP - General Family Medicine 10/31/22 04/08/23 Marvel Grayson MD [address] [place] [address] PCP - General Family Medicine 05/17/23 Marvel Grayson [address] [place] [address] Family Practice 04/09/23 documented as of this encounter
== END 2025-07-02 23:59 | disposition home or self-care (01) ==
LOC: RAD 13:50
PROVIDERS: PCP Internal Medicine; Visit Provider Internal Medicine
DX: N63.21 Unspecified lump in the left breast, upper outer quadrant (principal); R92.322 Mammographic fibroglandular density, left breast
CPT/HCPCS: 76641; 77061; 77065; G0279

== ENCOUNTER 2025-07-22 07:40 | Outpatient (CLI) | payer MEDICARE, MEDICAID, SELFPAY ==
--- OUTSIDE RECORDS SUMMARY | 2024-06-03 11:20 | XMS_ITS ---
Author Organization [facility] Address [address] [place] [address] Care Team Providers Care Traffic Director Name Role Phone Kenan CORONADO, Marvel Doyle [phone] REASON FOR VISIT 3 mon f/u Encounters Encounter Location Date Provider Diagnosis [address] [address] 06/03/2024 Marvel Grayson Plan Of Treatment No Information Progress Notes * Tiffanie SHABAZZDOB:1970 (54 yo F)Acc No.[id number]:06/03/2024 Progress Note Patient: Tiffanie Marinelli Provider: Mendoza Grayson M.D. :1970 A ge:53 Y S ex:Female Date:06/03/2024 Address:[address] [place], [place] [phone] Subjective: * Chief Complaints: * 3 mon f/u Care Plan Details* * Electronic signature of Alisson Grayson MD, MD on 07/22/2025 at 08:10 AM EST Sign off status: Pending * Provider: Mendoza Grayson M.D. Date: Generated for Sarabjit zavala/Taisha/eTransmitting on: 09/21/2024 08:10 AM EST
--- OUTSIDE RECORDS SUMMARY | 2024-06-26 08:30 | XMS_ITS ---
Author Organization [facility] Address [address] [place] [address] Care Team Providers Care Latex Ribbon Machine Operator Name Role Phone Kasie Grayson MDian Unavailable [phone] Results Component Value Reference Range Flag Notes CULTURE, URINE, ROUTINE Reviewed date:07/08/2024 11:14:31 AM Interpretation: Performing Lab:[id number], [id number] Walter Carias Notes/Report: Received Date: [id number] 0 0 CULTURE, URINE, ROUTINE See Note CULTURE, URINE, ROUTINE Micro Number: [id number] Test Status: Final Specimen Source: Urine Specimen Quality: Adequate Result: Mixed genital sigifredo isolated. These superficial bacteria are not indicative of a urinary tract infection. No further organism identification is warranted on this specimen. If clinically indicated, recollect clean-catch, mid-stream urine and transfer immediately to Urine Culture Transport Tube. URINALYSIS, REFLEX TO MICROS COPIC Reviewed date:07/08/2024 11:14:31 AM Interpretation: Performing Lab:[id number], [id number] Walter Carias Notes/Report: Received Date: [id number] 0 0 COLOR YELLOW YELLOW N APPEARANCE CLEAR CLEAR N SPECIFIC GRAVITY 1.015 1.001-1.035 N PH 7.0 5.0-8.0 N GLUCOSE NEGATIVE NEGATIVE N BILIRUBIN NEGATIVE NEGATIVE N KETONES NEGATIVE NEGATIVE N OCCULT BLOOD NEGATIVE NEGATIVE N PROTEIN NEGATIVE NEGATIVE N NITRITE NEGATIVE NEGATIVE N LEUKOCYTE ESTERASE NEGATIVE NEGATIVE N REASON FOR VISIT B 12 and urine drop Medications Medication SIG (Take, Route, Frequency, Duration) Notes Start Date End Date Status ASPIRIN 81 mg tablet, chewable 1 tab(s) chewed once a day; Duration: 30 day(s) Active ATORVASTATIN 80 mg tablet 1 tab(s) orally once a day; Duration: 90 days Active OMEPRAZOLE 40 mg delayed release capsule 1 cap(s) orally once a day; Duration: 90 days 10/30/2023 Active LORATADINE 10 mg tablet 1 tab(s) orally once a day; Duration: 90 days Active ONDANSETRON HYDROCHLORIDE 4 mg tablet, disintegrating 1 tab(s) orally every 6 hours; Duration: 10 days alternate with the phenergan 07/31/2023 Active PROVENTIL HFA 90 mcg/inh aerosol 2 puff(s) inhaled every 6 hours; Duration: 30 days 01/23/2023 Not-Taking/P RN ALBUTEROL 2.5 mg/3 mL (0.083%) solution 3 mL by nebulizer every 6 hours; Duration: 30 day(s) 02/14/2023 Not-Taking/P RN TRELEGY ELLIPTA 100 mcg-62.5 mcg-25 mcg/inh powder 1 puff(s) inhaled once a day; Duration: 90 days Active NITROSTAT 0.4 mg tablet 1 tab(s) sublingually every 5 minutes Active TIZANIDINE 2 mg tablet 1 tab orally bedtime prn; Duration: 90 days Not-Taking/P RN VITAMIN D3 125 mcg capsule 1 cap(s) orally once a day; Duration: 90 days 06/24/2024 Active GABAPENTIN 300 mg capsule 1 cap(s) orally 4 times a day Active TOPIRAMATE 25 mg tablet 1 tab(s) orally once a day Active FOLIC ACID 1 mg tablet 1 tab(s) orally once a day; Duration: 90 days 06/24/2024 Active METOPROLOL TARTRATE 25 mg tablet 1/2 tab(s) orally 2 times a day Active ACETAMINOPHEN-HYDROC ODONE 325 mg-7.5 mg tablet 1 tab(s) orally 5 times per day Active CLONAZEPAM 0.5 mg tablet 0.5 tab(s) orally 2 times a day; Duration: 28 days 06/20/2024 Active Encounters Encounter Location Date Provider Diagnosis [address] [address] 06/26/2024 Marvel Grayson Biliuria R82.2 and Vitamin B12 deficiency 266.2 Assessments Encounter Date Diagnosis (ICD Code) Assessment Notes Treatment Notes Treatment Clinical Notes Section Notes 06/26/2024 Biliuria (ICD-10 - R82.2) 06/26/2024 Vitamin B12 deficiency (ICD9-CM - 266.2) Plan Of Treatment Next Appt Details Follow Up: prn, Reason: Medications Administered Medication Instructions Date of Administration Dosage Notes Vitamin B 12 Injection 06/26/2024 1 mL Progress Notes * SHABAZZ Tiffanie ArreguinDOB:1970 (54 yo F)Acc No.[id number]:06/26/2024 Progress Note Patient: Tiffanie Marinelli Provider: Mendoza Grayson M.D. :1970 A ge:53 Y S ex:Female Date:06/26/2024 Address:[address] [place] [address] Subjective: * Chief Complaints: * B 12 and urine drop * Medications: T akingMETOPROLOL TARTRATE 25 mg tablet 1/2 tab(s) orally 2 times a day GABAPENTIN 300 mg capsule 1 cap(s) orally 4 times a day TOPIRAMATE 25 mg tablet 1 tab(s) orally once a day NITROSTAT 0.4 mg tablet 1 tab(s) sublingually every 5 minutes TRELEGY ELLIPTA 100 mcg-62.5 mcg-25 mcg/inh powder 1 puff(s) inhaled once a day ASPIRIN 81 mg tablet, chewable 1 tab(s) chewed once a day ATORVASTATIN 80 mg tablet 1 tab(s) orally once a day OMEPRAZOLE 40 mg delayed release capsule 1 cap(s) orally once a day LORATADINE 10 mg tablet 1 tab(s) orally once a day ONDANSETRON HYDROCHLORIDE 4 mg tablet, disintegrating 1 tab(s) orally every 6 hours , Notes to Pharmacist: alternate with the phenerganACETAMINOPHEN-HYDROCODONE 325 mg-7.5 mg tablet 1 tab(s) orally 5 times per day CLONAZEPAM 0.5 mg tablet 0.5 tab(s) orally 2 times a day FOLIC ACID 1 mg tablet 1 tab(s) orally once a day VITAMIN D3 125 mcg capsule 1 cap(s) orally once a day Taking METOPROLOL TARTRATE 25 mg tablet 1/2 tab(s) orally 2 times a day Taking GABAPENTIN 300 mg capsule 1 cap(s) orally 4 times a day Taking TOPIRAMATE 25 mg tablet 1 tab(s) orally once a day Taking NITROSTAT 0.4 mg tablet 1 tab(s) sublingually every 5 minutes Taking TRELEGY ELLIPTA 100 mcg-62.5 mcg-25 mcg/inh powder 1 puff(s) inhaled once a day Taking ASPIRIN 81 mg tablet, chewable 1 tab(s) chewed once a day Taking ATORVASTATIN 80 mg tablet 1 tab(s) orally once a day Taking OMEPRAZOLE 40 mg delayed release capsule 1 cap(s) orally once a day Taking LORATADINE 10 mg tablet 1 tab(s) orally once a day Taking ONDANSETRON HYDROCHLORIDE 4 mg tablet, disintegrating 1 tab(s) orally every 6 hours , Notes to Pharmacist: alternate with the phenerganTaking ACETAMINOPHEN-HYDROCODONE 325 mg-7.5 mg tablet 1 tab(s) orally 5 times per day Taking CLONAZEPAM 0.5 mg tablet 0.5 tab(s) orally 2 times a day Taking FOLIC ACID 1 mg tablet 1 tab(s) orally once a day Taking VITAMIN D3 125 mcg capsule 1 cap(s) orally once a day Not-Taking/PRNTIZANIDINE 2 mg tablet 1 tab orally bedtime prn PROVENTIL HFA 90 mcg/inh aerosol 2 puff(s) inhaled every 6 hours ALBUTEROL 2.5 mg/3 mL (0.083%) solution 3 mL by nebulizer every 6 hours Not-Taking/PRN TIZANIDINE 2 mg tablet 1 tab orally bedtime prn Not-Taking/PRN PROVENTIL HFA 90 mcg/inh aerosol 2 puff(s) inhaled every 6 hours Not-Taking/PRN ALBUTEROL 2.5 mg/3 mL (0.083%) solution 3 mL by nebulizer every 6 hours Assessment: * Assessment: 1. V itamin B12 deficiency - 266.2 (Primary) 2 . B iliuria - R82.2 ? Plan: * Treatment: * Therapeutic Injections: Vitamin B 12 Injection : 1 mL (Route: Intramuscular) given by Jose Elias Bingham on left deltoid * Labs: * L ab: CULTURE, URINE, ROUTINE (Collection Date & Time - 06/26/2024 02:04 PM) Value Reference Range C ULTURE See Note - ?Lab: URINALYSIS, REFLEX TO MICROSCOPIC (Collection Date & Time - 06/26/2024 02:04 PM)* Value Reference Range C OLOR YELLOW YELLOW - * A PPEARANCE CLEAR CLEAR - * B ILIRUBIN NEGATIVE NEGATIVE - * K ETONES NEGATIVE NEGATIVE - * S PECIFIC GRAVITY 1.015 1.001-1.035 - * O CCULT BLOOD NEGATIVE NEGATIVE - * P H 7.0 5.0-8.0 - * P ROTEIN NEGATIVE NEGATIVE - * N ITRITE NEGATIVE NEGATIVE - * L EUKOCYTE ESTERASE NEGATIVE NEGATIVE - * G LUCOSE NEGATIVE NEGATIVE - * Procedure Codes: J 3420 Vitamin B-8758035 Therapeutic Injection * Follow Up: [facility] Billing Information: * Procedure Codes: J3420 Vitamin B-12. 30439 Therapeutic Injection. * Electronic signature of Alisson Grayson MD, on 07/22/2025 at 08:04 AM EST Sign off status: Pending * Provider: Mendoza Grayson M.D. Date: Generated for Sarabjit zavala/Taisha/Angelicaransmitting on: 09/21/2024 08:04 AM EST
--- OUTSIDE RECORDS SUMMARY | 2024-07-02 09:20 | XMS_ITS ---
Author Organization [facility] Address [address] [place] [address] Care Team Providers Care Labor Delivery Rn Name Role Phone Marvel Grayson MD Unavailable [phone] REASON FOR VISIT B12 Medications Medication SIG (Take, Route, Frequency, Duration) Notes Start Date End Date Status TRELEGY ELLIPTA 100 mcg-62.5 mcg-25 mcg/inh powder 1 puff(s) inhaled once a day; Duration: 90 days Active LORATADINE 10 mg tablet 1 tab(s) orally once a day; Duration: 90 days Active OMEPRAZOLE 40 mg delayed release capsule 1 cap(s) orally once a day; Duration: 90 days 10/30/2023 Active ATORVASTATIN 80 mg tablet 1 tab(s) orally once a day; Duration: 90 days Active ASPIRIN 81 mg tablet, chewable 1 tab(s) chewed once a day; Duration: 30 day(s) Active PROVENTIL HFA 90 mcg/inh aerosol 2 puff(s) inhaled every 6 hours; Duration: 30 days 01/23/2023 Not-Taking/P RN TIZANIDINE 2 mg tablet 1 tab orally bedtime prn; Duration: 90 days Not-Taking/P RN ALBUTEROL 2.5 mg/3 mL (0.083%) solution 3 mL by nebulizer every 6 hours; Duration: 30 day(s) 02/14/2023 Not-Taking/P RN NITROSTAT 0.4 mg tablet 1 tab(s) sublingually every 5 minutes Active TOPIRAMATE 25 mg tablet 1 tab(s) orally once a day Active VITAMIN D3 125 mcg capsule 1 cap(s) orally once a day; Duration: 90 days 06/24/2024 Active FOLIC ACID 1 mg tablet 1 tab(s) orally once a day; Duration: 90 days 06/24/2024 Active GABAPENTIN 300 mg capsule 1 cap(s) orally 4 times a day Active METOPROLOL TARTRATE 25 mg tablet 1/2 tab(s) orally 2 times a day Active CLONAZEPAM 0.5 mg tablet 0.5 tab(s) orally 2 times a day; Duration: 28 days 06/20/2024 Active ONDANSETRON HYDROCHLORIDE 4 mg tablet, disintegrating 1 tab(s) orally every 6 hours; Duration: 10 days alternate with the phenergan 07/31/2023 Active ACETAMINOPHEN-HYDROC ODONE 325 mg-7.5 mg tablet 1 tab(s) orally 5 times per day Active Encounters Encounter Location Date Provider Diagnosis [address] [address] 07/02/2024 Marvel Grayson Vitamin B12 deficien cy anemia, unspecified D51.9 Assessments Encounter Date Diagnosis (ICD Code) Assessment Notes Treatment Notes Treatment Clinical Notes Section Notes 07/02/2024 Vitamin B12 deficiency anemia, unspecified (ICD-10 - D51.9) Plan Of Treatment Next Appt Details Follow Up: 1 Week, Reason: Medications Administered Medication Instructions Date of Administration Dosage Notes Vitamin B 12 Injection 07/02/2024 1 mL Progress Notes * Tiffanie SHABAZZDOB:1970 (54 yo F)Acc No.[id number]:07/02/2024 Progress Note Patient: Tiffanie Marinelli Provider: Mendoza Grayson M.D. :1970 A ge:53 Y S ex:Female Date:07/02/2024 Address:[address] [place], [place] [phone] Subjective: * Chief Complaints: * B 12 * Medications: T akingMETOPROLOL TARTRATE 25 mg [...] * Assessment: 1. V itamin B12 deficiency anemia, unspecified - D51.9 (Primary) Plan: * Therapeutic Injections: Vitamin B 12 Injection : 1 mL (Route: Intramuscular) given by Cynthia Alonzo on left deltoid * Procedure Codes: J 3420 Vitamin B-3086571 Therapeutic Injection * Follow Up: 1 Week Billing Information: * Procedure Codes: J3420 Vitamin B-12. 34788 Therapeutic Injection. * Electronic signature of Alisson Grayson MD, on 07/22/2025 at 07:53 AM EST Sign off status: Pending * Provider: Mendoza Grayson M.D. Date: Generated for Sarabjit zavala/Taisha/Abelino on: 09/21/2024 07:53 AM EST
--- OUTSIDE RECORDS SUMMARY | 2024-07-17 09:10 | XMS_ITS ---
Author Organization [facility] Address [address] [place] [address] Care Team Providers Care Properties Supervisor Name Role Phone Marvel Grayson MD Unavailable [phone] REASON FOR VISIT B12 Medications Medication SIG (Take, Route, Frequency, Duration) Notes Start Date End Date Status NITROSTAT 0.4 mg tablet 1 tab(s) sublingually every 5 minutes Active TIZANIDINE 2 mg tablet 1 tab orally bedtime prn; Duration: 90 days Not-Taking/P RN PROVENTIL HFA 90 mcg/inh aerosol 2 puff(s) inhaled every 6 hours; Duration: 30 days 01/23/2023 Not-Taking/P RN GABAPENTIN 300 mg capsule 1 cap(s) orally 4 times a day Active TOPIRAMATE 25 mg tablet 1 tab(s) orally once a day Active ACETAMINOPHEN-HYDROC ODONE 325 mg-7.5 mg tablet 1 tab(s) orally 5 times per day Active CLONAZEPAM 0.5 mg tablet 0.5 tab(s) orally 2 times a day; Duration: 28 days 06/20/2024 Active FOLIC ACID 1 mg tablet 1 tab(s) orally once a day; Duration: 90 days 06/24/2024 Active VITAMIN D3 125 mcg capsule 1 cap(s) orally once a day; Duration: 90 days 06/24/2024 Active METOPROLOL TARTRATE 25 mg tablet 1/2 tab(s) orally 2 times a day Active ASPIRIN 81 mg tablet, chewable 1 [...] days alternate with the phenergan 07/31/2023 Active ALBUTEROL 2.5 mg/3 mL (0.083%) solution 3 mL by nebulizer every 6 hours; Duration: 30 day(s) 02/14/2023 Not-Taking/P RN TRELEGY ELLIPTA 100 mcg-62.5 mcg-25 mcg/inh powder 1 puff(s) inhaled once a day; Duration: 90 days Active Encounters Encounter Location Date Provider Diagnosis [address] [address] 07/17/2024 Marvel Grayson Vitamin B12 deficiency anemia due to intrinsic factor deficiency D51.0 Assessments Encounter Date Diagnosis (ICD Code) Assessment Notes Treatment Notes Treatment Clinical Notes Section Notes 07/17/2024 Vitamin B12 deficiency anemia due to intrinsic factor deficiency (ICD-10 - D51.0) Plan Of Treatment Next Appt Details Follow Up: prn, Reason: Medications Administered Medication Instructions Date of Administration Dosage Notes Vitamin B 12 Injection 07/17/2024 1 mL Progress Notes * Tiffanie SHABAZZDOB:1970 (54 yo F)Acc No.[id number]:07/17/2024 Progress Note Patient: Tiffanie Marinelli Provider: Mendoza Grayson M.D. :1970 A ge:53 Y S ex:Female Date:07/17/2024 Address:[address] [place], [place] [phone] Subjective: * Chief Complaints: * B 12 [...] * Assessment: 1. V itamin B12 deficiency anemia due to intrinsic factor deficiency - D51.0 (Primary) ? Plan: * Therapeutic Injections: Vitamin B 12 Injection : 1 mL (Route: Intramuscular) given by Jose Elias Bingham on left deltoid * Procedure Codes: J 3420 Vitamin B-7286604 Therapeutic Injection * Follow Up: [facility] Billing Information: * Procedure Codes: J3420 Vitamin B-12. 30768 Therapeutic Injection. * Electronic signature of Alisson Grayson MD, on 07/22/2025 at 08:11 AM EST Sign off status: Pending * Provider: Mendoza Grayson M.D. Date: 09/16/2023 Generated for Sarabjit zavala/Taisha/Roseanneitting on: 09/21/2024 08:11 AM EST
--- OUTSIDE RECORDS SUMMARY | 2024-07-21 10:30 | XMS_ITS ---
Author Organization [facility] Address [address] [place] [address] Care Team Providers Care Shoe Clerk Name Role Phone Marvel Grayson MD Unavailable [phone] REASON FOR VISIT b12 Medications Medication SIG (Take, Route, Frequency, Duration) Notes Start Date End Date Status METOPROLOL TARTRATE 25 mg tablet 1/2 tab(s) orally 2 times a day Active GABAPENTIN 300 mg capsule 1 cap(s) orally 4 times a day Active VITAMIN D3 125 mcg capsule 1 cap(s) orally once a day; Duration: 90 days 06/24/2024 Active FOLIC ACID 1 mg tablet 1 tab(s) orally once a day; Duration: 90 days 06/24/2024 Active TOPIRAMATE 25 mg tablet 1 tab(s) orally once a day Active LORATADINE 10 mg tablet 1 tab(s) orally once a day; Duration: 90 days Active ONDANSETRON HYDROCHLORIDE 4 mg tablet, disintegrating 1 tab(s) orally every 6 hours; Duration: 10 days alternate with the phenergan 07/31/2023 Active OMEPRAZOLE 40 mg delayed release capsule 1 cap(s) orally once a day; Duration: 90 days 10/30/2023 Active ACETAMINOPHEN-HYDROC ODONE 325 mg-7.5 mg tablet 1 tab(s) orally 5 times per day Active CLONAZEPAM 0.5 mg tablet 0.5 tab(s) orally 2 times a day; Duration: 28 days 06/20/2024 Active ATORVASTATIN 80 mg tablet 1 tab(s) orally once a day; Duration: 90 days Active TRELEGY ELLIPTA 100 mcg-62.5 mcg-25 mcg/inh powder [...] hours; Duration: 30 day(s) 02/14/2023 Not-Taking/P RN TIZANIDINE 2 mg tablet 1 tab orally bedtime prn; Duration: 90 days Not-Taking/P RN NITROSTAT 0.4 mg tablet 1 tab(s) sublingually every 5 minutes Active Problems Problem Type SNOMED Code ICD Code Onset Dates Problem Status W/U Status Risk Notes Problem Vitamin B>12< deficiency anaemia (34017285) Vitamin B12 deficiency anemia, unspecified (D51.9) Active confirmed Encounters Encounter Location Date Provider Diagnosis [address] [address] 07/21/2024 Marvel Grayson Vitamin B12 deficien cy anemia, unspecified D51.9 Assessments Encounter Date Diagnosis (ICD Code) Assessment Notes Treatment Notes Treatment Clinical Notes Section Notes 07/21/2024 Vitamin B12 deficiency anemia, unspecified (ICD-10 - D51.9) Plan Of Treatment Next Appt Details Follow Up: prn, Reason: Medications Administered Medication Instructions Date of Administration Dosage Notes Vitamin B 12 Injection 07/21/2024 1 mL Progress Notes * Tiffanie SHABAZZDOB:1970 (54 yo F)Acc No.[id number]:07/21/2024 Progress Note Patient: Tiffanie Marinelli Provider: Mendoza Grayson M.D. :1970 A ge:53 Y S ex:Female Date:07/21/2024 Address:[address] [place], [place] [phone] Subjective: * Chief Complaints: * B 12 [...] deltoid * Procedure Codes: J 3420 Vitamin B-8198929 Therapeutic Injection * Follow Up: p rn Billing Information: * Procedure Codes: J3420 Vitamin B-12. 38434 Therapeutic Injection. * Electronic signature of Alisson Grayson MD, MD on 07/22/2025 at 07:51 AM EST Sign off status: Pending * Provider: Mendoza Grayson M.D. Date: 09/20/2023 Generated for Sarabjit Fry/Abelino on: 09/21/2024 07:51 AM EST
--- OUTSIDE RECORDS SUMMARY | 2024-11-13 06:30 | XMS_ITS ---
Author Organization [employer] [facility] Address [address] [place] [address] Care Team Providers Care Fagoting Machine Operator Name Role Phone Marvel Grayson MD Unavailable [phone] REASON FOR VISIT B12 Medications Medication SIG (Take, Route, Frequency, Duration) Notes Start Date End Date Status ATORVASTATIN 80 mg tablet 1 tab(s) orally once a day; Duration: 90 days Active BUDESONIDE 1 mg/2 mL suspension 2 mL by nebulizer 2 times a day; Duration: 30 days 09/16/2024 Active PROVENTIL HFA 90 mcg/inh aerosol 2 puff(s) inhaled every 6 hours; Duration: 30 days 01/23/2023 Not-Taking/P RN DEXTROMETHORPHAN-PRO METHAZINE 15 mg-6.25 mg/5 mL syrup 5 mL orally every 6 hours; Duration: 15 days 09/16/2024 Active ALBUTEROL 2.5 mg/3 mL (0.083%) solution 3 mL by nebulizer every 6 hours; Duration: 30 day(s) 02/14/2023 Not-Taking/P RN FOLIC ACID 1 mg tablet 1 tab(s) orally once a day; Duration: 90 days 06/24/2024 Active ACETAMINOPHEN-HYDROC ODONE 325 mg-10 mg tablet 1 tab(s) orally every 6 hours Active ONDANSETRON HYDROCHLORIDE 4 mg tablet, disintegrating 1 tab(s) orally every 6 hours; Duration: 10 days alternate with the phenergan 07/31/2023 Active TIZANIDINE 2 mg tablet 1 tab orally bedtime prn; Duration: 90 days Not-Taking/P RN VITAMIN D3 125 mcg capsule 1 cap(s) orally once a day; Duration: 90 days 06/24/2024 Active OMEPRAZOLE 40 mg delayed release capsule 1 cap(s) orally once a day; Duration: 90 days 10/30/2023 Active ASPIRIN 81 mg tablet, chewable 1 tab(s) chewed once a day; Duration: 30 day(s) Active LORATADINE 10 mg tablet 1 tab(s) orally once a day; Duration: 90 days Active TRELEGY ELLIPTA 100 mcg-62.5 mcg-25 mcg/inh powder 1 puff(s) inhaled once a day; Duration: 90 days Active NITROSTAT 0.4 mg tablet 1 tab(s) sublingually every 5 minutes Active MELOXICAM 15 mg tablet 1 tab(s) orally once a day Active OXYGEN CONCENTRATOR 3 LITER, 1 overnight, 2-3 liters via NC Active METOPROLOL TARTRATE 25 mg tablet 1/2 tab(s) orally 2 times a day Active TOPIRAMATE 25 mg tablet 1 tab(s) orally once a day Active GABAPENTIN 300 mg capsule 1 cap(s) orally 4 times a day Active CLONAZEPAM 0.5 mg tablet 0.5 tab(s) orally 2 times a day; Duration: 28 days 09/16/2024 Active Encounters Encounter Location Date Provider Diagnosis [address] [address] 11/13/2024 Marvel Grayson Vitamin B12 deficien cy anemia, unspecified D51.9 Assessments Encounter Date Diagnosis (ICD Code) Assessment Notes Treatment Notes Treatment Clinical Notes Section Notes 11/13/2024 Vitamin B12 deficiency anemia, unspecified (ICD-10 - D51.9) Plan Of Treatment Next Appt Details Follow Up: prn, Reason: Medications Administered Medication Instructions Date of Administration Dosage Notes Vitamin B 12 Injection 11/13/2024 1 mL Progress Notes * Tiffanie SHABAZZDOB:1970 (54 yo F)Acc No.[id number]:11/13/2024 Progress Note Patient: Tiffanie Marinelli Provider: Mendoza Grayson M.D. :1970 A ge:54 Y S ex:Female Date:11/13/2024 Address:[address] [place], [place] [id number] Subjective: * Chief Complaints: * B 12 * Medications: T akingBUDESONIDE 1 mg/2 mL suspension 2 mL by nebulizer 2 times a day CLONAZEPAM 0.5 mg tablet 0.5 tab(s) orally 2 times a day OXYGEN CONCENTRATOR 3 LITER, 1 overnight, 2-3 liters via NC MELOXICAM 15 mg tablet 1 tab(s) orally once a day METOPROLOL TARTRATE 25 mg tablet 1/2 tab(s) [...] chewable 1 tab(s) chewed once a day OMEPRAZOLE 40 mg delayed release capsule 1 cap(s) orally once a day LORATADINE 10 mg tablet 1 tab(s) orally once a day ONDANSETRON HYDROCHLORIDE 4 mg tablet, disintegrating 1 tab(s) orally every 6 hours , Notes to Pharmacist: alternate with the phenerganACETAMINOPHEN-HYDROCODONE 325 mg-10 mg tablet 1 tab(s) orally every 6 hours FOLIC ACID 1 mg tablet 1 tab(s) orally once a day VITAMIN D3 125 mcg capsule 1 cap(s) orally once a day DEXTROMETHORPHAN- PROMETHAZINE 15 mg-6.25 mg/5 mL syrup 5 mL orally every 6 hours ATORVASTATIN 80 mg tablet 1 tab(s) orally once a day Taking BUDESONIDE 1 mg/2 mL suspension 2 mL by nebulizer 2 times a day Taking CLONAZEPAM 0.5 mg tablet 0.5 tab(s) orally 2 times a day Taking OXYGEN CONCENTRATOR 3 LITER, 1 overnight, 2-3 liters via NC Taking MELOXICAM 15 mg tablet 1 tab(s) orally once a day Taking METOPROLOL TARTRATE [...] 1 tab(s) chewed once a day Taking OMEPRAZOLE 40 mg delayed release capsule 1 cap(s) orally once a day Taking LORATADINE 10 mg tablet 1 tab(s) orally once a day Taking ONDANSETRON HYDROCHLORIDE 4 mg tablet, disintegrating 1 tab(s) orally every 6 hours , Notes to Pharmacist: alternate with the phenerganTaking ACETAMINOPHEN- HYDROCODONE 325 mg-10 mg tablet 1 tab(s) orally every 6 hours Taking FOLIC ACID 1 mg tablet 1 tab(s) orally once a day Taking VITAMIN D3 125 mcg capsule 1 cap(s) orally once a day Taking DEXTROMETHORPHAN-PROMETHAZINE 15 mg-6.25 mg/5 mL syrup 5 mL orally every 6 hours Taking ATORVASTATIN 80 mg tablet 1 tab(s) orally once a day Not- Taking/PRNTIZANIDINE 2 mg tablet 1 tab orally bedtime prn PROVENTIL HFA 90 mcg/inh aerosol 2 puff(s) inhaled every 6 hours ALBUTEROL 2.5 mg/3 mL (0.083%) solution 3 mL by nebulizer every 6 hours Not-Taking/PRN TIZANIDINE 2 mg tablet 1 tab orally bedtime prn Not- Taking/PRN PROVENTIL HFA 90 mcg/inh aerosol 2 puff(s) [...] deltoid * Procedure Codes: J 3420 Vitamin B-[id number] Therapeutic Injection * Follow Up: p clinton Billing Information: * Procedure Codes: J3420 Vitamin B-12. 57583 Therapeutic Injection. * Electronic signature of Alisson Grayson MD, MD on 07/22/2025 at 08:00 AM EST Sign off status: Pending * Provider: Mendoza Grayson M.D. Date: 0 11/13/2024 Generated for Sarabjit zavala/Taisha/Abelino on: 09/21/2024 08:00 AM EST
--- OUTSIDE RECORDS SUMMARY | 2025-02-07 16:30 | XMS_ITS ---
Author Organization [employer] [facility] Address [address] [place] [address] Care Team Providers Care Garbage Truck Helper Name Role Phone Migration, Provider Unavailable Unavailable Allergies Allergen (clinical drug ingredient) Drug/Non Drug Allergy documented on EMR Reaction Allergy Type Onset Date Status cariprazine Vraylar Unknown Drug Allergy Activ e duloxetine Cymbalta Unknown Drug Allergy Active doxycycline Doxycycline stomach upset Drug Allergy Active codeine Codeine anaphylaxis Drug Allergy Activ e Haldol anaphylaxis Drug Allergy Activ e tramadol Ultram anaphylaxis Drug Allergy Activ e REASON FOR VISIT [facility] Encounter Medications Medication SIG (Take, Route, Frequency, Duration) Notes Start Date End Date Status Atorvastatin Calcium 80 MG Tablet 1 tab(s) orally once a day; Duration: 90 days Active Promethazine-DM 6.25-15 MG/5ML Syrup 5 mL orally every 6 hours; Duration: 15 days 09/16/2024 Active tiZANidine HCl 2 MG Tablet 1 tab orally bedtime prn; Duration: 90 days Not-Taking/ PRN Albuterol Sulfate (2.5 MG/3ML) 0.083% Nebulization Solution 3 mL by nebulizer every 6 hours; Duration: 30 day(s) 02/14/2023 Not-Taking/ PRN Proventil HFA 90 MCG/INH AEROSOL 2 PUFF(S) INHALED EVERY 6 HOURS; Duration: 30 DAYS *Please review and pick correct strength-formulat ion from [facility]. If intended option is not shown, discontinue and re-order from Quick Search* 01/23/2023 Not-Taking/ PRN Vitamin D3 125 MCG CAPSULE 1 CAP(S) ORALLY ONCE A DAY; Duration: 90 DAYS *Please review and pick correct strength-formulat ion from [employer] options. If intended option is not shown, discontinue and re-order from Quick Search* 06/24/2024 Active Ondansetron 4 MG Tablet Disintegrating 1 tab(s) orally every 6 hours; Duration: 10 days alternate with the phenergan 07/31/2023 Active Loratadine 10 MG Tablet 1 tab(s) orally once a day; Duration: 90 days Active Folic Acid 1 MG Tablet 1 tab(s) orally once a day; Duration: 90 days 06/24/2024 Active HYDROcodone-Acetamin ophen 10-325 MG Tablet 1 tab(s) orally every 6 hours Active Aspirin 81 MG Tablet Chewable 1 tab(s) chewed once a day; Duration: 30 day(s) Active Trelegy Ellipta 100 MCG-62.5 MCG-25 MCG/INH POWDER 1 PUFF(S) INHALED ONCE A DAY; Duration: 90 DAYS *Please review and pick correct strength-formulat ion from [employer] options. If intended option is not shown, discontinue and re-order from Quick Search* Active Omeprazole 40 MG Capsule Delayed Release 1 cap(s) orally once a day; Duration: 90 days 10/30/2023 Active Nitrostat 0.4 MG Tablet Sublingual 1 tab(s) sublingually every 5 minutes Active Topiramate 25 MG Tablet 1 tab(s) orally once a day Active Gabapentin 300 MG Capsule 1 cap(s) orally 4 times a day Active Metoprolol Tartrate 25 MG Tablet 1/2 tab(s) orally 2 times a day Active clonazePAM 0.5 MG Tablet 0.5 tab(s) orally 2 times a day; Duration: 28 days 09/16/2024 Active Meloxicam 15 MG Tablet 1 tab(s) orally once a day Active OXYGEN CONCENTRATOR 3 LITER, 1 OVERNIGHT, 2-3 LITERS VIA NC *Please review for potential replacement for e-prescription and drug interaction check* Active Budesonide 1 MG/2ML Suspension 2 mL by nebulizer 2 times a day; Duration: 30 days 09/16/2024 Active Encounters Encounter Location Date Provider Diagnosis [address] [place] [address] 02/07/2025 Provider Migration Plan Of Treatment No Information Progress Notes * Tiffanie GRANTDOB:1970 (54 yo F)Acc No.[id number]:02/07/2025 Patient: Tiffanie Marinelli Provider: :1970 A ge:54 Y S ex:Female Date:02/07/2025 Address:[address] [place] [address] Subjective: * Chief Complaints: * [facility] En[facility] * Medications: T akingBudesonide 1 MG/2ML Suspension 2 mL by nebulizer 2 times a day clonazePAM 0.5 MG Tablet 0.5 tab(s) orally 2 times a day OXYGEN CONCENTRATOR 3 LITER, 1 OVERNIGHT, 2-3 LITERS VIA NC , Notes to Pharmacist: *Please review for potential replacement for e-prescription and drug interaction check*Meloxicam 15 MG Tablet 1 tab(s) orally once a day Metoprolol Tartrate 25 MG Tablet 1/2 tab(s) orally 2 times a day Gabapentin 300 MG Capsule 1 cap(s) orally 4 times a day Topiramate 25 MG Tablet 1 tab(s) orally once a day Nitrostat 0.4 MG Tablet Sublingual 1 tab(s) sublingually every 5 minutes Trelegy Ellipta 100 MCG-62.5 MCG-25 MCG/INH POWDER 1 PUFF(S) INHALED ONCE A DAY , Notes to Pharmacist: *Please review and pick correct strength-formulation from [employer] options. If intended option is not shown, discontinue and re-order from Quick Search*Aspirin 81 MG Tablet Chewable 1 tab(s) chewed once a day Omeprazole 40 MG Capsule Delayed Release 1 cap(s) orally once a day Loratadine 10 MG Tablet 1 tab(s) orally once a day Ondansetron 4 MG Tablet Disintegrating 1 tab(s) orally every 6 hours , Notes to Pharmacist: alternate with the phenerganHYDROcodone- Acetaminophen 10-325 MG Tablet 1 tab(s) orally every 6 hours Folic Acid 1 MG Tablet 1 tab(s) orally once a day Vitamin D3 125 MCG CAPSULE 1 CAP(S) ORALLY ONCE A DAY , Notes to Pharmacist: *Please review and pick correct strength-formulation from [employer] options. If intended option is not shown, discontinue and re-order from Quick Search*Promethazine-DM 6.25-15 MG/5ML Syrup 5 mL orally every 6 hours Atorvastatin Calcium 80 MG Tablet 1 tab(s) orally once a day Taking Budesonide 1 MG/2ML Suspension 2 mL by nebulizer 2 times a day Taking clonazePAM 0.5 MG Tablet 0.5 tab(s) orally 2 times a day Taking OXYGEN CONCENTRATOR 3 LITER, 1 OVERNIGHT, 2-3 LITERS VIA NC , Notes to Pharmacist: *Please review for potential replacement for e-prescription and drug interaction check*Taking Meloxicam 15 MG Tablet 1 tab(s) orally once a day Taking Metoprolol Tartrate 25 MG Tablet 1/2 tab(s) orally 2 times a day Taking Gabapentin 300 MG Capsule 1 cap(s) orally 4 times a day Taking Topiramate 25 MG Tablet 1 tab(s) orally once a day Taking Nitrostat 0.4 MG Tablet Sublingual 1 tab(s) sublingually every 5 minutes Taking Trelegy Ellipta 100 MCG-62.5 MCG-25 MCG/INH POWDER 1 PUFF(S) INHALED ONCE A DAY , Notes to Pharmacist: *Please review and pick correct strength-formulation from [employer] options. If intended option is not shown, discontinue and re-order from Quick Search*Taking Aspirin 81 MG Tablet Chewable 1 tab(s) chewed once a day Taking Omeprazole 40 MG Capsule Delayed Release 1 cap(s) orally once a day Taking Loratadine 10 MG Tablet 1 tab(s) orally once a day Taking Ondansetron 4 MG Tablet Disintegrating 1 tab(s) orally every 6 hours , Notes to Pharmacist: alternate with the phenerganTaking HYDROcodone-Acetaminophen 10-325 MG Tablet 1 tab(s) orally every 6 hours Taking Folic Acid 1 MG Tablet 1 tab(s) orally once a day Taking Vitamin D3 125 MCG CAPSULE 1 CAP(S) ORALLY ONCE A DAY , Notes to Pharmacist: *Please review and pick correct strength-formulation from [employer] options. If intended option is not shown, discontinue and re-order from Quick Search*Taking Promethazine-DM 6.25-15 MG/5ML Syrup 5 mL orally every 6 hours Taking Atorvastatin Calcium 80 MG Tablet 1 tab(s) orally once a day Not- Taking/PRNtiZANidine HCl 2 MG Tablet 1 tab orally bedtime prn Proventil HFA 90 MCG/INH AEROSOL 2 PUFF(S) INHALED EVERY 6 HOURS , Notes to Pharmacist: *Please review and pick correct strength-formulation from [employer] options. If intended option is not shown, discontinue and re-order from Quick Search*Albuterol Sulfate (2.5 MG/3ML) 0.083% Nebulization Solution 3 mL by nebulizer every 6 hours Not-Taking/PRN tiZANidine HCl 2 MG Tablet 1 tab orally bedtime prn Not-Taking/PRN Proventil HFA 90 MCG/INH AEROSOL 2 PUFF(S) INHALED EVERY 6 HOURS , Notes to Pharmacist: *Please review and pick correct strength-formulation from [employer] options. If intended option is not shown, discontinue and re-order from Quick Search*Not-Taking/PRN Albuterol Sulfate (2.5 MG/3ML) 0.083% Nebulization Solution 3 mL by nebulizer every 6 hours * Allergies: C odeine: anaphylaxisUltram: anaphylaxisHaldol: anaphylaxisCymbalta: Side EffectsVraylar: Side EffectsDoxycycline: stomach upset * Electronic signature of Prov ider Migration on 07/22/2025 at 07:46 AM EST Sign off status: Pending * Provider: Date: 0 02/07/2025 Generated for Sarabjit zavala/Taisha/Abelino on: 09/21/2024 07:46 AM EST
--- OUTSIDE RECORDS SUMMARY | 2025-05-28 12:45 | XMS_ITS | Encounter Summary ---
Author Organization [employer] ([place], [place], [place], [place], [place]) Address [address] [place] [address] Care Team Providers Care Foundry Finisher Name Role Phone Marvel Grayson MD Primary Care Provider [phone] Reason for Referral * Diagnostic X-Ray (Routine) - Closed Specialty Diagnoses / Procedures Referred By Cherelle balderas Referred To Contact Radiology Diagnoses Community acquired bacterial pneumonia Procedures X-ray chest PA and lateral Ben Barrios MD [address] [facility] [address] [place] [address] Phone: tel: fax: [facility] Diagnostic Imaging - [facility] [address] [facility] [address] [place] [address] Phone: tel: fax: Referral ID Status Reason Start Date Expiration Date Visits Re quested Visits Authorized [id number] Closed 05/28/2025 05/28/2026 1 1 * CAT Scan (Routine) - New Request Specialty Diagnoses / Procedures Referred By Cherelle balderas Referred To Contact Radiology Diagnoses Pulmonary nodules/lesions, multiple Procedures CT CHEST WITHOUT IV CONTRAST Ben Barrios MD [address] [facility] [address] [place] [address] Phone: tel: fax: [facility] Imaging CT - [facility] [address] [facility] [address] [place] [address] Phone: tel: fax: Referral ID Status Reason Start Date Expiration Date V isits Requested Visits Authorized [id number] New Request 11/02/2025 11/18/2026 1 1 Reason for Visit * Reason Comments Shortness of Breath Cough Chest Pain Patient returns for COPD and nodule f/u. She uses 2 liters of Oxygen at night. Today she isn't feeling well, has cough/soa/chest discomfort/wheezing some. Encounter Details Date Type Department Care Team (Late st Contact Info) Description 05/28/2025 1:45 PM EDT Office Visit [facility] Pulmonology - [facility] [address] [facility] [address] [place] [address] Ben Barrios MD [address] [facility] [address] [place] [id number] Solitary pulmonary nodule (Primary Dx); Pulmonary nodules/lesions, multiple; Community acquired bacterial pneumonia Social History Tobacco Use Types Packs/Day Years Used Date Smoking Tobacco: Every Day Cigarettes 0.5 43 Smokeless Tobacco: Never Tobacco Cessation:Ready to Q uit: Not Asked; Counseling Given: Not Answered Comments:currently 1/2 ppd, history of 1ppd x 43 yrs Alcohol Use Standard Drinks/Week Comments Not Currently 0 (1 standard drink = 0.6 oz pur e alcohol) PRAPARE - Transportation Answer Date Re corded In the past 12 months, has l ack of transportation kept you from medical appointments or from getting medications? No 07/24/2023 Lack of Transportation (Non-Medical) Not on file 07/24/2023 Family and Community Support Answer Desean e Recorded Help with Day to Day Activities Not on file 09/21/2023 Feeling Lonely or Isolated Not on file 09/21 Educational Attainment Answer Date Thanh rded Speak language other than Belizean at home Not on file 09/21/2023 Want help with school or training Not on file 09/21/2023 Substance Use Answer Date Recorded Used prescription meds for non-medical reasons N ot on file 09/21/2023 Used illegal drugs past 12 months Not on file 09/21/2023 Comments No Sex and Gender Information Value Date Recorded Sex Assigned at Not on file Legal Sex Female 6:09 PM CDT Gender Identity Not on file Sexual Orientation Not on file documented as of this encounter Last Filed Vital Signs Vital Sign Reading Time Taken Comments Blood Pressure 100/69 05/28/2025 2:19 PM EDT Pulse 101 05/28/2025 2:19 PM EDT Temperature - - Respiratory Rate 16 05/28/2025 2:19 PM EDT Oxygen Saturation 90% 05/28/2025 2: 19 PM EDT RA Inhaled Oxygen Concentration - - Weight 68 kg (150 lb) 05/28/2025 2:19 PM EDT down 20 lbs in six months Height 180.3 cm (5' 11 ) 05/28/2025 2:1 9 PM EDT Body Mass Index 20.92 05/28/2025 2:19 PM EDT documented in this encounter Progress Notes * Ben Barrios MD - 05/28/2025 1:45 PM EDT Subjective 54 years old very pleasant female past medical history of COPD, sleep apnea, issue with BiPAP machine, she will follow up with her sleep specialist Dr. Hammer, chronic smoker, here for follow-up for COPD and for pulmonary nodules Patient COPD has been fairly well controlled with Trelegy and as needed albuterol. - Patient also had history of DE s/p stent LAD and was on Brilinta and it was stopped recently because she finish for a year. Currently she is only on aspirin. 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 Patient had elective procedure for adrenalectomy with Dr. Avila in [facility] She has tachycardia status post pheochromocytoma resection. She is currently taking metoprolol and will see a new fugitive detective because of her insurance change. She used to see Dr. Chamorro at [facility]. She was referred to Dr. White at per patient. Since after procedure, she has minor abdominal discomfort, lower rib pain, mild left precordium chest pain going to back - she has lipomas in her rt fore arm and upper abdomen and back 07/02/24-patient is here to follow-up with PET scan result.Pt's , 2 other sisters accompanied her today. One of sisters is nurse. - Patient had a follow-up CT chest on 06/23/2024 show new pulmonary nodules bilaterally, some of which are cavitary measuring up to 19 mm within posterior left upper lobe. Smoking 1/2ppd currently. Has been smoking these days because of the stress. She use oxygen 2.5 L at night and as needed. - No history of TB, vasculitis, collagen vascular disease, occupational exposure. 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 Some chest tightness in her left precordium and I have recommended to follow-up with fugitive detective. She saw 2 weeks ago MEDIA PROFESSIONAL Candy Loredo, was told echo was wnl, no vegetations still awaiting new bipap setting from Dr. Hammer 07/21/2024-for follow-up after CT-guided lung nodule biopsy. Patient tolerated biopsy. Pathology report on 07/09/2024 showed minute fragments of every elated lung with mild emphysematous changes. Negative for carcinoma. Radiology procedure note, cyst biopsy passes were made. Preliminary pathology interpretation suggested microinfarction, mesothelial cells and possible granulomatous involvement. However No granulomasreported on final pathology report. So far tissue cultures and stain and anaerobic culture no growth to date. Patient still has some shortness of breath and cough with whitish sputum but much improved comparedto last visit. She denies fever or chills. She still have fatigue and loss of appetite. I encouraged her to schedule sleep specialist appointment to improve her fatigue and for untreated sleep apnea. 08/21/24- today is follow up after discharge from hospital. [facility] with low-grade fever and greenish sputum for for [address] chest 11 mm nodule superior segment of the right lower lobe, 10 mm nodule in the posterior lateral right upper lobe, 5 mm nodule in more crania right upper lobe, 70 mm nodule in the posterior left upper lobe apex small amount of internal cavitation, 5 mm perifissural nodule caudally in the posterior left upper lobe. 8 mm nodule in the more caudal suprahilar left upper lobe with several additional smaller nodules more caudally. 7 mm nodule in the superior segment of the left lower lobe. Small lymph node 10 mm mainstem bronchus. No other mediastinal adenopathy. Review CD and also radiology report. Overall images similar appearance compared to CT chest done on 06/23/2024. Patient was treated for acute COPD exacerbation in [facility]. Flu and COVID-negative. Patient just finished prednisone and azithromycin. She still feeling poorly although little bit mitzi r. Stay very short of breath. Her sputum is much more clear than before. 11/27/24-close for follow-up with CT chest result. Patient is using 3 L nasal cannula. Patient is smoking half pack per day. Breathing mike the last COPD exacerbation was in August 2024. In between she did not need to go to urgent care or ED however when she has short of breath or wheezy, she usedextra breathing treatment with nebulizer and it settle her down. Has been accompanied her today. CTchest finding explained in detail and I answered all the questions. Patient regain her appetite andweight. - Based on frequent exacerbation within a year more than 3-4 times per year, I discussed risk and benefit of Daliresp/Roflumilast. Patient is willing to proceed if insurance cover. 05/28/2025-patient is here for follow-up. Patient has been sick for 3 weeks since after school started. She has been having congestion, pleuritic chest pain and yellowish sputum. She has sick contact everybody sick at home. I advised her to check home flu test and COVID test and contact primary carephysician if positive. - I also discussed if she wants CT chest sooner. She wants to hold off for now and wants to keep regular scheduled November 2025. She is agreeable to do so chest x-ray. Review of Systems Constitutional: Positive for fatigue. Respiratory: Positive for cough and shortness of breath. Negative for wheezing. All other systems reviewed and are negative. Objective Last Recorded Vitals Vitals: 05/28/25 1419 BP: 100/69 Pulse: 101 Resp: 16 SpO2: 90% Physical Exam Vitals reviewed. Constitutional: Appearance: Normal appearance. HENT: Head: Normocephalic and atraumatic. Right Ear: Tympanic membrane normal. Left Ear: Tympanic membrane normal. Nose: Nose normal. Mouth/Throat: Mouth: Mucous membranes are moist. Eyes: Extraocular Movements: Extraocular movements intact. Conjunctiva/sclera: Conjunctivae normal. Pupils: Pupils are equal, round, and reactive to light. Cardiovascular: Rate and Rhythm: Normal rate and regular rhythm. Pulses: Normal pulses. Heart sounds: Normal heart sounds. Pulmonary: Effort: Pulmonary effort is normal. Comments: Air entry mildly dimished however improved compared to last visit Abdominal: General: Bowel sounds are normal. Palpations: Abdomen is soft. Musculoskeletal: Cervical back: Normal range of motion and neck supple. Skin: General: Skin is warm. Capillary Refill: Capillary refill takes less than 2 seconds. Neurological: General: No focal deficit present. Mental Status: She is alert. Psychiatric: Mood and Affect: Mood normal. Labs: No results found for this visit on 05/28/25 (from the past 24 hours). CT chest without contrast Narrative: CT SCAN OF THE CHEST WITHOUT CONTRAST. HISTORY: Pulmonary nodules. COMPARISON: June [address] and PET/CT. PROCEDURE: Axial images were obtained from the lung apex to the mid abdomen by computed tomography. This study was performed with techniques to keep radiation doses as low as reasonably achievable, (ALARA). Automatic exposure control and/or changing of the mA/ kV according to patient size were utilized for radiation dose reduction. FINDINGS: CHEST: There is air in the paraspinal soft tissues consistent with reported epidural performed today. There are coronary artery calcifications. There is no axillary adenopathy. There is no hilar or mediastinal adenopathy. There is no pericardial or pleural effusion. The lungs are hyperinflated. There are multiple bilateral lung nodules with the largest in the right upper lobe measuring 7 mm. This is stable on image 15. There is an elongated nodule in the posterior left upper lobe on image 9. This has improved and now measures 16 mm, previously 23 mm. The lesion is no longer cavitary. There are multiple other lung nodules identified. Limited images of the upper abdomen are unremarkable. Impression: Multiple nodules are either improved or stable. Recommend 6 month follow-up chest CT. Images reviewed, interpreted, and dictated by Dr. Lin Dhillon. Transcribed by Mabel Stokes PA-C. Assessment Currently sick with acute COPD exacerbation was a community-acquired pneumonia - Sick contact - Today oxygenation is 90% on room air at rest - Chest x-ray ordered - Prednisone 60 mg for 7 days and cefdinir for 7 days ordered. Patient is aware of that if she doesnot get better to go to ED. Pulmonary nodules. - PET scan done 07/01/2024 show pulmonary nodules of the upper lobes are hypermetabolic. Right upper lobe pulmonary nodule maximal SUV 2.4. The more hypermetabolic of the 2 left upper lobe pulmonary nodules demonstrate maximal SUV of 4.4. There is no hypermetabolic thoracic adenopathy. Left axillaryLN SUV of 2.4. - Patient denies history of any pulmonary embolism. CT-guided lung nodule biopsy done 07/09/24 Patient tolerated biopsy. Pathology report on 07/09/2024 showed minute fragments of every elated lung with mild emphysematous changes. Negative for carcinoma. tissue cultures and stain and anaerobic culture no growth to date. CT chest done 08/16/24- reviewed- overall similar appearance and some mildly improved CT chest in 3 months 11/27/2024-Multiple nodules are either improved or stable - Plan is to repeat CT chest in 1 year to ensure stability for 2 years. Patient is agreeable with the plan. Will order CT chest for 11/2025 I have strongly recommended her to completely quit smoking otherwise she has risk of smoking associated lung disease and pulmonary nodules not limited to Langerhans' cell histiocytosis, respiratory bronchiolitis interstitial lung disease and desquamative interstitial pneumonia. 2. Active smoker- 42 years of smoking, currently 1/2 ppd, hard to cut down because also smokes inside the house, counseling done for 7 min 3. Copd with emphysema with frequent exacerbation continue trelegy, rinse mouth well, -nebulizer and duoneb to use q4-6hr prn - roflumilast 500 mcg daily Risk of mortality and morbidity and risk of another exacerbation in the near future if she does notquit smoking. Stated that understanding. 4. Cough- mucinex bid RTC after CT chest or sooner if needed Note to patient: The Cures Act makes medical notes like this one available to patientsin the interest of transparency. However, be advised that this is a medical document. It is intended as a peer to peer communication. It is written in medical language and may contain abbreviations or verbiage that are unfamiliar. It may appear blunt or direct. Medical documentation is intended to carry relevant information, facts as evident, and the clinical opinion of the practitioner. I, Dr. Barrios have personally performed a lafb-ju-usuj diagnostic evaluation on this patient. I have reviewed labs, radiologic data and created the care plan. Clinical condition and plan discussed with patient. Answered all questions. documented in this encounter Plan of Treatment Upcoming Encounters Date Type Department Care Team (Late st Contact Info) Description 11/03/2025 12:45 PM EST Office Visit [facility] Pulmonology - [address] [place] [address] Ben Barrios MD [address] [place] [address] Scheduled Orders Name Type Priority Associated Diagnoses Orde r Schedule CT CHEST WITHOUT IV CONTRAST Imaging Routine Pulmonary nodules/lesions, multiple Expected: 11/18/2025, Expires: 06/27/2026 documented as of this encounter Results * X-ray chest PA and lateral (05/28/2025 3:35 PM EDT) Anatomical Region Laterality Modality Chest X-Ray 05/29/2025 8:01 AM EDT Impressions 05/29/2025 8:15 AM EDT Nodular opacity as above. Follow-up to complete resolution recommended. Images reviewed, interpreted, and dictated by Dr. Joe Sykes. Transcribed by Chen Graves PA-C. Narrative 05/29/2025 8:15 AM EDT TWO-VIEW CHEST 05/28/2025 3:28 PM HISTORY: Acute shortness of breath, pneumonia. COMPARISON: July 2024. FINDINGS: The heart is proper size. The mediastinum is unremarkable. There are minimal bilateral upper lobe nodules, not significantly changed. There are no acute infiltrates. There is underlying emphysema. There is no pneumothorax. The osseous structures are unremarkable. Procedure Note Joe Sykes MD - 05/29/2025 TWO-VIEW CHEST 05/28/2025 3:28 PM HISTORY: Acute shortness of breath, pneumonia. COMPARISON: July 2024. FINDINGS: The heart is proper size. The mediastinum is unremarkable. There are minimal bilateral upper lobe nodules, not significantly changed. There are no acute infiltrates. There is underlying emphysema. There is no pneumothorax. The osseous structures are unremarkable. IMPRESSION: Nodular opacity as above. Follow-up to complete resolution recommended. Images reviewed, interpreted, and dictated by Dr. Joe Sykes. Transcribed by Chen Graves PA-C. Ben Barrios MD IMG DIAGNOSTIC IMAGING ORDERABLE S Final Result documented in this encounter Visit Diagnoses Diagnosis Solitary pulmonary nodule- Primary Pulmonary nodules/lesions, multiple Other diseases of lung, not elsewhere classified Community acquired bacterial pneumonia Unspecified bacterial pneumonia Community acquired bacterial pneumonia Unspecified bacterial pneumonia documented in this encounter Care Teams Foundry Finisher Relationship Specialty Start Date End Date Marvel Grayson MD PCP - General Family Medicine 05/17/23 Marvel Grayson [address] [place] [address] Family Practice 04/09/23 documented as of this encounter
--- OUTSIDE RECORDS SUMMARY | 2025-05-28 14:24 | XMS_ITS | Encounter Summary ---
Author Organization [employer] ([place], [place], [place], [place], [place]) Address [address] [place] [address] Care Team Providers Care Pharmacy Graduate Intern Name Role Phone Marvel Grayson MD Primary Care Provider [phone] Reason for Referral * Diagnostic X-Ray (Routine) - Closed Specialty Diagnoses / Procedures Referred By Contac t Referred To Contact Radiology Diagnoses Community acquired bacterial pneumonia Procedures X-ray chest PA and lateral Ben Barrios MD [address] [place] [address] Phone: tel: fax: [facility] Diagnostic Imaging - [facility] [address] [place] [address] Phone: tel: fax: Referral ID Status Reason Start Date Expiration Date Visits Re quested Visits Authorized [id number] Closed 05/28/2025 05/28/2026 1 1 Reason for Visit * Diagnostic X-Ray (Routine) - Closed Specialty Diagnoses / Procedures Referred By Contac t Referred To Contact Radiology Diagnoses Community acquired bacterial pneumonia Procedures X-ray chest PA and lateral Ben Barrios MD [address] [place] [address] Phone: tel: fax: [facility] Diagnostic Imaging - [address] [place] [address] Phone: tel: fax: Referral ID Status Reason Start Date Expiration Date Visits Re quested Visits Authorized [id number] Closed 05/28/2025 05/28/2026 1 1 Encounter Details Date Type Department Care Team (Latest Contact Info) Description 05/28/2025 3:24 PM EDT - 05/28/2025 11:59 PM EDT Hospital Encounter [facility] Diagnostic Imaging - [address] [place] [address] Ben Barrios MD [address] [place] [address] Community acquired bacterial pneumonia Discharge Disposition: Home or Self Care Social History Tobacco Use Types Packs/Day Years Used Date Smoking Tobacco: Every Day Cigarettes 0.5 43 Smokeless Tobacco: Never Comments:currently 1/2 ppd, history of 1ppd x [...] Date Thanh rded Speak language other than French at home Not on file 09/21/2023 Want [...] on file documented as of this encounter Medications at Time of Discharge albuterol 90 mcg/actuation inhalerIndications: COPD (chronic obstructive pulmonary disease) (HCC) Inhale 2 puffs by mouth every 4 (four) hours as needed for wheezing. 1 Inhaler 11 5 11/28/19 26 aspirin 81 MG EC tablet 1 Tab, Oral, Chew Tab, Daily, 0 Refill(s) 2 atorvastatin (LIPITOR) 40 MG tablet Take 1 tablet (40 mg total) by mouth daily ONCE A. budesonide (PULMICORT) 1 mg/2 mL nebulizer solution 2 mL by nebulizer 2 times a day for 30 days 5 cefdinir (OMNICEF) 300 mg capsuleIndications: Community acquired bacterial pneumonia Take 1 capsule (300 mg total) by mouth 2 (two) times daily. 14 capsule 5 cholecalciferol (Vitamin D3) 125 mcg (5,000 unit) tablet 1 cap(s) orally once a day for 90 days 4 clonazePAM (KlonoPIN) 0.5 MG tablet 0.5 tab(s) orally 2 times a day for 28 days 4 folic acid (FOLVITE) 1 MG tablet 1 tab(s) orally once a day for 90 days 4 gabapentin (NEURONTIN) 300 MG capsule Take 1 capsule (300 mg total) by mouth 4 (four) times daily. HYDROcodone-acetami nophen (NORCO 7.5-325) 7.5-325 mg per tablet Take 1 tablet by mouth every 4 (four) hours as needed. 1 HYDROcodone-acetami nophen (NORCO) 10-325 mg per tablet Take 1 tablet by mouth every 6 (six) hours EVERY 6 HOURS. ipratropium-albuter oL (DUO-NEB) 0.5 mg-3 mg(2.5 mg base)/3 mL nebulizer solutionIndications :COPD with acute exacerbation (HCC) Inhale 3 mLs by nebulization every 4 (four) hours as needed for wheezing or shortness of breath. 240 mL 6 5 11/28/19 26 loratadine (CLARITIN) 10 mg tablet TAKE 1 TABLET BY MOUTH EVERY DAY 30 tablet 1 3 meloxicam (MOBIC) 15 MG tablet Take 1 tablet (15 mg total) by mouth daily. 5 metoprolol tartrate (LOPRESSOR) 25 MG tablet Take 1 tablet (25 mg total) by mouth 2 (two) times daily. 4 miscellaneous medical supply [facility] 11/13/19 2 5 nitroglycerin (NITROSTAT) 0.4 MG SL tablet 1 Tab, SubLINgual, Tab, Q5Min, PRN Chest Pain, # 100 Tab, 0 Refill(s), Pharmacy: [facility]/pharmacy #[id number], 180.34, cm, 10/23/21 13:50:00 EST, CLINICALHEIGHT, 88.64, kg, 10/23/21 13:50:00 EST, CLINICALWEIGHT 2 ondansetron (ZOFRAN-ODT) 4 MG disintegrating tablet Take 1 tablet (4 mg total) by mouth. 4 promethazine-DM (PROMETHAZINE-DM) 6.25-15 mg/5 mL syrup 5 mL orally every 6 hours for 15 days 5 tiZANidine (ZANAFLEX) 2 MG tablet 1 Tab, Oral, Tab, Q8H, PRN as needed for muscle spasm, # 90 Tab, 0 Refill(s) 2 topiramate (TOPAMAX) 25 MG tablet Take 1 tablet (25 mg total) by mouth daily. 3 predniSONE (DELTASONE) 20 MG tabletIndications:C ommunity acquired bacterial pneumonia Take 3 tablets (60 mg total) by mouth daily for 7 days Look-alike/Sound- alike medication. 21 tablet 5 06/04/20 25 fluticasone-umeclid in-vilanter (Trelegy Ellipta) 100-62.5-25 mcg dsdvIndications:Chr onic obstructive pulmonary disease, unspecified COPD type ([facility]) Inhale 1 puff by mouth daily. 60 each 2 5 05/29/20 25 roflumilast (DALIRESP) 250 mcg tabletIndications:C OPD (chronic obstructive pulmonary disease) (HCC),Chronic bronchitis, unspecified chronic bronchitis type (HCC),Pulmonary emphysema, unspecified emphysema type Take 1 tablet (250 mcg total) by mouth daily. 30 tablet 5 5 07/02/20 documented as of this encounter Plan of Treatment Upcoming Encounters Date Type Department Care Team (Late st Contact Info) Description 11/03/2025 12:45 PM EST Office Visit [facility] Pulmonology - [address] [place] [address] Ben Barrios MD [address] [place] [address] documented as of this encounter Procedures Procedure Name Priority Date/Time Associated Diagnosis Comments XR CHEST PA AND LATERAL Routine 05/28/2025 3:35 PM EDT Community acquired bacterial pneumonia documented in this encounter Results * X-ray chest PA [...] documented in this encounter Visit Diagnoses Diagnosis Community acquired bacterial pneumonia Unspecified bacterial pneumonia documented in this encounter Care Teams Pharmacy Graduate Intern Relationship Specialty Start Date End Date Marvel Grayson MD PCP - General Family Medicine 05/17/23 Marvel Grayson [address] [place] [address] Family Practice 04/09/23 documented as of this encounter
--- OUTSIDE RECORDS SUMMARY | 2025-07-22 07:44 | XMS_ITS | Encounter Summary ---
Author Organization [employer] ([place], [place], [place], [place], [place]) Address [address] [place] [address] Care Team Providers Care River Tester Name Role Phone Amie Pena MD Primary Care Provider [phone] Marvel Grayson MD Primary Care Provider [phone] Encounter Details Date Type Department Care Team (Late st Contact Info) Description 07/17/2019 Transcribed Document [facility] Family Medicine [address] [place] [address] ProviderMik MD [address] [place] [address] Social History Tobacco Use Types Packs/Day Years Used Date Smoking Tobacco: Never Assessed Comments Unknown Sex and Gender Information Value Date Recorded Sex Assigned at Not on file Legal Sex Female 6:09 PM CDT Gender Identity Not on file Sexual Orientation Not on file documented as of this encounter Miscellaneous Notes * Cerner Conversion Note - Mik ProviderMD - 07/17/2019 1:53 PM AIR TWIST OPERATOR UM Authorization Entered On: 07/17/2019 13:53 EST Performed On: 07/17/2019 13:53 EST by FREDERIC PHAM RN-Utilization Review Primary Insurance Authorization Authorization and Policy Numbers : Insurance 1 Health Plan: [employer] Policy Number: [id number] Authorization Number: Insurance Primary Name : [facility] [id number] Authorization Status-Primary : Awaiting callback Reference Number-Primary : [id number] Authorization Number-Primary : [id number] Number of Days Authorized-Primary : 1 Day(s) Authorized Service Begin Date-Primary : 07/05/2019 EDT Authorized Service End Date-Primary : 07/06/2019 EDT Historical Authorization Comments-Primary : Comment 1: [facility] approved per website (FREDERIC PHAM RN-Utilization Review 07/17/2019 13:53) Comment 2: C auth still pending per website (FREDERIC PHAM RN-Utilization Review 07/15/2019 12:33) Comment 3: [employer] auth still pending per website (FREDERIC PHAM RN-Utilization Review 07/11/2019 12:51) Comment 4: Per DM, initial clinicals requested despite clinicals having been attached to auth on [facility] Portal. Clinicals faxed via [employer]. (SHAAN RICHTER Rn-Utilization Review 07/10/2019 15:26) Comment 5: C auth still pending per website (FREDERIC PHAM RN-Utilization Review 07/10/2019 10:04) Comment 6: C auth still pending per website (FREDERIC PHAM RN-Utilization Review 07/09/2019 09:54) Comment 7: C auth still pending per website (FREDERIC PHAM RN-Utilization Review 07/08/2019 13:30) Comment 8: C auth still pending per website (FREDERIC PHAM RN-Utilization Review 07/07/2019 13:48) Comment 9: Clinicals submitted via [facility] portal. (SHAAN RICHTER Rn-Utilization Review 07/06/2019 09:45) Comment 10: Reference number retrieved from [facility] portal. (SHAAN RICHTER Rn-Utilization Review 07/06/2019 09:37) FREDERIC PHAM RN-Utilization Review - 07/17/2019 13:53 EST documented in this encounter Plan of Treatment Upcoming Encounters Date Type Department Care Team (Late st Contact Info) Description 11/03/2025 12:45 PM EST Office Visit [facility] Pulmonology - [address] [place] [address] Ben Barrios MD [address] [place] [address] documented as of this encounter Visit Diagnoses Not on filedocumented in this encounter Care Teams River Tester Relationship Specialty Start Date End Date Amie Pena MD [address] [place] [address] PCP - General Family Medicine 10/31/22 04/08/23 Marvel Grayson MD [address] [place] [address] PCP - General Family Medicine 05/17/23 Marvel Grayson [address] [place] [address] Family Practice 04/09/23 documented as of this encounter
--- OUTSIDE RECORDS SUMMARY | 2025-07-22 07:44 | XMS_ITS | Encounter Summary ---
Author Organization [employer] ([place], [place], [place], [place], [place]) Address [address] [place] [address] Care Team Providers Care Manager Of Radiology Name Role Phone Amie Pena MD Primary Care Provider [phone] Marvel Grayson MD Primary Care Provider [phone] Encounter Details Date Type Department Care Team (Late st Contact Info) Description 07/15/2019 Transcribed Document [facility] Family Medicine [address] [place] [address] ProviderMik MD [address] [place] [address] Social History Tobacco Use Types Packs/Day Years Used Date Smoking Tobacco: Never Assessed Comments Unknown Sex and Gender Information Value Date Recorded Sex Assigned at Not on file Legal Sex Female 6:09 PM CDT Gender Identity Not on file Sexual Orientation Not on file documented as of this encounter Miscellaneous Notes * Cerner Conversion Note - Mik ProviderMD - 07/15/2019 12:33 PM DIRECTOR DATA UM Authorization Entered On: 07/15/2019 12:33 EST Performed On: 07/15/2019 12:33 EST by FREDERIC PHAM RN-Utilization Review Primary Insurance Authorization Authorization and Policy Numbers : Insurance 1 Health Plan: [employer] Policy Number: [id number] Authorization Number: Insurance Primary Name : [employer] Authorization Status-Primary : Awaiting callback Reference Number-Primary : [id number] Authorized Service Begin Date-Primary : 07/05/2019 EDT Authorization Comments-Primary : [facility] auth still pending per website Historical Authorization Comments-Primary : Comment 1: C auth still pending per website (FREDERIC PHAM RN-Utilization Review 07/11/2019 12:51) Comment 2: Per DM, initial clinicals requested despite clinicals having been attached to auth on [facility] Portal. Clinicals faxed via [employer]. (SHAAN RICHTER Rn-Utilization Review 07/10/2019 15:26) Comment 3: C auth still pending per website (FREDERIC PHAM RN-Utilization Review 07/10/2019 10:04) Comment 4: C auth still pending per website (FREDERIC PHAM RN-Utilization Review 07/09/2019 09:54) Comment 5: [facility] auth still pending per website (FREDERIC PHAM RN-Utilization Review 07/08/2019 13:30) Comment 6: C auth still pending per website (FREDERIC PHAM RN-Utilization Review 07/07/2019 13:48) Comment 7: Clinicals submitted via [facility] portal. (SHAAN RICHTER Rn-Utilization Review 07/06/2019 09:45) Comment 8: Reference number retrieved from [facility] portal. (SHAAN RICHTER Rn-Utilization Review 07/06/2019 09:37) FREDERIC PHAM RN-Utilization Review - 07/15/2019 12:33 EST documented in this encounter Plan of Treatment Upcoming Encounters Date Type Department Care Team (Late st Contact Info) Description 11/03/2025 12:45 PM EST Office Visit [facility] Pulmonology - [address] [place] [address] Ben Barrios MD [address] [place] [address] documented as of this encounter Visit Diagnoses Not on filedocumented in this encounter Care Teams Manager Of Radiology Relationship Specialty Start Date End Date Amie Pena MD [address] [place] [address] [place] [address] PCP - General Family Medicine 10/31/22 04/08/23 Marvel Grayson MD [address] [place] [address] [place] [address] PCP - General Family Medicine 05/17/23 Marvel Grayson [facility] [place] [address] Family Practice 04/09/23 documented as of this encounter
--- OUTSIDE RECORDS SUMMARY | 2025-07-22 07:44 | XMS_ITS | Encounter Summary ---
Author Organization [employer] ([place], [place], [place], [place], [place]) Address [address] [place] [address] Care Team Providers Care Carpet Installation Specialist Name Role Phone Amie Pena MD Primary Care Provider [phone] Marvel Grayson MD Primary Care Provider [phone] Encounter Details Date Type Department Care Team (Late st Contact Info) Description 10/29/2019 Transcribed Document [facility] [place] [address] ProviderMik MD [address] [place] [address] Social History Tobacco Use Types Packs/Day Years Used Date Smoking Tobacco: Never Assessed Comments Unknown Sex and Gender Information Value Date Recorded Sex Assigned at Not on file Legal Sex Female 6:09 PM CDT Gender Identity Not on file Sexual Orientation Not on file documented as of this encounter Miscellaneous Notes * Cerner Conversion Note - Historical ProviderMD - 10/29/2019 5:47 PM MENDING CARRIER SEAN [address] [address] Visit Date/Time: 10/29/2019 17:47:26 PRATIK SHABAZZ The above patient was seen in the hospital today and needs to be excused from work/school until Return to Work/School Date:10/31/2019 documented in this encounter Plan of Treatment Upcoming Encounters Date Type Department Care Team (Late st Contact Info) Description 11/03/2025 12:45 PM EST Office Visit [facility] Pulmonology - [address] [place] [address] Ben Barrios MD [address] [place] [address] documented as of this encounter Visit Diagnoses Not on filedocumented in this encounter Care Teams Carpet Installation Specialist Relationship Specialty Start Date End Date Amie Pena MD [address] [place] [address] [place] [address] PCP - General Family Medicine 10/31/22 04/08/23 Marvel Grayson MD [address] [place] [address] [place] [address] PCP - General Family Medicine 05/17/23 Marvel Grayson [address] [place], [place] [address] Family Practice 04/09/23 documented as of this encounter
--- OUTSIDE RECORDS SUMMARY | 2025-07-22 07:44 | XMS_ITS | Encounter Summary ---
Author Organization [employer] ([place], [place], [place], [place], [place]) Address [address] [place] [address] Care Team Providers Care City Secretary Name Role Phone Amie Pena MD Primary Care Provider [phone] Marvel Grayson MD Primary Care Provider [phone] Encounter Details Date Type Department Care Team (Late st Contact Info) Description 10/29/2019 Transcribed Document [facility] Family Medicine [address] [place] [address] ProviderMik MD [address] [place] [address] Social History Tobacco Use Types Packs/Day Years Used Date Smoking Tobacco: Never Assessed Comments Unknown Sex and Gender Information Value Date Recorded Sex Assigned at Not on file Legal Sex Female 6:09 PM CDT Gender Identity Not on file Sexual Orientation Not on file documented as of this encounter Miscellaneous Notes * Cerner Conversion Note - Historical ProviderMD - 10/29/2019 5:39 PM ENVIRONMENTAL CONTROL ADMINISTRATOR Electronically signed by Geneva [facility] Conversion Natural Resources Technician Cerner at 12/16/2022 10:37 AM CDT documented in this encounter Plan of Treatment Upcoming Encounters Date Type Department Care Team (Late st Contact Info) Description 11/03/2025 12:45 PM EST Office Visit [facility] Pulmonology - [address] [place] [address] Ben Barrios MD [address] [place] [address] documented as of this encounter Visit Diagnoses Not on filedocumented in this encounter Care Teams City Secretary Relationship Specialty Start Date End Date Amie Pena MD [address] [facility] [place] [address] PCP - General Family Medicine 10/31/22 04/08/23 Marvel Grayson MD [address] [place] [address] PCP - General Family Medicine 05/17/23 Marvel Grayson [address] [place] [address] Family Practice 04/09/23 documented as of this encounter
--- OUTSIDE RECORDS SUMMARY | 2025-07-22 07:44 | XMS_ITS | Encounter Summary ---
Author Organization [employer] ([place], [place], [place], [place], [place]) Address [address] [place] [address] Care Team Providers Care Cnc Cutting Operator Name Role Phone Amie Pena MD Primary Care Provider [phone] Marvel Grayson MD Primary Care Provider [phone] Encounter Details Date Type Department Care Team (Late st Contact Info) Description 07/10/2019 Transcribed Document [facility] Family Medicine [address] [place] [address] ProviderMik MD [address] [place] [address] Social History Tobacco Use Types Packs/Day Years Used Date Smoking Tobacco: Never Assessed Comments Unknown Sex and Gender Information Value Date Recorded Sex Assigned at Not on file Legal Sex Female 6:09 PM CDT Gender Identity Not on file Sexual Orientation Not on file documented as of this encounter Miscellaneous Notes * Cerner Conversion Note - Historical ProviderMD - 07/10/2019 3:25 PM LUMBER PLANER assistant city attorney Form Entered On: 07/10/2019 15:25 EST Performed On: 07/10/2019 15:25 EST by SHAAN RICHTER Rn-Utilization Review UM Additional Information UM Additional Comment : REFAX OF CLINICALS. CLINICALS ORIGINALLY ATTACHED TO AUTH REQUEST IN [facility] PORTAL ON 07/06/19 SHAAN RICHTER Rn-Utilization Review - 07/10/2019 15:25 EST documented in this encounter Plan of Treatment Upcoming Encounters Date Type Department Care Team (Late st Contact Info) Description 11/03/2025 12:45 PM EST Office Visit [facility] Pulmonology - [address] [place] [address] Ben Barrios MD [address] [place] [address] documented as of this encounter Visit Diagnoses Not on filedocumented in this encounter Care Teams Cnc Cutting Operator Relationship Specialty Start Date End Date Amie Pena MD [address] [place] [address] [place] [address] PCP - General Family Medicine 10/31/22 04/08/23 Marvel Grayson MD [facility] [place] [address] PCP - General Family Medicine 05/17/23 Marvel Grayson [address] [place] [address] Family Practice 04/09/23 documented as of this encounter
--- OUTSIDE RECORDS SUMMARY | 2025-07-22 07:44 | XMS_ITS | Encounter Summary ---
Author Organization [employer] ([place], [place], [place], [place], [place]) Address [address] [place] [address] Care Team Providers Care Director Of Operations Home Health Name Role Phone Amie Pena MD Primary Care Provider [phone] Marvel Grayson MD Primary Care Provider [phone] Encounter Details Date Type Department Care Team (Late st Contact Info) Description 07/17/2019 Transcribed Document [facility] Family Medicine [address] [place] [address] ProviderMik MD [address] [place] [address] Social History Tobacco Use Types Packs/Day Years Used Date Smoking Tobacco: Never Assessed Comments Unknown Sex and Gender Information Value Date Recorded Sex Assigned at Not on file Legal Sex Female 6:09 PM CDT Gender Identity Not on file Sexual Orientation Not on file documented as of this encounter Miscellaneous Notes * Cerner Conversion Note - Mki Thorne MD - 07/17/2019 1:53 PM TRUCK MECHANIC APPRENTICE UM Authorization Entered On: 07/17/2019 13:53 EST Performed On: 07/17/2019 13:53 EST by FREDERIC PHAM RN-Utilization Review Primary Insurance Authorization Authorization and Policy Numbers : Insurance 1 Health Plan: [employer] Policy Number: [id number] Authorization Number: Insurance Primary Name : [employer] Authorization Status-Primary : Awaiting callback Reference Number-Primary : [id number] Number of Days Authorized-Primary : 1 Day(s) Authorized Service Begin Date-Primary : 07/05/2019 EDT Authorized Service End Date-Primary : 07/06/2019 EDT Authorization Comments-Primary : [facility] approved per website Historical Authorization Comments-Primary : Comment 1: [employer] auth still pending per website (FREDERIC PHAM RN-Utilization Review 07/15/2019 12:33) Comment 2: [employer] auth still pending per website (FREDERIC PHAM RN-Utilization Review 07/11/2019 12:51) Comment 3: Per DM, initial clinicals requested despite clinicals having been attached to auth on [facility] Portal. Clinicals faxed via [employer]. (SHAAN RICHTER Rn-Utilization Review 07/10/2019 15:26) Comment [...] 07/07/2019 13:48) Comment 8: Clinicals submitted via [facility] portal. (SHAAN RICHTER Rn-Utilization Review 07/06/2019 09:45) Comment 9: Reference number retrieved from [facility] portal. (SHAAN RICHTER Rn-Utilization Review 07/06/2019 09:37) FREDERIC PHAM RN-Utilization Review - 07/17/2019 13:53 EST documented in this encounter Plan of Treatment Upcoming Encounters Date Type Department Care Team (Late st Contact Info) Description 11/03/2025 12:45 PM EST Office Visit [facility] Pulmonology - [address] [place] [id number] Ben Barrios MD [address] [place] [address] documented as of this encounter Visit Diagnoses Not on filedocumented in this encounter Care Teams Director Of Operations Home Health Relationship Specialty Start Date End Date Amie Pena MD [address] [place] [address] [place] [address] PCP - General Family Medicine 10/31/22 04/08/23 Marvel Grayson MD [address] [place] [address] [place] [address] PCP - General Family Medicine 05/17/23 Marvel Grayson [address] [place] [address] Family Practice 04/09/23 documented as of this encounter
--- OUTSIDE RECORDS SUMMARY | 2025-07-22 07:45 | XMS_ITS | Encounter Summary ---
Author Organization [employer] ([place], [place], [place], [place], [place]) Address [address] [place] [address] Care Team Providers Care Ic Designer Gate Arrays Name Role Phone Amie Pena MD Primary Care Provider [phone] Marvel Grayson MD Primary Care Provider [phone] Encounter Details Date Type Department Care Team (Late st Contact Info) Description 07/10/2019 Transcribed Document [facility] [address] [place] [address] Provider, Karthikeyan Houser MD Social History Tobacco Use Types Packs/Day Years Used Date Smoking Tobacco: Never Assessed Comments Unknown Sex and Gender Information Value Date Recorded Sex Assigned at Not on file Legal Sex Female 6:09 PM CDT Gender Identity Not on file Sexual Orientation Not on file documented as of this encounter Miscellaneous Notes * Cerner Conversion Note - [facility] Mik Thorne MD - 07/10/2019 4:26 PM EST UM Authorization Entered On: 07/10/2019 15:27 EST Performed On: 07/10/2019 15:26 EST by SHAAN RICHTER Rn-Utilization Review Primary Insurance Authorization Authorization and Policy Numbers : Insurance 1 Health Plan: [employer] Policy Number: [id number] Authorization Number: Insurance Primary Name : [facility] Authorization Status-Primary : Awaiting callback Reference Number-Primary : [id number] Authorized Service Begin Date-Primary : 07/05/2019 EDT Authorization Comments-Primary : Per DM, initial clinicals requested despite clinicals having been attached to auth on [facility] Portal. Clinicals faxed via [employer]. Historical Authorization Comments-Primary : Comment 1: [facility] auth still pending per website (FREDERIC PHAM RN-Utilization Review 07/10/2019 10:04) Comment 2: [facility] auth still pending per website (FREDERIC PHAM RN-Utilization Review 07/09/2019 09:54) Comment 3: [facility] auth still pending per website (FREDERIC PHAM RN-Utilization Review 07/08/2019 13:30) Comment 4: [facility] auth still pending per website (FREDERIC PHAM RN-Utilization Review 07/07/2019 13:48) Comment 5: Clinicals submitted via [facility] portal. (SHAAN RICHTER Rn-Utilization Review 07/06/2019 09:45) Comment 6: Reference number retrieved from [facility] portal. (SHAAN RICHTER Rn-Utilization Review 07/06/2019 09:37) SHAAN RICHTER Rn-Utilization Review - 07/10/2019 15:26 EST documented in this encounter Plan of Treatment Upcoming Encounters Date Type Department Care Team (Late st Contact Info) Description 11/03/2025 12:45 PM EST Office Visit [facility] Pulmonology - [address] [place] [address] Ben Barrios MD [address] [place] [address] documented as of this encounter Visit Diagnoses Not on filedocumented in this encounter Care Teams Ic Designer Gate Arrays Relationship Specialty Start Date End Date Amie Pena MD [address] [place] [address] PCP - General Family Medicine 10/31/22 04/08/23 Marvel Grayson MD [address] [place] [address] PCP - General Family Medicine 05/17/23 Marvel Grayson [place] [address] Family Practice 04/09/23 documented as of this encounter
--- OUTSIDE RECORDS SUMMARY | 2025-07-22 07:45 | XMS_ITS | Encounter Summary ---
Author Organization [employer] ([place], [place], [place], [place], [place]) Address [address] [place] [address] Care Team Providers Care Warehouse Shift Supervisor Name Role Phone Amie Pena MD Primary Care Provider Marvel Grayson MD Primary Care Provider [phone] Encounter Details Date Type Department Care Team (Late st Contact Info) Description 10/29/2019 Transcribed Document [facility] Family Medicine [address] [place] [address] ProviderMik MD [address] [place] [address] Social History Tobacco Use Types Packs/Day Years Used Date Smoking Tobacco: Never Assessed Comments Unknown Sex and Gender Information Value Date Recorded Sex Assigned at Not on file Legal Sex Female 6:09 PM CDT Gender Identity Not on file Sexual Orientation Not on file documented as of this encounter Miscellaneous Notes * Cerner Conversion Note - Mik ProviderMD - 10/29/2019 5:54 PM FLAKER OPERATOR ED Discharge Entered On: 10/29/2019 17:54 EST [...] 10/29/2019 17:54 EST Electronically signed by [place] [facility] Conversion Printed Circuit Boards Plasma Etcher Cerner at 12/16/2022 10:40 AM CDT documented in this encounter Plan of Treatment Upcoming Encounters Date Type Department Care Team (Late st Contact Info) Description 11/03/2025 12:45 PM EST Office Visit [facility] Pulmonology - [address] [place] [address] Ben Barrios MD [address] [place] [address] documented as of this encounter Visit Diagnoses Not on filedocumented in this encounter Care Teams Warehouse Shift Supervisor Relationship Specialty Start Date End Date Amie Pena MD [address] [place], [place] [address]al[place] [address] PCP - General Family Medicine 10/31/22 04/08/23 Marvel Grayson MD [address] [place] [address] [place] [address] PCP - General Family Medicine 05/17/23 Marvel Grayson [address] [place] [address] Family Practice 04/09/23 documented as of this encounter
--- OUTSIDE RECORDS SUMMARY | 2025-07-22 07:45 | XMS_ITS | Encounter Summary ---
Author Organization [email or web address] ([place], [place], [place], [place], [place]) Address [address] [place] [address] Care Team Providers Care Textile Technical Officer Name Role Phone Amie Pena MD Primary Care Provider [phone] Marvel Grayson MD Primary Care Provider [phone] Encounter Details Date Type Department Care Team (Late st Contact Info) Description 10/29/2019 Transcribed Document [facility] [place] [address] [place] [address] ProviderMik MD [address] [place] [address] Social History Tobacco Use Types Packs/Day Years Used Date Smoking Tobacco: Never Assessed Comments Unknown Sex and Gender Information Value Date Recorded Sex Assigned at Not on file Legal Sex Female 6:09 PM CDT Gender Identity Not on file Sexual Orientation Not on file documented as of this encounter Miscellaneous Notes * Cerner Conversion Note - Historical ProviderMD - 10/29/2019 2:14 PM DIESEL ENGINE INSPECTOR ED Triage Entered On: 10/29/2019 14:18 EST Performed On: 10/29/2019 14:15 EST by Candy Forman, COMPUTER SYSTEM VALIDATION SPECIALIST Triage Across the Room ED Vital Signs [...] EST DCP GENERIC CODE Tracking Group : [facility] Tracking Acuity : 2 - Emergent Candy Forman RN - 10/29/2019 14:15 EST Mode of Arrival : Ambulatory Transported to ED by : Ambulance/ALS EMS Service : [facility] To Room Via : Ambulate Accompanied By [...] 10/29/2019 14:18:32 EST) Problems(Active) Arthritis (SNOMED CT :0655451 ) Name of Problem: Arthritis ; Recorder: LASHANDA WEBER RN; Confirmation: Confirmed ; Classification: Patient Stated ; Code: [id number] ; Contributor System: PowerChart ; Last Updated: 02/13/2014 15:57 EDT ; Life Cycle Date: 02/13/2014 ; Life Cycle Status: Active ; Vocabulary: SNOMED CT Asthma (SNOMED CT :[id number] ) Name of Problem: Asthma ; Recorder: PANCHO SAEED RN; Confirmation: Confirmed ; Classification: Medical ; Code: [id number] ; Contributor System: PowerChart ; Last Updated: 02/12/2014 19:24 EDT ; Life Cycle Date: 11/28/2013 ; Life Cycle Status: Active ; Vocabulary: SNOMED CT Back pain (SNOMED CT :336444040 ) Name of Problem: Back pain ; Recorder: DENNISE ALVAREZ RN; Confirmation: Confirmed ; Classification: Medical ; Code: [id number] ; Contributor System: PowerChart ; Last Updated: 07/13/2014 14:28 EST ; Life Cycle Date: 07/13/2014 ; Life Cycle Status: Active ; Vocabulary: SNOMED CT COPD (chronic obstructive pulmonary disease) (SNOMED CT :44136492 ) Name of Problem: COPD (chronic obstructive pulmonary disease) ; Recorder: ALLA ZAPATA RN; Confirmation: Confirmed ; Classification: Medical ; Code: 76945980 ; Contributor System: PowerChart ; Last Updated: 04/11/2019 13:15 EDT ; Life Cycle Date: 04/11/2019 ; Life Cycle Status: Active ; Vocabulary: SNOMED CT COPD exacerbation (SNOMED CT :879818053 ) Name of Problem: COPD exacerbation ; Recorder: YURIY CASEY MD; Confirmation: Confirmed ; Classification: Medical ; Code: 059344755 ; Contributor System: PowerChart ; Last Updated: 07/07/2019 11:33 EST ; Life Cycle Status: Active ; Responsible Provider: YURIY CASEY MD; Vocabulary: SNOMED CT Fibromyalgia (SNOMED CT :[id number] ) Name of Problem: Fibromyalgia ; Recorder: PANCHO SAEED RN; Confirmation: Confirmed ; Classification: Medical ; Code: [id number] ; Contributor System: PowerChart ; Last Updated: 02/12/2014 19:24 EDT ; Life Cycle Date: 11/28/2013 ; Life Cycle Status: Active ; Vocabulary: SNOMED CT H/O: hysterectomy (SNOMED CT :123583879 ) Name of Problem: H/O: hysterectomy ; Recorder: HOWARD HU RN; Confirmation: Confirmed ; Classification: Medical ; Code: 455404338 ; Contributor System: PowerChart ; Last Updated: 12/29/2016 21:54 EDT ; Life Cycle Date: 12/29/2016 ; Life Cycle Status: Active ; Vocabulary: SNOMED CT heart burn (SNOMED CT :19434097 ) Name of Problem: heart burn ; Recorder: MARIAN YAO RN; Confirmation: Confirmed ; Classification: Medical ; Code: 16532368 ; Contributor System: PowerChart ; Last Updated: 01/20/2019 18:21 EDT ; Life Cycle Date: 03/29/2015 ; Life Cycle Status: Active ; Vocabulary: SNOMED CT Irritable bowel syndrome (SNOMED CT :75723541 ) Name of Problem: Irritable bowel syndrome ; Recorder: Yi Hardy Rn; Confirmation: Confirmed ; Classification: Medical ; Code: 82717675 ; Contributor System: PowerChart ; Last Updated: 04/18/2019 6:31 EDT ; Life Cycle Date: 04/18/2019 ; Life Cycle Status: Active ; Vocabulary: SNOMED CT Migraine (SNOMED CT :13070041 ) Name of Problem: Migraine ; Recorder: Yi Hardy Rn; Confirmation: Confirmed ; Classification: Medical ; Code: 61028932 ; Contributor System: PowerChart ; Last Updated: 04/18/2019 6:30 EDT ; Life Cycle Date: 04/18/2019 ; Life Cycle Status: Active ; Vocabulary: SNOMED CT Peripheral neuropathy (SNOMED CT :274055424 ) Name of Problem: Peripheral neuropathy ; Recorder: Yi Hardy Rn; Confirmation: Confirmed ; Classification: Medical ; Code: 489421031 ; Contributor System: PowerChart ; Last Updated: 04/18/2019 6:32 EDT ; Life Cycle Date: 04/18/2019 ; Life Cycle Status: Active ; Vocabulary: SNOMED CT PTSD (post-traumatic stress disorder) (SNOMED CT :05187981 ) Name of Problem: PTSD (post-traumatic stress disorder) ; Recorder: MARIAN YAO RN; Confirmation: Confirmed ; Classification: Medical ; Code: 43064127 ; Contributor System: VM6 SoftwareChart ; Last Updated: 03/29/2015 21:19 EDT ; Life Cycle Date: 03/29/2015 ; Life Cycle Status: Active ; Vocabulary: SNOMED CT Sciatica (SNOMED CT :59473613 ) Name of Problem: Sciatica ; Recorder: TRISH MCMAHON RN; Confirmation: Confirmed ; Classification: Medical ; Code: 39849647 ; Contributor System: Posterbee ; Last Updated: 05/24/2015 17:38 EDT ; Life Cycle Date: 05/24/2015 ; Life Cycle Status: Active ; Vocabulary: SNOMED CT Diagnoses(Active) Chest pain Date: 10/29/2019 ; Diagnosis Type: Reason For Visit ; Confirmation: Complaint of ; Clinical Dx: Chest pain ; Classification: Medical ; Clinical Service: Non-Specified ; Code: PNED ; Probability: 0 ; Diagnosis Code: [id number] ED Height and Weight Height Source : Estimated Height Entry Format : [place] Height, Feet : 5 ft(Converted to: 152 cm, 60 Inch) Height, Inches : 11 Inch(Converted to: 0 ft 11 Inch, 27.94 cm) Clinical Height : 180.34 cm Weight Source, ED : Critical estimated dosing weight Weight Entry Format : [place] Weight, Pounds : 200 lb Clinical Dosing Weight : 90.91 kg Body Surface Area (BSA) : 2.11 m2 Body Mass Index : 28 kg/m2 (HI) [place] Body Weight (IBW) : 70.31 kg Candy [...] Description 11/03/2025 12:45 PM EST Office Visit [facility] Pulmonology - [address] [place] [id number] Ben Barrios MD [address] [place], [place] [address] documented as of this encounter Visit Diagnoses Not on filedocumented in this encounter Care Teams Textile Technical Officer Relationship Specialty Start Date End Date Amie Pena MD [address] [place] [address] [place] [address] PCP - General Family Medicine 10/31/22 04/08/23 Marvel Grayson MD [address] [place] [address] [place] [address] PCP - General Family Medicine 05/17/23 Marvel Grayson [address] [place] [address] Family Practice 04/09/23 documented as of this encounter
--- OUTSIDE RECORDS SUMMARY | 2025-07-22 07:45 | XMS_ITS | Encounter Summary ---
Author Organization [employer] ([place], [place], [place], [place], [place]) Address [address] [place] [address] Care Team Providers Care Detail Technician Name Role Phone Amie Pena MD Primary Care Provider [phone] Marvel Grayson MD Primary Care Provider [phone] Encounter Details Date Type Department Care Team (Late st Contact Info) Description 10/29/2019 Transcribed Document [facility] [place] [address] [place] [address] ProviderMik MD [address] [place] [address] Social [...] - Historical ProviderMD - 10/29/2019 5:47 PM ASSESSMENT ANALYST CR Chest 1 Vw Portable Ordered: 10/29/2019 Modified Reason for Exam: chest pain 10/29/2019 16:38 10/29/2019 17:47 (WARD NICK) No further action required documented in this encounter Plan of Treatment Upcoming Encounters Date Type Department Care Team (Late st Contact Info) Description 11/03/2025 12:45 PM EST Office Visit [facility] Pulmonology - [address] [place] [address] Ben Barrios MD [address] [place], [place] [address] documented as of this encounter Visit Diagnoses Not on filedocumented in this encounter Care Teams Detail Technician Relationship Specialty Start Date End Date Amie Pena MD [address] [place] [address] PCP - General Family Medicine 10/31/22 04/08/23 Marvel Grayson MD [address] [place] [address] [place] [address] PCP - General Family Medicine 05/17/23 Marvel Grayson [address] [place] [address] Family Practice 04/09/23 documented as of this encounter
--- OUTSIDE RECORDS SUMMARY | 2025-07-22 07:45 | XMS_ITS | Encounter Summary ---
Author Organization [employer] ([place], [place], [place], [place], [place]) Address [address] [place] [address] Care Team Providers Care Supervisor Asphalt Paving Name Role Phone Amie Pena MD Primary Care Provider [phone] Marvel Grayson MD Primary Care Provider [phone] Encounter Details Date Type Department Care Team (Late st Contact Info) Description 07/13/2019 Transcribed Document [facility] [place] [address] [place] [address] ProviderMik MD [address] [place] [address] Social History Tobacco Use Types Packs/Day [...] Mik Thorne MD - 07/13/2019 8:55 AM DIRECTOR OF PATIENT CARE Patient: PRATIK SHABAZZ Age: 48 years Sex: [...] COPD and fibromyalgia who was transferred from [facility] ER because of pneumonia. Patient states that [...] of back surgery. No recent antibiotic. At [facility], she was tachycardic and sats 88 [...] in stable confition back to home. ACC: [id number] ORDER: Culture MRSA Surveillance DATE: 07/06/2019 01:56 [...] Home independently (07/07/2019) time spent 35 min Electronically signed by Karthikeyan Bean Conversion Outside Plant Field Engineer Cerner at 12/16/2022 10:41 AM CDT documented in this encounter Plan of Treatment Upcoming Encounters Date Type Department Care Team (Late st Contact Info) Description 11/03/2025 12:45 PM EST Office Visit [facility] Pulmonology - [address] [place] [address] Ben Barrios MD [address] [place] [address] documented as of this encounter Visit Diagnoses Not on filedocumented in this encounter Care Teams Supervisor Asphalt Paving Relationship Specialty Start Date End Date Amie Pena MD [address] [place] [address] [place] [address] PCP - General Family Medicine 10/31/22 04/08/23 Marvel Grayson MD [address] [place] [address] PCP - General Family Medicine 05/17/23 Marvel Grayson [address] [place], [place] [address] Family Practice 04/09/23 documented as of this encounter
--- OUTSIDE RECORDS SUMMARY | 2025-07-22 07:45 | XMS_ITS | Encounter Summary ---
Author Organization [employer] ([place], [place], [place], [place], [place]) Address [address] [place] [address] Care Team Providers Care Immunopathologist Name Role Phone Amie Pena MD Primary Care Provider [phone] Marvel Grayson MD Primary Care Provider [phone] Encounter Details Date Type Department Care Team (Late st Contact Info) Description 10/29/2019 Transcribed Document [facility] [place] [address] [place] [address] ProviderMik MD [address] [place] [address] Social History Tobacco Use Types Packs/Day Years Used Date Smoking Tobacco: Never Assessed Comments Unknown Sex and Gender Information Value Date Recorded Sex Assigned at Not on file Legal Sex Female 6:09 PM CDT Gender Identity Not on file Sexual Orientation Not on file documented as of this encounter Miscellaneous Notes * Cerner Conversion Note - Mik ProviderMD - 10/29/2019 2:14 PM RADIATION OFFICER ED Assessment Entered On: 10/29/2019 14:34 EST [...] Communication Barrier : None Primary Language : Bangladeshi Any Spiritual/Cultural Needs or Requests : No [...] Rhythm : Regular Nail Bed Color : [place] Detailed Cardiovascular Assessment : Open Candy Forman RN - 10/29/2019 14:31 EST Cardiovascular ASMT, Detailed Cardiac Rhythm Comment : pt c/o left sided chest pain that radiates to her L shoulder. pt denies SOA. pt states it started 1 hour COUNTER SALES PERSON, and states she has been super stressed the past couple days and doesn't know if it is just stress or what. no cardiac hx per pt. pt aaox4 (Comment: resps even&nonlabored. skinpwd. [Candy Forman RN - 10/29/2019 14:31 EST] ) Candy Forman RN - 10/29/2019 14:31 EST Electronically signed by Geneva, [facility] Conversion Learning Disabilities Specialist Cerner at 12/16/2022 10:38 AM CDT documented in this encounter Plan of Treatment Upcoming Encounters Date Type Department Care Team (Late st Contact Info) Description 11/03/2025 12:45 PM EST Office Visit [facility] Pulmonology - [address] [place] [id number] Ben Barrios MD [address] [place] [address] documented as of this encounter Visit Diagnoses Not on filedocumented in this encounter Care Teams Immunopathologist Relationship Specialty Start Date End Date Amie Pena MD [facility] [place] [address] PCP - General Family Medicine 10/31/22 04/08/23 Marvel Grayson MD [facility] [place] [address] PCP - General Family Medicine 05/17/23 Marvel Grayson [address] [place] [address] Family Practice 04/09/23 documented as of this encounter
--- OUTSIDE RECORDS SUMMARY | 2025-07-22 07:45 | XMS_ITS | Encounter Summary ---
Author Organization [employer] ([place], [place], [place], [place], [place]) Address [address] [place] [address] Care Team Providers Care Right Of Way Appraiser Name Role Phone Amie Pena MD Primary Care Provider [phone] Marvel Grayson MD Primary Care Provider [phone] Encounter Details Date Type Department Care Team (Late st Contact Info) Description 10/29/2019 Transcribed Document [facility] [address] [place] [address] Provider, Karthikeyan Houser MD Social History Tobacco Use Types Packs/Day Years Used Date Smoking Tobacco: Never Assessed Comments Unknown Sex and Gender Information Value Date Recorded Sex Assigned at Not on file Legal Sex Female 6:09 PM CDT Gender Identity Not on file Sexual Orientation Not on file documented as of this encounter Miscellaneous Notes * Cerner Conversion Note - [facility] Mik Thorne MD - 10/29/2019 6:47 PM EST [facility] [address] [place] [address] PRATIK SHABAZZ :1970 Visit Time:10/29/2019 [...] with any other physician scheduling needs at [phone]. Rest, fluids, follow up with pcp in [...] range between ( 1.0 and 7.0 ) [place] #: 0.72 K/uL -- Normal range between ( 0.24 and 0.82 ) Eos #: 0.42 K/uL -- Normal range between ( 0.04 and 0.54 ) [place] %: 7.4 % -- Normal range between [...] you start to feel better. ??? Take zala-qra-shgvhuh and prescription medicines only as told by [...] 05/30/2006 Document Revised: 05/14/2017 Document Reviewed: 05/14/2017 [employer] Interactive Patient Education ?? 2019 [employer]. Emergency Awareness and Preventative Care STROKE is [...] Assistance with quitting is available by contacting 3-042-DNEH-NOW. This is a free resource providing counseling, [...] was given the opportunity to ask questions. Patient/Bus Transportation Manager Name: Patient/Bus Transportation Manager Signature: Relationship to Patient: Clinician/Hospital Bus Transportation Manager Signature: Please Provide a Telephone Number Where You Can Be Reached: Is it Permissible To Leave a Message? Date: documented in this encounter Plan of Treatment Upcoming Encounters Date Type Department Care Team (Late st Contact Info) Description 11/03/2025 12:45 PM EST Office Visit [facility] Pulmonology - [address] [place] [phone] Ben Barrios MD [address] [place] [address] documented as of this encounter Visit Diagnoses Not on filedocumented in this encounter Care Teams Right Of Way Appraiser Relationship Specialty Start Date End Date Amie Pena MD [address] [place] [address] PCP - General Family Medicine 10/31/22 04/08/23 Marvel Grayson MD [address] [place] [address] [place] [address] PCP - General Family Medicine 05/17/23 Marvel Grayson [address] [place] [address] Family Practice 04/09/23 documented as of this encounter
--- OUTSIDE RECORDS SUMMARY | 2025-07-22 07:45 | XMS_ITS | Encounter Summary ---
Author Organization [employer] ([place], [place], [place], [place], [place]) Address [address] [place] [address] Care Team Providers Care Communications Operator Name Role Phone Amie Pena MD Primary Care Provider [phone] Marvel Grayson MD Primary Care Provider [phone] Encounter Details Date Type Department Care Team (Late st Contact Info) Description 07/11/2019 Transcribed Document [facility] Family Medicine [address] [place] [address] ProviderMik MD [address] [place] [address] Social History Tobacco Use Types Packs/Day Years Used Date Smoking Tobacco: Never Assessed Comments Unknown Sex and Gender Information Value Date Recorded Sex Assigned at Not on file Legal Sex Female 6:09 PM CDT Gender Identity Not on file Sexual Orientation Not on file documented as of this encounter Miscellaneous Notes * [employer]ner Conversion Note - Mik ProviderMD - 07/11/2019 12:51 PM BIOMETRICS TECHNICIAN UM Authorization Entered On: 07/11/2019 12:52 EST Performed On: 07/11/2019 12:51 EST by FREDERIC PHAM RN-Utilization Review Primary Insurance Authorization Authorization and Policy Numbers : Insurance 1 Health Plan: [employer] Policy Number: [id number] Authorization Number: Insurance Primary Name : [employer] Authorization Status-Primary : Awaiting callback Reference Number-Primary : [id number] Authorized Service Begin Date-Primary : 07/05/2019 EDT Authorization Comments-Primary : [facility] auth still pending per website Historical Authorization Comments-Primary : Comment 1: Per DM, initial clinicals requested despite clinicals having been attached to auth on [facility] Portal. Clinicals faxed via [employer]. (SHAAN RICHTER Rn-Utilization Review 07/10/2019 15:26) Comment 2: [facility] auth still pending per website (FREDERIC PHAM RN-Utilization Review 07/10/2019 10:04) Comment 3: [facility] auth still pending per website (FREDERIC PHAM RN-Utilization Review 07/09/2019 09:54) Comment 4: [facility] auth still pending per website (FREDERIC PHAM RN-Utilization Review 07/08/2019 13:30) Comment 5: [facility] auth still pending per website (FREDERIC PHAM RN-Utilization Review 07/07/2019 13:48) Comment 6: Clinicals submitted via [facility] portal. (SHAAN RICHTER Rn-Utilization Review 07/06/2019 09:45) Comment 7: Reference number retrieved from [facility] portal. (SHAAN RICHTER Rn-Utilization Review 07/06/2019 09:37) FREDERIC PHAM RN-Utilization Review - 07/11/2019 12:51 EST documented in this encounter Plan of Treatment Upcoming Encounters Date Type Department Care Team (Late st Contact Info) Description 11/03/2025 12:45 PM EST Office Visit [facility] Pulmonology - [address] [place] [id number] Ben Barrios MD [address] [place] [address] documented as of this encounter Visit Diagnoses Not on filedocumented in this encounter Care Teams Communications Operator Relationship Specialty Start Date End Date Amie Pena MD [facility] [place] [address] [address] PCP - General Family Medicine 10/31/22 04/08/23 Marvel Grayson MD [address] [place] [address] [place] [address] PCP - General Family Medicine 05/17/23 Marvel Grayson [address] [place] [address] Family Practice 04/09/23 documented as of this encounter
--- OUTSIDE RECORDS SUMMARY | 2025-07-22 07:46 | XMS_ITS | Encounter Summary ---
Author Organization [employer] ([place], [place], [place], [place], [place]) Address [address] [place] [address] Care Team Providers Care Mechanical Press Operator Name Role Phone Amie Pena MD Primary Care Provider [phone] Marvel Grayson MD Primary Care Provider [phone] Encounter Details Date Type Department Care Team (Late st Contact Info) Description 10/29/2019 Transcribed Document [facility] Family Medicine [facility] [address] ProviderMik MD [address] [place] [address] Social History Tobacco Use Types Packs/Day Years Used Date Smoking Tobacco: Never Assessed Comments Unknown Sex and Gender Information Value Date Recorded Sex Assigned at Not on file Legal Sex Female 6:09 PM CDT Gender Identity Not on file Sexual Orientation Not on file documented as of this encounter Miscellaneous Notes * Cerner Conversion Note - Historical ProviderMD - 10/29/2019 2:14 PM SKILLS INSTRUCTOR [place] Suicide Severity Rating Scale (C-SSRS) Entered On: 10/29/2019 14:30 EST Performed On: 10/29/2019 14:29 EST by Candy Forman RN [place] Suicide Severity Rating Scale (C-SSRS) CSSRS Past Month Wish to be : No CSSRS Past Month Suicidal Thoughts : No CSSRS Lifetime Suicide Behavior : No Suicide Severity Rating Score : 0 Suicide Severity Rating : No Additional Care Required at this time Candy Forman, RN - 10/29/2019 14:29 EST Electronically signed by [place] [facility] Conversion Landfill Attendant Cerner at 12/16/2022 10:44 AM CDT documented in this encounter Plan of Treatment Upcoming Encounters Date Type Department Care Team (Late st Contact Info) Description 11/03/2025 12:45 PM EST Office Visit [facility] Pulmonology - [address] [place] [id number] Ben Barrios MD [address] [place] [address] documented as of this encounter Visit Diagnoses Not on filedocumented in this encounter Care Teams Mechanical Press Operator Relationship Specialty Start Date End Date Amie Pena MD [address] [place], [place] [address] [address] PCP - General Family Medicine 10/31/22 04/08/23 Marvel Grayson MD [address] [place] [address] PCP - General Family Medicine 05/17/23 Marvel Grayson [address] [place] [address] Family Practice 04/09/23 documented as of this encounter
--- OUTSIDE RECORDS SUMMARY | 2025-07-22 07:47 | XMS_ITS | Encounter Summary ---
Author Organization [employer] ([place], [place], [place], [place], [place]) Address [address] [place] [address] Care Team Providers Care Senior Vice President Name Role Phone Marbella Pena MD Primary Care Provider [phone] Marvel Grayson MD Primary Care Provider [phone] Encounter Details Date Type Department Care Team (Late st Contact Info) Description 08/06/2020 Transcribed Document [facility] [place] [address] [place] [address] ProviderMik MD [address] [place] [address] Social History Tobacco Use Types Packs/Day [...] Mik Thorne MD - 08/06/2020 2:44 PM DISEASE CASE MANAGER Patient: PRATIK SHABAZZ Age: 49 years Sex: [...] at 40 Years. Removal of ovarian cyst ([id number]). I&D to left finger. Hysterectomy ([id number]).. Family history: No family history items have [...] EST Height Source Estimated Height Entry Format [place] Height/Length, DANISH (ft) 5 ft Height/Length DANISH 11 Inch CLINICALHEIGHT 180.34 cm [place] Body Weight 70.31 kg Weight Source, ED Critical estimated dosing weight Weight Entry Format [place] Weight Portuguese lb 200 lb CLINICALWEIGHT 90.91 kg Body Surface Area (BSA) 2.11 m2 Body Mass Index 28 kg/m2 HI . Oxygen Saturation 08/06/2020 14:01 EST Oxygen Saturation 94 % . General: Alert, mild distress. Brooke coma scale: Total score: Total score: 15. [...] 14:47 EST, Discharge to: Home. Prescriptions: Prescription [facility] Pharmacy: [facility] 7.5 mg-325 mg oral tablet (Prescribe): 1 Tab, Oral, Q4H, for 3 Day(s), PRN: as needed for pain, 18 Tab, 0 Refill(s). Patient was given the following educational materials: Back Injury Prevention. Limitations: Limited activity. Follow up with: MARBELLA PENA Within 2 to 3 days. Counseled: Patient, Regarding diagnosis, Regarding diagnostic results, Regarding treatment plan, Regarding prescription. Electronically signed by Karthikeyan Bean Conversion Sintering Plant Supervisor Cerner at 12/16/2022 10:42 AM CDT documented in this encounter Plan of Treatment Upcoming Encounters Date Type Department Care Team ([facility] st Contact Info) Description 11/03/2025 12:45 PM EST Office Visit [facility] Pulmonology - [address] [place] [address] Ben Barrios MD [address] [place] [address] documented as of this encounter Visit Diagnoses Not on filedocumented in this encounter Care Teams Senior Vice President Relationship Specialty Start Date End Date Marbella Pena MD [address] [place] [address] [place] [address] PCP - General Family Medicine 10/31/22 04/08/23 Marvel Grayson MD [address] [place] [address] [place] [address] PCP - General Family Medicine 05/17/23 Marvel Grayson [address] [place] [address] Family Practice 04/09/23 documented as of this encounter
--- OUTSIDE RECORDS SUMMARY | 2025-07-22 07:47 | XMS_ITS | Encounter Summary ---
Author Organization [employer] ([place], [place], [place], [place], [place]) Address [address] [place] [address] Care Team Providers Care Business Office Manager Name Role Phone Amie Pena MD Primary Care Provider Marvel Grayson MD Primary Care Provider [phone] Encounter Details Date Type Department Care Team (Late st Contact Info) Description 09/25/2018 Transcribed Document [facility] Radiology [address] [place] [address] Christina Carmen MD [facility] Dept [place] [address] Social History Tobacco Use Types Packs/Day Years [...] Years. Removal of ovarian cyst (SNOMED CT [id number]). I&D to left finger.. Family history: No [...] EST Height Source Stated Height Entry Format [place] Height/Length, [place] (ft) 5 ft Height/Length [place] 1 Inch CLINICALHEIGHT 154.94 cm [place] Body Weight 47.45 kg Weight Source, ED Critical estimated dosing weight Weight Entry Format [place] Weight Azeri lb 205 lb CLINICALWEIGHT 93.18 kg Body [...] ED Adult Triage: ED Clinical Reconciliation: ED landfill gas technician: Rapid Strep Screen: Prescriptions Prescribed azithromycin 500 [...] 17:23 EST, Discharge to: Home. Prescriptions: Prescription Medical Liaison Pharmacy: azithromycin 500 mg oral tablet (Prescribe): 2 Tab, Oral, Daily, for 5 Day(s), 10 Tab, 0 Refill(s), Prescription Medical Liaison Pharmacy: azithromycin 500 mg oral tablet (Prescribe): [...] Description 11/03/2025 12:45 PM EST Office Visit [facility] Pulmonology - [address] [place] [address] Ben Barrios MD [address] [place], [place] [address] documented as of this encounter Visit Diagnoses Not on filedocumented in this encounter Care Teams Business Office Manager Relationship Specialty Start Date End Date Faughn, Amie L, MD [address] [place] [address] [place] [address] PCP - General Family Medicine 10/31/22 04/08/23 Marvel Grayson MD [address] [place] [address] PCP - General Family Medicine 05/17/23 Marvel Grayson [address] [place] [address] Family Practice 04/09/23 documented as of this encounter
--- OUTSIDE RECORDS SUMMARY | 2025-07-22 07:47 | XMS_ITS | Encounter Summary ---
Author Organization [employer] ([place], [place], [place], [place], [place]) Address [address] [place] [address] Care Team Providers Care Training And Development Specialist Name Role Phone Marbella Pena MD Primary Care Provider [phone] Marvel Grayson MD Primary Care Provider [phone] Encounter Details Date Type Department Care Team (Late st Contact Info) Description 08/06/2020 Transcribed Document [facility] [place] [address] ProviderMik MD [address] [place] [address] Social History Tobacco Use Types Packs/Day Years Used Date Smoking Tobacco: Never Assessed Comments Unknown Sex and Gender Information Value Date Recorded Sex Assigned at Not on file Legal Sex Female 6:09 PM CDT Gender Identity Not on file Sexual Orientation Not on file documented as of this encounter Miscellaneous Notes * Cerner Conversion Note - Mik ProviderMD - 08/06/2020 2:52 PM MANAGEMENT DEVELOPMENT SPECIALIST CHARAN Lowery [address] [place] [address] PRATIK SHABAZZ :1970 Visit Time:08/06/2020 [...] When Within 2 to 3 days Where: [place] [address]- Business (1) Allergies Levaquin Cymbalta (suicidal) Haldol (Hives) Ultram (Hives) Vraylar (Suicidal thoughts) codeine (Respiratory depression) doxycycline (Vomiting) penicillin (Headache) Immunizations This Visit No Immunizations Found Medications What How Much When Instructions Next Dose acetaminophen-hydrocodone (Lortab 5/ 325 oral tablet) Oral Every 6 Hours acetaminophen-hydrocodone ([place] 7.5 mg-325 mg oral tablet) 1 Tablet(s) [...] as you can. Do not try to tow picker a heavy object that is far [...] on shelves at waist level, and put supervisor major appliance assembly objects on lower or higher shelves. ??? [...] 09/27/2005 Document Revised: 10/05/2018 Document Reviewed: 10/05/2018 [employer] Patient Education ?? 2020 [employer] Emergency Awareness and Preventative Care STROKE is [...] Assistance with quitting is available by contacting 3-806-QXXY-NOW. This is a free resource providing counseling, [...] was given the opportunity to ask questions. Patient/Zinc Plater Name: Patient/Zinc Plater Signature: Relationship to Patient: Clinician/Hospital Zinc Plater Signature: Please Provide a Telephone Number Where You Can Be Reached: Is it Permissible To Leave a Message? Date: documented in this encounter Plan of Treatment Upcoming Encounters Date Type Department Care Team (Late st Contact Info) Description 11/03/2025 12:45 PM EST Office Visit [facility] Pulmonology - [address] [place] [address] Ben Barrios MD [address] [place] [address] documented as of this encounter Visit Diagnoses Not on filedocumented in this encounter Care Teams Training And Development Specialist Relationship Specialty Start Date End Date Marbella Pena MD [address] [place] [address] [place] [address] PCP - General Family Medicine 10/31/22 04/08/23 Marvel Grayson MD [address] [place] [address] [place] [address] PCP - General Family Medicine 05/17/23 Marvel Grayson [address] [place] [address] Family Practice 04/09/23 documented as of this encounter
--- OUTSIDE RECORDS SUMMARY | 2025-07-22 07:48 | XMS_ITS | Encounter Summary ---
Author Organization [email or web address] ([place], [place], [place], [place], [place]) Address [address] [place] [address] Care Team Providers Care Food Service Kitchen Supervisor Name Role Phone Amie Pena MD Primary Care Provider [phone] Marvel Grayson MD Primary Care Provider [phone] Encounter Details Date Type Department Care Team (Late st Contact Info) Description 07/07/2019 Transcribed Document [facility] Family Medicine [address] [place] [address] ProviderMik MD [address] [place] [address] Social History Tobacco Use Types Packs/Day Years Used Date Smoking Tobacco: Never Assessed Comments Unknown Sex and Gender Information Value Date Recorded Sex Assigned at Not on file Legal Sex Female 6:09 PM CDT Gender Identity Not on file Sexual Orientation Not on file documented as of this encounter Miscellaneous Notes * [employer]ner Conversion Note - Historical ProviderMD - 07/07/2019 3:47 PM INFORMATION AND REFERRAL DIRECTOR Discharge Summary, PT Entered On: 07/07/2019 15:48 [...] reviewed this discharge summary and I concur. Jose Francisco Andres, PT JOSE FRANCISCO ANDRES, PT - 07/07/2019 15:49 EST Jail Goals Other PT LTG Grid Goal #1 [...] : Not met Not met IKE ARIAS, ASSEMBLER DIELECTRIC HEATER - 07/07/2019 15:47 EST IKE ARIAS PTA - 07/07/2019 15:47 EST documented in this encounter Plan of Treatment Upcoming Encounters Date Type Department Care Team (Late st Contact Info) Description 11/03/2025 12:45 PM EST Office Visit [facility] Pulmonology - [address] [place] [address] Ben Barrios MD [address] [place] [address] documented as of this encounter Visit Diagnoses Not on filedocumented in this encounter Care Teams Food Service Kitchen Supervisor Relationship Specialty Start Date End Date Amie Pena MD [address] [place] [address] PCP - General Family Medicine 10/31/22 04/08/23 Marvel Grayson MD [address] [place] [address] PCP - General Family Medicine 05/17/23 Marvel Grayson [address] [facility] [place] [id number] Family Practice 04/09/23 documented as of this encounter
--- OUTSIDE RECORDS SUMMARY | 2025-07-22 07:48 | XMS_ITS | Encounter Summary ---
Author Organization [employer] ([place], [place], [place], [place], [place]) Address [address] [place] [address] Care Team Providers Care Licensed Psychologist Name Role Phone Amie Pena MD Primary Care Provider [phone] Marvel Grayson MD Primary Care Provider [phone] Encounter Details Date Type Department Care Team (Late st Contact Info) Description 07/07/2019 Transcribed Document [facility] Family Medicine [address] [place] [address] ProviderMik MD [address] [place] [address] Social History Tobacco Use Types Packs/Day [...] Mik Thorne MD - 07/07/2019 12:52 PM SURGICAL SCRUB TECH Patient Education Materials Follows: Spinal Fusion, Adult, Care After This sheet gives you information about how to care for yourself after your procedure. Your doctor may also give you more specific instructions. If you have problems or questions, contact your doctor. Follow these instructions at home: Medicines ??? Take kaue-jgq-pchjiyj and prescription medicines only as told by [...] cannot use soap and water, use hand vp lab. ? Change your bandage as told by [...] your pee (urine) pale yellow. ? Take jexm-ofv-mmggkrh or prescription medicines. ? Eat foods that [...] 12/14/2011 Document Revised: 12/04/2017 Document Reviewed: 12/04/2017 [employer] Interactive Patient Education ? 2019 [employer] Sciatica Sciatica is pain, numbness, weakness, [...] these instructions at home: Medicines ??? Take bnjr-der-rdogkbr and prescription medicines only as told by [...] 05/29/2009 Document Revised: 01/25/2017 Document Reviewed: 04/28/2016 [employer] Interactive Patient Education ? 2019 [employer] Peripheral Neuropathy Peripheral neuropathy is a [...] pain. Medicines may include: ? Prescription or ldoz-ryd-hivkizg pain medicine. ? Antiseizure medicine. ? Antidepressants. ? Pain-relieving patches that are applied to painful areas of skin. ??? Surgery to relieve pressure on a nerve or to destroy a nerve that is causing pain. ??? Physical therapy to help improve movement and balance. ??? Devices to help you move around (assistive devices). Follow these instructions at home: Medicines ??? Take lpkt-xob-ggxcxeu and prescription medicines only as told by [...] 08/10/2003 Document Revised: 10/29/2017 Document Reviewed: 10/29/2017 [employer] Interactive Patient Education ? 2019 [employer] Immunology Asthma Action Plan, Adult Introduction [...] for Disease Control and Prevention: www.cdc.gov/asthma ??? [place] [employer]: www.lung.org This information is not intended to replace advice given to you by your health care provider. Make sure you discuss any questions you have with your health care provider. Document Released: 06/17/2010 Document Revised: 05/01/2018 Document Reviewed: 05/01/2018 [employer] Interactive Patient Education ? 2019 [employer] Pulmonary Medicine Chronic Obstructive Pulmonary Disease [...] these instructions at home: Medicines ??? Take mkkp-loz-bynkzdg and prescription medicines (inhaled or pills) only [...] 05/30/2006 Document Revised: 02/13/2018 Document Reviewed: 09/24/2017 [employer] Interactive Patient Education ? 2019 [employer] Chronic Obstructive Pulmonary Disease Exacerbation Chronic [...] these instructions at home: Medicines ??? Take wohr-jqq-tzmergi and prescription medicines only as told by [...] and water are not available, use hand vp lab. ??? During flu season, avoid enclosed spaces [...] 06/16/2008 Document Revised: 02/13/2018 Document Reviewed: 09/24/2017 [employer] Interactive Patient Education ? 2019 [employer] documented in this encounter Plan of Treatment Upcoming Encounters Date Type Department Care Team (Late st Contact Info) Description 11/03/2025 12:45 PM EST Office Visit [facility] Pulmonology - [address] [place] [address] Ben Barrios MD [address] [place] [address] documented as of this encounter Visit Diagnoses Not on filedocumented in this encounter Care Teams Licensed Psychologist Relationship Specialty Start Date End Date Amie Pena MD [address] [place] [address] [place] [address] PCP - General Family Medicine 10/31/22 04/08/23 Marvel Grayson MD [address] [place] [address] [place] [address] PCP - General Family Medicine 05/17/23 Marvel Grayson [address] [place] [address] Family Practice 04/09/23 documented as of this encounter
--- OUTSIDE RECORDS SUMMARY | 2025-07-22 07:49 | XMS_ITS | Encounter Summary ---
Author Organization [employer] ([place], [place], [place], [place], [place]) Address [address] [place] [address] Care Team Providers Care Risk Consultant Name Role Phone Amie Pena MD Primary Care Provider [phone] Marvel Grayson MD Primary Care Provider [phone] Encounter Details Date Type Department Care Team (Late st Contact Info) Description 07/06/2019 Transcribed Document [facility] Family Medicine [address] [place] [address] ProviderMik MD [address] [place] [address] Social History Tobacco Use Types Packs/Day Years Used Date Smoking Tobacco: Never Assessed Comments Unknown Sex and Gender Information Value Date Recorded Sex Assigned at Not on file Legal Sex Female 6:09 PM CDT Gender Identity Not on file Sexual Orientation Not on file documented as of this encounter Miscellaneous Notes * Cerner Conversion Note - Mik ProviderMD - 07/06/2019 2:27 PM METAL BUFFER Pain Assessment Entered On: 07/07/2019 12:53 EST Performed On: 07/07/2019 12:26 EST by Vy Salazar, RN Intervention Information: acetaminophen-HYDROcodone Performed by Vy Salazar, RN on 07/07/2019 11:26:00 EST acetaminophen-HYDROcodone,1Tab Oral,Pain [...] of the form. Electronically signed by [place], [facility] Conversion Floor Mechanic Cerner at 12/16/2022 10:51 AM CDT documented in this encounter Plan of Treatment Upcoming Encounters Date Type Department Care Team (Late st Contact Info) Description 11/03/2025 12:45 PM EST Office Visit [facility] Pulmonology - [address] [place] [address] Ben Barrios MD [address] [place] [address] documented as of this encounter Visit Diagnoses Not on filedocumented in this encounter Care Teams Risk Consultant Relationship Specialty Start Date End Date Amie Pena MD [address] [place] [address] Dr[place], [place] [id number] PCP - General Family Medicine 10/31/22 04/08/23 Marvel Grayson MD [address] [place] [address] [place] [address] PCP - General Family Medicine 05/17/23 Marvel Grayson [address] [place] [address] Family Practice 04/09/23 documented as of this encounter
--- OUTSIDE RECORDS SUMMARY | 2025-07-22 07:49 | XMS_ITS | Encounter Summary ---
Author Organization [employer] ([place], [place], [place], [place], [place]) Address [address] [place] [address] Care Team Providers Care Principal Network Architect Name Role Phone Amie Pena MD Primary Care Provider [phone] Marvel Grayson MD Primary Care Provider [phone] Encounter Details Date Type Department Care Team (Late st Contact Info) Description 07/07/2019 Transcribed Document [facility] Family Medicine [address] [place] [address] ProviderMik MD [address] [place] [address] Social History Tobacco Use Types Packs/Day Years Used Date Smoking Tobacco: Never Assessed Comments Unknown Sex and Gender Information Value Date Recorded Sex Assigned at Not on file Legal Sex Female 6:09 PM CDT Gender Identity Not on file Sexual Orientation Not on file documented as of this encounter Miscellaneous Notes * Cerner Conversion Note - Historical ProviderMD - 07/07/2019 2:00 AM CEMENTER MACHINE APPLICATOR Process Safety Engineering Technologist Details Entered On: 07/07/2019 0:54 EST Performed [...] : Appropriate Arterial Line : No Max Pereyra, RN - 07/07/2019 0:54 EST Electronically signed by [place], [facility] Conversion Explosive Ordnance Disposal Technician Cerner at 12/16/2022 10:36 AM CDT documented in this encounter Plan of Treatment Upcoming Encounters Date Type Department Care Team (Late st Contact Info) Description 11/03/2025 12:45 PM EST Office Visit [facility] Pulmonology - [address] [place] [phone] Ben Barrios MD [address] [place] [address] documented as of this encounter Visit Diagnoses Not on filedocumented in this encounter Care Teams Principal Network Architect Relationship Specialty Start Date End Date Amie Pena MD [address] [facility] [place] [address] PCP - General Family Medicine 10/31/22 04/08/23 Marvel Grayson MD [address] [place] [address] PCP - General Family Medicine 05/17/23 Marvel Grayson [address] [place] [address] Family Practice 04/09/23 documented as of this encounter
--- OUTSIDE RECORDS SUMMARY | 2025-07-22 07:49 | XMS_ITS | Clinical Summary ---
Author Organization [facility] Address [address] [place] [address] Phone Care Team Providers Care Gaming Commissioner Name Role Phone Becky CORONADO, Amie Primary Care Physician [phone] Conditions or Problems Problem Name Problem Code [...] mass index [BMI] 27.0-27.9, adult Bronchitis, acute 50098676 (SNOMED CT) 05/06 Inactive 05/06 Rea Saavedra APRN Acute bronchitis Herpes simplex, oral 532394894 (SNOMED CT) 05/06 Active 05/06 Rea Saavedra APRN Oral herpes simplex infection Body mass index (BMI) 27.0-27.9; adult Z68.27 (ICD-10-CM ) 12/26 Removed 12/30 Amie Pena MD Body mass index [BMI] 27.0-27.9, adult Body mass index (BMI) 26.0-26.9; adult Z68.26 (ICD-10-CM ) 11/01 Correction 11/01 Amie Pena MD Body mass index [BMI] 26.0-26.9, adult Tobacco User 277538090 (SNOMED CT) 12/26 Active 12/26 Amie Pena [...] index [BMI] 28.0-28.9, adult Hx of STEMI 559557766 (SNOMED CT) 10/24 Active 10/26 Charissa Breen APRN History of artificial heart valve S/P STENT Health maintenance 07175691 (SNOMED CT) Resolved Charissa Breen APRN History AND physical examination Health maintenance 17956919 (SNOMED CT) Removed Amie Pnea MD History AND physical examination Body mass [...] mass index [BMI] 28.0-28.9, adult Vitamin deficiency 86989697 (SNOMED CT) 04/08 Active 04/08 Nora Borrero APRN PMHNP Vitamin deficiency Body mass index (BMI) 28.0-28.9; adult Z68.28 (ICD-10-CM ) 02/08 Removed 02/09 Nora Feck SANDSTONE INSPECTOR REPAIRER, PMHNP Body mass index [BMI] 28.0-28.9, adult Body mass index (BMI) 29.0-29.9; adult Z68.29 (ICD-10-CM ) 10/29 Correction 10/30 Nora Feck SANDSTONE INSPECTOR REPAIRER, PMHNP Body mass index [BMI] 29.0-29.9, adult High risk medication management 515870521 (SNOMED CT) 02/08 Active 02/08 Nora Feck SANDSTONE INSPECTOR REPAIRER, PMHNP High risk drug monitoring Anxiety disorder 003274289 (SNOMED CT) 02/08 Active 02/08 Nora Feck SANDSTONE INSPECTOR REPAIRER, PMHNP Anxiety disorder PTSD 95763004 (SNOMED CT) 02/08 Active 02/08 Nora Feck SANDSTONE INSPECTOR REPAIRER, PMHNP Post-traumatic stress disorder Bipolar 1 disorder, mixed 28543485 (SNOMED CT) 02/08 Active 02/08 Nora Feck SANDSTONE INSPECTOR REPAIRER, PMHNP Mixed bipolar I disorder Axillary mass 824524673 (SNOMED CT) 01/24 Active 01/25 Amie Pena MD Mass of axilla Palpitation s, recurrent 00315795 (SNOMED CT) 10/29 Resolved 10/29 Charissa Breen APRN Palpitations Cough 11158492 (SNOMED CT) 09/18 Resolved 09/18 Charissa Breen APRN Cough Acquired absence of both cervix and uterus 193436121 (SNOMED CT) 03/02 Resolved 02/05 Charissa Breen APRN Total hysterectomy Health maintenance 35549304 (SNOMED CT) 02/05 Resolved 02/05 Charissa Breen APRN History AND physical examination Body mass index (BMI) 29.0-29.9; adult Z68.29 (ICD-10-CM ) 10/29 Removed 10/30 Amie Pena MD Body mass index [BMI] 29.0-29.9, adult Subcutaneou s mass of back 212155275 (SNOMED CT) 10/29 Active 10/30 Amie Pena MD Mass of skin Palpitation s, recurrent 33743329 (SNOMED CT) 10/29 Active 10/30 Amie Pena MD Palpitations Family hx of coronary arterioscle rosis (CAD) 148802700 (SNOMED CT) 10/29 Active 10/29 Amie Pena MD Family history of coronary arterioscleros is Cancer, family hx 666546039 (SNOMED CT) 10/29 Active 10/29 Amie Pena MD Family history of malignant neoplasm Palpitation s, recurrent 45579000 (SNOMED CT) 10/29 Removed 10/29 Amie Pena MD Palpitations Body mass index (BMI) 29.0-29.9; adult Z68.29 (ICD-10-CM ) 09/30 Correction 09/30 Amie Pena MD Body mass index [BMI] 29.0-29.9, adult Joint pain, hand 355817457 (SNOMED CT) 10/29 Active 10/29 Amie Pena MD Pain of joint of hand Localized swelling on back 962452749 (SNOMED CT) 10/29 Active 10/29 Amie Pena MD Finding of back Body mass index (BMI) 29.0-29.9; adult Z68.29 (ICD-10-CM ) 09/30 Removed 09/30 Amie Pena MD Body mass index [BMI] 29.0-29.9, adult Body mass index (BMI) 29.0-29.9; adult Z68.29 (ICD-10-CM ) 05/03 Correction 05/03 Amie Pena MD Body mass index [BMI] 29.0-29.9, adult Cough 09808950 (SNOMED CT) 09/18 Removed 09/18 Amie Pena MD Cough Body mass index (BMI) 29.0-29.9; adult Z68.29 (ICD-10-CM ) 05/03 Removed 05/03 Amie Pena MD Body mass index [BMI] 29.0-29.9, adult Body mass index (BMI) 28.0-28.9; adult Z68.28 (ICD-10-CM ) 02/05 Correction 02/05 Amie Pena MD Body mass index [BMI] 28.0-28.9, adult Chronic pain 48439730 (SNOMED CT) 05/03 Active 05/03 Amie Pena MD Chronic pain 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 05/03 Amie Pena 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 474584216 (SNOMED CT) 03/02 Active 02/05 Amie Pena MD Total hysterectomy Acquired absence of both cervix and uterus 708297877 (SNOMED CT) 03/02 Removed 02/05 Amie Pena MD Total hysterectomy Body mass index (BMI) 28.0-28.9; adult Z68.28 (ICD-10-CM ) 02/05 Removed 02/05 Amie Pena MD Body mass index [BMI] 28.0-28.9, adult Health maintenance 87986632 (SNOMED CT) 02/05 Removed 02/05 Amie Pena MD History AND physical examination Exposure to hepatitis C 313139783 (SNOMED CT) 02/05 Active 02/05 Amie Pena MD Exposure to Hepatitis C virus COPD 20608496 (SNOMED CT) 02/05 Active 02/05 Amie Pena MD Chronic obstructive pulmonary disease Asthma 151789731 (SNOMED CT) 02/05 Active 02/05 Amie Pena MD Asthma Medications Medication Instructions Start Date Stop Date Generic Name NDC Provider CEPHALEXIN 500 MG CAPS Take 1 capsule by mouth three times a day cephalexin 46572169733 Amie Pena MD ACYCLOVIR 5 % CREA Apply 1 a small amount to affected area five times a day for four days. START SOON POSSIBLE AFTER ONSET OF COLD SORES. acyclovir 09639762674 Rea Saavedra APRN ZITHROMAX Z-KISHAN 250 MG TABS Take 2 tablet by mouth once a day as directed 2 tablets for 1 day then 1 tablet once a day for 4 days. TAKE WITH FOOD. azithromycin 36479262771 Rea Saavedra APRN TIZANIDINE HCL 2 MG TABS TAKE 1 TABLET BY MOUTH THREE TIMES A DAY NEEDED FOR MUSCLE PAIN. 02/13 tizanidine 20054527117 Mickie Florence APRN TIZANIDINE HCL 2 MG TABS TAKE 1 TABLET BY MOUTH 3 TIMES A DAY NEEDED FOR MUSCLE PAIN tizanidine 36907683774 Amie Pena MD TIZANIDINE HCL 2 MG TABS TAKE 1 TABLET BY MOUTH THREE TIMES A DAY NEEDED FOR MUSCLE PAIN. tizanidine 94232176670 Amie Pena MD ATIVAN 0.5 MG TABS Take half or 1 tablet twice a day as needed for anxiety. lorazepam 49252128578 Amie Pena MD ISOSORBIDE MONONITRATE ER 60 MG [id number] Take 1 tablet by mouth every morning isosorbide mononitrate 87511075267 Rea Saavedra APRN ALBUTEROL SULFATE HFA 108 (90 Base) MCG/ACT AERS Inhale 2-4 puff every four hours as needed albuterol sulfate 68714021593 Amie Pena MD TRAZODONE HCL 50 MG TABS 0.5-2 tablet by mouth at bedtime as directed : take approx 30min prior to bedtime as needed 11/01 trazodone 27038719016 Nora Borrero APRN, PMHNP LINZESS 145 MCG CAPS Take 1 capsule by mouth once a day 11/01 linaclotide 73342442505 Amie Pena MD SHINGRIX 50 MCG/0.5ML SUSR Inject 1/2 ml intramuscularly single dose 11/01 varicella-zoster ge-as01b (pf) 08062639578 Amie Pena MD LATUDA 40 MG TABS Take 1 tablet by mouth every night with meals take with at least 250 calories 11/01 lurasidone 39215271879 Nora Feck SANDSTONE INSPECTOR REPAIRER, PMHNP ALBUTEROL SULFATE HFA 108 (90 Base) MCG/ACT AERS Take 2 puff every four hours as needed 11/01 albuterol sulfate 37036701697 Erinn Edilberto CORBIN TOPIRAMATE 25 MG TABS topiramate 39239659741 Na Son MA NITROGLYCERIN 0.4 MG SUBL nitroglycerin 31310806990 Na paiz MA IBUPROFEN 800 MG TABS TAKE 1 TABLET BY MOUTH EVERY 8 HOURS NEEDED 10/26 ibuprofen 82346981609 Amie Pena MD METOPROLOL TARTRATE 25 MG TABS metoprolol tartrate 06956391020 Charissa Breen APRN ATORVASTATIN CALCIUM 80 MG TABS atorvastatin 99687305996 Charissa Breen APRN BRILINTA 90 MG TABS BID ticagrelor 55495499178 Charissa Breen APRN TIZANIDINE HCL 2 MG TABS Take 1 tablet by mouth three times a day as needed for pain TAKE 1 TABS THREE TIMES A DAY NEEDED FOR MUSCLE PAIN. 10/23 tizanidine 48408863798 Amie Pena MD TIZANIDINE HCL 2 MG TABS TAKE 1 TABLET BY MOUTH THREE TIMES A DAY NEEDED FOR MUSCLE PAIN. tizanidine 10065721489 Amie Pena MD LORATADINE 10 MG TABS TAKE 1 TABLET BY MOUTH 1 TIME A DAY NEEDED FOR ALLERGIES loratadine 47171185381 Amie Pena MD IBUPROFEN 800 MG TABS TAKE 1 TABLET BY MOUTH EVERY 8 HOURS NEEDED ibuprofen 21572607288 Amie Pena MD IBUPROFEN 800 MG TABS TAKE 1 TABLET BY MOUTH EVERY 8 HOURS NEEDED ibuprofen 16294574968 Amie Pena MD CLARITIN 10 MG TABS Take 1 tablet by mouth once a day as needed 09/25 loratadine 92809508612 Erinn Casanova CMA LORATADINE 10 MG TABS TAKE 1 TABLET BY MOUTH 1 TIME A DAY NEEDED FOR ALLERGIES loratadine 48313435348 Amie Pena MD VITAMIN B-12 1000 MCG TABS Take 1 tablet by mouth once a day cyanocobalamin (vitamin b-12) 82094749882 Amie Pena MD TIZANIDINE HCL 2 MG TABS TAKE 1 TABS THREE TIMES A DAY NEEDED FOR MUSCLE PAIN. tizanidine 43086745547 Amie Pena MD SHINGRIX 50 MCG/0.5ML SUSR Inject 1/2 ml intramuscularly single dose varicella-zoster ge-as01b (pf) 63161380856 Amie Pena MD TIZANIDINE HCL 2 MG TABS Take 1 tablet by mouth three times a day as needed for pain TAKE 1 TABS THREE TIMES A DAY NEEDED FOR MUSCLE PAIN. tizanidine 95930504816 Amie Pena MD LINZESS 145 MCG CAPS Take 1 capsule by mouth once a day linaclotide 96970660653 Amie Pena MD VITAMIN B-12 1000 MCG TABS Take 1 tablet by mouth once a day cyanocobalamin (vitamin b-12) 11740722081 Amie Pena MD HYDROCODONE-KIRSTIE TAMINOPHEN 7.5-325 MG TABS Take 1 tablet by mouth every six hours as needed hydrocodone-acet aminophen 79155563261 Garima Fitzpatrick MA GABAPENTIN 300 MG CAPS Take 1 capsule by mouth twice a day as needed for pain gabapentin 49927978771 Garima Fitzpatrick MA TRAZODONE HCL 50 MG TABS 0.5-2 tablet by mouth at bedtime as directed : take approx 30min prior to bedtime as needed trazodone 05472718324 Nora Feck SANDSTONE INSPECTOR REPAIRER, PMHNP QUETIAPINE FUMARATE 50 MG TABS 0.5-2 tablet by mouth at bedtime as needed 05/05 quetiapine 99914487415 Nora Feck SANDSTONE INSPECTOR REPAIRER, PMHNP QUETIAPINE FUMARATE 50 MG TABS TAKE 0.5-2 TABLET BY MOUTH AT BEDTIME NEEDED quetiapine 93565191648 Nora Feck SANDSTONE INSPECTOR REPAIRER, PMHNP GABAPENTIN 300 MG CAPS Take 1 capsule by mouth twice a day as needed for pain gabapentin 35750840474 Allison Wild MA HYDROCODONE-KIRSTIE TAMINOPHEN 7.5-325 MG TABS Take 1 tablet by mouth every six hours as needed hydrocodone-acet aminophen 93220355325 Allison Wild MA TIZANIDINE HCL 2 MG TABS Take 1 tablet by mouth three times a day as needed 03/04 tizanidine 45620181730 Charissa Breen APRN TIZANIDINE HCL 2 MG TABS TAKE 1 TABS THREE TIMES A DAY NEEDED FOR MUSCLE PAIN. tizanidine 84425934951 Amie Pena MD QUETIAPINE FUMARATE 50 MG TABS 0.5-2 tablet by mouth at bedtime as needed quetiapine 48728361502 Nora Espinosakyara SANDSTONE INSPECTOR REPAIRER, PMHNP LATUDA 40 MG TABS Take 1 tablet by mouth every night with meals take with at least 250 calories lurasidone 46824146707 Nora Jesúskyara SANDSTONE INSPECTOR REPAIRER, PMHNP IBUPROFEN 800 MG TABS Take 1 tablet by mouth every eight hours as needed 01/24 ibuprofen 77760868243 Amie Pena MD IBUPROFEN 800 MG TABS TAKE 1 TABLET BY MOUTH EVERY 8 HOURS NEEDED ibuprofen 15970747675 Amie Pena MD INCRUSE ELLIPTA 62.5 MCG/ACT AEPB Use 1 once a day umeclidinium 45846215317 Amie Pena MD TIZANIDINE HCL 2 MG TABS Take 1 tablet by mouth three times a day as needed tizanidine 43949404535 Charissa Breen APRN SYMBICORT 160-4.5 MCG/ACT AERO Use 2 twice a day budesonide-formo terol 97845335373 Amie Pena MD CLARITIN 10 MG TABS Take 1 tablet by mouth once a day as needed loratadine 93197104204 Erinn Casanova [employer] ALBUTEROL SULFATE HFA 108 (90 Base) MCG/ACT AERS Take 2 puff every four hours as needed albuterol sulfate 52266492001 Erinn Scandia [employer] IBUPROFEN 800 MG TABS Take 1 tablet by mouth every eight hours as needed ibuprofen 11947020200 Amie Pena MD HYDROCODONE-KIRSTIE TAMINOPHEN 5-325 MG TABS Take 1 tablet by mouth every six hours as needed hydrocodone-acet aminophen 25887666113 Amie Pena MD GABAPENTIN 300 MG CAPS Take 1 capsule by mouth at bedtime as needed for pain gabapentin 14678890695 Erinn Casanova [employer] TIZANIDINE HCL 2 MG TABS TAKE 1 TABS THREE TIMES A DAY NEEDED FOR MUSCLE PAIN. TIZANIDINE HCL 83976444447 Amie Pena MD TIZANIDINE HCL 2 MG TABS take 1 capsule three times a day as needed for muscle pain. TIZANIDINE HCL 62057549521 Amie Pena MD IBUPROFEN 800 MG TABS TAKE 1 TABLET BY MOUTH EVERY 8 HOURS NEEDED IBUPROFEN 18862864574 Amie ePna MD ZANAFLEX 4 MG ORAL CAPSULE take 1 capsule three times a day as needed for muscle pain. TIZANIDINE HCL 89672171460 Amie Pena MD SYMBICORT 160-4.5 MCG/ACT AERO USE 2 INHALATIONS TWICE A DAY BUDESONIDE-FORMO TEROL FUMARATE 00814693808 Amie Pena MD INCRUSE ELLIPTA 62.5 MCG/ACT AEPB USE 1 INHALATION ONCE A DAY UMECLIDINIUM BROMIDE 76154033168 Amie Pena MD SPIRIVA HANDIHALER 18 MCG CAPS USE 1 INHALATION ONCE A DAY 09/30 TIOTROPIUM BROMIDE MONOHYDRATE 08984714168 Amie Pena MD BREO ELLIPTA 100-25 MCG/ACT AEPB USE 1 INHALATION ONCE A DAY 09/30 FLUTICASONE FUROATE-VILANTER OL 62201758019 Amie Pena MD ZITHROMAX Z-KISHAN 250 MG TABS TAKE 2 TABLETS BY MOUTH ON DAY 1 THEN 1 TABLET BY MOUTH DAILY FOR 4 DAYS (DAY 2-5) 09/23 AZITHROMYCIN 21657217801 Amie Pena MD HYDROCODONE-KIRSTIE TAMINOPHEN 5-325 MG TABS take 1 tablet every 6 hours as needed for pain. HYDROCODONE-ACET AMINOPHEN 91595603661 Amie Pena MD ALBUTEROL SULFATE HFA 108 (90 Base) MCG/ACT AERS TAKE 2 PUFFS EVERY 4 HOURS NEEDED FOR WHEEZING ALBUTEROL SULFATE 27522560751 Amie Pena MD NYSTATIN 225634 UNIT/GM CREA APPLY THIN FILM 3 TIMES A DAY FOR 2 WEEKS 02/19 NYSTATIN 76780831922 Amie Pena MD CLARITIN 10 MG TABS TAKE 1 TABLET BY MOUTH 1 TIME A DAY NEEDED FOR ALLERGIES LORATADINE 64859291873 Amie Pena MD SPIRIVA HANDIHALER 18 MCG CAPS USE 1 INHALATION ONCE A DAY TIOTROPIUM BROMIDE MONOHYDRATE 12085857264 Amie Pena MD BREO ELLIPTA 100-25 MCG/ACT AEPB USE 1 INHALATION ONCE A DAY FLUTICASONE FUROATE-VILANTER OL 05493800506 Amie Pena MD Medications Administered No information [...] in Blood ABS NEUTROPH 5558 CELLS/UL 10*3/uL 3127-1269 N Neutrophils [#/volume] in Blood MPV 9.8 [...] Plan of Care Type Date Detail Referral [place] Referral General Surgery Referral General Referral excluded [...] Procedures Code Procedure Name Date Entry Date [facility]-[id number] Medication Reconciliation Inj Order Injection(s) Ordered [id number] 340B Depo medrol 80mg/ml Injection 2021/05/15 CPT-3074F Most recent systolic blood pressure <130 mm Hg CPT-3078F Most recent diastoli c blood pressure <80 mm Hg [facility]-[id number] Medication Reconciliation CPT-3074F Most recent systolic blood pressure <130 mm Hg CPT-3078F Most recent diastoli c blood pressure <80 mm Hg SCT-746956761 Giving encouragement to exercise SCT-784077302 Dietary management education/guidance/counseling [place] 4004F Patient screened for tobacco use and received tobacco cessation intervention SCT-[id number] Medication Reconciliation CPT-1159F Medication list docu mented in medical record CPT-1160F Review of all medica tions by a prescribing practitioner [facility] G1543 T1 Drug Screen STAND RACHELE-Urine w/o Confirmation SCT-709514870 Giving encouragement to exercise SCT-[id number] Medication Reconciliation CPT-3074F Most recent systolic blood pressure <130 mm Hg CPT-3078F Most recent diastoli c blood pressure <80 mm Hg CPT-1159F Medication list docu mented in medical record CPT-1160F Review of all medica tions by a prescribing practitioner [facility] 927 T1 B12 [facility] 6399 T1 CBC with diff [facility] 46076 T1 CMP [facility] 05565 T1 Lipid Panel [facility] 34779 T1 TSH reflex to free T4 202 10/06/00 Inj Order Injection(s) Ordered [id number] 340B Vitamin B-12 Injection CPT-15487 Cologuard 19471 Fluzone Quadrivalent CPT-79441 IMADM >18YR IM ROUTE 1ST VAC/TOXOID 06/17 SCT-[id number] Medication Reconciliation CPT-3074F Most recent systolic blood pressure <130 mm Hg CPT-3078F Most recent diastoli c blood pressure <80 mm Hg CPT-1159F Medication list docu mented in medical record CPT-1160F Review of all medica tions by a prescribing practitioner SCT-[id number] Medication Reconciliation CPT-3075F Most recent systolic blood pressure 130-139 mm Hg CPT-3079F Most recent diastoli c blood pressure 80-89 mm Hg CPT-3075F Most recent systolic blood pressure 130-139 mm Hg CPT-3079F Most recent diastoli c blood pressure 80-89 mm Hg CPT-1159F Medication list docu mented in medical record SCT-[id number] Medication Reconciliation [facility] 927 T1 B12 [facility] 6399 T1 CBC with diff [facility] 89719 T1 CMP [facility] 466 T1 Folic Acid [facility] 23985 T1 Hepatic Function Panel 20 23/04/06 [facility] 496 T1 HGBA1c [facility] 23325 T1 Lipid Panel [facility] 76484 T1 TSH reflex to free T4 202 09/10/05 [facility] 54470 T2 Vitamin D 25 Dihydroxy 20 23/04/06 CPT-3075F Most recent systolic blood pressure 130-139 mm Hg CPT-3078F Most recent diastoli c blood pressure <80 mm Hg SCT-109823300308850 Medication Reconciliation GEN SX GEN General Surgery Referral General SCT-[id number] Medication Reconciliation CPT-3074F Most recent systolic blood pressure <130 mm Hg CPT-3079F Most recent diastoli c blood pressure 80-89 mm Hg CPT-1159F Medication list docu mented in medical record CPT-1160F Review of all medica tions by a prescribing practitioner SCT-194876190 Giving encouragement to exercise SCT-932846835 Current every day smoker 20 22/01/04 SCT-646946337 Smoking cessation education CPT-3075F Most recent systolic blood pressure 130-139 mm Hg CPT-3079F Most recent diastoli c blood pressure 80-89 mm Hg SCT-793569827273132 Medication Reconciliation SCT-843881125 Giving encouragement to exercise CPT-1159F Medication list docu mented in medical record X-Ray Hand Right X-Ray Hand Right CPT-1160F Review of all medica tions by a prescribing practitioner PAIN GEN Pain Management Referral General X-Ray Thoracic Spine X-Ray Thoracic Spine [facility] 6399 T1 CBC with diff [facility] 30884 T1 CMP [facility] 249 T2 TORRES [facility] 4418 T2 Rheumatoid Factor Quant 2 [facility] 809 T1 Sedimentation Rate RBC 20 24/10/25 CARD GEN Cardiology Referral General CPT-3075F Most recent systolic blood pressure 130-139 mm Hg CPT-3079F Most recent diastoli c blood pressure 80-89 mm Hg SCT-[id number] Medication Reconciliation SCT-253865655 Giving encouragement to exercise CPT-1159F Medication list docu mented in medical record CPT-1160F Review of all medica tions by a prescribing practitioner SCT-830543544 Current every day smoker 20 23/09/27 SCT-219541592 Smoking cessation education SCT-340205562 Smoking cessation education 78688 Flulaval Quadrivalent 09/30 CPT-30509 IMADM >18YR IM R[address]TE 1ST VAC/TOXOID 09/30 [id number] 340B Depo medrol 80mg/ml Injection 09/30 Inj Order Injection(s) Ordered [facility] 6399 T1 CBC with diff [facility] 22022 T1 CMP [facility] 496 T1 HGBA1c [facility] 02481 T1 Lipid Panel [facility] 59291 T1 TSH reflex to free T4 09/03/27 [facility] 89948 T1 Acute Hepatits Panel 2020 CPT-1159F Medication list docu mented in medical record SCT-[id number] Medication Reconciliation SCT-356073474 Giving encouragement to exercise [facility] 06412 Patient Pay- COVID-19 09/18 X-Ray Chest X-Ray Chest SCT-[id number] Medication Reconciliation SCT-200984254 Giving encouragement to exercise CPT-3074F Most recent systolic blood pressure <130 mm Hg CPT-3078F Most recent diastoli c blood pressure <80 mm Hg PAIN GEN Pain Management Referral General CPT-1159F Medication list docu mented in medical record CPT-1160F Review of all medica tions by a prescribing practitioner [facility] F8318 T1 Drug Screen STAND RACHELE-Urine w/o Confirmation SCT-[id number] Medication Reconciliation Mammo ANAND Mammogram SCT-610008499 Giving encouragement to exercise [facility] 6399 T1 CBC with diff [facility] 58100 T1 CMP [facility] 21620 T1 Acute Hepatits Panel 2019 [facility] 14153 T1 Lipid Panel [facility] 30817 T1 TSH reflex to free T4 202 [facility]-[id number] [facility] Vital Signs Date Name Value Unit Description [...]
--- OUTSIDE RECORDS SUMMARY | 2025-07-22 07:49 | XMS_ITS | Encounter Summary ---
Author Organization [employer] ([place], [place], [place], [place], [place]) Address [address] [place] [address] Care Team Providers Care Police Chief Name Role Phone Amie Pena MD Primary Care Provider [phone] Marvel Grayson MD Primary Care Provider [phone] Encounter Details Date Type Department Care Team (Late st Contact Info) Description 07/06/2019 Transcribed Document [facility] [place] [facility] [place] [address] [place] [address] ProviderMik MD [address] [place] [address] Social History Tobacco Use Types Packs/Day [...] Mik Thorne MD - 07/06/2019 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 Policy Number: [id number] Authorization Number: Insurance Primary Name : [facility] Authorization Status-Primary : Awaiting callback Reference Number-Primary : [id number] Authorized Service Begin Date-Primary : 07/05/2019 EDT Authorization Comments-Primary : Clinicals submitted via [facility] portal. Historical Authorization Comments-Primary : Comment 1: Reference number retrieved from [facility] portal. (SHAAN RICHTER Rn-Utilization Review 07/06/2019 09:37) SHAAN RICHTER Rn-Utilization Review - 07/06/2019 9:45 EST Electronically signed by [facility], [facility] Conversion Orthopedic Specialist Cerner at 12/16/2022 10:49 AM CDT documented in this encounter Plan of Treatment Upcoming Encounters Date Type Department Care Team (Late st Contact Info) Description 11/03/2025 12:45 PM EST Office Visit [facility] Pulmonology - [address] [place] [address] Ben Barrios MD [address] [place], [place] [address] documented as of this encounter Visit Diagnoses Not on filedocumented in this encounter Care Teams Police Chief Relationship Specialty Start Date End Date Amie Pena MD [address] [place] [address] PCP - General Family Medicine 10/31/22 04/08/23 Marvel Grayson MD [address] [place] [address] PCP - General Family Medicine 05/17/23 Marvel Grayson [address] [place] [address] Family Practice 04/09/23 documented as of this encounter
--- OUTSIDE RECORDS SUMMARY | 2025-07-22 07:49 | XMS_ITS | Encounter Summary ---
Author Organization [employer] ([place], [place], [place], [place], [place]) Address [address] [place] [address] Care Team Providers Care Field Clinical Engineer Name Role Phone Amie Pena MD Primary Care Provider [phone] Marvel Grayson MD Primary Care Provider [phone] Encounter Details Date Type Department Care Team (Late st Contact Info) Description 07/06/2019 Transcribed Document [facility] [place] [address] [place] [address] ProviderMik MD [address] [place] [address] Social History Tobacco Use Types Packs/Day Years Used Date Smoking Tobacco: Never Assessed Comments Unknown Sex and Gender Information Value Date Recorded Sex Assigned at Not on file Legal Sex Female 6:09 PM CDT Gender Identity Not on file Sexual Orientation Not on file documented as of this encounter Miscellaneous Notes * Cerner Conversion Note - Historical ProviderMD - 07/06/2019 5:00 AM PROPELLER DRIVEN AIRPLANE MECHANIC Chart Check - Review Order Profile Entered On: 07/06/2019 3:00 EST Performed On: 07/06/2019 5:00 EST by Max Pereyra, RN Chart Check Powerplans Initiated/Discontinued as Appropriate : Yes All Active Orders Reviewed : Yes Max Pereyra, RN - 07/06/2019 3:00 EST Electronically signed by [place] [facility] Conversion Metal Ceiling Builder Cerner at 12/16/2022 10:47 AM CDT documented in this encounter Plan of Treatment Upcoming Encounters Date Type Department Care Team (Late st Contact Info) Description 11/03/2025 12:45 PM EST Office Visit [facility] Pulmonology - [address] [place] [address] Ben Barrios MD [address] [place] [address] documented as of this encounter Visit Diagnoses Not on filedocumented in this encounter Care Teams Field Clinical Engineer Relationship Specialty Start Date End Date Amie Pena MD [address] [place], [place] [address] [address] PCP - General Family Medicine 10/31/22 04/08/23 Marvel Grayson MD [facility] [place] [address] PCP - General Family Medicine 05/17/23 Marvel Grayson [address] [place] [address] Family Practice 04/09/23 documented as of this encounter
--- OUTSIDE RECORDS SUMMARY | 2025-07-22 07:49 | XMS_ITS | Encounter Summary ---
Author Organization [employer] ([place], [place], [place], [place], [place]) Address [address] [place] [address] Care Team Providers Care Oil Extractor Name Role Phone Amie Pena MD Primary Care Provider [phone] Marvel Grayson MD Primary Care Provider [phone] Encounter Details Date Type Department Care Team (Late st Contact Info) Description 07/07/2019 Transcribed Document [facility] [place] [facility] [place] [address] ProviderMik MD [address] [place] [address] Social History Tobacco Use Types Packs/Day Years Used Date Smoking Tobacco: Never Assessed Comments Unknown Sex and Gender Information Value Date Recorded Sex Assigned at Not on file Legal Sex Female 6:09 PM CDT Gender Identity Not on file Sexual Orientation Not on file documented as of this encounter Miscellaneous Notes * Cerner Conversion Note - Historical ProviderMD - 07/07/2019 12:30 PM SPOOLING MACHINE OPERATOR Care Management Assessment/Plan Entered On: 07/07/2019 12:31 EST Performed On: 07/07/2019 12:30 EST by Ana Duran Scheduler Care Management Note Documentation Status Complete : Yes Ana Duran Scheduler - 07/07/2019 12:30 EST Patient History Emergency Contact #1 : rommel Harika Emergency Contact #1 Phone Number : [phone] Emergency Contact #1 Relationship : Emergency Contact #2 : Rebeca Emergency Contact #2 Phone Number : [phone] Emergency Contact #2 Relationship : sister Living Situation : Home Patient Lives With : Sibling(s), Spouse Mobility Assistance Prior to Admission : Independent Professional Skilled Services : None Current Home Treatments : Nebulizer treatments Home Equipment : None 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 Took appt reminder and cloth cutting machine operator pw to pt's room. Put appt info in discharge summary Follow-up Appointment Date #1 : 07/16/2019 14:00 EST Rach Duranraynavonda, Podiatric Surgeon - 07/07/2019 12:30 EST Electronically signed by [facility], [facility] Conversion Care Nurse Rn Cerner at 12/16/2022 10:37 AM CDT documented in this encounter Plan of Treatment Upcoming Encounters Date Type Department Care Team (Late st Contact Info) Description 11/03/2025 12:45 PM EST Office Visit [facility] Pulmonology - [address] [place] [address] Ben Barrios MD [address] [place] [address] documented as of this encounter Visit Diagnoses Not on filedocumented in this encounter Care Teams Oil Extractor Relationship Specialty Start Date End Date Amie Pena MD [facility] [place] [address] PCP - General Family Medicine 10/31/22 04/08/23 Marvel Grayson MD [address] [place] [address] PCP - General Family Medicine 05/17/23 Marvel Grayson [address] [place] [address] Family Practice 04/09/23 documented as of this encounter
--- OUTSIDE RECORDS SUMMARY | 2025-07-22 07:49 | XMS_ITS | Encounter Summary ---
Author Organization [employer] ([place], [place], [place], [place], [place]) Address [address] [place] [address] Care Team Providers Care Regional Education Manager Name Role Phone Amie Pena MD Primary Care Provider [phone] Marvel Grayson MD Primary Care Provider [phone] Encounter Details Date Type Department Care Team (Late st Contact Info) Description 07/07/2019 Transcribed Document [facility] [place] [address] [place] [address] ProviderMik MD [address] [place] [address] Social History Tobacco Use Types Packs/Day Years Used Date Smoking Tobacco: Never Assessed Comments Unknown Sex and Gender Information Value Date Recorded Sex Assigned at Not on file Legal Sex Female 6:09 PM CDT Gender Identity Not on file Sexual Orientation Not on file documented as of this encounter Miscellaneous Notes * Cerner Conversion Note - Historical ProviderMD - 07/07/2019 11:23 AM LACE PAPER MACHINE OPERATOR CR Chest 1 Vw Portable Ordered: 07/05/2019 Modified Reason for Exam: SOA 07/06/2019 14:34 CR Spine Lumbar 2 or 3 Vws Ordered: 07/05/2019 Auth (Verified) Reason for Exam: Pain 07/06/2019 13:57 07/07/2019 11:23 (XOCHITL SHIELDS PA-C) Reviewed by Provider, No further action required x1 Electronically signed by [place], [facility] Conversion Supervisor Braiding Cerner at 12/16/2022 10:40 AM CDT documented in this encounter Plan of Treatment Upcoming Encounters Date Type Department Care Team (Late st Contact Info) Description 11/03/2025 12:45 PM EST Office Visit [facility] Pulmonology - [address] [place] [address] Ben Barrios MD [address] [place] [address] documented as of this encounter Visit Diagnoses Not on filedocumented in this encounter Care Teams Regional Education Manager Relationship Specialty Start Date End Date Amie Pena MD [facility] [place] [address] PCP - General Family Medicine 10/31/22 04/08/23 Marvel Grayson MD [facility] [place] [address] PCP - General Family Medicine 05/17/23 Marvel Grayson [address] [place] [address] Family Practice 04/09/23 documented as of this encounter
--- OUTSIDE RECORDS SUMMARY | 2025-07-22 07:49 | XMS_ITS | Encounter Summary ---
Author Organization [employer] ([place], [place], [place], [place], [place]) Address [address] [place] [address] Care Team Providers Care Stencil Printer Name Role Phone Amie Pena MD Primary Care Provider [phone] Marvel Grayson MD Primary Care Provider [phone] Encounter Details Date Type Department Care Team (Late st Contact Info) Description 07/08/2019 Transcribed Document [facility] [place] [address] [place] [address] ProviderMik MD [address] [place] [address] Social History Tobacco Use Types Packs/Day [...] Mik Thorne MD - 07/08/2019 1:30 PM AUTOMATIC STEEL TIE ADJUSTER UM Authorization Entered On: 07/08/2019 13:30 EST Performed On: 07/08/2019 13:30 EST by FREDERIC PHAM RN-Utilization Review Primary Insurance Authorization Authorization and Policy Numbers : Insurance 1 Health Plan: [employer] Policy Number: [id number] Authorization Number: Insurance Primary Name : [employer] Authorization Status-Primary : Awaiting callback Reference Number-Primary : [id number] Authorized Service Begin Date-Primary : 07/05/2019 EDT Authorization Comments-Primary : [facility] auth still pending per website Historical Authorization Comments-Primary : Comment 1: [facility] auth still pending per website (FREDERIC PHAM RN-Utilization Review 07/07/2019 13:48) Comment 2: Clinicals submitted via [facility] portal. (SHAAN RICHTER Rn-Utilization Review 07/06/2019 09:45) Comment 3: Reference number retrieved from [facility] portal. (SHAAN RICHTER Rn-Utilization Review 07/06/2019 09:37) FREDERIC PHAM RN-Utilization Review - 07/08/2019 13:30 EST Electronically signed by [facility], [facility] Conversion Brazer Furnace Cerner at 12/16/2022 10:49 AM CDT documented in this encounter Plan of Treatment Upcoming Encounters Date Type Department Care Team (Late st Contact Info) Description 11/03/2025 12:45 PM EST Office Visit [facility] Pulmonology - [address] [place] [address] Ben Barrios MD [address] [place] [address] documented as of this encounter Visit Diagnoses Not on filedocumented in this encounter Care Teams Stencil Printer Relationship Specialty Start Date End Date Amie Pena MD [address] [place], [place] [address] [address] PCP - General Family Medicine 10/31/22 04/08/23 Marvel Grayson MD [address] [place] [address] PCP - General Family Medicine 05/17/23 Marvel Grayson [address] [place] [address] Family Practice 04/09/23 documented as of this encounter
--- OUTSIDE RECORDS SUMMARY | 2025-07-22 07:49 | XMS_ITS | Encounter Summary ---
Author Organization [employer] ([place], [place], [place], [place], [place]) Address [address] [place] [address] Care Team Providers Care Corporate Security Manager Name Role Phone Amie Pena MD Primary Care Provider [phone] Marvel Grayson MD Primary Care Provider [phone] Encounter Details Date Type Department Care Team (Late st Contact Info) Description 07/06/2019 Transcribed Document [facility] [place] [address] [place] [address] ProviderMik MD [address] [place] [address] Social History Tobacco Use Types Packs/Day Years Used Date Smoking Tobacco: Never Assessed Comments Unknown Sex and Gender Information Value Date Recorded Sex Assigned at Not on file Legal Sex Female 6:09 PM CDT Gender Identity Not on file Sexual Orientation Not on file documented as of this encounter Miscellaneous Notes * Cerner Conversion Note - Mik ProviderMD - 07/06/2019 10:30 AM MECHANIC'S ASSISTANT Treatment Intervention, PT Entered On: 07/07/2019 11:10 EST Performed On: 07/07/2019 9:28 EST by IKE ARIAS PTA General Information, PT Visit Type, PT : Treatment Note IKE ARIAS PTA - 07/07/2019 11:06 EST Patient Orders : Order Date Order Ordering 07/05/2019 22:49 PT Evaluation and Treatment Ordered By: LI LUEVANO MD-INT 07/06/2019 10:30 PT Additional Treatment Ordered By: SANCHO POND PT Active Diagnoses : No Qualifying Diagnoses JUANA ALEXANDER RAMIRES - 07/07/2019 12:23 EST Therapy Diagnosis, PT : Reduced Mobility IKE ARIASALXEANDER - 07/07/2019 11:06 EST Admission Date : 07/05/2019 21:24 KLEVER ARIASALEXANDER DODSON 07/07/2019 12:23 EST Assisted by, PT : Occupational Therapist IKE ARIAS PTA - 07/07/2019 11:06 EST Personal Devices : Personal Devices No Devices Recorded Assistive Devices : Assistive Devices No Devices Recorded JUANA IKE [facility] 07/07/2019 12:23 EST General Status Patient Received [...] 9:41 EST Treatment Time : 13 Minute(s) IKE ARIAS PTA 07/07/2019 11:06 EST Intervention Summary O2 Pre-Intervention [...] Plan/Goals Established w Patient : Yes IKE ARIASALEXANDER - 07/07/2019 11:06 EST Seat Covers Trimmer Goals Other PT LTG Grid Goal #1 [...] goal IKE ARIASALEXANDER - 07/07/2019 11:06 EST KIE ARIAS, PLASTIC FINISHER - 07/07/2019 11:06 EST Treatment Note Patient's [...] reported discomfort from sitting in bed. IKE ARIAS, ALEXANDER - 07/07/2019 12:23 EST Pain Assessment Pain [...] Each 15 Min : 1 IKE ARIAS, PLASTIC FINISHER - 07/07/2019 11:06 EST documented in this encounter Plan of Treatment Upcoming Encounters Date Type Department Care Team (Late st Contact Info) Description 11/03/2025 12:45 PM EST Office Visit [facility] Pulmonology - [address] [place] [address] Ben Barrios MD [address] [place] [address] documented as of this encounter Visit Diagnoses Not on filedocumented in this encounter Care Teams Corporate Security Manager Relationship Specialty Start Date End Date Amie Pena MD [address] [facility] [place] [address] PCP - General Family Medicine 10/31/22 04/08/23 Marvel Grayson MD [address] [address] PCP - General Family Medicine 05/17/23 Marvel Grayson [address] [place] [address] Family Practice 04/09/23 documented as of this encounter
--- OUTSIDE RECORDS SUMMARY | 2025-07-22 07:50 | XMS_ITS | Encounter Summary ---
Author Organization [employer] ([place], [place], [place], [place], [place]) Address [address] [place] [address] Care Team Providers Care Die Cast Die Maker Name Role Phone Amie Pena MD Primary Care Provider [phone] Marvel Grayson MD Primary Care Provider [phone] Encounter Details Date Type Department Care Team (Late st Contact Info) Description 07/07/2019 Transcribed Document [facility] [place] [facility] [place] [address] ProviderMik MD [address] [place] [address] Social History Tobacco Use Types Packs/Day Years Used Date Smoking Tobacco: Never Assessed Comments Unknown Sex and Gender Information Value Date Recorded Sex Assigned at Not on file Legal Sex Female 6:09 PM CDT Gender Identity Not on file Sexual Orientation Not on file documented as of this encounter Miscellaneous Notes * Cerner Conversion Note - Historical ProviderMD - 07/07/2019 11:16 AM HEEL SEAT FITTER MACHINE Initial Discharge Planning Entered On: 07/07/2019 11:21 EST Performed On: 07/07/2019 11:16 EST by Desiree Bennett, Driver Trainee-Manager Salt Initial Assessment I Previously Documented Living Environment : No qualifying data available. Living Situation : Home Patient Lives With : Sibling(s), Spouse Is the Patient a Caregiver at Home? 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 : Yes Does Patient have PCP Listed? : No Legal Guardian : No Desiree Bennett Social Worker-Manager Salt - 07/07/2019 11:16 EST Initial Assessment II Sensory and Motor Deficits : None Current Home Treatments and Equipment : Cane, Nebulizer, Oxygen therapy Services and Community Resources Addl Comments : [employer] [phone] Desiree Bennett Social Worker-Manager Salt - 07/07/2019 11:16 EST Discharge Needs I Anticipated Discharge To, CM : Home independently Current Home Treatment/Equipment : Current Home Treatment/Equipment No qualifying data available. Post Acute/Home Treatments : None Documentation Status Complete : Yes Desiree Bnenett Social Worker-Manager Salt - 07/07/2019 11:16 EST Discharge Needs II Professional Skilled Services : Professional Skilled Services No qualifying data available. Needs Assistance with Transportation : No Desiree Bennett Social Worker-Manager Salt - 07/07/2019 11:16 EST Narrative Note Narrative Note : 07/07 Met with pt at the bedside. Pt reports she resides with her and sister. 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 Pt confirms she has home oxygen with portables provided by [employer]. Pt reports she plans to return home at discharge. Pt was agreeable to [facility] referral for assistance with obtaining PCP. Contacted [facility] and made referral. Deisree Bennett Social Worker-Manager Salt - 07/07/2019 11:16 EST documented in this encounter Plan of Treatment Upcoming Encounters Date Type Department Care Team (Late st Contact Info) Description 11/03/2025 12:45 PM EST Office Visit [facility] Pulmonology - [address] [place] [address] Ben Barrios MD [address] [place] [address] documented as of this encounter Visit Diagnoses Not on filedocumented in this encounter Care Teams Die Cast Die Maker Relationship Specialty Start Date End Date Amie Pena MD [address] [place] [address] [place] [address] PCP - General Family Medicine 10/31/22 04/08/23 Marvel Grayson MD [address] [place] [address] [place] [address] PCP - General Family Medicine 05/17/23 Marvel Grasyon [address] [place], [place] [address] Family Practice 04/09/23 documented as of this encounter
--- OUTSIDE RECORDS SUMMARY | 2025-07-22 07:50 | XMS_ITS | Encounter Summary ---
Author Organization [employer] ([place], [place], [place], [place], [place]) Address [address] [place] [address] Care Team Providers Care Vamp Presser Name Role Phone Amie Pena MD Primary Care Provider [phone] Marvel Grayson MD Primary Care Provider [phone] Encounter Details Date Type Department Care Team (Late st Contact Info) Description 07/07/2019 Transcribed Document [facility] [place] Family [place] [address] [place] [address] ProviderMik MD [address] [place] [address] Social History Tobacco Use Types Packs/Day Years Used Date Smoking Tobacco: Never Assessed Comments Unknown Sex and Gender Information Value Date Recorded Sex Assigned at Not on file Legal Sex Female 6:09 PM CDT Gender Identity Not on file Sexual Orientation Not on file documented as of this encounter Miscellaneous Notes * Cerner Conversion Note - Mik ProviderMD - 07/07/2019 1:27 PM MEETING/EVENT PLANNER Final Discharge Planning Entered On: 07/07/2019 13:27 EST Performed On: 07/07/2019 13:27 EST by Desiree Bennett, Electric Refrigerator Preparer-Mechatronics Technician Final Discharge Planning Discharge Arrangements : Patient [...] : Yes Discharge To Care Management : Home/Residential/Penitentiary or Self Care -01 Desiree Bennett, Electric Refrigerator Preparer-Mechatronics Technician - 07/07/2019 13:27 EST Electronically signed by [facility], [facility] Conversion Powertrain Engineer Cerner at 12/16/2022 10:42 AM CDT documented in this encounter Plan of Treatment Upcoming Encounters Date Type Department Care Team (Late st Contact Info) Description 11/03/2025 12:45 PM EST Office Visit [facility] Pulmonology - [address] [place] [address] Ben Barrios MD [address] [place] [address] documented as of this encounter Visit Diagnoses Not on filedocumented in this encounter Care Teams Vamp Presser Relationship Specialty Start Date End Date Amie Pena MD [address] [place] [address] [place] [address] PCP - General Family Medicine 10/31/22 04/08/23 Marvel Grayson MD [address] [place] [address] PCP - General Family Medicine 05/17/23 Marvel Grayson [address] [place] [address] Family Practice 04/09/23 documented as of this encounter
--- OUTSIDE RECORDS SUMMARY | 2025-07-22 07:50 | XMS_ITS | Encounter Summary ---
Author Organization [employer] ([place], [place], [place], [place], [place]) Address [address] [place] [address] Care Team Providers Care Solution Developer Name Role Phone Amie Pena MD Primary Care Provider [phone] Marvel Grayson MD Primary Care Provider [phone] Encounter Details Date Type Department Care Team (Late st Contact Info) Description 07/07/2019 Transcribed Document [facility] [place] [facility] [place] [address] ProviderMik MD [address] [place] [address] Social History Tobacco Use Types Packs/Day Years Used Date Smoking Tobacco: Never Assessed Comments Unknown Sex and Gender Information Value Date Recorded Sex Assigned at Not on file Legal Sex Female 6:09 PM CDT Gender Identity Not on file Sexual Orientation Not on file documented as of this encounter Miscellaneous Notes * Cerner Conversion Note - Historical ProviderMD - 07/07/2019 12:56 PM ACTIVITY THERAPY SPECIALIST SEAN [address] [address] Visit Date/Time: 07/07/2019 12:56:55 PRATIK SHABAZZ The above patient was seen in the hospital today and needs to be excused from work/school until Return to Work/School Date: 07/10/2019 documented in this encounter Plan of Treatment Upcoming Encounters Date Type Department Care Team (Late st Contact Info) Description 11/03/2025 12:45 PM EST Office Visit [facility] Pulmonology - [address] [place] [address] Ben Barrios MD [address] [place] [address] documented as of this encounter Visit Diagnoses Not on filedocumented in this encounter Care Teams Solution Developer Relationship Specialty Start Date End Date Amie Pena MD [address] [place] [address] [place] [address] PCP - General Family Medicine 10/31/22 04/08/23 Marvel Grayson MD [address] [place] [address] [place] [address] PCP - General Family Medicine 05/17/23 Marvel Grayson [address] [place], [place] [address] Family Practice 04/09/23 documented as of this encounter
--- OUTSIDE RECORDS SUMMARY | 2025-07-22 07:50 | XMS_ITS | Encounter Summary ---
Author Organization [employer] ([place], [place], [place], [place], [place]) Address [address] [place] [address] Care Team Providers Care Road Conductor Name Role Phone Amie Pena MD Primary Care Provider [phone] Marvel Grayson MD Primary Care Provider [phone] Encounter Details Date Type Department Care Team (Late st Contact Info) Description 07/07/2019 Transcribed Document [facility] [place] [address] [place] [address] ProviderMik MD [address] [place] [address] Social History Tobacco Use Types Packs/Day Years Used Date Smoking Tobacco: Never Assessed Comments Unknown Sex and Gender Information Value Date Recorded Sex Assigned at Not on file Legal Sex Female 6:09 PM CDT Gender Identity Not on file Sexual Orientation Not on file documented as of this encounter Miscellaneous Notes * Cerner Conversion Note - Mik ProviderMD - 07/07/2019 1:48 PM SOLAR PROJECT COORDINATION SPECIALIST UM Authorization Entered On: 07/07/2019 13:48 EST Performed On: 07/07/2019 13:48 EST by FREDERIC PHAM RN-Utilization Review Primary Insurance Authorization Authorization and Policy Numbers : Insurance 1 Health Plan: [employer] Policy Number: [id number] Authorization Number: Insurance Primary Name : [employer] Authorization Status-Primary : Awaiting callback Reference Number-Primary : [id number] Authorized Service Begin Date-Primary : 07/05/2019 EDT Authorization Comments-Primary : [facility] auth still pending per website Historical Authorization Comments-Primary : Comment 1: Clinicals submitted via [facility] portal. (SHAAN RICHTER, Rn-Utilization Review 07/06/2019 09:45) Comment 2: Reference number retrieved from [facility] portal. (SHAAN RICHTER, Rn-Utilization Review 07/06/2019 09:37) FREDERIC PHAM RN-Utilization Review - 07/07/2019 13:48 EST Electronically signed by [place], [facility] Conversion Supervisor Toy Parts Former Cerner at 12/16/2022 10:52 AM CDT documented in this encounter Plan of Treatment Upcoming Encounters Date Type Department Care Team (Late st Contact Info) Description 11/03/2025 12:45 PM EST Office Visit [facility] Pulmonology - [address] [place] [address] Ben Barrios MD [address] [place] [address] documented as of this encounter Visit Diagnoses Not on filedocumented in this encounter Care Teams Road Conductor Relationship Specialty Start Date End Date Amie Pena MD [address] [place] [address] [place] [address] PCP - General Family Medicine 10/31/22 04/08/23 Marvel Grayson MD [address] [place] [address] [place] [address] PCP - General Family Medicine 05/17/23 Marvel Grayson [address] [place], [place] [address] Family Practice 04/09/23 documented as of this encounter
--- OUTSIDE RECORDS SUMMARY | 2025-07-22 07:50 | XMS_ITS | Encounter Summary ---
Author Organization [employer] ([place], [place], [place], [place], [place]) Address [address] [place] [address] Care Team Providers Care Drapery Hand Name Role Phone Amie Pena MD Primary Care Provider Marvel Grayson MD Primary Care Provider [phone] Encounter Details Date Type Department Care Team (Late st Contact Info) Description 07/09/2019 Transcribed Document [facility] [place] [address] [place] [address] ProviderMik MD [address] [place] [address] Social History Tobacco Use Types Packs/Day [...] Mik Thorne MD - 07/09/2019 9:54 AM CENTRAL SERVICE SUPPLY DISTRIBUTOR UM Authorization Entered On: 07/09/2019 9:54 EST Performed On: 07/09/2019 9:54 EST by FREDERIC PHAM RN-Utilization Review Primary Insurance Authorization Authorization and Policy Numbers : Insurance 1 Health Plan: [employer] Policy Number: [id number] Authorization Number: Insurance Primary Name : [employer] Authorization Status-Primary : Awaiting callback Reference Number-Primary : [id number] Authorized Service Begin Date-Primary : 07/05/2019 EDT Authorization Comments-Primary : [facility] auth still pending per website Historical Authorization Comments-Primary : Comment 1: [facility] auth still pending per website (FREDERIC PHAM RN-Utilization Review 07/08/2019 13:30) Comment 2: [facility] auth still pending per website (FREDERIC PHAM RN-Utilization Review 07/07/2019 13:48) Comment 3: Clinicals submitted via [facility] portal. (SHAAN RICHTER Rn-Utilization Review 07/06/2019 09:45) Comment 4: Reference number retrieved from [facility] portal. (SHAAN RICHTER Rn-Utilization Review 07/06/2019 09:37) FREDERIC PHAM RN-Utilization Review - 07/09/2019 9:54 EST Electronically signed by [facility], [facility] Conversion Pharmacognosist Cerner at 12/16/2022 10:41 AM CDT documented in this encounter Plan of Treatment Upcoming Encounters Date Type Department Care Team (Late st Contact Info) Description 11/03/2025 12:45 PM EST Office Visit [facility] Pulmonology - [address] [place] [address] Ben Barrios MD [address] [place] [address] documented as of this encounter Visit Diagnoses Not on filedocumented in this encounter Care Teams Drapery Hand Relationship Specialty Start Date End Date Amie Pena MD [facility] [place] [address] PCP - General Family Medicine 10/31/22 04/08/23 Marvel Grayson MD [address] [place] [address] PCP - General Family Medicine 05/17/23 Marvel Grayson [address] [place] [address] Family Practice 04/09/23 documented as of this encounter
--- OUTSIDE RECORDS SUMMARY | 2025-07-22 07:50 | XMS_ITS | Encounter Summary ---
Author Organization [employer] ([place], [place], [place], [place], [place]) Address [address] [place] [address] Care Team Providers Care Truck Terminal Manager Name Role Phone Amie Pena MD Primary Care Provider [phone] Marvel Grayson MD Primary Care Provider [phone] Encounter Details Date Type Department Care Team (Late st Contact Info) Description 07/07/2019 Transcribed Document [facility] [place] [facility] [place] [address] ProviderMik MD [address] [place] [address] Social History Tobacco Use Types Packs/Day Years Used Date Smoking Tobacco: Never Assessed Comments Unknown Sex and Gender Information Value Date Recorded Sex Assigned at Not on file Legal Sex Female 6:09 PM CDT Gender Identity Not on file Sexual Orientation Not on file documented as of this encounter Miscellaneous Notes * Cerner Conversion Note - Historical ProviderMD - 07/07/2019 12:52 PM REMEDY DEVELOPER Stroke/Warfarin Instructions Entered On: 07/07/2019 12:52 EST Performed On: 07/07/2019 12:52 EST by Vy Salazar RN Stroke/Warfarin Instructions Stroke/TIA Discharge Ins : N/A Warfarin Discharge Ins : N/A Vy Salazar RN - 07/07/2019 12:52 EST Electronically signed by [place] [facility] Conversion Deicer Tester Cerner at 12/16/2022 10:48 AM CDT documented in this encounter Plan of Treatment Upcoming Encounters Date Type Department Care Team (Late st Contact Info) Description 11/03/2025 12:45 PM EST Office Visit [facility] Pulmonology - [address] [place] [address] Ben Barrios MD [address] [place] [address] documented as of this encounter Visit Diagnoses Not on filedocumented in this encounter Care Teams Truck Terminal Manager Relationship Specialty Start Date End Date Amie Pena MD [address] [place], [place] [address] [address] PCP - General Family Medicine 10/31/22 04/08/23 Marvel Grayson MD [facility] [place] [address] PCP - General Family Medicine 05/17/23 Marvel Grayson [address] [place] [address] Family Practice 04/09/23 documented as of this encounter
--- OUTSIDE RECORDS SUMMARY | 2025-07-22 07:50 | XMS_ITS | Encounter Summary ---
Author Organization [employer] ([place], [place], [place], [place], [place]) Address [address] [place] [address] Care Team Providers Care Pool Attendant Name Role Phone Amie Pena MD Primary Care Provider [phone] Marvel Grayson MD Primary Care Provider [phone] Encounter Details Date Type Department Care Team (Late st Contact Info) Description 07/07/2019 Transcribed Document [facility] [place] [address] [place] [address] ProviderMik MD [address] [place] [address] Social History Tobacco Use Types Packs/Day Years Used Date Smoking Tobacco: Never Assessed Comments Unknown Sex and Gender Information Value Date Recorded Sex Assigned at Not on file Legal Sex Female 6:09 PM CDT Gender Identity Not on file Sexual Orientation Not on file documented as of this encounter Miscellaneous Notes * Cerner Conversion Note - Historical ProviderMD - 07/07/2019 3:13 PM TWISTING PRESS OPERATOR Nursing Discharge Summary Entered On: 07/07/2019 15:13 EST Performed On: 07/07/2019 15:13 EST by Vy Salazar user experience team lead Documentation Discharge Date/Time : 07/07/2019 13:47 EST [...] EST Electronically signed by [facility], [facility] Conversion Investigation Clerk Cerner at 12/16/2022 10:50 AM CDT documented in this encounter Plan of Treatment Upcoming Encounters Date Type Department Care Team (Late st Contact Info) Description 11/03/2025 12:45 PM EST Office Visit [facility] Pulmonology - [address] [place] [address] Ben Barrios MD [address] [place] [address] documented as of this encounter Visit Diagnoses Not on filedocumented in this encounter Care Teams Pool Attendant Relationship Specialty Start Date End Date Amie Pena MD [address] [place] [address] [place] [address] PCP - General Family Medicine 10/31/22 04/08/23 Marvel Grayson MD [address] [place] [address] [place] [address] PCP - General Family Medicine 05/17/23 Marvel Grayson [address] [place] [address] Family Practice 04/09/23 documented as of this encounter
--- OUTSIDE RECORDS SUMMARY | 2025-07-22 07:50 | XMS_ITS | Encounter Summary ---
Author Organization [employer] ([place], [place], [place], [place], [place]) Address [address] [place] [address] Care Team Providers Care General House Worker Name Role Phone Amie Pena MD Primary Care Provider [phone] Marvel Grayson MD Primary Care Provider [phone] Encounter Details Date Type Department Care Team (Late st Contact Info) Description 07/07/2019 Transcribed Document [facility] [place] [address] [place] [address] ProviderMik MD [address] [place] [address] Social History Tobacco Use Types Packs/Day Years Used Date Smoking Tobacco: Never Assessed Comments Unknown Sex and Gender Information Value Date Recorded Sex Assigned at Not on file Legal Sex Female 6:09 PM CDT Gender Identity Not on file Sexual Orientation Not on file documented as of this encounter Miscellaneous Notes * Cerner Conversion Note - Historical ProviderMD - 07/07/2019 12:55 PM TUBE SIZER OPERATOR Event Note Entered On: 07/07/2019 13:06 EST Performed On: 07/07/2019 12:55 EST by Vy Salazar, RN Event Note Description of Event : Discharge delay-- Dr Lane brought written Rx for Atrovent to RN, patient discharge paperwork is complete. Patient asked RN to request a couple days continued lortab. Aundrea CORONADO, pending response. Vy Salazar, RN - 07/07/2019 13:05 EST Electronically signed by [facility], [facility] Conversion Tiler'S Assistant Cerner at 12/16/2022 10:47 AM CDT documented in this encounter Plan of Treatment Upcoming Encounters Date Type Department Care Team (Late st Contact Info) Description 11/03/2025 12:45 PM EST Office Visit [facility] Pulmonology - [address] [place] [address] Ben Barrios MD [address] [place] [address] documented as of this encounter Visit Diagnoses Not on filedocumented in this encounter Care Teams General House Worker Relationship Specialty Start Date End Date Amie Pena MD [address] [place] [address] [place] [address] PCP - General Family Medicine 10/31/22 04/08/23 Marvel Grayson MD [address] [place] [address] [place] [address] PCP - General Family Medicine 05/17/23 Marvel Grayson [address] [place] [address] Family Practice 04/09/23 documented as of this encounter
--- OUTSIDE RECORDS SUMMARY | 2025-07-22 07:51 | XMS_ITS | Encounter Summary ---
Author Organization [employer] ([place], [place], [place], [place], [place]) Address [address] [place] [address] Care Team Providers Care Peanut Blancher Name Role Phone Amie Pena MD Primary Care Provider [phone] Marvel Grayson MD Primary Care Provider [phone] Encounter Details Date Type Department Care Team (Late st Contact Info) Description 07/10/2019 Transcribed Document [facility] [place] [address] [place] [address] ProviderMik MD [address] [place] [address] Social History Tobacco Use Types Packs/Day [...] Mik Thorne MD - 07/10/2019 10:04 AM GLASS ROLLING MACHINE OPERATOR UM Authorization Entered On: 07/10/2019 10:04 EST Performed On: 07/10/2019 10:04 EST by FREDERIC PHAM RN-Utilization Review Primary Insurance Authorization Authorization and Policy Numbers : Insurance 1 Health Plan: [employer] Policy Number: [id number] Authorization Number: Insurance Primary Name : [employer] Authorization Status-Primary : Awaiting callback Reference Number-Primary : [id number] Authorized Service Begin Date-Primary : 07/05/2019 EDT Authorization Comments-Primary : [facility] auth still pending per website Historical Authorization Comments-Primary : Comment 1: [facility] auth still pending per website (FREDERIC PHAM RN-Utilization Review 07/09/2019 09:54) Comment 2: [facility] auth still pending per website (FREDERIC PHAM RN-Utilization Review 07/08/2019 13:30) Comment 3: [facility] auth still pending per website (FREDERIC PHAM RN-Utilization Review 07/07/2019 13:48) Comment 4: Clinicals submitted via [facility] portal. (SHAAN RICHTER, Rn-Utilization Review 07/06/2019 09:45) Comment 5: Reference number retrieved from [facility] portal. (SHAAN RICHTER Rn-Utilization Review 07/06/2019 09:37) FREDERIC PHAM RN-Utilization Review - 07/10/2019 10:04 EST Electronically signed by [facility], [facility] Conversion Building Cleaner Cerner at 12/16/2022 10:41 AM CDT documented in this encounter Plan of Treatment Upcoming Encounters Date Type Department Care Team (Late st Contact Info) Description 11/03/2025 12:45 PM EST Office Visit [facility] Pulmonology - [address] [place] [address] Ben Barrios MD [address] [place] [address] documented as of this encounter Visit Diagnoses Not on filedocumented in this encounter Care Teams Peanut Blancher Relationship Specialty Start Date End Date Amie Pena MD [facility] [place] [address] PCP - General Family Medicine 10/31/22 04/08/23 Marvel Grayson MD [facility] [place] [address] PCP - General Family Medicine 05/17/23 Marvel Grayson [address] [place] [address] Family Practice 04/09/23 documented as of this encounter
--- OUTSIDE RECORDS SUMMARY | 2025-07-22 07:51 | XMS_ITS | Encounter Summary ---
Author Organization [employer] ([place], [place], [place], [place], [place]) Address [address] [place] [address] Care Team Providers Care Currency Exchange Specialist Name Role Phone Amie Pena MD Primary Care Provider [phone] Marvel Grayson MD Primary Care Provider [phone] Encounter Details Date Type Department Care Team (Late st Contact Info) Description 07/05/2019 Transcribed Document [facility] [place] [address] [place] [address] ProviderMik MD [address] [place] [address] Social History Tobacco Use Types Packs/Day [...] On: 07/05/2019 20:58 EDT by Marisol Panchal silk trimmer Process Patient Disposition : Admit/Observe, Transfer Personal Belongings With Patient : Yes IV Discontinued : No Nursing Documentation Completed : Yes Marisol Panchal RN - 07/05/2019 20:58 EDT ED Discharge Discharge To : Acute care facility Name of Receiving Facility/Provider : [facility] Mode Of Departure : Ambulance/ALS Accompanied By : ride mechanic, Spouse Prescriptions Given to Patient : No Marisol Panchal RN - 07/05/2019 20:58 EDT Admission, ED Nurse Report Accepted By : Max Pereyra RN/ given by Leah Valentine RN Nurse Report Acceptance Time : 07/05/2019 19:48 EDT `Nurse Report (Hand Off) : Called Accompanied By, Discharge : ride mechanic Mode Of Departure : Ambulance/ALS Marisol Panchal RN - 07/05/2019 20:58 EDT Electronically signed by [place] [facility] Conversion Employment Representative Cerner at 12/16/2022 10:41 AM CDT documented in this encounter Plan of Treatment Upcoming Encounters Date Type Department Care Team (Late st Contact Info) Description 11/03/2025 12:45 PM EST Office Visit [facility] Pulmonology - [address] [place] [address] Ben Barrios MD [address] [place] [address] documented as of this encounter Visit Diagnoses Not on filedocumented in this encounter Care Teams Currency Exchange Specialist Relationship Specialty Start Date End Date Amie Pena MD [address] [place] [address] [place] [address] PCP - General Family Medicine 10/31/22 04/08/23 Marvel Grayson MD [address] [place] [address] [place] [address] PCP - General Family Medicine 05/17/23 Marvel Grayson [address] [place] [address] Family Practice 04/09/23 documented as of this encounter
--- OUTSIDE RECORDS SUMMARY | 2025-07-22 07:51 | XMS_ITS | Encounter Summary ---
Author Organization [employer] ([place], [place], [place], [place], [place]) Address [address] [place] [address] Care Team Providers Care Tennis Net Maker Name Role Phone Amie Pena MD Primary Care Provider [phone] Marvel Grayson MD Primary Care Provider [phone] Encounter Details Date Type Department Care Team (Late st Contact Info) Description 07/07/2019 Transcribed Document [facility] [place] [address] [place] [address] ProviderMik MD [address] [place] [address] Social History Tobacco Use Types Packs/Day Years Used Date Smoking Tobacco: Never Assessed Comments Unknown Sex and Gender Information Value Date Recorded Sex Assigned at Not on file Legal Sex Female 6:09 PM CDT Gender Identity Not on file Sexual Orientation Not on file documented as of this encounter Miscellaneous Notes * Cerner Conversion Note - Historical ProviderMD - 07/07/2019 5:00 AM PIPE STEM SAWYER Chart Check - Review Order Profile Entered On: 07/07/2019 5:29 EST Performed On: 07/07/2019 5:00 EST by Max Pereyra, RN Chart Check Powerplans Initiated/Discontinued as Appropriate : Yes All Active Orders Reviewed : Yes Max Pereyra, RN - 07/07/2019 5:29 EST Electronically signed by [place] [facility] Conversion Screen Printing Cloth Spreader Cerner at 12/16/2022 10:46 AM CDT documented in this encounter Plan of Treatment Upcoming Encounters Date Type Department Care Team (Late st Contact Info) Description 11/03/2025 12:45 PM EST Office Visit [facility] Pulmonology - [address] [place] [address] Ben Barrios MD [address] [place] [address] documented as of this encounter Visit Diagnoses Not on filedocumented in this encounter Care Teams Tennis Net Maker Relationship Specialty Start Date End Date Amie Pena MD [address] [place], [place] [address]alys[place] [address] PCP - General Family Medicine 10/31/22 04/08/23 Marvel Grayson MD [facility][note 3] [facility] [place] [address] PCP - General Family Medicine 05/17/23 Marvel Grayson [address] [place] [address] Family Practice 04/09/23 documented as of this encounter
--- OUTSIDE RECORDS SUMMARY | 2025-07-22 07:51 | XMS_ITS | Encounter Summary ---
Author Organization [employer] ([place], [place], [place], [place], [place]) Address [address] [place] [address] Care Team Providers Care Floodplain Manager Name Role Phone Amie Pena MD Primary Care Provider [phone] Marvel Grayson MD Primary Care Provider [phone] Encounter Details Date Type Department Care Team (Late st Contact Info) Description 07/05/2019 Transcribed Document [facility] [place] [address] [place] [address] ProviderMik MD [address] [place] [address] Social History Tobacco Use Types Packs/Day Years Used Date Smoking Tobacco: Never Assessed Comments Unknown Sex and Gender Information Value Date Recorded Sex Assigned at Not on file Legal Sex Female 6:09 PM CDT Gender Identity Not on file Sexual Orientation Not on file documented as of this encounter Miscellaneous Notes * Cerner Conversion Note - Mik ProviderMD - 07/05/2019 8:38 PM CDT ED Event [...] Leah Valentine RN - 07/05/2019 20:38 EDT documented in this encounter Plan of Treatment Upcoming Encounters Date Type Department Care Team (Late st Contact Info) Description 11/03/2025 12:45 PM EST Office Visit [facility] Pulmonology - [address] [place] [address] Ben Barrios MD [address] [place] [address] documented as of this encounter Visit Diagnoses Not on filedocumented in this encounter Care Teams Floodplain Manager Relationship Specialty Start Date End Date Amie Pena MD [address] [place] [address] PCP - General Family Medicine 10/31/22 04/08/23 Marvel Grayson MD [address] [place] [address] PCP - General Family Medicine 05/17/23 Marvel Grayson [address] [place] [address] Family Practice 04/09/23 documented as of this encounter
--- OUTSIDE RECORDS SUMMARY | 2025-07-22 07:51 | XMS_ITS | Encounter Summary ---
Author Organization [employer] ([place], [place], [place], [place], [place]) Address [address] [place] [address] Care Team Providers Care Occupational Health Coordinator Name Role Phone Amie Pena MD Primary Care Provider [phone] Marvel Grayson MD Primary Care Provider [phone] Encounter Details Date Type Department Care Team (Late st Contact Info) Description 07/05/2019 Transcribed Document [facility] [place] [address] [place] [address] ProviderMik MD [address] [place] [address] Social History Tobacco Use Types Packs/Day [...] Max Pereyra RN - 07/06/2019 3:01 EST documented in this encounter Plan of Treatment Upcoming Encounters Date Type Department Care Team (Late st Contact Info) Description 11/03/2025 12:45 PM EST Office Visit [facility] Pulmonology - [address] [place] [address] Ben Barrios MD [address] [place] [address] documented as of this encounter Visit Diagnoses Not on filedocumented in this encounter Care Teams Occupational Health Coordinator Relationship Specialty Start Date End Date Amie Pena MD [address] [place], [place] [address] [address] PCP - General Family Medicine 10/31/22 04/08/23 Marvel Grayson MD [facility] [place] [address] PCP - General Family Medicine 05/17/23 Marvel Grayson [address] [place] [address] Family Practice 04/09/23 documented as of this encounter
--- OUTSIDE RECORDS SUMMARY | 2025-07-22 07:51 | XMS_ITS | Encounter Summary ---
Author Organization [employer] ([place], [place], [place], [place], [place]) Address [address] [place] [address] Care Team Providers Care Cigarette Tipper Name Role Phone Amie Pena MD Primary Care Provider [phone] Marvel Grayson MD Primary Care Provider [phone] Encounter Details Date Type Department Care Team (Late st Contact Info) Description 07/05/2019 Transcribed Document [facility] [place] [address] [place] [address] ProviderMik MD [address] [place] [address] Social History Tobacco Use Types Packs/Day [...] Historical ProviderMD - 07/05/2019 10:49 PM CDT Pain Assessment Entered On: 07/06/2019 10:58 EST Performed On: 07/06/2019 10:36 EST by Nasreen Fishman RN Intervention Information: acetaminophen Performed by Nasreen Fishman RN on 07/06/2019 09:36:00 EST acetaminophen,650mg Oral,Pain [...] Visit [facility] Pulmonology - [address] [place] [address] Ben Barrios MD [address] [place] [address] documented as of this encounter Visit Diagnoses Not on filedocumented in this encounter Care Teams Cigarette Tipper Relationship Specialty Start Date End Date Amie Pena MD [address] [place] [address] [place] [address] PCP - General Family Medicine 10/31/22 04/08/23 Marvel Grayson MD [address] [place] [address] [place] [address] PCP - General Family Medicine 05/17/23 Marvel Grayson [address] [place] [address] Family Practice 04/09/23 documented as of this encounter
--- OUTSIDE RECORDS SUMMARY | 2025-07-22 07:52 | XMS_ITS | Encounter Summary ---
Author Organization [employer] ([place], [place], [place], [place], [place]) Address [address] [place] [address] Care Team Providers Care Tavern Car Attendant Name Role Phone Amie Pena MD Primary Care Provider [phone] Marvel Grayson MD Primary Care Provider [phone] Encounter Details Date Type Department Care Team (Late st Contact Info) Description 04/22/2019 Transcribed Document [facility] [place] [address] [place] [address] ProviderMik MD [address] [place] [address] Social History Tobacco Use Types Packs/Day [...] Nora Jha Rn - 04/22/2019 12:14 EDT Electronically signed by [place] [facility] Conversion Personal Financial Representative Cerner at 12/16/2022 10:45 AM CDT documented in this encounter Plan of Treatment Upcoming Encounters Date Type Department Care Team (Late st Contact Info) Description 11/03/2025 12:45 PM EST Office Visit [facility] Pulmonology - [address] [place] [address] Ben Barrios MD [address] [place] [address] documented as of this encounter Visit Diagnoses Not on filedocumented in this encounter Care Teams Tavern Car Attendant Relationship Specialty Start Date End Date Amie Pena MD [facility] [place] [address] PCP - General Family Medicine 10/31/22 04/08/23 Marvel Grayson MD [facility] [place] [address] PCP - General Family Medicine 05/17/23 Marvel Grayson [address] [place] [address] Family Practice 04/09/23 documented as of this encounter
--- OUTSIDE RECORDS SUMMARY | 2025-07-22 07:52 | XMS_ITS | Encounter Summary ---
Author Organization [employer] ([place], [place], [place], [place], [place]) Address [address] [place] [address] Care Team Providers Care Engineering Group Manager Name Role Phone Amie Pena MD Primary Care Provider [phone] Marvel Grayson MD Primary Care Provider [phone] Encounter Details Date Type Department Care Team (Late st Contact Info) Description 04/18/2019 Transcribed Document [facility] Radiology [address] [place] [address] Provider, Karthikeyan Houser MD Social History Tobacco Use Types Packs/Day Years Used Date Smoking Tobacco: Never Assessed Comments Unknown Sex and Gender Information Value Date Recorded Sex Assigned at Not on file Legal Sex Female 6:09 PM CDT Gender Identity Not on file Sexual Orientation Not on file documented as of this encounter Miscellaneous Notes * Cerner Conversion Note - [facility] [place] Thorne MD - 04/18/2019 3:22 PM EDT [...] Barley. Bulgur wheat. Millet. Bran muffins. Popcorn. [place] wafer crackers. ?? Vegetables Sweet potatoes. Spinach. Kale. Artichokes. Cabbage. Broccoli. Green peas. Carrots. Squash. ?? Fruits Berries. Pears. Apples. Oranges. Avocados. Prunes and raisins. Dried figs. ?? Meats and Other Protein Sources Humptulips, kidney, preciado, and soy beans. Split peas. [...] analilia has 11 g of protein. ??? Bunnlevel seeds - 1 oz has 5.5 g [...] floor. ?? Place frequently used items in [id number] places ?? Keep electrical cables out of [...] ? Using the bathroom. ? Using household batch mixer operator or toxic chemicals. ? Touching or [...] EST Office Visit [facility] Pulmonology - [address] [place] [address] eBn Barrios MD [address] [place] [address] documented as of this encounter Visit Diagnoses Not on filedocumented in this encounter Care Teams Engineering Group Manager Relationship Specialty Start Date End Date Amie Pena MD [facility] [place] [address] PCP - General Family Medicine 10/31/22 04/08/23 Marvel Grayson MD [address] [place] [address] PCP - General Family Medicine 05/17/23 Marvel Grayson [address], [place] [address] Family Practice 04/09/23 documented as of this encounter
--- OUTSIDE RECORDS SUMMARY | 2025-07-22 07:52 | XMS_ITS | Encounter Summary ---
Author Organization [employer] ([place], [place], [place], [place], [place]) Address [address] [place] [address] Care Team Providers Care Water Jet Operator Name Role Phone Amie Pena MD Primary Care Provider [phone] Marvel Grayson MD Primary Care Provider [phone] Encounter Details Date Type Department Care Team (Late st Contact Info) Description 07/05/[address] [facility] [place] [address] [place] [address] ProviderMik MD [address] [place] [address] Social History Tobacco Use Types Packs/Day [...] Historical ProviderMD - 07/05/2019 7:06 PM CDT Electronically signed by Karthikeyan Bean Conversion Occupational Therapist'S Assistant Seanner at 12/16/2022 10:36 AM CDT documented in this encounter Plan of Treatment Upcoming Encounters Date Type Department Care Team (Late st Contact Info) Description 11/03/2025 12:45 PM EST Office Visit [facility] Pulmonology - [address] [place] [address] Ben Barrios MD [address] [place] [address] documented as of this encounter Visit Diagnoses Not on filedocumented in this encounter Care Teams Water Jet Operator Relationship Specialty Start Date End Date Amie Pena MD [address] [facility] [place] [address] PCP - General Family Medicine 10/31/22 04/08/23 Marvel Grayson MD [address] [place] [address] PCP - General Family Medicine 05/17/23 Marvel Grayson [address] [place] [address] Family Practice 04/09/23 documented as of this encounter
--- OUTSIDE RECORDS SUMMARY | 2025-07-22 07:52 | XMS_ITS | Encounter Summary ---
Author Organization [employer] ([place], [place], [place], [place], [place]) Address [address] [place] [address] Care Team Providers Care Bi Solutions Architect Name Role Phone Amie Pena MD Primary Care Provider Marvel Grayson MD Primary Care Provider [phone] Encounter Details Date Type Department Care Team (Late st Contact Info) Description 04/19/2019 Transcribed Document [facility] [place] [address] ProviderMik MD [address] [place] [address] Social History Tobacco Use Types Packs/Day [...] Insurance 1 Health Plan: [employer] Policy Number: [id number] Authorization Number: [id number] Insurance Primary Name : [employer] Policy Number: [id number] Authorization Status-Primary : Admit approved Authorization Number-Primary : [id number] Number of Days Authorized-Primary : 1 Authorized Service Begin Date-Primary : 04/18/2019 EDT Authorized Service End Date-Primary : 04/18/2019 EDT Historical Authorization Comments-Primary : Comment 1: [employer] approved per availity for inpt 1 day -- Jesenia will f/u for clinicals herself (FREDERIC PHAM, RICKEY-Utilization Review 04/09/2019 16:00) LESLY LEOS RN-Utilization Review - 04/19/2019 7:42 EDT Electronically signed by [place] [facility] Conversion Chain Builder Cerner at 12/16/2022 10:37 AM CDT documented in this encounter Plan of Treatment Upcoming Encounters Date Type Department Care Team (Late st Contact Info) Description 11/03/2025 12:45 PM EST Office Visit [facility] Pulmonology - [address] [place] [address] Ben Barrios MD [address] [place] [address] documented as of this encounter Visit Diagnoses Not on filedocumented in this encounter Care Teams Bi Solutions Architect Relationship Specialty Start Date End Date Amie Pena MD [address] [place] [address] [place] [address] PCP - General Family Medicine 10/31/22 04/08/23 Marvel Grayson MD [address] [place], [place] [address] [address] PCP - General Family Medicine 05/17/23 Marvel Grayson [address] [place] [address] Family Practice 04/09/23 documented as of this encounter
--- OUTSIDE RECORDS SUMMARY | 2025-07-22 07:52 | XMS_ITS | Encounter Summary ---
Author Organization [employer] ([place], [place], [place], [place], [place]) Address [address] [place] [address] Care Team Providers Care Hot Mill Worker Name Role Phone Amie Pena MD Primary Care Provider [phone] Marvel Grayson MD Primary Care Provider [phone] Encounter Details Date Type Department Care Team (Late st Contact Info) Description 07/05/2019 Transcribed Document [facility] [place] [facility] [place] [address] ProviderMik MD [address] [place] [address] Social History Tobacco Use Types Packs/Day [...] Type, OT : Initial evaluation SOLA SHEARER OTR/Kevan - 07/07/2019 12:03 EST Patient Orders : [...] met and within reach, Other: O2, tele, RN EMPLOYEE HEALTH/PCT Informed Comment : RN Ok'd to tx, [...] O2 sats >90% throughout SOLA SHEARER OTR/Kevan 07/07/2019 12:08 EST Intervention Summary O2 Pre-Intervention : on O2 SpO2 Pre-Intervention : 95 % O2 Post-Intervention : on O2 SpO2 Post-Intervention : 96 % SOLA SHEARERDORA/Kevan - 07/07/2019 12:08 EST Neurological/Sensory Overall Sensory Response : Intact SOLA SHEARER DORA/Kevan - 07/07/2019 12:08 EST Cognition Assessment, OT Orientation : Oriented x 4 SOLA SHEARERDORA/Kevan - 07/07/2019 12:08 EST Education OT Occupational Therapy Education Grid Activity of Daily Living Training : Verbalizes understanding, Returns demonstration Functional Mobility Training : Verbalizes understanding, Returns demonstration SOLA SHEARERDORA/Kevan - 07/07/2019 12:08 EST Indication Assessment, OT [...] OT Eval Low Complexity : 1 SOLA SHEARERDORA/Kevan - 07/07/2019 12:08 EST documented in this encounter Plan of Treatment Upcoming Encounters Date Type Department Care Team (Late st Contact Info) Description 11/03/2025 12:45 PM EST Office Visit [facility] Pulmonology - [address] [place] [address] Ben Barrios MD [address] [place], [place] [id number] documented as of this encounter Visit Diagnoses Not on filedocumented in this encounter Care Teams Hot Mill Worker Relationship Specialty Start Date End Date Amie Pena MD [address] [place], [place] [address] [address] PCP - General Family Medicine 10/31/22 04/08/23 Marvel Grayson MD [address] [place] [address] PCP - General Family Medicine 05/17/23 Marvel Grayson [address] [place] [address] Family Practice 04/09/23 documented as of this encounter
--- OUTSIDE RECORDS SUMMARY | 2025-07-22 07:54 | XMS_ITS | Encounter Summary ---
Author Organization [employer] ([place], [place], [place], [place], [place]) Address [address] [place] [address] Care Team Providers Care Chemical Laboratory Tester Name Role Phone Amie Pena MD Primary Care Provider [phone] Marvel Grayson MD Primary Care Provider [phone] Encounter Details Date Type Department Care Team (Late st Contact Info) Description 07/06/2019 Transcribed Document [facility] [place] Medicine [address] [place] [address] ProviderMik MD [address] [place] [address] Social History Tobacco Use Types Packs/Day Years Used Date Smoking Tobacco: Never Assessed Comments Unknown Sex and Gender Information Value Date Recorded Sex Assigned at Not on file Legal Sex Female 6:09 PM CDT Gender Identity Not on file Sexual Orientation Not on file documented as of this encounter Miscellaneous Notes * Cerner Conversion Note - Historical ProviderMD - 07/06/2019 5:00 PM EDITOR MANAGING DIRECTOR Chart Check - Review Order Profile Entered On: 07/06/2019 17:44 EST Performed On: 07/06/2019 17:00 EST by Nasreen Fishman, RN Chart Check Powerplans Initiated/Discontinued as Appropriate : Yes All Active Orders Reviewed : Yes Nasreen Fishman RN - 07/06/2019 17:44 EST Electronically signed by [facility] Conversion Day Light Relief Operator Cerner at 12/16/2022 10:40 AM CDT documented in this encounter Plan of Treatment Upcoming Encounters Date Type Department Care Team (Late st Contact Info) Description 11/03/2025 12:45 PM EST Office Visit [facility] Pulmonology - [address] [place] [address] Ben Barrios MD [address] [place] [address] documented as of this encounter Visit Diagnoses Not on filedocumented in this encounter Care Teams Chemical Laboratory Tester Relationship Specialty Start Date End Date Amie Pena MD [address] [place], [place] [address] [address] PCP - General Family Medicine 10/31/22 04/08/23 Marvel Grayson MD [facility] [place] [address] PCP - General Family Medicine 05/17/23 Marvel Grayson [address] [place] [address] Family Practice 04/09/23 documented as of this encounter
--- OUTSIDE RECORDS SUMMARY | 2025-07-22 07:54 | XMS_ITS | Encounter Summary ---
Author Organization [employer] ([place], [place], [place], [place], [place]) Address [address] [place] [address] Care Team Providers Care Admission Liaison Name Role Phone Amie Pena MD Primary Care Provider [phone] Marvel Grayson MD Primary Care Provider [phone] Encounter Details Date Type Department Care Team (Late st Contact Info) Description 07/05/2019 Transcribed Document [facility] [place] [address] [place] [address] ProviderMik MD [address] [place] [address] Social History Tobacco Use Types Packs/Day [...] MD-INT Active Diagnoses : No Qualifying Diagnoses SANCHO POND, PT - 07/06/2019 10:21 EST Therapy Diagnosis, PT : reduced mobility SANCHO POND, PT - 07/06/2019 9:09 EST Admission Date : 07/05/2019 21:24 Personal Devices : Personal Devices No Devices Recorded Assistive Devices : Assistive Devices No Devices Recorded DEJAHSANCHO, PT - 07/06/2019 10:21 EST General Information [...] Assessment, PT Orientation : Oriented x 4 SNACHO POND, PT - 07/06/2019 9:09 EST Plan of Care, PT PT Tx Plan/Goals Established w Patient : Yes PT Frequency Rehab : Daily PT Duration Rehab : Seven Days PT Treatments Planned : Gait training, Safety education, Therapeutic exercises, Transfer training SANCHO POND, PT - 07/06/2019 10:21 EST Halfway Goals Other PT LTG Grid Goal #1 [...] on goals and PT treatment while at [facility]. Advised pt remain in chair until staff [...] SANCHO POND, PT - 07/06/2019 10:21 EST Electronically signed by Karthikeyan Bean Conversion Water Regulator And Valve Repairer Cerner at 12/16/2022 10:47 AM CDT documented in this encounter Plan of Treatment Upcoming Encounters Date Type Department Care Team (Late st Contact Info) Description 11/03/2025 12:45 PM EST Office Visit [facility] Pulmonology - [address] [place] [address] Ben Barrios MD [address] [place] [address] documented as of this encounter Visit Diagnoses Not on filedocumented in this encounter Care Teams Admission Liaison Relationship Specialty Start Date End Date Amie Pena MD [address] [place] [address] PCP - General Family Medicine 10/31/22 04/08/23 Marvel Grayson MD [address] [place] [address] PCP - General Family Medicine 05/17/23 Marvel Grayson [address] [place] [address] Family Practice 04/09/23 documented as of this encounter
--- OUTSIDE RECORDS SUMMARY | 2025-07-22 07:54 | XMS_ITS | Encounter Summary ---
Author Organization [employer] ([place], [place], [place], [place], [place]) Address [address] [place] [address] Care Team Providers Care Air Crew Supervisor Name Role Phone Amie Pena MD Primary Care Provider [phone] Marvel Grayson MD Primary Care Provider [phone] Encounter Details Date Type Department Care Team (Late st Contact Info) Description 07/05/2019 Transcribed Document [facility] Family Medicine [address] [place] [address] ProviderMik MD [address] [place] [address] Social History Tobacco Use Types Packs/Day [...] On: 07/05/2019 17:18 EDT by Leah Valentine ENGRAVER PICTURE Quick Look Assessment Level of Consciousness : Alert, Awake Affect/Behavior : Appropriate, Calm, Cooperative Orientation : Oriented x 4 Skin Temperature : Warm Skin Description : Normal for ethnicity, Dry Leah Valentine RN - 07/05/2019 17:18 EDT ED General-Functional Assess Information Obtained From : Patient Preferred Communication Mode : Verbal Communication Barrier : None Primary Language : Somali Any Spiritual/Cultural Needs or Requests : No Currently in Unsafe Situation : No Leah Valentine RN - 07/05/2019 17:18 EDT Patient/Family Histotechnician Communication Primary Language : Somali Leah Valentine RN - 07/05/2019 17:18 EDT [...] WDL with exceptions Cough : Congested Leah Valenitne RN - 07/05/2019 17:18 EDT Breath Sounds [...] Visit [facility] Pulmonology - [address] [place] [address] Ben Barrios MD [address] [place] [address] documented as of this encounter Visit Diagnoses Not on filedocumented in this encounter Care Teams Air Crew Supervisor Relationship Specialty Start Date End Date Amie Pena MD [address] [place], [place] [address] [address] PCP - General Family Medicine 10/31/22 04/08/23 Marvel Grayson MD [address] [place] [address] [place] [address] PCP - General Family Medicine 05/17/23 Marvel Grayson [address] [place] [address] Family Practice 04/09/23 documented as of this encounter
--- OUTSIDE RECORDS SUMMARY | 2025-07-22 07:54 | XMS_ITS | Encounter Summary ---
Author Organization [employer] ([place], [place], [place], [place], [place]) Address [address] [place] [address] Care Team Providers Care Value Engineer Name Role Phone Amie Pena MD Primary Care Provider [phone] Marvel Grayson MD Primary Care Provider [phone] Encounter Details Date Type Department Care Team (Late st Contact Info) Description 07/05/2019 Transcribed Document [facility] [place] [address] [place] [address] ProviderMik MD [address] [place] [address] Social History Tobacco Use Types Packs/Day [...] at 40 Years. Removal of ovarian cyst (2615280114). I&D to left finger. Hysterectomy ([id number]).. Family history: No family history items have [...] EDT Height Source Estimated Height Entry Format Henry Height/Length, YORUBA (ft) 5 ft Height/Length YORUBA 11 Inch CLINICALHEIGHT 180.34 cm [place] Body Weight 70.31 kg Weight Source, ED Critical estimated dosing weight Weight Entry Format Henry Weight Fijian lb 200 lb CLINICALWEIGHT 90.91 kg Body [...] The Rhythm is sinus tachycardia. , The [place] is normal. , T wave No changes, Ectopy None, P wave and DE interval WNL, QT interval WNL, QRS interval [...] 14.4 % LOW Lymph # 2.14 K/uL [place] % 12.6 % HI [place] # 1.87 K/uL HI Eos % 0.6 % Eos # 0.09 K/uL Baso % 0.4 % Baso # 0.06 K/uL Slide Review No IG# 0 x10(3)/uL IG% 0 % Urine Type. U CleanCatch Urine Color Yellow Urine Appearance Hazy Urine Specific [place] 1.025 Urine pH Dipstick 5.5 LOW Urine [...] given IV steroids, abx, IVF. Hospitalist at [facility] to accept. Impression and Plan Diagnosis Pneumonia - Discharge, Medical Hypoxia - Discharge, Medical Plan Condition: Stable. Disposition: Admit Admit/Transfer/Discharge: ED Transfer (Order): Start: 07/05/2019 19:00 EDT, For pneumonia, hypoxia, Unit Type: Other (use Special Instructions), [facility] Darci. Electronically signed by Geneva [facility] Conversion Associate Doctor Cerner at 12/16/2022 10:50 AM CDT documented in this encounter Plan of Treatment Upcoming Encounters Date Type Department Care Team (Late st Contact Info) Description 11/03/2025 12:45 PM EST Office Visit [facility] Pulmonology - [address] [place] [address] Ben Barrios MD [address] [place], [place] [address] documented as of this encounter Visit Diagnoses Not on filedocumented in this encounter Care Teams Value Engineer Relationship Specialty Start Date End Date Amie Pena MD [address] [place] [address] [place] [address] PCP - General Family Medicine 10/31/22 04/08/23 Marvel Grayson MD [address] [place] [address] [place] [address] PCP - General Family Medicine 05/17/23 Marvel Grayson [address] [place] [address] Family Practice 04/09/23 documented as of this encounter
--- OUTSIDE RECORDS SUMMARY | 2025-07-22 07:54 | XMS_ITS | Encounter Summary ---
Author Organization [employer] ([place], [place], [place], [place], [place]) Address [address] [place] [address] Care Team Providers Care Therapy Technician Name Role Phone Amie Pena MD Primary Care Provider [phone] Marvel Grayson MD Primary Care Provider [phone] Encounter Details Date Type Department Care Team (Late st Contact Info) Description 07/06/2019 Transcribed Document [facility] [place] Family Medicine [address] [place] [address] ProviderMik MD [address] [place] [address] Social History Tobacco Use Types Packs/Day Years Used Date Smoking Tobacco: Never Assessed Comments Unknown Sex and Gender Information Value Date Recorded Sex Assigned at Not on file Legal Sex Female 6:09 PM CDT Gender Identity Not on file Sexual Orientation Not on file documented as of this encounter Miscellaneous Notes * Cerner Conversion Note - Historical ProviderMD - 07/06/2019 2:00 AM MEDIA PRODUCTION OPERATOR Supervisor Keymodule Assembly Details Entered On: 07/06/2019 2:59 EST Performed On: 07/06/2019 2:00 EST by Max Pereyra, RN Order Details Transport Mode Order Detail : Wheelchair Isolation Precautions Order Detail : Contact precautions Order Detail : 0 IV Order Detail : 1 Oxygen Order Detail : 1 Nurse Collect Order Detail : 0 Lift/Transfer : Independent Central Line Order Detail : No Room Service : Appropriate Arterial Line : No Max Pereyra, RN - 07/06/2019 2:59 EST Electronically signed by Geneva, [facility] Conversion Icebox Worker Cerner at 12/16/2022 10:46 AM CDT documented in this encounter Plan of Treatment Upcoming Encounters Date Type Department Care Team (Late st Contact Info) Description 11/03/2025 12:45 PM EST Office Visit [facility] Pulmonology - [address] [place] [address] Ben Barrios MD [address] [place] [address] documented as of this encounter Visit Diagnoses Not on filedocumented in this encounter Care Teams Therapy Technician Relationship Specialty Start Date End Date Amie Pena MD [address] [facility] [place] [address] PCP - General Family Medicine 10/31/22 04/08/23 Marvel Grayson MD [address] [place] [address] PCP - General Family Medicine 05/17/23 Marvel Grayson [address] [place] [address] Family Practice 04/09/23 documented as of this encounter
--- OUTSIDE RECORDS SUMMARY | 2025-07-22 07:54 | XMS_ITS | Encounter Summary ---
Author Organization [employer] ([place], [place], [place], [place], [place]) Address [address] [place] [address] Care Team Providers Care Yard Stocker Name Role Phone Amie Pena MD Primary Care Provider Marvel Grayson MD Primary Care Provider [phone] Encounter Details Date Type Department Care Team (Late st Contact Info) Description 07/06/2019 Transcribed Document [facility] [place] Family Medicine [address] [place] [address] ProviderMik MD [address] [place] [address] Social History Tobacco Use Types Packs/Day Years Used Date Smoking Tobacco: Never Assessed Comments Unknown Sex and Gender Information Value Date Recorded Sex Assigned at Not on file Legal Sex Female 6:09 PM CDT Gender Identity Not on file Sexual Orientation Not on file documented as of this encounter Miscellaneous Notes * Cerner Conversion Note - Mik ProviderMD - 07/06/2019 9:37 AM CD TECHNICIAN UM Authorization Entered On: 07/06/2019 9:38 EST Performed On: 07/06/2019 9:37 EST by SHAAN RICHTER Rn-Utilization Review Primary Insurance Authorization Authorization and Policy Numbers : Insurance 1 Health Plan: [employer] Policy Number: [id number] Authorization Number: Insurance Primary Name : [employer] Authorization Status-Primary : Awaiting callback Reference Number-Primary : [id number] Authorized Service Begin Date-Primary : 07/05/2019 EDT Authorization Comments-Primary : Reference number retrieved from [facility] portal. Historical Authorization Comments-Primary : No Authorization Comments Found SHAAN RICHTER Rn-Utilization Review - 07/06/2019 9:37 EST Electronically signed by Geneva, [facility] Conversion Desktop Analyst Cerner at 12/16/2022 10:37 AM CDT documented in this encounter Plan of Treatment Upcoming Encounters Date Type Department Care Team (Late st Contact Info) Description 11/03/2025 12:45 PM EST Office Visit [facility] Pulmonology - [address] [place] [phone] Ben Barrios MD [address] [place] [address] documented as of this encounter Visit Diagnoses Not on filedocumented in this encounter Care Teams Yard Stocker Relationship Specialty Start Date End Date Amie Pena MD [address] [place] [address] [place] [address] PCP - General Family Medicine 10/31/22 04/08/23 Marvel Grayson MD [address] [place] [address] [place] [address] PCP - General Family Medicine 05/17/23 Marvel Grayson [address] [place] [address] Family Practice 04/09/23 documented as of this encounter
--- OUTSIDE RECORDS SUMMARY | 2025-07-22 07:54 | XMS_ITS | Encounter Summary ---
Author Organization [employer] ([place], [place], [place], [place], [place]) Address [address] [place] [address] Care Team Providers Care Wood Tile Installer Name Role Phone Amie Pena MD Primary Care Provider [phone] Marvel Grayson MD Primary Care Provider [phone] Encounter Details Date Type Department Care Team (Late st Contact Info) Description 07/06/2019 Transcribed Document [facility] [place] Family Medicine [address] [place] [address] ProviderMik MD [address] [place] [address] Social History Tobacco Use Types Packs/Day Years Used Date Smoking Tobacco: Never Assessed Comments Unknown Sex and Gender Information Value Date Recorded Sex Assigned at Not on file Legal Sex Female 6:09 PM CDT Gender Identity Not on file Sexual Orientation Not on file documented as of this encounter Miscellaneous Notes * Cerner Conversion Note - Mik ProviderMD - 07/06/2019 12:03 PM EMBEDDED SYSTEMS ENGINEER Patient: PRATIK SHABAZZ Age: 48 years Sex: [...] 48 m - 1 Gram, IV Piggyback, [id number], infuse over 30 Minute(s), Routine azithromycin + Sodium Chloride 0.9% intravenous solution 250 - 500 mg, IV Piggyback, [id number], infuse over 120 Minute(s), Routine Immunology methylPREDNISolone (SOLU-Medrol) - 40 mg, IV Push, Inj, Q6H, Routine Anticoagulant enoxaparin (Lovenox) - 40 mg, SubCutaneous, Inj, [id number], Routine Respiratory albuterol-ipratropium (DuoNeb 0.5 mg-2.5 mg/3 [...] Office Visit [facility] Pulmonology - [address] [place] [address] Ben Barrios MD [address] [place] [address] documented as of this encounter Visit Diagnoses Not on filedocumented in this encounter Care Teams Wood Tile Installer Relationship Specialty Start Date End Date Amie Pena MD [address] [place] [address] [place] [address] PCP - General Family Medicine 10/31/22 04/08/23 Marvel Grayson MD [address] [place] [address] [place] [address] PCP - General Family Medicine 05/17/23 Marvel Grayson [address] [place] [address] Family Practice 04/09/23 documented as of this encounter
--- OUTSIDE RECORDS SUMMARY | 2025-07-22 07:55 | XMS_ITS | Clinical Summary ---
Author Organization [employer] ([place], [place], [place], [place], [place]) Address [address] [place] [address] Care Team Providers Care Soup Mixer Name Role Phone Marvel Grayson MD Primary Care Provider [phone] Allergies Active Allergy Reactions Criticality Noted Date [...] Pain, # 100 Tab, 0 Refill(s), Pharmacy: [facility]/pharmacy #[id number], 180.34, cm, 10/23/21 13:50:00 EST, CLINICALHEIGHT, [...] daily. 09/05/19 25 Active miscellaneous medical supply [facility] 11/13/19 25 Active budesonide (PULMICORT) 1 mg/2 [...] breath. 240 mL 11/28/19 25 026 Active HYDROcodone-aceta minophen (NORCO) 10-325 mg per [...] mouth daily. 60 each 05/29/20 25 Active roflumilast (DALIRESP) 250 mcg tabletIndications :COPD (chronic obstructive pulmonary disease) (HCC),Chronic bronchitis, unspecified chronic bronchitis type (HCC),Pulmonary emphysema (HCC) Take 1 tablet (250 mcg total) by mouth daily. 30 tablet 5 07/02/20 25 Active roflumilast (DALIRESP) 250 mcg tabletIndications :COPD (chronic obstructive pulmonary disease) (HCC),Chronic bronchitis, unspecified chronic bronchitis type (HCC),Pulmonary emphysema, unspecified emphysema type Take 1 tablet (250 mcg total) by mouth daily. 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 08/29/2023 Axillary mass 01/23/2021 [...] Encounters Date Type Department Care Team Description 05/28/2025 3:24 PM EDT - 05/28/2025 11:59 PM EDT Hospital Encounter [facility] - [facility] [address] [facility] [address] [place] [address] Ben Barrios MD Community acquired bacterial pneumonia Discharge Disposition: Home or Self Care 05/28/2025 1:45 PM EDT Office Visit [facility] Pulmonology - [facility] [address] [facility] [address] [place] [address] Ben Barrios MD Solitary pulmonary nodule (Primary Dx); Pulmonary nodules/lesions, multiple; Community acquired bacterial pneumonia 05/28/2025 Travel from Last 3 Months Family History Medical [...] Office Visit [facility] Pulmonology - [address] [place] [address] Ben Barrios MD [address] [place] [address] Health Maintenance Due Date Last Done Comments [...] Lipid Panel 01/24/2025 01/24/2022, 10/24/2021 COVID-19 VACCINE (2024-2 6 season) 2025 07/15/2021, 12/27/2020, 11/30/2020 Influenza [...] Images reviewed, interpreted, and dictated by Dr. Lni Dhillon. Transcribed by Mabel Stokes PA-C. Narrative [...] by Mabel Stokes PA-C. Ben Barrios MD [facility] [place] ORDERABLES Final Result * LIPID PANEL [...] 2:40 PM EDT 01/25/2022 12:28 AM EDT [facility] Historical Provider PATHOLOGY/CYTOLOGY MAURICIO THOMAS Edited Result - Final [facility] [address] [place] [address] * MM digital mammo screen bilateral (03/03/2021 5:10 PM EDT) Anatomical Region Laterality Modality Breast Bilateral Mammography 03/03/2021 5:10 PM EDT Narrative 03/04/2021 2:22 PM EDT PROCEDURE: Bilateral digital screening mammogram. REASON FOR EXAM: Routine screening. FAMILY HISTORY: Intermediate family history of breast cancer COMPARISON STUDY: [facility] 2015 and 2019 FINDINGS: Craniocaudal and mediolateral [...] the next mammogram. At our facility, a white earth marker is positioned over a visible skin lesion and a linear marker is used to indicate a scar. A triangular marker is placed on a self reported palpable finding. cc: Procedure Note Oscar Elizondo MD - 12/19/2022 PROCEDURE: Bilateral digital screening mammogram. REASON FOR EXAM: Routine screening. FAMILY HISTORY: Intermediate family history of breast cancer COMPARISON STUDY: [facility] 2015 and 2019 FINDINGS: Craniocaudal and [...] the next mammogram. At our facility, a white earth marker is positioned over a visible skin lesion and a linear marker is used to indicate a scar. A triangular marker is placed on a self reported palpable finding. cc: Oscar Elizondo MD IMG MAMMOGRAPHY ORDERABLES Keshia l Result from Last 3 Months or Most Recently Relevant to Health Maintenance Insurance [facility] [place] [address] [facility] [place] [address] Advance Directives For more information, please contact: [phone] * Full Code (Latest Code Status on File) Date Activated Date Inactivated Comments 07/24/2023 1:02 PM 07/25/2023 2:38 PM If no puls e: No intervention If has pulse: Use intubation, mechanical ventilation, defibrillation, ACLS medications, or cardioversion as indicated. Call ESCROW PROCESSOR * Full Code Date Activated Date Inactivated Comments 07/24/2023 11:31 AM 07/24/2023 1:02 PM * Full Code Date Activated Date Inactivated Comments 07/24/2023 7:21 AM 07/24/2023 11:31 AM Care Teams Soup Mixer Relationship Specialty Start Date End Date Marvel Grayson MD PCP - General Family Medicine 05/17/23 Marvel Grayson [address] [place] [address] Family Practice 04/09/23
--- OUTSIDE RECORDS SUMMARY | 2025-07-22 07:55 | XMS_ITS | Encounter Summary ---
Author Organization [employer] ([place], [place], [place], [place], [place]) Address [address] [place] [address] Care Team Providers Care Computer Aided Design Designer Name Role Phone Amie Pena MD Primary Care Provider [phone] Marvel Grayson MD Primary Care Provider [phone] Encounter Details Date Type Department Care Team (Late st Contact Info) Description 04/14/2019 Transcribed Document [facility] [place] [address] [place] [address] ProviderMik MD [address] [place] [address] Social History Tobacco Use Types Packs/Day [...] Ellipta: 1 Puff, Inhalation, Daily, 0 Refill(s) Hamer 5 mg-325 mg oral tablet: 1 Tab, [...] Years. Removal of ovarian cyst (SNOMED CT [id number]). I&D to left finger. Hysterectomy (SNOMED CT 880449383).. Family history: No family history items have [...] EDT Height Source Stated Height Entry Format [place] Height/Length, HONG KONGER (ft) 5 ft Height/Length HONG KONGER 11 Inch CLINICALHEIGHT 180.34 cm [place] Body Weight 70.31 kg Weight Source, ED Standing scale Weight Entry Format [place] Weight Italian lb 210 lb CLINICALWEIGHT 95.45 kg Body [...] of instructions. Notes: I certify that the MLP/CHIROPRACTIC CARE performed the services as delegated. I agree with the assessment, treatment plan and disposition of the patient as recorded by the MLP.. Electronically signed by Karthikeyan Bean Conversion Weatherization Operations Manager Cerner at 12/16/2022 10:51 AM CDT documented in this encounter Plan of Treatment Upcoming Encounters Date Type Department Care Team (Late st Contact Info) Description 11/03/2025 12:45 PM EST Office Visit [facility] Pulmonology - [address] [place] [address] Ben Barrios MD [address] [place] [address] documented as of this encounter Visit Diagnoses Not on filedocumented in this encounter Care Teams Computer Aided Design Designer Relationship Specialty Start Date End Date Amie Pena MD [address] [place] [address] PCP - General Family Medicine 10/31/22 04/08/23 Marvel Grayson MD [address] [place] [address] PCP - General Family Medicine 05/17/23 Marvel Grayson [address] [place] [address] Family Practice 04/09/23 documented as of this encounter
--- OUTSIDE RECORDS SUMMARY | 2025-07-22 07:55 | XMS_ITS | Encounter Summary ---
Author Organization [employer] ([place], [place], [place], [place], [place]) Address [address] [place] [address] Care Team Providers Care Inspector Production Plastic Parts Name Role Phone Amie Pena MD Primary Care Provider [phone] Marvel Grayson MD Primary Care Provider [phone] Encounter Details Date Type Department Care Team (Late st Contact Info) Description 04/15/2019 Transcribed Document [facility] [place] Family Medicine [address] [place] [address] ProviderMik MD [address] [place] [address] Social History Tobacco Use Types Packs/Day [...] Office Visit [facility] Pulmonology - [address] [place] [address] Ben Barrios MD [address] [place], [place] [address] documented as of this encounter Visit Diagnoses Not on filedocumented in this encounter Care Teams Inspector Production Plastic Parts Relationship Specialty Start Date End Date Amie Pena MD [address] [place] [address] [place] [address] PCP - General Family Medicine 10/31/22 04/08/23 Marvel Grayson MD [address] [place] [address] [place] [address] PCP - General Family Medicine 05/17/23 Marvel Grayson [address] [place] [address] Family Practice 04/09/23 documented as of this encounter
--- OUTSIDE RECORDS SUMMARY | 2025-07-22 07:55 | XMS_ITS | Encounter Summary ---
Author Organization [employer] ([place], [place], [place], [place], [place]) Address [address] [place] [address] Care Team Providers Care Women'S Studies Professor Name Role Phone Amie Pena MD Primary Care Provider [phone] Marvel Grayson MD Primary Care Provider [phone] Encounter Details Date Type Department Care Team (Late st Contact Info) Description 07/05/2019 Transcribed Document [facility] [place] Family Medicine [address] [place] [address] ProviderMik MD [address] [place] [address] Social History Tobacco Use Types Packs/Day [...] limitation: None. Chief Complaint She transferred from [facility] because of shortness of breath, productive cough and fever History of Present Illness Ms. Carmen, 48 years old female with past medical history of COPD and fibromyalgia who was transferred from [facility] because of pneumonia. Patient states that since [...] of back surgery. No recent antibiotic. At [facility], she was tachycardic and sats 88 [...] influenza virus vaccine, inactivated 0.5 mL, IntraMuscular, [id number] Continuous: (0) PRN: (0) Histories Past medical [...] the patient Time spent is 47 minutes Electronically signed by Geneva [facility] Conversion Customer Care Consultant Cerner at 12/16/2022 10:44 AM CDT documented in this encounter Plan of Treatment Upcoming Encounters Date Type Department Care Team (Late st Contact Info) Description 11/03/2025 12:45 PM EST Office Visit [facility] Pulmonology - [address] [place] [address] Ben Barrios MD [address] [place] [address] documented as of this encounter Visit Diagnoses Not on filedocumented in this encounter Care Teams Women'S Studies Professor Relationship Specialty Start Date End Date Amie Pena MD [facility] [place] [address] PCP - General Family Medicine 10/31/22 04/08/23 Marvel Grayson MD [address] [place] [address] PCP - General Family Medicine 05/17/23 Marvel Grayson [address] [place] [address] Family Practice 04/09/23 documented as of this encounter
--- OUTSIDE RECORDS SUMMARY | 2025-07-22 07:55 | XMS_ITS | Patient Health Record ---
Author Organization [facility] Address [address] [place] [address] Care Team Providers Care Kitchen Bath Designer Name Role Phone Marvel Grayson MD Unavailable [phone] Migration, Provider Unavailable Unavailable Allergies Allergen (clinical [...] Reviewed date:09/24/2024 09:26:01 AM Interpretation: Performing Lab:[facility][id number] [employer], [place] [id number] Sadiq White Notes/Report: Received Date: [id number] 0 0 0 0 0 0 0 TORRES SCREEN IFA W/REFL TITER IFA Reviewed date:09/24/2024 09:26:01 AM Interpretation: Performing Lab:[facility] [employer][id number] [employer] [employer], [place] ViewHstkMN[address] Sadiq White Notes/Report: Received Date: [id number] 0 0 0 0 0 0 0 [...] Negative International Consensus on TORRES Patterns (https://doi.org/10.1515/ gafg-9442-0358) For additional information, please refer to [email or web address] (This link is being provided for informational/ educational purposes only.) TSH, 3RD GENERATION W/REFLEX TO FT4 Reviewed date:09/24/2024 09:26:01 AM Interpretation: Performing Lab:[facility] [address], [id number] Walter Carias Notes/Report: Received Date: 0 0 0 0 0 0 0 TSH W/REFLEX TO FT4 1.40 N Reference Range > or = 20 Years 0.40-4.50 Ranges First trimester 0.26-2.66 Second trimester 0.55-2.73 Third trimester 0.43-2.91 BASIC METABOLIC PANEL W/EGFR Reviewed date:09/24/2024 09:26:01 AM Interpretation: Performing Lab:[facility] [place], [id number] Walter Carias Notes/Report: Received Date: 0 0 [...] mmol/L N CALCIUM 9.7 8.6-10.4 mg/dL N URINALYSIS, REFLEX TO MICROS COPIC Reviewed date:09/24/2024 09:26:01 AM Interpretation: Performing Lab:[facility] [address], [id number] Walter Carias Notes/Report: Received Date: [id number] 0 0 0 0 0 0 0 COLOR YELLOW YELLOW N APPEARANCE CLEAR CLEAR N SPECIFIC GRAVITY 1.010 1.001-1.035 N PH 5.5 5.0-8.0 N GLUCOSE NEGATIVE NEGATIVE N BILIRUBIN NEGATIVE NEGATIVE N KETONES NEGATIVE NEGATIVE N OCCULT BLOOD NEGATIVE NEGATIVE N PROTEIN NEGATIVE NEGATIVE N NITRITE NEGATIVE NEGATIVE N LEUKOCYTE ESTERASE NEGATIVE NEGATIVE N CBC (INCLUDES DIFF/PLT) Reviewed date:09/24/2024 09:26:01 AM Interpretation: Performing Lab:[facility]Xtuhgqmizt16[address] UvtgkvkapdMQ[address] Walter Carias Notes/Report: Received Date: [id number] 0 0 0 0 0 0 0 [...] 10.2 7.5-12.5 fL N ABSOLUTE NEUTROPHILS 6721 9892-3255 cells/uL N ABSOLUTE LYMPHOCYTES 3465 850-3900 cells/uL N ABSOLUTE MONOCYTES 572 200-950 cells/uL N ABSOLUTE EOSINOPHILS 187 15-500 cells/uL N ABSOLUTE BASOPHILS 55 0-200 cells/uL N NEUTROPHILS 61.1 N LYMPHOCYTES 31.5 N MONOCYTES 5.2 N EOSINOPHILS 1.7 N BASOPHILS 0.5 N C-REACTIVE PROTEIN Reviewed date:09/24/2024 09:26:01 AM Interpretation: Performing Lab:[facility] [address], Mar[place] JaimesEmljNG[address] Sadiq White Notes/Report: Received Date: 0 0 0 0 0 0 0 C-REACTIVE PROTEIN <3.0 <8.0 mg/L N Urine Drug Screen Reviewed date:09/16/2024 09:46:32 PM Interpretation: Performing Lab: Notes/Report: benzodiazepine neg cocaine neg opiates pos methadone neg oxycodone neg Suboxone neg Amphetamine neg THC neg barbiturates neg MET (methamphetamines) neg MDMA neg PCP neg Reason For Referral No Information Medications Medication [...] review and pick correct strength-formulat ion from [employer] options. If intended option is not shown, [...] review and pick correct strength-formulat ion from [employer] options. If intended option is not shown, [...] Date Status Comme nts FLUZONE SDV 6M-64Y (5666-8872) IM Intramuscular 06/19/2024 Administered Influenza IM Intramuscular [...] Marital Status Children yes, 1 Pets yes Worship spiritual Problems Problem Type SNOMED Code ICD Code Onset Dates Problem Status W/U Status Risk Notes Problem Anemia (082350061) Anemia, unspecified (D64.9) Active confirmed Problem Vitamin D deficiency (01620826) Vitamin D deficiency, unspecified (E55.9) Active confirmed Problem Tobacco user (250547769) Nicotine dependence, cigarettes, uncomplicated (F17.210) Active confirmed Problem Anxiety disorder (950929010) Anxiety disorder, unspecified (F41.9) Active confirmed Problem Atherosclerosis of coronary artery (712046307) Coronary atherosclerosis due to calcified coronary lesion (I25.84) Active confirmed Problem Spinal stenosis in cervical region (60507424) 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) Active confirmed Problem Chronic fatigue syndrome (disorder) (64900989) Chronic fatigue, unspecified (R53.82) Active confirmed Problem Solitary pulmonary nodule (541722679) Solitary pulmonary nodule (R91.1) Active confirmed Problem Long-term current use of antiplatelet drug (985593851851323) termite control service representative (current) use of aspirin (Z79.82) Active confirmed Problem Vitamin B>12< deficiency anaemia (22097099) Vitamin B12 deficiency anemia, unspecified (D51.9) Active confirmed Problem Allergic rhinitis caused by pollen (disorder) (38082645) Allergic rhinitis due to pollen (J30.1) Active confirmed Problem Chronic obstructive pulmonary disease (13861223) Chronic obstructive pulmonary disease, unspecified (J44.9) Active confirmed Problem Gastro-esophageal reflux disease without esophagitis (938825409) Gastro-esophageal reflux disease without esophagitis (K21.9) Active confirmed Problem Spasm (55151285) Contracture of muscle, unspecified site (M62.40) Active confirmed Problem Obstructive sleep apnea syndrome (disorder) (67021399) Obstructive sleep apnea (adult) (pediatric) (G47.33) Active confirmed Problem Old myocardial infarction (8582334) Old myocardial infarction (I25.2) Active confirmed Vital Signs Heart Rate 74 /min 09/16/2024 Temperature 97.8 degrees Fahrenheit 09/16/2024 Oximetry 93 09/16/2024 Blood pressure diastolic 70 mm Hg 09/16/2024 Height 71.0 in 09/16/2024 Blood pressure systolic 138 mm Hg 09/16/2024 Weight 168.8 lbs 09/16/2024 BMI 23.54 09/16/2024 Encounters Encounter Location Date Provider Diagnosis [address] [address] 11/13/2024 Marvel Grayson Vitamin B12 deficien cy anemia, unspecified D51.9 [facility] [address] [place] [address] 02/07/2025 Provider Migration [facility] [address] [place] [address] 09/16/2024 Marvel Grayson Chronic obstructive pulmonary disease, unspecified J44.9 ; Nicotine dependence, cigarettes, uncomplicated F17.210 ; Coronary atherosclerosis due to calcified coronary lesion I25.84 ; Solitary pulmonary nodule R91.1 ; Other predatory animal exterminator (current) drug therapy Z79.899 and Chronic fatigue, unspecified R53.82 Assessments Encounter Date Diagnosis (ICD Code) Assessment Notes Treatment Notes Treatment Clinical Notes Section Notes 09/16/2024 Nicotine dependence, cigarettes, uncomplicated (ICD-10 - F17.210) 09/16/2024 Chronic obstructive pulmonary disease, unspecified (ICD-10 - J44.9) 11/13/2024 Vitamin B12 deficiency anemia, unspecified (ICD-10 - D51.9) 09/16/2024 Coronary atherosclerosis due to calcified coronary lesion (ICD-10 - I25.84) 09/16/2024 Solitary pulmonary nodule (ICD-10 - R91.1) 09/16/2024 Other predatory animal exterminator (current) drug therapy (ICD-10 - Z79.899) 09/16/2024 Chronic fatigue, unspecified (ICD-10 - R53.82) Plan Of Treatment Pending Test Test Name Order Date Renin, Serum 02/27/2023 Aldosterone 02/27/2023 Insurance Providers Payer Name Payer Address Payer Phone Subscriber Number Group Number Insured Name Patient Relationship to Insured Coverage Start Date Coverage End Date [employer] [address] [address] [place] [address] [id number] Tiffanie Shabazz Self - patient is the insured [employer] Medicaid Attn Claims Department 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
--- OUTSIDE RECORDS SUMMARY | 2025-07-22 07:55 | XMS_ITS | Encounter Summary ---
Author Organization [facility] ([place], [place], [place], [place], [place]) Address [address] [place] [address] Care Team Providers Care Gym Attendant Name Role Phone Amie Pena MD Primary Care Provider [phone] Marvel Grayson MD Primary Care Provider [phone] Encounter Details Date Type Department Care Team (Late st Contact Info) Description 04/18/2019 Transcribed Document [facility] [address] [place] [address] ProviderMik MD [address] [place] [address] Social History Tobacco Use Types Packs/Day [...] 04/18/2019 14:05 EDT by GENNARO THOMAS, Care Management-Stockroom Associate Final Discharge Planning Discharge Arrangements : Patient Post-Acute Information Patient Name: PRATIK SHABAZZ Gender: Female : [birth year] Age: 48 Years No Post-Acute Placement(s) Listed No Post-Acute Service(s) Listed No [place] Referral(s) Listed Discharge To Care Management : Home/Residential/[facility] or Self Care -01 GENNARO THOMAS Care Management-Stockroom Associate - 04/18/2019 14:05 EDT Electronically signed by [place], [facility] Conversion Dehydrating Press Operator Cerner at 12/16/2022 10:42 AM CDT documented in this encounter Plan of Treatment Upcoming Encounters Date Type Department Care Team (Late st Contact Info) Description 11/03/2025 12:45 PM EST Office Visit [facility] Pulmonology [address] [place] [address] Ben Barrios MD [address] [place] [address] documented as of this encounter Visit Diagnoses Not on filedocumented in this encounter Care Teams Gym Attendant Relationship Specialty Start Date End Date Amie Pena MD [address] [place] [address] PCP - General Family Medicine 10/31/22 04/08/23 Marvel Grayson MD [address] [place] [address] PCP - General Family Medicine 05/17/23 Marvel Grayson [address] [place] [address] Family Practice 04/09/23 documented as of this encounter
--- OUTSIDE RECORDS SUMMARY | 2025-07-22 07:55 | XMS_ITS | Encounter Summary ---
Author Organization [employer] ([place], [place], [place], [place], [place]) Address [address] [place] [address] Care Team Providers Care Change Person Name Role Phone Amie Pena MD Primary Care Provider [phone] Marvel Grayson MD Primary Care Provider [phone] Encounter Details Date Type Department Care Team (Late st Contact Info) Description 04/18/2019 Transcribed Document [facility] [place] [address] [place] [address] ProviderMik MD [address] [place] [address] Social History Tobacco Use Types Packs/Day [...] MD-ORT Finalized Date/Time: 07/16/20 14:19:44 Pt. Name: SHABAZZTIFFANIEO.B./Sex: 1970 Female Med Rec #: [id number] Physician: TASHA ROLDAN MD-INT Financial #: [id number] Pt. Type: I Room/Bed: [facility] Admit/Disch: 04/18/19 04:50:00 - 04/18/19 15:04:00 Institution[place] [facility] [place]Op Case Attendance Entry 1 Entry 2 Entry 3 Case Attendee VU HAYS MD-CARITO MEJIA PA ABNEY, MARSHALL, WIRE ANNEALER Role Performed Surgeon/Proceduralist, Physician radiology assistant WIRE ANNEALER/Nurse General Magistrate First Time In 04/18/19 07:36:00 04/18/19 07:36:00 [...] OR OTHER, ATTENDEE #1 TECH Role Performed Drum Stock Clerk, First Scrub, First Publications Inspector, Ancillary Time In 04/18/19 07:36:00 04/18/19 [...] ATTENDEE #2 Iona Landa, OTHER, ATTENDEE #3 Newspaper Columnist Role Performed Vendor Arcade Attendant Vendor Time In 04/18/19 07:36:00 04/18/19 07:36:00 04/18/19 07:36:00 Time Out 04/18/19 09:19:00 04/18/19 09:19:00 04/18/19 09:19:00 Procedure Lumbar Fusion Posterior Lumbar Fusion Posterior Lumbar Fusion Posterior Other Attendee JIMMIE MENDOZA Superficial Wound Closed By: Last Modified By: GERMAIN CHRISTIAN, GERMAIN FOY, GERMAIN FOY RN 04/18/19 09:19:38 04/18/19 09:19:38 04/18/19 09:19:38 Entry 10 Entry 11 Case Attendee OMA BRAVO, Maria Brown Rn Role Performed WIRE ANNEALER/Nurse General Magistrate Drum Stock Clerk, First Time In 04/18/19 08:40:00 04/18/19 08:55:00 Time Out 04/18/19 08:55:00 04/18/19 09:19:00 Procedure Lumbar Fusion Posterior Lumbar Fusion Posterior Other Attendee BREAK BREAK Superficial Wound Closed By: Last Modified By: GERMAIN CHRISTIAN, GERMAIN FOY RN 04/18/19 09:19:38 04/18/19 09:19:38 [facility] IntraOp Case Attendance Audit 04/18/19 09:19:38 Gate Agent: CRMOSS Modifier: CRMOSS 1 <+> Time Out [...] <*> Procedure Lumbar Fusion Posterior 04/18/19 08:55:27 Gate Agent: CRMOSS Modifier: CRMOSS 10 <+> Time Out 10 <*> Procedure Lumbar Fusion Posterior <+> 11 Case Attendee <+> 11 Role Performed <+> 11 Time In <+> 11 Procedure <+> 11 Other Attendee 04/18/19 08:44:23 Gate Agent: CRMOSS Modifier: CRMOSS 1 <*> Procedure Lumbar [...] Procedure <+> 10 Other Attendee 04/18/19 08:04:43 Gate Agent: CRMOSS Modifier: CRMOSS 1 <*> Procedure Lumbar [...] Procedure <+> 9 Other Attendee 04/18/19 07:58:01 Gate Agent: CRMOSS Modifier: CRMOSS 1 <+> Time In [...] [facility] IntraOp Case Times Audit 04/18/19 09:19:33 Gate Agent: CRMOSS Modifier: CRMOSS <+> 1 Out Room Time <+> 1 Stop Time 04/18/19 09:12:31 Gate Agent: CRMOSS Modifier: CRMOSS <+> 1 Stop Time 04/18/19 08:11:46 Gate Agent: CRMOSS Modifier: CRMOSS <+> 1 Start Time [facility] IntraOp Communication Entry 1 Communication To Family/Significant other Comment START OF PROCEDURE Communication By GERMAIN CHRISTIAN RN Date and Time 04/18/19 08:12:00 Last Modified By: GERMAIN CHRISTIAN RN 04/18/19 08:12:18 [facility] IntraOp Communication Audit 04/18/19 08:12:18 Gate Agent: CRMOSS Modifier: CRMOSS <+> 1 Date and [...] Modified By: GERMAIN CHRISTIAN RN 04/18/19 07:59:17 [facility] IntraOp Fire Risk Assessment Entry 1 Fire [...] Modified By: GERMAIN CHRISTIAN RN 04/18/19 07:59:46 [facility] [place] IntraOp General Case Lead Portfolio Manager 1 Case Information OR OR 01 [facility] Case Level 1 Room Verified Yes Wound Class I - Clean Specialty SN Neurosurgery Anesthesia Type General ASA Class 3 Diagnosis Preop Diagnosis L5-S1 STENOSIS, DDD Postop Same As Preop No Postop Diagnosis DICTATED BY MD Last Modified By: GERMAIN CHRISTIAN RN 04/18/19 08:04:09 [facility] [place] IntraOp Implant Log Entry 1 Entry 2 Entry 3 Type Implant (Synthetic) Implant (Synthetic) Implant (Synthetic) Implant Log Implant Type Other Other Other Tissue Implant Type Implant TB DIVERTED 1 ALLGRFT TB DIVERTED 1 ALLGRFT TB STRAIGHT 1 ALLGRFT Identification [id number] Description Implant Quantity 2 1 1 Implant Site L5-S1 L5-S1 L5-S1 Implant Identification Model Number Implant [id number] Identification Serial Number Implant Identification Lot Number Implant Musculoskeletal Musculoskeletal Musculoskeletal Identification Transplant Fnd Transplant Fnd Transplant Fnd Lay Brother Name: Implant [id number] Identification Catalog Number Implant Size Implant Has an Yes Yes Yes Expiration Date Implant Expiration 11/14/20 10/16/20 06/29/20 Date Wasted Radioactive Material Time Implanted Tissue Implant Continue for Tissue Implant Documentation Tissue Identification Number Graft Prep Per Lay Brother Instructions: Tissue Preparation Method: Reconstitution Solution: Reconstitution Solution Lot Number Reconstitution Solution Expiration Date: Thawing Solution Thawing Solution Lot Number Thawing Solution Expiration Date Preparation Materials, Other Preparation Materials, Other Lot Number Preparation Materials, Other Expiration Date Tissue Prepared/Processed By Lay Brother Paperwork Completed Implant Type Comment Last Modified By: GERMAIN CHRISTIAN RN MOSS, CHRISTY, RN MOSS, CHRISTY, RN 04/18/19 08:25:52 04/18/19 09:12:10 04/18/19 09:12:10 Entry 4 Entry 5 Entry 6 Type Implant (Synthetic) Implant (Synthetic) Implant (Synthetic) Implant Log Implant Type Mesh Hardware Hardware Tissue Implant Type Implant IMP OPTIMESH SCR PEDICLE SCR SET [id number] Identification [id number] Description Implant Quantity 1 3 3 Implant Site L5-S1 L5 -S1 L5 - S1 Implant Identification Model Number Implant Identification Serial Number Implant [id number] Identification Lot Number Implant Spineology Spineology Spineology Identification Lay Brother Name: Implant [id number] Identification Catalog Number Implant Size Implant Has an Yes Yes Yes Expiration Date Implant Expiration 01/02/24 08/03/23 08/03/23 Date Wasted Radioactive Material Time Implanted Tissue Implant Continue for Tissue Implant Documentation Tissue Identification Number Graft Prep Per Lay Brother Instructions: Tissue Preparation Method: Reconstitution Solution: Reconstitution Solution Lot Number Reconstitution Solution Expiration Date: Thawing Solution Thawing Solution Lot Number Thawing Solution Expiration Date Preparation Materials, Other Preparation Materials, Other Lot Number Preparation Materials, Other Expiration Date Tissue Prepared/Processed By Lay Brother Paperwork Completed Implant Type Comment Last Modified By: GERMAIN CHRISTIAN RN MOSS, CHRISTY, RN MOSS, CHRISTY, RN 04/18/19 08:25:52 04/18/19 08:25:52 04/18/19 08:53:45 Entry 7 Entry 8 Entry 9 Type Implant (Synthetic) Implant (Synthetic) Implant (Synthetic) Implant Log Implant Type Hardware Hardware Hardware Tissue Implant Type Implant SCR SET [id number] SCR PEDICLE ARCHANA PERC FIX [id number] Identification [id number] Description Implant Quantity 1 1 1 Implant Site L5 - S1 L5- S1 L 5- S1 Implant Identification Model Number Implant Identification Serial Number Implant [id number] Identification Lot Number Implant Spineology Spineology Spineology Identification Lay Brother Name: Implant [id number] Identification Catalog Number Implant Size Implant Has an Yes Yes Yes Expiration Date Implant Expiration 07/04/23 07/04/23 03/03/23 Date Wasted Radioactive Material Time Implanted Tissue Implant Continue for Tissue Implant Documentation Tissue Identification Number Graft Prep Per Lay Brother Instructions: Tissue Preparation Method: Reconstitution Solution: Reconstitution Solution Lot Number Reconstitution Solution Expiration Date: Thawing Solution Thawing Solution Lot Number Thawing Solution Expiration Date Preparation Materials, Other Preparation Materials, Other Lot Number Preparation Materials, Other Expiration Date Tissue Prepared/Processed By Lay Brother Paperwork Completed Implant Type Comment Last Modified By: GERMAIN CHRISTIAN RN MOSS, CHRISTY, RN MOSS, CHRISTY, RN 04/18/19 09:02:46 04/18/19 09:02:46 04/18/19 09:02:46 Entry 10 Entry 11 Type Implant (Synthetic) Implant (Synthetic) Implant Log Implant Type Hardware Hardware Tissue Implant Type Implant ARCHANA PERC FIX [id number] ARCHANA PERC FIX [id number] Identification Description Implant Quantity 1 1 Implant Site L 5- S1 L 5- S1 Implant Identification Model Number Implant Identification Serial Number Implant [id number] Identification Lot Number Implant Spineology Spineology Identification Lay Brother Name: Implant [id number] Identification Catalog Number Implant Size Implant Has an Yes Yes Expiration Date Implant Expiration 07/04/23 09/03/23 Date Wasted Radioactive Material Time Implanted Tissue Implant Continue for Tissue Implant Documentation Tissue Identification Number Graft Prep Per Lay Brother Instructions: Tissue Preparation Method: Reconstitution Solution: Reconstitution Solution Lot Number Reconstitution Solution Expiration Date: Thawing Solution Thawing Solution Lot Number Thawing Solution Expiration Date Preparation Materials, Other Preparation Materials, Other Lot Number Preparation Materials, Other Expiration Date Tissue Prepared/Processed By Lay Brother Paperwork Completed Implant Type Comment Last Modified By: GERMAIN CHRISTIAN RN MOSS, CHRISTY, RN 04/18/19 09:02:46 04/18/19 09:12:10 [facility] IntraOp Implant Log Audit 04/18/19 09:12:10 Gate Agent: CRMOSS Modifier: CRMOSS <+> 9 Implant Identification Description <+> 9 Implant Identification Lot Number <+> 9 Implant Identification Lay Brother Name: <+> 9 Implant Expiration Date <+> 9 Implant Site <+> 9 Implant Quantity <+> 9 Implant Identification Catalog Number <+> 9 Implant Type <+> 9 Implant Has an Expiration Date <+> 9 Type <+> 10 Implant Identification Description <+> 10 Implant Identification Lot Number <+> 10 Implant Identification Lay Brother Name: <+> 10 Implant Expiration Date <+> 10 Implant Site <+> 10 Implant Quantity <+> 10 Implant Identification Catalog Number <+> 10 Implant Type <+> 10 Implant Has an Expiration Date <+> 10 Type <+> 11 Implant Identification Description <+> 11 Implant Identification Lot Number <+> 11 Implant Identification Lay Brother Name: <+> 11 Implant Expiration Date <+> 11 Implant Site <+> 11 Implant Quantity <+> 11 Implant Identification Catalog Number <+> 11 Implant Type <+> 11 Implant Has an Expiration Date <+> 11 Type 04/18/19 09:02:46 Gate Agent: CRMOSS Modifier: CRMOSS <+> 5 Implant Identification Description <+> 5 Implant Identification Lot Number <+> 5 Implant Identification Lay Brother Name: <+> 5 Implant Expiration Date <+> 5 Implant Site <+> 5 Implant Quantity <+> 5 Implant Identification Catalog Number <+> 5 Implant Type <+> 5 Implant Has an Expiration Date <+> 5 Type <+> 6 Implant Identification Description <+> 6 Implant Identification Lot Number <+> 6 Implant Identification Lay Brother Name: <+> 6 Implant Expiration Date <+> 6 Implant Site <+> 6 Implant Quantity <+> 6 Implant Identification Catalog Number <+> 6 Implant Type <+> 6 Implant Has an Expiration Date <+> 6 Type <+> 7 Implant Identification Description <+> 7 Implant Identification Lot Number <+> 7 Implant Identification Lay Brother Name: <+> 7 Implant Expiration Date <+> 7 Implant Site <+> 7 Implant Quantity <+> 7 Implant Identification Catalog Number <+> 7 Implant Type <+> 7 Implant Has an Expiration Date <+> 7 Type <+> 8 Implant Identification Description <+> 8 Implant Identification Lot Number <+> 8 Implant Identification Lay Brother Name: <+> 8 Implant Expiration Date <+> 8 Implant Site <+> 8 Implant Quantity <+> 8 Implant Identification Catalog Number <+> 8 Implant Type <+> 8 Implant Has an Expiration Date <+> 8 Type 04/18/19 08:53:45 Gate Agent: CRMOSS Modifier: CRMOSS <+> 4 Implant Identification Description <+> 4 Implant Identification Lot Number <+> 4 Implant Identification Lay Brother Name: <+> 4 Implant Expiration Date <+> [...] Medication/Irrigant PB irrigation 1000ml ANESTHETIC solution - [id number] COCKTAIL-LIS Combo Med List Time Administered Route of [...] By GERMAIN CHRISTIAN, RICKEY, JODI FLORES, GIANNI, CARITO WONG PA, VU HAYS MD-ORT Position Verified [...] Type Fluoroscopy Fluoroscopy Type C-Arm Site L5-S1 Gas Analyst Name Iona Landa, Newspaper Columnist Protective Devices Yes Used Last Modified By: GERMAIN CHRISTIAN RN 04/18/19 08:16:54 Case Comments <None> Finalized By: Ariella Desouza RN Document Signatures Signed By: GERMAIN CHRISTIAN RN 04/18/19 09:20 Ariella Desouza RN 07/16/20 14:19 Unfinalized History Date/Time Username Reason for Unfinalizing Freetext Reason for Unfinalizing 07/16/20 14:19 REGINA Chart Audit Electronically signed by Karthikeyan Bean Conversion Supervisor Cemetery Workers Cerner at 12/16/2022 10:44 AM CDT documented in this encounter Plan of Treatment Upcoming Encounters Date Type Department Care Team (Late st Contact Info) Description 11/03/2025 12:45 PM EST Office Visit [facility] Pulmonology - [address] [place] [address] Ben Barrios MD [address] [place] [address] documented as of this encounter Visit Diagnoses Not on filedocumented in this encounter Care Teams Change Person Relationship Specialty Start Date End Date Amie Pena MD [address] [place] [address] PCP - General Family Medicine 10/31/22 04/08/23 Marvel Grayson MD [address] [place] [address] PCP - General Family Medicine 05/17/23 Marvel Grayson [address] [place] [address] Family Practice 04/09/23 documented as of this encounter
--- OUTSIDE RECORDS SUMMARY | 2025-07-22 07:55 | XMS_ITS | Encounter Summary ---
Author Organization [employer] ([place], [place], [place], [place], [place]) Address [address] [place] [address] Care Team Providers Care Oiler Helper Name Role Phone Marbella Pena MD Primary Care Provider [phone] Marvel Grayson MD Primary Care Provider [phone] Encounter Details Date Type Department Care Team (Late st Contact Info) Description 04/18/2019 Transcribed Document [facility] [place] Family Medicine [address] [place] [address] ProviderMik MD [address] [place] [address] Social History Tobacco Use Types Packs/Day [...] Level : Independent, modified Toileting Device : [id number]-[id number] commode Toilet Transfer Assist Level : Independent, [...] Office Visit [facility] Pulmonology - [address] [place] [address] Ben Barrios MD [address] [place] [address] documented as of this encounter Visit Diagnoses Not on filedocumented in this encounter Care Teams Oiler Helper Relationship Specialty Start Date End Date Marbella Pena MD [address] [place], [place] [id number] PCP - General Family Medicine 10/31/22 04/08/23 Marvel Grayson MD [address] [place] [address] PCP - General Family Medicine 05/17/23 Marvel Grayson [address] [place] [address] Family Practice 04/09/23 documented as of this encounter
--- OUTSIDE RECORDS SUMMARY | 2025-07-22 07:55 | XMS_ITS | Encounter Summary ---
Author Organization [employer] ([place], [place], [place], [place], [place]) Address [address] [place] [address] Care Team Providers Care Printing Machinist Name Role Phone Amie Pena MD Primary Care Provider [phone] Marvel Grayson MD Primary Care Provider [phone] Encounter Details Date Type Department Care Team (Late st Contact Info) Description 07/05/2019 Transcribed Document [facility] [place] [facility] [place] [address] ProviderMik MD [address] [place] [address] Social History Tobacco Use Types Packs/Day [...] Performed On: 07/05/2019 21:23 EDT by Max Pereyra RN Advance Directive Patient has Advance Directive [...] Shabazz Emergency Contact #1 Phone Number : [phone] Emergency Contact #1 Relationship : Emergency Contact #2 : Rebeca Emergency Contact #2 Phone Number : [phone] Emergency Contact #2 Relationship : sister Primary Language : Swedish Preferred Communication Mode : Verbal Communication Barrier [...] Scale Risk Level : 25-45 Medium Risk M[place]ett Fall Interventions : Adequate lighting, Assistive devices [...] : Refuses FDA approved medications Implant/Device Type, Smoking Pipes Cleaner and Model : none Max Pereyra RN [...] Updated: 09/25/2018 17:08:54 EST by Tahira Coffey, RICKEY) 10 or more cigarettes (1/2 pack or more)/day in last 30 days Smoking Status. Never Smokeless Tobacco Status. e-Cigarettes Alternative Nicotine Product Use. (Last Updated: 04/11/2019 13:17:27 EDT by ALLA ZAPATA, RICKEY) Alcohol: Use in Last 12 Months: No. (Last Updated: 11/28/2013 12:39:53 EDT by DIALLO MCKEON, RICKEY) Alcohol Use History Yes. Alcohol Use Comment [...] Source : Chart Height Entry Format : [place] Height, Feet : 5 ft(Converted to: 152 cm, 60 Inch) Height, Inches : 11 Inch(Converted to: 0 ft 11 Inch, 27.94 cm) Clinical Height : 180.34 cm Weight Source : Bed scale Weight Entry Format : [place] Clinical Dosing Weight : 90.91 kg Weight, Pounds : 200 lb Body Surface Area (BSA) : 2.11 m2 Body Mass Index : 28 kg/m2 (HI) [place] Body Weight : 70 kg Max Pereyra [...] [facility] Pulmonology - [address] [place] [address] Ben Barrios MD [address] [place] [address] documented as of this encounter Visit Diagnoses Not on filedocumented in this encounter Care Teams Printing Machinist Relationship Specialty Start Date End Date Amie Pena MD [address] [place] [address] [place] [address] PCP - General Family Medicine 10/31/22 04/08/23 Marvel Grayson MD [address] [place] [address] PCP - General Family Medicine 05/17/23 Marvel Grayson [address] [place] [address] Family Practice 04/09/23 documented as of this encounter
--- OUTSIDE RECORDS SUMMARY | 2025-07-22 07:55 | XMS_ITS | Encounter Summary ---
Author Organization [employer] ([place], [place], [place], [place], [place]) Address [address] [place] [address] Care Team Providers Care Hospital Internship Name Role Phone Amie Pena MD Primary Care Provider [phone] Marvel Grayson MD Primary Care Provider [phone] Encounter Details Date Type Department Care Team (Late st Contact Info) Description 04/18/2019 Transcribed Document [facility] [place] [facility] [place] [address] ProviderMik MD [address] [place] [address] Social History Tobacco Use Types Packs/Day [...] Source : Stated Height Entry Format : [place] Height, Feet : 5 ft(Converted to: 152 cm, 60 Inch) Height, Inches : 11 Inch(Converted to: 0 ft 11 Inch, 27.94 cm) Clinical Height : 180.34 cm Weight Source : Standing scale Weight Entry Format : [place] Clinical Dosing Weight : 91.36 kg Weight, Pounds : 201 lb Body Surface Area (BSA) : 2.12 m2 Body Mass Index : 28.1 kg/m2 (HI) [place] Body Weight : 70 kg Yi Hardy Rn - 04/18/2019 6:33 EDT Health Histories Smoking Status : 10 or more cigarettes (1/2 pack or more)/day in last 30 days Smokeless Tobacco Status : Never Desires Tobacco Cessation Medication : No Reason for No Tobacco Cessation Medication : Refuses FDA approved medications Implant/Device Type, Facility Engineer and Model : none Yi Hardy Rn [...] Obtained From : Patient Primary Language : Urdu Preferred Communication Mode : Verbal Communication Barrier [...] Hx Falls Immediate/Within 3 Months : No Adnrade Secondary Diagnosis : No ANDRADE Use of Ambulatory Aid : None ANDRADE IV Therapy or IV Access : Yes Andrade Gait/Transferring : Normal, bedrest, immobile Andrade Mental Status : Oriented to own ability Andrade Fall Risk Score : 20 ANDRADE Fall Scale Risk Level : 0-24 Low Risk [place] Fall Interventions : Adequate lighting, Bed in [...] the text rendition version of the form. [place] Coma Brooke Best Motor Response : Obey commands Brooke Best Verbal Response : Oriented Brooke Eye Opening Response : Spontaneous Brooke Coma Score : 15 Yi Hardy Rn - 04/18/2019 6:33 EDT Electronically signed by Karthikeyan Bean Conversion Microbiology Lab Assistant Cerner at 12/16/2022 10:42 AM CDT documented in this encounter Plan of Treatment Upcoming Encounters Date Type Department Care Team (Late st Contact Info) Description 11/03/2025 12:45 PM EST Office Visit [facility] Pulmonology - [address] [place] [address] Ben Barrios MD [address] [facility] [address] [place] [address] documented as of this encounter Visit Diagnoses Not on filedocumented in this encounter Care Teams Hospital Internship Relationship Specialty Start Date End Date Amie Pena MD [address] [place] [address] PCP - General Family Medicine 10/31/22 04/08/23 Marvel Grayson MD [address] [place] [address] PCP - General Family Medicine 05/17/23 Marvel Grayson [address] [place] [address] Family Practice 04/09/23 documented as of this encounter
--- OUTSIDE RECORDS SUMMARY | 2025-07-22 07:56 | XMS_ITS | Encounter Summary ---
Author Organization [employer] ([place], [place], [place], [place], [place]) Address [address] [place] [address] Care Team Providers Care Instructional Systems Specialist Name Role Phone Amie Pena MD Primary Care Provider [phone] Marvel Grayson MD Primary Care Provider [phone] Encounter Details Date Type Department Care Team (Late st Contact Info) Description 04/18/2019 Transcribed Document [facility] [place] Family Medicine [address] [place] [address] ProviderMik MD [address] [place] [address] Social History Tobacco Use Types Packs/Day [...] On: 04/18/2019 18:41 EDT by Nasreen Fishman, firmware manager Documentation Patient Disposition, General : Discharge Discharge [...] Office Visit [facility] Pulmonology - [address] [place] [address] Ben Barrios MD [address] [place] [address] documented as of this encounter Visit Diagnoses Not on filedocumented in this encounter Care Teams Instructional Systems Specialist Relationship Specialty Start Date End Date Amie Pena MD [address] [place] [address] PCP - General Family Medicine 10/31/22 04/08/23 Marvel Grayson MD [address] [place] [address] PCP - General Family Medicine 05/17/23 Marvel Grayson [address] [place] [address] Family Practice 04/09/23 documented as of this encounter
--- OUTSIDE RECORDS SUMMARY | 2025-07-22 07:56 | XMS_ITS | Referral Summary ---
Author Organization [employer] ([place], [place], [place], [place], [place]) Address [address] [place] [address] Care Team Providers Care Celluloid Trimmer Name Role Phone Marvel Grayson MD Primary Care Provider [phone] Encounters Date Type Department Care Team Description 05/28/2025 3:24 PM EDT - 05/28/2025 11:59 PM EDT Hospital Encounter [facility] Diagnostic Imaging - [facility] [address] [place] [address] Ben Barrios MD Community acquired bacterial pneumonia Discharge Disposition: Home or Self Care 05/28/2025 Travel 05/28/2025 1:45 PM EDT Office Visit [facility] Pulmonology - [facility] [address] [place] [address] Ben Barrios MD Solitary pulmonary nodule (Primary Dx); Pulmonary nodules/lesions, multiple; Community acquired bacterial pneumonia from Last 3 Months Allergies Active Allergy [...] Oral, Chew Tab, Daily, 0 Refill(s) 10/25/19 22 Active nitroglycerin (NITROSTAT) 0.4 MG SL tablet 1 Tab, SubLINgual, Tab, Q5Min, PRN Chest Pain, # 100 Tab, 0 Refill(s), Pharmacy: [facility]/pharmacy #[id number], 180.34, cm, 10/23/21 13:50:00 EST, CLINICALHEIGHT, [...] (15 mg total) by mouth daily. 09/05/19 Active miscellaneous medical supply misc 11/13/19 25 Active budesonide (PULMICORT) 1 mg/2 [...] Inhaler 11 11/28/19 25 026 Active ipratropium-albut [place] (DUO-NEB) 0.5 mg-3 mg(2.5 mg base)/3 mL nebulizer solutionIndicatio ns:COPD with acute exacerbation (HCC) Inhale 3 mLs by nebulization every 4 (four) hours as needed for wheezing or shortness of breath. 240 mL 6 11/28/19 25 026 Active HYDROcodone-aceta minophen (NORCO) [...] daily. 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 Transcribed by Mabel Stokes PA-C. us Ben Barrios MD IMG CT ORDERABLES Final [...] 2:40 PM EDT 01/25/2022 12:28 AM EDT [facility] Historical Provider PATHOLOGY/CYTOLOGY MAURICIO THOMAS Edited Result - Final [facility] [address] [phone] * MM digital mammo screen bilateral (03/03/2021 5:10 PM EDT) Anatomical Region Laterality Modality Breast Bilateral Mammography 03/03/2021 5:10 PM EDT Narrative 03/04/2021 2:22 PM EDT PROCEDURE: Bilateral digital screening mammogram. REASON FOR EXAM: Routine screening. FAMILY HISTORY: Intermediate family history of breast cancer COMPARISON STUDY: [facility] 2015 and 2019 FINDINGS: Craniocaudal and mediolateral [...] the next mammogram. At our facility, a [place] marker is positioned over a visible skin lesion and a linear marker is used to indicate a scar. A triangular marker is placed on a self reported palpable finding. cc: Procedure Note Oscar Elizondo MD - 12/19/2022 PROCEDURE: Bilateral digital screening mammogram. REASON FOR EXAM: Routine screening. FAMILY HISTORY: Intermediate family history of breast cancer COMPARISON STUDY: [facility] 2015 and 2019 FINDINGS: Craniocaudal and mediolateral [...] the next mammogram. At our facility, a [place] marker is positioned over a visible skin lesion and a linear marker is used to indicate a scar. A triangular marker is placed on a self reported palpable finding. cc: Oscar Elizondo MD IM MAMMOGRAPHY ORDERABLES Keshia l Result from Last 3 Months or Most Recently Relevant to Health Maintenance Insurance [facility] ADV Advance Directives For more information, please contact: [phone] * Full Code (Latest Code Status on File) Date Activated Date Inactivated Comments 07/24/2023 1:02 PM 07/25/2023 2:38 PM If no puls e: No intervention If has pulse: Use intubation, mechanical ventilation, defibrillation, ACLS medications, or cardioversion as indicated. Call CLOTH TESTER * Full Code Date Activated Date Inactivated Comments 07/24/2023 11:31 AM 07/24/2023 1:02 PM * Full Code Date Activated Date Inactivated Comments 07/24/2023 7:21 AM 07/24/2023 11:31 AM Care Teams Celluloid Trimmer Relationship Specialty Start Date End Date Marvel Grayson MD PCP - General Family Medicine 05/17/23 Marvel Grayson [address] [place] [address] Family Practice 04/09/23
--- OUTSIDE RECORDS SUMMARY | 2025-07-22 07:56 | XMS_ITS | Encounter Summary ---
Author Organization [employer] ([place], [place], [place], [place], [place]) Address [address] [place] [address] Care Team Providers Care Log Yard Derrick Operator Name Role Phone Amie Pena MD Primary Care Provider [phone] Marvel Grayson MD Primary Care Provider [phone] Encounter Details Date Type Department Care Team (Late st Contact Info) Description 04/14/2019 Transcribed Document [facility] [place] [address] [place] [address] ProviderMik MD [address] [place] [address] Social History Tobacco Use Types Packs/Day [...] : 5 - Minor Tracking Group : [facility] [place] GURDEEP HIGGINS RN - 04/14/2019 20:14 EDT [...] 04/14/2019 20:20:52 EDT) Problems(Active) Arthritis (SNOMED CT :4963005 ) Name of Problem: Arthritis ; Recorder: LASHANDA WEBER RN; Confirmation: Confirmed ; Classification: Patient Stated ; Code: 3700024 ; Contributor System: Visual IQ ; Last Updated: 02/13/2014 15:57 EDT ; Life Cycle Date: 02/13/2014 ; Life Cycle Status: Active ; Vocabulary: SNOMED CT Asthma (SNOMED CT :[id number] ) Name of Problem: Asthma ; Recorder: PANCHO SAEED RN; Confirmation: Confirmed ; Classification: Medical ; Code: [id number] ; Contributor System: PowerChart ; Last Updated: 02/12/2014 19:24 EDT ; Life Cycle Date: 11/28/2013 ; Life Cycle Status: Active ; Vocabulary: SNOMED CT Back pain (SNOMED CT :559144746 ) Name of Problem: Back pain ; Recorder: DENNISE ALVAREZ RN; Confirmation: Confirmed ; Classification: Medical ; Code: [id number] ; Contributor System: PowerChart ; Last Updated: 07/13/2014 14:28 EST ; Life Cycle Date: 07/13/2014 ; Life Cycle Status: Active ; Vocabulary: SNOMED CT COPD (chronic obstructive pulmonary disease) (SNOMED CT :38812111 ) Name of Problem: COPD (chronic obstructive pulmonary disease) ; Recorder: ALLA ZAPATA RN; Confirmation: Confirmed ; Classification: Medical ; Code: 82996138 ; Contributor System: PowerChart ; Last Updated: 04/11/2019 13:15 EDT ; Life Cycle Date: 04/11/2019 ; Life Cycle Status: Active ; Vocabulary: SNOMED CT Fibromyalgia (SNOMED CT :[id number] ) Name of Problem: Fibromyalgia ; Recorder: PANCHO SAEED RN; Confirmation: Confirmed ; Classification: Medical ; Code: [id number] ; Contributor System: PowerChart ; Last Updated: 02/12/2014 19:24 EDT ; Life Cycle Date: 11/28/2013 ; Life Cycle Status: Active ; Vocabulary: SNOMED CT H/O: hysterectomy (SNOMED CT :872822514 ) Name of Problem: H/O: hysterectomy ; Recorder: HOWARD HU RN; Confirmation: Confirmed ; Classification: Medical ; Code: [id number] ; Contributor System: PowerChart ; Last Updated: 12/29/2016 21:54 EDT ; Life Cycle Date: 12/29/2016 ; Life Cycle Status: Active ; Vocabulary: SNOMED CT heart burn (SNOMED CT :71074314 ) Name of Problem: heart burn ; Recorder: MARIAN YAO, RICKEY; Confirmation: Confirmed ; Classification: Medical ; Code: 12673147 ; Contributor System: [employer]Chart ; Last Updated: 01/20/2019 18:21 EDT ; Life Cycle Date: 03/29/2015 ; Life Cycle Status: Active ; Vocabulary: SNOMED CT PTSD (post-traumatic stress disorder) (SNOMED CT :52887661 ) Name of Problem: PTSD (post-traumatic stress disorder) ; Recorder: MARIAN YAO RN; Confirmation: Confirmed ; Classification: Medical ; Code: 94732140 ; Contributor System: Visual IQ ; Last Updated: 03/29/2015 21:19 EDT ; Life Cycle Date: 03/29/2015 ; Life Cycle Status: Active ; Vocabulary: SNOMED CT Sciatica (SNOMED CT :62876094 ) Name of Problem: Sciatica ; Recorder: TRISH MCMAHON RN; Confirmation: Confirmed ; Classification: Medical ; Code: 37616006 ; Contributor System: [employer]Chart ; Last Updated: 05/24/2015 17:38 EDT ; Life Cycle Date: 05/24/2015 ; Life Cycle Status: Active ; Vocabulary: SNOMED CT Diagnoses(Active) Medical problem - minor Date: 04/14/2019 ; Diagnosis Type: Reason For Visit ; Confirmation: Complaint of ; Clinical Dx: Medical problem - minor ; Classification: Medical ; Clinical Service: Non-Specified ; Code: PNED ; Probability: 0 ; Diagnosis Code: [id number] ED Height and Weight Height Source : Stated Height Entry Format : [place] Height, Feet : 5 ft(Converted to: 152 cm, 60 Inch) Height, Inches : 11 Inch(Converted to: 0 ft 11 Inch, 27.94 cm) Clinical Height : 180.34 cm Weight Source, ED : Standing scale Weight Entry Format : [place] Weight, Pounds : 210 lb Clinical Dosing Weight : 95.45 kg Body Surface Area (BSA) : 2.15 m2 Body Mass Index : 29.3 kg/m2 (HI) [place] Body Weight (IBW) : 70.31 kg NIC HIGGINSRICKEY Enrique - 04/14/2019 20:14 EDT Pain Assessment Pain Assessment : Initial assessment Pain Scale Used : 0-10 Scale Location : Hand, right Onset : Constant Quality : Aching Pain Radiation : No NIC HIGGINSKlaus RN - 04/14/2019 20:14 EDT Pain Scale Intensity : 2 GURDEEP HIGGINS RN - 04/14/2019 20:14 EDT Image 4 - Images currently included in the form version of this document have not been included in the text rendition version of the form. documented in this encounter Plan of Treatment Upcoming Encounters Date Type Department Care Team (Late st Contact Info) Description 11/03/2025 12:45 PM EST Office Visit [facility] Pulmonology - [address] [place] [address] Ben Barrios MD [address] [place] [address] documented as of this encounter Visit Diagnoses Not on filedocumented in this encounter Care Teams Log Yard Derrick Operator Relationship Specialty Start Date End Date Amie Pena MD [address] [place] [address] [place] [address] PCP - General Family Medicine 10/31/22 04/08/23 Marvel Grayson MD [facility] [place] [address] PCP - General Family Medicine 05/17/23 Marvel Grayson [address] [place] [address] Family Practice 04/09/23 documented as of this encounter
--- OUTSIDE RECORDS SUMMARY | 2025-07-22 07:56 | XMS_ITS | Encounter Summary ---
Author Organization [employer] ([place], [place], [place], [place], [place]) Address [address] [place] [address] Care Team Providers Care Ground Support Equipment Assembler Name Role Phone Amie Pena MD Primary Care Provider [phone] Marvel Grayson MD Primary Care Provider [phone] Encounter Details Date Type Department Care Team (Late st Contact Info) Description 04/14/2019 Transcribed Document [facility] [place] [address] [place] [address] ProviderMik MD [address] [place] [address] Social History Tobacco Use Types Packs/Day [...] Communication Barrier : None Primary Language : Belarusian Any Spiritual/Cultural Needs or Requests : No [...] Description 11/03/2025 12:45 PM EST Office Visit [facility] Pulmonology - [address] [place] [address] Ben Barrios MD [address] [place] [address] documented as of this encounter Visit Diagnoses Not on filedocumented in this encounter Care Teams Ground Support Equipment Assembler Relationship Specialty Start Date End Date Amie Pena MD [address] [place], [place] [address] [address] PCP - General Family Medicine 10/31/22 04/08/23 Marvel Grayson MD [address] [place] [address] [place] [address] PCP - General Family Medicine 05/17/23 Marvel Grayson [address] [place] [address] Family Practice 04/09/23 documented as of this encounter
--- OUTSIDE RECORDS SUMMARY | 2025-07-22 07:56 | XMS_ITS | Encounter Summary ---
Author Organization [employer] ([place], [place], [place], [place], [place]) Address [address] [place] [address] Care Team Providers Care Butter Liquefier Name Role Phone Amie Pena MD Primary Care Provider [phone] Marvel Grayson MD Primary Care Provider [phone] Encounter Details Date Type Department Care Team (Late st Contact Info) Description 04/14/2019 Transcribed Document [facility] [place] [address] [place] [address] ProviderMik MD [address] [place] [address] Social History Tobacco Use Types Packs/Day [...] On: 04/14/2019 22:23 EDT by Leah Valentine straw hat presser Process Patient Disposition : Discharge Personal Belongings [...] Prescriptions Given to Patient : Karli Leah Valentine, RN - 04/14/2019 22:23 EDT Electronically signed by Geneva [facility] Conversion Block Press Operator Cerner at 12/16/2022 10:45 AM CDT documented in this encounter Plan of Treatment Upcoming Encounters Date Type Department Care Team (Late st Contact Info) Description 11/03/2025 12:45 PM EST Office Visit [facility] Pulmonology - [address] [place] [address] Ben Barrios MD [address] [place] [address] documented as of this encounter Visit Diagnoses Not on filedocumented in this encounter Care Teams Butter Liquefier Relationship Specialty Start Date End Date Amie Pena MD [address] [place] [address] [place] [address] PCP - General Family Medicine 10/31/22 04/08/23 Marvel Grayson MD [address] [place] [address] [place] [address] PCP - General Family Medicine 05/17/23 Marvel Grayson [address] [place] [address] Family Practice 04/09/23 documented as of this encounter
--- OUTSIDE RECORDS SUMMARY | 2025-07-22 07:57 | XMS_ITS | Encounter Summary ---
Author Organization [employer] ([place], [place], [place], [place], [place]) Address [address] [place] [address] Care Team Providers Care Sales And Service Change Leader Name Role Phone Amie Pena MD Primary Care Provider [phone] Marvel Grayson MD Primary Care Provider [phone] Encounter Details Date Type Department Care Team (Late st Contact Info) Description 04/18/2019 Transcribed Document [facility] [place] [address] [place] [address] ProviderMik MD [address] [place] [address] Social History Tobacco Use Types Packs/Day [...] Intervention Information: acetaminophen-oxyCODONE Performed by Nasreen Fishman, RN on 04/18/2019 12:07:00 EDT acetaminophen-oxyCODONE,1.5Tab Oral,Pain (Moderate [...] of the form. Electronically signed by Geneva, [facility] Conversion Compliance Spec Cerner at 12/16/2022 10:45 AM CDT documented in this encounter Plan of Treatment Upcoming Encounters Date Type Department Care Team (Late st Contact Info) Description 11/03/2025 12:45 PM EST Office Visit [facility] Pulmonology - [address] [place] [address] Ben Barrios MD [address] [place], [place] [address] documented as of this encounter Visit Diagnoses Not on filedocumented in this encounter Care Teams Sales And Service Change Leader Relationship Specialty Start Date End Date Amie Pena MD [address] [place] [address] [place] [address] PCP - General Family Medicine 10/31/22 04/08/23 Marvel Grayson MD [address] [place] [address] PCP - General Family Medicine 05/17/23 Marvel Grayson [address] [place] [address] Family Practice 04/09/23 documented as of this encounter
--- OUTSIDE RECORDS SUMMARY | 2025-07-22 07:57 | XMS_ITS | Encounter Summary ---
Author Organization [employer] ([place], [place], [place], [place], [place]) Address [address] [place] [address] Care Team Providers Care Food Service Coordinator Name Role Phone Amie Pena MD Primary Care Provider [phone] Marvel Grayson MD Primary Care Provider [phone] Encounter Details Date Type Department Care Team (Late st Contact Info) Description 04/18/2019 Transcribed Document [facility] [place] [address] [place] [address] ProviderMik MD [address] [place] [address] Social History Tobacco Use Types Packs/Day [...] SHABAZZ D.O.B./Sex: 1970 Female Med Rec #: [id number] Physician: VU HAYS MD-ORT Financial #: [id number] Pt. Type: I Room/Bed: [facility] Admit/Disch: 04/18/19 04:50:00 - Institution: [facility] OR PACU Case Times Entry 1 In PACU I 04/18/19 09:20:00 Ready for PACU 04/18/19 09:50:00 Discharge Discharge from PACU 04/18/19 10:30:00 I Last Modified By: Tati Galvez Rn 04/18/19 10:33:37 [facility] PACU Case Times Audit 04/18/19 10:33:37 Windows Security Analyst: HALLEY Modifier: CARRIEC <+> 1 Discharge from PACU I [facility] PACU Acuity Entry 1 Start Time 04/18/19 09:50:00 Stop Time 04/18/19 10:30:00 Acuity Level [facility] PACU Acuity I Last Modified By: Tati Galvez Rn 04/18/19 10:33:54 [facility] PACU Acuity Audit 04/18/19 10:33:54 Windows Security Analyst: CARRIEC Modifier: CARRIEC 1 <+> Start Time 1 <+> Stop Time 1 <*> Acuity Level [facility] PACU Acuity I 2 <-> Start Time 04/18/19 09:50:00 2 <-> Stop Time 04/18/19 10:30:00 2 <-> Acuity Level [facility] PACU Acuity I 04/18/19 10:33:49 Windows Security Analyst: CARRIEC Modifier: CARRIEC <+> 2 Start Time <+> 2 Stop Time <+> 2 Acuity Level Finalized By: Tati Galvez Rn Document Signatures Signed By: Tati Galvez Rn 04/18/19 10:33 Electronically signed by Geneva [facility] Conversion Posting Machine Operator Cerner at 12/16/2022 10:51 AM CDT documented in this encounter Plan of Treatment Upcoming Encounters Date Type Department Care Team (Late st Contact Info) Description 11/03/2025 12:45 PM EST Office Visit [facility] Pulmonology - [address] [place] [address] Ben Barrios MD [address] [place] [address] documented as of this encounter Visit Diagnoses Not on filedocumented in this encounter Care Teams Food Service Coordinator Relationship Specialty Start Date End Date Amie Pena MD [address] [place] [address] [place] [address] PCP - General Family Medicine 10/31/22 04/08/23 Marvel Grayson MD [address] [place] [address] [place] [address] PCP - General Family Medicine 05/17/23 Marvel Grayson [address] [place] [address] Family Practice 04/09/23 documented as of this encounter
--- OUTSIDE RECORDS SUMMARY | 2025-07-22 07:57 | XMS_ITS | Encounter Summary ---
Author Organization [employer] ([place], [place], [place], [place], [place]) Address [address] [place] [address] Care Team Providers Care Voice Writing Reporter Name Role Phone Amie Pena MD Primary Care Provider [phone] Marvel Grayson MD Primary Care Provider [phone] Encounter Details Date Type Department Care Team (Late st Contact Info) Description 04/18/2019 Transcribed Document [facility] [place] [address] [place] [address] ProviderMik MD [address] [place] [address] Social History Tobacco Use Types Packs/Day [...] Source : Stated Height Entry Format : [place] Height, Feet : 5 ft(Converted to: 152 cm, 60 Inch) Height, Inches : 11 Inch(Converted to: 0 ft 11 Inch, 27.94 cm) Clinical Height : 180.34 cm Weight Source : Standing scale Weight Entry Format : [place] Clinical Dosing Weight : 91.36 kg Weight, Pounds : 201 lb Body Surface Area (BSA) : 2.12 m2 Body Mass Index : 28.1 kg/m2 (HI) [place] Body Weight : 70 kg Terri Jon Care Asst-Health Unit Coord - 04/18/2019 6:17 EDT documented in this encounter Plan of Treatment Upcoming Encounters Date Type Department Care Team (Late st Contact Info) Description 11/03/2025 12:45 PM EST Office Visit [facility] Pulmonology - [address] [place] [address] Ben Barrios MD [address] [place] [address] documented as of this encounter Visit Diagnoses Not on filedocumented in this encounter Care Teams Voice Writing Reporter Relationship Specialty Start Date End Date Amie Pena MD [address] [place] [address] PCP - General Family Medicine 10/31/22 04/08/23 Marvel Grayson MD [address] [place] [address] PCP - General Family Medicine 05/17/23 Marvel Grayson [address] [place] [address] Family Practice 04/09/23 documented as of this encounter
--- OUTSIDE RECORDS SUMMARY | 2025-07-22 07:57 | XMS_ITS | Encounter Summary ---
Author Organization [employer] ([place], [place], [place], [place], [place]) Address [address] [place] [address] Care Team Providers Care Pipeline Controller Name Role Phone Amie Pena MD Primary Care Provider [phone] Marvel Grayson MD Primary Care Provider [phone] Encounter Details Date Type Department Care Team (Late st Contact Info) Description 04/18/2019 Transcribed Document [facility] [place] [address] [place] [address] ProviderMik MD [address] [place] [address] Social History Tobacco Use Types Packs/Day [...] ROM : WFL Left UE Strength : [facility] CECILIO MUÑOZ, PT - 04/18/2019 12:10 EDT Lower Extremity RLE Active ROM : WFL Right LE Strength : [facility] LLE Active ROM : WFL Left LE Strength : [facility] CECILIO MUÑOZ PT - 04/18/2019 12:10 EDT [...] Steps with a Railing : A little AM-[facility] Basic Mobility Raw Score : 21 AM-[facility] Basic Mobility Standardized Score : 50.25 AM-[facility] Basic Mobility CMS 0-100% Score : [...] CECILIO MUÑOZ PT - 04/18/2019 12:10 EDT [facility] Topics Physical Therapy Education Grid Balance [...] assist x 2-3 days for safety. CECILIO MUÑOZ, PT - 04/18/2019 12:10 EDT Pain Assessment [...] 1 PT Eval Low Complexity : 1 CECILIO MUÑOZ, PT - 04/18/2019 12:10 EDT Electronically signed by Geneva [facility] Conversion Ticket Manager Cerner at 12/16/2022 10:47 AM CDT documented in this encounter Plan of Treatment Upcoming Encounters Date Type Department Care Team (Late st Contact Info) Description 11/03/2025 12:45 PM EST Office Visit [facility] Pulmonology - [address] [place] [address] Ben Barrios MD [address] [place] [address] documented as of this encounter Visit Diagnoses Not on filedocumented in this encounter Care Teams Pipeline Controller Relationship Specialty Start Date End Date Amie Pena MD [address] [place] [address] PCP - General Family Medicine 10/31/22 04/08/23 Marvel Grayson MD [facility] [place] [place] [address] PCP - General Family Medicine 05/17/23 Marvel Grayson [address] [place] [address] Family Practice 04/09/23 documented as of this encounter
--- OUTSIDE RECORDS SUMMARY | 2025-07-22 07:57 | XMS_ITS | Encounter Summary ---
Author Organization [employer] ([place], [place], [place], [place], [place]) Address [address] [place] [address] Care Team Providers Care Electrical And Instrument Mechanic Name Role Phone Amie Pena MD Primary Care Provider [phone] Marvel Grayson MD Primary Care Provider [phone] Encounter Details Date Type Department Care Team (Late st Contact Info) Description 04/18/2019 Transcribed Document [facility] [place] Family Medicine [address] [place] [address] ProviderMik MD [address] [place] [address] Social History Tobacco Use Types Packs/Day Years Used Date Smoking Tobacco: Never Assessed Comments Unknown Sex and Gender Information Value Date Recorded Sex Assigned at Not on file Legal Sex Female 6:09 PM CDT Gender Identity Not on file Sexual Orientation Not on file documented as of this encounter Miscellaneous Notes * Cerner Conversion Note - Mik ProviderMD - 04/18/2019 9:41 AM CDT Patient: PRATIK SHABAZZ Age: 48 years Sex: Female : 1970 Associated Diagnoses: None Author: VU HAYS MD-ORT Operative Report DATE OF PROCEDURE. April 18, 2019 PROCEDURE: [id number] level interbody arthrodesis, posterolateral technique, single space, including quhpjrtdzaaja-D3-Q5 41237-11 placement of interbody mechanical structural bone graft, structural bone,-L5-S1, additional primary procedure [id number] level, segmental instrumentation, L5-S1, dual rods and screws. Additional primary procedure [id number] graft harvest for spine surgery, autograft, right iliac crest, structural graft. 57678-hlzzuyhlt, structural bone graft, for spine surgery. PREOPERATIVE DIAGNOSIS(ES): Spinal stenosis. Posterior spondylolisthesis. Disc degeneration. Facet joint spondylosis. L5-S1 POSTOPERATIVE DIAGNOSIS(ES): Posterior Spondylolisthesis. Spinal stenosis. Disc degeneration. Facet joint spondylosis. L5-S1 SURGEON: Vu Hays MD. OPEN END SPINNING OPERATOR: Mr. Johnny Flores The duties of the medical library assistant are to assist in transferring the patient [...] L5-S1, severe foraminal stenosis Spondylolisthesis, 5 mm P0-F3-thlgxxa, posteriorly, L5 and S1 SURGICAL INDICATORS: Symptoms-severe [...] Modification of activity, weight loss, IMAGING STUDIES L-wadf-zocci 1 spondylolisthesis L5-S1, slippage L5 on S1, [...] Diagnostic SI blocks-no improvement in symptoms. Surgical tltrpuhv-lpbtsa-upk evidence is consistent that the patient's symptoms [...] would be separation for some form of care home, institutionalization patient etc., or surgical treatment. I [...] administered within 1 hour of incision Antibiotics mulrfl-alzum-piddmwlwsg cephalosporin, Ancef Antibiotics are discontinued within 24 [...] and discectomy site. Interbody arthrodesis L5-S1, TLIF approach-67567 far lateral approach, 12 cm off the [...] fusion-with placement of interbody structural bone graft -[id number] 51 Interbody fusion was performed by placement [...] traversing S1 nerve root. Posterior instrumentation L5-S1 nonsegmental.-28319-ijphrxp screw instrumentation through separate incisions, right and [...] Vu Hays M.D. Electronically signed by [facility] Conversion Fisher Crab Cerner at 12/16/2022 10:48 AM CDT documented in this encounter Plan of Treatment Upcoming Encounters Date Type Department Care Team (Late st Contact Info) Description 11/03/2025 12:45 PM EST Office Visit [facility] Pulmonology - [address] [place] [address] Ben Barrios MD [address] [place] [address] documented as of this encounter Visit Diagnoses Not on filedocumented in this encounter Care Teams Electrical And Instrument Mechanic Relationship Specialty Start Date End Date Amie Pena MD [address] [place] [address] [place] [address] PCP - General Family Medicine 10/31/22 04/08/23 Marvel Grayson MD [address] [place] [address] [place] [address] PCP - General Family Medicine 05/17/23 Marvel Grayson [address] [place] [address] Family Practice 04/09/23 documented as of this encounter
--- OUTSIDE RECORDS SUMMARY | 2025-07-22 07:57 | XMS_ITS | Encounter Summary ---
Author Organization [employer] ([place], [place], [place], [place], [place]) Address [address] [place] [address] Care Team Providers Care Urinalysis Technician Name Role Phone Amie Pena MD Primary Care Provider Marvel Grayson MD Primary Care Provider [phone] Encounter Details Date Type Department Care Team (Late st Contact Info) Description 04/18/2019 Transcribed Document [facility] [place] [facility] [place] [address] ProviderMik MD [address] [place] [address] Social History Tobacco Use Types Packs/Day [...] To Learning : None evident Nasreen Fishman, RICKEY - 04/18/2019 11:01 EDT Education: Smoking/Tobacco Cessation [...] Tobacco Cues : Verbalizes understanding Activities to [place] With Smoking Urges : Verbalizes understanding Basic [...] Description 11/03/2025 12:45 PM EST Office Visit [facility] Pulmonology - [address] [place] [address] Ben Barrios MD [address] [place] [address] documented as of this encounter Visit Diagnoses Not on filedocumented in this encounter Care Teams Urinalysis Technician Relationship Specialty Start Date End Date Amie Pena MD [facility] [place] [address] PCP - General Family Medicine 10/31/22 04/08/23 Marvel Grayson MD [address] [place] [address] PCP - General Family Medicine 05/17/23 Marvel Grayson [facility] [place] [address] Family Practice 04/09/23 documented as of this encounter
--- OUTSIDE RECORDS SUMMARY | 2025-07-22 07:57 | XMS_ITS | Encounter Summary ---
Author Organization [employer] ([place], [place], [place], [place], [place]) Address [address] [place] [address] Care Team Providers Care Pastry Assistant Name Role Phone Amie Pena MD Primary Care Provider [phone] Marvel Grayson MD Primary Care Provider [phone] Encounter Details Date Type Department Care Team (Late st Contact Info) Description 04/18/2019 Transcribed Document [facility] [place] [facility] [place] [address] ProviderMik MD [address] [place] [address] Social History Tobacco Use Types Packs/Day [...] Office Visit [facility] Pulmonology - [address] [place] [address] Ben Barrios MD [address] [place], [place] [address] documented as of this encounter Visit Diagnoses Not on filedocumented in this encounter Care Teams Pastry Assistant Relationship Specialty Start Date End Date Amie Pena MD [address] [place] [address] [place] [address] PCP - General Family Medicine 10/31/22 04/08/23 Marvel Grayson MD [address] [place] [address] [place] [address] PCP - General Family Medicine 05/17/23 Marvel Grayson [address] [place], [place] [address] Family Practice 04/09/23 documented as of this encounter
--- OUTSIDE RECORDS SUMMARY | 2025-07-22 07:58 | XMS_ITS | Encounter Summary ---
Author Organization [employer] ([place], [place], [place], [place], [place]) Address [address] [place] [address] Care Team Providers Care Electrical Engineering Intern Name Role Phone Amie Pena MD Primary Care Provider [phone] Marvel Grayson MD Primary Care Provider [phone] Encounter Details Date Type Department Care Team (Late st Contact Info) Description 11/30/2020 Transcribed Document [facility] [place] Family Medicine [address] [place] [address] ProviderMik MD [address] [place] [address] Social History Tobacco Use Types Packs/Day [...] further action required Electronically signed by [place] [facility] Conversion Technical Professional Cerner at 12/16/2022 10:49 AM CDT documented in this encounter Plan of Treatment Upcoming Encounters Date Type Department Care Team (Late st Contact Info) Description 11/03/2025 12:45 PM EST Office Visit [facility] Pulmonology - [address] [place] [address] Ben Barrios MD [address] [place], [place] [address] documented as of this encounter Visit Diagnoses Not on filedocumented in this encounter Care Teams Electrical Engineering Intern Relationship Specialty Start Date End Date Amie Pena MD [address] [place] [address] [place] [address] PCP - General Family Medicine 10/31/22 04/08/23 Marvel Grayson MD [address] [place] [address] [place] [address] PCP - General Family Medicine 05/17/23 Marvel Grayson [address] [place] [address] Family Practice 04/09/23 documented as of this encounter
--- OUTSIDE RECORDS SUMMARY | 2025-07-22 07:58 | XMS_ITS | Encounter Summary ---
Author Organization [employer] ([place], [place], [place], [place], [place]) Address [address] [place] [address] Care Team Providers Care Field Service Manager Name Role Phone Amie Pena MD Primary Care Provider [phone] Marvel Grayson MD Primary Care Provider [phone] Encounter Details Date Type Department Care Team (Late st Contact Info) Description 04/18/2019 Transcribed Document [facility] [place] Family Medicine [address] [place] [address] ProviderMik MD [address] [place] [address] Social History Tobacco Use Types Packs/Day [...] Mik ProviderMD - 04/18/2019 2:31 PM CDT [address] [address] PRATIK SHABAZZ :1970 Visit Time:04/18/2019 Your Visit Summary Your Care Team Admitting Physician - TASHA ROLDAN MD-INT VU HAYS MD-ORT Attending Physician - VU HAYS MD-ORAgatha Primary Care Physician - ELOY JOHANSEN DR Referring Physician - COLLEEN SHEPARD MD-[facility] Your Diagnosis Other intervertebral disc degeneration, lumbar region, Other intervertebral disc degeneration, lumbar region Discharge Vitals Temperature 36.3 ??C Heart Rate (Monitored) 85 Respiratory Rate 18 Blood Pressure 101/58 What to do next Instructions From Your Care Team Discharge Follow Up Instructions: as per sx. booking sheet/order on chart- office, [place] office, 10-14 days Activity: , minimize bending [...] Follow-Up Appointments Follow Up with VU HAYS MD-ORT When 05/01/2019 09:15 AM EDT Comments Appointment has been made Where: [address] [place], [place] [address]- Medications Take your medications faithfully. Do NOT [...] Barley. Bulgur wheat. Millet. Bran muffins. Popcorn. [place]ard wafer crackers. ??? Vegetables Sweet potatoes. Spinach. Kale. Artichokes. Cabbage. Broccoli. Green peas. Carrots. Squash. ??? Fruits Berries. Pears. Apples. Oranges. Avocados. Prunes and raisins. Dried figs. ??? Meats and Other Protein Sources [place], kidney, preciado, and soy beans. Split peas. [...] analilia has 11 g of protein. ??? Pope seeds ??? 1 oz has 5.5 g [...] floor. ??? Place frequently used items in sbub-fn-dbese places ??? Keep electrical cables out of [...] ? Using the bathroom. ? Using household grain wafer machine operator or toxic chemicals. ? Touching or [...] may report side effects to FDA at 6-501-RGP-3161. What other drugs will affect acetaminophen and [...] affect acetaminophen and oxycodone, including prescription and fmjj-xen-yzrbxew medicines, vitamins, and herbal products. Not all [...] to ensure that the information provided by [employer]. ('[employer]') is accurate, up-to-date, and complete, but no guarantee is made to that effect. Drug information contained herein may be time sensitive. [employer] information has been compiled for use by healthcare practitioners and consumers in the [place] and therefore [employer] does not warrant that uses outside of the [place] are appropriate, unless specifically indicated otherwise. Format [employer] drug information does not endorse drugs, diagnose patients or recommend therapy. [employer] drug information is an informational resource designed [...] effective or appropriate for any given patient. [employer] does not assume any responsibility for any aspect of healthcare administered with the aid of information [employer] provides. The information contained herein is not intended to cover all possible uses, directions, precautions, warnings, drug interactions, allergic reactions, or adverse effects. If you have questions about the drugs you are taking, check with your doctor, nurse or pharmacist. Copyright 6602-5899 [employer]. Version: 18.02. Revision Date: 07/31/2018. acetaminophen and [...] may report side effects to FDA at 9-793-KAC-1051. What other drugs will affect acetaminophen and [...] affect acetaminophen and oxycodone, including prescription and neef-uyi-fzsipey medicines, vitamins, and herbal products. Not all [...] to ensure that the information provided by [employer]. ('[employer]') is accurate, up-to-date, and complete, but no guarantee is made to that effect. Drug information contained herein may be time sensitive. [employer] information has been compiled for use by healthcare practitioners and consumers in the [place] and therefore [employer] does not warrant that uses outside of the [place] are appropriate, unless specifically indicated otherwise. [employer] drug information does not endorse drugs, diagnose patients or recommend therapy. [employer] drug information is an informational resource designed [...] effective or appropriate for any given patient. [employer] does not assume any responsibility for any aspect of healthcare administered with the aid of information [employer] provides. The information contained herein is not intended to cover all possible uses, directions, precautions, warnings, drug interactions, allergic reactions, or adverse effects. If you have questions about the drugs you are taking, check with your doctor, nurse or pharmacist. Copyright 1603-1560 [employer]. Version: 18.02. Revision Date: 07/31/2018. gabapentin ([place] [...] are a day sleeper or work a manager shift. Some people have thoughts about suicide [...] may report side effects to FDA at 2-548-TTW-3276. What other drugs will affect gabapentin? Taking gabapentin with other drugs that make you sleepy can worsen this effect. Ask your doctor before taking a sleeping pill, narcotic medication, muscle relaxer, or medicine for anxiety, depression, or seizures. Other drugs may interact with gabapentin, including prescription and snga-lwo-mvecxkz medicines, vitamins, and herbal products. Tell your [...] to ensure that the information provided by [employer]. ('[employer]') is accurate, up-to-date, and complete, but no guarantee is made to that effect. Drug information contained herein may be time sensitive. [employer] information has been compiled for use by healthcare practitioners and consumers in the [place] and therefore [employer] does not warrant that uses outside of the [place] are appropriate, unless specifically indicated otherwise. [employer] drug information does not endorse drugs, diagnose patients or recommend therapy. [employer] drug information is an informational resource designed [...] effective or appropriate for any given patient. [employer] does not assume any responsibility for any aspect of healthcare administered with the aid of information [employer] provides. The information contained herein is not intended to cover all possible uses, directions, precautions, warnings, drug interactions, allergic reactions, or adverse effects. If you have questions about the drugs you are taking, check with your doctor, nurse or pharmacist. Copyright 6979-7048 [employer]. Version: 14.01. Revision Date: 06/12/2017. Emergency Awareness [...] Assistance with quitting is available by contacting 8-301-LUJQ-NOW. This is a free resource providing counseling, [...] range between ( 1.0 and 7.0 ) [place] #: 0.78 K/uL -- Normal range between ( 0.24 and 0.82 ) [place] #: 0.46 K/uL -- Normal range between ( 0.04 and 0.54 ) [place] %: 7.8 % -- Normal range between [...] Urine Bilirubin Dipstick: Negative mg/dL Urine Specific [place]: 1.019 -- Normal range between ( 1.005 and 1.030 ) Urine Type.: [facility] 04/11/19 13:15:00 Creatinine Level: [...] between ( 9.6 and 11.5 ) Patient Name:AG SHABAZZJamaal Arreguin I have received and understand this information and was given the opportunity to ask questions. Patient/Telephone Operator Receptionist Name: Patient/Telephone Operator Receptionist Signature: Relationship to Patient: Clinician/Hospital Telephone Operator Receptionist Signature: Date: documented in this encounter Plan of Treatment Upcoming Encounters Date Type Department Care Team (Late st Contact Info) Description 11/03/2025 12:45 PM EST Office Visit [facility] Pulmonology - [address] [place] [address] Ben Barrios MD [address] [place], [place] [address] documented as of this encounter Visit Diagnoses Not on filedocumented in this encounter Care Teams Field Service Manager Relationship Specialty Start Date End Date Amie Pena MD [address] [place] [address] PCP - General Family Medicine 10/31/22 04/08/23 Marvel Grayson MD [address] [place] [address] PCP - General Family Medicine 05/17/23 Marvel Grayson [address] [place] [address] Family Practice 04/09/23 documented as of this encounter
--- OUTSIDE RECORDS SUMMARY | 2025-07-22 07:58 | XMS_ITS | Encounter Summary ---
Author Organization [employer] ([place], [place], [place], [place], [place]) Address [address] [place] [address] Care Team Providers Care Tunnel Elastic Operator Chainstitch Name Role Phone Amie Pena MD Primary Care Provider [phone] Marvel Grayson MD Primary Care Provider [phone] Encounter Details Date Type Department Care Team (Late st Contact Info) Description 04/18/2019 Transcribed Document [facility] [place] [address] [place] [address] ProviderMik MD [address] [place] [address] Social History Tobacco Use Types Packs/Day [...] 04/18/2019 8:10 AM CDT [facility] PreOp Summary Primary Physician: VU HAYS MD-ORT Finalized Date/Time: 04/22/19 10:37:16 Pt. Name: PRATIK SHABAZZ Kallie Jiménez/Sex: 1970 Female Med Rec #: [id number] Physician: TASHA ROLDAN MD-INT Financial #: [id number] Pt. Type: I Room/Bed: 526/ Admit/Disch: 04/18/19 04:50:00 - 04/18/19 15:04:00 Institution: [facility] [place] PreOp Case Times Entry 1 In Preop 04/18/19 06:00:00 Ready for Holding n/a Room Patient Ready for 04/18/19 06:54:00 Surgery Patient Out of Preop 04/18/19 07:28:00 Patient Out of n/a Holding Room Last Modified By: LACEY VELAZQUEZ 04/22/19 10:37:14 [facility] [place] PreOp Case Times Audit 04/22/19 10:37:14 Inventory Controller: [id number] Modifier: [id number] <+> 1 Patient Out of Preop 04/18/19 06:54:36 Inventory Controller: [id number] Modifier: [id number] <+> 1 Patient Ready for Surgery Finalized By: LACEY VELAZQUEZ Document Signatures Signed By: LACEY VELAZQUEZ 04/22/19 10:37 documented in this encounter Plan of Treatment Upcoming Encounters Date Type Department Care Team (Late st Contact Info) Description 11/03/2025 12:45 PM EST Office Visit [facility] Pulmonology - [address] [place] [address] Ben Barrios MD [address] [place] [address] documented as of this encounter Visit Diagnoses Not on filedocumented in this encounter Care Teams Tunnel Elastic Operator Chainstitch Relationship Specialty Start Date End Date Amie Pena MD [facility] [place] [address] PCP - General Family Medicine 10/31/22 04/08/23 Marvel Grayson MD [facility] [place] [address] PCP - General Family Medicine 05/17/23 Marvel Grayson [address] [place] [id number] Family Practice 04/09/23 documented as of this encounter
--- OUTSIDE RECORDS SUMMARY | 2025-07-22 07:58 | XMS_ITS | Encounter Summary ---
Author Organization [employer] ([place], [place], [place], [place], [place]) Address [address] [place] [address] Care Team Providers Care Federal Agent Name Role Phone Amie Pena MD Primary Care Provider [phone] Marvel Grayson MD Primary Care Provider [phone] Encounter Details Date Type Department Care Team (Late st Contact Info) Description 11/30/2020 Transcribed Document [facility] [place] [facility] [place] [address] ProviderMik MD [address] [place] [address] Social History Tobacco Use Types Packs/Day Years Used Date Smoking Tobacco: Never Assessed Comments Unknown Sex and Gender Information Value Date Recorded Sex Assigned at Not on file Legal Sex Female 6:09 PM CDT Gender Identity Not on file Sexual Orientation Not on file documented as of this encounter Miscellaneous Notes * Cerner Conversion Note - Mik Thorne MD - 11/30/2020 5:16 PM CDT ED Discharge Entered On: 11/30/2020 17:17 EDT Performed On: 11/30/2020 17:16 EDT by RADHA BROOKS off track betting manager Process Patient Disposition : Discharge Personal Belongings [...] - 11/30/2020 17:16 EDT Electronically signed by [facility] Conversion Wire Fence Erector Cerner at 12/16/2022 10:51 AM CDT documented in this encounter Plan of Treatment Upcoming Encounters Date Type Department Care Team (Late st Contact Info) Description 11/03/2025 12:45 PM EST Office Visit [facility] Pulmonology - [address] [place] [address] Ben Barrios MD [address] [place] [address] documented as of this encounter Visit Diagnoses Not on filedocumented in this encounter Care Teams Federal Agent Relationship Specialty Start Date End Date Amie Pena MD [address] [place] [address] [place] [address] PCP - General Family Medicine 10/31/22 04/08/23 Marvel Grayson MD [address] [facility] [place] [address] PCP - General Family Medicine 05/17/23 Marvel Grayson [address] [place] [address] Family Practice 04/09/23 documented as of this encounter
--- OUTSIDE RECORDS SUMMARY | 2025-07-22 07:58 | XMS_ITS | Encounter Summary ---
Author Organization [employer] ([place], [place], [place], [place], [place]) Address [address] [place] [address] Care Team Providers Care Property Management Supervisor Name Role Phone Amie Pena MD Primary Care Provider [phone] Marvel Grayson MD Primary Care Provider [phone] Encounter Details Date Type Department Care Team (Late st Contact Info) Description 11/30/2020 Transcribed Document [facility] [place] Family Medicine [facility] [place] [address] ProviderMik MD [address] [place] [address] Social History Tobacco Use Types Packs/Day Years Used Date Smoking Tobacco: Never Assessed Comments Unknown Sex and Gender Information Value Date Recorded Sex Assigned at Not on file Legal Sex Female 6:09 PM CDT Gender Identity Not on file Sexual Orientation Not on file documented as of this encounter Miscellaneous Notes * Cerner Conversion Note - Mik ProviderMD - 11/30/2020 4:11 PM CDT ED [...] Communication Barrier : None Primary Language : Greek Any Spiritual/Cultural Needs or Requests : No [...] Visit [facility] Pulmonology - [address] [place] [address] Ben Barrios MD [address] [place] [address] [place] [address] documented as of this encounter Visit Diagnoses Not on filedocumented in this encounter Care Teams Property Management Supervisor Relationship Specialty Start Date End Date Amie Pena MD [address] [place] [address] PCP - General Family Medicine 10/31/22 04/08/23 Marvel Grayson MD [address] [place] [address] PCP - General Family Medicine 05/17/23 Marvel Grayson [address] [place] [address] Family Practice 04/09/23 documented as of this encounter
--- OUTSIDE RECORDS SUMMARY | 2025-07-22 07:58 | XMS_ITS | Encounter Summary ---
Author Organization [employer] ([place], [place], [place], [place], [place]) Address [address] [place] [address] Care Team Providers Care Nutrition Faculty Member Name Role Phone Amie Pena MD Primary Care Provider [phone] Marvel Grayson MD Primary Care Provider [phone] Encounter Details Date Type Department Care Team (Late st Contact Info) Description 11/30/2020 Transcribed Document [facility] Family [facility] [place] [address] ProviderMik MD [address] [place] [address] Social History Tobacco Use Types Packs/Day [...] Mik ProviderMD - 11/30/2020 4:11 PM CDT [place] Suicide Severity Rating Scale (C-SSRS) Entered On: 11/30/2020 16:17 EDT Performed On: 11/30/2020 16:17 EDT by Erinn Powell RN [place] Suicide Severity Rating Scale (C-SSRS) CSSRS Past [...] Visit [facility] Pulmonology - [address] [place] [address] Ben Barrios MD [address] [place] [address] documented as of this encounter Visit Diagnoses Not on filedocumented in this encounter Care Teams Nutrition Faculty Member Relationship Specialty Start Date End Date Amie Pena MD [address] [place] [address] PCP - General Family Medicine 10/31/22 04/08/23 Marvel Grayson MD [address] [place] [address] PCP - General Family Medicine 05/17/23 Marvel Grayson [address] [place] [address] Family Practice 04/09/23 documented as of this encounter
--- OUTSIDE RECORDS SUMMARY | 2025-07-22 07:58 | XMS_ITS | Encounter Summary ---
Author Organization [employer] ([place], [place], [place], [place], [place]) Address [address] [place] [address] Care Team Providers Care Ux Manager Name Role Phone Amie Pena MD Primary Care Provider [phone] Marvel Grayson MD Primary Care Provider [phone] Encounter Details Date Type Department Care Team (Late st Contact Info) Description 11/30/[address] [facility] [place] [address] ProviderMik MD [address] [place] [address] Social History Tobacco Use Types Packs/Day [...] 11/03/2025 12:45 PM EST Office Visit [facility] Pulmonology - [address] [place] [address] Ben Barrios MD [address] [place] [address] documented as of this encounter Visit Diagnoses Not on filedocumented in this encounter Care Teams Ux Manager Relationship Specialty Start Date End Date Amie Pena MD [address] [place] [address] PCP - General Family Medicine 10/31/22 04/08/23 Marvel Grayson MD [address] [place] [address] PCP - General Family Medicine 05/17/23 Marvel Grayson [address] [place] [address] Family Practice 04/09/23 documented as of this encounter
--- OUTSIDE RECORDS SUMMARY | 2025-07-22 07:58 | XMS_ITS | Encounter Summary ---
Author Organization [employer] ([place], [place], [place], [place], [place]) Address [address] [place] [address] Care Team Providers Care Wind Turbine Machinist Name Role Phone Amie Pena MD Primary Care Provider [phone] Marvel Grayson MD Primary Care Provider [phone] Encounter Details Date Type Department Care Team (Late st Contact Info) Description 11/30/2020 Transcribed Document [facility] Family [place] [address] ProviderMik MD [address] [place] [address] Social History Tobacco Use Types Packs/Day [...] Performed On: 11/30/2020 16:14 EDT by Erinn Powell HOSPITAL CLEANING SPECIALIST Triage Across the Room Chief Complaint : pt c/o back pain between shoulder blades since late last night, pt states has chronic back pain and is scheduled for pain management December 06 Triage Date/Time : 11/30/2020 16:14 EDT Erinn Powell RN - 11/30/2020 16:14 EDT DCP GENERIC CODE Tracking Acuity : 4 - Non - Urgent Tracking Group : [facility] ED Sebastián Erinn Powell RN - 11/30/2020 [...] Unspecified ; Reactions: suicidal ; Created By: HammerAriella chavez RN; Reaction Status: Active ; Category: Drug [...] 11/30/2020 16:17:28 EDT) Problems(Active) Arthritis (SNOMED CT :2803349 ) Name of Problem: Arthritis ; Recorder: LASHANDA WEBER RN; Confirmation: Confirmed ; Classification: Patient Stated ; Code: [id number] ; Contributor System: PowerChart ; Last Updated: 02/13/2014 15:57 EDT ; Life Cycle Date: 02/13/2014 ; Life Cycle Status: Active ; Vocabulary: SNOMED CT Asthma (SNOMED CT :[id number] ) Name of Problem: Asthma ; Recorder: PANCHO SAEED RN; Confirmation: Confirmed ; Classification: Medical ; Code: [id number] ; Contributor System: PowerChart ; Last Updated: 02/12/2014 19:24 EDT ; Life Cycle Date: 11/28/2013 ; Life Cycle Status: Active ; Vocabulary: SNOMED CT Back pain (SNOMED CT :170517831 ) Name of Problem: Back pain ; Recorder: DENNISE ALVAREZ RN; Confirmation: Confirmed ; Classification: Medical ; Code: [id number] ; Contributor System: PowerChart ; Last Updated: 07/13/2014 14:28 EST ; Life Cycle Date: 07/13/2014 ; Life Cycle Status: Active ; Vocabulary: SNOMED CT COPD (chronic obstructive pulmonary disease) (SNOMED CT :73178460 ) Name of Problem: COPD (chronic obstructive pulmonary disease) ; Recorder: ALLA ZAPATA RN; Confirmation: Confirmed ; Classification: Medical ; Code: 13008707 ; Contributor System: PowerChart ; Last Updated: 04/11/2019 13:15 EDT ; Life Cycle Date: 04/11/2019 ; Life Cycle Status: Active ; Vocabulary: SNOMED CT COPD exacerbation (SNOMED CT :040319291 ) Name of Problem: COPD exacerbation ; Recorder: YURIY CASEY; Confirmation: Confirmed ; Classification: Medical ; Code: [id number] ; Contributor System: PowerChart ; Last Updated: 07/07/2019 11:33 EST ; Life Cycle Status: Active ; Responsible Provider: YURIY CASEY; Vocabulary: SNOMED CT Fibromyalgia (SNOMED CT :[id number] ) Name of Problem: Fibromyalgia ; Recorder: PANCHO SAEED RN; Confirmation: Confirmed ; Classification: Medical ; Code: [id number] ; Contributor System: PowerChart ; Last Updated: 02/12/2014 19:24 EDT ; Life Cycle Date: 11/28/2013 ; Life Cycle Status: Active ; Vocabulary: SNOMED CT H/O: hysterectomy (SNOMED CT :416435332 ) Name of Problem: H/O: hysterectomy ; Recorder: HOWARD HU RN; Confirmation: Confirmed ; Classification: Medical ; Code: 911296931 ; Contributor System: PowerChart ; Last Updated: 12/29/2016 21:54 EDT ; Life Cycle Date: 12/29/2016 ; Life Cycle Status: Active ; Vocabulary: SNOMED CT heart burn (SNOMED CT :49255502 ) Name of Problem: heart burn ; Recorder: MARIAN YAO RN; Confirmation: Confirmed ; Classification: Medical ; Code: 79316412 ; Contributor System: PowerChart ; Last Updated: 01/20/2019 18:21 EDT ; Life Cycle Date: 03/29/2015 ; Life Cycle Status: Active ; Vocabulary: SNOMED CT Irritable bowel syndrome (SNOMED CT :04656426 ) Name of Problem: Irritable bowel syndrome ; Recorder: Yi Hardy Rn; Confirmation: Confirmed ; Classification: Medical ; Code: 67964524 ; Contributor System: PowerChart ; Last Updated: 04/18/2019 6:31 EDT ; Life Cycle Date: 04/18/2019 ; Life Cycle Status: Active ; Vocabulary: SNOMED CT Migraine (SNOMED CT :64632254 ) Name of Problem: Migraine ; Recorder: Yi Hardy Rn; Confirmation: Confirmed ; Classification: Medical ; Code: 69565662 ; Contributor System: PowerChart ; Last Updated: 04/18/2019 6:30 EDT ; Life Cycle Date: 04/18/2019 ; Life Cycle Status: Active ; Vocabulary: SNOMED CT Peripheral neuropathy (SNOMED CT :448102502 ) Name of Problem: Peripheral neuropathy ; Recorder: Yi Hardy Rn; Confirmation: Confirmed ; Classification: Medical ; Code: 158760272 ; Contributor System: naaptolChart ; Last Updated: 04/18/2019 6:32 EDT ; Life Cycle Date: 04/18/2019 ; Life Cycle Status: Active ; Vocabulary: SNOMED CT PTSD (post-traumatic stress disorder) (SNOMED CT :14275623 ) Name of Problem: PTSD (post-traumatic stress disorder) ; Recorder: MARIAN YAO RN; Confirmation: Confirmed ; Classification: Medical ; Code: 70828119 ; Contributor System: naaptolChart ; Last Updated: 03/29/2015 21:19 EDT ; Life Cycle Date: 03/29/2015 ; Life Cycle Status: Active ; Vocabulary: SNOMED CT Sciatica (SNOMED CT :25996645 ) Name of Problem: Sciatica ; Recorder: TRISH MCMAHON RN; Confirmation: Confirmed ; Classification: Medical ; Code: 41328007 ; Contributor System: naaptolChart ; Last Updated: 05/24/2015 17:38 EDT ; Life Cycle Date: 05/24/2015 ; Life Cycle Status: Active ; Vocabulary: SNOMED CT Diagnoses(Active) Back pain Date: 11/30/2020 ; Diagnosis Type: Reason For Visit ; Confirmation: Complaint of ; Clinical Dx: Back pain ; Classification: Medical ; Clinical Service: Emergency medicine ; Code: PNED ; Probability: 0 ; Diagnosis Code: [id number] ED Height and Weight Height Source : Stated Height Entry Format : Snyder Height, Feet : 5 ft(Converted to: 152 cm, 60 Inch) Height, Inches : 11 Inch(Converted to: 0 ft 11 Inch, 27.94 cm) Clinical Height : 180.34 cm Weight Source, ED : Critical estimated dosing weight Weight Entry Format : Snyder Weight, Pounds : 220 lb Clinical Dosing Weight : 100 kg Body Surface Area (BSA) : 2.2 m2 Body Mass Index : 30.7 kg/m2 (HI) [place] Body Weight (IBW) : 70.31 kg Erinn Powell RN - 11/30/2020 16:14 EDT documented in this encounter Plan of Treatment Upcoming Encounters Date Type Department Care Team (Late st Contact Info) Description 11/03/2025 12:45 PM EST Office Visit [facility] Pulmonology - [address] [place] [address] Ben Barrios MD [address] [place] [address] documented as of this encounter Visit Diagnoses Not on filedocumented in this encounter Care Teams Wind Turbine Machinist Relationship Specialty Start Date End Date Amie Pena MD [address] [place] [address] PCP - General Family Medicine 10/31/22 04/08/23 Marvel Grayson MD [address] [place] [address] PCP - General Family Medicine 05/17/23 Marvel Grayson [address] [place] [address] Family Practice 04/09/23 documented as of this encounter
--- OUTSIDE RECORDS SUMMARY | 2025-07-22 07:58 | XMS_ITS | Encounter Summary ---
Author Organization [employer] ([place], [place], [place], [place], [place]) Address [address] [place] [address] Care Team Providers Care Fish And Game Warden Name Role Phone Amie Pena MD Primary Care Provider [phone] Marvel Grayson MD Primary Care Provider [phone] Encounter Details Date Type Department Care Team (Late st Contact Info) Description 11/30/2020 Transcribed Document [facility] Family Medicine [facility] [place] [address] ProviderMik MD [address] [place] [address] Social History Tobacco Use Types Packs/Day [...] Mik ProviderMD - 11/30/2020 4:11 PM CDT [place] Violence Assessment Entered On: 11/30/2020 16:17 EDT Performed On: 11/30/2020 16:17 EDT by Erinn Powell RN Bro[place] Violence Assessment Bro[place] Violence Checklist of Symptoms : None Bro[place] Violence Symptoms Subtotal : 0 Broset Violence Symptoms Indicator : Low risk (0) [place]set Interventions : [place] precautions for safety used Erinn Powell RN - 11/30/2020 16:17 EDT Electronically signed by [facility] Conversion Forging Operator Cerner at 12/16/2022 10:50 AM CDT documented in this encounter Plan of Treatment Upcoming Encounters Date Type Department Care Team (Late st Contact Info) Description 11/03/2025 12:45 PM EST Office Visit [facility] Pulmonology - [address] [place] [address] Ben Barrios MD [address] [place] [address] documented as of this encounter Visit Diagnoses Not on filedocumented in this encounter Care Teams Fish And Game Warden Relationship Specialty Start Date End Date Amie Pena MD [address] [place] [address] [place] [address] PCP - General Family Medicine 10/31/22 04/08/23 Marvel Grayson MD [address] [place] [address] [place] [address] PCP - General Family Medicine 05/17/23 Marvel Grayson [address] [place] [address] Family Practice 04/09/23 documented as of this encounter
--- OUTSIDE RECORDS SUMMARY | 2025-07-22 07:58 | XMS_ITS | Encounter Summary ---
Author Organization [employer] ([place], [place], [place], [place], [place]) Address [address] [place] [address] Care Team Providers Care Stone Crusher Operator Name Role Phone Marbella Pena MD Primary Care Provider [phone] Marvel Grayson MD Primary Care Provider [phone] Encounter Details Date Type Department Care Team (Late st Contact Info) Description 11/30/2020 Transcribed Document [facility] [place] Family Medicine [address] [place] [address] ProviderMik MD [address] [place] [address] Social History Tobacco Use Types Packs/Day Years Used Date Smoking Tobacco: Never Assessed Comments Unknown Sex and Gender Information Value Date Recorded Sex Assigned at Not on file Legal Sex Female 6:09 PM CDT Gender Identity Not on file Sexual Orientation Not on file documented as of this encounter Miscellaneous Notes * Cerner Conversion Note - Mik ProviderMD - 11/30/2020 4:35 PM CDT Patient: [...] Years. Removal of ovarian cyst (SNOMED CT 8655412565). I&D to left finger. Hysterectomy (SNOMED CT 245291065).. Family history: No family history items have [...] EDT Height Source Stated Height Entry Format [place] Height/Length, IVORIAN (ft) 5 ft Height/Length IVORIAN 11 Inch CLINICALHEIGHT 180.34 cm Marceline Body Weight 70.31 kg Weight Source, ED Critical estimated dosing weight Weight Entry Format [place] Weight Pashto lb 220 lb CLINICALWEIGHT 100 kg Body [...] fracture, reviewed by Dr Davidson. Notes: ERIC ([place] All Schedule Prescription Electronic Reporting) query complete. Treatment plan to include limited course of prescribed OCCS. Risks (including addiction, benefits, and alternatives) presented to patient. #[id number]. Impression and Plan Diagnosis Thoracic back pain - Discharge, Emergency medicine, Medical Plan Condition: Stable. Disposition: Medically cleared, Discharged Admit/Transfer/Discharge: Discharge (Order): Start: 11/30/2020 16:57 EDT, Discharge to: Home. Prescriptions: Launch Meds List (Selected) Prescriptions Prescribed [place] 7.5 mg-325 mg oral tablet: 1 Tab, [...] of instructions. Notes: I certify that the MLP/CLOTH PIECER performed the services as delegated. I agree with the assessment, treatment plan and disposition of the patient as recorded by the MLP.. documented in this encounter Plan of Treatment Upcoming Encounters Date Type Department Care Team (Late st Contact Info) Description 11/03/2025 12:45 PM EST Office Visit [facility] Pulmonology - [address] [place] [address] Ben Barrios MD [address] [place] [address] documented as of this encounter Visit Diagnoses Not on filedocumented in this encounter Care Teams Stone Crusher Operator Relationship Specialty Start Date End Date Marbella Pena MD [address] [place] [address] [place] [address] PCP - General Family Medicine 10/31/22 04/08/23 Marvel Grayson MD [address] [place] [address] [place] [address] PCP - General Family Medicine 05/17/23 Marvel Grayson [address] [place] [address] Family Practice 04/09/23 documented as of this encounter
--- OUTSIDE RECORDS SUMMARY | 2025-07-22 07:59 | XMS_ITS | Encounter Summary ---
Author Organization [employer] ([place], [place], [place], [place], [place]) Address [address] [place] [address] Care Team Providers Care Slate Trimmer Name Role Phone Marvel Grayson MD Primary Care Provider [phone] Encounter Details Date Type Department Care Team [...] Date Thanh rded Speak language other than Lao at home Not on file 09/21/2023 Want [...] Visit [facility] Pulmonology - [address] [place] [address] Ben Barrios MD [address] [place], [place] [address] documented as of this encounter Visit Diagnoses Not on filedocumented in this encounter Care Teams Slate Trimmer Relationship Specialty Start Date End Date Marvel Grayson MD PCP - General Family Medicine 05/17/23 Marvel Grayson [address] [place] [address] Family Practice 04/09/23 documented as of this encounter
--- OUTSIDE RECORDS SUMMARY | 2025-07-22 07:59 | XMS_ITS | Encounter Summary ---
Author Organization [employer] ([place], [place], [place], [place], [place]) Address [address] [place] [address] Care Team Providers Care Perforator Operator Oil Well Name Role Phone Marbella Pena MD Primary Care Provider [phone] Marvel Grayson MD Primary Care Provider [phone] Encounter Details Date Type Department Care Team (Late st Contact Info) Description 11/30/2020 Transcribed Document [facility] [place] Family Medicine [facility] [place] [address] ProviderMik MD [address] [place] [address] Social History Tobacco Use Types Packs/Day [...] Mik ProviderMD - 11/30/2020 5:10 PM CDT SJKallie Lowery [address] [place] [address] PRATIK SHABAZZ :1970 Visit Time:11/30/2020 [...] When Within 2 to 3 days Where: [facility] [place] [address]- Business (1) Allergies Levaquin Cymbalta (suicidal) Haldol (Hives) Ultram (Hives) Vraylar (Suicidal thoughts) codeine (Respiratory depression) doxycycline (Vomiting) penicillin (Headache) Immunizations This Visit No Immunizations Found Medications What How Much When Instructions Next Dose acetaminophen-hydrocodone (Lortab 5/ 325 oral tablet) Oral Every 6 Hours acetaminophen-hydrocodone ([place] 7.5 mg-325 mg oral tablet) 1 Tablet(s) Oral Every 4 Hours as needed for as needed for pain Duration: 3 Day(s) Pickup at [facility]/pharmacy #[id number] albuterol (albuterol 2.5 mg/ 3 mL (0.083%) inhalation solution) albuterol-ipratropium (DuoNeb 0.5 mg-2.5 mg/ 3 mL inhalation solution) 3 Milliliter(s) Nebulized Inhalation Every 4 Hours budesonide-formoterol (Symbicort 80 mcg-4.5 mcg/ inh inhalation aerosol) Inhalation Two Times A Day gabapentin (gabapentin 300 mg oral capsule) 1 Capsule(s) Two Times A Day ibuprofen loratadine Every Day tiZANidine Oral Pharmacy Information [facility]/pharmacy #[id number]: [address] [place], [place] [id number] [phone] The home medications listed are only as [...] Managing pain, stiffness, and swelling ??? Take hfht-eqi-hilmkva and prescription medicines only as told by [...] day. ??? Do not sit, drive, or breeding manager one place for more than 30 minutes [...] less stress on your back. ??? Take uljk-ysc-hugswkf and prescription medicines and apply heat or ice as directed by your health care provider. This information is not intended to replace advice given to you by your health care provider. Make sure you discuss any questions you have with your health care provider. Document Revised: 12/09/2019 Document Reviewed: 04/03/2018 [employer] Patient Education ?? 2020 [employer] Emergency Awareness and Preventative Care STROKE [...] Assistance with quitting is available by contacting 3-964-GKBHNOW. This is a free resource providing counseling, support, and referral. Or you may contact your personal physician. [employer] Suicide Prevention Lifeline: The National Suicide Prevention [...] was given the opportunity to ask questions. Patient/Neuropsychiatric Aide Name: Patient/Neuropsychiatric Aide Signature: Relationship to Patient: Clinician/Hospital Neuropsychiatric Aide Signature: Please Provide a Telephone Number Where You Can Be Reached: Is it Permissible To Leave a Message? Date: documented in this encounter Plan of Treatment Upcoming Encounters Date Type Department Care Team (Late st Contact Info) Description 11/03/2025 12:45 PM EST Office Visit [facility] Pulmonology - [address] [place] [address] Ben Barrios MD [address] [place], [place] [address] documented as of this encounter Visit Diagnoses Not on filedocumented in this encounter Care Teams Perforator Operator Oil Well Relationship Specialty Start Date End Date Marbella Pena MD [address] [place] [address] PCP - General Family Medicine 10/31/22 04/08/23 Marvel Grayson MD [address] [place] [address] PCP - General Family Medicine 05/17/23 Marvel Grayson [address] [place] [address] Family Practice 04/09/23 documented as of this encounter
--- NOTE | 2025-07-22 08:00 | US_ITS ---
FINAL REPORT CLINICAL HISTORY: Left breast mass 200 / Dr. Davion Sykes FINDINGS: ULTRASOUND-GUIDED LEFT BREAST CORE BIOPSY TECHNIQUE: Limited images were obtained to localize region of interest. The left was prepped in a routine sterile fashion and locally anesthetized with 1% lidocaine. Standard written informed consent was obtained. An 11-gauge vacuum assisted hand-held device was utilized. The needle was positioned posterior to the lesion. Multiple vacuum assisted core samples were obtained. The lesion was noted to be significantly smaller following biopsy. A biopsy marker clip was deployed in satisfactory position. Postbiopsy mammogram showed postbiopsy changes with clip in satisfactory position. Procedure was well tolerated . CONCLUSION: 1. Technically successful ultrasound guided core vacuum assisted biopsy of left breast lesion as above. 2. Biopsy marker clip deployed Histopathology results reveal dense stromal fibrosis without atypical hyperplasia or carcinoma. Pathology is concordant with mammographic findings. Recommend 6 month mammographic and sonographic follow-up as routine benign postbiopsy surveillance. Authenticated and ERN
--- OUTSIDE RECORDS SUMMARY | 2025-07-22 08:00 | XMS_ITS | Encounter Summary ---
Author Organization [employer] ([place], [place], [place], [place], [place]) Address [address] [place] [address] Care Team Providers Care Amusement Ride Operator Name Role Phone Amie Pena MD Primary Care Provider [phone] Marvel Grayson MD Primary Care Provider [phone] Encounter Details Date Type Department Care Team (Late st Contact Info) Description 04/14/2019 Transcribed Document [facility] [address] ProviderMik MD [address] [place] [address] Social History Tobacco Use Types Packs/Day [...] Thorne MD - 04/14/2019 10:21 PM CDT [facility] Sebastián [address] [place] [address] PRATIK SHABAZZ :1970 Visit Time:04/14/2019 Your Visit Summary Your Care Team Admitting Physician - BRAYDEN GARIBAY MD-EMR Attending Physician - BRAYDEN GARIBAY MD-JASBIR Primary Care Physician - ELOY JOHANSEN DR [...] sitting or lying down. Medicines ??? Take gygb-bgs-hasouoo and prescription medicines only as told by [...] 08/14/2002 Document Revised: 09/25/2017 Document Reviewed: 09/25/2017 [employer] Patient Education ?? 2019 [employer]. Emergency Awareness and Preventative Care STROKE is [...] Assistance with quitting is available by contacting 6-204-RQUTPhoenix BiotechnologyNOW. This is a free resource providing counseling, [...] was given the opportunity to ask questions. Patient/Dry Man Name: Patient/Dry Man Signature: Relationship to Patient: Clinician/Hospital Dry Man Signature: Please Provide a Telephone Number Where You Can Be Reached: Is it Permissible To Leave a Message? Date: documented in this encounter Plan of Treatment Upcoming Encounters Date Type Department Care Team (Late st Contact Info) Description 11/03/2025 12:45 PM EST Office Visit [facility] Pulmonology - [address] [place] [address] Ben Barrios MD [address] [place] [address] documented as of this encounter Visit Diagnoses Not on filedocumented in this encounter Care Teams Amusement Ride Operator Relationship Specialty Start Date End Date Amie Pena MD [address] [place] [address] [address] PCP - General Family Medicine 10/31/22 04/08/23 Marvel Grayson MD [address] [place] [address] PCP - General Family Medicine 05/17/23 Marvel Grayson [facility] [place] [address] Family Practice 04/09/23 documented as of this encounter
--- OUTSIDE RECORDS SUMMARY | 2025-07-22 08:00 | XMS_ITS | Encounter Summary ---
Author Organization [employer] ([place], [place], [place], [place], [place]) Address [address] [place] [address] Care Team Providers Care County Coroner Name Role Phone Amie Pena MD Primary Care Provider [phone] Marvel Grayson MD Primary Care Provider [phone] Encounter Details Date Type Department Care Team (Late st Contact Info) Description 04/14/2019 Transcribed Document [facility] [place] [address] [place] [address] ProviderMik MD [address] [place] [address] Social History Tobacco Use Types Packs/Day [...] Visit [facility] Pulmonology - [address] [place] [address] Ben Barrios MD [address] [place] [address] documented as of this encounter Visit Diagnoses Not on filedocumented in this encounter Care Teams County Coroner Relationship Specialty Start Date End Date Amie Pena MD [address] [facility] [place] [address] PCP - General Family Medicine 10/31/22 04/08/23 Marvel Grayson MD [address] [place] [address] PCP - General Family Medicine 05/17/23 Marvel Grayson [address] [place] [address] Family Practice 04/09/23 documented as of this encounter
--- OUTSIDE RECORDS SUMMARY | 2025-07-22 08:00 | XMS_ITS | Encounter Summary ---
Author Organization [employer] ([place], [place], [place], [place], [place]) Address [address] [place] [address] Care Team Providers Care Mrp Controller Name Role Phone Amie Pena MD Primary Care Provider [phone] Marvel Grayson MD Primary Care Provider [phone] Encounter Details Date Type Department Care Team (Late st Contact Info) Description 04/11/2019 Transcribed Document [facility] [place] [address] [place] [address] ProviderMik MD [address] [place] [address] Social History Tobacco Use Types Packs/Day [...] mg = 2 Tab, PRN, Oral, Q6H Reeders 5 mg-325 mg oral tablet 1 Tab, [...] UA is neg for nitrites and LE documented in this encounter Plan of Treatment Upcoming Encounters Date Type Department Care Team (Late st Contact Info) Description 11/03/2025 12:45 PM EST Office Visit [facility] Pulmonology - [address] [place] [address] Ben Barrios MD [address] [place] [address] documented as of this encounter Visit Diagnoses Not on filedocumented in this encounter Care Teams Mrp Controller Relationship Specialty Start Date End Date Amie Pena MD [address] [place] [address] [place] [address] PCP - General Family Medicine 10/31/22 04/08/23 Marvel Grayson MD [address] [place] [address] [place] [address] PCP - General Family Medicine 05/17/23 Marvel Grayson [address] [place] [address] Family Practice 04/09/23 documented as of this encounter
--- OUTSIDE RECORDS SUMMARY | 2025-07-22 08:00 | XMS_ITS | Encounter Summary ---
Author Organization [employer] ([place], [place], [place], [place], [place]) Address [address] [place] [address] Care Team Providers Care Rn Occupational Health Name Role Phone Amie Pena MD Primary Care Provider [phone] Marvel Grayson MD Primary Care Provider [phone] Encounter Details Date Type Department Care Team (Late st Contact Info) Description 04/11/2019 Transcribed Document [facility] [place] [address] [place] [address] ProviderMik MD [address] [place] [address] Social History Tobacco Use Types Packs/Day [...] Source : Stated Height Entry Format : Hendricks Height, Feet : 5 ft(Converted to: 152 cm, 60 Inch) Height, Inches : 11 Inch(Converted to: 0 ft 11 Inch, 27.94 cm) Clinical Height : 180.34 cm Weight Source : Standing scale Weight Entry Format : Hendricks Clinical Dosing Weight : 93.18 kg Weight, Pounds : 205 lb Body Surface Area (BSA) : 2.13 m2 Body Mass Index : 28.7 kg/m2 (HI) [place] Body Weight : 70 kg ALLA ZAPATA [...] 09/25/2018 17:08:54 EST by Tahira Coffey, Rickey) 10 or more cigarettes (1/2 pack or [...] #2 Relationship : - Primary Language : Italian Preferred Communication Mode : Verbal Communication Barrier : None ALAL ZAPATA RN - 04/11/2019 13:19 EDT Abdoulaye [...] Visit [facility] Pulmonology - [address] [place] [address] Bne Barrios MD [address] [place], [place] [address] documented as of this encounter Visit Diagnoses Not on filedocumented in this encounter Care Teams Rn Occupational Health Relationship Specialty Start Date End Date Amie Pena MD [address] [place] [address] [place] [address] PCP - General Family Medicine 10/31/22 04/08/23 Marvel Grayson MD [address] [place] [address] [place] [address] PCP - General Family Medicine 05/17/23 Marvel Grayson [address] [place] [address] Family Practice 04/09/23 documented as of this encounter
--- OUTSIDE RECORDS SUMMARY | 2025-07-22 08:00 | XMS_ITS | Encounter Summary ---
Author Organization [employer] ([place], [place], [place], [place], [place]) Address [address] [place] [address] Care Team Providers Care Climatologist Name Role Phone Amie Pena MD Primary Care Provider [phone] Marvel Grayson MD Primary Care Provider [phone] Encounter Details Date Type Department Care Team (Late st Contact Info) Description 09/11/2020 Transcribed Document [facility] [place] Medicine [facility] [place] [address] ProviderMik MD [address] [place] [address] Social History Tobacco Use Types Packs/Day Years Used Date Smoking Tobacco: Never Assessed Comments Unknown Sex and Gender Information Value Date Recorded Sex Assigned at Not on file Legal Sex Female 6:09 PM CDT Gender Identity Not on file Sexual Orientation Not on file documented as of this encounter Miscellaneous Notes * Cerner Conversion Note - Mik ProviderMD - 09/11/2020 4:31 PM SMELTER OPERATOR [place] Suicide Severity Rating Scale (C-SSRS) Entered On: 09/11/2020 16:58 EST Performed On: 09/11/2020 16:53 EST by Yesika Caicedo RN [place] Suicide Severity Rating Scale (C-SSRS) CSSRS Past [...] Visit [facility] Pulmonology - [address] [place] [address] Ben Barrios MD [address] [place] [address] documented as of this encounter Visit Diagnoses Not on filedocumented in this encounter Care Teams Climatologist Relationship Specialty Start Date End Date Amie Pena MD [address] [place] [address] [place] [address] PCP - General Family Medicine 10/31/22 04/08/23 Marvel Grayson MD [address] [place] [address] PCP - General Family Medicine 05/17/23 Marvel Grayson [address] [place] [address] Family Practice 04/09/23 documented as of this encounter
--- OUTSIDE RECORDS SUMMARY | 2025-07-22 08:00 | XMS_ITS | Encounter Summary ---
Author Organization [employer] ([place], [place], [place], [place], [place]) Address [address] [place] [address] Care Team Providers Care Supervisor Scenic Arts Name Role Phone Amie Pena MD Primary Care Provider [phone] Marvel Grayson MD Primary Care Provider [phone] Encounter Details Date Type Department Care Team (Late st Contact Info) Description 09/11/2020 Transcribed Document [facility] [place] [facility] [place] [address] ProviderMik MD [address] [place] [address] Social History Tobacco Use Types Packs/Day Years Used Date Smoking Tobacco: Never Assessed Comments Unknown Sex and Gender Information Value Date Recorded Sex Assigned at Not on file Legal Sex Female 6:09 PM CDT Gender Identity Not on file Sexual Orientation Not on file documented as of this encounter Miscellaneous Notes * Cerner Conversion Note - Historical ProviderMD - 09/11/2020 4:31 PM MELT HOUSE DRAG OPERATOR Broset Violence Assessment Entered On: 09/11/2020 16:57 [...] [address] [place] [address] Ben Barrios MD [address] [place] [address] documented as of this encounter Visit Diagnoses Not on filedocumented in this encounter Care Teams Supervisor Scenic Arts Relationship Specialty Start Date End Date Amie Pena MD [address] [place] [address] [place] [address] PCP - General Family Medicine 10/31/22 04/08/23 Marvel Grayson MD [facility] [place] [address] PCP - General Family Medicine 05/17/23 Marvel Grayson [address] [place] [address] Family Practice 04/09/23 documented as of this encounter
--- OUTSIDE RECORDS SUMMARY | 2025-07-22 08:01 | XMS_ITS | Encounter Summary ---
Author Organization [employer] ([place], [place], [place], [place], [place]) Address [address] [place] [address] Care Team Providers Care Semi Driver Name Role Phone Marbella Pena MD Primary Care Provider [phone] Marvel Grayson MD Primary Care Provider [phone] Encounter Details Date Type Department Care Team (Late st Contact Info) Description 09/11/2020 Transcribed Document [facility] [place] [address] ProviderMik MD [address] [place] [address] Social History Tobacco Use Types Packs/Day Years Used Date Smoking Tobacco: Never Assessed Comments Unknown Sex and Gender Information Value Date Recorded Sex Assigned at Not on file Legal Sex Female 6:09 PM CDT Gender Identity Not on file Sexual Orientation Not on file documented as of this encounter Miscellaneous Notes * Cerner Conversion Note - Mik Thorne MD - 09/11/2020 5:33 PM ROLLING ATTENDANT Kallie AvondaleTato Lowery [address] [place] [address] PRATIK SHABAZZ :1970 Visit Time:09/11/2020 [...] When Within 3 to 5 days Where: [address] [place] [address] [address] [place] [address] Business (1) Follow Up with MARBELLA PENA When Within 2 to 3 days Where: [address] [place] [address]- Business (1) Follow Up with [...] as needed for for pain Pickup at [facility]/pharmacy #[id number] acetaminophen-hydrocodone (Lortab 5/ 325 oral tablet) Oral Every 6 Hours albuterol (albuterol 2.5 mg/ 3 mL (0.083%) inhalation solution) albuterol-ipratropium (DuoNeb 0.5 mg-2.5 mg/ 3 mL inhalation solution) 3 Milliliter(s) Nebulized Inhalation Every 4 Hours gabapentin (gabapentin 300 mg oral capsule) 1 Capsule(s) Two Times A Day Pharmacy Information [facility]/pharmacy #[id number]: [address], [place] [id number] [phone] The home medications listed are only as [...] as you can. Do not try to picker tender helper a heavy object that is far from [...] on shelves at waist level, and put lawn mower operator objects on lower or higher shelves. ??? [...] 09/27/2005 Document Revised: 10/05/2018 Document Reviewed: 10/05/2018 [employer] Patient Education ?? 2020 [employer] Chronic Back Pain When back pain [...] them backward. ??? Do not sit or paid internship one place for long periods of time. [...] soaking in a warm tub. ??? Take ruqt-zvj-nvbjczw and prescription medicines only as told by [...] Reviewed: 02/27/2018 Elsevier Patient Education ?? 2020 [employer] Chronic Back Pain When back pain [...] them backward. ??? Do not sit or paid internship one place for long periods of time. [...] This can help relieve pain. ??? Take spab-wdu-aekcmvy and prescription medicines only as told by [...] 02/05/2009 Document Revised: 12/11/2019 Document Reviewed: 04/04/2018 [employer] Patient Education ?? 2020 [employer] Emergency Awareness and Preventative Care STROKE [...] Assistance with quitting is available by contacting 2-308-KZOK-NOW. This is a free resource providing counseling, support, and referral. Or you may contact your personal physician. [place] Suicide Prevention Lifeline: The National Suicide Prevention [...] was given the opportunity to ask questions. Patient/Microbiology Director Name: Patient/Microbiology Director Signature: Relationship to Patient: Clinician/Hospital Microbiology Director Signature: Please Provide a Telephone Number Where You Can Be Reached: Is it Permissible To Leave a Message? Date: Electronically signed by [place], [facility] Conversion Machining Supervisor Cerner at 12/16/2022 10:37 AM CDT documented in this encounter Plan of Treatment Upcoming Encounters Date Type Department Care Team (Late st Contact Info) Description 11/03/2025 12:45 PM EST Office Visit [facility] Pulmonology - [address] [place] [phone] Ben Barrios MD [address] [place] [address] documented as of this encounter Visit Diagnoses Not on filedocumented in this encounter Care Teams Semi Driver Relationship Specialty Start Date End Date Marbella Pena MD [address] [place] [address] [place] [address] PCP - General Family Medicine 10/31/22 04/08/23 Marvel Grayson MD [address] [place] [address] [place] [address] PCP - General Family Medicine 05/17/23 Marvel Grayson [address] [place] [address] Family Practice 04/09/23 documented as of this encounter
--- OUTSIDE RECORDS SUMMARY | 2025-07-22 08:01 | XMS_ITS | Encounter Summary ---
Author Organization [employer] ([place], [place], [place], [place], [place]) Address [address] [place] [address] Care Team Providers Care Daylight Driller Name Role Phone Amie Pena MD Primary Care Provider [phone] Marvel Grayson MD Primary Care Provider [phone] Encounter Details Date Type Department Care Team (Late st Contact Info) Description 09/11/2020 Transcribed Document [facility] [place] [facility] [place] [address] ProviderMik MD [address] [place] [address] Social History Tobacco Use Types Packs/Day Years Used Date Smoking Tobacco: Never Assessed Comments Unknown Sex and Gender Information Value Date Recorded Sex Assigned at Not on file Legal Sex Female 6:09 PM CDT Gender Identity Not on file Sexual Orientation Not on file documented as of this encounter Miscellaneous Notes * Cerner Conversion Note - Mik ProviderMD - 09/11/2020 4:31 PM RN CIRCULATING ED Assessment Entered On: 09/11/2020 16:57 EST Performed On: 09/11/2020 16:53 EST by Yesika Caicedo RN ED Quick Look Assessment Level of Consciousness : Alert, Awake Orientation : Oriented x 4 Skin Temperature : Warm Skin Description : Normal for ethnicity Yesika Caicedo RN - 09/11/2020 16:53 EST ED General-Functional Assess Preferred Communication Mode : Verbal Communication Barrier : None Primary Language : Scottish Any Spiritual/Cultural Needs or Requests : No [...] 04/11/2019 13:17:27 EDT by ALLA ZAPATA RN) Nutrition/Health: Caffeine intake amount: pot of [...] 09/11/2020 16:53 EST Electronically signed by [place] [facility] Conversion Lead Warehouse Associate Cerner at 12/16/2022 10:45 AM CDT documented in this encounter Plan of Treatment Upcoming Encounters Date Type Department Care Team (Late st Contact Info) Description 11/03/2025 12:45 PM EST Office Visit [facility] Pulmonology - [address] [place] [address] Ben Barrios MD [address] [place] [address] documented as of this encounter Visit Diagnoses Not on filedocumented in this encounter Care Teams Daylight Driller Relationship Specialty Start Date End Date Amie Pena MD [address] [place], [place] [address] [address] PCP - General Family Medicine 10/31/22 04/08/23 Marvel Grayson MD [facility] [place] [address] PCP - General Family Medicine 05/17/23 Marvel Grayson [address] [place] [address] Family Practice 04/09/23 documented as of this encounter
--- OUTSIDE RECORDS SUMMARY | 2025-07-22 08:01 | XMS_ITS | Encounter Summary ---
Author Organization [employer] ([place], [place], [place], [place], [place]) Address [address] [place] [address] Care Team Providers Care Polisher Implant Name Role Phone Amie Pena MD Primary Care Provider [phone] Marvel Grayson MD Primary Care Provider [phone] Encounter Details Date Type Department Care Team (Late st Contact Info) Description 09/11/2020 Transcribed Document [facility] [place] [address] [place] [address] ProviderMik MD [address] [place] [address] Social History Tobacco Use Types Packs/Day Years Used Date Smoking Tobacco: Never Assessed Comments Unknown Sex and Gender Information Value Date Recorded Sex Assigned at Not on file Legal Sex Female 6:09 PM CDT Gender Identity Not on file Sexual Orientation Not on file documented as of this encounter Miscellaneous Notes * Cerner Conversion Note - Historical ProviderMD - 09/11/2020 5:33 PM MATERIAL COMBINER Electronically signed by Karthikeyan Bean Conversion Cloth Desizing Range Operator Chief Cerner at 12/16/2022 10:52 AM CDT documented in this encounter Plan of Treatment Upcoming Encounters Date Type Department Care Team (Late st Contact Info) Description 11/03/2025 12:45 PM EST Office Visit [facility] Pulmonology - [address] [place] [address] Ben Barrios MD [address] [place] [address] documented as of this encounter Visit Diagnoses Not on filedocumented in this encounter Care Teams Polisher Implant Relationship Specialty Start Date End Date Amie Pena MD [address] [place] [address] PCP - General Family Medicine 10/31/22 04/08/23 Marvel Grayson MD [address] [place] [address] PCP - General Family Medicine 05/17/23 Marvel Grayson [address] [place] [address] Family Practice 04/09/23 documented as of this encounter
--- OUTSIDE RECORDS SUMMARY | 2025-07-22 08:01 | XMS_ITS | Encounter Summary ---
Author Organization [employer] ([place], [place], [place], [place], [place]) Address [address] [place] [address] Care Team Providers Care Manager Garage Name Role Phone Amie Pena MD Primary Care Provider Marvel Grayson MD Primary Care Provider [phone] Encounter Details Date Type Department Care Team (Late st Contact Info) Description 08/06/2020 Transcribed Document [facility] [place] [facility] [place] [address] ProviderMik MD [address] [place] [address] Social History Tobacco Use Types Packs/Day Years Used Date Smoking Tobacco: Never Assessed Comments Unknown Sex and Gender Information Value Date Recorded Sex Assigned at Not on file Legal Sex Female 6:09 PM CDT Gender Identity Not on file Sexual Orientation Not on file documented as of this encounter Miscellaneous Notes * Cerner Conversion Note - Historical ProviderMD - 08/06/2020 1:53 PM NEW CAR MAKE READY MECHANIC Broset Violence Assessment Entered On: 08/06/2020 14:05 EST Performed On: 08/06/2020 14:01 EST by RADHA BROOKS RN Broset Violence Assessment Broset Violence Checklist of Symptoms : None Broset Violence Symptoms Subtotal : 0 Broset Violence Symptoms Indicator : Low risk (0) RADHA BROOKS RN - 08/06/2020 14:01 EST Electronically signed by [facility], [facility] Conversion Border Measurer Cerner at 12/16/2022 10:51 AM CDT documented in this encounter Plan of Treatment Upcoming Encounters Date Type Department Care Team (Late st Contact Info) Description 11/03/2025 12:45 PM EST Office Visit [facility] Pulmonology - [address] [place] [phone] Ben Barrios MD [address] [place] [address] documented as of this encounter Visit Diagnoses Not on filedocumented in this encounter Care Teams Manager Garage Relationship Specialty Start Date End Date Amie Pena MD [facility] [place] [address] PCP - General Family Medicine 10/31/22 04/08/23 Marvel Grayson MD [facility] [place] [address] PCP - General Family Medicine 05/17/23 Marvel Grayson [address] [place] [address] Family Practice 04/09/23 documented as of this encounter
--- OUTSIDE RECORDS SUMMARY | 2025-07-22 08:01 | XMS_ITS | Encounter Summary ---
Author Organization [employer] ([place], [place], [place], [place], [place]) Address [address] [place] [address] Care Team Providers Care Van Driver Name Role Phone Marbella Pena MD Primary Care Provider Marvel Grayson MD Primary Care Provider [phone] Encounter Details Date Type Department Care Team (Late st Contact Info) Description 09/11/2020 Transcribed Document [facility] [place] [address] [place] [address] ProviderMik MD [address] [place] [address] Social History Tobacco Use Types Packs/Day Years Used Date Smoking Tobacco: Never Assessed Comments Unknown Sex and Gender Information Value Date Recorded Sex Assigned at Not on file Legal Sex Female 6:09 PM CDT Gender Identity Not on file Sexual Orientation Not on file documented as of this encounter Miscellaneous Notes * Cerner Conversion Note - Mik ProviderMD - 09/11/2020 5:28 PM SUPERVISOR COMMUNICATIONS AND SIGNALS Patient: PRATIK SHABAZZ Age: 49 years Sex: [...] at 40 Years. Removal of ovarian cyst ([id number]). I&D to left finger. Hysterectomy ([id number]).. Family history: No family history items have [...] EST Height Source Estimated Height Entry Format [place] Height/Length, SRI LANKAN (ft) 5 ft Height/Length SRI LANKAN 11 Inch CLINICALHEIGHT 180.34 cm [place] Body Weight 70.31 kg Weight Source, ED Critical estimated dosing weight Weight Entry Format [place] Weight Mongolian lb 200 lb CLINICALWEIGHT 90.91 kg Body [...] Triage: ED C-SSRS: ED Clinical Reconciliation: ED straightener and aligner: Future (On Hold) MY Digital Screen BILAT: . Impression and Plan Diagnosis Exacerbation of chronic back pain - Discharge, Emergency medicine, Medical Plan Condition: Unchanged. Disposition: Discharged Admit/Transfer/Discharge: Discharge (Order): Start: 09/11/2020 17:31 EST, Discharge to: Home. Prescriptions: Prescription Log Handler Pharmacy: Percocet 5/325 oral tablet (Prescribe): 1 [...] Office Visit [facility] Pulmonology - [address] [place] [address] Ben Barrios MD [address] [place], [place] [id number] documented as of this encounter Visit Diagnoses Not on filedocumented in this encounter Care Teams Van Driver Relationship Specialty Start Date End Date Marbella Pena MD [address] [place] [address] PCP - General Family Medicine 10/31/22 04/08/23 Marvel Grayson MD [address] [place] [address] [place] [address] PCP - General Family Medicine 05/17/23 Marvel Grayson [address] [place] [address] Family Practice 04/09/23 documented as of this encounter
--- OUTSIDE RECORDS SUMMARY | 2025-07-22 08:01 | XMS_ITS | Encounter Summary ---
Author Organization [employer] ([place], [place], [place], [place], [place]) Address [address] [place] [address] Care Team Providers Care Salvage Laborer Name Role Phone Amie Pena MD Primary Care Provider [phone] Marvel Grayson MD Primary Care Provider [phone] Encounter Details Date Type Department Care Team (Late st Contact Info) Description 09/11/2020 Transcribed Document [facility] [place] Family Medicine [address] [place] [address] ProviderMik MD [address] [place] [address] Social History Tobacco Use Types Packs/Day Years Used Date Smoking Tobacco: Never Assessed Comments Unknown Sex and Gender Information Value Date Recorded Sex Assigned at Not on file Legal Sex Female 6:09 PM CDT Gender Identity Not on file Sexual Orientation Not on file documented as of this encounter Miscellaneous Notes * Cerner Conversion Note - Mik ProviderMD - 09/11/2020 6:16 PM MEN'S CUSTOM HAIR PIECE CONSULTANT ED Discharge Entered On: 09/11/2020 18:17 EST Performed On: 09/11/2020 18:16 EST by Amber Loabto RN Discharge Process Patient Disposition : Discharge [...] - 09/11/2020 18:16 EST Electronically signed by [place], [facility] Conversion Motor Express Clerk Cerner at 12/16/2022 10:46 AM CDT documented in this encounter Plan of Treatment Upcoming Encounters Date Type Department Care Team (Late st Contact Info) Description 11/03/2025 12:45 PM EST Office Visit [facility] Pulmonology - [address] [place] [address] Ben Barrios MD [address] [place] [address] documented as of this encounter Visit Diagnoses Not on filedocumented in this encounter Care Teams Salvage Laborer Relationship Specialty Start Date End Date Amie Pena MD [address] [place] [address] [place] [address] PCP - General Family Medicine 10/31/22 04/08/23 Marvel Grayson MD [address] [place] [address] [place] [address] PCP - General Family Medicine 05/17/23 Marvel Grayson [address] [place] [address] Family Practice 04/09/23 documented as of this encounter
--- OUTSIDE RECORDS SUMMARY | 2025-07-22 08:01 | XMS_ITS | Encounter Summary ---
Author Organization [employer] ([place], [place], [place], [place], [place]) Address [address] [place] [address] Care Team Providers Care Cut Off Man Name Role Phone Amie Pena MD Primary Care Provider [phone] Marvel Grayson MD Primary Care Provider [phone] Encounter Details Date Type Department Care Team (Late st Contact Info) Description 09/11/2020 Transcribed Document [facility] [place] Family Medicine [address] [place] [address] ProviderMik MD [address] [place] [address] Social History Tobacco Use Types Packs/Day Years Used Date Smoking Tobacco: Never Assessed Comments Unknown Sex and Gender Information Value Date Recorded Sex Assigned at Not on file Legal Sex Female 6:09 PM CDT Gender Identity Not on file Sexual Orientation Not on file documented as of this encounter Miscellaneous Notes * Cerner Conversion Note - Historical ProviderMD - 09/11/2020 5:33 PM PHYSICAL SCIENCE AIDE Electronically signed by Karthikeyan Bean Conversion Electric Brain Wave Equipment Mechanic Cerner at 12/16/2022 10:39 AM CDT documented in this encounter Plan of Treatment Upcoming Encounters Date Type Department Care Team (Late st Contact Info) Description 11/03/2025 12:45 PM EST Office Visit [facility] Pulmonology - [address] [place] [address] Ben Barrios MD [address] [place] [address] documented as of this encounter Visit Diagnoses Not on filedocumented in this encounter Care Teams Cut Off Man Relationship Specialty Start Date End Date Amie Pena MD [address] [place] [address] PCP - General Family Medicine 10/31/22 04/08/23 Marvel Grayson MD [address] [facility] [place] [address] PCP - General Family Medicine 05/17/23 Marvel Grayson [address] [place] [address] Family Practice 04/09/23 documented as of this encounter
--- OUTSIDE RECORDS SUMMARY | 2025-07-22 08:02 | XMS_ITS | Encounter Summary ---
Author Organization [employer] ([place], [place], [place], [place], [place]) Address [address] [place] [address] Care Team Providers Care Enrichment Teacher Name Role Phone Amie Pena MD Primary Care Provider [phone] Marvel Grayson MD Primary Care Provider [phone] Encounter Details Date Type Department Care Team (Late st Contact Info) Description 04/09/2019 Transcribed Document [facility] [place] Family Medicine [facility] [place] [address] ProviderMik MD [address] [place] [address] Social History Tobacco Use Types Packs/Day [...] Insurance 1 Health Plan: [employer] Policy Number: [id number] Authorization Number: Insurance Primary Name : [employer] Policy Number: [id number] Authorization Status-Primary : Admit approved Authorization Number-Primary : [id number] Number of Days Authorized-Primary : 1 Authorized Service Begin Date-Primary : 04/18/2019 EDT Authorized Service End Date-Primary : 04/18/2019 EDT Authorization Comments-Primary : [employer] approved per availity for inpt 1 day -- Jesenia will f/u for clinicals herself Historical Authorization Comments-Primary : No Authorization Comments Found FREDERIC PHAM RN-Utilization Review - 04/09/2019 16:00 EDT documented in this encounter Plan of Treatment Upcoming Encounters Date Type Department Care Team (Late st Contact Info) Description 11/03/2025 12:45 PM EST Office Visit [facility] Pulmonology - [address] [place] [address] Ben Barrios MD [address] [place] [address] documented as of this encounter Visit Diagnoses Not on filedocumented in this encounter Care Teams Enrichment Teacher Relationship Specialty Start Date End Date Amie Pena MD [address] [place] [address] [place] [address] PCP - General Family Medicine 10/31/22 04/08/23 Marvel Grayson MD [address] [place] [address] PCP - General Family Medicine 05/17/23 Marvel Grayson [address] [place], [place] [address] Family Practice 04/09/23 documented as of this encounter
--- OUTSIDE RECORDS SUMMARY | 2025-07-22 08:02 | XMS_ITS | Encounter Summary ---
Author Organization [employer] ([place], [place], [place], [place], [place]) Address [address] [place] [address] Care Team Providers Care Vp Construction Name Role Phone Amie Pena MD Primary Care Provider [phone] Marvel Grayson MD Primary Care Provider [phone] Encounter Details Date Type Department Care Team (Late st Contact Info) Description 03/10/[address] [facility] [place] Family Medicine [address] [place] [address] ProviderMik MD [address] [place] [address] Social History Tobacco Use Types Packs/Day [...] On: 03/10/2019 12:26 EDT by FARIDA MARSH SHIRT MARKER Triage Across the Room Triage Date/Time : 03/10/2019 12:26 EDT Chief Complaint : c/o lower back pain , pt with hx of chronic back, has an injection scheduled for , pt slow to ambulate FARIDA MARSH RN - 03/10/2019 12:26 EDT DCP GENERIC CODE Tracking Acuity : 4 - Non - Urgent Tracking Group : [facility] FARIDA MARSH RN - [...] Side Effect ; Updated By: ALBERTO PHELPS, PharmJasmine; Reviewed Date: 03/10/2019 12:27 EDT Cymbalta Estimated [...] 03/10/2019 12:29:35 EDT) Problems(Active) Arthritis (SNOMED CT :6387395 ) Name of Problem: Arthritis ; Recorder: LASHANDA WEBER RN; Confirmation: Confirmed ; Classification: Patient Stated ; Code: [id number] ; Contributor System: [facility] ; Last Updated: 02/13/2014 15:57 EDT ; Life Cycle Date: 02/13/2014 ; Life Cycle Status: Active ; Vocabulary: SNOMED CT Asthma (SNOMED CT :[id number] ) Name of Problem: Asthma ; Recorder: CHRISTOPHE, PANCHO W, RN; Confirmation: Confirmed ; Classification: Medical ; Code: [id number] ; Contributor System: PowerChart ; Last Updated: 02/12/2014 19:24 EDT ; Life Cycle Date: 11/28/2013 ; Life Cycle Status: Active ; Vocabulary: SNOMED CT Back pain (SNOMED CT :332584266 ) Name of Problem: Back pain ; Recorder: DENNISE ALVAREZ RN; Confirmation: Confirmed ; Classification: Medical ; Code: [id number] ; Contributor System: PowerChart ; Last Updated: 07/13/2014 14:28 EST ; Life Cycle Date: 07/13/2014 ; Life Cycle Status: Active ; Vocabulary: SNOMED CT Fibromyalgia (SNOMED CT :[id number] ) Name of Problem: Fibromyalgia ; Recorder: PANCHO SAEED RN; Confirmation: Confirmed ; Classification: Medical ; Code: [id number] ; Contributor System: PowerChart ; Last Updated: 02/12/2014 19:24 EDT ; Life Cycle Date: 11/28/2013 ; Life Cycle Status: Active ; Vocabulary: SNOMED CT H/O: hysterectomy (SNOMED CT :631074924 ) Name of Problem: H/O: hysterectomy ; Recorder: HOWARD HU RN; Confirmation: Confirmed ; Classification: Medical ; Code: [id number] ; Contributor System: PresdoChart ; Last Updated: 12/29/2016 21:54 EDT ; Life Cycle Date: 12/29/2016 ; Life Cycle Status: Active ; Vocabulary: SNOMED CT heart burn (SNOMED CT :38024429 ) Name of Problem: heart burn ; Recorder: MARIAN YAO RN; Confirmation: Confirmed ; Classification: Medical ; Code: 91215856 ; Contributor System: PowerChart ; Last Updated: 01/20/2019 18:21 EDT ; Life Cycle Date: 03/29/2015 ; Life Cycle Status: Active ; Vocabulary: SNOMED CT PTSD (post-traumatic stress disorder) (SNOMED CT :35705218 ) Name of Problem: PTSD (post-traumatic stress disorder) ; Recorder: MARIAN YAO, RICKEY; Confirmation: Confirmed ; Classification: Medical ; Code: 87717724 ; Contributor System: [facility] ; Last Updated: 03/29/2015 21:19 EDT ; Life Cycle Date: 03/29/2015 ; Life Cycle Status: Active ; Vocabulary: SNOMED CT Sciatica (SNOMED CT :62013712 ) Name of Problem: Sciatica ; Recorder: TRISH MCMAHON RN; Confirmation: Confirmed ; Classification: Medical ; Code: 94036375 ; Contributor System: [facility] ; Last Updated: 05/24/2015 17:38 EDT ; Life Cycle Date: 05/24/2015 ; Life Cycle Status: Active ; Vocabulary: SNOMED CT Diagnoses(Active) Back pain Date: 03/10/2019 ; Diagnosis Type: Reason For Visit ; Confirmation: Complaint of ; Clinical Dx: Back pain ; Classification: Medical ; Clinical Service: Emergency medicine ; Code: PNED ; Probability: 0 ; Diagnosis Code: [id number] ED Height and Weight Height Source : Stated Height Entry Format : [place] Height, Feet : 5 ft(Converted to: 152 cm, 60 Inch) Height, Inches : 11 Inch(Converted to: 0 ft 11 Inch, 27.94 cm) Clinical Height : 180.34 cm Weight Source, ED : Standing scale Weight Entry Format : [place] Weight, Pounds : 200 lb Clinical Dosing Weight : 90.91 kg Body Surface Area (BSA) : 2.11 m2 Body Mass Index : 28 kg/m2 (HI) [place] Body Weight (IBW) : 70.31 kg FARIDA [...] form. Electronically signed by Karthikeyan Bean Conversion Temperature Control Inspector Cerner at 12/16/2022 10:46 AM CDT documented in this encounter Plan of Treatment Upcoming Encounters Date Type Department Care Team (Late st Contact Info) Description 11/03/2025 12:45 PM EST Office Visit [facility] Pulmonology - [address] [place] [address] Ben Barrios MD [address] [place] [address] documented as of this encounter Visit Diagnoses Not on filedocumented in this encounter Care Teams Vp Construction Relationship Specialty Start Date End Date Amie Pena MD [address] [place] [address] [place] [address] PCP - General Family Medicine 10/31/22 04/08/23 Marvel Grayson MD [address] [place] [address] [place] [address] PCP - General Family Medicine 05/17/23 Marvel Grayson [address] [place] [address] Family Practice 04/09/23 documented as of this encounter
--- OUTSIDE RECORDS SUMMARY | 2025-07-22 08:02 | XMS_ITS | Encounter Summary ---
Author Organization [employer] ([place], [place], [place], [place], [place]) Address [address] [place] [address] Care Team Providers Care Router Operator Radial Name Role Phone Amie Pena MD Primary Care Provider [phone] Marvel Grayson MD Primary Care Provider [phone] Encounter Details Date Type Department Care Team (Late st Contact Info) Description 03/10/2019 Transcribed Document [facility] [place] Family Medicine [address] [place] [address] ProviderMik MD [address] [place] [address] Social History Tobacco Use Types Packs/Day [...] Mik ProviderMD - 03/10/2019 4:18 PM CDT [address] [address] PRATIK SHABAZZ :1970 Visit Time:03/10/2019 [...] When Within 2 to 3 days Where: [address] [place] [address] [address] [place] [id number]- Business (1) Follow Up with FOLLOW UP [...] to contact our Patient Resource Center at [phone] for assistance establishing with a primary care physician. Follow Up with NO PRIM DR JOHANSEN When Within 2 to 3 days Allergies Cymbalta (suicidal) Haldol (Hives) Ultram Vraylar codeine (Respiratory depression) doxycycline penicillin Immunizations This Visit No Immunizations Found Medications What How Much When Instructions Next Dose New acetaminophen-hydrocodone ([place] 5 mg-325 mg oral tablet) 1 Tablet(s) [...] 11/16/2009 Document Revised: 01/25/2017 Document Reviewed: 04/27/2015 [employer] Interactive Patient Education ?? 2019 [employer]. Emergency Awareness and Preventative Care STROKE is [...] Assistance with quitting is available by contacting 7-940-EEVY-NOW. This is a free resource providing counseling, [...] was given the opportunity to ask questions. Patient/Automobile Radiator Mechanic Name: Patient/Automobile Radiator Mechanic Signature: Relationship to Patient: Clinician/Hospital Automobile Radiator Mechanic Signature: Please Provide a Telephone Number Where You Can Be Reached: Is it Permissible To Leave a Message? Date: documented in this encounter Plan of Treatment Upcoming Encounters Date Type Department Care Team (Late st Contact Info) Description 11/03/2025 12:45 PM EST Office Visit [facility] Pulmonology - [address] [place] [address] Ben Barrios MD [address] [place], [place] [address] documented as of this encounter Visit Diagnoses Not on filedocumented in this encounter Care Teams Router Operator Radial Relationship Specialty Start Date End Date Amie Pena MD [address] [place], [place] [address] [address] PCP - General Family Medicine 10/31/22 04/08/23 Marvel Grayson MD [address] [place] [address] [place] [address] PCP - General Family Medicine 05/17/23 Marvel Grayson [address] [place] [address] Family Practice 04/09/23 documented as of this encounter
--- OUTSIDE RECORDS SUMMARY | 2025-07-22 08:03 | XMS_ITS | Encounter Summary ---
Author Organization [employer] ([place], [place], [place], [place], [place]) Address [address] [place] [address] Care Team Providers Care State Wildlife Officer Name Role Phone Amie Pena MD Primary Care Provider [phone] Marvel Grayson MD Primary Care Provider [phone] Encounter Details Date Type Department Care Team (Late st Contact Info) Description 03/10/2019 Transcribed Document [facility] Family Medicine [address] [place] [address] ProviderMik MD [address] [place] [address] Social History Tobacco Use Types Packs/Day [...] Mik ProviderMD - 03/10/2019 4:00 PM CDT [address] [address] PRATIK SHABAZZ :1970 Visit Time:03/10/2019 [...] When Within 2 to 3 days Where: [address] [place] [address] [address] [place] [id number]- Business (1) Follow Up with FOLLOW UP [...] to contact our Patient Resource Center at [phone] for assistance establishing with a primary care physician. Follow Up with NO PRIM DR JOHANSEN When Within 2 to 3 days Allergies Cymbalta (suicidal) Haldol (Hives) Ultram Vraylar codeine (Respiratory depression) doxycycline penicillin Immunizations This Visit No Immunizations Found Medications What How Much When Instructions Next Dose New acetaminophen-hydrocodone ([place] 5 mg-325 mg oral tablet) 1 Tablet(s) [...] 11/16/2009 Document Revised: 01/25/2017 Document Reviewed: 04/27/2015 [employer] Interactive Patient Education ?? 2019 [employer]. Emergency Awareness and Preventative Care STROKE is [...] Assistance with quitting is available by contacting 4-844-VRNS-NOW. This is a free resource providing counseling, [...] was given the opportunity to ask questions. Patient/Manager Client Service Name: Patient/Manager Client Service Signature: Relationship to Patient: Clinician/Hospital Manager Client Service Signature: Please Provide a Telephone Number Where You Can Be Reached: Is it Permissible To Leave a Message? Date: Electronically signed by Karthikeyan Bean Conversion Applied Research Director Maverick at 12/16/2022 10:43 AM CDT documented in this encounter Plan of Treatment Upcoming Encounters Date Type Department Care Team (Late st Contact Info) Description 11/03/2025 12:45 PM EST Office Visit [facility] Pulmonology - [address] [place] [address] Ben Barrios MD [address] [place], [place] [address] documented as of this encounter Visit Diagnoses Not on filedocumented in this encounter Care Teams State Wildlife Officer Relationship Specialty Start Date End Date Amie Pena MD [address] [place], [place] [address] [address] PCP - General Family Medicine 10/31/22 04/08/23 Marvel Grayson MD [address] [place] [address] [place] [address] PCP - General Family Medicine 05/17/23 Marvel Grayson [address] [place] [address] Family Practice 04/09/23 documented as of this encounter
--- OUTSIDE RECORDS SUMMARY | 2025-07-22 08:03 | XMS_ITS | Clinical Summary ---
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 04/04/2023 Hyperlipidemia LDL [...] VACCINE 04/03/2025 05/29/2023, , 07/07/2019 MAMMOGRAM 11/07/2025 11/14/2023, 03/0 03/2024, 03/03/2021, Additional history exists LUNG CANCER SCREENING Discontinued 05/16/2023 , 02/26/2020, [...] AM EST Performed at: 01 - [facility] [place] [address], [place] [id number] Maintenance Mechanic [place]: Dhiraj Awad PhD, Phone: [phone] us Iona Craig PA-C LAB BLOOD ORDERABLES Final Result [facility] ([facility]) [address] [place] [address], [place] [phone] [facility] [address] [place] [address], [place] [phone] from Last 3 Months or Most Recently Relevant to Health Maintenance Insurance [address] [id number] [employer] [facility]AGE [facility] Care Teams Licensed Nurse Practitioner Relationship Specialty Start Date End Date Marvel Grayson MD [address] [place] [address] PCP - General Family Medicine 03/14/23
--- OUTSIDE RECORDS SUMMARY | 2025-07-22 08:03 | XMS_ITS | Encounter Summary ---
Author Organization [employer] ([place], [place], [place], [place], [place]) Address [address] [place] [address] Care Team Providers Care Quality Assurance Tech Name Role Phone Amie Pena MD Primary Care Provider [phone] Marvel Grayson MD Primary Care Provider [phone] Encounter Details Date Type Department Care Team (Late st Contact Info) Description 03/10/2019 Transcribed Document [facility] [place] [address] [place] [address] ProviderMik MD [address] [place] [address] Social History Tobacco Use Types Packs/Day [...] Office Visit [facility] Pulmonology - [address] [place] [address] Ben Barrios MD [address] [place] [address] documented as of this encounter Visit Diagnoses Not on filedocumented in this encounter Care Teams Quality Assurance Tech Relationship Specialty Start Date End Date Amie Pena MD [address] [facility] [place] [address] PCP - General Family Medicine 10/31/22 04/08/23 Marvel Grayson MD [address] [place] [address] PCP - General Family Medicine 05/17/23 Marvel Grayson [address] [place] [address] Family Practice 04/09/23 documented as of this encounter
--- OUTSIDE RECORDS SUMMARY | 2025-07-22 08:04 | XMS_ITS | Encounter Summary ---
Author Organization [employer] ([place], [place], [place], [place], [place]) Address [address] [place] [address] Care Team Providers Care Music Industry Internship Name Role Phone Amie Pena MD Primary Care Provider [phone] Marvel Grayson MD Primary Care Provider [phone] Encounter Details Date Type Department Care Team (Late st Contact Info) Description 03/10/2019 Transcribed Document [facility] [place] [address] [place] [address] ProviderMik MD [address] [place] [address] Social History Tobacco Use Types Packs/Day [...] On: 03/10/2019 15:51 EDT by David Rivas, supplier engineer Quick Look Assessment Level of Consciousness : Alert, Awake Affect/Behavior : Appropriate, Calm, Cooperative Orientation : Oriented x 4 Skin Temperature : Warm Skin Description : Normal for ethnicity, [place] David Rivas, Rn - 03/10/2019 15:51 EDT ED General-Functional Assess Information Obtained From : Patient Preferred Communication Mode : Verbal Communication Barrier : None Primary Language : [place] Leone[place] Any Spiritual/Cultural Needs or Requests : No [...] 11/03/2025 12:45 PM EST Office Visit [facility] Pulmonology - [address] [place] [address] Ben Barrios MD [address] [place] [address] documented as of this encounter Visit Diagnoses Not on filedocumented in this encounter Care Teams Music Industry Internship Relationship Specialty Start Date End Date Amie Pena MD [address] [place] [address] [place] [address] PCP - General Family Medicine 10/31/22 04/08/23 Marvel Grayson MD [address] [place] [address] [place] [address] PCP - General Family Medicine 05/17/23 Marvel Grayson [address] [place] [address] Family Practice 04/09/23 documented as of this encounter
--- OUTSIDE RECORDS SUMMARY | 2025-07-22 08:05 | XMS_ITS | Encounter Summary ---
Author Organization [email or web address] ([place], [place], [place], [place], [place]) Address [address] [place] [address] Care Team Providers Care Smoke Jumper Name Role Phone Amie Pena MD Primary Care Provider [phone] Marvel Grayson MD Primary Care Provider [phone] Encounter Details Date Type Department Care Team (Late st Contact Info) Description 09/25/2018 Transcribed Document [facility] [place] [facility] [place] [address] [place] [address] ProviderMik MD [address] [place] [address] Social History Tobacco Use Types Packs/Day Years Used Date Smoking Tobacco: Never Assessed Comments Unknown Sex and Gender Information Value Date Recorded Sex Assigned at Not on file Legal Sex Female 6:09 PM CDT Gender Identity Not on file Sexual Orientation Not on file documented as of this encounter Miscellaneous Notes * Cerner Conversion Note - Historical ProviderMD - 09/25/2018 4:52 PM SMART ENERGY SPECIALIST ED Triage Entered On: 09/25/2018 16:58 EST Performed On: 09/25/2018 16:55 EST by PANCHO SAEED CLINICAL TRAINING SPECIALIST Triage Across the Room Triage Date/Time : 09/25/2018 16:52 EST Chief Complaint : sorethoat, no fever, nausea. PANCHO SAEED RN - 09/25/2018 16:55 EST DCP GENERIC CODE Tracking Acuity : 4 - Non - Urgent Tracking Group : [facility] Sebastián PANCHO SAEED RN - 09/25/2018 [...] PHELPS, PharmD; Reviewed Date: 09/25/2018 16:57 EST Cymbalta Estimated [...] 09/25/2018 16:58:08 EST) Problems(Active) Arthritis (SNOMED CT :5462055 ) Name of Problem: Arthritis ; Recorder: LASHANDA WEBER RN; Confirmation: Confirmed ; Classification: Patient Stated ; Code: [id number] ; Contributor System: Rocket Lawyer ; Last Updated: 02/13/2014 15:57 EDT ; Life Cycle Date: 02/13/2014 ; Life Cycle Status: Active ; Vocabulary: SNOMED CT Asthma (SNOMED CT :[id number] ) Name of Problem: Asthma ; Recorder: PANCHO SAEED RN; Confirmation: Confirmed ; Classification: Medical ; Code: [id number] ; Contributor System: [employer] ; Last Updated: 02/12/2014 19:24 EDT ; Life Cycle Date: 11/28/2013 ; Life Cycle Status: Active ; Vocabulary: SNOMED CT Back pain (SNOMED CT :257260563 ) Name of Problem: Back pain ; Recorder: DENNISE ALVAREZ RN; Confirmation: Confirmed ; Classification: Medical ; Code: [id number] ; Contributor System: PowerChart ; Last Updated: 07/13/2014 14:28 EST ; Life Cycle Date: 07/13/2014 ; Life Cycle Status: Active ; Vocabulary: SNOMED CT Fibromyalgia (SNOMED CT :[id number] ) Name of Problem: Fibromyalgia ; Recorder: PANCHO SAEED RN; Confirmation: Confirmed ; Classification: Medical ; Code: [id number] ; Contributor System: PowerChart ; Last Updated: 02/12/2014 19:24 EDT ; Life Cycle Date: 11/28/2013 ; Life Cycle Status: Active ; Vocabulary: SNOMED CT H/O: hysterectomy (SNOMED CT :599738899 ) Name of Problem: H/O: hysterectomy ; Recorder: HOWARD HU RN; Confirmation: Confirmed ; Classification: Medical ; Code: [id number] ; Contributor System: PowerChart ; Last Updated: [...] Active PTSD (post-traumatic stress disorder) (SNOMED CT :31583024 ) Name of Problem: PTSD (post-traumatic stress disorder) ; Recorder: MARIAN YAO RN; Confirmation: Confirmed ; Classification: Medical ; Code: 32421914 ; Contributor System: PowerChart ; Last Updated: 03/29/2015 21:19 EDT ; Life Cycle Date: 03/29/2015 ; Life Cycle Status: Active ; Vocabulary: SNOMED CT Sciatica (SNOMED CT :19203365 ) Name of Problem: Sciatica ; Recorder: TRISH MCMAHON RN; Confirmation: Confirmed ; Classification: Medical ; Code: 38023883 ; Contributor System: Rocket Lawyer ; Last Updated: 05/24/2015 17:38 EDT ; Life Cycle Date: 05/24/2015 ; Life Cycle Status: Active ; Vocabulary: SNOMED CT Diagnoses(Active) Nausea Date: 09/25/2018 ; Diagnosis Type: Reason For Visit ; Confirmation: Complaint of ; Clinical Dx: Nausea ; Classification: Medical ; Clinical Service: Emergency medicine ; Code: PNED ; Probability: 0 ; Diagnosis Code: [id number] Throat pain - Adult Date: 09/25/2018 ; Diagnosis Type: Reason For Visit ; Confirmation: Complaint of ; Clinical Dx: Throat pain - Adult ; Classification: Medical ; Clinical Service: Emergency medicine ; Code: PNED ; Probability: 0 ; Diagnosis Code: [id number] ED Height and Weight Height Source : Stated Height Entry Format : Tripp Height, Feet : 5 ft(Converted to: 152 cm, 60 Inch) Height, Inches : 1 Inch(Converted to: 0 ft 1 Inch, 2.54 cm) Clinical Height : 154.94 cm Weight Source, ED : Critical estimated dosing weight Weight Entry Format : Tripp Weight, Pounds : 205 lb Clinical Dosing Weight : 93.18 kg Body Surface Area (BSA) : 1.91 m2 Body Mass Index : 38.8 kg/m2 (HI) [place] Body Weight (IBW) : 47.45 kg PANCHO SAEED RN - 09/25/2018 16:55 EST documented in this encounter Plan of Treatment Upcoming Encounters Date Type Department Care Team (Late st Contact Info) Description 11/03/2025 12:45 PM EST Office Visit [facility] Pulmonology - [address] [place] [address] Ben Barrios MD [address] [place] [address] documented as of this encounter Visit Diagnoses Not on filedocumented in this encounter Care Teams Smoke Jumper Relationship Specialty Start Date End Date Amie Pena MD [address] [place] [address] [place] [address] PCP - General Family Medicine 10/31/22 04/08/23 Marvel Grayson MD [address] [place] [address] [place] [address] PCP - General Family Medicine 05/17/23 Marvel Grayson [address], [place] [address] Family Practice 04/09/23 documented as of this encounter
--- OUTSIDE RECORDS SUMMARY | 2025-07-22 08:05 | XMS_ITS | Encounter Summary ---
Author Organization [employer] ([place], [place], [place], [place], [place]) Address [address] [place] [address] Care Team Providers Care Commercial Lease Administrator Name Role Phone Amie Pena MD Primary Care Provider [phone] Marvel Grayson MD Primary Care Provider [phone] Encounter Details Date Type Department Care Team (Late st Contact Info) Description 08/06/2020 Transcribed Document [facility] [place] [facility] [place] [address] ProviderMik MD [address] [place] [address] Social History Tobacco Use Types Packs/Day Years Used Date Smoking Tobacco: Never Assessed Comments Unknown Sex and Gender Information Value Date Recorded Sex Assigned at Not on file Legal Sex Female 6:09 PM CDT Gender Identity Not on file Sexual Orientation Not on file documented as of this encounter Miscellaneous Notes * Cerner Conversion Note - Mik ProviderMD - 08/06/2020 1:53 PM WATER METER READER ED Triage Entered On: 08/06/2020 14:04 EST Performed On: 08/06/2020 14:01 EST by RADHA BROOKS, TRAILERS AND MOTOR HOMES SALESPERSON Triage Across the Room Chief Complaint : pt co back pain and right arm and shoulder pain after fall yesterday Triage Date/Time : 08/06/2020 14:01 EST RADHA BROOKS RN - 08/06/2020 14:01 EST DCP GENERIC CODE Tracking Acuity : 4 - Non - Urgent Tracking Group : [facility] ED Sebastián RADHA BROOKS RN - [...] 08/06/2020 14:04:52 EST) Problems(Active) Arthritis (SNOMED CT :0998973 ) Name of Problem: Arthritis ; Recorder: LASHANDA WEBER RN; Confirmation: Confirmed ; Classification: Patient Stated ; Code: 8455545 ; Contributor System: PowerChart ; Last Updated: 02/13/2014 15:57 EDT ; Life Cycle Date: 02/13/2014 ; Life Cycle Status: Active ; Vocabulary: SNOMED CT Asthma (SNOMED CT :[id number] ) Name of Problem: Asthma ; Recorder: PANCHO SAEED RN; Confirmation: Confirmed ; Classification: Medical ; Code: [id number] ; Contributor System: PowerChart ; Last Updated: 02/12/2014 19:24 EDT ; Life Cycle Date: 11/28/2013 ; Life Cycle Status: Active ; Vocabulary: SNOMED CT Back pain (SNOMED CT :576636865 ) Name of Problem: Back pain ; Recorder: DENNISE ALVAREZ RN; Confirmation: Confirmed ; Classification: Medical ; Code: 755875283 ; Contributor System: PowerChart ; Last Updated: 07/13/2014 14:28 EST ; Life Cycle Date: 07/13/2014 ; Life Cycle Status: Active ; Vocabulary: SNOMED CT COPD (chronic obstructive pulmonary disease) (SNOMED CT :47602857 ) Name of Problem: COPD (chronic obstructive pulmonary disease) ; Recorder: ALLA ZAPATA RN; Confirmation: Confirmed ; Classification: Medical ; Code: 48314094 ; Contributor System: C2FOChart ; Last Updated: 04/11/2019 13:15 EDT ; Life Cycle Date: 04/11/2019 ; Life Cycle Status: Active ; Vocabulary: SNOMED CT COPD exacerbation (SNOMED CT :133281821 ) Name of Problem: COPD exacerbation ; Recorder: YURIY CASEY; Confirmation: Confirmed ; Classification: Medical ; Code: 704691827 ; Contributor System: C2FOChart ; Last Updated: 07/07/2019 11:33 EST ; Life Cycle Status: Active ; Responsible Provider: YURIY CAESY; Vocabulary: SNOMED CT Fibromyalgia (SNOMED CT :[id number] ) Name of Problem: Fibromyalgia ; Recorder: PANCHO SAEED RN; Confirmation: Confirmed ; Classification: Medical ; Code: [id number] ; Contributor System: PowerChart ; Last Updated: 02/12/2014 19:24 EDT ; Life Cycle Date: 11/28/2013 ; Life Cycle Status: Active ; Vocabulary: SNOMED CT H/O: hysterectomy (SNOMED CT :779003065 ) Name of Problem: H/O: hysterectomy ; Recorder: HOWARD HU RN; Confirmation: Confirmed ; Classification: Medical ; Code: 729092881 ; Contributor System: PowerChart ; Last Updated: 12/29/2016 21:54 EDT ; Life Cycle Date: 12/29/2016 ; Life Cycle Status: Active ; Vocabulary: SNOMED CT heart burn (SNOMED CT :99640291 ) Name of Problem: heart burn ; Recorder: MARIAN YAO RN; Confirmation: Confirmed ; Classification: Medical ; Code: 00858477 ; Contributor System: PowerChart ; Last Updated: 01/20/2019 18:21 EDT ; Life Cycle Date: 03/29/2015 ; Life Cycle Status: Active ; Vocabulary: SNOMED CT Irritable bowel syndrome (SNOMED CT :49791895 ) Name of Problem: Irritable bowel syndrome ; Recorder: Yi Hardy Rn; Confirmation: Confirmed ; Classification: Medical ; Code: 55671623 ; Contributor System: PowerChart ; Last Updated: 04/18/2019 6:31 EDT ; Life Cycle Date: 04/18/2019 ; Life Cycle Status: Active ; Vocabulary: SNOMED CT Migraine (SNOMED CT :72594700 ) Name of Problem: Migraine ; Recorder: Yi Hardy Rn; Confirmation: Confirmed ; Classification: Medical ; Code: 70666476 ; Contributor System: PowerChart ; Last Updated: 04/18/2019 6:30 EDT ; Life Cycle Date: 04/18/2019 ; Life Cycle Status: Active ; Vocabulary: SNOMED CT Peripheral neuropathy (SNOMED CT :580827630 ) Name of Problem: Peripheral neuropathy ; Recorder: Yi Hardy Rn; Confirmation: Confirmed ; Classification: Medical ; Code: 781253623 ; Contributor System: PowerChart ; Last Updated: 04/18/2019 6:32 EDT ; Life Cycle Date: 04/18/2019 ; Life Cycle Status: Active ; Vocabulary: SNOMED CT PTSD (post-traumatic stress disorder) (SNOMED CT :02286310 ) Name of Problem: PTSD (post-traumatic stress disorder) ; Recorder: MARIAN YAO RN; Confirmation: Confirmed ; Classification: Medical ; Code: 55775677 ; Contributor System: [employer] ; Last Updated: 03/29/2015 21:19 EDT ; Life Cycle Date: 03/29/2015 ; Life Cycle Status: Active ; Vocabulary: SNOMED CT Sciatica (SNOMED CT :16649224 ) Name of Problem: Sciatica ; Recorder: TRISH MCMAHON RN; Confirmation: Confirmed ; Classification: Medical ; Code: 06461751 ; Contributor System: PowerChart ; Last Updated: 05/24/2015 17:38 EDT ; Life Cycle Date: 05/24/2015 ; Life Cycle Status: Active ; Vocabulary: SNOMED CT Diagnoses(Active) Fall Date: 08/06/2020 ; Diagnosis Type: Reason For Visit ; Confirmation: Complaint of ; Clinical Dx: Fall ; Classification: Medical ; Clinical Service: Emergency medicine ; Code: PNED ; Probability: 0 ; Diagnosis Code: [id number] ED Height and Weight Height Source : Estimated Height Entry Format : [place] Height, Feet : 5 ft(Converted to: 152 cm, 60 Inch) Height, Inches : 11 Inch(Converted to: 0 ft 11 Inch, 27.94 cm) Clinical Height : 180.34 cm Weight Source, ED : Critical estimated dosing weight Weight Entry Format : [place] Weight, Pounds : 200 lb Clinical Dosing Weight : 90.91 kg Body Surface Area (BSA) : 2.11 m2 Body Mass Index : 28 kg/m2 (HI) [place] Body Weight (IBW) : 70.31 kg RADHA BROOKS RN - 08/06/2020 14:01 EST documented in this encounter Plan of Treatment Upcoming Encounters Date Type Department Care Team (Late st Contact Info) Description 11/03/2025 12:45 PM EST Office Visit [facility] Pulmonology - [address] [place] [address] Ben Barrios MD [address] [place] [address] documented as of this encounter Visit Diagnoses Not on filedocumented in this encounter Care Teams Commercial Lease Administrator Relationship Specialty Start Date End Date Amie Pena MD [address] [place] [address] PCP - General Family Medicine 10/31/22 04/08/23 Marvel Grayson MD [address] [place] [address] PCP - General Family Medicine 05/17/23 Marvel Grayson [address] [place] [address] Family Practice 04/09/23 documented as of this encounter
--- OUTSIDE RECORDS SUMMARY | 2025-07-22 08:05 | XMS_ITS | Encounter Summary ---
Author Organization [employer] ([place], [place], [place], [place], [place]) Address [address] [place] [address] Care Team Providers Care Digital Printer Name Role Phone Amie Pena MD Primary Care Provider [phone] Marvel Grayson MD Primary Care Provider [phone] Encounter Details Date Type Department Care Team (Late st Contact Info) Description 09/25/2018 Transcribed Document [facility] [place] [address] [place] [address] ProviderMik MD [address] [place] [address] Social History Tobacco Use Types Packs/Day Years Used Date Smoking Tobacco: Never Assessed Comments Unknown Sex and Gender Information Value Date Recorded Sex Assigned at Not on file Legal Sex Female 6:09 PM CDT Gender Identity Not on file Sexual Orientation Not on file documented as of this encounter Miscellaneous Notes * Cerner Conversion Note - Mik ProviderMD - 09/25/2018 4:52 PM FOSTER CARE THERAPIST ED Assessment Entered On: 09/25/2018 17:09 EST Performed On: 09/25/2018 17:08 EST by Tahira Coffey Rn ED Quick Look Assessment Level of Consciousness : Alert, Awake Affect/Behavior : Appropriate Orientation : Oriented x 4 Skin Temperature : Warm Skin Description : Dry Tahira Coffey Rn - 09/25/2018 17:08 EST ED General-Functional Assess Information Obtained From : Patient Preferred Communication Mode : Verbal Communication Barrier : None Primary Language : Nepali Any Spiritual/Cultural Needs or Requests : No [...] Office Visit [facility] Pulmonology - [address] [place] [address] Ben Barrios MD [address] [place] [address] documented as of this encounter Visit Diagnoses Not on filedocumented in this encounter Care Teams Digital Printer Relationship Specialty Start Date End Date Amei Pena MD [address] [facility] [place] [address] PCP - General Family Medicine 10/31/22 04/08/23 Marvel Grayson MD [address] [place] [address] PCP - General Family Medicine 05/17/23 Marvel Grayson [address] [place] [address] Family Practice 04/09/23 documented as of this encounter
--- OUTSIDE RECORDS SUMMARY | 2025-07-22 08:06 | XMS_ITS | Encounter Summary ---
Author Organization [employer] ([place], [place], [place], [place], [place]) Address [address] [place] [address] Care Team Providers Care Multi Operation Forming Machine Setter Name Role Phone Amie Pena MD Primary Care Provider [phone] Marvel Grayson MD Primary Care Provider [phone] Encounter Details Date Type Department Care Team (Late st Contact Info) Description 08/06/2020 Transcribed Document [facility] [place] [address] [place] [address] ProviderMik MD [address] [place] [address] Social History Tobacco Use Types Packs/Day Years Used Date Smoking Tobacco: Never Assessed Comments Unknown Sex and Gender Information Value Date Recorded Sex Assigned at Not on file Legal Sex Female 6:09 PM CDT Gender Identity Not on file Sexual Orientation Not on file documented as of this encounter Miscellaneous Notes * Cerner Conversion Note - Historical ProviderMD - 08/06/2020 2:48 PM ARTIFICIAL LIMB FITTER Electronically signed by [facility] Conversion Stock Trader Seanner at 12/16/2022 10:48 AM CDT documented in this encounter Plan of Treatment Upcoming Encounters Date Type Department Care Team (Late st Contact Info) Description 11/03/2025 12:45 PM EST Office Visit [facility] Pulmonology - [address] [place] [address] Ben Barrios MD [address] [place] [address] documented as of this encounter Visit Diagnoses Not on filedocumented in this encounter Care Teams Multi Operation Forming Machine Setter Relationship Specialty Start Date End Date Amie Pena MD [address] [facility] [place] [address] PCP - General Family Medicine 10/31/22 04/08/23 Marvel Grayson MD [address] [place] [address] PCP - General Family Medicine 05/17/23 Marvel Grayson [address] [place] [address] Family Practice 04/09/23 documented as of this encounter
--- OUTSIDE RECORDS SUMMARY | 2025-07-22 08:06 | XMS_ITS | Encounter Summary ---
Author Organization [employer] ([place], [place], [place], [place], [place]) Address [address] [place] [address] Care Team Providers Care Black Top Machine Operator Name Role Phone Amie Pena MD Primary Care Provider [phone] Marvel Grayson MD Primary Care Provider [phone] Encounter Details Date Type Department Care Team (Late st Contact Info) Description 08/06/2020 Transcribed Document [facility] [place] [facility] [place] [address] ProviderMik MD [address] [place] [address] Social History Tobacco Use Types Packs/Day Years Used Date Smoking Tobacco: Never Assessed Comments Unknown Sex and Gender Information Value Date Recorded Sex Assigned at Not on file Legal Sex Female 6:09 PM CDT Gender Identity Not on file Sexual Orientation Not on file documented as of this encounter Miscellaneous Notes * Cerner Conversion Note - Historical ProviderMD - 08/06/2020 6:13 PM BUSINESS DIVISION CHAIR CR Spine Lumbar 2 or 3 Vws [...] Description 11/03/2025 12:45 PM EST Office Visit [facility] Pulmonology - [address] [place] [address] Ben Barrios MD [address] [place] [address] documented as of this encounter Visit Diagnoses Not on filedocumented in this encounter Care Teams Black Top Machine Operator Relationship Specialty Start Date End Date Amie Pena MD [address] [place] [address] [place] [address] PCP - General Family Medicine 10/31/22 04/08/23 Marvel Grayson MD [address] [place] [address] [place] [address] PCP - General Family Medicine 05/17/23 Marvel Grayson [address] [place] [address] Family Practice 04/09/23 documented as of this encounter
--- OUTSIDE RECORDS SUMMARY | 2025-07-22 08:06 | XMS_ITS | Encounter Summary ---
Author Organization [employer] ([place], [place], [place], [place], [place]) Address [address] [place] [address] Care Team Providers Care Wildland Fire Fighter Specialist Name Role Phone Amie Pena MD Primary Care Provider [phone] Marvel Grayson MD Primary Care Provider [phone] Encounter Details Date Type Department Care Team (Late st Contact Info) Description 09/25/2018 Transcribed Document [facility] [place] [address] [place] [address] ProviderMik MD [address] [place] [address] Social History Tobacco Use Types Packs/Day Years Used Date Smoking Tobacco: Never Assessed Comments Unknown Sex and Gender Information Value Date Recorded Sex Assigned at Not on file Legal Sex Female 6:09 PM CDT Gender Identity Not on file Sexual Orientation Not on file documented as of this encounter Miscellaneous Notes * Cerner Conversion Note - Mik ProviderMD - 09/25/2018 5:36 PM PROJECT STRUCTURAL ENGINEER ED Discharge Entered On: 09/25/2018 17:36 EST [...] Yes Number of Prescriptions Given : 1 Thaira Coffey, Rn - 09/25/2018 17:36 EST Electronically signed by [facility] Conversion Firearms Inspector Cerner at 12/16/2022 10:39 AM CDT documented in this encounter Plan of Treatment Upcoming Encounters Date Type Department Care Team (Late st Contact Info) Description 11/03/2025 12:45 PM EST Office Visit [facility] Pulmonology - [address] [place] [address] Ben Barrios MD [address] [place] [address] documented as of this encounter Visit Diagnoses Not on filedocumented in this encounter Care Teams Wildland Fire Fighter Specialist Relationship Specialty Start Date End Date Amie Pena MD [address] [place], [place] [address] [place] [address] PCP - General Family Medicine 10/31/22 04/08/23 Marvel Grayson MD [address] [place] [address] [place] [address] PCP - General Family Medicine 05/17/23 Marvel Grayson [address] [place] [address] Family Practice 04/09/23 documented as of this encounter
--- OUTSIDE RECORDS SUMMARY | 2025-07-22 08:07 | XMS_ITS | Encounter Summary ---
Author Organization [employer] ([place], [place], [place], [place], [place]) Address [address] [place] [address] Care Team Providers Care Finishing Department Supervisor Name Role Phone Amie Pena MD Primary Care Provider [phone] Marvel Grayson MD Primary Care Provider [phone] Encounter Details Date Type Department Care Team (Late st Contact Info) Description 09/25/2018 Transcribed Document [facility] [place] Family [place] [facility] [place] [address] ProviderMik MD [address] [place] [address] Social History Tobacco Use Types Packs/Day Years Used Date Smoking Tobacco: Never Assessed Comments Unknown Sex and Gender Information Value Date Recorded Sex Assigned at Not on file Legal Sex Female 6:09 PM CDT Gender Identity Not on file Sexual Orientation Not on file documented as of this encounter Miscellaneous Notes * Cerner Conversion Note - Historical ProviderMD - 09/25/2018 5:36 PM SERVICE CENTER REPRESENTATIVE [place] [address] [place] [address] Patient Information Name: PRATIK SHABAZZ Age: 47 Years Date of : 1970 Arrival Time: 09/25/2018 16:52:00 Diagnosis Acute bacterial tonsillitis Primary Care Physician: COLLEEN SHEPARD [facility] Provider Information Primary Provider: PAMELA IRELAND Secondary Provider: PRATIK SHABAZZ has been given the following list of patient education materials, prescriptions and follow-up instructions: Follow-up Instructions: With: Address: When: COLLEEN SHEPARD [address] [facility], [address] [place] [phone] Business (1) Within 2 to 3 days [...] 05/30/2006 Document Revised: 01/25/2017 Document Reviewed: 02/06/2014 [employer] Patient Education ? 2017 [employer] Allergies: Vraylar; Cymbalta; Ultram; Haldol; penicillin; doxycycline; codeine Medication Information: Prescription Display azithromycin (azithromycin 500 mg oral tablet) 1 Tab, Oral, Tab, Daily, # 5 Tab, 0 Refill(s), Pharmacy: [facility] [id number] Laboratory or Other Results This Visit (last charted value for your 09/25/2018 visit) Microbiology 09/25/18 17:06:05 Rapid Strep Test: See Result Medication Comment: Procedures: Laboratory Orders Name Status .STREP A CONF Ordered RAPID STREP Completed Radiology Orders No radiology orders were placed. Cardiology Orders No cardiology orders were placed. This statement is to verify that PRATIK SHABAZZ was seen at [facility] on ,09/25/2018 17:36:53. This is [...] along the way. As a healthcare provider, [facility] recommends that you stop smoking. Assistance with quitting is available by contacting 5-205-OPDG-NOW. This is a free resource providing counseling, [...] Electronic Communications Privacy Act 18 U.S.C. ???Sections 7365-4608,?? and contain information intended for the specified [...] Be sure to sign up for the [facility] patient portal, which gives you 26/03 access to your medical information ??? including these discharge instructions ??? using your computer, smartphone, or tablet. Just go to PrivacyProtector to get started. Questions? Call . Acknowledgment [...] Description 11/03/2025 12:45 PM EST Office Visit [facility] Pulmonology - [address] [place] [id number] Ben Barrios MD [address] [place] [address] documented as of this encounter Visit Diagnoses Not on filedocumented in this encounter Care Teams Finishing Department Supervisor Relationship Specialty Start Date End Date Amie Pena MD [address] [place] [address] PCP - General Family Medicine 10/31/22 04/08/23 Marvel Grayson MD [address] [place] [address] PCP - General Family Medicine 05/17/23 Marvel Grayson [address] [place] [address] Family Practice 04/09/23 documented as of this encounter
--- OUTSIDE RECORDS SUMMARY | 2025-07-22 08:07 | XMS_ITS | Encounter Summary ---
Author Organization [employer] ([place], [place], [place], [place], [place]) Address [address] [place] [address] Care Team Providers Care Textile Bag Sewer Name Role Phone Amie Pena MD Primary Care Provider [phone] Marvel Grayson MD Primary Care Provider [phone] Encounter Details Date Type Department Care Team (Late st Contact Info) Description 09/25/2018 Transcribed Document [facility] [place] [address] [place] [address] ProviderMik MD [address] [place] [address] Social History Tobacco Use Types Packs/Day Years Used Date Smoking Tobacco: Never Assessed Comments Unknown Sex and Gender Information Value Date Recorded Sex Assigned at Not on file Legal Sex Female 6:09 PM CDT Gender Identity Not on file Sexual Orientation Not on file documented as of this encounter Miscellaneous Notes * Cerner Conversion Note - Historical ProviderMD - 09/25/2018 5:29 PM PULP MILL SUPERVISOR Electronically signed by [facility] Conversion Building Components Designer Seanner at 12/16/2022 10:41 AM CDT documented in this encounter Plan of Treatment Upcoming Encounters Date Type Department Care Team (Late st Contact Info) Description 11/03/2025 12:45 PM EST Office Visit [facility] Pulmonology - [address] [place] [address] Ben Barrios MD [address] [place] [address] documented as of this encounter Visit Diagnoses Not on filedocumented in this encounter Care Teams Textile Bag Sewer Relationship Specialty Start Date End Date Amie Pena MD [address] [place] [address] PCP - General Family Medicine 10/31/22 04/08/23 Marvel Grayson MD [address] [place] [address] PCP - General Family Medicine 05/17/23 Marvel Grayson [address] [place] [address] Family Practice 04/09/23 documented as of this encounter
--- OUTSIDE RECORDS SUMMARY | 2025-07-22 08:07 | XMS_ITS | Encounter Summary ---
Author Organization [employer] ([place], [place], [place], [place], [place]) Address [address] [place] [address] Care Team Providers Care Airdox Fitter Name Role Phone Amie Pena MD Primary Care Provider [phone] Marvel Grayson MD Primary Care Provider [phone] Encounter Details Date Type Department Care Team (Late st Contact Info) Description 08/06/2020 Transcribed Document [facility] [place] [address] ProviderMik MD [address] [place] [address] Social History Tobacco Use Types Packs/Day Years Used Date Smoking Tobacco: Never Assessed Comments Unknown Sex and Gender Information Value Date Recorded Sex Assigned at Not on file Legal Sex Female 6:09 PM CDT Gender Identity Not on file Sexual Orientation Not on file documented as of this encounter Miscellaneous Notes * Cerner Conversion Note - Historical ProviderMD - 08/06/2020 1:53 PM MASTIC SPRAYER [place] Suicide Severity Rating Scale (C-SSRS) Entered On: 08/06/2020 14:06 EST Performed On: 08/06/2020 14:06 EST by RADHA BROOKS RN [place] Suicide Severity Rating Scale (C-SSRS) CSSRS Past Month Wish to be : No CSSRS Past Month Suicidal Thoughts : No CSSRS Lifetime Suicide Behavior : No Suicide Severity Rating Score : 0 Suicide Severity Rating : No Additional Care Required at this time RADHA BROOKS RN - 08/06/2020 14:06 EST Electronically signed by [facility] Conversion Neurophysiologist Cerner at 12/16/2022 10:43 AM CDT documented in this encounter Plan of Treatment Upcoming Encounters Date Type Department Care Team (Late st Contact Info) Description 11/03/2025 12:45 PM EST Office Visit [facility] Pulmonology - [address] [place] [address] Ben Barrios MD [address] [place] [address] documented as of this encounter Visit Diagnoses Not on filedocumented in this encounter Care Teams Airdox Fitter Relationship Specialty Start Date End Date Amie Pena MD [address] [place] [address] [place] [address] PCP - General Family Medicine 10/31/22 04/08/23 Marvel Grayson MD [address] [place] [address] [place] [address] PCP - General Family Medicine 05/17/23 Marvel Grayson [address] [place] [address] Family Practice 04/09/23 documented as of this encounter
--- OUTSIDE RECORDS SUMMARY | 2025-07-22 08:08 | XMS_ITS | Encounter Summary ---
Author Organization [employer] ([place], [place], [place], [place], [place]) Address [address] [place] [address] Care Team Providers Care Assisted Sales Representative Name Role Phone Amie Pena MD Primary Care Provider [phone] Marvel Grayson MD Primary Care Provider [phone] Encounter Details Date Type Department Care Team (Late st Contact Info) Description 08/06/2020 Transcribed Document [facility] [place] [address] ProviderMik MD [address] [place] [address] Social History Tobacco Use Types Packs/Day Years Used Date Smoking Tobacco: Never Assessed Comments Unknown Sex and Gender Information Value Date Recorded Sex Assigned at Not on file Legal Sex Female 6:09 PM CDT Gender Identity Not on file Sexual Orientation Not on file documented as of this encounter Miscellaneous Notes * Cerner Conversion Note - Mik ProviderMD - 08/06/2020 1:53 PM SHEET METAL ERECTOR ED Assessment Entered On: 08/06/2020 14:05 EST Performed On: 08/06/2020 14:01 EST by RADHA BROOKS, GEOTECHNICIAN Quick Look Assessment Level of Consciousness : Alert Affect/Behavior : Calm, Cooperative Orientation : Oriented x 4 Skin Temperature : Warm Skin Description : Dry RADHA BROOKS RN - 08/06/2020 14:01 EST ED General-Functional Assess Information Obtained From : Patient Preferred Communication Mode : Verbal Communication Barrier : None Primary Language : South [place]ese Any Spiritual/Cultural Needs or Requests : No [...] - 08/06/2020 14:01 EST Electronically signed by Karthikeyan Bean Conversion Compliance Program Manager Cerner at 12/16/2022 10:43 AM CDT documented in this encounter Plan of Treatment Upcoming Encounters Date Type Department Care Team (Late st Contact Info) Description 11/03/2025 12:45 PM EST Office Visit [facility] Pulmonology - [address] [place] [address] Ben Barrios MD [address] [place] [address] documented as of this encounter Visit Diagnoses Not on filedocumented in this encounter Care Teams Assisted Sales Representative Relationship Specialty Start Date End Date Amie Pena MD [address] [place] [address] [place] [address] PCP - General Family Medicine 10/31/22 04/08/23 Marvel Grayson MD [address] [place] [address] [place] [address] PCP - General Family Medicine 05/17/23 Marvel Grayson [address] [place] [address] Family Practice 04/09/23 documented as of this encounter
--- OUTSIDE RECORDS SUMMARY | 2025-07-22 08:08 | XMS_ITS | Encounter Summary ---
Author Organization [employer] ([place], [place], [place], [place], [place]) Address [address] [place] [address] Care Team Providers Care Medical Records Tech Name Role Phone Amie Pena MD Primary Care Provider [phone] Marvel Grayson MD Primary Care Provider [phone] Encounter Details Date Type Department Care Team (Late st Contact Info) Description 09/25/2018 Transcribed Document [facility] [place] [facility] [address] ProviderMik MD [address] [place] [address] Social History Tobacco Use Types Packs/Day Years Used Date Smoking Tobacco: Never Assessed Comments Unknown Sex and Gender Information Value Date Recorded Sex Assigned at Not on file Legal Sex Female 6:09 PM CDT Gender Identity Not on file Sexual Orientation Not on file documented as of this encounter Miscellaneous Notes * Cerner Conversion Note - Mik ProviderMD - 09/25/2018 5:36 PM RIM FIRE PRIMING OPERATOR [facility] [address] [place] [address] PERSON INFORMATION Name PRATIK SHABAZZ Age 47 Years 1970 Sex Female Language Urdu PCP COLLEEN SHEPARD [facility] Marital Status Med Service Emergency Medicine Acct# Arrival 09/25/2018 16:52:00 Visit Reason Nausea; Throat pain - Adult; PT STATES POSS STREP Acuity 4 - Non - Urgent LOS 000 00:44 Depart Date: 09/25/18 05:35 PM [facility] [phone] Comment: PROVIDER INFORMATION Provider Role Assigned Unassigned Tahira Coffey, basic combatant swimmer Nurse 09/25/2018 16:58:53 PAMELA IRELAND PA ED [...] Daily, # 5 Tab, 0 Refill(s), Pharmacy: [facility] [id number] Comment: DISCHARGE INFORMATION Discharge Disposition: Home Discharge Location: PATIENT EDUCATION INFORMATION Instructions: Tonsillitis Follow up: With: Address: When: COLLEEN SHEPARD [address] [place] [address], [address] [place] [address] [facility] () Within 2 to 3 days Comment: Electronically signed by Karthikeyan Bean Conversion Oxyacetylene Torch Operator Cerner at 12/16/2022 10:44 AM CDT documented in this encounter Plan of Treatment Upcoming Encounters Date Type Department Care Team (Late st Contact Info) Description 11/03/2025 12:45 PM EST Office Visit [facility] Pulmonology - [address] [place] [address] Ben Barrios MD [address] [place] [address] documented as of this encounter Visit Diagnoses Not on filedocumented in this encounter Care Teams Medical Records Tech Relationship Specialty Start Date End Date Amie Pena MD [address] [place] [address] PCP - General Family Medicine 10/31/22 04/08/23 Marvel Grayson MD [address] [facility] [address] PCP - General Family Medicine 05/17/23 Marvel Grayson [address] [place] [address] Family Practice 04/09/23 documented as of this encounter
--- OUTSIDE RECORDS SUMMARY | 2025-07-22 08:09 | XMS_ITS | Encounter Summary ---
Author Organization [employer] ([place], [place], [place], [place], [place]) Address [address] [place] [address] Care Team Providers Care Library Historian Name Role Phone Amie Pena MD Primary Care Provider [phone] Marvel Grayson MD Primary Care Provider [phone] Encounter Details Date Type Department Care Team (Late st Contact Info) Description 11/22/2018 Transcribed Document [facility] [place] [address] [place] [address] ProviderMik MD [address] [place] [address] Social History Tobacco Use Types Packs/Day [...] Office Visit [facility] Pulmonology - [address] [place] [address] eBn Barrios MD [address] [place] [address] documented as of this encounter Visit Diagnoses Not on filedocumented in this encounter Care Teams Library Historian Relationship Specialty Start Date End Date Amie Pena MD [address] [facility] [place] [address] PCP - General Family Medicine 10/31/22 04/08/23 Marvel Grayson MD [address] [place] [address] PCP - General Family Medicine 05/17/23 Marvel Grayson [address] [place] [address] Family Practice 04/09/23 documented as of this encounter
--- OUTSIDE RECORDS SUMMARY | 2025-07-22 08:09 | XMS_ITS | Encounter Summary ---
Author Organization [employer] ([place], [place], [place], [place], [place]) Address [address] [place] [address] Care Team Providers Care Bow String Maker Name Role Phone Amie Pena MD Primary Care Provider [phone] Marvel Grayson MD Primary Care Provider [phone] Encounter Details Date Type Department Care Team (Late st Contact Info) Description 08/06/2020 Transcribed Document [facility] [place] [address] [place] [address] ProviderMik MD [address] [place] [address] Social History Tobacco Use Types Packs/Day [...] Mik Thorne MD - 08/06/2020 2:59 PM CHARGEBACK ANALYST ED Discharge Entered On: 08/06/2020 15:00 EST Performed On: 08/06/2020 14:59 EST by RADHA BROOKS, project administrator Process Patient Disposition : Discharge Personal Belongings [...] - 08/06/2020 14:59 EST Electronically signed by [facility] Conversion Charger Operator Helper Cerner at 12/16/2022 10:44 AM CDT documented in this encounter Plan of Treatment Upcoming Encounters Date Type Department Care Team (Late st Contact Info) Description 11/03/2025 12:45 PM EST Office Visit [facility] Pulmonology - [address] [place] [address] Ben Barrios MD [address] [place] [address] documented as of this encounter Visit Diagnoses Not on filedocumented in this encounter Care Teams Bow String Maker Relationship Specialty Start Date End Date Amie Pena MD [address] [place] [address] [place] [address] PCP - General Family Medicine 10/31/22 04/08/23 Marvel Grayson MD [address] [place] [address] PCP - General Family Medicine 05/17/23 Marvel Grayson [address] [place] [address] Family Practice 04/09/23 documented as of this encounter
--- OUTSIDE RECORDS SUMMARY | 2025-07-22 08:09 | XMS_ITS | Encounter Summary ---
Author Organization [employer] ([place], [place], [place], [place], [place]) Address [address] [place] [address] Care Team Providers Care Cement Production Plant Operator Name Role Phone Amie Pena MD Primary Care Provider [phone] Marvel Grayson MD Primary Care Provider [phone] Encounter Details Date Type Department Care Team (Late st Contact Info) Description 11/22/2018 Transcribed Document [facility] [place] [facility] [place] [address] ProviderMik MD [address] [place] [address] Social History Tobacco Use Types Packs/Day [...] Historical ProviderMD - 11/22/2018 2:04 PM CDT [place] [address] [place] [address] PERSON INFORMATION Name PRATIK SHABAZZ Age 48 Years 1970 Sex Female Language Guatemalan PCP PHY, NOT LISTED Marital Status Med Service Emergency Medicine Acct# Arrival 11/22/2018 12:43:00 Visit Reason Back pain; SCIATICA OUT AGAIN Acuity 4 - Non - Urgent LOS 000 01:21 Depart Date: 11/22/18 02:03 PM Address: [place] [address] Comment: PROVIDER INFORMATION Provider Role Assigned Unassigned BRAYDEN MEDEIROS PA-EM[facility] ED Physician 11/22/2018 13:15:23 CATHIE ECHAVARRIA, SHOW OPERATIONS SUPERVISOR Nurse 11/22/2018 13:17:57 DIAGNOSIS Elevated blood pressure; [...] TID, # 20 Tab, 0 Refill(s), [facility]: [facility] [id number] diclofenac (diclofenac potassium 50 mg oral tablet) 1 Tab, Oral, Tab, TID, PRN as needed for pain, # 20 Tab, 0 Refill(s), [facility]acy: [facility] [id number] methylPREDNISolone (Medrol Dosepak 4 mg oral tablet) 1 Packet, Oral, Tab, Daily, as directed on package labeling, # 21 Tab, 0 Refill(s), Pharmacy: [facility] [id number] Comment: DISCHARGE INFORMATION Discharge Disposition: Home Discharge Location: PATIENT EDUCATION INFORMATION Instructions: Sciatica Follow up: With: Address: When: [facility] [address] [facility], [address] [address] Business (1) Within 2 to 3 days With: Address: When: Patient Resource Center Within As needed Comments: Patient Has a primary care physician with [facility] For assistance in the future with finding a new primary care physician please contact the Patient Resource Center at [phone]. Comment: documented in this encounter Plan of Treatment Upcoming Encounters Date Type Department Care Team (Late st Contact Info) Description 11/03/2025 12:45 PM EST Office Visit [facility] Pulmonology - [address] [place] [address] Ben Barrios MD [address] [place] [address] documented as of this encounter Visit Diagnoses Not on filedocumented in this encounter Care Teams Cement Production Plant Operator Relationship Specialty Start Date End Date Amie Pena MD [address] [place] [address] [place] [address] PCP - General Family Medicine 10/31/22 04/08/23 Marvel Grayson MD [address] [place] [address] [place] [address] PCP - General Family Medicine 05/17/23 Marvel Grayson [address] [place], [place] [address] Family Practice 04/09/23 documented as of this encounter
--- OUTSIDE RECORDS SUMMARY | 2025-07-22 08:10 | XMS_ITS | Encounter Summary ---
Author Organization [employer] ([place], [place], [place], [place], [place]) Address [address] [place] [address] Care Team Providers Care Perinatology Physician Name Role Phone Amie Pena MD Primary Care Provider [phone] Marvel Grayson MD Primary Care Provider [phone] Encounter Details Date Type Department Care Team (Late st Contact Info) Description 11/28/[address] [facility] [place] Family [place] [address] [place] [address] ProviderMik MD [address] [place] [address] Social History Tobacco Use Types Packs/Day [...] [facility] Pulmonology - [address] [place] [address] Ben Barrios MD [address] [place] [address] documented as of this encounter Visit Diagnoses Not on filedocumented in this encounter Care Teams Perinatology Physician Relationship Specialty Start Date End Date Amie Pena MD [address] [facility] [place] [address] PCP - General Family Medicine 10/31/22 04/08/23 Marvel Grayson MD [address] [place] [address] PCP - General Family Medicine 05/17/23 Marvel Grayson [address] [place] [address] Family Practice 04/09/23 documented as of this encounter
--- OUTSIDE RECORDS SUMMARY | 2025-07-22 08:10 | XMS_ITS | Encounter Summary ---
Author Organization [employer] ([place], [place], [place], [place], [place]) Address [address] [place] [address] Care Team Providers Care Felt Hanger Name Role Phone Amie Pena MD Primary Care Provider [phone] Marvel Grayson MD Primary Care Provider [phone] Encounter Details Date Type Department Care Team (Late st Contact Info) Description 11/28/2018 Transcribed Document [facility] [place] [address] ProviderMik MD [address] [place] [address] Social History Tobacco Use Types Packs/Day [...] Historical ProviderMD - 11/28/2018 3:01 PM CDT [place] [address] [place] [address] PERSON INFORMATION Name PRATKI SHABAZZ Age 48 Years 1970 Sex Female Language Cambodian PCP PHY, UNKNOWN Marital Status Med Service Emergency Medicine Acct# Arrival 11/28/2018 13:04:00 Visit Reason GRIJALVA - Headache; HEADACHE Acuity 3 - Urgent LOS 000 01:57 Depart Date: 11/28/18 03:01 PM Address: [place] [id number] Comment: PROVIDER INFORMATION Provider Role Assigned Unassigned EARL STACK, NURSE PRACT-EMERGENCY MEDICINE ED Physician 11/28/2018 13:29:51 Melonie Castaneda, MEMORIAL COUNSELOR Nurse 11/28/2018 13:43:13 DIAGNOSIS Generalized headache PHYS [...] spasm, # 30 Tab, 0 Refill(s), Pharmacy: [facility] [id number] Comment: DISCHARGE INFORMATION Discharge Disposition: Home Discharge Location: PATIENT EDUCATION INFORMATION Instructions: General Headache Without Cause Follow up: With: Address: When: LUBNA DANIELS [address] [place] [address], [address] [place], [place] [address] [facility] (8) Within 2 to 3 days Comments: Please continue to monitor symptoms. If migraines continue follow up with dr. daniels. Return to ER as needed. Comment: documented in this encounter Plan of Treatment Upcoming Encounters Date Type Department Care Team (Late st Contact Info) Description 11/03/2025 12:45 PM EST Office Visit [facility] Pulmonology - [address] [place] [address] Ben Barrios MD [address] [place], [place] [address] documented as of this encounter Visit Diagnoses Not on filedocumented in this encounter Care Teams Felt Hanger Relationship Specialty Start Date End Date Amie Pena MD [address] [place] [address] [place] [address] PCP - General Family Medicine 10/31/22 04/08/23 Marvel Grayson MD [address] [place] [address] [place] [address] PCP - General Family Medicine 05/17/23 Marvel Grayson [address] [place], [place] [address] Family Practice 04/09/23 documented as of this encounter
--- OUTSIDE RECORDS SUMMARY | 2025-07-22 08:10 | XMS_ITS | Encounter Summary ---
Author Organization [employer] ([place], [place], [place], [place], [place]) Address [address] [place] [address] Care Team Providers Care Mechanical Design Engineer Products Name Role Phone Amie Pena MD Primary Care Provider [phone] Marvel Grayson MD Primary Care Provider [phone] Encounter Details Date Type Department Care Team (Late st Contact Info) Description 11/22/2018 Transcribed Document [facility] [place] [address] [place] [address] ProviderMik MD [address] [place] [address] Social History Tobacco Use Types Packs/Day [...] On: 11/22/2018 14:02 EDT by CATHIE ECHAVARRIA RN Discharge Process Patient Disposition : Discharge [...] - 11/22/2018 14:02 EDT Electronically signed by [facility], [facility] Conversion Vice President Of Contracts Cerner at 12/16/2022 10:43 AM CDT documented in this encounter Plan of Treatment Upcoming Encounters Date Type Department Care Team (Late st Contact Info) Description 11/03/2025 12:45 PM EST Office Visit [facility] Pulmonology - [address] [place] [address] Ben Barrios MD [address] [place] [address] documented as of this encounter Visit Diagnoses Not on filedocumented in this encounter Care Teams Mechanical Design Engineer Products Relationship Specialty Start Date End Date Amie Pena MD [address] [place] [address] [place] [address] PCP - General Family Medicine 10/31/22 04/08/23 Marvel Grayson MD [address] [place] [address] PCP - General Family Medicine 05/17/23 Marvel Grayson [address] [place] [address] Family Practice 04/09/23 documented as of this encounter
--- OUTSIDE RECORDS SUMMARY | 2025-07-22 08:10 | XMS_ITS | Encounter Summary ---
Author Organization [employer] ([place], [place], [place], [place], [place]) Address [address] [place] [address] Care Team Providers Care Reconnaissance Crewmember Name Role Phone Amie Pena MD Primary Care Provider [phone] Marvel Grayson MD Primary Care Provider [phone] Encounter Details Date Type Department Care Team (Late st Contact Info) Description 11/28/2018 Transcribed Document [facility] [place] [address] [place] [address] ProviderMik MD [address] [place] [address] Social History Tobacco Use Types Packs/Day [...] On: 11/28/2018 13:19 EDT by CATHIE ECHAVARRIA PICKING CREW SUPERVISOR Triage Across the Room Triage Date/Time : 11/28/2018 13:19 EDT Chief Complaint : PT states, I have a migraine , started getting floaters in eyes last week w/o pain but pain started last night, resp even and unlabored CATHIE ECHAVARRIA RN - 11/28/2018 13:19 EDT DCP GENERIC CODE Tracking Acuity : 3 - Urgent Tracking Group : [facility] ED East CATHIE ECHAVARRIA RN - 11/28/2018 [...] Updated By: ALBERTO PHELPS, Xena; Reviewed Date: 11/28/2018 13:22 EDT Cymbalta Estimated [...] 11/28/2018 13:22:54 EDT) Problems(Active) Arthritis (SNOMED CT :8722211 ) Name of Problem: Arthritis ; Recorder: LASHANDA WEBER RN; Confirmation: Confirmed ; Classification: Patient Stated ; Code: [id number] ; Contributor System: [employer] ; Last Updated: 02/13/2014 15:57 EDT ; Life Cycle Date: 02/13/2014 ; Life Cycle Status: Active ; Vocabulary: SNOMED CT Asthma (SNOMED CT :[id number] ) Name of Problem: Asthma ; Recorder: PANCHO SAEED RN; Confirmation: Confirmed ; Classification: Medical ; Code: [id number] ; Contributor System: [employer] ; Last Updated: 02/12/2014 19:24 EDT ; Life Cycle Date: 11/28/2013 ; Life Cycle Status: Active ; Vocabulary: SNOMED CT Back pain (SNOMED CT :244076365 ) Name of Problem: Back pain ; Recorder: DENNISE ALVAREZ RN; Confirmation: Confirmed ; Classification: Medical ; Code: [id number] ; Contributor System: [employer] ; Last Updated: 07/13/2014 14:28 EST ; Life Cycle Date: 07/13/2014 ; Life Cycle Status: Active ; Vocabulary: SNOMED CT Fibromyalgia (SNOMED CT :[id number] ) Name of Problem: Fibromyalgia ; Recorder: PANCHO SAEED RN; Confirmation: Confirmed ; Classification: Medical ; Code: [id number] ; Contributor System: [employer] ; Last Updated: 02/12/2014 19:24 EDT ; Life Cycle Date: 11/28/2013 ; Life Cycle Status: Active ; Vocabulary: SNOMED CT H/O: hysterectomy (SNOMED CT :438370665 ) Name of Problem: H/O: hysterectomy ; Recorder: HOWARD HU RN; Confirmation: Confirmed ; Classification: Medical ; Code: [id number] ; Contributor System: [employer] ; Last Updated: [...] Active PTSD (post-traumatic stress disorder) (SNOMED CT :42868612 ) Name of Problem: PTSD (post-traumatic stress disorder) ; Recorder: MARIAN YAO RN; Confirmation: Confirmed ; Classification: Medical ; Code: 04207728 ; Contributor System: [employer] ; Last Updated: 03/29/2015 21:19 EDT ; Life Cycle Date: 03/29/2015 ; Life Cycle Status: Active ; Vocabulary: SNOMED CT Sciatica (SNOMED CT :48597957 ) Name of Problem: Sciatica ; Recorder: TRISH MCMAHON RN; Confirmation: Confirmed ; Classification: Medical ; Code: 52311879 ; Contributor System: [employer] ; Last Updated: 05/24/2015 17:38 EDT ; Life Cycle Date: 05/24/2015 ; Life Cycle Status: Active ; Vocabulary: SNOMED CT Diagnoses(Active) GRIJALVA - Headache Date: 11/28/2018 ; Diagnosis Type: Reason For Visit ; Confirmation: Complaint of ; Clinical Dx: GRIJALVA - Headache ; Classification: Medical ; Clinical Service: Emergency medicine ; Code: PNED ; Probability: 0 ; Diagnosis Code: [id number] ED Height and Weight Height Source : Stated Height Entry Format : [place] Height, Feet : 5 ft(Converted to: 152 cm, 60 Inch) Height, Inches : 10 Inch(Converted to: 0 ft 10 Inch, 25.40 cm) Clinical Height : 177.8 cm Weight Source, ED : Standing scale Weight Entry Format : [place] Weight, Pounds : 203 lb Clinical Dosing Weight : 92.27 kg Body Surface Area (BSA) : 2.1 m2 Body Mass Index : 29.2 kg/m2 (HI) [place] Body Weight (IBW) : 68.02 kg CATHIE [...] [facility] Pulmonology - [address] [place] [address] Ben Barrios MD [address] [place] [address] documented as of this encounter Visit Diagnoses Not on filedocumented in this encounter Care Teams Reconnaissance Crewmember Relationship Specialty Start Date End Date Amie Pena MD [address] [place] [address] [place] [address] PCP - General Family Medicine 10/31/22 04/08/23 Marvel Grayson MD [address] [place] [address] [place] [address] PCP - General Family Medicine 05/17/23 Marvel Grayson [address] [place], [place] [address] Family Practice 04/09/23 documented as of this encounter
--- OUTSIDE RECORDS SUMMARY | 2025-07-22 08:10 | XMS_ITS | Encounter Summary ---
Author Organization [employer] ([place], [place], [place], [place], [place]) Address [address] [address] Care Team Providers Care Arresting Gear Operator Name Role Phone Amie Pena MD Primary Care Provider [phone] Marvel Grayson MD Primary Care Provider [phone] Encounter Details Date Type Department Care Team (Late st Contact Info) Description 11/22/2018 Transcribed Document [facility] [place] [facility] [place] [address] ProviderMik MD [address] [place] [address] Social History Tobacco Use Types Packs/Day [...] Historical ProviderMD - 11/22/2018 2:04 PM CDT [address] [place] [address] Patient Information Name: PRATIK SHABAZZ Age: 48 Years Date of : 1970 Arrival Time: 11/22/2018 12:43:00 Diagnosis Elevated blood pressure; Sciatica Primary Care Physician: ELENO, NOT LISTED Provider Information Primary Provider: BRAYDEN MEDEIROS Secondary Provider: PRATIK SHABAZZ has been given the following list of patient education materials, prescriptions and follow-up instructions: Follow-up Instructions: With: Address: When: VU [facility]YS [address] [facility], [address] [place] [address] Business (1) Within 2 to 3 days With: Address: When: Patient Resource Center Within As needed Comments: Patient Has a primary care physician with [facility]. For assistance in the future with finding a new primary care physician please contact the Patient Resource Center at [phone]. Patient Education Materials: Sciatica Sciatica is pain, [...] these instructions at home: Medicines ??? Take spil-ihl-bpqexlq and prescription medicines only as told by [...] 08/14/2002 Document Revised: 01/23/2017 Document Reviewed: 04/28/2016 [employer] Patient Education ? 2017 [employer]. Allergies: Vraylar; Cymbalta; Ultram; Haldol; penicillin; doxycycline; codeine Medication Information: Prescription Display baclofen (baclofen 10 mg oral tablet) 1 Tab, Oral, Tab, TID, # 20 Tab, 0 Refill(s), Pharmacy: [id number] diclofenac (diclofenac potassium 50 mg oral tablet) 1 Tab, Oral, Tab, TID, PRN as needed for pain, # 20 Tab, 0 Refill(s), Pharmacy: [id number] methylPREDNISolone (Medrol Dosepak 4 mg oral tablet) 1 Packet, Oral, Tab, Daily, as directed on package labeling, # 21 Tab, 0 Refill(s), Pharmacy: [id number] Laboratory or Other Results This Visit (last charted value for your 11/22/2018 visit) No Laboratory or Other Results This Visit Medication Comment: Procedures: Laboratory Orders No laboratory orders were placed. Radiology Orders No radiology orders were placed. Cardiology Orders No cardiology orders were placed. This statement is to verify that PRATIK SHABAZZ was seen at [facility] Emergency Department on ,11/22/2018 14:04:05. This [...] Assistance with quitting is available by contacting 3-311-JENL-NOW. This is a free resource providing counseling, [...] Electronic Communications Privacy Act 18 U.S.C. ???Sections 1728-9484,?? and contain information intended for the specified [...] computer, smartphone, or tablet. Just go to [employer] to get started. Questions? Call . Acknowledgment [...] Office Visit [facility] Pulmonology - [address] [place] [address] Ben Barrios MD [address] [place] [address] documented as of this encounter Visit Diagnoses Not on filedocumented in this encounter Care Teams Arresting Gear Operator Relationship Specialty Start Date End Date Amie Pena MD [address] [place] [address] [place] [address] PCP - General Family Medicine 10/31/22 04/08/23 Marvel Grayson MD [address] [place] [address] [place] [address] PCP - General Family Medicine 05/17/23 Marvel Grayson [address] [place] [address] Family Practice 04/09/23 documented as of this encounter
--- OUTSIDE RECORDS SUMMARY | 2025-07-22 08:11 | XMS_ITS | Encounter Summary ---
Author Organization [employer] ([place], [place], [place], [place], [place]) Address [address] [place] [address] Care Team Providers Care Railway Shunter Name Role Phone Amie Pena MD Primary Care Provider [phone] Marvel Grayson MD Primary Care Provider [phone] Encounter Details Date Type Department Care Team (Late st Contact Info) Description 11/22/2018 Transcribed Document [facility] [place] [address] [place] [address] ProviderMik MD [address] [place] [address] Social History Tobacco Use Types Packs/Day [...] Performed On: 11/22/2018 12:57 EDT by Kimmie Avila DRUM STENCILER Triage Across the Room Triage Date/Time : 11/22/2018 12:57 EDT Chief Complaint : pt c/o lower back pain, left hip pain, going down leg, pt HX of chronic back pain, with therapy, took muscle relaxer yesterday with no relief, Kimmie Avila RN - 11/22/2018 12:57 EDT DCP GENERIC CODE Tracking Acuity : 4 - Non - Urgent Tracking Group : [facility] ED East Kimmie Avila RN - 11/22/2018 [...] 11/22/2018 13:00:05 EDT) Problems(Active) Arthritis (SNOMED CT :6814268 ) Name of Problem: Arthritis ; Recorder: LASHANDA WEBER RN; Confirmation: Confirmed ; Classification: Patient Stated ; Code: 6098632 ; Contributor System: [employer] ; Last Updated: 02/13/2014 15:57 EDT ; Life Cycle Date: 02/13/2014 ; Life Cycle Status: Active ; Vocabulary: SNOMED CT Asthma (SNOMED CT :[id number] ) Name of Problem: Asthma ; Recorder: PANCHO SAEED RN; Confirmation: Confirmed ; Classification: Medical ; Code: [id number] ; Contributor System: [employer] ; Last Updated: 02/12/2014 19:24 EDT ; Life Cycle Date: 11/28/2013 ; Life Cycle Status: Active ; Vocabulary: SNOMED CT Back pain (SNOMED CT :932876427 ) Name of Problem: Back pain ; Recorder: DENNISE ALVAREZ RN; Confirmation: Confirmed ; Classification: Medical ; Code: 595667881 ; Contributor System: Power[employer] ; Last Updated: 07/13/2014 14:28 EST ; Life Cycle Date: 07/13/2014 ; Life Cycle Status: Active ; Vocabulary: SNOMED CT Fibromyalgia (SNOMED CT :[id number] ) Name of Problem: Fibromyalgia ; Recorder: PANCHO SAEED RN; Confirmation: Confirmed ; Classification: Medical ; Code: [id number] ; Contributor System: Power[employer] ; Last Updated: 02/12/2014 19:24 EDT ; Life Cycle Date: 11/28/2013 ; Life Cycle Status: Active ; Vocabulary: SNOMED CT H/O: hysterectomy (SNOMED CT :994153434 ) Name of Problem: H/O: hysterectomy ; Recorder: HOWARD HU RN; Confirmation: Confirmed ; Classification: Medical ; Code: 311759981 ; Contributor System: Power[employer] ; Last Updated: [...] Active PTSD (post-traumatic stress disorder) (SNOMED CT :78431579 ) Name of Problem: PTSD (post-traumatic stress disorder) ; Recorder: MARIAN YAO RN; Confirmation: Confirmed ; Classification: Medical ; Code: 35900602 ; Contributor System: [employer] ; Last Updated: 03/29/2015 21:19 EDT ; Life Cycle Date: 03/29/2015 ; Life Cycle Status: Active ; Vocabulary: SNOMED CT Sciatica (SNOMED CT :13562938 ) Name of Problem: Sciatica ; Recorder: TRISH MCMAHON RN; Confirmation: Confirmed ; Classification: Medical ; Code: 96690974 ; Contributor System: [employer] ; Last Updated: 05/24/2015 17:38 EDT ; Life Cycle Date: 05/24/2015 ; Life Cycle Status: Active ; Vocabulary: SNOMED CT Diagnoses(Active) Back pain Date: 11/22/2018 ; Diagnosis Type: Reason For Visit ; Confirmation: Complaint of ; Clinical Dx: Back pain ; Classification: Medical ; Clinical Service: Emergency medicine ; Code: PNED ; Probability: 0 ; Diagnosis Code: [id number] ED Height and Weight Height Source : Stated Height Entry Format : [place] Height, Feet : 5 ft(Converted to: 152 cm, 60 Inch) Height, Inches : 9 Inch(Converted to: 0 ft 9 Inch, 22.86 cm) Clinical Height : 175.26 cm Weight Source, ED : Critical estimated dosing weight Weight Entry Format : [place] Weight, Pounds : 203 lb Clinical Dosing Weight : 92.27 kg Body Surface Area (BSA) : 2.08 m2 Body Mass Index : 30 kg/m2 (HI) [place] Body Weight (IBW) : 65.73 kg Kimmie [...] Visit [facility] Pulmonology - [address] [place] [address] Ben Barrios MD [address] [place], [place] [address] documented as of this encounter Visit Diagnoses Not on filedocumented in this encounter Care Teams Railway Shunter Relationship Specialty Start Date End Date Amie Pena MD [address] [place], [place] [address] [address] PCP - General Family Medicine 10/31/22 04/08/23 Marvel Grayson MD [address] [place] [address] PCP - General Family Medicine 05/17/23 Marvel Grayson [address] [place] [address] Family Practice 04/09/23 documented as of this encounter
--- OUTSIDE RECORDS SUMMARY | 2025-07-22 08:12 | XMS_ITS | Encounter Summary ---
Author Organization [employer] ([place], [place], [place], [place], [place]) Address [address] [place] [address] Care Team Providers Care Plant Ecologist Name Role Phone Amie Pena MD Primary Care Provider [phone] Marvel Grayson MD Primary Care Provider [phone] Encounter Details Date Type Department Care Team (Late st Contact Info) Description 11/28/2018 Transcribed Document [facility] [place] Family [place] [address] [place] [address] ProviderMik MD [address] [place] [address] Social History Tobacco Use Types Packs/Day [...] assessment Pain Scale Used : 0-10 Scale Castaneda, Melonie, RN - 11/28/2018 14:46 EDT Pain Scale Intensity : 4 Melonie Castaneda RN - 11/28/2018 14:46 EDT Image 4 - Images currently included in the form version of this document have not been included in the text rendition version of the form. Electronically signed by [place], [facility] Conversion Set Up Mechanic Stamping Machines Cerner at 12/16/2022 10:37 AM CDT documented in this encounter Plan of Treatment Upcoming Encounters Date Type Department Care Team (Late st Contact Info) Description 11/03/2025 12:45 PM EST Office Visit [facility] Pulmonology - [address] [place] [address] Ben Barrios MD [address] [place] [address] documented as of this encounter Visit Diagnoses Not on filedocumented in this encounter Care Teams Plant Ecologist Relationship Specialty Start Date End Date Amie Pena MD [address] [place] [address] [place], [place] [address] PCP - General Family Medicine 10/31/22 04/08/23 Marvel Grayson MD [address] [place] [address] [place] [address] PCP - General Family Medicine 05/17/23 Marvel Grayson [address] [place] [address] Family Practice 04/09/23 documented as of this encounter
--- OUTSIDE RECORDS SUMMARY | 2025-07-22 08:12 | XMS_ITS | Encounter Summary ---
Author Organization [employer] ([place], [place], [place], [place], [place]) Address [address] [place] [address] Care Team Providers Care Freelance Recruiter Name Role Phone Amie Pena MD Primary Care Provider [phone] Marvel Grayson MD Primary Care Provider [phone] Encounter Details Date Type Department Care Team (Late st Contact Info) Description 11/28/2018 Transcribed Document [facility] [place] [address] [place] [address] ProviderMik MD [address] [place] [address] Social History Tobacco Use Types Packs/Day [...] - 11/28/2018 15:00 EDT Electronically signed by [place] [facility] Conversion Crusher Assembler Cerner at 12/16/2022 10:40 AM CDT documented in this encounter Plan of Treatment Upcoming Encounters Date Type Department Care Team (Late st Contact Info) Description 11/03/2025 12:45 PM EST Office Visit [facility] Pulmonology - [address] [place] [address] Ben Barrios MD [address] [place] [address] documented as of this encounter Visit Diagnoses Not on filedocumented in this encounter Care Teams Freelance Recruiter Relationship Specialty Start Date End Date Amie Pena MD [address] [place] [address] [place] [address] PCP - General Family Medicine 10/31/22 04/08/23 Marvel Grayson MD [address] [place] [address] PCP - General Family Medicine 05/17/23 Marvel Grayson [address] [place] [address] Family Practice 04/09/23 documented as of this encounter
--- OUTSIDE RECORDS SUMMARY | 2025-07-22 08:12 | XMS_ITS | Encounter Summary ---
Author Organization [employer] ([place], [place], [place], [place], [place]) Address [address] [place] [address] Care Team Providers Care Jetting Machine Operator Name Role Phone Amie Pena MD Primary Care Provider [phone] Marvel Grayson MD Primary Care Provider [phone] Encounter Details Date Type Department Care Team (Late st Contact Info) Description 11/28/2018 Transcribed Document [facility] [facility] [address] ProviderMik MD [address] [place] [address] Social History Tobacco Use Types Packs/Day [...] Historical ProviderMD - 11/28/2018 3:01 PM CDT [address] [place] [address] Patient Information Name: PRATIK SHABAZZ Age: 48 Years Date of : 1970 Arrival Time: 11/28/2018 13:04:00 Diagnosis Generalized headache Primary Care Physician: FRANCISCO JOHANSEN Provider Information Primary Provider: EARL STACK, NURSE PRACT-EMERGENCY MEDICINE Secondary Provider: PRATIK SHABAZZ has been given the following list of patient education materials, prescriptions and follow-up instructions: Follow-up Instructions: With: Address: When: LUBNA ADAMASHLEY [address] [facility] [address], [address] [place], [place] [id number] Business (1) Within 2 to 3 days [...] with your condition: Managing pain ??? Take [id number] and prescription medicines only as told by [...] 08/20/2006 Document Revised: 01/25/2017 Document Reviewed: 12/13/2015 [employer] Interactive Patient Education ? 2017 [employer] Allergies: Vraylar; Cymbalta; Ultram; Haldol; penicillin; doxycycline; codeine Medication Information: Prescription Display cyclobenzaprine (cyclobenzaprine 10 mg oral tablet) 1 Tab, Oral, Tab, TID, PRN as needed for spasm, # 30 Tab, 0 Refill(s), Pharmacy: [facility] [id number] Laboratory or Other Results This Visit (last charted value for your 11/28/2018 visit) No Laboratory or Other Results This Visit Medication Comment: Procedures: Laboratory Orders No laboratory orders were placed. Radiology Orders No radiology orders were placed. Cardiology Orders No cardiology orders were placed. This statement is to verify that PRATIK SHABAZZ was seen at [facility] Emergency Department on ,11/28/2018 15:01:11. This is [...] Assistance with quitting is available by contacting 1-322-JIIV-NOW. This is a free resource providing counseling, [...] Electronic Communications Privacy Act 18 U.S.C. ???Sections 5403-3959,?? and contain information intended for the specified [...] sure to sign up for the My [facility] patient portal, which gives you 26/03 access to your medical information ??? including these discharge instructions ??? using your computer, smartphone, or tablet. Just go to [employer] to get started. Questions? Call . Acknowledgment [...] Yes____ No____ Nurse Providing Instructions: Emergency Physician: Electronically signed by [place], Karthikeyan Conversion Water Rights Specialist Cerner at 12/16/2022 10:49 AM CDT documented in this encounter Plan of Treatment Upcoming Encounters Date Type Department Care Team (Late st Contact Info) Description 11/03/2025 12:45 PM EST Office Visit [facility] Pulmonology - [address] [place] [id number] Ben Barrios MD [address] [place] [address] documented as of this encounter Visit Diagnoses Not on filedocumented in this encounter Care Teams Jetting Machine Operator Relationship Specialty Start Date End Date Amie Pena MD [address] [place] [address] [place] [address] PCP - General Family Medicine 10/31/22 04/08/23 Marvel Grayson MD [address] [place] [address] [place] [address] PCP - General Family Medicine 05/17/23 Marvel Grayson [address] [place] [address] Family Practice 04/09/23 documented as of this encounter
--- OUTSIDE RECORDS SUMMARY | 2025-07-22 08:13 | XMS_ITS | Encounter Summary ---
Author Organization [employer] ([place], [place], [place], [place], [place]) Address [address] [place] [address] Care Team Providers Care Vacuum Cleaner Repair Person Name Role Phone Amie Pena MD Primary Care Provider [phone] Marvel Grayson MD Primary Care Provider [phone] Encounter Details Date Type Department Care Team (Late st Contact Info) Description 11/28/2018 Transcribed Document [facility] Radiology [address] [place] [address] Provider, Karthikeyan Houser MD Social History Tobacco Use Types Packs/Day Years Used Date Smoking Tobacco: Never Assessed Comments Unknown Sex and Gender Information Value Date Recorded Sex Assigned at Not on file Legal Sex Female 6:09 PM CDT Gender Identity Not on file Sexual Orientation Not on file documented as of this encounter Miscellaneous Notes * Cerner Conversion Note - [facility] Mik Thorne MD - 11/28/2018 2:04 PM EDT [...] Communication Barrier : None Primary Language : Chinese Any Spiritual/Cultural Needs or Requests : No [...] Melonie Castaneda RN - 11/28/2018 14:05 EDT documented in this encounter Plan of Treatment Upcoming Encounters Date Type Department Care Team (Late st Contact Info) Description 11/03/2025 12:45 PM EST Office Visit [facility] Pulmonology - [address] [place] [id number] Ben Barrios MD [address] [place] [address] documented as of this encounter Visit Diagnoses Not on filedocumented in this encounter Care Teams Vacuum Cleaner Repair Person Relationship Specialty Start Date End Date Amie Pena MD [address] [place] [address] [place] [address] PCP - General Family Medicine 10/31/22 04/08/23 Marvel Grayson MD [address] [place] [address] [place] [address] PCP - General Family Medicine 05/17/23 Marvel Grayson [address] [place] [address] Family Practice 04/09/23 documented as of this encounter
--- OUTSIDE RECORDS SUMMARY | 2025-07-22 08:13 | XMS_ITS | Encounter Summary ---
Author Organization [employer] ([place], [place], [place], [place], [place]) Address [address] [place] [address] Care Team Providers Care Technical Lead Name Role Phone Amie ePna MD Primary Care Provider [phone] Marvel Grayson MD Primary Care Provider [phone] Encounter Details Date Type Department Care Team (Late st Contact Info) Description 11/28/2018 Transcribed Document [facility] [place] [place] Family Medicine [address] [place] [address] ProviderMik MD [address] [place] [address] Social History Tobacco Use Types Packs/Day [...] at 40 Years. Removal of ovarian cyst ([id number]). I&D to left finger., Reviewed as documented [...] EDT Height Source Stated Height Entry Format [place] Height/Length, CANADIAN (ft) 5 ft Height/Length CANADIAN 10 Inch CLINICALHEIGHT 177.8 cm [place]er Body Weight 68.02 kg Weight Source, ED Standing scale Weight Entry Format [place] Weight Spanish lb 203 lb CLINICALWEIGHT 92.27 kg Body [...] ED Adult Triage: ED Clinical Reconciliation: ED event planning intern: Pepcid: 20 mg, IV Push, 1-Time Saline [...] 14:53 EDT, Discharge to: Home. Prescriptions: Prescription Sales Negotiator Pharmacy: cyclobenzaprine 10 mg oral tablet (Prescribe): [...] [facility] Pulmonology - [address] [place] [phone] Ben Barrios MD [address] [place] [address] documented as of this encounter Visit Diagnoses Not on filedocumented in this encounter Care Teams Technical Lead Relationship Specialty Start Date End Date Amie Pena MD [facility] [place] [address] PCP - General Family Medicine 10/31/22 04/08/23 Marvel Grayson MD [address] [place] [address] PCP - General Family Medicine 05/17/23 Marvel Grayson [address] [id number] Family Practice 04/09/23 documented as of this encounter
--- NOTE | 2025-07-22 08:51 | MM_ITS ---
FINAL REPORT CLINICAL HISTORY: CLIP PLACEMENT FINDINGS: MAMMOGRAM LEFT TECHNIQUE: Standard digital 2-D views DENSITY: There are scattered areas of fibroglandular density FINDINGS: Post biopsy marker clip is noted to be in satisfactory position. Postbiopsy changes are noted. IMPRESSION: Biopsy marker clip in good position ASSESSMENT: A post-procedure mammogram is used to confirm the position and deployment of a breast tissue marker after a biopsy RECOMMENDATION: Given benign findings of dense stromal fibrosis, six-month mammographic and sonographic follow-up is recommended as part of normal benign postbiopsy follow-up Authenticated and ERN
== END 2025-07-22 23:59 | disposition home or self-care (01) ==
LOC: RAD 07:40
PROVIDERS: PCP Internal Medicine; Visit Provider Internal Medicine
DX: N60.32 Fibrosclerosis of left breast (principal); N63.21 Unspecified lump in the left breast, upper outer quadrant; R92.322 Mammographic fibroglandular density, left breast
CPT/HCPCS: 19083; 77065; A4648; C2618

== ENCOUNTER 2025-08-06 11:23 | Outpatient (CLI) | payer MEDICARE, MEDICAID, SELFPAY ==
--- NOTE | 2025-08-06 11:27 | XR_ITS ---
FINAL REPORT CLINICAL HISTORY: DDD, worsening pain COMPARISON: None FINDINGS: LUMBAR SPINE: AP and lateral views of the lumbar spine were obtained. There is no prior exam for comparison. There is evidence of a prior posterior fusion at the L5-S1 level. There is no acute fracture or malalignment. Vertebral body height is preserved. There is moderate loss of disc space height at the L5-S1 level. Mild anterior osteophytes are noted in the lumbar spine, particularly at L1 and L2. No acute paraspinal abnormality. IMPRESSION: Evidence of a prior posterior fusion at the L5-S1 level. There is moderate loss of disc space height at the L5-S1 level, and mild degenerative osteophytes particularly at the L1 and L2 levels. Reviewed, Interpreted and Dictated by Momo Gill MD Transcribed by Nery Man Authenticated and [facility]
--- OUTSIDE RECORDS SUMMARY | 2025-08-06 11:50 | XMS_ITS | Encounter Summary ---
Author Organization [employer] ([place], [place], [place], [place], [place]) Address [address] [place] [address] Care Team Providers Care Straight Knife Cutter Machine Name Role Phone Amie Pena MD Primary Care Provider [phone] Marvel Grayson MD Primary Care Provider [phone] Encounter Details Date Type Department Care Team (Late st Contact Info) Description 07/15/2019 Transcribed Document [facility] [place] [place] Family Medicine [address] [place] [address] ProviderMik MD [address] [place] [address] Social History Tobacco Use Types Packs/Day Years Used Date Smoking Tobacco: Never Assessed Comments Unknown Sex and Gender Information Value Date Recorded Sex Assigned at Not on file Legal Sex Female 6:09 PM CDT Gender Identity Not on file Sexual Orientation Not on file documented as of this encounter Miscellaneous Notes * [employer] Conversion Note - Mik ProviderMD - 07/15/2019 12:33 PM PC TECHNICIAN UM Authorization Entered On: 07/15/2019 12:33 EST Performed On: 07/15/2019 12:33 EST by FREDERIC PHAM RN-Utilization Review Primary Insurance Authorization Authorization and Policy Numbers : Insurance 1 Health Plan: [employer] Policy Number: [id number] Authorization Number: Insurance Primary Name : [employer] Authorization Status-Primary : Awaiting callback Reference Number-Primary : [id number] Authorized Service Begin Date-Primary : 07/05/2019 EDT Authorization Comments-Primary : [facility] auth still pending per website Historical Authorization Comments-Primary : Comment 1: C auth still pending per website (FREDERIC PHAM RN-Utilization Review 07/11/2019 12:51) Comment 2: Per DM, initial clinicals requested despite clinicals having been attached to auth on [facility] Portal. Clinicals faxed via [employer]. (SHAAN RICHTER Rn-Utilization Review 07/10/2019 15:26) Comment 3: C auth still pending per website (FREDERIC PHAM RN-Utilization Review 07/10/2019 10:04) Comment 4: C auth still pending per website (FREDERIC PHAM RN-Utilization Review 07/09/2019 09:54) Comment 5: [facility] auth still pending per website (FREDERIC PHAM RN-Utilization Review 07/08/2019 13:30) Comment 6: C auth still pending per website (FREDERIC PHAM RN-Utilization Review 07/07/2019 13:48) Comment 7: Clinicals submitted via [facility] portal. (SHAAN RICHTER Rn-Utilization Review 07/06/2019 09:45) Comment 8: Reference number retrieved from [facility] portal. (SHAAN RICHTER Rn-Utilization Review 07/06/2019 09:37) FREDERIC PHAM RN-Utilization Review - 07/15/2019 12:33 EST documented in this encounter Plan of Treatment Upcoming Encounters Date Type Department Care Team (Late st Contact Info) Description 11/03/2025 12:45 PM EST Office Visit [facility] Pulmonology - [address] [place] [address] Ben Barrios MD [address] [place] [address] documented as of this encounter Visit Diagnoses Not on filedocumented in this encounter Care Teams Straight Knife Cutter Machine Relationship Specialty Start Date End Date Amie Pena MD [address] [place] [address] [place] [address] PCP - General Family Medicine 10/31/22 04/08/23 Marvel Grayson MD [address] [place] [address] [place] [address] PCP - General Family Medicine 05/17/23 Marvel Grayson [facility] [place] [address] Family Practice 04/09/23 documented as of this encounter
--- OUTSIDE RECORDS SUMMARY | 2025-08-06 11:50 | XMS_ITS | Encounter Summary ---
Author Organization [employer] ([place], [place], [place], [place], [place]) Address [address] [place] [address] Care Team Providers Care Property Loss Insurance Claim Adjuster Name Role Phone Amie Pena MD Primary Care Provider [phone] Marvel Grayson MD Primary Care Provider [phone] Encounter Details Date Type Department Care Team (Late st Contact Info) Description 10/29/2019 Transcribed Document [facility] [place] Family Medicine [address] [place] [address] ProviderMik MD [address] [place] [address] Social History Tobacco Use Types Packs/Day Years Used Date Smoking Tobacco: Never Assessed Comments Unknown Sex and Gender Information Value Date Recorded Sex Assigned at Not on file Legal Sex Female 6:09 PM CDT Gender Identity Not on file Sexual Orientation Not on file documented as of this encounter Miscellaneous Notes * [employer] Conversion Note - Historical ProviderMD - 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 Conversion Advertisement Compositor Cerner at 12/16/2022 10:37 AM CDT documented in this encounter Plan of Treatment Upcoming Encounters Date Type Department Care Team (Late st Contact Info) Description 11/03/2025 12:45 PM EST Office Visit [facility] Pulmonology - [address] [place] [address] Ben Barrios MD [address] [place] [address] documented as of this encounter Visit Diagnoses Not on filedocumented in this encounter Care Teams Property Loss Insurance Claim Adjuster Relationship Specialty Start Date End Date Amie Pena MD [address] [facility] [place] [address] PCP - General Family Medicine 10/31/22 04/08/23 Marvel Grayson MD [address] [place] [address] PCP - General Family Medicine 05/17/23 Marvel Grayson [address] [place] [address] Family Practice 04/09/23 documented as of this encounter
--- OUTSIDE RECORDS SUMMARY | 2025-08-06 11:50 | XMS_ITS | Clinical Summary ---
Author Organization [facility] Address [address] [place] [address] Phone Care Team Providers Care Lead Investigator Name Role Phone Becky CORONADO, Amie Primary Care Physician [phone] Conditions or Problems Problem Name Problem Code [...] mass index [BMI] 27.0-27.9, adult Bronchitis, acute 05881224 (SNOMED CT) 05/06 Inactive 05/06 Rea Saavedra APRN Acute bronchitis Herpes simplex, oral 088826357 (SNOMED CT) 05/06 Active 05/06 Rea Saavedra APRN Oral herpes simplex infection Body mass index (BMI) 27.0-27.9; adult Z68.27 (ICD-10-CM ) 12/26 Removed 12/30 Amie Pena MD Body mass index [BMI] 27.0-27.9, adult Body mass index (BMI) 26.0-26.9; adult Z68.26 (ICD-10-CM ) 11/01 Correction 11/01 Amie Pena MD Body mass index [BMI] 26.0-26.9, adult Tobacco User 378393610 (SNOMED CT) 12/26 Active 12/26 Amie Pena [...] index [BMI] 28.0-28.9, adult Hx of STEMI 951987347 (SNOMED CT) 10/24 Active 10/26 Charissa Breen APRN History of artificial heart valve S/P STENT Health maintenance 52297846 (SNOMED CT) Resolved Charissa Breen APRN History AND physical examination Health maintenance 16462642 (SNOMED CT) Removed Amie Pena MD History [...] Z71.3 (ICD-10-CM ) 05/13 Inactive 05/14 Nora Borreor APRN PMHNP Dietary counseling and surveillance Body [...] mass index [BMI] 28.0-28.9, adult Vitamin deficiency 64564274 (SNOMED CT) 04/08 Active 04/08 Nora Borrero APRN PMHNP Vitamin deficiency Body mass index (BMI) 28.0-28.9; adult Z68.28 (ICD-10-CM ) 02/08 Removed 02/09 Nora Feck RESEARCH FOOD TECHNOLOGIST, PMHNP Body mass index [BMI] 28.0-28.9, adult Body mass index (BMI) 29.0-29.9; adult Z68.29 (ICD-10-CM ) 10/29 Correction 10/30 Nora Feck RESEARCH FOOD TECHNOLOGIST, PMHNP Body mass index [BMI] 29.0-29.9, adult High risk medication management 789987535 (SNOMED CT) 02/08 Active 02/08 Nora Feck RESEARCH FOOD TECHNOLOGIST, PMHNP High risk drug monitoring Anxiety disorder 340893565 (SNOMED CT) 02/08 Active 02/08 Nora Feck RESEARCH FOOD TECHNOLOGIST, PMHNP Anxiety disorder PTSD 73622112 (SNOMED CT) 02/08 Active 02/08 Nora Feck RESEARCH FOOD TECHNOLOGIST, PMHNP Post-traumatic stress disorder Bipolar 1 disorder, mixed 03031857 (SNOMED CT) 02/08 Active 02/08 Nora Feck RESEARCH FOOD TECHNOLOGIST, PMHNP Mixed bipolar I disorder Axillary mass 072414628 (SNOMED CT) 01/24 Active 01/25 Amie Pena MD Mass of axilla Palpitation s, recurrent 55301541 (SNOMED CT) 10/29 Resolved 10/29 Charissa Breen APRN Palpitations Cough 59974987 (SNOMED CT) 09/18 Resolved 09/18 Charissa Breen APRN Cough Acquired absence of both cervix and uterus 673394671 (SNOMED CT) 03/02 Resolved 02/05 Charissa Breen APRN Total hysterectomy Health maintenance 45228484 (SNOMED CT) 02/05 Resolved 02/05 Charissa Breen APRN History AND physical examination Body mass index (BMI) 29.0-29.9; adult Z68.29 (ICD-10-CM ) 10/29 Removed 10/30 Amie Pena MD Body mass index [BMI] 29.0-29.9, adult Subcutaneou s mass of back 998164407 (SNOMED CT) 10/29 Active 10/30 Amie Pena MD Mass of skin Palpitation s, recurrent 94679137 (SNOMED CT) 10/29 Active 10/30 Amie Pena MD Palpitations Family hx of coronary arterioscle rosis (CAD) 892157966 (SNOMED CT) 10/29 Active 10/29 Amie Pena MD Family history of coronary arterioscleros is Cancer, family hx 908315925 (SNOMED CT) 10/29 Active 10/29 Amie Pena MD Family history of malignant neoplasm Palpitation s, recurrent 00603826 (SNOMED CT) 10/29 Removed 10/29 Amie Pena MD Palpitations Body mass index (BMI) 29.0-29.9; adult Z68.29 (ICD-10-CM ) 09/30 Correction 09/30 Amie Pena MD Body mass index [BMI] 29.0-29.9, adult Joint pain, hand 705514537 (SNOMED CT) 10/29 Active 10/29 Amie Pena MD Pain of joint of hand Localized swelling on back 273305982 (SNOMED CT) 10/29 Active 10/29 Amie Pena MD Finding of back Body mass index (BMI) 29.0-29.9; adult Z68.29 (ICD-10-CM ) 09/30 Removed 09/30 Amie Pena MD Body mass index [BMI] 29.0-29.9, adult Body mass index (BMI) 29.0-29.9; adult Z68.29 (ICD-10-CM ) 05/03 Correction 05/03 Amie Pena MD Body mass index [BMI] 29.0-29.9, adult Cough 49891906 (SNOMED CT) 09/18 Removed 09/18 Amie Pena MD Cough Body mass index (BMI) 29.0-29.9; adult Z68.29 (ICD-10-CM ) 05/03 Removed 05/03 Amie Pena MD Body mass index [BMI] 29.0-29.9, adult Body mass index (BMI) 28.0-28.9; adult Z68.28 (ICD-10-CM ) 02/05 Correction 02/05 Amie Pena MD Body mass index [BMI] 28.0-28.9, adult Chronic pain 82733486 (SNOMED CT) 05/03 Active 05/03 Amie Pena MD Chronic pain 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 05/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 Pena 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 754606763 (SNOMED CT) 03/02 Active 02/05 Amie Pena MD Total hysterectomy Acquired absence of both cervix and uterus 364937803 (SNOMED CT) 03/02 Removed 02/05 Amie Pena MD Total hysterectomy Body mass index (BMI) 28.0-28.9; adult Z68.28 (ICD-10-CM ) 02/05 Removed 02/05 Amie Pena MD Body mass index [BMI] 28.0-28.9, adult Health maintenance 38261204 (SNOMED CT) 02/05 Removed 02/05 Amie Pena MD History AND physical examination Exposure to hepatitis C 737357673 (SNOMED CT) 02/05 Active 02/05 Amie Pena MD Exposure to Hepatitis C virus COPD 64475413 (SNOMED CT) 02/05 Active 02/05 Amie Pena MD Chronic obstructive pulmonary disease Asthma 293256567 (SNOMED CT) 02/05 Active 02/05 Amie Pena MD Asthma Medications Medication Instructions Start Date Stop Date Generic Name NDC Provider CEPHALEXIN 500 MG CAPS Take 1 capsule by mouth three times a day cephalexin 16831392169 Amie Pena MD ACYCLOVIR 5 % CREA Apply 1 a small amount to affected area five times a day for four days. START SOON POSSIBLE AFTER ONSET OF COLD SORES. acyclovir 36064206891 Rea Saavedra APRN ZITHROMAX Z-KISHAN 250 MG TABS Take 2 tablet by mouth once a day as directed 2 tablets for 1 day then 1 tablet once a day for 4 days. TAKE WITH FOOD. azithromycin 53486435134 Rea Saavedra APRN TIZANIDINE HCL 2 MG TABS TAKE 1 TABLET BY MOUTH THREE TIMES A DAY NEEDED FOR MUSCLE PAIN. 02/13 tizanidine 11902543254 Mickie Florence APRN TIZANIDINE HCL 2 MG TABS TAKE 1 TABLET BY MOUTH 3 TIMES A DAY NEEDED FOR MUSCLE PAIN tizanidine 36811393601 Amie Pena MD TIZANIDINE HCL 2 MG TABS TAKE 1 TABLET BY MOUTH THREE TIMES A DAY NEEDED FOR MUSCLE PAIN. tizanidine 56742741432 Amie Pena MD ATIVAN 0.5 MG TABS Take half or 1 tablet twice a day as needed for anxiety. lorazepam 85932052785 Amie Pena MD ISOSORBIDE MONONITRATE ER 60 MG [id number] Take 1 tablet by mouth every morning isosorbide mononitrate 76800856056 Rea Saavedra APRN ALBUTEROL SULFATE HFA 108 (90 Base) MCG/ACT AERS Inhale 2-4 puff every four hours as needed albuterol sulfate 16446382292 Amie Pena MD TRAZODONE HCL 50 MG TABS 0.5-2 tablet by mouth at bedtime as directed : take approx 30min prior to bedtime as needed 11/01 trazodone 95868806973 Nora Borrero APRN, PMHNP LINZESS 145 MCG CAPS Take 1 capsule by mouth once a day 11/01 linaclotide 78496396690 Amie Pena MD SHINGRIX 50 MCG/0.5ML SUSR Inject 1/2 ml intramuscularly single dose 11/01 varicella-zoster ge-as01b (pf) 66718206741 Amie Pena MD LATUDA 40 MG TABS Take 1 tablet by mouth every night with meals take with at least 250 calories 11/01 lurasidone 75051179674 Nora Feck RESEARCH FOOD TECHNOLOGIST, PMHNP ALBUTEROL SULFATE HFA 108 (90 Base) MCG/ACT AERS Take 2 puff every four hours as needed 11/01 albuterol sulfate 83585808407 Erinn Edilberto CORBIN TOPIRAMATE 25 MG TABS topiramate 46776135734 Na Son MA NITROGLYCERIN 0.4 MG SUBL nitroglycerin 30413447234 Na paiz MA IBUPROFEN 800 MG TABS TAKE 1 TABLET BY MOUTH EVERY 8 HOURS NEEDED 10/26 ibuprofen 79109387938 Amie Pena MD METOPROLOL TARTRATE 25 MG TABS metoprolol tartrate 85076856893 Charissa Breen APRN ATORVASTATIN CALCIUM 80 MG TABS atorvastatin 46369979254 Charissa Breen APRN BRILINTA 90 MG TABS BID ticagrelor 66089106097 Charissa Breen APRN TIZANIDINE HCL 2 MG TABS Take 1 tablet by mouth three times a day as needed for pain TAKE 1 TABS THREE TIMES A DAY NEEDED FOR MUSCLE PAIN. 10/23 tizanidine 74075129150 Amie Pena MD TIZANIDINE HCL 2 MG TABS TAKE 1 TABLET BY MOUTH THREE TIMES A DAY NEEDED FOR MUSCLE PAIN. tizanidine 43191902542 Amie Pena MD LORATADINE 10 MG TABS TAKE 1 TABLET BY MOUTH 1 TIME A DAY NEEDED FOR ALLERGIES loratadine 50337918916 Amie Pena MD IBUPROFEN 800 MG TABS TAKE 1 TABLET BY MOUTH EVERY 8 HOURS NEEDED ibuprofen 35408644251 Amie Pena MD IBUPROFEN 800 MG TABS TAKE 1 TABLET BY MOUTH EVERY 8 HOURS NEEDED ibuprofen 60762725643 Amie Pena MD CLARITIN 10 MG TABS Take 1 tablet by mouth once a day as needed 09/25 loratadine 72894955632 Erinn Casanova CMA LORATADINE 10 MG TABS TAKE 1 TABLET BY MOUTH 1 TIME A DAY NEEDED FOR ALLERGIES loratadine 83447637596 Amie Pena MD VITAMIN B-12 1000 MCG TABS Take 1 tablet by mouth once a day cyanocobalamin (vitamin b-12) 99281165292 Amie Pena MD TIZANIDINE HCL 2 MG TABS TAKE 1 TABS THREE TIMES A DAY NEEDED FOR MUSCLE PAIN. tizanidine 87005159737 Amie Pena MD SHINGRIX 50 MCG/0.5ML SUSR Inject 1/2 ml intramuscularly single dose varicella-zoster ge-as01b (pf) 03887168075 Amie Pena MD TIZANIDINE HCL 2 MG TABS Take 1 tablet by mouth three times a day as needed for pain TAKE 1 TABS THREE TIMES A DAY NEEDED FOR MUSCLE PAIN. tizanidine 04967535154 Amie Pena MD LINZESS 145 MCG CAPS Take 1 capsule by mouth once a day linaclotide 90435106942 Amie Pena MD VITAMIN B-12 1000 MCG TABS Take 1 tablet by mouth once a day cyanocobalamin (vitamin b-12) 38263659598 Amie Pena MD HYDROCODONE-KIRSTIE TAMINOPHEN 7.5-325 MG TABS Take 1 tablet by mouth every six hours as needed hydrocodone-acet aminophen 98515569039 Garima Fitzpatrick MA GABAPENTIN 300 MG CAPS Take 1 capsule by mouth twice a day as needed for pain gabapentin 69261129837 Garima Fitzpatrick MA TRAZODONE HCL 50 MG TABS 0.5-2 tablet by mouth at bedtime as directed : take approx 30min prior to bedtime as needed trazodone 09685802107 Nora Feck RESEARCH FOOD TECHNOLOGIST, PMHNP QUETIAPINE FUMARATE 50 MG TABS 0.5-2 tablet by mouth at bedtime as needed 05/05 quetiapine 70929777651 Nora Feck RESEARCH FOOD TECHNOLOGIST, PMHNP QUETIAPINE FUMARATE 50 MG TABS TAKE 0.5-2 TABLET BY MOUTH AT BEDTIME NEEDED quetiapine 83105687397 Nora Feck RESEARCH FOOD TECHNOLOGIST, PMHNP GABAPENTIN 300 MG CAPS Take 1 capsule by mouth twice a day as needed for pain gabapentin 22440320584 Allison Wild MA HYDROCODONE-KIRSTIE TAMINOPHEN 7.5-325 MG TABS Take 1 tablet by mouth every six hours as needed hydrocodone-acet aminophen 51003616013 Allison Wild MA TIZANIDINE HCL 2 MG TABS Take 1 tablet by mouth three times a day as needed 03/04 tizanidine 05536752875 Charissa Breen APRN TIZANIDINE HCL 2 MG TABS TAKE 1 TABS THREE TIMES A DAY NEEDED FOR MUSCLE PAIN. tizanidine 52363082243 Amie Pena MD QUETIAPINE FUMARATE 50 MG TABS 0.5-2 tablet by mouth at bedtime as needed quetiapine 17323724408 Nora Espinosakyara RESEARCH FOOD TECHNOLOGIST, PMHNP LATUDA 40 MG TABS Take 1 tablet by mouth every night with meals take with at least 250 calories lurasidone 28991343756 Nora Jesúskyara RESEARCH FOOD TECHNOLOGIST, PMHNP IBUPROFEN 800 MG TABS Take 1 tablet by mouth every eight hours as needed 01/24 ibuprofen 27339420126 Amie Pena MD IBUPROFEN 800 MG TABS TAKE 1 TABLET BY MOUTH EVERY 8 HOURS NEEDED ibuprofen 21241236204 Amie Pena MD INCRUSE ELLIPTA 62.5 MCG/ACT AEPB Use 1 once a day umeclidinium 96186238351 Amie Pena MD TIZANIDINE HCL 2 MG TABS Take 1 tablet by mouth three times a day as needed tizanidine 19628112491 Charissa Breen APRN SYMBICORT 160-4.5 MCG/ACT AERO Use 2 twice a day budesonide-formo terol 85701263548 Amie Pena MD CLARITIN 10 MG TABS Take 1 tablet by mouth once a day as needed loratadine 01998786753 Erinn Casanova WIRE WINDER ALBUTEROL SULFATE HFA 108 (90 Base) MCG/ACT AERS Take 2 puff every four hours as needed albuterol sulfate 84250925742 Erinn Edilberto WIRE WINDER IBUPROFEN 800 MG TABS Take 1 tablet by mouth every eight hours as needed ibuprofen 59447985727 Amie Pena MD HYDROCODONE-KIRSTIE TAMINOPHEN 5-325 MG TABS Take 1 tablet by mouth every six hours as needed hydrocodone-acet aminophen 72190897943 Amie Pena MD GABAPENTIN 300 MG CAPS Take 1 capsule by mouth at bedtime as needed for pain gabapentin 34085407182 Erinn Casanova WIRE WINDER TIZANIDINE HCL 2 MG TABS TAKE 1 TABS THREE TIMES A DAY NEEDED FOR MUSCLE PAIN. TIZANIDINE HCL 91682972176 Amie Pena MD TIZANIDINE HCL 2 MG TABS take 1 capsule three times a day as needed for muscle pain. TIZANIDINE HCL 16851690731 Amie Pena MD IBUPROFEN 800 MG TABS TAKE 1 TABLET BY MOUTH EVERY 8 HOURS NEEDED IBUPROFEN 39023018370 Amie Pena MD ZANAFLEX 4 MG ORAL CAPSULE take 1 capsule three times a day as needed for muscle pain. TIZANIDINE HCL 08022534493 Amie Pena MD SYMBICORT 160-4.5 MCG/ACT AERO USE 2 INHALATIONS TWICE A DAY BUDESONIDE-FORMO TEROL FUMARATE 96139961074 Amie Pena MD INCRUSE ELLIPTA 62.5 MCG/ACT AEPB USE 1 INHALATION ONCE A DAY UMECLIDINIUM BROMIDE 77150521786 Amie Pena MD SPIRIVA HANDIHALER 18 MCG CAPS USE 1 INHALATION ONCE A DAY 09/30 TIOTROPIUM BROMIDE MONOHYDRATE 66253547716 Amie Pena MD BREO ELLIPTA 100-25 MCG/ACT AEPB USE 1 INHALATION ONCE A DAY 09/30 FLUTICASONE FUROATE-VILANTER OL 82726490328 Amie Pena MD ZITHROMAX Z-KISHAN 250 MG TABS TAKE 2 TABLETS BY MOUTH ON DAY 1 THEN 1 TABLET BY MOUTH DAILY FOR 4 DAYS (DAY 2-5) 09/23 AZITHROMYCIN 46552027994 Amie Pena MD HYDROCODONE-KIRSTIE TAMINOPHEN 5-325 MG TABS take 1 tablet every 6 hours as needed for pain. HYDROCODONE-ACET AMINOPHEN 65610114672 Amie Pena MD ALBUTEROL SULFATE HFA 108 (90 Base) MCG/ACT AERS TAKE 2 PUFFS EVERY 4 HOURS NEEDED FOR WHEEZING ALBUTEROL SULFATE 84967924156 Amie Pena MD NYSTATIN 103752 UNIT/GM CREA APPLY THIN FILM 3 TIMES A DAY FOR 2 WEEKS 02/19 NYSTATIN 91031887944 Amie Pena MD CLARITIN 10 MG TABS TAKE 1 TABLET BY MOUTH 1 TIME A DAY NEEDED FOR ALLERGIES LORATADINE 39999300864 Amie Pena MD SPIRIVA HANDIHALER 18 MCG CAPS USE 1 INHALATION ONCE A DAY TIOTROPIUM BROMIDE MONOHYDRATE 87230852982 Amie Pena MD BREO ELLIPTA 100-25 MCG/ACT AEPB USE 1 INHALATION ONCE A DAY FLUTICASONE FUROATE-VILANTER OL 33860492627 Amie Pena MD Medications Administered No information [...] in Blood ABS NEUTROPH 5558 CELLS/UL 10*3/uL [phone] N Neutrophils [#/volume] in Blood MPV 9.8 [...] Plan of Care Type Date Detail Referral Sayah Referral General Surgery Referral General Referral excluded [...] Procedures Code Procedure Name Date Entry Date [facility]-[id number] Medication Reconciliation Inj Order Injection(s) Ordered [id number] 340B Depo medrol 80mg/ml Injection 2021/0 05/15 CPT-3074F Most recent systolic blood pressure <130 mm Hg CPT-3078F Most recent diastoli c blood pressure <80 mm Hg SCT-[id number] Medication Reconciliation CPT-3074F Most recent systolic blood pressure <130 mm Hg CPT-3078F Most recent diastoli c blood pressure <80 mm Hg SCT-778703872 Giving encouragement to exercise SCT-021689982 Dietary management education/guidance/counseling CPT II 4004F Patient screened for tobacco use and received tobacco cessation intervention SCT-[id number] Medication Reconciliation CPT-1159F Medication list docu mented in medical record CPT-1160F Review of all medica tions by a prescribing practitioner [facility] G1543 T1 Drug Screen STAND RACHELE-Urine w/o Confirmation SCT-246501563 Giving encouragement to exercise SCT-[id number] Medication Reconciliation CPT-3074F Most recent systolic blood pressure <130 mm Hg CPT-3078F Most recent diastoli c blood pressure <80 mm Hg CPT-1159F Medication list docu mented in medical record CPT-1160F Review of all medica tions by a prescribing practitioner [facility] 927 T1 B12 [facility] 6399 T1 CBC with diff [facility] 73700 T1 CMP [facility] 11543 T1 Lipid Panel [facility] 75009 T1 TSH reflex to free T4 202 10/06/00 Inj Order Injection(s) Ordered [id number] 340B Vitamin B-12 Injection CPT-16481 Cologuard 60955 Fluzone Quadrivalent CPT-28325 IMADM >18YR IM R[address]TE 1[address] VAC/TOXOID 06/17 SCT-[id number] Medication Reconciliation CPT-3074F Most recent systolic blood pressure <130 mm Hg CPT-3078F Most recent diastoli c blood pressure <80 mm Hg CPT-1159F Medication list docu mented in medical record CPT-1160F Review of all medica tions by a prescribing practitioner SCT-842131509212781 Medication Reconciliation CPT-3075F Most recent systolic blood pressure 130-139 mm Hg CPT-3079F Most recent diastoli c blood pressure 80-89 mm Hg CPT-3075F Most recent systolic blood pressure 130-139 mm Hg CPT-3079F Most recent diastoli c blood pressure 80-89 mm Hg CPT-1159F Medication list docu mented in medical record SCT-[id number] Medication Reconciliation [facility] 927 T1 B12 [facility] 6399 T1 CBC with diff [facility] 07823 T1 CMP [facility] 466 T1 Folic Acid [facility] 35933 T1 Hepatic Function Panel 20 23/04/06 [facility] 496 T1 HGBA1c [facility] 03576 T1 Lipid Panel [facility] 81360 T1 TSH reflex to free T4 202 09/10/05 [facility] 35496 T2 Vitamin D 25 Dihydroxy 20 23/04/06 CPT-3075F Most recent systolic blood pressure 130-139 mm Hg CPT-3078F Most recent diastoli c blood pressure <80 mm Hg SCT-[id number] Medication Reconciliation GEN SX GEN General Surgery Referral General SCT-[id number] Medication Reconciliation CPT-3074F Most recent systolic blood pressure <130 mm Hg CPT-3079F Most recent diastoli c blood pressure 80-89 mm Hg CPT-1159F Medication list docu mented in medical record CPT-1160F Review of all medica tions by a prescribing practitioner SCT-348743063 Giving encouragement to exercise SCT-567284590 Current every day smoker 20 22/01/04 SCT-061157334 Smoking cessation education CPT-3075F Most recent systolic blood pressure 130-139 mm Hg CPT-3079F Most recent diastoli c blood pressure 80-89 mm Hg SCT-570069571412656 Medication Reconciliation SCT-858313371 Giving encouragement to exercise CPT-1159F Medication list docu mented in medical record X-Ray Hand Right X-Ray Hand Right CPT-1160F Review of all medica tions by a prescribing practitioner PAIN GEN Pain Management Referral General X-Ray Thoracic Spine X-Ray Thoracic Spine [facility] 6399 T1 CBC with diff [facility] 96078 T1 CMP [facility] 249 T2 TORRES [facility] 4418 T2 Rheumatoid Factor Quant 2 [facility] 809 T1 Sedimentation Rate RBC 20 24/10/25 CARD GEN Cardiology Referral General CPT-3075F Most recent systolic blood pressure 130-139 mm Hg CPT-3079F Most recent diastoli c blood pressure 80-89 mm Hg SCT-653952285898283 Medication Reconciliation SCT-630907923 Giving encouragement to exercise CPT-1159F Medication list docu mented in medical record CPT-1160F Review of all medica tions by a prescribing practitioner SCT-099987577 Current every day smoker 20 23/09/27 SCT-696360240 Smoking cessation education SCT-363252165 Smoking cessation education 12953 Flulaval Quadrivalent 09/30 CPT-77639 IMADM >18YR IM R[address] 1ST VAC/TOXOID 09/30 [id number] 340B Depo medrol 80mg/ml Injection 09/30 Inj Order Injection(s) Ordered [facility] 6399 T1 CBC with diff [facility] 22999 T1 CMP [facility] 496 T1 HGBA1c [facility] 84476 T1 Lipid Panel [facility] 25612 T1 TSH reflex to free T4 09/03/27 [facility] 50759 T1 Acute Hepatits Panel 2020 CPT-1159F Medication list docu mented in medical record SCT-[id number] Medication Reconciliation SCT-566134236 Giving encouragement to exercise Quest 36167 Patient Pay- COVID-19 09/18 X-Ray Chest X-Ray Chest SCT-[id number] Medication Reconciliation SCT-668073602 Giving encouragement to exercise CPT-3074F Most recent systolic blood pressure <130 mm Hg CPT-3078F Most recent diastoli c blood pressure <80 mm Hg PAIN GEN Pain Management Referral General CPT-1159F Medication list docu mented in medical record CPT-1160F Review of all medica tions by a prescribing practitioner [facility] F8318 T1 Drug Screen STAND RACHELE-Urine w/o Confirmation SCT-[id number] Medication Reconciliation Mammo ANAND Mammogram SCT-977118538 Giving encouragement to exercise [facility] 6399 T1 CBC with diff [facility] 90146 T1 CMP [facility] 91020 T1 Acute Hepatits Panel 2019 Quest 00570 T1 Lipid Panel [facility] 92626 T1 TSH reflex to free T4 202 [facility]-[id number] [facility] Vital Signs Date Name Value Unit Description [...]
--- OUTSIDE RECORDS SUMMARY | 2025-08-06 11:51 | XMS_ITS | Encounter Summary ---
Author Organization [employer] ([place], [place], [place], [place], [place]) Address [address] [place] [address] Care Team Providers Care Oil Dipper Name Role Phone Amie Pena MD Primary Care Provider [phone] Marvel Grayson MD Primary Care Provider [phone] Encounter Details Date Type Department Care Team (Late st Contact Info) Description 07/06/2019 Transcribed Document [facility] Family Medicine [address] [place] [address] ProviderMik MD [address] [place] [address] Social History Tobacco Use Types Packs/Day [...] Mik Thorne MD - 07/06/2019 9:45 AM [employer] ENGINEER [facility] Authorization Entered On: 07/06/2019 9:45 EST Performed On: 07/06/2019 9:45 EST by SHAAN RICHTER Rn-Utilization Review Primary Insurance Authorization Authorization and Policy Numbers : Insurance 1 Health Plan: [employer] Policy Number: [id number] Authorization Number: Insurance Primary Name : [employer] Authorization Status-Primary : Awaiting callback Reference Number-Primary : [id number] Authorized Service Begin Date-Primary : 07/05/2019 EDT Authorization Comments-Primary : Clinicals submitted via [facility] portal. Historical Authorization Comments-Primary : Comment 1: Reference number retrieved from [facility] portal. (SHAAN RICHTER Rn-Utilization Review 07/06/2019 09:37) SHAAN RICHTER Rn-Utilization Review - 07/06/2019 9:45 EST Electronically signed by [facility], [facility] [employer] Service Supervisor [employer]ner at 12/16/2022 10:49 AM CDT documented in this encounter Plan of Treatment Upcoming Encounters Date Type Department Care Team (Late st Contact Info) Description 11/03/2025 12:45 PM EST Office Visit [facility] Pulmonology - [address] [place] [address] Ben Barrios MD [address] [place], [place] [id number] documented as of this encounter Visit Diagnoses Not on filedocumented in this encounter Care Teams Oil Dipper Relationship Specialty Start Date End Date Amie Pena MD [address] [place] [address] PCP - General Family Medicine 10/31/22 04/08/23 Marvel Grayson MD [address] [place] [address] PCP - General Family Medicine 05/17/23 Marvel Grayson [address] [place] [address] Family Practice 04/09/23 documented as of this encounter
--- OUTSIDE RECORDS SUMMARY | 2025-08-06 11:51 | XMS_ITS | Encounter Summary ---
Author Organization [employer] ([place], [place], [place], [place], [place]) Address [address] [place] [address] Care Team Providers Care Airborne Sensor Specialist Name Role Phone Amie Pena MD Primary Care Provider [phone] Marvel Grayson MD Primary Care Provider [phone] Encounter Details Date Type Department Care Team (Late st Contact Info) Description 10/29/2019 Transcribed Document [facility] [place] Family Medicine [address] [place] [address] ProviderMik MD [address] [place] [address] Social History Tobacco Use Types Packs/Day Years Used Date Smoking Tobacco: Never Assessed Comments Unknown Sex and Gender Information Value Date Recorded Sex Assigned at Not on file Legal Sex Female 6:09 PM CDT Gender Identity Not on file Sexual Orientation Not on file documented as of this encounter Miscellaneous Notes * Cerner Conversion Note - Historical ProviderMD - 10/29/2019 2:27 PM API PRODUCT MANAGER Patient: PRATIK SHABAZZ Age: 49 years Sex: Female : 1970 Associated Diagnoses: Chest pain Author: EARL STACK, DENTURE TECHNICIAN-EMR Basic Information Time seen: Date & time [...] at 40 Years. Removal of ovarian cyst ([id number]). I&D to left finger. Hysterectomy ([id number])., Reviewed as documented in chart. Family history: [...] EST Height Source Estimated Height Entry Format [place] Height/Length, FIJIAN (ft) 5 ft Height/Length FIJIAN 11 Inch CLINICALHEIGHT 180.34 cm [place] Body Weight 70.31 kg Weight Source, ED Critical estimated dosing weight Weight Entry Format [place] Weight Ivorian lb 200 lb CLINICALWEIGHT 90.91 kg Body [...] Triage: ED C-SSRS: ED Clinical Reconciliation: ED learning disabilities resource teacher: PT/INR Prothrombin Time: Saline Lock Insert: Troponin [...] 44.7 % Lymph # 4.34 K/uL HI [place] % 7.4 % [place] # 0.72 K/uL Eos % 4.3 % Eos # 0.42 K/uL Baso % 0.8 % Baso # 0.08 K/uL Slide Review No IG# 0 x10(3)/uL IG% 0 % PT 10.3 Second(s) INR 1.0 . Radiology results: Radiology Results (Last 48 hours) [id number] -- 10/29/2019 14:14 CR Chest 1 Vw [...] with any other physician scheduling needs at [phone]. Rest, fluids, follow up with pcp in 1-2 days for recheck. Return to ER as needed. . Counseled: Patient, Regarding diagnosis, Regarding diagnostic results, Regarding treatment plan, Regarding prescription, Patient indicated understanding of instructions. Electronically signed by Karthikeyan Bean Conversion Housing Management Officer Cerner at 12/16/2022 10:46 AM CDT documented in this encounter Plan of Treatment Upcoming Encounters Date Type Department Care Team (Late st Contact Info) Description 11/03/2025 12:45 PM EST Office Visit [facility] Pulmonology - [address] [place] [id number] Ben Barrios MD [address] [place] [address] documented as of this encounter Visit Diagnoses Not on filedocumented in this encounter Care Teams Airborne Sensor Specialist Relationship Specialty Start Date End Date Amie Pena MD [address] [place] [address] [place] [address] PCP - General Family Medicine 10/31/22 04/08/23 Marvel Grayson MD [address] [place] [address] [place] [address] PCP - General Family Medicine 05/17/23 Marvel Grayson [address] [place] [address] Family Practice 04/09/23 documented as of this encounter
--- OUTSIDE RECORDS SUMMARY | 2025-08-06 11:51 | XMS_ITS | Encounter Summary ---
Author Organization [employer] ([place], [place], [place], [place], [place]) Address [address] [place] [address] Care Team Providers Care Senior Construction Project Manager Name Role Phone Amie Pena MD Primary Care Provider [phone] Marvel Grayson MD Primary Care Provider [phone] Encounter Details Date Type Department Care Team (Late st Contact Info) Description 07/07/2019 Transcribed Document [facility] Family Medicine [address] [place] [address] ProviderMik MD [address] [place] [address] Social History Tobacco Use Types Packs/Day Years Used Date Smoking Tobacco: Never Assessed Comments Unknown Sex and Gender Information Value Date Recorded Sex Assigned at Not on file Legal Sex Female 6:09 PM CDT Gender Identity Not on file Sexual Orientation Not on file documented as of this encounter Miscellaneous Notes * Cerner Conversion Note - Historical ProviderMD - 07/07/2019 3:47 PM CARETAKER Discharge Summary, PT Entered On: 07/07/2019 15:48 [...] TAHIRA ANDRES, PT - 07/07/2019 15:49 EST Electric Meter Tester Goals Other PT LTG Grid Goal #1 [...] : Not met Not met IKE ARIAS, NET DEVELOPMENT MANAGER - 07/07/2019 15:47 EST IKE ARIAS PTA - 07/07/2019 15:47 EST documented in this encounter Plan of Treatment Upcoming Encounters Date Type Department Care Team (Late st Contact Info) Description 11/03/2025 12:45 PM EST Office Visit [facility] Pulmonology - [address] [place] [address] Ben Barrios MD [address] [place] [address] documented as of this encounter Visit Diagnoses Not on filedocumented in this encounter Care Teams Senior Construction Project Manager Relationship Specialty Start Date End Date Amie Pena MD [address] [place] [address] PCP - General Family Medicine 10/31/22 04/08/23 Marvel Grayson MD [address] [place] [address] PCP - General Family Medicine 05/17/23 Marvel Grayson [address] [facility] [place] [id number] Family Practice 04/09/23 documented as of this encounter
--- OUTSIDE RECORDS SUMMARY | 2025-08-06 11:51 | XMS_ITS | Encounter Summary ---
Author Organization [employer] ([place], [place], [place], [place], [place]) Address [address] [place] [address] Care Team Providers Care Admittance Attendant Name Role Phone Marbella Pena MD Primary Care Provider [phone] Marvel Grayson MD Primary Care Provider [phone] Encounter Details Date Type Department Care Team (Late st Contact Info) Description 08/06/2020 Transcribed Document [facility] [place] [facility] Family Medicine [address] [place] [address] ProviderMik MD [address] [place] [address] Social History Tobacco Use Types Packs/Day [...] Mik Thorne MD - 08/06/2020 2:44 PM SENIOR LINUX ENGINEER Patient: PRATIK SHABAZZ Age: 49 years Sex: [...] at 40 Years. Removal of ovarian cyst ([id number]). I&D to left finger. Hysterectomy ([id number]).. Family history: No family history items have [...] EST Height Source Estimated Height Entry Format [place] Height/Length, TUNISIAN (ft) 5 ft Height/Length TUNIS[place] 11 Inch CLINICALHEIGHT 180.34 cm [place] Body Weight 70.31 kg Weight Source, ED Critical estimated dosing weight Weight Entry Format [place] Weight Salvadorean lb 200 lb CLINICALWEIGHT 90.91 kg Body Surface Area (BSA) 2.11 m2 Body Mass Index 28 kg/m2 HI . Oxygen Saturation 08/06/2020 14:01 EST Oxygen Saturation 94 % . General: Alert, mild distress. [place] coma scale: Total score: Total score: 15. [...] 14:47 EST, Discharge to: Home. Prescriptions: Prescription Dry Room Attendant Pharmacy: [facility] 7.5 mg-325 mg oral tablet (Prescribe): 1 [...] Upcoming Encounters Date Type Department Care Team ([facility] st Contact Info) Description 11/03/2025 12:45 PM EST Office Visit [facility] Pulmonology - [address] [place] [address] Ben Barrios MD [address] [place] [address] documented as of this encounter Visit Diagnoses Not on filedocumented in this encounter Care Teams Admittance Attendant Relationship Specialty Start Date End Date Marbella Pena MD [address] [place] [address] [place] [address] PCP - General Family Medicine 10/31/22 04/08/23 Marvel Grayson MD [address] [place] [address] [place] [address] PCP - General Family Medicine 05/17/23 Marvel Grayson [address] [place] [address] Family Practice 04/09/23 documented as of this encounter
--- OUTSIDE RECORDS SUMMARY | 2025-08-06 11:51 | XMS_ITS | Encounter Summary ---
Author Organization [employer] ([place], [place], [place], [place], [place]) Address [address] [place] [address] Care Team Providers Care Junior Web Developer Name Role Phone Marbella Pena MD Primary Care Provider [phone] Marvel Grayson MD Primary Care Provider [phone] Encounter Details Date Type Department Care Team (Late st Contact Info) Description 08/06/2020 Transcribed Document [facility] [place] Family Medicine [facility] [place] [address] ProviderMik MD [address] [place] [address] Social History Tobacco Use Types Packs/Day Years Used Date Smoking Tobacco: Never Assessed Comments Unknown Sex and Gender Information Value Date Recorded Sex Assigned at Not on file Legal Sex Female 6:09 PM CDT Gender Identity Not on file Sexual Orientation Not on file documented as of this encounter Miscellaneous Notes * Cerner Conversion Note - Mik ProviderMD - 08/06/2020 2:52 PM SWITCH HOUSE OPERATOR CHARAN Lowery [address] [place] [address] PRATIK SHABAZZ :1970 Visit Time:08/06/2020 [...] When Within 2 to 3 days Where: [place] [address]- Business (1) Allergies Levaquin Cymbalta (suicidal) Haldol (Hives) Ultram (Hives) Vraylar (Suicidal thoughts) codeine (Respiratory depression) doxycycline (Vomiting) penicillin (Headache) Immunizations This Visit No Immunizations Found Medications What How Much When Instructions Next Dose acetaminophen-hydrocodone (Lortab 5/ 325 oral tablet) Oral Every 6 Hours acetaminophen-hydrocodone (Poulan 7.5 mg-325 mg oral tablet) 1 Tablet(s) [...] as you can. Do not try to sweet pickled fruit maker a heavy object that is far from [...] on shelves at waist level, and put acidizer helper objects on lower or higher shelves. ??? [...] 09/27/2005 Document Revised: 10/05/2018 Document Reviewed: 10/05/2018 [employer]Soup Patient Education ?? 2020 [employer]. Emergency Awareness and Preventative Care STROKE is [...] Assistance with quitting is available by contacting 0-868-WKMS-NOW. This is a free resource providing counseling, [...] was given the opportunity to ask questions. Patient/Mail Processing Equipment Mechanic Name: Patient/Mail Processing Equipment Mechanic Signature: Relationship to Patient: Clinician/Hospital Mail Processing Equipment Mechanic Signature: Please Provide a Telephone Number Where You Can Be Reached: Is it Permissible To Leave a Message? Date: documented in this encounter Plan of Treatment Upcoming Encounters Date Type Department Care Team (Late st Contact Info) Description 11/03/2025 12:45 PM EST Office Visit [facility] Pulmonology - [address] [place] [address] Ben Barrios MD [address] [place] [address] documented as of this encounter Visit Diagnoses Not on filedocumented in this encounter Care Teams Junior Web Developer Relationship Specialty Start Date End Date Marbella Pena MD [address] [place] [address] [place] [address] PCP - General Family Medicine 10/31/22 04/08/23 Marvel Grayson MD [address] [place] [address] [place] [address] PCP - General Family Medicine 05/17/23 Marvel Grayson [address] [place] [address] Family Practice 04/09/23 documented as of this encounter
--- OUTSIDE RECORDS SUMMARY | 2025-08-06 11:51 | XMS_ITS | Encounter Summary ---
Author Organization [employer] ([place], [place], [place], [place], [place]) Address [address] [place] [address] Care Team Providers Care Italian Tutor Name Role Phone Amie Pena MD Primary Care Provider [phone] Marvel Grayson MD Primary Care Provider [phone] Encounter Details Date Type Department Care Team (Late st Contact Info) Description 07/07/2019 Transcribed Document [facility] [place] Family Medicine [address] [place] [address] ProviderMik MD [address] [place] [address] Social History Tobacco Use Types Packs/Day Years Used Date Smoking Tobacco: Never Assessed Comments Unknown Sex and Gender Information Value Date Recorded Sex Assigned at Not on file Legal Sex Female 6:09 PM CDT Gender Identity Not on file Sexual Orientation Not on file documented as of this encounter Miscellaneous Notes * Cerner Conversion Note - Historical ProviderMD - 07/07/2019 5:00 AM LEATHER DRESSER Chart Check - Review Order Profile Entered On: 07/07/2019 5:29 EST Performed On: 07/07/2019 5:00 EST by Max Pereyra, RN Chart Check Powerplans Initiated/Discontinued as Appropriate : Yes All Active Orders Reviewed : Yes Max Pereyra, RN - 07/07/2019 5:29 EST Electronically signed by Geneva Freeman [facility] Conversion Gauge And Weigh Machine Adjuster Cerner at 12/16/2022 10:46 AM CDT documented in this encounter Plan of Treatment Upcoming Encounters Date Type Department Care Team (Late st Contact Info) Description 11/03/2025 12:45 PM EST Office Visit [facility] Pulmonology - [address] [place] [address] Ben Barrios MD [address] [place] [address] documented as of this encounter Visit Diagnoses Not on filedocumented in this encounter Care Teams Italian Tutor Relationship Specialty Start Date End Date Amie Pena MD [address] [place], [place] [address]alys[address] [place] [address] PCP - General Family Medicine 10/31/22 04/08/23 Marvel Grayson MD [facility] [place] [address] PCP - General Family Medicine 05/17/23 Marvel Grayson [address] [place] [address] Family Practice 04/09/23 documented as of this encounter
--- OUTSIDE RECORDS SUMMARY | 2025-08-06 11:51 | XMS_ITS | Encounter Summary ---
Author Organization [employer] ([place], [place], [place], [place], [place]) Address [address] [place] [address] Care Team Providers Care Dictionary Editor Name Role Phone Amie Pena MD Primary Care Provider [phone] Marvel Grayson MD Primary Care Provider [phone] Encounter Details Date Type Department Care Team (Late st Contact Info) Description 10/29/2019 Transcribed Document [facility] [address] [place] [address] Provider, Karthikeyan Houser MD Social History Tobacco Use Types Packs/Day Years Used Date Smoking Tobacco: Never Assessed Comments Unknown Sex and Gender Information Value Date Recorded Sex Assigned at Not on file Legal Sex Female 6:09 PM CDT Gender Identity Not on file Sexual Orientation Not on file documented as of this encounter Miscellaneous Notes * Cerner Conversion Note - [facility] Mik Thorne MD - 10/29/2019 6:47 PM EST [facility] [address] [place] [address] PRATIK SHABAZZ :1970 Visit Time:10/29/2019 [...] with any other physician scheduling needs at [phone]. Rest, fluids, follow up with pcp in [...] range between ( 1.0 and 7.0 ) [place] #: 0.72 K/uL -- Normal range between ( 0.24 and 0.82 ) Eos #: 0.42 K/uL -- Normal range between ( 0.04 and 0.54 ) [place] %: 7.4 % -- Normal range between [...] you start to feel better. ??? Take qsgu-xka-rvhxeyc and prescription medicines only as told by [...] 05/30/2006 Document Revised: 05/14/2017 Document Reviewed: 05/14/2017 L-3 [employer] Interactive Patient Education ?? 2019 [employer]. Emergency Awareness and Preventative Care STROKE is [...] Assistance with quitting is available by contacting 0-603-YIYS-NOW. This is a free resource providing counseling, [...] was given the opportunity to ask questions. Patient/Life Specialist Name: Patient/Life Specialist Signature: Relationship to Patient: Clinician/Hospital Life Specialist Signature: Please Provide a Telephone Number Where You Can Be Reached: Is it Permissible To Leave a Message? Date: documented in this encounter Plan of Treatment Upcoming Encounters Date Type Department Care Team (Late st Contact Info) Description 11/03/2025 12:45 PM EST Office Visit [facility] Pulmonology - [address] [place] [id number] Ben Barrios MD [address] [place] [address] documented as of this encounter Visit Diagnoses Not on filedocumented in this encounter Care Teams Dictionary Editor Relationship Specialty Start Date End Date Amie Pena MD [address] [place] [address] [address] PCP - General Family Medicine 10/31/22 04/08/23 Marvel Grayson MD [address] [place] [address] [place] [address] PCP - General Family Medicine 05/17/23 Marvel Grayson [address] [place] [address] Family Practice 04/09/23 documented as of this encounter
--- OUTSIDE RECORDS SUMMARY | 2025-08-06 11:51 | XMS_ITS | Encounter Summary ---
Author Organization [employer] ([place], [place], [place], [place], [place]) Address [address] [place] [address] Care Team Providers Care Trial Mgr Name Role Phone Amie Pena MD Primary Care Provider [phone] Marvel Grayson MD Primary Care Provider [phone] Encounter Details Date Type Department Care Team (Late st Contact Info) Description 07/07/2019 Transcribed Document [facility] Family Medicine [facility] [place] [address] ProviderMik MD [address] [place] [address] Social History Tobacco Use Types Packs/Day Years Used Date Smoking Tobacco: Never Assessed Comments Unknown Sex and Gender Information Value Date Recorded Sex Assigned at Not on file Legal Sex Female 6:09 PM CDT Gender Identity Not on file Sexual Orientation Not on file documented as of this encounter Miscellaneous Notes * Cerner Conversion Note - Historical ProviderMD - 07/07/2019 12:56 PM DIETITIAN TEACHING SEAN [address] [address] Visit Date/Time: 07/07/2019 12:56:55 PRATIK SHABAZZ The above patient was seen in the hospital today and needs to be excused from work/school until Return to Work/School Date: 07/10/2019 documented in this encounter Plan of Treatment Upcoming Encounters Date Type Department Care Team (Late st Contact Info) Description 11/03/2025 12:45 PM EST Office Visit [facility] Pulmonology - [address] [place] [address] Ben Barrios MD [address] [place] [address] documented as of this encounter Visit Diagnoses Not on filedocumented in this encounter Care Teams Trial Mgr Relationship Specialty Start Date End Date Amie Pena MD [address] [place] [address] [place] [address] PCP - General Family Medicine 10/31/22 04/08/23 Marvel Grayson MD [address] [place] [address] [place] [address] PCP - General Family Medicine 05/17/23 Marvel Grayson [address] [place], [place] [address] Family Practice 04/09/23 documented as of this encounter
--- OUTSIDE RECORDS SUMMARY | 2025-08-06 11:51 | XMS_ITS | Encounter Summary ---
Author Organization [employer] ([place], [place], [place], [place], [place]) Address [address] [place] [address] Care Team Providers Care Spray Painting Machine Operator Name Role Phone Amie Pena MD Primary Care Provider [phone] Marvel Grayson MD Primary Care Provider [phone] Encounter Details Date Type Department Care Team (Late st Contact Info) Description 07/08/2019 Transcribed Document [facility] Family Medicine [address] [place] [address] ProviderMik MD [address] [place] [address] Social History Tobacco Use Types Packs/Day [...] Mik Thorne MD - 07/08/2019 1:30 PM TOOL AND EQUIPMENT RENTAL CLERK UM Authorization Entered On: 07/08/2019 13:30 EST Performed On: 07/08/2019 13:30 EST by FREDERIC PHAM RN-Utilization Review Primary Insurance Authorization Authorization and Policy Numbers : Insurance 1 Health Plan: [employer] Policy Number: [id number] Authorization Number: Insurance Primary Name : [employer] Authorization Status-Primary : Awaiting callback Reference Number-Primary : [id number] Authorized Service Begin Date-Primary : 07/05/2019 EDT Authorization Comments-Primary : [facility] auth still pending per website Historical Authorization Comments-Primary : Comment 1: [facility] auth still pending per website (FREDERIC PHAM RN-Utilization Review 07/07/2019 13:48) Comment 2: Clinicals submitted via [facility] portal. (SHAAN RICHTER Rn-Utilization Review 07/06/2019 09:45) Comment 3: Reference number retrieved from [facility] portal. (SHAAN RICHTER Rn-Utilization Review 07/06/2019 09:37) FREDERIC PHAM RN-Utilization Review - 07/08/2019 13:30 EST Electronically signed by [facility], [facility] Conversion Air Support Operations Operator Cerner at 12/16/2022 10:49 AM CDT documented in this encounter Plan of Treatment Upcoming Encounters Date Type Department Care Team (Late st Contact Info) Description 11/03/2025 12:45 PM EST Office Visit [facility] Pulmonology - [address] [place] [address] Ben Barrios MD [address] [place] [address] documented as of this encounter Visit Diagnoses Not on filedocumented in this encounter Care Teams Spray Painting Machine Operator Relationship Specialty Start Date End Date Amie Pena MD [address] [place], [place] [address] [address] PCP - General Family Medicine 10/31/22 04/08/23 Marvel Grayson MD [address] [place] [address] PCP - General Family Medicine 05/17/23 Marvel Grayson [address] [place] [address] Family Practice 04/09/23 documented as of this encounter
--- OUTSIDE RECORDS SUMMARY | 2025-08-06 11:51 | XMS_ITS | Encounter Summary ---
Author Organization [employer] ([place], [place], [place], [place], [place]) Address [address] [place] [address] Care Team Providers Care Bowling Ball Mold Assembler Name Role Phone Amie Pena MD Primary Care Provider [phone] Marvel Grayson MD Primary Care Provider [phone] Encounter Details Date Type Department Care Team (Late st Contact Info) Description 10/29/2019 Transcribed Document [facility] [place] Family Medicine [facility] [place] [address] ProviderMik MD [address] [place] [address] Social History Tobacco Use Types Packs/Day Years Used Date Smoking Tobacco: Never Assessed Comments Unknown Sex and Gender Information Value Date Recorded Sex Assigned at Not on file Legal Sex Female 6:09 PM CDT Gender Identity Not on file Sexual Orientation Not on file documented as of this encounter Miscellaneous Notes * Cerner Conversion Note - Historical ProviderMD - 10/29/2019 5:47 PM PINKING SEWING MACHINE OPERATOR SEAN [address] [address] Visit Date/Time: 10/29/2019 17:47:26 PRATIK SHABAZZ The above patient was seen in the hospital today and needs to be excused from work/school until Return to Work/School Date:10/31/2019 documented in this encounter Plan of Treatment Upcoming Encounters Date Type Department Care Team (Late st Contact Info) Description 11/03/2025 12:45 PM EST Office Visit [facility] Pulmonology - [address] [place] [address] Ben Barrios MD [address] [place] [address] documented as of this encounter Visit Diagnoses Not on filedocumented in this encounter Care Teams Bowling Ball Mold Assembler Relationship Specialty Start Date End Date Amie Pena MD [address] [place] [address] [place] [address] PCP - General Family Medicine 10/31/22 04/08/23 Marvel Grayson MD [address] [place] [address] [place] [address] PCP - General Family Medicine 05/17/23 Marvel Grayson [address] [place], [place] [id number] Family Practice 04/09/23 documented as of this encounter
--- OUTSIDE RECORDS SUMMARY | 2025-08-06 11:51 | XMS_ITS | Encounter Summary ---
Author Organization [employer] ([place], [place], [place], [place], [place]) Address [address] [place] [address] Care Team Providers Care Middle School Teacher Name Role Phone Amie Pena MD Primary Care Provider [phone] Marvel Grayson MD Primary Care Provider [phone] Encounter Details Date Type Department Care Team (Late st Contact Info) Description 07/06/2019 Transcribed Document [facility] [place] Family Medicine [address] [place] [address] ProviderMik MD [address] [place] [address] Social History Tobacco Use Types Packs/Day Years Used Date Smoking Tobacco: Never Assessed Comments Unknown Sex and Gender Information Value Date Recorded Sex Assigned at Not on file Legal Sex Female 6:09 PM CDT Gender Identity Not on file Sexual Orientation Not on file documented as of this encounter Miscellaneous Notes * Cerner Conversion Note - Mik ProviderMD - 07/06/2019 2:27 PM ELEPHANT TAMER Pain Assessment Entered On: 07/07/2019 12:53 EST [...] of the form. Electronically signed by [place], [facility] Conversion Market Survey Representative Cerner at 12/16/2022 10:51 AM CDT documented in this encounter Plan of Treatment Upcoming Encounters Date Type Department Care Team (Late st Contact Info) Description 11/03/2025 12:45 PM EST Office Visit [facility] Pulmonology - [address] [place] [address] Ben Barrios MD [address] [place] [address] documented as of this encounter Visit Diagnoses Not on filedocumented in this encounter Care Teams Middle School Teacher Relationship Specialty Start Date End Date Amie Pena MD [address] [place] [address] [address]. [place], [place] [id number] PCP - General Family Medicine 10/31/22 04/08/23 Marvel Grayson MD [address] [place] [address] [place] [address] PCP - General Family Medicine 05/17/23 Marvel Grayson [address] [place] [address] Family Practice 04/09/23 documented as of this encounter
--- OUTSIDE RECORDS SUMMARY | 2025-08-06 11:51 | XMS_ITS | Encounter Summary ---
Author Organization [employer] ([place], [place], [place], [place], [place]) Address [address] [place] [address] Care Team Providers Care Interventional Tech Name Role Phone Amie Pena MD Primary Care Provider [phone] Marvel Grayson MD Primary Care Provider [phone] Encounter Details Date Type Department Care Team (Late st Contact Info) Description 07/07/2019 Transcribed Document [facility] [place] [address] [place] [address] ProviderMik MD [address] [place] [address] Social History Tobacco Use Types Packs/Day Years Used Date Smoking Tobacco: Never Assessed Comments Unknown Sex and Gender Information Value Date Recorded Sex Assigned at Not on file Legal Sex Female 6:09 PM CDT Gender Identity Not on file Sexual Orientation Not on file documented as of this encounter Miscellaneous Notes * Cerner Conversion Note - Historical ProviderMD - 07/07/2019 11:23 AM INTERMEDIATE FRAME TENDER CR Chest 1 Vw Portable Ordered: 07/05/2019 Modified Reason for Exam: SOA 07/06/2019 14:34 CR Spine Lumbar 2 or 3 Vws Ordered: 07/05/2019 Auth (Verified) Reason for Exam: Pain 07/06/2019 13:57 07/07/2019 11:23 (XOCHITL SHIELDS PA-C) Reviewed by Provider, No further action required x1 Electronically signed by [place], [facility] Conversion Joint Supervisor Cerner at 12/16/2022 10:40 AM CDT documented in this encounter Plan of Treatment Upcoming Encounters Date Type Department Care Team (Late st Contact Info) Description 11/03/2025 12:45 PM EST Office Visit [facility] Pulmonology - [address] [place] [id number] Ben Barrios MD [address] [place] [address] documented as of this encounter Visit Diagnoses Not on filedocumented in this encounter Care Teams Interventional Tech Relationship Specialty Start Date End Date Amie Pena MD [facility] [place] [address] PCP - General Family Medicine 10/31/22 04/08/23 Marvel Grayson MD [facility] [place] [address] PCP - General Family Medicine 05/17/23 Marvel Grayson [address] [place] [address] Family Practice 04/09/23 documented as of this encounter
--- OUTSIDE RECORDS SUMMARY | 2025-08-06 11:51 | XMS_ITS | Encounter Summary ---
Author Organization [employer] ([place], [place], [place], [place], [place]) Address [address] [place] [address] Care Team Providers Care Brush Cutter Name Role Phone Amie Pena MD Primary Care Provider [phone] Marvel Grayson MD Primary Care Provider [phone] Encounter Details Date Type Department Care Team (Late st Contact Info) Description 10/29/2019 Transcribed Document [facility] [place] [facility] [place] [address] ProviderMik MD [address] [place] [address] Social History Tobacco Use Types Packs/Day Years Used Date Smoking Tobacco: Never Assessed Comments Unknown Sex and Gender Information Value Date Recorded Sex Assigned at Not on file Legal Sex Female 6:09 PM CDT Gender Identity Not on file Sexual Orientation Not on file documented as of this encounter Miscellaneous Notes * Cerner Conversion Note - Historical ProviderMD - 10/29/2019 2:14 PM FIELD SUPERVISOR [place] Suicide Severity Rating Scale (C-SSRS) Entered On: 10/29/2019 14:30 EST Performed On: 10/29/2019 14:29 EST by Candy Formna RN [place] Suicide Severity Rating Scale (C-SSRS) CSSRS Past Month Wish to be : No CSSRS Past Month Suicidal Thoughts : No CSSRS Lifetime Suicide Behavior : No Suicide Severity Rating Score : 0 Suicide Severity Rating : No Additional Care Required at this time Candy Forman, RN - 10/29/2019 14:29 EST Electronically signed by Geneva [facility] Conversion Electric Drill Operator Cerner at 12/16/2022 10:44 AM CDT documented in this encounter Plan of Treatment Upcoming Encounters Date Type Department Care Team (Late st Contact Info) Description 11/03/2025 12:45 PM EST Office Visit [facility] Pulmonology - [address] [place] [id number] Ben Barrios MD [address] [place] [address] documented as of this encounter Visit Diagnoses Not on filedocumented in this encounter Care Teams Brush Cutter Relationship Specialty Start Date End Date Amie Pena MD [address] [place], [place] [address] [address] PCP - General Family Medicine 10/31/22 04/08/23 Marvel Grayson MD [address] [place] [address] PCP - General Family Medicine 05/17/23 Marvel Grayson [address] [place] [address] Family Practice 04/09/23 documented as of this encounter
--- OUTSIDE RECORDS SUMMARY | 2025-08-06 11:51 | XMS_ITS | Encounter Summary ---
Author Organization [employer] ([place], [place], [place], [place], [place]) Address [address] [place] [address] Care Team Providers Care Asbestos Brake Lining Finisher Helper Name Role Phone Amie Pena MD Primary Care Provider [phone] Marvel Grayson MD Primary Care Provider [phone] Encounter Details Date Type Department Care Team (Late st Contact Info) Description 07/07/2019 Transcribed Document [facility] [place] Family Medicine [address] [place] [address] ProviderMik MD [address] [place] [address] Social History Tobacco Use Types Packs/Day Years Used Date Smoking Tobacco: Never Assessed Comments Unknown Sex and Gender Information Value Date Recorded Sex Assigned at Not on file Legal Sex Female 6:09 PM CDT Gender Identity Not on file Sexual Orientation Not on file documented as of this encounter Miscellaneous Notes * Cerner Conversion Note - Historical ProviderMD - 07/07/2019 12:52 PM CENTRAL OFFICE INSTALLER Stroke/Warfarin Instructions Entered On: 07/07/2019 12:52 EST Performed On: 07/07/2019 12:52 EST by Vy Salazar RN Stroke/Warfarin Instructions Stroke/TIA Discharge Ins : N/A Warfarin Discharge Ins : N/A Vy Salazar RN - 07/07/2019 12:52 EST Electronically signed by Geneva [facility] Conversion Fruit Trimmer Cerner at 12/16/2022 10:48 AM CDT documented in this encounter Plan of Treatment Upcoming Encounters Date Type Department Care Team (Late st Contact Info) Description 11/03/2025 12:45 PM EST Office Visit [facility] Pulmonology - [address] [place] [address] Ben Barrios MD [address] [place] [address] documented as of this encounter Visit Diagnoses Not on filedocumented in this encounter Care Teams Asbestos Brake Lining Finisher Helper Relationship Specialty Start Date End Date Amie Pena MD [address] [place], [place] [address]alyssa [place] [address] PCP - General Family Medicine 10/31/22 04/08/23 Marvel Grayson MD [facility] [place] [address] PCP - General Family Medicine 05/17/23 Marvel Grayson [address] [place] [address] Family Practice 04/09/23 documented as of this encounter
--- OUTSIDE RECORDS SUMMARY | 2025-08-06 11:51 | XMS_ITS | Encounter Summary ---
Author Organization [facility] ([place], [place], [place], [place], [place]) Address [address] [place] [address] Care Team Providers Care Sales Development Associate Name Role Phone Amie Pena MD Primary Care Provider Marvel Grayson MD Primary Care Provider [phone] Encounter Details Date Type Department Care Team (Late st Contact Info) Description 07/07/2019 Transcribed Document [facility] [place] Family [place] [address] [place] [address] ProviderMik MD [address] [place] [address] Social History Tobacco Use Types Packs/Day Years Used Date Smoking Tobacco: Never Assessed Comments Unknown Sex and Gender Information Value Date Recorded Sex Assigned at Not on file Legal Sex Female 6:09 PM CDT Gender Identity Not on file Sexual Orientation Not on file documented as of this encounter Miscellaneous Notes * Cerner Conversion Note - Historical ProviderMD - 07/07/2019 11:16 AM SCREENER OPERATOR Initial Discharge Planning Entered On: 07/07/2019 11:21 EST Performed On: 07/07/2019 11:16 EST by Desiree Bennett, Global Account Director-Director Of Recruiting Initial Assessment I Previously Documented Living Environment : No qualifying data available. Living Situation : Home Patient Lives With : Sibling(s), Spouse Is the Patient a Caregiver at Home? 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 : Yes Does Patient have PCP Listed? : No Legal Guardian : No Desiree Bennett Social Worker-Director Of Recruiting - 07/07/2019 11:16 EST Initial Assessment II Sensory and Motor Deficits : None Current Home Treatments and Equipment : Cane, Nebulizer, Oxygen therapy Services and Community Resources Addl Comments : [employer] [phone] Desiree Bennett Social Worker-Director Of Recruiting - 07/07/2019 11:16 EST Discharge Needs I Anticipated Discharge To, CM : Home independently Current Home Treatment/Equipment : Current Home Treatment/Equipment No qualifying data available. Post Acute/Home Treatments : None Documentation Status Complete : Yes Desiree Bennett Social Worker-Director Of Recruiting - 07/07/2019 11:16 EST Discharge Needs II Professional Skilled Services : Professional Skilled Services No qualifying data available. Needs Assistance with Transportation : No Desiree Bennett Social Worker-Director Of Recruiting - 07/07/2019 11:16 EST Narrative Note Narrative Note : 07/07 Met with pt at the bedside. Pt reports she resides with her and sister. 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 Pt confirms she has home oxygen with portables provided by [employer]. Pt reports she plans to return home at discharge. Pt was agreeable to [facility] referral for assistance with obtaining PCP. Contacted [facility] and made referral. Desiree Bennett Social Worker-Director Of Recruiting - 07/07/2019 11:16 EST documented in this encounter Plan of Treatment Upcoming Encounters Date Type Department Care Team (Late st Contact Info) Description 11/03/2025 12:45 PM EST Office Visit [facility] Pulmonology - [address] [place] [address] Ben Barrios MD [address] [place] [address] documented as of this encounter Visit Diagnoses Not on filedocumented in this encounter Care Teams Sales Development Associate Relationship Specialty Start Date End Date Amie Pena MD [address] [place] [address] [place] [address] PCP - General Family Medicine 10/31/22 04/08/23 Marvel Grayson MD [address] [place] [address] [place] [address] PCP - General Family Medicine 05/17/23 Marvel Grayson [address] [place], [place] [address] Family Practice 04/09/23 documented as of this encounter
--- OUTSIDE RECORDS SUMMARY | 2025-08-06 11:51 | XMS_ITS | Encounter Summary ---
Author Organization [employer] ([place], [place], [place], [place], [place]) Address [address] [place] [address] Care Team Providers Care Class A Truck Driver Name Role Phone Amie Pena MD Primary Care Provider [phone] Marvel Grayson MD Primary Care Provider [phone] Encounter Details Date Type Department Care Team (Late st Contact Info) Description 07/06/2019 Transcribed Document [facility] [place] [address] [place] [address] ProviderMik MD [address] [place] [address] Social History Tobacco Use Types Packs/Day Years Used Date Smoking Tobacco: Never Assessed Comments Unknown Sex and Gender Information Value Date Recorded Sex Assigned at Not on file Legal Sex Female 6:09 PM CDT Gender Identity Not on file Sexual Orientation Not on file documented as of this encounter Miscellaneous Notes * Cerner Conversion Note - Historical ProviderMD - 07/06/2019 5:00 AM HOSIERY REPAIRER Chart Check - Review Order Profile Entered On: 07/06/2019 3:00 EST Performed On: 07/06/2019 5:00 EST by Max Pereyra, RN Chart Check Powerplans Initiated/Discontinued as Appropriate : Yes All Active Orders Reviewed : Yes Max Pereyra, RN - 07/06/2019 3:00 EST Electronically signed by Geneva [facility] Conversion Manager Agency Cerner at 12/16/2022 10:47 AM CDT documented in this encounter Plan of Treatment Upcoming Encounters Date Type Department Care Team (Late st Contact Info) Description 11/03/2025 12:45 PM EST Office Visit [facility] Pulmonology - [address] [place] [address] Ben Barrios MD [address] [place] [address] documented as of this encounter Visit Diagnoses Not on filedocumented in this encounter Care Teams Class A Truck Driver Relationship Specialty Start Date End Date Amie Pena MD [address] [place], [place] [address]al[place] [place] [address] PCP - General Family Medicine 10/31/22 04/08/23 Marvel Grayson MD [facility] [place] [address] PCP - General Family Medicine 05/17/23 Marvel Grayson [address] [place] [address] Family Practice 04/09/23 documented as of this encounter
--- OUTSIDE RECORDS SUMMARY | 2025-08-06 11:51 | XMS_ITS | Encounter Summary ---
Author Organization [employer] ([place], [place], [place], [place], [place]) Address [address] [place] [address] Care Team Providers Care Level Glass Vial Filler Name Role Phone Amie Pena MD Primary Care Provider [phone] Marvel Grayson MD Primary Care Provider [phone] Encounter Details Date Type Department Care Team (Late st Contact Info) Description 07/17/2019 Transcribed Document [facility] [place] [address] [place] [address] ProviderMik MD [address] [place] [address] Social History Tobacco Use Types Packs/Day [...] Mik Thorne MD - 07/17/2019 1:53 PM REDRYING MACHINE OPERATOR UM Authorization Entered On: 07/17/2019 13:53 EST Performed On: 07/17/2019 13:53 EST by FREDERIC PHAM RN-Utilization Review Primary Insurance Authorization Authorization and Policy Numbers : Insurance 1 Health Plan: [employer] Policy Number: [id number] Authorization Number: Insurance Primary Name : [facility] [id number] Authorization Status-Primary : Awaiting callback Reference Number-Primary : [id number] Authorization Number-Primary : [id number] Number of Days Authorized-Primary : 1 Day(s) Authorized Service Begin Date-Primary : 07/05/2019 EDT Authorized Service End Date-Primary : 07/06/2019 EDT Historical Authorization Comments-Primary : Comment 1: [facility] approved per website (FREDERIC PHAM RN-Utilization Review 07/17/2019 13:53) Comment 2: C auth still pending per website (FREDERIC PHAM RN-Utilization Review 07/15/2019 12:33) Comment 3: [employer] auth still pending per website (FREDERIC PHAM RN-Utilization Review 07/11/2019 12:51) Comment 4: Per DM, initial clinicals requested despite clinicals having been attached to auth on [facility] Portal. Clinicals faxed via [employer]. (SHAAN RICHTER Rn-Utilization Review 07/10/2019 15:26) Comment [...] 07/07/2019 13:48) Comment 9: Clinicals submitted via [facility] portal. (SHAAN RICHTER Rn-Utilization Review 07/06/2019 09:45) Comment 10: Reference number retrieved from [facility] portal. (SHAAN RICHTER Rn-Utilization Review 07/06/2019 09:37) FREDERIC PHAM RN-Utilization Review - 07/17/2019 13:53 EST documented in this encounter Plan of Treatment Upcoming Encounters Date Type Department Care Team (Late st Contact Info) Description 11/03/2025 12:45 PM EST Office Visit [facility] Pulmonology - [address] [place] [address] Ben Barrios MD [address] [place] [address] documented as of this encounter Visit Diagnoses Not on filedocumented in this encounter Care Teams Level Glass Vial Filler Relationship Specialty Start Date End Date Amie Pena MD [address] [place] [address] PCP - General Family Medicine 10/31/22 04/08/23 Marvel Grayson MD [address] [place] [address] PCP - General Family Medicine 05/17/23 Marvel Grayson [address] [place] [address] Family Practice 04/09/23 documented as of this encounter
--- OUTSIDE RECORDS SUMMARY | 2025-08-06 11:51 | XMS_ITS | Encounter Summary ---
Author Organization [employer] ([place], [place], [place], [place], [place]) Address [address] [place] [address] Care Team Providers Care Claims Adjuster Crop Name Role Phone Amie Pena MD Primary Care Provider [phone] Marvel Grayson MD Primary Care Provider [phone] Encounter Details Date Type Department Care Team (Late st Contact Info) Description 09/25/2018 Transcribed Document [facility] Radiology [address] [place] [address] Christina Carmen MD [facility] Dept [place] [address] Social History Tobacco Use Types Packs/Day Years [...] Years. Removal of ovarian cyst (SNOMED CT [id number]). I&D to left finger.. Family history: No [...] EST Height Source Stated Height Entry Format [place] Height/Length, [place]ONG [place]ER (ft) 5 ft Height/Length [place]ONG [place] 1 Inch CLINICALHEIGHT 154.94 cm [place] Body Weight 47.45 kg Weight Source, ED Critical estimated dosing weight Weight Entry Format [place] Weight Serbian lb 205 lb CLINICALWEIGHT 93.18 kg Body [...] ED Adult Triage: ED Clinical Reconciliation: ED health informatics specialist: Rapid Strep Screen: Prescriptions Prescribed azithromycin 500 [...] 17:23 EST, Discharge to: Home. Prescriptions: Prescription [facility]: azithromycin 500 mg oral tablet (Prescribe): 2 Tab, Oral, Daily, for 5 Day(s), 10 Tab, 0 Refill(s), Prescription [facility]: azithromycin 500 mg oral tablet (Prescribe): [...] Office Visit [facility] Pulmonology - [address] [place] [address] Ben Barrios MD [address] [place], [place] [address] documented as of this encounter Visit Diagnoses Not on filedocumented in this encounter Care Teams Claims Adjuster Crop Relationship Specialty Start Date End Date Faughn, Amie L, MD [address] [place] [address] [place] [address] PCP - General Family Medicine 10/31/22 04/08/23 Marvel Grayson MD [address] [place] [address] PCP - General Family Medicine 05/17/23 Marvel Grayson [address] [place] [address] Family Practice 04/09/23 documented as of this encounter
--- OUTSIDE RECORDS SUMMARY | 2025-08-06 11:51 | XMS_ITS | Encounter Summary ---
Author Organization [employer] ([place], [place], [place], [place], [place]) Address [address] [place] [address] Care Team Providers Care Radiation Monitor Name Role Phone Amie Pena MD Primary Care Provider [phone] Marvel Grayson MD Primary Care Provider [phone] Encounter Details Date Type Department Care Team (Late st Contact Info) Description 07/05/2019 Transcribed Document [facility] [place] [address] [place] [address] ProviderMik MD [address] [place] [address] Social History Tobacco Use Types Packs/Day [...] On: 07/05/2019 20:58 EDT by Marisol Panchal luggage liner Process Patient Disposition : Admit/Observe, Transfer Personal Belongings With Patient : Yes IV Discontinued : No Nursing Documentation Completed : Yes Marisol Panchal RN - 07/05/2019 20:58 EDT ED Discharge Discharge To : Acute care facility Name of Receiving Facility/Provider : [facility] Mode Of Departure : Ambulance/ALS Accompanied By : chief of staff doctor, Spouse Prescriptions Given to Patient : No Marisol Panchal RN - 07/05/2019 20:58 EDT Admission, ED Nurse Report Accepted By : Max Pereyra RN/ given by Leah Valentine RN Nurse Report Acceptance Time : 07/05/2019 19:48 EDT `Nurse Report (Hand Off) : Called Accompanied By, Discharge : chief of staff doctor Mode Of Departure : Ambulance/ALS Marisol Panchal RN - 07/05/2019 20:58 EDT Electronically signed by [place] [facility] Conversion Federal Air Marshal Cerner at 12/16/2022 10:41 AM CDT documented in this encounter Plan of Treatment Upcoming Encounters Date Type Department Care Team (Late st Contact Info) Description 11/03/2025 12:45 PM EST Office Visit [facility] Pulmonology - [address] [place] [address] Ben Barrios MD [address] [place] [address] documented as of this encounter Visit Diagnoses Not on filedocumented in this encounter Care Teams Radiation Monitor Relationship Specialty Start Date End Date Amie Pena MD [address] [place] [address] [place] [address] PCP - General Family Medicine 10/31/22 04/08/23 Marvel Grayson MD [address] [place] [address] [place] [address] PCP - General Family Medicine 05/17/23 Marvel Grayson [address] [place] [address] Family Practice 04/09/23 documented as of this encounter
--- OUTSIDE RECORDS SUMMARY | 2025-08-06 11:51 | XMS_ITS | Encounter Summary ---
Author Organization [employer] ([place], [place], [place], [place], [place]) Address [address] [place] [address] Care Team Providers Care Parent Partner Name Role Phone Amie Pena MD Primary Care Provider [phone] Marvel Grayson MD Primary Care Provider [phone] Encounter Details Date Type Department Care Team (Late st Contact Info) Description 10/29/2019 Transcribed Document [facility] [place] [address] [place] [address] ProviderMik MD [address] [place] [address] Social History Tobacco Use Types Packs/Day Years Used Date Smoking Tobacco: Never Assessed Comments Unknown Sex and Gender Information Value Date Recorded Sex Assigned at Not on file Legal Sex Female 6:09 PM CDT Gender Identity Not on file Sexual Orientation Not on file documented as of this encounter Miscellaneous Notes * Cerner Conversion Note - Mik ProviderMD - 10/29/2019 2:14 PM [employer] ED Assessment Entered On: 10/29/2019 14:34 EST [...] Communication Barrier : None Primary Language : Swedish Any Spiritual/Cultural Needs or Requests : No [...] Rhythm : Regular Nail Bed Color : [place] Detailed Cardiovascular Assessment : Open Candy Forman RN - 10/29/2019 14:31 EST Cardiovascular ASMT, Detailed Cardiac Rhythm Comment : pt c/o left sided chest pain that radiates to her L shoulder. pt denies SOA. 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 no cardiac hx per pt. pt aaox4 (Comment: resps even&nonlabored. skinpwd. [Candy Forman RN - 10/29/2019 14:31 EST] ) Candy Forman RN - 10/29/2019 14:31 EST Electronically signed by [place], [facility] Conversion Radio News Writer Cerner at 12/16/2022 10:38 AM CDT documented in this encounter Plan of Treatment Upcoming Encounters Date Type Department Care Team (Late st Contact Info) Description 11/03/2025 12:45 PM EST Office Visit [facility] Pulmonology - [address] [place] [address] Ben Barrios MD [address] [place] [address] documented as of this encounter Visit Diagnoses Not on filedocumented in this encounter Care Teams Parent Partner Relationship Specialty Start Date End Date Amie Pena MD [facility] [place] [address] PCP - General Family Medicine 10/31/22 04/08/23 Marvel Grayson MD [facility] [place] [address] PCP - General Family Medicine 05/17/23 Marvel Grayson [address] [place] [address] Family Practice 04/09/23 documented as of this encounter
--- OUTSIDE RECORDS SUMMARY | 2025-08-06 11:51 | XMS_ITS | Encounter Summary ---
Author Organization [employer] ([place], [place], [place], [place], [place]) Address [address] [place] [address] Care Team Providers Care Foreign Exchange Position Clerk Name Role Phone Amie Pena MD Primary Care Provider [phone] Marvel Grayson MD Primary Care Provider [phone] Encounter Details Date Type Department Care Team (Late st Contact Info) Description 07/07/2019 Transcribed Document [facility] [place] [facility] [place] [address] ProviderMik MD [address] [place] [address] Social History Tobacco Use Types Packs/Day Years Used Date Smoking Tobacco: Never Assessed Comments Unknown Sex and Gender Information Value Date Recorded Sex Assigned at Not on file Legal Sex Female 6:09 PM CDT Gender Identity Not on file Sexual Orientation Not on file documented as of this encounter Miscellaneous Notes * Cerner Conversion Note - Historical ProviderMD - 07/07/2019 12:30 PM MONEY MANAGER Care Management Assessment/Plan Entered On: 07/07/2019 12:31 EST Performed On: 07/07/2019 12:30 EST by Ana Duran Scheduler Care Management Note Documentation Status Complete : Yes Ana Duran Scheduler - 07/07/2019 12:30 EST Patient History Emergency Contact #1 : rommel Shabazz Emergency Contact #1 Phone Number : [phone] Emergency Contact #1 Relationship : Emergency Contact #2 : Rebeca Emergency Contact #2 Phone Number : [phone] Emergency Contact #2 Relationship : sister Living Situation : Home Patient Lives With : Sibling(s), Spouse Mobility Assistance Prior to Admission : Independent Professional Skilled Services : None Current Home Treatments : Nebulizer treatments Home Equipment : None 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 Took appt reminder and top precipitator operator pw to pt's room. Put appt info in discharge summary Follow-up Appointment Date #1 : 07/16/2019 14:00 EST Rach Duranraynavonda, Vp Director Of Creative Strategy - 07/07/2019 12:30 EST Electronically signed by [facility], [facility] Conversion Truck Railroad And Bus Motor Mechanic Cerner at 12/16/2022 10:37 AM CDT documented in this encounter Plan of Treatment Upcoming Encounters Date Type Department Care Team (Late st Contact Info) Description 11/03/2025 12:45 PM EST Office Visit [facility] Pulmonology - [address] [place] [address] Ben Barrios MD [address] [place] [address] documented as of this encounter Visit Diagnoses Not on filedocumented in this encounter Care Teams Foreign Exchange Position Clerk Relationship Specialty Start Date End Date Amie Pena MD [facility] [place] [address] PCP - General Family Medicine 10/31/22 04/08/23 Marvel Grayson MD [address] [place] [address] PCP - General Family Medicine 05/17/23 Marvel Grayson [address] [place] [address] Family Practice 04/09/23 documented as of this encounter
--- OUTSIDE RECORDS SUMMARY | 2025-08-06 11:51 | XMS_ITS | Encounter Summary ---
Author Organization [employer] ([place], [place], [place], [place], [place]) Address [address] [place] [address] Care Team Providers Care Box Packer Name Role Phone Amie Pena MD Primary Care Provider [phone] Marvel Grayson MD Primary Care Provider [phone] Encounter Details Date Type Department Care Team (Late st Contact Info) Description 07/07/2019 Transcribed Document [facility] [place] [address] [place] [address] ProviderMik MD [address] [place] [address] Social History Tobacco Use Types Packs/Day [...] Mik Thorne MD - 07/07/2019 12:52 PM CASCARA BARK CUTTER Patient Education Materials Follows: Spinal Fusion, Adult, Care After This sheet gives you information about how to care for yourself after your procedure. Your doctor may also give you more specific instructions. If you have problems or questions, contact your doctor. Follow these instructions at home: Medicines ??? Take bwsj-ptp-yclfyzw and prescription medicines only as told by [...] cannot use soap and water, use hand case folder. ? Change your bandage as told by [...] your pee (urine) pale yellow. ? Take tazp-nbk-tljmkcm or prescription medicines. ? Eat foods that [...] 12/14/2011 Document Revised: 12/04/2017 Document Reviewed: 12/04/2017 [employer] Interactive Patient Education ? 2019 [employer] Sciatica Sciatica is pain, numbness, weakness, [...] these instructions at home: Medicines ??? Take loxj-pou-hnznlzu and prescription medicines only as told by [...] 05/29/2009 Document Revised: 01/25/2017 Document Reviewed: 04/28/2016 [employer] Patient Education ? 2019 [employer] Peripheral Neuropathy Peripheral neuropathy is a [...] pain. Medicines may include: ? Prescription or ubqr-ogw-havzphq pain medicine. ? Antiseizure medicine. ? Antidepressants. ? Pain-relieving patches that are applied to painful areas of skin. ??? Surgery to relieve pressure on a nerve or to destroy a nerve that is causing pain. ??? Physical therapy to help improve movement and balance. ??? Devices to help you move around (assistive devices). Follow these instructions at home: Medicines ??? Take skau-ony-zxqgaee and prescription medicines only as told by [...] 08/10/2003 Document Revised: 10/29/2017 Document Reviewed: 10/29/2017 [employer] Interactive Patient Education ? 2019 [employer] Immunology Asthma Action Plan, Adult Introduction [...] for Disease Control and Prevention: www.cdc.gov/asthma ??? [place] [employer]: www.lung.org This information is not intended to replace advice given to you by your health care provider. Make sure you discuss any questions you have with your health care provider. Document Released: 06/17/2010 Document Revised: 05/01/2018 Document Reviewed: 05/01/2018 [employer] Interactive Patient Education ? 2019 [employer] Pulmonary Medicine Chronic Obstructive Pulmonary Disease [...] these instructions at home: Medicines ??? Take tpts-zsr-nuoaabk and prescription medicines (inhaled or pills) only [...] 05/30/2006 Document Revised: 02/13/2018 Document Reviewed: 09/24/2017 [employer] Interactive Patient Education ? 2019 [employer] Chronic Obstructive Pulmonary Disease Exacerbation Chronic [...] these instructions at home: Medicines ??? Take wslv-ypr-nfuwsbx and prescription medicines only as told by [...] and water are not available, use hand case folder. ??? During flu season, avoid enclosed spaces [...] 06/16/2008 Document Revised: 02/13/2018 Document Reviewed: 09/24/2017 [employer] Interactive Patient Education ? 2019 [employer] documented in this encounter Plan of Treatment Upcoming Encounters Date Type Department Care Team (Late st Contact Info) Description 11/03/2025 12:45 PM EST Office Visit [facility] Pulmonology - [address] [place] [address] Ben Barrios MD [address] [place] [address] documented as of this encounter Visit Diagnoses Not on filedocumented in this encounter Care Teams Box Packer Relationship Specialty Start Date End Date Amie Pena MD [address] [place] [address] [place] [address] PCP - General Family Medicine 10/31/22 04/08/23 Marvel Grayson MD [address] [place] [address] [place] [address] PCP - General Family Medicine 05/17/23 Marvel Grayson [address] [place] [address] Family Practice 04/09/23 documented as of this encounter
--- OUTSIDE RECORDS SUMMARY | 2025-08-06 11:51 | XMS_ITS | Encounter Summary ---
Author Organization [employer] ([place], [place], [place], [place], [place]) Address [address] [place] [address] Care Team Providers Care Spring Clipper Name Role Phone Amie Pena MD Primary Care Provider [phone] Marvel Grayson MD Primary Care Provider [phone] Encounter Details Date Type Department Care Team (Late st Contact Info) Description 07/13/2019 Transcribed Document [facility] Family Medicine [address] [place] [address] ProviderMik MD [address] [place] [address] Social History Tobacco Use Types Packs/Day [...] Mik Thorne MD - 07/13/2019 8:55 AM CAMERA REPAIRMAN Patient: PRATIK SHABAZZ Age: 48 years Sex: [...] COPD and fibromyalgia who was transferred from [facility] ER because of pneumonia. Patient states [...] of back surgery. No recent antibiotic. At [facility], she was tachycardic and sats [...] in stable confition back to home. ACC: [id number] ORDER: Culture MRSA Surveillance DATE: 07/06/2019 01:56 [...] Description 11/03/2025 12:45 PM EST Office Visit [facility] Pulmonology - [address] [place] [address] Ben Barrios MD [address] [place] [address] documented as of this encounter Visit Diagnoses Not on filedocumented in this encounter Care Teams Spring Clipper Relationship Specialty Start Date End Date Amie Pena MD [address] [place] [address] [place] [address] PCP - General Family Medicine 10/31/22 04/08/23 Marvel Grayson MD [address] [place] [address] PCP - General Family Medicine 05/17/23 Marvel Grayson [address] [place], [place] [address] Family Practice 04/09/23 documented as of this encounter
--- OUTSIDE RECORDS SUMMARY | 2025-08-06 11:51 | XMS_ITS | Encounter Summary ---
Author Organization [employer] ([place], [place], [place], [place], [place]) Address [address] [place] [address] Care Team Providers Care Leaf Stamper Name Role Phone Amie Pena MD Primary Care Provider [phone] Marvel Grayson MD Primary Care Provider [phone] Encounter Details Date Type Department Care Team (Late st Contact Info) Description 07/07/2019 Transcribed Document [facility] [place] Family Medicine [address] [place] [address] ProviderMik MD [address] [place] [address] Social History Tobacco Use Types Packs/Day Years Used Date Smoking Tobacco: Never Assessed Comments Unknown Sex and Gender Information Value Date Recorded Sex Assigned at Not on file Legal Sex Female 6:09 PM CDT Gender Identity Not on file Sexual Orientation Not on file documented as of this encounter Miscellaneous Notes * Cerner Conversion Note - Mik ProviderMD - 07/07/2019 1:48 PM MILLER HEAD ASSISTANT WET PROCESS UM Authorization Entered On: 07/07/2019 13:48 EST Performed On: 07/07/2019 13:48 EST by FREDERIC PHAM RN-Utilization Review Primary Insurance Authorization Authorization and Policy Numbers : Insurance 1 Health Plan: payworks Policy Number: [id number] Authorization Number: Insurance Primary Name : [employer] Authorization Status-Primary : Awaiting callback Reference Number-Primary : [id number] Authorized Service Begin Date-Primary : 07/05/2019 EDT Authorization Comments-Primary : [facility] auth still pending per website Historical Authorization Comments-Primary : Comment 1: Clinicals submitted via [facility] portal. (SHAAN RICHTER, Rn-Utilization Review 07/06/2019 09:45) Comment 2: Reference number retrieved from [facility] portal. (SHAAN RICHTER, Rn-Utilization Review 07/06/2019 09:37) FREDERIC PHAM RN-Utilization Review - 07/07/2019 13:48 EST Electronically signed by [place], [facility] Conversion Acquisition Cost Estimator Cerner at 12/16/2022 10:52 AM CDT documented in this encounter Plan of Treatment Upcoming Encounters Date Type Department Care Team (Late st Contact Info) Description 11/03/2025 12:45 PM EST Office Visit [facility] Pulmonology - [address] [place] [address] Ben Barrios MD [address] [place] [address] documented as of this encounter Visit Diagnoses Not on filedocumented in this encounter Care Teams Leaf Stamper Relationship Specialty Start Date End Date Amie Pena MD [address] [place] [address] [place] [address] PCP - General Family Medicine 10/31/22 04/08/23 Marvel Grayson MD [address] [place] [address] [place] [address] PCP - General Family Medicine 05/17/23 Marvel Grayson [address] [place], [place] [address] Family Practice 04/09/23 documented as of this encounter
--- OUTSIDE RECORDS SUMMARY | 2025-08-06 11:51 | XMS_ITS | Encounter Summary ---
Author Organization [employer] ([place], [place], [place], [place], [place]) Address [address] [place] [address] Care Team Providers Care Marble And Granite Polisher Name Role Phone Amie Pena MD Primary Care Provider [phone] Marvel Grayson MD Primary Care Provider [phone] Encounter Details Date Type Department Care Team (Late st Contact Info) Description 10/29/2019 Transcribed Document [facility] [place] [address] [place] [address] ProviderMik MD [address] [place] [address] Social History Tobacco Use Types Packs/Day Years Used Date Smoking Tobacco: Never Assessed Comments Unknown Sex and Gender Information Value Date Recorded Sex Assigned at Not on file Legal Sex Female 6:09 PM CDT Gender Identity Not on file Sexual Orientation Not on file documented as of this encounter Miscellaneous Notes * Cerner Conversion Note - Historical ProviderMD - 10/29/2019 2:14 PM MEAT PACKER ED Triage Entered On: 10/29/2019 14:18 EST Performed On: 10/29/2019 14:15 EST by Candy Forman, MUD TANK OPERATOR Triage Across the Room ED Vital Signs [...] EST DCP GENERIC CODE Tracking Group : [facility] Tracking Acuity : 2 - Emergent Candy Forman RN - 10/29/2019 14:15 EST Mode of Arrival : Ambulatory Transported to ED by : Ambulance/ALS EMS Service : [facility] To Room Via : Ambulate Accompanied By [...] 10/29/2019 14:18:32 EST) Problems(Active) Arthritis (SNOMED CT :0288604 ) Name of Problem: Arthritis ; Recorder: LASHANDA WEBER RN; Confirmation: Confirmed ; Classification: Patient Stated ; Code: [id number] ; Contributor System: PowerChart ; Last Updated: 02/13/2014 15:57 EDT ; Life Cycle Date: 02/13/2014 ; Life Cycle Status: Active ; Vocabulary: SNOMED CT Asthma (SNOMED CT :[id number] ) Name of Problem: Asthma ; Recorder: PANCHO SAEED RN; Confirmation: Confirmed ; Classification: Medical ; Code: [id number] ; Contributor System: PowerChart ; Last Updated: 02/12/2014 19:24 EDT ; Life Cycle Date: 11/28/2013 ; Life Cycle Status: Active ; Vocabulary: SNOMED CT Back pain (SNOMED CT :129825722 ) Name of Problem: Back pain ; Recorder: DENNISE ALVAREZ RN; Confirmation: Confirmed ; Classification: Medical ; Code: [id number] ; Contributor System: PowerChart ; Last Updated: 07/13/2014 14:28 EST ; Life Cycle Date: 07/13/2014 ; Life Cycle Status: Active ; Vocabulary: SNOMED CT COPD (chronic obstructive pulmonary disease) (SNOMED CT :91752243 ) Name of Problem: COPD (chronic obstructive pulmonary disease) ; Recorder: ALLA ZAPATA RN; Confirmation: Confirmed ; Classification: Medical ; Code: 49875505 ; Contributor System: PowerChart ; Last Updated: 04/11/2019 13:15 EDT ; Life Cycle Date: 04/11/2019 ; Life Cycle Status: Active ; Vocabulary: SNOMED CT COPD exacerbation (SNOMED CT :625655875 ) Name of Problem: COPD exacerbation ; Recorder: YURIY CASEY MD; Confirmation: Confirmed ; Classification: Medical ; Code: [id number] ; Contributor System: PowerChart ; Last Updated: 07/07/2019 11:33 EST ; Life Cycle Status: Active ; Responsible Provider: YURIY CASEY MD; Vocabulary: SNOMED CT Fibromyalgia (SNOMED CT :[id number] ) Name of Problem: Fibromyalgia ; Recorder: PANCHO SAEED RN; Confirmation: Confirmed ; Classification: Medical ; Code: [id number] ; Contributor System: PowerChart ; Last Updated: 02/12/2014 19:24 EDT ; Life Cycle Date: 11/28/2013 ; Life Cycle Status: Active ; Vocabulary: SNOMED CT H/O: hysterectomy (SNOMED CT :486796454 ) Name of Problem: H/O: hysterectomy ; Recorder: HOWARD HU RN; Confirmation: Confirmed ; Classification: Medical ; Code: 044962587 ; Contributor System: PowerChart ; Last Updated: 12/29/2016 21:54 EDT ; Life Cycle Date: 12/29/2016 ; Life Cycle Status: Active ; Vocabulary: SNOMED CT heart burn (SNOMED CT :89460321 ) Name of Problem: heart burn ; Recorder: MARIAN YAO RN; Confirmation: Confirmed ; Classification: Medical ; Code: 74134662 ; Contributor System: PowerChart ; Last Updated: 01/20/2019 18:21 EDT ; Life Cycle Date: 03/29/2015 ; Life Cycle Status: Active ; Vocabulary: SNOMED CT Irritable bowel syndrome (SNOMED CT :36467193 ) Name of Problem: Irritable bowel syndrome ; Recorder: Yi Hardy Rn; Confirmation: Confirmed ; Classification: Medical ; Code: 57329624 ; Contributor System: PowerChart ; Last Updated: 04/18/2019 6:31 EDT ; Life Cycle Date: 04/18/2019 ; Life Cycle Status: Active ; Vocabulary: SNOMED CT Migraine (SNOMED CT :62902093 ) Name of Problem: Migraine ; Recorder: Yi Hardy Rn; Confirmation: Confirmed ; Classification: Medical ; Code: 21463037 ; Contributor System: PowerChart ; Last Updated: 04/18/2019 6:30 EDT ; Life Cycle Date: 04/18/2019 ; Life Cycle Status: Active ; Vocabulary: SNOMED CT Peripheral neuropathy (SNOMED CT :383125861 ) Name of Problem: Peripheral neuropathy ; Recorder: Yi Hardy Rn; Confirmation: Confirmed ; Classification: Medical ; Code: 266158803 ; Contributor System: PowerChart ; Last Updated: 04/18/2019 6:32 EDT ; Life Cycle Date: 04/18/2019 ; Life Cycle Status: Active ; Vocabulary: SNOMED CT PTSD (post-traumatic stress disorder) (SNOMED CT :66159707 ) Name of Problem: PTSD (post-traumatic stress disorder) ; Recorder: MARIAN YAO RN; Confirmation: Confirmed ; Classification: Medical ; Code: 94606986 ; Contributor System: Fly VictorChart ; Last Updated: 03/29/2015 21:19 EDT ; Life Cycle Date: 03/29/2015 ; Life Cycle Status: Active ; Vocabulary: SNOMED CT Sciatica (SNOMED CT :37714697 ) Name of Problem: Sciatica ; Recorder: TRISH MCMAHON RN; Confirmation: Confirmed ; Classification: Medical ; Code: 33006371 ; Contributor System: [email or web address] ; Last Updated: 05/24/2015 17:38 EDT ; Life Cycle Date: 05/24/2015 ; Life Cycle Status: Active ; Vocabulary: SNOMED CT Diagnoses(Active) Chest pain Date: 10/29/2019 ; Diagnosis Type: Reason For Visit ; Confirmation: Complaint of ; Clinical Dx: Chest pain ; Classification: Medical ; Clinical Service: Non-Specified ; Code: PNED ; Probability: 0 ; Diagnosis Code: [id number] ED Height and Weight Height Source : Estimated Height Entry Format : [place] Height, Feet : 5 ft(Converted to: 152 cm, 60 Inch) Height, Inches : 11 Inch(Converted to: 0 ft 11 Inch, 27.94 cm) Clinical Height : 180.34 cm Weight Source, ED : Critical estimated dosing weight Weight Entry Format : [place] Weight, Pounds : 200 lb Clinical Dosing Weight : 90.91 kg Body Surface Area (BSA) : 2.11 m2 Body Mass Index : 28 kg/m2 (HI) [place] Body Weight (IBW) : 70.31 kg Candy [...] Description 11/03/2025 12:45 PM EST Office Visit [facility] Pulmonology - [address] [place] [phone] Ben Barrios MD [address] [place], [place] [address] documented as of this encounter Visit Diagnoses Not on filedocumented in this encounter Care Teams Marble And Granite Polisher Relationship Specialty Start Date End Date Amie Pena MD [address] [place] [address] [place] [address] PCP - General Family Medicine 10/31/22 04/08/23 Marvel Grayson MD [address] [place] [address] [place] [address] PCP - General Family Medicine 05/17/23 Marvel Grayson [address] [place] [address] Family Practice 04/09/23 documented as of this encounter
--- OUTSIDE RECORDS SUMMARY | 2025-08-06 11:51 | XMS_ITS | Encounter Summary ---
Author Organization [employer] ([place], [place], [place], [place], [place]) Address [address] [place] [address] Care Team Providers Care Rivet Hammer Machine Operator Name Role Phone Amie Pena MD Primary Care Provider [phone] Marvel Grayson MD Primary Care Provider [phone] Encounter Details Date Type Department Care Team (Late st Contact Info) Description 07/11/2019 Transcribed Document [facility] [place] [address] [place] [address] ProviderMik MD [address] [place] [address] Social History Tobacco Use Types Packs/Day Years Used Date Smoking Tobacco: Never Assessed Comments Unknown Sex and Gender Information Value Date Recorded Sex Assigned at Not on file Legal Sex Female 6:09 PM CDT Gender Identity Not on file Sexual Orientation Not on file documented as of this encounter Miscellaneous Notes * Cerner Conversion Note - Mik ProviderMD - 07/11/2019 12:51 PM DROP FORGE OPERATOR UM Authorization Entered On: 07/11/2019 12:52 EST Performed On: 07/11/2019 12:51 EST by FREDERIC PHAM RN-Utilization Review Primary Insurance Authorization Authorization and Policy Numbers : Insurance 1 Health Plan: [employer] Policy Number: [id number] Authorization Number: Insurance Primary Name : [employer] Authorization Status-Primary : Awaiting callback Reference Number-Primary : [id number] Authorized Service Begin Date-Primary : 07/05/2019 EDT Authorization Comments-Primary : [facility] auth still pending per website Historical Authorization Comments-Primary : Comment 1: Per DM, initial clinicals requested despite clinicals having been attached to auth on [facility] Portal. Clinicals faxed via [employer]. (SHAAN RICHTER Rn-Utilization Review 07/10/2019 15:26) Comment 2: [facility] auth still pending per website (FREDERIC PHAM RN-Utilization Review 07/10/2019 10:04) Comment 3: [facility] auth still pending per website (FREDERIC PHAM RN-Utilization Review 07/09/2019 09:54) Comment 4: [facility] auth still pending per website (FREDERIC PHAM RN-Utilization Review 07/08/2019 13:30) Comment 5: [facility] auth still pending per website (FREDERIC PHAM RN-Utilization Review 07/07/2019 13:48) Comment 6: Clinicals submitted via [facility] portal. (SHAAN RICHTER Rn-Utilization Review 07/06/2019 09:45) Comment 7: Reference number retrieved from [facility] portal. (SHAAN RICHTER Rn-Utilization Review 07/06/2019 09:37) FREDERIC PHAM RN-Utilization Review - 07/11/2019 12:51 EST documented in this encounter Plan of Treatment Upcoming Encounters Date Type Department Care Team (Late st Contact Info) Description 11/03/2025 12:45 PM EST Office Visit [facility] Pulmonology - [address] [place] [id number] Ben Barrios MD [address] [place] [address] documented as of this encounter Visit Diagnoses Not on filedocumented in this encounter Care Teams Rivet Hammer Machine Operator Relationship Specialty Start Date End Date Amie Pena MD [facility] [place] [address] PCP - General Family Medicine 10/31/22 04/08/23 Marvel Grayson MD [address] [place] [address] [place] [address] PCP - General Family Medicine 05/17/23 Marvel Grayson [address] [place] [address] Family Practice 04/09/23 documented as of this encounter
--- OUTSIDE RECORDS SUMMARY | 2025-08-06 11:51 | XMS_ITS | Encounter Summary ---
Author Organization [employer] ([place], [place], [place], [place], [place]) Address [address] [place] [address] Care Team Providers Care Driver Sales Name Role Phone Amie Pena MD Primary Care Provider [phone] Marvel Grayson MD Primary Care Provider [phone] Encounter Details Date Type Department Care Team (Late st Contact Info) Description 10/29/2019 Transcribed Document [facility] [place] [address] [place] [address] ProviderMik MD [address] [place] [address] Social History Tobacco Use Types Packs/Day Years Used Date Smoking Tobacco: Never Assessed Comments Unknown Sex and Gender Information Value Date Recorded Sex Assigned at Not on file Legal Sex Female 6:09 PM CDT Gender Identity Not on file Sexual Orientation Not on file documented as of this encounter Miscellaneous Notes * Cerner Conversion Note - Historical ProviderMD - 10/29/2019 5:47 PM CUSTOMER COUNTER REPRESENTATIVE CR Chest 1 Vw Portable Ordered: 10/29/2019 Modified Reason for Exam: chest pain 10/29/2019 16:38 10/29/2019 17:47 (WARD NICK) No further action required documented in this encounter Plan of Treatment Upcoming Encounters Date Type Department Care Team (Late st Contact Info) Description 11/03/2025 12:45 PM EST Office Visit [facility] Pulmonology - [address] [place] [address] Ben Barrios MD [address] [place], [place] [id number] documented as of this encounter Visit Diagnoses Not on filedocumented in this encounter Care Teams Driver Sales Relationship Specialty Start Date End Date Amie Pena MD [address] [place] [address] PCP - General Family Medicine 10/31/22 04/08/23 Marvel Grayson MD [address] [place] [address] [place] [address] PCP - General Family Medicine 05/17/23 Marvel Grayson [address] [place] [address] Family Practice 04/09/23 documented as of this encounter
--- OUTSIDE RECORDS SUMMARY | 2025-08-06 11:51 | XMS_ITS | Encounter Summary ---
Author Organization [employer] ([place], [place], [place], [place], [place]) Address [address] [place] [address] Care Team Providers Care Project Controller Name Role Phone Amie Pena MD Primary Care Provider [phone] Marvel Grayson MD Primary Care Provider [phone] Encounter Details Date Type Department Care Team (Late st Contact Info) Description 07/10/2019 Transcribed Document [facility] [place] Family Medicine [address] [place] [address] ProviderMik MD [address] [place] [address] Social History Tobacco Use Types Packs/Day [...] Mik Thorne MD - 07/10/2019 10:04 AM SHIP PILOT UM Authorization Entered On: 07/10/2019 10:04 EST Performed On: 07/10/2019 10:04 EST by FREDERIC PHAM RN-Utilization Review Primary Insurance Authorization Authorization and Policy Numbers : Insurance 1 Health Plan: [employer] Policy Number: [id number] Authorization Number: Insurance Primary Name : [employer] Authorization Status-Primary : Awaiting callback Reference Number-Primary : [id number] Authorized Service Begin Date-Primary : 07/05/2019 EDT Authorization Comments-Primary : [facility] auth still pending per website Historical Authorization Comments-Primary : Comment 1: [facility] auth still pending per website (FREDERIC PHAM RN-Utilization Review 07/09/2019 09:54) Comment 2: [facility] auth still pending per website (FREDERIC PHAM RN-Utilization Review 07/08/2019 13:30) Comment 3: [facility] auth still pending per website (FREDERIC PHAM RN-Utilization Review 07/07/2019 13:48) Comment 4: Clinicals submitted via [facility] portal. (SHAAN RICHTER, Rn-Utilization Review 07/06/2019 09:45) Comment 5: Reference number retrieved from [facility] portal. (SHAAN RICHTER Rn-Utilization Review 07/06/2019 09:37) FREDERIC PHAM RN-Utilization Review - 07/10/2019 10:04 EST Electronically signed by [facility] Conversion Rn Transitional Cerner at 12/16/2022 10:41 AM CDT documented in this encounter Plan of Treatment Upcoming Encounters Date Type Department Care Team (Late st Contact Info) Description 11/03/2025 12:45 PM EST Office Visit [facility] Pulmonology - [address] [place] [address] Ben Barrios MD [address] [place] [address] documented as of this encounter Visit Diagnoses Not on filedocumented in this encounter Care Teams Project Controller Relationship Specialty Start Date End Date Amie Pena MD [facility] [place] [address] PCP - General Family Medicine 10/31/22 04/08/23 Mravel Grayson MD [facility] [place] [address] PCP - General Family Medicine 05/17/23 Marvel Grayson [address] [place] [address] Family Practice 04/09/23 documented as of this encounter
--- OUTSIDE RECORDS SUMMARY | 2025-08-06 11:51 | XMS_ITS | Encounter Summary ---
Author Organization [employer] ([place], [place], [place], [place], [place]) Address [address] [place] [address] Care Team Providers Care Meter/Relay Craftsman Name Role Phone Amie Pena MD Primary Care Provider [phone] Marvel Grayson MD Primary Care Provider [phone] Encounter Details Date Type Department Care Team (Late st Contact Info) Description 07/07/2019 Transcribed Document [facility] [place] [address] [place] [address] ProviderMik MD [address] [place] [address] Social History Tobacco Use Types Packs/Day Years Used Date Smoking Tobacco: Never Assessed Comments Unknown Sex and Gender Information Value Date Recorded Sex Assigned at Not on file Legal Sex Female 6:09 PM CDT Gender Identity Not on file Sexual Orientation Not on file documented as of this encounter Miscellaneous Notes * Cerner Conversion Note - Historical ProviderMD - 07/07/2019 3:13 PM ASPARAGUS BUNCHER Nursing Discharge Summary Entered On: 07/07/2019 15:13 EST Performed On: 07/07/2019 15:13 EST by Vy Salazar supervisor home energy consultant Documentation Discharge Date/Time : 07/07/2019 13:47 EST [...] - 07/07/2019 15:13 EST Electronically signed by [facility], [facility] Conversion Ore Fielder Cerner at 12/16/2022 10:50 AM CDT documented in this encounter Plan of Treatment Upcoming Encounters Date Type Department Care Team (Late st Contact Info) Description 11/03/2025 12:45 PM EST [facility] Pulmonology - [address] [place] [address] Ben Barrios MD [address] [place] [address] documented as of this encounter Visit Diagnoses Not on filedocumented in this encounter Care Teams Meter/Relay Craftsman Relationship Specialty Start Date End Date Amie Pena MD [address] [place] [address] [place] [address] PCP - General Family Medicine 10/31/22 04/08/23 Marvel Grayson MD [address] [place] [address] [place] [address] PCP - General Family Medicine 05/17/23 Marvel Grayson [address] [place] [address] Family Practice 04/09/23 documented as of this encounter
--- OUTSIDE RECORDS SUMMARY | 2025-08-06 11:51 | XMS_ITS | Encounter Summary ---
Author Organization [employer] ([place], [place], [place], [place], [place]) Address [address] [place] [address] Care Team Providers Care Pulp Cooker Name Role Phone Amie Pena MD Primary Care Provider [phone] Marvel Grayson MD Primary Care Provider [phone] Encounter Details Date Type Department Care Team (Late st Contact Info) Description 07/10/2019 Transcribed Document [facility] [address] [place] [address] Provider, Karthikeyan Houser MD Social History Tobacco Use Types Packs/Day Years Used Date Smoking Tobacco: Never Assessed Comments Unknown Sex and Gender Information Value Date Recorded Sex Assigned at Not on file Legal Sex Female 6:09 PM CDT Gender Identity Not on file Sexual Orientation Not on file documented as of this encounter Miscellaneous Notes * Cerner Conversion Note - [facility] Mik Thorne MD - 07/10/2019 4:26 PM EST UM Authorization Entered On: 07/10/2019 15:27 EST Performed On: 07/10/2019 15:26 EST by SHAAN RICHTER Rn-Utilization Review Primary Insurance Authorization Authorization and Policy Numbers : Insurance 1 Health Plan: [employer] Policy Number: [id number] Authorization Number: Insurance Primary Name : [facility] Authorization Status-Primary : Awaiting callback Reference Number-Primary : [id number] Authorized Service Begin Date-Primary : 07/05/2019 EDT Authorization Comments-Primary : Per DM, initial clinicals requested despite clinicals having been attached to auth on [facility] Portal. Clinicals faxed via [employer]. Historical Authorization Comments-Primary : Comment 1: [facility] auth still pending per website (FREDERIC PHAM RN-Utilization Review 07/10/2019 10:04) Comment 2: [facility] auth still pending per website (FREDERIC PHAM RN-Utilization Review 07/09/2019 09:54) Comment 3: [facility] auth still pending per website (FREDERIC PHAM RN-Utilization Review 07/08/2019 13:30) Comment 4: [facility] auth still pending per website (FREDERIC PHAM RN-Utilization Review 07/07/2019 13:48) Comment 5: Clinicals submitted via [facility] portal. (SAHAN RICHTER Rn-Utilization Review 07/06/2019 09:45) Comment 6: Reference number retrieved from [facility] portal. (SHAAN RICHTER Rn-Utilization Review 07/06/2019 09:37) SHAAN RICHTER Rn-Utilization Review - 07/10/2019 15:26 EST documented in this encounter Plan of Treatment Upcoming Encounters Date Type Department Care Team (Late st Contact Info) Description 11/03/2025 12:45 PM EST Office Visit [facility] Pulmonology - [address] [place] [address] Ben Barrios MD [address] [place] [address] documented as of this encounter Visit Diagnoses Not on filedocumented in this encounter Care Teams Pulp Cooker Relationship Specialty Start Date End Date Amie Pena MD [address] [place] [address] PCP - General Family Medicine 10/31/22 04/08/23 Marvel Grayson MD [address] [place] [address] PCP - General Family Medicine 05/17/23 Marvel Grayson [facility] [place] [address] Family Practice 04/09/23 documented as of this encounter
--- OUTSIDE RECORDS SUMMARY | 2025-08-06 11:51 | XMS_ITS | Encounter Summary ---
Author Organization [employer] ([place], [place], [place], [place], [place]) Address [address] [place] [address] Care Team Providers Care Hide Splitter Name Role Phone Amie Pena MD Primary Care Provider [phone] Marvel Grayson MD Primary Care Provider [phone] Encounter Details Date Type Department Care Team (Late st Contact Info) Description 07/10/2019 Transcribed Document [facility] [place] Medicine [address] [place] [address] ProviderMik MD [address] [place] [address] Social History Tobacco Use Types Packs/Day Years Used Date Smoking Tobacco: Never Assessed Comments Unknown Sex and Gender Information Value Date Recorded Sex Assigned at Not on file Legal Sex Female 6:09 PM CDT Gender Identity Not on file Sexual Orientation Not on file documented as of this encounter Miscellaneous Notes * Cerner Conversion Note - Historical ProviderMD - 07/10/2019 3:25 PM CENTRAL OFFICE TROUBLE SHOOTER easement worker Form Entered On: 07/10/2019 15:25 EST Performed On: 07/10/2019 15:25 EST by SHAAN RICHTER Rn-Utilization Review UM Additional Information UM Additional Comment : REFAX OF CLINICALS. CLINICALS ORIGINALLY ATTACHED TO AUTH REQUEST IN [facility] PORTAL ON 07/06/19 SHAAN RICHTER Rn-Utilization Review - 07/10/2019 15:25 EST Electronically signed by Interface, Sjh Conversion Air Launch Weapons Technician Cerner at 12/16/2022 10:52 AM CDT documented in this encounter Plan of Treatment Upcoming Encounters Date Type Department Care Team (Late st Contact Info) Description 11/03/2025 12:45 PM EST Office Visit [facility] Pulmonology - [address] [place] [address] Ben Barrios MD [address] [place] [address] documented as of this encounter Visit Diagnoses Not on filedocumented in this encounter Care Teams Hide Splitter Relationship Specialty Start Date End Date Amie Pena MD [address] [place] [address] [place] [address] PCP - General Family Medicine 10/31/22 04/08/23 Marvel Grayson MD [facility] [place] [address] PCP - General Family Medicine 05/17/23 Marvel Grayson [address] [place] [address] Family Practice 04/09/23 documented as of this encounter
--- OUTSIDE RECORDS SUMMARY | 2025-08-06 11:51 | XMS_ITS | Encounter Summary ---
Author Organization [employer] ([place], [place], [place], [place], [place]) Address [address] [place] [address] Care Team Providers Care Chairman Ceo Name Role Phone Amie Pena MD Primary Care Provider [phone] Marvel Grayson MD Primary Care Provider [phone] Encounter Details Date Type Department Care Team (Late st Contact Info) Description 07/07/2019 Transcribed Document [facility] [place] [address] [place] [address] ProviderMik MD [address] [place] [address] Social History Tobacco Use Types Packs/Day Years Used Date Smoking Tobacco: Never Assessed Comments Unknown Sex and Gender Information Value Date Recorded Sex Assigned at Not on file Legal Sex Female 6:09 PM CDT Gender Identity Not on file Sexual Orientation Not on file documented as of this encounter Miscellaneous Notes * [employer]ner Conversion Note - Mik ProviderMD - 07/07/2019 1:27 PM SUPERVISOR GREEN END DEPARTMENT Final Discharge Planning Entered On: 07/07/2019 13:27 EST Performed On: 07/07/2019 13:27 EST by Desiree Bennett, Chrome Tanner-International Marketing Coordinator Final Discharge Planning Discharge Arrangements : Patient [...] : Yes Discharge To Care Management : Home/Residential/Long-Term or Self Care -01 Desiree Bennett, Chrome Tanner-International Marketing Coordinator - 07/07/2019 13:27 EST Electronically signed by [facility] Conversion Occ Med Physician Cerner at 12/16/2022 10:42 AM CDT documented in this encounter Plan of Treatment Upcoming Encounters Date Type Department Care Team (Late st Contact Info) Description 11/03/2025 12:45 PM EST Office Visit [facility] Pulmonology - [address] [place] [address] Ben Barrios MD [address] [place] [address] documented as of this encounter Visit Diagnoses Not on filedocumented in this encounter Care Teams Chairman Ceo Relationship Specialty Start Date End Date Amie Pena MD [address] [place] [address] [place] [address] PCP - General Family Medicine 10/31/22 04/08/23 Marvel Grayson MD [address] [place] [address] PCP - General Family Medicine 05/17/23 Marvel Grayson [address] [place] [address] Family Practice 04/09/23 documented as of this encounter
--- OUTSIDE RECORDS SUMMARY | 2025-08-06 11:51 | XMS_ITS | Encounter Summary ---
Author Organization [employer] ([place], [place], [place], [place], [place]) Address [address] [place] [address] Care Team Providers Care Wireless Development Manager Name Role Phone Amie Pena MD Primary Care Provider [phone] Marvel Grayson MD Primary Care Provider [phone] Encounter Details Date Type Department Care Team (Late st Contact Info) Description 07/17/2019 Transcribed Document [facility] [place] [address] [place] [address] ProviderMik MD [address] [place] [address] Social History Tobacco Use Types Packs/Day [...] Mik Thorne MD - 07/17/2019 1:53 PM SUPERVISOR INSPECTION UM Authorization Entered On: 07/17/2019 13:53 EST Performed On: 07/17/2019 13:53 EST by FREDERIC PHAM RN-Utilization Review Primary Insurance Authorization Authorization and Policy Numbers : Insurance 1 Health Plan: [employer] Policy Number: [id number] Authorization Number: Insurance Primary Name : [employer] Authorization Status-Primary : Awaiting callback Reference Number-Primary : [id number] Number of Days Authorized-Primary : 1 Day(s) Authorized Service Begin Date-Primary : 07/05/2019 EDT Authorized Service End Date-Primary : 07/06/2019 EDT Authorization Comments-Primary : [facility] approved per website Historical Authorization Comments-Primary : Comment 1: [employer] auth still pending per website (FREDERIC PHAM RN-Utilization Review 07/15/2019 12:33) Comment 2: [employer] auth still pending per website (FREDERIC PHAM RN-Utilization Review 07/11/2019 12:51) Comment 3: Per DM, initial clinicals requested despite clinicals having been attached to auth on [facility] Portal. Clinicals faxed via [employer]. (SHAAN RICHTER Rn-Utilization Review 07/10/2019 15:26) Comment [...] 07/07/2019 13:48) Comment 8: Clinicals submitted via [facility] portal. (SHAAN RICHTER Rn-Utilization Review 07/06/2019 09:45) Comment 9: Reference number retrieved from [facility] portal. (SHAAN RICHTER Rn-Utilization Review 07/06/2019 09:37) FREDERIC PHAM RN-Utilization Review - 07/17/2019 13:53 EST documented in this encounter Plan of Treatment Upcoming Encounters Date Type Department Care Team (Late st Contact Info) Description 11/03/2025 12:45 PM EST Office Visit [facility] Pulmonology - [address] [place] [phone] Ben Barrios MD [address] [place] [address] documented as of this encounter Visit Diagnoses Not on filedocumented in this encounter Care Teams Wireless Development Manager Relationship Specialty Start Date End Date Amie Pena MD [address] [place] [address] [place] [address] PCP - General Family Medicine 10/31/22 04/08/23 Marvel Grayson MD [address] [place] [address] [place] [address] PCP - General Family Medicine 05/17/23 Marvel Grayson [address] [place] [address] Family Practice 04/09/23 documented as of this encounter
--- OUTSIDE RECORDS SUMMARY | 2025-08-06 11:51 | XMS_ITS | Encounter Summary ---
Author Organization [employer] ([place], [place], [place], [place], [place]) Address [address] [place] [address] Care Team Providers Care Licensed Audiologist Name Role Phone Amie Pena MD Primary Care Provider [phone] Marvel Grayson MD Primary Care Provider [phone] Encounter Details Date Type Department Care Team (Late st Contact Info) Description 07/09/2019 Transcribed Document [facility] [place] [address] [place] [address] ProviderMik MD [address] [place] [address] Social History Tobacco Use Types Packs/Day [...] Mik Thorne MD - 07/09/2019 9:54 AM GRAB OPERATOR UM Authorization Entered On: 07/09/2019 9:54 EST Performed On: 07/09/2019 9:54 EST by FREDERIC PHAM RN-Utilization Review Primary Insurance Authorization Authorization and Policy Numbers : Insurance 1 Health Plan: [employer] Policy Number: [id number] Authorization Number: Insurance Primary Name : [employer] Authorization Status-Primary : Awaiting callback Reference Number-Primary : [id number] Authorized Service Begin Date-Primary : 07/05/2019 EDT Authorization Comments-Primary : [facility] auth still pending per website Historical Authorization Comments-Primary : Comment 1: [facility] auth still pending per website (FREDERIC PHAM RN-Utilization Review 07/08/2019 13:30) Comment 2: [facility] auth still pending per website (FREDERIC PHAM RN-Utilization Review 07/07/2019 13:48) Comment 3: Clinicals submitted via [facility] portal. (SHAAN RICHTER Rn-Utilization Review 07/06/2019 09:45) Comment 4: Reference number retrieved from [facility] portal. (SHAAN RICHTER Rn-Utilization Review 07/06/2019 09:37) FREDERIC PHAM RN-Utilization Review - 07/09/2019 9:54 EST Electronically signed by [facility] Conversion Shoe Sprayer Cerner at 12/16/2022 10:41 AM CDT documented in this encounter Plan of Treatment Upcoming Encounters Date Type Department Care Team (Late st Contact Info) Description 11/03/2025 12:45 PM EST Office Visit [facility] Pulmonology - [address] [place] [address] Ben Barrios MD [address] [place] [address] documented as of this encounter Visit Diagnoses Not on filedocumented in this encounter Care Teams Licensed Audiologist Relationship Specialty Start Date End Date Amie Pena MD [facility] [address] PCP - General Family Medicine 10/31/22 04/08/23 Marvel Grayson MD [address] [place] [place] [address] PCP - General Family Medicine 05/17/23 Marvel Grayson [address] [place] [address] Family Practice 04/09/23 documented as of this encounter
--- OUTSIDE RECORDS SUMMARY | 2025-08-06 11:51 | XMS_ITS | Encounter Summary ---
Author Organization [employer] ([place], [place], [place], [place], [place]) Address [address] [place] [address] Care Team Providers Care Equipment Cleaner And Tester Name Role Phone Amie Pena MD Primary Care Provider [phone] Marvel Grayson MD Primary Care Provider [phone] Encounter Details Date Type Department Care Team (Late st Contact Info) Description 07/06/2019 Transcribed Document [facility] [place] [facility] [address] [place] [address] ProviderMik MD [address] [place] [address] Social History Tobacco Use Types Packs/Day Years Used Date Smoking Tobacco: Never Assessed Comments Unknown Sex and Gender Information Value Date Recorded Sex Assigned at Not on file Legal Sex Female 6:09 PM CDT Gender Identity Not on file Sexual Orientation Not on file documented as of this encounter Miscellaneous Notes * Cerner Conversion Note - Mik ProviderMD - 07/06/2019 10:30 AM CDL TEAM TRUCK DRIVER Treatment Intervention, PT Entered On: 07/07/2019 11:10 [...] Therapy Diagnosis, PT : Reduced Mobility IKE ARIASALEXANDER - 07/07/2019 11:06 EST Admission Date : 07/05/2019 21:24 KLEVER ARIASALEXANDER DODSON 07/07/2019 12:23 EST Assisted by, PT : Occupational Therapist IKE ARIAS PTA - 07/07/2019 11:06 EST Personal Devices : Personal Devices No Devices Recorded Assistive Devices : Assistive Devices No Devices Recorded JUANA IKE [facility] 07/07/2019 12:23 EST General Status Patient Received [...] Yes IKE ARIASALEXANDER - 07/07/2019 11:06 EST Prison Goals Other PT LTG Grid Goal #1 [...] IKE ARIASALEXANDER - 07/07/2019 11:06 EST IKE ARIAS, TIMING ADJUSTER - 07/07/2019 11:06 EST Treatment Note Patient's [...] Each 15 Min : 1 IKE ARIAS, TIMING ADJUSTER - 07/07/2019 11:06 EST Electronically signed by Karthikeyan Bean Conversion Health Information Manager Cerner at 12/16/2022 10:50 AM CDT documented in this encounter Plan of Treatment Upcoming Encounters Date Type Department Care Team (Late st Contact Info) Description 11/03/2025 12:45 PM EST Office Visit [facility] Pulmonology - [address] [place] [address] Ben Barrios MD [address] [place] [address] documented as of this encounter Visit Diagnoses Not on filedocumented in this encounter Care Teams Equipment Cleaner And Tester Relationship Specialty Start Date End Date Amie Pena MD [address] [facility] [place] [address] PCP - General Family Medicine 10/31/22 04/08/23 Marvel Grayson MD [address] [place] [address] PCP - General Family Medicine 05/17/23 Marvel Grayson [address] [place] [address] Family Practice 04/09/23 documented as of this encounter
--- OUTSIDE RECORDS SUMMARY | 2025-08-06 11:51 | XMS_ITS | Encounter Summary ---
Author Organization [employer] ([place], [place], [place], [place], [place]) Address [address] [place] [address] Care Team Providers Care Client Services Coordinator Name Role Phone Amie Pena MD Primary Care Provider [phone] Marvel Grayson MD Primary Care Provider [phone] Encounter Details Date Type Department Care Team (Late st Contact Info) Description 07/07/2019 Transcribed Document [facility] [place] Family Medicine [address] [place] [address] ProviderMik MD [address] [place] [address] Social History Tobacco Use Types Packs/Day Years Used Date Smoking Tobacco: Never Assessed Comments Unknown Sex and Gender Information Value Date Recorded Sex Assigned at Not on file Legal Sex Female 6:09 PM CDT Gender Identity Not on file Sexual Orientation Not on file documented as of this encounter Miscellaneous Notes * Cerner Conversion Note - Historical ProviderMD - 07/07/2019 2:00 AM BUSINESS [employer]CHO[employer] DEAN Pearl Stringer Details Entered On: 07/07/2019 0:54 EST Performed [...] 07/07/2019 0:54 EST Electronically signed by [place], [facility] Conversion Research Executive Cerner at 12/16/2022 10:36 AM CDT documented in this encounter Plan of Treatment Upcoming Encounters Date Type Department Care Team (Late st Contact Info) Description 11/03/2025 12:45 PM EST Office Visit [facility] Pulmonology - [address] [place] [address] Ben Barrios MD [address] [place] [address] documented as of this encounter Visit Diagnoses Not on filedocumented in this encounter Care Teams Client Services Coordinator Relationship Specialty Start Date End Date Amie Pena MD [address] [facility] [place] [address] PCP - General Family Medicine 10/31/22 04/08/23 Marvel Grayson MD [address] [place] [address] PCP - General Family Medicine 05/17/23 Marvel Grayson [address] [place] [address] Family Practice 04/09/23 documented as of this encounter
--- OUTSIDE RECORDS SUMMARY | 2025-08-06 11:51 | XMS_ITS | Encounter Summary ---
Author Organization [employer] ([place], [place], [place], [place], [place]) Address [address] [place] [address] Care Team Providers Care Bicycle Repair Technician Name Role Phone Amie ePna MD Primary Care Provider [phone] Marvel Grayson MD Primary Care Provider [phone] Encounter Details Date Type Department Care Team (Late st Contact Info) Description 10/29/2019 Transcribed Document [facility] Family Medicine [address] [place] [address] ProviderMik MD [address] [place] [address] Social History Tobacco Use Types Packs/Day Years Used Date Smoking Tobacco: Never Assessed Comments Unknown Sex and Gender Information Value Date Recorded Sex Assigned at Not on file Legal Sex Female 6:09 PM CDT Gender Identity Not on file Sexual Orientation Not on file documented as of this encounter Miscellaneous Notes * Cerner Conversion Note - Mik ProviderMD - 10/29/2019 5:54 PM OPERATING ROOM TECHNICIAN ED Discharge Entered On: 10/29/2019 17:54 EST [...] 10/29/2019 17:54 EST Electronically signed by [place] [facility] Conversion Railroad Repairer Cerner at 12/16/2022 10:40 AM CDT documented in this encounter Plan of Treatment Upcoming Encounters Date Type Department Care Team (Late st Contact Info) Description 11/03/2025 12:45 PM EST Office Visit [facility] Pulmonology - [address] [place] [address] Ben Barrios MD [address] [place] [address] documented as of this encounter Visit Diagnoses Not on filedocumented in this encounter Care Teams Bicycle Repair Technician Relationship Specialty Start Date End Date Amie Pena MD [address] [place], [place] [address]al[place] [address] PCP - General Family Medicine 10/31/22 04/08/23 Marvel Grayson MD [address] [place] [address] [place] [address] PCP - General Family Medicine 05/17/23 Marvel Grayson [address] [place] [address] Family Practice 04/09/23 documented as of this encounter
--- OUTSIDE RECORDS SUMMARY | 2025-08-06 11:51 | XMS_ITS | Encounter Summary ---
Author Organization [employer] ([place], [place], [place], [place], [place]) Address [address] [place] [address] Care Team Providers Care Bed Rubber Name Role Phone Amie Pena MD Primary Care Provider Marvel Grayson MD Primary Care Provider [phone] Encounter Details Date Type Department Care Team (Late st Contact Info) Description 07/07/2019 Transcribed Document [facility] Family Medicine [facility] [place] [address] ProviderMik MD [address] [place] [address] Social History Tobacco Use Types Packs/Day [...] Mik Thorne MD - 07/07/2019 12:59 PM PATENT LEATHER SORTER [address] [address] PRATIK SHABAZZ :1970 Visit Time:07/05/2019 [...] please contact the Patient Resource Center at [phone]. Where: [address] [place] [address] [facility] (1) Follow Up with Follow up with primary care provider When Within 1 to 2 weeks Medications What How Much When Instructions Next Dose albuterol-ipratropium (DuoNeb 0.5 mg-2.5 mg/ 3 mL inhalation solution) 3 Milliliter(s) Nebulized Inhalation Every 4 Hours this afternoon 07/07/2019, if needed azithromycin (azithromycin 250 mg oral tablet) 1 Tablet(s) Oral Every Day Duration: 3 Day(s) Pickup at [facility] #99038 tomorrow morning 07/08/2019 cefdinir (cefdinir 300 mg oral capsule) 1 Capsule(s) Oral Every 12 hours Duration: 10 Day(s) Pickup at [facility] #70166 this evening 07/07/2019 formoterol-mometasone (Dulera 100 mcg-5 mcg/ inh inhalation aerosol) 2 Puff(s) Inhalation Two Times A Day Duration: 21 Day(s) Pickup at [facility] #05883 this evening 07/07/2019 ipratropium (Atrovent 0.02% inhalation solution) 2.5 Milliliter(s) Nebulized Inhalation Every 4 Hours Printed Prescription this afternoon 07/07/2019, if needed methylPREDNISolone (Medrol 4 mg oral tablet) 1 Packet(s) Oral One Time Order as directed on package labeling Pickup at [facility] #[id number] follow the taper instructions from the pharmacy albuterol (albuterol 2.5 mg/ 3 mL (0.083%) inhalation solution) this afternoon 07/07/2019, if needed gabapentin (gabapentin 300 mg oral capsule) 1 Capsule(s) Two Times A Day this evening 07/07/2019 [id number] [address] [place], [place] [id number] [phone] Take your medications faithfully. Do NOT skip [...] these instructions at home: Medicines ??? Take yepw-tjq-fkftkdh and prescription medicines only as told by [...] cannot use soap and water, use hand recorder of deeds. ? Change your bandage as told by [...] your pee (urine) pale yellow. ? Take lfxa-pfo-uwmvqlk or prescription medicines. ? Eat foods that [...] 12/14/2011 Document Revised: 12/04/2017 Document Reviewed: 12/04/2017 [employer] Interactive Patient Education ?? 2019 [employer] Sciatica Sciatica is pain, numbness, weakness, [...] these instructions at home: Medicines ??? Take gbrh-rzo-boovzvp and prescription medicines only as told by [...] 05/29/2009 Document Revised: 01/25/2017 Document Reviewed: 04/28/2016 [employer] Interactive Patient Education ?? 2019 [employer] Peripheral Neuropathy Peripheral neuropathy is a [...] pain. Medicines may include: ? Prescription or cgoz-xrk-jofywdb pain medicine. ? Antiseizure medicine. ? Antidepressants. ? Pain-relieving patches that are applied to painful areas of skin. ??? Surgery to relieve pressure on a nerve or to destroy a nerve that is causing pain. ??? Physical therapy to help improve movement and balance. ??? Devices to help you move around (assistive devices). Follow these instructions at home: Medicines ??? Take jrna-zbj-rpfsxvh and prescription medicines only as told by [...] 08/10/2003 Document Revised: 10/29/2017 Document Reviewed: 10/29/2017 [employer] Interactive Patient Education ?? 2019 [employer] Asthma Action Plan, Adult Introduction An [...] for Disease Control and Prevention: www.cdc.gov/asthma ??? [place] [employer]: www.lung.org This information is not intended to replace advice given to you by your health care provider. Make sure you discuss any questions you have with your health care provider. Document Released: 06/17/2010 Document Revised: 05/01/2018 Document Reviewed: 05/01/2018 [employer] Interactive Patient Education ?? 2019 [employer] Chronic Obstructive Pulmonary Disease Chronic obstructive [...] these instructions at home: Medicines ??? Take mksb-hey-kwlnvvp and prescription medicines (inhaled or pills) only [...] 05/30/2006 Document Revised: 02/13/2018 Document Reviewed: 09/24/2017 [employer] Interactive Patient Education ?? 2019 [employer] Chronic Obstructive Pulmonary Disease Exacerbation Chronic [...] these instructions at home: Medicines ??? Take qzgq-gfv-npjepap and prescription medicines only as told by [...] and water are not available, use hand recorder of deeds. ??? During flu season, avoid enclosed spaces [...] 06/16/2008 Document Revised: 02/13/2018 Document Reviewed: 09/24/2017 [employer] Interactive Patient Education ?? 2019 [employer]. formoterol and mometasone (for ÁNGEL tovar and [...] may report side effects to FDA at 8-644-DES-6062. What other drugs will affect formoterol and [...] affect formoterol and mometasone, including prescription and cfit-ysi-ldimwmg medicines, vitamins, and herbal products. Not all [...] to ensure that the information provided by [employer]. ('[employer]') is accurate, up-to-date, and complete, but no guarantee is made to that effect. Drug information contained herein may be time sensitive. [employer] information has been compiled for use by healthcare practitioners and consumers in the [place] and therefore [employer] does not warrant that uses outside of the [place] are appropriate, unless specifically indicated otherwise. [employer] drug information does not endorse drugs, diagnose patients or recommend therapy. [employer] drug information is an informational resource designed [...] effective or appropriate for any given patient. [employer] does not assume any responsibility for any aspect of healthcare administered with the aid of information [facility] provides. The information contained herein is not intended to cover all possible uses, directions, precautions, warnings, drug interactions, allergic reactions, or adverse effects. If you have questions about the drugs you are taking, check with your doctor, nurse or pharmacist. Copyright 2024-7861 [employer]. Version: 07.04. Revision Date: 02/03/2019. azithromycin (oral/injection) [...] may report side effects to FDA at 4-626-VFY-6864. What other drugs will affect azithromycin? Tell [...] drugs may affect azithromycin, including prescription and nrap-tjt-xfbytma medicines, vitamins, and herbal products. Not all [...] to ensure that the information provided by [employer]. ('[employer]') is accurate, up-to-date, and complete, but no guarantee is made to that effect. Drug information contained herein may be time sensitive. [employer] information has been compiled for use by healthcare practitioners and consumers in the [place] and therefore [employer] does not warrant that uses outside of the [place] are appropriate, unless specifically indicated otherwise. Inter[employer]stèmeum's drug information does not endorse drugs, diagnose patients or recommend therapy. Inter[employer] SystèmeFollicums drug information is an informational resource designed [...] effective or appropriate for any given patient. [facility] does not assume any responsibility for any aspect of healthcare administered with the aid of information [facility] provides. The information contained herein is not intended to cover all possible uses, directions, precautions, warnings, drug interactions, allergic reactions, or adverse effects. If you have questions about the drugs you are taking, check with your doctor, nurse or pharmacist. Copyright 1635-0174 [employer]. Version: 18.01. Revision Date: 01/02/2019. cefdinir (SE [...] What happens if I miss a dose? documented in this encounter Plan of Treatment Upcoming Encounters Date Type Department Care Team (Late st Contact Info) Description 11/03/2025 12:45 PM EST Office Visit [facility] Pulmonology - [address] [place] [address] Ben Barrios MD [address] [place] [address] documented as of this encounter Visit Diagnoses Not on filedocumented in this encounter Care Teams Bed Rubber Relationship Specialty Start Date End Date Amie Pnea MD [facility] [place] [address] PCP - General Family Medicine 10/31/22 04/08/23 Marvel Grayson MD [address] [place] [address] PCP - General Family Medicine 05/17/23 Marvel Grayson [address] [place] [id number] Family Practice 04/09/23 documented as of this encounter
--- OUTSIDE RECORDS SUMMARY | 2025-08-06 11:51 | XMS_ITS | Encounter Summary ---
Author Organization [employer] ([place], [place], [place], [place], [place]) Address [address] [place] [address] Care Team Providers Care Weight Tester Name Role Phone Amie Pena MD Primary Care Provider [phone] Marvel Grayson MD Primary Care Provider [phone] Encounter Details Date Type Department Care Team (Late st Contact Info) Description 07/07/2019 Transcribed Document [facility] [place] [address] [place] [address] ProviderMik MD [address] [place] [address] Social History Tobacco Use Types Packs/Day Years Used Date Smoking Tobacco: Never Assessed Comments Unknown Sex and Gender Information Value Date Recorded Sex Assigned at Not on file Legal Sex Female 6:09 PM CDT Gender Identity Not on file Sexual Orientation Not on file documented as of this encounter Miscellaneous Notes * Cerner Conversion Note - Historical ProviderMD - 07/07/2019 12:55 PM EXPLOSIVE OPERATOR SUPERVISOR Event Note Entered On: 07/07/2019 13:06 EST Performed On: 07/07/2019 12:55 EST by Vy Salazar, RN Event Note Description of Event : Discharge delay-- Dr Lane brought written Rx for Atrovent to RN, patient discharge paperwork is complete. Patient asked RN to request a couple days continued lortab. Aundrea CORONADO, pending response. Vy Salazar, RN - 07/07/2019 13:05 EST Electronically signed by [facility] Conversion Professor Of Industrial Technology Cerner at 12/16/2022 10:47 AM CDT documented in this encounter Plan of Treatment Upcoming Encounters Date Type Department Care Team (Late st Contact Info) Description 11/03/2025 12:45 PM EST Office Visit [facility] Pulmonology - [address] [place] [address] Ben Barrios MD [address] [place] [address] documented as of this encounter Visit Diagnoses Not on filedocumented in this encounter Care Teams Weight Tester Relationship Specialty Start Date End Date Amie Pena MD [address] [place] [address] [place] [address] PCP - General Family Medicine 10/31/22 04/08/23 Marvel Grayson MD [address] [place] [address] [place] [address] PCP - General Family Medicine 05/17/23 Marvel Grayson [address] [place] [address] Family Practice 04/09/23 documented as of this encounter
--- OUTSIDE RECORDS SUMMARY | 2025-08-06 11:52 | XMS_ITS | Encounter Summary ---
Author Organization [employer] ([place], [place], [place], [place], [place]) Address [address] [place] [address] Care Team Providers Care Semi Truck Driver Name Role Phone Amie Pena MD Primary Care Provider [phone] Marvel Grayson MD Primary Care Provider [phone] Encounter Details Date Type Department Care Team (Late st Contact Info) Description 04/18/2019 Transcribed Document [facility] Family Medicine [address] [place] [address] ProviderMik MD [address] [place] [address] Social History Tobacco Use Types Packs/Day [...] 04/18/2019 14:05 EDT by GENNARO THOMAS, Care Management-Spout Liner Final Discharge Planning Discharge Arrangements : Patient Post-Acute Information Patient Name: PRATIK SHABAZZ Gender: Female : [birth year] Age: 48 Years No Post-Acute Placement(s) Listed No Post-Acute Service(s) Listed No Curaspan Referral(s) Listed Discharge To Care Management : Home/Residential/Jail or Self Care -01 GENNARO THOMAS Care Management-Spout Liner - 04/18/2019 14:05 EDT Electronically signed by [place], [facility] Conversion Linoleum Tile Floor Layer Cerner at 12/16/2022 10:42 AM CDT documented in this encounter Plan of Treatment Upcoming Encounters Date Type Department Care Team (Late st Contact Info) Description 11/03/2025 12:45 PM EST Office Visit [facility] Pulmonology - [address] [place] [address] Ben Barrios MD [address] [place] [address] documented as of this encounter Visit Diagnoses Not on filedocumented in this encounter Care Teams Semi Truck Driver Relationship Specialty Start Date End Date Amie Pena MD [address] [place] [address] PCP - General Family Medicine 10/31/22 04/08/23 Marvel Grayson MD [address] [place] [address] PCP - General Family Medicine 05/17/23 Marvel Grayson [address] [place] [address] Family Practice 04/09/23 documented as of this encounter
--- OUTSIDE RECORDS SUMMARY | 2025-08-06 11:52 | XMS_ITS | Encounter Summary ---
Author Organization [facility] ([place], [place], [place], [place], [place]) Address [address] [place] [address] Care Team Providers Care Retail Pharmacy Manager Name Role Phone Amie Pena MD Primary Care Provider [phone] Marvel Grayson MD Primary Care Provider [phone] Encounter Details Date Type Department Care Team (Late st Contact Info) Description 04/18/2019 Transcribed Document [facility] [place] [address] [place] [address] ProviderMik MD [address] [place] [address] Social History Tobacco Use Types Packs/Day [...] Source : Stated Height Entry Format : [place] Height, Feet : 5 ft(Converted to: 152 cm, 60 Inch) Height, Inches : 11 Inch(Converted to: 0 ft 11 Inch, 27.94 cm) Clinical Height : 180.34 cm Weight Source : Standing scale Weight Entry Format : [place] Clinical Dosing Weight : 91.36 kg Weight, Pounds : 201 lb Body Surface Area (BSA) : 2.12 m2 Body Mass Index : 28.1 kg/m2 (HI) [place]iday Body Weight : 70 kg Terri Jon Care Asst-Health Unit Coord - 04/18/2019 6:17 EDT Electronically signed by [place], [facility] Conversion Core Measures Abstractor Cerner at 12/16/2022 10:48 AM CDT documented in this encounter Plan of Treatment Upcoming Encounters Date Type Department Care Team (Late st Contact Info) Description 11/03/2025 12:45 PM EST Office Visit [facility] Pulmonology - [address] [place] [address] Ben Barrios MD [address] [place] [address] documented as of this encounter Visit Diagnoses Not on filedocumented in this encounter Care Teams Retail Pharmacy Manager Relationship Specialty Start Date End Date Amie Pena MD [address] [place] [address] PCP - General Family Medicine 10/31/22 04/08/23 Marvel Grayson MD [address] [place] [address] PCP - General Family Medicine 05/17/23 Marvel Grayson [address] [place] [address] Family Practice 04/09/23 documented as of this encounter
--- OUTSIDE RECORDS SUMMARY | 2025-08-06 11:52 | XMS_ITS | Encounter Summary ---
Author Organization [employer] ([place], [place], [place], [place], [place]) Address [address] [place] [address] Care Team Providers Care Research Pharmacist Name Role Phone Amie Pena MD Primary Care Provider [phone] Marvel Grayson MD Primary Care Provider [phone] Encounter Details Date Type Department Care Team (Late st Contact Info) Description 07/05/2019 Transcribed Document [facility] [place] Family Medicine [address] [place] [address] ProviderMik MD [address] [place] [address] Social History Tobacco Use Types Packs/Day Years Used Date Smoking Tobacco: Never Assessed Comments Unknown Sex and Gender Information Value Date Recorded Sex Assigned at Not on file Legal Sex Female 6:09 PM CDT Gender Identity Not on file Sexual Orientation Not on file documented as of this encounter Miscellaneous Notes * Cerner Conversion Note - Mik hTorne MD - 07/05/2019 10:38 PM CDT Patient: PRATIK SHABAZZ Age: 48 years Sex: Female : 1970 Associated Diagnoses: None Author: LI LUEVANO MD-INT Basic Information Source of history: Self. History limitation: None. Chief Complaint She transferred from [facility] because of shortness of breath, productive cough and fever History of Present Illness Ms. Carmen, 48 years old female with past medical history of COPD and fibromyalgia who was transferred from [facility] because of pneumonia. Patient states that since [...] of back surgery. No recent antibiotic. At [facility], she was tachycardic and sats 88 [...] influenza virus vaccine, inactivated 0.5 mL, IntraMuscular, [id number] Continuous: (0) PRN: (0) Histories Past medical [...] is 47 minutes Electronically signed by Geneva [facility] Conversion Program Services Assistant Cerner at 12/16/2022 10:44 AM CDT documented in this encounter Plan of Treatment Upcoming Encounters Date Type Department Care Team (Late st Contact Info) Description 11/03/2025 12:45 PM EST Office Visit [facility] Pulmonology - [address] [place] [address] Ben Barrios MD [address] [place] [address] documented as of this encounter Visit Diagnoses Not on filedocumented in this encounter Care Teams Research Pharmacist Relationship Specialty Start Date End Date Amie Pena MD [facility] [place] [address] PCP - General Family Medicine 10/31/22 04/08/23 Marvel Grayson MD [address] [place] [address] PCP - General Family Medicine 05/17/23 Marvel Grayson [address] [place] [address] Family Practice 04/09/23 documented as of this encounter
--- OUTSIDE RECORDS SUMMARY | 2025-08-06 11:52 | XMS_ITS | Clinical Summary ---
Author Organization [employer] ([place], [place], [place], [place], [place]) Address [address] [place] [address] Care Team Providers Care Seasonal Package Handler Name Role Phone Marvel Grayson MD Primary Care Provider [phone] Allergies Active Allergy Reactions Criticality Noted Date [...] Pain, # 100 Tab, 0 Refill(s), Pharmacy: [facility]/pharmacy #[id number], 180.34, cm, 10/23/21 13:50:00 EST, [...] DAY 30 tablet 1 02/06/20 23 Active HYDROcodone-acetam inophen (NORCO 7.5-325) 7.5-325 mg per tablet Take [...] daily. 09/05/19 25 Active miscellaneous medical supply [facility] 11/13/19 25 Active budesonide (PULMICORT) 1 mg/2 mL nebulizer solution 2 mL by nebulizer 2 times a day for 30 days 09/16/19 25 Active promethazine-DM (PROMETHAZINE-DM) 6.25-15 mg/5 mL syrup 5 mL orally every 6 hours for 15 days 09/16/19 Active albuterol 90 mcg/actuation inhalerIndications :COPD (chronic obstructive pulmonary disease) (HCC) Inhale 2 puffs by mouth every 4 (four) hours as needed for wheezing. 1 Inhaler 11/28/19 Active ipratropium-albute roL (DUO-NEB) 0.5 mg-3 mg(2.5 mg base)/3 mL nebulizer solutionIndication s:COPD with acute exacerbation (HCC) Inhale 3 mLs by nebulization every 4 (four) hours as needed for wheezing or shortness of breath. 240 mL 11/28/19 25 026 Active HYDROcodone-acetam inophen (NORCO) 10-325 mg per tablet Take 1 tablet by mouth every 6 (six) hours EVERY 6 HOURS. Active atorvastatin (LIPITOR) 40 MG tablet Take 1 tablet (40 mg total) by mouth daily ONCE A. Active cefdinir (OMNICEF) 300 mg capsuleIndications :Community acquired bacterial pneumonia Take 1 capsule (300 mg total) by mouth 2 (two) times daily. 14 capsule 05/28/20 25 Active fluticasone-umecli din-vilanter (Trelegy Ellipta) 100-62.5-25 mcg dsdvIndications:Ch ronic obstructive pulmonary disease, unspecified COPD type (HCC) Inhale 1 puff by mouth daily. 60 each 05/29/20 25 Active roflumilast (DALIRESP) 250 mcg tabletIndications: COPD (chronic obstructive pulmonary disease) (HCC),Chronic bronchitis, unspecified chronic bronchitis type (HCC),Pulmonary emphysema (HCC) Take 1 tablet (250 mcg total) by mouth daily. 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 04/07/2021 Posttraumatic stress disorder 02/07/2021 Other buttermaker (current) drug therapy 08/29/2023 Axillary mass 01/23/2021 [...] - 05/28/2025 11:59 PM EDT Hospital Encounter [facility] Diagnostic Imaging - [address] [place] [address] Ben Barrios MD Community acquired bacterial pneumonia Discharge Disposition: Home or Self Care 05/28/2025 1:45 PM EDT Office Visit [facility] Pulmonology - [facility] [address] [facility] [address] [place] [address] Ben Barrios MD Solitary pulmonary [...] Date Thanh rded Speak language other than Frisian at home Not on file 09/21/2023 Want [...] [facility] Pulmonology - [address] [place] [address] Ben Barrios MD [address] [place] [address] Health Maintenance Due Date Last [...] Lipid Panel 01/24/2025 01/24/2022, 10/24/2021 COVID-19 VACCINE ( - 2024-2 6 season) 2025 07/15/2021, 12/27/2020, [...] 2:40 PM EDT 01/25/2022 12:28 AM EDT [facility] Historical Provider PATHOLOGY/CYTOLOGY MAURICIO THOMAS Edited Result - Final [facility] [address] [phone] * MM digital mammo screen bilateral (03/03/2021 5:10 PM EDT) Anatomical Region Laterality Modality Breast Bilateral Mammography 03/03/2021 5:10 PM EDT Narrative 03/04/2021 2:22 PM EDT PROCEDURE: Bilateral digital screening mammogram. REASON FOR EXAM: Routine screening. FAMILY HISTORY: Intermediate family history of breast cancer COMPARISON STUDY: [facility] 2015 and 2019 FINDINGS: Craniocaudal and [...] the next mammogram. At our facility, a soboba marker is positioned over a visible skin lesion and a linear marker is used to indicate a scar. A triangular marker is placed on a self reported palpable finding. cc: Procedure Note Oscar Elizondo MD - 12/19/2022 PROCEDURE: Bilateral digital screening mammogram. REASON FOR EXAM: Routine screening. FAMILY HISTORY: Intermediate family history of breast cancer COMPARISON STUDY: [facility] 2015 and 2019 FINDINGS: Craniocaudal and [...] the next mammogram. At our facility, a soboba marker is positioned over a visible skin lesion and a linear marker is used to indicate a scar. A triangular marker is placed on a self reported palpable finding. cc: us Oscar Elizondo MD IMG MAMMOGRAPHY ORDERABLES Keshia l Result from Last 3 Months or Most Recently Relevant to Health Maintenance Insurance * Guarantor: Tiffanie Shabazz Account Type Relation to Patient Date of Phone Billing Address Personal/Family Self [address] [place] [id number] [facility] AD[facility] Advance Directives For more information, please contact: [phone] * Full Code (Latest Code Status on File) Date Activated Date Inactivated Comments 07/24/2023 1:02 PM 07/25/2023 2:38 PM If no puls e: No intervention If has pulse: Use intubation, mechanical ventilation, defibrillation, ACLS medications, or cardioversion as indicated. Call AUTO WHEEL ALIGNMENT SPECIALIST * Full Code Date Activated Date Inactivated Comments 07/24/2023 11:31 AM 07/24/2023 1:02 PM * Full Code Date Activated Date Inactivated Comments 07/24/2023 7:21 AM 07/24/2023 11:31 AM Care Teams Seasonal Package Handler Relationship Specialty Start Date End Date Marvel Grayson MD PCP - General Family Medicine 05/17/23 Marvel Grayson [address] [place] [address] Family Practice 04/09/23
--- OUTSIDE RECORDS SUMMARY | 2025-08-06 11:52 | XMS_ITS | Encounter Summary ---
Author Organization [employer] ([place], [place], [place], [place], [place]) Address [address] [place] [address] Care Team Providers Care Press Leader Name Role Phone Amie Pena MD Primary Care Provider [phone] Marvel Grayson MD Primary Care Provider [phone] Encounter Details Date Type Department Care Team (Late st Contact Info) Description 04/14/[address] [facility] [place] Family Medicine [address] [place] [address] ProviderMik MD [address] [place] [address] Social History Tobacco Use Types Packs/Day [...] On: 04/14/2019 22:23 EDT by Leah Valentine education technician Process Patient Disposition : Discharge Personal Belongings [...] 04/14/2019 22:23 EDT Electronically signed by [place] [facility] Conversion Candle Molder Cerner at 12/16/2022 10:45 AM CDT documented in this encounter Plan of Treatment Upcoming Encounters Date Type Department Care Team (Late st Contact Info) Description 11/03/2025 12:45 PM EST Office Visit [facility] Pulmonology - [address] [place] [address] Ben Barrios MD [address] [place] [address] documented as of this encounter Visit Diagnoses Not on filedocumented in this encounter Care Teams Press Leader Relationship Specialty Start Date End Date Amie Pena MD [address] [place] [address] [place] [address] PCP - General Family Medicine 10/31/22 04/08/23 Marvel Grayson MD [address] [place] [address] [place] [address] PCP - General Family Medicine 05/17/23 Marvel Grayson [address] [place] [address] Family Practice 04/09/23 documented as of this encounter
--- OUTSIDE RECORDS SUMMARY | 2025-08-06 11:52 | XMS_ITS | Encounter Summary ---
Author Organization [employer] ([place], [place], [place], [place], [place]) Address [address] [place] [address] Care Team Providers Care Shot Packer Name Role Phone Amie Pena MD Primary Care Provider [phone] Marvel Grayson MD Primary Care Provider [phone] Encounter Details Date Type Department Care Team (Late st Contact Info) Description 07/05/2019 Transcribed Document [facility] [place] [place] [address] ProviderMik MD [address] [place] [address] Social History Tobacco Use Types Packs/Day [...] met and within reach, Other: O2, tele, ORACLE DATABASE ADMINISTRATOR/PCT Informed Comment : RN Ok'd to tx, [...] Rehab Modified independence (Comment: HOB raised [SOLA SHEARRE OTR/Kevan 07/07/2019 12:08 EST] ) Sit to [...] 1 SOLA SHEARERDORA/Kevan - 07/07/2019 12:08 EST Electronically signed by Geneva [facility] Conversion Roof Assembler Cerner at 12/16/2022 10:40 AM CDT documented in this encounter Plan of Treatment Upcoming Encounters Date Type Department Care Team (Late st Contact Info) Description 11/03/2025 12:45 PM EST Office Visit [facility] Pulmonology - [address] [place] [address] Ben Barrios MD [address] [place], [place] [address] documented as of this encounter Visit Diagnoses Not on filedocumented in this encounter Care Teams Shot Packer Relationship Specialty Start Date End Date Amie Pena MD [address] [place], [place] [address] [address] PCP - General Family Medicine 10/31/22 04/08/23 Marvel Grayson MD [address] [place] [address] PCP - General Family Medicine 05/17/23 Marvel Grayson [address] [place] [address] Family Practice 04/09/23 documented as of this encounter
--- OUTSIDE RECORDS SUMMARY | 2025-08-06 11:52 | XMS_ITS | Encounter Summary ---
Author Organization [employer] ([place], [place], [place], [place], [place]) Address [address] [place] [address] Care Team Providers Care Dye Feeder Name Role Phone Amie Pena MD Primary Care Provider [phone] Marvel Grayson MD Primary Care Provider [phone] Encounter Details Date Type Department Care Team (Late st Contact Info) Description 07/06/2019 Transcribed Document [facility] [place] Family Medicine [address] [place] [address] ProviderMik MD [address] [place] [address] Social History Tobacco Use Types Packs/Day Years Used Date Smoking Tobacco: Never Assessed Comments Unknown Sex and Gender Information Value Date Recorded Sex Assigned at Not on file Legal Sex Female 6:09 PM CDT Gender Identity Not on file Sexual Orientation Not on file documented as of this encounter Miscellaneous Notes * Cerner Conversion Note - Mik ProviderMD - 07/06/2019 12:03 PM POLYETHYLENE COMBINER Patient: PRATIK SHABAZZ Age: 48 years Sex: [...] 50 m - 1 Gram, IV Piggyback, [id number], infuse over 30 Minute(s), Routine azithromycin + Sodium Chloride 0.9% intravenous solution 250 - 500 mg, IV Piggyback, [id number], infuse over 120 Minute(s), Routine Immunology methylPREDNISolone (SOLU-Medrol) - 40 mg, IV Push, Inj, Q6H, Routine Anticoagulant enoxaparin (Lovenox) - 40 mg, SubCutaneous, Inj, Q17CPed, Routine Respiratory albuterol-ipratropium (DuoNeb 0.5 mg-2.5 mg/3 [...] Office Visit [facility] Pulmonology - [address] [place] [address] Ben Barrios MD [address] [place] [address] documented as of this encounter Visit Diagnoses Not on filedocumented in this encounter Care Teams Dye Feeder Relationship Specialty Start Date End Date Amie Pena MD [address] [place] [address] [place] [address] PCP - General Family Medicine 10/31/22 04/08/23 Marvel Grayson MD [address] [place] [address] [place] [address] PCP - General Family Medicine 05/17/23 Marvel Grayson [address] [place] [address] Family Practice 04/09/23 documented as of this encounter
--- OUTSIDE RECORDS SUMMARY | 2025-08-06 11:52 | XMS_ITS | Encounter Summary ---
Author Organization [employer] ([place], [place], [place], [place], [place]) Address [address] [place] [address] Care Team Providers Care Sap Business Analyst Name Role Phone Amie Pena MD Primary Care Provider [phone] Marvel Grayson MD Primary Care Provider [phone] Encounter Details Date Type Department Care Team (Late st Contact Info) Description 04/18/2019 Transcribed Document [facility] [place] Family Medicine [address] [place] [address] ProviderMik MD [address] [place] [address] Social History Tobacco Use Types Packs/Day [...] Kallie Jiménez/Sex: 1970 Female Med Rec #: [id number] Physician: TASHA ROLDAN MD-INT Financial #: [id number] Pt. Type: I Room/Bed: 526/ Admit/Disch: 04/18/19 04:50:00 - 04/18/19 15:04:00 Institution: [facility] [place] PreOp Case Times Entry 1 In Preop 04/18/19 06:00:00 Ready for Holding n/a Room Patient Ready for 04/18/19 06:54:00 Surgery Patient Out of Preop 04/18/19 07:28:00 Patient Out of n/a Holding Room Last Modified By: LACEY VELAZQUEZ 04/22/19 10:37:14 [facility] [place] [facility] PreOp Case Times Audit 04/22/19 10:37:14 Sheeter Helper: [id number] Modifier: [id number] <+> 1 Patient Out of Preop 04/18/19 06:54:36 Sheeter Helper: [id number] Modifier: [id number] <+> 1 Patient Ready for Surgery Finalized By: LACEY VELAZQUEZ Document Signatures Signed By: LACEY VELAZQUEZ 04/22/19 10:37 documented in this encounter Plan of Treatment Upcoming Encounters Date Type Department Care Team (Late st Contact Info) Description 11/03/2025 12:45 PM EST Office Visit [facility] Pulmonology - [address] [place] [address] Ben Barrios MD [address] [place] [address] documented as of this encounter Visit Diagnoses Not on filedocumented in this encounter Care Teams Sap Business Analyst Relationship Specialty Start Date End Date Amie Pena MD [facility] [place] [address] PCP - General Family Medicine 10/31/22 04/08/23 Marvel Grayson MD [facility] [place] [address] PCP - General Family Medicine 05/17/23 Marvel Grayson [address] [place] [id number] Family Practice 04/09/23 documented as of this encounter
--- OUTSIDE RECORDS SUMMARY | 2025-08-06 11:52 | XMS_ITS | Encounter Summary ---
Author Organization [employer] ([place], [place], [place], [place], [place]) Address [address] [place] [address] Care Team Providers Care Control Clerk Food And Beverage Name Role Phone Amie Pena MD Primary Care Provider [phone] Marvel Grayson MD Primary Care Provider [phone] Encounter Details Date Type Department Care Team (Late st Contact Info) Description 04/14/[address] [facility] [place] [address] [place] [address] ProviderMik MD [address] [place] [address] Social History Tobacco Use Types Packs/Day [...] Communication Barrier : None Primary Language : Kosovan Any Spiritual/Cultural Needs or Requests : No [...] Office Visit [facility] Pulmonology - [address] [place] [address] Ben Barrios MD [address] [place] [address] documented as of this encounter Visit Diagnoses Not on filedocumented in this encounter Care Teams Control Clerk Food And Beverage Relationship Specialty Start Date End Date Amie Pena MD [address] [place], [place] [address]al[place] [address] PCP - General Family Medicine 10/31/22 04/08/23 Marvel Grayson MD [address] [place] [address] [place] [address] PCP - General Family Medicine 05/17/23 Marvel Grayson [address] [place] [address] Family Practice 04/09/23 documented as of this encounter
--- OUTSIDE RECORDS SUMMARY | 2025-08-06 11:52 | XMS_ITS | Encounter Summary ---
Author Organization [employer] ([place], [place], [place], [place], [place]) Address [address] [place] [address] Care Team Providers Care Obstetrics Gynecology Physician Name Role Phone Amie Pena MD Primary Care Provider Marvel Grayson MD Primary Care Provider [phone] Encounter Details Date Type Department Care Team (Late st Contact Info) Description 04/14/[address] [facility] [place] Family Medicine [address] [place] [address] ProviderMik MD [address] [place] [address] Social History Tobacco Use Types Packs/Day [...] Ellipta: 1 Puff, Inhalation, Daily, 0 Refill(s) [place] 5 mg-325 mg oral tablet: 1 Tab, [...] Years. Removal of ovarian cyst (SNOMED CT 2601083084). I&D to left finger. Hysterectomy (SNOMED CT 839035858).. Family history: No family history items have [...] EDT Height Source Stated Height Entry Format [place] Height/Length, DUTCH (ft) 5 ft Height/Length DUTCH 11 Inch CLINICALHEIGHT 180.34 cm [place] Body Weight 70.31 kg Weight Source, ED Standing scale Weight Entry Format [place] Weight [place]i lb 210 lb CLINICALWEIGHT 95.45 kg Body [...] of instructions. Notes: I certify that the MLP/BAG SHOP WORKER performed the services as delegated. I agree with the assessment, treatment plan and disposition of the patient as recorded by the MLP.. documented in this encounter Plan of Treatment Upcoming Encounters Date Type Department Care Team (Late st Contact Info) Description 11/03/2025 12:45 PM EST Office Visit [facility] Pulmonology - [address] [place] [address] Ben Barrios MD [address] [place] [address] documented as of this encounter Visit Diagnoses Not on filedocumented in this encounter Care Teams Obstetrics Gynecology Physician Relationship Specialty Start Date End Date Amie Pena MD [address] [place] [address] PCP - General Family Medicine 10/31/22 04/08/23 Marvel Grayson MD [address] [place] [address] PCP - General Family Medicine 05/17/23 Marvel Grayson [address] [place] [address] Family Practice 04/09/23 documented as of this encounter
--- OUTSIDE RECORDS SUMMARY | 2025-08-06 11:52 | XMS_ITS | Encounter Summary ---
Author Organization [employer] ([place], [place], [place], [place], [place]) Address [address] [place] [address] Care Team Providers Care Real Estate Executive Assistant Name Role Phone Amie Pena MD Primary Care Provider [phone] Marvel Grayson MD Primary Care Provider [phone] Encounter Details Date Type Department Care Team (Late st Contact Info) Description 04/15/2019 Transcribed Document [facility] [place] [address] [place] [address] ProviderMik MD [address] [place] [address] Social History Tobacco Use Types Packs/Day [...] Visit [facility] Pulmonology - [address] [place] [address] Ben Barrios MD [address] [place], [place] [address] documented as of this encounter Visit Diagnoses Not on filedocumented in this encounter Care Teams Real Estate Executive Assistant Relationship Specialty Start Date End Date Amie Pena MD [address] [place] [address] [place] [address] PCP - General Family Medicine 10/31/22 04/08/23 Marvel Grayson MD [address] [place] [address] [place] [address] PCP - General Family Medicine 05/17/23 Marvel Grayson [address] [place] [address] Family Practice 04/09/23 documented as of this encounter
--- OUTSIDE RECORDS SUMMARY | 2025-08-06 11:52 | XMS_ITS | Encounter Summary ---
Author Organization [employer] ([place], [place], [place], [place], [place]) Address [address] [place] [address] Care Team Providers Care Hand Molder Name Role Phone Marbella Pena MD Primary Care Provider [phone] Marvel Grayson MD Primary Care Provider [phone] Encounter Details Date Type Department Care Team (Late st Contact Info) Description 04/18/2019 Transcribed Document [facility] [place] Medicine [address] [place] [address] ProviderMik MD [address] [place] [address] Social History Tobacco Use Types Packs/Day [...] Level : Independent, modified Toileting Device : [id number] commode Toilet Transfer Assist Level : Independent, [...] MARBELLA MARIANO OTR/Kevan - 04/18/2019 11:58 EDT Electronically signed by Karthikeyan Bean Conversion Cistern Room Working Supervisor Cerner at 12/16/2022 10:41 AM CDT documented in this encounter Plan of Treatment Upcoming Encounters Date Type Department Care Team (Late st Contact Info) Description 11/03/2025 12:45 PM EST Office Visit [facility] Pulmonology - [address] [place] [address] Ben Barrios MD [address] [place] [address] documented as of this encounter Visit Diagnoses Not on filedocumented in this encounter Care Teams Hand Molder Relationship Specialty Start Date End Date Marbella Pena MD [address] [place], [place] [address] PCP - General Family Medicine 10/31/22 04/08/23 Marvel Grayson MD [address] [place] [address] PCP - General Family Medicine 05/17/23 Marvel Grayson [address] [place] [address] Family Practice 04/09/23 documented as of this encounter
--- OUTSIDE RECORDS SUMMARY | 2025-08-06 11:52 | XMS_ITS | Encounter Summary ---
Author Organization [employer] ([place], [place], [place], [place], [place]) Address [address] [place] [address] Care Team Providers Care Senior Applications Architect Name Role Phone Amie Pena MD Primary Care Provider [phone] Marvel Grayson MD Primary Care Provider [phone] Encounter Details Date Type Department Care Team (Late st Contact Info) Description 07/06/2019 Transcribed Document [facility] [place] [address] [place] [address] ProviderMik MD [address] [place] [address] Social History [...] - Historical ProviderMD - 07/06/2019 2:00 AM CAREER TECHNOLOGY TEACHER Expediter Service Order Details Entered On: 07/06/2019 2:59 EST Performed [...] 07/06/2019 2:59 EST Electronically signed by [place], [facility] Conversion Sand Plant Attendant Cerner at 12/16/2022 10:46 AM CDT documented in this encounter Plan of Treatment Upcoming Encounters Date Type Department Care Team (Late st Contact Info) Description 11/03/2025 12:45 PM EST Office Visit [facility] Pulmonology - [address] [place] [address] Ben Barrios MD [address] [place] [address] documented as of this encounter Visit Diagnoses Not on filedocumented in this encounter Care Teams Senior Applications Architect Relationship Specialty Start Date End Date Amie Pena MD [address] [facility] [place] [address] PCP - General Family Medicine 10/31/22 04/08/23 Marvel Grayson MD [address] [place] [address] PCP - General Family Medicine 05/17/23 Marvel Grayson [address] [place] [address] Family Practice 04/09/23 documented as of this encounter
--- OUTSIDE RECORDS SUMMARY | 2025-08-06 11:52 | XMS_ITS | Encounter Summary ---
Author Organization [employer] ([place], [place], [place], [place], [place]) Address [address] [place] [address] Care Team Providers Care Senior Counsel Commercial Name Role Phone Amie Pena MD Primary Care Provider [phone] Marvel Grayson MD Primary Care Provider [phone] Encounter Details Date Type Department Care Team (Late st Contact Info) Description 04/22/2019 Transcribed Document [facility] [place] Family Medicine [address] [place] [address] ProviderMik MD [address] [place] [address] Social History Tobacco Use Types Packs/Day [...] 04/22/2019 12:14 EDT Electronically signed by [place] [facility] Conversion Property Field Inspector Cerner at 12/16/2022 10:45 AM CDT documented in this encounter Plan of Treatment Upcoming Encounters Date Type Department Care Team (Late st Contact Info) Description 11/03/2025 12:45 PM EST Office Visit [facility] Pulmonology - [address] [place] [address] Ben Barrios MD [address] [place] [address] documented as of this encounter Visit Diagnoses Not on filedocumented in this encounter Care Teams Senior Counsel Commercial Relationship Specialty Start Date End Date Amie Pena MD [facility] [place] [address] PCP - General Family Medicine 10/31/22 04/08/23 Marvel Grayson MD [facility] [place] [address] PCP - General Family Medicine 05/17/23 Marvel Grayson [address] [place] [address] Family Practice 04/09/23 documented as of this encounter
--- OUTSIDE RECORDS SUMMARY | 2025-08-06 11:52 | XMS_ITS | Encounter Summary ---
Author Organization [employer] ([place], [place], [place], [place], [place]) Address [address] [place] [address] Care Team Providers Care Community Relations Police Lieutenant Name Role Phone Amie Pena MD Primary Care Provider [phone] Marvel Grayson MD Primary Care Provider [phone] Encounter Details Date Type Department Care Team (Late st Contact Info) Description 07/06/2019 Transcribed Document [facility] [place] [address] [place] [address] ProviderMik MD [address] [place] [address] Social History Tobacco Use Types Packs/Day Years Used Date Smoking Tobacco: Never Assessed Comments Unknown Sex and Gender Information Value Date Recorded Sex Assigned at Not on file Legal Sex Female 6:09 PM CDT Gender Identity Not on file Sexual Orientation Not on file documented as of this encounter Miscellaneous Notes * Cerner Conversion Note - Historical ProviderMD - 07/06/2019 5:00 PM YARN WORKER Chart Check - Review Order Profile Entered On: 07/06/2019 17:44 EST Performed On: 07/06/2019 17:00 EST by Nasreen Fishman, RN Chart Check Powerplans Initiated/Discontinued as Appropriate : Yes All Active Orders Reviewed : Yes Nasreen Fishman RN - 07/06/2019 17:44 EST Electronically signed by [facility] Conversion Pony Roll Finisher Cerner at 12/16/2022 10:40 AM CDT documented in this encounter Plan of Treatment Upcoming Encounters Date Type Department Care Team (Late st Contact Info) Description 11/03/2025 12:45 PM EST Office Visit [facility] Pulmonology - [address] [place] [address] Ben Barrios MD [address] [place] [address] documented as of this encounter Visit Diagnoses Not on filedocumented in this encounter Care Teams Community Relations Police Lieutenant Relationship Specialty Start Date End Date Amie Pena MD [address] [place], [place] [address] [address] PCP - General Family Medicine 10/31/22 04/08/23 Marvel Grayson MD [facility] [place] [address] PCP - General Family Medicine 05/17/23 Marvel Grayson [address] [place] [address] Family Practice 04/09/23 documented as of this encounter
--- OUTSIDE RECORDS SUMMARY | 2025-08-06 11:52 | XMS_ITS | Encounter Summary ---
Author Organization [employer] ([place], [place], [place], [place], [place]) Address [address] [place] [address] Care Team Providers Care Logistics Center Manager Name Role Phone Amie Pena MD Primary Care Provider [phone] Marvel Grayson MD Primary Care Provider [phone] Encounter Details Date Type Department Care Team (Late st Contact Info) Description 07/05/2019 Transcribed Document [facility] [place] [address] [place] [address] ProviderMik MD [address] [place] [address] Social History Tobacco Use Types Packs/Day [...] On: 07/05/2019 17:18 EDT by Leah Valentine CUTTING DEPARTMENT SUPERVISOR Quick Look Assessment Level of Consciousness : Alert, Awake Affect/Behavior : Appropriate, Calm, Cooperative Orientation : Oriented x 4 Skin Temperature : Warm Skin Description : Normal for ethnicity, Dry Leah Valentine RN - 07/05/2019 17:18 EDT ED General-Functional Assess Information Obtained From : Patient Preferred Communication Mode : Verbal Communication Barrier : None Primary Language : Azerbaijani Any Spiritual/Cultural Needs or Requests : No Currently in Unsafe Situation : No Leah Valentine RN - 07/05/2019 17:18 EDT Patient/Family Telemarketing Supervisor Communication Primary Language : Azerbaijani Leah Valentine RN - 07/05/2019 17:18 EDT [...] (Last Updated: 04/11/2019 13:17:27 EDT by ALLA ZAPTAA RN) Substance Abuse: Drug Use Hx: No. [...] Leah Valentine RN - 07/05/2019 17:18 EDT Electronically signed by Karthikeyan Bean Conversion Access Services Representative Cerner at 12/16/2022 10:47 AM CDT documented in this encounter Plan of Treatment Upcoming Encounters Date Type Department Care Team (Late st Contact Info) Description 11/03/2025 12:45 PM EST Office Visit [facility] Pulmonology - [address] [place] [address] Ben Barrios MD [address] [place] [address] documented as of this encounter Visit Diagnoses Not on filedocumented in this encounter Care Teams Logistics Center Manager Relationship Specialty Start Date End Date Amie Pena MD [address] [place], [place] [address] [address] PCP - General Family Medicine 10/31/22 04/08/23 Marvel Grayson MD [address] [place] [address] [place] [address] PCP - General Family Medicine 05/17/23 Marvel Grayson [address] [place] [address] Family Practice 04/09/23 documented as of this encounter
--- OUTSIDE RECORDS SUMMARY | 2025-08-06 11:52 | XMS_ITS | Encounter Summary ---
Author Organization [employer] ([place], [place], [place], [place], [place]) Address [address] [place] [address] Care Team Providers Care 911 Telecommunicator Name Role Phone Amie Pena MD Primary Care Provider [phone] Marvel Grayson MD Primary Care Provider [phone] Encounter Details Date Type Department Care Team (Late st Contact Info) Description 07/05/2019 Transcribed Document [facility] [place] Family Medicine [address] [place] [address] ProviderMik MD [address] [place] [address] Social History Tobacco Use Types Packs/Day [...] Office Visit [facility] Pulmonology - [address] [place] [address] Ben Barrios MD [address] [place] [address] documented as of this encounter Visit Diagnoses Not on filedocumented in this encounter Care Teams 911 Telecommunicator Relationship Specialty Start Date End Date Amie Pena MD [address] [place] [address] [place] [address] PCP - General Family Medicine 10/31/22 04/08/23 Marvel Grayson MD [address] [place] [address] [place] [address] PCP - General Family Medicine 05/17/23 Marvel Grayson [address] [place] [address] Family Practice 04/09/23 documented as of this encounter
--- OUTSIDE RECORDS SUMMARY | 2025-08-06 11:52 | XMS_ITS | Encounter Summary ---
Author Organization [employer] ([place], [place], [place], [place], [place]) Address [address] [place] [address] Care Team Providers Care Souvenir Street Vendor Name Role Phone Amie Pena MD Primary Care Provider [phone] Marvel Grayson MD Primary Care Provider [phone] Encounter Details Date Type Department Care Team (Late st Contact Info) Description 11/30/2020 Transcribed Document [facility] [place] Family Medicine [facility] [place] [address] ProviderMik MD [address] [place] [address] Social History Tobacco Use Types Packs/Day [...] : Low risk (0) [place] Interventions : [place] precautions for safety used Erinn Powell RN - 11/30/2020 16:17 EDT Electronically signed by [place] [facility] Conversion Director Epidemiology Cerner at 12/16/2022 10:50 AM CDT documented in this encounter Plan of Treatment Upcoming Encounters Date Type Department Care Team (Late st Contact Info) Description 11/03/2025 12:45 PM EST Office Visit [facility] Pulmonology - [address] [place] [address] Ben Barrios MD [address] [place] [address] documented as of this encounter Visit Diagnoses Not on filedocumented in this encounter Care Teams Souvenir Street Vendor Relationship Specialty Start Date End Date Amie Pena MD [address] [place] [address] [place] [address] PCP - General Family Medicine 10/31/22 04/08/23 Marvel Grayson MD [address] [place] [address] [place] [address] PCP - General Family Medicine 05/17/23 Marvel Grayson [address] [place] [address] Family Practice 04/09/23 documented as of this encounter
--- OUTSIDE RECORDS SUMMARY | 2025-08-06 11:52 | XMS_ITS | Encounter Summary ---
Author Organization [employer] ([place], [place], [place], [place], [place]) Address [address] [place] [address] Care Team Providers Care Shop Estimator Name Role Phone Amie Pena MD Primary Care Provider [phone] Marvel Grayson MD Primary Care Provider [phone] Encounter Details Date Type Department Care Team (Late st Contact Info) Description 07/05/2019 Transcribed Document [facility] [place] [address] [place] [address] ProviderMik MD [address] [place] [address] Social History Tobacco Use Types Packs/Day [...] [place], PT - 07/06/2019 10:21 EST Assisted Goals Other PT LTG Grid Goal #1 [...] on goals and PT treatment while at [facility]. Advised pt remain in chair until staff [...] 11/03/2025 12:45 PM EST Office Visit [facility] Pulmonology - [address] [place] [address] Ben Barrios MD [address] [place] [address] documented as of this encounter Visit Diagnoses Not on filedocumented in this encounter Care Teams Shop Estimator Relationship Specialty Start Date End Date Amie Pena MD [address] [place] [address] PCP - General Family Medicine 10/31/22 04/08/23 Marvel Grayson MD [address] [place] [address] PCP - General Family Medicine 05/17/23 Marvel Grayson [address] [place] [address] Family Practice 04/09/23 documented as of this encounter
--- OUTSIDE RECORDS SUMMARY | 2025-08-06 11:52 | XMS_ITS | Encounter Summary ---
Author Organization [employer] ([place], [place], [place], [place], [place]) Address [address] [place] [address] Care Team Providers Care Modeling Instructor Name Role Phone Amie Pena MD Primary Care Provider [phone] Marvel Grayson MD Primary Care Provider [phone] Encounter Details Date Type Department Care Team (Late st Contact Info) Description 04/18/2019 Transcribed Document [facility] Family Medicine [address] [place] [address] ProviderMik MD [address] [place] [address] Social History Tobacco Use Types Packs/Day [...] of the form. Electronically signed by [place], [facility] Conversion Radiologic Therapist Cerner at 12/16/2022 10:45 AM CDT documented in this encounter Plan of Treatment Upcoming Encounters Date Type Department Care Team (Late st Contact Info) Description 11/03/2025 12:45 PM EST Office Visit [facility] Pulmonology - [address] [place] [address] Ben Barrios MD [address] [place], [place] [address] documented as of this encounter Visit Diagnoses Not on filedocumented in this encounter Care Teams Modeling Instructor Relationship Specialty Start Date End Date Amie Pena MD [address] [place] [address] [place] [address] PCP - General Family Medicine 10/31/22 04/08/23 Marvel Grayson MD [address] [place] [address] PCP - General Family Medicine 05/17/23 Marvel Grayson [address] [place] [address] Family Practice 04/09/23 documented as of this encounter
--- OUTSIDE RECORDS SUMMARY | 2025-08-06 11:52 | XMS_ITS | Encounter Summary ---
Author Organization [employer] ([place], [place], [place], [place], [place]) Address [address] [place] [address] Care Team Providers Care Dynamotor Repairer Name Role Phone Amie Pena MD Primary Care Provider [phone] Marvel Grayson MD Primary Care Provider [phone] Encounter Details Date Type Department Care Team (Late st Contact Info) Description 07/05/2019 Transcribed Document [facility] [place] [facility] [place] [address] ProviderMik MD [address] [place] [address] Social History Tobacco Use Types Packs/Day [...] Shabazz Emergency Contact #1 Phone Number : [phone] Emergency Contact #1 Relationship : Emergency Contact #2 : Rebeca Emergency Contact #2 Phone Number : [phone] Emergency Contact #2 Relationship : sister Primary Language : Slovenian Preferred Communication Mode : Verbal Communication Barrier [...] Scale Risk Level : 25-45 Medium Risk Printer Fall Interventions : Adequate lighting, Assistive devices [...] : Refuses FDA approved medications Implant/Device Type, Aligning Inspector and Model : none Max Pereyra RN [...] Source : Chart Height Entry Format : [place] Height, Feet : 5 ft(Converted to: 152 cm, 60 Inch) Height, Inches : 11 Inch(Converted to: 0 ft 11 Inch, 27.94 cm) Clinical Height : 180.34 cm Weight Source : Bed scale Weight Entry Format : [place] Clinical Dosing Weight : 90.91 kg Weight, Pounds : 200 lb Body Surface Area (BSA) : 2.11 m2 Body Mass Index : 28 kg/m2 (HI) Ursa Body Weight : 70 kg Max Pereyra [...] Max Pereyra RN - 07/05/2019 22:31 EDT Electronically signed by Karthikeyan Bean Conversion Cigarette Making Machine Hopper Feeder Cerner at 12/16/2022 10:43 AM CDT documented in this encounter Plan of Treatment Upcoming Encounters Date Type Department Care Team (Late st Contact Info) Description 11/03/2025 12:45 PM EST Office Visit [facility] Pulmonology - [address] [place] [address] Ben Barrios MD [address] [place] [address] documented as of this encounter Visit Diagnoses Not on filedocumented in this encounter Care Teams Dynamotor Repairer Relationship Specialty Start Date End Date Amie Pena MD [address] [place] [address] [place] [address] PCP - General Family Medicine 10/31/22 04/08/23 Marvel Grayson MD [address] [place] [address] PCP - General Family Medicine 05/17/23 Marvel Grayson [address] [place] [address] Family Practice 04/09/23 documented as of this encounter
--- OUTSIDE RECORDS SUMMARY | 2025-08-06 11:52 | XMS_ITS | Encounter Summary ---
Author Organization [employer] ([place], [place], [place], [place], [place]) Address [address] [place] [address] Care Team Providers Care Raw Stock Drier Tender Name Role Phone Amie Pena MD Primary Care Provider [phone] Marvel Grayson MD Primary Care Provider [phone] Encounter Details Date Type Department Care Team (Late st Contact Info) Description 04/18/2019 Transcribed Document [facility] [place] [facility] [place] [address] ProviderMik MD [address] [place] [address] Social History Tobacco Use Types Packs/Day [...] Office Visit [facility] Pulmonology - [address] [place] [address] Ben Barrios MD [address] [place], [place] [address] documented as of this encounter Visit Diagnoses Not on filedocumented in this encounter Care Teams Raw Stock Drier Tender Relationship Specialty Start Date End Date Amie Pena MD [address] [place] [address] [place] [address] PCP - General Family Medicine 10/31/22 04/08/23 Marvel Grayson MD [address] [place] [address] [place] [address] PCP - General Family Medicine 05/17/23 Marvel Grayson [address] [place], [place] [address] Family Practice 04/09/23 documented as of this encounter
--- OUTSIDE RECORDS SUMMARY | 2025-08-06 11:52 | XMS_ITS | Referral Summary ---
Author Organization [employer] ([place], [place], [place], [place], [place]) Address [address] [place] [address] Care Team Providers Care Hand Frame Surgical Elastic Knitter Name Role Phone Marvel Grayson MD Primary Care Provider [phone] Encounters Date Type Department Care Team Description 05/28/2025 3:24 PM EDT - 05/28/2025 11:59 PM EDT Hospital Encounter [facility] Diagnostic Imaging - [facility] [address] [place] [address] Ben Barrios MD Community acquired bacterial pneumonia Discharge Disposition: Home or Self Care 05/28/2025 Travel 05/28/2025 1:45 PM EDT Office Visit [facility] Pulmonology - [facility] [address] [place] [address] Ben Barrios MD Solitary pulmonary [...] # 100 Tab, 0 Refill(s), Pharmacy: [facility]/pharmacy #[id number], 180.34, cm, 10/23/21 13:50:00 EST, CLINICALHEIGHT, [...] days 09/16/19 25 Active albuterol 90 mcg/actuation inhalerIndications :COPD (chronic obstructive pulmonary disease) (HCC) Inhale 2 puffs by mouth every 4 (four) hours as needed for wheezing. 1 Inhaler 11/28/19 25 026 Active ipratropium-albute roL (DUO-NEB) 0.5 mg-3 mg(2.5 mg base)/3 mL nebulizer solutionIndication s:COPD with acute exacerbation (HCC) Inhale 3 mLs by nebulization every 4 (four) hours as needed for wheezing or shortness of breath. 240 mL 6 11/28/19 25 026 Active HYDROcodone-acetam inophen (NORCO) [...] by mouth daily. 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 Ben Barrios MD [facility] DIAGNOSTIC IMAGING ORDERABLE S Final Result * [...] by Mabel Stokes PA-C. Ben Barrios MD [facility] CT ORDERABLES Final Result * LIPID PANEL [...] 2:40 PM EDT 01/25/2022 12:28 AM EDT [facility] Historical Provider PATHOLOGY/CYTOLOGY MAURICIO THOMAS Edited Result - Final [facility] [address] [phone] * MM digital mammo screen bilateral (03/03/2021 5:10 PM EDT) Anatomical Region Laterality Modality Breast Bilateral Mammography 03/03/2021 5:10 PM EDT Narrative 03/04/2021 2:22 PM EDT PROCEDURE: Bilateral digital screening mammogram. REASON FOR EXAM: Routine screening. FAMILY HISTORY: Intermediate family history of breast cancer COMPARISON STUDY: [facility] 2015 and 2019 FINDINGS: Craniocaudal and mediolateral [...] the next mammogram. At our facility, a [place] marker is positioned over a visible skin lesion and a linear marker is used to indicate a scar. A triangular marker is placed on a self reported palpable finding. cc: Procedure Note Oscar Elizondo MD - 12/19/2022 PROCEDURE: Bilateral digital screening mammogram. REASON FOR EXAM: Routine screening. FAMILY HISTORY: Intermediate family history of breast cancer COMPARISON STUDY: [facility] 2015 and 2019 FINDINGS: Craniocaudal [...] the next mammogram. At our facility, a [place] marker is positioned over a visible skin lesion and a linear marker is used to indicate a scar. A triangular marker is placed on a self reported palpable finding. cc: Oscar Elizondo MD IMG MAMMOGRAPHY ORDERABLES Keshia l Result from Last 3 Months or Most Recently Relevant to Health Maintenance Insurance [facility] ADV Advance Directives For more information, please contact: [phone] * Full Code (Latest Code Status on File) Date Activated Date Inactivated Comments 07/24/2023 1:02 PM 07/25/2023 2:38 PM If no puls e: No intervention If has pulse: Use intubation, mechanical ventilation, defibrillation, ACLS medications, or cardioversion as indicated. Call DIGITAL ANALYTICS MANAGER * Full Code Date Activated Date Inactivated Comments 07/24/2023 11:31 AM 07/24/2023 1:02 PM * Full Code Date Activated Date Inactivated Comments 07/24/2023 7:21 AM 07/24/2023 11:31 AM Care Teams Hand Frame Surgical Elastic Knitter Relationship Specialty Start Date End Date Marvel Grayson MD PCP - General Family Medicine 05/17/23 Marvel Grayson [address] [place] [address] Family Practice 04/09/23
--- OUTSIDE RECORDS SUMMARY | 2025-08-06 11:52 | XMS_ITS | Encounter Summary ---
Author Organization [employer] ([place], [place], [place], [place], [place]) Address [address] [place] [address] Care Team Providers Care Metal Furniture Assembler Name Role Phone Amie Pena MD Primary Care Provider [phone] Marvel Grayson MD Primary Care Provider [phone] Encounter Details Date Type Department Care Team (Late st Contact Info) Description 07/05/2019 Transcribed Document [facility] Family Medicine [address] [place] [address] ProviderMik MD [address] [place] [address] Social History Tobacco Use Types Packs/Day [...] at 40 Years. Removal of ovarian cyst ([id number]). I&D to left finger. Hysterectomy ([id number]).. Family history: No family history items have [...] EDT Height Source Estimated Height Entry Format [place] Height/Length, POLISH (ft) 5 ft Height/Length POLISH 11 Inch CLINICALHEIGHT 180.34 cm [place] Body Weight 70.31 kg Weight Source, ED Critical estimated dosing weight Weight Entry Format [place] Weight Bah[place]ian lb 200 lb CLINICALWEIGHT 90.91 kg Body [...] The Rhythm is sinus tachycardia. , The [place] is normal. , T wave No changes, Ectopy None, P wave and HI interval WNL, QT interval WNL, QRS interval [...] 14.4 % LOW Lymph # 2.14 K/uL [place] % 12.6 % HI [place] # 1.87 K/uL HI Eos % 0.6 % Eos # 0.09 K/uL Baso % 0.4 % Baso # 0.06 K/uL Slide Review No IG# 0 x10(3)/uL IG% 0 % Urine Type. U CleanCatch Urine Color Yellow Urine Appearance Hazy Urine Specific [place] 1.025 Urine pH Dipstick 5.5 LOW Urine [...] given IV steroids, abx, IVF. Hospitalist at [facility] to accept. Impression and Plan Diagnosis Pneumonia - Discharge, Medical Hypoxia - Discharge, Medical Plan Condition: Stable. Disposition: Admit Admit/Transfer/Discharge: ED Transfer (Order): Start: 07/05/2019 19:00 EDT, For pneumonia, hypoxia, Unit Type: Other (use Special Instructions), [facility] Darci. documented in this encounter Plan of Treatment Upcoming Encounters Date Type Department Care Team (Late st Contact Info) Description 11/03/2025 12:45 PM EST Office Visit [facility] Pulmonology - [address] [place] [id number] Ben Barrios MD [address] [place], [place] [id number] documented as of this encounter Visit Diagnoses Not on filedocumented in this encounter Care Teams Metal Furniture Assembler Relationship Specialty Start Date End Date Amie Pena MD [address] [place] [address] [place] [address] PCP - General Family Medicine 10/31/22 04/08/23 Marvel Grayson MD [address] [place] [address] [place] [address] PCP - General Family Medicine 05/17/23 Marvel Grayson [address] [place] [address] Family Practice 04/09/23 documented as of this encounter
--- OUTSIDE RECORDS SUMMARY | 2025-08-06 11:52 | XMS_ITS | Encounter Summary ---
Author Organization [employer] ([place], [place], [place], [place], [place]) Address [address] [place] [address] Care Team Providers Care Miller Helper Distillery Name Role Phone Amie Pena MD Primary Care Provider [phone] Marvel Grayson MD Primary Care Provider [phone] Encounter Details Date Type Department Care Team (Late st Contact Info) Description 07/06/2019 Transcribed Document [facility] [place] [address] [place] [address] ProviderMik MD [address] [place] [address] Social History Tobacco Use Types Packs/Day [...] Mik Thorne MD - 07/06/2019 9:37 AM [employer] LABORATORY TECHNICIAN [facility] Authorization Entered On: 07/06/2019 9:38 EST Performed On: 07/06/2019 9:37 EST by SHAAN RICHTER Rn-Utilization Review Primary Insurance Authorization Authorization and Policy Numbers : Insurance 1 Health Plan: [employer] Policy Number: [id number] Authorization Number: Insurance Primary Name : [employer] Authorization Status-Primary : Awaiting callback Reference Number-Primary : [id number] Authorized Service Begin Date-Primary : 07/05/2019 EDT Authorization Comments-Primary : Reference number retrieved from [facility] portal. Historical Authorization Comments-Primary : No Authorization Comments Found SHAAN RICHTER Rn-Utilization Review - 07/06/2019 9:37 EST documented in this encounter Plan of Treatment Upcoming Encounters Date Type Department Care Team (Late st Contact Info) Description 11/03/2025 12:45 PM EST Office Visit [facility] Pulmonology - [address] [place] [id number] Ben Barrios MD [address] [place] [address] documented as of this encounter Visit Diagnoses Not on filedocumented in this encounter Care Teams Miller Helper Distillery Relationship Specialty Start Date End Date Amie Pena MD [address] [place] [address] [place] [address] PCP - General Family Medicine 10/31/22 04/08/23 Marvel Grayson MD [address] [place] [address] [place] [address] PCP - General Family Medicine 05/17/23 Marvel Grayson [address] [place] [address] Family Practice 04/09/23 documented as of this encounter
--- OUTSIDE RECORDS SUMMARY | 2025-08-06 11:52 | XMS_ITS | Encounter Summary ---
Author Organization [employer] ([place], [place], [place], [place], [place]) Address [address] [place] [address] Care Team Providers Care Medical Lead Name Role Phone Amie Pena MD Primary Care Provider [phone] Marvel Grayson MD Primary Care Provider [phone] Encounter Details Date Type Department Care Team (Late st Contact Info) Description 07/05/2019 Transcribed Document [facility] [place] [address] [place] [address] ProviderMik MD [address] [place] [address] Social History Tobacco Use Types Packs/Day [...] [facility] Pulmonology - [address] [place] [address] Ben Barrios MD [address] [place] [address] documented as of this encounter Visit Diagnoses Not on filedocumented in this encounter Care Teams Medical Lead Relationship Specialty Start Date End Date Amie Pena MD [address] [place] [facility] [place] [address] PCP - General Family Medicine 10/31/22 04/08/23 Marvel Grayson MD [address] [place] [address] PCP - General Family Medicine 05/17/23 Marvel Grayson [address] [place] [address] Family Practice 04/09/23 documented as of this encounter
--- OUTSIDE RECORDS SUMMARY | 2025-08-06 11:52 | XMS_ITS | Encounter Summary ---
Author Organization [employer] ([place], [place], [place], [place], [place]) Address [address] [place] [address] Care Team Providers Care Relay Assembler Name Role Phone Amie Pena MD Primary Care Provider [phone] Marvel Grayson MD Primary Care Provider [phone] Encounter Details Date Type Department Care Team (Late st Contact Info) Description 04/18/2019 Transcribed Document [facility] [place] [address] [place] [address] ProviderMik MD [address] [place] [address] Social History Tobacco Use Types Packs/Day [...] MD-ORT Finalized Date/Time: 07/16/20 14:19:44 Pt. Name: JUANITATIFFANIEO.B./Sex: 1970 Female Med Rec #: [id number] Physician: TASHA ROLDAN MD-INT Financial #: [id number] Pt. Type: I Room/Bed: [facility] Admit/Disch: 04/18/19 04:50:00 - 04/18/19 15:04:00 [place] [facility] [place] Case Attendance Entry 1 Entry 2 Entry 3 Case Attendee VU HAYS MD-CARITO MEJIA PA ABNEY, MARSHALL, DIE ENGRAVER Role Performed Surgeon/Proceduralist, Physician assistant front desk manager DIE ENGRAVER/Nurse Toy Trains And Accessories Salesperson First Time In 04/18/19 07:36:00 04/18/19 07:36:00 [...] OR OTHER, ATTENDEE #1 TECH Role Performed Staple Cutter, First Scrub, First Ambulette Driver, Ancillary Time In 04/18/19 07:36:00 04/18/19 07:36:00 04/18/19 07:36:00 Time Out 04/18/19 09:19:00 04/18/19 09:19:00 04/18/19 09:19:00 Procedure Lumbar Fusion Posterior Lumbar Fusion Posterior Lumbar Fusion Posterior Other Attendee NAILA PFLUGHAUPT Superficial Wound Closed By: Last Modified By: GERMIAN CHRITSIAN, GERMAIN FOY, GERMAIN FOY RN 04/18/19 09:19:38 04/18/19 09:19:38 04/18/19 09:19:38 Entry 7 Entry 8 Entry 9 Case Attendee OTHER, ATTENDEE #2 Iona Landa, OTHER, ATTENDEE #3 Polisher Implant Role Performed Vendor [place] Floors Installer Vendor Time In 04/18/19 07:36:00 04/18/19 07:36:00 [...] OMA BRAVO, Maria Brown Rn Role Performed DIE ENGRAVER/Nurse Toy Tra[employer] Accessories Salesperson Staple Cutter, First Time In 04/18/19 08:40:00 04/18/19 08:55:00 Time Out 04/18/19 08:55:00 04/18/19 09:19:00 Procedure Lumbar Fusion Posterior Lumbar Fusion Posterior Other Attendee BREAK BREAK Superficial Wound Closed By: Last Modified By: GERMAIN CHRISTIAN, GERMAIN FOY RN 04/18/19 09:19:38 04/18/19 09:19:38 [facility] IntraOp Case Attendance Audit 04/18/19 09:19:38 Review Engineer: CRMOSS Modifier: CRMOSS 1 <+> Time Out [...] <*> Procedure Lumbar Fusion Posterior 04/18/19 08:55:27 Review Engineer: CRMOSS Modifier: CRMOSS 10 <+> Time Out 10 <*> Procedure Lumbar Fusion Posterior <+> 11 Case Attendee <+> 11 Role Performed <+> 11 Time In <+> 11 Procedure <+> 11 Other Attendee 04/18/19 08:44:23 Review Engineer: CRMOSS Modifier: CRMOSS 1 <*> Procedure Lumbar [...] Procedure <+> 10 Other Attendee 04/18/19 08:04:43 Review Engineer: CRMOSS Modifier: CRMOSS 1 <*> Procedure Lumbar [...] Procedure <+> 9 Other Attendee 04/18/19 07:58:01 Review Engineer: CRMOSS Modifier: CRMOSS 1 <+> Time In [...] [facility] IntraOp Case Times Audit 04/18/19 09:19:33 Review Engineer: CRMOSS Modifier: CRMOSS <+> 1 Out Room Time <+> 1 Stop Time 04/18/19 09:12:31 Review Engineer: CRMOSS Modifier: CRMOSS <+> 1 Stop Time 04/18/19 08:11:46 Review Engineer: CRMOSS Modifier: CRMOSS <+> 1 Start Time [facility] IntraOp Communication Entry 1 Communication To Family/Significant other Comment START OF PROCEDURE Communication By GERMAIN CHRISTIAN RN Date and Time 04/18/19 08:12:00 Last Modified By: GERMAIN CHRISTIAN RN 04/18/19 08:12:18 [facility] IntraOp Communication Audit 04/18/19 08:12:18 Review Engineer: CRMOSS Modifier: CRMOSS <+> 1 Date and [...] Modified By: GERMAIN CHRISTIAN RN 04/18/19 07:59:17 [facility] [place] Fire Risk Assessment Entry 1 Fire [...] Modified By: GERMAIN CHRISTIAN RN 04/18/19 07:59:46 [facility] [place]Op General Case Soap Chipper 1 Case Information OR OR 01 [facility] Case Level 1 Room Verified Yes Wound Class I - Clean Specialty SN Neurosurgery Anesthesia Type General ASA Class 3 Diagnosis Preop Diagnosis L5-S1 STENOSIS, DDD Postop Same As Preop No Postop Diagnosis DICTATED BY MD Last Modified By: GERMAIN CHRISTIAN RN 04/18/19 08:04:09 [facility]Op Implant Log Entry 1 Entry 2 Entry 3 Type Implant (Synthetic) Implant (Synthetic) Implant (Synthetic) Implant Log Implant Type Other Other Other Tissue Implant Type Implant TB DIVERTED 1 ALLGRFT TB DIVERTED 1 ALLGRFT TB STRAIGHT 1 ALLGRFT Identification [id number] Description Implant Quantity 2 1 1 Implant Site L5-S1 L5-S1 L5-S1 Implant Identification Model Number Implant [id number] Identification Serial Number Implant Identification Lot Number Implant Musculoskeletal Musculoskeletal Musculoskeletal Identification Transplant Fnd Transplant Fnd Transplant Fnd Montessori Program Director Name: Implant [id number] Identification Catalog Number Implant Size Implant Has an Yes Yes Yes Expiration Date Implant Expiration 11/14/20 10/16/20 06/29/20 Date Wasted Radioactive Material Time Implanted Tissue Implant Continue for Tissue Implant Documentation Tissue Identification Number Graft Prep Per Montessori Program Director Instructions: Tissue Preparation Method: Reconstitution Solution: Reconstitution Solution Lot Number Reconstitution Solution Expiration Date: Thawing Solution Thawing Solution Lot Number Thawing Solution Expiration Date Preparation Materials, Other Preparation Materials, Other Lot Number Preparation Materials, Other Expiration Date Tissue Prepared/Processed By Montessori Program Director Paperwork Completed Implant Type Comment Last Modified By: GERMAIN CHRISTIAN RN MOSS, CHRISTY, RN MOSS, CHRISTY, RN 04/18/19 08:25:52 04/18/19 09:12:10 04/18/19 09:12:10 Entry 4 Entry 5 Entry 6 Type Implant (Synthetic) Implant (Synthetic) Implant (Synthetic) Implant Log Implant Type Mesh Hardware Hardware Tissue Implant Type Implant IMP OPTIMESH SCR PEDICLE SCR SET [id number] Identification [id number] Description Implant Quantity 1 3 3 Implant Site L5-S1 L5 -S1 L5 - S1 Implant Identification Model Number Implant Identification Serial Number Implant [id number] Identification Lot Number Implant Spineology Spineology Spineology Identification Montessori Program Director Name: Implant [id number] Identification Catalog Number Implant Size Implant Has an Yes Yes Yes Expiration Date Implant Expiration 01/02/24 08/03/23 08/03/23 Date Wasted Radioactive Material Time Implanted Tissue Implant Continue for Tissue Implant Documentation Tissue Identification Number Graft Prep Per Montessori Program Director Instructions: Tissue Preparation Method: Reconstitution Solution: Reconstitution Solution Lot Number Reconstitution Solution Expiration Date: Thawing Solution Thawing Solution Lot Number Thawing Solution Expiration Date Preparation Materials, Other Preparation Materials, Other Lot Number Preparation Materials, Other Expiration Date Tissue Prepared/Processed By Montessori Program Director Paperwork Completed Implant Type Comment Last Modified By: GERMAIN CHRISTIAN RN MOSS, CHRISTY, RN MOSS, CHRISTY, RN 04/18/19 08:25:52 04/18/19 08:25:52 04/18/19 08:53:45 Entry 7 Entry 8 Entry 9 Type Implant (Synthetic) Implant (Synthetic) Implant (Synthetic) Implant Log Implant Type Hardware Hardware Hardware Tissue Implant Type Implant SCR SET [id number] SCR PEDICLE ARCHANA PERC FIX [id number] Identification [id number] Description Implant Quantity 1 1 1 Implant Site L5 - S1 L5- S1 L 5- S1 Implant Identification Model Number Implant Identification Serial Number Implant [id number] Identification Lot Number Implant Spineology Spineology Spineology Identification Montessori Program Director Name: Implant [id number] Identification Catalog Number Implant Size Implant Has an Yes Yes Yes Expiration Date Implant Expiration 07/04/23 07/04/23 03/03/23 Date Wasted Radioactive Material Time Implanted Tissue Implant Continue for Tissue Implant Documentation Tissue Identification Number Graft Prep Per Montessori Program Director Instructions: Tissue Preparation Method: Reconstitution Solution: Reconstitution Solution Lot Number Reconstitution Solution Expiration Date: Thawing Solution Thawing Solution Lot Number Thawing Solution Expiration Date Preparation Materials, Other Preparation Materials, Other Lot Number Preparation Materials, Other Expiration Date Tissue Prepared/Processed By Montessori Program Director Paperwork Completed Implant Type Comment Last Modified By: GERMAIN CHRISTIAN RN MOSS, CHRISTY, RN MOSS, CHRISTY, RN 04/18/19 09:02:46 04/18/19 09:02:46 04/18/19 09:02:46 Entry 10 Entry 11 Type Implant (Synthetic) Implant (Synthetic) Implant Log Implant Type Hardware Hardware Tissue Implant Type Implant ARCHANA PERC FIX [id number] ARCHANA PERC FIX [id number] Identification Description Implant Quantity 1 1 Implant Site L 5- S1 L 5- S1 Implant Identification Model Number Implant Identification Serial Number Implant [id number] Identification Lot Number Implant Spineology Spineology Identification Montessori Program Director Name: Implant [id number] Identification Catalog Number Implant Size Implant Has an Yes Yes Expiration Date Implant Expiration 07/04/23 09/03/23 Date Wasted Radioactive Material Time Implanted Tissue Implant Continue for Tissue Implant Documentation Tissue Identification Number Graft Prep Per Montessori Program Director Instructions: Tissue Preparation Method: Reconstitution Solution: Reconstitution Solution Lot Number Reconstitution Solution Expiration Date: Thawing Solution Thawing Solution Lot Number Thawing Solution Expiration Date Preparation Materials, Other Preparation Materials, Other Lot Number Preparation Materials, Other Expiration Date Tissue Prepared/Processed By Montessori Program Director Paperwork Completed Implant Type Comment Last Modified By: GERMAIN CHRISTIAN RN MOSS, CHRISTY, RN 04/18/19 09:02:46 04/18/19 09:12:10 [facility] IntraOp Implant Log Audit 04/18/19 09:12:10 Review Engineer: CRMOSS Modifier: CRMOSS <+> 9 Implant Identification Description <+> 9 Implant Identification Lot Number <+> 9 Implant Identification Montessori Program Director Name: <+> 9 Implant Expiration Date <+> 9 Implant Site <+> 9 Implant Quantity <+> 9 Implant Identification Catalog Number <+> 9 Implant Type <+> 9 Implant Has an Expiration Date <+> 9 Type <+> 10 Implant Identification Description <+> 10 Implant Identification Lot Number <+> 10 Implant Identification Montessori Program Director Name: <+> 10 Implant Expiration Date <+> 10 Implant Site <+> 10 Implant Quantity <+> 10 Implant Identification Catalog Number <+> 10 Implant Type <+> 10 Implant Has an Expiration Date <+> 10 Type <+> 11 Implant Identification Description <+> 11 Implant Identification Lot Number <+> 11 Implant Identification Montessori Program Director Name: <+> 11 Implant Expiration Date <+> 11 Implant Site <+> 11 Implant Quantity <+> 11 Implant Identification Catalog Number <+> 11 Implant Type <+> 11 Implant Has an Expiration Date <+> 11 Type 04/18/19 09:02:46 Review Engineer: CRMOSS Modifier: CRMOSS <+> 5 Implant Identification Description <+> 5 Implant Identification Lot Number <+> 5 Implant Identification Montessori Program Director Name: <+> 5 Implant Expiration Date <+> 5 Implant Site <+> 5 Implant Quantity <+> 5 Implant Identification Catalog Number <+> 5 Implant Type <+> 5 Implant Has an Expiration Date <+> 5 Type <+> 6 Implant Identification Description <+> 6 Implant Identification Lot Number <+> 6 Implant Identification Montessori Program Director Name: <+> 6 Implant Expiration Date <+> 6 Implant Site <+> 6 Implant Quantity <+> 6 Implant Identification Catalog Number <+> 6 Implant Type <+> 6 Implant Has an Expiration Date <+> 6 Type <+> 7 Implant Identification Description <+> 7 Implant Identification Lot Number <+> 7 Implant Identification Montessori Program Director Name: <+> 7 Implant Expiration Date <+> 7 Implant Site <+> 7 Implant Quantity <+> 7 Implant Identification Catalog Number <+> 7 Implant Type <+> 7 Implant Has an Expiration Date <+> 7 Type <+> 8 Implant Identification Description <+> 8 Implant Identification Lot Number <+> 8 Implant Identification Montessori Program Director Name: <+> 8 Implant Expiration Date <+> 8 Implant Site <+> 8 Implant Quantity <+> 8 Implant Identification Catalog Number <+> 8 Implant Type <+> 8 Implant Has an Expiration Date <+> 8 Type 04/18/19 08:53:45 Review Engineer: CRMOSS Modifier: CRMOSS <+> 4 Implant Identification Description <+> 4 Implant Identification Lot Number <+> 4 Implant Identification Montessori Program Director Name: <+> 4 Implant Expiration Date <+> [...] Medication/Irrigant PB irrigation 1000ml ANESTHETIC solution - [id number] COCKTAIL-LIS Combo Med List Time Administered Route [...] Type Fluoroscopy Fluoroscopy Type C-Arm Site L5-S1 Boning Room Worker Name Iona Landa, Polisher Implant Protective Devices Yes Used Last Modified By: GERMAIN CHRISTIAN RN 04/18/19 08:16:54 Case Comments <None> Finalized By: Ariella Desouza RN Document Signatures Signed By: GERMAIN CHRISTIAN RN 04/18/19 09:20 Ariella Desouza RN 07/16/20 14:19 Unfinalized History Date/Time Username Reason for Unfinalizing Freetext Reason for Unfinalizing 07/16/20 14:19 REGINA Chart Audit documented in this encounter Plan of Treatment Upcoming Encounters Date Type Department Care Team (Late st Contact Info) Description 11/03/2025 12:45 PM EST Office Visit [facility] Pulmonology - [address] [place] [address] Ben Barrios MD [address] [place] [address] documented as of this encounter Visit Diagnoses Not on filedocumented in this encounter Care Teams Relay Assembler Relationship Specialty Start Date End Date Amie Pena MD [address] [place] [address] PCP - General Family Medicine 10/31/22 04/08/23 Marvel Grayson MD [address] [place] [address] PCP - General Family Medicine 05/17/23 Marvel Grayson [address] [place] [address] Family Practice 04/09/23 documented as of this encounter
--- OUTSIDE RECORDS SUMMARY | 2025-08-06 11:52 | XMS_ITS | Encounter Summary ---
Author Organization [employer] ([place], [place], [place], [place], [place]) Address [address] [place] [address] Care Team Providers Care Academic Affairs Assistant Name Role Phone Amie Pena MD Primary Care Provider [phone] Marvel Grayson MD Primary Care Provider [phone] Encounter Details Date Type Department Care Team (Late st Contact Info) Description 04/18/2019 Transcribed Document [facility] [place] [place] [address] [place] [address] ProviderMik MD [address] [place] [address] Social History Tobacco Use Types Packs/Day [...] DATE OF PROCEDURE. April 18, 2019 PROCEDURE: [id number]-xmeuer level interbody arthrodesis, posterolateral technique, single space, including wgmetsqrjqeqj-D7-H7 72789-41 placement of interbody mechanical structural bone graft, structural bone,-L5-S1, additional primary procedure [id number]-koghov level, segmental instrumentation, L5-S1, dual rods and screws. Additional primary procedure 75422-dogg graft harvest for spine surgery, autograft, right iliac crest, structural graft. 40686-olvmauoer, structural bone graft, for spine surgery. PREOPERATIVE DIAGNOSIS(ES): Spinal stenosis. Posterior spondylolisthesis. Disc degeneration. Facet joint spondylosis. L5-S1 POSTOPERATIVE DIAGNOSIS(ES): Posterior Spondylolisthesis. Spinal stenosis. Disc degeneration. Facet joint spondylosis. L5-S1 SURGEON: Vu Hays MD. BUSINESS APPLICATIONS ANALYST: Mr. Johnny Flores The duties of the curriculum assistant principal are to assist in transferring the patient [...] L5-S1, severe foraminal stenosis Spondylolisthesis, 5 mm H0-G0-hvjpwba, posteriorly, L5 and S1 SURGICAL INDICATORS: Symptoms-severe [...] Modification of activity, weight loss, IMAGING STUDIES Z-cebt-gmyqe 1 spondylolisthesis L5-S1, slippage L5 on S1, [...] Diagnostic SI blocks-no improvement in symptoms. Surgical lxqoxlyx-vwpllt-khq evidence is consistent that the patient's symptoms [...] would be separation for some form of retirement, institutionalization patient etc., or surgical treatment. I [...] administered within 1 hour of incision Antibiotics fusehd-emafq-diwrsmhgeb cephalosporin, Ancef Antibiotics are discontinued within 24 [...] and discectomy site. Interbody arthrodesis L5-S1, TLIF approach-94730 far lateral approach, 12 cm off the [...] fusion-with placement of interbody structural bone graft -31771-yqamirme 51 Interbody fusion was performed by placement [...] traversing S1 nerve root. Posterior instrumentation L5-S1 nonsegmental.-76486-eqxsigz screw instrumentation through separate incisions, right and [...] Vu Hays M.D. Electronically signed by [facility] Conversion Boring And Filling Machine Operator Cerner at 12/16/2022 10:48 AM CDT documented in this encounter Plan of Treatment Upcoming Encounters Date Type Department Care Team (Late st Contact Info) Description 11/03/2025 12:45 PM EST Office Visit [facility] Pulmonology - [address] [place] [address] Ben Barrios MD [address] [place] [address] documented as of this encounter Visit Diagnoses Not on filedocumented in this encounter Care Teams Academic Affairs Assistant Relationship Specialty Start Date End Date Amie Pena MD [address] [place] [address] [place] [address] PCP - General Family Medicine 10/31/22 04/08/23 Marvel Grayson MD [address] [place] [address] [place] [address] PCP - General Family Medicine 05/17/23 Marvel Grayson [address] [place] [address] Family Practice 04/09/23 documented as of this encounter
--- OUTSIDE RECORDS SUMMARY | 2025-08-06 11:52 | XMS_ITS | Encounter Summary ---
Author Organization [employer] ([place], [place], [place], [place], [place]) Address [address] [place] [address] Care Team Providers Care Architect Manager Name Role Phone Amie Pena MD Primary Care Provider [phone] Marvel Grayson MD Primary Care Provider [phone] Encounter Details Date Type Department Care Team (Late st Contact Info) Description 04/19/2019 Transcribed Document [facility] [place] [facility] [place] [address] ProviderMik MD [address] [place] [address] Social History Tobacco Use Types Packs/Day [...] Insurance 1 Health Plan: [employer] Policy Number: [id number] Authorization Number: [id number] Insurance Primary Name : [employer] Policy Number: [id number] Authorization Status-Primary : Admit approved Authorization Number-Primary : [id number] Number of Days Authorized-Primary : 1 Authorized Service Begin Date-Primary : 04/18/2019 EDT Authorized Service End Date-Primary : 04/18/2019 EDT Historical Authorization Comments-Primary : Comment 1: [employer] approved per availity for inpt 1 day -- Jesenia will f/u for clinicals herself (FREDERIC PHAM, RICKEY-Utilization Review 04/09/2019 16:00) LESLY LEOS RN-Utilization Review - 04/19/2019 7:42 EDT Electronically signed by [facility] Conversion Plant Quality Manager Cerner at 12/16/2022 10:37 AM CDT documented in this encounter Plan of Treatment Upcoming Encounters Date Type Department Care Team (Late st Contact Info) Description 11/03/2025 12:45 PM EST Office Visit [facility] Pulmonology - [address] [place] [phone] Ben Barrios MD [address] [place] [address] documented as of this encounter Visit Diagnoses Not on filedocumented in this encounter Care Teams Architect Manager Relationship Specialty Start Date End Date Amie Pena MD [address] [place] [address] [place] [address] PCP - General Family Medicine 10/31/22 04/08/23 Marvel Grayson MD [address] [place], [place] [address] [address] PCP - General Family Medicine 05/17/23 Marvel Grayson [address] [place] [address] Family Practice 04/09/23 documented as of this encounter
--- OUTSIDE RECORDS SUMMARY | 2025-08-06 11:52 | XMS_ITS | Encounter Summary ---
Author Organization [employer] ([place], [place], [place], [place], [place]) Address [address] [place] [address] Care Team Providers Care B2B Sales Executive Name Role Phone Amie Pena MD Primary Care Provider [phone] Marvel Grayson MD Primary Care Provider [phone] Encounter Details Date Type Department Care Team (Late st Contact Info) Description 07/05/2019 Transcribed Document [facility] [address] [place] [address] ProviderMik MD [address] [place] [address] Social History Tobacco Use Types Packs/Day [...] Office Visit [facility] Pulmonology - [address] [place] [id number] Ben Barrios MD [address] [place] [address] documented as of this encounter Visit Diagnoses Not on filedocumented in this encounter Care Teams B2B Sales Executive Relationship Specialty Start Date End Date Amie Pena MD [address] [place], [place] [address] [address] PCP - General Family Medicine 10/31/22 04/08/[address] [facility] [place] [address] PCP - General Family Medicine 05/17/23 Marvel Grayson [address] [place] [address] Family Practice 04/09/23 documented as of this encounter
--- OUTSIDE RECORDS SUMMARY | 2025-08-06 11:52 | XMS_ITS | Encounter Summary ---
Author Organization [employer] ([place], [place], [place], [place], [place]) Address [address] [place] [address] Care Team Providers Care Supervisor Electric Name Role Phone Amie Pena MD Primary Care Provider [phone] Marvel Grayson MD Primary Care Provider [phone] Encounter Details Date Type Department Care Team (Late st Contact Info) Description 04/18/2019 Transcribed Document [facility] Radiology [address] [place] [address] Provider, Karthikeyan Houser MD Social History Tobacco Use Types Packs/Day Years Used Date Smoking Tobacco: Never Assessed Comments Unknown Sex and Gender Information Value Date Recorded Sex Assigned at Not on file Legal Sex Female 6:09 PM CDT Gender Identity Not on file Sexual Orientation Not on file documented as of this encounter Miscellaneous Notes * Cerner Conversion Note - [facility] Mik Thorne MD - 04/18/2019 3:22 PM [...] Barley. Bulgur wheat. Millet. Bran muffins. Popcorn. Parker wafer crackers. ?? Vegetables Sweet potatoes. Spinach. Kale. Artichokes. Cabbage. Broccoli. Green peas. Carrots. Squash. ?? Fruits Berries. Pears. Apples. Oranges. Avocados. Prunes and raisins. Dried figs. ?? Meats and Other Protein Sources Pettus, kidney, preciado, and soy beans. Split peas. [...] analilia has 11 g of protein. ??? [place] seeds - 1 oz has 5.5 g [...] floor. ?? Place frequently used items in zhrt-du-jmmnr places ?? Keep electrical cables out of [...] ? Using the bathroom. ? Using household qa automation architect or toxic chemicals. ? Touching or taking [...] Description 11/03/2025 12:45 PM EST Office Visit [facility] Pulmonology - [address] [place] [id number] Ben Barrios MD [address] [place] [address] documented as of this encounter Visit Diagnoses Not on filedocumented in this encounter Care Teams Supervisor Electric Relationship Specialty Start Date End Date Amie Pena MD [facility] [place] [address] PCP - General Family Medicine 10/31/22 04/08/23 Marvel Grayson MD [address] [place] [address] PCP - General Family Medicine 05/17/23 Marvel Grayson [address], [place] [address] Family Practice 04/09/23 documented as of this encounter
--- OUTSIDE RECORDS SUMMARY | 2025-08-06 11:52 | XMS_ITS | Encounter Summary ---
Author Organization [id number] ([place], [place], [place], [place], [place]) Address [address] [place] [address] Care Team Providers Care Swimming Pool Service Technician Name Role Phone Amie Pena MD Primary Care Provider [phone] Marvel Grayson MD Primary Care Provider [phone] Encounter Details Date Type Department Care Team (Late st Contact Info) Description 04/18/2019 Transcribed Document [facility] [place] Family [place] [facility] [place] [address] ProviderMik MD [address] [place] [address] Social History Tobacco Use Types Packs/Day [...] Source : Stated Height Entry Format : [place] Height, Feet : 5 ft(Converted to: 152 cm, 60 Inch) Height, Inches : 11 Inch(Converted to: 0 ft 11 Inch, 27.94 cm) Clinical Height : 180.34 cm Weight Source : Standing scale Weight Entry Format : [place] Clinical Dosing Weight : 91.36 kg Weight, Pounds : 201 lb Body Surface Area (BSA) : 2.12 m2 Body Mass Index : 28.1 kg/m2 (HI) [place] Body Weight : 70 kg Yi Hardy Rn - 04/18/2019 6:33 EDT Health Histories Smoking Status : 10 or more cigarettes (1/2 pack or more)/day in last 30 days Smokeless Tobacco Status : Never Desires Tobacco Cessation Medication : No Reason for No Tobacco Cessation Medication : Refuses FDA approved medications Implant/Device Type, Telegraph Office Manager and Model : none Yi Hardy Rn [...] Obtained From : Patient Primary Language : Yoruba Preferred Communication Mode : Verbal Communication Barrier [...] Scale Risk Level : 0-24 Low Risk [place] Fall Interventions : Adequate lighting, Bed in [...] the text rendition version of the form. [employer] Coma Brooke Best Motor Response : Obey commands Brooke Best Verbal Response : Oriented [employer] Eye Opening Response : Spontaneous [place] Coma Score : 15 Yi Hardy Rn - 04/18/2019 6:33 EDT Electronically signed by Karthikeyan Bean Conversion Instrumentation And Control Technician Cerner at 12/16/2022 10:42 AM CDT documented in this encounter Plan of Treatment Upcoming Encounters Date Type Department Care Team (Late st Contact Info) Description 11/03/2025 12:45 PM EST Office Visit [facility] Pulmonology - [address] [place] [address] Ben Barrios MD [address] [facility] [address] [place] [address] documented as of this encounter Visit Diagnoses Not on filedocumented in this encounter Care Teams Swimming Pool Service Technician Relationship Specialty Start Date End Date Amie Pena MD [address] [place] [address] PCP - General Family Medicine 10/31/22 04/08/23 Marvel Grayson MD [address] [place] [address] PCP - General Family Medicine 05/17/23 Marvel Grayson [address] [place] [address] Family Practice 04/09/23 documented as of this encounter
--- OUTSIDE RECORDS SUMMARY | 2025-08-06 11:52 | XMS_ITS | Encounter Summary ---
Author Organization [employer] ([place], [place], [place], [place], [place]) Address [address] [place] [address] Care Team Providers Care Wet Process Assistant Head Miller Name Role Phone Amie Pena MD Primary Care Provider [phone] Marvel Grayson MD Primary Care Provider [phone] Encounter Details Date Type Department Care Team (Late st Contact Info) Description 11/30/2020 Transcribed Document [facility] [place] [facility] [place] [address] ProviderMik MD [address] [place] [address] Social History Tobacco Use Types Packs/Day [...] Mik ProviderMD - 11/30/2020 4:11 PM CDT [place] Suicide Severity Rating Scale (C-SSRS) Entered On: 11/30/2020 16:17 EDT Performed On: 11/30/2020 16:17 EDT by Erinn Powell RN [place] Suicide Severity Rating Scale (C-SSRS) CSSRS Past [...] Office Visit [facility] Pulmonology - [address] [place] [address] Ben Barrios MD [address] [place] [address] documented as of this encounter Visit Diagnoses Not on filedocumented in this encounter Care Teams Wet Process Assistant Head Miller Relationship Specialty Start Date End Date Amie Pena MD [address] [place] [address] PCP - General Family Medicine 10/31/22 04/08/23 Marvel Grayson MD [address] [place] [address] PCP - General Family Medicine 05/17/23 Marvel Grayson [address] [place] [address] Family Practice 04/09/23 documented as of this encounter
--- OUTSIDE RECORDS SUMMARY | 2025-08-06 11:52 | XMS_ITS | Encounter Summary ---
Author Organization [employer] ([place], [place], [place], [place], [place]) Address [address] [place] [address] Care Team Providers Care Collet Driller Name Role Phone Amie Pena MD Primary Care Provider [phone] Marvel Grayson MD Primary Care Provider [phone] Encounter Details Date Type Department Care Team (Late st Contact Info) Description 04/18/2019 Transcribed Document [facility] [place] [address] [place] [address] ProviderMik MD [address] [place] [address] Social History Tobacco Use Types Packs/Day [...] MD-ROCIO Finalized Date/Time: 04/18/19 10:33:55 Pt. Name: SHABAZZPRATIK D.O.B./Sex: 1970 Female Med Rec #: [id number] Physician: VU HAYS MD-ORT Financial #: [id number] Pt. Type: I Room/Bed: [facility] Admit/Disch: 04/18/19 04:50:00 - Institution: [facility] OR PACU Case Times Entry 1 In PACU I 04/18/19 09:20:00 Ready for PACU 04/18/19 09:50:00 Discharge Discharge from PACU 04/18/19 10:30:00 I Last Modified By: Tati Galvez Rn 04/18/19 10:33:37 [facility] PACU Case Times Audit 04/18/19 10:33:37 Manager Lan: HALLEY Modifier: CARRIEC <+> 1 Discharge from PACU I [facility] PACU Acuity Entry 1 Start Time 04/18/19 09:50:00 Stop Time 04/18/19 10:30:00 Acuity Level [facility] PACU Acuity I Last Modified By: Tati Galvez Rn 04/18/19 10:33:54 [facility] PACU Acuity Audit 04/18/19 10:33:54 Manager Lan: CARRIEC Modifier: CARRIEC 1 <+> Start Time 1 <+> Stop Time 1 <*> Acuity Level [facility] PACU Acuity I 2 <-> Start Time 04/18/19 09:50:00 2 <-> Stop Time 04/18/19 10:30:00 2 <-> Acuity Level [facility] PACU Acuity I 04/18/19 10:33:49 Manager Lan: CARRIEC Modifier: CARRIEC <+> 2 Start Time <+> 2 Stop Time <+> 2 Acuity Level Finalized By: Tati Galvez Rn Document Signatures Signed By: Tati Galvez Rn 04/18/19 10:33 Electronically signed by [facility] Conversion Interior Painter Cerner at 12/16/2022 10:51 AM CDT documented in this encounter Plan of Treatment Upcoming Encounters Date Type Department Care Team (Late st Contact Info) Description 11/03/2025 12:45 PM EST Office Visit [facility] Pulmonology - [address] [place] [phone] Ben Barrios MD [address] [place] [address] documented as of this encounter Visit Diagnoses Not on filedocumented in this encounter Care Teams Collet Driller Relationship Specialty Start Date End Date Amie Pena MD [address] [place] [address] [place] [address] PCP - General Family Medicine 10/31/22 04/08/23 Marvel Grayson MD [address] [place] [address] [place] [address] PCP - General Family Medicine 05/17/23 Marvel Grayson [address] [place] [address] Family Practice 04/09/23 documented as of this encounter
--- OUTSIDE RECORDS SUMMARY | 2025-08-06 11:52 | XMS_ITS | Encounter Summary ---
Author Organization [employer] ([place], [place], [place], [place], [place]) Address [address] [place] [address] Care Team Providers Care Cad Programmer Name Role Phone Amie Pena MD Primary Care Provider [phone] Marvel Grayson MD Primary Care Provider [phone] Encounter Details Date Type Department Care Team (Late st Contact Info) Description 11/30/2020 Transcribed Document [facility] [place] Family [place] [address] ProviderMik MD [address] [place] [address] Social History Tobacco Use Types Packs/Day [...] Communication Barrier : None Primary Language : Faroese Any Spiritual/Cultural Needs or Requests : No [...] Visit [facility] Pulmonology - [address] [place] [address] Ben Barrios MD [address] [place] [address] documented as of this encounter Visit Diagnoses Not on filedocumented in this encounter Care Teams Cad Programmer Relationship Specialty Start Date End Date Amie Pena MD [address] [place] [address] PCP - General Family Medicine 10/31/22 04/08/23 Marvel Grayson MD [address] [place] [address] PCP - General Family Medicine 05/17/23 Marvel Grayson [address] [place] [address] Family Practice 04/09/23 documented as of this encounter
--- OUTSIDE RECORDS SUMMARY | 2025-08-06 11:52 | XMS_ITS | Encounter Summary ---
Author Organization [employer] ([place], [place], [place], [place], [place]) Address [address] [place] [address] Care Team Providers Care Reconciliation Analyst Name Role Phone Amie Pena MD Primary Care Provider [phone] Marvel Grayson MD Primary Care Provider [phone] Encounter Details Date Type Department Care Team (Late st Contact Info) Description 04/14/2019 Transcribed Document [facility] [place] Family Medicine [address] [place] [address] ProviderMik MD [address] [place] [address] Social History Tobacco Use Types Packs/Day [...] : 5 - Minor Tracking Group : [facility] [place] GURDEEP HIGGINS RN - 04/14/2019 20:14 EDT [...] 04/14/2019 20:20:52 EDT) Problems(Active) Arthritis (SNOMED CT :3980897 ) Name of Problem: Arthritis ; Recorder: LASHANDA WEBER RN; Confirmation: Confirmed ; Classification: Patient Stated ; Code: [id number] ; Contributor System: Biodel ; Last Updated: 02/13/2014 15:57 EDT ; Life Cycle Date: 02/13/2014 ; Life Cycle Status: Active ; Vocabulary: SNOMED CT Asthma (SNOMED CT :[id number] ) Name of Problem: Asthma ; Recorder: PANCHO SAEED RN; Confirmation: Confirmed ; Classification: Medical ; Code: [id number] ; Contributor System: PowerChart ; Last Updated: 02/12/2014 19:24 EDT ; Life Cycle Date: 11/28/2013 ; Life Cycle Status: Active ; Vocabulary: SNOMED CT Back pain (SNOMED CT :927510224 ) Name of Problem: Back pain ; Recorder: DENNISE ALVAREZ RN; Confirmation: Confirmed ; Classification: Medical ; Code: [id number] ; Contributor System: PowerChart ; Last Updated: 07/13/2014 14:28 EST ; Life Cycle Date: 07/13/2014 ; Life Cycle Status: Active ; Vocabulary: SNOMED CT COPD (chronic obstructive pulmonary disease) (SNOMED CT :57103478 ) Name of Problem: COPD (chronic obstructive pulmonary disease) ; Recorder: ALLA ZAPATA RN; Confirmation: Confirmed ; Classification: Medical ; Code: [id number] ; Contributor System: PowerChart ; Last Updated: 04/11/2019 13:15 EDT ; Life Cycle Date: 04/11/2019 ; Life Cycle Status: Active ; Vocabulary: SNOMED CT Fibromyalgia (SNOMED CT :[id number] ) Name of Problem: Fibromyalgia ; Recorder: PANCHO SAEED RN; Confirmation: Confirmed ; Classification: Medical ; Code: [id number] ; Contributor System: PowerChart ; Last Updated: 02/12/2014 19:24 EDT ; Life Cycle Date: 11/28/2013 ; Life Cycle Status: Active ; Vocabulary: SNOMED CT H/O: hysterectomy (SNOMED CT :315235013 ) Name of Problem: H/O: hysterectomy ; Recorder: HOWARD HU RN; Confirmation: Confirmed ; Classification: Medical ; Code: [id number] ; Contributor System: PowerChart ; Last Updated: 12/29/2016 21:54 EDT ; Life Cycle Date: 12/29/2016 ; Life Cycle Status: Active ; Vocabulary: SNOMED CT heart burn (SNOMED CT :39196975 ) Name of Problem: heart burn ; Recorder: MARIAN YAO, RICKEY; Confirmation: Confirmed ; Classification: Medical ; Code: 12381102 ; Contributor System: Loccit (ML4D)Chart ; Last Updated: 01/20/2019 18:21 EDT ; Life Cycle Date: 03/29/2015 ; Life Cycle Status: Active ; Vocabulary: SNOMED CT PTSD (post-traumatic stress disorder) (SNOMED CT :83674489 ) Name of Problem: PTSD (post-traumatic stress disorder) ; Recorder: MARIAN YAO RN; Confirmation: Confirmed ; Classification: Medical ; Code: 81944173 ; Contributor System: Biodel ; Last Updated: 03/29/2015 21:19 EDT ; Life Cycle Date: 03/29/2015 ; Life Cycle Status: Active ; Vocabulary: SNOMED CT Sciatica (SNOMED CT :93611343 ) Name of Problem: Sciatica ; Recorder: TRISH MCMAHON RN; Confirmation: Confirmed ; Classification: Medical ; Code: 04345193 ; Contributor System: Loccit (ML4D)Chart ; Last Updated: 05/24/2015 17:38 EDT ; Life Cycle Date: 05/24/2015 ; Life Cycle Status: Active ; Vocabulary: SNOMED CT Diagnoses(Active) Medical problem - minor Date: 04/14/2019 ; Diagnosis Type: Reason For Visit ; Confirmation: Complaint of ; Clinical Dx: Medical problem - minor ; Classification: Medical ; Clinical Service: Non-Specified ; Code: PNED ; Probability: 0 ; Diagnosis Code: [id number] ED Height and Weight Height Source : Stated Height Entry Format : [place] Height, Feet : 5 ft(Converted to: 152 cm, 60 Inch) Height, Inches : 11 Inch(Converted to: 0 ft 11 Inch, 27.94 cm) Clinical Height : 180.34 cm Weight Source, ED : Standing scale Weight Entry Format : [place] Weight, Pounds : 210 lb Clinical Dosing Weight : 95.45 kg Body Surface Area (BSA) : 2.15 m2 Body Mass Index : 29.3 kg/m2 (HI) [place] Body Weight (IBW) : 70.31 kg NIC [...] Office Visit [facility] Pulmonology - [address] [place] [address] Ben Barrios MD [address] [place] [address] documented as of this encounter Visit Diagnoses Not on filedocumented in this encounter Care Teams Reconciliation Analyst Relationship Specialty Start Date End Date Amie Pena MD [address] [place] [address] [place] [address] PCP - General Family Medicine 10/31/22 04/08/23 Marvel Grayson MD [facility] [place] [address] PCP - General Family Medicine 05/17/23 Marvel Grayson [address] [place] [address] Family Practice 04/09/23 documented as of this encounter
--- OUTSIDE RECORDS SUMMARY | 2025-08-06 11:52 | XMS_ITS | Encounter Summary ---
Author Organization [employer] ([place], [place], [place], [place], [place]) Address [address] [place] [address] Care Team Providers Care Managing Partner Digital Content Marketing [place] Name Role Phone Amie Pena MD Primary Care Provider [phone] Marvel Grayson MD Primary Care Provider [phone] Encounter Details Date Type Department Care Team (Late st Contact Info) Description 11/30/2020 Transcribed Document [facility] [place] Family [place] [facility] [place] [address] ProviderMik MD [address] [place] [address] Social History Tobacco Use Types Packs/Day [...] On: 11/30/2020 17:16 EDT by RADHA BROOKS revenue enforcement agent Process Patient Disposition : Discharge Personal Belongings [...] - 11/30/2020 17:16 EDT Electronically signed by [facility] Conversion Pastry Baker Cerner at 12/16/2022 10:51 AM CDT documented in this encounter Plan of Treatment Upcoming Encounters Date Type Department Care Team (Late st Contact Info) Description 11/03/2025 12:45 PM EST Office Visit [facility] Pulmonology - [address] [place] [address] Ben Barrios MD [address] [place] [address] documented as of this encounter Visit Diagnoses Not on filedocumented in this encounter Care Teams Managing Partner Digital Content [employer] [place] Relationship Specialty Start Date End Date Amie Pena MD [address] [place] [address] [place] [address] PCP - General Family Medicine 10/31/22 04/08/23 Marvel Grayson MD [address] [facility] [place] [address] PCP - General Family Medicine 05/17/23 Marvel Grayson [address] [place] [address] Family Practice 04/09/23 documented as of this encounter
--- OUTSIDE RECORDS SUMMARY | 2025-08-06 11:52 | XMS_ITS | Encounter Summary ---
Author Organization [employer] ([place], [place], [place], [place], [place]) Address [address] [place] [address] Care Team Providers Care Model Engine Mechanic Name Role Phone Amie Pena MD Primary Care Provider [phone] Marvel Grayson MD Primary Care Provider [phone] Encounter Details Date Type Department Care Team (Late st Contact Info) Description 04/18/2019 Transcribed Document [facility] [place] [address] [place] [address] ProviderMik MD [address] [place] [address] Social History Tobacco Use Types Packs/Day [...] Mik ProviderMD - 04/18/2019 2:31 PM CDT [address] [address] PRATIK SHABAZZ :1970 Visit Time:04/18/2019 Your Visit Summary Your Care Team Admitting Physician - TASHA ROLDAN MD-INT VU HAYS MD-ORT Attending Physician - VU HAYS MD-ORAgatha Primary Care Physician - ELOY JOHANSEN DR Referring Physician - COLLEEN SHEPARD MD-[facility] Your Diagnosis Other intervertebral disc degeneration, lumbar region, Other intervertebral disc degeneration, lumbar region Discharge Vitals Temperature 36.3 ??C Heart Rate (Monitored) 85 Respiratory Rate 18 Blood Pressure 101/58 What to do next Instructions From Your Care Team Discharge Follow Up Instructions: as per sx. booking sheet/order on chart- office, [place] office, 10-14 days Activity: , minimize bending [...] EDT Comments Appointment has been made Where: [address] [place], [place] [id number]- Medications Take your medications faithfully. Do NOT [...] Barley. Bulgur wheat. Millet. Bran muffins. Popcorn. [place] wafer crackers. ??? Vegetables Sweet potatoes. Spinach. Kale. Artichokes. Cabbage. Broccoli. Green peas. Carrots. Squash. ??? Fruits Berries. Pears. Apples. Oranges. Avocados. Prunes and raisins. Dried figs. ??? Meats and Other Protein Sources [place], kidney, preciado, and soy beans. Split peas. [...] analilia has 11 g of protein. ??? Monona seeds ??? 1 oz has 5.5 g [...] floor. ??? Place frequently used items in ygzf-il-ptacr places ??? Keep electrical cables out of [...] ? Using the bathroom. ? Using household manager federal or toxic chemicals. ? Touching or taking [...] may report side effects to FDA at 8-491-DGU-5091. What other drugs will affect acetaminophen and [...] affect acetaminophen and oxycodone, including prescription and yrsd-vdm-myrttje medicines, vitamins, and herbal products. Not all [...] to ensure that the information provided by [employer]. ('Multum') is accurate, up-to-date, and complete, but no guarantee is made to that effect. Drug information contained herein may be time sensitive. [employer] information has been compiled for use by healthcare practitioners and consumers in the [place] and therefore [employer] does not warrant that uses outside of the [place] are appropriate, unless specifically indicated otherwise. [employer] drug information does not endorse drugs, diagnose patients or recommend therapy. [employer] drug information is an informational resource designed [...] effective or appropriate for any given patient. [employer] does not assume any responsibility for any aspect of healthcare administered with the aid of information StreetFire provides. The information contained herein is not intended to cover all possible uses, directions, precautions, warnings, drug interactions, allergic reactions, or adverse effects. If you have questions about the drugs you are taking, check with your doctor, nurse or pharmacist. Copyright 7249-5240 [employer]. Version: 18.02. Revision Date: 07/31/2018. acetaminophen and [...] may report side effects to FDA at 8-214-XZW-3242. What other drugs will affect acetaminophen and [...] affect acetaminophen and oxycodone, including prescription and snlz-yur-azjkrzr medicines, vitamins, and herbal products. Not all [...] to ensure that the information provided by [employer]. ('Multum') is accurate, up-to-date, and complete, but no guarantee is made to that effect. Drug information contained herein may be time sensitive. [employer] information has been compiled for use by healthcare practitioners and consumers in the [place] and therefore [employer] does not warrant that uses outside of the [place] are appropriate, unless specifically indicated otherwise. [employer] drug information does not endorse drugs, diagnose patients or recommend therapy. [employer] drug information is an informational resource designed [...] effective or appropriate for any given patient. [employer] does not assume any responsibility for any aspect of healthcare administered with the aid of information StreetFire provides. The information contained herein is not intended to cover all possible uses, directions, precautions, warnings, drug interactions, allergic reactions, or adverse effects. If you have questions about the drugs you are taking, check with your doctor, nurse or pharmacist. Copyright 4053-3300 [employer]. Version: 18.02. Revision Date: 07/31/2018. gabapentin ([place] [...] are a day sleeper or work a night auditor. Some people have thoughts about suicide while [...] may report side effects to FDA at 4-238-LRE-0463. What other drugs will affect gabapentin? Taking gabapentin with other drugs that make you sleepy can worsen this effect. Ask your doctor before taking a sleeping pill, narcotic medication, muscle relaxer, or medicine for anxiety, depression, or seizures. Other drugs may interact with gabapentin, including prescription and nlbi-wra-decnylf medicines, vitamins, and herbal products. Tell your [...] to ensure that the information provided by [employer]. ('Multum') is accurate, up-to-date, and complete, but no guarantee is made to that effect. Drug information contained herein may be time sensitive. [employer] information has been compiled for use by healthcare practitioners and consumers in the [place] and therefore [employer]Fire does not warrant that uses outside of the [place] are appropriate, unless specifically indicated otherwise. [employer] drug information does not endorse drugs, diagnose patients or recommend therapy. [employer] drug information is an informational resource designed [...] effective or appropriate for any given patient. [employer] does not assume any responsibility for any aspect of healthcare administered with the aid of information StreetFire provides. The information contained herein is not intended to cover all possible uses, directions, precautions, warnings, drug interactions, allergic reactions, or adverse effects. If you have questions about the drugs you are taking, check with your doctor, nurse or pharmacist. Copyright 1087-1809 [employer]. Version: 14.01. Revision Date: 06/12/2017. Emergency Awareness [...] Assistance with quitting is available by contacting 2-391-EJYC-NOW. This is a free resource providing counseling, [...] range between ( 1.0 and 7.0 ) [place] #: 0.78 K/uL -- Normal range between ( 0.24 and 0.82 ) [place] #: 0.46 K/uL -- Normal range between ( 0.04 and 0.54 ) [place] %: 7.8 % -- Normal range between [...] Urine Bilirubin Dipstick: Negative mg/dL Urine Specific [place]: 1.019 -- Normal range between ( 1.005 and 1.030 ) Urine Type.: [facility] General [facility] 04/11/19 13:15:00 Creatinine Level: 0.64 [...] was given the opportunity to ask questions. Patient/Towel Rolling Machine Operator Name: Patient/Towel Rolling Machine Operator Signature: Relationship to Patient: Clinician/Hospital Towel Rolling Machine Operator Signature: Date: documented in this encounter Plan of Treatment Upcoming Encounters Date Type Department Care Team (Late st Contact Info) Description 11/03/2025 12:45 PM EST Office Visit [facility] Pulmonology - [address] [place] [address] Ben Barrios MD [address] [place], [place] [id number] documented as of this encounter Visit Diagnoses Not on filedocumented in this encounter Care Teams Model Engine Mechanic Relationship Specialty Start Date End Date Amie Pena MD [address] [place] [address] PCP - General Family Medicine 10/31/22 04/08/23 Marvel Grayson MD [address] [place] [address] PCP - General Family Medicine 05/17/23 Marvel Grayson [address] [place] [address] Family Practice 04/09/23 documented as of this encounter
--- OUTSIDE RECORDS SUMMARY | 2025-08-06 11:52 | XMS_ITS | Encounter Summary ---
Author Organization [employer] ([place], [place], [place], [place], [place]) Address [address] [place] [address] Care Team Providers Care Compressor Operator Name Role Phone Amie Pena MD Primary Care Provider [phone] Marvel Grayson MD Primary Care Provider [phone] Encounter Details Date Type Department Care Team (Late st Contact Info) Description 04/18/2019 Transcribed Document [facility] [place] [address] [place] [address] ProviderMik MD [address] [place] [address] Social History Tobacco Use Types Packs/Day [...] Cues : Verbalizes understanding Activities to [place] With Smoking Urges : Verbalizes understanding Basic [...] Office Visit [facility] Pulmonology - [address] [place] [address] Ben Barrios MD [address] [place] [address] documented as of this encounter Visit Diagnoses Not on filedocumented in this encounter Care Teams Compressor Operator Relationship Specialty Start Date End Date Amie Pena MD [facility] [place] [address] PCP - General Family Medicine 10/31/22 04/08/23 Marvel Grayson MD [address] [place] [address] PCP - General Family Medicine 05/17/23 Marvel Gr[place] [address] Family Practice 04/09/23 documented as of this encounter
--- OUTSIDE RECORDS SUMMARY | 2025-08-06 11:52 | XMS_ITS | Encounter Summary ---
Author Organization [employer] ([place], [place], [place], [place], [place]) Address [address] [place] [address] Care Team Providers Care Flue Tile Press Operator Name Role Phone Amie Pena MD Primary Care Provider [phone] Marvel Grayson MD Primary Care Provider [phone] Encounter Details Date Type Department Care Team (Late st Contact Info) Description 04/18/2019 Transcribed Document [facility] [place] Family Medicine [address] [place] [address] ProviderMik MD [address] [place] [address] Social History Tobacco Use Types Packs/Day [...] ROM : WFL Left UE Strength : [facility] CECILIO MUÑOZ, PT - 04/18/2019 12:10 EDT Lower Extremity RLE Active ROM : WFL Right LE Strength : [facility] LLE Active ROM : WFL Left LE [...] Steps with a Railing : A little [facility] Basic Mobility Raw Score : 21 [facility] Basic Mobility Standardized Score : 50.25 [facility] Basic Mobility CMS 0-100% Score : 28.97 [...] CECILIO MUÑOZ PT - 04/18/2019 12:10 EDT [facility] Topics Physical Therapy Education Grid Balance [...] 04/18/2019 12:10 EDT Electronically signed by [facility] Conversion Informatics Consultant Cerner at 12/16/2022 10:47 AM CDT documented in this encounter Plan of Treatment Upcoming Encounters Date Type Department Care Team (Late st Contact Info) Description 11/03/2025 12:45 PM EST Office Visit [facility] Pulmonology - [address] [place] [address] Ben Barrios MD [address] [place] [address] documented as of this encounter Visit Diagnoses Not on filedocumented in this encounter Care Teams Flue Tile Press Operator Relationship Specialty Start Date End Date Amie Pena MD [address] [place] [address] PCP - General Family Medicine 10/31/22 04/08/23 Marvel Grayson MD [facility] [place] [address] PCP - General Family Medicine 05/17/23 Marvel Grayson [address] [place] [address] Family Practice 04/09/23 documented as of this encounter
--- OUTSIDE RECORDS SUMMARY | 2025-08-06 11:52 | XMS_ITS | Encounter Summary ---
Author Organization [employer] ([place], [place], [place], [place], [place]) Address [address] [place] [address] Care Team Providers Care Supervisor Car And Yard Name Role Phone Amie Pena MD Primary Care Provider [phone] Marvel Grayson MD Primary Care Provider [phone] Encounter Details Date Type Department Care Team (Late st Contact Info) Description 07/05/2019 Transcribed Document [facility] [place] [address] [place] [address] ProviderMik MD [address] [place] [address] Social History Tobacco Use Types Packs/Day [...] Office Visit [facility] Pulmonology - [address] [place] [address] Ben Barrios MD [address] [place] [address] documented as of this encounter Visit Diagnoses Not on filedocumented in this encounter Care Teams Supervisor Car And Yard Relationship Specialty Start Date End Date Amie Pena MD [address] [place] [address] PCP - General Family Medicine 10/31/22 04/08/23 Marvel Grayson MD [address] [place] [address] PCP - General Family Medicine 05/17/23 Marvel Grayson [address] [place] [address] Family Practice 04/09/23 documented as of this encounter
--- OUTSIDE RECORDS SUMMARY | 2025-08-06 11:52 | XMS_ITS | Encounter Summary ---
Author Organization [employer] ([place], [place], [place], [place], [place]) Address [address] [place] [address] Care Team Providers Care Silk Screen Repairer Name Role Phone Amie Pena MD Primary Care Provider [phone] Marvel Grayson MD Primary Care Provider [phone] Encounter Details Date Type Department Care Team (Late st Contact Info) Description 04/18/2019 Transcribed Document [facility] [place] Family Medicine [address] [place] [address] ProviderMik MD [address] [place] [address] Social History Tobacco Use Types Packs/Day [...] On: 04/18/2019 18:41 EDT by Nasreen Fishman, supervisor detasseling crew Documentation Patient Disposition, General : Discharge Discharge [...] Nasreen Fishman, RN - 04/18/2019 18:41 EDT Electronically signed by Karthikeyan Bean Conversion Roving Department Supervisor Cerner at 12/16/2022 10:51 AM CDT documented in this encounter Plan of Treatment Upcoming Encounters Date Type Department Care Team (Late st Contact Info) Description 11/03/2025 12:45 PM EST Office Visit [facility] Pulmonology - [address] [place] [phone] Ben Barrios MD [address] [place] [address] documented as of this encounter Visit Diagnoses Not on filedocumented in this encounter Care Teams Silk Screen Repairer Relationship Specialty Start Date End Date Amie Pena MD [address] [place] [address] PCP - General Family Medicine 10/31/22 04/08/23 Marvel Grayson MD [address] [place] [address] PCP - General Family Medicine 05/17/23 Marvel Grayson [address] [place] [address] Family Practice 04/09/23 documented as of this encounter
--- OUTSIDE RECORDS SUMMARY | 2025-08-06 11:53 | XMS_ITS | Encounter Summary ---
Author Organization [employer] ([place], [place], [place], [place], [place]) Address [address] [place] [address] Care Team Providers Care City Superintendent Of Schools Name Role Phone Amie Pena MD Primary Care Provider [phone] Marvel Grayson MD Primary Care Provider [phone] Encounter Details Date Type Department Care Team (Late st Contact Info) Description 04/14/2019 Transcribed Document [facility] [place] Medicine [facility] [place] [address] ProviderMik MD [address] [place] [address] Social History Tobacco Use Types Packs/Day [...] Thorne MD - 04/14/2019 10:21 PM CDT [facility] Sebastián [address] [place] [address] PRATIK SHABAZZ :1970 Visit Time:04/14/2019 [...] sitting or lying down. Medicines ??? Take hxfj-ido-aqwccjp and prescription medicines only as told by [...] 08/14/2002 Document Revised: 09/25/2017 Document Reviewed: 09/25/2017 [employer] Interactive Patient Education ?? 2019 [employer] [place]. Emergency Awareness and Preventative Care STROKE is [...] Assistance with quitting is available by contacting 2-695-UHAUNeoEdge NetworksNOW. This is a free resource providing counseling, [...] was given the opportunity to ask questions. Patient/Lehr Tender Name: Patient/Lehr Tender Signature: Relationship to Patient: Clinician/Hospital Lehr Tender Signature: Please Provide a Telephone Number Where You Can Be Reached: Is it Permissible To Leave a Message? Date: documented in this encounter Plan of Treatment Upcoming Encounters Date Type Department Care Team (Late st Contact Info) Description 11/03/2025 12:45 PM EST Office Visit [facility] Pulmonology - [address] [place] [phone] Ben Barrios MD [address] [place] [address] documented as of this encounter Visit Diagnoses Not on filedocumented in this encounter Care Teams City Superintendent Of Schools Relationship Specialty Start Date End Date Amie Pena MD [address] [address] [address] PCP - General Family Medicine 10/31/22 04/08/23 Marvel Grayson MD [address] [place] [address] PCP - General Family Medicine 05/17/23 Marvel Grayson [facility] [place] [address] Family Practice 04/09/23 documented as of this encounter
--- OUTSIDE RECORDS SUMMARY | 2025-08-06 11:53 | XMS_ITS | Encounter Summary ---
Author Organization [employer] ([place], [place], [place], [place], [place]) Address [address] [place] [address] Care Team Providers Care Amusement Ride Inspector Name Role Phone Marbella Pena MD Primary Care Provider [phone] Marvel Grayson MD Primary Care Provider [phone] Encounter Details Date Type Department Care Team (Late st Contact Info) Description 11/30/2020 Transcribed Document [facility] [place] [facility] [place] [address] ProviderMik MD [address] [place] [address] Social History Tobacco Use Types Packs/Day [...] PM CDT SJKallie Lowery [address] [place] [address] PRATIK SHABAZZ :1970 Visit Time:11/30/2020 [...] When Within 2 to 3 days Where: [facility] [place] [address]- Business (1) Allergies Levaquin Cymbalta (suicidal) Haldol (Hives) Ultram (Hives) Vraylar (Suicidal thoughts) codeine (Respiratory depression) doxycycline (Vomiting) penicillin (Headache) Immunizations This Visit No Immunizations Found Medications What How Much When Instructions Next Dose acetaminophen-hydrocodone (Lortab 5/ 325 oral tablet) Oral Every 6 Hours acetaminophen-hydrocodone ([place] 7.5 mg-325 mg oral tablet) 1 Tablet(s) Oral Every 4 Hours as needed for as needed for pain Duration: 3 Day(s) Pickup at [facility]/pharmacy #[id number] albuterol (albuterol 2.5 mg/ 3 mL (0.083%) inhalation solution) albuterol-ipratropium (DuoNeb 0.5 mg-2.5 mg/ 3 mL inhalation solution) 3 Milliliter(s) Nebulized Inhalation Every 4 Hours budesonide-formoterol (Symbicort 80 mcg-4.5 mcg/ inh inhalation aerosol) Inhalation Two Times A Day gabapentin (gabapentin 300 mg oral capsule) 1 Capsule(s) Two Times A Day ibuprofen loratadine Every Day tiZANidine Oral Pharmacy Information [facility]/pharmacy #[id number]: [address], [place] [id number] [phone] The home medications listed are only as [...] Managing pain, stiffness, and swelling ??? Take tdzq-grs-twjpojb and prescription medicines only as told by [...] day. ??? Do not sit, drive, or sock lining stitcher one place for more than 30 minutes [...] less stress on your back. ??? Take aijy-mlu-winmmqs and prescription medicines and apply heat or ice as directed by your health care provider. This information is not intended to replace advice given to you by your health care provider. Make sure you discuss any questions you have with your health care provider. Document Revised: 12/09/2019 Document Reviewed: 04/03/2018 [employer] Patient Education ?? 2020 [employer] Emergency Awareness and Preventative Care STROKE [...] Assistance with quitting is available by contacting 2-452-NGAYNOW. This is a free resource providing counseling, support, and referral. Or you may contact your personal physician. [employer] Suicide Prevention Lifeline: The National Suicide [...] was given the opportunity to ask questions. Patient/Oracle Erp Developer Name: Patient/Oracle Erp Developer Signature: Relationship to Patient: Clinician/Hospital Oracle Erp Developer Signature: Please Provide a Telephone Number Where You Can Be Reached: Is it Permissible To Leave a Message? Date: documented in this encounter Plan of Treatment Upcoming Encounters Date Type Department Care Team (Late st Contact Info) Description 11/03/2025 12:45 PM EST Office Visit [facility] Pulmonology - [address] [place] [address] Ben Barrios MD [address] [place], [place] [phone] documented as of this encounter Visit Diagnoses Not on filedocumented in this encounter Care Teams Amusement Ride Inspector Relationship Specialty Start Date End Date Marbella Pena MD [address] [place] [address] PCP - General Family Medicine 10/31/22 04/08/23 Marvel Grayson MD [address] [place] [address] PCP - General Family Medicine 05/17/23 Marvel Grayson [address] [place] [address] Family Practice 04/09/23 documented as of this encounter
--- OUTSIDE RECORDS SUMMARY | 2025-08-06 11:53 | XMS_ITS | Encounter Summary ---
Author Organization [employer] ([place], [place], [place], [place], [place]) Address [address] [place] [address] Care Team Providers Care Dynamometer Tester Name Role Phone Marbella Pena MD Primary Care Provider [phone] Marvel Grayson MD Primary Care Provider [phone] Encounter Details Date Type Department Care Team (Late st Contact Info) Description 11/30/2020 Transcribed Document [facility] [place] Family Medicine [address] [place] [address] ProviderMik MD [address] [place] [address] Social History Tobacco Use Types Packs/Day [...] Years. Removal of ovarian cyst (SNOMED CT 1464782380). I&D to left finger. Hysterectomy (SNOMED CT [id number]).. Family history: No family history items have [...] EDT Height Source Stated Height Entry Format [place] Height/Length, SIERRA LEONEAN (ft) 5 ft Height/Length SIERRA LEONEAN 11 Inch CLINICALHEIGHT 180.34 cm [place] Body Weight 70.31 kg Weight Source, ED Critical estimated dosing weight Weight Entry Format [place] Weight [place]ine[place] lb 220 lb CLINICALWEIGHT 100 kg Body [...] fracture, reviewed by Dr Davidson. Notes: ERIC ([place] All Schedule Prescription Electronic Reporting) query complete. Treatment plan to include limited course of prescribed OCCS. Risks (including addiction, benefits, and alternatives) presented to patient. #[id number]. Impression and Plan Diagnosis Thoracic back pain - Discharge, Emergency medicine, Medical Plan Condition: Stable. Disposition: Medically cleared, Discharged Admit/Transfer/Discharge: Discharge (Order): Start: 11/30/2020 16:57 EDT, Discharge to: Home. Prescriptions: Launch Meds List (Selected) Prescriptions Prescribed [place] 7.5 mg-325 mg oral tablet: 1 Tab, [...] of instructions. Notes: I certify that the MLP/CHARTER PILOT performed the services as delegated. I agree with the assessment, treatment plan and disposition of the patient as recorded by the MLP.. documented in this encounter Plan of Treatment Upcoming Encounters Date Type Department Care Team (Late st Contact Info) Description 11/03/2025 12:45 PM EST Office Visit [facility] Pulmonology - [address] [place] [address] Ben Barrios MD [address] [place] [address] documented as of this encounter Visit Diagnoses Not on filedocumented in this encounter Care Teams Dynamometer Tester Relationship Specialty Start Date End Date Marbella Pena MD [address] [place] [address] [place] [address] PCP - General Family Medicine 10/31/22 04/08/23 Marvel Grayson MD [address] [place] [address] [place] [address] PCP - General Family Medicine 05/17/23 Marvel Grayson [address] [place] [address] Family Practice 04/09/23 documented as of this encounter
--- OUTSIDE RECORDS SUMMARY | 2025-08-06 11:53 | XMS_ITS | Encounter Summary ---
Author Organization [employer] ([place], [place], [place], [place], [place]) Address [address] [place] [address] Care Team Providers Care Site Specialist Name Role Phone Amie Pena MD Primary Care Provider [phone] Marvel Grayson MD Primary Care Provider [phone] Encounter Details Date Type Department Care Team (Late st Contact Info) Description 11/30/2020 Transcribed Document [facility] [place] Family Medicine [facility] [place] [address] ProviderMik MD [address] [place] [address] Social History Tobacco Use Types Packs/Day [...] Visit [facility] Pulmonology - [address] [place] [address] Ben Barrios MD [address] [place] [address] documented as of this encounter Visit Diagnoses Not on filedocumented in this encounter Care Teams Site Specialist Relationship Specialty Start Date End Date Amie Pena MD [address] [place] [address] PCP - General Family Medicine 10/31/22 04/08/23 Marvel Grayson MD [address] [place] [address] PCP - General Family Medicine 05/17/23 Marvel Grayson [address] [place] [address] Family Practice 04/09/23 documented as of this encounter
--- OUTSIDE RECORDS SUMMARY | 2025-08-06 11:53 | XMS_ITS | Encounter Summary ---
Author Organization [employer] ([place], [place], [place], [place], [place]) Address [address] [place] [address] Care Team Providers Care Disaster Director Name Role Phone Amie Pena MD Primary Care Provider [phone] Marvel Grayson MD Primary Care Provider [phone] Encounter Details Date Type Department Care Team (Late st Contact Info) Description 04/14/2019 Transcribed Document [facility] [place] [address] [place] [address] ProviderMik MD [address] [place] [address] Social History Tobacco Use Types Packs/Day [...] Office Visit [facility] Pulmonology - [address] [place] [address] Ben Barrios MD [address] [place] [address] documented as of this encounter Visit Diagnoses Not on filedocumented in this encounter Care Teams Disaster Director Relationship Specialty Start Date End Date Amie Pena MD [address] [facility] [place] [address] PCP - General Family Medicine 10/31/22 04/08/23 Marvel Grayson MD [address] [place] [address] PCP - General Family Medicine 05/17/23 Marvel Grayson [address] [place] [address] Family Practice 04/09/23 documented as of this encounter
--- OUTSIDE RECORDS SUMMARY | 2025-08-06 11:53 | XMS_ITS | Encounter Summary ---
Author Organization [employer] ([place], [place], [place], [place], [place]) Address [address] [place] [address] Care Team Providers Care Industrial Production Manager Name Role Phone Amie Pena MD Primary Care Provider [phone] Marvel Grayson MD Primary Care Provider [phone] Encounter Details Date Type Department Care Team (Late st Contact Info) Description 09/11/2020 Transcribed Document [facility] [place] Family Medicine [address] [place] [address] ProviderMik MD [address] [place] [address] Social History Tobacco Use Types Packs/Day Years Used Date Smoking Tobacco: Never Assessed Comments Unknown Sex and Gender Information Value Date Recorded Sex Assigned at Not on file Legal Sex Female 6:09 PM CDT Gender Identity Not on file Sexual Orientation Not on file documented as of this encounter Miscellaneous Notes * [employer]ner Conversion Note - Historical ProviderMD - 09/11/2020 5:33 PM NURSE ADMINISTRATOR documented in this encounter Plan of Treatment Upcoming Encounters Date Type Department Care Team (Late st Contact Info) Description 11/03/2025 12:45 PM EST Office Visit [facility] Pulmonology - [address] [place] [address] Ben Barrios MD [address] [place] [address] documented as of this encounter Visit Diagnoses Not on filedocumented in this encounter Care Teams Industrial Production Manager Relationship Specialty Start Date End Date Amie Pena MD [address] [place] [address] PCP - General Family Medicine 10/31/22 04/08/23 Marvel Grayson MD [address] [facility] [place] [address] PCP - General Family Medicine 05/17/23 Marvel Grayson [address] [place] [address] Family Practice 04/09/23 documented as of this encounter
--- OUTSIDE RECORDS SUMMARY | 2025-08-06 11:53 | XMS_ITS | Encounter Summary ---
Author Organization [employer] ([place], [place], [place], [place], [place]) Address [address] [place] [address] Care Team Providers Care Green End Worker Name Role Phone Amie Pena MD Primary Care Provider Marvel Grayson MD Primary Care Provider [phone] Encounter Details Date Type Department Care Team (Late st Contact Info) Description 11/30/2020 Transcribed Document [facility] [place] [address] [place] [address] ProviderMik MD [address] [place] [address] Social History Tobacco Use Types Packs/Day [...] further action required Electronically signed by Geneva [facility] Conversion Aircraft Maintenance Director Cerner at 12/16/2022 10:49 AM CDT documented in this encounter Plan of Treatment Upcoming Encounters Date Type Department Care Team (Late st Contact Info) Description 11/03/2025 12:45 PM EST Office Visit [facility] Pulmonology - [address] [place] [address] Ben Barrios MD [address] [place], [place] [address] documented as of this encounter Visit Diagnoses Not on filedocumented in this encounter Care Teams Green End Worker Relationship Specialty Start Date End Date Amie Pena MD [address] [place] [address] [place] [address] PCP - General Family Medicine 10/31/22 04/08/23 Marvel Grayson MD [address] [place] [address] [place] [address] PCP - General Family Medicine 05/17/23 Marvel Grayson [address] [place] [address] Family Practice 04/09/23 documented as of this encounter
--- OUTSIDE RECORDS SUMMARY | 2025-08-06 11:53 | XMS_ITS | Encounter Summary ---
Author Organization [employer] ([place], [place], [place], [place], [place]) Address [address] [place] [address] Care Team Providers Care Garment Folder Name Role Phone Marbella Pena MD Primary Care Provider [phone] Marvel Grayson MD Primary Care Provider [phone] Encounter Details Date Type Department Care Team (Late st Contact Info) Description 09/11/2020 Transcribed Document [facility] [place] Family Medicine [facility] [place] [address] ProviderMik MD [address] [place] [address] Social History Tobacco Use Types Packs/Day [...] Mik Thorne MD - 09/11/2020 5:33 PM TRIMMER HAND Kallie [place] Monroe[place]y [address] [place] [address] PRATKI SHABAZZ :1970 Visit Time:09/11/2020 Your Visit Summary [...] When Within 3 to 5 days Where: [address] [place] [address] [address] [place] [address] Business (1) Follow Up with MARBELLA PENA When Within 2 to 3 days Where: [address] [place] [address]- Business (1) Follow Up with [...] as needed for for pain Pickup at [facility]/pharmacy #[id number] acetaminophen-hydrocodone (Lortab 5/ 325 oral tablet) Oral Every 6 Hours albuterol (albuterol 2.5 mg/ 3 mL (0.083%) inhalation solution) albuterol-ipratropium (DuoNeb 0.5 mg-2.5 mg/ 3 mL inhalation solution) 3 Milliliter(s) Nebulized Inhalation Every 4 Hours gabapentin (gabapentin 300 mg oral capsule) 1 Capsule(s) Two Times A Day Pharmacy Information [facility]/pharmacy #[id number]: [address] [place], [place] [id number] [phone] The home medications listed are only as [...] as you can. Do not try to brick picker a heavy object that is far [...] on shelves at waist level, and put tin tie machine operator automatic objects on lower or higher shelves. ??? [...] 09/27/2005 Document Revised: 10/05/2018 Document Reviewed: 10/05/2018 [employer] Patient Education ?? 2020 [employer] Chronic Back Pain When back pain [...] them backward. ??? Do not sit or highway inspector one place for long periods of time. [...] soaking in a warm tub. ??? Take wcao-oum-ydtjprj and prescription medicines only as told by [...] Reviewed: 02/27/2018 Elsevier Patient Education ?? 2020 [employer] Chronic Back Pain When back pain [...] them backward. ??? Do not sit or highway inspector one place for long periods of time. [...] This can help relieve pain. ??? Take ksua-wai-aphvvcs and prescription medicines only as told by [...] 02/05/2009 Document Revised: 12/11/2019 Document Reviewed: 04/04/2018 [employer] Patient Education ?? 2020 [employer] Emergency Awareness and Preventative Care STROKE [...] Assistance with quitting is available by contacting 3-681-GLUU-NOW. This is a free resource providing counseling, support, and referral. Or you may contact your personal physician. [place] Suicide Prevention Lifeline: The National Suicide Prevention [...] was given the opportunity to ask questions. Patient/Paper Wrapping Machine Operator Name: Patient/Paper Wrapping Machine Operator Signature: Relationship to Patient: Clinician/Hospital Paper Wrapping Machine Operator Signature: Please Provide a Telephone Number Where You Can Be Reached: Is it Permissible To Leave a Message? Date: Electronically signed by Geneva, [facility] Conversion Fund Development Manager Cerner at 12/16/2022 10:37 AM CDT documented in this encounter Plan of Treatment Upcoming Encounters Date Type Department Care Team (Late st Contact Info) Description 11/03/2025 12:45 PM EST Office Visit [facility] Pulmonology - [address] [place] [address] Ben Barrios MD [address] [place] [address] documented as of this encounter Visit Diagnoses Not on filedocumented in this encounter Care Teams Garment Folder Relationship Specialty Start Date End Date Marbella Pena MD [address] [place] [address] [place] [address] PCP - General Family Medicine 10/31/22 04/08/23 Marvel Grayson MD [address] [place] [address] [place] [address] PCP - General Family Medicine 05/17/23 Marvel Grayson [address] [place] [address] Family Practice 04/09/23 documented as of this encounter
--- OUTSIDE RECORDS SUMMARY | 2025-08-06 11:53 | XMS_ITS | Encounter Summary ---
Author Organization [employer] ([place], [place], [place], [place], [place]) Address [address] [place] [address] Care Team Providers Care Sr. Merchandise Planner Name Role Phone Amie Pena MD Primary Care Provider [phone] Marvel Grayson MD Primary Care Provider [phone] Encounter Details Date Type Department Care Team (Late st Contact Info) Description 09/11/2020 Transcribed Document [facility] [place] Family Medicine [facility] [place] [address] ProviderMik MD [address] [place] [address] Social History Tobacco Use Types Packs/Day Years Used Date Smoking Tobacco: Never Assessed Comments Unknown Sex and Gender Information Value Date Recorded Sex Assigned at Not on file Legal Sex Female 6:09 PM CDT Gender Identity Not on file Sexual Orientation Not on file documented as of this encounter Miscellaneous Notes * Cerner Conversion Note - Historical ProviderMD - 09/11/2020 4:31 PM COT ASSEMBLER Broset Violence Assessment Entered On: 09/11/2020 16:57 EST Performed On: 09/11/2020 16:53 EST by Yesika Caicedo RN Broset Violence Assessment Broset Violence Checklist of Symptoms : None Broset Violence Symptoms Subtotal : 0 Broset Violence Symptoms Indicator : Low risk (0) Yesika Caicedo RN - 09/11/2020 16:53 EST Electronically signed by Geneva, [employer]elly Conversion Cloth Doubling Machine Operator Cerner at 12/16/2022 10:42 AM CDT documented in this encounter Plan of Treatment Upcoming Encounters Date Type Department Care Team (Late st Contact Info) Description 11/03/2025 12:45 PM EST Office Visit [facility] Pulmonology - [address] [place] [address] Ben Barrios MD [address] [place] [address] documented as of this encounter Visit Diagnoses Not on filedocumented in this encounter Care Teams Sr. Merchandise Planner Relationship Specialty Start Date End Date Amie Pena MD [address] [place] [address] [place] [address] PCP - General Family Medicine 10/31/22 04/08/23 Marvel Grayson MD [facility] [place] [address] PCP - General Family Medicine 05/17/23 Marvel Grayson [address] [place] [address] Family Practice 04/09/23 documented as of this encounter
--- OUTSIDE RECORDS SUMMARY | 2025-08-06 11:53 | XMS_ITS | Encounter Summary ---
Author Organization [employer] ([place], [place], [place], [place], [place]) Address [address] [place] [address] Care Team Providers Care Baggage Porter Name Role Phone Amie Pena MD Primary Care Provider [phone] Marvel Grayson MD Primary Care Provider [phone] Encounter Details Date Type Department Care Team (Late st Contact Info) Description 03/10/2019 Transcribed Document [facility] [place] Family Medicine [address] [place] [address] ProviderMik MD [address] [place] [address] Social History Tobacco Use Types Packs/Day [...] Mik ProviderMD - 03/10/2019 4:18 PM CDT [address] [address] PRATIK SHABAZZ :1970 Visit Time:03/10/2019 [...] When Within 2 to 3 days Where: [address] [place] [address] [address] [place] [address]- Business (1) Follow Up with FOLLOW UP [...] to contact our Patient Resource Center at [phone] for assistance establishing with a primary care physician. Follow Up with NO PRIM DR JOHANSEN When Within 2 to 3 days Allergies Cymbalta (suicidal) Haldol (Hives) Ultram Vraylar codeine (Respiratory depression) doxycycline penicillin Immunizations This Visit No Immunizations Found Medications What How Much When Instructions Next Dose New acetaminophen-hydrocodone ([place] 5 mg-325 mg oral tablet) 1 Tablet(s) [...] 11/16/2009 Document Revised: 01/25/2017 Document Reviewed: 04/27/2015 [employer] Patient Education ?? 2019 [employer]. Emergency Awareness and Preventative Care STROKE is [...] Assistance with quitting is available by contacting 8-349-NOGH-NOW. This is a free resource providing counseling, [...] was given the opportunity to ask questions. Patient/Ledger Poster Name: Patient/Ledger Poster Signature: Relationship to Patient: Clinician/Hospital Ledger Poster Signature: Please Provide a Telephone Number Where You Can Be Reached: Is it Permissible To Leave a Message? Date: Electronically signed by Karthikeyan Bean Conversion Network Applications Specialist Maverick at 12/16/2022 10:36 AM CDT documented in this encounter Plan of Treatment Upcoming Encounters Date Type Department Care Team (Late st Contact Info) Description 11/03/2025 12:45 PM EST Office Visit [facility] Pulmonology - [address] [place] [address] Ben Barrios MD [address] [place], [place] [address] documented as of this encounter Visit Diagnoses Not on filedocumented in this encounter Care Teams Baggage Porter Relationship Specialty Start Date End Date Amie Pena MD [address] [place], [place] [address] [address] PCP - General Family Medicine 10/31/22 04/08/23 Marvel Grayson MD [address] [place] [address] [place] [address] PCP - General Family Medicine 05/17/23 Marvel Grayson [address] [place] [address] Family Practice 04/09/23 documented as of this encounter
--- OUTSIDE RECORDS SUMMARY | 2025-08-06 11:53 | XMS_ITS | Encounter Summary ---
Author Organization [employer] ([place], [place], [place], [place], [place]) Address [address] [place] [address] Care Team Providers Care Reproducer Name Role Phone Amie Pena MD Primary Care Provider [phone] Marvel Grayson MD Primary Care Provider [phone] Encounter Details Date Type Department Care Team (Late st Contact Info) Description 04/11/2019 Transcribed Document [facility] [place] Family Medicine [address] [place] [address] ProviderMik MD [address] [place] [address] Social History Tobacco Use Types Packs/Day [...] Source : Stated Height Entry Format : [place] Height, Feet : 5 ft(Converted to: 152 cm, 60 Inch) Height, Inches : 11 Inch(Converted to: 0 ft 11 Inch, 27.94 cm) Clinical Height : 180.34 cm Weight Source : Standing scale Weight Entry Format : [place] Clinical Dosing Weight : 93.18 kg Weight, Pounds : 205 lb Body Surface Area (BSA) : 2.13 m2 Body Mass Index : 28.7 kg/m2 (HI) [place] Body Weight : 70 kg ALLA ZAPATA [...] #2 Relationship : - Primary Language : Yoruba Preferred Communication Mode [...] ALLA ZAPATA RN - 04/11/2019 13:19 EDT Electronically signed by Karthikeyan Bean Conversion Ebd Special Education Teacher Cerner at 12/16/2022 10:46 AM CDT documented in this encounter Plan of Treatment Upcoming Encounters Date Type Department Care Team (Late st Contact Info) Description 11/03/2025 12:45 PM EST Office Visit [facility] Pulmonology - [address] [place] [address] Ben Barrios MD [address] [place], [place] [id number] documented as of this encounter Visit Diagnoses Not on filedocumented in this encounter Care Teams Reproducer Relationship Specialty Start Date End Date Amie Pena MD [address] [place] [address] [place] [address] PCP - General Family Medicine 10/31/22 04/08/23 Marvel Grayson MD [address] [place] [address] [place] [address] PCP - General Family Medicine 05/17/23 Marvel Grayson [address] [place] [address] Family Practice 04/09/23 documented as of this encounter
--- OUTSIDE RECORDS SUMMARY | 2025-08-06 11:53 | XMS_ITS | Encounter Summary ---
Author Organization [employer] ([place], [place], [place], [place], [place]) Address [address] [place] [address] Care Team Providers Care Trench Shovel Operator Name Role Phone Amie Pena MD Primary Care Provider [phone] Marvel Grayson MD Primary Care Provider [phone] Encounter Details Date Type Department Care Team (Late st Contact Info) Description 11/30/2020 Transcribed Document [facility] [place] Family Medicine formerly [facility] [place] [address] ProviderMik MD [address] [place] [address] Social History Tobacco Use Types Packs/Day [...] On: 11/30/2020 16:14 EDT by Erinn Powell PSYCHIATRIC AIDE INSTRUCTOR Triage Across the Room Chief Complaint : pt c/o back pain between shoulder blades since late last night, pt states has chronic back pain and is scheduled for pain management December 06 Triage Date/Time : 11/30/2020 16:14 EDT Erinn Powell RN - 11/30/2020 16:14 EDT DCP GENERIC CODE Tracking Acuity : 4 - Non - Urgent Tracking Group : [facility] ED Sebastián Erinn Powell RN - 11/30/2020 [...] 11/30/2020 16:17:28 EDT) Problems(Active) Arthritis (SNOMED CT :0672588 ) Name of Problem: Arthritis ; Recorder: LASHANDA WEBER RN; Confirmation: Confirmed ; Classification: Patient Stated ; Code: [id number] ; Contributor System: PowerChart ; Last Updated: 02/13/2014 15:57 EDT ; Life Cycle Date: 02/13/2014 ; Life Cycle Status: Active ; Vocabulary: SNOMED CT Asthma (SNOMED CT :[id number] ) Name of Problem: Asthma ; Recorder: PANCHO SAEED RN; Confirmation: Confirmed ; Classification: Medical ; Code: [id number] ; Contributor System: PowerChart ; Last Updated: 02/12/2014 19:24 EDT ; Life Cycle Date: 11/28/2013 ; Life Cycle Status: Active ; Vocabulary: SNOMED CT Back pain (SNOMED CT :992619350 ) Name of Problem: Back pain ; Recorder: DENNISE ALVAREZ RN; Confirmation: Confirmed ; Classification: Medical ; Code: [id number] ; Contributor System: PowerChart ; Last Updated: 07/13/2014 14:28 EST ; Life Cycle Date: 07/13/2014 ; Life Cycle Status: Active ; Vocabulary: SNOMED CT COPD (chronic obstructive pulmonary disease) (SNOMED CT :34959769 ) Name of Problem: COPD (chronic obstructive pulmonary disease) ; Recorder: ALLA ZAPATA RN; Confirmation: Confirmed ; Classification: Medical ; Code: 72463925 ; Contributor System: PowerChart ; Last Updated: 04/11/2019 13:15 EDT ; Life Cycle Date: 04/11/2019 ; Life Cycle Status: Active ; Vocabulary: SNOMED CT COPD exacerbation (SNOMED CT :894030113 ) Name of Problem: COPD exacerbation ; Recorder: YURIY CASEY; Confirmation: Confirmed ; Classification: Medical ; Code: 868889122 ; Contributor System: PowerChart ; Last Updated: 07/07/2019 11:33 EST ; Life Cycle Status: Active ; Responsible Provider: YURIY CASEY; Vocabulary: SNOMED CT Fibromyalgia (SNOMED CT :[id number] ) Name of Problem: Fibromyalgia ; Recorder: PANCHO SAEED RN; Confirmation: Confirmed ; Classification: Medical ; Code: [id number] ; Contributor System: PowerChart ; Last Updated: 02/12/2014 19:24 EDT ; Life Cycle Date: 11/28/2013 ; Life Cycle Status: Active ; Vocabulary: SNOMED CT H/O: hysterectomy (SNOMED CT :301783698 ) Name of Problem: H/O: hysterectomy ; Recorder: HOWARD HU RN; Confirmation: Confirmed ; Classification: Medical ; Code: [id number] ; Contributor System: PowerChart ; Last Updated: 12/29/2016 21:54 EDT ; Life Cycle Date: 12/29/2016 ; Life Cycle Status: Active ; Vocabulary: SNOMED CT heart burn (SNOMED CT :59525654 ) Name of Problem: heart burn ; Recorder: MARIAN YAO RN; Confirmation: Confirmed ; Classification: Medical ; Code: 67120503 ; Contributor System: PowerChart ; Last Updated: 01/20/2019 18:21 EDT ; Life Cycle Date: 03/29/2015 ; Life Cycle Status: Active ; Vocabulary: SNOMED CT Irritable bowel syndrome (SNOMED CT :18744553 ) Name of Problem: Irritable bowel syndrome ; Recorder: Yi Hardy Rn; Confirmation: Confirmed ; Classification: Medical ; Code: 95018209 ; Contributor System: PowerChart ; Last Updated: 04/18/2019 6:31 EDT ; Life Cycle Date: 04/18/2019 ; Life Cycle Status: Active ; Vocabulary: SNOMED CT Migraine (SNOMED CT :15011617 ) Name of Problem: Migraine ; Recorder: Yi Hardy Rn; Confirmation: Confirmed ; Classification: Medical ; Code: 73831259 ; Contributor System: PowerChart ; Last Updated: 04/18/2019 6:30 EDT ; Life Cycle Date: 04/18/2019 ; Life Cycle Status: Active ; Vocabulary: SNOMED CT Peripheral neuropathy (SNOMED CT :513312714 ) Name of Problem: Peripheral neuropathy ; Recorder: Yi Hardy Rn; Confirmation: Confirmed ; Classification: Medical ; Code: 395714235 ; Contributor System: TripshareChart ; Last Updated: 04/18/2019 6:32 EDT ; Life Cycle Date: 04/18/2019 ; Life Cycle Status: Active ; Vocabulary: SNOMED CT PTSD (post-traumatic stress disorder) (SNOMED CT :31781591 ) Name of Problem: PTSD (post-traumatic stress disorder) ; Recorder: MARIAN YOA RN; Confirmation: Confirmed ; Classification: Medical ; Code: 59827724 ; Contributor System: TripshareChart ; Last Updated: 03/29/2015 21:19 EDT ; Life Cycle Date: 03/29/2015 ; Life Cycle Status: Active ; Vocabulary: SNOMED CT Sciatica (SNOMED CT :51326833 ) Name of Problem: Sciatica ; Recorder: TRISH MCMAHON RN; Confirmation: Confirmed ; Classification: Medical ; Code: 98013420 ; Contributor System: TripshareChart ; Last Updated: 05/24/2015 17:38 EDT ; Life Cycle Date: 05/24/2015 ; Life Cycle Status: Active ; Vocabulary: SNOMED CT Diagnoses(Active) Back pain Date: 11/30/2020 ; Diagnosis Type: Reason For Visit ; Confirmation: Complaint of ; Clinical Dx: Back pain ; Classification: Medical ; Clinical Service: Emergency medicine ; Code: PNED ; Probability: 0 ; Diagnosis Code: [id number] ED Height and Weight Height Source : Stated Height Entry Format : [place] Height, Feet : 5 ft(Converted to: 152 cm, 60 Inch) Height, Inches : 11 Inch(Converted to: 0 ft 11 Inch, 27.94 cm) Clinical Height : 180.34 cm Weight Source, ED : Critical estimated dosing weight Weight Entry Format : [place] Weight, Pounds : 220 lb Clinical Dosing Weight : 100 kg Body Surface Area (BSA) : 2.2 m2 Body Mass Index : 30.7 kg/m2 (HI) [place] Body Weight (IBW) : 70.31 kg Erinn Powell RN - 11/30/2020 16:14 EDT documented in this encounter Plan of Treatment Upcoming Encounters Date Type Department Care Team (Late st Contact Info) Description 11/03/2025 12:45 PM EST Office Visit [facility] Pulmonology - [address] [place] [address] Ben Barrios MD [address] [place] [address] documented as of this encounter Visit Diagnoses Not on filedocumented in this encounter Care Teams Trench Shovel Operator Relationship Specialty Start Date End Date Amie Pena MD [address] [place] [address] PCP - General Family Medicine 10/31/22 04/08/23 Marvel Grayson MD [address] [place] [address] PCP - General Family Medicine 05/17/23 Marvel Grayson [address] [place] [address] Family Practice 04/09/23 documented as of this encounter
--- OUTSIDE RECORDS SUMMARY | 2025-08-06 11:53 | XMS_ITS | Encounter Summary ---
Author Organization [employer] ([place], [place], [place], [place], [place]) Address [address] [place] [address] Care Team Providers Care Pillowcase Cleaner Name Role Phone Amie Pena MD Primary Care Provider [phone] Marvel Grayson MD Primary Care Provider [phone] Encounter Details Date Type Department Care Team (Late st Contact Info) Description 08/06/2020 Transcribed Document [facility] [place] Family Medicine [facility] [place] [address] ProviderMik MD [address] [place] [address] Social History Tobacco Use Types Packs/Day Years Used Date Smoking Tobacco: Never Assessed Comments Unknown Sex and Gender Information Value Date Recorded Sex Assigned at Not on file Legal Sex Female 6:09 PM CDT Gender Identity Not on file Sexual Orientation Not on file documented as of this encounter Miscellaneous Notes * [employer]ner Conversion Note - Historical ProviderMD - 08/06/2020 1:53 PM CLINICAL PRODUCT MANAGER Broset Violence Assessment Entered On: 08/06/2020 14:05 EST Performed On: 08/06/2020 14:01 EST by RADHA BROOKS RN Broset Violence Assessment Broset Violence Checklist of Symptoms : None Broset Violence Symptoms Subtotal : 0 Broset Violence Symptoms Indicator : Low risk (0) RADHA BROOKS RN - 08/06/2020 14:01 EST Electronically signed by [facility], [facility] Conversion Military Lawyer Cerner at 12/16/2022 10:51 AM CDT documented in this encounter Plan of Treatment Upcoming Encounters Date Type Department Care Team (Late st Contact Info) Description 11/03/2025 12:45 PM EST Office Visit [facility] Pulmonology - [address] [place] [address] Ben Barrios MD [address] [place] [address] documented as of this encounter Visit Diagnoses Not on filedocumented in this encounter Care Teams Pillowcase Cleaner Relationship Specialty Start Date End Date Amie Pena MD [facility] [place] [address] PCP - General Family Medicine 10/31/22 04/08/23 Marvel Grayson MD [facility] [place] [address] PCP - General Family Medicine 05/17/23 Marvel Grayson [address] [place] [address] Family Practice 04/09/23 documented as of this encounter
--- OUTSIDE RECORDS SUMMARY | 2025-08-06 11:53 | XMS_ITS | Encounter Summary ---
Author Organization [employer] ([place], [place], [place], [place], [place]) Address [address] [place] [address] Care Team Providers Care Crystal Syrup Maker Name Role Phone Amie Pena MD Primary Care Provider [phone] Marvel Grayson MD Primary Care Provider [phone] Encounter Details Date Type Department Care Team (Late st Contact Info) Description 03/10/2019 Transcribed Document [facility] [place] Family Medicine [address] [place] [address] ProviderMik MD [address] [place] [address] Social History Tobacco Use Types Packs/Day [...] On: 03/10/2019 12:26 EDT by FARIDA MARSH SUMATRA OPENER Triage Across the Room Triage Date/Time : 03/10/2019 12:26 EDT Chief Complaint : c/o lower back pain , pt with hx of chronic back, has an injection scheduled for , pt slow to ambulate FARIDA MARHS RN - 03/10/2019 12:26 EDT DCP GENERIC CODE Tracking Acuity : 4 - Non - Urgent Tracking Group : [facility] [place] FARIDA MARSH RN - 03/10/2019 [...] doxycycline ; Type: Allergy ; Updated By: ARCHELLE LEA Rn; Reviewed Date: 03/10/2019 12:27 EDT [...] 03/10/2019 12:29:35 EDT) Problems(Active) Arthritis (SNOMED CT :3602964 ) Name of Problem: Arthritis ; Recorder: LASHANDA WEBER RN; Confirmation: Confirmed ; Classification: Patient Stated ; Code: 4419790 ; Contributor System: He[employer]Pay ; Last Updated: 02/13/2014 15:57 EDT ; Life Cycle Date: 02/13/2014 ; Life Cycle Status: Active ; Vocabulary: SNOMED CT Asthma (SNOMED CT :[id number] ) Name of Problem: Asthma ; Recorder: CHRISTOPHE, PANCHO W, RN; Confirmation: Confirmed ; Classification: Medical ; Code: [id number] ; Contributor System: PowerChart ; Last Updated: 02/12/2014 19:24 EDT ; Life Cycle Date: 11/28/2013 ; Life Cycle Status: Active ; Vocabulary: SNOMED CT Back pain (SNOMED CT :710556636 ) Name of Problem: Back pain ; Recorder: DENNISE ALVAREZ RN; Confirmation: Confirmed ; Classification: Medical ; Code: 660013504 ; Contributor System: PowerChart ; Last Updated: 07/13/2014 14:28 EST ; Life Cycle Date: 07/13/2014 ; Life Cycle Status: Active ; Vocabulary: SNOMED CT Fibromyalgia (SNOMED CT :[id number] ) Name of Problem: Fibromyalgia ; Recorder: PANCHO SAEED RN; Confirmation: Confirmed ; Classification: Medical ; Code: [id number] ; Contributor System: PowerChart ; Last Updated: 02/12/2014 19:24 EDT ; Life Cycle Date: 11/28/2013 ; Life Cycle Status: Active ; Vocabulary: SNOMED CT H/O: hysterectomy (SNOMED CT :705295266 ) Name of Problem: H/O: hysterectomy ; Recorder: HOWARD HU RN; Confirmation: Confirmed ; Classification: Medical ; Code: 417516115 ; Contributor System: TrackingPointChart ; Last Updated: 12/29/2016 21:54 EDT ; Life Cycle Date: 12/29/2016 ; Life Cycle Status: Active ; Vocabulary: SNOMED CT heart burn (SNOMED CT :31307549 ) Name of Problem: heart burn ; Recorder: MARIAN YAO RN; Confirmation: Confirmed ; Classification: Medical ; Code: 24110671 ; Contributor System: PowerChart ; Last Updated: 01/20/2019 18:21 EDT ; Life Cycle Date: 03/29/2015 ; Life Cycle Status: Active ; Vocabulary: SNOMED CT PTSD (post-traumatic stress disorder) (SNOMED CT :43740924 ) Name of Problem: PTSD (post-traumatic stress disorder) ; Recorder: MARIAN YAO, RICKEY; Confirmation: Confirmed ; Classification: Medical ; Code: 99850348 ; Contributor System: HealPay ; Last Updated: 03/29/2015 21:19 EDT ; Life Cycle Date: 03/29/2015 ; Life Cycle Status: Active ; Vocabulary: SNOMED CT Sciatica (SNOMED CT :02550936 ) Name of Problem: Sciatica ; Recorder: TRISH MCMAHON RN; Confirmation: Confirmed ; Classification: Medical ; Code: 27980631 ; Contributor System: HealPay ; Last Updated: 05/24/2015 17:38 EDT ; Life Cycle Date: 05/24/2015 ; Life Cycle Status: Active ; Vocabulary: SNOMED CT Diagnoses(Active) Back pain Date: 03/10/2019 ; Diagnosis Type: Reason For Visit ; Confirmation: Complaint of ; Clinical Dx: Back pain ; Classification: Medical ; Clinical Service: Emergency medicine ; Code: PNED ; Probability: 0 ; Diagnosis Code: [id number] ED Height and Weight Height Source : Stated Height Entry Format : [place] Height, Feet : 5 ft(Converted to: 152 cm, 60 Inch) Height, Inches : 11 Inch(Converted to: 0 ft 11 Inch, 27.94 cm) Clinical Height : 180.34 cm Weight Source, ED : Standing scale Weight Entry Format : [place] Weight, Pounds : 200 lb Clinical Dosing Weight : 90.91 kg Body Surface Area (BSA) : 2.11 m2 Body Mass Index : 28 kg/m2 (HI) [place] Body Weight (IBW) : 70.31 kg FARIDA [...] Office Visit [facility] Pulmonology - [address] [place] [address] Ben Barrios MD [address] [place] [address] documented as of this encounter Visit Diagnoses Not on filedocumented in this encounter Care Teams Crystal Syrup Maker Relationship Specialty Start Date End Date Amie Pena MD [address] [place] [address] [place] [address] PCP - General Family Medicine 10/31/22 04/08/23 Marvel Grayson MD [address] [place] [address] [place] [address] PCP - General Family Medicine 05/17/23 Marvel Grayson [address] [place] [address] Family Practice 04/09/23 documented as of this encounter
--- OUTSIDE RECORDS SUMMARY | 2025-08-06 11:53 | XMS_ITS | Encounter Summary ---
Author Organization [employer] ([place], [place], [place], [place], [place]) Address [address] [place] [address] Care Team Providers Care Home Care Provider Name Role Phone Amie Pena MD Primary Care Provider [phone] Marvel Grayson MD Primary Care Provider [phone] Encounter Details Date Type Department Care Team (Late st Contact Info) Description 04/09/2019 Transcribed Document [facility] Family Medicine [facility] [place] [address] ProviderMik MD [address] [place] [address] Social History Tobacco Use Types Packs/Day [...] Insurance 1 Health Plan: [employer] Policy Number: [id number] Authorization Number: Insurance Primary Name : [employer] Policy Number: [id number] Authorization Status-Primary : Admit approved Authorization Number-Primary : [id number] Number of Days Authorized-Primary : 1 Authorized Service Begin Date-Primary : 04/18/2019 EDT Authorized Service End Date-Primary : 04/18/2019 EDT Authorization Comments-Primary : [employer] approved per availity for inpt 1 day -- Jesenia will f/u for clinicals herself Historical Authorization Comments-Primary : No Authorization Comments Found FREDERIC PHAM RN-Utilization Review - 04/09/2019 16:00 EDT Electronically signed by Karthikeyan Bean Conversion Marketing Reporting Analyst Cerner at 12/16/2022 10:42 AM CDT documented in this encounter Plan of Treatment Upcoming Encounters Date Type Department Care Team (Late st Contact Info) Description 11/03/2025 12:45 PM EST Office Visit [facility] Pulmonology - [address] [place] [address] Ben Barrios MD [address] [place] [address] documented as of this encounter Visit Diagnoses Not on filedocumented in this encounter Care Teams Home Care Provider Relationship Specialty Start Date End Date Amie Pena MD [address] [place] [address] [place] [address] PCP - General Family Medicine 10/31/22 04/08/23 Marvel Grayson MD [address] [place] [address] PCP - General Family Medicine 05/17/23 Marvel Grayson [address] [place], [place] [address] Family Practice 04/09/23 documented as of this encounter
--- OUTSIDE RECORDS SUMMARY | 2025-08-06 11:53 | XMS_ITS | Encounter Summary ---
Author Organization [employer] ([place], [place], [place], [place], [place]) Address [address] [place] [address] Care Team Providers Care Condominium Property Manager Name Role Phone Amie Pena MD Primary Care Provider [phone] Marvel Grayson MD Primary Care Provider [phone] Encounter Details Date Type Department Care Team (Late st Contact Info) Description 09/11/2020 Transcribed Document [facility] [place] [facility] [place] [address] ProviderMik MD [address] [place] [address] Social History Tobacco Use Types Packs/Day Years Used Date Smoking Tobacco: Never Assessed Comments Unknown Sex and Gender Information Value Date Recorded Sex Assigned at Not on file Legal Sex Female 6:09 PM CDT Gender Identity Not on file Sexual Orientation Not on file documented as of this encounter Miscellaneous Notes * Cerner Conversion Note - Historical ProviderMD - 09/11/2020 4:31 PM TACTICAL INTELLIGENCE OFFICER [place] Suicide Severity Rating Scale (C-SSRS) Entered On: 09/11/2020 16:58 EST Performed On: 09/11/2020 16:53 EST by Yesika Caicedo RN [place] Suicide Severity Rating Scale (C-SSRS) CSSRS Past [...] Visit [facility] Pulmonology - [address] [place] [address] Ben Barrios MD [address] [place] [address] documented as of this encounter Visit Diagnoses Not on filedocumented in this encounter Care Teams Condominium Property Manager Relationship Specialty Start Date End Date Amie Pena MD [address] [place] [address] [place] [address] PCP - General Family Medicine 10/31/22 04/08/23 Marvel Grayson MD [address] [place] [address] PCP - General Family Medicine 05/17/23 Marvel Grayson [address] [place] [address] Family Practice 04/09/23 documented as of this encounter
--- OUTSIDE RECORDS SUMMARY | 2025-08-06 11:53 | XMS_ITS | Encounter Summary ---
Author Organization [employer] ([place], [place], [place], [place], [place]) Address [address] [place] [address] Care Team Providers Care Supervisor Ordnance Truck Installation Name Role Phone Amie Pena MD Primary Care Provider [phone] Marvel Grayson MD Primary Care Provider [phone] Encounter Details Date Type Department Care Team (Late st Contact Info) Description 09/11/2020 Transcribed Document [facility] [place] [address] [place] [address] ProviderMik MD [address] [place] [address] Social History Tobacco Use Types Packs/Day Years Used Date Smoking Tobacco: Never Assessed Comments Unknown Sex and Gender Information Value Date Recorded Sex Assigned at Not on file Legal Sex Female 6:09 PM CDT Gender Identity Not on file Sexual Orientation Not on file documented as of this encounter Miscellaneous Notes * Cerner Conversion Note - Mik ProviderMD - 09/11/2020 4:31 PM PLASTIC MOLDER ED Assessment Entered On: 09/11/2020 16:57 EST Performed On: 09/11/2020 16:53 EST by Yesika Caicedo RN ED Quick Look Assessment Level of Consciousness : Alert, Awake Orientation : Oriented x 4 Skin Temperature : Warm Skin Description : Normal for ethnicity Yesika Caicedo RN - 09/11/2020 16:53 EST ED General-Functional Assess Preferred Communication Mode : Verbal Communication Barrier : None Primary Language : Guinean Any Spiritual/Cultural Needs or Requests : No [...] 09/11/2020 16:53 EST Electronically signed by [place] [facility] Conversion Interventional Technologist Cerner at 12/16/2022 10:45 AM CDT documented in this encounter Plan of Treatment Upcoming Encounters Date Type Department Care Team (Late st Contact Info) Description 11/03/2025 12:45 PM EST Office Visit [facility] Pulmonology - [address] [place] [address] Ben Barrios MD [address] [place] [address] documented as of this encounter Visit Diagnoses Not on filedocumented in this encounter Care Teams Supervisor Ordnance Truck Installation Relationship Specialty Start Date End Date Amie Pena MD [address] [place], [place] [address] [address] PCP - General Family Medicine 10/31/22 04/08/23 Marvel Grayson MD [facility] [address] [place] [address] PCP - General Family Medicine 05/17/23 Marvel Grayson [address] [place] [address] Family Practice 04/09/23 documented as of this encounter
--- OUTSIDE RECORDS SUMMARY | 2025-08-06 11:53 | XMS_ITS | Encounter Summary ---
Author Organization [employer] ([place], [place], [place], [place], [place]) Address [address] [place] [address] Care Team Providers Care Oral And Maxillofacial Pathologist Name Role Phone Amie Pena MD Primary Care Provider [phone] Marvel Grayson MD Primary Care Provider [phone] Encounter Details Date Type Department Care Team (Late st Contact Info) Description 09/11/2020 Transcribed Document [facility] [place] [address] [place] [address] ProviderMik MD [address] [place] [address] Social History Tobacco Use Types Packs/Day Years Used Date Smoking Tobacco: Never Assessed Comments Unknown Sex and Gender Information Value Date Recorded Sex Assigned at Not on file Legal Sex Female 6:09 PM CDT Gender Identity Not on file Sexual Orientation Not on file documented as of this encounter Miscellaneous Notes * Cerner Conversion Note - Mik ProviderMD - 09/11/2020 6:16 PM UNION REPRESENTATIVE ED Discharge Entered On: 09/11/2020 18:17 EST Performed On: 09/11/2020 18:16 EST by Amber Lobato RN Discharge Process Patient Disposition : [...] 09/11/2020 18:16 EST Electronically signed by [place], [facility] Conversion Fibre Optics Jointer Cerner at 12/16/2022 10:46 AM CDT documented in this encounter Plan of Treatment Upcoming Encounters Date Type Department Care Team (Late st Contact Info) Description 11/03/2025 12:45 PM EST Office Visit [facility] Pulmonology - [address] [place] [address] Ben Barrios MD [address] [place] [address] documented as of this encounter Visit Diagnoses Not on filedocumented in this encounter Care Teams Oral And Maxillofacial Pathologist Relationship Specialty Start Date End Date Amie Pena MD [address] [place] [address] [place] [address] PCP - General Family Medicine 10/31/22 04/08/23 Marvel Grayson MD [address] [place] [address] [place] [address] PCP - General Family Medicine 05/17/23 Marvel Grayson [address] [place] [address] Family Practice 04/09/23 documented as of this encounter
--- OUTSIDE RECORDS SUMMARY | 2025-08-06 11:53 | XMS_ITS | Encounter Summary ---
Author Organization [employer] ([place], [place], [place], [place], [place]) Address [address] [place] [address] Care Team Providers Care Check Writer Name Role Phone Amie Pena MD Primary Care Provider [phone] Marvel Grayson MD Primary Care Provider [phone] Encounter Details Date Type Department Care Team (Late st Contact Info) Description 04/11/2019 Transcribed Document [facility] [place] Family Medicine [address] [place] [address] ProviderMik MD [address] [place] [address] Social History Tobacco Use Types Packs/Day [...] mg = 2 Tab, PRN, Oral, Q6H [place] 5 mg-325 mg oral tablet 1 Tab, [...] nitrites and LE Electronically signed by [place], Karthikeyan Conversion Technical Support Representative Cerner at 12/16/2022 10:47 AM CDT documented in this encounter Plan of Treatment Upcoming Encounters Date Type Department Care Team (Late st Contact Info) Description 11/03/2025 12:45 PM EST Office Visit [facility] Pulmonology - [address] [place] [address] Ben Barrios MD [address] [place] [address] documented as of this encounter Visit Diagnoses Not on filedocumented in this encounter Care Teams Check Writer Relationship Specialty Start Date End Date Amie Pena MD [address] [place] [address] [place] [address] PCP - General Family Medicine 10/31/22 04/08/23 Marvel Grayson MD [address] [place] [address] [place] [address] PCP - General Family Medicine 05/17/23 Marvel Grayson [address] [place] [address] Family Practice 04/09/23 documented as of this encounter
--- OUTSIDE RECORDS SUMMARY | 2025-08-06 11:53 | XMS_ITS | Encounter Summary ---
Author Organization [employer] ([place], [place], [place], [place], [place]) Address [address] [place] [address] Care Team Providers Care Home Worker Name Role Phone Marbella Pena MD Primary Care Provider [phone] Marvel Grayson MD Primary Care Provider [phone] Encounter Details Date Type Department Care Team (Late st Contact Info) Description 09/11/2020 Transcribed Document [facility] [place] [address] [place] [address] ProviderMik MD [address] [place] [address] Social History Tobacco Use Types Packs/Day Years Used Date Smoking Tobacco: Never Assessed Comments Unknown Sex and Gender Information Value Date Recorded Sex Assigned at Not on file Legal Sex Female 6:09 PM CDT Gender Identity Not on file Sexual Orientation Not on file documented as of this encounter Miscellaneous Notes * Cerner Conversion Note - Mik ProviderMD - 09/11/2020 5:28 PM SWITCHBOARD OPERATOR HELPER Patient: PRATIK SHABAZZ Age: 49 years Sex: [...] at 40 Years. Removal of ovarian cyst ([id number]). I&D to left finger. Hysterectomy ([id number]).. Family history: No family history items have [...] EST Height Source Estimated Height Entry Format [place] Height/Length, BOLIVIAN (ft) 5 ft Height/Length BOLIVIAN 11 Inch CLINICALHEIGHT 180.34 cm [place] Body Weight 70.31 kg Weight Source, ED Critical estimated dosing weight Weight Entry Format [place] Weight Polish lb 200 lb CLINICALWEIGHT 90.91 kg Body [...] Triage: ED C-SSRS: ED Clinical Reconciliation: ED chief counsel: Future (On Hold) MY Digital Screen BILAT: . Impression and Plan Diagnosis Exacerbation of chronic back pain - Discharge, Emergency medicine, Medical Plan Condition: Unchanged. Disposition: Discharged Admit/Transfer/Discharge: Discharge (Order): Start: 09/11/2020 17:31 EST, Discharge to: Home. Prescriptions: Prescription Environmental Lawyer Pharmacy: Percocet 5/325 oral tablet (Prescribe): 1 Tab, Oral, Q4H, PRN: for pain, 10 Tab, 0 Refill(s). Patient was given the following educational materials: Chronic Back Pain. Follow up with: MARBELLA PENA Within 2 to 3 days; VU [facility]YS Within 3 to 5 days. Counseled: Patient. Electronically signed by Karthikeyan Bean Conversion Graphics Production Specialist Cerner at 12/16/2022 10:38 AM CDT documented in this encounter Plan of Treatment Upcoming Encounters Date Type Department Care Team (Late st Contact Info) Description 11/03/2025 12:45 PM EST Office Visit [facility] Pulmonology - [address] [place] [address] Ben Barrios MD [address] [place], [place] [id number] documented as of this encounter Visit Diagnoses Not on filedocumented in this encounter Care Teams Home Worker Relationship Specialty Start Date End Date Marbella Pena MD [address] [place] [address] PCP - General Family Medicine 10/31/22 04/08/23 Marvel Grayson MD [address] [place] [address] [place] [address] PCP - General Family Medicine 05/17/23 Marvel Grayson [address] [place] [address] Family Practice 04/09/23 documented as of this encounter
--- OUTSIDE RECORDS SUMMARY | 2025-08-06 11:53 | XMS_ITS | Encounter Summary ---
Author Organization [employer] ([place], [place], [place], [place], [place]) Address [address] [place] [address] Care Team Providers Care Take Off Man Name Role Phone Amie Pena MD Primary Care Provider [phone] Marvel Grayson MD Primary Care Provider [phone] Encounter Details Date Type Department Care Team (Late st Contact Info) Description 03/10/2019 Transcribed Document [facility] [place] Family Medicine [address] [place] [address] ProviderMik MD [address] [place] [address] Social History Tobacco Use Types Packs/Day [...] Mik ProviderMD - 03/10/2019 4:00 PM CDT [address] [address] PRATIK SHABAZZ :1970 Visit Time:03/10/2019 [...] When Within 2 to 3 days Where: [address] [place] [address] [address] [place] [id number] Business (1) Follow Up with FOLLOW UP [...] to contact our Patient Resource Center at [phone] for assistance establishing with a primary care physician. Follow Up with NO [facility]IM DR JOHANSEN When Within 2 to 3 days Allergies Cymbalta (suicidal) Haldol (Hives) Ultram Vraylar codeine (Respiratory depression) doxycycline penicillin Immunizations This Visit No Immunizations Found Medications What How Much When Instructions Next Dose New acetaminophen-hydrocodone ([place] 5 mg-325 mg oral tablet) 1 Tablet(s) [...] 11/16/2009 Document Revised: 01/25/2017 Document Reviewed: 04/27/2015 [employer] Patient Education ?? 2019 [employer]. Emergency Awareness and Preventative Care STROKE is [...] Assistance with quitting is available by contacting 3-093-RSPE-NOW. This is a free resource providing counseling, [...] was given the opportunity to ask questions. Patient/Spring Coverer Name: Patient/Spring Coverer Signature: Relationship to Patient: Clinician/Hospital Spring Coverer Signature: Please Provide a Telephone Number Where You Can Be Reached: Is it Permissible To Leave a Message? Date: Electronically signed by Karthikeyan Bean Conversion Aircraft Avionics Technician Maverick at 12/16/2022 10:43 AM CDT documented in this encounter Plan of Treatment Upcoming Encounters Date Type Department Care Team (Late st Contact Info) Description 11/03/2025 12:45 PM EST Office Visit [facility] Pulmonology - [address] [place] [address] Ben Barrios MD [address] [place], [place] [id number] documented as of this encounter Visit Diagnoses Not on filedocumented in this encounter Care Teams Take Off Man Relationship Specialty Start Date End Date Amie Pena MD [address] [place], [place] [address] [address] PCP - General Family Medicine 10/31/22 04/08/23 Marvel Grayson MD [address] [place] [address] [place] [address] PCP - General Family Medicine 05/17/23 Marvel Grayson [address] [place] [address] Family Practice 04/09/23 documented as of this encounter
--- OUTSIDE RECORDS SUMMARY | 2025-08-06 11:53 | XMS_ITS | Encounter Summary ---
Author Organization [employer] ([place], [place], [place], [place], [place]) Address [address] [place] [address] Care Team Providers Care Wildlife Manager Name Role Phone Amie Pena MD Primary Care Provider [phone] Marvel Grayson MD Primary Care Provider [phone] Encounter Details Date Type Department Care Team (Late st Contact Info) Description 09/11/2020 Transcribed Document [facility] [place] Family Medicine [address] [place] [address] ProviderMik MD [address] [place] [address] Social History Tobacco Use Types Packs/Day Years Used Date Smoking Tobacco: Never Assessed Comments Unknown Sex and Gender Information Value Date Recorded Sex Assigned at Not on file Legal Sex Female 6:09 PM CDT Gender Identity Not on file Sexual Orientation Not on file documented as of this encounter Miscellaneous Notes * Cerner Conversion Note - Historical ProviderMD - 09/11/2020 5:33 PM ENGRAVER BLOCK Electronically signed by Karthikeyan Bean Conversion Soft Work Wrapper Examiner Cerner at 12/16/2022 10:39 AM CDT documented in this encounter Plan of Treatment Upcoming Encounters Date Type Department Care Team (Late st Contact Info) Description 11/03/2025 12:45 PM EST Office Visit [facility] Pulmonology - [address] [place] [address] Ben Barrios MD [address] [place] [address] documented as of this encounter Visit Diagnoses Not on filedocumented in this encounter Care Teams Wildlife Manager Relationship Specialty Start Date End Date Amie Pena MD [address] [place] [address] PCP - General Family Medicine 10/31/22 04/08/23 Marvel Grayson MD [address] [facility] [place] [address] PCP - General Family Medicine 05/17/23 Marvel Grayson [address] [place] [address] Family Practice 04/09/23 documented as of this encounter
--- OUTSIDE RECORDS SUMMARY | 2025-08-06 11:54 | XMS_ITS | Encounter Summary ---
Author Organization [employer] ([place], [place], [place], [place], [place]) Address [address] [place] [address] Care Team Providers Care Pin Worker Name Role Phone Amie Pena MD Primary Care Provider [phone] Marvel Grayson MD Primary Care Provider [phone] Encounter Details Date Type Department Care Team (Late st Contact Info) Description 08/06/2020 Transcribed Document [facility] [place] [facility] [place] [address] ProviderMik MD [address] [place] [address] Social History Tobacco Use Types Packs/Day Years Used Date Smoking Tobacco: Never Assessed Comments Unknown Sex and Gender Information Value Date Recorded Sex Assigned at Not on file Legal Sex Female 6:09 PM CDT Gender Identity Not on file Sexual Orientation Not on file documented as of this encounter Miscellaneous Notes * Cerner Conversion Note - Mik ProviderMD - 08/06/2020 1:53 PM CHEMISTRY QUALITY CONTROL ANALYST ED Triage Entered On: 08/06/2020 14:04 EST Performed On: 08/06/2020 14:01 EST by RADHA BROOKS, FITNESS TECHNICIAN Triage Across the Room Chief Complaint : pt co back pain and right arm and shoulder pain after fall yesterday Triage Date/Time : 08/06/2020 14:01 EST RADHA BROOKS RN - 08/06/2020 14:01 EST DCP GENERIC CODE Tracking Acuity : 4 - Non - Urgent Tracking Group : [facility] ED Sebastián RADHA BROOKS RN - 08/06/2020 [...] 08/06/2020 14:04:52 EST) Problems(Active) Arthritis (SNOMED CT :4183301 ) Name of Problem: Arthritis ; Recorder: LASHANDA WEBER RN; Confirmation: Confirmed ; Classification: Patient Stated ; Code: [id number] ; Contributor System: PowerChart ; Last Updated: 02/13/2014 15:57 EDT ; Life Cycle Date: 02/13/2014 ; Life Cycle Status: Active ; Vocabulary: SNOMED CT Asthma (SNOMED CT :[id number] ) Name of Problem: Asthma ; Recorder: PANCHO SAEED RN; Confirmation: Confirmed ; Classification: Medical ; Code: [id number] ; Contributor System: PowerChart ; Last Updated: 02/12/2014 19:24 EDT ; Life Cycle Date: 11/28/2013 ; Life Cycle Status: Active ; Vocabulary: SNOMED CT Back pain (SNOMED CT :689221618 ) Name of Problem: Back pain ; Recorder: DENNISE ALVAREZ RN; Confirmation: Confirmed ; Classification: Medical ; Code: [id number] ; Contributor System: PowerChart ; Last Updated: 07/13/2014 14:28 EST ; Life Cycle Date: 07/13/2014 ; Life Cycle Status: Active ; Vocabulary: SNOMED CT COPD (chronic obstructive pulmonary disease) (SNOMED CT :74698740 ) Name of Problem: COPD (chronic obstructive pulmonary disease) ; Recorder: ALLA ZAPATA RN; Confirmation: Confirmed ; Classification: Medical ; Code: 99717457 ; Contributor System: [employer] ; Last Updated: 04/11/2019 13:15 EDT ; Life Cycle Date: 04/11/2019 ; Life Cycle Status: Active ; Vocabulary: SNOMED CT COPD exacerbation (SNOMED CT :428303068 ) Name of Problem: COPD exacerbation ; Recorder: YURIY CASEY; Confirmation: Confirmed ; Classification: Medical ; Code: 578665030 ; Contributor System: [employer]Chart ; Last Updated: 07/07/2019 11:33 EST ; Life Cycle Status: Active ; Responsible Provider: YURIY CASEY; Vocabulary: SNOMED CT Fibromyalgia (SNOMED CT :[id number] ) Name of Problem: Fibromyalgia ; Recorder: PANCHO SAEED RN; Confirmation: Confirmed ; Classification: Medical ; Code: [id number] ; Contributor System: PowerChart ; Last Updated: 02/12/2014 19:24 EDT ; Life Cycle Date: 11/28/2013 ; Life Cycle Status: Active ; Vocabulary: SNOMED CT H/O: hysterectomy (SNOMED CT :338418210 ) Name of Problem: H/O: hysterectomy ; Recorder: HOWARD HU RN; Confirmation: Confirmed ; Classification: Medical ; Code: [id number] ; Contributor System: PowerChart ; Last Updated: 12/29/2016 21:54 EDT ; Life Cycle Date: 12/29/2016 ; Life Cycle Status: Active ; Vocabulary: SNOMED CT heart burn (SNOMED CT :36390064 ) Name of Problem: heart burn ; Recorder: MARIAN YAO RN; Confirmation: Confirmed ; Classification: Medical ; Code: 44524375 ; Contributor System: PowerChart ; Last Updated: 01/20/2019 18:21 EDT ; Life Cycle Date: 03/29/2015 ; Life Cycle Status: Active ; Vocabulary: SNOMED CT Irritable bowel syndrome (SNOMED CT :28481650 ) Name of Problem: Irritable bowel syndrome ; Recorder: Yi Hardy Rn; Confirmation: Confirmed ; Classification: Medical ; Code: 34190175 ; Contributor System: PowerChart ; Last Updated: 04/18/2019 6:31 EDT ; Life Cycle Date: 04/18/2019 ; Life Cycle Status: Active ; Vocabulary: SNOMED CT Migraine (SNOMED CT :92315329 ) Name of Problem: Migraine ; Recorder: Yi Hardy Rn; Confirmation: Confirmed ; Classification: Medical ; Code: 25910023 ; Contributor System: PowerChart ; Last Updated: 04/18/2019 6:30 EDT ; Life Cycle Date: 04/18/2019 ; Life Cycle Status: Active ; Vocabulary: SNOMED CT Peripheral neuropathy (SNOMED CT :538541690 ) Name of Problem: Peripheral neuropathy ; Recorder: Yi Hardy Rn; Confirmation: Confirmed ; Classification: Medical ; Code: 178488550 ; Contributor System: PowerChart ; Last Updated: 04/18/2019 6:32 EDT ; Life Cycle Date: 04/18/2019 ; Life Cycle Status: Active ; Vocabulary: SNOMED CT PTSD (post-traumatic stress disorder) (SNOMED CT :68775684 ) Name of Problem: PTSD (post-traumatic stress disorder) ; Recorder: MARIAN YAO RN; Confirmation: Confirmed ; Classification: Medical ; Code: 62967649 ; Contributor System: [employer] ; Last Updated: 03/29/2015 21:19 EDT ; Life Cycle Date: 03/29/2015 ; Life Cycle Status: Active ; Vocabulary: SNOMED CT Sciatica (SNOMED CT :12385453 ) Name of Problem: Sciatica ; Recorder: TRISH MCMAHON RN; Confirmation: Confirmed ; Classification: Medical ; Code: 21859776 ; Contributor System: PowerChart ; Last Updated: 05/24/2015 17:38 EDT ; Life Cycle Date: 05/24/2015 ; Life Cycle Status: Active ; Vocabulary: SNOMED CT Diagnoses(Active) Fall Date: 08/06/2020 ; Diagnosis Type: Reason For Visit ; Confirmation: Complaint of ; Clinical Dx: Fall ; Classification: Medical ; Clinical Service: Emergency medicine ; Code: PNED ; Probability: 0 ; Diagnosis Code: [id number] ED Height and Weight Height Source : Estimated Height Entry Format : [place] Height, Feet : 5 ft(Converted to: 152 cm, 60 Inch) Height, Inches : 11 Inch(Converted to: 0 ft 11 Inch, 27.94 cm) Clinical Height : 180.34 cm Weight Source, ED : Critical estimated dosing weight Weight Entry Format : [place] Weight, Pounds : 200 lb Clinical Dosing Weight : 90.91 kg Body Surface Area (BSA) : 2.11 m2 Body Mass Index : 28 kg/m2 (HI) [place] Body Weight (IBW) : 70.31 kg RADHA BROOSK RN - 08/06/2020 14:01 EST documented in this encounter Plan of Treatment Upcoming Encounters Date Type Department Care Team (Late st Contact Info) Description 11/03/2025 12:45 PM EST Office Visit [facility] Pulmonology - [address] [place] [address] Ben Barrios MD [address] [place] [address] documented as of this encounter Visit Diagnoses Not on filedocumented in this encounter Care Teams Pin Worker Relationship Specialty Start Date End Date Amie Pena MD [address] [place] [address] PCP - General Family Medicine 10/31/22 04/08/23 Marvel Grayson MD [address] [place] [address] PCP - General Family Medicine 05/17/23 Marvel Grayson [address] [place] [address] Family Practice 04/09/23 documented as of this encounter
--- OUTSIDE RECORDS SUMMARY | 2025-08-06 11:54 | XMS_ITS | Encounter Summary ---
Author Organization [employer] ([place], [place], [place], [place], [place]) Address [address] [place] [address] Care Team Providers Care Superintendent Drilling Name Role Phone Amie Pena MD Primary Care Provider [phone] Marvel Grayson MD Primary Care Provider [phone] Encounter Details Date Type Department Care Team (Late st Contact Info) Description 08/06/2020 Transcribed Document [facility] [place] [facility] [place] [address] ProviderMik MD [address] [place] [address] Social History Tobacco Use Types Packs/Day Years Used Date Smoking Tobacco: Never Assessed Comments Unknown Sex and Gender Information Value Date Recorded Sex Assigned at Not on file Legal Sex Female 6:09 PM CDT Gender Identity Not on file Sexual Orientation Not on file documented as of this encounter Miscellaneous Notes * Cerner Conversion Note - Historical ProviderMD - 08/06/2020 6:13 PM SUPERINTENDENT FACTORY CR Spine Lumbar 2 or 3 Vws [...] Office Visit [facility] Pulmonology - [address] [place] [address] Bne Barrios MD [address] [place] [address] documented as of this encounter Visit Diagnoses Not on filedocumented in this encounter Care Teams Superintendent Drilling Relationship Specialty Start Date End Date Amie Pena MD [address] [place] [address] [place] [address] PCP - General Family Medicine 10/31/22 04/08/23 Marevl Grayson MD [address] [place] [address] [place] [address] PCP - General Family Medicine 05/17/23 Marvel Grayson [address] [place] [address] Family Practice 04/09/23 documented as of this encounter
--- OUTSIDE RECORDS SUMMARY | 2025-08-06 11:54 | XMS_ITS | Encounter Summary ---
Author Organization [employer] ([place], [place], [place], [place], [place]) Address [address] [place] [address] Care Team Providers Care Coat Hanger Shaper Machine Operator Name Role Phone Amie Pena MD Primary Care Provider [phone] Marvel Grayson MD Primary Care Provider [phone] Encounter Details Date Type Department Care Team (Late st Contact Info) Description 11/22/2018 Transcribed Document [facility] [place] [address] ProviderMik MD [address] [place] [address] Social History Tobacco Use Types Packs/Day [...] Historical ProviderMD - 11/22/2018 2:04 PM CDT [address] [place] [address] Patient Information Name: PRATIK SHABAZZ Age: 48 Years Date of : 1970 Arrival Time: 11/22/2018 12:43:00 Diagnosis Elevated blood pressure; Sciatica Primary Care Physician: ELENO, NOT LISTED Provider Information Primary Provider: BRAYDEN MEDEIROS Secondary Provider: PRATIK SHABAZZ has been given the following list of patient education materials, prescriptions and follow-up instructions: Follow-up Instructions: With: Address: When: [facility] [address] [facility] [place] [address] Business (1) Within 2 to 3 days With: Address: When: Patient Resource Center Within As needed Comments: Patient Has a primary care physician with [facility]. For assistance in the future with finding a new primary care physician please contact the Patient Resource Center at [phone]. Patient Education Materials: Sciatica Sciatica is pain, [...] these instructions at home: Medicines ??? Take djny-xze-bfldwea and prescription medicines only as told by [...] 08/14/2002 Document Revised: 01/23/2017 Document Reviewed: 04/28/2016 [employer] Patient Education ? 2017 [employer]. Allergies: Vraylar; Cymbalta; Ultram; Haldol; penicillin; doxycycline; codeine Medication Information: Prescription Display baclofen (baclofen 10 mg oral tablet) 1 Tab, Oral, Tab, TID, # 20 Tab, 0 Refill(s), Pharmacy: [facility] [id number] diclofenac (diclofenac potassium 50 mg oral tablet) 1 Tab, Oral, Tab, TID, PRN as needed for pain, # 20 Tab, 0 Refill(s), Pharmacy: [facility] [id number] methylPREDNISolone (Medrol Dosepak 4 mg oral tablet) 1 Packet, Oral, Tab, Daily, as directed on package labeling, # 21 Tab, 0 Refill(s), Pharmacy: [facility] [id number] Laboratory or Other Results This Visit (last charted value for your 11/22/2018 visit) No Laboratory or Other Results This Visit Medication Comment: Procedures: Laboratory Orders No laboratory orders were placed. Radiology Orders No radiology orders were placed. Cardiology Orders No cardiology orders were placed. This statement is to verify that PRATIK SHABAZZ was seen at [facility] on ,11/22/2018 14:04:05. This is [...] Assistance with quitting is available by contacting 9-443-KUIU-NOW. This is a free resource providing counseling, [...] Electronic Communications Privacy Act 18 U.S.C. ???Sections 8457-5854,?? and contain information intended for the specified [...] computer, smartphone, or tablet. Just go to [employer] to get started. Questions? Call . Acknowledgment [...] Office Visit [facility] Pulmonology - [address] [place] [address] Ben Barrios MD [address] [place] [address] documented as of this encounter Visit Diagnoses Not on filedocumented in this encounter Care Teams Coat Hanger Shaper Machine Operator Relationship Specialty Start Date End Date Amie Pena MD [address] [place] [address] [place] [address] PCP - General Family Medicine 10/31/22 04/08/23 Marvel Grayson MD [address] [place] [address] [place] [address] PCP - General Family Medicine 05/17/23 Marvel Grayson [address] [place] [address] Family Practice 04/09/23 documented as of this encounter
--- OUTSIDE RECORDS SUMMARY | 2025-08-06 11:54 | XMS_ITS | Encounter Summary ---
Author Organization [employer] ([place], [place], [place], [place], [place]) Address [address] [place] [address] Care Team Providers Care Medical Chief Technician Name Role Phone Amie Pena MD Primary Care Provider Marvel Grayson MD Primary Care Provider [phone] Encounter Details Date Type Department Care Team (Late st Contact Info) Description 08/06/2020 Transcribed Document [facility] [place] [facility] [place] [address] ProviderMik MD [address] [place] [address] Social History Tobacco Use Types Packs/Day Years Used Date Smoking Tobacco: Never Assessed Comments Unknown Sex and Gender Information Value Date Recorded Sex Assigned at Not on file Legal Sex Female 6:09 PM CDT Gender Identity Not on file Sexual Orientation Not on file documented as of this encounter Miscellaneous Notes * Cerner Conversion Note - Mik ProviderMD - 08/06/2020 1:53 PM RECREATIONAL COUNSELOR ED Assessment Entered On: 08/06/2020 14:05 EST Performed On: 08/06/2020 14:01 EST by RADHA BROOKS, ANALOG CIRCUIT DESIGNER Quick Look Assessment Level of Consciousness : [...] Office Visit [facility] Pulmonology - [address] [place] [address] Ben Barrios MD [address] [place] [address] documented as of this encounter Visit Diagnoses Not on filedocumented in this encounter Care Teams Medical Chief Technician Relationship Specialty Start Date End Date Amie Pena MD [address] [place] [address] [place] [address] PCP - General Family Medicine 10/31/22 04/08/23 Marvel Grayson MD [address] [place] [address] [place] [address] PCP - General Family Medicine 05/17/23 Marvel Grayson [address] [place] [address] Family Practice 04/09/23 documented as of this encounter
--- OUTSIDE RECORDS SUMMARY | 2025-08-06 11:54 | XMS_ITS | Encounter Summary ---
Author Organization [employer] ([place], [place], [place], [place], [place]) Address [address] [place] [address] Care Team Providers Care Water Taxi Driver Name Role Phone Amie Pena MD Primary Care Provider [phone] Marvel Grayson MD Primary Care Provider [phone] Encounter Details Date Type Department Care Team (Late st Contact Info) Description 11/28/2018 Transcribed Document [facility] Radiology [address] [place] [address] Provider, Karthikeyan Houser MD Social History Tobacco Use Types Packs/Day Years Used Date Smoking Tobacco: Never Assessed Comments Unknown Sex and Gender Information Value Date Recorded Sex Assigned at Not on file Legal Sex Female 6:09 PM CDT Gender Identity Not on file Sexual Orientation Not on file documented as of this encounter Miscellaneous Notes * Cerner Conversion Note - [facility] Mik Thorne MD - 11/28/2018 2:04 PM [...] Communication Barrier : None Primary Language : Prydeinig Any Spiritual/Cultural Needs or Requests : No [...] EST Office Visit [facility] Pulmonology - [address] [place] [address] Ben Barrios MD [address] [place] [address] documented as of this encounter Visit Diagnoses Not on filedocumented in this encounter Care Teams Water Taxi Driver Relationship Specialty Start Date End Date Amie Pena MD [address] [place] [address] [place] [address] PCP - General Family Medicine 10/31/22 04/08/23 Marvel Grayson MD [address] [place] [address] [place] [address] PCP - General Family Medicine 05/17/23 Marvel Grayson [address] [place] [address] Family Practice 04/09/23 documented as of this encounter
--- OUTSIDE RECORDS SUMMARY | 2025-08-06 11:54 | XMS_ITS | Encounter Summary ---
Author Organization [employer] ([place], [place], [place], [place], [place]) Address [address] [place] [address] Care Team Providers Care Perioperative Tech Name Role Phone Amie Pena MD Primary Care Provider [phone] Marvel Grayson MD Primary Care Provider [phone] Encounter Details Date Type Department Care Team (Late st Contact Info) Description 11/28/2018 Transcribed Document [facility] [place] [place] [address] ProviderMik MD [address] [place] [address] Social History Tobacco Use Types Packs/Day [...] Historical ProviderMD - 11/28/2018 3:01 PM CDT [place] [address] [place] [address] PERSON INFORMATION Name PRATIK SHABAZZ Age 48 Years 1970 Sex Female Language Libyan PCP PHY, UNKNOWN Marital Status Med Service Emergency Medicine Acct# Arrival 11/28/2018 13:04:00 Visit Reason GRIJALVA - Headache; HEADACHE Acuity 3 - Urgent LOS 000 01:57 Depart Date: 11/28/18 03:01 PM Address: [place] [address] Comment: PROVIDER INFORMATION Provider Role Assigned Unassigned EARL STACK, NURSE PRACT-EMERGENCY MEDICINE ED Physician 11/28/2018 13:29:51 Melonie Castaneda, HELP DESK SUPPORT Nurse 11/28/2018 13:43:13 DIAGNOSIS Generalized headache PHYS [...] spasm, # 30 Tab, 0 Refill(s), Pharmacy: [facility] Comment: DISCHARGE INFORMATION Discharge Disposition: Home Discharge Location: PATIENT EDUCATION INFORMATION Instructions: General Headache Without Cause Follow up: With: Address: When: LUBNA DANIELS [address] [place] [address], [address] [place], [place] [id number] [facility] (6) Within 2 to 3 days Comments: Please continue to monitor symptoms. If migraines continue follow up with dr. daniels. Return to ER as needed. Comment: Electronically signed by Karthikeyan Bean Conversion Liaison Inspection Laboratory Assistant Cerner at 12/16/2022 10:44 AM CDT documented in this encounter Plan of Treatment Upcoming Encounters Date Type Department Care Team (Late st Contact Info) Description 11/03/2025 12:45 PM EST Office Visit [facility] Pulmonology - [address] [place] [address] Ben Barrios MD [address] [place], [place] [address] documented as of this encounter Visit Diagnoses Not on filedocumented in this encounter Care Teams Perioperative Tech Relationship Specialty Start Date End Date Amie Pena MD [address] [place] [address] [place] [address] PCP - General Family Medicine 10/31/22 04/08/23 Marvel Grayson MD [address] [place] [address] [place] [address] PCP - General Family Medicine 05/17/23 Marvel Grayson [address] [place], [place] [address] Family Practice 04/09/23 documented as of this encounter
--- OUTSIDE RECORDS SUMMARY | 2025-08-06 11:54 | XMS_ITS | Encounter Summary ---
Author Organization [employer] ([place], [place], [place], [place], [place]) Address [address] [place] [address] Care Team Providers Care Coal Sample Tester Name Role Phone Amie Pena MD Primary Care Provider [phone] Marvel Grayson MD Primary Care Provider [phone] Encounter Details Date Type Department Care Team (Late st Contact Info) Description 03/10/2019 Transcribed Document [facility] [place] Family Medicine [address] [place] [address] ProviderMik MD [address] [place] [address] Social History Tobacco Use Types Packs/Day [...] Visit [facility] Pulmonology - [address] [place] [address] Ben Barrios MD [address] [place] [address] documented as of this encounter Visit Diagnoses Not on filedocumented in this encounter Care Teams Coal Sample Tester Relationship Specialty Start Date End Date Amie Pena MD [address] [facility] [place] [address] PCP - General Family Medicine 10/31/22 04/08/23 Marvel Grayson MD [address] [place] [address] PCP - General Family Medicine 05/17/23 Marvel Grayson [address] [place] [address] Family Practice 04/09/23 documented as of this encounter
--- OUTSIDE RECORDS SUMMARY | 2025-08-06 11:54 | XMS_ITS | Encounter Summary ---
Author Organization [employer] ([place], [place], [place], [place], [place]) Address [address] [place] [address] Care Team Providers Care Director Smb Sales Name Role Phone Amie Pena MD Primary Care Provider [phone] Marvel Grayson MD Primary Care Provider [phone] Encounter Details Date Type Department Care Team (Late st Contact Info) Description 11/22/2018 Transcribed Document [facility] [place] Family Medicine [address] [place] [address] ProviderMik MD [address] [place] [address] Social History Tobacco Use Types Packs/Day [...] Visit [facility] Pulmonology - [address] [place] [address] Ben Barrios MD [address] [place] [address] documented as of this encounter Visit Diagnoses Not on filedocumented in this encounter Care Teams Director Smb Sales Relationship Specialty Start Date End Date Amie Pena MD [address] [facility] [place] [address] PCP - General Family Medicine 10/31/22 04/08/23 Marvel Grayson MD [address] [place] [address] PCP - General Family Medicine 05/17/23 Marvel Grayson [address] [place] [address] Family Practice 04/09/23 documented as of this encounter
--- OUTSIDE RECORDS SUMMARY | 2025-08-06 11:54 | XMS_ITS | Encounter Summary ---
Author Organization [employer] ([place], [place], [place], [place], [place]) Address [address] [place] [address] Care Team Providers Care Information Services Manager Name Role Phone Amie Pena MD Primary Care Provider [phone] Marvel Grayson MD Primary Care Provider [phone] Encounter Details Date Type Department Care Team (Late st Contact Info) Description 11/22/2018 Transcribed Document [facility] [place] Family Medicine [address] [place] [address] ProviderMik MD [address] [place] [address] Social History Tobacco Use Types Packs/Day [...] On: 11/22/2018 12:57 EDT by Kimmie Avila MENTAL HEALTH CONSULTANT Triage Across the Room Triage Date/Time : 11/22/2018 12:57 EDT Chief Complaint : pt c/o lower back pain, left hip pain, going down leg, pt HX of chronic back pain, with therapy, took muscle relaxer yesterday with no relief, Kimmie Avila RN - 11/22/2018 12:57 EDT DCP GENERIC CODE Tracking Acuity : 4 - Non - Urgent Tracking Group : [facility] Kimmie Avila RN - 11/22/2018 [...] 11/22/2018 13:00:05 EDT) Problems(Active) Arthritis (SNOMED CT :9848435 ) Name of Problem: Arthritis ; Recorder: LASHANDA WEBER RN; Confirmation: Confirmed ; Classification: Patient Stated ; Code: [id number] ; Contributor System: TicketStumbler ; Last Updated: 02/13/2014 15:57 EDT ; Life Cycle Date: 02/13/2014 ; Life Cycle Status: Active ; Vocabulary: SNOMED CT Asthma (SNOMED CT :[id number] ) Name of Problem: Asthma ; Recorder: PANCHO SAEED RN; Confirmation: Confirmed ; Classification: Medical ; Code: [id number] ; Contributor System: PowerChart ; Last Updated: 02/12/2014 19:24 EDT ; Life Cycle Date: 11/28/2013 ; Life Cycle Status: Active ; Vocabulary: SNOMED CT Back pain (SNOMED CT :536947839 ) Name of Problem: Back pain ; Recorder: DENNISE ALVAREZ RN; Confirmation: Confirmed ; Classification: Medical ; Code: [id number] ; Contributor System: PowerChart ; Last Updated: 07/13/2014 14:28 EST ; Life Cycle Date: 07/13/2014 ; Life Cycle Status: Active ; Vocabulary: SNOMED CT Fibromyalgia (SNOMED CT :[id number] ) Name of Problem: Fibromyalgia ; Recorder: PANCHO SAEED RN; Confirmation: Confirmed ; Classification: Medical ; Code: [id number] ; Contributor System: PowerChart ; Last Updated: 02/12/2014 19:24 EDT ; Life Cycle Date: 11/28/2013 ; Life Cycle Status: Active ; Vocabulary: SNOMED CT H/O: hysterectomy (SNOMED CT :811322614 ) Name of Problem: H/O: hysterectomy ; Recorder: HOWARD HU RN; Confirmation: Confirmed ; Classification: Medical ; Code: [id number] ; Contributor System: PowerChart ; Last Updated: [...] Active PTSD (post-traumatic stress disorder) (SNOMED CT :29347376 ) Name of Problem: PTSD (post-traumatic stress disorder) ; Recorder: MARIAN YAO RN; Confirmation: Confirmed ; Classification: Medical ; Code: [id number] ; Contributor System: TicketStumbler ; Last Updated: 03/29/2015 21:19 EDT ; Life Cycle Date: 03/29/2015 ; Life Cycle Status: Active ; Vocabulary: SNOMED CT Sciatica (SNOMED CT :98580830 ) Name of Problem: Sciatica ; Recorder: TRISH MCMAHON RN; Confirmation: Confirmed ; Classification: Medical ; Code: [id number] ; Contributor System: TicketStumbler ; Last Updated: 05/24/2015 17:38 EDT ; Life Cycle Date: 05/24/2015 ; Life Cycle Status: Active ; Vocabulary: SNOMED CT Diagnoses(Active) Back pain Date: 11/22/2018 ; Diagnosis Type: Reason For Visit ; Confirmation: Complaint of ; Clinical Dx: Back pain ; Classification: Medical ; Clinical Service: Emergency medicine ; Code: PNED ; Probability: 0 ; Diagnosis Code: [id number] ED Height and Weight Height Source : Stated Height Entry Format : [place] Height, Feet : 5 ft(Converted to: 152 cm, 60 Inch) Height, Inches : 9 Inch(Converted to: 0 ft 9 Inch, 22.86 cm) Clinical Height : 175.26 cm Weight Source, ED : Critical estimated dosing weight Weight Entry Format : [place] Weight, Pounds : 203 lb Clinical Dosing Weight : 92.27 kg Body Surface Area (BSA) : 2.08 m2 Body Mass Index : 30 kg/m2 (HI) [place] Body Weight (IBW) : 65.73 kg Kimmie [...] Visit [facility] Pulmonology - [address] [place] [address] Ben Barrios MD [address] [place], [place] [address] documented as of this encounter Visit Diagnoses Not on filedocumented in this encounter Care Teams Information Services Manager Relationship Specialty Start Date End Date Amie Pena MD [address] [place], [place] [address] [address] PCP - General Family Medicine 10/31/22 04/08/23 Marvel Grayson MD [address] [place] [address] PCP - General Family Medicine 05/17/23 Marvel Grayson [address] [place] [address] Family Practice 04/09/23 documented as of this encounter
--- OUTSIDE RECORDS SUMMARY | 2025-08-06 11:54 | XMS_ITS | Encounter Summary ---
Author Organization [employer] ([place], [place], [place], [place], [place]) Address [address] [place] [address] Care Team Providers Care Leaf Stamper Name Role Phone Amie Pena MD Primary Care Provider [phone] Marvel Grayson MD Primary Care Provider [phone] Encounter Details Date Type Department Care Team (Late st Contact Info) Description 03/10/2019 Transcribed Document [facility] [place] Family Medicine [address] [place] [address] ProviderMik MD [address] [place] [address] Social History Tobacco Use Types Packs/Day [...] On: 03/10/2019 15:51 EDT by David Rivas, other wood processing machine operator Quick Look Assessment Level of Consciousness : Alert, Awake Affect/Behavior : Appropriate, Calm, Cooperative Orientation : Oriented x 4 Skin Temperature : Warm Skin Description : Normal for ethnicity, [place] David Rivas, Rn - 03/10/2019 15:51 EDT ED General-Functional Assess Information Obtained From : Patient Preferred Communication Mode : Verbal Communication Barrier : None Primary Language : Gibraltarian Any Spiritual/Cultural Needs or Requests : No [...] only Desires Tobacco Cessation Calc : 1 Dvaid Rivas Rn - 03/10/2019 15:51 EDT Social [...] form. Electronically signed by Karthikeyan Bean Conversion Java Web Services Developer Cerner at 12/16/2022 10:45 AM CDT documented in this encounter Plan of Treatment Upcoming Encounters Date Type Department Care Team (Late st Contact Info) Description 11/03/2025 12:45 PM EST Office Visit [facility] Pulmonology - [address] [place] [address] Ben Barrios MD [address] [place] [address] documented as of this encounter Visit Diagnoses Not on filedocumented in this encounter Care Teams Leaf Stamper Relationship Specialty Start Date End Date Amie Pena MD [address] [place] [address] [place] [address] PCP - General Family Medicine 10/31/22 04/08/23 Marvel Grayson MD [address] [place] [address] [place] [address] PCP - General Family Medicine 05/17/23 Marvel Grayson [address] [place] [address] Family Practice 04/09/23 documented as of this encounter
--- OUTSIDE RECORDS SUMMARY | 2025-08-06 11:54 | XMS_ITS | Encounter Summary ---
Author Organization [employer] ([place], [place], [place], [place], [place]) Address [address] [place] [address] Care Team Providers Care Credit Collections Clerk Name Role Phone Amie Pnea MD Primary Care Provider [phone] Marvel Grayson MD Primary Care Provider [phone] Encounter Details Date Type Department Care Team (Late st Contact Info) Description 11/28/2018 Transcribed Document [facility] [place] [facility] [address] ProviderMik MD [address] [place] [address] Social History Tobacco Use Types Packs/Day [...] Historical ProviderMD - 11/28/2018 3:01 PM CDT [address] [place] [address] Patient Information Name: PRATIK SHABAZZ Age: 48 Years Date of : 1970 Arrival Time: 11/28/2018 13:04:00 Diagnosis Generalized headache Primary Care Physician: FRANCISCO JOHANSEN Provider Information Primary Provider: EARL STACK, NURSE PRACT-EMERGENCY MEDICINE Secondary Provider: PRATIK SHABAZZ has been given the following list of patient education materials, prescriptions and follow-up instructions: Follow-up Instructions: With: Address: When: LUBNA ADAMASHLEY [address] [facility], [address] [place], [place] [address] Business (1) Within 2 to 3 days [...] with your condition: Managing pain ??? Take nvlg-mfl-hdhqwnk and prescription medicines only as told by [...] 08/20/2006 Document Revised: 01/25/2017 Document Reviewed: 12/13/2015 [employer] Patient Education ? 2017 [employer] Allergies: Vraylar; Cymbalta; Ultram; Haldol; penicillin; doxycycline; codeine Medication Information: Prescription Display cyclobenzaprine (cyclobenzaprine 10 mg oral tablet) 1 Tab, Oral, Tab, TID, PRN as needed for spasm, # 30 Tab, 0 Refill(s), Pharmacy: [facility] [address] Laboratory or Other Results This Visit (last charted value for your 11/28/2018 visit) No Laboratory or Other Results This Visit Medication Comment: Procedures: Laboratory Orders No laboratory orders were placed. Radiology Orders No radiology orders were placed. Cardiology Orders No cardiology orders were placed. This statement is to verify that PRATIK SHABAZZ was seen at [facility] Emergency Department on ,11/28/2018 15:01:11. [...] Assistance with quitting is available by contacting 6-514-SKQA-NOW. This is a free resource providing counseling, [...] Electronic Communications Privacy Act 18 U.S.C. ???Sections 8729-6628,?? and contain information intended for the specified [...] sure to sign up for the My [facility] patient portal, which gives you 26/03 access to your medical information ??? including these discharge instructions ??? using your computer, smartphone, or tablet. Just go to [facility] to get started. Questions? Call . Acknowledgment [...] Visit [facility] Pulmonology - [address] [place] [address] Ben Barrios MD [address] [place] [address] documented as of this encounter Visit Diagnoses Not on filedocumented in this encounter Care Teams Credit Collections Clerk Relationship Specialty Start Date End Date Amie Pena MD [address] [place] [address] [place] [address] PCP - General Family Medicine 10/31/22 04/08/23 Marvel Grayson MD [address] [place] [address] [place] [address] PCP - General Family Medicine 05/17/23 Marvel Grayson [address] [place] [address] Family Practice 04/09/23 documented as of this encounter
--- OUTSIDE RECORDS SUMMARY | 2025-08-06 11:54 | XMS_ITS | Encounter Summary ---
Author Organization [employer] ([place], [place], [place], [place], [place]) Address [address] [place] [address] Care Team Providers Care Powerhouse Mechanic Supervisor Name Role Phone Amie Pena MD Primary Care Provider [phone] Marvel Grayson MD Primary Care Provider [phone] Encounter Details Date Type Department Care Team (Late st Contact Info) Description 08/06/2020 Transcribed Document [facility] [place] [facility] [place] [address] ProviderMik MD [address] [place] [address] Social History Tobacco Use Types Packs/Day Years Used Date Smoking Tobacco: Never Assessed Comments Unknown Sex and Gender Information Value Date Recorded Sex Assigned at Not on file Legal Sex Female 6:09 PM CDT Gender Identity Not on file Sexual Orientation Not on file documented as of this encounter Miscellaneous Notes * Cerner Conversion Note - Historical ProviderMD - 08/06/2020 1:53 PM IMMIGRATION OFFICER [place] Suicide Severity Rating Scale (C-SSRS) Entered On: 08/06/2020 14:06 EST Performed On: 08/06/2020 14:06 EST by RADHA BROOKS RN Lind Suicide Severity Rating Scale (C-SSRS) CSSRS Past Month Wish to be : No CSSRS Past Month Suicidal Thoughts : No CSSRS Lifetime Suicide Behavior : No Suicide Severity Rating Score : 0 Suicide Severity Rating : No Additional Care Required at this time RADHA BROOKS RN - 08/06/2020 14:06 EST Electronically signed by [place] [facility] Conversion Online Program Coordinator Cerner at 12/16/2022 10:43 AM CDT documented in this encounter Plan of Treatment Upcoming Encounters Date Type Department Care Team (Late st Contact Info) Description 11/03/2025 12:45 PM EST Office Visit [facility] Pulmonology - [address] [place] [address] Ben Barrios MD [address] [place] [address] documented as of this encounter Visit Diagnoses Not on filedocumented in this encounter Care Teams Powerhouse Mechanic Supervisor Relationship Specialty Start Date End Date Amie Pena MD [address] [place] [address] [place] [address] PCP - General Family Medicine 10/31/22 04/08/23 Marvel Grayson MD [address] [place] [address] [place] [address] PCP - General Family Medicine 05/17/23 Marvel Grayson [address] [place] [address] Family Practice 04/09/23 documented as of this encounter
--- OUTSIDE RECORDS SUMMARY | 2025-08-06 11:54 | XMS_ITS | Encounter Summary ---
Author Organization [employer] ([place], [place], [place], [place], [place]) Address [address] [place] [address] Care Team Providers Care Hospice Care Consultant Name Role Phone Amie Pena MD Primary Care Provider Marvel Grayson MD Primary Care Provider [phone] Encounter Details Date Type Department Care Team (Late st Contact Info) Description 11/28/2018 Transcribed Document [facility] [place] [address] [place] [address] ProviderMik MD [address] [place] [address] Social History Tobacco Use Types Packs/Day [...] at 40 Years. Removal of ovarian cyst ([id number]). I&D to left finger., Reviewed as documented [...] EDT Height Source Stated Height Entry Format [place] Height/Length, BAHAMIAN (ft) 5 ft Height/Length [place] 10 Inch CLINICALHEIGHT 177.8 cm [place] Body Weight 68.02 kg Weight Source, ED Standing scale Weight Entry Format [place] Weight [place] lb 203 lb CLINICALWEIGHT 92.27 kg Body [...] ED Adult Triage: ED Clinical Reconciliation: ED accounting auditor: Pepcid: 20 mg, IV Push, 1-Time Saline [...] 14:53 EDT, Discharge to: Home. Prescriptions: Prescription Fiber Product Cutting Machine Operator Pharmacy: cyclobenzaprine 10 mg oral tablet [...] Office Visit [facility] Pulmonology - [address] [place] [id number] Ben Barrios MD [address] [place] [address] documented as of this encounter Visit Diagnoses Not on filedocumented in this encounter Care Teams Hospice Care Consultant Relationship Specialty Start Date End Date Amie Pena MD [facility] [place] [address] PCP - General Family Medicine 10/31/22 04/08/23 Marvel Grayson MD [address] [place] [address] PCP - General Family Medicine 05/17/23 Marvel Grayson [address] [place] [id number] Family Practice 04/09/23 documented as of this encounter
--- OUTSIDE RECORDS SUMMARY | 2025-08-06 11:54 | XMS_ITS | Clinical Summary ---
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 04/04/2023 Hyperlipidemia LDL [...] INFLUENZA VACCINE 04/03/2025 05/29/2023, , 07/07/2019 MAMMOGRAM 11/13/2025 11/14/2023, 03/0 03/2024, 03/03/2021, Additional history exists [...] AM EST Performed at: 01 - [facility] [address] [place], [place] [id number] Cake Decorator: Dhiraj Awad PhD, Phone: [phone] us Iona Craig PA-C LAB BLOOD ORDERABLES Final Result [facility] (AMBULATORY) [address] [place] [address], [place] [phone] [facility] [address] [place] [address], [place] [phone] from Last 3 Months or Most Recently Relevant to Health Maintenance Insurance [id number] [id number] [employer] [facility] Care Teams Adjunct Communications Faculty Member Relationship Specialty Start Date End Date Marvel Grayson MD [address] [place] [address] PCP - General Family Medicine 03/14/23
--- OUTSIDE RECORDS SUMMARY | 2025-08-06 11:54 | XMS_ITS | Encounter Summary ---
Author Organization [employer] ([place], [place], [place], [place], [place]) Address [address] [place] [address] Care Team Providers Care Rubber Liner Name Role Phone Amie Pena MD Primary Care Provider [phone] Marvel Grayson MD Primary Care Provider [phone] Encounter Details Date Type Department Care Team (Late st Contact Info) Description 09/25/2018 Transcribed Document [facility] [place] Family [place] [address] [place] [address] ProviderMik MD [address] [place] [address] Social History Tobacco Use Types Packs/Day Years Used Date Smoking Tobacco: Never Assessed Comments Unknown Sex and Gender Information Value Date Recorded Sex Assigned at Not on file Legal Sex Female 6:09 PM CDT Gender Identity Not on file Sexual Orientation Not on file documented as of this encounter Miscellaneous Notes * Cerner Conversion Note - Historical ProviderMD - 09/25/2018 4:52 PM RECORDS MANAGEMENT ASSOCIATE ED Triage Entered On: 09/25/2018 16:58 EST Performed On: 09/25/2018 16:55 EST by PANCHO SAEED ASSEMBLER SURGICAL GARMENT Triage Across the Room Triage Date/Time : 09/25/2018 16:52 EST Chief Complaint : sorethoat, no fever, nausea. PANCHO SAEED RN - 09/25/2018 16:55 EST DCP GENERIC CODE Tracking Acuity : 4 - Non - Urgent Tracking Group : [facility] ED Sebastián PANCHO SAEED RN - [...] 09/25/2018 16:58:08 EST) Problems(Active) Arthritis (SNOMED CT :0100692 ) Name of Problem: Arthritis ; Recorder: LASHANDA WEBER RN; Confirmation: Confirmed ; Classification: Patient Stated ; Code: [id number] ; Contributor System: Tagboard ; Last Updated: 02/13/2014 15:57 EDT ; Life Cycle Date: 02/13/2014 ; Life Cycle Status: Active ; Vocabulary: SNOMED CT Asthma (SNOMED CT :[id number] ) Name of Problem: Asthma ; Recorder: PANCHO SAEED RN; Confirmation: Confirmed ; Classification: Medical ; Code: [id number] ; Contributor System: Tagboard ; Last Updated: 02/12/2014 19:24 EDT ; Life Cycle Date: 11/28/2013 ; Life Cycle Status: Active ; Vocabulary: SNOMED CT Back pain (SNOMED CT :301227008 ) Name of Problem: Back pain ; Recorder: DENNISE ALVAREZ RN; Confirmation: Confirmed ; Classification: Medical ; Code: [id number] ; Contributor System: PowerChart ; Last Updated: 07/13/2014 14:28 EST ; Life Cycle Date: 07/13/2014 ; Life Cycle Status: Active ; Vocabulary: SNOMED CT Fibromyalgia (SNOMED CT :[id number] ) Name of Problem: Fibromyalgia ; Recorder: PANCHO SAEED RN; Confirmation: Confirmed ; Classification: Medical ; Code: [id number] ; Contributor System: PowerChart ; Last Updated: 02/12/2014 19:24 EDT ; Life Cycle Date: 11/28/2013 ; Life Cycle Status: Active ; Vocabulary: SNOMED CT H/O: hysterectomy (SNOMED CT :001053858 ) Name of Problem: H/O: hysterectomy ; Recorder: HOWARD HU RN; Confirmation: Confirmed ; Classification: Medical ; Code: [id number] ; Contributor System: PowerChart ; Last Updated: [...] Active PTSD (post-traumatic stress disorder) (SNOMED CT :64088346 ) Name of Problem: PTSD (post-traumatic stress disorder) ; Recorder: MARIAN YAO RN; Confirmation: Confirmed ; Classification: Medical ; Code: 37363236 ; Contributor System: PowerChart ; Last Updated: 03/29/2015 21:19 EDT ; Life Cycle Date: 03/29/2015 ; Life Cycle Status: Active ; Vocabulary: SNOMED CT Sciatica (SNOMED CT :70949285 ) Name of Problem: Sciatica ; Recorder: TRISH MCMAHON RN; Confirmation: Confirmed ; Classification: Medical ; Code: 39265852 ; Contributor System: Tagboard ; Last Updated: 05/24/2015 17:38 EDT ; Life Cycle Date: 05/24/2015 ; Life Cycle Status: Active ; Vocabulary: SNOMED CT Diagnoses(Active) Nausea Date: 09/25/2018 ; Diagnosis Type: Reason For Visit ; Confirmation: Complaint of ; Clinical Dx: Nausea ; Classification: Medical ; Clinical Service: Emergency medicine ; Code: PNED ; Probability: 0 ; Diagnosis Code: [id number] Throat pain - Adult Date: 09/25/2018 ; Diagnosis Type: Reason For Visit ; Confirmation: Complaint of ; Clinical Dx: Throat pain - Adult ; Classification: Medical ; Clinical Service: Emergency medicine ; Code: PNED ; Probability: 0 ; Diagnosis Code: [id number] ED Height and Weight Height Source : Stated Height Entry Format : [place] Height, Feet : 5 ft(Converted to: 152 cm, 60 Inch) Height, Inches : 1 Inch(Converted to: 0 ft 1 Inch, 2.54 cm) Clinical Height : 154.94 cm Weight Source, ED : Critical estimated dosing weight Weight Entry Format : [place] Weight, Pounds : 205 lb Clinical Dosing Weight : 93.18 kg Body Surface Area (BSA) : 1.91 m2 Body Mass Index : 38.8 kg/m2 (HI) [place] Body Weight (IBW) : 47.45 kg PANCHO SAEED RN - 09/25/2018 16:55 EST documented in this encounter Plan of Treatment Upcoming Encounters Date Type Department Care Team (Late st Contact Info) Description 11/03/2025 12:45 PM EST Office Visit [facility] Pulmonology - [address] [place] [address] Ben Barrios MD [address] [place] [address] documented as of this encounter Visit Diagnoses Not on filedocumented in this encounter Care Teams Rubber Liner Relationship Specialty Start Date End Date Amie Pena MD [address] [place] [address] [place] [address] PCP - General Family Medicine 10/31/22 04/08/23 Marvel Grayson MD [address] [place] [address] [place] [address] PCP - General Family Medicine 05/17/23 Marvel Grayson [address] [place], [place] [id number] Family Practice 04/09/23 documented as of this encounter
--- OUTSIDE RECORDS SUMMARY | 2025-08-06 11:54 | XMS_ITS | Encounter Summary ---
Author Organization [employer] ([place], [place], [place], [place], [place]) Address [address] [place] [address] Care Team Providers Care Automatic Fabric Cutter Name Role Phone Amie Pena MD Primary Care Provider [phone] Marvel Grayson MD Primary Care Provider [phone] Encounter Details Date Type Department Care Team (Late st Contact Info) Description 09/25/2018 Transcribed Document [facility] [place] [address] [place] [address] ProviderMik MD [address] [place] [address] Social History Tobacco Use Types Packs/Day Years Used Date Smoking Tobacco: Never Assessed Comments Unknown Sex and Gender Information Value Date Recorded Sex Assigned at Not on file Legal Sex Female 6:09 PM CDT Gender Identity Not on file Sexual Orientation Not on file documented as of this encounter Miscellaneous Notes * Cerner Conversion Note - Mik ProviderMD - 09/25/2018 4:52 PM SHOE REPAIR COBBLER ED Assessment Entered On: 09/25/2018 17:09 EST [...] Communication Barrier : None Primary Language : Malawian Any Spiritual/Cultural Needs or Requests : No [...] Office Visit [facility] Pulmonology - [address] [place] [address] Ben Barrios MD [address] [place] [address] documented as of this encounter Visit Diagnoses Not on filedocumented in this encounter Care Teams Automatic Fabric Cutter Relationship Specialty Start Date End Date Amie Pena MD [address] [facility] [place] [address] PCP - General Family Medicine 10/31/22 04/08/23 Marvel Grayson MD [address] [place] [address] PCP - General Family Medicine 05/17/23 Marvel Grayson [address] [place] [address] Family Practice 04/09/23 documented as of this encounter
--- OUTSIDE RECORDS SUMMARY | 2025-08-06 11:54 | XMS_ITS | Encounter Summary ---
Author Organization [employer] ([place], [place], [place], [place], [place]) Address [address] [place] [address] Care Team Providers Care Box Closing Machine Operator Name Role Phone Amie Pena MD Primary Care Provider [phone] Marvel Grayson MD Primary Care Provider [phone] Encounter Details Date Type Department Care Team (Late st Contact Info) Description 09/25/[address] [facility] [place] [facility] [place] [address] ProviderMik MD [address] [place] [address] Social History Tobacco Use Types Packs/Day Years Used Date Smoking Tobacco: Never Assessed Comments Unknown Sex and Gender Information Value Date Recorded Sex Assigned at Not on file Legal Sex Female 6:09 PM CDT Gender Identity Not on file Sexual Orientation Not on file documented as of this encounter Miscellaneous Notes * Cerner Conversion Note - Mik ProviderMD - 09/25/2018 5:36 PM DIAMOND DIE MAKER [facility] [address] [place] [address] PERSON INFORMATION Name PRATIK SHABAZZ Age 47 Years 1970 Sex Female Language Swazi PCP COLLEEN SHEPARD [facility] Marital Status Med Service Emergency Medicine Acct# Arrival 09/25/2018 16:52:00 Visit Reason Nausea; Throat pain - Adult; PT STATES POSS STREP Acuity 4 - Non - Urgent LOS 000 00:44 Depart Date: 09/25/18 05:35 PM Address: [address] [facility] [address] Comment: PROVIDER INFORMATION Provider Role Assigned Unassigned Tahira Coffey, general purchasing agent Nurse 09/25/2018 16:58:53 PAMELA IRELAND PA ED [...] Daily, # 5 Tab, 0 Refill(s), Pharmacy: [facility] [id number] Comment: DISCHARGE INFORMATION Discharge Disposition: Home Discharge Location: PATIENT EDUCATION INFORMATION Instructions: Tonsillitis Follow up: With: Address: When: COLLEEN SHEPARD [address] [place] [address], [address] [place] [address] [facility] () Within 2 to 3 days Comment: Electronically signed by Karthikeyan Bean Conversion Safety Instruction Police Officer Cerner at 12/16/2022 10:44 AM CDT documented in this encounter Plan of Treatment Upcoming Encounters Date Type Department Care Team (Late st Contact Info) Description 11/03/2025 12:45 PM EST Office Visit [facility] Pulmonology - [address] [place] [address] Ben Barrios MD [address] [place] [address] documented as of this encounter Visit Diagnoses Not on filedocumented in this encounter Care Teams Box Closing Machine Operator Relationship Specialty Start Date End Date Amie Pena MD [address] [place] [address] PCP - General Family Medicine 10/31/22 04/08/23 Marvel Grayson MD [address] [facility] [place] [address] PCP - General Family Medicine 05/17/23 Marvel Grayson [address] [place] [address] Family Practice 04/09/23 documented as of this encounter
--- OUTSIDE RECORDS SUMMARY | 2025-08-06 11:54 | XMS_ITS | Encounter Summary ---
Author Organization [employer] ([place], [place], [place], [place], [place]) Address [address] [place] [address] Care Team Providers Care Track Layer Head Name Role Phone Amie Pena MD Primary Care Provider [phone] Marvel Grayson MD Primary Care Provider [phone] Encounter Details Date Type Department Care Team (Late st Contact Info) Description 11/28/2018 Transcribed Document [facility] [place] Family [place] [address] [place] [address] ProviderMik MD [address] [place] [address] Social History Tobacco Use Types Packs/Day [...] 11/28/2018 15:00 EDT Electronically signed by [facility] Conversion Licensed Massage Therapist Cerner at 12/16/2022 10:40 AM CDT documented in this encounter Plan of Treatment Upcoming Encounters Date Type Department Care Team (Late st Contact Info) Description 11/03/2025 12:45 PM EST Office Visit [facility] Pulmonology - [address] [place] [phone] Ben Barrios MD [address] [place] [address] documented as of this encounter Visit Diagnoses Not on filedocumented in this encounter Care Teams Track Layer Head Relationship Specialty Start Date End Date Amie Pena MD [address] [place] [address] [place] [address] PCP - General Family Medicine 10/31/22 04/08/23 Marvel Grayson MD [address] [place] [address] PCP - General Family Medicine 05/17/23 Marvel Grayson [address] [place] [address] Family Practice 04/09/23 documented as of this encounter
--- OUTSIDE RECORDS SUMMARY | 2025-08-06 11:54 | XMS_ITS | Encounter Summary ---
Author Organization [employer] ([place], [place], [place], [place], [place]) Address [address] [place] [address] Care Team Providers Care Print Shop Chief Clerk Name Role Phone Amie Pena MD Primary Care Provider [phone] Marvel Grayson MD Primary Care Provider [phone] Encounter Details Date Type Department Care Team (Late st Contact Info) Description 09/25/2018 Transcribed Document [facility] [place] [facility] [address] ProviderMik MD [address] [place] [address] Social History Tobacco Use Types Packs/Day Years Used Date Smoking Tobacco: Never Assessed Comments Unknown Sex and Gender Information Value Date Recorded Sex Assigned at Not on file Legal Sex Female 6:09 PM CDT Gender Identity Not on file Sexual Orientation Not on file documented as of this encounter Miscellaneous Notes * Cerner Conversion Note - Historical ProviderMD - 09/25/2018 5:36 PM LEGAL SUMMER INTERN [place] [address] [place] [address] Patient Information Name: PRATIK SHABAZZ Age: 47 Years Date of : 1970 Arrival Time: 09/25/2018 16:52:00 Diagnosis Acute bacterial tonsillitis Primary Care Physician: COLLEEN SHEPARD [facility] Provider Information Primary Provider: PAMELA IRELAND Secondary Provider: PRATIK SHABAZZ has been given the following list of patient education materials, prescriptions and follow-up instructions: Follow-up Instructions: With: Address: When: COLLEEN SHEPARD [address] [facility], [address] [place] [id number] Business (1) Within 2 to 3 days [...] 05/30/2006 Document Revised: 01/25/2017 Document Reviewed: 02/06/2014 [employer] Interactive Patient Education ? 2017 [employer] Allergies: Vraylar; Cymbalta; Ultram; Haldol; penicillin; doxycycline; codeine Medication Information: Prescription Display azithromycin (azithromycin 500 mg oral tablet) 1 Tab, Oral, Tab, Daily, # 5 Tab, 0 Refill(s), Pharmacy: [facility] [employer] [facility] [id number] Laboratory or Other Results This Visit (last charted value for your 09/25/2018 visit) Microbiology 09/25/18 17:06:05 Rapid Strep Test: See Result Medication Comment: Procedures: Laboratory Orders Name Status .STREP A CONF Ordered RAPID STREP Completed Radiology Orders No radiology orders were placed. Cardiology Orders No cardiology orders were placed. This statement is to verify that PRATIK SHABAZZ was seen at [facility] on ,09/25/2018 17:36:53. This is [...] along the way. As a healthcare provider, [facility] recommends that you stop smoking. Assistance with quitting is available by contacting 8-067-ZVZO-NOW. This is a free resource providing counseling, [...] Electronic Communications Privacy Act 18 U.S.C. ???Sections 8641-2588,?? and contain information intended for the specified [...] Be sure to sign up for the [facility] patient portal, which gives you 26/03 access to your medical information ??? including these discharge instructions ??? using your computer, smartphone, or tablet. Just go to [employer] to get started. Questions? Call . Acknowledgment [...] Office Visit [facility] Pulmonology - [address] [place] [phone] Ben Barrios MD [address] [place] [address] documented as of this encounter Visit Diagnoses Not on filedocumented in this encounter Care Teams Print Shop Chief Clerk Relationship Specialty Start Date End Date Amie Pena MD [address] [place] [address] PCP - General Family Medicine 10/31/22 04/08/23 Marvel Grayson MD [address] [place] [place] [address] PCP - General Family Medicine 05/17/23 Marvel Grayson [address] [place] [address] Family Practice 04/09/23 documented as of this encounter
--- OUTSIDE RECORDS SUMMARY | 2025-08-06 11:54 | XMS_ITS | Encounter Summary ---
Author Organization [employer] ([place], [place], [place], [place], [place]) Address [address] [place] [address] Care Team Providers Care Grinder Gear Name Role Phone Amie Pena MD Primary Care Provider [phone] Marvel Grayson MD Primary Care Provider [phone] Encounter Details Date Type Department Care Team (Late st Contact Info) Description 11/22/2018 Transcribed Document [facility] [place] [facility] [address] ProviderMik MD [address] [place] [address] Social History Tobacco Use Types Packs/Day [...] Historical ProviderMD - 11/22/2018 2:04 PM CDT [place] [address] [place] [address] PERSON INFORMATION Name PRATIK SHABAZZ Age 48 Years 1970 Sex Female Language Equatorial Guinean PCP PHY, NOT LISTED Marital Status Med Service Emergency Medicine Acct# Arrival 11/22/2018 12:43:00 Visit Reason Back pain; SCIATICA OUT AGAIN Acuity 4 - Non - Urgent LOS 000 01:21 Depart Date: 11/22/18 02:03 PM Address: [place] [address] Comment: PROVIDER INFORMATION Provider Role Assigned Unassigned BRAYDEN MEDEIROS PA-[facility] ED Physician 11/22/2018 13:15:23 CATHIE ECHAVARRIA, VOCATIONAL NURSING INSTRUCTOR Nurse 11/22/2018 13:17:57 DIAGNOSIS Elevated blood pressure; [...] TID, # 20 Tab, 0 Refill(s), Pharmacy: [facility] [id number] diclofenac (diclofenac potassium 50 mg oral tablet) 1 Tab, Oral, Tab, TID, PRN as needed for pain, # 20 Tab, 0 Refill(s), Pharmacy: [facility] [id number] methylPREDNISolone (Medrol Dosepak 4 mg oral tablet) 1 Packet, Oral, Tab, Daily, as directed on package labeling, # 21 Tab, 0 Refill(s), Pharmacy: [facility] [id number] Comment: DISCHARGE INFORMATION Discharge Disposition: Home Discharge Location: PATIENT EDUCATION INFORMATION Instructions: Sciatica Follow up: With: Address: When: [facility] [address] [facility], [address] [place] [address] Business (1) Within 2 to 3 days With: Address: When: Patient Resource Center Within As needed Comments: Patient Has a primary care physician with [facility] For assistance in the future with finding a new primary care physician please contact the Patient Resource Center at [phone]. Comment: documented in this encounter Plan of Treatment Upcoming Encounters Date Type Department Care Team (Late st Contact Info) Description 11/03/2025 12:45 PM EST Office Visit [facility] Pulmonology - [address] [place] [address] Ben Barrios MD [address] [place] [address] documented as of this encounter Visit Diagnoses Not on filedocumented in this encounter Care Teams Grinder Gear Relationship Specialty Start Date End Date Amie Pena MD [address] [place] [address] [place] [address] PCP - General Family Medicine 10/31/22 04/08/23 Marvel Grayson MD [address] [place] [address] [place] [address] PCP - General Family Medicine 05/17/23 Marvel Grayson [address] [place], [place] [address] Family Practice 04/09/23 documented as of this encounter
--- OUTSIDE RECORDS SUMMARY | 2025-08-06 11:54 | XMS_ITS | Encounter Summary ---
Author Organization [employer] ([place], [place], [place], [place], [place]) Address [address] [place] [address] Care Team Providers Care Etl Software Engineer Name Role Phone Amie Pena MD Primary Care Provider [phone] Marvel Grayson MD Primary Care Provider [phone] Encounter Details Date Type Department Care Team (Late st Contact Info) Description 08/06/2020 Transcribed Document [facility] [place] Family Medicine [address] [place] [address] ProviderMik MD [address] [place] [address] Social History Tobacco Use Types Packs/Day [...] Mik Thorne MD - 08/06/2020 2:59 PM BEHAVIOR CLINICIAN ED Discharge Entered On: 08/06/2020 15:00 EST Performed On: 08/06/2020 14:59 EST by RADHA BROOKS, look out tower fire watcher Process Patient Disposition : Discharge Personal Belongings [...] - 08/06/2020 14:59 EST Electronically signed by [facility], [facility] Conversion Gas Station Attendant Cerner at 12/16/2022 10:44 AM CDT documented in this encounter Plan of Treatment Upcoming Encounters Date Type Department Care Team (Late st Contact Info) Description 11/03/2025 12:45 PM EST Office Visit [facility] Pulmonology - [address] [place] [address] Ben Barrios MD [address] [place] [address] documented as of this encounter Visit Diagnoses Not on filedocumented in this encounter Care Teams Etl Software Engineer Relationship Specialty Start Date End Date Amie Pena MD [address] [place] [address] [place] [address] PCP - General Family Medicine 10/31/22 04/08/23 Marvel Grayson MD [address] [place] [address] PCP - General Family Medicine 05/17/23 Marvel Grayson [address] [place] [address] Family Practice 04/09/23 documented as of this encounter
--- OUTSIDE RECORDS SUMMARY | 2025-08-06 11:54 | XMS_ITS | Encounter Summary ---
Author Organization [employer] ([place], [place], [place], [place], [place]) Address [address] [place] [address] Care Team Providers Care Enterprise Systems Administrator Name Role Phone Amie Pena MD Primary Care Provider [phone] Marvel Grayson MD Primary Care Provider [phone] Encounter Details Date Type Department Care Team (Late st Contact Info) Description 11/28/2018 Transcribed Document [facility] [place] [address] [place] [address] ProviderMik MD [address] [place] [address] Social History Tobacco Use Types Packs/Day [...] Office Visit [facility] Pulmonology - [address] [place] [address] Ben Barrios MD [address] [place] [address] documented as of this encounter Visit Diagnoses Not on filedocumented in this encounter Care Teams Enterprise Systems Administrator Relationship Specialty Start Date End Date Amie Pena MD [address] [facility] [place] [address] PCP - General Family Medicine 10/31/22 04/08/23 Marvel Grayson MD [address] [place] [address] PCP - General Family Medicine 05/17/23 Marvel Graysno [address] [place] [address] Family Practice 04/09/23 documented as of this encounter
--- OUTSIDE RECORDS SUMMARY | 2025-08-06 11:54 | XMS_ITS | Encounter Summary ---
Author Organization [employer] ([place], [place], [place], [place], [place]) Address [address] [place] [address] Care Team Providers Care Limousine And Hearse Upholsterer Name Role Phone Amie Pena MD Primary Care Provider [phone] Marvel Grayson MD Primary Care Provider [phone] Encounter Details Date Type Department Care Team (Late st Contact Info) Description 11/28/2018 Transcribed Document [facility] Family Medicine [address] [place] [address] ProviderMik MD [address] [place] [address] Social History Tobacco Use Types Packs/Day [...] On: 11/28/2018 13:19 EDT by CATHIE ECHAVARRIA SPORTS EQUIPMENT RACKER Triage Across the Room Triage Date/Time : 11/28/2018 13:19 EDT Chief Complaint : PT states, I have a migraine , started getting floaters in eyes last week w/o pain but pain started last night, resp even and unlabored CATHIE ECHAVARRIA RN - 11/28/2018 13:19 EDT DCP GENERIC CODE Tracking Acuity : 3 - Urgent Tracking Group : [facility] CATHIE ECHAVARRIA RN - [...] Side Effect ; Updated By: ALBERTO PHELPS, Xean; Reviewed Date: 11/28/2018 13:22 EDT Cymbalta Estimated Onset Date: Unspecified ; Reactions: suicidal ; Created By: Ariella Hammer Rn; Reaction Status: Active ; Category: Drug ; Substance: Cymbalta ; Type: Allergy ; Updated By: Ariella Hammer Rn; Reviewed Date: 11/28/2018 13:22 EDT doxycycline Estimated Onset Date: Unspecified ; Created By: RACHELLE ELA Rn; Reaction Status: Active ; Category: Drug [...] 11/28/2018 13:22:54 EDT) Problems(Active) Arthritis (SNOMED CT :9707729 ) Name of Problem: Arthritis ; Recorder: LASHANDA WEBER RN; Confirmation: Confirmed ; Classification: Patient Stated ; Code: [id number] ; Contributor System: [employer] ; Last Updated: 02/13/2014 15:57 EDT ; Life Cycle Date: 02/13/2014 ; Life Cycle Status: Active ; Vocabulary: SNOMED CT Asthma (SNOMED CT :[id number] ) Name of Problem: Asthma ; Recorder: PANCHO SAEED RN; Confirmation: Confirmed ; Classification: Medical ; Code: [id number] ; Contributor System: [employer] ; Last Updated: 02/12/2014 19:24 EDT ; Life Cycle Date: 11/28/2013 ; Life Cycle Status: Active ; Vocabulary: SNOMED CT Back pain (SNOMED CT :101602496 ) Name of Problem: Back pain ; Recorder: DENNISE ALVAREZ RN; Confirmation: Confirmed ; Classification: Medical ; Code: [id number] ; Contributor System: [employer] ; Last Updated: 07/13/2014 14:28 EST ; Life Cycle Date: 07/13/2014 ; Life Cycle Status: Active ; Vocabulary: SNOMED CT Fibromyalgia (SNOMED CT :[id number] ) Name of Problem: Fibromyalgia ; Recorder: PANCHO SAEED RN; Confirmation: Confirmed ; Classification: Medical ; Code: [id number] ; Contributor System: [employer] ; Last Updated: 02/12/2014 19:24 EDT ; Life Cycle Date: 11/28/2013 ; Life Cycle Status: Active ; Vocabulary: SNOMED CT H/O: hysterectomy (SNOMED CT :689172620 ) Name of Problem: H/O: hysterectomy ; Recorder: HOWARD HU RN; Confirmation: Confirmed ; Classification: Medical ; Code: [id number] ; Contributor System: [employer] ; Last Updated: [...] Active PTSD (post-traumatic stress disorder) (SNOMED CT :26168641 ) Name of Problem: PTSD (post-traumatic stress disorder) ; Recorder: MARIAN YAO RN; Confirmation: Confirmed ; Classification: Medical ; Code: [id number] ; Contributor System: [employer] ; Last Updated: 03/29/2015 21:19 EDT ; Life Cycle Date: 03/29/2015 ; Life Cycle Status: Active ; Vocabulary: SNOMED CT Sciatica (SNOMED CT :50824867 ) Name of Problem: Sciatica ; Recorder: TRISH MCMAHON RN; Confirmation: Confirmed ; Classification: Medical ; Code: [id number] ; Contributor System: [employer] ; Last Updated: 05/24/2015 17:38 EDT ; Life Cycle Date: 05/24/2015 ; Life Cycle Status: Active ; Vocabulary: SNOMED CT Diagnoses(Active) GRIJALVA - Headache Date: 11/28/2018 ; Diagnosis Type: Reason For Visit ; Confirmation: Complaint of ; Clinical Dx: GRIJALVA - Headache ; Classification: Medical ; Clinical Service: Emergency medicine ; Code: PNED ; Probability: 0 ; Diagnosis Code: [id number] ED Height and Weight Height Source : Stated Height Entry Format : [place] Height, Feet : 5 ft(Converted to: 152 cm, 60 Inch) Height, Inches : 10 Inch(Converted to: 0 ft 10 Inch, 25.40 cm) Clinical Height : 177.8 cm Weight Source, ED : Standing scale Weight Entry Format : [place] Weight, Pounds : 203 lb Clinical Dosing Weight : 92.27 kg Body Surface Area (BSA) : 2.1 m2 Body Mass Index : 29.2 kg/m2 (HI) [place] Body Weight (IBW) : 68.02 kg CATHIE ECHAVARRIA RN - 11/28/2018 13:19 EDT ED Influenza/Pneumoccocal Vaccine Influenza Immunization, Current Season : No Previous Vaccines from Immunization Schedule : No qualifying data available. CATHIE ECHAVARRIA RN - 11/28/2018 13:19 EDT Electronically signed by Karthikeyan Bean Conversion Automated Logistics Specialist Cerner at 12/16/2022 10:42 AM CDT documented in this encounter Plan of Treatment Upcoming Encounters Date Type Department Care Team (Late st Contact Info) Description 11/03/2025 12:45 PM EST Office Visit [facility] Pulmonology - [address] [place] [address] Ben Barrios MD [address] [place] [address] documented as of this encounter Visit Diagnoses Not on filedocumented in this encounter Care Teams Limousine And Hearse Upholsterer Relationship Specialty Start Date End Date Amie Pena MD [address] [place] [address] [place] [address] PCP - General Family Medicine 10/31/22 04/08/23 Marvel Grayson MD [address] [place] [address] [place] [address] PCP - General Family Medicine 05/17/23 Marvel Grayson [address] [place], [place] [address] Family Practice 04/09/23 documented as of this encounter
--- OUTSIDE RECORDS SUMMARY | 2025-08-06 11:54 | XMS_ITS | Encounter Summary ---
Author Organization [employer] ([place], [place], [place], [place], [place]) Address [address] [place] [address] Care Team Providers Care Automotive Sales Professional Name Role Phone Amie Pena MD Primary Care Provider [phone] Marvel Grayson MD Primary Care Provider [phone] Encounter Details Date Type Department Care Team (Late st Contact Info) Description 09/25/2018 Transcribed Document [facility] [place] Family Medicine [address] [place] [address] ProviderMik MD [address] [place] [address] Social History Tobacco Use Types Packs/Day Years Used Date Smoking Tobacco: Never Assessed Comments Unknown Sex and Gender Information Value Date Recorded Sex Assigned at Not on file Legal Sex Female 6:09 PM CDT Gender Identity Not on file Sexual Orientation Not on file documented as of this encounter Miscellaneous Notes * Cerner Conversion Note - Historical ProviderMD - 09/25/2018 5:29 PM COMPUTER BUILDER Electronically signed by [place] [facility] Conversion Trash Collector Truck Driver Seanner at 12/16/2022 10:41 AM CDT documented in this encounter Plan of Treatment Upcoming Encounters Date Type Department Care Team (Late st Contact Info) Description 11/03/2025 12:45 PM EST Office Visit [facility] Pulmonology - [address] [place] [address] Ben Barrios MD [address] [place] [address] documented as of this encounter Visit Diagnoses Not on filedocumented in this encounter Care Teams Automotive Sales Professional Relationship Specialty Start Date End Date Amie Pena MD [address] [facility] [place] [address] PCP - General Family Medicine 10/31/22 04/08/23 Marvel Grayson MD [address] [place] [address] PCP - General Family Medicine 05/17/23 Marvel Grayson [address] [place] [address] Family Practice 04/09/23 documented as of this encounter
--- OUTSIDE RECORDS SUMMARY | 2025-08-06 11:54 | XMS_ITS | Encounter Summary ---
Author Organization [employer] ([place], [place], [place], [place], [place]) Address [address] [place] [address] Care Team Providers Care Economic Historian Name Role Phone Amie Pena MD Primary Care Provider [phone] Marvel Grayson MD Primary Care Provider [phone] Encounter Details Date Type Department Care Team (Late st Contact Info) Description 08/06/2020 Transcribed Document [facility] [place] [address] [place] [address] ProviderMik MD [address] [place] [address] Social History Tobacco Use Types Packs/Day Years Used Date Smoking Tobacco: Never Assessed Comments Unknown Sex and Gender Information Value Date Recorded Sex Assigned at Not on file Legal Sex Female 6:09 PM CDT Gender Identity Not on file Sexual Orientation Not on file documented as of this encounter Miscellaneous Notes * Cerner Conversion Note - Historical ProviderMD - 08/06/2020 2:48 PM HEALTH AND SAFETY INSTRUCTOR Electronically signed by [place] [facility] Conversion Golf Club Facer Seanner at 12/16/2022 10:48 AM CDT documented in this encounter Plan of Treatment Upcoming Encounters Date Type Department Care Team (Late st Contact Info) Description 11/03/2025 12:45 PM EST Office Visit [facility] Pulmonology - [address] [place] [address] Ben Barrios MD [address] [place] [address] documented as of this encounter Visit Diagnoses Not on filedocumented in this encounter Care Teams Economic Historian Relationship Specialty Start Date End Date Amie Pena MD [address] [facility] [place] [address] PCP - General Family Medicine 10/31/22 04/08/23 Marvel Grayson MD [address] [place] [address] PCP - General Family Medicine 05/17/23 Marvel Grayson [address] [place] [address] Family Practice 04/09/23 documented as of this encounter
--- OUTSIDE RECORDS SUMMARY | 2025-08-06 11:54 | XMS_ITS | Encounter Summary ---
Author Organization [employer] ([place], [place], [place], [place], [place]) Address [address] [place] [address] Care Team Providers Care Blood Bank Business Manager Name Role Phone Amie Pena MD Primary Care Provider [phone] Marvel Grayson MD Primary Care Provider [phone] Encounter Details Date Type Department Care Team (Late st Contact Info) Description 11/22/2018 Transcribed Document [facility] [place] Family Medicine [address] [place] [address] ProviderMik MD [address] [place] [address] Social History Tobacco Use Types Packs/Day [...] - 11/22/2018 14:02 EDT Electronically signed by [facility], [facility] Conversion Cafeteria Cashier Cerner at 12/16/2022 10:43 AM CDT documented in this encounter Plan of Treatment Upcoming Encounters Date Type Department Care Team (Late st Contact Info) Description 11/03/2025 12:45 PM EST Office Visit [facility] Pulmonology - [address] [place] [address] Ben Barrios MD [address] [place] [address] documented as of this encounter Visit Diagnoses Not on filedocumented in this encounter Care Teams Blood Bank Business Manager Relationship Specialty Start Date End Date Amie Pena MD [address] [place] [address] [place] [address] PCP - General Family Medicine 10/31/22 04/08/23 Marvel Grayson MD [address] [place] [address] PCP - General Family Medicine 05/17/23 Marvel Grayson [address] [place] [address] Family Practice 04/09/23 documented as of this encounter
--- OUTSIDE RECORDS SUMMARY | 2025-08-06 11:54 | XMS_ITS | Encounter Summary ---
Author Organization [email or web address] ([place], [place], [place], [place], [place]) Address [address] [place] [address] Care Team Providers Care Parking Worker Name Role Phone Amie Pena MD Primary Care Provider [phone] Marvel Grayson MD Primary Care Provider [phone] Encounter Details Date Type Department Care Team (Late st Contact Info) Description 09/25/2018 Transcribed Document [facility] [place] Family Medicine [address] [place] [address] ProviderMik MD [address] [place] [address] Social History Tobacco Use Types Packs/Day Years Used Date Smoking Tobacco: Never Assessed Comments Unknown Sex and Gender Information Value Date Recorded Sex Assigned at Not on file Legal Sex Female 6:09 PM CDT Gender Identity Not on file Sexual Orientation Not on file documented as of this encounter Miscellaneous Notes * Cerner Conversion Note - Mik ProviderMD - 09/25/2018 5:36 PM PLUSH WEAVER ED Discharge Entered On: 09/25/2018 17:36 EST [...] 09/25/2018 17:36 EST Electronically signed by [place] [facility] Conversion Trim Technician Cerner at 12/16/2022 10:39 AM CDT documented in this encounter Plan of Treatment Upcoming Encounters Date Type Department Care Team (Late st Contact Info) Description 11/03/2025 12:45 PM EST Office Visit [facility] Pulmonology - [address] [place] [address] Ben Barrios MD [address] [place] [address] documented as of this encounter Visit Diagnoses Not on filedocumented in this encounter Care Teams Parking Worker Relationship Specialty Start Date End Date Amie Pena MD [address] [place], [place] [address] [address] PCP - General Family Medicine 10/31/22 04/08/23 Marvel Grayson MD [address] [place] [address] [place] [address] PCP - General Family Medicine 05/17/23 Marvel Grayson [address] [place] [address] Family Practice 04/09/23 documented as of this encounter
--- OUTSIDE RECORDS SUMMARY | 2025-08-06 11:54 | XMS_ITS | Encounter Summary ---
Author Organization [employer] ([place], [place], [place], [place], [place]) Address [address] [place] [address] Care Team Providers Care Interlocking And Signal Mechanic Name Role Phone Amie Pena MD Primary Care Provider [phone] Marvel Grayson MD Primary Care Provider [phone] Encounter Details Date Type Department Care Team (Late st Contact Info) Description 11/28/2018 Transcribed Document [facility] [place] Family Medicine [address] [place] [address] ProviderMik MD [address] [place] [address] Social History Tobacco Use Types Packs/Day [...] of the form. Electronically signed by [place], [facility] Conversion Tarper Cerner at 12/16/2022 10:37 AM CDT documented in this encounter Plan of Treatment Upcoming Encounters Date Type Department Care Team (Late st Contact Info) Description 11/03/2025 12:45 PM EST Office Visit [facility] Pulmonology - [address] [place] [address] Ben Barrios MD [address] [place] [address] documented as of this encounter Visit Diagnoses Not on filedocumented in this encounter Care Teams Interlocking And Signal Mechanic Relationship Specialty Start Date End Date Amei Pena MD [address] [place] [address] [place], [place] [id number] PCP - General Family Medicine 10/31/22 04/08/23 Marvel Grayson MD [address] [place] [address] [place] [address] PCP - General Family Medicine 05/17/23 Marvel Grayson [address] [place] [address] Family Practice 04/09/23 documented as of this encounter
== END 2025-08-06 23:59 | disposition home or self-care (01) ==
LOC: RAD 11:24
PROVIDERS: PCP Internal Medicine; Visit Provider Internal Medicine
DX: M51.86 Other intervertebral disc disorders, lumbar region (principal); M25.78 Osteophyte, vertebrae; M51.369 Other intervertebral disc degeneration, lumbar region without mention of lumbar back pain or lower extremity pain; Z98.1 Arthrodesis status
CPT/HCPCS: 72100